=== PATIENT | female | born 1940 | race Caucasian/White ===

== ENCOUNTER 2016-12-07 09:05 | Emergency (ER) | payer MEDICARE, OTHER ==
[~2016-12-07] VITALS: Ht 154.9 cm; Wt 72.6 kg
[~2016-12-07 09:05] MED LIST: ACET325T9 PO; ALLO100T PO; ASPI-482 PO; ASPI325T11 PO; CARV6.252 PO; FERR325T58 PO; FLUT1DIS3 IH; FURO40TA4 PO; IPRA3AMP IH; LINA5TAB PO; LISI-334 PO; LISI10TA2 PO; LISI30TA4 PO; METF500T4 PO; OMEP20TA PO; PRAV10TA2 PO; PRED-220 PO; SUCR1TAB29 PO; advair; nebulizer
--- NOTE | 2016-12-07 09:30 | PHYS DOC ---
Past Medical History Past Medical History: CHF, COPD, High Cholesterol, Hypertension Past Surgical History: No Surgical History Alcohol Use: None Drug Use: None Adult General Chief Complaint Chief Complaint: SKIN PROBLEM HPI HPI Patient is a 76 year old female who presents emergency Department today for which she states is a yeast infection to her skin under her breast, abdominal folds in between her thighs. Patient states this is been ongoing and progressive over the past 2-1/2-3 weeks. She denies using any antifungal powder. She denies taking any antifungal's. She denies antibiotic use within the past 90 days. She denies any history of recurrent skin infections. She denies fevers, chills, myalgias or arthralgias. Patient has COPD and which she is oxygen dependent. She denies any shortness of breath, chest pain, exertional dyspnea, orthopnea or PND. Review of Systems Review of Systems Constitutional: Denies fever or chills [] Eyes: Denies change in visual acuity, redness, or eye pain [] HENT: Denies nasal congestion or sore throat [] Respiratory: Denies cough or shortness of breath [] Cardiovascular: No additional information not addressed in HPI [] GI: Denies abdominal pain, nausea, vomiting, bloody stools or diarrhea [] : Denies dysuria or hematuria [] Musculoskeletal: Denies back pain or joint pain [] Integument: Denies rash or skin lesions [] Neurologic: Denies headache, focal weakness or sensory changes [] Endocrine: Denies polyuria or polydipsia [] Current Medications Current Medications Current Medications Medications (Trade) Dose Ordered [facility] Start Time Stop Time Status Last Admin Dose Admin Fluconazole (Diflucan) 150 mg 1X ONCE 12/07/16 10:15 12/07/16 10:16 12/07/16 10:00 150 MG Allergies Allergies Allergies Coded Allergies Type Severity Reaction Last Updated Verified No Known Drug Allergies 05/06/15 No Physical Exam Physical Exam Constitutional: Well developed, well nourished, no acute distress, non-toxic appearance. Patient exhibits no evidence of respiratory distress or respiratory fatigue. Patient is afebrile and hemodynamically stable. HENT: Normocephalic, atraumatic, bilateral external ears normal, oropharynx moist, no oral exudates, nose normal. [] Eyes: PERRLA, EOMI, conjunctiva normal, no discharge. [] Neck: Normal range of motion, no tenderness, supple, no stridor. [] Cardiovascular:Heart rate regular rhythm, no murmur [] Lungs & Thorax: Bilateral breath sounds clear to auscultation [] Abdomen: Bowel sounds normal, soft, no tenderness, no masses, no pulsatile masses. [] Skin: Patient has quite a bit of skin breakdown that is erythematous and moist under both breast, abdominal pannus and bilateral thighs/groin. There are satellite lesions consistent with yeast dermatitis. Back: No tenderness, no CVA tenderness. [] Extremities: No tenderness, no cyanosis, no clubbing, ROM intact, no edema. [] Neurologic: Alert and oriented X 3, normal motor function, normal sensory function, no focal deficits noted. [] Psychologic: Affect normal, judgement normal, mood normal. [] Current Patient Data Vital Signs Vital Signs Date Time Temp Pulse Resp B/P Pulse Ox O2 Delivery O2 Flow Rate FiO2 12/07/16 10:06 88 20 96/47 96 Nasal Cannula 4 12/07/16 09:19 98.2 98.2 EKG EKG [] Radiology/Procedures Radiology/Procedures [] Course & Med Decision Making Course & Med Decision Making [id number]: Phone call was made to Dr. Gay's office to close the loop so the patient can be seen Monday for follow-up. It has been greater than 30 minutes since the phone call was made to Dr. Gay's office. Dragon Disclaimer Dragon Disclaimer This electronic medical record was generated, in whole or in part, using a voice recognition dictation system. Departure Departure Impression: Primary Impression: Yeast dermatitis Disposition: HOME, SELF-CARE Condition: STABLE Referrals: AMISHA GAY MD (PCP) Patient Instructions: Cellulitis, [id number], Yeast Infection of the Skin, [id number] Additional Instructions: 1. Take the medication as prescribed. 2. Review the discharge instructions provided for self-care and reasons to return to the emergency department. 3. Call Dr. Gay's office this afternoon to schedule follow-up appointment to be seen by Monday for recheck. Scripts Sulfamethoxazole/Trimethoprim (Bactrim Ds Tablet)1 Each Tablet1 Tab PO BID #20 TAB Prov:ZAIRA HOBBS 12/07/16 Nystatin 15 Gm [id number] Gm TP BID #60 Ref 2 Prov:ZAIRA HOBBS 12/07/16 ZIARA HOBBS Dec 07, 2016 09:30
[2016-12-07] MEDS ORDERED: SULF1TAB24 PO (10:14)
[2016-12-07] MEDS ORDERED: NYST30PO9 TP (10:14)
[2016-12-07] MEDS ORDERED: FLUCONAZOLE 100 MG TABLET. PO ONE (10:15)
[2016-12-07 10:16] VITALS: BP 97/52
== END 2016-12-07 10:30 | disposition home or self-care (01) ==
LOC: ER 09:05
DX: B37.2 Candidiasis of skin and nail (principal); L30.9 Dermatitis, unspecified; I11.0 Hypertensive heart disease with heart failure; I50.9 Heart failure, unspecified; E78.00 Pure hypercholesterolemia, unspecified; J44.9 Chronic obstructive pulmonary disease, unspecified; Z99.81 Dependence on supplemental oxygen
CPT/HCPCS: 99284

== ENCOUNTER 2016-12-08 19:33 | Inpatient (IN) | payer MEDICARE, OTHER ==
[~2016-12-08] VITALS: Ht 154.9 cm; Wt 75.4 kg
[~2016-12-08 19:33] MED LIST changes: +NYST30PO9 TP; +SULF1TAB24 PO
[2016-12-08] MEDS ORDERED: VANCOMYCIN PER PHARMACY MC PRN (19:45)
[2016-12-08] MEDS ORDERED: FENTANYL PF 100 MCG/2 ML VIAL. IV PRN ×2 (19:45→21:30)
[2016-12-08] MEDS ORDERED: ONDANSETRON PF 4 MG/2 ML VIAL. IV ONE (20:00)
[2016-12-08] MEDS ORDERED: IV NORMAL SALINE 1000ML BAG 1,000 ML IV SCH (20:00)
[2016-12-08 20:06] LABS: BASO # 0.1 x10^3/uL (0.0-0.2); BASO % 1 % (0-3); EOS % 1 % (0-3); HEMATOCRIT 25.5 % (36.0-47.0); HEMOGLOBIN 8.9 g/dL (12.0-15.5); LYMPH # 1.8 x10^3/uL (1.0-4.8); LYMPH % 11 % (24-48); MEAN CORPUSCULAR HEMOGLOBIN 32 pg (25-35); MEAN CORPUSCULAR HGB CONC 35 g/dL (31-37); MEAN CORPUSCULAR VOLUME 90 fL (79-100); MONO % 6 % (0-9); NEUT % 82 % (31-73); PLATELET COUNT 233 x10^3/uL (140-400); RED BLOOD COUNT 2.82 x10^6/uL (3.50-5.40); RED CELL DISTRIBUTION WIDTH 16.3 % (11.5-14.5); WHITE BLOOD COUNT 15.9 x10^3/uL (4.0-11.0)
[2016-12-08] MEDS ORDERED: CEFTRIAXONE 1GM IVPB FOR OMNI 50 ML IV ONE (20:15)
[2016-12-08] MEDS ORDERED: NYSTATIN TOPICAL POWDER 15GM BOTTLE. TP SCH (20:15)
[2016-12-08 20:22] LABS: PLT ESTIMATE ADEQUATE (ADEQUATE); POLYCHROMASIA SLIGHT; TOXIC GRANULATION SLIGHT
[2016-12-08] MEDS ORDERED: VANCOMYCIN 1.75 GM in IV NORMAL SALINE 500ML BAG 500 ML IV ONE (20:30)
--- NOTE | 2016-12-08 20:32 | PHYS DOC ---
Past Medical History Past Medical History: CHF, COPD, High Cholesterol, Hypertension Past Surgical History: No Surgical History Alcohol Use: None Drug Use: None Adult General Chief Complaint Chief Complaint: SKIN PROBLEM HPI HPI Patient is a 76 year old female who presents by EMS for fatigue and and diffuse painful skin rash. She states her rash has been present and worsening for greater than the past 2 weeks. She has constant pain to these areas. She was seen here yesterday and diagnosed with yeast infection with bacterial superinfection. She started bactrim and nystatin powder yesterday. She notes fatigue starting overnight and today. She denies fever or chills, nausea or vomiting (although she has an episode of emesis soon after arrival), chest pain , dyspnea, dysuria, diarrhea, headache, dizziness. Review of Systems Review of Systems Constitutional: Denies fever or chills [] Eyes: Denies change in visual acuity, redness, or eye pain [] HENT: Denies nasal congestion or sore throat [] Respiratory: Denies cough or shortness of breath [] Cardiovascular: No additional information not addressed in HPI [] GI: Denies abdominal pain, nausea, vomiting, bloody stools or diarrhea [] : Denies dysuria or hematuria [] Musculoskeletal: Denies back pain or joint pain [] Integument: Has rash [] Neurologic: Denies headache, focal weakness or sensory changes [] Endocrine: Denies polyuria or polydipsia [] Current Medications Current Medications Current Medications Medications (Trade) Dose Ordered Sig/Eva Start Time Stop Time Status Last Admin Dose Admin Acetaminophen (Tylenol) 650 mg PRN Q4HRS PRN 12/08/16 21:30 12/09/16 21:29 Ceftriaxone Sodium 1 gm/ Sodium Chloride 50 ml @ 100 mls/hr Q24H 12/09/16 20:00 Ceftriaxone Sodium 50 ml @ 100 mls/hr 1X ONCE 12/08/16 20:15 12/08/16 20:44 DC 12/08/16 20:23 100 MLS/HR Fentanyl Citrate (Fentanyl 2ml Vial) 25 mcg PRN Q15MIN PRN 12/08/16 19:45 12/09/16 19:44 12/08/16 20:37 25 MCG Fentanyl Citrate 50 mcg 50 mcg PRN Q2HR PRN 12/08/16 21:30 12/09/16 21:29 Fluconazole/ Sodium Chloride (Diflucan 200mg/ 100ml Premix) 100 ml @ 100 mls/hr Q24H 12/09/16 21:00 Fluconazole/ Sodium Chloride (Diflucan 400mg/ 200ml Premix) 200 ml @ 100 mls/hr Q24H 12/08/16 21:00 12/08/16 22:00 12/08/16 21:00 100 MLS/HR Nystatin 1 jaison 1 jaison BID 12/08/16 20:15 12/08/16 20:24 1 JAISON Ondansetron HCl (Zofran) 4 mg PRN Q8HRS PRN 12/08/16 21:30 12/09/16 21:29 Sodium Chloride (Iv Sodium Chloride 0.9% 1000ml Bag) 1,000 ml @ 125 mls/hr Q8H 12/08/16 21:30 12/09/16 21:29 Vancomycin HCl 1.75 gm/Sodium Chloride 500 ml @ 250 mls/hr 1X ONCE 12/08/16 20:30 12/08/16 22:29 12/08/16 20:19 250 MLS/HR Vancomycin HCl 1 each 1 each 1X ONCE 12/10/16 20:00 12/10/16 20:01 Allergies Allergies Allergies Coded Allergies Type Severity Reaction Last Updated Verified No Known Drug Allergies 05/06/15 No Physical Exam Physical Exam Constitutional: Well developed, well nourished, no acute distress. [] HENT: Normocephalic, atraumatic, bilateral external ears normal, oropharynx moist, nose normal. [] Eyes: PERRLA, EOMI. [] Neck: Normal range of motion, supple. [] Cardiovascular:Heart rate regular rhythm [] Lungs & Thorax: Bilateral breath sounds clear to auscultation [] Abdomen: Bowel sounds normal, soft, no tenderness. [] Skin: Warm, dry. Has diffuse macerated erythematous skin breakdown with plaques at edges along thorax folds of breasts and pannus and mons, appropriate tenderness, no fluctuance, no crepitance [] Back: No tenderness, no CVA tenderness. [] Extremities: No tenderness, ROM intact, no edema. [] Neurologic: Alert and oriented X 3, normal motor function, normal sensory function, no focal deficits noted. [] Psychologic: Affect normal, judgement normal, mood normal. [] Current Patient Data Vital Signs Vital Signs Date Time Temp Pulse Resp B/P Pulse Ox O2 Delivery O2 Flow Rate FiO2 12/08/16 21:08 66 18 87/43 95 12/08/16 20:12 Room Air 12/08/16 19:40 98.4 4 98.4 Lab Values Laboratory Tests Test 12/08/16 19:50 12/08/16 20:25 12/08/16 20:59 White Blood Count 15.9x10^3/uL (4.0-11.0) H Red Blood Count 2.82x10^6/uL (3.50-5.40) L Hemoglobin 8.9g/dL (12.0-15.5) L Hematocrit 25.5% (36.0-47.0) L Mean Corpuscular Volume 90fL (79-100) Mean Corpuscular Hemoglobin 32pg (25-35) Mean Corpuscular Hemoglobin Concent 35g/dL (31-37) Red Cell Distribution Width 16.3% (11.5-14.5) H Platelet Count 233x10^3/uL (140-400) Neutrophils (%) (Auto) 82% (31-73) H Lymphocytes (%) (Auto) 11% (24-48) L Monocytes (%) (Auto) 6% (0-9) Eosinophils (%) (Auto) 1% (0-3) Basophils (%) (Auto) 1% (0-3) Neutrophils # (Auto) 13.0x10^3uL (1.8-7.7) H Lymphocytes # (Auto) 1.8x10^3/uL (1.0-4.8) Monocytes # (Auto) 0.9x10^3/uL (0.0-1.1) Eosinophils # (Auto) 0.1x10^3/uL (0.0-0.7) Basophils # (Auto) 0.1x10^3/uL (0.0-0.2) Segmented Neutrophils % 60% (35-66) Band Neutrophils % 24% (0-9) H Lymphocytes % 12% (24-48) L Monocytes % 4% (0-10) Toxic Granulation Slight Platelet Estimate Adequate (ADEQUATE) Polychromasia Slight Sodium Level 135mmol/L (136-145) L Potassium Level 4.3mmol/L (3.5-5.1) Chloride Level 100mmol/L (98-107) Carbon Dioxide Level 17mmol/L (21-32) L Anion Gap 18 (6-14) H Blood Urea Nitrogen 69mg/dL (7-20) H Creatinine 4.4mg/dL (0.6-1.0) H Estimated GFR (Cockcroft-Gault) 9.7 Glucose Level 107mg/dL (70-99) H Lactic Acid Level 2.6mmol/L (0.4-2.0) H Calcium Level 7.9mg/dL (8.5-10.1) L Urine Collection Type U cath Urine Color Dk yellow Urine Clarity Cloudy Urine pH 5.0 Urine Specific [place] 1.025 Urine Protein Negativemg/dL (NEG-TRACE) Urine Glucose (UA) Negativemg/dL (NEG) Urine Ketones (Stick) Negativemg/dL (NEG) Urine Blood Negative (NEG) Urine Nitrite Negative (NEG) Urine Bilirubin Large (NEG) Urine Urobilinogen Dipstick 0.2mg/dL (0.2 mg/dL) Urine Leukocyte Esterase Moderate (NEG) Urine RBC 0/HPF (0-2) Urine WBC 20-40/HPF (0-4) Urine Squamous Epithelial Cells Few/LPF Urine Transitional Epithelial Cells Occ/LPF Urine Renal Epithelial Cells Occ/LPF Urine Bacteria Few/HPF (0-FEW) Urine Mucus Slight/LPF Laboratory Tests 12/08/16 19:50 Laboratory Tests 12/08/16 20:25 EKG EKG EKG as interpreted by me as normal sinus rhythm, rate 67, no ST-T changes, normal intervals, no ectopy Course & Med Decision Making Course & Med Decision Making Pertinent Labs and Imaging studies reviewed. (See chart for details) Has lactic acidosis, leukocytosis and acute renal failure consistent with severe sepsis. Appears fluid responsive at this time. Fluids started to equal 30cc/kg; she is approx 3/4 through fluids but still with hypotension, will start levophed. Given Rocephin, Vanc, and Fluconazole for suspected yeast infection with superimposed bacterial infection of skin. Will admit to ICU. Discussed case with Dr. Fitch, who will admit. Consult placed to ID and Nephrology. John Disclaimer Felishaon Disclaimer This electronic medical record was generated, in whole or in part, using a voice recognition dictation system. Departure Departure Impression: Primary Impression: Severe sepsis Additional Impressions: Yeast dermatitis Cellulitis Acute renal failure Disposition: ADMITTED INPATIENT Condition: CRITICAL Referrals: AMISHA HARDY MD (PCP) Problem Qualifiers Additional Impressions: Cellulitis Site of cellulitis: trunk Site of cellulitis of trunk: unspecified site Qualified Code: L03.319 - Cellulitis of trunk, unspecified Acute renal failure Acute renal failure type: unspecified Qualified Code: N17.9 - Acute kidney failure, unspecified Dedra FERNÁNDEZ MD Dec 08, 2016 20:32
[2016-12-08 20:45] LABS: CALCIUM 7.9 mg/dL (8.5-10.1); CREATININE 4.4 mg/dL (0.6-1.0); GFR 9.7; POTASSIUM 4.3 mmol/L (3.5-5.1)
[2016-12-08] MEDS ORDERED: IV NORMAL SALINE 1000ML BAG 1,000 ML IV ONE (21:00)
[2016-12-08] MEDS ORDERED: FLUCONAZOLE 400MG/200ML PREMIX 200 ML IV SCH (21:00)
[2016-12-08 21:07] LABS: BILIRUBIN,URINE LARGE (NEG); GLUCOSE,URINE NEGATIVE (NEG); NITRITE,URINE NEGATIVE (NEG); PROTEIN,URINE NEGATIVE (NEG-TRACE); UROBILINOGEN,URINE 0.2 mg/dL (0.2 mg/dL)
[2016-12-08 21:18] LABS: BACTERIA,URINE FEW /HPF (0-FEW); RBC,URINE 0 /HPF (0-2); SQUAMOUS EPITHELIAL CELL,UR FEW /LPF; WBC,URINE 20-40 /HPF (0-4)
[2016-12-08] MEDS ORDERED: ACETAMINOPHEN 325 MG TABLET. PO PRN (21:30)
[2016-12-08] MEDS ORDERED: ONDANSETRON PF 4 MG/2 ML VIAL. IV PRN (21:30)
[2016-12-08] MEDS ORDERED: NOREPINEPHRINE VIAL 8 MG in IV NORMAL SALINE 250ML 250 ML IV ONE (22:00)
[2016-12-08] MEDS: IV NORMAL SALINE 1000ML BAG 1,000 ML IV SCH (22:10)
--- NOTE | 2016-12-08 22:22 | ACF ---
Admission Forms Criteria SEVERE SEPSIS Clinical Indications for Admission to Inpatient Care (Place 'X' for any and all applicable criteria): Hospital admission is needed for appropriate care of the patient because of ANY ONE of the following: [X]I. Hemodynamic instability indicated by ANY ONE of the following(1)(2)(3)( 4)(5): []a. Vital sign abnormality not readily corrected by appropriate treatment within 12 to 24 hours indicated by ANY ONE of the following: []i) Tachycardia that persists despite appropriate treatment []ii) Hypotension that persists despite appropriate treatment []iii) Orthostatic vital sign changes that persist despite appropriate treatment [X]b. Vital sign abnormality that is severe indicated by ANY ONE of the following: [X]i. Inadequate perfusion indicated by ANY ONE of the following: [X]1) Lactic acidosis (greater than 2 mmol/L) []2) New abnormal capillary refill (greater than 3 seconds) []3) Reduced urine output []4) New altered mental status []5) Myocardial Ischemia []ii. Mean arterial pressure [A] less than 60 mm Hg []iii. Mean arterial pressure[A] less than 70 mm Hg after 30 minutes of appropriate treatment (eg, fluid resuscitation) []iv. Sustained heart rate greater than 120 beats per minute in adult []v. IV inotropic or vasopressor medication required to maintain adequate blood pressure or perfusion []II. Systemic or infectious condition causing severe symptoms or findings not responsive to emergency or observation care treatment (as appropriate) indicated by ANY ONE of the following: []a. Cardiac arrhythmias of immediate concern(1)(2)(3) []b. Severe endocrine disorder (eg, thyrotoxicosis, adrenal insufficiency)(4)(5) []c. Seizures (eg, new or recurrent)(6) []d. New-onset end organ failure or dysfunction as indicated by ANY ONE of the following: []i. Acute unexplained hypoxemia (eg, not from lung infection or chronic disease)(7)(8)(9) []ii. Acute renal failure as indicated by new onset of ANY ONE of the following(10)(11)(12)(13)(14): []1) 3-fold rise in serum creatinine from baseline []2) Serum creatinine greater than 4 mg/dL (354 micromoles/L) with acute rise greater than 0.5 mg/dL (44.2 micromoles/L) []3) Reduction of more than 75% in estimated glomerular filtration rate from baseline. []4) Estimated glomerular filtration rate less than 35 mL/min/1.73m2 ( 0.59 mL/sec/1.73m2) in child younger than 18 years. []5) Cessation of urine output indicated by ALL of the following: []A. Adequate volume status []B. Inadequate urine output as indicated by ANY ONE of the following: []a. Urine output less than 0.3 mL/kg/hr for 24 hours []b. Anuria (urine output less than 0.1 mL/kg/hr) for 12 hours []iii. Acute mental status changes(15) []iv. Acute hepatic failure (eg, plasma bilirubin greater than 4 mg/ dL (68 micromoles/L), new INR greater than 2.0)(16)(17) []e. Unmanageable nausea and vomiting(18) []f. New-onset or uncontrolled central diabetes insipidus(19)(20) []g. Clinically significant dehydration(18)(21) []h. Hypoglycemia(22) []i. Acidosis (pH less than 7.35) or alkalosis (pH greater than 7.45)( 22)(23) []j. Toxic drug level that indicates need for specific monitoring or treatment(24)(25) []k. Severe electrolyte abnormalities indicated by ALL of the following( 1)(2)(3): []i. Electrolytes and associated findings are not as expected for patient baseline or acceptable treatment effects. []ii. Severe abnormalities indicated by ANY ONE of the following: []1) Sodium less than 130 mEq/L (mmol/L) (new) []2) Sodium less than 135 mEq/L (mmol/L) with ANY ONE of the following: []A. Uncorrectable (to near normal or chronic baseline) after trial of outpatient and emergency treatment []B. Altered mental status []C. Seizures []D. Severe medical etiology requiring inpatient management (eg , heart failure, hypovolemia) []3) Sodium greater than 155 mEq/L (mmol/L) []4) Sodium greater than 150 mEq/L (mmol/L) with ANY ONE of the following: []A. Uncorrectable (to near normal or chronic baseline) with outpatient and emergency treatment []B. Altered mental status []C. Seizures []D. Severe medical etiology (eg, hypovolemia, diabetes insipidus) []5) Potassium less than 2.5 mEq/L (mmol/L) despite outpatient and emergency treatment []6) Potassium less than 3 mEq/L (mmol/L) with ANY ONE of the following : []A. Weakness []B. Cardiac abnormality (eg, arrhythmia, conduction disturbance ) []C. Cardiac ischemia []D. Ileus []E. Ongoing medical cause requiring inpatient management (eg, acute renal wasting or SIADH) []F. Other severe symptoms []7) Potassium greater than 6.5 mEq/L (mmol/L) []8) Potassium greater than 5 mEq/L (mmol/L) with ANY ONE of the following: []A. Uncorrectable (to near normal or chronic baseline) with outpatient and emergency treatment []B. Severe ECG findings[A] []C. Acute worsening of renal failure (creatinine greater than 2.5 mg/dL (221 micromoles/L) or significant elevation for age and size) []D. Severe weakness []E. Severe medical etiology (eg, hemolysis, infection, drug overdose) []9) Calcium less than 7 mg/dL (1.75 mmol/L) despite outpatient and emergency treatment(5) []10) Calcium less than 8 mg/dL (2 mmol/L) with significant symptoms or findings (eg, altered mental status, muscle spasms, seizures, breathing difficulty, cardiac abnormality (eg, arrhythmia or conduction disturbance))(5) []11) Calcium greater than 14 mg/dL (3.5 mmol/L)(5) []12) Calcium greater than 12 mg/dL (3 mmol/L) with ANY ONE of the following(5): []A. Uncorrectable (to near normal or chronic baseline) with outpatient and emergency treatment []B. Significant dehydration or hypovolemia as indicated by ALL of the following(3)(6)(7): []a. Not resolved with initial treatments []b. Clinically significant dehydration as indicated by ANY ONE of the following: [](1) Vomiting refractory to outpatient treatment (ie, precluding oral rehydration) [](2) Inability to drink [](3) Hypernatremia or other electrolyte abnormality unable to be corrected with outpatient and emergency treatment [](4) Failure to remain hydrated with outpatient therapy [](5) Reduced urine output [](6) Hypotension [](7) Serious cause for dehydration requiring acute hospitalization ( eg, bowel obstruction, increased intracranial pressure, infectious cause) [](8) Child with ANY ONE of the following(8): [](i) Severe abdominal tenderness [](ii) Adequate care not available at home [](iii) Severe dehydration (greater than 9% loss of body weight) []C. Significant symptoms or findings (eg, altered mental status , cardiac abnormality (eg, arrhythmia, conduction disturbance), malignant etiology requiring inpatient treatment) []13) Phosphorus less than 1 mg/dL (0.32 mmol/L) []14) Phosphorus less than 1.5 mg/dL (0.48 mmol/L) with ANY ONE of the following: []A. Patient unresponsive to outpatient and emergency treatment []B. Significant symptoms or findings (eg, weakness, altered mental status, breathing difficulty, seizures, rhabdomyolysis) []15) Phosphorus greater than 10 mg/dL (3.2 mmol/L) []16) Phosphorus greater than 4.5 mg/dL (1.45 mmol/L) (new) with ANY ONE of the following: []A. Severe medical etiology (eg, crush injury, acute renal failure) []B. Associated hypocalcemia with significant findings (eg, neurologic symptoms, altered mental status, muscle spasms, seizures, breathing difficulty, cardiac abnormality (eg, arrhythmia, conduction disturbance)) []16) Magnesium less than 1 mg/dL (0.41 mmol/L) []17) Magnesium less than 1.5 mg/dL (0.62 mmol/L) with ANY ONE of the following: []A. Patient unresponsive to outpatient and emergency treatment []B. Associated hypocalcemia with significant findings (eg, altered mental status, muscle spasms, seizures, breathing difficulty, cardiac abnormality (eg, arrhythmia, conduction disturbance)) []C. Associated hypokalemia (potassium less than 3 mEq/L (mmol/L )) with risk of arrhythmia []18) Magnesium greater than 4 mEq/L (2 mmol/L) []19) Magnesium greater than 2.5 mEq/L (1.25 mmol/L) with significant symptoms or findings (eg, weakness, altered mental status, cardiac abnormality (eg, arrhythmia, conduction disturbance), breathing difficulty, severe medical etiology (eg, renal failure, hypovolemia)) []20) Uric acid greater than 20 mg/dL (1190 micromoles/L)(9) []21) Uric acid greater than 8 mg/dL (476 micromoles/L) with significant symptoms or findings of tumor lysis syndrome (eg, creatinine greater than 1.5 times upper limit of normal, cardiac abnormality (eg , arrhythmia, conduction disturbance), seizure)(9) []III. High fever or other high-risk infection situation as indicated by ANY ONE of the following(26)(27)(28): []a. Outpatient and observation care antimicrobial treatment unavailable, not effective, or not appropriate []b. Documented bacteremia []c. Temperature greater than 104.9 degrees F (40.5 degrees C) (oral) []d. Temperature greater than 103.1 degrees F (39.5 degrees C) (oral) or less than 96.8 degrees F (36 degrees C) (rectal) that does not respond to emergency treatment and observation care []IV. High-risk febrile neutropenia[A] as indicated by ANY ONE of the following(29)(30)(31)(32): []a. Profound neutropenia[B] anticipated to extend for more than 7 days []b. Hemodynamic instability []c. Hypoxemia []d. Tachypnea []e. Altered mental status []f. New-onset abdominal pain []g. New-onset vomiting or diarrhea []h. Oral or gastrointestinal mucositis that interferes with swallowing or causes severe diarrhea []i. Focal infection (eg, cellulitis, pneumonia, central line or catheter infection, perirectal abscess) []j. Renal insufficiency (eg, GFR of less than 30 mL/min/1.73m2 (0.5 mL/sec /1.73m2)). []k. Severe liver dysfunction (transaminase levels greater than 5 times normal) []l. Platelet count less than 50,000/mm3 (50 x109/L)(33) []m. Leukemia or lymphoma induction therapy []n. Leukemia not in complete remission or with evidence of disease progression []o. Bone marrow transplant patient []p. Alemtuzumab being used for therapy []q. [employer] Association for Supportive Care in Cancer (MASCC) Risk Index score of less than 21[C](33)(35). []V. Isolation required (eg, tuberculosis that requires isolation, Ebola infection)[D](36)(37)(38)(39)(40) []. Gangrene that requires treatment beyond emergency or observation level care(41)(42) []VII. Antitoxin administration and ongoing observation required (eg, tetanus, botulism)(43)(44) []. Suspected infection with rapid progression or severe symptoms as indicated by ANY ONE of the following(45): []a. Streptococcal or staphylococcal toxic shock(46) []b. Diphtheria(47) []c. Hantavirus(48) []d. Severe acute respiratory syndrome(8)(49) []e. Anthrax(50) []f. Ebola[D](36)(37)(38) []g. Necrotizing soft tissue infection(41)(42) []h. Plague(50) []i. Other suspected infection that requires care beyond emergency or observation level care []VII. Severe adverse drug or systemic toxin reaction as indicated by ANY ONE of the following(24): []a. Serotonin syndrome(51)(52) []b. Neuroleptic malignant syndrome(51)(52) []c. Cholinergic syndrome with severe symptoms (eg, bronchorrhea, weakness , mental status changes, seizures)(53) []d. Anticholinergic syndrome []e. Sympathetic syndrome with severe symptoms (eg, seizures, mental status changes, cardiac dysrhythmias) []f. Other severe adverse drug or systemic toxin reaction that remains after emergency or observation level care (as appropriate) []VIII. Allergic reaction with severe symptoms (not responsive to emergency or observation care treatment as appropriate), including ANY ONE of the following(54): []a. Airway edema (pharyngeal, epiglottic, or laryngeal edema) []b. Stridor []c. Respiratory failure []d. Bronchospasm []e. Hypotension []IX. Environmental emergency (not responsive to emergency or observation care treatment as appropriate) as indicated by ANY ONE of the following(55)(56): []a. Hyperthermia []b. Heat stroke []c. Heat exhaustion []d. Hypothermia (temperature less than 95 degrees F (35 degrees C) rectal) (57) []e. Electrocution(58) []X. Complications of transplanted organ (ie, not covered elsewhere)[E] indicated by ANY ONE of the following(59): []a. Acute graft rejection (or graft vs. host disease)[F] requiring inpatient management (eg, intravenous immunosuppression)(60)(61)(62)( 63) []b. Acute failure of transplanted organ necessitating inpatient care (eg, cannot be managed in other setting) []c. Infection requiring inpatient management (eg, Hemodynamic instability, need for intravenous antimicrobial treatment)(64)(65) []d. Other complication of transplanted organ requiring inpatient management []XI. Systemic or Infectious Condition condition, symptom, or finding for which emergency and observation care have failed or are not considered appropriate. See General Criteria: Observation Care, General Admission Criteria or Pediatric General Admission Criteria guideline as appropriate. (Contents from SEVERE SEPSIS and SYSTEMIC OR INFECTIOUS CONDITION clinical indications for admission to inpatient care have been integrated in this form) The original [facility] content created by [facility] has been revised. The portions of the content which have been revised are identified through the use of italic text or in bold and [facility] has neither reviewed nor approved the modified material. All other unmodified content is copyright [facility]. Please see references footnoted in the original [facility] edition 2016 Admission Criteria Met?: Yes FRANKLIN TRAORE Dec 08, 2016 22:22
[2016-12-08 22:45] VITALS: BP 83/43
[2016-12-08 23:00] VITALS: BP 84/36
[2016-12-08 23:15] VITALS: BP 84/36
[2016-12-08 23:30] VITALS: BP 90/43
[2016-12-09] VITALS (27 sets, daily range): BP systolic 77–134; BP diastolic 39–58
[2016-12-09] MEDS: IV NORMAL SALINE 1000ML BAG 1,000 ML IV SCH (05:42)
--- NOTE | 2016-12-09 06:35 | EKG ---
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
--- NOTE | 2016-12-09 07:41 | RAD ---
Indication possible sepsis. A single view of the chest was obtained and is compared to an examination October 07, 2016. Again there are probable chronic background changes of emphysema or fibrosis. There has, however, relative to the previous exam, been an increase in the interstitial prominence. Findings are suggestive of superimposed congestive heart failure or an inflammatory process, interstitial pneumonitis. There is no consolidated pneumonia seen. Significant pleural fluid is not present and there is no pneumothorax. Degenerative changes about the shoulders are noted. Heart size is unchanged. Slightly tortuous thoracic aorta noted. IMPRESSION: Increase in interstitial prominence relative to the previous exam suggesting interstitial edema or interstitial pneumonitis
[2016-12-09] MEDS ORDERED: ONDANSETRON PF 4 MG/2 ML VIAL. IV PRN (07:52)
--- NOTE | 2016-12-09 07:58 | PDOC ---
Infectious Disease Note Vital Sign Vital Signs Vital Signs Date Time Temp Pulse Resp B/P Pulse Ox O2 Delivery O2 Flow Rate FiO2 12/09/16 06:00 70 33 101/52 96 Nasal Cannula 4.0 12/09/16 04:00 97.9 97.9 Labs Lab Laboratory Tests Test 12/08/16 19:50 12/08/16 20:25 12/08/16 20:59 12/09/16 00:20 White Blood Count 15.9x10^3/uL (4.0-11.0) Red Blood Count 2.82x10^6/uL (3.50-5.40) Hemoglobin 8.9g/dL (12.0-15.5) Hematocrit 25.5% (36.0-47.0) Mean Corpuscular Volume 90fL (79-100) Mean Corpuscular Hemoglobin 32pg (25-35) Mean Corpuscular Hemoglobin Concent 35g/dL (31-37) Red Cell Distribution Width 16.3% (11.5-14.5) Platelet Count 233x10^3/uL (140-400) Neutrophils (%) (Auto) 82% (31-73) Lymphocytes (%) (Auto) 11% (24-48) Monocytes (%) (Auto) 6% (0-9) Eosinophils (%) (Auto) 1% (0-3) Basophils (%) (Auto) 1% (0-3) Neutrophils # (Auto) 13.0x10^3uL (1.8-7.7) Lymphocytes # (Auto) 1.8x10^3/uL (1.0-4.8) Monocytes # (Auto) 0.9x10^3/uL (0.0-1.1) Eosinophils # (Auto) 0.1x10^3/uL (0.0-0.7) Basophils # (Auto) 0.1x10^3/uL (0.0-0.2) Segmented Neutrophils % 60% (35-66) Band Neutrophils % 24% (0-9) Lymphocytes % 12% (24-48) Monocytes % 4% (0-10) Toxic Granulation Slight Platelet Estimate Adequate (ADEQUATE) Polychromasia Slight Sodium Level 135mmol/L (136-145) Potassium Level 4.3mmol/L (3.5-5.1) Chloride Level 100mmol/L (98-107) Carbon Dioxide Level 17mmol/L (21-32) Anion Gap 18 (6-14) Blood Urea Nitrogen 69mg/dL (7-20) Creatinine 4.4mg/dL (0.6-1.0) Estimated GFR (Cockcroft-Gault) 9.7 Glucose Level 107mg/dL (70-99) Lactic Acid Level 2.6mmol/L (0.4-2.0) 1.6mmol/L (0.4-2.0) Calcium Level 7.9mg/dL (8.5-10.1) Urine Collection Type U cath Urine Color Dk yellow Urine Clarity Cloudy Urine pH 5.0 Urine Specific [place] 1.025 Urine Protein Negativemg/dL (NEG-TRACE) Urine Glucose (UA) Negativemg/dL (NEG) Urine Ketones (Stick) Negativemg/dL (NEG) Urine Blood Negative (NEG) Urine Nitrite Negative (NEG) Urine Bilirubin Large (NEG) Urine Urobilinogen Dipstick 0.2mg/dL (0.2 mg/dL) Urine Leukocyte Esterase Moderate (NEG) Urine RBC 0/HPF (0-2) Urine WBC 20-40/HPF (0-4) Urine Squamous Epithelial Cells Few/LPF Urine Transitional Epithelial Cells Occ/LPF Urine Renal Epithelial Cells Occ/LPF Urine Bacteria Few/HPF (0-FEW) Urine Mucus Slight/LPF Objective Assessment Hypotension likely sec to hypotension Extensive yeast infection in skin folds REY on CRI Debility Weakness CHF COPD UTI Plan Plan of Care fluids diflucan rocephine d/c vanc check cultures supportive care d/w daughter OPAL NORTON MD Dec 09, 2016 07:58
[2016-12-09] MEDS ORDERED: MORPHINE SULFATE 2 MG/ML DISP.SYRIN. IV PRN (08:00)
[2016-12-09] MEDS ORDERED: OXYCODONE/APAP 5/325 TABLET. PO PRN (08:00)
[2016-12-09] MEDS ORDERED: DEXTROSE 50% 25 GM / 50ML DISP.SYRIN. IV PRN ×2 (08:00→08:30)
[2016-12-09] MEDS ORDERED: ALBUTEROL SULFATE 2.5 MG/3 ML NEBU. INH PRN (08:00)
[2016-12-09] MEDS ORDERED: INSULIN ASPART 300 UNITS/3 ML INSULN.PEN SQ SCH (08:00)
--- NOTE | 2016-12-09 08:01 | PDOC1 ---
History and Physical Date of Admission Date of Admission DATE: 12/09/16 TIME: 08:00 Identification/Chief Complaint Chief Complaint rash, pain Source Source: Chart review, Patient History of Present Illness History of Present Illness Ms. Schwartz, is a 76 year old female admitted from ER for sepsis presented complaining of marked worse skin pain with new fatigue and and diffuse painful skin rash. PCP is Dr. Gay, and she was to be seen in their office today This rash has worsened past 2 weeks. Was pink, now is red and hot and weeping from under breasts and in groin She vomited X1 yesterday, poor PO intake pain 04/27 She started bactrim and nystatin powder yesterday. S Past Medical History Cardiovascular: CAD, CHF, HTN, Hyperlipidemia Pulmonary: COPD, Other CENTRAL NERVOUS SYSTEM: Periperal neuropathy GI: No pertinent hx Heme/Onc: Anemia NOS Hepatobiliary: No pertinent hx Psych: No pertinent hx Musculoskeletal: Osteoarthritis Rheumatologic: No pertinent hx Infectious disease: No pertinent hx Renal/: No pertinent hx Endocrine: Diabetes Past Surgical History Past Surgical History: Cholecystectomy, Other Family History Family History: Coronary Artery Disease Social History Smoke: Quit ALCOHOL: none Drugs: None Current Problem List Problem List Problems Medical Problems: (1) Acute renal failure Status: Acute (2) Cellulitis Status: Acute (3) Severe sepsis Status: Acute (4) Yeast dermatitis Status: Acute Problems: Current Medications Current Medications Current Medications Fentanyl Citrate 25 mcg 25 mcg PRN Q15MIN PRN IV PAIN GREATER THAN 3/10 Last administered on 12/08/16 20:37; Start 12/08/16 at 19:45; Stop 12/09/16 at 19:44 Sodium Chloride (Iv Sodium Chloride 0.9% 1000ml Bag) 1,000 ml @ 1,000 mls/hr Q1H IV Last administered on 12/08/16 20:20; Start 12/08/16 at 20:00; Stop at 20:59; Status DC Ondansetron HCl (Zofran) 4 mg 1X ONCE IV Last administered on 12/08/16 20:21 ; Start 12/08/16 at 20:00; Stop 12/08/16 at 20:01; Status DC Nystatin 1 jaison 1 jaison BID TP Last administered on 12/08/16 20:24; Start at 20:15 Ceftriaxone Sodium/Sodium Chloride (Rocephin/Iv Sodium Chloride 0.9% 50ml) 50 ml @ 100 mls/hr Q24H IV ; Start 12/09/16 at 20:00 Vancomycin HCl 1 each 1 each PRN DAILY PRN MC SEE COMMENTS Last administered on 12/08/16 20:57; Start 12/08/16 at 19:45; Stop 12/09/16 at 07:57; Status DC Ceftriaxone Sodium 50 ml @ 100 mls/hr 1X ONCE IV Last administered on 20:23; Start 12/08/16 at 20:15; Stop 12/08/16 at 20:44; Status DC Vancomycin HCl 1.75 gm/Sodium Chloride 500 ml @ 250 mls/hr 1X ONCE IV Last administered on 12/08/16 20:19; Start 12/08/16 at 20:30; Stop 12/08/16 at 22:29 ; Status DC Fluconazole/ Sodium Chloride (Diflucan 400mg/ 200ml Premix) 200 ml @ 100 mls/ hr Q24H IV Last administered on 12/08/16 21:00; Start 12/08/16 at 21:00; Stop 12/08/16 at 22:00; Status DC Vancomycin HCl 1 each 1 each 1X ONCE MC ; Start 12/10/16 at 20:00; Stop at 20:00; Status DC Sodium Chloride 1,000 ml @ 1,000 mls/hr 1X ONCE IV Last administered on 21:02; Start 12/08/16 at 21:00; Stop 12/08/16 at 21:59; Status DC Fluconazole/ Sodium Chloride (Diflucan 200mg/ 100ml Premix) 100 ml @ 100 mls/ hr Q24H IV ; Start 12/09/16 at 21:00 Ondansetron HCl (Zofran) 4 mg PRN Q8HRS PRN IV NAUSEA/VOMITING Last administered on 12/09/16 02:05; Start 12/08/16 at 21:30; Stop 12/09/16 at 07:55 ; Status DC Fentanyl Citrate 50 mcg 50 mcg PRN Q2HR PRN IV PAIN; Start 12/08/16 at 21:30; Stop 12/09/16 at 21:29 Sodium Chloride (Iv Sodium Chloride 0.9% 1000ml Bag) 1,000 ml @ 125 mls/hr Q8H IV Last administered on 12/09/16 05:42; Start 12/08/16 at 21:30; Stop at 21:29 Acetaminophen 650 mg 650 mg PRN Q4HRS PRN PO FEVER; Start 12/08/16 at 21:30; Stop 12/09/16 at 21:29 Norepinephrine Bitartrate/Sodium Chloride (Levophed Vial/ Iv Sodium Chloride 0.9 % 250ml) 258 ml @ 0 mls/hr 1X ONCE IV Last administered on 12/08/16 22:00; Start 12/08/16 at 22:00; Stop 12/08/16 at 22:01; Status DC Ondansetron HCl (Zofran) 4 mg PRN Q6HRS PRN IV NAUSEA/VOMITING 1ST CHOICE; Start 12/09/16 at 07:52 Insulin Aspart (Novolog) 0-9 UNITS TIDWMEALS SQ ; Start 12/09/16 at 08:00; Status UNV Dextrose 12.5 gm PRN Q15MIN PRN IV SEE COMMENTS; Start 12/09/16 at 08:00 Morphine Sulfate 2 mg PRN Q2HR PRN IV PAIN; Start 12/09/16 at 08:00; Status UNV Oxycodone/ Acetaminophen (Percocet 5/325) 1 tab PRN Q6HRS PRN PO PAIN; Start at 08:00; Status UNV Allopurinol (Zyloprim) 100 mg DAILY PO ; Start 12/09/16 at 09:00; Status UNV Aspirin (Ecotrin) 81 mg DAILY PO ; Start 12/09/16 at 09:00; Status UNV Carvedilol (Coreg) 6.25 mg BID PO ; Start 12/09/16 at 09:00; Status UNV Ferrous Sulfate (Feosol) 325 mg DAILY PO ; Start 12/09/16 at 09:00; Status UNV Furosemide (Lasix) 40 mg DAILY PO ; Start 12/09/16 at 09:00; Status UNV Albuterol/ Ipratropium (Duoneb) 3 ml Q4HRS PRN IH CONGESTION; Start 12/09/16 at 08:00; Status UNV Lisinopril (Prinivil) 30 mg DAILY PO ; Start 12/09/16 at 09:00; Status UNV Nystatin (Nystop) 15 jaison BID TP ; Start 12/09/16 at 09:00; Status UNV Non-Formulary Medication 1 puff BID IH ; Start 12/09/16 at 09:00; Status UNV Non-Formulary Medication 1 tab DAILY PO ; Start 12/09/16 at 09:00; Status UNV Active Scripts Active Bactrim Ds Tablet (Sulfamethoxazole/Trimethoprim) 1 Each Tablet 1 Tab PO BID Nystatin 15 Gm Powder 15 Gm TP BID Lisinopril 10 Mg Tablet 30 Mg PO DAILY Reported Tylenol (Acetaminophen) 325 Mg Tablet 650 Mg PO TID PRN PRN Metformin Hcl 500 Mg Tablet 1 Tab PO TID Aspir 81 (Aspirin) 81 Mg Tablet.dr 1 Tab PO DAILY Allopurinol 100 Mg Tablet 1 Tab PO DAILY Iron Supplement (Ferrous Sulfate) 325 Mg Tablet 1 Tab PO DAILY Advair 250-50 Diskus (Fluticasone/Salmeterol) 1 Each Disk.w.dev 1 Puff IH BID Duoneb 0.5-3(2.5) Mg/3 Ml (Albuterol/Ipratropium) 3 Ml Ampul.neb 3 Ml IH Q4HRS PRN Pravastatin Sodium 10 Mg Tablet 1 Tab PO DAILY Carvedilol 6.25 Mg Tablet 1 Tab PO BID Furosemide 40 Mg Tablet 1 Tab PO DAILY Allergies Allergies: Coded Allergies: No Known Drug Allergies (Unverified , 05/06/15) ROS General: YES: Appetite, Chills, Fatigue, Malaise, Night Sweats, No: Other PSYCHOLOGICAL ROS: No: Anxiety, Behavioral Disorder, Concentration difficultie , Decreased libido, Depression, Disorientation, Hallucinations, Hostility, Irritablity, Memory difficulties, Mood Swings, Obsessive thoughts, Other, Physical abuse, Sexual abuse, Sleep disturbances, Suicidal ideation Eyes: No Blurry vision, No Decreased vision, No Double vision, No Dry eyes, No Excessive tearing, No Eye Pain, No Itchy Eyes, No Loss of vision, No Other, No Photophobia, No Scotomata, No Uses contacts, No Uses glasses HEENT: No: Epistaxis, Heacaches, Hearing change, Nasal congestion, Nasal discharge, Oral lesions, Other, Sinus pain, Sneezing, Snoring, Sore Throat, Tinnitus, Vertigo, Visual Changes, Vocal changes Respiratory: No: Cough, Hemoptysis, Orthopnea, Other, Pleuritic Pain, SOB with excertion, Shortness of breath, Sputum Changes, Stridor, Tachypnea, Wheezing Cardiovascular: No Chest Pain, No Edema, No Lt Headedness, No Orthopnea, No Other, No Palpitations, No Paroxysmal Noc. Dyspnea Gastrointestinal: Yes Nausea, Yes Vomiting, No Abdominal Pain, No Constipation, No Diarrhea, No Hematochezia, No Melena, No Other Genitourinary: No , No , No , No , No , No , No , No Discharge, No Dysuria, No Flank Pain, No Frequency, No Hematuria, No Incontinence, No Other, No Pain, No Retention, No Urgency Musculoskeletal: No Gait Disturbance, No Joint Pain, No Joint Stiffness, No Joint Swelling, No Muscle Pain, No Muscular Weakness, No Other, No Pain In:, No Swelling In: Neurological: No Behavorial Changes, No Bowel/Bladder ControlChng, No Confusion , No Dizziness, No Gait Disturbance, No Headaches, No Impaired Coord/balance, No Memory Loss, No Numbness/Tingling, No Other, No Seizures, No Speech Problems , No Tremors, No Visual Changes, No Weakness Skin: Yes Dry Skin, Yes Other, Yes Pruritus, Yes Rash, Yes Skin Lesion Changes , No Acne, No Eczema, No Hair Changes, No Lumps, No Mole Changes, No Mottling, No Nail Changes Physical Exam General: Alert, Cooperative, mild distress HEENT: Atraumatic, EOMI, Mucous membr. moist/pink Lungs: Clear to auscultation, Normal air movement Heart: S1S2, RRR, no gallops, no murmurs Abdomen: Normal bowel sounds, Soft (NT, NABS) Rectal Exam: not examined Extremities: No clubbing, Normal pulses Skin: Other (extensive rash under breasts, and in umbliicus, and in groin, weeping, some crust) Neuro: Normal speech, Normal tone, Sensation intact Psych/Mental Status: Mental status NL, Mood NL Vitals Vitals Vital Signs Date Time Temp Pulse Resp B/P Pulse Ox O2 Delivery O2 Flow Rate FiO2 12/09/16 06:00 70 33 101/52 96 Nasal Cannula 4.0 12/09/16 04:00 97.9 97.9 Labs Labs Laboratory Tests Test 3/23/17 19:50 12/08/16 20:25 12/08/16 20:59 12/09/16 00:20 White Blood Count 15.9x10^3/uL (4.0-11.0) Red Blood Count 2.82x10^6/uL (3.50-5.40) Hemoglobin 8.9g/dL (12.0-15.5) Hematocrit 25.5% (36.0-47.0) Mean Corpuscular Volume 90fL (79-100) Mean Corpuscular Hemoglobin 32pg (25-35) Mean Corpuscular Hemoglobin Concent 35g/dL (31-37) Red Cell Distribution Width 16.3% (11.5-14.5) Platelet Count 233x10^3/uL (140-400) Neutrophils (%) (Auto) 82% (31-73) Lymphocytes (%) (Auto) 11% (24-48) Monocytes (%) (Auto) 6% (0-9) Eosinophils (%) (Auto) 1% (0-3) Basophils (%) (Auto) 1% (0-3) Neutrophils # (Auto) 13.0x10^3uL (1.8-7.7) Lymphocytes # (Auto) 1.8x10^3/uL (1.0-4.8) Monocytes # (Auto) 0.9x10^3/uL (0.0-1.1) Eosinophils # (Auto) 0.1x10^3/uL (0.0-0.7) Basophils # (Auto) 0.1x10^3/uL (0.0-0.2) Segmented Neutrophils % 60% (35-66) Band Neutrophils % 24% (0-9) Lymphocytes % 12% (24-48) Monocytes % 4% (0-10) Toxic Granulation Slight Platelet Estimate Adequate (ADEQUATE) Polychromasia Slight Sodium Level 135mmol/L (136-145) Potassium Level 4.3mmol/L (3.5-5.1) Chloride Level 100mmol/L (98-107) Carbon Dioxide Level 17mmol/L (21-32) Anion Gap 18 (6-14) Blood Urea Nitrogen 69mg/dL (7-20) Creatinine 4.4mg/dL (0.6-1.0) Estimated GFR (Cockcroft-Gault) 9.7 Glucose Level 107mg/dL (70-99) Lactic Acid Level 2.6mmol/L (0.4-2.0) 1.6mmol/L (0.4-2.0) Calcium Level 7.9mg/dL (8.5-10.1) Urine Collection Type U cath Urine Color Dk yellow Urine Clarity Cloudy Urine pH 5.0 Urine Specific Brandon 1.025 Urine Protein Negativemg/dL (NEG-TRACE) Urine Glucose (UA) Negativemg/dL (NEG) Urine Ketones (Stick) Negativemg/dL (NEG) Urine Blood Negative (NEG) Urine Nitrite Negative (NEG) Urine Bilirubin Large (NEG) Urine Urobilinogen Dipstick 0.2mg/dL (0.2 mg/dL) Urine Leukocyte Esterase Moderate (NEG) Urine RBC 0/HPF (0-2) Urine WBC 20-40/HPF (0-4) Urine Squamous Epithelial Cells Few/LPF Urine Transitional Epithelial Cells Occ/LPF Urine Renal Epithelial Cells Occ/LPF Urine Bacteria Few/HPF (0-FEW) Urine Mucus Slight/LPF Laboratory Tests Test 12/08/16 19:50 12/08/16 20:25 12/08/16 20:59 12/09/16 00:20 White Blood Count 15.9x10^3/uL (4.0-11.0) Red Blood Count 2.82x10^6/uL (3.50-5.40) Hemoglobin 8.9g/dL (12.0-15.5) Hematocrit 25.5% (36.0-47.0) Mean Corpuscular Volume 90fL (79-100) Mean Corpuscular Hemoglobin 32pg (25-35) Mean Corpuscular Hemoglobin Concent 35g/dL (31-37) Red Cell Distribution Width 16.3% (11.5-14.5) Platelet Count 233x10^3/uL (140-400) Neutrophils (%) (Auto) 82% (31-73) Lymphocytes (%) (Auto) 11% (24-48) Monocytes (%) (Auto) 6% (0-9) Eosinophils (%) (Auto) 1% (0-3) Basophils (%) (Auto) 1% (0-3) Neutrophils # (Auto) 13.0x10^3uL (1.8-7.7) Lymphocytes # (Auto) 1.8x10^3/uL (1.0-4.8) Monocytes # (Auto) 0.9x10^3/uL (0.0-1.1) Eosinophils # (Auto) 0.1x10^3/uL (0.0-0.7) Basophils # (Auto) 0.1x10^3/uL (0.0-0.2) Segmented Neutrophils % 60% (35-66) Band Neutrophils % 24% (0-9) Lymphocytes % 12% (24-48) Monocytes % 4% (0-10) Toxic Granulation Slight Platelet Estimate Adequate (ADEQUATE) Polychromasia Slight Sodium Level 135mmol/L (136-145) Potassium Level 4.3mmol/L (3.5-5.1) Chloride Level 100mmol/L (98-107) Carbon Dioxide Level 17mmol/L (21-32) Anion Gap 18 (6-14) Blood Urea Nitrogen 69mg/dL (7-20) Creatinine 4.4mg/dL (0.6-1.0) Estimated GFR (Cockcroft-Gault) 9.7 Glucose Level 107mg/dL (70-99) Lactic Acid Level 2.6mmol/L (0.4-2.0) 1.6mmol/L (0.4-2.0) Calcium Level 7.9mg/dL (8.5-10.1) Urine Collection Type U cath Urine Color Dk yellow Urine Clarity Cloudy Urine pH 5.0 Urine Specific Brandon 1.025 Urine Protein Negativemg/dL (NEG-TRACE) Urine Glucose (UA) Negativemg/dL (NEG) Urine Ketones (Stick) Negativemg/dL (NEG) Urine Blood Negative (NEG) Urine Nitrite Negative (NEG) Urine Bilirubin Large (NEG) Urine Urobilinogen Dipstick 0.2mg/dL (0.2 mg/dL) Urine Leukocyte Esterase Moderate (NEG) Urine RBC 0/HPF (0-2) Urine WBC 20-40/HPF (0-4) Urine Squamous Epithelial Cells Few/LPF Urine Transitional Epithelial Cells Occ/LPF Urine Renal Epithelial Cells Occ/LPF Urine Bacteria Few/HPF (0-FEW) Urine Mucus Slight/LPF VTE Prophylaxis Ordered VTE Prophylaxis Devices: Yes VTE Pharmacological Prophylaxi: Yes Assessment/Plan Assessment/Plan sepsis, fluid given cellulits UTI Vasomotor nephropathy, dehydration, acute renal failure, IV fliud Hypotension, strict I+O, CHF, chronic diastolic, HOLD lasix and lisinopril COPD, stable, cont 02, on home 02 w./ exertion, follows with Dr. Shipley DM2, diet and SSI obesity, BMI 32 admitted to ICU LUKAS DWYER MD Dec 09, 2016 08:01
[2016-12-09] MEDS ORDERED: BUDESONIDE 0.5 MG/2 ML NEBU. NEB SCH (08:30)
[2016-12-09] MEDS ORDERED: CARVEDILOL 6.25 MG TABLET PO SCH (08:30)
[2016-12-09] MEDS ORDERED: DIPHENHYDRAMINE/ZINC ACETATE 2%/0.1% TOPICAL CREAM 28GM TUBE. TP PRN (08:30)
[2016-12-09] MEDS ORDERED: MAGNESIUM SULFATE 2GM 50 ML IV PRN (08:45)
[2016-12-09] MEDS ORDERED: IV NORMAL SALINE 500ML BAG 500 ML IV PRN (08:45)
[2016-12-09] MEDS: FERROUS SULFATE 325 MG TABLET PO SCH (08:53)
[2016-12-09] MEDS: ASPIRIN ENTERIC COATED 81 MG TABLET.DR. PO SCH (08:53)
[2016-12-09] MEDS: ALLOPURINOL 100 MG TABLET. PO SCH (08:54)
[2016-12-09] MEDS: NYSTATIN TOPICAL POWDER 15GM BOTTLE. TP SCH ×4 (08:55→20:35)
[2016-12-09] MEDS ORDERED: LISINOPRIL 10 MG TABLET PO SCH (09:00)
[2016-12-09] MEDS ORDERED: FUROSEMIDE 40 MG TABLET PO SCH (09:00)
[2016-12-09] MEDS ORDERED: NYSTATIN TOPICAL POWDER 15GM BOTTLE. TP SCH (09:00)
--- NOTE | 2016-12-09 09:06 | PDOC2 ---
CONSULT Date of Consult Date of Consult DATE: 12/09/16 TIME: 08:47 Reason for Consult Reason for Consult: REY/ CKD III Referring Physician Referring Physician: Dr Fitch Identification/Chief Complaint Chief Complaint Not feeling well Problems: Source Source: Chart review, Patient History of Present Illness Reason for Visit: as dicated Past Medical History Cardiovascular: CAD, CHF, HTN, Hyperlipidemia Pulmonary: COPD, Other CENTRAL NERVOUS SYSTEM: Periperal neuropathy GI: No pertinent hx Heme/Onc: Anemia NOS Hepatobiliary: No pertinent hx Psych: No pertinent hx Musculoskeletal: Osteoarthritis Rheumatologic: No pertinent hx Infectious disease: No pertinent hx Renal/: No pertinent hx Endocrine: Diabetes Past Surgical History Past Surgical History: Cholecystectomy, Other Family History Family History: Coronary Artery Disease Social History Quit ALCOHOL: none Drugs: None Lives: Alone Domestic Violence: Neg Current Problem List Problem List Problems Medical Problems: (1) Acute renal failure Status: Acute (2) Cellulitis Status: Acute (3) Severe sepsis Status: Acute (4) Yeast dermatitis Status: Acute Current Medications Current Medications Current Medications Fentanyl Citrate 25 mcg 25 mcg PRN Q15MIN PRN IV PAIN GREATER THAN 3/10 Last administered on 12/08/16 20:37; Start 12/08/16 at 19:45; Stop 12/09/16 at 19:44 Sodium Chloride (Iv Sodium Chloride 0.9% 1000ml Bag) 1,000 ml @ 1,000 mls/hr Q1H IV Last administered on 12/08/16 20:20; Start 12/08/16 at 20:00; Stop at 20:59; Status DC Ondansetron HCl (Zofran) 4 mg 1X ONCE IV Last administered on 12/08/16 20:21 ; Start 12/08/16 at 20:00; Stop 12/08/16 at 20:01; Status DC Nystatin 1 jaison 1 jaison BID TP Last administered on 12/08/16 20:24; Start at 20:15; Stop 12/09/16 at 08:28; Status DC Ceftriaxone Sodium/Sodium Chloride (Rocephin/Iv Sodium Chloride 0.9% 50ml) 50 ml @ 100 mls/hr Q24H IV ; Start 12/09/16 at 20:00 Vancomycin HCl 1 each 1 each PRN DAILY PRN MC SEE COMMENTS Last administered on 12/08/16 20:57; Start 12/08/16 at 19:45; Stop 12/09/16 at 07:57; Status DC Ceftriaxone Sodium 50 ml @ 100 mls/hr 1X ONCE IV Last administered on 20:23; Start 12/08/16 at 20:15; Stop 12/08/16 at 20:44; Status DC Vancomycin HCl 1.75 gm/Sodium Chloride 500 ml @ 250 mls/hr 1X ONCE IV Last administered on 12/08/16 20:19; Start 12/08/16 at 20:30; Stop 12/08/16 at 22:29 ; Status DC Fluconazole/ Sodium Chloride (Diflucan 400mg/ 200ml Premix) 200 ml @ 100 mls/ hr Q24H IV Last administered on 12/08/16 21:00; Start 12/08/16 at 21:00; Stop 12/08/16 at 22:00; Status DC Vancomycin HCl 1 each 1 each 1X ONCE MC ; Start 12/10/16 at 20:00; Stop at 20:00; Status DC Sodium Chloride 1,000 ml @ 1,000 mls/hr 1X ONCE IV Last administered on 21:02; Start 12/08/16 at 21:00; Stop 12/08/16 at 21:59; Status DC Fluconazole/ Sodium Chloride (Diflucan 200mg/ 100ml Premix) 100 ml @ 100 mls/ hr Q24H IV ; Start 12/09/16 at 21:00 Ondansetron HCl (Zofran) 4 mg PRN Q8HRS PRN IV NAUSEA/VOMITING Last administered on 12/09/16 02:05; Start 12/08/16 at 21:30; Stop 12/09/16 at 07:55 ; Status DC Fentanyl Citrate 50 mcg 50 mcg PRN Q2HR PRN IV PAIN; Start 12/08/16 at 21:30; Stop 12/09/16 at 21:29 Sodium Chloride (Iv Sodium Chloride 0.9% 1000ml Bag) 1,000 ml @ 125 mls/hr Q8H IV Last administered on 12/09/16 05:42; Start 12/08/16 at 21:30; Stop at 21:29 Acetaminophen 650 mg 650 mg PRN Q4HRS PRN PO FEVER; Start 12/08/16 at 21:30; Stop 12/09/16 at 21:29 Norepinephrine Bitartrate/Sodium Chloride (Levophed Vial/ Iv Sodium Chloride 0.9 % 250ml) 258 ml @ 0 mls/hr 1X ONCE IV Last administered on 12/08/16t 22:00; Start 12/08/16 at 22:00; Stop 12/08/16 at 22:01; Status DC Ondansetron HCl (Zofran) 4 mg PRN Q6HRS PRN IV NAUSEA/VOMITING 1ST CHOICE; Start 12/09/16 at 07:52 Insulin Aspart (Novolog) 0-9 UNITS TIDWMEALS SQ ; Start 12/09/16 at 08:00; Stop 12/09/16 at 08:19; Status DC Dextrose 12.5 gm PRN Q15MIN PRN IV SEE COMMENTS; Start 12/09/16 at 08:00 Morphine Sulfate 2 mg PRN Q2HR PRN IV PAIN SEVERE; Start 12/09/16 at 08:00 Oxycodone/ Acetaminophen (Percocet 5/325) 1 tab PRN Q6HRS PRN PO PAIN MOD TO SEV; Start 12/09/16 at 08:00 Allopurinol (Zyloprim) 100 mg DAILY PO ; Start 12/09/16 at 09:00 Aspirin (Ecotrin) 81 mg DAILY08 PO ; Start 12/09/16 at 09:00 Carvedilol (Coreg) 6.25 mg BIDWMEALS PO ; Start 12/09/16 at 08:30 Ferrous Sulfate (Feosol) 325 mg DAILY08 PO ; Start 12/09/16 at 09:00 Furosemide (Lasix) 40 mg DAILY PO ; Start 12/09/16 at 09:00; Stop 12/09/16 at 09 :00; Status DC Albuterol Sulfate (Ventolin Neb Soln) 2.5 mg PRN Q4HRS PRN INH CONGESTION; Start 12/09/16 at 08:00 Lisinopril (Prinivil) 30 mg DAILY PO ; Start 12/09/16 at 09:00; Stop 12/09/16 at 09:00; Status DC Nystatin (Nystop) 1 jaison BID TP ; Start 12/09/16 at 09:00; Stop 12/09/16 at 09:00 ; Status DC Budesonide (Pulmicort) 0.5 mg RTBID NEB ; Start 12/09/16 at 08:30; Stop at 08:30; Status DC Atorvastatin Calcium (Lipitor) 5 mg QHS PO ; Start 12/09/16 at 21:00 Budesonide (Pulmicort) 0.5 mg RTBID NEB ; Start 12/09/16 at 08:30 Albuterol Sulfate (Ventolin Neb Soln) 2.5 mg RTQID NEB ; Start 12/09/16 at 12:00 ; Stop 12/09/16 at 12:00; Status DC Nystatin (Nystop) 1 jaison QID TP ; Start 12/09/16 at 09:00 Heparin Sodium (Porcine) 5,000 unit BID SQ ; Start 12/09/16 at 09:00 Insulin Aspart (Novolog) 0-7 UNITS TIDWMEALS SQ ; Start 12/09/16 at 12:00 Dextrose 12.5 gm PRN Q15MIN PRN IV SEE COMMENTS; Start 12/09/16 at 08:30; Status UNV Zinc Acetate/ Diphenhydramine (Benadryl Topical) 1 jaison PRN BID PRN TP pruritis ; Start 12/09/16 at 08:30 Albuterol/ Ipratropium (Duoneb) 3 ml RTQID NEB ; Start 12/09/16 at 12:00 Active Scripts Active Bactrim Ds Tablet (Sulfamethoxazole/Trimethoprim) 1 Each Tablet 1 Tab PO BID Nystatin 15 Gm Powder 15 Gm TP BID Lisinopril 10 Mg Tablet 30 Mg PO DAILY Reported Tylenol (Acetaminophen) 325 Mg Tablet 650 Mg PO TID PRN PRN Metformin Hcl 500 Mg Tablet 1 Tab PO TID Aspir 81 (Aspirin) 81 Mg Tablet.dr 1 Tab PO DAILY Allopurinol 100 Mg Tablet 1 Tab PO DAILY Iron Supplement (Ferrous Sulfate) 325 Mg Tablet 1 Tab PO DAILY Advair 250-50 Diskus (Fluticasone/Salmeterol) 1 Each Disk.w.dev 1 Puff IH BID Duoneb 0.5-3(2.5) Mg/3 Ml (Albuterol/Ipratropium) 3 Ml Ampul.neb 3 Ml IH Q4HRS PRN Pravastatin Sodium 10 Mg Tablet 1 Tab PO DAILY Carvedilol 6.25 Mg Tablet 1 Tab PO BID Furosemide 40 Mg Tablet 1 Tab PO DAILY Allergies Allergies: Coded Allergies: No Known Drug Allergies (Unverified , 05/06/15) ROS Review of System GEN: no Fevers no Chills EYES: no new Visual Complaints ENT: no EN Drainage no Hearing deficiets CVS: no Orthopnea no CP RESP: no SOB no MATOS GI: no Nausea + Vomiting : no Dysuria no Urgency HEME: no easy bruising no Palp Ly Nodes NEURO no Focal Weakness no Sz PSYCH: no Suicidal Ideation no Depression SKIN: + intertriginous Rashes ENDO: no Polyuria or Polydipsia no Hot/Cold Intolerance MU SK: occ Arthraigia min Myalgia Physical Exam Physical Exam General Appearance: Awake Alert Oriented x 3 In no Distress Eyes: VIsion Unchanged Conjunctiva Normal EN: No EN Drainage Mucous Memb. dry Neck: no JVD min JVP Supple no Thyromegaly CVS: S1 S2 ? soft Murmur No Gallop No Rub no Edema Resp: no Rales no Rhonchi no Acc. Muscle use GI: BAS +ve NO Bruit Non Tender Non Distended : no CVA tenderness; no Suprapubic Tenderness SKIN: Intertriginous Rashes (under breast and in groin) Breast Exam deferred Mu.Sk: Adequate ROM no Muscle Atrophy Heme: Unable to palpate Obvious LAD no palp Splenomegaly NEURO: Good Strength and Tone Cranial Nerves II - XII grossly intact Psych: not Depressed no Active hallucination Vital Signs Vital Signs Date Time Temp Pulse Resp B/P Pulse Ox O2 Delivery O2 Flow Rate FiO2 12/09/16 06:00 70 33 101/52 96 Nasal Cannula 4.0 12/09/16 04:00 97.9 97.9 Assessment & Plan ARF: suspect Hypovolemia and asso with Bactrim. ATN cannot be ruled out with Persistent Hypotension. Current FLuid and E-lyte status does not necessitate emergent need for Dialysis. Will re-evaluate for Dialysis in am, UA is benign. ? Oliguria - valencia will be placed for accurate monitoring. CKD III - follows with Dr Le, basline is ~ 1.3 WAGMA - IVF with Bicarb for now, No ABG avail; ^ed lactate has resolved ABN CXR - pt reports h/o of mild CHF and sees Dr bergman - will consult Cards and Pulm to help with Sorting this out. No Pulm Fibrosis mentioned on previous CTs. Previous EF was 60%. No reported SOB per se currenlty Anemia: check Iron, start Epogen Transfuse as needed. HypoTN: IVF for now, ? HypoVolemia vs Sepsis. Vol depletion - IVF for now, May need to D./c if resp status begins to worsen Discussed Plan of Care and prognosis etc. at length with family. Labs Labs Laboratory Tests Test 12/08/16 19:50 12/08/16 20:25 12/08/16 20:59 12/09/16 00:20 White Blood Count 15.9x10^3/uL (4.0-11.0) Red Blood Count 2.82x10^6/uL (3.50-5.40) Hemoglobin 8.9g/dL (12.0-15.5) Hematocrit 25.5% (36.0-47.0) Mean Corpuscular Volume 90fL (79-100) Mean Corpuscular Hemoglobin 32pg (25-35) Mean Corpuscular Hemoglobin Concent 35g/dL (31-37) Red Cell Distribution Width 16.3% (11.5-14.5) Platelet Count 233x10^3/uL (140-400) Neutrophils (%) (Auto) 82% (31-73) Lymphocytes (%) (Auto) 11% (24-48) Monocytes (%) (Auto) 6% (0-9) Eosinophils (%) (Auto) 1% (0-3) Basophils (%) (Auto) 1% (0-3) Neutrophils # (Auto) 13.0x10^3uL (1.8-7.7) Lymphocytes # (Auto) 1.8x10^3/uL (1.0-4.8) Monocytes # (Auto) 0.9x10^3/uL (0.0-1.1) Eosinophils # (Auto) 0.1x10^3/uL (0.0-0.7) Basophils # (Auto) 0.1x10^3/uL (0.0-0.2) Segmented Neutrophils % 60% (35-66) Band Neutrophils % 24% (0-9) Lymphocytes % 12% (24-48) Monocytes % 4% (0-10) Toxic Granulation Slight Platelet Estimate Adequate (ADEQUATE) Polychromasia Slight Sodium Level 135mmol/L (136-145) Potassium Level 4.3mmol/L (3.5-5.1) Chloride Level 100mmol/L (98-107) Carbon Dioxide Level 17mmol/L (21-32) Anion Gap 18 (6-14) Blood Urea Nitrogen 69mg/dL (7-20) Creatinine 4.4mg/dL (0.6-1.0) Estimated GFR (Cockcroft-Gault) 9.7 Glucose Level 107mg/dL (70-99) Lactic Acid Level 2.6mmol/L (0.4-2.0) 1.6mmol/L (0.4-2.0) Calcium Level 7.9mg/dL (8.5-10.1) Urine Collection Type U cath Urine Color Dk yellow Urine Clarity Cloudy Urine pH 5.0 Urine Specific [place] 1.025 Urine Protein Negativemg/dL (NEG-TRACE) Urine Glucose (UA) Negativemg/dL (NEG) Urine Ketones (Stick) Negativemg/dL (NEG) Urine Blood Negative (NEG) Urine Nitrite Negative (NEG) Urine Bilirubin Large (NEG) Urine Urobilinogen Dipstick 0.2mg/dL (0.2 mg/dL) Urine Leukocyte Esterase Moderate (NEG) Urine RBC 0/HPF (0-2) Urine WBC 20-40/HPF (0-4) Urine Squamous Epithelial Cells Few/LPF Urine Transitional Epithelial Cells Occ/LPF Urine Renal Epithelial Cells Occ/LPF Urine Bacteria Few/HPF (0-FEW) Urine Mucus Slight/LPF Laboratory Tests Test 12/08/16 19:50 12/08/16 20:25 12/08/16 20:59 12/09/16 00:20 White Blood Count 15.9x10^3/uL (4.0-11.0) Red Blood Count 2.82x10^6/uL (3.50-5.40) Hemoglobin 8.9g/dL (12.0-15.5) Hematocrit 25.5% (36.0-47.0) Mean Corpuscular Volume 90fL (79-100) Mean Corpuscular Hemoglobin 32pg (25-35) Mean Corpuscular Hemoglobin Concent 35g/dL (31-37) Red Cell Distribution Width 16.3% (11.5-14.5) Platelet Count 233x10^3/uL (140-400) Neutrophils (%) (Auto) 82% (31-73) Lymphocytes (%) (Auto) 11% (24-48) Monocytes (%) (Auto) 6% (0-9) Eosinophils (%) (Auto) 1% (0-3) Basophils (%) (Auto) 1% (0-3) Neutrophils # (Auto) 13.0x10^3uL (1.8-7.7) Lymphocytes # (Auto) 1.8x10^3/uL (1.0-4.8) Monocytes # (Auto) 0.9x10^3/uL (0.0-1.1) Eosinophils # (Auto) 0.1x10^3/uL (0.0-0.7) Basophils # (Auto) 0.1x10^3/uL (0.0-0.2) Segmented Neutrophils % 60% (35-66) Band Neutrophils % 24% (0-9) Lymphocytes % 12% (24-48) Monocytes % 4% (0-10) Toxic Granulation Slight Platelet Estimate Adequate (ADEQUATE) Polychromasia Slight Sodium Level 135mmol/L (136-145) Potassium Level 4.3mmol/L (3.5-5.1) Chloride Level 100mmol/L (98-107) Carbon Dioxide Level 17mmol/L (21-32) Anion Gap 18 (6-14) Blood Urea Nitrogen 69mg/dL (7-20) Creatinine 4.4mg/dL (0.6-1.0) Estimated GFR (Cockcroft-Gault) 9.7 Glucose Level 107mg/dL (70-99) Lactic Acid Level 2.6mmol/L (0.4-2.0) 1.6mmol/L (0.4-2.0) Calcium Level 7.9mg/dL (8.5-10.1) Urine Collection Type U cath Urine Color Dk yellow Urine Clarity Cloudy Urine pH 5.0 Urine Specific [place] 1.025 Urine Protein Negativemg/dL (NEG-TRACE) Urine Glucose (UA) Negativemg/dL (NEG) Urine Ketones (Stick) Negativemg/dL (NEG) Urine Blood Negative (NEG) Urine Nitrite Negative (NEG) Urine Bilirubin Large (NEG) Urine Urobilinogen Dipstick 0.2mg/dL (0.2 mg/dL) Urine Leukocyte Esterase Moderate (NEG) Urine RBC 0/HPF (0-2) Urine WBC 20-40/HPF (0-4) Urine Squamous Epithelial Cells Few/LPF Urine Transitional Epithelial Cells Occ/LPF Urine Renal Epithelial Cells Occ/LPF Urine Bacteria Few/HPF (0-FEW) Urine Mucus Slight/LPF Images Images Indication possible sepsis. A single view of the chest was obtained and is compared to an examination October 07, 2016. Again there are probable chronic background changes of emphysema or fibrosis. There has, however, relative to the previous exam, been an increase in the interstitial prominence. Findings are suggestive of superimposed congestive heart failure or an inflammatory process, interstitial pneumonitis. There is no consolidated pneumonia seen. Significant pleural fluid is not present and there is no pneumothorax. Degenerative changes about the shoulders are noted. Heart size is unchanged. Slightly tortuous thoracic aorta noted. IMPRESSION: Increase in interstitial prominence relative to the previous exam suggesting interstitial edema or interstitial pneumonitis HARLAN NORTON MD Dec 09, 2016 09:06
[2016-12-09] MEDS ORDERED: LIDOCAINE 1% / SOD BICARB 8.4% 20 ML VIAL. IJ ONE (09:15)
--- NOTE | 2016-12-09 09:17 | CONS ---
DATE OF CONSULTATION: 12/09/2016 REQUESTING PHYSICIAN: Dr. Bueno. REASON FOR CONSULTATION: Sepsis, yeast infection etc. HISTORY OF PRESENT ILLNESS: This is a 76-year-old female, who lives alone at home, who came in to the ER, first day she was put on Bactrim and discharged. The patient returned and the patient had painful rash under the breasts and in the groin to the point of the breast ____ under the skin and the surface ____. The patient was found to be hypotensive, acute renal failure, leukocytosis, weakness and this extensive yeast infection. The patient is admitted for further management. The patient also had lactic acidosis. The patient continued to take her medication including metformin. PAST MEDICAL HISTORY: Positive for congestive heart failure, COPD, renal insufficiency, hypertension, hyperlipidemia. SOCIAL HISTORY: Negative for smoking, alcohol or illicit drug use. ALLERGIES: No known drug allergies. CURRENT MEDICATIONS: Reviewed. The patient is put on Rocephin, Diflucan and vancomycin. REVIEW OF SYSTEMS: As per HPI, all other systems reviewed are negative. PHYSICAL EXAMINATION: GENERAL: Alert, oriented female, not in distress. VITAL SIGNS: Stable, afebrile. The patient did have the blood pressure as low as 77 systolic. HEENT: Both pupils are round and reacting. No conjunctival lesion, no lesion in the mouth. NECK: Supple, no JVP, no lymphadenopathy. LUNGS: Clear. HEART: S1, S2 regular. ABDOMEN: Benign. EXTREMITIES: No edema, cyanosis. SKIN: The patient does have extensive yeast infection under the breasts bilaterally as well as into the groin with excoriation and even skin breakdown. NEUROLOGIC: The patient is otherwise neurologically intact. LABORATORY DATA: White count is 15.9, hemoglobin 8.9, platelets are normal. BUN 69, creatinine 4.4. Lactic acid was 2.6. Urinalysis showed 20-40 wbc's, leukocyte esterase moderate, nitrite negative, cultures are pending. Chest x-ray personally reviewed. The patient has some chronic changes, no acute infiltrates seen. IMPRESSION: 1. Hypotension, most likely related to dehydration. 2. Extensive yeast infection under the breast and into the groin. 3. Acute kidney injury on CRI. 4. Debility. 5. Weakness. 6. Leukocytosis. 7. Congestive heart failure. 8. Chronic obstructive pulmonary disease. 9. Urinary tract infection. PLAN: Recommend fluids, Diflucan, Rocephin. Discontinue vancomycin. We will check cultures. Supportive care and discussion with the patient's daughter done at the bedside. Thank you very much, Dr. Fitch for giving me the opportunity to participate in this patient's care. Discussion with Dr. Fitch done. OPAL NORTON MD DR: FIOR/rito JOB#: [id number] / [id number]
--- NOTE | 2016-12-09 09:20 | PDOC1 ---
History and Physical Date of Admission Date of Admission DATE: 12/09/16 TIME: 09:09 Identification/Chief Complaint Chief Complaint rash severe in between folds History of Present Illness History of Present Illness Very pleasant 76 y/o female, known to me from past admits always for COPD exacerbation. She would be on high doses steroids and sent home on steroids , the last time I saw her she did gain significant weight and seemingly seems to have developed kelly facies and buffalo hump., Apparently she has been having the skin rash in between intertriginous folds, but "none this bad". RAsh inspected, tender to manipulation and touch, red rash underneath breasts, inbetween groin areas., Fulfilled severe sepsis criteria with tachycardia at er, hypotension, elevated lactate and now needing 18mcgs of levophed gtt., NOt confused, dtr at bedside,.Renal and iD on board, started on broad spectrum and anti fungal. Sees Dewayne Mckay as OP for CKD, CREatinine on arrival is 4, higher than her baseline Past Medical History Cardiovascular: CAD, CHF, HTN, Hyperlipidemia Pulmonary: COPD, Other CENTRAL NERVOUS SYSTEM: Periperal neuropathy GI: No pertinent hx Heme/Onc: Anemia NOS Hepatobiliary: No pertinent hx Psych: No pertinent hx Musculoskeletal: Osteoarthritis Rheumatologic: No pertinent hx Infectious disease: No pertinent hx Renal/: No pertinent hx Endocrine: Diabetes Past Surgical History Past Surgical History: Cholecystectomy, Other Family History Family History: Coronary Artery Disease Social History Smoke: Quit ALCOHOL: none Drugs: None Current Problem List Problem List Problems Medical Problems: (1) Acute renal failure Status: Acute (2) Cellulitis Status: Acute (3) Severe sepsis Status: Acute (4) Yeast dermatitis Status: Acute Problems: Current Medications Current Medications Current Medications Fentanyl Citrate 25 mcg 25 mcg PRN Q15MIN PRN IV PAIN GREATER THAN 3/10 Last administered on 12/08/16 20:37; Start 12/08/16 at 19:45; Stop 12/09/16 at 19:44 Sodium Chloride (Iv Sodium Chloride 0.9% 1000ml Bag) 1,000 ml @ 1,000 mls/hr Q1H IV Last administered on 12/08/16 20:20; Start 12/08/16 at 20:00; Stop at 20:59; Status DC Ondansetron HCl (Zofran) 4 mg 1X ONCE IV Last administered on 12/08/16 20:21 ; Start 12/08/16 at 20:00; Stop 12/08/16 at 20:01; Status DC Nystatin 1 jaison 1 jaison BID TP Last administered on 12/08/16 20:24; Start at 20:15; Stop 12/09/16 at 08:28; Status DC Ceftriaxone Sodium/Sodium Chloride (Rocephin/Iv Sodium Chloride 0.9% 50ml) 50 ml @ 100 mls/hr Q24H IV ; Start 12/09/16 at 20:00 Vancomycin HCl 1 each 1 each PRN DAILY PRN MC SEE COMMENTS Last administered on 12/08/16 20:57; Start 12/08/16 at 19:45; Stop 12/09/16 at 07:57; Status DC Ceftriaxone Sodium 50 ml @ 100 mls/hr 1X ONCE IV Last administered on 20:23; Start 12/08/16 at 20:15; Stop 12/08/16 at 20:44; Status DC Vancomycin HCl 1.75 gm/Sodium Chloride 500 ml @ 250 mls/hr 1X ONCE IV Last administered on 12/08/16 20:19; Start 12/08/16 at 20:30; Stop 12/08/16 at 22:29 ; Status DC Fluconazole/ Sodium Chloride (Diflucan 400mg/ 200ml Premix) 200 ml @ 100 mls/ hr Q24H IV Last administered on 12/08/16 21:00; Start 12/08/16 at 21:00; Stop 12/08/16 at 22:00; Status DC Vancomycin HCl 1 each 1 each 1X ONCE MC ; Start 12/10/16 at 20:00; Stop at 20:00; Status DC Sodium Chloride 1,000 ml @ 1,000 mls/hr 1X ONCE IV Last administered on 21:02; Start 12/08/16 at 21:00; Stop 12/08/16 at 21:59; Status DC Fluconazole/ Sodium Chloride (Diflucan 200mg/ 100ml Premix) 100 ml @ 100 mls/ hr Q24H IV ; Start 12/09/16 at 21:00 Ondansetron HCl (Zofran) 4 mg PRN Q8HRS PRN IV NAUSEA/VOMITING Last administered on 12/09/16 02:05; Start 12/08/16 at 21:30; Stop 12/09/16 at 07:55 ; Status DC Fentanyl Citrate 50 mcg 50 mcg PRN Q2HR PRN IV PAIN; Start 12/08/16 at 21:30; Stop 12/09/16 at 21:29 Sodium Chloride (Iv Sodium Chloride 0.9% 1000ml Bag) 1,000 ml @ 125 mls/hr Q8H IV Last administered on 12/09/16 05:42; Start 12/08/16 at 21:30; Stop at 08:48; Status DC Acetaminophen 650 mg 650 mg PRN Q4HRS PRN PO FEVER; Start 12/08/16 at 21:30; Stop 12/09/16 at 21:29 Norepinephrine Bitartrate/Sodium Chloride (Levophed Vial/ Iv Sodium Chloride 0.9 % 250ml) 258 ml @ 0 mls/hr 1X ONCE IV Last administered on 12/08/16 22:00; Start 12/08/16 at 22:00; Stop 12/08/16 at 22:01; Status DC Ondansetron HCl (Zofran) 4 mg PRN Q6HRS PRN IV NAUSEA/VOMITING 1ST CHOICE Last administered on 12/09/16 09:06; Start 12/09/16 at 07:52 Insulin Aspart (Novolog) 0-9 UNITS TIDWMEALS SQ ; Start 12/09/16 at 08:00; Stop 12/09/16 at 08:19; Status DC Dextrose 12.5 gm PRN Q15MIN PRN IV SEE COMMENTS; Start 12/09/16 at 08:00 Morphine Sulfate 2 mg PRN Q2HR PRN IV PAIN SEVERE; Start 12/09/16 at 08:00 Oxycodone/ Acetaminophen (Percocet 5/325) 1 tab PRN Q6HRS PRN PO PAIN MOD TO SEV; Start 12/09/16 at 08:00 Allopurinol (Zyloprim) 100 mg DAILY PO Last administered on 12/09/16 08:54; Start 12/09/16 at 09:00 Aspirin (Ecotrin) 81 mg DAILY08 PO Last administered on 12/09/16 08:53; Start 12/09/16 at 09:00 Carvedilol (Coreg) 6.25 mg BIDWMEALS PO ; Start 12/09/16 at 08:30 Ferrous Sulfate (Feosol) 325 mg DAILY08 PO Last administered on 12/09/16 08:53 ; Start 12/09/16 at 09:00 Furosemide (Lasix) 40 mg DAILY PO ; Start 12/09/16 at 09:00; Stop 12/09/16 at 09 :00; Status DC Albuterol Sulfate (Ventolin Neb Soln) 2.5 mg PRN Q4HRS PRN INH CONGESTION; Start 12/09/16 at 08:00 Lisinopril (Prinivil) 30 mg DAILY PO ; Start 12/09/16 at 09:00; Stop 12/09/16 at 09:00; Status DC Nystatin (Nystop) 1 jaison BID TP ; Start 12/09/16 at 09:00; Stop 12/09/16 at 09:00 ; Status DC Budesonide (Pulmicort) 0.5 mg RTBID NEB ; Start 12/09/16 at 08:30; Stop at 08:30; Status DC Atorvastatin Calcium (Lipitor) 5 mg QHS PO ; Start 12/09/16 at 21:00 Budesonide (Pulmicort) 0.5 mg RTBID NEB ; Start 12/09/16 at 08:30 Albuterol Sulfate (Ventolin Neb Soln) 2.5 mg RTQID NEB ; Start 12/09/16 at 12:00 ; Stop 12/09/16 at 12:00; Status DC Nystatin (Nystop) 1 jaison QID TP Last administered on 12/09/16 08:55; Start at 09:00 Heparin Sodium (Porcine) 5,000 unit BID SQ ; Start 12/09/16 at 09:00 Insulin Aspart (Novolog) 0-7 UNITS TIDWMEALS SQ ; Start 12/09/16 at 12:00 Dextrose 12.5 gm PRN Q15MIN PRN IV SEE COMMENTS; Start 12/09/16 at 08:30; Status UNV Zinc Acetate/ Diphenhydramine (Benadryl Topical) 1 jaison PRN BID PRN TP pruritis ; Start 12/09/16 at 08:30 Albuterol/ Ipratropium 3 ml 3 ml RTQID NEB ; Start 12/09/16 at 12:00 Magnesium Sulfate/ Dextrose 50 ml @ 25 mls/hr PRN DAILY PRN IV for Mag < 1.7 on am labs; Start 12/09/16 at 08:45 Sodium Chloride 500 ml @ 0 mls/hr QID PRN IV UO< 30cc/hr over previous 6hrs; Start 12/09/16 at 08:45 Sodium Bicarbonate/ Dextrose 1,150 ml @ 100 mls/hr [id number] IV ; Start 12/09/16 at 09:00 Lidocaine/Sodium Bicarbonate (Buffered Lidocaine 1%) 3 ml 1X ONCE IJ ; Start at 09:15; Stop 12/09/16 at 09:16; Status UNV Heparin Sodium/ Sodium Chloride 60 unit 1X ONCE IV ; Start 12/09/16 at 09:15; Stop 12/09/16 at 09:16; Status UNV Heparin Sodium (Porcine) 2,500 unit 1X ONCE INT CAT ; Start 12/09/16 at 09:15; Stop 12/09/16 at 09:16; Status UNV Darbepoetin Krzysztof (Aranesp) 60 mcg WEEKLYHS SQ ; Start 12/09/16 at 21:00; Status UNV Active Scripts Active Bactrim Ds Tablet (Sulfamethoxazole/Trimethoprim) 1 Each Tablet 1 Tab PO BID Nystatin 15 Gm Powder 15 Gm TP BID Lisinopril 10 Mg Tablet 30 Mg PO DAILY Reported Tylenol (Acetaminophen) 325 Mg Tablet 650 Mg PO TID PRN PRN Metformin Hcl 500 Mg Tablet 1 Tab PO TID Aspir 81 (Aspirin) 81 Mg Tablet. 1 Tab PO DAILY Allopurinol 100 Mg Tablet 1 Tab PO DAILY Iron Supplement (Ferrous Sulfate) 325 Mg Tablet 1 Tab PO DAILY Advair 250-50 Diskus (Fluticasone/Salmeterol) 1 Each Disk.w.dev 1 Puff IH BID Duoneb 0.5-3(2.5) Mg/3 Ml (Albuterol/Ipratropium) 3 Ml Ampul.neb 3 Ml IH Q4HRS PRN Pravastatin Sodium 10 Mg Tablet 1 Tab PO DAILY Carvedilol 6.25 Mg Tablet 1 Tab PO BID Furosemide 40 Mg Tablet 1 Tab PO DAILY Allergies Allergies: Coded Allergies: No Known Drug Allergies (Unverified , 05/06/15) ROS General: YES: Fatigue, Other (weak) PSYCHOLOGICAL ROS: No: Anxiety, Behavioral Disorder, Concentration difficultie , Decreased libido, Depression, Disorientation, Hallucinations, Hostility, Irritablity, Memory difficulties, Mood Swings, Obsessive thoughts, Other, Physical abuse, Sexual abuse, Sleep disturbances, Suicidal ideation Eyes: No Blurry vision, No Decreased vision, No Double vision, No Dry eyes, No Excessive tearing, No Eye Pain, No Itchy Eyes, No Loss of vision, No Other, No Photophobia, No Scotomata, No Uses contacts, No Uses glasses HEENT: No: Epistaxis, Heacaches, Hearing change, Nasal congestion, Nasal discharge, Oral lesions, Other, Sinus pain, Sneezing, Snoring, Sore Throat, Tinnitus, Vertigo, Visual Changes, Vocal changes ALLERGY AND IMMUNOLOGY: No: Hives, Insect Bite Sensitivity, Itchy/Watery Eyes, Nasal Congestion, Other, Post Nasal Drip, Seasonal Allergies Hematological and Lymphatic: No: Bleeding Problems, Blood Clots, Blood Transfusions, Brusing, Night Sweats, Other, Pallor, Swollen Lymph Nodes ENDOCRINE: No: Breast Changes, Galactorrhea, Hair Pattern Changes, Hot Flashes , Malaise/lethargy, Mood Swings, Other, Palpitations, Polydipsia/polyuria, Skin Changes, Temperature Intolerance, Unexpected Weight Changes Breast: Other (rash underneath breasts) Cardiovascular: No Chest Pain, No Edema, No Lt Headedness, No Orthopnea, No Other, No Palpitations, No Paroxysmal Noc. Dyspnea Gastrointestinal: No Abdominal Pain, No Constipation, No Diarrhea, No Hematochezia, No Melena, No Nausea, No Other, No Vomiting Genitourinary: YES Other (rash in between groin) Musculoskeletal: No Gait Disturbance, No Joint Pain, No Joint Stiffness, No Joint Swelling, No Muscle Pain, No Muscular Weakness, No Other, No Pain In:, No Swelling In: Neurological: No Behavorial Changes, No Bowel/Bladder ControlChng, No Confusion , No Dizziness, No Gait Disturbance, No Headaches, No Impaired Coord/balance, No Memory Loss, No Numbness/Tingling, No Other, No Seizures, No Speech Problems , No Tremors, No Visual Changes, No Weakness Skin: Yes Other (see above) Physical Exam General: Alert, Oriented X3, Cooperative, No acute distress HEENT: Atraumatic, PERRLA Lungs: Normal air movement Heart: S1S2, RRR, no thrills, no rubs, no gallops, no murmurs Cardiovascular: S1, S2 Abdomen: Normal bowel sounds, Soft, No tenderness, No hepatosplenomegaly, No masses Rectal Exam: not examined PELVIC: Nml ext genitalia Extremities: No clubbing, No cyanosis, No edema, Normal pulses, No tenderness/ swelling Skin: Other (erythematous rash underneath breasts, encompassing whole line of the underbreasts with extension to the breasts itself, similar rash on bilateral groins and inner thigh, no appreciable open lesions though or weeping) Neuro: Normal gait, Normal speech, Strength at 5/5 X4 ext, Normal tone, Sensation intact, Cranial nerves 3-12 NL, Reflexes 2+ Psych/Mental Status: Mental status NL, Mood NL Vitals Vitals Vital Signs Date Time Temp Pulse Resp B/P Pulse Ox O2 Delivery O2 Flow Rate FiO2 12/09/16 06:00 70 33 101/52 96 Nasal Cannula 4.0 12/09/16 04:00 97.9 97.9 Labs Labs Laboratory Tests Test 12/08/16 19:50 12/08/16 20:25 12/08/16 20:59 12/09/16 00:20 White Blood Count 15.9x10^3/uL (4.0-11.0) Red Blood Count 2.82x10^6/uL (3.50-5.40) Hemoglobin 8.9g/dL (12.0-15.5) Hematocrit 25.5% (36.0-47.0) Mean Corpuscular Volume 90fL (79-100) Mean Corpuscular Hemoglobin 32pg (25-35) Mean Corpuscular Hemoglobin Concent 35g/dL (31-37) Red Cell Distribution Width 16.3% (11.5-14.5) Platelet Count 233x10^3/uL (140-400) Neutrophils (%) (Auto) 82% (31-73) Lymphocytes (%) (Auto) 11% (24-48) Monocytes (%) (Auto) 6% (0-9) Eosinophils (%) (Auto) 1% (0-3) Basophils (%) (Auto) 1% (0-3) Neutrophils # (Auto) 13.0x10^3uL (1.8-7.7) Lymphocytes # (Auto) 1.8x10^3/uL (1.0-4.8) Monocytes # (Auto) 0.9x10^3/uL (0.0-1.1) Eosinophils # (Auto) 0.1x10^3/uL (0.0-0.7) Basophils # (Auto) 0.1x10^3/uL (0.0-0.2) Segmented Neutrophils % 60% (35-66) Band Neutrophils % 24% (0-9) Lymphocytes % 12% (24-48) Monocytes % 4% (0-10) Toxic Granulation Slight Platelet Estimate Adequate (ADEQUATE) Polychromasia Slight Sodium Level 135mmol/L (136-145) Potassium Level 4.3mmol/L (3.5-5.1) Chloride Level 100mmol/L (98-107) Carbon Dioxide Level 17mmol/L (21-32) Anion Gap 18 (6-14) Blood Urea Nitrogen 69mg/dL (7-20) Creatinine 4.4mg/dL (0.6-1.0) Estimated GFR (Cockcroft-Gault) 9.7 Glucose Level 107mg/dL (70-99) Lactic Acid Level 2.6mmol/L (0.4-2.0) 1.6mmol/L (0.4-2.0) Calcium Level 7.9mg/dL (8.5-10.1) Urine Collection Type U cath Urine Color Dk yellow Urine Clarity Cloudy Urine pH 5.0 Urine Specific [employer] 1.025 Urine Protein Negativemg/dL (NEG-TRACE) Urine Glucose (UA) Negativemg/dL (NEG) Urine Ketones (Stick) Negativemg/dL (NEG) Urine Blood Negative (NEG) Urine Nitrite Negative (NEG) Urine Bilirubin Large (NEG) Urine Urobilinogen Dipstick 0.2mg/dL (0.2 mg/dL) Urine Leukocyte Esterase Moderate (NEG) Urine RBC 0/HPF (0-2) Urine WBC 20-40/HPF (0-4) Urine Squamous Epithelial Cells Few/LPF Urine Transitional Epithelial Cells Occ/LPF Urine Renal Epithelial Cells Occ/LPF Urine Bacteria Few/HPF (0-FEW) Urine Mucus Slight/LPF Test 12/09/16 08:37 Glucose (Fingerstick) 123mg/dL (70-99) Laboratory Tests Test 12/08/16 19:50 12/08/16 20:25 12/08/16 20:59 12/09/16 00:20 White Blood Count 15.9x10^3/uL (4.0-11.0) Red Blood Count 2.82x10^6/uL (3.50-5.40) Hemoglobin 8.9g/dL (12.0-15.5) Hematocrit 25.5% (36.0-47.0) Mean Corpuscular Volume 90fL (79-100) Mean Corpuscular Hemoglobin 32pg (25-35) Mean Corpuscular Hemoglobin Concent 35g/dL (31-37) Red Cell Distribution Width 16.3% (11.5-14.5) Platelet Count 233x10^3/uL (140-400) Neutrophils (%) (Auto) 82% (31-73) Lymphocytes (%) (Auto) 11% (24-48) Monocytes (%) (Auto) 6% (0-9) Eosinophils (%) (Auto) 1% (0-3) Basophils (%) (Auto) 1% (0-3) Neutrophils # (Auto) 13.0x10^3uL (1.8-7.7) Lymphocytes # (Auto) 1.8x10^3/uL (1.0-4.8) Monocytes # (Auto) 0.9x10^3/uL (0.0-1.1) Eosinophils # (Auto) 0.1x10^3/uL (0.0-0.7) Basophils # (Auto) 0.1x10^3/uL (0.0-0.2) Segmented Neutrophils % 60% (35-66) Band Neutrophils % 24% (0-9) Lymphocytes % 12% (24-48) Monocytes % 4% (0-10) Toxic Granulation Slight Platelet Estimate Adequate (ADEQUATE) Polychromasia Slight Sodium Level 135mmol/L (136-145) Potassium Level 4.3mmol/L (3.5-5.1) Chloride Level 100mmol/L (98-107) Carbon Dioxide Level 17mmol/L (21-32) Anion Gap 18 (6-14) Blood Urea Nitrogen 69mg/dL (7-20) Creatinine 4.4mg/dL (0.6-1.0) Estimated GFR (Cockcroft-Gault) 9.7 Glucose Level 107mg/dL (70-99) Lactic Acid Level 2.6mmol/L (0.4-2.0) 1.6mmol/L (0.4-2.0) Calcium Level 7.9mg/dL (8.5-10.1) Urine Collection Type U cath Urine Color Dk yellow Urine Clarity Cloudy Urine pH 5.0 Urine Specific [employer] 1.025 Urine Protein Negativemg/dL (NEG-TRACE) Urine Glucose (UA) Negativemg/dL (NEG) Urine Ketones (Stick) Negativemg/dL (NEG) Urine Blood Negative (NEG) Urine Nitrite Negative (NEG) Urine Bilirubin Large (NEG) Urine Urobilinogen Dipstick 0.2mg/dL (0.2 mg/dL) Urine Leukocyte Esterase Moderate (NEG) Urine RBC 0/HPF (0-2) Urine WBC 20-40/HPF (0-4) Urine Squamous Epithelial Cells Few/LPF Urine Transitional Epithelial Cells Occ/LPF Urine Renal Epithelial Cells Occ/LPF Urine Bacteria Few/HPF (0-FEW) Urine Mucus Slight/LPF Test 12/09/16 08:37 Glucose (Fingerstick) 123mg/dL (70-99) VTE Prophylaxis Ordered VTE Prophylaxis Devices: Yes VTE Pharmacological Prophylaxi: Yes Assessment/Plan Assessment/Plan 1. Severe SEPSIS with HYPOTENSIOn on pressors sec to SEVERE CANDIDIASIS, intertriginous areas 2. CHronic STEROID use sec to AECOPD, past admits 3. REY on CKD - baseline? 4. Hx CHF? per documentation 5. 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 OLiguric renal failure 8. 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 HTN hx nOW HYPOTENSIVE 10. DYslipidemia PLAN INsert valencia cath for accurate I and O Cont levophed gtt ANti fungal and broad spectrum BMP daily CBC again lisa Follow BC Hold antihypertensives WOund care DVT prophy Renal diet MIght need pulmo involvement....dw renal, dtr, pt and [employer] CC 30 TESS LOZANO MD Dec 09, 2016 09:20
[2016-12-09 09:22] LABS: BASO # 0.1 x10^3/uL (0.0-0.2); BASO % 0 % (0-3); EOS % 0 % (0-3); HEMATOCRIT 31.7 % (36.0-47.0); HEMOGLOBIN 9.9 g/dL (12.0-15.5); LYMPH # 2.9 x10^3/uL (1.0-4.8); LYMPH % 11 % (24-48); MEAN CORPUSCULAR HEMOGLOBIN 29 pg (25-35); MEAN CORPUSCULAR HGB CONC 31 g/dL (31-37); MEAN CORPUSCULAR VOLUME 92 fL (79-100); MONO % 5 % (0-9); NEUT % 84 % (31-73); PLATELET COUNT 381 x10^3/uL (140-400); RED BLOOD COUNT 3.46 x10^6/uL (3.50-5.40); RED CELL DISTRIBUTION WIDTH 16.8 % (11.5-14.5); WHITE BLOOD COUNT 27.6 x10^3/uL (4.0-11.0)
[2016-12-09] MEDS ORDERED: HEPARIN for IV BOLUS 10,000 UNIT/10 ML VIAL. ONE (09:34)
[2016-12-09 09:54] LABS: CALCIUM 7.9 mg/dL (8.5-10.1); CREATININE 3.8 mg/dL (0.6-1.0); GFR 11.5; POTASSIUM 4.6 mmol/L (3.5-5.1)
[2016-12-09 10:01] LABS: ALBUMIN/GLOBULIN RATIO 0.5 (1.0-1.7); TOTAL BILIRUBIN 0.3 mg/dL (0.2-1.0)
--- NOTE | 2016-12-09 10:25 | PDOC ---
Provider Note Provider Note [id number] acute on chronic resp fail shock lor copd see orders. ALAN IYER MD Dec 09, 2016 10:25
[2016-12-09 10:38] LABS: PLT ESTIMATE ADEQUATE (ADEQUATE)
[2016-12-09] MEDS: SODIUM BICARBONATE VIAL 150 MEQ in IV DEXTROSE 5% 1,000 ML IV SCH ×2 (10:43→20:35)
[2016-12-09] MEDS: HEPARIN PF for SUB-Q USE 5,000 UNIT/0.5 ML VIAL. SQ SCH ×2 (10:44→20:32)
[2016-12-09] MEDS: HYDROCORTISONE SOD SUCC/PF 100 MG/2 ML VIAL. IV SCH ×3 (10:48→22:09)
[2016-12-09] MEDS: PANTOPRAZOLE 40 MG TABLET. PO SCH (10:48)
--- NOTE | 2016-12-09 11:01 | RAD ---
Renal ultrasound, 12/09/2016: History: Acute and chronic renal disease The right kidney measures 10.3 cm in length, while the left kidney measures 10.1 cm. There is no evidence of hydronephrosis or a renal mass. The renal parenchymal echogenicity is within normal limits. Limited views of the partially filled urinary bladder are unremarkable. IMPRESSION: No significant renal abnormality is detected.
[2016-12-09 11:05] LABS: URIC ACID 4.6 mg/dL (2.6-6.0)
--- NOTE | 2016-12-09 11:12 | PDOC ---
BRIEF OPERATIVE NOTE Pre-Op Diagnosis ARF Post-Op Diagnosis same Procedure Performed US trialysis catheter placement Surgeon Taran Anesthesia Type: Local Findings 20cm Trialysis with excellent manual flows Complications No immediate ETHAN LARSON MD Dec 09, 2016 11:12
[2016-12-09] MEDS: IPRATRPIUM/ALBUTEROL 0.5/2.5MG 3 ML NEBU. NEB SCH ×3 (11:39→19:55)
[2016-12-09] MEDS: INSULIN ASPART 300 UNITS/3 ML INSULN.PEN SQ SCH ×2 (12:00→18:12)
[2016-12-09] MEDS ORDERED: ALBUTEROL SULFATE 2.5 MG/3 ML NEBU. NEB SCH (12:00)
--- NOTE | 2016-12-09 12:02 | RAD ---
Indication catheter placement. Single view of the chest was obtained and is compared to a study one day earlier. There is now a right-sided dialysis catheter. No complication is seen and specifically no pneumothorax is seen. There has been no additional change in the appearance of the chest compared to the previous exam. IMPRESSION: Interval placement of right-sided dialysis catheter. No complication seen
--- NOTE | 2016-12-09 12:33 | PDOC2 ---
NEDRA WHITE COLLAR WORKER 12/09/16 1233: CARDIAC CONSULT DATE OF CONSULT Date of Consult DATE: 12/09/16 TIME: 12:29 REASON FOR CONSULT Reason for Consult: ? CHF REFERRING PHYSICIAN Referring Physician: Dr. Saab SOURCE Source: Chart review, Patient HISTORY OF PRESENT ILLNESS HISTORY OF PRESENT ILLNESS This is a 76 yo female who presented with complaints of fatigue and worsening, painful skin rash. Rash under bilateral breast, in abdominal folds and between thighs; presented for the last couple of weeks. Patient was seen in ED 12/07/16. Treated with Nystatin and Bactrium and told f/u with PCP today. Patient reports significant fatigue in the 24hr proceeding admission. Had difficulty ambulating and getting into bed. Rash also seem to worsen and became more painful so she came in for further evaluation. History of COPD with oxygen therapy and chronic SOA. Denies any chest pain, palpitations, dizziness, LE edema, or orthopnea. Very limited intake over the last couple of day. [place] nauseated with eating and drinking. Reports compliance with medications. PAST MEDICAL HISTORY Past Medical History Cardiovascular: CAD, CHF (diastolic), HTN, Hyperlipidemia Pulmonary: COPD (severe with emphysema), Other (chronic respiratory failure with home oxgen; right apical and LLL nodules) CENTRAL NERVOUS SYSTEM: Periperal neuropathy (associated with diabetes) GI: No pertinent hx Heme/Onc: Anemia NOS Hepatobiliary: No pertinent hx Psych: No pertinent hx Musculoskeletal: Osteoarthritis Rheumatologic: No pertinent hx Infectious disease: No pertinent hx ENT: No pertinent hx Renal/: No pertinent hx Endocrine: Diabetes (with neuropathy) Dermatology: No pertinent hx PAST SURGICAL HISTORY Past Surgical History Cholecystectomy, Other (oral surgery) FAMILY HISTORY Family History Coronary Artery Disease (10 brothers - all from CAD; one sister with CAD/CABG) SOCIAL HISTORY Social History Smoke: Quit (27 years ago) ALCOHOL: none Drugs: None CURRENT MEDICATIONS CURRENT MEDICATIONS Current Medications Medications (Trade) Dose Ordered Sig/Vea Route PRN Reason Start Time Stop Time Status Last Admin Dose Admin Fentanyl Citrate 25 mcg 25 mcg PRN Q15MIN PRN IV PAIN GREATER THAN 3/10 12/08/16 19:45 12/09/16 19:44 12/08/16 20:37 Sodium Chloride (Iv Sodium Chloride 0.9% 1000ml Bag) 1,000 ml @ 1,000 mls/hr Q1H IV 12/08/16 20:00 12/08/16 20:59 DC 12/08/16 20:20 Ondansetron HCl (Zofran) 4 mg 1X ONCE IV 12/08/16 20:00 12/08/16 20:01 DC 12/08/16 20:21 Nystatin (Nystop) 1 jaison BID TP 12/08/16 20:15 12/09/16 08:28 DC 12/08/16 20:24 Vancomycin HCl 1 each 1 each PRN DAILY PRN MC SEE COMMENTS 12/08/16 19:45 12/09/16 07:57 DC 12/08/16 20:57 Ceftriaxone Sodium 50 ml @ 100 mls/hr 1X ONCE IV 12/08/16 20:15 12/08/16 20:44 DC 12/08/16 20:23 Vancomycin HCl 1.75 gm/Sodium Chloride 500 ml @ 250 mls/hr 1X ONCE IV 12/08/16 20:30 12/08/16 22:29 DC 12/08/16 20:19 Fluconazole/ Sodium Chloride 200 ml @ 100 mls/hr Q24H IV 12/08/16 21:00 12/08/16 22:00 DC 12/08/16 21:00 Sodium Chloride (Iv Sodium Chloride 0.9% 1000ml Bag) 1,000 ml @ 1,000 mls/hr 1X ONCE IV 12/08/16 21:00 12/08/16 21:59 DC 12/08/16 21:02 Ondansetron HCl 4 mg 4 mg PRN Q8HRS PRN IV NAUSEA/VOMITING 12/08/16 21:30 12/09/16 07:55 DC 12/09/16 02:05 Sodium Chloride 1,000 ml @ 125 mls/hr Q8H IV 12/08/16 21:30 12/09/16 08:48 DC 12/09/16 05:42 Norepinephrine Bitartrate/Sodium Chloride (Levophed Vial/ Iv Sodium Chloride 0.9% 250ml) 258 ml @ 0 mls/hr 1X ONCE IV 12/08/16 22:00 12/08/16 22:01 DC 12/08/16 22:00 Ondansetron HCl (Zofran) 4 mg PRN Q6HRS PRN IV NAUSEA/VOMITING 1ST CHOICE 12/09/16 07:52 12/09/16 09:06 Allopurinol (Zyloprim) 100 mg DAILY PO 12/09/16 09:00 12/09/16 08:54 Aspirin (Ecotrin) 81 mg DAILY08 PO 12/09/16 09:00 12/09/16 08:53 Ferrous Sulfate (Feosol) 325 mg DAILY08 PO 12/09/16 09:00 12/09/16 08:53 Nystatin (Nystop) 1 jaison QID TP 12/09/16 09:00 12/09/16 08:55 Heparin Sodium (Porcine) 5,000 unit BID SQ 12/09/16 09:00 12/09/16 10:44 Albuterol/ Ipratropium 3 ml 3 ml RTQID NEB 12/09/16 12:00 12/09/16 11:39 Sodium Bicarbonate/ Dextrose 1,150 ml @ 100 mls/hr [id number] IV 12/09/16 09:00 12/09/16 10:43 Lidocaine/Sodium Bicarbonate (Buffered Lidocaine 1%) 3 ml 1X ONCE IJ 12/09/16 09:15 12/09/16 09:16 DC 12/09/16 11:08 Heparin Sodium/ Sodium Chloride 60 unit 1X ONCE IV 12/09/16 09:15 12/09/16 09:16 DC 12/09/16 11:07 Heparin Sodium (Porcine) 2,500 unit 1X ONCE INT CAT 12/09/16 09:15 12/09/16 09:16 DC 12/09/16 11:07 Hydrocortisone Sodium Succinate (Solu-Cortef) 100 mg Q8HRS IV 12/09/16 10:30 12/09/16 10:48 Pantoprazole Sodium (Protonix) 40 mg DAILYAC PO 12/09/16 11:00 12/09/16 10:48 ALLERGIES ALLERGIES: Coded Allergies: No Known Drug Allergies (Unverified , 05/06/15) ROS Review of System 14 point ROS conducted with pertinent positives noted above in HPI. PHYSICAL EXAM PHYSICAL EXAM General: Alert, Oriented X3, Cooperative, no acute distress HEENT: Atraumatic, PERRLA Lungs: CTA, diminished bases Heart: Regular rate, Normal S1, Normal S2, No murmurs, Other (tele: SR) Abdomen: Normal bowel sounds, Soft, No tenderness Extremities: No edema, Normal pulses Skin: extensive excoriation beneath bilateral breast and in abdominal folds and groin area- tenderness to touch Neuro: Normal speech Psych/Mental Status: Mental status NL, Mood NL MUSCULOSKELETAL: Osteoarthritic changes both hands VITALS VITALS Vital Signs Date Time Temp Pulse Resp B/P Pulse Ox O2 Delivery O2 Flow Rate FiO2 12/09/16 11:47 99 Nasal Cannula 4.0 12/09/16 11:00 78 26 102/47 12/09/16 08:00 97.9 97.9 LABS Lab: Laboratory Tests Test 12/08/16 19:50 12/08/16 20:25 12/08/16 20:59 12/09/16 00:20 White Blood Count 15.9x10^3/uL (4.0-11.0) Red Blood Count 2.82x10^6/uL (3.50-5.40) Hemoglobin 8.9g/dL (12.0-15.5) Hematocrit 25.5% (36.0-47.0) Mean Corpuscular Volume 90fL (79-100) Mean Corpuscular Hemoglobin 32pg (25-35) Mean Corpuscular Hemoglobin Concent 35g/dL (31-37) Red Cell Distribution Width 16.3% (11.5-14.5) Platelet Count 233x10^3/uL (140-400) Neutrophils (%) (Auto) 82% (31-73) Lymphocytes (%) (Auto) 11% (24-48) Monocytes (%) (Auto) 6% (0-9) Eosinophils (%) (Auto) 1% (0-3) Basophils (%) (Auto) 1% (0-3) Neutrophils # (Auto) 13.0x10^3uL (1.8-7.7) Lymphocytes # (Auto) 1.8x10^3/uL (1.0-4.8) Monocytes # (Auto) 0.9x10^3/uL (0.0-1.1) Eosinophils # (Auto) 0.1x10^3/uL (0.0-0.7) Basophils # (Auto) 0.1x10^3/uL (0.0-0.2) Segmented Neutrophils % 60% (35-66) Band Neutrophils % 24% (0-9) Lymphocytes % 12% (24-48) Monocytes % 4% (0-10) Toxic Granulation Slight Platelet Estimate Adequate (ADEQUATE) Polychromasia Slight Sodium Level 135mmol/L (136-145) Potassium Level 4.3mmol/L (3.5-5.1) Chloride Level 100mmol/L (98-107) Carbon Dioxide Level 17mmol/L (21-32) Anion Gap 18 (6-14) Blood Urea Nitrogen 69mg/dL (7-20) Creatinine 4.4mg/dL (0.6-1.0) Estimated GFR (Cockcroft-Gault) 9.7 Glucose Level 107mg/dL (70-99) Lactic Acid Level 2.6mmol/L (0.4-2.0) 1.6mmol/L (0.4-2.0) Calcium Level 7.9mg/dL (8.5-10.1) Urine Collection Type U cath Urine Color Dk yellow Urine Clarity Cloudy Urine pH 5.0 Urine Specific [place] 1.025 Urine Protein Negativemg/dL (NEG-TRACE) Urine Glucose (UA) Negativemg/dL (NEG) Urine Ketones (Stick) Negativemg/dL (NEG) Urine Blood Negative (NEG) Urine Nitrite Negative (NEG) Urine Bilirubin Large (NEG) Urine Urobilinogen Dipstick 0.2mg/dL (0.2 mg/dL) Urine Leukocyte Esterase Moderate (NEG) Urine RBC 0/HPF (0-2) Urine WBC 20-40/HPF (0-4) Urine Squamous Epithelial Cells Few/LPF Urine Transitional Epithelial Cells Occ/LPF Urine Renal Epithelial Cells Occ/LPF Urine Bacteria Few/HPF (0-FEW) Urine Mucus Slight/LPF Test 12/09/16 08:37 12/09/16 09:05 Glucose (Fingerstick) 123mg/dL (70-99) White Blood Count 27.6x10^3/uL (4.0-11.0) Red Blood Count 3.46x10^6/uL (3.50-5.40) Hemoglobin 9.9g/dL (12.0-15.5) Hematocrit 31.7% (36.0-47.0) Mean Corpuscular Volume 92fL (79-100) Mean Corpuscular Hemoglobin 29pg (25-35) Mean Corpuscular Hemoglobin Concent 31g/dL (31-37) Red Cell Distribution Width 16.8% (11.5-14.5) Platelet Count 381x10^3/uL (140-400) Neutrophils (%) (Auto) 84% (31-73) Lymphocytes (%) (Auto) 11% (24-48) Monocytes (%) (Auto) 5% (0-9) Eosinophils (%) (Auto) 0% (0-3) Basophils (%) (Auto) 0% (0-3) Neutrophils # (Auto) 23.0x10^3uL (1.8-7.7) Lymphocytes # (Auto) 2.9x10^3/uL (1.0-4.8) Monocytes # (Auto) 1.4x10^3/uL (0.0-1.1) Eosinophils # (Auto) 0.0x10^3/uL (0.0-0.7) Basophils # (Auto) 0.1x10^3/uL (0.0-0.2) Segmented Neutrophils % 67% (35-66) Band Neutrophils % 17% (0-9) Lymphocytes % 11% (24-48) Monocytes % 5% (0-10) Platelet Estimate Adequate (ADEQUATE) Reticulocyte Count (auto) 1.9% (0.5-2.5) Sodium Level 137mmol/L (136-145) Potassium Level 4.6mmol/L (3.5-5.1) Chloride Level 105mmol/L (98-107) Carbon Dioxide Level 15mmol/L (21-32) Anion Gap 17 (6-14) Blood Urea Nitrogen 68mg/dL (7-20) Creatinine 3.8mg/dL (0.6-1.0) Estimated GFR (Cockcroft-Gault) 11.5 BUN/Creatinine Ratio 18 (6-20) Glucose Level 125mg/dL (70-99) Lactic Acid Level 1.8mmol/L (0.4-2.0) Uric Acid 4.6mg/dL (2.6-6.0) Calcium Level 7.9mg/dL (8.5-10.1) Total Bilirubin 0.3mg/dL (0.2-1.0) Aspartate Amino Transf (AST/SGOT) 16U/L (15-37) Alanine Aminotransferase (ALT/SGPT) 8U/L (14-59) Alkaline Phosphatase 72U/L (46-116) Creatine Kinase 95U/L (26-192) Troponin I Quantitative < 0.017ng/mL (0.000-0.055) Total Protein 6.0g/dL (6.4-8.2) Albumin 2.0g/dL (3.4-5.0) Albumin/Globulin Ratio 0.5 (1.0-1.7) ECHOCARDIOGRAM ECHOCARDIOGRAM <Conclusion> Left ventricle systolic function is normal. The Ejection Fraction is estimated at 60%. There is normal LV segmental wall motion. Transmitral Doppler flow pattern is Grade I-abnormal relaxation pattern. Trace mitral regurgitation. Mild tricuspid regurgitation. The PA pressure was estimated at 41 mmHg. There is no evidence of significant pericardial effusion. DATE: 12/17/151710 ASSESSMENT/PLAN ASSESSMENT/PLAN 1. Chronic diastolic heart failure; LVEF 60% 2. Acute on chronic respiratory failure with COPD. ? viral pneumonitis 3. Leukocytosis with sepsis 4. Hypotension; on pressor support 5. Candidiasis 6. REY with CKD 7. Hyperlipidemia 8. DM, II with diabetic neuropathy 9. UTI Recommendations Echo pending clinical suspicion for overt HF low. hold diuretics; agree with gentle hydration hold antiHTN therapy; pressor support was warranted temporary dialysis catheter placed; HD to commence- per nephrology continue supportive care. Treatment of severe candidiasis per ID/PCP Problems: MAT RUEDA MD 12/09/161848: CARDIAC CONSULT ALLERGIES ALLERGIES: Coded Allergies: No Known Drug Allergies (Unverified , 05/06/15) ASSESSMENT/PLAN ASSESSMENT/PLAN Patient seen and examined. Agree with above nurse practitioner note. 76-year-old woman presenting with severe candidiasis and likely septic shock with acute kidney injury. Chest x-ray suggestive but not confirmatory of heart failure. From a cardiac vascular perspective she denies any chest pain or dyspnea at rest. On exam she has some mild rhonchi. No significant lower extremity edema. Labs and medications reviewed. Given her hypotension and sepsis she might develop some diastolic heart failure but would continue to hydrate as necessary given that she has normal LV function. Supportive care from a cardiac standpoint. Problems: NEDRA WHITE APRN Dec 09, 2016 12:33 MAT RUEDA MD Dec 09, 2016 18:49
--- NOTE | 2016-12-09 13:29 | RAD ---
Procedure: Temporary hemodialysis catheter placement under fluoroscopy Procedure: Temporary hemodialysis catheter placement at the bedside. Clinical Indication: 76-year-old with acute renal insufficiency requiring hemodialysis Sedation: Local anesthesia only Antibiotics: None Fluoro Time: Not applicable Contrast: None Sterility: All elements of maximal sterile barrier technique including the use of a cap, mask, sterile gown, sterile gloves, large sterile sheet, appropriate hand hygiene, and 2% chlorhexidine for cutaneous antisepsis (or acceptable alternative antiseptic per current guidelines) were followed for this procedure. Consent: The procedure was explained in its entirety to the patient or the patients designated new accounts representative by a member of the treatment team, including a discussion of the risks, benefits and commonly accepted alternatives to the procedure, as well as the expected consequences of no therapy whatsoever. Discussion of the risks included, but was not limited to, those that are most frequent and those that are rare but possibly severe or life-threatening, as well as the possibility of unforeseen complications. Technique and Findings: Following informed consent, the patient was prepped and draped in the usual sterile fashion. Ultrasound interrogation of the right neck revealed patency and compressibility of the right internal jugular vein. A 21-gauge micropuncture needle was used to gain access to this vein after 1% Lidocaine was used to achieve local anesthesia. A hardcopy ultrasound image was recorded. The needle was exchanged over a wire for serial dilators followed by a 20 cm Trialysis temporary hemodialysis catheter which was deployed in the expected location of the mid right atrium. The catheter flow rates were assessed manually and found to be excellent. The catheter was then flushed, packed with Heparin, capped, and sutured to the skin. Chest x-ray was then obtained to assess line position. Complications: No immediate Impression: 1. Ultrasound guided placement of a temporary hemodialysis catheter which exhibits excellent manual flow rates as described.
[2016-12-09] MEDS ORDERED: NOREPINEPHRINE 8 MG in IV NORMAL SALINE 250 ML IV PRN (13:30)
[2016-12-09 14:36] LABS: BILIRUBIN,URINE SMALL (NEG); GLUCOSE,URINE NEGATIVE (NEG); NITRITE,URINE NEGATIVE (NEG); PROTEIN,URINE NEGATIVE (NEG-TRACE); UROBILINOGEN,URINE 0.2 mg/dL (0.2 mg/dL)
[2016-12-09 15:00] LABS: BACTERIA,URINE 0 /HPF (0-FEW); RBC,URINE 0 /HPF (0-2); SQUAMOUS EPITHELIAL CELL,UR FEW /LPF; WBC,URINE 0 /HPF (0-4)
--- NOTE | 2016-12-09 16:56 | CARD ---
APPROVED REPORT EXAM: Two-dimensional and M-mode echocardiogram with Doppler and color Doppler. Other Information Quality : LimitedHR: 74bpm Rhythm : NSR INDICATION Congestive Heart Failure 2D DIMENSIONS RVDd2.3 (2.9-3.5cm)Left Atrium(2D)3.6 (1.6-4.0cm) Aortic Root(2D)2.9 (2.0-3.7cm)LVOT Diameter2.2 (1.8-2.4cm) LVDs3.8 (2.5-4.0cm) Tricuspid Valve TR P. [id number] Peak Gr.46mmHg LEFT VENTRICLE The left ventricle is normal size. The left ventricular systolic function is normal and the ejection fraction is within normal range. The Ejection Fraction is 60-65%. Wall motion not well visualized. Ap ical windows where not accessed at exam time, unable to assess for LV diastolic function. RIGHT VENTRICLE The right ventricle is normal size. There is normal right ventricular wall thickness. The right ventr icular systolic function is normal. ATRIA Limited visualization of the left atrium. No significant LA enlargement noted. The right atrium is no t well visualized. The atrial septum was not visualized. AORTIC VALVE The aortic valve is not well visualized but opens well. The aortic valve is mildly sclerotic. Doppler and Color Flow revealed no significant aortic regurgitation. There is no significant aortic valvular stenosis. MITRAL VALVE The mitral valve is not well visualized but opens well. TRICUSPID VALVE Not well visualized. PULMONIC VALVE The pulmonic valve is not visualized, unable to assess. GREAT VESSELS The aortic root is normal in size. The pulmonary is not visualized, unable to assess. PERICARDIAL EFFUSION There is no evidence of significant pericardial effusion. Critical Notification Critical Value: No <Conclusion> The left ventricular systolic function is normal and the ejection fraction is within normal range. Th e Ejection Fraction is 55%. Limited echo due to patient positioning.
[2016-12-09] MEDS: BUDESONIDE 0.5 MG/2 ML NEBU. NEB SCH (19:55)
--- NOTE | 2016-12-09 20:05 | CONS ---
DATE OF CONSULTATION: 12/09/2016 I was asked to see this 76-year-old lady for [id number]-[id number] respiratory failure, septic shock. HISTORY OF PRESENT ILLNESS: The patient has history of [id number] smoking, stopped smoking 20 years ago. She has chronic respiratory failure and COPD, is on oxygen 4 liters per minute via nasal cannula continuously. She has had weakness. She does have shortness of breath. She has a cough with sputum production. She has had rash in her skin area. She was found to be hypotensive in acute renal failure. She received 2 liters of IV fluid. She is currently on IV fluid and Levophed. She does have pain in her abdomen area, which the rashes in. PAST MEDICAL HISTORY: COPD, CHF, renal insufficiency, hypertension and hyperlipidemia. SOCIAL HISTORY: History of [id number] smoking, stopped smoking 20 years ago. ALLERGIES: No known drug allergies. MEDICATIONS: Currently she is on Lipitor, fluconazole, albuterol and Atrovent nebulizer, NovoLog, heparin 5000 units subcutaneous b.i.d., ferrous sulfate, aspirin, allopurinol, budesonide and Coreg. FAMILY HISTORY: There is no history of lung disease. REVIEW OF SYSTEMS: As mentioned as above, other systems otherwise negative. PHYSICAL EXAMINATION: GENERAL: A well-developed lady. VITAL SIGNS: Her O2 saturation on 4 liters of oxygen is 94%, respiratory rate 22, heart rate 75, blood pressure 126/56. temperature 97.9. HEENT: Normocephalic, atraumatic. Pupils equal, round, reactive to light. Throat is clear. Nose is clear. NECK: There is no JVD, lymphadenopathy or thyromegaly. CARDIOVASCULAR: Regular rate and rhythm. PMI is not displaced. CHEST: Inspection is normal. LUNGS: Diminished breath sounds. No wheezing. ABDOMEN: Soft. Bowel sounds are good. EXTREMITIES: There is no edema. LYMPHATICS: There is no lymphadenopathy. NEUROLOGIC: She is alert and oriented. SKIN: The patient has excessive yeast infection on the breasts bilaterally in groin area with the skin breakdown. LABORATORY DATA: I reviewed the following lab data. Chest x-ray shows increased interstitial marking. WBC 27.6, hemoglobin 9.9, platelets 381. Sodium 137, potassium 4.6, chloride 105, CO2 of 15, BUN 68, creatinine 3.8, on admission was 4.4. Troponin less than 0.01. Total bilirubin 0.3, AST 16, ALT 8, alkaline phosphatase 72. IMPRESSION: 1. Rwfsq-[id number] respiratory failure, multifactorial in etiology. 2. Abnormal chest x-ray. 3. Shock, septic versus hypovolemic. 4. Excessive yeast infection. 5. Acute kidney injury on chronic renal insufficiency. 6. Leukocytosis. 7. Anemia. 8. Congestive heart failure. 9. Chronic obstructive pulmonary disease. 10. Urinary tract infection. PLAN AND RECOMMENDATIONS: 1. Titrate FiO2 to keep O2 saturation 92%. 2. Bronchodilator. 3. Inhaled corticosteroid. 4. I will add Solu-Cortef. The patient has had on prednisone. On and off for a long time. 5. Continue Diflucan and Rocephin. 6. Follow up cultures. 7. Fluid resuscitation. 8. Nephrology and ID are consulted. 9. Heparin for deep venous thrombosis prophylaxis. 10. Start Prilosec for stress ulcer prophylaxis. 11. Monitor respiratory status very closely. 12. Continue pressors to keep mean arterial pressure 65. 13. The findings and recommendations were discussed with the patient, her daughter and RN. I have answered all of their questions. She understood and agreed to proceed with the plan. Thank you very much for allowing me to participate in care of this very nice lady. ALAN IYER M.D. MAKSIM Marrufo JOB#: [id number] / [id number] ZULMA
[2016-12-09] MEDS: ATORVASTATIN CALCIUM 10 MG TABLET. PO SCH (20:33)
[2016-12-09] MEDS: FLUCONAZOLE 200MG/100ML PREMIX 100 ML IV SCH (20:33)
[2016-12-09] MEDS: CEFTRIAXONE SODIUM 1 GM in IV NORMAL SALINE 50ML 50 ML IV SCH (20:34)
[2016-12-09] MEDS: DARBEPOETIN ALFA 60 MCG/0.3 ML DISP.SYRIN. SQ SCH (20:35)
[2016-12-09 21:09] LABS: UR PROTEIN RD 30.3 mg/dL (Not Estab.)
[2016-12-10] VITALS (24 sets, daily range): BP systolic 88–144; BP diastolic 42–67
--- NOTE | 2016-12-10 02:56 | CONS ---
DATE OF CONSULTATION: PRIMARY CARE PHYSICIAN: Dr. Fitch. REASON FOR CONSULTATION: Acute on chronic renal insufficiency. HISTORY OF PRESENT ILLNESS: The patient is a 76-year-old female who presented to the ER last night with complaints of skin rash and generalized fatigue. Her skin rash is in her intertriginous areas, mostly in her groin skin fold and underneath her breasts. She also has some in her umbilicus area and this has been going on for about 2 weeks. She was seen by Dr. Gay and was given nystatin and Bactrim; however, she felt increasingly fatigued and had decreased p.o. intake and presented to the ER for further evaluation. She denies diarrhea, nausea, vomiting. She denies shortness of breath, cough, phlegm, sputum production per se. Her blood pressure on arrival 187/43. She was noted to have bandemia and mildly elevated lactic acid and was diagnosed with sepsis, presumably from infection associated with her skin rash. Her baseline creatinine runs around 1.3. She was noted to have a creatinine of 4.4 yesterday. IV fluids were administered. She did have a wide anion gap metabolic acidosis. Her elevated lactic acid has resolved overnight. For rest of the details, please see electronic renal consult note. HARLAN NORTON MD DR: JACQUELIN/rito JOB#: [id number] / [id number]
[2016-12-10 06:02] LABS: ALBUMIN 1.8 g/dL (3.4-5.0); CALCIUM 7.9 mg/dL (8.5-10.1); GFR 15.1
[2016-12-10 06:21] LABS: % SAT IRON 19 % (15-34); IRON,SERUM 32 ug/dL (50-170)
--- NOTE | 2016-12-10 07:01 | PDOC ---
PULMONARY PROGRESS NOTES Subjective off levo this am, on 02, sob, better, has cough, no pain Vitals Vital Signs Date Time Temp Pulse Resp B/P Pulse Ox O2 Delivery O2 Flow Rate FiO2 12/10/16 05:00 98.0 86 19 111/56 95 Nasal Cannula 4.0 98.0 Comments ros as mentioned as above other sys otherwise neg ROS: No Nausea, No Chest Pain, No Abdominal Pain, No Increase Cough General: Alert, Oriented X4, No acute distress HEENT: Other (nc at perrl, throat nose clear) Lungs: Crackles Cardiovascular: S1, S2 Abdomen: Soft, Non-tender, Other (no mass) Neuro Exam: Alert, Oriented Extremities: No Edema, Other Skin: Warm, Rash Labs Laboratory Tests Test 12/08/16 19:50 12/08/16 20:25 12/08/16 20:59 12/08/16 22:30 White Blood Count 15.9x10^3/uL (4.0-11.0) Red Blood Count 2.82x10^6/uL (3.50-5.40) Hemoglobin 8.9g/dL (12.0-15.5) Hematocrit 25.5% (36.0-47.0) Mean Corpuscular Volume 90fL (79-100) Mean Corpuscular Hemoglobin 32pg (25-35) Mean Corpuscular Hemoglobin Concent 35g/dL (31-37) Red Cell Distribution Width 16.3% (11.5-14.5) Platelet Count 233x10^3/uL (140-400) Neutrophils (%) (Auto) 82% (31-73) Lymphocytes (%) (Auto) 11% (24-48) Monocytes (%) (Auto) 6% (0-9) Eosinophils (%) (Auto) 1% (0-3) Basophils (%) (Auto) 1% (0-3) Neutrophils # (Auto) 13.0x10^3uL (1.8-7.7) Lymphocytes # (Auto) 1.8x10^3/uL (1.0-4.8) Monocytes # (Auto) 0.9x10^3/uL (0.0-1.1) Eosinophils # (Auto) 0.1x10^3/uL (0.0-0.7) Basophils # (Auto) 0.1x10^3/uL (0.0-0.2) Segmented Neutrophils % 60% (35-66) Band Neutrophils % 24% (0-9) Lymphocytes % 12% (24-48) Monocytes % 4% (0-10) Toxic Granulation Slight Platelet Estimate Adequate (ADEQUATE) Polychromasia Slight Sodium Level 135mmol/L (136-145) Potassium Level 4.3mmol/L (3.5-5.1) Chloride Level 100mmol/L (98-107) Carbon Dioxide Level 17mmol/L (21-32) Anion Gap 18 (6-14) Blood Urea Nitrogen 69mg/dL (7-20) Creatinine 4.4mg/dL (0.6-1.0) Estimated GFR (Cockcroft-Gault) 9.7 Glucose Level 107mg/dL (70-99) Lactic Acid Level 2.6mmol/L (0.4-2.0) Calcium Level 7.9mg/dL (8.5-10.1) Urine Collection Type U cath Urine Color Dk yellow Urine Clarity Cloudy Urine pH 5.0 Urine Specific [place] 1.025 Urine Protein Negativemg/dL (NEG-TRACE) Urine Glucose (UA) Negativemg/dL (NEG) Urine Ketones (Stick) Negativemg/dL (NEG) Urine Blood Negative (NEG) Urine Nitrite Negative (NEG) Urine Bilirubin Large (NEG) Urine Urobilinogen Dipstick 0.2mg/dL (0.2 mg/dL) Urine Leukocyte Esterase Moderate (NEG) Urine RBC 0/HPF (0-2) Urine WBC 20-40/HPF (0-4) Urine Squamous Epithelial Cells Few/LPF Urine Transitional Epithelial Cells Occ/LPF Urine Renal Epithelial Cells Occ/LPF Urine Bacteria Few/HPF (0-FEW) Urine Mucus Slight/LPF Nasal Screen 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) Test 12/09/16 00:20 12/09/16 08:37 12/09/16 09:05 12/09/16 12:55 Lactic Acid Level 1.6mmol/L (0.4-2.0) 1.8mmol/L (0.4-2.0) Glucose (Fingerstick) 123mg/dL (70-99) 152mg/dL (70-99) White Blood Count 27.6x10^3/uL (4.0-11.0) Red Blood Count 3.46x10^6/uL (3.50-5.40) Hemoglobin 9.9g/dL (12.0-15.5) Hematocrit 31.7% (36.0-47.0) Mean Corpuscular Volume 92fL (79-100) Mean Corpuscular Hemoglobin 29pg (25-35) Mean Corpuscular Hemoglobin Concent 31g/dL (31-37) Red Cell Distribution Width 16.8% (11.5-14.5) Platelet Count 381x10^3/uL (140-400) Neutrophils (%) (Auto) 84% (31-73) Lymphocytes (%) (Auto) 11% (24-48) Monocytes (%) (Auto) 5% (0-9) Eosinophils (%) (Auto) 0% (0-3) Basophils (%) (Auto) 0% (0-3) Neutrophils # (Auto) 23.0x10^3uL (1.8-7.7) Lymphocytes # (Auto) 2.9x10^3/uL (1.0-4.8) Monocytes # (Auto) 1.4x10^3/uL (0.0-1.1) Eosinophils # (Auto) 0.0x10^3/uL (0.0-0.7) Basophils # (Auto) 0.1x10^3/uL (0.0-0.2) Segmented Neutrophils % 67% (35-66) Band Neutrophils % 17% (0-9) Lymphocytes % 11% (24-48) Monocytes % 5% (0-10) Platelet Estimate Adequate (ADEQUATE) Reticulocyte Count (auto) 1.9% (0.5-2.5) Sodium Level 137mmol/L (136-145) Potassium Level 4.6mmol/L (3.5-5.1) Chloride Level 105mmol/L (98-107) Carbon Dioxide Level 15mmol/L (21-32) Anion Gap 17 (6-14) Blood Urea Nitrogen 68mg/dL (7-20) Creatinine 3.8mg/dL (0.6-1.0) Estimated GFR (Cockcroft-Gault) 11.5 BUN/Creatinine Ratio 18 (6-20) Glucose Level 125mg/dL (70-99) Uric Acid 4.6mg/dL (2.6-6.0) Calcium Level 7.9mg/dL (8.5-10.1) Total Bilirubin 0.3mg/dL (0.2-1.0) Aspartate Amino Transf (AST/SGOT) 16U/L (15-37) Alanine Aminotransferase (ALT/SGPT) 8U/L (14-59) Alkaline Phosphatase 72U/L (46-116) Creatine Kinase 95U/L (26-192) Troponin I Quantitative < 0.017ng/mL (0.000-0.055) Total Protein 6.0g/dL (6.4-8.2) Albumin 2.0g/dL (3.4-5.0) Albumin/Globulin Ratio 0.5 (1.0-1.7) Test 12/09/16 13:55 12/09/16 18:09 12/10/16 05:00 Urine Collection Type Unknown Urine Color Yellow Urine Clarity Clear Urine pH 5.0 Urine Specific [place] 1.020 Urine Protein 30.3mg/dL (Not Estab.) Urine Glucose (UA) Negativemg/dL (NEG) Urine Ketones (Stick) Negativemg/dL (NEG) Urine Blood Negative (NEG) Urine Nitrite Negative (NEG) Urine Bilirubin Small (NEG) Urine Urobilinogen Dipstick 0.2mg/dL (0.2 mg/dL) Urine Leukocyte Esterase Negative (NEG) Urine RBC 0/HPF (0-2) Urine WBC 0/HPF (0-4) Urine Squamous Epithelial Cells Few/LPF Urine Bacteria 0/HPF (0-FEW) Urine Hyaline Casts Many/HPF Urine Mucus Slight/LPF Urine Random Creatinine 85.4mg/dL (Not Estab.) Urine Random Sodium 56mmol/L (Not Estab.) Urine Creatinine 85.4mg/dL (Not Estab.) Urine Protein/Creatinine Ratio 355mg/g creat (0-200) Glucose (Fingerstick) 217mg/dL (70-99) Hemoglobin 8.8g/dL (12.0-15.5) Sodium Level 138mmol/L (136-145) Potassium Level 4.0mmol/L (3.5-5.1) Chloride Level 103mmol/L (98-107) Carbon Dioxide Level 24mmol/L (21-32) Anion Gap 11 (6-14) Blood Urea Nitrogen 63mg/dL (7-20) Creatinine 3.0mg/dL (0.6-1.0) Estimated GFR (Cockcroft-Gault) 15.1 Glucose Level 232mg/dL (70-99) Calcium Level 7.9mg/dL (8.5-10.1) Phosphorus Level 4.0mg/dL (2.6-4.7) Magnesium Level 1.8mg/dL (1.8-2.4) Iron Level 32ug/dL (50-170) Total Iron Binding Capacity 171ug/dL (250-450) Iron Saturation 19% (15-34) Ferritin 175ng/mL (8-252) Albumin 1.8g/dL (3.4-5.0) Laboratory Tests Test 12/09/16 08:37 12/09/16 09:05 12/09/16 12:55 12/09/16 13:55 Glucose (Fingerstick) 123mg/dL (70-99) 152mg/dL (70-99) White Blood Count 27.6x10^3/uL (4.0-11.0) Red Blood Count 3.46x10^6/uL (3.50-5.40) Hemoglobin 9.9g/dL (12.0-15.5) Hematocrit 31.7% (36.0-47.0) Mean Corpuscular Volume 92fL (79-100) Mean Corpuscular Hemoglobin 29pg (25-35) Mean Corpuscular Hemoglobin Concent 31g/dL (31-37) Red Cell Distribution Width 16.8% (11.5-14.5) Platelet Count 381x10^3/uL (140-400) Neutrophils (%) (Auto) 84% (31-73) Lymphocytes (%) (Auto) 11% (24-48) Monocytes (%) (Auto) 5% (0-9) Eosinophils (%) (Auto) 0% (0-3) Basophils (%) (Auto) 0% (0-3) Neutrophils # (Auto) 23.0x10^3uL (1.8-7.7) Lymphocytes # (Auto) 2.9x10^3/uL (1.0-4.8) Monocytes # (Auto) 1.4x10^3/uL (0.0-1.1) Eosinophils # (Auto) 0.0x10^3/uL (0.0-0.7) Basophils # (Auto) 0.1x10^3/uL (0.0-0.2) Segmented Neutrophils % 67% (35-66) Band Neutrophils % 17% (0-9) Lymphocytes % 11% (24-48) Monocytes % 5% (0-10) Platelet Estimate Adequate (ADEQUATE) Reticulocyte Count (auto) 1.9% (0.5-2.5) Sodium Level 137mmol/L (136-145) Potassium Level 4.6mmol/L (3.5-5.1) Chloride Level 105mmol/L (98-107) Carbon Dioxide Level 15mmol/L (21-32) Anion Gap 17 (6-14) Blood Urea Nitrogen 68mg/dL (7-20) Creatinine 3.8mg/dL (0.6-1.0) Estimated GFR (Cockcroft-Gault) 11.5 BUN/Creatinine Ratio 18 (6-20) Glucose Level 125mg/dL (70-99) Lactic Acid Level 1.8mmol/L (0.4-2.0) Uric Acid 4.6mg/dL (2.6-6.0) Calcium Level 7.9mg/dL (8.5-10.1) Total Bilirubin 0.3mg/dL (0.2-1.0) Aspartate Amino Transf (AST/SGOT) 16U/L (15-37) Alanine Aminotransferase (ALT/SGPT) 8U/L (14-59) Alkaline Phosphatase 72U/L (46-116) Creatine Kinase 95U/L (26-192) Troponin I Quantitative < 0.017ng/mL (0.000-0.055) Total Protein 6.0g/dL (6.4-8.2) Albumin 2.0g/dL (3.4-5.0) Albumin/Globulin Ratio 0.5 (1.0-1.7) Urine Collection Type Unknown Urine Color Yellow Urine Clarity Clear Urine pH 5.0 Urine Specific [place] 1.020 Urine Protein 30.3mg/dL (Not Estab.) Urine Glucose (UA) Negativemg/dL (NEG) Urine Ketones (Stick) Negativemg/dL (NEG) Urine Blood Negative (NEG) Urine Nitrite Negative (NEG) Urine Bilirubin Small (NEG) Urine Urobilinogen Dipstick 0.2mg/dL (0.2 mg/dL) Urine Leukocyte Esterase Negative (NEG) Urine RBC 0/HPF (0-2) Urine WBC 0/HPF (0-4) Urine Squamous Epithelial Cells Few/LPF Urine Bacteria 0/HPF (0-FEW) Urine Hyaline Casts Many/HPF Urine Mucus Slight/LPF Urine Random Creatinine 85.4mg/dL (Not Estab.) Urine Random Sodium 56mmol/L (Not Estab.) Urine Creatinine 85.4mg/dL (Not Estab.) Urine Protein/Creatinine Ratio 355mg/g creat (0-200) Test 12/09/16 18:09 12/10/16 05:00 Glucose (Fingerstick) 217mg/dL (70-99) Hemoglobin 8.8g/dL (12.0-15.5) Sodium Level 138mmol/L (136-145) Potassium Level 4.0mmol/L (3.5-5.1) Chloride Level 103mmol/L (98-107) Carbon Dioxide Level 24mmol/L (21-32) Anion Gap 11 (6-14) Blood Urea Nitrogen 63mg/dL (7-20) Creatinine 3.0mg/dL (0.6-1.0) Estimated GFR (Cockcroft-Gault) 15.1 Glucose Level 232mg/dL (70-99) Calcium Level 7.9mg/dL (8.5-10.1) Phosphorus Level 4.0mg/dL (2.6-4.7) Magnesium Level 1.8mg/dL (1.8-2.4) Iron Level 32ug/dL (50-170) Total Iron Binding Capacity 171ug/dL (250-450) Iron Saturation 19% (15-34) Ferritin 175ng/mL (8-252) Albumin 1.8g/dL (3.4-5.0) Medications Active Scripts Medications Dose Route/Sig Days Date Category Bactrim Ds Tablet (Sulfamethoxazole/Trimethoprim) 1 Each Tablet 1 Tab PO BID 12/07/16 Rx Nystatin 15 Gm Powder 15 Gm TP BID 12/07/16 Rx Tylenol (Acetaminophen) 325 Mg Tablet 650 Mg PO TID PRN PRN 04/11/16 Reported Metformin Hcl 500 Mg Tablet 1 Tab PO TID 04/11/16 Reported Aspir 81 (Aspirin) 81 Mg Tablet.dr 1 Tab PO DAILY 04/11/16 Reported Lisinopril 10 Mg Tablet 30 Mg PO DAILY 12/11/15 Rx Allopurinol 100 Mg Tablet 1 Tab PO DAILY 11/16/15 Reported Iron Supplement (Ferrous Sulfate) 325 Mg Tablet 1 Tab PO DAILY 11/10/15 Reported Advair 250-50 Diskus (Fluticasone/Salmeterol) 1 Each Disk.w.dev 1 Puff IH BID 05/06/15 Reported Duoneb 0.5-3(2.5) Mg/3 Ml (Albuterol/Ipratropium) 3 Ml Ampul.neb 3 Ml IH Q4HRS PRN 05/06/15 Reported Pravastatin Sodium 10 Mg Tablet 1 Tab PO DAILY 09/16/14 Reported Carvedilol 6.25 Mg Tablet 1 Tab PO BID 09/16/14 Reported Furosemide 40 Mg Tablet 1 Tab PO DAILY 09/16/14 Reported Comments cxr reviewed, Increase in interstitial prominence relative to the previous exam suggesting interstitial edema or interstitial pneumonitis Impression . IMPRESSION: 1. [id number] respiratory failure, multifactorial in etiology. 2. Abnormal chest x-ray. 3. Shock, septic versus hypovolemic. 4. Excessive yeast infection. 5. Acute kidney injury on chronic renal insufficiency. 6. Leukocytosis. 7. Anemia. 8. Congestive heart failure. 9. Chronic obstructive pulmonary disease. 10. Urinary tract infection. Plan . PLAN AND RECOMMENDATIONS: 1. Titrate FiO2 to keep O2 saturation 92%. 2. Bronchodilator. 3. Inhaled corticosteroid. 4. taper Solu-Cortef. The patient has had on prednisone. On and off for a long time. 5. Continue Diflucan and Rocephin. 6. Follow up cultures. 7. Fluid resuscitation. 8. Nephrology and ID are consulted. 9. Heparin for deep venous thrombosis prophylaxis. 10. protonix for stress ulcer prophylaxis. 11. Monitor respiratory status very closely. 12. Continue pressors to keep mean arterial pressure 65. 13. The findings and recommendations were discussed with the patient, her daughter and RN. ALAN IYER MD Dec 10, 2016 07:01
[2016-12-10] MEDS: HYDROCORTISONE SOD SUCC/PF 100 MG/2 ML VIAL. IV SCH ×3 (07:13→22:00)
[2016-12-10] MEDS: BUDESONIDE 0.5 MG/2 ML NEBU. NEB SCH ×2 (07:36→20:18)
[2016-12-10] MEDS: IPRATRPIUM/ALBUTEROL 0.5/2.5MG 3 ML NEBU. NEB SCH ×4 (07:36→20:17)
[2016-12-10] MEDS: SODIUM BICARBONATE VIAL 150 MEQ in IV DEXTROSE 5% 1,000 ML IV SCH ×2 (08:00→20:35)
--- NOTE | 2016-12-10 08:44 | PDOC ---
Infectious Disease Note Subjective Subjective Feeling better + cough with phlegm production. Supplemental O2 4LNC BP stable. off Levophed ROS ROS GEN: Denies fevers, chills, sweats CV: Denies chest pain RESP: Denies shortness of air GI: Denies n/v/d Vital Sign Vital Signs Vital Signs Date Time Temp Pulse Resp B/P Pulse Ox O2 Delivery O2 Flow Rate FiO2 12/10/16 07:37 94 Nasal Cannula 4.0 12/10/16 06:00 81 17 126/63 12/10/16 05:00 98.0 98.0 Physical Exam PHYSICAL EXAM GENERAL: Propped up in bed, alert, NAD HEENT: PERRL, OC/OP clear. 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 Labs Lab Laboratory Tests Test 12/09/16 08:37 12/09/16 09:05 12/09/16 12:55 12/09/16 13:55 Glucose (Fingerstick) 123mg/dL (70-99) 152mg/dL (70-99) White Blood Count 27.6x10^3/uL (4.0-11.0) Red Blood Count 3.46x10^6/uL (3.50-5.40) Hemoglobin 9.9g/dL (12.0-15.5) Hematocrit 31.7% (36.0-47.0) Mean Corpuscular Volume 92fL (79-100) Mean Corpuscular Hemoglobin 29pg (25-35) Mean Corpuscular Hemoglobin Concent 31g/dL (31-37) Red Cell Distribution Width 16.8% (11.5-14.5) Platelet Count 381x10^3/uL (140-400) Neutrophils (%) (Auto) 84% (31-73) Lymphocytes (%) (Auto) 11% (24-48) Monocytes (%) (Auto) 5% (0-9) Eosinophils (%) (Auto) 0% (0-3) Basophils (%) (Auto) 0% (0-3) Neutrophils # (Auto) 23.0x10^3uL (1.8-7.7) Lymphocytes # (Auto) 2.9x10^3/uL (1.0-4.8) Monocytes # (Auto) 1.4x10^3/uL (0.0-1.1) Eosinophils # (Auto) 0.0x10^3/uL (0.0-0.7) Basophils # (Auto) 0.1x10^3/uL (0.0-0.2) Segmented Neutrophils % 67% (35-66) Band Neutrophils % 17% (0-9) Lymphocytes % 11% (24-48) Monocytes % 5% (0-10) Platelet Estimate Adequate (ADEQUATE) Reticulocyte Count (auto) 1.9% (0.5-2.5) Sodium Level 137mmol/L (136-145) Potassium Level 4.6mmol/L (3.5-5.1) Chloride Level 105mmol/L (98-107) Carbon Dioxide Level 15mmol/L (21-32) Anion Gap 17 (6-14) Blood Urea Nitrogen 68mg/dL (7-20) Creatinine 3.8mg/dL (0.6-1.0) Estimated GFR (Cockcroft-Gault) 11.5 BUN/Creatinine Ratio 18 (6-20) Glucose Level 125mg/dL (70-99) Lactic Acid Level 1.8mmol/L (0.4-2.0) Uric Acid 4.6mg/dL (2.6-6.0) Calcium Level 7.9mg/dL (8.5-10.1) Total Bilirubin 0.3mg/dL (0.2-1.0) Aspartate Amino Transf (AST/SGOT) 16U/L (15-37) Alanine Aminotransferase (ALT/SGPT) 8U/L (14-59) Alkaline Phosphatase 72U/L (46-116) Creatine Kinase 95U/L (26-192) Troponin I Quantitative < 0.017ng/mL (0.000-0.055) Total Protein 6.0g/dL (6.4-8.2) Albumin 2.0g/dL (3.4-5.0) Albumin/Globulin Ratio 0.5 (1.0-1.7) Urine Collection Type Unknown Urine Color Yellow Urine Clarity Clear Urine pH 5.0 Urine Specific [place] 1.020 Urine Protein 30.3mg/dL (Not Estab.) Urine Glucose (UA) Negativemg/dL (NEG) Urine Ketones (Stick) Negativemg/dL (NEG) Urine Blood Negative (NEG) Urine Nitrite Negative (NEG) Urine Bilirubin Small (NEG) Urine Urobilinogen Dipstick 0.2mg/dL (0.2 mg/dL) Urine Leukocyte Esterase Negative (NEG) Urine RBC 0/HPF (0-2) Urine WBC 0/HPF (0-4) Urine Squamous Epithelial Cells Few/LPF Urine Bacteria 0/HPF (0-FEW) Urine Hyaline Casts Many/HPF Urine Mucus Slight/LPF Urine Random Creatinine 85.4mg/dL (Not Estab.) Urine Random Sodium 56mmol/L (Not Estab.) Urine Creatinine 85.4mg/dL (Not Estab.) Urine Protein/Creatinine Ratio 355mg/g creat (0-200) Test 12/09/16 18:09 12/10/16 05:00 Glucose (Fingerstick) 217mg/dL (70-99) Hemoglobin 8.8g/dL (12.0-15.5) Sodium Level 138mmol/L (136-145) Potassium Level 4.0mmol/L (3.5-5.1) Chloride Level 103mmol/L (98-107) Carbon Dioxide Level 24mmol/L (21-32) Anion Gap 11 (6-14) Blood Urea Nitrogen 63mg/dL (7-20) Creatinine 3.0mg/dL (0.6-1.0) Estimated GFR (Cockcroft-Gault) 15.1 Glucose Level 232mg/dL (70-99) Calcium Level 7.9mg/dL (8.5-10.1) Phosphorus Level 4.0mg/dL (2.6-4.7) Magnesium Level 1.8mg/dL (1.8-2.4) Iron Level 32ug/dL (50-170) Total Iron Binding Capacity 171ug/dL (250-450) Iron Saturation 19% (15-34) Ferritin 175ng/mL (8-252) Albumin 1.8g/dL (3.4-5.0) Micro URINE CULTURE RES 1 Preliminary No growth after 18-24 hours. BLOOD CULTURE Preliminary NO GROWTH AFTER 1 DAY Objective Assessment Hypotension, most likely related to dehydration. Extensive yeast infection under the breast and into the groin. Acute kidney injury on CRI. - Not started on dialysis. s/p temp HDC cath. Debility. Leukocytosis, now on steroids Congestive heart failure. Chronic obstructive pulmonary disease. Urinary tract infection. UC no growth MRSA nares + Plan Plan of Care Rocephin and fluconazole cultures NGTD Supportive care D/w daughter Patient seen and examined. Chart reviewed in detail. 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
[2016-12-10] MEDS: PANTOPRAZOLE 40 MG TABLET. PO SCH (09:04)
[2016-12-10] MEDS: ASPIRIN ENTERIC COATED 81 MG TABLET.DR. PO SCH (09:04)
[2016-12-10] MEDS: FERROUS SULFATE 325 MG TABLET PO SCH (09:04)
[2016-12-10] MEDS: ALLOPURINOL 100 MG TABLET. PO SCH (09:04)
[2016-12-10] MEDS: HEPARIN PF for SUB-Q USE 5,000 UNIT/0.5 ML VIAL. SQ SCH ×2 (09:05→20:35)
[2016-12-10] MEDS: NYSTATIN TOPICAL POWDER 15GM BOTTLE. TP SCH ×4 (09:06→20:36)
[2016-12-10] MEDS: INSULIN ASPART 300 UNITS/3 ML INSULN.PEN SQ SCH ×3 (09:07→17:00)
--- NOTE | 2016-12-10 09:09 | PDOC ---
CARDIOLOGY PROGRESS NOTE SUBJECTIVE: No acute events overnight. Off Levophed Continues to struggle with cough, sputum production. ON abx. OBJECTIVE: Vital SIgns: Vital Signs Date Time Temp Pulse Resp B/P Pulse Ox O2 Delivery O2 Flow Rate FiO2 12/10/16 07:37 94 Nasal Cannula 4.0 12/10/16 06:00 81 17 126/63 12/10/16 05:00 98.0 98.0 I & O Intake and Output 12/10/16 07:00 Intake Total 2944 ml Output Total 1135 ml Balance 1809 ml Intake Oral 250 ml IV Total 2694 ml Output Urine Total 1135 ml Objective: PHYSICAL EXAM GENERAL: Propped up in bed, alert, NAD HEENT: PERRL, OC/OP clear. missing teeth NECK: Supple LUNGS: Mild congestion, nonlabored HEART: S1S2, regular ABD: Obese, soft, NT : Rossi EXT: No edema, no cyanosis BUSINESS ASSISTANT: Alert, oriented x 3, no focal neurologic deficit SKIN: Erythema and excoriations in groin skin folds CURRENT MEDICATIONS: asa, atorvastatin Coreg, lisinopril on hold DIAGNOSTIC TESTING: Cr 3.0 Improved from 4.4 ASSESSMENT: 1. REY and sepsis from severe candidiasis 2. No clear evidence of acute heart failure. Problems: PLAN: 1. restart home cv meds when BP stable and sepsis resolved. 2. Otherwise supportive care, patient with normal LV function. 3. Monitor I/O 's closely, if significantly positive, may need diuresis in future. Will follow peripherally. MAT RUEDA MD Dec 10, 2016 09:09
--- NOTE | 2016-12-10 10:42 | PDOC ---
PROGRESS NOTES Chief Complaint Chief Complaint 1. Severe SEPSIS with HYPOTENSIOn on pressors sec to SEVERE CANDIDIASIS, intertriginous areas 2. CHronic STEROID use sec to AECOPD, past admits 3. REY on CKD - baseline? 4. Hx CHF? per documentation 5. 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 OLiguric renal failure 8. 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 HTN hx nOW HYPOTENSIVE 10. DYslipidemia History of Present Illness History of Present Illness 100% better as per agency development manager at bedside RAsh inspected - skip tender, some skin maceration NO fevers ON antifungals IV and topical with ID managing HAs not ambulated yet out of bed Needed 5mcgs levophed alst night NOw on standby SBP 130s. PLAN: Keep in ICU for now IF no need for levophed tonight, may t/o ICU lisa AM CPM the rest ENcourage out of bed to chair at least Dw pt and family and RELAY ADJUSTER LAbs erin BMP lisa - crea higher than baseline Vitals Vitals Vital Signs Date Time Temp Pulse Resp B/P Pulse Ox O2 Delivery O2 Flow Rate FiO2 12/10/16 07:37 94 Nasal Cannula 4.0 12/10/16 06:00 81 17 126/63 12/10/16 05:00 98.0 98.0 Physical Exam General: Alert, Oriented X3, Cooperative, No acute distress Lungs: Crackles Abdomen: Normal bowel sounds, Soft, No tenderness, No hepatosplenomegaly, No masses Extremities: No clubbing, No cyanosis, No edema, Normal pulses, No tenderness/ swelling Skin: Other (erythematous rash underneath breasts, encompassing whole line of the underbreasts with extension to the breasts itself, similar rash on bilateral groins and inner thigh, no appreciable open lesions though or weeping) Labs LABS Laboratory Tests Test 12/09/16 12:55 12/09/16 13:55 12/09/16 18:09 12/10/16 05:00 Glucose (Fingerstick) 152mg/dL (70-99) 217mg/dL (70-99) Urine Collection Type Unknown Urine Color Yellow Urine Clarity Clear Urine pH 5.0 Urine Specific [place] 1.020 Urine Protein 30.3mg/dL (Not Estab.) Urine Glucose (UA) Negativemg/dL (NEG) Urine Ketones (Stick) Negativemg/dL (NEG) Urine Blood Negative (NEG) Urine Nitrite Negative (NEG) Urine Bilirubin Small (NEG) Urine Urobilinogen Dipstick 0.2mg/dL (0.2 mg/dL) Urine Leukocyte Esterase Negative (NEG) Urine RBC 0/HPF (0-2) Urine WBC 0/HPF (0-4) Urine Squamous Epithelial Cells Few/LPF Urine Bacteria 0/HPF (0-FEW) Urine Hyaline Casts Many/HPF Urine Mucus Slight/LPF Urine Random Creatinine 85.4mg/dL (Not Estab.) Urine Random Sodium 56mmol/L (Not Estab.) Urine Creatinine 85.4mg/dL (Not Estab.) Urine Protein/Creatinine Ratio 355mg/g creat (0-200) Hemoglobin 8.8g/dL (12.0-15.5) Sodium Level 138mmol/L (136-145) Potassium Level 4.0mmol/L (3.5-5.1) Chloride Level 103mmol/L (98-107) Carbon Dioxide Level 24mmol/L (21-32) Anion Gap 11 (6-14) Blood Urea Nitrogen 63mg/dL (7-20) Creatinine 3.0mg/dL (0.6-1.0) Estimated GFR (Cockcroft-Gault) 15.1 Glucose Level 232mg/dL (70-99) Calcium Level 7.9mg/dL (8.5-10.1) Phosphorus Level 4.0mg/dL (2.6-4.7) Magnesium Level 1.8mg/dL (1.8-2.4) Iron Level 32ug/dL (50-170) Total Iron Binding Capacity 171ug/dL (250-450) Iron Saturation 19% (15-34) Ferritin 175ng/mL (8-252) Albumin 1.8g/dL (3.4-5.0) Review of Systems Review of Systems pain skin folds, no inc in soa, cp, n/v/d Assessment and Plan Assessmemt and Plan Problems Medical Problems: (1) Acute renal failure Status: Acute (2) Cellulitis Status: Acute (3) Severe sepsis Status: Acute (4) Yeast dermatitis Status: Acute Problems: Comment Review of Relevant I have reviewed the following items [place] (where applicable) has been applied. Labs Laboratory Tests Test 12/08/16 19:50 12/08/16 20:25 12/08/16 20:59 12/08/16 22:30 White Blood Count 15.9x10^3/uL (4.0-11.0) Red Blood Count 2.82x10^6/uL (3.50-5.40) Hemoglobin 8.9g/dL (12.0-15.5) Hematocrit 25.5% (36.0-47.0) Mean Corpuscular Volume 90fL (79-100) Mean Corpuscular Hemoglobin 32pg (25-35) Mean Corpuscular Hemoglobin Concent 35g/dL (31-37) Red Cell Distribution Width 16.3% (11.5-14.5) Platelet Count 233x10^3/uL (140-400) Neutrophils (%) (Auto) 82% (31-73) Lymphocytes (%) (Auto) 11% (24-48) Monocytes (%) (Auto) 6% (0-9) Eosinophils (%) (Auto) 1% (0-3) Basophils (%) (Auto) 1% (0-3) Neutrophils # (Auto) 13.0x10^3uL (1.8-7.7) Lymphocytes # (Auto) 1.8x10^3/uL (1.0-4.8) Monocytes # (Auto) 0.9x10^3/uL (0.0-1.1) Eosinophils # (Auto) 0.1x10^3/uL (0.0-0.7) Basophils # (Auto) 0.1x10^3/uL (0.0-0.2) Segmented Neutrophils % 60% (35-66) Band Neutrophils % 24% (0-9) Lymphocytes % 12% (24-48) Monocytes % 4% (0-10) Toxic Granulation Slight Platelet Estimate Adequate (ADEQUATE) Polychromasia Slight Sodium Level 135mmol/L (136-145) Potassium Level 4.3mmol/L (3.5-5.1) Chloride Level 100mmol/L (98-107) Carbon Dioxide Level 17mmol/L (21-32) Anion Gap 18 (6-14) Blood Urea Nitrogen 69mg/dL (7-20) Creatinine 4.4mg/dL (0.6-1.0) Estimated GFR (Cockcroft-Gault) 9.7 Glucose Level 107mg/dL (70-99) Lactic Acid Level 2.6mmol/L (0.4-2.0) Calcium Level 7.9mg/dL (8.5-10.1) Urine Collection Type U cath Urine Color Dk yellow Urine Clarity Cloudy Urine pH 5.0 Urine Specific [place] 1.025 Urine Protein Negativemg/dL (NEG-TRACE) Urine Glucose (UA) Negativemg/dL (NEG) Urine Ketones (Stick) Negativemg/dL (NEG) Urine Blood Negative (NEG) Urine Nitrite Negative (NEG) Urine Bilirubin Large (NEG) Urine Urobilinogen Dipstick 0.2mg/dL (0.2 mg/dL) Urine Leukocyte Esterase Moderate (NEG) Urine RBC 0/HPF (0-2) Urine WBC 20-40/HPF (0-4) Urine Squamous Epithelial Cells Few/LPF Urine Transitional Epithelial Cells Occ/LPF Urine Renal Epithelial Cells Occ/LPF Urine Bacteria Few/HPF (0-FEW) Urine Mucus Slight/LPF Nasal Screen 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) Test 12/09/16 00:20 12/09/16 08:37 12/09/16 09:05 12/09/16 12:55 Lactic Acid Level 1.6mmol/L (0.4-2.0) 1.8mmol/L (0.4-2.0) Glucose (Fingerstick) 123mg/dL (70-99) 152mg/dL (70-99) White Blood Count 27.6x10^3/uL (4.0-11.0) Red Blood Count 3.46x10^6/uL (3.50-5.40) Hemoglobin 9.9g/dL (12.0-15.5) Hematocrit 31.7% (36.0-47.0) Mean Corpuscular Volume 92fL (79-100) Mean Corpuscular Hemoglobin 29pg (25-35) Mean Corpuscular Hemoglobin Concent 31g/dL (31-37) Red Cell Distribution Width 16.8% (11.5-14.5) Platelet Count 381x10^3/uL (140-400) Neutrophils (%) (Auto) 84% (31-73) Lymphocytes (%) (Auto) 11% (24-48) Monocytes (%) (Auto) 5% (0-9) Eosinophils (%) (Auto) 0% (0-3) Basophils (%) (Auto) 0% (0-3) Neutrophils # (Auto) 23.0x10^3uL (1.8-7.7) Lymphocytes # (Auto) 2.9x10^3/uL (1.0-4.8) Monocytes # (Auto) 1.4x10^3/uL (0.0-1.1) Eosinophils # (Auto) 0.0x10^3/uL (0.0-0.7) Basophils # (Auto) 0.1x10^3/uL (0.0-0.2) Segmented Neutrophils % 67% (35-66) Band Neutrophils % 17% (0-9) Lymphocytes % 11% (24-48) Monocytes % 5% (0-10) Platelet Estimate Adequate (ADEQUATE) Reticulocyte Count (auto) 1.9% (0.5-2.5) Sodium Level 137mmol/L (136-145) Potassium Level 4.6mmol/L (3.5-5.1) Chloride Level 105mmol/L (98-107) Carbon Dioxide Level 15mmol/L (21-32) Anion Gap 17 (6-14) Blood Urea Nitrogen 68mg/dL (7-20) Creatinine 3.8mg/dL (0.6-1.0) Estimated GFR (Cockcroft-Gault) 11.5 BUN/Creatinine Ratio 18 (6-20) Glucose Level 125mg/dL (70-99) Uric Acid 4.6mg/dL (2.6-6.0) Calcium Level 7.9mg/dL (8.5-10.1) Total Bilirubin 0.3mg/dL (0.2-1.0) Aspartate Amino Transf (AST/SGOT) 16U/L (15-37) Alanine Aminotransferase (ALT/SGPT) 8U/L (14-59) Alkaline Phosphatase 72U/L (46-116) Creatine Kinase 95U/L (26-192) Troponin I Quantitative < 0.017ng/mL (0.000-0.055) Total Protein 6.0g/dL (6.4-8.2) Albumin 2.0g/dL (3.4-5.0) Albumin/Globulin Ratio 0.5 (1.0-1.7) Test 12/09/16 13:55 12/09/16 18:09 12/10/16 05:00 Urine Collection Type Unknown Urine Color Yellow Urine Clarity Clear Urine pH 5.0 Urine Specific [place] 1.020 Urine Protein 30.3mg/dL (Not Estab.) Urine Glucose (UA) Negativemg/dL (NEG) Urine Ketones (Stick) Negativemg/dL (NEG) Urine Blood Negative (NEG) Urine Nitrite Negative (NEG) Urine Bilirubin Small (NEG) Urine Urobilinogen Dipstick 0.2mg/dL (0.2 mg/dL) Urine Leukocyte Esterase Negative (NEG) Urine RBC 0/HPF (0-2) Urine WBC 0/HPF (0-4) Urine Squamous Epithelial Cells Few/LPF Urine Bacteria 0/HPF (0-FEW) Urine Hyaline Casts Many/HPF Urine Mucus Slight/LPF Urine Random Creatinine 85.4mg/dL (Not Estab.) Urine Random Sodium 56mmol/L (Not Estab.) Urine Creatinine 85.4mg/dL (Not Estab.) Urine Protein/Creatinine Ratio 355mg/g creat (0-200) Glucose (Fingerstick) 217mg/dL (70-99) Hemoglobin 8.8g/dL (12.0-15.5) Sodium Level 138mmol/L (136-145) Potassium Level 4.0mmol/L (3.5-5.1) Chloride Level 103mmol/L (98-107) Carbon Dioxide Level 24mmol/L (21-32) Anion Gap 11 (6-14) Blood Urea Nitrogen 63mg/dL (7-20) Creatinine 3.0mg/dL (0.6-1.0) Estimated GFR (Cockcroft-Gault) 15.1 Glucose Level 232mg/dL (70-99) Calcium Level 7.9mg/dL (8.5-10.1) Phosphorus Level 4.0mg/dL (2.6-4.7) Magnesium Level 1.8mg/dL (1.8-2.4) Iron Level 32ug/dL (50-170) Total Iron Binding Capacity 171ug/dL (250-450) Iron Saturation 19% (15-34) Ferritin 175ng/mL (8-252) Albumin 1.8g/dL (3.4-5.0) Laboratory Tests Test 12/09/16 12:55 12/09/16 13:55 12/09/16 18:09 12/10/16 05:00 Glucose (Fingerstick) 152mg/dL (70-99) 217mg/dL (70-99) Urine Collection Type Unknown Urine Color Yellow Urine Clarity Clear Urine pH 5.0 Urine Specific [place] 1.020 Urine Protein 30.3mg/dL (Not Estab.) Urine Glucose (UA) Negativemg/dL (NEG) Urine Ketones (Stick) Negativemg/dL (NEG) Urine Blood Negative (NEG) Urine Nitrite Negative (NEG) Urine Bilirubin Small (NEG) Urine Urobilinogen Dipstick 0.2mg/dL (0.2 mg/dL) Urine Leukocyte Esterase Negative (NEG) Urine RBC 0/HPF (0-2) Urine WBC 0/HPF (0-4) Urine Squamous Epithelial Cells Few/LPF Urine Bacteria 0/HPF (0-FEW) Urine Hyaline Casts Many/HPF Urine Mucus Slight/LPF Urine Random Creatinine 85.4mg/dL (Not Estab.) Urine Random Sodium 56mmol/L (Not Estab.) Urine Creatinine 85.4mg/dL (Not Estab.) Urine Protein/Creatinine Ratio 355mg/g creat (0-200) Hemoglobin 8.8g/dL (12.0-15.5) Sodium Level 138mmol/L (136-145) Potassium Level 4.0mmol/L (3.5-5.1) Chloride Level 103mmol/L (98-107) Carbon Dioxide Level 24mmol/L (21-32) Anion Gap 11 (6-14) Blood Urea Nitrogen 63mg/dL (7-20) Creatinine 3.0mg/dL (0.6-1.0) Estimated GFR (Cockcroft-Gault) 15.1 Glucose Level 232mg/dL (70-99) Calcium Level 7.9mg/dL (8.5-10.1) Phosphorus Level 4.0mg/dL (2.6-4.7) Magnesium Level 1.8mg/dL (1.8-2.4) Iron Level 32ug/dL (50-170) Total Iron Binding Capacity 171ug/dL (250-450) Iron Saturation 19% (15-34) Ferritin 175ng/mL (8-252) Albumin 1.8g/dL (3.4-5.0) Microbiology 12/08/16 Blood Culture - Preliminary, Resulted NO GROWTH AFTER 1 DAY 12/08/16 Urine Culture - Preliminary, Resulted 12/08/16 Urine Culture Result 1 (VICENTE) - Preliminary, Resulted Medications Current Medications Fentanyl Citrate 25 mcg 25 mcg PRN Q15MIN PRN IV PAIN GREATER THAN 3/10 Last administered on 12/08/16 20:37; Start 12/08/16 at 19:45; Stop 12/09/16 at 19:44 ; Status DC Sodium Chloride (Iv Sodium Chloride 0.9% 1000ml Bag) 1,000 ml @ 1,000 mls/hr Q1H IV Last administered on 12/08/16 20:20; Start 12/08/16 at 20:00; Stop at 20:59; Status DC Ondansetron HCl (Zofran) 4 mg 1X ONCE IV Last administered on 12/08/16 20:21 ; Start 12/08/16 at 20:00; Stop 12/08/16 at 20:01; Status DC Nystatin 1 jaison 1 jaison BID TP Last administered on 12/08/16 20:24; Start at 20:15; Stop 12/09/16 at 08:28; Status DC Ceftriaxone Sodium/Sodium Chloride (Rocephin/Iv Sodium Chloride 0.9% 50ml) 50 ml @ 100 mls/hr Q24H IV Last administered on 12/09/16 20:34; Start 12/09/16 at 20:00 Vancomycin HCl 1 each 1 each PRN DAILY PRN MC SEE COMMENTS Last administered on 12/08/16 20:57; Start 12/08/16 at 19:45; Stop 12/09/16 at 07:57; Status DC Ceftriaxone Sodium 50 ml @ 100 mls/hr 1X ONCE IV Last administered on 20:23; Start 12/08/16 at 20:15; Stop 12/08/16 at 20:44; Status DC Vancomycin HCl 1.75 gm/Sodium Chloride 500 ml @ 250 mls/hr 1X ONCE IV Last administered on 12/08/16 20:19; Start 12/08/16 at 20:30; Stop 12/08/16 at 22:29 ; Status DC Fluconazole/ Sodium Chloride (Diflucan 400mg/ 200ml Premix) 200 ml @ 100 mls/ hr Q24H IV Last administered on 12/08/16 21:00; Start 12/08/16 at 21:00; Stop 12/08/16 at 22:00; Status DC Vancomycin HCl 1 each 1 each 1X ONCE MC ; Start 12/10/16 at 20:00; Stop at 20:00; Status DC Sodium Chloride 1,000 ml @ 1,000 mls/hr 1X ONCE IV Last administered on 21:02; Start 12/08/16 at 21:00; Stop 12/08/16 at 21:59; Status DC Fluconazole/ Sodium Chloride (Diflucan 200mg/ 100ml Premix) 100 ml @ 100 mls/ hr Q24H IV Last administered on 12/09/16 20:33; Start 12/09/16 at 21:00 Ondansetron HCl (Zofran) 4 mg PRN Q8HRS PRN IV NAUSEA/VOMITING Last administered on 12/09/16 02:05; Start 12/08/16 at 21:30; Stop 12/09/16 at 07:55 ; Status DC Fentanyl Citrate 50 mcg 50 mcg PRN Q2HR PRN IV PAIN; Start 12/08/16 at 21:30; Stop 12/09/16 at 21:29; Status DC Sodium Chloride (Iv Sodium Chloride 0.9% 1000ml Bag) 1,000 ml @ 125 mls/hr Q8H IV Last administered on 12/09/16 05:42; Start 12/08/16 at 21:30; Stop at 08:48; Status DC Acetaminophen 650 mg 650 mg PRN Q4HRS PRN PO FEVER; Start 12/08/16 at 21:30; Stop 12/09/16 at 21:29; Status DC Norepinephrine Bitartrate/Sodium Chloride (Levophed Vial/ Iv Sodium Chloride 0.9 % 250ml) 258 ml @ 0 mls/hr 1X ONCE IV Last administered on 12/08/16 22:00; Start 12/08/16 at 22:00; Stop 12/08/16 at 22:01; Status DC Ondansetron HCl (Zofran) 4 mg PRN Q6HRS PRN IV NAUSEA/VOMITING 1ST CHOICE Last administered on 12/09/16 09:06; Start 12/09/16 at 07:52 Insulin Aspart (Novolog) 0-9 UNITS TIDWMEALS SQ ; Start 12/09/16 at 08:00; Stop 12/09/16 at 08:19; Status DC Dextrose 12.5 gm PRN Q15MIN PRN IV SEE COMMENTS; Start 12/09/16 at 08:00 Morphine Sulfate 2 mg PRN Q2HR PRN IV PAIN SEVERE; Start 12/09/16 at 08:00 Oxycodone/ Acetaminophen (Percocet 5/325) 1 tab PRN Q6HRS PRN PO PAIN MOD TO SEV; Start 12/09/16 at 08:00 Allopurinol (Zyloprim) 100 mg DAILY PO Last administered on 12/10/16 09:04; Start 12/09/16 at 09:00 Aspirin (Ecotrin) 81 mg DAILY08 PO Last administered on 12/10/16 09:04; Start 12/09/16 at 09:00 Carvedilol (Coreg) 6.25 mg BIDWMEALS PO ; Start 12/09/16 at 08:30; Stop at 15:18; Status DC Ferrous Sulfate (Feosol) 325 mg DAILY08 PO Last administered on 12/10/16 09:04 ; Start 12/09/16 at 09:00 Furosemide (Lasix) 40 mg DAILY PO ; Start 12/09/16 at 09:00; Stop 12/09/16 at 09 :00; Status DC Albuterol Sulfate (Ventolin Neb Soln) 2.5 mg PRN Q4HRS PRN INH CONGESTION; Start 12/09/16 at 08:00 Lisinopril (Prinivil) 30 mg DAILY PO ; Start 12/09/16 at 09:00; Stop 12/09/16 at 09:00; Status DC Nystatin (Nystop) 1 jaison BID TP ; Start 12/09/16 at 09:00; Stop 12/09/16 at 09:00 ; Status DC Budesonide (Pulmicort) 0.5 mg RTBID NEB ; Start 12/09/16 at 08:30; Stop at 08:30; Status DC Atorvastatin Calcium (Lipitor) 5 mg QHS PO Last administered on 12/09/16 20:33 ; Start 12/09/16 at 21:00 Budesonide (Pulmicort) 0.5 mg RTBID NEB Last administered on 12/10/16 07:36; Start 12/09/16 at 08:30 Albuterol Sulfate (Ventolin Neb Soln) 2.5 mg RTQID NEB ; Start 12/09/16 at 12:00 ; Stop 12/09/16 at 12:00; Status DC Nystatin (Nystop) 1 jaison QID TP Last administered on 12/10/16 09:06; Start at 09:00 Heparin Sodium (Porcine) 5,000 unit BID SQ Last administered on 12/10/16 09:05 ; Start 12/09/16 at 09:00 Insulin Aspart (Novolog) 0-7 UNITS TIDWMEALS SQ Last administered on 12/10/16 09:07; Start 12/09/16 at 12:00 Dextrose 12.5 gm PRN Q15MIN PRN IV SEE COMMENTS; Start 12/09/16 at 08:30; Status UNV Zinc Acetate/ Diphenhydramine (Benadryl Topical) 1 jaison PRN BID PRN TP pruritis ; Start 12/09/16 at 08:30 Albuterol/ Ipratropium 3 ml 3 ml RTQID NEB Last administered on 12/10/16 07:36 ; Start 12/09/16 at 12:00 Magnesium Sulfate/ Dextrose 50 ml @ 25 mls/hr PRN DAILY PRN IV for Mag < 1.7 on am labs; Start 12/09/16 at 08:45 Sodium Chloride 500 ml @ 0 mls/hr QID PRN IV UO< 30cc/hr over previous 6hrs; Start 12/09/16 at 08:45 Sodium Bicarbonate/ Dextrose 1,150 ml @ 100 mls/hr [id number] IV Last administered on 12/10/16 08:00; Start 12/09/16 at 09:00 Lidocaine/Sodium Bicarbonate (Buffered Lidocaine 1%) 3 ml 1X ONCE IJ Last administered on 12/09/16 11:08; Start 12/09/16 at 09:15; Stop 12/09/16 at 09:16 ; Status DC Heparin Sodium/ Sodium Chloride 60 unit 1X ONCE IV Last administered on 11:07; Start 12/09/16 at 09:15; Stop 12/09/16 at 09:16; Status DC Heparin Sodium (Porcine) 2,500 unit 1X ONCE INT CAT Last administered on 11:07; Start 12/09/16 at 09:15; Stop 12/09/16 at 09:16; Status DC Darbepoetin Krzysztof (Aranesp) 60 mcg [id number] SQ Last administered on 12/09/16 20 :35; Start 12/09/16 at 21:00 Heparin Sodium (Porcine) 10,000 unit STK-MED ONCE .ROUTE ; Start 12/09/16 at 09: 34; Stop 12/09/16 at 09:35; Status DC Hydrocortisone Sodium Succinate (Solu-Cortef) 100 mg Q8HRS IV Last administered on 12/09/16 22:09; Start 12/09/16 at 10:30; Stop 12/10/16 at 07:03 ; Status DC Pantoprazole Sodium 40 mg 40 mg DAILYAC PO Last administered on 12/10/16 09:04 ; Start 12/09/16 at 11:00 Norepinephrine Bitartrate/Sodium Chloride (Levophed Vial/ Iv Sodium Chloride 0.9 % 250ml) 258 ml @ 0 mls/hr CONT PRN IV SEE I/O RECORD; Start 12/09/16 at 13:30 Hydrocortisone Sodium Succinate (Solu-Cortef) 50 mg Q8HRS IV Last administered on 12/10/16 07:13; Start 12/10/16 at 07:30 Active Scripts Active Bactrim Ds Tablet (Sulfamethoxazole/Trimethoprim) 1 Each Tablet 1 Tab PO BID Nystatin 15 Gm Powder 15 Gm TP BID Lisinopril 10 Mg Tablet 30 Mg PO DAILY Reported Tylenol (Acetaminophen) 325 Mg Tablet 650 Mg PO TID PRN PRN Metformin Hcl 500 Mg Tablet 1 Tab PO TID Aspir 81 (Aspirin) 81 Mg Tablet.dr 1 Tab PO DAILY Allopurinol 100 Mg Tablet 1 Tab PO DAILY Iron Supplement (Ferrous Sulfate) 325 Mg Tablet 1 Tab PO DAILY Advair 250-50 Diskus (Fluticasone/Salmeterol) 1 Each Disk.w.dev 1 Puff IH BID Duoneb 0.5-3(2.5) Mg/3 Ml (Albuterol/Ipratropium) 3 Ml Ampul.neb 3 Ml IH Q4HRS PRN Pravastatin Sodium 10 Mg Tablet 1 Tab PO DAILY Carvedilol 6.25 Mg Tablet 1 Tab PO BID Furosemide 40 Mg Tablet 1 Tab PO DAILY Vitals/I & O Vital Sign - Last 24 Hours 12/09/16 12/09/16 12/09/16 12/09/16 11:00 11:47 12:00 12:00 Temp 97.9 97.9 Pulse 78 74 Resp 26 B/P 102/47 109/50 Pulse Ox 100 99 97 O2 Delivery Nasal Cannula Nasal Cannula Nasal Cannula Nasal Cannula O2 Flow Rate 4.0 4.0 4.0 4.0 12/09/16 12/09/16 12/09/16 12/09/16 13:00 14:00 15:00 16:00 Pulse 76 72 76 78 Resp 20 19 20 B/P 102/48 105/48 91/44 96/54 Pulse Ox 93 97 96 97 O2 Delivery Nasal Cannula Nasal Cannula Nasal Cannula Nasal Cannula O2 Flow Rate 4.0 4.0 4.0 4.0 12/09/16 12/09/16 12/09/16 12/09/16 16:00 16:00 16:17 17:00 Pulse 78 77 Resp 20 B/P 96/54 104/46 Pulse Ox 96 95 98 O2 Delivery Nasal Cannula Nasal Cannula Nasal Cannula Nasal Cannula O2 Flow Rate 4.0 4.0 4.0 4.0 12/09/16 12/09/16 12/09/16 12/09/16 18:00 19:00 19:54 20:00 Temp 97.6 97.6 Pulse 80 80 76 Resp 22 B/P 125/55 112/53 97/47 Pulse Ox 97 97 93 95 O2 Delivery Nasal Cannula Nasal Cannula Nasal Cannula Nasal Cannula O2 Flow Rate 4.0 4.0 4.0 4.0 12/09/16 12/09/16 12/09/16 12/09/16 21:00 21:00 22:00 23:00 Pulse 79 81 70 Resp 17 B/P 94/43 91/45 77/44 Pulse Ox 96 95 95 O2 Delivery Nasal Cannula Nasal Cannula Nasal Cannula Nasal Cannula O2 Flow Rate 4.0 4.0 4.0 4.0 3/24/17 12/10/16 12/10/16 12/10/16 23:30 00:00 00:00 01:00 Temp 97.6 97.6 Pulse 70 71 69 Resp 18 B/P 103/45 106/51 88/44 Pulse Ox 95 93 96 O2 Delivery Nasal Cannula Nasal Cannula Nasal Cannula Nasal Cannula O2 Flow Rate 4.0 4.0 4.0 4.0 12/10/16 12/10/16 12/10/16 12/10/16 02:00 03:00 04:00 04:00 Pulse 80 75 78 Resp B/P 102/50 117/57 135/60 Pulse Ox 96 96 95 O2 Delivery Nasal Cannula Nasal Cannula Nasal Cannula Nasal Cannula O2 Flow Rate 4.0 4.0 4.0 4.0 12/10/16 12/10/16 12/10/16 05:00 06:00 07:37 Temp 98.0 98.0 Pulse 86 81 Resp B/P 111/56 126/63 Pulse Ox 95 93 94 O2 Delivery Nasal Cannula Nasal Cannula Nasal Cannula O2 Flow Rate 4.0 4.0 4.0 Intake and Output 12/09/16 12/09/16 12/10/16 15:00 23:00 07:00 Intake Total 1429 ml 1515 ml Output Total 130 ml 105 ml 900 ml Balance -130 ml 1324 ml 615 ml TESS LOZANO MD Dec 10, 2016 10:42
--- NOTE | 2016-12-10 11:00 | PDOC ---
PROGRESS NOTES Subjective Subjective SEEN IN FOLLOW UP OF ARF Objective Objective Vital Signs Date Time Temp Pulse Resp B/P Pulse Ox O2 Delivery O2 Flow Rate FiO2 12/10/16 07:37 94 Nasal Cannula 4.0 12/10/16 06:00 81 17 126/63 12/10/16 05:00 98.0 98.0 Intake and Output 12/10/16 07:00 Intake Total 2944 ml Output Total 1135 ml Balance 1809 ml Intake Oral 250 ml IV Total 2694 ml Output Urine Total 1135 ml Physical Exam Abdomen: Normal bowel sounds, Soft, No tenderness, No hepatosplenomegaly, No masses Heart: Regular rate, Normal S1, Normal S2, No murmurs, Gallops Extremities: No clubbing, No cyanosis, No edema, Normal pulses, No tenderness/ swelling Lungs: Normal air movement, Other (BILAT RHONCHI) Psych/Mental Status: Mental status NL, Mood NL Diagnosis RENAL FAILURE: Acute, Other (DEHYDRATION) Assessment Assessment Problems Medical Problems: (1) Acute renal failure Status: Acute (2) Cellulitis Status: Acute (3) Severe sepsis Status: Acute (4) Yeast dermatitis Status: Acute Plan Plan of Care CONT IVF. NO DIALYSIS AT THIS TIME NEEDED. Comment Review of Relevant I have reviewed the following items [place] (where applicable) has been applied. Labs Laboratory Tests Test 12/08/16 19:50 12/08/16 20:25 12/08/16 20:59 12/08/16 22:30 White Blood Count 15.9x10^3/uL (4.0-11.0) Red Blood Count 2.82x10^6/uL (3.50-5.40) Hemoglobin 8.9g/dL (12.0-15.5) Hematocrit 25.5% (36.0-47.0) Mean Corpuscular Volume 90fL (79-100) Mean Corpuscular Hemoglobin 32pg (25-35) Mean Corpuscular Hemoglobin Concent 35g/dL (31-37) Red Cell Distribution Width 16.3% (11.5-14.5) Platelet Count 233x10^3/uL (140-400) Neutrophils (%) (Auto) 82% (31-73) Lymphocytes (%) (Auto) 11% (24-48) Monocytes (%) (Auto) 6% (0-9) Eosinophils (%) (Auto) 1% (0-3) Basophils (%) (Auto) 1% (0-3) Neutrophils # (Auto) 13.0x10^3uL (1.8-7.7) Lymphocytes # (Auto) 1.8x10^3/uL (1.0-4.8) Monocytes # (Auto) 0.9x10^3/uL (0.0-1.1) Eosinophils # (Auto) 0.1x10^3/uL (0.0-0.7) Basophils # (Auto) 0.1x10^3/uL (0.0-0.2) Segmented Neutrophils % 60% (35-66) Band Neutrophils % 24% (0-9) Lymphocytes % 12% (24-48) Monocytes % 4% (0-10) Toxic Granulation Slight Platelet Estimate Adequate (ADEQUATE) Polychromasia Slight Sodium Level 135mmol/L (136-145) Potassium Level 4.3mmol/L (3.5-5.1) Chloride Level 100mmol/L (98-107) Carbon Dioxide Level 17mmol/L (21-32) Anion Gap 18 (6-14) Blood Urea Nitrogen 69mg/dL (7-20) Creatinine 4.4mg/dL (0.6-1.0) Estimated GFR (Cockcroft-Gault) 9.7 Glucose Level 107mg/dL (70-99) Lactic Acid Level 2.6mmol/L (0.4-2.0) Calcium Level 7.9mg/dL (8.5-10.1) Urine Collection Type U cath Urine Color Dk yellow Urine Clarity Cloudy Urine pH 5.0 Urine Specific [place] 1.025 Urine Protein Negativemg/dL (NEG-TRACE) Urine Glucose (UA) Negativemg/dL (NEG) Urine Ketones (Stick) Negativemg/dL (NEG) Urine Blood Negative (NEG) Urine Nitrite Negative (NEG) Urine Bilirubin Large (NEG) Urine Urobilinogen Dipstick 0.2mg/dL (0.2 mg/dL) Urine Leukocyte Esterase Moderate (NEG) Urine RBC 0/HPF (0-2) Urine WBC 20-40/HPF (0-4) Urine Squamous Epithelial Cells Few/LPF Urine Transitional Epithelial Cells Occ/LPF Urine Renal Epithelial Cells Occ/LPF Urine Bacteria Few/HPF (0-FEW) Urine Mucus Slight/LPF Nasal Screen 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) Test 12/09/16 00:20 12/09/16 08:37 12/09/16 09:05 12/09/16 12:55 Lactic Acid Level 1.6mmol/L (0.4-2.0) 1.8mmol/L (0.4-2.0) Glucose (Fingerstick) 123mg/dL (70-99) 152mg/dL (70-99) White Blood Count 27.6x10^3/uL (4.0-11.0) Red Blood Count 3.46x10^6/uL (3.50-5.40) Hemoglobin 9.9g/dL (12.0-15.5) Hematocrit 31.7% (36.0-47.0) Mean Corpuscular Volume 92fL (79-100) Mean Corpuscular Hemoglobin 29pg (25-35) Mean Corpuscular Hemoglobin Concent 31g/dL (31-37) Red Cell Distribution Width 16.8% (11.5-14.5) Platelet Count 381x10^3/uL (140-400) Neutrophils (%) (Auto) 84% (31-73) Lymphocytes (%) (Auto) 11% (24-48) Monocytes (%) (Auto) 5% (0-9) Eosinophils (%) (Auto) 0% (0-3) Basophils (%) (Auto) 0% (0-3) Neutrophils # (Auto) 23.0x10^3uL (1.8-7.7) Lymphocytes # (Auto) 2.9x10^3/uL (1.0-4.8) Monocytes # (Auto) 1.4x10^3/uL (0.0-1.1) Eosinophils # (Auto) 0.0x10^3/uL (0.0-0.7) Basophils # (Auto) 0.1x10^3/uL (0.0-0.2) Segmented Neutrophils % 67% (35-66) Band Neutrophils % 17% (0-9) Lymphocytes % 11% (24-48) Monocytes % 5% (0-10) Platelet Estimate Adequate (ADEQUATE) Reticulocyte Count (auto) 1.9% (0.5-2.5) Sodium Level 137mmol/L (136-145) Potassium Level 4.6mmol/L (3.5-5.1) Chloride Level 105mmol/L (98-107) Carbon Dioxide Level 15mmol/L (21-32) Anion Gap 17 (6-14) Blood Urea Nitrogen 68mg/dL (7-20) Creatinine 3.8mg/dL (0.6-1.0) Estimated GFR (Cockcroft-Gault) 11.5 BUN/Creatinine Ratio 18 (6-20) Glucose Level 125mg/dL (70-99) Uric Acid 4.6mg/dL (2.6-6.0) Calcium Level 7.9mg/dL (8.5-10.1) Total Bilirubin 0.3mg/dL (0.2-1.0) Aspartate Amino Transf (AST/SGOT) 16U/L (15-37) Alanine Aminotransferase (ALT/SGPT) 8U/L (14-59) Alkaline Phosphatase 72U/L (46-116) Creatine Kinase 95U/L (26-192) Troponin I Quantitative < 0.017ng/mL (0.000-0.055) Total Protein 6.0g/dL (6.4-8.2) Albumin 2.0g/dL (3.4-5.0) Albumin/Globulin Ratio 0.5 (1.0-1.7) Test 12/09/16 13:55 12/09/16 18:09 12/10/16 05:00 Urine Collection Type Unknown Urine Color Yellow Urine Clarity Clear Urine pH 5.0 Urine Specific [place] 1.020 Urine Protein 30.3mg/dL (Not Estab.) Urine Glucose (UA) Negativemg/dL (NEG) Urine Ketones (Stick) Negativemg/dL (NEG) Urine Blood Negative (NEG) Urine Nitrite Negative (NEG) Urine Bilirubin Small (NEG) Urine Urobilinogen Dipstick 0.2mg/dL (0.2 mg/dL) Urine Leukocyte Esterase Negative (NEG) Urine RBC 0/HPF (0-2) Urine WBC 0/HPF (0-4) Urine Squamous Epithelial Cells Few/LPF Urine Bacteria 0/HPF (0-FEW) Urine Hyaline Casts Many/HPF Urine Mucus Slight/LPF Urine Random Creatinine 85.4mg/dL (Not Estab.) Urine Random Sodium 56mmol/L (Not Estab.) Urine Creatinine 85.4mg/dL (Not Estab.) Urine Protein/Creatinine Ratio 355mg/g creat (0-200) Glucose (Fingerstick) 217mg/dL (70-99) Hemoglobin 8.8g/dL (12.0-15.5) Sodium Level 138mmol/L (136-145) Potassium Level 4.0mmol/L (3.5-5.1) Chloride Level 103mmol/L (98-107) Carbon Dioxide Level 24mmol/L (21-32) Anion Gap 11 (6-14) Blood Urea Nitrogen 63mg/dL (7-20) Creatinine 3.0mg/dL (0.6-1.0) Estimated GFR (Cockcroft-Gault) 15.1 Glucose Level 232mg/dL (70-99) Calcium Level 7.9mg/dL (8.5-10.1) Phosphorus Level 4.0mg/dL (2.6-4.7) Magnesium Level 1.8mg/dL (1.8-2.4) Iron Level 32ug/dL (50-170) Total Iron Binding Capacity 171ug/dL (250-450) Iron Saturation 19% (15-34) Ferritin 175ng/mL (8-252) Albumin 1.8g/dL (3.4-5.0) Laboratory Tests Test 12/09/16 12:55 12/09/16 13:55 12/09/16 18:09 12/10/16 05:00 Glucose (Fingerstick) 152mg/dL (70-99) 217mg/dL (70-99) Urine Collection Type Unknown Urine Color Yellow Urine Clarity Clear Urine pH 5.0 Urine Specific [place] 1.020 Urine Protein 30.3mg/dL (Not Estab.) Urine Glucose (UA) Negativemg/dL (NEG) Urine Ketones (Stick) Negativemg/dL (NEG) Urine Blood Negative (NEG) Urine Nitrite Negative (NEG) Urine Bilirubin Small (NEG) Urine Urobilinogen Dipstick 0.2mg/dL (0.2 mg/dL) Urine Leukocyte Esterase Negative (NEG) Urine RBC 0/HPF (0-2) Urine WBC 0/HPF (0-4) Urine Squamous Epithelial Cells Few/LPF Urine Bacteria 0/HPF (0-FEW) Urine Hyaline Casts Many/HPF Urine Mucus Slight/LPF Urine Random Creatinine 85.4mg/dL (Not Estab.) Urine Random Sodium 56mmol/L (Not Estab.) Urine Creatinine 85.4mg/dL (Not Estab.) Urine Protein/Creatinine Ratio 355mg/g creat (0-200) Hemoglobin 8.8g/dL (12.0-15.5) Sodium Level 138mmol/L (136-145) Potassium Level 4.0mmol/L (3.5-5.1) Chloride Level 103mmol/L (98-107) Carbon Dioxide Level 24mmol/L (21-32) Anion Gap 11 (6-14) Blood Urea Nitrogen 63mg/dL (7-20) Creatinine 3.0mg/dL (0.6-1.0) Estimated GFR (Cockcroft-Gault) 15.1 Glucose Level 232mg/dL (70-99) Calcium Level 7.9mg/dL (8.5-10.1) Phosphorus Level 4.0mg/dL (2.6-4.7) Magnesium Level 1.8mg/dL (1.8-2.4) Iron Level 32ug/dL (50-170) Total Iron Binding Capacity 171ug/dL (250-450) Iron Saturation 19% (15-34) Ferritin 175ng/mL (8-252) Albumin 1.8g/dL (3.4-5.0) Microbiology 12/08/16 Blood Culture - Preliminary, Resulted NO GROWTH AFTER 1 DAY 12/08/16 Urine Culture - Preliminary, Resulted 12/08/16 Urine Culture Result 1 (VICENTE) - Preliminary, Resulted Medications Current Medications Fentanyl Citrate 25 mcg 25 mcg PRN Q15MIN PRN IV PAIN GREATER THAN 3/10 Last administered on 12/08/16 20:37; Start 12/08/16 at 19:45; Stop 12/09/16 at 19:44 ; Status DC Sodium Chloride (Iv Sodium Chloride 0.9% 1000ml Bag) 1,000 ml @ 1,000 mls/hr Q1H IV Last administered on 12/08/16 20:20; Start 12/08/16 at 20:00; Stop at 20:59; Status DC Ondansetron HCl (Zofran) 4 mg 1X ONCE IV Last administered on 12/08/16 20:21 ; Start 12/08/16 at 20:00; Stop 12/08/16 at 20:01; Status DC Nystatin 1 jaison 1 jaison BID TP Last administered on 12/08/16 20:24; Start at 20:15; Stop 12/09/16 at 08:28; Status DC Ceftriaxone Sodium/Sodium Chloride (Rocephin/Iv Sodium Chloride 0.9% 50ml) 50 ml @ 100 mls/hr Q24H IV Last administered on 12/09/16 20:34; Start 12/09/16 at 20:00 Vancomycin HCl 1 each 1 each PRN DAILY PRN MC SEE COMMENTS Last administered on 12/08/16 20:57; Start 12/08/16 at 19:45; Stop 12/09/16 at 07:57; Status DC Ceftriaxone Sodium 50 ml @ 100 mls/hr 1X ONCE IV Last administered on 20:23; Start 12/08/16 at 20:15; Stop 12/08/16 at 20:44; Status DC Vancomycin HCl 1.75 gm/Sodium Chloride 500 ml @ 250 mls/hr 1X ONCE IV Last administered on 12/08/16 20:19; Start 12/08/16 at 20:30; Stop 12/08/16 at 22:29 ; Status DC Fluconazole/ Sodium Chloride (Diflucan 400mg/ 200ml Premix) 200 ml @ 100 mls/ hr Q24H IV Last administered on 12/08/16 21:00; Start 12/08/16 at 21:00; Stop 12/08/16 at 22:00; Status DC Vancomycin HCl 1 each 1 each 1X ONCE MC ; Start 12/10/16 at 20:00; Stop at 20:00; Status DC Sodium Chloride 1,000 ml @ 1,000 mls/hr 1X ONCE IV Last administered on 21:02; Start 12/08/16 at 21:00; Stop 12/08/16 at 21:59; Status DC Fluconazole/ Sodium Chloride (Diflucan 200mg/ 100ml Premix) 100 ml @ 100 mls/ hr Q24H IV Last administered on 12/09/16 20:33; Start 12/09/16 at 21:00 Ondansetron HCl (Zofran) 4 mg PRN Q8HRS PRN IV NAUSEA/VOMITING Last administered on 12/09/16 02:05; Start 12/08/16 at 21:30; Stop 12/09/16 at 07:55 ; Status DC Fentanyl Citrate 50 mcg 50 mcg PRN Q2HR PRN IV PAIN; Start 12/08/16 at 21:30; Stop 12/09/16 at 21:29; Status DC Sodium Chloride (Iv Sodium Chloride 0.9% 1000ml Bag) 1,000 ml @ 125 mls/hr Q8H IV Last administered on 12/09/16 05:42; Start 12/08/16 at 21:30; Stop at 08:48; Status DC Acetaminophen 650 mg 650 mg PRN Q4HRS PRN PO FEVER; Start 12/08/16 at 21:30; Stop 12/09/16 at 21:29; Status DC Norepinephrine Bitartrate/Sodium Chloride (Levophed Vial/ Iv Sodium Chloride 0.9 % 250ml) 258 ml @ 0 mls/hr 1X ONCE IV Last administered on 12/08/16 22:00; Start 12/08/16 at 22:00; Stop 12/08/16 at 22:01; Status DC Ondansetron HCl (Zofran) 4 mg PRN Q6HRS PRN IV NAUSEA/VOMITING 1ST CHOICE Last administered on 12/09/16 09:06; Start 12/09/16 at 07:52 Insulin Aspart (Novolog) 0-9 UNITS TIDWMEALS SQ ; Start 12/09/16 at 08:00; Stop 12/09/16 at 08:19; Status DC Dextrose 12.5 gm PRN Q15MIN PRN IV SEE COMMENTS; Start 12/09/16 at 08:00 Morphine Sulfate 2 mg PRN Q2HR PRN IV PAIN SEVERE; Start 12/09/16 at 08:00 Oxycodone/ Acetaminophen (Percocet 5/325) 1 tab PRN Q6HRS PRN PO PAIN MOD TO SEV; Start 12/09/16 at 08:00 Allopurinol (Zyloprim) 100 mg DAILY PO Last administered on 12/10/16 09:04; Start 12/09/16 at 09:00 Aspirin (Ecotrin) 81 mg DAILY08 PO Last administered on 12/10/16 09:04; Start 12/09/16 at 09:00 Carvedilol (Coreg) 6.25 mg BIDWMEALS PO ; Start 12/09/16 at 08:30; Stop at 15:18; Status DC Ferrous Sulfate (Feosol) 325 mg DAILY08 PO Last administered on 12/10/16 09:04 ; Start 12/09/16 at 09:00 Furosemide (Lasix) 40 mg DAILY PO ; Start 12/09/16 at 09:00; Stop 12/09/16 at 09 :00; Status DC Albuterol Sulfate (Ventolin Neb Soln) 2.5 mg PRN Q4HRS PRN INH CONGESTION; Start 12/09/16 at 08:00 Lisinopril (Prinivil) 30 mg DAILY PO ; Start 12/09/16 at 09:00; Stop 12/09/16 at 09:00; Status DC Nystatin (Nystop) 1 jaison BID TP ; Start 12/09/16 at 09:00; Stop 12/09/16 at 09:00 ; Status DC Budesonide (Pulmicort) 0.5 mg RTBID NEB ; Start 12/09/16 at 08:30; Stop at 08:30; Status DC Atorvastatin Calcium (Lipitor) 5 mg QHS PO Last administered on 12/09/16 20:33 ; Start 12/09/16 at 21:00 Budesonide (Pulmicort) 0.5 mg RTBID NEB Last administered on 12/10/16 07:36; Start 12/09/16 at 08:30 Albuterol Sulfate (Ventolin Neb Soln) 2.5 mg RTQID NEB ; Start 12/09/16 at 12:00 ; Stop 12/09/16 at 12:00; Status DC Nystatin (Nystop) 1 jaison QID TP Last administered on 12/10/16 09:06; Start at 09:00 Heparin Sodium (Porcine) 5,000 unit BID SQ Last administered on 12/10/16 09:05 ; Start 12/09/16 at 09:00 Insulin Aspart (Novolog) 0-7 UNITS TIDWMEALS SQ Last administered on 12/10/16 09:07; Start 12/09/16 at 12:00 Dextrose 12.5 gm PRN Q15MIN PRN IV SEE COMMENTS; Start 12/09/16 at 08:30; Status UNV Zinc Acetate/ Diphenhydramine (Benadryl Topical) 1 jaison PRN BID PRN TP pruritis ; Start 12/09/16 at 08:30 Albuterol/ Ipratropium 3 ml 3 ml RTQID NEB Last administered on 12/10/16 07:36 ; Start 12/09/16 at 12:00 Magnesium Sulfate/ Dextrose 50 ml @ 25 mls/hr PRN DAILY PRN IV for Mag < 1.7 on am labs; Start 12/09/16 at 08:45 Sodium Chloride 500 ml @ 0 mls/hr QID PRN IV UO< 30cc/hr over previous 6hrs; Start 12/09/16 at 08:45 Sodium Bicarbonate/ Dextrose 1,150 ml @ 100 mls/hr [id number] IV Last administered on 12/10/16 08:00; Start 12/09/16 at 09:00 Lidocaine/Sodium Bicarbonate (Buffered Lidocaine 1%) 3 ml 1X ONCE IJ Last administered on 12/09/16 11:08; Start 12/09/16 at 09:15; Stop 12/09/16 at 09:16 ; Status DC Heparin Sodium/ Sodium Chloride 60 unit 1X ONCE IV Last administered on 11:07; Start 12/09/16 at 09:15; Stop 12/09/16 at 09:16; Status DC Heparin Sodium (Porcine) 2,500 unit 1X ONCE INT CAT Last administered on 11:07; Start 12/09/16 at 09:15; Stop 12/09/16 at 09:16; Status DC Darbepoetin Krzysztof (Aranesp) 60 mcg WEEKLYHS SQ Last administered on 12/09/16 20 :35; Start 12/09/16 at 21:00 Heparin Sodium (Porcine) 10,000 unit STK-MED ONCE .ROUTE ; Start 12/09/16 at 09: 34; Stop 12/09/16 at 09:35; Status DC Hydrocortisone Sodium Succinate (Solu-Cortef) 100 mg Q8HRS IV Last administered on 12/09/16 22:09; Start 12/09/16 at 10:30; Stop 12/10/16 at 07:03 ; Status DC Pantoprazole Sodium 40 mg 40 mg DAILYAC PO Last administered on 12/10/16 09:04 ; Start 12/09/16 at 11:00 Norepinephrine Bitartrate/Sodium Chloride (Levophed Vial/ Iv Sodium Chloride 0.9 % 250ml) 258 ml @ 0 mls/hr CONT PRN IV SEE I/O RECORD; Start 12/09/16 at 13:30 Hydrocortisone Sodium Succinate (Solu-Cortef) 50 mg Q8HRS IV Last administered on 12/10/16 07:13; Start 12/10/16 at 07:30 Active Scripts Active Bactrim Ds Tablet (Sulfamethoxazole/Trimethoprim) 1 Each Tablet 1 Tab PO BID Nystatin 15 Gm Powder 15 Gm TP BID Lisinopril 10 Mg Tablet 30 Mg PO DAILY Reported Tylenol (Acetaminophen) 325 Mg Tablet 650 Mg PO TID PRN PRN Metformin Hcl 500 Mg Tablet 1 Tab PO TID Aspir 81 (Aspirin) 81 Mg Tablet.dr 1 Tab PO DAILY Allopurinol 100 Mg Tablet 1 Tab PO DAILY Iron Supplement (Ferrous Sulfate) 325 Mg Tablet 1 Tab PO DAILY Advair 250-50 Diskus (Fluticasone/Salmeterol) 1 Each Disk.w.dev 1 Puff IH BID Duoneb 0.5-3(2.5) Mg/3 Ml (Albuterol/Ipratropium) 3 Ml Ampul.neb 3 Ml IH Q4HRS PRN Pravastatin Sodium 10 Mg Tablet 1 Tab PO DAILY Carvedilol 6.25 Mg Tablet 1 Tab PO BID Furosemide 40 Mg Tablet 1 Tab PO DAILY Vitals/I & O Vital Sign - Last 24 Hours 12/09/16 12/09/16 12/09/16 12/09/16 11:00 11:47 12:00 12:00 Temp 97.9 97.9 Pulse 78 74 Resp 26 26 B/P 102/47 109/50 Pulse Ox 100 99 97 O2 Delivery Nasal Cannula Nasal Cannula Nasal Cannula Nasal Cannula O2 Flow Rate 4.0 4.0 4.0 4.0 12/09/16 12/09/16 12/09/16 12/09/16 13:00 14:00 15:00 16:00 Pulse 76 72 76 78 Resp 22 20 19 20 B/P 102/48 105/48 91/44 96/54 Pulse Ox 93 97 96 97 O2 Delivery Nasal Cannula Nasal Cannula Nasal Cannula Nasal Cannula O2 Flow Rate 4.0 4.0 4.0 4.0 12/09/16 12/09/16 12/09/16 12/09/16 16:00 16:00 16:17 17:00 Pulse 78 77 Resp 23 20 B/P 96/54 104/46 Pulse Ox 96 95 98 O2 Delivery Nasal Cannula Nasal Cannula Nasal Cannula Nasal Cannula O2 Flow Rate 4.0 4.0 4.0 4.0 12/09/16 12/09/16 12/09/16 12/09/16 18:00 19:00 19:54 20:00 Temp 97.6 97.6 Pulse 80 80 76 Resp 22 B/P 125/55 112/53 97/47 Pulse Ox 97 97 93 95 O2 Delivery Nasal Cannula Nasal Cannula Nasal Cannula Nasal Cannula O2 Flow Rate 4.0 4.0 4.0 4.0 12/09/16 12/09/16 12/09/16 12/09/16 21:00 21:00 22:00 23:00 Pulse 79 81 70 Resp 17 B/P 94/43 91/45 77/44 Pulse Ox 96 95 95 O2 Delivery Nasal Cannula Nasal Cannula Nasal Cannula Nasal Cannula O2 Flow Rate 4.0 4.0 4.0 4.0 12/09/16 12/10/16 12/10/16 12/10/16 23:30 00:00 00:00 01:00 Temp 97.6 97.6 Pulse 70 71 69 Resp 18 B/P 103/45 106/51 88/44 Pulse Ox 95 93 96 O2 Delivery Nasal Cannula Nasal Cannula Nasal Cannula Nasal Cannula O2 Flow Rate 4.0 4.0 4.0 4.0 12/10/16 12/10/16 12/10/16 12/10/16 02:00 03:00 04:00 04:00 Pulse 80 75 78 Resp 21 B/P 102/50 117/57 135/60 Pulse Ox 96 96 95 O2 Delivery Nasal Cannula Nasal Cannula Nasal Cannula Nasal Cannula O2 Flow Rate 4.0 4.0 4.0 4.0 12/10/16 12/10/16 12/10/16 05:00 06:00 07:37 Temp 98.0 98.0 Pulse 86 81 Resp 19 17 B/P 111/56 126/63 Pulse Ox 95 93 94 O2 Delivery Nasal Cannula Nasal Cannula Nasal Cannula O2 Flow Rate 4.0 4.0 4.0 Intake and Output 12/09/16 12/09/16 12/10/16 15:00 23:00 07:00 Intake Total 1429 ml 1515 ml Output Total 130 ml 105 ml 900 ml Balance -130 ml 1324 ml 615 ml HERNAN JOHNSON MD Dec 10, 2016 11:00
[2016-12-10] MEDS ORDERED: GUAIFENESIN ER 600 MG TABLET.ER PO ONE (14:30)
--- NOTE | 2016-12-10 16:39 | RAD ---
Indication shortness of air. Single view the chest was obtained and is compared to a study one day earlier. There has not been a significant change. The heart and pulmonary vessels are similar. There are likely small pleural effusions. Right-sided dialysis catheter is again noted. IMPRESSION: No significant change in the appearance of the chest compared to yesterday's exam
[2016-12-10] MEDS ORDERED: LORAZEPAM 2 MG/ML VIAL IV PRN (17:30)
[2016-12-10] MEDS ORDERED: ALPRAZOLAM 0.25 MG TABLET PO PRN (17:30)
[2016-12-10] MEDS: CEFTRIAXONE SODIUM 1 GM in IV NORMAL SALINE 50ML 50 ML IV SCH (19:45)
[2016-12-10] MEDS ORDERED: VANCOMYCIN RANDOM LEVEL. MC ONE (20:00)
[2016-12-10] MEDS: GUAIFENESIN ER 600 MG TABLET.ER PO SCH (20:34)
[2016-12-10] MEDS: FLUCONAZOLE 200MG/100ML PREMIX 100 ML IV SCH (20:34)
[2016-12-10] MEDS: ATORVASTATIN CALCIUM 10 MG TABLET. PO SCH (20:34)
[2016-12-11] VITALS (24 sets, daily range): BP systolic 101–145; BP diastolic 53–76
[2016-12-11 06:00] LABS: BASO # 0.1 x10^3/uL (0.0-0.2); BASO % 1 % (0-3); EOS % 0 % (0-3); HEMATOCRIT 24.8 % (36.0-47.0); HEMOGLOBIN 7.9 g/dL (12.0-15.5); LYMPH # 1.6 x10^3/uL (1.0-4.8); LYMPH % 13 % (24-48); MEAN CORPUSCULAR HEMOGLOBIN 29 pg (25-35); MEAN CORPUSCULAR HGB CONC 32 g/dL (31-37); MEAN CORPUSCULAR VOLUME 91 fL (79-100); MONO % 4 % (0-9); NEUT % 82 % (31-73); PLATELET COUNT 205 x10^3/uL (140-400); RED BLOOD COUNT 2.74 x10^6/uL (3.50-5.40); WHITE BLOOD COUNT 12.1 x10^3/uL (4.0-11.0)
[2016-12-11 06:14] LABS: ALBUMIN 1.9 g/dL (3.4-5.0); GFR 24.1; PHOSPHORUS 2.7 mg/dL (2.6-4.7); POTASSIUM 3.6 mmol/L (3.5-5.1)
[2016-12-11] MEDS: HYDROCORTISONE SOD SUCC/PF 100 MG/2 ML VIAL. IV SCH ×3 (06:15→20:53)
[2016-12-11] MEDS: SODIUM BICARBONATE VIAL 150 MEQ in IV DEXTROSE 5% 1,000 ML IV SCH (07:00)
[2016-12-11] MEDS: IPRATRPIUM/ALBUTEROL 0.5/2.5MG 3 ML NEBU. NEB SCH ×4 (07:29→19:59)
[2016-12-11] MEDS: BUDESONIDE 0.5 MG/2 ML NEBU. NEB SCH ×2 (07:29→19:59)
[2016-12-11 08:18] LABS: NUCLEATED RBC 1; PLT ESTIMATE ADEQUATE (ADEQUATE)
--- NOTE | 2016-12-11 09:09 | PDOC ---
CARDIOLOGY PROGRESS NOTE SUBJECTIVE: No acute events overnight. Continues to have cough, dyspnea. Stable. No significant change compared to yesterday. OBJECTIVE: Vital SIgns: Vital Signs Date Time Temp Pulse Resp B/P Pulse Ox O2 Delivery O2 Flow Rate FiO2 12/11/16 07:29 96 Nasal Cannula 7.0 12/11/16 06:00 85 16 123/60 12/11/16 04:00 98.0 98.0 I & O +6L since admission Objective: Gen: A/O x3 CVS: RRR, no m/r/g PULM: Bilateral rhonchi ABD: Soft, NT/ND +BS EXT: No edema. NEURO: No focal deficits. CURRENT MEDICATIONS: ASA Atorvastatin ASSESSMENT: 1. Sepsis, REY 2. HTN Problems: PLAN: 1. Will monitor for volume overload. 2. No diuresis unless significant edema on CXR. 3. Will hold off on restarting home CV meds. Will monitor closely. MAT RUEDA MD Dec 11, 2016 09:09
[2016-12-11] MEDS: FERROUS SULFATE 325 MG TABLET PO SCH (09:16)
[2016-12-11] MEDS: GUAIFENESIN ER 600 MG TABLET.ER PO SCH ×2 (09:16→20:53)
[2016-12-11] MEDS: ALLOPURINOL 100 MG TABLET. PO SCH (09:16)
[2016-12-11] MEDS: PANTOPRAZOLE 40 MG TABLET. PO SCH (09:16)
[2016-12-11] MEDS: ASPIRIN ENTERIC COATED 81 MG TABLET.DR. PO SCH (09:16)
[2016-12-11] MEDS: HEPARIN PF for SUB-Q USE 5,000 UNIT/0.5 ML VIAL. SQ SCH ×2 (09:18→20:55)
[2016-12-11] MEDS: INSULIN ASPART 300 UNITS/3 ML INSULN.PEN SQ SCH ×3 (09:18→17:00)
--- NOTE | 2016-12-11 09:18 | PDOC ---
Infectious Disease Note Subjective Subjective Comfortable Some increase SOA and O2 demand earlier ROS ROS GEN: Denies fevers, chills, sweats CV: Denies chest pain GI: Denies n/v/d NEURO: Denies confusion, dizziness Vital Sign Vital Signs Vital Signs Date Time Temp Pulse Resp B/P Pulse Ox O2 Delivery O2 Flow Rate FiO2 12/11/16 07:29 96 Nasal Cannula 7.0 12/11/16 06:00 85 16 123/60 12/11/16 04:00 98.0 98.0 Physical Exam PHYSICAL EXAM GENERAL: Sitting in the chair, eating breakfast, NAD LUNGS: Less congestion, diminished aeration, nonlabored HEART: S1S2 ABD: Obese, soft, NT : Rossi EXT: No edema, no cyanosis [employer]: Alert, oriented x 3, no focal neurologic deficit SKIN: Erythema and excoriations in groin skin folds Temp HDC/RIJ (12/09). Labs Lab Laboratory Tests Test 12/10/16 12:10 12/11/16 05:40 Glucose (Fingerstick) 175mg/dL (70-99) White Blood Count 12.1x10^3/uL (4.0-11.0) Red Blood Count 2.74x10^6/uL (3.50-5.40) Hemoglobin 7.9g/dL (12.0-15.5) Hematocrit 24.8% (36.0-47.0) Mean Corpuscular Volume 91fL (79-100) Mean Corpuscular Hemoglobin 29pg (25-35) Mean Corpuscular Hemoglobin Concent 32g/dL (31-37) Red Cell Distribution Width 16.0% (11.5-14.5) Platelet Count 205x10^3/uL (140-400) Neutrophils (%) (Auto) 82% (31-73) Lymphocytes (%) (Auto) 13% (24-48) Monocytes (%) (Auto) 4% (0-9) Eosinophils (%) (Auto) 0% (0-3) Basophils (%) (Auto) 1% (0-3) Neutrophils # (Auto) 9.9x10^3uL (1.8-7.7) Lymphocytes # (Auto) 1.6x10^3/uL (1.0-4.8) Monocytes # (Auto) 0.5x10^3/uL (0.0-1.1) Eosinophils # (Auto) 0.0x10^3/uL (0.0-0.7) Basophils # (Auto) 0.1x10^3/uL (0.0-0.2) Segmented Neutrophils % 84% (35-66) Lymphocytes % 11% (24-48) Monocytes % 3% (0-10) Metamyelocytes % 2% (0-0) Nucleated Red Blood Cells 1 Platelet Estimate Adequate (ADEQUATE) Sodium Level 140mmol/L (136-145) Potassium Level 3.6mmol/L (3.5-5.1) Chloride Level 101mmol/L (98-107) Carbon Dioxide Level 31mmol/L (21-32) Anion Gap 8 (6-14) Blood Urea Nitrogen 46mg/dL (7-20) Creatinine 2.0mg/dL (0.6-1.0) Estimated GFR (Cockcroft-Gault) 24.1 Glucose Level 185mg/dL (70-99) Calcium Level 8.0mg/dL (8.5-10.1) Phosphorus Level 2.7mg/dL (2.6-4.7) Magnesium Level 1.7mg/dL (1.8-2.4) Albumin 1.9g/dL (3.4-5.0) Micro URINE CULTURE RES 1 Preliminary No growth after 18-24 hours. BLOOD CULTURE Preliminary NO GROWTH AFTER 2 DAY Objective Assessment Hypotension, most likely related to dehydration. Off Levophed Extensive yeast infection under the breast and into the groin. Acute kidney injury on CRI. - Not started on dialysis. s/p temp HDC cath. Debility. Leukocytosis, now on steroids. improving Congestive heart failure. Chronic obstructive pulmonary disease. Urinary tract infection. UC no growth MRSA nares + Plan Plan of Care Rocephin and fluconazole cultures NGTD Supportive care Patient seen and examined. Chart reviewed. Case discussed with TRAIN SYSTEM OPERATOR. Agree with above plan. JULES MAGANA APRN Dec 11, 2016 09:18 ALISSON PASTOR MD Dec 11, 2016 16:50
[2016-12-11] MEDS: NYSTATIN TOPICAL POWDER 15GM BOTTLE. TP SCH ×4 (09:22→20:54)
--- NOTE | 2016-12-11 09:27 | RAD ---
Indication difficulty breathing. A single view of the chest was obtained and is compared to an examination one day earlier. Heart and pulmonary vessels are similar. Bilateral pleural effusions are similar. A significant change in the appearance of the chest is not seen. Right-sided dialysis catheter is noted. IMPRESSION: No significant change
--- NOTE | 2016-12-11 10:06 | PDOC ---
PULMONARY PROGRESS NOTES Subjective off levo this am, was on levo overnight, on 02, sob, better, has cough, not able to cough up sputum, has nasal congestion, no pain Vitals Vital Signs Date Time Temp Pulse Resp B/P Pulse Ox O2 Delivery O2 Flow Rate FiO2 12/11/16 07:29 96 Nasal Cannula 7.0 12/11/16 06:00 85 16 123/60 12/11/16 04:00 98.0 98.0 Comments ros as mentioned as above other sys otherwise neg ROS: No Nausea, No Chest Pain, No Abdominal Pain, No Increase Cough General: Alert, Oriented X4, No acute distress HEENT: Other (nc at perrl, throat nose clear) Lungs: Crackles Cardiovascular: S1, S2 Abdomen: Soft, Non-tender, Other (no mass) Neuro Exam: Alert, Oriented Extremities: No Edema, Other Skin: Warm, Rash Labs Laboratory Tests Test 12/09/16 12:55 12/09/16 13:55 12/09/16 18:09 12/10/16 05:00 Glucose (Fingerstick) 152mg/dL (70-99) 217mg/dL (70-99) Urine Collection Type Unknown Urine Color Yellow Urine Clarity Clear Urine pH 5.0 Urine Specific Bradley 1.020 Urine Protein 30.3mg/dL (Not Estab.) Urine Glucose (UA) Negativemg/dL (NEG) Urine Ketones (Stick) Negativemg/dL (NEG) Urine Blood Negative (NEG) Urine Nitrite Negative (NEG) Urine Bilirubin Small (NEG) Urine Urobilinogen Dipstick 0.2mg/dL (0.2 mg/dL) Urine Leukocyte Esterase Negative (NEG) Urine RBC 0/HPF (0-2) Urine WBC 0/HPF (0-4) Urine Squamous Epithelial Cells Few/LPF Urine Bacteria 0/HPF (0-FEW) Urine Hyaline Casts Many/HPF Urine Mucus Slight/LPF Urine Random Creatinine 85.4mg/dL (Not Estab.) Urine Random Sodium 56mmol/L (Not Estab.) Urine Creatinine 85.4mg/dL (Not Estab.) Urine Protein/Creatinine Ratio 355mg/g creat (0-200) Hemoglobin 8.8g/dL (12.0-15.5) Sodium Level 138mmol/L (136-145) Potassium Level 4.0mmol/L (3.5-5.1) Chloride Level 103mmol/L (98-107) Carbon Dioxide Level 24mmol/L (21-32) Anion Gap 11 (6-14) Blood Urea Nitrogen 63mg/dL (7-20) Creatinine 3.0mg/dL (0.6-1.0) Estimated GFR (Cockcroft-Gault) 15.1 Glucose Level 232mg/dL (70-99) Calcium Level 7.9mg/dL (8.5-10.1) Phosphorus Level 4.0mg/dL (2.6-4.7) Magnesium Level 1.8mg/dL (1.8-2.4) Iron Level 32ug/dL (50-170) Total Iron Binding Capacity 171ug/dL (250-450) Iron Saturation 19% (15-34) Ferritin 175ng/mL (8-252) Albumin 1.8g/dL (3.4-5.0) Test 12/10/16 08:41 12/10/16 12:10 12/11/16 05:40 12/11/16 08:25 Glucose (Fingerstick) 190mg/dL (70-99) 175mg/dL (70-99) 156mg/dL (70-99) White Blood Count 12.1x10^3/uL (4.0-11.0) Red Blood Count 2.74x10^6/uL (3.50-5.40) Hemoglobin 7.9g/dL (12.0-15.5) Hematocrit 24.8% (36.0-47.0) Mean Corpuscular Volume 91fL (79-100) Mean Corpuscular Hemoglobin 29pg (25-35) Mean Corpuscular Hemoglobin Concent 32g/dL (31-37) Red Cell Distribution Width 16.0% (11.5-14.5) Platelet Count 205x10^3/uL (140-400) Neutrophils (%) (Auto) 82% (31-73) Lymphocytes (%) (Auto) 13% (24-48) Monocytes (%) (Auto) 4% (0-9) Eosinophils (%) (Auto) 0% (0-3) Basophils (%) (Auto) 1% (0-3) Neutrophils # (Auto) 9.9x10^3uL (1.8-7.7) Lymphocytes # (Auto) 1.6x10^3/uL (1.0-4.8) Monocytes # (Auto) 0.5x10^3/uL (0.0-1.1) Eosinophils # (Auto) 0.0x10^3/uL (0.0-0.7) Basophils # (Auto) 0.1x10^3/uL (0.0-0.2) Segmented Neutrophils % 84% (35-66) Lymphocytes % 11% (24-48) Monocytes % 3% (0-10) Metamyelocytes % 2% (0-0) Nucleated Red Blood Cells 1 Platelet Estimate Adequate (ADEQUATE) Sodium Level 140mmol/L (136-145) Potassium Level 3.6mmol/L (3.5-5.1) Chloride Level 101mmol/L (98-107) Carbon Dioxide Level 31mmol/L (21-32) Anion Gap 8 (6-14) Blood Urea Nitrogen 46mg/dL (7-20) Creatinine 2.0mg/dL (0.6-1.0) Estimated GFR (Cockcroft-Gault) 24.1 Glucose Level 185mg/dL (70-99) Calcium Level 8.0mg/dL (8.5-10.1) Phosphorus Level 2.7mg/dL (2.6-4.7) Magnesium Level 1.7mg/dL (1.8-2.4) Albumin 1.9g/dL (3.4-5.0) Laboratory Tests Test 12/10/16 12:10 12/11/16 05:40 12/11/16 08:25 Glucose (Fingerstick) 175mg/dL (70-99) 156mg/dL (70-99) White Blood Count 12.1x10^3/uL (4.0-11.0) Red Blood Count 2.74x10^6/uL (3.50-5.40) Hemoglobin 7.9g/dL (12.0-15.5) Hematocrit 24.8% (36.0-47.0) Mean Corpuscular Volume 91fL (79-100) Mean Corpuscular Hemoglobin 29pg (25-35) Mean Corpuscular Hemoglobin Concent 32g/dL (31-37) Red Cell Distribution Width 16.0% (11.5-14.5) Platelet Count 205x10^3/uL (140-400) Neutrophils (%) (Auto) 82% (31-73) Lymphocytes (%) (Auto) 13% (24-48) Monocytes (%) (Auto) 4% (0-9) Eosinophils (%) (Auto) 0% (0-3) Basophils (%) (Auto) 1% (0-3) Neutrophils # (Auto) 9.9x10^3uL (1.8-7.7) Lymphocytes # (Auto) 1.6x10^3/uL (1.0-4.8) Monocytes # (Auto) 0.5x10^3/uL (0.0-1.1) Eosinophils # (Auto) 0.0x10^3/uL (0.0-0.7) Basophils # (Auto) 0.1x10^3/uL (0.0-0.2) Segmented Neutrophils % 84% (35-66) Lymphocytes % 11% (24-48) Monocytes % 3% (0-10) Metamyelocytes % 2% (0-0) Nucleated Red Blood Cells 1 Platelet Estimate Adequate (ADEQUATE) Sodium Level 140mmol/L (136-145) Potassium Level 3.6mmol/L (3.5-5.1) Chloride Level 101mmol/L (98-107) Carbon Dioxide Level 31mmol/L (21-32) Anion Gap 8 (6-14) Blood Urea Nitrogen 46mg/dL (7-20) Creatinine 2.0mg/dL (0.6-1.0) Estimated GFR (Cockcroft-Gault) 24.1 Glucose Level 185mg/dL (70-99) Calcium Level 8.0mg/dL (8.5-10.1) Phosphorus Level 2.7mg/dL (2.6-4.7) Magnesium Level 1.7mg/dL (1.8-2.4) Albumin 1.9g/dL (3.4-5.0) Medications Active Scripts Medications Dose Route/Sig Days Date Category Bactrim Ds Tablet (Sulfamethoxazole/Trimethoprim) 1 Each Tablet 1 Tab PO BID 12/07/16 Rx Nystatin 15 Gm Powder 15 Gm TP BID 12/07/16 Rx Tylenol (Acetaminophen) 325 Mg Tablet 650 Mg PO TID PRN PRN 04/11/16 Reported Metformin Hcl 500 Mg Tablet 1 Tab PO TID 04/11/16 Reported Aspir 81 (Aspirin) 81 Mg Tablet.dr 1 Tab PO DAILY 04/11/16 Reported Lisinopril 10 Mg Tablet 30 Mg PO DAILY 12/11/15 Rx Allopurinol 100 Mg Tablet 1 Tab PO DAILY 11/16/15 Reported Iron Supplement (Ferrous Sulfate) 325 Mg Tablet 1 Tab PO DAILY 11/10/15 Reported Advair 250-50 Diskus (Fluticasone/Salmeterol) 1 Each Disk.w.dev 1 Puff IH BID 05/06/15 Reported Duoneb 0.5-3(2.5) Mg/3 Ml (Albuterol/Ipratropium) 3 Ml Ampul.neb 3 Ml IH Q4HRS PRN 05/06/15 Reported Pravastatin Sodium 10 Mg Tablet 1 Tab PO DAILY 09/16/14 Reported Carvedilol 6.25 Mg Tablet 1 Tab PO BID 09/16/14 Reported Furosemide 40 Mg Tablet 1 Tab PO DAILY 09/16/14 Reported Comments cxr reviewed, Increase in interstitial prominence relative to the previous exam suggesting interstitial edema or interstitial pneumonitis Impression . IMPRESSION: 1. [id number] respiratory failure, multifactorial in etiology. 2. Abnormal chest x-ray. 3. Shock, septic versus hypovolemic. 4. Excessive yeast infection. 5. Acute kidney injury on chronic renal insufficiency. 6. Leukocytosis. 7. Anemia. 8. Congestive heart failure. 9. Chronic obstructive pulmonary disease. 10. Urinary tract infection. 11. allergic rhinitis Plan . PLAN AND RECOMMENDATIONS: 1. Titrate FiO2 to keep O2 saturation 92%. 2. Bronchodilator. 3. Inhaled corticosteroid. 4. taper Solu-Cortef. The patient has had on prednisone. On and off for a long time. 5. Continue Diflucan and Rocephin. 6. Follow up cultures. 7. Fluid resuscitation. 8. Nephrology and ID are consulted. 9. Heparin for deep venous thrombosis prophylaxis. 10. protonix for stress ulcer prophylaxis. 11. Monitor respiratory status very closely. 12. pressors to keep mean arterial pressure 65. 13. add singulair The findings and recommendations were discussed with the patient, her daughter and RN. ALAN IYER MD Dec 11, 2016 10:06
--- NOTE | 2016-12-11 10:11 | PDOC ---
PROGRESS NOTES Chief Complaint Chief Complaint 1. Severe SEPSIS with HYPOTENSIOn off pressors sec to SEVERE CANDIDIASIS, intertriginous areas 2. CHronic STEROID use sec to AECOPD, past admits 3. REY on CKD - baseline? 4. Hx CHF? per documentation 5. 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 OLiguric renal failure 8. 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 HTN hx nOW HYPOTENSIVE 10. DYslipidemia 11. HYPOTENSION at night needing low dose levophed History of Present Illness History of Present Illness off pressor during the daytime BUt needing low dose levophed (2-4 mcgs) at night Pt has had long time steroids for AECOPD in multiple admits here CReatinine better (2 from 4) Hgb 7.9 WBC 12 - better - (from 20s) - ID onboard PLAn: Check serum AM cortisol - re hypotension, hx of chronic steroid use NEed to keep in ICU bec of need for levophed qhs Antibiotics per ID Once not needing Levophed at night can transfer to [facility] Dw pt and family and RN Vitals Vitals Vital Signs Date Time Temp Pulse Resp B/P Pulse Ox O2 Delivery O2 Flow Rate FiO2 12/11/16 07:29 96 Nasal Cannula 7.0 12/11/16 06:00 85 16 123/60 12/11/16 04:00 98.0 98.0 Physical Exam General: Alert, Oriented X3, Cooperative, No acute distress Heart: Regular rate, Normal S1, Normal S2, No murmurs, Gallops Lungs: Crackles Abdomen: Normal bowel sounds, Soft, No tenderness, No hepatosplenomegaly, No masses Extremities: No clubbing, No cyanosis, No edema, Normal pulses, No tenderness/ swelling Skin: Other (erythematous rash underneath breasts, encompassing whole line of the underbreasts with extension to the breasts itself, similar rash on bilateral groins and inner thigh, no appreciable open lesions though or weeping) Labs LABS Laboratory Tests Test 12/10/16 12:10 12/11/16 05:40 12/11/16 08:25 Glucose (Fingerstick) 175mg/dL (70-99) 156mg/dL (70-99) White Blood Count 12.1x10^3/uL (4.0-11.0) Red Blood Count 2.74x10^6/uL (3.50-5.40) Hemoglobin 7.9g/dL (12.0-15.5) Hematocrit 24.8% (36.0-47.0) Mean Corpuscular Volume 91fL (79-100) Mean Corpuscular Hemoglobin 29pg (25-35) Mean Corpuscular Hemoglobin Concent 32g/dL (31-37) Red Cell Distribution Width 16.0% (11.5-14.5) Platelet Count 205x10^3/uL (140-400) Neutrophils (%) (Auto) 82% (31-73) Lymphocytes (%) (Auto) 13% (24-48) Monocytes (%) (Auto) 4% (0-9) Eosinophils (%) (Auto) 0% (0-3) Basophils (%) (Auto) 1% (0-3) Neutrophils # (Auto) 9.9x10^3uL (1.8-7.7) Lymphocytes # (Auto) 1.6x10^3/uL (1.0-4.8) Monocytes # (Auto) 0.5x10^3/uL (0.0-1.1) Eosinophils # (Auto) 0.0x10^3/uL (0.0-0.7) Basophils # (Auto) 0.1x10^3/uL (0.0-0.2) Segmented Neutrophils % 84% (35-66) Lymphocytes % 11% (24-48) Monocytes % 3% (0-10) Metamyelocytes % 2% (0-0) Nucleated Red Blood Cells 1 Platelet Estimate Adequate (ADEQUATE) Sodium Level 140mmol/L (136-145) Potassium Level 3.6mmol/L (3.5-5.1) Chloride Level 101mmol/L (98-107) Carbon Dioxide Level 31mmol/L (21-32) Anion Gap 8 (6-14) Blood Urea Nitrogen 46mg/dL (7-20) Creatinine 2.0mg/dL (0.6-1.0) Estimated GFR (Cockcroft-Gault) 24.1 Glucose Level 185mg/dL (70-99) Calcium Level 8.0mg/dL (8.5-10.1) Phosphorus Level 2.7mg/dL (2.6-4.7) Magnesium Level 1.7mg/dL (1.8-2.4) Albumin 1.9g/dL (3.4-5.0) Review of Systems Review of Systems SOA< sore on skin folds, no emesis/nausea, diarrhea Assessment and Plan Assessmemt and Plan Problems Medical Problems: (1) Acute renal failure Status: Acute (2) Cellulitis Status: Acute (3) Severe sepsis Status: Acute (4) Yeast dermatitis Status: Acute Problems: Comment Review of Relevant I have reviewed the following items [place] (where applicable) has been applied. Labs Laboratory Tests Test 12/09/16 12:55 12/09/16 13:55 12/09/16 18:09 12/10/16 05:00 Glucose (Fingerstick) 152mg/dL (70-99) 217mg/dL (70-99) Urine Collection Type Unknown Urine Color Yellow Urine Clarity Clear Urine pH 5.0 Urine Specific [place] 1.020 Urine Protein 30.3mg/dL (Not Estab.) Urine Glucose (UA) Negativemg/dL (NEG) Urine Ketones (Stick) Negativemg/dL (NEG) Urine Blood Negative (NEG) Urine Nitrite Negative (NEG) Urine Bilirubin Small (NEG) Urine Urobilinogen Dipstick 0.2mg/dL (0.2 mg/dL) Urine Leukocyte Esterase Negative (NEG) Urine RBC 0/HPF (0-2) Urine WBC 0/HPF (0-4) Urine Squamous Epithelial Cells Few/LPF Urine Bacteria 0/HPF (0-FEW) Urine Hyaline Casts Many/HPF Urine Mucus Slight/LPF Urine Random Creatinine 85.4mg/dL (Not Estab.) Urine Random Sodium 56mmol/L (Not Estab.) Urine Creatinine 85.4mg/dL (Not Estab.) Urine Protein/Creatinine Ratio 355mg/g creat (0-200) Hemoglobin 8.8g/dL (12.0-15.5) Sodium Level 138mmol/L (136-145) Potassium Level 4.0mmol/L (3.5-5.1) Chloride Level 103mmol/L (98-107) Carbon Dioxide Level 24mmol/L (21-32) Anion Gap 11 (6-14) Blood Urea Nitrogen 63mg/dL (7-20) Creatinine 3.0mg/dL (0.6-1.0) Estimated GFR (Cockcroft-Gault) 15.1 Glucose Level 232mg/dL (70-99) Calcium Level 7.9mg/dL (8.5-10.1) Phosphorus Level 4.0mg/dL (2.6-4.7) Magnesium Level 1.8mg/dL (1.8-2.4) Iron Level 32ug/dL (50-170) Total Iron Binding Capacity 171ug/dL (250-450) Iron Saturation 19% (15-34) Ferritin 175ng/mL (8-252) Albumin 1.8g/dL (3.4-5.0) Test 12/10/16 08:41 12/10/16 12:10 12/11/16 05:40 12/11/16 08:25 Glucose (Fingerstick) 190mg/dL (70-99) 175mg/dL (70-99) 156mg/dL (70-99) White Blood Count 12.1x10^3/uL (4.0-11.0) Red Blood Count 2.74x10^6/uL (3.50-5.40) Hemoglobin 7.9g/dL (12.0-15.5) Hematocrit 24.8% (36.0-47.0) Mean Corpuscular Volume 91fL (79-100) Mean Corpuscular Hemoglobin 29pg (25-35) Mean Corpuscular Hemoglobin Concent 32g/dL (31-37) Red Cell Distribution Width 16.0% (11.5-14.5) Platelet Count 205x10^3/uL (140-400) Neutrophils (%) (Auto) 82% (31-73) Lymphocytes (%) (Auto) 13% (24-48) Monocytes (%) (Auto) 4% (0-9) Eosinophils (%) (Auto) 0% (0-3) Basophils (%) (Auto) 1% (0-3) Neutrophils # (Auto) 9.9x10^3uL (1.8-7.7) Lymphocytes # (Auto) 1.6x10^3/uL (1.0-4.8) Monocytes # (Auto) 0.5x10^3/uL (0.0-1.1) Eosinophils # (Auto) 0.0x10^3/uL (0.0-0.7) Basophils # (Auto) 0.1x10^3/uL (0.0-0.2) Segmented Neutrophils % 84% (35-66) Lymphocytes % 11% (24-48) Monocytes % 3% (0-10) Metamyelocytes % 2% (0-0) Nucleated Red Blood Cells 1 Platelet Estimate Adequate (ADEQUATE) Sodium Level 140mmol/L (136-145) Potassium Level 3.6mmol/L (3.5-5.1) Chloride Level 101mmol/L (98-107) Carbon Dioxide Level 31mmol/L (21-32) Anion Gap 8 (6-14) Blood Urea Nitrogen 46mg/dL (7-20) Creatinine 2.0mg/dL (0.6-1.0) Estimated GFR (Cockcroft-Gault) 24.1 Glucose Level 185mg/dL (70-99) Calcium Level 8.0mg/dL (8.5-10.1) Phosphorus Level 2.7mg/dL (2.6-4.7) Magnesium Level 1.7mg/dL (1.8-2.4) Albumin 1.9g/dL (3.4-5.0) Laboratory Tests Test 12/10/16 12:10 12/11/16 05:40 12/11/16 08:25 Glucose (Fingerstick) 175mg/dL (70-99) 156mg/dL (70-99) White Blood Count 12.1x10^3/uL (4.0-11.0) Red Blood Count 2.74x10^6/uL (3.50-5.40) Hemoglobin 7.9g/dL (12.0-15.5) Hematocrit 24.8% (36.0-47.0) Mean Corpuscular Volume 91fL (79-100) Mean Corpuscular Hemoglobin 29pg (25-35) Mean Corpuscular Hemoglobin Concent 32g/dL (31-37) Red Cell Distribution Width 16.0% (11.5-14.5) Platelet Count 205x10^3/uL (140-400) Neutrophils (%) (Auto) 82% (31-73) Lymphocytes (%) (Auto) 13% (24-48) Monocytes (%) (Auto) 4% (0-9) Eosinophils (%) (Auto) 0% (0-3) Basophils (%) (Auto) 1% (0-3) Neutrophils # (Auto) 9.9x10^3uL (1.8-7.7) Lymphocytes # (Auto) 1.6x10^3/uL (1.0-4.8) Monocytes # (Auto) 0.5x10^3/uL (0.0-1.1) Eosinophils # (Auto) 0.0x10^3/uL (0.0-0.7) Basophils # (Auto) 0.1x10^3/uL (0.0-0.2) Segmented Neutrophils % 84% (35-66) Lymphocytes % 11% (24-48) Monocytes % 3% (0-10) Metamyelocytes % 2% (0-0) Nucleated Red Blood Cells 1 Platelet Estimate Adequate (ADEQUATE) Sodium Level 140mmol/L (136-145) Potassium Level 3.6mmol/L (3.5-5.1) Chloride Level 101mmol/L (98-107) Carbon Dioxide Level 31mmol/L (21-32) Anion Gap 8 (6-14) Blood Urea Nitrogen 46mg/dL (7-20) Creatinine 2.0mg/dL (0.6-1.0) Estimated GFR (Cockcroft-Gault) 24.1 Glucose Level 185mg/dL (70-99) Calcium Level 8.0mg/dL (8.5-10.1) Phosphorus Level 2.7mg/dL (2.6-4.7) Magnesium Level 1.7mg/dL (1.8-2.4) Albumin 1.9g/dL (3.4-5.0) Microbiology 12/08/16 Blood Culture - Preliminary, Resulted NO GROWTH AFTER 2 DAYS 12/08/16 Urine Culture - Final, Complete 12/08/16 Urine Culture Result 1 (VICENTE) - Final, Complete Medications Current Medications Fentanyl Citrate 25 mcg 25 mcg PRN Q15MIN PRN IV PAIN GREATER THAN 3/10 Last administered on 12/08/16 20:37; Start 12/08/16 at 19:45; Stop 12/09/16 at 19:44 ; Status DC Sodium Chloride (Iv Sodium Chloride 0.9% 1000ml Bag) 1,000 ml @ 1,000 mls/hr Q1H IV Last administered on 12/08/16 20:20; Start 12/08/16 at 20:00; Stop at 20:59; Status DC Ondansetron HCl (Zofran) 4 mg 1X ONCE IV Last administered on 12/08/16 20:21 ; Start 12/08/16 at 20:00; Stop 12/08/16 at 20:01; Status DC Nystatin 1 ajison 1 jaison BID TP Last administered on 12/08/16 20:24; Start at 20:15; Stop 12/09/16 at 08:28; Status DC Ceftriaxone Sodium/Sodium Chloride (Rocephin/Iv Sodium Chloride 0.9% 50ml) 50 ml @ 100 mls/hr Q24H IV Last administered on 12/10/16 19:45; Start 12/09/16 at 20:00 Vancomycin HCl 1 each 1 each PRN DAILY PRN MC SEE COMMENTS Last administered on 12/08/16 20:57; Start 12/08/16 at 19:45; Stop 12/09/16 at 07:57; Status DC Ceftriaxone Sodium 50 ml @ 100 mls/hr 1X ONCE IV Last administered on 20:23; Start 12/08/16 at 20:15; Stop 12/08/16 at 20:44; Status DC Vancomycin HCl 1.75 gm/Sodium Chloride 500 ml @ 250 mls/hr 1X ONCE IV Last administered on 12/08/16 20:19; Start 12/08/16 at 20:30; Stop 12/08/16 at 22:29 ; Status DC Fluconazole/ Sodium Chloride (Diflucan 400mg/ 200ml Premix) 200 ml @ 100 mls/ hr Q24H IV Last administered on 12/08/16 21:00; Start 12/08/16 at 21:00; Stop 12/08/16 at 22:00; Status DC Vancomycin HCl 1 each 1 each 1X ONCE MC ; Start 12/10/16 at 20:00; Stop at 20:00; Status DC Sodium Chloride 1,000 ml @ 1,000 mls/hr 1X ONCE IV Last administered on 21:02; Start 12/08/16 at 21:00; Stop 12/08/16 at 21:59; Status DC Fluconazole/ Sodium Chloride (Diflucan 200mg/ 100ml Premix) 100 ml @ 100 mls/ hr Q24H IV Last administered on 12/10/16 20:34; Start 12/09/16 at 21:00 Ondansetron HCl (Zofran) 4 mg PRN Q8HRS PRN IV NAUSEA/VOMITING Last administered on 12/09/16 02:05; Start 12/08/16 at 21:30; Stop 12/09/16 at 07:55 ; Status DC Fentanyl Citrate 50 mcg 50 mcg PRN Q2HR PRN IV PAIN; Start 12/08/16 at 21:30; Stop 12/09/16 at 21:29; Status DC Sodium Chloride (Iv Sodium Chloride 0.9% 1000ml Bag) 1,000 ml @ 125 mls/hr Q8H IV Last administered on 12/09/16 05:42; Start 12/08/16 at 21:30; Stop at 08:48; Status DC Acetaminophen 650 mg 650 mg PRN Q4HRS PRN PO FEVER; Start 12/08/16 at 21:30; Stop 12/09/16 at 21:29; Status DC Norepinephrine Bitartrate/Sodium Chloride (Levophed Vial/ Iv Sodium Chloride 0.9 % 250ml) 258 ml @ 0 mls/hr 1X ONCE IV Last administered on 12/08/16 22:00; Start 12/08/16 at 22:00; Stop 12/08/16 at 22:01; Status DC Ondansetron HCl (Zofran) 4 mg PRN Q6HRS PRN IV NAUSEA/VOMITING 1ST CHOICE Last administered on 12/09/16 09:06; Start 12/09/16 at 07:52 Insulin Aspart (Novolog) 0-9 UNITS TIDWMEALS SQ ; Start 12/09/16 at 08:00; Stop 12/09/16 at 08:19; Status DC Dextrose 12.5 gm PRN Q15MIN PRN IV SEE COMMENTS; Start 12/09/16 at 08:00 Morphine Sulfate 2 mg PRN Q2HR PRN IV PAIN SEVERE Last administered on 15:56; Start 12/09/16 at 08:00 Oxycodone/ Acetaminophen (Percocet 5/325) 1 tab PRN Q6HRS PRN PO PAIN MOD TO SEV; Start 12/09/16 at 08:00 Allopurinol (Zyloprim) 100 mg DAILY PO Last administered on 12/11/16 09:16; Start 12/09/16 at 09:00 Aspirin (Ecotrin) 81 mg DAILY08 PO Last administered on 12/11/16 09:16; Start 12/09/16 at 09:00 Carvedilol (Coreg) 6.25 mg BIDWMEALS PO ; Start 12/09/16 at 08:30; Stop at 15:18; Status DC Ferrous Sulfate (Feosol) 325 mg DAILY08 PO Last administered on 12/11/16 09:16 ; Start 12/09/16 at 09:00 Furosemide (Lasix) 40 mg DAILY PO ; Start 12/09/16 at 09:00; Stop 12/09/16 at 09 :00; Status DC Albuterol Sulfate (Ventolin Neb Soln) 2.5 mg PRN Q4HRS PRN INH CONGESTION; Start 12/09/16 at 08:00 Lisinopril (Prinivil) 30 mg DAILY PO ; Start 12/09/16 at 09:00; Stop 12/09/16 at 09:00; Status DC Nystatin (Nystop) 1 jaison BID TP ; Start 12/09/16 at 09:00; Stop 12/09/16 at 09:00 ; Status DC Budesonide (Pulmicort) 0.5 mg RTBID NEB ; Start 12/09/16 at 08:30; Stop at 08:30; Status DC Atorvastatin Calcium (Lipitor) 5 mg QHS PO Last administered on 12/10/16 20:34 ; Start 12/09/16 at 21:00 Budesonide (Pulmicort) 0.5 mg RTBID NEB Last administered on 12/11/16 07:29; Start 12/09/16 at 08:30 Albuterol Sulfate (Ventolin Neb Soln) 2.5 mg RTQID NEB ; Start 12/09/16 at 12:00 ; Stop 12/09/16 at 12:00; Status DC Nystatin (Nystop) 1 jaison QID TP Last administered on 12/11/16 09:22; Start at 09:00 Heparin Sodium (Porcine) 5,000 unit BID SQ Last administered on 12/11/16 09:18 ; Start 12/09/16 at 09:00 Insulin Aspart (Novolog) 0-7 UNITS TIDWMEALS SQ Last administered on 12/11/16 09:18; Start 12/09/16 at 12:00 Dextrose 12.5 gm PRN Q15MIN PRN IV SEE COMMENTS; Start 12/09/16 at 08:30; Status UNV Zinc Acetate/ Diphenhydramine (Benadryl Topical) 1 jaison PRN BID PRN TP pruritis ; Start 12/09/16 at 08:30 Albuterol/ Ipratropium 3 ml 3 ml RTQID NEB Last administered on 12/11/16 07:29 ; Start 12/09/16 at 12:00 Magnesium Sulfate/ Dextrose 50 ml @ 25 mls/hr PRN DAILY PRN IV for Mag < 1.7 on am labs; Start 12/09/16 at 08:45 Sodium Chloride 500 ml @ 0 mls/hr QID PRN IV UO< 30cc/hr over previous 6hrs; Start 12/09/16 at 08:45 Sodium Bicarbonate/ Dextrose 1,150 ml @ 100 mls/hr [id number] IV Last administered on 12/10/16 20:35; Start 12/09/16 at 09:00 Lidocaine/Sodium Bicarbonate (Buffered Lidocaine 1%) 3 ml 1X ONCE IJ Last administered on 12/09/16 11:08; Start 12/09/16 at 09:15; Stop 12/09/16 at 09:16 ; Status DC Heparin Sodium/ Sodium Chloride 60 unit 1X ONCE IV Last administered on 11:07; Start 12/09/16 at 09:15; Stop 12/09/16 at 09:16; Status DC Heparin Sodium (Porcine) 2,500 unit 1X ONCE INT CAT Last administered on 11:07; Start 12/09/16 at 09:15; Stop 12/09/16 at 09:16; Status DC Darbepoetin Krzysztof (Aranesp) 60 mcg WEEKLYHS SQ Last administered on 12/09/16 20 :35; Start 12/09/16 at 21:00 Heparin Sodium (Porcine) 10,000 unit STK-MED ONCE .ROUTE ; Start 12/09/16 at 09: 34; Stop 12/09/16 at 09:35; Status DC Hydrocortisone Sodium Succinate (Solu-Cortef) 100 mg Q8HRS IV Last administered on 12/09/16 22:09; Start 12/09/16 at 10:30; Stop 12/10/16 at 07:03 ; Status DC Pantoprazole Sodium 40 mg 40 mg DAILYAC PO Last administered on 12/11/16 09:16 ; Start 12/09/16 at 11:00 Norepinephrine Bitartrate/Sodium Chloride (Levophed Vial/ Iv Sodium Chloride 0.9 % 250ml) 258 ml @ 0 mls/hr CONT PRN IV SEE I/O RECORD; Start 12/09/16 at 13:30 Hydrocortisone Sodium Succinate (Solu-Cortef) 50 mg Q8HRS IV Last administered on 12/11/16 06:15; Start 12/10/16 at 07:30 Guaifenesin (Mucinex) 1,200 mg BID PO Last administered on 12/11/16 09:16; Start 12/10/16 at 21:00 Guaifenesin (Mucinex) 1,200 mg 1X ONCE PO Last administered on 12/10/16 15:17 ; Start 12/10/16 at 14:30; Stop 12/10/16 at 14:32; Status DC Alprazolam (Xanax) 0.25 mg PRN Q8HRS PRN PO ANXIETY / AGITATION; Start at 17:30 Lorazepam (Ativan) 0.5 mg PRN Q4HRS PRN IV ANXIETY / AGITATION Last administered on 12/10/16 17:36; Start 12/10/16 at 17:30 Active Scripts Active Bactrim Ds Tablet (Sulfamethoxazole/Trimethoprim) 1 Each Tablet 1 Tab PO BID Nystatin 15 Gm Powder 15 Gm TP BID Lisinopril 10 Mg Tablet 30 Mg PO DAILY Reported Tylenol (Acetaminophen) 325 Mg Tablet 650 Mg PO TID PRN PRN Metformin Hcl 500 Mg Tablet 1 Tab PO TID Aspir 81 (Aspirin) 81 Mg Tablet.dr 1 Tab PO DAILY Allopurinol 100 Mg Tablet 1 Tab PO DAILY Iron Supplement (Ferrous Sulfate) 325 Mg Tablet 1 Tab PO DAILY Advair 250-50 Diskus (Fluticasone/Salmeterol) 1 Each Disk.w.dev 1 Puff IH BID Duoneb 0.5-3(2.5) Mg/3 Ml (Albuterol/Ipratropium) 3 Ml Ampul.neb 3 Ml IH Q4HRS PRN Pravastatin Sodium 10 Mg Tablet 1 Tab PO DAILY Carvedilol 6.25 Mg Tablet 1 Tab PO BID Furosemide 40 Mg Tablet 1 Tab PO DAILY Vitals/I & O Vital Sign - Last 24 Hours 12/10/16 12/10/16 12/10/16 12/10/16 11:00 12:00 12:00 12:29 Temp 98.0 98.0 Pulse 88 86 Resp 21 19 B/P 102/54 115/53 Pulse Ox 93 95 O2 Delivery Nasal Cannula Nasal Cannula Nasal Cannula O2 Flow Rate 4.0 4.0 4.0 12/10/16 12/10/16 12/10/16 12/10/16 13:00 14:00 15:00 15:44 Temp 98.0 98.0 Pulse 84 92 90 Resp 30 23 B/P 126/67 111/52 105/50 Pulse Ox 97 93 96 96 O2 Delivery Nasal Cannula Nasal Cannula O2 Flow Rate 4.0 4.0 12/10/16 12/10/16 12/10/16 12/10/16 15:56 15:59 16:00 16:00 Pulse 98 Resp 23 32 B/P 132/56 Pulse Ox 98 97 97 O2 Delivery Nasal Cannula Nasal Cannula Nasal Cannula O2 Flow Rate 4.0 4.0 12/10/16 12/10/16 12/10/16 12/10/16 16:26 17:00 18:00 19:00 Temp 97.7 97.7 Pulse 90 88 80 Resp 16 26 17 15 B/P 104/42 94/47 125/57 Pulse Ox 97 93 95 97 O2 Delivery Nasal Cannula Nasal Cannula O2 Flow Rate 4.0 4.0 12/10/16 12/10/16 12/10/16 12/10/16 20:00 20:00 20:18 20:20 Pulse 79 Resp 17 B/P 119/55 Pulse Ox 97 97 97 O2 Delivery Nasal Cannula Nasal Cannula Nasal Cannula Nasal Cannula O2 Flow Rate 4.0 4.0 4.0 4.0 12/10/16 12/10/16 12/10/16 12/11/16 21:00 22:00 23:00 00:00 Pulse 83 82 81 82 Resp 20 B/P 144/66 137/62 133/58 124/59 Pulse Ox 97 99 97 97 O2 Delivery Nasal Cannula Nasal Cannula Nasal Cannula Nasal Cannula O2 Flow Rate 4.0 4.0 4.0 4.0 12/11/16 12/11/16 12/11/16 12/11/16 00:00 01:00 02:00 03:00 Pulse 86 86 82 Resp 20 20 B/P 124/65 123/60 110/53 Pulse Ox 97 97 97 O2 Delivery Nasal Cannula Nasal Cannula Nasal Cannula Nasal Cannula O2 Flow Rate 4.0 4.0 4.0 4.0 12/11/16 12/11/16 12/11/16 12/11/16 04:00 04:00 05:00 06:00 Temp 98.0 98.0 Pulse 79 76 85 Resp 16 B/P 134/66 134/69 123/60 Pulse Ox 97 97 97 O2 Delivery Nasal Cannula Nasal Cannula Nasal Cannula Nasal Cannula O2 Flow Rate 4.0 4.0 4.0 4.0 12/11/16 07:29 Pulse Ox 96 O2 Delivery Nasal Cannula O2 Flow Rate 7.0 Intake and Output 12/10/16 12/10/16 12/11/16 15:00 23:00 07:00 Intake Total 550 ml 1335 ml Output Total 750 ml 625 ml Balance -200 ml 710 ml TESS LOZANO MD Dec 11, 2016 10:11
--- NOTE | 2016-12-11 20:30 | PDOC ---
Provider Note Provider Note Provider Note RENAL F/U : DINESH S : Feels better. O : Doing better/stable. VSS Afebrile. Neck : Supple. Lungs : Non labored. CVS : RRR ABD : Benign. Ext : Trace edema. Labs, I/Os reviewed. A/P : ARF : ATN. Cr better. UOP slowly better. SEPSIS/ HYPOTENSION : better HTN w CKD. CKD III : Baseline Cr about 1.8 or so Supportive care. No new issues. DIANA MONTIEL MD Dec 11, 2016 20:30
[2016-12-11] MEDS: MONTELUKAST SODIUM 10 MG TABLET. PO SCH (20:52)
[2016-12-11] MEDS: CEFTRIAXONE SODIUM 1 GM in IV NORMAL SALINE 50ML 50 ML IV SCH (20:52)
[2016-12-11] MEDS: ATORVASTATIN CALCIUM 10 MG TABLET. PO SCH (20:52)
[2016-12-11] MEDS: FLUCONAZOLE 200MG/100ML PREMIX 100 ML IV SCH (20:59)
[2016-12-12] VITALS (13 sets, daily range): BP systolic 124–159; BP diastolic 49–81
[2016-12-12] MEDS: HYDROCORTISONE SOD SUCC/PF 100 MG/2 ML VIAL. IV SCH ×3 (05:57→22:29)
[2016-12-12 06:27] LABS: ALBUMIN 1.9 g/dL (3.4-5.0); CREATININE 1.7 mg/dL (0.6-1.0); GFR 29.1; PHOSPHORUS 2.9 mg/dL (2.6-4.7); POTASSIUM 3.6 mmol/L (3.5-5.1)
[2016-12-12] MEDS: IPRATRPIUM/ALBUTEROL 0.5/2.5MG 3 ML NEBU. NEB SCH ×4 (07:18→19:49)
[2016-12-12] MEDS: BUDESONIDE 0.5 MG/2 ML NEBU. NEB SCH ×2 (07:19→19:49)
[2016-12-12] MEDS: INSULIN ASPART 300 UNITS/3 ML INSULN.PEN SQ SCH ×3 (07:44→16:56)
[2016-12-12] MEDS: PANTOPRAZOLE 40 MG TABLET. PO SCH (08:14)
[2016-12-12] MEDS: GUAIFENESIN ER 600 MG TABLET.ER PO SCH ×2 (08:14→20:46)
[2016-12-12] MEDS: ASPIRIN ENTERIC COATED 81 MG TABLET.DR. PO SCH (08:14)
[2016-12-12] MEDS: NYSTATIN TOPICAL POWDER 15GM BOTTLE. TP SCH ×4 (08:14→20:46)
[2016-12-12] MEDS: FERROUS SULFATE 325 MG TABLET PO SCH (08:14)
[2016-12-12] MEDS: ALLOPURINOL 100 MG TABLET. PO SCH (08:14)
[2016-12-12] MEDS: HEPARIN PF for SUB-Q USE 5,000 UNIT/0.5 ML VIAL. SQ SCH ×2 (08:17→20:53)
--- NOTE | 2016-12-12 08:18 | PDOC ---
Infectious Disease Note Subjective Subjective Comfortable, up in chair ROS ROS GEN: Denies fevers, chills, sweats HEENT: Denies blurred vision, sore throat CV: Denies chest pain RESP: Denies shortness of air, cough GI: Denies n/v/d NEURO: Denies confusion, dizziness MSK: Denies weakness, joint pain/swelling Vital Sign Vital Signs Vital Signs Date Time Temp Pulse Resp B/P Pulse Ox O2 Delivery O2 Flow Rate FiO2 12/12/16 07:45 97.9 90 18 144/71 99 Nasal Cannula 6.0 97.9 Physical Exam PHYSICAL EXAM GENERAL: NAD, Alert HEENT: PERRL, OC/OP NECK: Supple, no JVD, no LN LUNGS: Clear HEART: S1S2, no gallop, no murmur ABD: Soft, NT, no organomegaly, no rebound EXT: No edema, no cyanosis WOOL SHEARER: Alert, oriented x 3, no focal neurologic deficit SKIN: No rash IV: ok Labs Lab Laboratory Tests Test 12/11/16 08:25 12/11/16 12:36 12/11/16 17:32 12/12/16 06:02 Glucose (Fingerstick) 156mg/dL (70-99) 149mg/dL (70-99) 138mg/dL (70-99) Sodium Level 140mmol/L (136-145) Potassium Level 3.6mmol/L (3.5-5.1) Chloride Level 102mmol/L (98-107) Carbon Dioxide Level 32mmol/L (21-32) Anion Gap 6 (6-14) Blood Urea Nitrogen 39mg/dL (7-20) Creatinine 1.7mg/dL (0.6-1.0) Estimated GFR (Cockcroft-Gault) 29.1 Glucose Level 140mg/dL (70-99) Calcium Level 8.0mg/dL (8.5-10.1) Phosphorus Level 2.9mg/dL (2.6-4.7) Magnesium Level 1.7mg/dL (1.8-2.4) Albumin 1.9g/dL (3.4-5.0) Test 12/12/16 07:44 Glucose (Fingerstick) 127mg/dL (70-99) Objective Assessment Hypotension likely sec to hypotension Extensive yeast infection in skin folds REY on CRI Debility Weakness CHF COPD UTI Plan Plan of Care Rocephin and fluconazole cultures NGTD Supportive care OPAL NORTON MD Dec 12, 2016 08:18
--- NOTE | 2016-12-12 10:04 | PDOC ---
PULMONARY PROGRESS NOTES Subjective off levo , no soa Vitals Vital Signs Date Time Temp Pulse Resp B/P Pulse Ox O2 Delivery O2 Flow Rate FiO2 12/12/16 07:45 97.9 90 18 144/71 99 Nasal Cannula 6.0 97.9 Comments ros as mentioned as above other sys otherwise neg ROS: No Nausea, No Chest Pain, No Abdominal Pain, No Increase Cough General: Alert, Oriented X4, No acute distress HEENT: Other (nc at perrl, throat nose clear) Lungs: Clear Cardiovascular: S1, S2 Abdomen: Soft, Non-tender, Other (no mass) Neuro Exam: Alert, Oriented Extremities: No Edema, Other Skin: Warm, Rash Labs Laboratory Tests Test 12/10/16 12:10 12/11/16 05:40 12/11/16 08:25 12/11/16 12:36 Glucose (Fingerstick) 175mg/dL (70-99) 156mg/dL (70-99) 149mg/dL (70-99) White Blood Count 12.1x10^3/uL (4.0-11.0) Red Blood Count 2.74x10^6/uL (3.50-5.40) Hemoglobin 7.9g/dL (12.0-15.5) Hematocrit 24.8% (36.0-47.0) Mean Corpuscular Volume 91fL (79-100) Mean Corpuscular Hemoglobin 29pg (25-35) Mean Corpuscular Hemoglobin Concent 32g/dL (31-37) Red Cell Distribution Width 16.0% (11.5-14.5) Platelet Count 205x10^3/uL (140-400) Neutrophils (%) (Auto) 82% (31-73) Lymphocytes (%) (Auto) 13% (24-48) Monocytes (%) (Auto) 4% (0-9) Eosinophils (%) (Auto) 0% (0-3) Basophils (%) (Auto) 1% (0-3) Neutrophils # (Auto) 9.9x10^3uL (1.8-7.7) Lymphocytes # (Auto) 1.6x10^3/uL (1.0-4.8) Monocytes # (Auto) 0.5x10^3/uL (0.0-1.1) Eosinophils # (Auto) 0.0x10^3/uL (0.0-0.7) Basophils # (Auto) 0.1x10^3/uL (0.0-0.2) Segmented Neutrophils % 84% (35-66) Lymphocytes % 11% (24-48) Monocytes % 3% (0-10) Metamyelocytes % 2% (0-0) Nucleated Red Blood Cells 1 Platelet Estimate Adequate (ADEQUATE) Sodium Level 140mmol/L (136-145) Potassium Level 3.6mmol/L (3.5-5.1) Chloride Level 101mmol/L (98-107) Carbon Dioxide Level 31mmol/L (21-32) Anion Gap 8 (6-14) Blood Urea Nitrogen 46mg/dL (7-20) Creatinine 2.0mg/dL (0.6-1.0) Estimated GFR (Cockcroft-Gault) 24.1 Glucose Level 185mg/dL (70-99) Calcium Level 8.0mg/dL (8.5-10.1) Phosphorus Level 2.7mg/dL (2.6-4.7) Magnesium Level 1.7mg/dL (1.8-2.4) Albumin 1.9g/dL (3.4-5.0) Thyroid Stimulating Hormone (TSH) 1.418uIU/mL (0.358-3.74) Test 12/11/16 17:32 12/12/16 06:02 12/12/16 07:44 Glucose (Fingerstick) 138mg/dL (70-99) 127mg/dL (70-99) Sodium Level 140mmol/L (136-145) Potassium Level 3.6mmol/L (3.5-5.1) Chloride Level 102mmol/L (98-107) Carbon Dioxide Level 32mmol/L (21-32) Anion Gap 6 (6-14) Blood Urea Nitrogen 39mg/dL (7-20) Creatinine 1.7mg/dL (0.6-1.0) Estimated GFR (Cockcroft-Gault) 29.1 Glucose Level 140mg/dL (70-99) Calcium Level 8.0mg/dL (8.5-10.1) Phosphorus Level 2.9mg/dL (2.6-4.7) Magnesium Level 1.7mg/dL (1.8-2.4) Albumin 1.9g/dL (3.4-5.0) Laboratory Tests Test 12/11/16 12:36 12/11/16 17:32 12/12/16 06:02 12/12/16 07:44 Glucose (Fingerstick) 149mg/dL (70-99) 138mg/dL (70-99) 127mg/dL (70-99) Sodium Level 140mmol/L (136-145) Potassium Level 3.6mmol/L (3.5-5.1) Chloride Level 102mmol/L (98-107) Carbon Dioxide Level 32mmol/L (21-32) Anion Gap 6 (6-14) Blood Urea Nitrogen 39mg/dL (7-20) Creatinine 1.7mg/dL (0.6-1.0) Estimated GFR (Cockcroft-Gault) 29.1 Glucose Level 140mg/dL (70-99) Calcium Level 8.0mg/dL (8.5-10.1) Phosphorus Level 2.9mg/dL (2.6-4.7) Magnesium Level 1.7mg/dL (1.8-2.4) Albumin 1.9g/dL (3.4-5.0) Medications Active Scripts Medications Dose Route/Sig Days Date Category Bactrim Ds Tablet (Sulfamethoxazole/Trimethoprim) 1 Each Tablet 1 Tab PO BID 12/07/16 Rx Nystatin 15 Gm Powder 15 Gm TP BID 12/07/16 Rx Tylenol (Acetaminophen) 325 Mg Tablet 650 Mg PO TID PRN PRN 04/11/16 Reported Metformin Hcl 500 Mg Tablet 1 Tab PO TID 04/11/16 Reported Aspir 81 (Aspirin) 81 Mg Tablet.dr 1 Tab PO DAILY 04/11/16 Reported Lisinopril 10 Mg Tablet 30 Mg PO DAILY 12/11/15 Rx Allopurinol 100 Mg Tablet 1 Tab PO DAILY 11/16/15 Reported Iron Supplement (Ferrous Sulfate) 325 Mg Tablet 1 Tab PO DAILY 11/10/15 Reported Advair 250-50 Diskus (Fluticasone/Salmeterol) 1 Each Disk.w.dev 1 Puff IH BID 05/06/15 Reported Duoneb 0.5-3(2.5) Mg/3 Ml (Albuterol/Ipratropium) 3 Ml Ampul.neb 3 Ml IH Q4HRS PRN 05/06/15 Reported Pravastatin Sodium 10 Mg Tablet 1 Tab PO DAILY 09/16/14 Reported Carvedilol 6.25 Mg Tablet 1 Tab PO BID 09/16/14 Reported Furosemide 40 Mg Tablet 1 Tab PO DAILY 09/16/14 Reported Comments cxr reviewed, Increase in interstitial prominence relative to the previous exam suggesting interstitial edema or interstitial pneumonitis Impression . 1. [id number] respiratory failure, multifactorial in etiology. 2. Abnormal chest x-ray. 3. Shock, septic versus hypovolemic. 4. Excessive yeast infection. 5. Acute kidney injury on chronic renal insufficiency. 6. Leukocytosis. 7. Anemia. 8. Congestive heart failure. 9. Chronic obstructive pulmonary disease. 10. Urinary tract infection. 11. allergic rhinitis Plan . 1. Titrate FiO2 to keep O2 saturation 92%. 2. Bronchodilator. 3. Inhaled corticosteroid. 4. taper Solu-Cortef. The patient has had on prednisone. On and off for a long time. 5. Continue antibiotics 6. Follow up cultures. 7. s/p Fluid resuscitation. 8. Nephrology and ID recommendations 9. Heparin for deep venous thrombosis prophylaxis. 10. protonix for stress ulcer prophylaxis. 11. off pressor 12. d/w RN, transfer to floor SHERON URENA MD Dec 12, 2016 10:04
--- NOTE | 2016-12-12 10:39 | PDOC ---
PROGRESS NOTES Chief Complaint Chief Complaint Assessment: 1. Severe SEPSIS with HYPOTENSIOn off pressors sec to SEVERE CANDIDIASIS, intertriginous areas 2. CHronic STEROID use sec to AECOPD, past admits 3. REY on CKD - baseline? 4. Hx CHF? per documentation 5. 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 OLiguric renal failure 8. 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 HTN hx nOW HYPOTENSIVE 10. DYslipidemia 11. HYPOTENSION at night needing low dose levophed History of Present Illness History of Present Illness Patient was sitting in the chair at the time of evaluation, she was in no acute distress, awake and alert, she stated she is feeling better. May get transfer to med floor today. Plan of care discussed with Dr. Shipley and RN. Vitals Vitals Vital Signs Date Time Temp Pulse Resp B/P Pulse Ox O2 Delivery O2 Flow Rate FiO2 12/12/16 07:45 97.9 90 18 144/71 99 Nasal Cannula 6.0 97.9 Physical Exam General: Alert, Oriented X3, Cooperative, No acute distress Heart: Regular rate, Gallops Lungs: Clear Abdomen: Normal bowel sounds, Soft, No tenderness, No hepatosplenomegaly, No masses Extremities: No clubbing, No cyanosis, No tenderness/swelling Skin: Other (erythematous rash underneath breasts, encompassing whole line of the underbreasts with extension to the breasts itself, similar rash on bilateral groins and inner thigh, no appreciable open lesions though or weeping) Labs LABS Laboratory Tests Test 12/11/16 12:36 12/11/16 17:32 12/12/16 06:02 12/12/16 07:44 Glucose (Fingerstick) 149mg/dL (70-99) 138mg/dL (70-99) 127mg/dL (70-99) Sodium Level 140mmol/L (136-145) Potassium Level 3.6mmol/L (3.5-5.1) Chloride Level 102mmol/L (98-107) Carbon Dioxide Level 32mmol/L (21-32) Anion Gap 6 (6-14) Blood Urea Nitrogen 39mg/dL (7-20) Creatinine 1.7mg/dL (0.6-1.0) Estimated GFR (Cockcroft-Gault) 29.1 Glucose Level 140mg/dL (70-99) Calcium Level 8.0mg/dL (8.5-10.1) Phosphorus Level 2.9mg/dL (2.6-4.7) Magnesium Level 1.7mg/dL (1.8-2.4) Albumin 1.9g/dL (3.4-5.0) Review of Systems Review of Systems Denies fever, chills Denies SOB, CP Skin rashes were present under breast and in groins Awake, alert off of levophed drip Assessment and Plan Assessmemt and Plan Assessment: 1. Severe SEPSIS with HYPOTENSIOn off pressors sec to SEVERE CANDIDIASIS, intertriginous areas 2. CHronic STEROID use sec to AECOPD, past admits 3. REY on CKD - baseline? 4. Hx CHF? per documentation 5. 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 OLiguric renal failure 8. 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 HTN hx nOW HYPOTENSIVE 10. DYslipidemia 11. HYPOTENSION at night needing low dose levophed PLAN: may get transfer to med/tele floor today Off of levophed Continue care per floor protocol Continue antibiotics per ID recommendations recheck labs in AM PT/OT D/w pulmo and RN Appreciate subspecialities inputs and recommendations Check serum AM cortisol - re hypotension, hx of chronic steroid use Problems Medical Problems: (1) Acute renal failure Status: Acute (2) Cellulitis Status: Acute (3) Severe sepsis Status: Acute (4) Yeast dermatitis Status: Acute Problems: Comment Review of Relevant I have reviewed the following items [place] (where applicable) has been applied. Labs Laboratory Tests Test 12/10/16 12:10 12/11/16 05:40 12/11/16 08:25 12/11/16 12:36 Glucose (Fingerstick) 175mg/dL (70-99) 156mg/dL (70-99) 149mg/dL (70-99) White Blood Count 12.1x10^3/uL (4.0-11.0) Red Blood Count 2.74x10^6/uL (3.50-5.40) Hemoglobin 7.9g/dL (12.0-15.5) Hematocrit 24.8% (36.0-47.0) Mean Corpuscular Volume 91fL (79-100) Mean Corpuscular Hemoglobin 29pg (25-35) Mean Corpuscular Hemoglobin Concent 32g/dL (31-37) Red Cell Distribution Width 16.0% (11.5-14.5) Platelet Count 205x10^3/uL (140-400) Neutrophils (%) (Auto) 82% (31-73) Lymphocytes (%) (Auto) 13% (24-48) Monocytes (%) (Auto) 4% (0-9) Eosinophils (%) (Auto) 0% (0-3) Basophils (%) (Auto) 1% (0-3) Neutrophils # (Auto) 9.9x10^3uL (1.8-7.7) Lymphocytes # (Auto) 1.6x10^3/uL (1.0-4.8) Monocytes # (Auto) 0.5x10^3/uL (0.0-1.1) Eosinophils # (Auto) 0.0x10^3/uL (0.0-0.7) Basophils # (Auto) 0.1x10^3/uL (0.0-0.2) Segmented Neutrophils % 84% (35-66) Lymphocytes % 11% (24-48) Monocytes % 3% (0-10) Metamyelocytes % 2% (0-0) Nucleated Red Blood Cells 1 Platelet Estimate Adequate (ADEQUATE) Sodium Level 140mmol/L (136-145) Potassium Level 3.6mmol/L (3.5-5.1) Chloride Level 101mmol/L (98-107) Carbon Dioxide Level 31mmol/L (21-32) Anion Gap 8 (6-14) Blood Urea Nitrogen 46mg/dL (7-20) Creatinine 2.0mg/dL (0.6-1.0) Estimated GFR (Cockcroft-Gault) 24.1 Glucose Level 185mg/dL (70-99) Calcium Level 8.0mg/dL (8.5-10.1) Phosphorus Level 2.7mg/dL (2.6-4.7) Magnesium Level 1.7mg/dL (1.8-2.4) Albumin 1.9g/dL (3.4-5.0) Thyroid Stimulating Hormone (TSH) 1.418uIU/mL (0.358-3.74) Test 12/11/16 17:32 12/12/16 06:02 12/12/16 07:44 Glucose (Fingerstick) 138mg/dL (70-99) 127mg/dL (70-99) Sodium Level 140mmol/L (136-145) Potassium Level 3.6mmol/L (3.5-5.1) Chloride Level 102mmol/L (98-107) Carbon Dioxide Level 32mmol/L (21-32) Anion Gap 6 (6-14) Blood Urea Nitrogen 39mg/dL (7-20) Creatinine 1.7mg/dL (0.6-1.0) Estimated GFR (Cockcroft-Gault) 29.1 Glucose Level 140mg/dL (70-99) Calcium Level 8.0mg/dL (8.5-10.1) Phosphorus Level 2.9mg/dL (2.6-4.7) Magnesium Level 1.7mg/dL (1.8-2.4) Albumin 1.9g/dL (3.4-5.0) Laboratory Tests Test 12/11/16 12:36 12/11/16 17:32 12/12/16 06:02 12/12/16 07:44 Glucose (Fingerstick) 149mg/dL (70-99) 138mg/dL (70-99) 127mg/dL (70-99) Sodium Level 140mmol/L (136-145) Potassium Level 3.6mmol/L (3.5-5.1) Chloride Level 102mmol/L (98-107) Carbon Dioxide Level 32mmol/L (21-32) Anion Gap 6 (6-14) Blood Urea Nitrogen 39mg/dL (7-20) Creatinine 1.7mg/dL (0.6-1.0) Estimated GFR (Cockcroft-Gault) 29.1 Glucose Level 140mg/dL (70-99) Calcium Level 8.0mg/dL (8.5-10.1) Phosphorus Level 2.9mg/dL (2.6-4.7) Magnesium Level 1.7mg/dL (1.8-2.4) Albumin 1.9g/dL (3.4-5.0) Microbiology 12/08/16 Blood Culture - Preliminary, Resulted NO GROWTH AFTER 3 DAYS 12/08/16 Urine Culture - Final, Complete 12/08/16 Urine Culture Result 1 (VICENTE) - Final, Complete Medications Current Medications Fentanyl Citrate 25 mcg 25 mcg PRN Q15MIN PRN IV PAIN GREATER THAN 3/10 Last administered on 12/08/16 20:37; Start 12/08/16 at 19:45; Stop 12/09/16 at 19:44 ; Status DC Sodium Chloride (Iv Sodium Chloride 0.9% 1000ml Bag) 1,000 ml @ 1,000 mls/hr Q1H IV Last administered on 12/08/16 20:20; Start 12/08/16 at 20:00; Stop at 20:59; Status DC Ondansetron HCl (Zofran) 4 mg 1X ONCE IV Last administered on 12/08/16 20:21 ; Start 12/08/16 at 20:00; Stop 12/08/16 at 20:01; Status DC Nystatin 1 jaison 1 jaison BID TP Last administered on 12/08/16 20:24; Start at 20:15; Stop 12/09/16 at 08:28; Status DC Ceftriaxone Sodium/Sodium Chloride (Rocephin/Iv Sodium Chloride 0.9% 50ml) 50 ml @ 100 mls/hr Q24H IV Last administered on 12/11/16 20:52; Start 12/09/16 at 20:00 Vancomycin HCl 1 each 1 each PRN DAILY PRN MC SEE COMMENTS Last administered on 12/08/16 20:57; Start 12/08/16 at 19:45; Stop 12/09/16 at 07:57; Status DC Ceftriaxone Sodium 50 ml @ 100 mls/hr 1X ONCE IV Last administered on 20:23; Start 12/08/16 at 20:15; Stop 12/08/16 at 20:44; Status DC Vancomycin HCl 1.75 gm/Sodium Chloride 500 ml @ 250 mls/hr 1X ONCE IV Last administered on 12/08/16 20:19; Start 12/08/16 at 20:30; Stop 12/08/16 at 22:29 ; Status DC Fluconazole/ Sodium Chloride (Diflucan 400mg/ 200ml Premix) 200 ml @ 100 mls/ hr Q24H IV Last administered on 12/08/16 21:00; Start 12/08/16 at 21:00; Stop 12/08/16 at 22:00; Status DC Vancomycin HCl 1 each 1 each 1X ONCE MC ; Start 12/10/16 at 20:00; Stop at 20:00; Status DC Sodium Chloride 1,000 ml @ 1,000 mls/hr 1X ONCE IV Last administered on 21:02; Start 12/08/16 at 21:00; Stop 12/08/16 at 21:59; Status DC Fluconazole/ Sodium Chloride (Diflucan 200mg/ 100ml Premix) 100 ml @ 100 mls/ hr Q24H IV Last administered on 12/11/16 20:59; Start 12/09/16 at 21:00 Ondansetron HCl (Zofran) 4 mg PRN Q8HRS PRN IV NAUSEA/VOMITING Last administered on 12/09/16 02:05; Start 12/08/16 at 21:30; Stop 12/09/16 at 07:55 ; Status DC Fentanyl Citrate 50 mcg 50 mcg PRN Q2HR PRN IV PAIN; Start 12/08/16 at 21:30; Stop 12/09/16 at 21:29; Status DC Sodium Chloride (Iv Sodium Chloride 0.9% 1000ml Bag) 1,000 ml @ 125 mls/hr Q8H IV Last administered on 12/09/16 05:42; Start 12/08/16 at 21:30; Stop at 08:48; Status DC Acetaminophen 650 mg 650 mg PRN Q4HRS PRN PO FEVER; Start 12/08/16 at 21:30; Stop 12/09/16 at 21:29; Status DC Norepinephrine Bitartrate/Sodium Chloride (Levophed Vial/ Iv Sodium Chloride 0.9 % 250ml) 258 ml @ 0 mls/hr 1X ONCE IV Last administered on 12/08/16 22:00; Start 12/08/16 at 22:00; Stop 12/08/16 at 22:01; Status DC Ondansetron HCl (Zofran) 4 mg PRN Q6HRS PRN IV NAUSEA/VOMITING 1ST CHOICE Last administered on 12/09/16 09:06; Start 12/09/16 at 07:52 Insulin Aspart (Novolog) 0-9 UNITS TIDWMEALS SQ ; Start 12/09/16 at 08:00; Stop 12/09/16 at 08:19; Status DC Dextrose 12.5 gm PRN Q15MIN PRN IV SEE COMMENTS; Start 12/09/16 at 08:00 Morphine Sulfate 2 mg PRN Q2HR PRN IV PAIN SEVERE Last administered on 15:56; Start 12/09/16 at 08:00 Oxycodone/ Acetaminophen (Percocet 5/325) 1 tab PRN Q6HRS PRN PO PAIN MOD TO SEV; Start 12/09/16 at 08:00 Allopurinol (Zyloprim) 100 mg DAILY PO Last administered on 12/12/16 08:14; Start 12/09/16 at 09:00 Aspirin (Ecotrin) 81 mg DAILY08 PO Last administered on 12/12/16 08:14; Start 12/09/16 at 09:00 Carvedilol (Coreg) 6.25 mg BIDWMEALS PO ; Start 12/09/16 at 08:30; Stop at 15:18; Status DC Ferrous Sulfate (Feosol) 325 mg DAILY08 PO Last administered on 12/12/16 08:14 ; Start 12/09/16 at 09:00 Furosemide (Lasix) 40 mg DAILY PO ; Start 12/09/16 at 09:00; Stop 12/09/16 at 09 :00; Status DC Albuterol Sulfate (Ventolin Neb Soln) 2.5 mg PRN Q4HRS PRN INH CONGESTION; Start 12/09/16 at 08:00 Lisinopril (Prinivil) 30 mg DAILY PO ; Start 12/09/16 at 09:00; Stop 12/09/16 at 09:00; Status DC Nystatin (Nystop) 1 jaison BID TP ; Start 12/09/16 at 09:00; Stop 12/09/16 at 09:00 ; Status DC Budesonide (Pulmicort) 0.5 mg RTBID NEB ; Start 12/09/16 at 08:30; Stop at 08:30; Status DC Atorvastatin Calcium (Lipitor) 5 mg QHS PO Last administered on 12/11/16 20:52 ; Start 12/09/16 at 21:00 Budesonide (Pulmicort) 0.5 mg RTBID NEB Last administered on 12/12/16 07:19; Start 12/09/16 at 08:30 Albuterol Sulfate (Ventolin Neb Soln) 2.5 mg RTQID NEB ; Start 12/09/16 at 12:00 ; Stop 12/09/16 at 12:00; Status DC Nystatin (Nystop) 1 jaison QID TP Last administered on 12/12/16 08:14; Start at 09:00 Heparin Sodium (Porcine) 5,000 unit BID SQ Last administered on 12/12/16 08:17 ; Start 12/09/16 at 09:00 Insulin Aspart (Novolog) 0-7 UNITS TIDWMEALS SQ Last administered on 12/11/16 09:18; Start 12/09/16 at 12:00 Dextrose 12.5 gm PRN Q15MIN PRN IV SEE COMMENTS; Start 12/09/16 at 08:30; Status UNV Zinc Acetate/ Diphenhydramine (Benadryl Topical) 1 jaison PRN BID PRN TP pruritis ; Start 12/09/16 at 08:30 Albuterol/ Ipratropium 3 ml 3 ml RTQID NEB Last administered on 12/12/16 07:18 ; Start 12/09/16 at 12:00 Magnesium Sulfate/ Dextrose 50 ml @ 25 mls/hr PRN DAILY PRN IV for Mag < 1.7 on am labs; Start 12/09/16 at 08:45 Sodium Chloride 500 ml @ 0 mls/hr QID PRN IV UO< 30cc/hr over previous 6hrs; Start 12/09/16 at 08:45 Sodium Bicarbonate/ Dextrose 1,150 ml @ 100 mls/hr [id number] IV Last administered on 12/10/16 20:35; Start 12/09/16 at 09:00; Stop 12/11/16 at 17:35 ; Status DC Lidocaine/Sodium Bicarbonate (Buffered Lidocaine 1%) 3 ml 1X ONCE IJ Last administered on 12/09/16 11:08; Start 12/09/16 at 09:15; Stop 12/09/16 at 09:16 ; Status DC Heparin Sodium/ Sodium Chloride 60 unit 1X ONCE IV Last administered on 11:07; Start 12/09/16 at 09:15; Stop 12/09/16 at 09:16; Status DC Heparin Sodium (Porcine) 2,500 unit 1X ONCE INT CAT Last administered on 11:07; Start 12/09/16 at 09:15; Stop 12/09/16 at 09:16; Status DC Darbepoetin Krzysztof (Aranesp) 60 mcg WEEKLYHS SQ Last administered on 12/09/16 20 :35; Start 12/09/16 at 21:00 Heparin Sodium (Porcine) 10,000 unit STK-MED ONCE .ROUTE ; Start 12/09/16 at 09: 34; Stop 12/09/16 at 09:35; Status DC Hydrocortisone Sodium Succinate (Solu-Cortef) 100 mg Q8HRS IV Last administered on 12/09/16 22:09; Start 12/09/16 at 10:30; Stop 12/10/16 at 07:03 ; Status DC Pantoprazole Sodium 40 mg 40 mg DAILYAC PO Last administered on 12/12/16 08:14 ; Start 12/09/16 at 11:00 Norepinephrine Bitartrate/Sodium Chloride (Levophed Vial/ Iv Sodium Chloride 0.9 % 250ml) 258 ml @ 0 mls/hr CONT PRN IV SEE I/O RECORD; Start 12/09/16 at 13:30 Hydrocortisone Sodium Succinate (Solu-Cortef) 50 mg Q8HRS IV Last administered on 12/12/16 05:57; Start 12/10/16 at 07:30; Stop 12/12/16 at 10:05; Status DC Guaifenesin (Mucinex) 1,200 mg BID PO Last administered on 12/12/16 08:14; Start 12/10/16 at 21:00 Guaifenesin (Mucinex) 1,200 mg 1X ONCE PO Last administered on 12/10/16 15:17 ; Start 12/10/16 at 14:30; Stop 12/10/16 at 14:32; Status DC Alprazolam (Xanax) 0.25 mg PRN Q8HRS PRN PO ANXIETY / AGITATION; Start at 17:30 Lorazepam (Ativan) 0.5 mg PRN Q4HRS PRN IV ANXIETY / AGITATION Last administered on 12/10/16 17:36; Start 12/10/16 at 17:30 Montelukast Sodium (Singulair) 10 mg QHS PO Last administered on 12/11/16t 20: 52; Start 12/11/16 at 21:00 Hydrocortisone Sodium Succinate (Solu-Cortef) 25 mg Q8HRS IV ; Start 12/12/16 at 14:00 Active Scripts Active Bactrim Ds Tablet (Sulfamethoxazole/Trimethoprim) 1 Each Tablet 1 Tab PO BID Nystatin 15 Gm Powder 15 Gm TP BID Lisinopril 10 Mg Tablet 30 Mg PO DAILY Reported Tylenol (Acetaminophen) 325 Mg Tablet 650 Mg PO TID PRN PRN Metformin Hcl 500 Mg Tablet 1 Tab PO TID Aspir 81 (Aspirin) 81 Mg Tablet.dr 1 Tab PO DAILY Allopurinol 100 Mg Tablet 1 Tab PO DAILY Iron Supplement (Ferrous Sulfate) 325 Mg Tablet 1 Tab PO DAILY Advair 250-50 Diskus (Fluticasone/Salmeterol) 1 Each Disk.w.dev 1 Puff IH BID Duoneb 0.5-3(2.5) Mg/3 Ml (Albuterol/Ipratropium) 3 Ml Ampul.neb 3 Ml IH Q4HRS PRN Pravastatin Sodium 10 Mg Tablet 1 Tab PO DAILY Carvedilol 6.25 Mg Tablet 1 Tab PO BID Furosemide 40 Mg Tablet 1 Tab PO DAILY Vitals/I & O Vital Sign - Last 24 Hours 12/11/16 12/11/16 12/11/16 12/11/16 11:00 11:56 12:00 12:00 Temp 98.6 98.6 Pulse 94 84 Resp 31 B/P 145/70 119/62 Pulse Ox 94 96 99 O2 Delivery Nasal Cannula Nasal Cannula Nasal Cannula Nasal Cannula O2 Flow Rate 6.0 7.0 6.0 4.0 12/11/16 12/11/16 12/11/16 12/11/16 13:00 14:00 15:00 16:00 Temp 98.5 98.5 Pulse 88 86 86 86 Resp 18 20 16 28 B/P 135/61 114/53 126/57 130/68 Pulse Ox 93 95 96 96 O2 Delivery Nasal Cannula Nasal Cannula Nasal Cannula Nasal Cannula O2 Flow Rate 6.0 6.0 6.0 6.0 12/11/16 12/11/16 12/11/16 12/11/16 16:00 16:41 17:00 18:00 Pulse 94 94 Resp 28 16 B/P 141/76 129/69 Pulse Ox 96 96 99 O2 Delivery Nasal Cannula Nasal Cannula Nasal Cannula Nasal Cannula O2 Flow Rate 6.0 6.0 6.0 6.0 12/11/16 12/11/16 12/11/16 12/11/16 19:00 19:58 20:00 20:00 Temp 97.4 97.4 Pulse 92 92 Resp 27 22 B/P 142/70 135/62 Pulse Ox 99 95 99 O2 Delivery Nasal Cannula Nasal Cannula Nasal Cannula Nasal Cannula O2 Flow Rate 6.0 6.0 6.0 6.0 12/11/16 12/11/16 12/11/16 12/11/16 21:00 22:00 23:00 23:59 Pulse 89 94 96 Resp 11 22 16 B/P 132/63 131/69 133/71 Pulse Ox 98 98 98 O2 Delivery Nasal Cannula Nasal Cannula Nasal Cannula Nasal Cannula O2 Flow Rate 6.0 6.0 6.0 6.0 12/12/16 12/12/16 12/12/16 12/12/16 00:00 01:00 02:00 03:00 Temp 97.8 97.8 Pulse 97 90 87 95 Resp 24 36 15 27 B/P 142/70 147/75 135/70 155/81 Pulse Ox 98 99 98 98 O2 Delivery Nasal Cannula Nasal Cannula Nasal Cannula Nasal Cannula O2 Flow Rate 6.0 6.0 6.0 6.0 12/12/16 12/12/16 12/12/16 12/12/16 04:00 04:00 05:00 06:00 Temp 98.2 98.2 Pulse 82 92 86 Resp 18 32 26 B/P 141/70 135/70 150/70 Pulse Ox 100 98 97 O2 Delivery Nasal Cannula Nasal Cannula Nasal Cannula Nasal Cannula O2 Flow Rate 6.0 6.0 6.0 6.0 12/12/16 12/12/16 07:20 07:45 Temp 97.9 97.9 Pulse 90 Resp 18 B/P 144/71 Pulse Ox 99 O2 Delivery Nasal Cannula Nasal Cannula O2 Flow Rate 6.0 6.0 Intake and Output 12/11/16 12/11/16 12/12/16 15:00 23:00 07:00 Intake Total 660 ml 556 ml Output Total 600 ml 635 ml Balance 60 ml -79 ml CASTLE,NIAL K III DO Dec 12, 2016 10:39
--- NOTE | 2016-12-12 11:43 | PDOC ---
Renal-Progress Notes Subjective Notes Notes SITTING UP History of Present Illness Hx of present illness BETTER Vitals Vitals Vital Signs Date Time Temp Pulse Resp B/P Pulse Ox O2 Delivery O2 Flow Rate FiO2 12/12/16 11:35 97 Nasal Cannula 3.0 12/12/16 11:35 83 28 159/81 12/12/16 07:45 97.9 97.9 Weight Weight [ ] I.O. Intake and Output Intake and Output 12/12/16 07:00 Intake Total 1216 ml Output Total 1235 ml Balance -19 ml Intake Oral 1010 ml Other 206 ml Output Urine Total 1235 ml Labs Labs Laboratory Tests Test 12/11/16 12:36 12/11/16 17:32 12/12/16 06:02 12/12/16 07:44 Glucose (Fingerstick) 149mg/dL (70-99) 138mg/dL (70-99) 127mg/dL (70-99) Sodium Level 140mmol/L (136-145) Potassium Level 3.6mmol/L (3.5-5.1) Chloride Level 102mmol/L (98-107) Carbon Dioxide Level 32mmol/L (21-32) Anion Gap 6 (6-14) Blood Urea Nitrogen 39mg/dL (7-20) Creatinine 1.7mg/dL (0.6-1.0) Estimated GFR (Cockcroft-Gault) 29.1 Glucose Level 140mg/dL (70-99) Calcium Level 8.0mg/dL (8.5-10.1) Phosphorus Level 2.9mg/dL (2.6-4.7) Magnesium Level 1.7mg/dL (1.8-2.4) Albumin 1.9g/dL (3.4-5.0) Micro Micro Microbiology 12/08/16 Blood Culture - Preliminary, Resulted NO GROWTH AFTER 3 DAYS 12/08/16 Urine Culture - Final, Complete 12/08/16 Urine Culture Result 1 (VICENTE) - Final, Complete Review of Systems Constitutional: yes: no symptom reported Physical Exam General Appearance: no apparent distress Skin: warm Respiratory: decreased breath sounds Heart: S1S2 Abdomen: soft, bowel sounds present Extremities: no edema Musculoskeletal: Osteoarthritis Assessment Assessment IMP REY BETTER WITH CR 4.4 TO 1.7 SHOCK COPD LEUCOCYTOSIS - BETTER PLAN OFF IVF'S WILL D/C TEMP HD CATHETER IN A DAY OR TWO WILL FOLLOW LISBET DAVIS MD Dec 12, 2016 11:43
[2016-12-12] MEDS ORDERED: FUROSEMIDE 40 MG/4 ML VIAL IVP ONE (12:45)
--- NOTE | 2016-12-12 13:10 | PDOC ---
[employer] 12/12/16 1310: CARDIO Progress Notes Date and Time Date of Service 12/12/16 Time of Evaluation 1300 Subjective Subjective: No Chest Pain, Other (mild SOA, breathing better overall) Vitals Vitals Vital Signs Date Time Temp Pulse Resp B/P Pulse Ox O2 Delivery O2 Flow Rate FiO2 12/12/16 11:35 97 Nasal Cannula 3.0 12/12/16 11:35 83 28 159/81 12/12/16 07:45 97.9 97.9 Weight Weight [ ] Input and Output Intake and Output Intake and Output 12/12/16 07:00 Intake Total 1216 ml Output Total 1235 ml Balance -19 ml Intake Oral 1010 ml Other 206 ml Output Urine Total 1235 ml Laboratory Labs Laboratory Tests Test 12/11/16 17:32 12/12/16 06:02 12/12/16 07:44 12/12/16 12:12 Glucose (Fingerstick) 138mg/dL (70-99) 127mg/dL (70-99) 121mg/dL (70-99) Sodium Level 140mmol/L (136-145) Potassium Level 3.6mmol/L (3.5-5.1) Chloride Level 102mmol/L (98-107) Carbon Dioxide Level 32mmol/L (21-32) Anion Gap 6 (6-14) Blood Urea Nitrogen 39mg/dL (7-20) Creatinine 1.7mg/dL (0.6-1.0) Estimated GFR (Cockcroft-Gault) 29.1 Glucose Level 140mg/dL (70-99) Calcium Level 8.0mg/dL (8.5-10.1) Phosphorus Level 2.9mg/dL (2.6-4.7) Magnesium Level 1.7mg/dL (1.8-2.4) Albumin 1.9g/dL (3.4-5.0) Microbiology Micro Microbiology 12/08/16 Blood Culture - Preliminary, Resulted NO GROWTH AFTER 3 DAYS 12/08/16 Urine Culture - Final, Complete 12/08/16 Urine Culture Result 1 (VICENTE) - Final, Complete Review of Systems Constitutional: yes: no symptom reported Physical Exam HEENT: Neck Supple W Full Motion Chest: Symmetric LUNGS: Other (bibasilar crackles ) Heart: S1S2, RRR, no thrills, no rubs, no gallops, no murmurs Abdomen: Soft N/T Extremities: No Calf Tenderness, Other (trace bilatral upper ext edema ) Neurology: alert, oriented, follow commands Assessment Assessment 1. Chronic diastolic heart failure; LVEF 60% 2. Acute on chronic respiratory failure with COPD. 3. Leukocytosis with sepsis 4. Hypotension; off pressor support 5. Candidiasis 6. REY with CKD 7. Hyperlipidemia 8. DM, II with diabetic neuropathy 9. UTI 10. Hypomagnesemia Recommendations BP consistently adequate- resume Coreg Hold TRACI with REY. Replace Mg, monitor lytes Monitor fluid status; Lasix as warranted Supportive care MAT RUEDA MD 12/12/16 1700: CARDIO Progress Notes Plan Plan Pt. seen and examined. AGree with above RETAIL DIRECTOR note. No acute events. HTN now Will start coreg. Supportive care. NEDRA WHITE APRN Dec 12, 2016 13:10 MAT RUEDA MD Dec 12, 2016 17:00
[2016-12-12] MEDS ORDERED: MAGNESIUM SULFATE 2GM 50 ML IV ONE (15:00)
[2016-12-12] MEDS: CARVEDILOL 6.25 MG TABLET PO SCH (17:18)
[2016-12-12] MEDS: CEFTRIAXONE SODIUM 1 GM in IV NORMAL SALINE 50ML 50 ML IV SCH (19:36)
[2016-12-12] MEDS: FLUCONAZOLE 200MG/100ML PREMIX 100 ML IV SCH (20:46)
[2016-12-12] MEDS: ATORVASTATIN CALCIUM 10 MG TABLET. PO SCH (20:46)
[2016-12-12] MEDS: MONTELUKAST SODIUM 10 MG TABLET. PO SCH (20:46)
[2016-12-12] MEDS ORDERED: ALPRAZOLAM 0.25 MG TABLET. ONE (21:41)
[2016-12-13] MEDS: HYDROCORTISONE SOD SUCC/PF 100 MG/2 ML VIAL. IV SCH ×3 (05:37→21:41)
[2016-12-13 06:44] LABS: BASO % 0 % (0-3); EOS % 0 % (0-3); HEMATOCRIT 24.6 % (36.0-47.0); HEMOGLOBIN 7.9 g/dL (12.0-15.5); LYMPH # 1.9 x10^3/uL (1.0-4.8); LYMPH % 18 % (24-48); MEAN CORPUSCULAR HEMOGLOBIN 29 pg (25-35); MEAN CORPUSCULAR HGB CONC 32 g/dL (31-37); MEAN CORPUSCULAR VOLUME 92 fL (79-100); MONO % 5 % (0-9); NEUT % 77 % (31-73); PLATELET COUNT 188 x10^3/uL (140-400); RED BLOOD COUNT 2.68 x10^6/uL (3.50-5.40); RED CELL DISTRIBUTION WIDTH 16.4 % (11.5-14.5); WHITE BLOOD COUNT 10.8 x10^3/uL (4.0-11.0)
[2016-12-13 07:00] VITALS: BP 142/72
[2016-12-13 07:09] LABS: CREATININE 1.6 mg/dL (0.6-1.0); GFR 31.2; MAGNESIUM 2.2 mg/dL (1.8-2.4); PHOSPHORUS 3.5 mg/dL (2.6-4.7)
[2016-12-13] MEDS: IPRATRPIUM/ALBUTEROL 0.5/2.5MG 3 ML NEBU. NEB SCH ×4 (07:12→19:32)
[2016-12-13] MEDS: BUDESONIDE 0.5 MG/2 ML NEBU. NEB SCH ×2 (07:12→19:32)
[2016-12-13] MEDS: INSULIN ASPART 300 UNITS/3 ML INSULN.PEN SQ SCH ×3 (08:00→17:00)
[2016-12-13] MEDS: ALLOPURINOL 100 MG TABLET. PO SCH (08:43)
[2016-12-13] MEDS: PANTOPRAZOLE 40 MG TABLET. PO SCH (08:43)
[2016-12-13] MEDS: GUAIFENESIN ER 600 MG TABLET.ER PO SCH ×2 (08:43→21:39)
[2016-12-13] MEDS: CARVEDILOL 6.25 MG TABLET PO SCH ×2 (08:44→17:28)
[2016-12-13] MEDS: FERROUS SULFATE 325 MG TABLET PO SCH (08:44)
[2016-12-13] MEDS: ASPIRIN ENTERIC COATED 81 MG TABLET.DR. PO SCH (08:44)
[2016-12-13] MEDS: NYSTATIN TOPICAL POWDER 15GM BOTTLE. TP SCH ×4 (08:53→21:42)
[2016-12-13] MEDS: HEPARIN PF for SUB-Q USE 5,000 UNIT/0.5 ML VIAL. SQ SCH ×2 (08:53→21:53)
--- NOTE | 2016-12-13 09:00 | PDOC ---
PULMONARY PROGRESS NOTES Subjective pt not more soa Vitals Vital Signs Date Time Temp Pulse Resp B/P Pulse Ox O2 Delivery O2 Flow Rate FiO2 12/13/16 08:44 74 142/72 12/13/16 07:20 94 Nasal Cannula 2.0 12/13/16 07:00 98.1 16 98.1 Comments ros as mentioned as above other sys otherwise neg ROS: No Nausea, No Chest Pain, No Abdominal Pain, No Increase Cough General: Alert, Oriented X4, No acute distress HEENT: Other (nc at perrl, throat nose clear) Lungs: Clear Cardiovascular: S1, S2 Abdomen: Soft, Non-tender, Other (no mass) Neuro Exam: Alert, Oriented Extremities: No Edema, Other Skin: Warm, Rash Labs Laboratory Tests Test 12/11/16 12:36 12/11/16 17:32 12/12/16 06:02 12/12/16 07:44 Glucose (Fingerstick) 149mg/dL (70-99) 138mg/dL (70-99) 127mg/dL (70-99) Sodium Level 140mmol/L (136-145) Potassium Level 3.6mmol/L (3.5-5.1) Chloride Level 102mmol/L (98-107) Carbon Dioxide Level 32mmol/L (21-32) Anion Gap 6 (6-14) Blood Urea Nitrogen 39mg/dL (7-20) Creatinine 1.7mg/dL (0.6-1.0) Estimated GFR (Cockcroft-Gault) 29.1 Glucose Level 140mg/dL (70-99) Calcium Level 8.0mg/dL (8.5-10.1) Phosphorus Level 2.9mg/dL (2.6-4.7) Magnesium Level 1.7mg/dL (1.8-2.4) Albumin 1.9g/dL (3.4-5.0) Test 12/12/16 12:12 12/12/16 15:48 12/12/16 20:52 12/13/16 06:10 Glucose (Fingerstick) 121mg/dL (70-99) 149mg/dL (70-99) 156mg/dL (70-99) White Blood Count 10.8x10^3/uL (4.0-11.0) Red Blood Count 2.68x10^6/uL (3.50-5.40) Hemoglobin 7.9g/dL (12.0-15.5) Hematocrit 24.6% (36.0-47.0) Mean Corpuscular Volume 92fL (79-100) Mean Corpuscular Hemoglobin 29pg (25-35) Mean Corpuscular Hemoglobin Concent 32g/dL (31-37) Red Cell Distribution Width 16.4% (11.5-14.5) Platelet Count 188x10^3/uL (140-400) Neutrophils (%) (Auto) 77% (31-73) Lymphocytes (%) (Auto) 18% (24-48) Monocytes (%) (Auto) 5% (0-9) Eosinophils (%) (Auto) 0% (0-3) Basophils (%) (Auto) 0% (0-3) Neutrophils # (Auto) 8.3x10^3uL (1.8-7.7) Lymphocytes # (Auto) 1.9x10^3/uL (1.0-4.8) Monocytes # (Auto) 0.5x10^3/uL (0.0-1.1) Eosinophils # (Auto) 0.0x10^3/uL (0.0-0.7) Basophils # (Auto) 0.0x10^3/uL (0.0-0.2) Sodium Level 141mmol/L (136-145) Potassium Level 4.0mmol/L (3.5-5.1) Chloride Level 104mmol/L (98-107) Carbon Dioxide Level 31mmol/L (21-32) Anion Gap 6 (6-14) Blood Urea Nitrogen 43mg/dL (7-20) Creatinine 1.6mg/dL (0.6-1.0) Estimated GFR (Cockcroft-Gault) 31.2 Glucose Level 122mg/dL (70-99) Calcium Level 8.0mg/dL (8.5-10.1) Phosphorus Level 3.5mg/dL (2.6-4.7) Magnesium Level 2.2mg/dL (1.8-2.4) Albumin 2.0g/dL (3.4-5.0) Test 12/13/16 07:33 Glucose (Fingerstick) 124mg/dL (70-99) Laboratory Tests Test 12/12/16 12:12 12/12/16 15:48 12/12/16 20:52 12/13/16 06:10 Glucose (Fingerstick) 121mg/dL (70-99) 149mg/dL (70-99) 156mg/dL (70-99) White Blood Count 10.8x10^3/uL (4.0-11.0) Red Blood Count 2.68x10^6/uL (3.50-5.40) Hemoglobin 7.9g/dL (12.0-15.5) Hematocrit 24.6% (36.0-47.0) Mean Corpuscular Volume 92fL (79-100) Mean Corpuscular Hemoglobin 29pg (25-35) Mean Corpuscular Hemoglobin Concent 32g/dL (31-37) Red Cell Distribution Width 16.4% (11.5-14.5) Platelet Count 188x10^3/uL (140-400) Neutrophils (%) (Auto) 77% (31-73) Lymphocytes (%) (Auto) 18% (24-48) Monocytes (%) (Auto) 5% (0-9) Eosinophils (%) (Auto) 0% (0-3) Basophils (%) (Auto) 0% (0-3) Neutrophils # (Auto) 8.3x10^3uL (1.8-7.7) Lymphocytes # (Auto) 1.9x10^3/uL (1.0-4.8) Monocytes # (Auto) 0.5x10^3/uL (0.0-1.1) Eosinophils # (Auto) 0.0x10^3/uL (0.0-0.7) Basophils # (Auto) 0.0x10^3/uL (0.0-0.2) Sodium Level 141mmol/L (136-145) Potassium Level 4.0mmol/L (3.5-5.1) Chloride Level 104mmol/L (98-107) Carbon Dioxide Level 31mmol/L (21-32) Anion Gap 6 (6-14) Blood Urea Nitrogen 43mg/dL (7-20) Creatinine 1.6mg/dL (0.6-1.0) Estimated GFR (Cockcroft-Gault) 31.2 Glucose Level 122mg/dL (70-99) Calcium Level 8.0mg/dL (8.5-10.1) Phosphorus Level 3.5mg/dL (2.6-4.7) Magnesium Level 2.2mg/dL (1.8-2.4) Albumin 2.0g/dL (3.4-5.0) Test 12/13/16 07:33 Glucose (Fingerstick) 124mg/dL (70-99) Medications Active Scripts Medications Dose Route/Sig Days Date Category Bactrim Ds Tablet (Sulfamethoxazole/Trimethoprim) 1 Each Tablet 1 Tab PO BID 12/07/16 Rx Nystatin 15 Gm Powder 15 Gm TP BID 12/07/16 Rx Tylenol (Acetaminophen) 325 Mg Tablet 650 Mg PO TID PRN PRN 04/11/16 Reported Metformin Hcl 500 Mg Tablet 1 Tab PO TID 04/11/16 Reported Aspir 81 (Aspirin) 81 Mg Tablet.dr 1 Tab PO DAILY 04/11/16 Reported Lisinopril 10 Mg Tablet 30 Mg PO DAILY 12/11/15 Rx Allopurinol 100 Mg Tablet 1 Tab PO DAILY 11/16/15 Reported Iron Supplement (Ferrous Sulfate) 325 Mg Tablet 1 Tab PO DAILY 11/10/15 Reported Advair 250-50 Diskus (Fluticasone/Salmeterol) 1 Each Disk.w.dev 1 Puff IH BID 05/06/15 Reported Duoneb 0.5-3(2.5) Mg/3 Ml (Albuterol/Ipratropium) 3 Ml Ampul.neb 3 Ml IH Q4HRS PRN 05/06/15 Reported Pravastatin Sodium 10 Mg Tablet 1 Tab PO DAILY 09/16/14 Reported Carvedilol 6.25 Mg Tablet 1 Tab PO BID 09/16/14 Reported Furosemide 40 Mg Tablet 1 Tab PO DAILY 09/16/14 Reported Comments cxr reviewed, Increase in interstitial prominence relative to the previous exam suggesting interstitial edema or interstitial pneumonitis Impression . 1. [id number] respiratory failure, multifactorial in etiology. 2. Abnormal chest x-ray. 3. Shock, septic versus hypovolemic. 4. Excessive yeast infection. 5. Acute kidney injury on chronic renal insufficiency. 6. Leukocytosis. 7. Anemia. 8. Congestive heart failure. 9. Chronic obstructive pulmonary disease. 10. Urinary tract infection. 11. allergic rhinitis Plan . resp status is compensated 1. Titrate FiO2 to keep O2 saturation 92%. 2. Bronchodilator. 3. Inhaled corticosteroid. 4. taper Solu-Cortef. The patient has had on prednisone 5. Continue antibiotics per ID 6. Follow up cultures. 7. s/p Fluid resuscitation. 8. Nephrology and ID recommendations 9. Heparin for deep venous thrombosis prophylaxis. 10. protonix for stress ulcer prophylaxis. JESSE STRANGE MD Dec 13, 2016 09:00
--- NOTE | 2016-12-13 09:58 | PDOC ---
Infectious Disease Note Subjective Subjective Comfortable, up in chair ROS ROS GEN: Denies fevers, chills, sweats HEENT: Denies blurred vision, sore throat CV: Denies chest pain RESP: Denies shortness of air, cough GI: Denies n/v/d NEURO: Denies confusion, dizziness MSK: Denies weakness, joint pain/swelling Vital Sign Vital Signs Vital Signs Date Time Temp Pulse Resp B/P Pulse Ox O2 Delivery O2 Flow Rate FiO2 12/13/16 08:45 Nasal Cannula 2.0 12/13/16 08:44 74 142/72 12/13/16 07:20 94 12/13/16 07:00 98.1 16 98.1 Physical Exam PHYSICAL EXAM GENERAL: NAD, Alert HEENT: PERRL, OC/OP NECK: Supple, no JVD, no LN LUNGS: Clear HEART: S1S2, no gallop, no murmur ABD: Soft, NT, no organomegaly, no rebound EXT: No edema, no cyanosis SOLUTION STRATEGIST: Alert, oriented x 3, no focal neurologic deficit SKIN: No rash IV: ok Labs Lab Laboratory Tests Test 12/12/16 12:12 12/12/16 15:48 12/12/16 20:52 12/13/16 06:10 Glucose (Fingerstick) 121mg/dL (70-99) 149mg/dL (70-99) 156mg/dL (70-99) White Blood Count 10.8x10^3/uL (4.0-11.0) Red Blood Count 2.68x10^6/uL (3.50-5.40) Hemoglobin 7.9g/dL (12.0-15.5) Hematocrit 24.6% (36.0-47.0) Mean Corpuscular Volume 92fL (79-100) Mean Corpuscular Hemoglobin 29pg (25-35) Mean Corpuscular Hemoglobin Concent 32g/dL (31-37) Red Cell Distribution Width 16.4% (11.5-14.5) Platelet Count 188x10^3/uL (140-400) Neutrophils (%) (Auto) 77% (31-73) Lymphocytes (%) (Auto) 18% (24-48) Monocytes (%) (Auto) 5% (0-9) Eosinophils (%) (Auto) 0% (0-3) Basophils (%) (Auto) 0% (0-3) Neutrophils # (Auto) 8.3x10^3uL (1.8-7.7) Lymphocytes # (Auto) 1.9x10^3/uL (1.0-4.8) Monocytes # (Auto) 0.5x10^3/uL (0.0-1.1) Eosinophils # (Auto) 0.0x10^3/uL (0.0-0.7) Basophils # (Auto) 0.0x10^3/uL (0.0-0.2) Sodium Level 141mmol/L (136-145) Potassium Level 4.0mmol/L (3.5-5.1) Chloride Level 104mmol/L (98-107) Carbon Dioxide Level 31mmol/L (21-32) Anion Gap 6 (6-14) Blood Urea Nitrogen 43mg/dL (7-20) Creatinine 1.6mg/dL (0.6-1.0) Estimated GFR (Cockcroft-Gault) 31.2 Glucose Level 122mg/dL (70-99) Calcium Level 8.0mg/dL (8.5-10.1) Phosphorus Level 3.5mg/dL (2.6-4.7) Magnesium Level 2.2mg/dL (1.8-2.4) Albumin 2.0g/dL (3.4-5.0) Test 12/13/16 07:33 Glucose (Fingerstick) 124mg/dL (70-99) Objective Assessment Hypotension likely sec to vol depletion Extensive yeast infection in skin folds REY on CRI Debility Weakness CHF COPD UTI Plan Plan of Care d/c rocephine cont diflucan cultures NGTD Supportive care OPAL NORTON MD Dec 13, 2016 09:58
--- NOTE | 2016-12-13 10:46 | PDOC ---
PROGRESS NOTES Chief Complaint Chief Complaint Sepsis ASSESSMENT AND PLAN: 1. Sepsis: resolved. blood cult neg 2. Candidiasis: in intertriginous areas, severe, prob worsened by frequent steroid use for COPD. on nystatin 3. COPD: no acute issues. nebs. suppl O2 4. REY on CKD (baseline creat ~ 1.5): 2/2 vasomotor etiology. recovered to about baseline. monitor 5. HTN: well controlled on home regimen 6. Gout: no acute issues. on allopurinol 7. Obesity with mild to mod PCM Vitals Vitals Vital Signs Date Time Temp Pulse Resp B/P Pulse Ox O2 Delivery O2 Flow Rate FiO2 12/13/16 08:45 Nasal Cannula 2.0 12/13/16 08:44 74 142/72 12/13/16 07:20 94 12/13/16 07:00 98.1 16 98.1 Physical Exam General: Alert, Oriented X3, Cooperative, No acute distress Heart: Regular rate, Gallops Lungs: Clear Abdomen: Normal bowel sounds, Soft, No tenderness Extremities: No clubbing, No cyanosis, No tenderness/swelling Skin: Other Labs LABS Laboratory Tests Test 12/12/16 12:12 12/12/16 15:48 12/12/16 20:52 12/13/16 06:10 Glucose (Fingerstick) 121mg/dL (70-99) 149mg/dL (70-99) 156mg/dL (70-99) White Blood Count 10.8x10^3/uL (4.0-11.0) Red Blood Count 2.68x10^6/uL (3.50-5.40) Hemoglobin 7.9g/dL (12.0-15.5) Hematocrit 24.6% (36.0-47.0) Mean Corpuscular Volume 92fL (79-100) Mean Corpuscular Hemoglobin 29pg (25-35) Mean Corpuscular Hemoglobin Concent 32g/dL (31-37) Red Cell Distribution Width 16.4% (11.5-14.5) Platelet Count 188x10^3/uL (140-400) Neutrophils (%) (Auto) 77% (31-73) Lymphocytes (%) (Auto) 18% (24-48) Monocytes (%) (Auto) 5% (0-9) Eosinophils (%) (Auto) 0% (0-3) Basophils (%) (Auto) 0% (0-3) Neutrophils # (Auto) 8.3x10^3uL (1.8-7.7) Lymphocytes # (Auto) 1.9x10^3/uL (1.0-4.8) Monocytes # (Auto) 0.5x10^3/uL (0.0-1.1) Eosinophils # (Auto) 0.0x10^3/uL (0.0-0.7) Basophils # (Auto) 0.0x10^3/uL (0.0-0.2) Sodium Level 141mmol/L (136-145) Potassium Level 4.0mmol/L (3.5-5.1) Chloride Level 104mmol/L (98-107) Carbon Dioxide Level 31mmol/L (21-32) Anion Gap 6 (6-14) Blood Urea Nitrogen 43mg/dL (7-20) Creatinine 1.6mg/dL (0.6-1.0) Estimated GFR (Cockcroft-Gault) 31.2 Glucose Level 122mg/dL (70-99) Calcium Level 8.0mg/dL (8.5-10.1) Phosphorus Level 3.5mg/dL (2.6-4.7) Magnesium Level 2.2mg/dL (1.8-2.4) Albumin 2.0g/dL (3.4-5.0) Test 12/13/16 07:33 Glucose (Fingerstick) 124mg/dL (70-99) Review of Systems Review of Systems feels better. almost ready to go home COLLETTE FALL MD Dec 13, 2016 10:46
[2016-12-13 10:59] VITALS: BP 146/71
--- NOTE | 2016-12-13 11:30 | PDOC ---
Renal-Progress Notes Subjective Notes Notes SOME SOB History of Present Illness Hx of present illness BETTER Vitals Vitals Vital Signs Date Time Temp Pulse Resp B/P Pulse Ox O2 Delivery O2 Flow Rate FiO2 12/13/16 10:59 97.9 69 16 146/71 91 Room Air 97.9 12/13/16 08:45 2.0 Weight Weight [ ] I.O. Intake and Output Intake and Output 12/13/16 07:00 Intake Total 620 ml Output Total 1950 ml Balance -1330 ml Intake Oral 620 ml Output Urine Total 1950 ml Labs Labs Laboratory Tests Test 12/12/16 12:12 12/12/16 15:48 12/12/16 20:52 12/13/16 06:10 Glucose (Fingerstick) 121mg/dL (70-99) 149mg/dL (70-99) 156mg/dL (70-99) White Blood Count 10.8x10^3/uL (4.0-11.0) Red Blood Count 2.68x10^6/uL (3.50-5.40) Hemoglobin 7.9g/dL (12.0-15.5) Hematocrit 24.6% (36.0-47.0) Mean Corpuscular Volume 92fL (79-100) Mean Corpuscular Hemoglobin 29pg (25-35) Mean Corpuscular Hemoglobin Concent 32g/dL (31-37) Red Cell Distribution Width 16.4% (11.5-14.5) Platelet Count 188x10^3/uL (140-400) Neutrophils (%) (Auto) 77% (31-73) Lymphocytes (%) (Auto) 18% (24-48) Monocytes (%) (Auto) 5% (0-9) Eosinophils (%) (Auto) 0% (0-3) Basophils (%) (Auto) 0% (0-3) Neutrophils # (Auto) 8.3x10^3uL (1.8-7.7) Lymphocytes # (Auto) 1.9x10^3/uL (1.0-4.8) Monocytes # (Auto) 0.5x10^3/uL (0.0-1.1) Eosinophils # (Auto) 0.0x10^3/uL (0.0-0.7) Basophils # (Auto) 0.0x10^3/uL (0.0-0.2) Sodium Level 141mmol/L (136-145) Potassium Level 4.0mmol/L (3.5-5.1) Chloride Level 104mmol/L (98-107) Carbon Dioxide Level 31mmol/L (21-32) Anion Gap 6 (6-14) Blood Urea Nitrogen 43mg/dL (7-20) Creatinine 1.6mg/dL (0.6-1.0) Estimated GFR (Cockcroft-Gault) 31.2 Glucose Level 122mg/dL (70-99) Calcium Level 8.0mg/dL (8.5-10.1) Phosphorus Level 3.5mg/dL (2.6-4.7) Magnesium Level 2.2mg/dL (1.8-2.4) Albumin 2.0g/dL (3.4-5.0) Test 12/13/16 07:33 12/13/16 11:23 Glucose (Fingerstick) 124mg/dL (70-99) 138mg/dL (70-99) Micro Micro Microbiology 12/08/16 Blood Culture - Preliminary, Resulted NO GROWTH AFTER 4 DAYS 12/08/16 Urine Culture - Final, Complete 12/08/16 Urine Culture Result 1 (VICENTE) - Final, Complete Review of Systems Constitutional: yes: no symptom reported Physical Exam General Appearance: no apparent distress Skin: warm Respiratory: decreased breath sounds Heart: S1S2 Abdomen: soft, bowel sounds present Extremities: no edema Neurology: alert, oriented, follow commands Musculoskeletal: Osteoarthritis Assessment Assessment IMP REY BETTER WITH CR 4.4 TO 1.7 SHOCK COPD LEUCOCYTOSIS - BETTER HYPERVOLEMIA PLAN OFF IVF'S START ORAL LASIX WILL D/C TEMP HD CATHETER WILL FOLLOW LISBET DAVIS MD Dec 13, 2016 11:30
[2016-12-13 12:00] VITALS: BP 145/73
[2016-12-13] MEDS ORDERED: FUROSEMIDE 40 MG TABLET PO SCH (12:00)
[2016-12-13] MEDS ORDERED: ALPRAZOLAM 0.25 MG TABLET. PO PRN (13:45)
[2016-12-13 16:00] VITALS: BP 138/70
[2016-12-13] MEDS: ATORVASTATIN CALCIUM 10 MG TABLET. PO SCH (21:38)
[2016-12-13] MEDS: MONTELUKAST SODIUM 10 MG TABLET. PO SCH (21:39)
[2016-12-13 22:42] VITALS: BP 137/55
[2016-12-14 04:48] LABS: BASO % 0 % (0-3); EOS % 0 % (0-3); HEMATOCRIT 24.5 % (36.0-47.0); HEMOGLOBIN 7.9 g/dL (12.0-15.5); LYMPH # 1.5 x10^3/uL (1.0-4.8); LYMPH % 16 % (24-48); MEAN CORPUSCULAR HEMOGLOBIN 30 pg (25-35); MEAN CORPUSCULAR HGB CONC 32 g/dL (31-37); MEAN CORPUSCULAR VOLUME 93 fL (79-100); MONO % 4 % (0-9); NEUT % 80 % (31-73); PLATELET COUNT 173 x10^3/uL (140-400); RED BLOOD COUNT 2.64 x10^6/uL (3.50-5.40); RED CELL DISTRIBUTION WIDTH 16.4 % (11.5-14.5); WHITE BLOOD COUNT 9.6 x10^3/uL (4.0-11.0)
[2016-12-14 04:58] LABS: ALBUMIN 1.9 g/dL (3.4-5.0); CALCIUM 7.9 mg/dL (8.5-10.1); CREATININE 1.6 mg/dL (0.6-1.0); GFR 31.2; PHOSPHORUS 3.6 mg/dL (2.6-4.7); POTASSIUM 4.2 mmol/L (3.5-5.1)
[2016-12-14] MEDS: HYDROCORTISONE SOD SUCC/PF 100 MG/2 ML VIAL. IV SCH ×3 (06:09→21:13)
[2016-12-14 07:00] VITALS: BP 160/74
[2016-12-14] MEDS: IPRATRPIUM/ALBUTEROL 0.5/2.5MG 3 ML NEBU. NEB SCH ×4 (07:57→20:12)
[2016-12-14] MEDS: BUDESONIDE 0.5 MG/2 ML NEBU. NEB SCH ×2 (07:58→20:12)
[2016-12-14] MEDS: INSULIN ASPART 300 UNITS/3 ML INSULN.PEN SQ SCH ×3 (08:00→17:00)
--- NOTE | 2016-12-14 08:21 | PDOC ---
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 Temp HDC no longer needed. Post-Procedure Diagnosis Post-Procedure Diagnosis Same Procedure Performed Procedure Performed Bedside removal rt IJ temp HDC Type of Anesthesia Type of Anesthesia None Estimated Blood Loss EBL: None Specimens Specimans 14F 20cm Schon temp HDC removed and discarded Condition of Patient Condition of Patient Stable. No apparent complication. SABAS SAENZ MD Dec 14, 2016 08:21
--- NOTE | 2016-12-14 08:48 | PDOC ---
PULMONARY PROGRESS NOTES Subjective PT WITH COUGH AND WHEEZE Vitals Vital Signs Date Time Temp Pulse Resp B/P Pulse Ox O2 Delivery O2 Flow Rate FiO2 12/14/16 08:05 98 Nasal Cannula 2.0 12/14/16 07:00 98.1 73 14 160/74 98.1 Comments ros as mentioned as above other sys otherwise neg ROS: No Nausea, No Chest Pain, No Abdominal Pain General: Alert, No acute distress HEENT: Other (nc at perrl, throat nose clear) Lungs: Clear, Wheezing Cardiovascular: S1, S2 Abdomen: Soft, Non-tender Neuro Exam: Alert, Oriented Extremities: No Edema, Other Skin: Warm, Rash Labs Laboratory Tests Test 12/12/16 12:12 12/12/16 15:48 12/12/16 20:52 12/13/16 06:10 Glucose (Fingerstick) 121mg/dL (70-99) 149mg/dL (70-99) 156mg/dL (70-99) White Blood Count 10.8x10^3/uL (4.0-11.0) Red Blood Count 2.68x10^6/uL (3.50-5.40) Hemoglobin 7.9g/dL (12.0-15.5) Hematocrit 24.6% (36.0-47.0) Mean Corpuscular Volume 92fL (79-100) Mean Corpuscular Hemoglobin 29pg (25-35) Mean Corpuscular Hemoglobin Concent 32g/dL (31-37) Red Cell Distribution Width 16.4% (11.5-14.5) Platelet Count 188x10^3/uL (140-400) Neutrophils (%) (Auto) 77% (31-73) Lymphocytes (%) (Auto) 18% (24-48) Monocytes (%) (Auto) 5% (0-9) Eosinophils (%) (Auto) 0% (0-3) Basophils (%) (Auto) 0% (0-3) Neutrophils # (Auto) 8.3x10^3uL (1.8-7.7) Lymphocytes # (Auto) 1.9x10^3/uL (1.0-4.8) Monocytes # (Auto) 0.5x10^3/uL (0.0-1.1) Eosinophils # (Auto) 0.0x10^3/uL (0.0-0.7) Basophils # (Auto) 0.0x10^3/uL (0.0-0.2) Sodium Level 141mmol/L (136-145) Potassium Level 4.0mmol/L (3.5-5.1) Chloride Level 104mmol/L (98-107) Carbon Dioxide Level 31mmol/L (21-32) Anion Gap 6 (6-14) Blood Urea Nitrogen 43mg/dL (7-20) Creatinine 1.6mg/dL (0.6-1.0) Estimated GFR (Cockcroft-Gault) 31.2 Glucose Level 122mg/dL (70-99) Calcium Level 8.0mg/dL (8.5-10.1) Phosphorus Level 3.5mg/dL (2.6-4.7) Magnesium Level 2.2mg/dL (1.8-2.4) Albumin 2.0g/dL (3.4-5.0) Test 12/13/16 07:33 12/13/16 11:23 12/13/16 16:37 12/14/16 04:12 Glucose (Fingerstick) 124mg/dL (70-99) 138mg/dL (70-99) 133mg/dL (70-99) White Blood Count 9.6x10^3/uL (4.0-11.0) Red Blood Count 2.64x10^6/uL (3.50-5.40) Hemoglobin 7.9g/dL (12.0-15.5) Hematocrit 24.5% (36.0-47.0) Mean Corpuscular Volume 93fL (79-100) Mean Corpuscular Hemoglobin 30pg (25-35) Mean Corpuscular Hemoglobin Concent 32g/dL (31-37) Red Cell Distribution Width 16.4% (11.5-14.5) Platelet Count 173x10^3/uL (140-400) Neutrophils (%) (Auto) 80% (31-73) Lymphocytes (%) (Auto) 16% (24-48) Monocytes (%) (Auto) 4% (0-9) Eosinophils (%) (Auto) 0% (0-3) Basophils (%) (Auto) 0% (0-3) Neutrophils # (Auto) 7.7x10^3uL (1.8-7.7) Lymphocytes # (Auto) 1.5x10^3/uL (1.0-4.8) Monocytes # (Auto) 0.4x10^3/uL (0.0-1.1) Eosinophils # (Auto) 0.0x10^3/uL (0.0-0.7) Basophils # (Auto) 0.0x10^3/uL (0.0-0.2) Sodium Level 144mmol/L (136-145) Potassium Level 4.2mmol/L (3.5-5.1) Chloride Level 106mmol/L (98-107) Carbon Dioxide Level 34mmol/L (21-32) Anion Gap 4 (6-14) Blood Urea Nitrogen 43mg/dL (7-20) Creatinine 1.6mg/dL (0.6-1.0) Estimated GFR (Cockcroft-Gault) 31.2 Glucose Level 132mg/dL (70-99) Calcium Level 7.9mg/dL (8.5-10.1) Phosphorus Level 3.6mg/dL (2.6-4.7) Magnesium Level 2.2mg/dL (1.8-2.4) Albumin 1.9g/dL (3.4-5.0) Test 12/14/16 07:16 Glucose (Fingerstick) 110mg/dL (70-99) Laboratory Tests Test 12/13/16 11:23 12/13/16 16:37 12/14/16 04:12 12/14/16 07:16 Glucose (Fingerstick) 138mg/dL (70-99) 133mg/dL (70-99) 110mg/dL (70-99) White Blood Count 9.6x10^3/uL (4.0-11.0) Red Blood Count 2.64x10^6/uL (3.50-5.40) Hemoglobin 7.9g/dL (12.0-15.5) Hematocrit 24.5% (36.0-47.0) Mean Corpuscular Volume 93fL (79-100) Mean Corpuscular Hemoglobin 30pg (25-35) Mean Corpuscular Hemoglobin Concent 32g/dL (31-37) Red Cell Distribution Width 16.4% (11.5-14.5) Platelet Count 173x10^3/uL (140-400) Neutrophils (%) (Auto) 80% (31-73) Lymphocytes (%) (Auto) 16% (24-48) Monocytes (%) (Auto) 4% (0-9) Eosinophils (%) (Auto) 0% (0-3) Basophils (%) (Auto) 0% (0-3) Neutrophils # (Auto) 7.7x10^3uL (1.8-7.7) Lymphocytes # (Auto) 1.5x10^3/uL (1.0-4.8) Monocytes # (Auto) 0.4x10^3/uL (0.0-1.1) Eosinophils # (Auto) 0.0x10^3/uL (0.0-0.7) Basophils # (Auto) 0.0x10^3/uL (0.0-0.2) Sodium Level 144mmol/L (136-145) Potassium Level 4.2mmol/L (3.5-5.1) Chloride Level 106mmol/L (98-107) Carbon Dioxide Level 34mmol/L (21-32) Anion Gap 4 (6-14) Blood Urea Nitrogen 43mg/dL (7-20) Creatinine 1.6mg/dL (0.6-1.0) Estimated GFR (Cockcroft-Gault) 31.2 Glucose Level 132mg/dL (70-99) Calcium Level 7.9mg/dL (8.5-10.1) Phosphorus Level 3.6mg/dL (2.6-4.7) Magnesium Level 2.2mg/dL (1.8-2.4) Albumin 1.9g/dL (3.4-5.0) Medications Active Scripts Medications Dose Route/Sig Days Date Category Bactrim Ds Tablet (Sulfamethoxazole/Trimethoprim) 1 Each Tablet 1 Tab PO BID 12/07/16 Rx Nystatin 15 Gm Powder 15 Gm TP BID 12/07/16 Rx Tylenol (Acetaminophen) 325 Mg Tablet 650 Mg PO TID PRN PRN 04/11/16 Reported Metformin Hcl 500 Mg Tablet 1 Tab PO TID 04/11/16 Reported Aspir 81 (Aspirin) 81 Mg Tablet.dr 1 Tab PO DAILY 04/11/16 Reported Lisinopril 10 Mg Tablet 30 Mg PO DAILY 12/11/15 Rx Allopurinol 100 Mg Tablet 1 Tab PO DAILY 11/16/15 Reported Iron Supplement (Ferrous Sulfate) 325 Mg Tablet 1 Tab PO DAILY 11/10/15 Reported Advair 250-50 Diskus (Fluticasone/Salmeterol) 1 Each Disk.w.dev 1 Puff IH BID 05/06/15 Reported Duoneb 0.5-3(2.5) Mg/3 Ml (Albuterol/Ipratropium) 3 Ml Ampul.neb 3 Ml IH Q4HRS PRN 05/06/15 Reported Pravastatin Sodium 10 Mg Tablet 1 Tab PO DAILY 09/16/14 Reported Carvedilol 6.25 Mg Tablet 1 Tab PO BID 09/16/14 Reported Furosemide 40 Mg Tablet 1 Tab PO DAILY 09/16/14 Reported Comments cxr reviewed, Increase in interstitial prominence relative to the previous exam suggesting interstitial edema or interstitial pneumonitis Impression . 1. [id number] respiratory failure, multifactorial in etiology. 2. Abnormal chest x-ray. 3. Shock, septic versus hypovolemic. 4. Excessive yeast infection. 5. Acute kidney injury on chronic renal insufficiency. 6. Leukocytosis. 7. Anemia. 8. Congestive heart failure. 9. Chronic obstructive pulmonary disease. 10. Urinary tract infection. 11. allergic rhinitis 12. Possible acute bronchitis Plan . d/w Wtih Dr Uriostegui, lasix will add short course of pred 1. Titrate FiO2 to keep O2 saturation 92%. 2. Bronchodilator. 3. Inhaled corticosteroid. 4. taper Solu-Cortef. The patient has had on prednisone 5. Continue antibiotics per ID 6. Follow up cultures. 7. s/p Fluid resuscitation. 8. Nephrology and ID recommendations 9. Heparin for deep venous thrombosis prophylaxis. 10. protonix for stress ulcer prophylaxis. JESSE STRANGE MD Dec 14, 2016 08:47
[2016-12-14] MEDS: GUAIFENESIN ER 600 MG TABLET.ER PO SCH ×2 (08:57→21:12)
[2016-12-14] MEDS: ASPIRIN ENTERIC COATED 81 MG TABLET.DR. PO SCH (08:57)
[2016-12-14] MEDS: PANTOPRAZOLE 40 MG TABLET. PO SCH (08:57)
[2016-12-14] MEDS: FLUCONAZOLE 100 MG TABLET. PO SCH (08:57)
[2016-12-14] MEDS: FERROUS SULFATE 325 MG TABLET PO SCH (08:57)
[2016-12-14] MEDS: ALLOPURINOL 100 MG TABLET. PO SCH (08:57)
[2016-12-14] MEDS: NYSTATIN TOPICAL POWDER 15GM BOTTLE. TP SCH ×4 (08:58→21:13)
[2016-12-14] MEDS: CARVEDILOL 6.25 MG TABLET PO SCH ×2 (08:58→18:41)
--- NOTE | 2016-12-14 09:58 | PDOC ---
Infectious Disease Note Subjective Subjective Comfortable, up in chair ROS ROS GEN: Denies fevers, chills, sweats HEENT: Denies blurred vision, sore throat CV: Denies chest pain RESP: Denies shortness of air, cough GI: Denies n/v/d NEURO: Denies confusion, dizziness MSK: Denies weakness, joint pain/swelling Vital Sign Vital Signs Vital Signs Date Time Temp Pulse Resp B/P Pulse Ox O2 Delivery O2 Flow Rate FiO2 12/14/16 08:58 73 160/74 12/14/16 08:05 98 Nasal Cannula 2.0 12/14/16 07:00 98.1 14 98.1 Physical Exam PHYSICAL EXAM GENERAL: NAD, Alert HEENT: PERRL, OC/OP NECK: Supple, no JVD, no LN LUNGS: Clear HEART: S1S2, no gallop, no murmur ABD: Soft, NT, no organomegaly, no rebound EXT: No edema, no cyanosis PLUMBERS AND TOP HELPERS: Alert, oriented x 3, no focal neurologic deficit SKIN: No rash IV: ok Labs Lab Laboratory Tests Test 12/13/16 11:23 12/13/16 16:37 12/14/16 04:12 12/14/16 07:16 Glucose (Fingerstick) 138mg/dL (70-99) 133mg/dL (70-99) 110mg/dL (70-99) White Blood Count 9.6x10^3/uL (4.0-11.0) Red Blood Count 2.64x10^6/uL (3.50-5.40) Hemoglobin 7.9g/dL (12.0-15.5) Hematocrit 24.5% (36.0-47.0) Mean Corpuscular Volume 93fL (79-100) Mean Corpuscular Hemoglobin 30pg (25-35) Mean Corpuscular Hemoglobin Concent 32g/dL (31-37) Red Cell Distribution Width 16.4% (11.5-14.5) Platelet Count 173x10^3/uL (140-400) Neutrophils (%) (Auto) 80% (31-73) Lymphocytes (%) (Auto) 16% (24-48) Monocytes (%) (Auto) 4% (0-9) Eosinophils (%) (Auto) 0% (0-3) Basophils (%) (Auto) 0% (0-3) Neutrophils # (Auto) 7.7x10^3uL (1.8-7.7) Lymphocytes # (Auto) 1.5x10^3/uL (1.0-4.8) Monocytes # (Auto) 0.4x10^3/uL (0.0-1.1) Eosinophils # (Auto) 0.0x10^3/uL (0.0-0.7) Basophils # (Auto) 0.0x10^3/uL (0.0-0.2) Sodium Level 144mmol/L (136-145) Potassium Level 4.2mmol/L (3.5-5.1) Chloride Level 106mmol/L (98-107) Carbon Dioxide Level 34mmol/L (21-32) Anion Gap 4 (6-14) Blood Urea Nitrogen 43mg/dL (7-20) Creatinine 1.6mg/dL (0.6-1.0) Estimated GFR (Cockcroft-Gault) 31.2 Glucose Level 132mg/dL (70-99) Calcium Level 7.9mg/dL (8.5-10.1) Phosphorus Level 3.6mg/dL (2.6-4.7) Magnesium Level 2.2mg/dL (1.8-2.4) Albumin 1.9g/dL (3.4-5.0) Objective Assessment Hypotension likely sec to vol depletion Extensive yeast infection in skin folds REY on CRI Debility Weakness CHF COPD UTI Plan Plan of Care cont diflucan cultures NGTD Supportive care d/c OPAL Mcneil MD Dec 14, 2016 09:58
[2016-12-14 11:00] VITALS: BP 158/70
--- NOTE | 2016-12-14 11:17 | PDOC ---
Renal-Progress Notes Subjective Notes Notes COUGHING AND SOME SOB TODAY, FEELS SWOLLEN History of Present Illness Hx of present illness BETTER OVERALL Vitals Vitals Vital Signs Date Time Temp Pulse Resp B/P Pulse Ox O2 Delivery O2 Flow Rate FiO2 12/14/16 08:58 73 160/74 12/14/16 08:05 98 Nasal Cannula 2.0 12/14/16 07:00 98.1 14 98.1 Weight Weight [ ] I.O. Intake and Output Intake and Output 12/14/16 07:00 Intake Total 1360 ml Output Total 500 ml Balance 860 ml Intake Oral 1360 ml Output Urine Total 500 ml # Voids 1 Labs Labs Laboratory Tests Test 12/13/16 11:23 12/13/16 16:37 12/14/16 04:12 12/14/16 07:16 Glucose (Fingerstick) 138mg/dL (70-99) 133mg/dL (70-99) 110mg/dL (70-99) White Blood Count 9.6x10^3/uL (4.0-11.0) Red Blood Count 2.64x10^6/uL (3.50-5.40) Hemoglobin 7.9g/dL (12.0-15.5) Hematocrit 24.5% (36.0-47.0) Mean Corpuscular Volume 93fL (79-100) Mean Corpuscular Hemoglobin 30pg (25-35) Mean Corpuscular Hemoglobin Concent 32g/dL (31-37) Red Cell Distribution Width 16.4% (11.5-14.5) Platelet Count 173x10^3/uL (140-400) Neutrophils (%) (Auto) 80% (31-73) Lymphocytes (%) (Auto) 16% (24-48) Monocytes (%) (Auto) 4% (0-9) Eosinophils (%) (Auto) 0% (0-3) Basophils (%) (Auto) 0% (0-3) Neutrophils # (Auto) 7.7x10^3uL (1.8-7.7) Lymphocytes # (Auto) 1.5x10^3/uL (1.0-4.8) Monocytes # (Auto) 0.4x10^3/uL (0.0-1.1) Eosinophils # (Auto) 0.0x10^3/uL (0.0-0.7) Basophils # (Auto) 0.0x10^3/uL (0.0-0.2) Sodium Level 144mmol/L (136-145) Potassium Level 4.2mmol/L (3.5-5.1) Chloride Level 106mmol/L (98-107) Carbon Dioxide Level 34mmol/L (21-32) Anion Gap 4 (6-14) Blood Urea Nitrogen 43mg/dL (7-20) Creatinine 1.6mg/dL (0.6-1.0) Estimated GFR (Cockcroft-Gault) 31.2 Glucose Level 132mg/dL (70-99) Calcium Level 7.9mg/dL (8.5-10.1) Phosphorus Level 3.6mg/dL (2.6-4.7) Magnesium Level 2.2mg/dL (1.8-2.4) Albumin 1.9g/dL (3.4-5.0) Micro Micro Microbiology 12/08/16 Blood Culture - Final, Complete NO GROWTH AFTER 5 DAYS 12/08/16 Urine Culture - Final, Complete 12/08/16 Urine Culture Result 1 (VICENTE) - Final, Complete Review of Systems Constitutional: yes: no symptom reported Physical Exam General Appearance: no apparent distress Skin: warm Respiratory: decreased breath sounds Heart: S1S2 Abdomen: soft, bowel sounds present Extremities: no edema Neurology: alert, oriented, follow commands Musculoskeletal: Osteoarthritis Assessment Assessment IMP REY BETTER WITH CR 4.4 TO 1.6 SHOCK COPD LEUCOCYTOSIS - BETTER HYPERVOLEMIA PLAN IV LASIX WILL FOLLOW LISBET DAVIS MD Dec 14, 2016 11:17
[2016-12-14] MEDS ORDERED: FUROSEMIDE 40 MG/4 ML VIAL IVP SCH (14:00)
[2016-12-14] MEDS: HEPARIN PF for SUB-Q USE 5,000 UNIT/0.5 ML VIAL. SQ SCH ×2 (14:05→21:21)
--- NOTE | 2016-12-14 14:53 | PDOC ---
PROGRESS NOTES Chief Complaint Chief Complaint Sepsis ASSESSMENT AND PLAN: 1. Sepsis: resolved. blood cult neg 2. Candidiasis: in intertriginous areas, severe, prob worsened by frequent steroid use for COPD. on nystatin 3. COPD: increased, non-prod cough, causing wosre SOB temporarily. obtain CXR. does have hx CHF 4. CHF: chronic diastolic. mild peripheral edema, increased SOB. LOS I&O about +7L, despite bid lasix IV. increase dose temporarily. 5. REY on CKD (baseline creat ~ 1.5): 2/2 vasomotor etiology. recovered to about baseline. monitor 6. HTN: well controlled on home regimen 7. Gout: no acute issues. on allopurinol 8. Obesity with mild to mod PC M 9. Dispo: if stabilizes, d/c in next couple of days Vitals Vitals Vital Signs Date Time Temp Pulse Resp B/P Pulse Ox O2 Delivery O2 Flow Rate FiO2 12/14/16 11:43 Nasal Cannula 2.0 12/14/16 11:00 97.2 75 16 158/70 95 97.2 Physical Exam General: Alert, Oriented X3, Cooperative, No acute distress Heart: Regular rate, Gallops Lungs: Clear Abdomen: Normal bowel sounds, Soft, No tenderness Extremities: No clubbing, No cyanosis, No tenderness/swelling Skin: Other Labs LABS Laboratory Tests Test 12/13/16 16:37 12/14/16 04:12 12/14/16 07:16 Glucose (Fingerstick) 133mg/dL (70-99) 110mg/dL (70-99) White Blood Count 9.6x10^3/uL (4.0-11.0) Red Blood Count 2.64x10^6/uL (3.50-5.40) Hemoglobin 7.9g/dL (12.0-15.5) Hematocrit 24.5% (36.0-47.0) Mean Corpuscular Volume 93fL (79-100) Mean Corpuscular Hemoglobin 30pg (25-35) Mean Corpuscular Hemoglobin Concent 32g/dL (31-37) Red Cell Distribution Width 16.4% (11.5-14.5) Platelet Count 173x10^3/uL (140-400) Neutrophils (%) (Auto) 80% (31-73) Lymphocytes (%) (Auto) 16% (24-48) Monocytes (%) (Auto) 4% (0-9) Eosinophils (%) (Auto) 0% (0-3) Basophils (%) (Auto) 0% (0-3) Neutrophils # (Auto) 7.7x10^3uL (1.8-7.7) Lymphocytes # (Auto) 1.5x10^3/uL (1.0-4.8) Monocytes # (Auto) 0.4x10^3/uL (0.0-1.1) Eosinophils # (Auto) 0.0x10^3/uL (0.0-0.7) Basophils # (Auto) 0.0x10^3/uL (0.0-0.2) Sodium Level 144mmol/L (136-145) Potassium Level 4.2mmol/L (3.5-5.1) Chloride Level 106mmol/L (98-107) Carbon Dioxide Level 34mmol/L (21-32) Anion Gap 4 (6-14) Blood Urea Nitrogen 43mg/dL (7-20) Creatinine 1.6mg/dL (0.6-1.0) Estimated GFR (Cockcroft-Gault) 31.2 Glucose Level 132mg/dL (70-99) Calcium Level 7.9mg/dL (8.5-10.1) Phosphorus Level 3.6mg/dL (2.6-4.7) Magnesium Level 2.2mg/dL (1.8-2.4) Albumin 1.9g/dL (3.4-5.0) Review of Systems Review of Systems more SOB, erin with (nonproductive) cough, sometimes in uncontrollable spells COLLETTE FALL MD Dec 14, 2016 14:53
--- NOTE | 2016-12-14 14:54 | PDOC ---
PROGRESS NOTES Chief Complaint Chief Complaint [error] COLLETTE FALL MD Dec 14, 2016 14:54
[2016-12-14 15:00] VITALS: BP 149/63
[2016-12-14] MEDS: PREDNISONE 10 MG TABLET PO SCH (18:40)
[2016-12-14 19:00] VITALS: BP 133/59
[2016-12-14] MEDS ORDERED: FUROSEMIDE 40 MG TABLET PO SCH (21:00)
[2016-12-14] MEDS: MONTELUKAST SODIUM 10 MG TABLET. PO SCH (21:12)
[2016-12-14] MEDS: ATORVASTATIN CALCIUM 10 MG TABLET. PO SCH (21:13)
[2016-12-14 22:34] VITALS: BP 141/73
[2016-12-15] MEDS ORDERED: ONDANSETRON PF 4 MG/2 ML VIAL. IV PRN (06:01)
[2016-12-15] MEDS: HYDROCORTISONE SOD SUCC/PF 100 MG/2 ML VIAL. IV SCH ×2 (06:19→14:00)
[2016-12-15 06:38] LABS: BASO % 0 % (0-3); EOS % 0 % (0-3); HEMATOCRIT 25.3 % (36.0-47.0); HEMOGLOBIN 8.3 g/dL (12.0-15.5); LYMPH # 1.1 x10^3/uL (1.0-4.8); LYMPH % 13 % (24-48); MEAN CORPUSCULAR HEMOGLOBIN 30 pg (25-35); MEAN CORPUSCULAR HGB CONC 33 g/dL (31-37); MEAN CORPUSCULAR VOLUME 91 fL (79-100); MONO % 2 % (0-9); NEUT % 85 % (31-73); PLATELET COUNT 179 x10^3/uL (140-400); RED BLOOD COUNT 2.79 x10^6/uL (3.50-5.40); RED CELL DISTRIBUTION WIDTH 16.5 % (11.5-14.5); WHITE BLOOD COUNT 8.9 x10^3/uL (4.0-11.0)
[2016-12-15 07:00] VITALS: BP 176/76
[2016-12-15 07:06] LABS: CREATININE 1.3 mg/dL (0.6-1.0); GFR 39.6; PHOSPHORUS 3.6 mg/dL (2.6-4.7); POTASSIUM 4.3 mmol/L (3.5-5.1)
[2016-12-15] MEDS: IPRATRPIUM/ALBUTEROL 0.5/2.5MG 3 ML NEBU. NEB SCH ×4 (07:36→18:21)
[2016-12-15] MEDS: BUDESONIDE 0.5 MG/2 ML NEBU. NEB SCH ×2 (07:36→18:21)
--- NOTE | 2016-12-15 07:37 | RAD ---
EXAM: Chest, single view. HISTORY: Shortness of air. COMPARISON: 12/11/2016. FINDINGS: A frontal view of the chest is obtained. There are stable small bilateral pleural effusions with basilar atelectasis. There is stable diffuse increased interstitial opacity. There is stable cardiomegaly. There are calcified granulomas. There are advanced degenerative changes involving both shoulders. IMPRESSION: 1. Stable small pleural effusions with basilar atelectasis. 2. Stable diffuse increased interstitial opacity suggesting trace congestion. 3. Stable cardiomegaly.
[2016-12-15] MEDS: INSULIN ASPART 300 UNITS/3 ML INSULN.PEN SQ SCH ×3 (08:00→17:00)
--- NOTE | 2016-12-15 09:11 | PDOC ---
Infectious Disease Note Subjective Subjective Comfortable, up in chair ROS ROS GEN: Denies fevers, chills, sweats HEENT: Denies blurred vision, sore throat CV: Denies chest pain RESP: Denies shortness of air, cough GI: Denies n/v/d NEURO: Denies confusion, dizziness MSK: Denies weakness, joint pain/swelling Vital Sign Vital Signs Vital Signs Date Time Temp Pulse Resp B/P Pulse Ox O2 Delivery O2 Flow Rate FiO2 12/15/16 07:43 98 Nasal Cannula 2.0 12/15/16 07:00 97.9 77 16 176/76 97.9 Physical Exam PHYSICAL EXAM GENERAL: NAD, Alert HEENT: PERRL, OC/OP NECK: Supple, no JVD, no LN LUNGS: Clear HEART: S1S2, no gallop, no murmur ABD: Soft, NT, no organomegaly, no rebound EXT: No edema, no cyanosis PRODUCTION SANITIZER: Alert, oriented x 3, no focal neurologic deficit SKIN: No rash IV: ok Labs Lab Laboratory Tests Test 12/14/16 11:41 12/15/16 05:55 Glucose (Fingerstick) 134mg/dL (70-99) White Blood Count 8.9x10^3/uL (4.0-11.0) Red Blood Count 2.79x10^6/uL (3.50-5.40) Hemoglobin 8.3g/dL (12.0-15.5) Hematocrit 25.3% (36.0-47.0) Mean Corpuscular Volume 91fL (79-100) Mean Corpuscular Hemoglobin 30pg (25-35) Mean Corpuscular Hemoglobin Concent 33g/dL (31-37) Red Cell Distribution Width 16.5% (11.5-14.5) Platelet Count 179x10^3/uL (140-400) Neutrophils (%) (Auto) 85% (31-73) Lymphocytes (%) (Auto) 13% (24-48) Monocytes (%) (Auto) 2% (0-9) Eosinophils (%) (Auto) 0% (0-3) Basophils (%) (Auto) 0% (0-3) Neutrophils # (Auto) 7.6x10^3uL (1.8-7.7) Lymphocytes # (Auto) 1.1x10^3/uL (1.0-4.8) Monocytes # (Auto) 0.2x10^3/uL (0.0-1.1) Eosinophils # (Auto) 0.0x10^3/uL (0.0-0.7) Basophils # (Auto) 0.0x10^3/uL (0.0-0.2) Sodium Level 144mmol/L (136-145) Potassium Level 4.3mmol/L (3.5-5.1) Chloride Level 105mmol/L (98-107) Carbon Dioxide Level 32mmol/L (21-32) Anion Gap 7 (6-14) Blood Urea Nitrogen 43mg/dL (7-20) Creatinine 1.3mg/dL (0.6-1.0) Estimated GFR (Cockcroft-Gault) 39.6 Glucose Level 159mg/dL (70-99) Calcium Level 8.0mg/dL (8.5-10.1) Phosphorus Level 3.6mg/dL (2.6-4.7) Magnesium Level 2.0mg/dL (1.8-2.4) Albumin 2.0g/dL (3.4-5.0) Objective Assessment Hypotension likely sec to vol depletion Extensive yeast infection in skin folds REY on CRI Debility Weakness CHF COPD UTI Plan Plan of Care cont diflucan for 7 days cultures NGTD Supportive care d/c OPAL Mcneil MD Dec 15, 2016 09:11
--- NOTE | 2016-12-15 09:12 | PDOC ---
PULMONARY PROGRESS NOTES Subjective PT WITH COUGH AND WHEEZE Vitals Vital Signs Date Time Temp Pulse Resp B/P Pulse Ox O2 Delivery O2 Flow Rate FiO2 12/15/16 07:43 98 Nasal Cannula 2.0 12/15/16 07:00 97.9 77 16 176/76 97.9 Comments ros as mentioned as above other sys otherwise neg ROS: No Nausea, No Chest Pain, No Abdominal Pain General: Alert, No acute distress HEENT: Other (nc at perrl, throat nose clear) Cardiovascular: S1, S2 Abdomen: Soft, Non-tender Neuro Exam: Alert, Oriented Extremities: No Edema, Other Skin: Warm, Rash Labs Laboratory Tests Test 12/13/16 11:23 12/13/16 16:37 12/14/16 04:12 12/14/16 07:16 Glucose (Fingerstick) 138mg/dL (70-99) 133mg/dL (70-99) 110mg/dL (70-99) White Blood Count 9.6x10^3/uL (4.0-11.0) Red Blood Count 2.64x10^6/uL (3.50-5.40) Hemoglobin 7.9g/dL (12.0-15.5) Hematocrit 24.5% (36.0-47.0) Mean Corpuscular Volume 93fL (79-100) Mean Corpuscular Hemoglobin 30pg (25-35) Mean Corpuscular Hemoglobin Concent 32g/dL (31-37) Red Cell Distribution Width 16.4% (11.5-14.5) Platelet Count 173x10^3/uL (140-400) Neutrophils (%) (Auto) 80% (31-73) Lymphocytes (%) (Auto) 16% (24-48) Monocytes (%) (Auto) 4% (0-9) Eosinophils (%) (Auto) 0% (0-3) Basophils (%) (Auto) 0% (0-3) Neutrophils # (Auto) 7.7x10^3uL (1.8-7.7) Lymphocytes # (Auto) 1.5x10^3/uL (1.0-4.8) Monocytes # (Auto) 0.4x10^3/uL (0.0-1.1) Eosinophils # (Auto) 0.0x10^3/uL (0.0-0.7) Basophils # (Auto) 0.0x10^3/uL (0.0-0.2) Sodium Level 144mmol/L (136-145) Potassium Level 4.2mmol/L (3.5-5.1) Chloride Level 106mmol/L (98-107) Carbon Dioxide Level 34mmol/L (21-32) Anion Gap 4 (6-14) Blood Urea Nitrogen 43mg/dL (7-20) Creatinine 1.6mg/dL (0.6-1.0) Estimated GFR (Cockcroft-Gault) 31.2 Glucose Level 132mg/dL (70-99) Calcium Level 7.9mg/dL (8.5-10.1) Phosphorus Level 3.6mg/dL (2.6-4.7) Magnesium Level 2.2mg/dL (1.8-2.4) Albumin 1.9g/dL (3.4-5.0) Test 12/14/16 11:41 12/15/16 05:55 Glucose (Fingerstick) 134mg/dL (70-99) White Blood Count 8.9x10^3/uL (4.0-11.0) Red Blood Count 2.79x10^6/uL (3.50-5.40) Hemoglobin 8.3g/dL (12.0-15.5) Hematocrit 25.3% (36.0-47.0) Mean Corpuscular Volume 91fL (79-100) Mean Corpuscular Hemoglobin 30pg (25-35) Mean Corpuscular Hemoglobin Concent 33g/dL (31-37) Red Cell Distribution Width 16.5% (11.5-14.5) Platelet Count 179x10^3/uL (140-400) Neutrophils (%) (Auto) 85% (31-73) Lymphocytes (%) (Auto) 13% (24-48) Monocytes (%) (Auto) 2% (0-9) Eosinophils (%) (Auto) 0% (0-3) Basophils (%) (Auto) 0% (0-3) Neutrophils # (Auto) 7.6x10^3uL (1.8-7.7) Lymphocytes # (Auto) 1.1x10^3/uL (1.0-4.8) Monocytes # (Auto) 0.2x10^3/uL (0.0-1.1) Eosinophils # (Auto) 0.0x10^3/uL (0.0-0.7) Basophils # (Auto) 0.0x10^3/uL (0.0-0.2) Sodium Level 144mmol/L (136-145) Potassium Level 4.3mmol/L (3.5-5.1) Chloride Level 105mmol/L (98-107) Carbon Dioxide Level 32mmol/L (21-32) Anion Gap 7 (6-14) Blood Urea Nitrogen 43mg/dL (7-20) Creatinine 1.3mg/dL (0.6-1.0) Estimated GFR (Cockcroft-Gault) 39.6 Glucose Level 159mg/dL (70-99) Calcium Level 8.0mg/dL (8.5-10.1) Phosphorus Level 3.6mg/dL (2.6-4.7) Magnesium Level 2.0mg/dL (1.8-2.4) Albumin 2.0g/dL (3.4-5.0) Laboratory Tests Test 12/14/16 11:41 12/15/16 05:55 Glucose (Fingerstick) 134mg/dL (70-99) White Blood Count 8.9x10^3/uL (4.0-11.0) Red Blood Count 2.79x10^6/uL (3.50-5.40) Hemoglobin 8.3g/dL (12.0-15.5) Hematocrit 25.3% (36.0-47.0) Mean Corpuscular Volume 91fL (79-100) Mean Corpuscular Hemoglobin 30pg (25-35) Mean Corpuscular Hemoglobin Concent 33g/dL (31-37) Red Cell Distribution Width 16.5% (11.5-14.5) Platelet Count 179x10^3/uL (140-400) Neutrophils (%) (Auto) 85% (31-73) Lymphocytes (%) (Auto) 13% (24-48) Monocytes (%) (Auto) 2% (0-9) Eosinophils (%) (Auto) 0% (0-3) Basophils (%) (Auto) 0% (0-3) Neutrophils # (Auto) 7.6x10^3uL (1.8-7.7) Lymphocytes # (Auto) 1.1x10^3/uL (1.0-4.8) Monocytes # (Auto) 0.2x10^3/uL (0.0-1.1) Eosinophils # (Auto) 0.0x10^3/uL (0.0-0.7) Basophils # (Auto) 0.0x10^3/uL (0.0-0.2) Sodium Level 144mmol/L (136-145) Potassium Level 4.3mmol/L (3.5-5.1) Chloride Level 105mmol/L (98-107) Carbon Dioxide Level 32mmol/L (21-32) Anion Gap 7 (6-14) Blood Urea Nitrogen 43mg/dL (7-20) Creatinine 1.3mg/dL (0.6-1.0) Estimated GFR (Cockcroft-Gault) 39.6 Glucose Level 159mg/dL (70-99) Calcium Level 8.0mg/dL (8.5-10.1) Phosphorus Level 3.6mg/dL (2.6-4.7) Magnesium Level 2.0mg/dL (1.8-2.4) Albumin 2.0g/dL (3.4-5.0) Medications Active Scripts Medications Dose Route/Sig Days Date Category Bactrim Ds Tablet (Sulfamethoxazole/Trimethoprim) 1 Each Tablet 1 Tab PO BID 12/07/16 Rx Nystatin 15 Gm Powder 15 Gm TP BID 12/07/16 Rx Tylenol (Acetaminophen) 325 Mg Tablet 650 Mg PO TID PRN PRN 04/11/16 Reported Metformin Hcl 500 Mg Tablet 1 Tab PO TID 04/11/16 Reported Aspir 81 (Aspirin) 81 Mg Tablet.dr 1 Tab PO DAILY 04/11/16 Reported Lisinopril 10 Mg Tablet 30 Mg PO DAILY 12/11/15 Rx Allopurinol 100 Mg Tablet 1 Tab PO DAILY 11/16/15 Reported Iron Supplement (Ferrous Sulfate) 325 Mg Tablet 1 Tab PO DAILY 11/10/15 Reported Advair 250-50 Diskus (Fluticasone/Salmeterol) 1 Each Disk.w.dev 1 Puff IH BID 8/19/15 Reported Duoneb 0.5-3(2.5) Mg/3 Ml (Albuterol/Ipratropium) 3 Ml Ampul.neb 3 Ml IH Q4HRS PRN 05/06/15 Reported Pravastatin Sodium 10 Mg Tablet 1 Tab PO DAILY 09/16/14 Reported Carvedilol 6.25 Mg Tablet 1 Tab PO BID 09/16/14 Reported Furosemide 40 Mg Tablet 1 Tab PO DAILY 09/16/14 Reported Comments cxr reviewed, Increase in interstitial prominence relative to the previous exam suggesting interstitial edema or interstitial pneumonitis Impression . 1. [id number] respiratory failure, multifactorial in etiology. 2. Abnormal chest x-ray. 3. Shock, septic versus hypovolemic. 4. Excessive yeast infection. 5. Acute kidney injury on chronic renal insufficiency. 6. Leukocytosis. 7. Anemia. 8. Congestive heart failure. 9. Chronic obstructive pulmonary disease. 10. Urinary tract infection. 11. allergic rhinitis 12. Possible acute bronchitis Plan . d/w Wtih Dr Uriostegui, lasix will add short course of pred 1. Titrate FiO2 to keep O2 saturation 92%. 2. Bronchodilator. 3. Inhaled corticosteroid. 4. taper Solu-Cortef. The patient has had on prednisone 5. Continue antibiotics per ID 6. Follow up cultures. 7. s/p Fluid resuscitation. 8. Nephrology and ID recommendations 9. Heparin for deep venous thrombosis prophylaxis. 10. protonix for stress ulcer prophylaxis. JESSE STRANGE MD Dec 15, 2016 09:12
[2016-12-15] MEDS: FLUCONAZOLE 100 MG TABLET. PO SCH (10:09)
[2016-12-15] MEDS: GUAIFENESIN ER 600 MG TABLET.ER PO SCH ×2 (10:10→20:35)
[2016-12-15] MEDS: FUROSEMIDE 40 MG/4 ML VIAL. IVP SCH ×2 (10:10→14:58)
[2016-12-15] MEDS: ASPIRIN ENTERIC COATED 81 MG TABLET.DR. PO SCH (10:11)
[2016-12-15] MEDS: ALLOPURINOL 100 MG TABLET. PO SCH (10:11)
[2016-12-15] MEDS: PANTOPRAZOLE 40 MG TABLET. PO SCH (10:11)
[2016-12-15] MEDS: PREDNISONE 10 MG TABLET PO SCH (10:11)
[2016-12-15] MEDS: CARVEDILOL 6.25 MG TABLET. PO SCH ×2 (10:11→17:06)
[2016-12-15] MEDS: FERROUS SULFATE 325 MG TABLET PO SCH (10:11)
[2016-12-15] MEDS: NYSTATIN TOPICAL POWDER 15GM BOTTLE. TP SCH ×4 (10:14→21:59)
[2016-12-15] MEDS: HEPARIN PF for SUB-Q USE 5,000 UNIT/0.5 ML VIAL. SQ SCH ×2 (10:25→20:46)
[2016-12-15 11:11] VITALS: BP 150/69
--- NOTE | 2016-12-15 11:37 | PDOC ---
Renal-Progress Notes Subjective Notes Notes STILL SOME COUGH History of Present Illness Hx of present illness NO CHANGE Vitals Vitals Vital Signs Date Time Temp Pulse Resp B/P Pulse Ox O2 Delivery O2 Flow Rate FiO2 12/15/16 11:33 Nasal Cannula 2.0 12/15/16 11:11 98.5 69 18 150/69 97 98.5 Weight Weight [ ] I.O. Intake and Output Intake and Output 12/15/16 07:00 Intake Total 1230 ml Output Total 500 ml Balance 730 ml Intake Oral 1230 ml Output Urine Total 500 ml # Voids 11 Labs Labs Laboratory Tests Test 12/14/16 11:41 12/15/16 05:55 12/15/16 11:06 Glucose (Fingerstick) 134mg/dL (70-99) 141mg/dL (70-99) White Blood Count 8.9x10^3/uL (4.0-11.0) Red Blood Count 2.79x10^6/uL (3.50-5.40) Hemoglobin 8.3g/dL (12.0-15.5) Hematocrit 25.3% (36.0-47.0) Mean Corpuscular Volume 91fL (79-100) Mean Corpuscular Hemoglobin 30pg (25-35) Mean Corpuscular Hemoglobin Concent 33g/dL (31-37) Red Cell Distribution Width 16.5% (11.5-14.5) Platelet Count 179x10^3/uL (140-400) Neutrophils (%) (Auto) 85% (31-73) Lymphocytes (%) (Auto) 13% (24-48) Monocytes (%) (Auto) 2% (0-9) Eosinophils (%) (Auto) 0% (0-3) Basophils (%) (Auto) 0% (0-3) Neutrophils # (Auto) 7.6x10^3uL (1.8-7.7) Lymphocytes # (Auto) 1.1x10^3/uL (1.0-4.8) Monocytes # (Auto) 0.2x10^3/uL (0.0-1.1) Eosinophils # (Auto) 0.0x10^3/uL (0.0-0.7) Basophils # (Auto) 0.0x10^3/uL (0.0-0.2) Sodium Level 144mmol/L (136-145) Potassium Level 4.3mmol/L (3.5-5.1) Chloride Level 105mmol/L (98-107) Carbon Dioxide Level 32mmol/L (21-32) Anion Gap 7 (6-14) Blood Urea Nitrogen 43mg/dL (7-20) Creatinine 1.3mg/dL (0.6-1.0) Estimated GFR (Cockcroft-Gault) 39.6 Glucose Level 159mg/dL (70-99) Calcium Level 8.0mg/dL (8.5-10.1) Phosphorus Level 3.6mg/dL (2.6-4.7) Magnesium Level 2.0mg/dL (1.8-2.4) Albumin 2.0g/dL (3.4-5.0) Micro Micro Microbiology 12/08/16 Blood Culture - Final, Complete NO GROWTH AFTER 5 DAYS 12/08/16 Urine Culture - Final, Complete 12/08/16 Urine Culture Result 1 (VICENTE) - Final, Complete Review of Systems Constitutional: yes: no symptom reported Physical Exam General Appearance: no apparent distress Skin: warm Respiratory: decreased breath sounds Heart: S1S2 Abdomen: soft, bowel sounds present Extremities: no edema Neurology: alert, oriented, follow commands Musculoskeletal: Osteoarthritis Assessment Assessment IMP REY BETTER WITH CR 4.4 TO 1.7 SHOCK COPD LEUCOCYTOSIS - BETTER HYPERVOLEMIA PLAN IV LASIX WILL FOLLOW LISBET DAVIS MD Dec 15, 2016 11:37
--- NOTE | 2016-12-15 12:39 | PDOC ---
PROGRESS NOTES Chief Complaint Chief Complaint Sepsis ASSESSMENT AND PLAN: 1. Sepsis: resolved. blood cult neg 2. Candidiasis: in intertriginous areas, severe, prob worsened by frequent steroid use for COPD. on nystatin 3. COPD: increased, non-prod cough, causing worse SOB temporarily. CXR with ' stable increased vascular congestion'. add.l IV lasix for now 4. CHF: chronic diastolic. mild peripheral edema, increased SOB. LOS I&O about +7L, despite bid lasix IV. increase dose temporarily 40->80 bid 5. REY on CKD (baseline creat ~ 1.5): 2/2 vasomotor etiology. recovered to about baseline. monitor 6. HTN: well controlled on home regimen 7. Gout: no acute issues. on allopurinol 8. Obesity with mild to mod PC M 9. Dispo: respir status remains tenuous. hold D/C. She is, finally, agreeable to rehab! Vitals Vitals Vital Signs Date Time Temp Pulse Resp B/P Pulse Ox O2 Delivery O2 Flow Rate FiO2 12/15/16 11:33 Nasal Cannula 2.0 12/15/16 11:11 98.5 69 18 150/69 97 98.5 Labs LABS Laboratory Tests Test 12/15/16 05:55 12/15/16 11:06 White Blood Count 8.9x10^3/uL (4.0-11.0) Red Blood Count 2.79x10^6/uL (3.50-5.40) Hemoglobin 8.3g/dL (12.0-15.5) Hematocrit 25.3% (36.0-47.0) Mean Corpuscular Volume 91fL (79-100) Mean Corpuscular Hemoglobin 30pg (25-35) Mean Corpuscular Hemoglobin Concent 33g/dL (31-37) Red Cell Distribution Width 16.5% (11.5-14.5) Platelet Count 179x10^3/uL (140-400) Neutrophils (%) (Auto) 85% (31-73) Lymphocytes (%) (Auto) 13% (24-48) Monocytes (%) (Auto) 2% (0-9) Eosinophils (%) (Auto) 0% (0-3) Basophils (%) (Auto) 0% (0-3) Neutrophils # (Auto) 7.6x10^3uL (1.8-7.7) Lymphocytes # (Auto) 1.1x10^3/uL (1.0-4.8) Monocytes # (Auto) 0.2x10^3/uL (0.0-1.1) Eosinophils # (Auto) 0.0x10^3/uL (0.0-0.7) Basophils # (Auto) 0.0x10^3/uL (0.0-0.2) Sodium Level 144mmol/L (136-145) Potassium Level 4.3mmol/L (3.5-5.1) Chloride Level 105mmol/L (98-107) Carbon Dioxide Level 32mmol/L (21-32) Anion Gap 7 (6-14) Blood Urea Nitrogen 43mg/dL (7-20) Creatinine 1.3mg/dL (0.6-1.0) Estimated GFR (Cockcroft-Gault) 39.6 Glucose Level 159mg/dL (70-99) Calcium Level 8.0mg/dL (8.5-10.1) Phosphorus Level 3.6mg/dL (2.6-4.7) Magnesium Level 2.0mg/dL (1.8-2.4) Albumin 2.0g/dL (3.4-5.0) Glucose (Fingerstick) 141mg/dL (70-99) Review of Systems Review of Systems very MATOS with walking 20 feet to bathroom. ok at rest. denies pain COLLETTE FALL MD Dec 15, 2016 12:39
[2016-12-15 14:45] VITALS: BP 146/66
[2016-12-15 14:59] VITALS: BP 153/69
[2016-12-15 19:00] VITALS: BP 146/60
[2016-12-15] MEDS: ATORVASTATIN CALCIUM 10 MG TABLET. PO SCH (20:35)
[2016-12-15] MEDS: MONTELUKAST SODIUM 10 MG TABLET. PO SCH (20:35)
[2016-12-15 23:00] VITALS: BP 134/72
[2016-12-16 05:31] LABS: BASO % 0 % (0-3); EOS % 0 % (0-3); HEMATOCRIT 25.9 % (36.0-47.0); HEMOGLOBIN 8.1 g/dL (12.0-15.5); LYMPH # 1.9 x10^3/uL (1.0-4.8); LYMPH % 17 % (24-48); MEAN CORPUSCULAR HEMOGLOBIN 29 pg (25-35); MEAN CORPUSCULAR HGB CONC 31 g/dL (31-37); MEAN CORPUSCULAR VOLUME 93 fL (79-100); MONO % 6 % (0-9); NEUT % 77 % (31-73); PLATELET COUNT 180 x10^3/uL (140-400); RED BLOOD COUNT 2.77 x10^6/uL (3.50-5.40); WHITE BLOOD COUNT 11.5 x10^3/uL (4.0-11.0)
[2016-12-16 05:50] LABS: ALBUMIN 2.2 g/dL (3.4-5.0); CALCIUM 8.1 mg/dL (8.5-10.1); CREATININE 1.4 mg/dL (0.6-1.0); GFR 36.4; PHOSPHORUS 3.5 mg/dL (2.6-4.7); POTASSIUM 3.9 mmol/L (3.5-5.1)
[2016-12-16 07:00] VITALS: BP 150/71
[2016-12-16] MEDS: BUDESONIDE 0.5 MG/2 ML NEBU. NEB SCH ×2 (07:22→20:03)
[2016-12-16] MEDS: IPRATRPIUM/ALBUTEROL 0.5/2.5MG 3 ML NEBU. NEB SCH ×4 (07:22→20:04)
[2016-12-16] MEDS ORDERED: FLUCONAZOLE 100 MG TABLET. ONE (07:49)
[2016-12-16] MEDS ORDERED: FERROUS SULFATE 325 MG TABLET. PO ONE (07:50)
[2016-12-16] MEDS: INSULIN ASPART 300 UNITS/3 ML INSULN.PEN SQ SCH ×3 (08:00→17:06)
[2016-12-16] MEDS: GUAIFENESIN ER 600 MG TABLET.ER PO SCH ×2 (08:41→20:39)
[2016-12-16] MEDS: CARVEDILOL 6.25 MG TABLET. PO SCH ×2 (08:42→17:15)
[2016-12-16] MEDS: PREDNISONE 20 MG TABLET PO SCH (08:42)
[2016-12-16] MEDS: ASPIRIN ENTERIC COATED 81 MG TABLET.DR. PO SCH (08:44)
[2016-12-16] MEDS: PANTOPRAZOLE 40 MG TABLET.DR. PO SCH (08:44)
[2016-12-16] MEDS: ALLOPURINOL 100 MG TABLET. PO SCH (08:44)
[2016-12-16] MEDS: FLUCONAZOLE 100 MG TABLET. PO SCH (08:44)
[2016-12-16] MEDS: FERROUS SULFATE 325 MG TABLET PO SCH (08:44)
[2016-12-16] MEDS: FUROSEMIDE 100 MG/10 ML VIAL. IVP SCH ×2 (08:45→15:25)
[2016-12-16] MEDS: NYSTATIN TOPICAL POWDER 15GM BOTTLE. TP SCH ×4 (08:49→20:34)
[2016-12-16] MEDS: HEPARIN PF for SUB-Q USE 5,000 UNIT/0.5 ML VIAL. SQ SCH ×2 (09:00→20:39)
--- NOTE | 2016-12-16 09:00 | PDOC ---
PULMONARY PROGRESS NOTES Subjective PT WITH COUGH AND WHEEZE Vitals Vital Signs Date Time Temp Pulse Resp B/P Pulse Ox O2 Delivery O2 Flow Rate FiO2 12/16/16 07:24 94 Nasal Cannula 2.0 12/16/16 07:00 97.9 68 18 150/71 97.9 Comments ros as mentioned as above other sys otherwise neg ROS: No Nausea, No Chest Pain, No Abdominal Pain General: Alert, No acute distress HEENT: Other (nc at perrl, throat nose clear) Cardiovascular: S1, S2 Abdomen: Soft, Non-tender Neuro Exam: Alert, Oriented Extremities: No Edema, Other Skin: Warm, Rash Labs Laboratory Tests Test 12/14/16 11:41 12/15/16 05:55 12/15/16 11:06 12/15/16 17:04 Glucose (Fingerstick) 134mg/dL (70-99) 141mg/dL (70-99) 150mg/dL (70-99) White Blood Count 8.9x10^3/uL (4.0-11.0) Red Blood Count 2.79x10^6/uL (3.50-5.40) Hemoglobin 8.3g/dL (12.0-15.5) Hematocrit 25.3% (36.0-47.0) Mean Corpuscular Volume 91fL (79-100) Mean Corpuscular Hemoglobin 30pg (25-35) Mean Corpuscular Hemoglobin Concent 33g/dL (31-37) Red Cell Distribution Width 16.5% (11.5-14.5) Platelet Count 179x10^3/uL (140-400) Neutrophils (%) (Auto) 85% (31-73) Lymphocytes (%) (Auto) 13% (24-48) Monocytes (%) (Auto) 2% (0-9) Eosinophils (%) (Auto) 0% (0-3) Basophils (%) (Auto) 0% (0-3) Neutrophils # (Auto) 7.6x10^3uL (1.8-7.7) Lymphocytes # (Auto) 1.1x10^3/uL (1.0-4.8) Monocytes # (Auto) 0.2x10^3/uL (0.0-1.1) Eosinophils # (Auto) 0.0x10^3/uL (0.0-0.7) Basophils # (Auto) 0.0x10^3/uL (0.0-0.2) Sodium Level 144mmol/L (136-145) Potassium Level 4.3mmol/L (3.5-5.1) Chloride Level 105mmol/L (98-107) Carbon Dioxide Level 32mmol/L (21-32) Anion Gap 7 (6-14) Blood Urea Nitrogen 43mg/dL (7-20) Creatinine 1.3mg/dL (0.6-1.0) Estimated GFR (Cockcroft-Gault) 39.6 Glucose Level 159mg/dL (70-99) Calcium Level 8.0mg/dL (8.5-10.1) Phosphorus Level 3.6mg/dL (2.6-4.7) Magnesium Level 2.0mg/dL (1.8-2.4) Albumin 2.0g/dL (3.4-5.0) Test 12/15/16 21:24 12/16/16 05:00 12/16/16 07:42 Glucose (Fingerstick) 150mg/dL (70-99) 97mg/dL (70-99) White Blood Count 11.5x10^3/uL (4.0-11.0) Red Blood Count 2.77x10^6/uL (3.50-5.40) Hemoglobin 8.1g/dL (12.0-15.5) Hematocrit 25.9% (36.0-47.0) Mean Corpuscular Volume 93fL (79-100) Mean Corpuscular Hemoglobin 29pg (25-35) Mean Corpuscular Hemoglobin Concent 31g/dL (31-37) Red Cell Distribution Width 17.0% (11.5-14.5) Platelet Count 180x10^3/uL (140-400) Neutrophils (%) (Auto) 77% (31-73) Lymphocytes (%) (Auto) 17% (24-48) Monocytes (%) (Auto) 6% (0-9) Eosinophils (%) (Auto) 0% (0-3) Basophils (%) (Auto) 0% (0-3) Neutrophils # (Auto) 8.9x10^3uL (1.8-7.7) Lymphocytes # (Auto) 1.9x10^3/uL (1.0-4.8) Monocytes # (Auto) 0.6x10^3/uL (0.0-1.1) Eosinophils # (Auto) 0.0x10^3/uL (0.0-0.7) Basophils # (Auto) 0.0x10^3/uL (0.0-0.2) Sodium Level 144mmol/L (136-145) Potassium Level 3.9mmol/L (3.5-5.1) Chloride Level 103mmol/L (98-107) Carbon Dioxide Level 34mmol/L (21-32) Anion Gap 7 (6-14) Blood Urea Nitrogen 42mg/dL (7-20) Creatinine 1.4mg/dL (0.6-1.0) Estimated GFR (Cockcroft-Gault) 36.4 Glucose Level 105mg/dL (70-99) Calcium Level 8.1mg/dL (8.5-10.1) Phosphorus Level 3.5mg/dL (2.6-4.7) Albumin 2.2g/dL (3.4-5.0) Laboratory Tests Test 12/15/16 11:06 12/15/16 17:04 12/15/16 21:24 12/16/16 05:00 Glucose (Fingerstick) 141mg/dL (70-99) 150mg/dL (70-99) 150mg/dL (70-99) White Blood Count 11.5x10^3/uL (4.0-11.0) Red Blood Count 2.77x10^6/uL (3.50-5.40) Hemoglobin 8.1g/dL (12.0-15.5) Hematocrit 25.9% (36.0-47.0) Mean Corpuscular Volume 93fL (79-100) Mean Corpuscular Hemoglobin 29pg (25-35) Mean Corpuscular Hemoglobin Concent 31g/dL (31-37) Red Cell Distribution Width 17.0% (11.5-14.5) Platelet Count 180x10^3/uL (140-400) Neutrophils (%) (Auto) 77% (31-73) Lymphocytes (%) (Auto) 17% (24-48) Monocytes (%) (Auto) 6% (0-9) Eosinophils (%) (Auto) 0% (0-3) Basophils (%) (Auto) 0% (0-3) Neutrophils # (Auto) 8.9x10^3uL (1.8-7.7) Lymphocytes # (Auto) 1.9x10^3/uL (1.0-4.8) Monocytes # (Auto) 0.6x10^3/uL (0.0-1.1) Eosinophils # (Auto) 0.0x10^3/uL (0.0-0.7) Basophils # (Auto) 0.0x10^3/uL (0.0-0.2) Sodium Level 144mmol/L (136-145) Potassium Level 3.9mmol/L (3.5-5.1) Chloride Level 103mmol/L (98-107) Carbon Dioxide Level 34mmol/L (21-32) Anion Gap 7 (6-14) Blood Urea Nitrogen 42mg/dL (7-20) Creatinine 1.4mg/dL (0.6-1.0) Estimated GFR (Cockcroft-Gault) 36.4 Glucose Level 105mg/dL (70-99) Calcium Level 8.1mg/dL (8.5-10.1) Phosphorus Level 3.5mg/dL (2.6-4.7) Albumin 2.2g/dL (3.4-5.0) Test 12/16/16 07:42 Glucose (Fingerstick) 97mg/dL (70-99) Medications Active Scripts Medications Dose Route/Sig Days Date Category Bactrim Ds Tablet (Sulfamethoxazole/Trimethoprim) 1 Each Tablet 1 Tab PO BID 12/07/16 Rx Nystatin 15 Gm Powder 15 Gm TP BID 12/07/16 Rx Tylenol (Acetaminophen) 325 Mg Tablet 650 Mg PO TID PRN PRN 04/11/16 Reported Metformin Hcl 500 Mg Tablet 1 Tab PO TID 04/11/16 Reported Aspir 81 (Aspirin) 81 Mg Tablet.dr 1 Tab PO DAILY 04/11/16 Reported Lisinopril 10 Mg Tablet 30 Mg PO DAILY 12/11/15 Rx Allopurinol 100 Mg Tablet 1 Tab PO DAILY 11/16/15 Reported Iron Supplement (Ferrous Sulfate) 325 Mg Tablet 1 Tab PO DAILY 11/10/15 Reported Advair 250-50 Diskus (Fluticasone/Salmeterol) 1 Each Disk.w.dev 1 Puff IH BID 05/06/15 Reported Duoneb 0.5-3(2.5) Mg/3 Ml (Albuterol/Ipratropium) 3 Ml Ampul.neb 3 Ml IH Q4HRS PRN 05/06/15 Reported Pravastatin Sodium 10 Mg Tablet 1 Tab PO DAILY 09/16/14 Reported Carvedilol 6.25 Mg Tablet 1 Tab PO BID 09/16/14 Reported Furosemide 40 Mg Tablet 1 Tab PO DAILY 09/16/14 Reported Comments cxr reviewed, Increase in interstitial prominence relative to the previous exam suggesting interstitial edema or interstitial pneumonitis Impression . 1. Ljyzh-yu-[id number] respiratory failure, multifactorial in etiology. 2. Abnormal chest x-ray. 3. Shock, septic versus hypovolemic. 4. Excessive yeast infection. 5. Acute kidney injury on chronic renal insufficiency. 6. Leukocytosis. 7. Anemia. 8. Congestive heart failure. 9. Chronic obstructive pulmonary disease. 10. Urinary tract infection. 11. allergic rhinitis 12. Possible acute bronchitis Plan . at time resp status is worse lasix will add short course of pred 1. Titrate FiO2 to keep O2 saturation 92%. 2. Bronchodilator. 3. Inhaled corticosteroid. 4. taper Solu-Cortef. The patient has had on prednisone 5. Continue antibiotics per ID 6. Follow up cultures. 7. s/p Fluid resuscitation. 8. Nephrology and ID recommendations 9. Heparin for deep venous thrombosis prophylaxis. 10. protonix for stress ulcer prophylaxis. JESSE STRANGE MD Dec 16, 2016 09:00
[2016-12-16 10:15] VITALS: BP 140/66
--- NOTE | 2016-12-16 11:55 | PDOC ---
Infectious Disease Note Subjective Subjective Comfortable, up in chair ROS ROS GEN: Denies fevers, chills, sweats HEENT: Denies blurred vision, sore throat CV: Denies chest pain RESP: Denies shortness of air, cough GI: Denies n/v/d NEURO: Denies confusion, dizziness MSK: Denies weakness, joint pain/swelling Vital Sign Vital Signs Vital Signs Date Time Temp Pulse Resp B/P Pulse Ox O2 Delivery O2 Flow Rate FiO2 12/16/16 11:16 Nasal Cannula 2.0 12/16/16 10:15 74 140/66 12/16/16 07:24 94 12/16/16 07:00 97.9 18 97.9 Physical Exam PHYSICAL EXAM GENERAL: NAD, Alert HEENT: PERRL, OC/OP NECK: Supple, no JVD, no LN LUNGS: Clear HEART: S1S2, no gallop, no murmur ABD: Soft, NT, no organomegaly, no rebound EXT: No edema, no cyanosis JACKSPOOLER: Alert, oriented x 3, no focal neurologic deficit SKIN: No rash IV: ok Labs Lab Laboratory Tests Test 12/15/16 17:04 12/15/16 21:24 12/16/16 05:00 12/16/16 07:42 Glucose (Fingerstick) 150mg/dL (70-99) 150mg/dL (70-99) 97mg/dL (70-99) White Blood Count 11.5x10^3/uL (4.0-11.0) Red Blood Count 2.77x10^6/uL (3.50-5.40) Hemoglobin 8.1g/dL (12.0-15.5) Hematocrit 25.9% (36.0-47.0) Mean Corpuscular Volume 93fL (79-100) Mean Corpuscular Hemoglobin 29pg (25-35) Mean Corpuscular Hemoglobin Concent 31g/dL (31-37) Red Cell Distribution Width 17.0% (11.5-14.5) Platelet Count 180x10^3/uL (140-400) Neutrophils (%) (Auto) 77% (31-73) Lymphocytes (%) (Auto) 17% (24-48) Monocytes (%) (Auto) 6% (0-9) Eosinophils (%) (Auto) 0% (0-3) Basophils (%) (Auto) 0% (0-3) Neutrophils # (Auto) 8.9x10^3uL (1.8-7.7) Lymphocytes # (Auto) 1.9x10^3/uL (1.0-4.8) Monocytes # (Auto) 0.6x10^3/uL (0.0-1.1) Eosinophils # (Auto) 0.0x10^3/uL (0.0-0.7) Basophils # (Auto) 0.0x10^3/uL (0.0-0.2) Sodium Level 144mmol/L (136-145) Potassium Level 3.9mmol/L (3.5-5.1) Chloride Level 103mmol/L (98-107) Carbon Dioxide Level 34mmol/L (21-32) Anion Gap 7 (6-14) Blood Urea Nitrogen 42mg/dL (7-20) Creatinine 1.4mg/dL (0.6-1.0) Estimated GFR (Cockcroft-Gault) 36.4 Glucose Level 105mg/dL (70-99) Calcium Level 8.1mg/dL (8.5-10.1) Phosphorus Level 3.5mg/dL (2.6-4.7) Albumin 2.2g/dL (3.4-5.0) Test 12/16/16 11:08 Glucose (Fingerstick) 99mg/dL (70-99) Objective Assessment Hypotension likely sec to vol depletion Extensive yeast infection in skin folds REY on CRI Debility Weakness CHF COPD UTI Plan Plan of Care cont diflucan for 7 days cultures NGTD Supportive care d/c OPAL Mcneil MD Dec 16, 2016 11:55
--- NOTE | 2016-12-16 12:10 | PDOC ---
Renal-Progress Notes Subjective Notes Notes FEELING BETTER BUT DOESN'T THINK SHE IS URINATING MUCH History of Present Illness Hx of present illness BETTER Vitals Vitals Vital Signs Date Time Temp Pulse Resp B/P Pulse Ox O2 Delivery O2 Flow Rate FiO2 12/16/16 11:16 Nasal Cannula 2.0 12/16/16 10:15 74 140/66 12/16/16 07:24 94 12/16/16 07:00 97.9 18 97.9 Weight Weight [ ] I.O. Intake and Output Intake and Output 12/16/16 07:00 Intake Total 300 ml Output Total 600 ml Balance -300 ml Intake Oral 300 ml Output Urine Total 600 ml # Voids 5 # Bowel Movements 2 Labs Labs Laboratory Tests Test 12/15/16 17:04 12/15/16 21:24 12/16/16 05:00 12/16/16 07:42 Glucose (Fingerstick) 150mg/dL (70-99) 150mg/dL (70-99) 97mg/dL (70-99) White Blood Count 11.5x10^3/uL (4.0-11.0) Red Blood Count 2.77x10^6/uL (3.50-5.40) Hemoglobin 8.1g/dL (12.0-15.5) Hematocrit 25.9% (36.0-47.0) Mean Corpuscular Volume 93fL (79-100) Mean Corpuscular Hemoglobin 29pg (25-35) Mean Corpuscular Hemoglobin Concent 31g/dL (31-37) Red Cell Distribution Width 17.0% (11.5-14.5) Platelet Count 180x10^3/uL (140-400) Neutrophils (%) (Auto) 77% (31-73) Lymphocytes (%) (Auto) 17% (24-48) Monocytes (%) (Auto) 6% (0-9) Eosinophils (%) (Auto) 0% (0-3) Basophils (%) (Auto) 0% (0-3) Neutrophils # (Auto) 8.9x10^3uL (1.8-7.7) Lymphocytes # (Auto) 1.9x10^3/uL (1.0-4.8) Monocytes # (Auto) 0.6x10^3/uL (0.0-1.1) Eosinophils # (Auto) 0.0x10^3/uL (0.0-0.7) Basophils # (Auto) 0.0x10^3/uL (0.0-0.2) Sodium Level 144mmol/L (136-145) Potassium Level 3.9mmol/L (3.5-5.1) Chloride Level 103mmol/L (98-107) Carbon Dioxide Level 34mmol/L (21-32) Anion Gap 7 (6-14) Blood Urea Nitrogen 42mg/dL (7-20) Creatinine 1.4mg/dL (0.6-1.0) Estimated GFR (Cockcroft-Gault) 36.4 Glucose Level 105mg/dL (70-99) Calcium Level 8.1mg/dL (8.5-10.1) Phosphorus Level 3.5mg/dL (2.6-4.7) Albumin 2.2g/dL (3.4-5.0) Test 12/16/16 11:08 Glucose (Fingerstick) 99mg/dL (70-99) Micro Micro Microbiology 12/08/16 Blood Culture - Final, Complete NO GROWTH AFTER 5 DAYS 12/08/16 Urine Culture - Final, Complete 12/08/16 Urine Culture Result 1 (VICENTE) - Final, Complete Review of Systems Constitutional: yes: no symptom reported Physical Exam General Appearance: no apparent distress Skin: warm Respiratory: decreased breath sounds Heart: S1S2 Abdomen: soft, bowel sounds present Extremities: no edema Neurology: alert, oriented, follow commands Musculoskeletal: Osteoarthritis Assessment Assessment IMP REY BETTER WITH CR 4.4 TO 1.6 PROB CKD STAGE 3 SHOCK COPD LEUCOCYTOSIS - BETTER HYPERVOLEMIA/EDEMA-BETTER PLAN IV LASIX BLADDER SCAN WILL FOLLOW LISBET DAVIS MD Dec 16, 2016 12:10
--- NOTE | 2016-12-16 13:08 | PDOC ---
PROGRESS NOTES Chief Complaint Chief Complaint Sepsis ASSESSMENT AND PLAN: 1. Sepsis: resolved. blood cult neg 2. Candidiasis: in intertriginous areas, severe, prob worsened by frequent steroid use for COPD. on nystatin 3. COPD: increased, non-prod cough, causing worse SOB temporarily. CXR with ' stable increased vascular congestion'. 4. CHF: chronic diastolic. mild peripheral edema, increased SOB. LOS I&O about +7L, despite bid lasix IV. increase dose temporarily 40->80 bid 5. REY on CKD (baseline creat ~ 1.5): 2/2 vasomotor etiology. recovered to about baseline. monitor 6. HTN: well controlled on home regimen 7. Gout: no acute issues. on allopurinol 8. Obesity with mild to mod PC M 9. Dispo: respir status remains tenuous. hold D/C to rehab Vitals Vitals Vital Signs Date Time Temp Pulse Resp B/P Pulse Ox O2 Delivery O2 Flow Rate FiO2 12/16/16 11:16 Nasal Cannula 2.0 12/16/16 10:15 74 140/66 12/16/16 07:24 94 12/16/16 07:00 97.9 18 97.9 Labs LABS Laboratory Tests Test 12/15/16 17:04 12/15/16 21:24 12/16/16 05:00 12/16/16 07:42 Glucose (Fingerstick) 150mg/dL (70-99) 150mg/dL (70-99) 97mg/dL (70-99) White Blood Count 11.5x10^3/uL (4.0-11.0) Red Blood Count 2.77x10^6/uL (3.50-5.40) Hemoglobin 8.1g/dL (12.0-15.5) Hematocrit 25.9% (36.0-47.0) Mean Corpuscular Volume 93fL (79-100) Mean Corpuscular Hemoglobin 29pg (25-35) Mean Corpuscular Hemoglobin Concent 31g/dL (31-37) Red Cell Distribution Width 17.0% (11.5-14.5) Platelet Count 180x10^3/uL (140-400) Neutrophils (%) (Auto) 77% (31-73) Lymphocytes (%) (Auto) 17% (24-48) Monocytes (%) (Auto) 6% (0-9) Eosinophils (%) (Auto) 0% (0-3) Basophils (%) (Auto) 0% (0-3) Neutrophils # (Auto) 8.9x10^3uL (1.8-7.7) Lymphocytes # (Auto) 1.9x10^3/uL (1.0-4.8) Monocytes # (Auto) 0.6x10^3/uL (0.0-1.1) Eosinophils # (Auto) 0.0x10^3/uL (0.0-0.7) Basophils # (Auto) 0.0x10^3/uL (0.0-0.2) Sodium Level 144mmol/L (136-145) Potassium Level 3.9mmol/L (3.5-5.1) Chloride Level 103mmol/L (98-107) Carbon Dioxide Level 34mmol/L (21-32) Anion Gap 7 (6-14) Blood Urea Nitrogen 42mg/dL (7-20) Creatinine 1.4mg/dL (0.6-1.0) Estimated GFR (Cockcroft-Gault) 36.4 Glucose Level 105mg/dL (70-99) Calcium Level 8.1mg/dL (8.5-10.1) Phosphorus Level 3.5mg/dL (2.6-4.7) Albumin 2.2g/dL (3.4-5.0) Test 12/16/16 11:08 Glucose (Fingerstick) 99mg/dL (70-99) Review of Systems Review of Systems breathing a little better today. cough not as violent. legs still swollen. no abd c/o COLLETTE FALL MD Dec 16, 2016 13:08
[2016-12-16 15:00] VITALS: BP 143/61
[2016-12-16 19:15] VITALS: BP 125/65
[2016-12-16] MEDS: DARBEPOETIN ALFA 60 MCG/0.3 ML DISP.SYRIN. SQ SCH (20:38)
[2016-12-16] MEDS: MONTELUKAST SODIUM 10 MG TABLET. PO SCH (20:39)
[2016-12-16] MEDS: ATORVASTATIN CALCIUM 10 MG TABLET. PO SCH (20:39)
[2016-12-16 23:08] VITALS: BP 122/62
[2016-12-17 05:15] LABS: BASO % 0 % (0-3); EOS % 1 % (0-3); HEMATOCRIT 27.4 % (36.0-47.0); HEMOGLOBIN 8.5 g/dL (12.0-15.5); LYMPH # 2.3 x10^3/uL (1.0-4.8); LYMPH % 23 % (24-48); MEAN CORPUSCULAR HEMOGLOBIN 29 pg (25-35); MEAN CORPUSCULAR HGB CONC 31 g/dL (31-37); MEAN CORPUSCULAR VOLUME 95 fL (79-100); MONO % 6 % (0-9); NEUT % 70 % (31-73); PLATELET COUNT 168 x10^3/uL (140-400); RED CELL DISTRIBUTION WIDTH 17.5 % (11.5-14.5); WHITE BLOOD COUNT 9.9 x10^3/uL (4.0-11.0)
[2016-12-17 05:43] LABS: CALCIUM 7.9 mg/dL (8.5-10.1); CREATININE 1.3 mg/dL (0.6-1.0); GFR 39.6; POTASSIUM 3.5 mmol/L (3.5-5.1)
[2016-12-17 07:00] VITALS: BP 125/66
[2016-12-17] MEDS: BUDESONIDE 0.5 MG/2 ML NEBU. NEB SCH ×2 (07:34→20:36)
[2016-12-17] MEDS: IPRATRPIUM/ALBUTEROL 0.5/2.5MG 3 ML NEBU. NEB SCH ×4 (07:34→20:36)
[2016-12-17] MEDS: INSULIN ASPART 300 UNITS/3 ML INSULN.PEN SQ SCH ×3 (08:00→16:48)
[2016-12-17] MEDS ORDERED: FLUCONAZOLE 100 MG TABLET. ONE (08:11)
[2016-12-17] MEDS ORDERED: FERROUS SULFATE 325 MG TABLET. PO ONE (08:12)
[2016-12-17] MEDS: FLUCONAZOLE 100 MG TABLET. PO SCH (08:58)
[2016-12-17] MEDS: ASPIRIN ENTERIC COATED 81 MG TABLET.DR. PO SCH (08:59)
[2016-12-17] MEDS: PANTOPRAZOLE 40 MG TABLET.DR. PO SCH (08:59)
[2016-12-17] MEDS: FERROUS SULFATE 325 MG TABLET PO SCH (08:59)
[2016-12-17] MEDS: PREDNISONE 20 MG TABLET PO SCH (09:00)
[2016-12-17] MEDS: CARVEDILOL 6.25 MG TABLET. PO SCH ×2 (09:00→16:49)
[2016-12-17] MEDS: GUAIFENESIN ER 600 MG TABLET.ER PO SCH ×2 (09:00→22:22)
[2016-12-17] MEDS: FUROSEMIDE 100 MG/10 ML VIAL. IVP SCH ×2 (09:01→15:56)
[2016-12-17] MEDS: NYSTATIN TOPICAL POWDER 15GM BOTTLE. TP SCH ×4 (09:03→22:22)
[2016-12-17] MEDS: ALLOPURINOL 100 MG TABLET. PO SCH (09:04)
[2016-12-17] MEDS: HEPARIN PF for SUB-Q USE 5,000 UNIT/0.5 ML VIAL. SQ SCH ×2 (09:16→22:28)
[2016-12-17 11:34] VITALS: BP 123/56
--- NOTE | 2016-12-17 11:42 | PDOC ---
PROGRESS NOTES Chief Complaint Chief Complaint Sepsis ASSESSMENT AND PLAN: 1. Sepsis: resolved. blood cult neg 2. Candidiasis: in intertriginous areas, severe, prob worsened by frequent steroid use for COPD. on nystatin 3. COPD: increased, non-prod cough, causing worse SOB temporarily. CXR with ' stable increased vascular congestion'. 4. CHF: chronic diastolic. mild peripheral edema, increased SOB. LOS I&O about +7L, despite bid lasix IV. increase dose temporarily 40->80 bid 5. REY on CKD (baseline creat ~ 1.5): 2/2 vasomotor etiology. recovered to about baseline. appreciate Dr Saab's input and help w/ management 6. HTN: well controlled on home regimen 7. Gout: no acute issues. on allopurinol 8. Obesity with mild to mod PC M 9. Dispo: respir status slowly improving. rehab early next week Vitals Vitals Vital Signs Date Time Temp Pulse Resp B/P Pulse Ox O2 Delivery O2 Flow Rate FiO2 12/17/16 11:34 97.9 75 20 123/56 97 Nasal Cannula 2.0 97.9 Labs LABS Laboratory Tests Test 12/16/16 17:04 12/16/16 20:53 12/17/16 04:25 12/17/16 07:11 Glucose (Fingerstick) 145mg/dL (70-99) 138mg/dL (70-99) 103mg/dL (70-99) White Blood Count 9.9x10^3/uL (4.0-11.0) Red Blood Count 2.90x10^6/uL (3.50-5.40) Hemoglobin 8.5g/dL (12.0-15.5) Hematocrit 27.4% (36.0-47.0) Mean Corpuscular Volume 95fL (79-100) Mean Corpuscular Hemoglobin 29pg (25-35) Mean Corpuscular Hemoglobin Concent 31g/dL (31-37) Red Cell Distribution Width 17.5% (11.5-14.5) Platelet Count 168x10^3/uL (140-400) Neutrophils (%) (Auto) 70% (31-73) Lymphocytes (%) (Auto) 23% (24-48) Monocytes (%) (Auto) 6% (0-9) Eosinophils (%) (Auto) 1% (0-3) Basophils (%) (Auto) 0% (0-3) Neutrophils # (Auto) 6.9x10^3uL (1.8-7.7) Lymphocytes # (Auto) 2.3x10^3/uL (1.0-4.8) Monocytes # (Auto) 0.6x10^3/uL (0.0-1.1) Eosinophils # (Auto) 0.1x10^3/uL (0.0-0.7) Basophils # (Auto) 0.0x10^3/uL (0.0-0.2) Sodium Level 144mmol/L (136-145) Potassium Level 3.5mmol/L (3.5-5.1) Chloride Level 103mmol/L (98-107) Carbon Dioxide Level 36mmol/L (21-32) Anion Gap 5 (6-14) Blood Urea Nitrogen 40mg/dL (7-20) Creatinine 1.3mg/dL (0.6-1.0) Estimated GFR (Cockcroft-Gault) 39.6 Glucose Level 97mg/dL (70-99) Calcium Level 7.9mg/dL (8.5-10.1) Review of Systems Review of Systems in good spirits, no c/o COLLETTE FALL MD Dec 17, 2016 11:42
--- NOTE | 2016-12-17 12:21 | PDOC ---
SUBJECTIVE ROS CKD III feeling OK x for min weak CVS: no Orthopnea, no CP RESP: min SOB, no MATOS GI: no Nausea, no Vomiting : no Dysuria, no Urgency OBJECTIVE Vital Signs Vital Signs Date Time Temp Pulse Resp B/P Pulse Ox O2 Delivery O2 Flow Rate FiO2 12/17/16 11:34 97.9 75 20 123/56 97 Nasal Cannula 2.0 97.9 I & 0 Intake and Output 12/17/16 07:00 Intake Total 1300 ml Output Total 2550 ml Balance -1250 ml Intake Oral 1300 ml Output Urine Total 2550 ml # Voids 2 PHYSICAL EXAM Physical Exam General Appearance: Awake Alert Oriented x 3 In no Distress Eyes: VIsion Unchanged Conjunctiva Normal EN: No EN Drainage Mucous Memb. dry Neck: no JVD min JVP Supple no Thyromegaly CVS: S1 S2 ? soft Murmur No Gallop No Rub +3 Edema Resp: few Rales no Rhonchi no Acc. Muscle use GI: BAS +ve NO Bruit Non Tender Non Distended : no CVA tenderness; no Suprapubic Tenderness Assessment & Plan ? subj Oliguria - UO is better after restarting IV Lasix CKD III - follows with Dr Le, basline is ~ 1.3. 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 need RHC too, Nuc Med scan then Kidney bx if needed COMMENT/RELEVANT DATA Meds Current Medications Medications (Trade) Dose Ordered Sig/Eva Start Time Stop Time Status Last Admin Dose Admin Acetaminophen (Tylenol) 650 mg PRN Q4HRS PRN 12/08/16 21:30 12/09/16 21:29 DC Albuterol Sulfate (Ventolin Neb Soln) 2.5 mg RTQID 12/09/16 12:00 12/09/16 12:00 DC Albuterol/ Ipratropium 3 ml 3 ml RTQID 12/09/16 12:00 12/17/16 07:34 3 ML Allopurinol (Zyloprim) 100 mg DAILY 12/09/16 09:00 12/17/16 09:04 100 MG Alprazolam (Xanax) 0.25 mg PRN Q8HRS PRN 12/13/16 13:45 Aspirin (Ecotrin) 81 mg DAILY08 12/15/16 06:01 12/17/16 08:59 81 MG Atorvastatin Calcium (Lipitor) 5 mg QHS 12/15/16 21:00 12/16/16 20:39 5 MG Budesonide (Pulmicort) 0.5 mg RTBID 12/09/16 08:30 12/17/16 07:34 0.5 MG Carvedilol (Coreg) 6.25 mg BIDWMEALS 12/15/16 08:00 12/17/16 09:00 6.25 MG Ceftriaxone Sodium 1 gm/ Sodium Chloride 50 ml @ 100 mls/hr Q24H 12/09/16 20:00 12/13/16 09:59 DC 12/12/16 19:36 100 MLS/HR Ceftriaxone Sodium 50 ml @ 100 mls/hr 1X ONCE 12/08/16 20:15 12/08/16 20:44 DC 12/08/16 20:23 100 MLS/HR Darbepoetin Krzysztof (Aranesp) 60 mcg WEEKLYHS 12/09/16 21:00 12/16/16 20:38 60 MCG Dextrose 12.5 gm PRN Q15MIN PRN 12/09/16 08:30 UNV Fentanyl Citrate (Fentanyl 2ml Vial) 25 mcg PRN Q15MIN PRN 12/08/16 19:45 12/09/16 19:44 DC 12/08/16 20:37 25 MCG Fentanyl Citrate 50 mcg 50 mcg PRN Q2HR PRN 12/08/16 21:30 12/09/16 21:29 DC Ferrous Sulfate (Feosol) 325 mg STK-MED ONCE 12/17/16 08:12 12/17/16 08:13 DC Fluconazole (Diflucan) 100 mg STK-MED ONCE 12/17/16 08:11 12/17/16 08:12 DC Fluconazole/ Sodium Chloride (Diflucan 200mg/ 100ml Premix) 100 ml @ 100 mls/hr Q24H 12/09/16 21:00 3/28/17 09:59 DC 12/12/16 20:46 100 MLS/HR Fluconazole/ Sodium Chloride (Diflucan 400mg/ 200ml Premix) 200 ml @ 100 mls/hr Q24H 12/08/16 21:00 12/08/16 22:00 DC 12/08/16 21:00 100 MLS/HR Furosemide (Lasix) 80 mg [id number] 12/16/16 09:00 12/17/16 09:01 80 MG Furosemide 40 mg 40 mg 1X ONCE 12/12/16 12:45 12/12/16 12:46 DC 12/12/16 12:32 40 MG Guaifenesin (Mucinex) 1,200 mg 1X ONCE 12/10/16 14:30 12/10/16 14:32 DC 12/10/16 15:17 1,200 MG Heparin Sodium (Porcine) 10,000 unit STK-MED ONCE 12/09/16 09:34 12/09/16 09:35 DC Heparin Sodium/ Sodium Chloride 60 unit 1X ONCE 12/09/16 09:15 12/09/16 09:16 DC 12/09/16 11:07 60 UNIT Hydrocortisone Sodium Succinate (Solu-Cortef) 25 mg Q8HRS 12/12/16 14:00 12/15/16 15:27 DC 12/15/16 06:19 25 MG Insulin Aspart (Novolog) 0-7 UNITS TIDWMEALS 12/09/16 12:00 12/11/16 09:18 3 UNITS Lidocaine/Sodium Bicarbonate (Buffered Lidocaine 1%) 3 ml 1X ONCE 12/09/16 09:15 12/09/16 09:16 DC 12/09/16 11:08 3 ML Lisinopril (Prinivil) 30 mg DAILY 12/09/16 09:00 12/09/16 09:00 DC Lorazepam (Ativan) 0.5 mg PRN Q4HRS PRN 12/10/16 17:30 12/10/16 17:36 0.5 MG Magnesium Sulfate/ Dextrose (Magnesium Sulfate PREMIX 2GM) 50 ml @ 25 mls/hr 1X ONCE 12/12/16 15:00 12/12/16 16:59 DC 12/12/16 16:55 25 MLS/HR Montelukast Sodium (Singulair) 10 mg QHS 12/11/16 21:00 12/16/16 20:39 10 MG Morphine Sulfate 2 mg PRN Q2HR PRN 12/09/16 08:00 12/10/16 15:56 2 MG Norepinephrine Bitartrate/Sodium Chloride (Levophed Vial/ Iv Sodium Chloride 0.9% 250ml) 258 ml @ 0 mls/hr CONT PRN 12/09/16 13:30 12/12/16 17:33 DC Nystatin (Nystop) 1 jaison QID 12/09/16 09:00 12/17/16 09:03 1 JAISON Nystatin 1 jaison 1 jaison BID 12/08/16 20:15 12/09/16 08:28 DC 12/08/16 20:24 1 JAISON Ondansetron HCl (Zofran) 4 mg PRN Q6HRS PRN 12/15/16 06:01 Oxycodone/ Acetaminophen (Percocet 5/325) 1 tab PRN Q6HRS PRN 12/09/16 08:00 Pantoprazole Sodium (Protonix) 40 mg DAILYAC 12/16/16 06:11 12/17/16 08:59 40 MG Pantoprazole Sodium 40 mg 40 mg DAILYAC 12/09/16 11:00 12/16/16 06:11 DC 12/15/16 10:11 40 MG Prednisone (Prednisone) 20 mg DAILY 12/16/16 09:00 12/17/16 09:00 20 MG Sodium Bicarbonate/ Dextrose 1,150 ml @ 100 mls/hr [id number] 12/09/16 09:00 12/11/16 17:35 DC 12/10/16 20:35 100 MLS/HR Sodium Chloride 500 ml @ 0 mls/hr QID PRN 12/09/16 08:45 Sodium Chloride (Iv Sodium Chloride 0.9% 1000ml Bag) 1,000 ml @ 125 mls/hr Q8H 12/08/16 21:30 12/09/16 08:48 DC 12/09/16 05:42 125 MLS/HR Vancomycin HCl 1.75 gm/Sodium Chloride 500 ml @ 250 mls/hr 1X ONCE 12/08/16 20:30 12/08/16 22:29 DC 12/08/16 20:19 250 MLS/HR Vancomycin HCl 1 each 1 each 1X ONCE 12/10/16 20:00 12/10/16 20:00 DC Zinc Acetate/ Diphenhydramine (Benadryl Topical) 1 jaison PRN BID PRN 12/09/16 08:30 Lab Laboratory Tests Test 12/16/16 17:04 12/16/16 20:53 12/17/16 04:25 12/17/16 07:11 Glucose (Fingerstick) 145mg/dL (70-99) 138mg/dL (70-99) 103mg/dL (70-99) White Blood Count 9.9x10^3/uL (4.0-11.0) Red Blood Count 2.90x10^6/uL (3.50-5.40) Hemoglobin 8.5g/dL (12.0-15.5) Hematocrit 27.4% (36.0-47.0) Mean Corpuscular Volume 95fL (79-100) Mean Corpuscular Hemoglobin 29pg (25-35) Mean Corpuscular Hemoglobin Concent 31g/dL (31-37) Red Cell Distribution Width 17.5% (11.5-14.5) Platelet Count 168x10^3/uL (140-400) Neutrophils (%) (Auto) 70% (31-73) Lymphocytes (%) (Auto) 23% (24-48) Monocytes (%) (Auto) 6% (0-9) Eosinophils (%) (Auto) 1% (0-3) Basophils (%) (Auto) 0% (0-3) Neutrophils # (Auto) 6.9x10^3uL (1.8-7.7) Lymphocytes # (Auto) 2.3x10^3/uL (1.0-4.8) Monocytes # (Auto) 0.6x10^3/uL (0.0-1.1) Eosinophils # (Auto) 0.1x10^3/uL (0.0-0.7) Basophils # (Auto) 0.0x10^3/uL (0.0-0.2) Sodium Level 144mmol/L (136-145) Potassium Level 3.5mmol/L (3.5-5.1) Chloride Level 103mmol/L (98-107) Carbon Dioxide Level 36mmol/L (21-32) Anion Gap 5 (6-14) Blood Urea Nitrogen 40mg/dL (7-20) Creatinine 1.3mg/dL (0.6-1.0) Estimated GFR (Cockcroft-Gault) 39.6 Glucose Level 97mg/dL (70-99) Calcium Level 7.9mg/dL (8.5-10.1) Test 12/17/16 11:47 Glucose (Fingerstick) 128mg/dL (70-99) HARLAN NORTON MD Dec 17, 2016 12:21
[2016-12-17] MEDS: ALBUMIN HUMAN 25% 100 ML IV SCH (14:42)
--- NOTE | 2016-12-17 14:55 | RAD ---
EXAM: Grayscale and color Doppler abdomen sonogram. HISTORY: Lower leg edema. Possible IVC thrombus. TECHNIQUE: Grayscale and color Doppler sonographic imaging of the abdomen with spectral waveform analysis was performed. COMPARISON: None. FINDINGS: There are patent hepatic and portal veins with normal directional flow. The splenic vein and inferior vena cava are patent. There is no evidence of abdominal ascites, a recanalized umbilical vein or varices. IMPRESSION: 1. Patent IVC. 2. Patent hepatic and portal veins with normal directional flow. 3. Patent splenic vein.
[2016-12-17] MEDS ORDERED: DEXTROSE 50% 25 GM / 50ML DISP.SYRIN. IV PRN (15:00)
[2016-12-17 15:37] VITALS: BP 129/58
[2016-12-17 19:00] VITALS: BP 131/59
[2016-12-17] MEDS: MONTELUKAST SODIUM 10 MG TABLET. PO SCH (22:23)
[2016-12-17] MEDS: ATORVASTATIN CALCIUM 10 MG TABLET. PO SCH (22:23)
[2016-12-17 23:00] VITALS: BP 136/51
[2016-12-18 03:00] VITALS: BP 126/53
[2016-12-18 05:53] LABS: BASO # 0.1 x10^3/uL (0.0-0.2); BASO % 1 % (0-3); EOS % 1 % (0-3); HEMATOCRIT 26.4 % (36.0-47.0); HEMOGLOBIN 8.3 g/dL (12.0-15.5); LYMPH # 2.1 x10^3/uL (1.0-4.8); LYMPH % 22 % (24-48); MEAN CORPUSCULAR HEMOGLOBIN 29 pg (25-35); MEAN CORPUSCULAR HGB CONC 31 g/dL (31-37); MEAN CORPUSCULAR VOLUME 94 fL (79-100); MONO % 7 % (0-9); NEUT % 69 % (31-73); PLATELET COUNT 156 x10^3/uL (140-400); RED BLOOD COUNT 2.83 x10^6/uL (3.50-5.40); RED CELL DISTRIBUTION WIDTH 17.7 % (11.5-14.5); WHITE BLOOD COUNT 9.4 x10^3/uL (4.0-11.0)
[2016-12-18 06:15] LABS: CALCIUM 8.2 mg/dL (8.5-10.1); CREATININE 1.1 mg/dL (0.6-1.0); POTASSIUM 3.8 mmol/L (3.5-5.1)
[2016-12-18 07:00] VITALS: BP 124/61
[2016-12-18] MEDS: INSULIN ASPART 300 UNITS/3 ML INSULN.PEN SQ SCH ×3 (07:39→16:39)
[2016-12-18] MEDS: BUDESONIDE 0.5 MG/2 ML NEBU. NEB SCH ×2 (08:00→19:45)
[2016-12-18] MEDS: IPRATRPIUM/ALBUTEROL 0.5/2.5MG 3 ML NEBU. NEB SCH ×4 (08:00→19:45)
[2016-12-18] MEDS: ALBUMIN HUMAN 25% 100 ML IV SCH ×2 (08:41→14:53)
[2016-12-18] MEDS: FLUCONAZOLE 100 MG TABLET. PO SCH (08:42)
[2016-12-18] MEDS: ALLOPURINOL 100 MG TABLET. PO SCH (08:43)
[2016-12-18] MEDS: CARVEDILOL 6.25 MG TABLET. PO SCH ×2 (08:43→16:39)
[2016-12-18] MEDS: ASPIRIN ENTERIC COATED 81 MG TABLET.DR. PO SCH (08:43)
[2016-12-18] MEDS: PREDNISONE 20 MG TABLET PO SCH (08:43)
[2016-12-18] MEDS: FERROUS SULFATE 325 MG TABLET. PO SCH (08:43)
[2016-12-18] MEDS: FUROSEMIDE 100 MG/10 ML VIAL. IVP SCH ×2 (08:43→14:53)
[2016-12-18] MEDS: GUAIFENESIN ER 600 MG TABLET.ER PO SCH ×2 (08:43→20:31)
[2016-12-18] MEDS: PANTOPRAZOLE 40 MG TABLET.DR. PO SCH (08:44)
[2016-12-18] MEDS: NYSTATIN TOPICAL POWDER 15GM BOTTLE. TP SCH ×4 (08:44→20:32)
[2016-12-18] MEDS: HEPARIN PF for SUB-Q USE 5,000 UNIT/0.5 ML VIAL. SQ SCH ×2 (08:49→20:40)
[2016-12-18 11:02] VITALS: BP 121/59
[2016-12-18 15:30] VITALS: BP 133/57
--- NOTE | 2016-12-18 18:10 | PDOC ---
PROGRESS NOTES Chief Complaint Chief Complaint Sepsis ASSESSMENT AND PLAN: 1. Sepsis: resolved. blood cult neg 2. Candidiasis: in intertriginous areas, severe, prob worsened by frequent steroid use for COPD. on nystatin, add diflucan 3. COPD: increased, non-prod cough, causing worse SOB temporarily. CXR with ' stable increased vascular congestion'. 4. CHF: chronic diastolic. mild-mod peripheral edema, increased SOB. increase dose temporarily 40->80 IV bid, with improvement. monitor I&O 5. REY on CKD (baseline creat ~ 1.5): 2/2 vasomotor etiology. recovered to about baseline. appreciate Dr Saab's input and help w/ management 6. HTN: well controlled on home regimen 7. Gout: no acute issues. on allopurinol 8. Obesity with mild to mod PC M 9. Dispo: respir status slowly improving. rehab early next week Vitals Vitals Vital Signs Date Time Temp Pulse Resp B/P Pulse Ox O2 Delivery O2 Flow Rate FiO2 12/18/16 16:39 73 121/59 12/18/16 15:48 96 Nasal Cannula 2.0 12/18/16 15:30 98.4 18 98.4 Physical Exam General: Alert, Oriented X3, Cooperative Heart: Regular rate Lungs: Clear Abdomen: Normal bowel sounds, Soft, No tenderness Extremities: Other (1-2+ LE edema) Skin: No significant lesion Labs LABS Laboratory Tests Test 12/17/16 20:36 12/18/16 05:35 12/18/16 07:16 12/18/16 16:38 Glucose (Fingerstick) 127mg/dL (70-99) 101mg/dL (70-99) 132mg/dL (70-99) White Blood Count 9.4x10^3/uL (4.0-11.0) Red Blood Count 2.83x10^6/uL (3.50-5.40) Hemoglobin 8.3g/dL (12.0-15.5) Hematocrit 26.4% (36.0-47.0) Mean Corpuscular Volume 94fL (79-100) Mean Corpuscular Hemoglobin 29pg (25-35) Mean Corpuscular Hemoglobin Concent 31g/dL (31-37) Red Cell Distribution Width 17.7% (11.5-14.5) Platelet Count 156x10^3/uL (140-400) Neutrophils (%) (Auto) 69% (31-73) Lymphocytes (%) (Auto) 22% (24-48) Monocytes (%) (Auto) 7% (0-9) Eosinophils (%) (Auto) 1% (0-3) Basophils (%) (Auto) 1% (0-3) Neutrophils # (Auto) 6.5x10^3uL (1.8-7.7) Lymphocytes # (Auto) 2.1x10^3/uL (1.0-4.8) Monocytes # (Auto) 0.7x10^3/uL (0.0-1.1) Eosinophils # (Auto) 0.1x10^3/uL (0.0-0.7) Basophils # (Auto) 0.1x10^3/uL (0.0-0.2) Sodium Level 143mmol/L (136-145) Potassium Level 3.8mmol/L (3.5-5.1) Chloride Level 104mmol/L (98-107) Carbon Dioxide Level 37mmol/L (21-32) Anion Gap 2 (6-14) Blood Urea Nitrogen 35mg/dL (7-20) Creatinine 1.1mg/dL (0.6-1.0) Estimated GFR (Cockcroft-Gault) 48.0 Glucose Level 98mg/dL (70-99) Calcium Level 8.2mg/dL (8.5-10.1) Review of Systems Review of Systems breathing ok, legs still heavy. cough dry Assessment and Plan Assessmemt and Plan Problems Medical Problems: (1) Acute renal failure Status: Acute (2) Cellulitis Status: Acute (3) Severe sepsis Status: Acute (4) Yeast dermatitis Status: Acute Problems: COLLETTE FALL MD Dec 18, 2016 18:10
[2016-12-18 19:00] VITALS: BP 125/50
--- NOTE | 2016-12-18 19:05 | PDOC ---
SUBJECTIVE ROS CKD III/ Edema Feeling fine x for edema CVS: no Orthopnea, no CP RESP: no SOB, no MATOS GI: no Nausea, no Vomiting : no Dysuria, no Urgency OBJECTIVE Vital Signs Vital Signs Date Time Temp Pulse Resp B/P Pulse Ox O2 Delivery O2 Flow Rate FiO2 12/18/16 16:39 73 121/59 12/18/16 15:48 96 Nasal Cannula 2.0 12/18/16 15:30 98.4 18 98.4 I & 0 Intake and Output 12/18/16 07:00 Intake Total 1110 ml Output Total 3000 ml Balance -1890 ml Intake Oral 1110 ml Output Urine Total 3000 ml # Voids 2 # Bowel Movements 1 PHYSICAL EXAM Physical Exam General Appearance: Awake Alert Oriented x 3 In no Distress Eyes: VIsion Unchanged Conjunctiva Normal EN: No EN Drainage Mucous Memb. dry Neck: no JVD min JVP Supple no Thyromegaly CVS: S1 S2 ? soft Murmur No Gallop No Rub +3 Edema Resp: few Rales no Rhonchi no Acc. Muscle use GI: BAS +ve NO Bruit Non Tender Non Distended : no CVA tenderness; no Suprapubic Tenderness Assessment & Plan CKD III - follows with Dr Le, basline is ~ 1.3. I suspect her Renal functio nis worse unless edema can be attributed to RHF, Pulm HTN (from ? Pulm fibrobsis) vs liver dz. Creat today is 1.1 which is much better then previous ( ? True) Anemia: IV Iron, start Epogen Transfuse as needed. 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) vs liver dz; -ve Duplex of portal system and IVC for Thrombosis etc. - may need RHC too, - ct -ve fluid balance with diuresis as ordered. CHF by Hx - no systolic Dysfunction noted on ECHO Previous CT Chest : 1. Stable nodular subpleural parenchymal opacity in the right apex with an additional 9.6 mm nodule in the lateral left lower lobe appears stable since 2012. 2. 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 3. Emphysematous changes. COMMENT/RELEVANT DATA Meds Current Medications Medications (Trade) Dose Ordered Sig/Eva Start Time Stop Time Status Last Admin Dose Admin Acetaminophen (Tylenol) 650 mg PRN Q4HRS PRN 12/08/16 21:30 12/09/16 21:29 DC Albumin Human 100 ml @ 100 mls/hr BID@0830,1330 12/17/16 13:30 12/20/16 09:29 12/18/16 14:53 100 MLS/HR Albuterol Sulfate (Ventolin Neb Soln) 2.5 mg RTQID 12/09/16 12:00 12/09/16 12:00 DC Albuterol/ Ipratropium 3 ml 3 ml RTQID 12/09/16 12:00 12/18/16 15:46 3 ML Allopurinol (Zyloprim) 100 mg DAILY 12/09/16 09:00 12/18/16 08:43 100 MG Alprazolam (Xanax) 0.25 mg PRN Q8HRS PRN 12/13/16 13:45 Aspirin (Ecotrin) 81 mg DAILY08 12/15/16 06:01 12/18/16 08:43 81 MG Atorvastatin Calcium (Lipitor) 5 mg QHS 12/15/16 21:00 12/17/16 22:23 5 MG Budesonide (Pulmicort) 0.5 mg RTBID 12/09/16 08:30 12/18/16 08:00 0.5 MG Carvedilol (Coreg) 6.25 mg BIDWMEALS 12/15/16 08:00 12/18/16 16:39 6.25 MG Ceftriaxone Sodium 1 gm/ Sodium Chloride 50 ml @ 100 mls/hr Q24H 12/09/16 20:00 12/13/16 09:59 DC 12/12/16 19:36 100 MLS/HR Ceftriaxone Sodium 50 ml @ 100 mls/hr 1X ONCE 12/08/16 20:15 12/08/16 20:44 DC 12/08/16 20:23 100 MLS/HR Darbepoetin Krzysztof (Aranesp) 60 mcg WEEKLYHS 12/09/16 21:00 12/16/16 20:38 60 MCG Dextrose (Dextrose 50%-Water Syringe) 12.5 gm PRN Q15MIN PRN 12/17/16 15:00 Fentanyl Citrate (Fentanyl 2ml Vial) 25 mcg PRN Q15MIN PRN 12/08/16 19:45 12/09/16 19:44 DC 12/08/16 20:37 25 MCG Fentanyl Citrate 50 mcg 50 mcg PRN Q2HR PRN 12/08/16 21:30 12/09/16 21:29 DC Ferrous Sulfate (Feosol) 325 mg DAILY08 12/18/16 08:00 12/18/16 08:43 325 MG Ferrous Sulfate 325 mg 325 mg STK-MED ONCE 12/17/16 08:12 12/17/16 08:13 DC Fluconazole (Diflucan) 200 mg DAILY 12/18/16 09:00 12/18/16 08:42 200 MG Fluconazole/ Sodium Chloride (Diflucan 200mg/ 100ml Premix) 100 ml @ 100 mls/hr Q24H 12/09/16 21:00 12/13/16 09:59 DC 12/12/16 20:46 100 MLS/HR Fluconazole/ Sodium Chloride (Diflucan 400mg/ 200ml Premix) 200 ml @ 100 mls/hr Q24H 12/08/16 21:00 12/08/16 22:00 DC 12/08/16 21:00 100 MLS/HR Furosemide (Lasix) 80 mg [id number] 12/16/16 09:00 12/18/16 14:53 80 MG Furosemide 40 mg 40 mg 1X ONCE 12/12/16 12:45 12/12/16 12:46 DC 12/12/16 12:32 40 MG Guaifenesin (Mucinex) 1,200 mg 1X ONCE 12/10/16 14:30 12/10/16 14:32 DC 12/10/16 15:17 1,200 MG Heparin Sodium (Porcine) 10,000 unit STK-MED ONCE 12/09/16 09:34 12/09/16 09:35 DC Heparin Sodium/ Sodium Chloride 60 unit 1X ONCE 12/09/16 09:15 12/09/16 09:16 DC 12/09/16 11:07 60 UNIT Hydrocortisone Sodium Succinate (Solu-Cortef) 25 mg Q8HRS 12/12/16 14:00 12/15/16 15:27 DC 12/15/16 06:19 25 MG Insulin Aspart (Novolog) 0-7 UNITS TIDWMEALS 12/09/16 12:00 12/11/16 09:18 3 UNITS Iron Sucrose/ Sodium Chloride (Venofer/Iv Sodium Chloride 0.9% 100ml) 110 ml @ 55 mls/hr 3X/WEEK 12/19/16 09:00 12/28/16 10:59 Lidocaine/Sodium Bicarbonate (Buffered Lidocaine 1%) 3 ml 1X ONCE 12/09/16 09:15 12/09/16 09:16 DC 12/09/16 11:08 3 ML Lisinopril (Prinivil) 30 mg DAILY 12/09/16 09:00 12/09/16 09:00 DC Lorazepam (Ativan) 0.5 mg PRN Q4HRS PRN 12/10/16 17:30 12/10/16 17:36 0.5 MG Magnesium Sulfate/ Dextrose (Magnesium Sulfate PREMIX 2GM) 50 ml @ 25 mls/hr 1X ONCE 12/12/16 15:00 12/12/16 16:59 DC 12/12/16 16:55 25 MLS/HR Montelukast Sodium (Singulair) 10 mg QHS 12/11/16 21:00 12/17/16 22:23 10 MG Morphine Sulfate 2 mg PRN Q2HR PRN 12/09/16 08:00 12/10/16 15:56 2 MG Norepinephrine Bitartrate/Sodium Chloride (Levophed Vial/ Iv Sodium Chloride 0.9% 250ml) 258 ml @ 0 mls/hr CONT PRN 12/09/16 13:30 12/12/16 17:33 DC Nystatin (Nystop) 1 jaison QID 12/09/16 09:00 12/18/16 16:40 1 JAISON Nystatin 1 jaison 1 jaison BID 12/08/16 20:15 12/09/16 08:28 DC 12/08/16 20:24 1 JAISON Ondansetron HCl (Zofran) 4 mg PRN Q6HRS PRN 12/15/16 06:01 Oxycodone/ Acetaminophen (Percocet 5/325) 1 tab PRN Q6HRS PRN 12/09/16 08:00 Pantoprazole Sodium (Protonix) 40 mg DAILYAC 12/16/16 06:11 12/18/16 08:44 40 MG Pantoprazole Sodium 40 mg 40 mg DAILYAC 12/09/16 11:00 12/16/16 06:11 DC 12/15/16 10:11 40 MG Prednisone (Prednisone) 20 mg DAILY 12/16/16 09:00 12/18/16 08:43 20 MG Sodium Bicarbonate/ Dextrose 1,150 ml @ 100 mls/hr [id number] 12/09/16 09:00 12/11/16 17:35 DC 12/10/16 20:35 100 MLS/HR Sodium Chloride 500 ml @ 0 mls/hr QID PRN 12/09/16 08:45 12/17/16 12:22 DC Sodium Chloride (Iv Sodium Chloride 0.9% 1000ml Bag) 1,000 ml @ 125 mls/hr Q8H 12/08/16 21:30 12/09/16 08:48 DC 12/09/16 05:42 125 MLS/HR Vancomycin HCl 1.75 gm/Sodium Chloride 500 ml @ 250 mls/hr 1X ONCE 12/08/16 20:30 12/08/16 22:29 DC 12/08/16 20:19 250 MLS/HR Vancomycin HCl 1 each 1 each 1X ONCE 12/10/16 20:00 12/10/16 20:00 DC Zinc Acetate/ Diphenhydramine (Benadryl Topical) 1 jaison PRN BID PRN 12/09/16 08:30 Lab Laboratory Tests Test 12/17/16 20:36 12/18/16 05:35 12/18/16 07:16 12/18/16 16:38 Glucose (Fingerstick) 127mg/dL (70-99) 101mg/dL (70-99) 132mg/dL (70-99) White Blood Count 9.4x10^3/uL (4.0-11.0) Red Blood Count 2.83x10^6/uL (3.50-5.40) Hemoglobin 8.3g/dL (12.0-15.5) Hematocrit 26.4% (36.0-47.0) Mean Corpuscular Volume 94fL (79-100) Mean Corpuscular Hemoglobin 29pg (25-35) Mean Corpuscular Hemoglobin Concent 31g/dL (31-37) Red Cell Distribution Width 17.7% (11.5-14.5) Platelet Count 156x10^3/uL (140-400) Neutrophils (%) (Auto) 69% (31-73) Lymphocytes (%) (Auto) 22% (24-48) Monocytes (%) (Auto) 7% (0-9) Eosinophils (%) (Auto) 1% (0-3) Basophils (%) (Auto) 1% (0-3) Neutrophils # (Auto) 6.5x10^3uL (1.8-7.7) Lymphocytes # (Auto) 2.1x10^3/uL (1.0-4.8) Monocytes # (Auto) 0.7x10^3/uL (0.0-1.1) Eosinophils # (Auto) 0.1x10^3/uL (0.0-0.7) Basophils # (Auto) 0.1x10^3/uL (0.0-0.2) Sodium Level 143mmol/L (136-145) Potassium Level 3.8mmol/L (3.5-5.1) Chloride Level 104mmol/L (98-107) Carbon Dioxide Level 37mmol/L (21-32) Anion Gap 2 (6-14) Blood Urea Nitrogen 35mg/dL (7-20) Creatinine 1.1mg/dL (0.6-1.0) Estimated GFR (Cockcroft-Gault) 48.0 Glucose Level 98mg/dL (70-99) Calcium Level 8.2mg/dL (8.5-10.1) HARLAN NORTON MD Dec 18, 2016 19:05
[2016-12-18] MEDS: MONTELUKAST SODIUM 10 MG TABLET. PO SCH (20:31)
[2016-12-18] MEDS: ATORVASTATIN CALCIUM 10 MG TABLET. PO SCH (20:31)
[2016-12-18] MEDS ORDERED: LORAZEPAM 2 MG/ML VIAL. IV PRN (22:28)
[2016-12-18 23:00] VITALS: BP 124/56
[2016-12-19 03:00] VITALS: BP 129/51
[2016-12-19 06:02] LABS: BASO # 0.1 x10^3/uL (0.0-0.2); BASO % 1 % (0-3); EOS % 1 % (0-3); HEMATOCRIT 25.8 % (36.0-47.0); HEMOGLOBIN 8.1 g/dL (12.0-15.5); LYMPH # 2.1 x10^3/uL (1.0-4.8); LYMPH % 19 % (24-48); MEAN CORPUSCULAR HEMOGLOBIN 29 pg (25-35); MEAN CORPUSCULAR HGB CONC 31 g/dL (31-37); MEAN CORPUSCULAR VOLUME 94 fL (79-100); MONO % 7 % (0-9); NEUT % 72 % (31-73); PLATELET COUNT 144 x10^3/uL (140-400); RED BLOOD COUNT 2.75 x10^6/uL (3.50-5.40); RED CELL DISTRIBUTION WIDTH 17.1 % (11.5-14.5); WHITE BLOOD COUNT 10.7 x10^3/uL (4.0-11.0)
[2016-12-19 06:16] LABS: CALCIUM 8.3 mg/dL (8.5-10.1); CREATININE 1.2 mg/dL (0.6-1.0); GFR 43.4; POTASSIUM 3.8 mmol/L (3.5-5.1)
[2016-12-19] MEDS: IPRATRPIUM/ALBUTEROL 0.5/2.5MG 3 ML NEBU. NEB SCH ×2 (07:28→11:35)
[2016-12-19] MEDS: BUDESONIDE 0.5 MG/2 ML NEBU. NEB SCH (07:28)
[2016-12-19 07:29] VITALS: BP 132/68
[2016-12-19] MEDS: INSULIN ASPART 300 UNITS/3 ML INSULN.PEN SQ SCH ×2 (08:00→11:46)
[2016-12-19] MEDS: PREDNISONE 20 MG TABLET PO SCH (08:40)
[2016-12-19] MEDS: FERROUS SULFATE 325 MG TABLET. PO SCH (08:40)
[2016-12-19] MEDS: FLUCONAZOLE 100 MG TABLET. PO SCH (08:40)
[2016-12-19] MEDS: CARVEDILOL 6.25 MG TABLET. PO SCH (08:40)
[2016-12-19] MEDS: ALBUMIN HUMAN 25% 100 ML IV SCH ×2 (08:40→11:46)
[2016-12-19] MEDS: PANTOPRAZOLE 40 MG TABLET.DR. PO SCH (08:40)
[2016-12-19] MEDS: ALLOPURINOL 100 MG TABLET. PO SCH (08:41)
[2016-12-19] MEDS: ASPIRIN ENTERIC COATED 81 MG TABLET.DR. PO SCH (08:41)
[2016-12-19] MEDS: GUAIFENESIN ER 600 MG TABLET.ER PO SCH (08:41)
[2016-12-19] MEDS: FUROSEMIDE 100 MG/10 ML VIAL. IVP SCH ×2 (08:41→11:47)
[2016-12-19] MEDS: NYSTATIN TOPICAL POWDER 15GM BOTTLE. TP SCH ×2 (08:42→11:46)
[2016-12-19] MEDS: HEPARIN PF for SUB-Q USE 5,000 UNIT/0.5 ML VIAL. SQ SCH (08:54)
[2016-12-19] MEDS ORDERED: IRON SUCROSE COMPLEX 200 MG in IV NORMAL SALINE 100ML 100 ML IV SCH (09:00)
--- NOTE | 2016-12-19 09:41 | PDOC ---
PULMONARY PROGRESS NOTES Subjective PT WITH COUGH AND WHEEZE Vitals Vital Signs Date Time Temp Pulse Resp B/P Pulse Ox O2 Delivery O2 Flow Rate FiO2 12/19/16 08:40 79 132/68 12/19/16 08:00 Nasal Cannula 2.0 12/19/16 07:29 97.7 20 96 97.7 Comments ros as mentioned as above other sys otherwise neg ROS: No Nausea, No Chest Pain, No Abdominal Pain General: Alert, No acute distress HEENT: Other (nc at perrl, throat nose clear) Lungs: Clear Cardiovascular: S1, S2 Abdomen: Soft, Non-tender Neuro Exam: Alert, Oriented Extremities: No Edema, Other Skin: Warm, Rash Labs Laboratory Tests Test 12/17/16 11:47 12/17/16 16:36 12/17/16 20:36 12/18/16 05:35 Glucose (Fingerstick) 128mg/dL (70-99) 140mg/dL (70-99) 127mg/dL (70-99) White Blood Count 9.4x10^3/uL (4.0-11.0) Red Blood Count 2.83x10^6/uL (3.50-5.40) Hemoglobin 8.3g/dL (12.0-15.5) Hematocrit 26.4% (36.0-47.0) Mean Corpuscular Volume 94fL (79-100) Mean Corpuscular Hemoglobin 29pg (25-35) Mean Corpuscular Hemoglobin Concent 31g/dL (31-37) Red Cell Distribution Width 17.7% (11.5-14.5) Platelet Count 156x10^3/uL (140-400) Neutrophils (%) (Auto) 69% (31-73) Lymphocytes (%) (Auto) 22% (24-48) Monocytes (%) (Auto) 7% (0-9) Eosinophils (%) (Auto) 1% (0-3) Basophils (%) (Auto) 1% (0-3) Neutrophils # (Auto) 6.5x10^3uL (1.8-7.7) Lymphocytes # (Auto) 2.1x10^3/uL (1.0-4.8) Monocytes # (Auto) 0.7x10^3/uL (0.0-1.1) Eosinophils # (Auto) 0.1x10^3/uL (0.0-0.7) Basophils # (Auto) 0.1x10^3/uL (0.0-0.2) Sodium Level 143mmol/L (136-145) Potassium Level 3.8mmol/L (3.5-5.1) Chloride Level 104mmol/L (98-107) Carbon Dioxide Level 37mmol/L (21-32) Anion Gap 2 (6-14) Blood Urea Nitrogen 35mg/dL (7-20) Creatinine 1.1mg/dL (0.6-1.0) Estimated GFR (Cockcroft-Gault) 48.0 Glucose Level 98mg/dL (70-99) Calcium Level 8.2mg/dL (8.5-10.1) Test 12/18/16 07:16 12/18/16 16:38 12/18/16 21:30 12/19/16 05:25 Glucose (Fingerstick) 101mg/dL (70-99) 132mg/dL (70-99) 124mg/dL (70-99) Sodium Level 144mmol/L (136-145) Potassium Level 3.8mmol/L (3.5-5.1) Chloride Level 103mmol/L (98-107) Carbon Dioxide Level 37mmol/L (21-32) Anion Gap 4 (6-14) Blood Urea Nitrogen 37mg/dL (7-20) Creatinine 1.2mg/dL (0.6-1.0) Estimated GFR (Cockcroft-Gault) 43.4 Glucose Level 103mg/dL (70-99) Calcium Level 8.3mg/dL (8.5-10.1) Test 12/19/16 05:45 12/19/16 08:04 White Blood Count 10.7x10^3/uL (4.0-11.0) Red Blood Count 2.75x10^6/uL (3.50-5.40) Hemoglobin 8.1g/dL (12.0-15.5) Hematocrit 25.8% (36.0-47.0) Mean Corpuscular Volume 94fL (79-100) Mean Corpuscular Hemoglobin 29pg (25-35) Mean Corpuscular Hemoglobin Concent 31g/dL (31-37) Red Cell Distribution Width 17.1% (11.5-14.5) Platelet Count 144x10^3/uL (140-400) Neutrophils (%) (Auto) 72% (31-73) Lymphocytes (%) (Auto) 19% (24-48) Monocytes (%) (Auto) 7% (0-9) Eosinophils (%) (Auto) 1% (0-3) Basophils (%) (Auto) 1% (0-3) Neutrophils # (Auto) 7.7x10^3uL (1.8-7.7) Lymphocytes # (Auto) 2.1x10^3/uL (1.0-4.8) Monocytes # (Auto) 0.7x10^3/uL (0.0-1.1) Eosinophils # (Auto) 0.1x10^3/uL (0.0-0.7) Basophils # (Auto) 0.1x10^3/uL (0.0-0.2) Glucose (Fingerstick) 110mg/dL (70-99) Laboratory Tests Test 12/18/16 16:38 12/18/16 21:30 12/19/16 05:25 12/19/16 05:45 Glucose (Fingerstick) 132mg/dL (70-99) 124mg/dL (70-99) Sodium Level 144mmol/L (136-145) Potassium Level 3.8mmol/L (3.5-5.1) Chloride Level 103mmol/L (98-107) Carbon Dioxide Level 37mmol/L (21-32) Anion Gap 4 (6-14) Blood Urea Nitrogen 37mg/dL (7-20) Creatinine 1.2mg/dL (0.6-1.0) Estimated GFR (Cockcroft-Gault) 43.4 Glucose Level 103mg/dL (70-99) Calcium Level 8.3mg/dL (8.5-10.1) White Blood Count 10.7x10^3/uL (4.0-11.0) Red Blood Count 2.75x10^6/uL (3.50-5.40) Hemoglobin 8.1g/dL (12.0-15.5) Hematocrit 25.8% (36.0-47.0) Mean Corpuscular Volume 94fL (79-100) Mean Corpuscular Hemoglobin 29pg (25-35) Mean Corpuscular Hemoglobin Concent 31g/dL (31-37) Red Cell Distribution Width 17.1% (11.5-14.5) Platelet Count 144x10^3/uL (140-400) Neutrophils (%) (Auto) 72% (31-73) Lymphocytes (%) (Auto) 19% (24-48) Monocytes (%) (Auto) 7% (0-9) Eosinophils (%) (Auto) 1% (0-3) Basophils (%) (Auto) 1% (0-3) Neutrophils # (Auto) 7.7x10^3uL (1.8-7.7) Lymphocytes # (Auto) 2.1x10^3/uL (1.0-4.8) Monocytes # (Auto) 0.7x10^3/uL (0.0-1.1) Eosinophils # (Auto) 0.1x10^3/uL (0.0-0.7) Basophils # (Auto) 0.1x10^3/uL (0.0-0.2) Test 12/19/16 08:04 Glucose (Fingerstick) 110mg/dL (70-99) Medications Active Scripts Medications Dose Route/Sig Days Date Category Bactrim Ds Tablet (Sulfamethoxazole/Trimethoprim) 1 Each Tablet 1 Tab PO BID 12/07/16 Rx Nystatin 15 Gm Powder 15 Gm TP BID 12/07/16 Rx Tylenol (Acetaminophen) 325 Mg Tablet 650 Mg PO TID PRN PRN 04/11/16 Reported Metformin Hcl 500 Mg Tablet 1 Tab PO TID 04/11/16 Reported Aspir 81 (Aspirin) 81 Mg Tablet.dr 1 Tab PO DAILY 04/11/16 Reported Lisinopril 10 Mg Tablet 30 Mg PO DAILY 12/11/15 Rx Allopurinol 100 Mg Tablet 1 Tab PO DAILY 11/16/15 Reported Iron Supplement (Ferrous Sulfate) 325 Mg Tablet 1 Tab PO DAILY 11/10/15 Reported Advair 250-50 Diskus (Fluticasone/Salmeterol) 1 Each Disk.w.dev 1 Puff IH BID 05/06/15 Reported Duoneb 0.5-3(2.5) Mg/3 Ml (Albuterol/Ipratropium) 3 Ml Ampul.neb 3 Ml IH Q4HRS PRN 05/06/15 Reported Pravastatin Sodium 10 Mg Tablet 1 Tab PO DAILY 09/16/14 Reported Carvedilol 6.25 Mg Tablet 1 Tab PO BID 09/16/14 Reported Furosemide 40 Mg Tablet 1 Tab PO DAILY 09/16/14 Reported Comments cxr reviewed, Increase in interstitial prominence relative to the previous exam suggesting interstitial edema or interstitial pneumonitis Impression . 1. [id number] respiratory failure, multifactorial in etiology. 2. Abnormal chest x-ray. 3. Shock, septic versus hypovolemic. 4. Excessive yeast infection. 5. Acute kidney injury on chronic renal insufficiency. 6. Leukocytosis. 7. Anemia. 8. Congestive heart failure. 9. Chronic obstructive pulmonary disease. 10. Urinary tract infection. 11. allergic rhinitis 12. Possible acute bronchitis Plan . at time resp status is worse lasix will add short course of pred 1. Titrate FiO2 to keep O2 saturation 92%. 2. Bronchodilator. 3. Inhaled corticosteroid. 4. taper Solu-Cortef. The patient has had on prednisone 5. Continue antibiotics per ID 6. Follow up cultures. 7. s/p Fluid resuscitation. 8. Nephrology and ID recommendations 9. Heparin for deep venous thrombosis prophylaxis. 10. protonix for stress ulcer prophylaxis. JESSE STRANGE MD Dec 19, 2016 09:41
[2016-12-19 10:17] VITALS: BP 127/61
--- NOTE | 2016-12-19 12:09 | PDOC ---
SUBJECTIVE ROS REY/ CKD III Doing OK overall; feels readyt ot ogo home ; swelling is much better overall CVS: no Orthopnea, no CP RESP: no SOB, no MATOS GI: no Nausea, no Vomiting : no Dysuria, no Urgency OBJECTIVE Vital Signs Vital Signs Date Time Temp Pulse Resp B/P Pulse Ox O2 Delivery O2 Flow Rate FiO2 12/19/16 11:35 93 Nasal Cannula 2.0 12/19/16 10:17 97.8 74 18 127/61 97.8 I & 0 Intake and Output 12/19/16 07:00 Intake Total 840 ml Output Total 2370 ml Balance -1530 ml Intake Oral 840 ml Output Urine Total 2370 ml # Bowel Movements 1 PHYSICAL EXAM Physical Exam General Appearance: Awake Alert Oriented x 3 In no Distress Eyes: VIsion Unchanged Conjunctiva Normal EN: No EN Drainage Mucous Memb. dry Neck: no JVD min JVP Supple no Thyromegaly CVS: S1 S2 ? soft Murmur No Gallop No Rub +2 Edema Resp: few Rales no Rhonchi no Acc. Muscle use GI: BS +ve NO Bruit Non Tender Non Distended : no CVA tenderness; no Suprapubic Tenderness Assessment & Plan CKD III - follows with Dr Le, basline is ~ 1.3. I suspect her Renal function is worse unless edema can be attributed to RHF, Pulm HTN (from ? Pulm fibrobsis) vs liver dz. Anemia: IV Iron, started Epogen Transfuse as needed. 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) vs liver dz; may need RHC as OP, - ct -ve fluid balance with diuresis as ordered, change IV to PO CHF by Hx - no systolic Dysfunction noted on ECHO OK to D/c From Renal standpoint and f/up with Dr le as OP COMMENT/RELEVANT DATA Meds Current Medications Medications (Trade) Dose Ordered Sig/Eva Start Time Stop Time Status Last Admin Dose Admin Acetaminophen (Tylenol) 650 mg PRN Q4HRS PRN 12/08/16 21:30 12/09/16 21:29 DC Albumin Human 100 ml @ 100 mls/hr BID@0830,1330 12/17/16 13:30 12/20/16 09:29 12/19/16 11:46 100 MLS/HR Albuterol Sulfate (Ventolin Neb Soln) 2.5 mg RTQID 12/09/16 12:00 12/09/16 12:00 DC Albuterol/ Ipratropium 3 ml 3 ml RTQID 12/09/16 12:00 12/19/16 11:35 3 ML Allopurinol (Zyloprim) 100 mg DAILY 12/09/16 09:00 12/19/16 08:41 100 MG Alprazolam (Xanax) 0.25 mg PRN Q8HRS PRN 12/13/16 13:45 Aspirin (Ecotrin) 81 mg DAILY08 12/15/16 06:01 12/19/16 08:41 81 MG Atorvastatin Calcium (Lipitor) 5 mg QHS 12/15/16 21:00 12/18/16 20:31 5 MG Budesonide (Pulmicort) 0.5 mg RTBID 12/09/16 08:30 12/19/16 07:28 0.5 MG Carvedilol (Coreg) 6.25 mg BIDWMEALS 12/15/16 08:00 12/19/16 08:40 6.25 MG Ceftriaxone Sodium 1 gm/ Sodium Chloride 50 ml @ 100 mls/hr Q24H 12/09/16 20:00 12/13/16 09:59 DC 12/12/16 19:36 100 MLS/HR Ceftriaxone Sodium 50 ml @ 100 mls/hr 1X ONCE 12/08/16 20:15 12/08/16 20:44 DC 12/08/16 20:23 100 MLS/HR Darbepoetin Krzysztof (Aranesp) 60 mcg WEEKLYHS 12/09/16 21:00 12/16/16 20:38 60 MCG Dextrose (Dextrose 50%-Water Syringe) 12.5 gm PRN Q15MIN PRN 12/17/16 15:00 Fentanyl Citrate (Fentanyl 2ml Vial) 25 mcg PRN Q15MIN PRN 12/08/16 19:45 12/09/16 19:44 DC 12/08/16 20:37 25 MCG Fentanyl Citrate 50 mcg 50 mcg PRN Q2HR PRN 12/08/16 21:30 12/09/16 21:29 DC Ferrous Sulfate (Feosol) 325 mg DAILY08 12/18/16 08:00 12/19/16 08:40 325 MG Ferrous Sulfate 325 mg 325 mg STK-MED ONCE 12/17/16 08:12 12/17/16 08:13 DC Fluconazole (Diflucan) 200 mg DAILY 12/18/16 09:00 12/19/16 08:40 200 MG Fluconazole/ Sodium Chloride (Diflucan 200mg/ 100ml Premix) 100 ml @ 100 mls/hr Q24H 12/09/16 21:00 12/13/16 09:59 DC 12/12/16 20:46 100 MLS/HR Fluconazole/ Sodium Chloride (Diflucan 400mg/ 200ml Premix) 200 ml @ 100 mls/hr Q24H 12/08/16 21:00 12/08/16 22:00 DC 12/08/16 21:00 100 MLS/HR Furosemide (Lasix) 80 mg [id number] 12/16/16 09:00 12/19/16 11:47 80 MG Furosemide 40 mg 40 mg 1X ONCE 12/12/16 12:45 12/12/16 12:46 DC 12/12/16 12:32 40 MG Guaifenesin (Mucinex) 1,200 mg 1X ONCE 12/10/16 14:30 12/10/16 14:32 DC 12/10/16 15:17 1,200 MG Heparin Sodium (Porcine) 10,000 unit STK-MED ONCE 12/09/16 09:34 12/09/16 09:35 DC Heparin Sodium/ Sodium Chloride 60 unit 1X ONCE 12/09/16 09:15 12/09/16 09:16 DC 12/09/16 11:07 60 UNIT Hydrocortisone Sodium Succinate (Solu-Cortef) 25 mg Q8HRS 12/12/16 14:00 12/15/16 15:27 DC 12/15/16 06:19 25 MG Insulin Aspart (Novolog) 0-7 UNITS TIDWMEALS 12/09/16 12:00 12/11/16 09:18 3 UNITS Iron Sucrose/ Sodium Chloride (Venofer/Iv Sodium Chloride 0.9% 100ml) 110 ml @ 55 mls/hr 3X/WEEK 12/19/16 09:00 12/28/16 10:59 12/19/16 08:42 55 MLS/HR Lidocaine/Sodium Bicarbonate (Buffered Lidocaine 1%) 3 ml 1X ONCE 12/09/16 09:15 12/09/16 09:16 DC 12/09/16 11:08 3 ML Lisinopril (Prinivil) 30 mg DAILY 12/09/16 09:00 12/09/16 09:00 DC Lorazepam (Ativan) 0.5 mg PRN Q4HRS PRN 12/18/16 22:28 Magnesium Sulfate/ Dextrose (Magnesium Sulfate PREMIX 2GM) 50 ml @ 25 mls/hr 1X ONCE 12/12/16 15:00 12/12/16 16:59 DC 12/12/16 16:55 25 MLS/HR Montelukast Sodium (Singulair) 10 mg QHS 12/11/16 21:00 12/18/16 20:31 10 MG Morphine Sulfate 2 mg PRN Q2HR PRN 12/09/16 08:00 12/10/16 15:56 2 MG Norepinephrine Bitartrate/Sodium Chloride (Levophed Vial/ Iv Sodium Chloride 0.9% 250ml) 258 ml @ 0 mls/hr CONT PRN 12/09/16 13:30 12/12/16 17:33 DC Nystatin (Nystop) 1 jaison QID 12/09/16 09:00 12/19/16 11:46 1 JAISON Nystatin 1 jaison 1 jaison BID 12/08/16 20:15 12/09/16 08:28 DC 12/08/16 20:24 1 JAISON Ondansetron HCl (Zofran) 4 mg PRN Q6HRS PRN 12/15/16 06:01 Oxycodone/ Acetaminophen (Percocet 5/325) 1 tab PRN Q6HRS PRN 12/09/16 08:00 Pantoprazole Sodium (Protonix) 40 mg DAILYAC 12/16/16 06:11 12/19/16 08:40 40 MG Pantoprazole Sodium 40 mg 40 mg DAILYAC 12/09/16 11:00 12/16/16 06:11 DC 12/15/16 10:11 40 MG Prednisone (Prednisone) 20 mg DAILY 12/16/16 09:00 12/19/16 08:40 20 MG Sodium Bicarbonate/ Dextrose 1,150 ml @ 100 mls/hr [id number] 12/09/16 09:00 12/11/16 17:35 DC 12/10/16 20:35 100 MLS/HR Sodium Chloride 500 ml @ 0 mls/hr QID PRN 12/09/16 08:45 12/17/16 12:22 DC Sodium Chloride (Iv Sodium Chloride 0.9% 1000ml Bag) 1,000 ml @ 125 mls/hr Q8H 12/08/16 21:30 12/09/16 08:48 DC 12/09/16 05:42 125 MLS/HR Vancomycin HCl 1.75 gm/Sodium Chloride 500 ml @ 250 mls/hr 1X ONCE 12/08/16 20:30 12/08/16 22:29 DC 12/08/16 20:19 250 MLS/HR Vancomycin HCl 1 each 1 each 1X ONCE 12/10/16 20:00 12/10/16 20:00 DC Zinc Acetate/ Diphenhydramine (Benadryl Topical) 1 jaison PRN BID PRN 12/09/16 08:30 Lab Laboratory Tests Test 12/18/16 16:38 12/18/16 21:30 12/19/16 05:25 12/19/16 05:45 Glucose (Fingerstick) 132mg/dL (70-99) 124mg/dL (70-99) Sodium Level 144mmol/L (136-145) Potassium Level 3.8mmol/L (3.5-5.1) Chloride Level 103mmol/L (98-107) Carbon Dioxide Level 37mmol/L (21-32) Anion Gap 4 (6-14) Blood Urea Nitrogen 37mg/dL (7-20) Creatinine 1.2mg/dL (0.6-1.0) Estimated GFR (Cockcroft-Gault) 43.4 Glucose Level 103mg/dL (70-99) Calcium Level 8.3mg/dL (8.5-10.1) White Blood Count 10.7x10^3/uL (4.0-11.0) Red Blood Count 2.75x10^6/uL (3.50-5.40) Hemoglobin 8.1g/dL (12.0-15.5) Hematocrit 25.8% (36.0-47.0) Mean Corpuscular Volume 94fL (79-100) Mean Corpuscular Hemoglobin 29pg (25-35) Mean Corpuscular Hemoglobin Concent 31g/dL (31-37) Red Cell Distribution Width 17.1% (11.5-14.5) Platelet Count 144x10^3/uL (140-400) Neutrophils (%) (Auto) 72% (31-73) Lymphocytes (%) (Auto) 19% (24-48) Monocytes (%) (Auto) 7% (0-9) Eosinophils (%) (Auto) 1% (0-3) Basophils (%) (Auto) 1% (0-3) Neutrophils # (Auto) 7.7x10^3uL (1.8-7.7) Lymphocytes # (Auto) 2.1x10^3/uL (1.0-4.8) Monocytes # (Auto) 0.7x10^3/uL (0.0-1.1) Eosinophils # (Auto) 0.1x10^3/uL (0.0-0.7) Basophils # (Auto) 0.1x10^3/uL (0.0-0.2) Test 12/19/16 08:04 Glucose (Fingerstick) 110mg/dL (70-99) HARLAN NORTON MD Dec 19, 2016 12:09
[2016-12-19] MEDS ORDERED: FLUC100T4 PO (12:13)
[2016-12-19] MEDS ORDERED: MONT10TA9 PO (12:15)
--- NOTE | 2016-12-19 12:17 | PDOC3 ---
Discharge Summary [facility] Date of Admission: Dec 08, 2016 Discharge Date: Dec 19, 2016 Admitting Diagnosis 1. Sepsis: resolved. blood cult neg 2. Candidiasis: in intertriginous areas, severe, prob worsened by frequent steroid use for COPD. on nystatin, add diflucan 3. COPD: increased, non-prod cough, causing worse SOB temporarily. CXR with ' stable increased vascular congestion'. 4. CHF: chronic diastolic. mild-mod peripheral edema, increased SOB. increase dose temporarily 40->80 IV bid, with improvement. monitor I&O 5. REY on CKD (baseline creat ~ 1.5): 2/2 vasomotor etiology. recovered to about baseline. appreciate Dr Saab's input and help w/ management 6. HTN: well controlled on home regimen 7. Gout: no acute issues. on allopurinol 8. Obesity with mild to mod PC M Problems: Final Diagnosis CONSULTS renal pulm Brief Hospital Course Ms. Schwartz is a 76 old F, comes from SNF for diffuse skin rash 2/2 candidiasis , required admitting in ICU with pressors, also has COPD, home o2 2.5l CHROnically. pt feels better with diflucan po and nystatin topical. bl lower ext edema also better with lasix iv. dc to snf, cont home dose lasix 40mg daily, cont diflucan for another 1 week and cont topical anti fungus treatment. dc time 40min. General: Alert, Oriented X3, Cooperative Heart: Regular rate Lungs: Clear Abdomen: Normal bowel sounds, Soft, No tenderness Extremities: Other (1-2+ LE edema) Skin: BL CHEST skin and back skin has deffuse mild erythema, severe bl intrigual rash under breasts Patient History: Family history: Hypertension (situation) Problems: Disposition SNF CONDITION AT DISCHARGE: Improved, Stable Diet regular Scheduled Allopurinol (Allopurinol) 1 TAB PO DAILY (Reported) Aspirin (Aspir 81) 1 TAB PO DAILY (Reported) Carvedilol (Carvedilol) 1 TAB PO BID (Reported) Ferrous Sulfate (Iron Supplement) 1 TAB PO DAILY (Reported) Fluconazole (Fluconazole) 200 MG PO DAILY Fluticasone/Salmeterol (Advair 250-50 Diskus) 1 PUFF IH BID (Reported) Furosemide (Furosemide) 1 TAB PO DAILY (Reported) Lisinopril (Lisinopril) 30 MG PO DAILY Metformin Hcl (Metformin Hcl) 1 TAB PO TID (Reported) Montelukast Sodium (Montelukast Sodium Tablet) 10 MG PO QHS Nystatin (Nystatin) 15 GM TP BID Pravastatin Sodium (Pravastatin Sodium) 1 TAB PO DAILY (Reported) Scheduled PRN Acetaminophen (Tylenol) 650 MG PO TID PRN PRN PRN PAIN (Reported) Ipratropium/Albuterol Sulfate (Duoneb 0.5-3(2.5) Mg/3 Ml) 3 ML IH Q4HRS PRN PRN CONGESTION (Reported) Discontinued Medications Sulfamethoxazole/Trimethoprim (Bactrim Ds Tablet) 1 TAB PO BID Follow Up pcp in 2 weeks MILAN LUNA MD Dec 19, 2016 12:17
[2016-12-19 14:50] VITALS: BP 150/66
== END 2016-12-19 15:00 | disposition home or self-care (01) | DRG 871 ==
LOC: ER 19:33 → 1 WEST ICU 20:25 → 5 SOUTH 12-12 14:12
PROVIDERS: ADMIT Internal Medicine; ATTEND Internal Medicine
PROC: 05HM33Z Insertion of Infusion Device into Right Internal Jugular Vein, Percutaneous Approach (ICD-10-PCS; principal; 2016-12-09)
PROC: B543ZZA Ultrasonography of Right Jugular Veins, Guidance (ICD-10-PCS; 2016-12-09)
DX: A41.9 Sepsis, unspecified organism (principal); N17.0 Acute kidney failure with tubular necrosis; J96.20 Acute and chronic respiratory failure, unspecified whether with hypoxia or hypercapnia; E44.0 Moderate protein-calorie malnutrition; E87.2 Acidosis; I50.32 Chronic diastolic (congestive) heart failure; I13.0 Hypertensive heart and chronic kidney disease with heart failure and stage 1 through stage 4 chronic kidney disease, or unspecified chronic kidney disease; J44.1 Chronic obstructive pulmonary disease with (acute) exacerbation; N39.0 Urinary tract infection, site not specified; L03.319 Cellulitis of trunk, unspecified; B37.2 Candidiasis of skin and nail; D64.9 Anemia, unspecified; E11.22 Type 2 diabetes mellitus with diabetic chronic kidney disease; E11.40 Type 2 diabetes mellitus with diabetic neuropathy, unspecified; E66.9 Obesity, unspecified; E78.00 Pure hypercholesterolemia, unspecified; E78.5 Hyperlipidemia, unspecified; E86.0 Dehydration; E83.42 Hypomagnesemia; M19.90 Unspecified osteoarthritis, unspecified site; R26.2 Difficulty in walking, not elsewhere classified; N18.3 Chronic kidney disease, stage 3 (moderate); I25.10 Atherosclerotic heart disease of native coronary artery without angina pectoris; J30.9 Allergic rhinitis, unspecified; M10.9 Gout, unspecified; Z68.32 Body mass index [BMI] 32.0-32.9, adult; Z79.52 Long term (current) use of systemic steroids; Z82.49 Family history of ischemic heart disease and other diseases of the circulatory system; Z87.891 Personal history of nicotine dependence; Z88.8 Allergy status to other drugs, medicaments and biological substances; Z79.899 Other long term (current) drug therapy
CPT/HCPCS: 36415; 36556; 71010; 76770; 76937; 80048; 80053; 80069; 81001; 82533; 82550; 82570; 82728; 82947; 83540; 83550; 83605; 83735; 84156; 84300; 84443; 84484; 84550; 85007; 85018; 85027; 85045; 87040; 87086; 87641; 93005; 93308; 93975; 94250; 94640; 94760; 96365; 96366; 96367; 96375; C1769; C1892; J0690; J0696; J0881; J1450; J1720; J1756; J1815; J1940; J2060; J2270; J2405; J3010; J3370; J7030; J7040; J7050; J7060; J7512; J7620; P9046; 97110; 97116; 97530; 97535

== ENCOUNTER 2017-01-11 17:20 | Inpatient (IN) | payer MEDICARE, OTHER ==
[~2017-01-11] VITALS: Ht 154.9 cm; Wt 72.4 kg
[~2017-01-11 17:20] MED LIST changes: +FLUC100T4 PO; -LINA5TAB PO; +LINA5TAB4 PO; +MONT10TA9 PO; +NYST15PO9 TP; -NYST30PO9 TP
[2017-01-11 18:15] VITALS: BP 108/44
[2017-01-11 19:00] VITALS: BP 103/44
[2017-01-11] MEDS ORDERED: ACETAMINOPHEN 325 MG TABLET. PO PRN (19:30)
[2017-01-11] MEDS ORDERED: hydrALAZINE 20 MG/ML VIAL. IVP PRN (19:30)
[2017-01-11] MEDS ORDERED: HYDROcodone/APAP 5/325MG 1 TAB TABLET PO PRN (19:30)
[2017-01-11] MEDS ORDERED: diphenhydrAMINE 50 MG/ML VIAL IVP PRN (19:45)
--- NOTE | 2017-01-11 19:56 | PDOC1 ---
History and Physical Past Medical History Cardiovascular: CAD, CHF, HTN, Hyperlipidemia Pulmonary: COPD, Other CENTRAL NERVOUS SYSTEM: Periperal neuropathy GI: No pertinent hx Heme/Onc: Anemia NOS Hepatobiliary: No pertinent hx Psych: No pertinent hx Rheumatologic: No pertinent hx Infectious disease: No pertinent hx Renal/: No pertinent hx Endocrine: Diabetes Past Surgical History Past Surgical History: Cholecystectomy, Other Family History Family History: Coronary Artery Disease Social History ALCOHOL: none Drugs: None Current Medications Current Medications Current Medications Medications (Trade) Dose Ordered Sig/Eva Start Time Stop Time Status Last Admin Dose Admin Acetaminophen (Tylenol) 325 mg PRN Q6HRS PRN 01/11/17 19:30 Acetaminophen/ Hydrocodone Bitart (Lortab 5/325) 1 tab PRN Q6HRS PRN 01/11/17 19:30 Albuterol Sulfate 2.5 mg 2.5 mg PRN Q4HRS PRN 01/11/17 19:30 Hydralazine HCl (Apresoline) 10 mg PRN Q4HRS PRN 01/11/17 19:30 Sodium Chloride (Iv Sodium Chloride 0.9% 1000ml Bag) 1,000 ml @ 75 mls/hr [id number] 01/11/17 19:30 Allergies Allergies Allergies Coded Allergies Type Severity Reaction Last Updated Verified I S O L A T I O N *CONTACT* Allergy Unknown 12/12/16 Yes No Known Medication Allergies Allergy Unknown 12/12/16 Yes ROS Review of System CONSTITUTIONAL: No fever or chills EYES: No recent changes SKIN: worsening rash and itching CARDIOVASCULAR: No chest pain, syncope, palpitations, or edema RESPIRATORY: No SOB or cough GASTROINTESTINAL: No nausea, vomiting or abdominal pain NEUROLOGICAL: No headaches or weakness ENDOCRINE: No cold or heat intolerance GENITOURINARY: No urgency or frequency of urination MUSCULOSKELETAL: No back pain or joint pain LYMPHATICS: No enlarged lymph nodes PSYCHIATRIC: No anxiety or depression Physical Exam Physical Exam GEN.: No apparent distress. Alert and oriented times 3 HEENT: Head is normocephalic, atraumatic NECK: Supple. no JVD LUNGS: Clear to auscultation. decreased Bilateral BS HEART: RRR, S1, S2 present. Peripheral pulses intact ABDOMEN: Soft, nontender. Positive bowel sounds. EXTREMITIES: Without any cyanosis. NEUROLOGIC: Normal speech, normal tone PSYCHIATRIC: Normal affect, normal mood. SKIN: Extensive erythema with scaling on anterior and posterior side, mostly located to places where she is touch with other objects, face is sparce, palms an soles spared. Vitals Vitals Vital Signs Date Time Temp Pulse Resp B/P Pulse Ox O2 Delivery O2 Flow Rate FiO2 01/11/17 18:41 Nasal Cannula 3.0 01/11/17 18:15 96.2 80 18 108/44 92 96.2 VTE Prophylaxis Ordered VTE Prophylaxis Devices: Yes VTE Pharmacological Prophylaxi: Yes DOLORES KRUEGER MD Jan 11, 2017 19:55
[2017-01-11] MEDS: ALBUTEROL SULFATE 2.5 MG/3 ML NEBU. NEB PRN (20:13)
[2017-01-11 20:53] LABS: BASO # 0.2 x10^3/uL (0.0-0.2); BASO % 2 % (0-3); EOS % 4 % (0-3); HEMATOCRIT 29.4 % (36.0-47.0); HEMOGLOBIN 9.2 g/dL (12.0-15.5); LYMPH # 2.4 x10^3/uL (1.0-4.8); LYMPH % 22 % (24-48); MEAN CORPUSCULAR HEMOGLOBIN 29 pg (25-35); MEAN CORPUSCULAR HGB CONC 32 g/dL (31-37); MEAN CORPUSCULAR VOLUME 92 fL (79-100); MONO % 9 % (0-9); NEUT % 64 % (31-73); PLATELET COUNT 241 x10^3/uL (140-400); RED BLOOD COUNT 3.18 x10^6/uL (3.50-5.40); RED CELL DISTRIBUTION WIDTH 17.5 % (11.5-14.5); WHITE BLOOD COUNT 11.1 x10^3/uL (4.0-11.0)
[2017-01-11 20:57] LABS: CALCIUM 8.1 mg/dL (8.5-10.1); CREATININE 1.8 mg/dL (0.6-1.0); GFR 27.2; POTASSIUM 4.6 mmol/L (3.5-5.1)
[2017-01-11] MEDS ORDERED: NYSTATIN TOPICAL POWDER 15GM BOTTLE. TP SCH (21:00)
[2017-01-11 21:03] LABS: ALBUMIN 2.2 g/dL (3.4-5.0); ALBUMIN/GLOBULIN RATIO 0.6 (1.0-1.7); TOTAL BILIRUBIN 0.4 mg/dL (0.2-1.0); TOTAL PROTEIN 5.9 g/dL (6.4-8.2)
[2017-01-11] MEDS: IV NORMAL SALINE 1000ML BAG 1,000 ML IV SCH (22:54)
[2017-01-11] MEDS: NYSTATIN TOPICAL POWDER 15GM BOTTLE. TP SCH (22:55)
[2017-01-11] MEDS: MONTELUKAST SODIUM 10 MG TABLET. PO SCH (22:55)
[2017-01-11] MEDS: ATORVASTATIN CALCIUM 10 MG TABLET. PO SCH (22:55)
[2017-01-11] MEDS: FAMOTIDINE 20 MG TABLET. PO SCH (22:55)
[2017-01-11 23:00] VITALS: BP 113/45
[2017-01-12 03:00] VITALS: BP 96/39
--- NOTE | 2017-01-12 03:20 | HP ---
ADMIT DATE: 01/11/2017 CHIEF COMPLAINT: Worsening rash with itching. HISTORY OF PRESENT ILLNESS: A 76-year-old female patient with COPD, chronic respiratory failure, hypertension, congestive heart failure diastolic and coronary artery disease, [facility]. I received a call from Dr. Kashmir Saab to admit the patient for worsening erythematous rash. Reportedly, the patient was admitted to the hospital here at [facility] last month for questionable sepsis. At that time, she was treated with IV antibiotics and she was evaluated by Infectious Disease and Nephrology and other subspecialties. The patient was sent to fdc with antifungal medications; however, as per the family, daughter and the patient, symptoms are getting slowly worse and she has never been rash free. Her symptoms are worsening mostly with erythema and rash is located mostly in the anterior aspect of the body sparing the face and palms and soles and denies any fever, chills, nausea, vomiting. PAST MEDICAL HISTORY: Please see my electronic H and P. REVIEW OF SYSTEMS: Please see my electronic H and P. PHYSICAL EXAMINATION: Please see my electronic H and P. LABORATORY FINDINGS: CBC: WBC is 11.1, hemoglobin is 9.2, hematocrit is 29.4, platelets 241, eosinophils 4%. Chemistry: Sodium 139, potassium is 4.6, chloride 105, carbon dioxide 27, BUN is 35, creatinine is 1.8. AST of 14, ALT is 12. GFR is 27.2. ASSESSMENT: 1. Diffuse erythematous worsening rash with itching, unclear etiology. 2. Chronic kidney disease. 3. REY with chronic kidney disease, suspect vasomotor nephropathy. 4. Chronic obstructive pulmonary disease. 5. Chronic diastolic heart failure. 6. Hypertension. 7. Gout. PLAN: 1. The patient has been admitted to the hospital for Infectious Disease consultation and Dermatology consultation. She has been placed on IV Benadryl to control itching and I appreciate Dermatology recommendations. 2. She has mild edema in the lower extremities; however, due to diffuse erythematous rash, she was started on IV fluids 40 mL per hour to prevent dehydration 3. Home medications need to be reviewed with family and we will resume her home medications. 4. Pepcid p.r.n. 5. I will hold off steroids until the patient is seen by Dermatology. 6. P.r.n. nebulizations and breathing treatments for COPD. 7. Monitor electrolytes. 8. Prognosis is guarded. Plan explained to the patient's daughter at bedside. DOLORES KRUEGER MD DR: CATRACHO/rito JOB#: [id number] / [id number] ZULMA
[2017-01-12 04:28] LABS: BASO # 0.1 x10^3/uL (0.0-0.2); BASO % 1 % (0-3); EOS % 4 % (0-3); HEMATOCRIT 28.1 % (36.0-47.0); LYMPH # 1.8 x10^3/uL (1.0-4.8); LYMPH % 20 % (24-48); MEAN CORPUSCULAR HEMOGLOBIN 30 pg (25-35); MEAN CORPUSCULAR HGB CONC 32 g/dL (31-37); MEAN CORPUSCULAR VOLUME 92 fL (79-100); MONO % 9 % (0-9); NEUT % 66 % (31-73); PLATELET COUNT 212 x10^3/uL (140-400); RED BLOOD COUNT 3.04 x10^6/uL (3.50-5.40); RED CELL DISTRIBUTION WIDTH 17.8 % (11.5-14.5); WHITE BLOOD COUNT 9.2 x10^3/uL (4.0-11.0)
[2017-01-12 04:39] LABS: CALCIUM 7.9 mg/dL (8.5-10.1); CREATININE 1.6 mg/dL (0.6-1.0); GFR 31.2; POTASSIUM 4.4 mmol/L (3.5-5.1)
[2017-01-12 07:00] VITALS: BP 85/43
[2017-01-12] MEDS: IPRATRPIUM/ALBUTEROL 0.5/2.5MG 3 ML NEBU. NEB SCH ×4 (07:40→20:30)
[2017-01-12] MEDS: CARVEDILOL 6.25 MG TABLET. PO SCH ×2 (08:00→17:12)
[2017-01-12] MEDS ORDERED: metFORMIN 500 MG TABLET PO SCH (08:00)
[2017-01-12] MEDS ORDERED: FLUCONAZOLE 100 MG TABLET. PO SCH (09:00)
[2017-01-12] MEDS: LISINOPRIL 20 MG TABLET PO SCH (09:00)
[2017-01-12] MEDS: FERROUS SULFATE 325 MG TABLET. PO SCH (09:06)
[2017-01-12] MEDS: ASPIRIN CHEWABLE 81 MG TABLET. PO SCH (09:06)
[2017-01-12] MEDS: FAMOTIDINE 20 MG TABLET. PO SCH ×2 (09:06→21:24)
[2017-01-12] MEDS: NYSTATIN TOPICAL POWDER 15GM BOTTLE. TP SCH ×2 (09:07→21:26)
--- NOTE | 2017-01-12 10:03 | PDOC ---
Infectious Disease Note Subjective Subjective Known to service please see Consult 12/09. F/u in ID office 01/11 and was found to have extensive Exfoliative dermatitis not involving the mucus membranes Sent to [facility] for admission and evaluation Some weakness but feels better ROS ROS GEN: Denies fevers, chills, sweats HEENT: Denies blurred vision, sore throat CV: Denies chest pain RESP: Shortness of air at baseline GI: Denies n/v/d NEURO: Denies confusion, dizziness MSK: Denies joint pain/swelling Vital Sign Vital Signs Vital Signs Date Time Temp Pulse Resp B/P Pulse Ox O2 Delivery O2 Flow Rate FiO2 01/12/17 07:42 98 Nasal Cannula 3.0 01/12/17 07:00 98.1 85 16 85/43 98.1 Physical Exam PHYSICAL EXAM GENERAL: NAD, Alert HEENT: PERRL, OC/OP - clear small ulcer on hard palate NECK: Supple, no JVD, no LN LUNGS: Clear on 02 - 3 Liters HEART: S1S2, no gallop, no murmur ABD: Soft, NT, no organomegaly, no rebound EXT: No edema, no cyanosis [employer]: Alert, oriented x 3, no focal neurologic deficit SKIN: Generalized erythematous rash with component of exfoliation IV: ok Labs Lab Laboratory Tests Test 01/11/17 20:30 01/11/17 20:39 01/12/17 04:10 01/12/17 08:16 White Blood Count 11.1x10^3/uL (4.0-11.0) 9.2x10^3/uL (4.0-11.0) Red Blood Count 3.18x10^6/uL (3.50-5.40) 3.04x10^6/uL (3.50-5.40) Hemoglobin 9.2g/dL (12.0-15.5) 9.0g/dL (12.0-15.5) Hematocrit 29.4% (36.0-47.0) 28.1% (36.0-47.0) Mean Corpuscular Volume 92fL (79-100) 92fL (79-100) Mean Corpuscular Hemoglobin 29pg (25-35) 30pg (25-35) Mean Corpuscular Hemoglobin Concent 32g/dL (31-37) 32g/dL (31-37) Red Cell Distribution Width 17.5% (11.5-14.5) 17.8% (11.5-14.5) Platelet Count 241x10^3/uL (140-400) 212x10^3/uL (140-400) Neutrophils (%) (Auto) 64% (31-73) 66% (31-73) Lymphocytes (%) (Auto) 22% (24-48) 20% (24-48) Monocytes (%) (Auto) 9% (0-9) 9% (0-9) Eosinophils (%) (Auto) 4% (0-3) 4% (0-3) Basophils (%) (Auto) 2% (0-3) 1% (0-3) Neutrophils # (Auto) 7.2x10^3uL (1.8-7.7) 6.1x10^3uL (1.8-7.7) Lymphocytes # (Auto) 2.4x10^3/uL (1.0-4.8) 1.8x10^3/uL (1.0-4.8) Monocytes # (Auto) 1.0x10^3/uL (0.0-1.1) 0.8x10^3/uL (0.0-1.1) Eosinophils # (Auto) 0.4x10^3/uL (0.0-0.7) 0.4x10^3/uL (0.0-0.7) Basophils # (Auto) 0.2x10^3/uL (0.0-0.2) 0.1x10^3/uL (0.0-0.2) Sodium Level 139mmol/L (136-145) 139mmol/L (136-145) Potassium Level 4.6mmol/L (3.5-5.1) 4.4mmol/L (3.5-5.1) Chloride Level 105mmol/L (98-107) 107mmol/L (98-107) Carbon Dioxide Level 27mmol/L (21-32) 25mmol/L (21-32) Anion Gap 7 (6-14) 7 (6-14) Blood Urea Nitrogen 35mg/dL (7-20) 33mg/dL (7-20) Creatinine 1.8mg/dL (0.6-1.0) 1.6mg/dL (0.6-1.0) Estimated GFR (Cockcroft-Gault) 27.2 31.2 BUN/Creatinine Ratio 19 (6-20) Glucose Level 87mg/dL (70-99) 92mg/dL (70-99) Calcium Level 8.1mg/dL (8.5-10.1) 7.9mg/dL (8.5-10.1) Total Bilirubin 0.4mg/dL (0.2-1.0) Aspartate Amino Transf (AST/SGOT) 14U/L (15-37) Alanine Aminotransferase (ALT/SGPT) 12U/L (14-59) Alkaline Phosphatase 68U/L (46-116) Total Protein 5.9g/dL (6.4-8.2) Albumin 2.2g/dL (3.4-5.0) Albumin/Globulin Ratio 0.6 (1.0-1.7) Glucose (Fingerstick) 75mg/dL (70-99) 86mg/dL (70-99) Objective Assessment 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 Mucus membranes not involved. Eosinophilia REY on CKD h/o Bactrim use 12/07 Debility Weakness CHF COPD on 02 at baseline 3 lites H/o Ecoli UTI 04/11/16 H/o MRSA + Plan Plan of Care Rash appears to have started last admit. was on Bactrim 12/07 and went to facility off Bactrim but has continued on Fluconazole and also Metformin. Selson blue body washes with showering started 01/03 Will d/c Fluconazole as she has been on this and her symptoms have worsened Would hold Metformin for now although has been on it since at least March 2016 add Zytrec and avoid Benadryl if possible secondary to its sedative effects on elderyl Dr. Saab recommended institution of antihistamines including Pepcid and starting of steroids on admit. Steroids on hold for Derm consult per primary. D/w family D/w KEVIN Orellana MD Jan 12, 2017 10:03
--- NOTE | 2017-01-12 10:22 | PDOC ---
PROGRESS NOTES Chief Complaint Chief Complaint 1. Diffuse exfoliating erythematous rash with itching 2. Chronic kidney disease 3 3. vasomotor nephropathy. 4. Chronic obstructive pulmonary disease. stable 5. Chronic diastolic heart failure. 6. Hypertension. 7. severe malnutrition, POA History of Present Illness History of Present Illness ID following pepcid, not benadryl cont antifungals symptom control Derm consult Vitals Vitals Vital Signs Date Time Temp Pulse Resp B/P Pulse Ox O2 Delivery O2 Flow Rate FiO2 01/12/17 07:42 98 Nasal Cannula 3.0 01/12/17 07:00 98.1 85 16 85/43 98.1 Physical Exam General: Alert, Oriented X3, Cooperative, No acute distress Heart: Regular rate, No murmurs Lungs: Clear Abdomen: Normal bowel sounds, Soft Extremities: No clubbing, No cyanosis Skin: Other (diffuse erythema, truck to back, worst in "wet areas" folds under breasts and in groin, under small pannus) Labs LABS Laboratory Tests Test 01/11/17 20:30 01/11/17 20:39 01/12/17 04:10 01/12/17 08:16 White Blood Count 11.1x10^3/uL (4.0-11.0) 9.2x10^3/uL (4.0-11.0) Red Blood Count 3.18x10^6/uL (3.50-5.40) 3.04x10^6/uL (3.50-5.40) Hemoglobin 9.2g/dL (12.0-15.5) 9.0g/dL (12.0-15.5) Hematocrit 29.4% (36.0-47.0) 28.1% (36.0-47.0) Mean Corpuscular Volume 92fL (79-100) 92fL (79-100) Mean Corpuscular Hemoglobin 29pg (25-35) 30pg (25-35) Mean Corpuscular Hemoglobin Concent 32g/dL (31-37) 32g/dL (31-37) Red Cell Distribution Width 17.5% (11.5-14.5) 17.8% (11.5-14.5) Platelet Count 241x10^3/uL (140-400) 212x10^3/uL (140-400) Neutrophils (%) (Auto) 64% (31-73) 66% (31-73) Lymphocytes (%) (Auto) 22% (24-48) 20% (24-48) Monocytes (%) (Auto) 9% (0-9) 9% (0-9) Eosinophils (%) (Auto) 4% (0-3) 4% (0-3) Basophils (%) (Auto) 2% (0-3) 1% (0-3) Neutrophils # (Auto) 7.2x10^3uL (1.8-7.7) 6.1x10^3uL (1.8-7.7) Lymphocytes # (Auto) 2.4x10^3/uL (1.0-4.8) 1.8x10^3/uL (1.0-4.8) Monocytes # (Auto) 1.0x10^3/uL (0.0-1.1) 0.8x10^3/uL (0.0-1.1) Eosinophils # (Auto) 0.4x10^3/uL (0.0-0.7) 0.4x10^3/uL (0.0-0.7) Basophils # (Auto) 0.2x10^3/uL (0.0-0.2) 0.1x10^3/uL (0.0-0.2) Sodium Level 139mmol/L (136-145) 139mmol/L (136-145) Potassium Level 4.6mmol/L (3.5-5.1) 4.4mmol/L (3.5-5.1) Chloride Level 105mmol/L (98-107) 107mmol/L (98-107) Carbon Dioxide Level 27mmol/L (21-32) 25mmol/L (21-32) Anion Gap 7 (6-14) 7 (6-14) Blood Urea Nitrogen 35mg/dL (7-20) 33mg/dL (7-20) Creatinine 1.8mg/dL (0.6-1.0) 1.6mg/dL (0.6-1.0) Estimated GFR (Cockcroft-Gault) 27.2 31.2 BUN/Creatinine Ratio 19 (6-20) Glucose Level 87mg/dL (70-99) 92mg/dL (70-99) Calcium Level 8.1mg/dL (8.5-10.1) 7.9mg/dL (8.5-10.1) Total Bilirubin 0.4mg/dL (0.2-1.0) Aspartate Amino Transf (AST/SGOT) 14U/L (15-37) Alanine Aminotransferase (ALT/SGPT) 12U/L (14-59) Alkaline Phosphatase 68U/L (46-116) Total Protein 5.9g/dL (6.4-8.2) Albumin 2.2g/dL (3.4-5.0) Albumin/Globulin Ratio 0.6 (1.0-1.7) Glucose (Fingerstick) 75mg/dL (70-99) 86mg/dL (70-99) Review of Systems Review of Systems puritis, poor appetite no n/v d Comment Review of Relevant I have reviewed the following items jamaica (where applicable) has been applied. Labs Laboratory Tests Test 01/11/17 20:30 01/11/17 20:39 01/12/17 04:10 01/12/17 08:16 White Blood Count 11.1x10^3/uL (4.0-11.0) 9.2x10^3/uL (4.0-11.0) Red Blood Count 3.18x10^6/uL (3.50-5.40) 3.04x10^6/uL (3.50-5.40) Hemoglobin 9.2g/dL (12.0-15.5) 9.0g/dL (12.0-15.5) Hematocrit 29.4% (36.0-47.0) 28.1% (36.0-47.0) Mean Corpuscular Volume 92fL (79-100) 92fL (79-100) Mean Corpuscular Hemoglobin 29pg (25-35) 30pg (25-35) Mean Corpuscular Hemoglobin Concent 32g/dL (31-37) 32g/dL (31-37) Red Cell Distribution Width 17.5% (11.5-14.5) 17.8% (11.5-14.5) Platelet Count 241x10^3/uL (140-400) 212x10^3/uL (140-400) Neutrophils (%) (Auto) 64% (31-73) 66% (31-73) Lymphocytes (%) (Auto) 22% (24-48) 20% (24-48) Monocytes (%) (Auto) 9% (0-9) 9% (0-9) Eosinophils (%) (Auto) 4% (0-3) 4% (0-3) Basophils (%) (Auto) 2% (0-3) 1% (0-3) Neutrophils # (Auto) 7.2x10^3uL (1.8-7.7) 6.1x10^3uL (1.8-7.7) Lymphocytes # (Auto) 2.4x10^3/uL (1.0-4.8) 1.8x10^3/uL (1.0-4.8) Monocytes # (Auto) 1.0x10^3/uL (0.0-1.1) 0.8x10^3/uL (0.0-1.1) Eosinophils # (Auto) 0.4x10^3/uL (0.0-0.7) 0.4x10^3/uL (0.0-0.7) Basophils # (Auto) 0.2x10^3/uL (0.0-0.2) 0.1x10^3/uL (0.0-0.2) Sodium Level 139mmol/L (136-145) 139mmol/L (136-145) Potassium Level 4.6mmol/L (3.5-5.1) 4.4mmol/L (3.5-5.1) Chloride Level 105mmol/L (98-107) 107mmol/L (98-107) Carbon Dioxide Level 27mmol/L (21-32) 25mmol/L (21-32) Anion Gap 7 (6-14) 7 (6-14) Blood Urea Nitrogen 35mg/dL (7-20) 33mg/dL (7-20) Creatinine 1.8mg/dL (0.6-1.0) 1.6mg/dL (0.6-1.0) Estimated GFR (Cockcroft-Gault) 27.2 31.2 BUN/Creatinine Ratio 19 (6-20) Glucose Level 87mg/dL (70-99) 92mg/dL (70-99) Calcium Level 8.1mg/dL (8.5-10.1) 7.9mg/dL (8.5-10.1) Total Bilirubin 0.4mg/dL (0.2-1.0) Aspartate Amino Transf (AST/SGOT) 14U/L (15-37) Alanine Aminotransferase (ALT/SGPT) 12U/L (14-59) Alkaline Phosphatase 68U/L (46-116) Total Protein 5.9g/dL (6.4-8.2) Albumin 2.2g/dL (3.4-5.0) Albumin/Globulin Ratio 0.6 (1.0-1.7) Glucose (Fingerstick) 75mg/dL (70-99) 86mg/dL (70-99) Laboratory Tests Test 01/11/17 20:30 01/11/17 20:39 01/12/17 04:10 01/12/17 08:16 White Blood Count 11.1x10^3/uL (4.0-11.0) 9.2x10^3/uL (4.0-11.0) Red Blood Count 3.18x10^6/uL (3.50-5.40) 3.04x10^6/uL (3.50-5.40) Hemoglobin 9.2g/dL (12.0-15.5) 9.0g/dL (12.0-15.5) Hematocrit 29.4% (36.0-47.0) 28.1% (36.0-47.0) Mean Corpuscular Volume 92fL (79-100) 92fL (79-100) Mean Corpuscular Hemoglobin 29pg (25-35) 30pg (25-35) Mean Corpuscular Hemoglobin Concent 32g/dL (31-37) 32g/dL (31-37) Red Cell Distribution Width 17.5% (11.5-14.5) 17.8% (11.5-14.5) Platelet Count 241x10^3/uL (140-400) 212x10^3/uL (140-400) Neutrophils (%) (Auto) 64% (31-73) 66% (31-73) Lymphocytes (%) (Auto) 22% (24-48) 20% (24-48) Monocytes (%) (Auto) 9% (0-9) 9% (0-9) Eosinophils (%) (Auto) 4% (0-3) 4% (0-3) Basophils (%) (Auto) 2% (0-3) 1% (0-3) Neutrophils # (Auto) 7.2x10^3uL (1.8-7.7) 6.1x10^3uL (1.8-7.7) Lymphocytes # (Auto) 2.4x10^3/uL (1.0-4.8) 1.8x10^3/uL (1.0-4.8) Monocytes # (Auto) 1.0x10^3/uL (0.0-1.1) 0.8x10^3/uL (0.0-1.1) Eosinophils # (Auto) 0.4x10^3/uL (0.0-0.7) 0.4x10^3/uL (0.0-0.7) Basophils # (Auto) 0.2x10^3/uL (0.0-0.2) 0.1x10^3/uL (0.0-0.2) Sodium Level 139mmol/L (136-145) 139mmol/L (136-145) Potassium Level 4.6mmol/L (3.5-5.1) 4.4mmol/L (3.5-5.1) Chloride Level 105mmol/L (98-107) 107mmol/L (98-107) Carbon Dioxide Level 27mmol/L (21-32) 25mmol/L (21-32) Anion Gap 7 (6-14) 7 (6-14) Blood Urea Nitrogen 35mg/dL (7-20) 33mg/dL (7-20) Creatinine 1.8mg/dL (0.6-1.0) 1.6mg/dL (0.6-1.0) Estimated GFR (Cockcroft-Gault) 27.2 31.2 BUN/Creatinine Ratio 19 (6-20) Glucose Level 87mg/dL (70-99) 92mg/dL (70-99) Calcium Level 8.1mg/dL (8.5-10.1) 7.9mg/dL (8.5-10.1) Total Bilirubin 0.4mg/dL (0.2-1.0) Aspartate Amino Transf (AST/SGOT) 14U/L (15-37) Alanine Aminotransferase (ALT/SGPT) 12U/L (14-59) Alkaline Phosphatase 68U/L (46-116) Total Protein 5.9g/dL (6.4-8.2) Albumin 2.2g/dL (3.4-5.0) Albumin/Globulin Ratio 0.6 (1.0-1.7) Glucose (Fingerstick) 75mg/dL (70-99) 86mg/dL (70-99) Medications Current Medications Acetaminophen (Tylenol) 325 mg PRN Q6HRS PRN PO MILD PAIN / TEMP; Start at 19:30 Acetaminophen/ Hydrocodone Bitart (Lortab 5/325) 1 tab PRN Q6HRS PRN PO MODERATE TO SEVERE PAIN; Start 01/11/17 at 19:30 Hydralazine HCl (Apresoline) 10 mg PRN Q4HRS PRN IVP ELEVATED BP, SEE COMMENTS ; Start 01/11/17 at 19:30 Albuterol Sulfate 2.5 mg 2.5 mg PRN Q4HRS PRN NEB SHORTNESS OF BREATH Last administered on 01/11/17 20:13; Start 01/11/17 at 19:30 Sodium Chloride (Iv Sodium Chloride 0.9% 1000ml Bag) 1,000 ml @ 40 mls/hr Q24H IV Last administered on 01/11/17 22:54; Start 01/11/17 at 19:30 Diphenhydramine HCl (Benadryl) 25 mg PRN Q6HRS PRN IVP ITCHING; Start 01/11/17 at 19:45; Stop 01/12/17 at 09:57; Status DC Famotidine (Pepcid) 20 mg BID PO Last administered on 01/12/17 09:06; Start at 21:00 Albuterol/ Ipratropium (Duoneb) 3 ml RTQID NEB Last administered on 01/12/17 07:40; Start 01/12/17 at 08:00 Darbepoetin Krzysztof (Aranesp) 60 mcg WEEKLYHS SQ ; Start 01/12/17 at 21:00 Aspirin (Children'S Aspirin) 81 mg DAILYWBKFT PO Last administered on 09:06; Start 01/12/17 at 08:00 Carvedilol (Coreg) 6.25 mg BIDWMEALS PO ; Start 01/12/17 at 08:00 Ferrous Sulfate (Feosol) 325 mg DAILY08 PO Last administered on 01/12/17 09:06 ; Start 01/12/17 at 08:00 Fluconazole (Diflucan) 200 mg DAILY PO ; Start 01/12/17 at 09:00; Stop 01/12/17 at 09:34; Status DC Furosemide (Lasix) 20 mg DAILY PO ; Start 01/12/17 at 09:00 Lisinopril (Prinivil) 20 mg DAILY PO ; Start 01/12/17 at 09:00 Metformin HCl (Glucophage) 500 mg TIDWMEALS PO Last administered on 01/12/17 09:06; Start 01/12/17 at 08:00; Stop 01/12/17 at 09:57; Status DC Montelukast Sodium (Singulair) 10 mg QHS PO Last administered on 01/11/17 22: 55; Start 01/11/17 at 21:00 Nystatin (Nystop) 15 jaison BID TP ; Start 01/11/17 at 21:00; Stop 01/11/17 at 21: 00; Status DC Atorvastatin Calcium (Lipitor) 5 mg QHS PO Last administered on 01/11/17 22:55 ; Start 01/11/17 at 21:00 Nystatin (Nystop) 1 jaison BID TP Last administered on 01/12/17 09:07; Start at 21:00 Cetirizine HCl (Zyrtec) 10 mg DAILY PO ; Start 01/12/17 at 11:00 Active Scripts Active Montelukast Sodium Tablet (Montelukast Sodium) 10 Mg Tablet 10 Mg PO QHS Fluconazole 100 Mg Tablet 200 Mg PO DAILY Nystatin 15 Gm Powder 15 Gm TP BID Lisinopril 10 Mg Tablet 30 Mg PO DAILY Reported Tylenol (Acetaminophen) 325 Mg Tablet 650 Mg PO TID PRN PRN Metformin Hcl 500 Mg Tablet 1 Tab PO TID Aspir 81 (Aspirin) 81 Mg Tablet.dr 1 Tab PO DAILY Allopurinol 100 Mg Tablet 1 Tab PO DAILY Iron Supplement (Ferrous Sulfate) 325 Mg Tablet 1 Tab PO DAILY Advair 250-50 Diskus (Fluticasone/Salmeterol) 1 Each Disk.w.dev 1 Puff IH BID Duoneb 0.5-3(2.5) Mg/3 Ml (Albuterol/Ipratropium) 3 Ml Ampul.neb 3 Ml IH Q4HRS PRN Pravastatin Sodium 10 Mg Tablet 1 Tab PO DAILY Carvedilol 6.25 Mg Tablet 1 Tab PO BID Furosemide 40 Mg Tablet 1 Tab PO DAILY Vitals/I & O Vital Sign - Last 24 Hours 01/11/17 01/11/17 01/11/17 01/11/17 18:15 18:41 19:00 20:00 Temp 96.2 98.1 96.2 98.1 Pulse 80 70 Resp B/P 108/44 103/44 Pulse Ox 92 92 O2 Delivery Nasal Cannula Nasal Cannula Nasal Cannula O2 Flow Rate 3.0 3.0 3.0 3.0 01/11/17 01/11/17 01/12/17 01/12/17 20:07 23:00 01:54 03:00 Temp 97.7 97.9 97.7 97.9 Pulse 84 81 Resp 22 B/P 113/45 96/39 Pulse Ox 96 97 97 O2 Delivery Nasal Cannula Nasal Cannula Nasal Cannula Nasal Cannula O2 Flow Rate 3.0 3.0 3.0 3.0 01/12/17 01/12/17 07:00 07:42 Temp 98.1 98.1 Pulse 85 Resp 16 B/P 85/43 Pulse Ox 99 98 O2 Delivery Nasal Cannula Nasal Cannula O2 Flow Rate 3.0 3.0 Intake and Output 01/11/17 01/11/17 01/12/17 15:00 23:00 07:00 Output Total 100 ml Balance -100 ml LUKAS DWYER MD Jan 12, 2017 10:22
[2017-01-12 11:25] VITALS: BP 102/45
[2017-01-12] MEDS: CETIRIZINE HCL 10 MG TABLET. PO SCH (11:40)
[2017-01-12] MEDS: FUROSEMIDE 20 MG TABLET PO SCH (11:40)
[2017-01-12] MEDS ORDERED: IPRATRPIUM/ALBUTEROL 0.5/2.5MG 3 ML NEBU. NEB SCH (12:00)
[2017-01-12 15:28] VITALS: BP 115/41
[2017-01-12 19:00] VITALS: BP 106/34
[2017-01-12] MEDS ORDERED: DARBEPOETIN ALFA 60 MCG/0.3 ML DISP.SYRIN. SQ SCH (21:00)
[2017-01-12] MEDS: MONTELUKAST SODIUM 10 MG TABLET. PO SCH (21:24)
[2017-01-12] MEDS: ATORVASTATIN CALCIUM 10 MG TABLET. PO SCH (21:25)
[2017-01-12] MEDS: IV NORMAL SALINE 1000ML BAG 1,000 ML IV SCH (21:26)
[2017-01-12] MEDS: VITS A & D/LANOLIN TOPICAL OINTMENT 56GM TUBE. TP SCH (22:03)
[2017-01-12 23:00] VITALS: BP 98/42
[2017-01-13 03:00] VITALS: BP 87/31
[2017-01-13 06:17] LABS: BASO # 0.1 x10^3/uL (0.0-0.2); BASO % 1 % (0-3); EOS % 5 % (0-3); HEMATOCRIT 29.9 % (36.0-47.0); HEMOGLOBIN 9.4 g/dL (12.0-15.5); LYMPH # 1.9 x10^3/uL (1.0-4.8); LYMPH % 25 % (24-48); MEAN CORPUSCULAR HEMOGLOBIN 29 pg (25-35); MEAN CORPUSCULAR HGB CONC 32 g/dL (31-37); MEAN CORPUSCULAR VOLUME 93 fL (79-100); MONO % 11 % (0-9); NEUT % 59 % (31-73); PLATELET COUNT 207 x10^3/uL (140-400); RED BLOOD COUNT 3.21 x10^6/uL (3.50-5.40); RED CELL DISTRIBUTION WIDTH 17.6 % (11.5-14.5); WHITE BLOOD COUNT 7.8 x10^3/uL (4.0-11.0)
[2017-01-13 06:48] LABS: ALBUMIN 1.8 g/dL (3.4-5.0); ALBUMIN/GLOBULIN RATIO 0.6 (1.0-1.7); CALCIUM 7.6 mg/dL (8.5-10.1); CREATININE 1.3 mg/dL (0.6-1.0); GFR 39.6; POTASSIUM 4.5 mmol/L (3.5-5.1); TOTAL BILIRUBIN 0.4 mg/dL (0.2-1.0); TOTAL PROTEIN 4.8 g/dL (6.4-8.2)
[2017-01-13 07:25] VITALS: BP 100/41
[2017-01-13] MEDS: IPRATRPIUM/ALBUTEROL 0.5/2.5MG 3 ML NEBU. NEB SCH ×4 (08:03→20:01)
[2017-01-13] MEDS: LISINOPRIL 20 MG TABLET PO SCH (09:26)
[2017-01-13] MEDS: ASPIRIN CHEWABLE 81 MG TABLET. PO SCH (09:27)
[2017-01-13] MEDS: FUROSEMIDE 20 MG TABLET PO SCH (09:28)
[2017-01-13] MEDS: CARVEDILOL 6.25 MG TABLET. PO SCH ×2 (09:28→17:53)
[2017-01-13] MEDS: FERROUS SULFATE 325 MG TABLET. PO SCH (09:28)
[2017-01-13] MEDS: CETIRIZINE HCL 10 MG TABLET. PO SCH (09:29)
[2017-01-13] MEDS: FAMOTIDINE 20 MG TABLET. PO SCH ×2 (09:29→22:15)
[2017-01-13] MEDS: VITS A & D/LANOLIN TOPICAL OINTMENT 56GM TUBE. TP SCH ×3 (09:30→22:15)
[2017-01-13] MEDS: NYSTATIN TOPICAL POWDER 15GM BOTTLE. TP SCH ×2 (09:30→22:15)
[2017-01-13 10:30] VITALS: BP 112/52
--- NOTE | 2017-01-13 11:01 | PDOC ---
SUBJECTIVE Subjective Patient notes having longstanding rashes on her buttocks, groins and inframammary areas (she was hospitalized here last month and is known to wound care staff). These rashes have persisted. She was admitted with spread erythema and exfoliation, especially arms and legs (not total body). She denies significant itch, chllls or malaise (although she is fatigued) OBJECTIVE Objective Intertrigo inframammary, groins, buttocks with ulcerations buttock (left). (I didn't look at feet). Erythema with desqumation (mostly dry, some moist) on arms legs and portions of torso (certainly not total body exfoliative erythroderma) Vital Signs Vital Signs Date Time Temp Pulse Resp B/P Pulse Ox O2 Delivery O2 Flow Rate FiO2 01/13/17 09:28 81 100/41 01/13/17 09:26 81 100/41 01/13/17 08:03 99 Nasal Cannula 3.0 01/13/17 07:25 96.5 81 20 100/41 98 Nasal Cannula 3.0 96.5 01/13/17 03:00 99.3 74 20 87/31 97 Nasal Cannula 2.0 99.3 01/12/17 23:00 99.3 89 20 98/42 92 Nasal Cannula 2.0 99.3 01/12/17 20:29 95 Nasal Cannula 3.0 01/12/17 20:00 Nasal Cannula 3.0 01/12/17 19:00 98.8 62 20 106/34 97 Nasal Cannula 2.0 98.8 01/12/17 17:12 99 127/77 01/12/17 15:28 97.0 92 20 115/41 97 Nasal Cannula 2.0 97.0 01/12/17 15:18 99 Nasal Cannula 3.0 01/12/17 11:39 98 Nasal Cannula 3.0 01/12/17 11:25 96.8 87 16 102/45 99 Nasal Cannula 3.0 96.8 I & O Intake and Output 01/13/17 07:00 Intake Total 480 ml Output Total 1000 ml Balance -520 ml Intake Oral 480 ml Output Urine Total 1000 ml # Bowel Movements 1 PHYSICAL EXAM Physical Exam as above ASSESSMENT/PLAN Assessment/Plan Intertrigo (being managed by wound care). Apparently improving but still red, moist and ulcerations buttocks. Partial exfoliative erythroderma. The consulting physician's thought that this may be drug related is a good one (although itch usually figures in more significantly). My thought is that this represents an autoeczematization or id reaction. That is that the adjacent skin to senior living severe rash becomes inflamed. Treatment consists of treating the underlying problem (in her case, intertrigo) Suggest - treat the intertrigo with a "mix" of Nystatin Cream, 1% hydrocortisone and Zinc Oxide Paste (nursing can mix and is cheaper than compounding) Treat the erythroderma with aggressive applications of emollients (like Eucerin cream or equivalent).This can be applied q shift. Use of Triamcinolone .025 cream or ointment on the erythrodermic areas daily may be helpful.. I don't think compresses are necessary as patient is not that itchy (and compresses can cause chilling and makes bedclothes damp). Ask wound care service if hydrocolloid dressings to buttock ulcers is a good idea. Again stopping of all nonessential meds is a great idea. I will look for some literature on id reactions. Problems: COMMENT Lab Laboratory Tests Test 01/12/17 11:51 01/12/17 16:50 01/13/17 05:40 01/13/17 07:26 Glucose (Fingerstick) 76mg/dL (70-99) 75mg/dL (70-99) 83mg/dL (70-99) White Blood Count 7.8x10^3/uL (4.0-11.0) Red Blood Count 3.21x10^6/uL (3.50-5.40) Hemoglobin 9.4g/dL (12.0-15.5) Hematocrit 29.9% (36.0-47.0) Mean Corpuscular Volume 93fL (79-100) Mean Corpuscular Hemoglobin 29pg (25-35) Mean Corpuscular Hemoglobin Concent 32g/dL (31-37) Red Cell Distribution Width 17.6% (11.5-14.5) Platelet Count 207x10^3/uL (140-400) Neutrophils (%) (Auto) 59% (31-73) Lymphocytes (%) (Auto) 25% (24-48) Monocytes (%) (Auto) 11% (0-9) Eosinophils (%) (Auto) 5% (0-3) Basophils (%) (Auto) 1% (0-3) Neutrophils # (Auto) 4.6x10^3uL (1.8-7.7) Lymphocytes # (Auto) 1.9x10^3/uL (1.0-4.8) Monocytes # (Auto) 0.8x10^3/uL (0.0-1.1) Eosinophils # (Auto) 0.4x10^3/uL (0.0-0.7) Basophils # (Auto) 0.1x10^3/uL (0.0-0.2) Sodium Level 142mmol/L (136-145) Potassium Level 4.5mmol/L (3.5-5.1) Chloride Level 108mmol/L (98-107) Carbon Dioxide Level 24mmol/L (21-32) Anion Gap 10 (6-14) Blood Urea Nitrogen 25mg/dL (7-20) Creatinine 1.3mg/dL (0.6-1.0) Estimated GFR (Cockcroft-Gault) 39.6 BUN/Creatinine Ratio 19 (6-20) Glucose Level 89mg/dL (70-99) Calcium Level 7.6mg/dL (8.5-10.1) Total Bilirubin 0.4mg/dL (0.2-1.0) Aspartate Amino Transf (AST/SGOT) 16U/L (15-37) Alanine Aminotransferase (ALT/SGPT) 8U/L (14-59) Alkaline Phosphatase 58U/L (46-116) Total Protein 4.8g/dL (6.4-8.2) Albumin 1.8g/dL (3.4-5.0) Albumin/Globulin Ratio 0.6 (1.0-1.7) LISA HOPE MD Jan 13, 2017 11:01
[2017-01-13] MEDS: ALBUTEROL SULFATE 2.5 MG/3 ML NEBU. NEB PRN (11:47)
--- NOTE | 2017-01-13 13:06 | PDOC ---
Infectious Disease Note Subjective Subjective Known to service please see Consult 12/09. F/u in ID office 01/11 and was found to have extensive Exfoliative dermatitis not involving the mucus membranes Sent to [facility] for admission and evaluation Today feeling alright though the room is cold. Diminished appetite Mild pruritus. Denies pain Feels rash is no worse ROS ROS GEN: Denies fevers, chills, sweats HEENT: Denies sore throat CV: Denies chest pain RESP: Denies shortness of air, cough GI: Denies n/v/d Vital Sign Vital Signs Vital Signs Date Time Temp Pulse Resp B/P Pulse Ox O2 Delivery O2 Flow Rate FiO2 01/13/17 11:56 99 Nasal Cannula 3.0 01/13/17 10:30 99.0 80 20 112/52 99.0 Physical Exam PHYSICAL EXAM GENERAL: Alert, sitting in the chair, NAD HEENT: PERRL, OC/OP clear NECK: Supple LUNGS: Clear HEART: S1S2 ABD: Soft, NT EXT: No edema, no cyanosis CEMENTER OIL WELL: Alert, oriented x 3, no focal neurologic deficit SKIN: Erythematous rash with component of exfoliation, arms, legs torso IV: ok Labs Lab Laboratory Tests Test 01/12/17 16:50 01/12/17 21:16 01/13/17 05:40 01/13/17 07:26 Glucose (Fingerstick) 75mg/dL (70-99) 77mg/dL (70-99) 83mg/dL (70-99) White Blood Count 7.8x10^3/uL (4.0-11.0) Red Blood Count 3.21x10^6/uL (3.50-5.40) Hemoglobin 9.4g/dL (12.0-15.5) Hematocrit 29.9% (36.0-47.0) Mean Corpuscular Volume 93fL (79-100) Mean Corpuscular Hemoglobin 29pg (25-35) Mean Corpuscular Hemoglobin Concent 32g/dL (31-37) Red Cell Distribution Width 17.6% (11.5-14.5) Platelet Count 207x10^3/uL (140-400) Neutrophils (%) (Auto) 59% (31-73) Lymphocytes (%) (Auto) 25% (24-48) Monocytes (%) (Auto) 11% (0-9) Eosinophils (%) (Auto) 5% (0-3) Basophils (%) (Auto) 1% (0-3) Neutrophils # (Auto) 4.6x10^3uL (1.8-7.7) Lymphocytes # (Auto) 1.9x10^3/uL (1.0-4.8) Monocytes # (Auto) 0.8x10^3/uL (0.0-1.1) Eosinophils # (Auto) 0.4x10^3/uL (0.0-0.7) Basophils # (Auto) 0.1x10^3/uL (0.0-0.2) Sodium Level 142mmol/L (136-145) Potassium Level 4.5mmol/L (3.5-5.1) Chloride Level 108mmol/L (98-107) Carbon Dioxide Level 24mmol/L (21-32) Anion Gap 10 (6-14) Blood Urea Nitrogen 25mg/dL (7-20) Creatinine 1.3mg/dL (0.6-1.0) Estimated GFR (Cockcroft-Gault) 39.6 BUN/Creatinine Ratio 19 (6-20) Glucose Level 89mg/dL (70-99) Calcium Level 7.6mg/dL (8.5-10.1) Total Bilirubin 0.4mg/dL (0.2-1.0) Aspartate Amino Transf (AST/SGOT) 16U/L (15-37) Alanine Aminotransferase (ALT/SGPT) 8U/L (14-59) Alkaline Phosphatase 58U/L (46-116) Total Protein 4.8g/dL (6.4-8.2) Albumin 1.8g/dL (3.4-5.0) Albumin/Globulin Ratio 0.6 (1.0-1.7) Test 01/13/17 11:48 Glucose (Fingerstick) 75mg/dL (70-99) Objective Assessment 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 Mucus membranes not involved. Eosinophilia REY on CKD h/o Bactrim use 12/07 Debility Weakness CHF COPD on 02 at baseline 3 lites H/o E coli UTI 04/11/16 H/o MRSA + Plan Plan of Care Appreciated derm input Continue Zyrtec and Pepcid Would hold Metformin for now although has been on it since at least March 2016 Avoid Benadryl if possible secondary to its sedative effects on elderyl Attending Co-Sign The patient was seen and interviewed as well as examined at the bedside. The chart was reviewed. The case was discussed. Agree with the plan of care. JULES MAGANA APRN Jan 13, 2017 13:06 OPAL NORTON MD Jan 13, 2017 16:18
--- NOTE | 2017-01-13 13:06 | PDOC ---
PROGRESS NOTES Chief Complaint Chief Complaint Rash ASSESSMENT AND PLAN: 1. Diffuse exfoliating erythematous rash: greatly appreciate Dr Gardiner's input: - intertrigo (treat with "mix" of Nystatin Cream, 1% hydrocortisone and Zinc Oxide Paste (nursing can mix and is cheaper than compounding)) and - adjacent partial exfoliative erythroderma (treat with aggressive applications of emollients (like Eucerin cream or equivalent) q shift. Use of Triamcinolone .025 cream or ointment 2. REY on CKD3: vasomotor nephropathy, resolved, back to baseline 3. CHF: chronic diastolic 4. COPD. stable 5. HTN: well controlled on home regimen 6. Gout: no acute issues. on allopurinol 7. Obesity with mild to mod PCM 8. Dispo: home with daughter, services in AM History of Present Illness History of Present Illness not too itchy. feels too weak to go home by herself. Araceli (SW) s/poke w/ daughter: pt may have to move in with her for the time being. ran out of SNF days. Vitals Vitals Vital Signs Date Time Temp Pulse Resp B/P Pulse Ox O2 Delivery O2 Flow Rate FiO2 01/13/17 11:56 99 Nasal Cannula 3.0 01/13/17 10:30 99.0 80 20 112/52 99.0 Physical Exam General: Alert, Oriented X3, Cooperative, No acute distress Heart: Regular rate, No murmurs Lungs: Clear Abdomen: Normal bowel sounds, Soft Extremities: No clubbing, No cyanosis Skin: Other (diffuse erythema, trunk to back, worst in "wet areas" folds under breasts and in groin, under small pannus) Labs LABS Laboratory Tests Test 01/12/17 16:50 01/12/17 21:16 01/13/17 05:40 01/13/17 07:26 Glucose (Fingerstick) 75mg/dL (70-99) 77mg/dL (70-99) 83mg/dL (70-99) White Blood Count 7.8x10^3/uL (4.0-11.0) Red Blood Count 3.21x10^6/uL (3.50-5.40) Hemoglobin 9.4g/dL (12.0-15.5) Hematocrit 29.9% (36.0-47.0) Mean Corpuscular Volume 93fL (79-100) Mean Corpuscular Hemoglobin 29pg (25-35) Mean Corpuscular Hemoglobin Concent 32g/dL (31-37) Red Cell Distribution Width 17.6% (11.5-14.5) Platelet Count 207x10^3/uL (140-400) Neutrophils (%) (Auto) 59% (31-73) Lymphocytes (%) (Auto) 25% (24-48) Monocytes (%) (Auto) 11% (0-9) Eosinophils (%) (Auto) 5% (0-3) Basophils (%) (Auto) 1% (0-3) Neutrophils # (Auto) 4.6x10^3uL (1.8-7.7) Lymphocytes # (Auto) 1.9x10^3/uL (1.0-4.8) Monocytes # (Auto) 0.8x10^3/uL (0.0-1.1) Eosinophils # (Auto) 0.4x10^3/uL (0.0-0.7) Basophils # (Auto) 0.1x10^3/uL (0.0-0.2) Sodium Level 142mmol/L (136-145) Potassium Level 4.5mmol/L (3.5-5.1) Chloride Level 108mmol/L (98-107) Carbon Dioxide Level 24mmol/L (21-32) Anion Gap 10 (6-14) Blood Urea Nitrogen 25mg/dL (7-20) Creatinine 1.3mg/dL (0.6-1.0) Estimated GFR (Cockcroft-Gault) 39.6 BUN/Creatinine Ratio 19 (6-20) Glucose Level 89mg/dL (70-99) Calcium Level 7.6mg/dL (8.5-10.1) Total Bilirubin 0.4mg/dL (0.2-1.0) Aspartate Amino Transf (AST/SGOT) 16U/L (15-37) Alanine Aminotransferase (ALT/SGPT) 8U/L (14-59) Alkaline Phosphatase 58U/L (46-116) Total Protein 4.8g/dL (6.4-8.2) Albumin 1.8g/dL (3.4-5.0) Albumin/Globulin Ratio 0.6 (1.0-1.7) Test 01/13/17 11:48 Glucose (Fingerstick) 75mg/dL (70-99) Nutrition Consultation Dietary Evaluation: Comments: Pt refuses all supplements - encouraged adequate intake at meals Changed diet order to include ground meats per pt request Expected Outcomes/Goals: to meet >75% est nutr needs Malnutrition Findings: Body Fat Depletion (Non Severe: Mild Depletion Weight Status: Overweight COLLETTE FALL MD Jan 13, 2017 13:05
[2017-01-13 14:43] VITALS: BP 104/57
[2017-01-13] MEDS ORDERED: ZINC56.7 TP (15:05)
[2017-01-13] MEDS ORDERED: LISI-334 PO (15:05)
[2017-01-13] MEDS ORDERED: MINE454C6 TP (15:05)
[2017-01-13] MEDS ORDERED: CETI10TA16 PO (15:05)
[2017-01-13] MEDS ORDERED: Nystatin TP (15:05)
[2017-01-13] MEDS ORDERED: HYDR28OI6 TP (15:05)
[2017-01-13] MEDS: HYDROCORTISONE 1% TOPICAL OINTMENT 30GM TUBE. TP SCH ×2 (15:30→22:15)
[2017-01-13] MEDS: MINERAL OIL/PETROLATUM TOPICAL CREAM 113GM JAR. TP SCH ×2 (15:30→22:15)
[2017-01-13] MEDS: NYSTATIN 100,000 UNIT/GM TOPICAL CREAM 15GM TUBE. TP SCH ×2 (15:30→22:16)
[2017-01-13] MEDS: ZINC OXIDE 20% TOPICAL OINTMENT 28GM TUBE. TP SCH ×2 (15:30→22:15)
[2017-01-13 19:00] VITALS: BP 107/45
[2017-01-13] MEDS: MONTELUKAST SODIUM 10 MG TABLET. PO SCH (22:15)
[2017-01-13] MEDS: ATORVASTATIN CALCIUM 10 MG TABLET. PO SCH (22:15)
[2017-01-13] MEDS: IV NORMAL SALINE 1000ML BAG 1,000 ML IV SCH (22:15)
[2017-01-13 23:00] VITALS: BP 111/38
[2017-01-14] VITALS (7 sets, daily range): BP systolic 92–116; BP diastolic 36–86
[2017-01-14 04:56] LABS: WHITE BLOOD COUNT 8.7 x10^3/uL (4.0-11.0)
[2017-01-14 04:57] LABS: BASO # 0.1 x10^3/uL (0.0-0.2); BASO % 1 % (0-3); EOS % 4 % (0-3); HEMOGLOBIN 9.5 g/dL (12.0-15.5); LYMPH # 1.8 x10^3/uL (1.0-4.8); LYMPH % 20 % (24-48); MEAN CORPUSCULAR HEMOGLOBIN 29 pg (25-35); MEAN CORPUSCULAR HGB CONC 32 g/dL (31-37); MEAN CORPUSCULAR VOLUME 93 fL (79-100); MONO % 10 % (0-9); NEUT % 65 % (31-73); PLATELET COUNT 196 x10^3/uL (140-400); RED BLOOD COUNT 3.23 x10^6/uL (3.50-5.40); RED CELL DISTRIBUTION WIDTH 17.7 % (11.5-14.5)
[2017-01-14 06:41] LABS: CALCIUM 7.4 mg/dL (8.5-10.1); CREATININE 1.3 mg/dL (0.6-1.0); GFR 39.6; POTASSIUM 4.3 mmol/L (3.5-5.1)
[2017-01-14] MEDS: CETIRIZINE HCL 10 MG TABLET. PO SCH (08:18)
[2017-01-14] MEDS: FUROSEMIDE 20 MG TABLET PO SCH (08:19)
[2017-01-14] MEDS: FERROUS SULFATE 325 MG TABLET. PO SCH (08:19)
[2017-01-14] MEDS: FAMOTIDINE 20 MG TABLET. PO SCH ×2 (08:19→22:28)
[2017-01-14] MEDS: ASPIRIN CHEWABLE 81 MG TABLET. PO SCH (08:19)
[2017-01-14] MEDS: CARVEDILOL 6.25 MG TABLET. PO SCH ×2 (08:21→17:18)
[2017-01-14] MEDS: ZINC OXIDE 20% TOPICAL OINTMENT 28GM TUBE. TP SCH ×2 (08:21→22:43)
[2017-01-14] MEDS: MINERAL OIL/PETROLATUM TOPICAL CREAM 113GM JAR. TP SCH ×3 (08:21→22:43)
[2017-01-14] MEDS: NYSTATIN 100,000 UNIT/GM TOPICAL CREAM 15GM TUBE. TP SCH ×2 (08:21→22:43)
[2017-01-14] MEDS: HYDROCORTISONE 1% TOPICAL OINTMENT 30GM TUBE. TP SCH ×2 (08:22→22:43)
[2017-01-14] MEDS: LISINOPRIL 20 MG TABLET PO SCH (08:28)
[2017-01-14] MEDS: VITS A & D/LANOLIN TOPICAL OINTMENT 56GM TUBE. TP SCH ×3 (08:28→22:43)
[2017-01-14] MEDS: NYSTATIN TOPICAL POWDER 15GM BOTTLE. TP SCH ×2 (08:28→22:43)
[2017-01-14] MEDS: IPRATRPIUM/ALBUTEROL 0.5/2.5MG 3 ML NEBU. NEB SCH ×4 (08:46→19:27)
--- NOTE | 2017-01-14 11:55 | PDOC ---
Infectious Disease Note Subjective Subjective Known to service please see Consult 12/09. 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 no wheezing HEART: S1S2 ABD: Soft, NT, BS present EXT: No edema, no cyanosis FORESTRY FIRE AID: Alert, oriented x 3, no focal neurologic deficit SKIN: Erythematous rash with component of exfoliation, arms, legs torso IV: ok Labs Lab Laboratory Tests Test 01/13/17 16:34 01/13/17 21:03 01/14/17 04:05 01/14/17 07:57 Glucose (Fingerstick) 92mg/dL (70-99) 90mg/dL (70-99) 70mg/dL (70-99) White Blood Count 8.7x10^3/uL (4.0-11.0) Red Blood Count 3.23x10^6/uL (3.50-5.40) Hemoglobin 9.5g/dL (12.0-15.5) Hematocrit 30.0% (36.0-47.0) Mean Corpuscular Volume 93fL (79-100) Mean Corpuscular Hemoglobin 29pg (25-35) Mean Corpuscular Hemoglobin Concent 32g/dL (31-37) Red Cell Distribution Width 17.7% (11.5-14.5) Platelet Count 196x10^3/uL (140-400) Neutrophils (%) (Auto) 65% (31-73) Lymphocytes (%) (Auto) 20% (24-48) Monocytes (%) (Auto) 10% (0-9) Eosinophils (%) (Auto) 4% (0-3) Basophils (%) (Auto) 1% (0-3) Neutrophils # (Auto) 5.7x10^3uL (1.8-7.7) Lymphocytes # (Auto) 1.8x10^3/uL (1.0-4.8) Monocytes # (Auto) 0.8x10^3/uL (0.0-1.1) Eosinophils # (Auto) 0.4x10^3/uL (0.0-0.7) Basophils # (Auto) 0.1x10^3/uL (0.0-0.2) Sodium Level 142mmol/L (136-145) Potassium Level 4.3mmol/L (3.5-5.1) Chloride Level 107mmol/L (98-107) Carbon Dioxide Level 24mmol/L (21-32) Anion Gap 11 (6-14) Blood Urea Nitrogen 25mg/dL (7-20) Creatinine 1.3mg/dL (0.6-1.0) Estimated GFR (Cockcroft-Gault) 39.6 Glucose Level 86mg/dL (70-99) Calcium Level 7.4mg/dL (8.5-10.1) Test 01/14/17 10:19 Glucose (Fingerstick) 91mg/dL (70-99) Objective Assessment 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 Mucus membranes not involved. stable Eosinophilia REY on CKD h/o Bactrim use 12/07 Debility Weakness CHF COPD on 02 at baseline 3 lites H/o E coli UTI 04/11/16 H/o MRSA + Plan Plan of Care Appreciated derm input Continue Zyrtec and Pepcid Avoid Benadryl if possible secondary to its sedative effects on elderyl Attending Co-Sign The patient was seen and interviewed as well as examined at the bedside. The chart was reviewed. The case was discussed. Agree with the plan of care. JULES MAGANA APRN Jan 14, 2017 11:55 OPAL NORTON MD Jan 14, 2017 15:16
--- NOTE | 2017-01-14 15:27 | PDOC ---
PROGRESS NOTES Chief Complaint Chief Complaint Rash ASSESSMENT AND PLAN: 1. Diffuse exfoliating erythematous rash: greatly appreciate Dr Gardiner's input: - intertrigo (treat with "mix" of Nystatin Cream, 1% hydrocortisone and Zinc Oxide Paste (nursing can mix and is cheaper than compounding)) and - adjacent partial exfoliative erythroderma (treat with aggressive applications of emollients (like Eucerin cream or equivalent) q shift. Use of Triamcinolone 2. REY on CKD3: vasomotor nephropathy, resolved, back to baseline 3. CHF: chronic diastolic 4. COPD. stable 5. HTN: well controlled on home regimen 6. Gout: no acute issues. on allopurinol 7. Obesity with mild to mod PCM History of Present Illness History of Present Illness scaling of skin redness better no fever Vitals Vitals Vital Signs Date Time Temp Pulse Resp B/P Pulse Ox O2 Delivery O2 Flow Rate FiO2 01/14/17 12:00 Nasal Cannula 2.0 01/14/17 10:34 110/50 01/14/17 10:33 98.8 79 21 92 98.8 Physical Exam General: Alert, Oriented X3, Cooperative, No acute distress Heart: Regular rate, No murmurs Lungs: Clear Abdomen: Normal bowel sounds, Soft Extremities: No clubbing, No cyanosis Skin: Other (diffuse erythema, trunk to back, worst in "wet areas" folds under breasts and in groin, under small pannus) Labs LABS Laboratory Tests Test 01/13/17 16:34 01/13/17 21:03 01/14/17 04:05 01/14/17 07:57 Glucose (Fingerstick) 92mg/dL (70-99) 90mg/dL (70-99) 70mg/dL (70-99) White Blood Count 8.7x10^3/uL (4.0-11.0) Red Blood Count 3.23x10^6/uL (3.50-5.40) Hemoglobin 9.5g/dL (12.0-15.5) Hematocrit 30.0% (36.0-47.0) Mean Corpuscular Volume 93fL (79-100) Mean Corpuscular Hemoglobin 29pg (25-35) Mean Corpuscular Hemoglobin Concent 32g/dL (31-37) Red Cell Distribution Width 17.7% (11.5-14.5) Platelet Count 196x10^3/uL (140-400) Neutrophils (%) (Auto) 65% (31-73) Lymphocytes (%) (Auto) 20% (24-48) Monocytes (%) (Auto) 10% (0-9) Eosinophils (%) (Auto) 4% (0-3) Basophils (%) (Auto) 1% (0-3) Neutrophils # (Auto) 5.7x10^3uL (1.8-7.7) Lymphocytes # (Auto) 1.8x10^3/uL (1.0-4.8) Monocytes # (Auto) 0.8x10^3/uL (0.0-1.1) Eosinophils # (Auto) 0.4x10^3/uL (0.0-0.7) Basophils # (Auto) 0.1x10^3/uL (0.0-0.2) Sodium Level 142mmol/L (136-145) Potassium Level 4.3mmol/L (3.5-5.1) Chloride Level 107mmol/L (98-107) Carbon Dioxide Level 24mmol/L (21-32) Anion Gap 11 (6-14) Blood Urea Nitrogen 25mg/dL (7-20) Creatinine 1.3mg/dL (0.6-1.0) Estimated GFR (Cockcroft-Gault) 39.6 Glucose Level 86mg/dL (70-99) Calcium Level 7.4mg/dL (8.5-10.1) Test 01/14/17 10:19 Glucose (Fingerstick) 91mg/dL (70-99) Assessment and Plan Assessmemt and Plan Problems Medical Problems: (1) CHF (congestive heart failure) Status: Acute Problems: Comment Review of Relevant I have reviewed the following items [place] (where applicable) has been applied. Labs Laboratory Tests Test 01/12/17 16:50 01/12/17 21:16 01/13/17 05:40 01/13/17 07:26 Glucose (Fingerstick) 75mg/dL (70-99) 77mg/dL (70-99) 83mg/dL (70-99) White Blood Count 7.8x10^3/uL (4.0-11.0) Red Blood Count 3.21x10^6/uL (3.50-5.40) Hemoglobin 9.4g/dL (12.0-15.5) Hematocrit 29.9% (36.0-47.0) Mean Corpuscular Volume 93fL (79-100) Mean Corpuscular Hemoglobin 29pg (25-35) Mean Corpuscular Hemoglobin Concent 32g/dL (31-37) Red Cell Distribution Width 17.6% (11.5-14.5) Platelet Count 207x10^3/uL (140-400) Neutrophils (%) (Auto) 59% (31-73) Lymphocytes (%) (Auto) 25% (24-48) Monocytes (%) (Auto) 11% (0-9) Eosinophils (%) (Auto) 5% (0-3) Basophils (%) (Auto) 1% (0-3) Neutrophils # (Auto) 4.6x10^3uL (1.8-7.7) Lymphocytes # (Auto) 1.9x10^3/uL (1.0-4.8) Monocytes # (Auto) 0.8x10^3/uL (0.0-1.1) Eosinophils # (Auto) 0.4x10^3/uL (0.0-0.7) Basophils # (Auto) 0.1x10^3/uL (0.0-0.2) Sodium Level 142mmol/L (136-145) Potassium Level 4.5mmol/L (3.5-5.1) Chloride Level 108mmol/L (98-107) Carbon Dioxide Level 24mmol/L (21-32) Anion Gap 10 (6-14) Blood Urea Nitrogen 25mg/dL (7-20) Creatinine 1.3mg/dL (0.6-1.0) Estimated GFR (Cockcroft-Gault) 39.6 BUN/Creatinine Ratio 19 (6-20) Glucose Level 89mg/dL (70-99) Calcium Level 7.6mg/dL (8.5-10.1) Total Bilirubin 0.4mg/dL (0.2-1.0) Aspartate Amino Transf (AST/SGOT) 16U/L (15-37) Alanine Aminotransferase (ALT/SGPT) 8U/L (14-59) Alkaline Phosphatase 58U/L (46-116) Total Protein 4.8g/dL (6.4-8.2) Albumin 1.8g/dL (3.4-5.0) Albumin/Globulin Ratio 0.6 (1.0-1.7) Test 01/13/17 11:48 01/13/17 16:34 01/13/17 21:03 01/14/17 04:05 Glucose (Fingerstick) 75mg/dL (70-99) 92mg/dL (70-99) 90mg/dL (70-99) White Blood Count 8.7x10^3/uL (4.0-11.0) Red Blood Count 3.23x10^6/uL (3.50-5.40) Hemoglobin 9.5g/dL (12.0-15.5) Hematocrit 30.0% (36.0-47.0) Mean Corpuscular Volume 93fL (79-100) Mean Corpuscular Hemoglobin 29pg (25-35) Mean Corpuscular Hemoglobin Concent 32g/dL (31-37) Red Cell Distribution Width 17.7% (11.5-14.5) Platelet Count 196x10^3/uL (140-400) Neutrophils (%) (Auto) 65% (31-73) Lymphocytes (%) (Auto) 20% (24-48) Monocytes (%) (Auto) 10% (0-9) Eosinophils (%) (Auto) 4% (0-3) Basophils (%) (Auto) 1% (0-3) Neutrophils # (Auto) 5.7x10^3uL (1.8-7.7) Lymphocytes # (Auto) 1.8x10^3/uL (1.0-4.8) Monocytes # (Auto) 0.8x10^3/uL (0.0-1.1) Eosinophils # (Auto) 0.4x10^3/uL (0.0-0.7) Basophils # (Auto) 0.1x10^3/uL (0.0-0.2) Sodium Level 142mmol/L (136-145) Potassium Level 4.3mmol/L (3.5-5.1) Chloride Level 107mmol/L (98-107) Carbon Dioxide Level 24mmol/L (21-32) Anion Gap 11 (6-14) Blood Urea Nitrogen 25mg/dL (7-20) Creatinine 1.3mg/dL (0.6-1.0) Estimated GFR (Cockcroft-Gault) 39.6 Glucose Level 86mg/dL (70-99) Calcium Level 7.4mg/dL (8.5-10.1) Test 01/14/17 07:57 01/14/17 10:19 Glucose (Fingerstick) 70mg/dL (70-99) 91mg/dL (70-99) Laboratory Tests Test 01/13/17 16:34 01/13/17 21:03 01/14/17 04:05 01/14/17 07:57 Glucose (Fingerstick) 92mg/dL (70-99) 90mg/dL (70-99) 70mg/dL (70-99) White Blood Count 8.7x10^3/uL (4.0-11.0) Red Blood Count 3.23x10^6/uL (3.50-5.40) Hemoglobin 9.5g/dL (12.0-15.5) Hematocrit 30.0% (36.0-47.0) Mean Corpuscular Volume 93fL (79-100) Mean Corpuscular Hemoglobin 29pg (25-35) Mean Corpuscular Hemoglobin Concent 32g/dL (31-37) Red Cell Distribution Width 17.7% (11.5-14.5) Platelet Count 196x10^3/uL (140-400) Neutrophils (%) (Auto) 65% (31-73) Lymphocytes (%) (Auto) 20% (24-48) Monocytes (%) (Auto) 10% (0-9) Eosinophils (%) (Auto) 4% (0-3) Basophils (%) (Auto) 1% (0-3) Neutrophils # (Auto) 5.7x10^3uL (1.8-7.7) Lymphocytes # (Auto) 1.8x10^3/uL (1.0-4.8) Monocytes # (Auto) 0.8x10^3/uL (0.0-1.1) Eosinophils # (Auto) 0.4x10^3/uL (0.0-0.7) Basophils # (Auto) 0.1x10^3/uL (0.0-0.2) Sodium Level 142mmol/L (136-145) Potassium Level 4.3mmol/L (3.5-5.1) Chloride Level 107mmol/L (98-107) Carbon Dioxide Level 24mmol/L (21-32) Anion Gap 11 (6-14) Blood Urea Nitrogen 25mg/dL (7-20) Creatinine 1.3mg/dL (0.6-1.0) Estimated GFR (Cockcroft-Gault) 39.6 Glucose Level 86mg/dL (70-99) Calcium Level 7.4mg/dL (8.5-10.1) Test 01/14/17 10:19 Glucose (Fingerstick) 91mg/dL (70-99) Medications Current Medications Acetaminophen (Tylenol) 325 mg PRN Q6HRS PRN PO MILD PAIN / TEMP; Start at 19:30 Acetaminophen/ Hydrocodone Bitart (Lortab 5/325) 1 tab PRN Q6HRS PRN PO MODERATE TO SEVERE PAIN; Start 01/11/17 at 19:30 Hydralazine HCl (Apresoline) 10 mg PRN Q4HRS PRN IVP ELEVATED BP, SEE COMMENTS ; Start 01/11/17 at 19:30 Albuterol Sulfate 2.5 mg 2.5 mg PRN Q4HRS PRN NEB SHORTNESS OF BREATH Last administered on 01/11/17 20:13; Start 01/11/17 at 19:30 Sodium Chloride (Iv Sodium Chloride 0.9% 1000ml Bag) 1,000 ml @ 40 mls/hr Q24H IV Last administered on 01/13/17 22:15; Start 01/11/17 at 19:30 Diphenhydramine HCl (Benadryl) 25 mg PRN Q6HRS PRN IVP ITCHING; Start 01/11/17 at 19:45; Stop 01/12/17 at 09:57; Status DC Famotidine (Pepcid) 20 mg BID PO Last administered on 01/14/17 08:19; Start at 21:00 Albuterol/ Ipratropium (Duoneb) 3 ml RTQID NEB Last administered on 01/14/17 12:00; Start 01/12/17 at 08:00 Darbepoetin Krzysztof (Aranesp) 60 mcg WEEKLYHS SQ Last administered on 01/12/17 21 :25; Start 01/12/17 at 21:00 Aspirin (Children'S Aspirin) 81 mg DAILYWBKFT PO Last administered on 08:19; Start 01/12/17 at 08:00 Carvedilol (Coreg) 6.25 mg BIDWMEALS PO Last administered on 01/14/17 08:21; Start 01/12/17 at 08:00 Ferrous Sulfate (Feosol) 325 mg DAILY08 PO Last administered on 01/14/17 08:19 ; Start 01/12/17 at 08:00 Fluconazole (Diflucan) 200 mg DAILY PO ; Start 01/12/17 at 09:00; Stop 01/12/17 at 09:34; Status DC Furosemide (Lasix) 20 mg DAILY PO Last administered on 01/14/17 08:19; Start 01/12/17 at 09:00 Lisinopril (Prinivil) 20 mg DAILY PO Last administered on 01/14/17 08:28; Start 01/12/17 at 09:00 Metformin HCl (Glucophage) 500 mg TIDWMEALS PO Last administered on 01/12/17 09:06; Start 01/12/17 at 08:00; Stop 01/12/17 at 09:57; Status DC Montelukast Sodium (Singulair) 10 mg QHS PO Last administered on 01/13/17 22: 15; Start 01/11/17 at 21:00 Nystatin (Nystop) 15 rea BID TP ; Start 01/11/17 at 21:00; Stop 01/11/17 at 21: 00; Status DC Atorvastatin Calcium (Lipitor) 5 mg QHS PO Last administered on 01/13/17 22:15 ; Start 01/11/17 at 21:00 Nystatin (Nystop) 1 rea BID TP Last administered on 01/14/17 08:28; Start at 21:00 Cetirizine HCl (Zyrtec) 10 mg DAILY PO Last administered on 01/14/17 08:18; Start 01/12/17 at 11:00 Albuterol/ Ipratropium (Duoneb) 3 ml RTQID NEB ; Start 01/12/17 at 12:00; Stop 01/12/17 at 12:00; Status DC Vitamin A/Vitamin D (Vitamin A & D Ointment) 1 rea TID TP Last administered on 01/14/17 14:00; Start 01/12/17 at 21:00 Nystatin (Mycostatin) 1 rea BID TP Last administered on 01/14/17 08:21; Start 01/13/17 at 15:30 Hydrocortisone (Cortaid) 1 rea BID TP Last administered on 01/14/17 08:22; Start 01/13/17 at 15:30 Zinc Oxide 1 rea BID TP Last administered on 01/14/17 08:21; Start 01/13/17 at 15:30 Multi-Ingred Cream/Lotion/Oil/ Oint (Hydrocerin) 1 rea TID TP Last administered on 01/14/17 14:00; Start 01/13/17 at 15:30 Active Scripts Active Zinc Oxide 56.7 Gm Oint...g. 1 Rea TP BID [Nystatin] 1 REA Rea 1 Rea TP BID Lisinopril 20 Mg Tablet 20 Mg PO DAILY Hydrocerin Cream (Mineral Oil/Petrolatum,White) 454 Gm Cream..g. 1 Rea TP TID Anti-Itch (Hydrocortisone Acetate) 28 Gm Oint...g. 1 Rea TP BID Cetirizine Hcl 10 Mg Tablet 10 Mg PO DAILY Montelukast Sodium Tablet (Montelukast Sodium) 10 Mg Tablet 10 Mg PO QHS Fluconazole 100 Mg Tablet 200 Mg PO DAILY Nystatin 15 Gm Powder 15 Gm TP BID Lisinopril 10 Mg Tablet 30 Mg PO DAILY Reported Tylenol (Acetaminophen) 325 Mg Tablet 650 Mg PO TID PRN PRN Metformin Hcl 500 Mg Tablet 1 Tab PO TID Aspir 81 (Aspirin) 81 Mg Tablet.dr 1 Tab PO DAILY Allopurinol 100 Mg Tablet 1 Tab PO DAILY Iron Supplement (Ferrous Sulfate) 325 Mg Tablet 1 Tab PO DAILY Advair 250-50 Diskus (Fluticasone/Salmeterol) 1 Each Disk.w.dev 1 Puff IH BID Duoneb 0.5-3(2.5) Mg/3 Ml (Albuterol/Ipratropium) 3 Ml Ampul.neb 3 Ml IH Q4HRS PRN Pravastatin Sodium 10 Mg Tablet 1 Tab PO DAILY Carvedilol 6.25 Mg Tablet 1 Tab PO BID Furosemide 40 Mg Tablet 1 Tab PO DAILY Vitals/I & O Vital Sign - Last 24 Hours 01/13/17 01/13/17 01/13/17 01/13/17 16:18 17:53 19:00 20:02 Temp 99.3 99.3 Pulse 81 79 Resp 20 B/P 104/57 107/45 Pulse Ox 97 96 O2 Delivery Nasal Cannula Nasal Cannula Nasal Cannula O2 Flow Rate 3.0 3.0 3.0 01/13/17 01/13/17 01/14/17 01/14/17 22:15 23:00 03:00 07:00 Temp 99.1 98.4 97.9 99.1 98.4 97.9 Pulse 84 69 86 Resp 18 18 20 B/P 111/38 92/43 116/56 Pulse Ox 93 92 93 O2 Delivery Nasal Cannula Nasal Cannula Nasal Cannula Nasal Cannula O2 Flow Rate 3.0 3.0 3.0 3.0 01/14/17 01/14/17 01/14/17 01/14/17 08:00 08:21 08:28 08:47 Pulse 86 86 B/P 116/56 116/56 Pulse Ox 97 O2 Delivery Nasal Cannula Nasal Cannula O2 Flow Rate 3.0 2.0 01/14/17 01/14/17 01/14/17 10:33 10:34 12:00 Temp 98.8 98.8 Pulse 79 Resp 21 B/P 106/51 110/50 Pulse Ox 92 O2 Delivery Nasal Cannula Nasal Cannula O2 Flow Rate 3.0 2.0 Intake and Output 01/13/17 01/13/17 01/14/17 15:00 23:00 07:00 Intake Total 480 ml 180 ml 660 ml Output Total 300 ml 100 ml Balance 180 ml 180 ml 560 ml Nutrition Consultation Dietary Evaluation: Comments: Pt refuses all supplements - encouraged adequate intake at meals Changed diet order to include ground meats per pt request Expected Outcomes/Goals: to meet >75% est nutr needs Malnutrition Findings: Body Fat Depletion (Non Severe: Mild Depletion Weight Status: Overweight DOLORES KRUEGER MD Jan 14, 2017 15:27
[2017-01-14] MEDS: ATORVASTATIN CALCIUM 10 MG TABLET. PO SCH (22:28)
[2017-01-14] MEDS: MONTELUKAST SODIUM 10 MG TABLET. PO SCH (22:28)
[2017-01-15 03:00] VITALS: BP 138/45
[2017-01-15 05:22] LABS: BASO # 0.1 x10^3/uL (0.0-0.2); BASO % 1 % (0-3); EOS % 6 % (0-3); HEMATOCRIT 26.9 % (36.0-47.0); HEMOGLOBIN 8.7 g/dL (12.0-15.5); LYMPH % 21 % (24-48); MEAN CORPUSCULAR HEMOGLOBIN 30 pg (25-35); MEAN CORPUSCULAR HGB CONC 32 g/dL (31-37); MEAN CORPUSCULAR VOLUME 92 fL (79-100); MONO % 9 % (0-9); NEUT % 63 % (31-73); PLATELET COUNT 191 x10^3/uL (140-400); RED BLOOD COUNT 2.93 x10^6/uL (3.50-5.40); RED CELL DISTRIBUTION WIDTH 17.4 % (11.5-14.5); WHITE BLOOD COUNT 9.2 x10^3/uL (4.0-11.0)
[2017-01-15 05:38] LABS: CALCIUM 7.3 mg/dL (8.5-10.1); CREATININE 1.5 mg/dL (0.6-1.0); GFR 33.6; POTASSIUM 4.2 mmol/L (3.5-5.1)
[2017-01-15 07:00] VITALS: BP 101/51
[2017-01-15] MEDS: IPRATRPIUM/ALBUTEROL 0.5/2.5MG 3 ML NEBU. NEB SCH ×4 (07:39→19:59)
[2017-01-15] MEDS: FERROUS SULFATE 325 MG TABLET. PO SCH (08:21)
[2017-01-15] MEDS: FAMOTIDINE 20 MG TABLET. PO SCH ×2 (08:21→20:20)
[2017-01-15] MEDS: CARVEDILOL 6.25 MG TABLET. PO SCH ×2 (08:21→17:00)
[2017-01-15] MEDS: CETIRIZINE HCL 10 MG TABLET. PO SCH (08:21)
[2017-01-15] MEDS: ASPIRIN CHEWABLE 81 MG TABLET. PO SCH (08:22)
[2017-01-15] MEDS: FUROSEMIDE 20 MG TABLET PO SCH (08:22)
[2017-01-15] MEDS: LISINOPRIL 20 MG TABLET PO SCH (08:22)
[2017-01-15] MEDS: VITS A & D/LANOLIN TOPICAL OINTMENT 56GM TUBE. TP SCH ×3 (09:00→20:22)
[2017-01-15] MEDS: NYSTATIN TOPICAL POWDER 15GM BOTTLE. TP SCH ×2 (09:00→20:22)
[2017-01-15] MEDS: NYSTATIN 100,000 UNIT/GM TOPICAL CREAM 15GM TUBE. TP SCH ×2 (09:00→20:22)
[2017-01-15] MEDS: MINERAL OIL/PETROLATUM TOPICAL CREAM 113GM JAR. TP SCH ×3 (09:00→20:23)
[2017-01-15] MEDS: ZINC OXIDE 20% TOPICAL OINTMENT 28GM TUBE. TP SCH ×2 (09:00→20:22)
[2017-01-15] MEDS: HYDROCORTISONE 1% TOPICAL OINTMENT 30GM TUBE. TP SCH ×2 (09:00→20:22)
[2017-01-15 11:00] VITALS: BP 118/49
--- NOTE | 2017-01-15 14:51 | PDOC ---
PROGRESS NOTES Chief Complaint Chief Complaint Rash ASSESSMENT AND PLAN: 1. Diffuse exfoliating erythematous rash: greatly appreciate Dr Gardiner's input: - intertrigo (treat with "mix" of Nystatin Cream, 1% hydrocortisone and Zinc Oxide Paste (nursing can mix and is cheaper than compounding)) and - adjacent partial exfoliative erythroderma (treat with aggressive applications of emollients (like Eucerin cream or equivalent) q shift. Use of Triamcinolone 2. REY on CKD3: vasomotor nephropathy, resolved, back to baseline 3. CHF: chronic diastolic 4. COPD. stable 5. HTN: well controlled on home regimen 6. Gout: no acute issues. on allopurinol 7. Obesity with mild to mod PCM 8. Physical debility: encourage to work with PT/OT, placement based on PT assessment, medically stable, History of Present Illness History of Present Illness scaling of skin redness better no fever Vitals Vitals Vital Signs Date Time Temp Pulse Resp B/P Pulse Ox O2 Delivery O2 Flow Rate FiO2 01/15/17 13:36 Nasal Cannula 3.5 01/15/17 11:00 98.1 77 20 118/49 97 98.1 Physical Exam General: Alert, Oriented X3, Cooperative, No acute distress Heart: Regular rate, No murmurs Lungs: Clear Abdomen: Normal bowel sounds, Soft Extremities: No clubbing, No cyanosis Skin: Other (diffuse erythema, trunk to back, worst in "wet areas" folds under breasts and in groin, under small pannus) Labs LABS Laboratory Tests Test 01/14/17 15:51 01/14/17 21:01 01/15/17 04:00 01/15/17 07:20 Glucose (Fingerstick) 105mg/dL (70-99) 117mg/dL (70-99) 89mg/dL (70-99) White Blood Count 9.2x10^3/uL (4.0-11.0) Red Blood Count 2.93x10^6/uL (3.50-5.40) Hemoglobin 8.7g/dL (12.0-15.5) Hematocrit 26.9% (36.0-47.0) Mean Corpuscular Volume 92fL (79-100) Mean Corpuscular Hemoglobin 30pg (25-35) Mean Corpuscular Hemoglobin Concent 32g/dL (31-37) Red Cell Distribution Width 17.4% (11.5-14.5) Platelet Count 191x10^3/uL (140-400) Neutrophils (%) (Auto) 63% (31-73) Lymphocytes (%) (Auto) 21% (24-48) Monocytes (%) (Auto) 9% (0-9) Eosinophils (%) (Auto) 6% (0-3) Basophils (%) (Auto) 1% (0-3) Neutrophils # (Auto) 5.8x10^3uL (1.8-7.7) Lymphocytes # (Auto) 2.0x10^3/uL (1.0-4.8) Monocytes # (Auto) 0.8x10^3/uL (0.0-1.1) Eosinophils # (Auto) 0.6x10^3/uL (0.0-0.7) Basophils # (Auto) 0.1x10^3/uL (0.0-0.2) Sodium Level 140mmol/L (136-145) Potassium Level 4.2mmol/L (3.5-5.1) Chloride Level 107mmol/L (98-107) Carbon Dioxide Level 25mmol/L (21-32) Anion Gap 8 (6-14) Blood Urea Nitrogen 29mg/dL (7-20) Creatinine 1.5mg/dL (0.6-1.0) Estimated GFR (Cockcroft-Gault) 33.6 Glucose Level 93mg/dL (70-99) Calcium Level 7.3mg/dL (8.5-10.1) Test 01/15/17 10:54 Glucose (Fingerstick) 106mg/dL (70-99) Assessment and Plan Assessmemt and Plan Problems Medical Problems: (1) CHF (congestive heart failure) Status: Acute Problems: Comment Review of Relevant I have reviewed the following items [place] (where applicable) has been applied. Labs Laboratory Tests Test 01/13/17 16:34 01/13/17 21:03 01/14/17 04:05 01/14/17 07:57 Glucose (Fingerstick) 92mg/dL (70-99) 90mg/dL (70-99) 70mg/dL (70-99) White Blood Count 8.7x10^3/uL (4.0-11.0) Red Blood Count 3.23x10^6/uL (3.50-5.40) Hemoglobin 9.5g/dL (12.0-15.5) Hematocrit 30.0% (36.0-47.0) Mean Corpuscular Volume 93fL (79-100) Mean Corpuscular Hemoglobin 29pg (25-35) Mean Corpuscular Hemoglobin Concent 32g/dL (31-37) Red Cell Distribution Width 17.7% (11.5-14.5) Platelet Count 196x10^3/uL (140-400) Neutrophils (%) (Auto) 65% (31-73) Lymphocytes (%) (Auto) 20% (24-48) Monocytes (%) (Auto) 10% (0-9) Eosinophils (%) (Auto) 4% (0-3) Basophils (%) (Auto) 1% (0-3) Neutrophils # (Auto) 5.7x10^3uL (1.8-7.7) Lymphocytes # (Auto) 1.8x10^3/uL (1.0-4.8) Monocytes # (Auto) 0.8x10^3/uL (0.0-1.1) Eosinophils # (Auto) 0.4x10^3/uL (0.0-0.7) Basophils # (Auto) 0.1x10^3/uL (0.0-0.2) Sodium Level 142mmol/L (136-145) Potassium Level 4.3mmol/L (3.5-5.1) Chloride Level 107mmol/L (98-107) Carbon Dioxide Level 24mmol/L (21-32) Anion Gap 11 (6-14) Blood Urea Nitrogen 25mg/dL (7-20) Creatinine 1.3mg/dL (0.6-1.0) Estimated GFR (Cockcroft-Gault) 39.6 Glucose Level 86mg/dL (70-99) Calcium Level 7.4mg/dL (8.5-10.1) Test 01/14/17 10:19 01/14/17 15:51 01/14/17 21:01 01/15/17 04:00 Glucose (Fingerstick) 91mg/dL (70-99) 105mg/dL (70-99) 117mg/dL (70-99) White Blood Count 9.2x10^3/uL (4.0-11.0) Red Blood Count 2.93x10^6/uL (3.50-5.40) Hemoglobin 8.7g/dL (12.0-15.5) Hematocrit 26.9% (36.0-47.0) Mean Corpuscular Volume 92fL (79-100) Mean Corpuscular Hemoglobin 30pg (25-35) Mean Corpuscular Hemoglobin Concent 32g/dL (31-37) Red Cell Distribution Width 17.4% (11.5-14.5) Platelet Count 191x10^3/uL (140-400) Neutrophils (%) (Auto) 63% (31-73) Lymphocytes (%) (Auto) 21% (24-48) Monocytes (%) (Auto) 9% (0-9) Eosinophils (%) (Auto) 6% (0-3) Basophils (%) (Auto) 1% (0-3) Neutrophils # (Auto) 5.8x10^3uL (1.8-7.7) Lymphocytes # (Auto) 2.0x10^3/uL (1.0-4.8) Monocytes # (Auto) 0.8x10^3/uL (0.0-1.1) Eosinophils # (Auto) 0.6x10^3/uL (0.0-0.7) Basophils # (Auto) 0.1x10^3/uL (0.0-0.2) Sodium Level 140mmol/L (136-145) Potassium Level 4.2mmol/L (3.5-5.1) Chloride Level 107mmol/L (98-107) Carbon Dioxide Level 25mmol/L (21-32) Anion Gap 8 (6-14) Blood Urea Nitrogen 29mg/dL (7-20) Creatinine 1.5mg/dL (0.6-1.0) Estimated GFR (Cockcroft-Gault) 33.6 Glucose Level 93mg/dL (70-99) Calcium Level 7.3mg/dL (8.5-10.1) Test 01/15/17 07:20 01/15/17 10:54 Glucose (Fingerstick) 89mg/dL (70-99) 106mg/dL (70-99) Laboratory Tests Test 01/14/17 15:51 01/14/17 21:01 01/15/17 04:00 01/15/17 07:20 Glucose (Fingerstick) 105mg/dL (70-99) 117mg/dL (70-99) 89mg/dL (70-99) White Blood Count 9.2x10^3/uL (4.0-11.0) Red Blood Count 2.93x10^6/uL (3.50-5.40) Hemoglobin 8.7g/dL (12.0-15.5) Hematocrit 26.9% (36.0-47.0) Mean Corpuscular Volume 92fL (79-100) Mean Corpuscular Hemoglobin 30pg (25-35) Mean Corpuscular Hemoglobin Concent 32g/dL (31-37) Red Cell Distribution Width 17.4% (11.5-14.5) Platelet Count 191x10^3/uL (140-400) Neutrophils (%) (Auto) 63% (31-73) Lymphocytes (%) (Auto) 21% (24-48) Monocytes (%) (Auto) 9% (0-9) Eosinophils (%) (Auto) 6% (0-3) Basophils (%) (Auto) 1% (0-3) Neutrophils # (Auto) 5.8x10^3uL (1.8-7.7) Lymphocytes # (Auto) 2.0x10^3/uL (1.0-4.8) Monocytes # (Auto) 0.8x10^3/uL (0.0-1.1) Eosinophils # (Auto) 0.6x10^3/uL (0.0-0.7) Basophils # (Auto) 0.1x10^3/uL (0.0-0.2) Sodium Level 140mmol/L (136-145) Potassium Level 4.2mmol/L (3.5-5.1) Chloride Level 107mmol/L (98-107) Carbon Dioxide Level 25mmol/L (21-32) Anion Gap 8 (6-14) Blood Urea Nitrogen 29mg/dL (7-20) Creatinine 1.5mg/dL (0.6-1.0) Estimated GFR (Cockcroft-Gault) 33.6 Glucose Level 93mg/dL (70-99) Calcium Level 7.3mg/dL (8.5-10.1) Test 01/15/17 10:54 Glucose (Fingerstick) 106mg/dL (70-99) Medications Current Medications Acetaminophen (Tylenol) 325 mg PRN Q6HRS PRN PO MILD PAIN / TEMP; Start at 19:30 Acetaminophen/ Hydrocodone Bitart (Lortab 5/325) 1 tab PRN Q6HRS PRN PO MODERATE TO SEVERE PAIN; Start 01/11/17 at 19:30 Hydralazine HCl (Apresoline) 10 mg PRN Q4HRS PRN IVP ELEVATED BP, SEE COMMENTS ; Start 01/11/17 at 19:30 Albuterol Sulfate 2.5 mg 2.5 mg PRN Q4HRS PRN NEB SHORTNESS OF BREATH Last administered on 01/11/17 20:13; Start 01/11/17 at 19:30 Sodium Chloride (Iv Sodium Chloride 0.9% 1000ml Bag) 1,000 ml @ 40 mls/hr Q24H IV Last administered on 01/13/17 22:15; Start 01/11/17 at 19:30; Stop at 13:39; Status DC Diphenhydramine HCl (Benadryl) 25 mg PRN Q6HRS PRN IVP ITCHING; Start 01/11/17 at 19:45; Stop 01/12/17 at 09:57; Status DC Famotidine (Pepcid) 20 mg BID PO Last administered on 01/15/17 08:21; Start at 21:00 Albuterol/ Ipratropium (Duoneb) 3 ml RTQID NEB Last administered on 01/15/17 07:39; Start 01/12/17 at 08:00 Darbepoetin Krzysztof (Aranesp) 60 mcg WEEKLYHS SQ Last administered on 01/12/17 21 :25; Start 01/12/17 at 21:00 Aspirin (Children'S Aspirin) 81 mg DAILYWBKFT PO Last administered on 08:22; Start 01/12/17 at 08:00 Carvedilol (Coreg) 6.25 mg BIDWMEALS PO Last administered on 01/15/17 08:21; Start 01/12/17 at 08:00 Ferrous Sulfate (Feosol) 325 mg DAILY08 PO Last administered on 01/15/17 08:21 ; Start 01/12/17 at 08:00 Fluconazole (Diflucan) 200 mg DAILY PO ; Start 01/12/17 at 09:00; Stop 01/12/17 at 09:34; Status DC Furosemide (Lasix) 20 mg DAILY PO Last administered on 01/15/17 08:22; Start 01/12/17 at 09:00 Lisinopril (Prinivil) 20 mg DAILY PO Last administered on 01/15/17 08:22; Start 01/12/17 at 09:00 Metformin HCl (Glucophage) 500 mg TIDWMEALS PO Last administered on 01/12/17 09:06; Start 01/12/17 at 08:00; Stop 01/12/17 at 09:57; Status DC Montelukast Sodium (Singulair) 10 mg QHS PO Last administered on 01/14/17 22: 28; Start 01/11/17 at 21:00 Nystatin (Nystop) 15 rea BID TP ; Start 01/11/17 at 21:00; Stop 01/11/17 at 21: 00; Status DC Atorvastatin Calcium (Lipitor) 5 mg QHS PO Last administered on 01/14/17 22:28 ; Start 01/11/17 at 21:00 Nystatin (Nystop) 1 rea BID TP Last administered on 01/15/17 09:00; Start at 21:00 Cetirizine HCl (Zyrtec) 10 mg DAILY PO Last administered on 01/15/17 08:21; Start 01/12/17 at 11:00 Albuterol/ Ipratropium (Duoneb) 3 ml RTQID NEB ; Start 01/12/17 at 12:00; Stop 01/12/17 at 12:00; Status DC Vitamin A/Vitamin D (Vitamin A & D Ointment) 1 rea TID TP Last administered on 01/15/17 13:46; Start 01/12/17 at 21:00 Nystatin (Mycostatin) 1 rea BID TP Last administered on 01/15/17 09:00; Start 01/13/17 at 15:30 Hydrocortisone (Cortaid) 1 rea BID TP Last administered on 01/15/17 09:00; Start 01/13/17 at 15:30 Zinc Oxide 1 rea BID TP Last administered on 01/15/17 09:00; Start 01/13/17 at 15:30 Multi-Ingred Cream/Lotion/Oil/ Oint (Hydrocerin) 1 rea TID TP Last administered on 01/15/17 13:46; Start 01/13/17 at 15:30 Active Scripts Active Zinc Oxide 56.7 Gm Oint...g. 1 Rea TP BID [Nystatin] 1 REA Rea 1 Rea TP BID Lisinopril 20 Mg Tablet 20 Mg PO DAILY Hydrocerin Cream (Mineral Oil/Petrolatum,White) 454 Gm Cream..g. 1 Rea TP TID Anti-Itch (Hydrocortisone Acetate) 28 Gm Oint...g. 1 Rea TP BID Cetirizine Hcl 10 Mg Tablet 10 Mg PO DAILY Montelukast Sodium Tablet (Montelukast Sodium) 10 Mg Tablet 10 Mg PO QHS Fluconazole 100 Mg Tablet 200 Mg PO DAILY Nystatin 15 Gm Powder 15 Gm TP BID Lisinopril 10 Mg Tablet 30 Mg PO DAILY Reported Tylenol (Acetaminophen) 325 Mg Tablet 650 Mg PO TID PRN PRN Metformin Hcl 500 Mg Tablet 1 Tab PO TID Aspir 81 (Aspirin) 81 Mg Tablet.dr 1 Tab PO DAILY Allopurinol 100 Mg Tablet 1 Tab PO DAILY Iron Supplement (Ferrous Sulfate) 325 Mg Tablet 1 Tab PO DAILY Advair 250-50 Diskus (Fluticasone/Salmeterol) 1 Each Disk.w.dev 1 Puff IH BID Duoneb 0.5-3(2.5) Mg/3 Ml (Albuterol/Ipratropium) 3 Ml Ampul.neb 3 Ml IH Q4HRS PRN Pravastatin Sodium 10 Mg Tablet 1 Tab PO DAILY Carvedilol 6.25 Mg Tablet 1 Tab PO BID Furosemide 40 Mg Tablet 1 Tab PO DAILY Vitals/I & O Vital Sign - Last 24 Hours 01/14/17 01/14/17 01/14/17 01/14/17 15:00 15:34 17:18 19:00 Temp 98.9 97.7 98.9 97.7 Pulse 78 78 77 Resp 20 20 B/P 110/48 110/48 92/38 Pulse Ox 97 95 O2 Delivery Nasal Cannula Nasal Cannula Nasal Cannula O2 Flow Rate 3.0 2.0 3.0 01/14/17 01/14/17 01/14/17 01/15/17 19:28 20:00 23:00 03:00 Temp 97.7 97.5 97.7 97.5 Pulse 76 79 Resp 20 20 B/P 98/86 138/45 Pulse Ox 96 95 100 O2 Delivery Nasal Cannula Nasal Cannula Nasal Cannula Nasal Cannula O2 Flow Rate 3.0 3.0 3.0 3.0 01/15/17 01/15/17 01/15/17 01/15/17 07:00 07:40 08:00 08:21 Temp 98.1 98.1 Pulse 78 78 Resp 20 B/P 101/51 101/51 Pulse Ox 96 97 O2 Delivery Nasal Cannula Nasal Cannula Nasal Cannula O2 Flow Rate 3.0 2.5 3.0 01/15/17 01/15/17 01/15/17 08:22 11:00 13:36 Temp 98.1 98.1 Pulse 78 77 Resp 20 B/P 101/51 118/49 Pulse Ox 97 O2 Delivery Nasal Cannula Nasal Cannula O2 Flow Rate 3.0 3.5 Intake and Output 01/14/17 01/14/17 01/15/17 15:00 23:00 07:00 Intake Total 500 ml 900 ml 680 ml Output Total 450 ml 200 ml Balance 500 ml 450 ml 480 ml Nutrition Consultation Dietary Evaluation: Comments: Pt refuses all supplements - encouraged adequate intake at meals Changed diet order to include ground meats per pt request Expected Outcomes/Goals: to meet >75% est nutr needs Malnutrition Findings: Body Fat Depletion (Non Severe: Mild Depletion Weight Status: Overweight DOLORES KRUEGER MD Jan 15, 2017 14:51
[2017-01-15 15:00] VITALS: BP_SYST 92; BP_SYST 96; BP_DIAS 36; BP_DIAS 39
[2017-01-15 19:00] VITALS: BP 97/37
[2017-01-15] MEDS: ATORVASTATIN CALCIUM 10 MG TABLET. PO SCH (20:20)
[2017-01-15] MEDS: MONTELUKAST SODIUM 10 MG TABLET. PO SCH (20:20)
[2017-01-15 23:00] VITALS: BP 106/48
[2017-01-16 03:00] VITALS: BP 95/41
[2017-01-16 04:06] LABS: CALCIUM 7.4 mg/dL (8.5-10.1); CREATININE 1.6 mg/dL (0.6-1.0); GFR 31.2; POTASSIUM 4.1 mmol/L (3.5-5.1)
[2017-01-16 04:18] LABS: BASO # 0.1 x10^3/uL (0.0-0.2); BASO % 1 % (0-3); EOS % 7 % (0-3); HEMOGLOBIN 8.5 g/dL (12.0-15.5); LYMPH # 2.1 x10^3/uL (1.0-4.8); LYMPH % 24 % (24-48); MEAN CORPUSCULAR HEMOGLOBIN 29 pg (25-35); MEAN CORPUSCULAR HGB CONC 31 g/dL (31-37); MEAN CORPUSCULAR VOLUME 93 fL (79-100); MONO % 8 % (0-9); NEUT % 61 % (31-73); PLATELET COUNT 192 x10^3/uL (140-400); RED BLOOD COUNT 2.91 x10^6/uL (3.50-5.40); RED CELL DISTRIBUTION WIDTH 17.4 % (11.5-14.5); WHITE BLOOD COUNT 8.9 x10^3/uL (4.0-11.0)
[2017-01-16 07:00] VITALS: BP 114/53
[2017-01-16] MEDS: IPRATRPIUM/ALBUTEROL 0.5/2.5MG 3 ML NEBU. NEB SCH ×4 (07:55→19:36)
[2017-01-16] MEDS: CARVEDILOL 6.25 MG TABLET. PO SCH ×2 (08:00→16:46)
[2017-01-16] MEDS: FUROSEMIDE 20 MG TABLET PO SCH (08:07)
[2017-01-16] MEDS: FERROUS SULFATE 325 MG TABLET. PO SCH (08:08)
[2017-01-16] MEDS: ASPIRIN CHEWABLE 81 MG TABLET. PO SCH (08:08)
[2017-01-16] MEDS: CETIRIZINE HCL 10 MG TABLET. PO SCH (08:08)
[2017-01-16] MEDS: FAMOTIDINE 20 MG TABLET. PO SCH (08:08)
[2017-01-16] MEDS: LISINOPRIL 20 MG TABLET PO SCH (08:10)
[2017-01-16] MEDS: NYSTATIN 100,000 UNIT/GM TOPICAL CREAM 15GM TUBE. TP SCH ×2 (09:00→19:44)
[2017-01-16] MEDS: ZINC OXIDE 20% TOPICAL OINTMENT 28GM TUBE. TP SCH ×2 (09:00→19:44)
[2017-01-16] MEDS: HYDROCORTISONE 1% TOPICAL OINTMENT 30GM TUBE. TP SCH ×2 (09:00→19:44)
[2017-01-16] MEDS: MINERAL OIL/PETROLATUM TOPICAL CREAM 113GM JAR. TP SCH ×3 (09:00→19:44)
[2017-01-16] MEDS: VITS A & D/LANOLIN TOPICAL OINTMENT 56GM TUBE. TP SCH ×3 (09:00→19:44)
[2017-01-16] MEDS: NYSTATIN TOPICAL POWDER 15GM BOTTLE. TP SCH ×2 (09:00→19:44)
--- NOTE | 2017-01-16 10:47 | PDOC ---
Infectious Disease Note Subjective Subjective feeling good says, still exfoliating skin ROS ROS GEN: Denies fevers, chills, sweats HEENT: Denies blurred vision, sore throat CV: Denies chest pain RESP: Denies shortness of air, cough GI: Denies n/v/d NEURO: Denies confusion, dizziness MSK: Denies weakness, joint pain/swelling Vital Sign Vital Signs Vital Signs Date Time Temp Pulse Resp B/P Pulse Ox O2 Delivery O2 Flow Rate FiO2 01/16/17 08:10 77 114/53 01/16/17 07:57 97 Nasal Cannula 3.0 01/16/17 07:00 97.9 20 97.9 Physical Exam PHYSICAL EXAM GENERAL: NAD, Alert HEENT: PERRL, OC/OP NECK: Supple, no JVD, no LN LUNGS: Clear HEART: S1S2, no gallop, no murmur ABD: Soft, NT, no organomegaly, no rebound EXT: No edema, no cyanosis KAIAWHINA: Alert, oriented x 3, no focal neurologic deficit SKIN: rash and exfoliation ++ IV: ok Labs Lab Laboratory Tests Test 01/15/17 10:54 01/15/17 16:30 01/15/17 21:22 01/16/17 03:10 Glucose (Fingerstick) 106mg/dL (70-99) 104mg/dL (70-99) 110mg/dL (70-99) White Blood Count 8.9x10^3/uL (4.0-11.0) Red Blood Count 2.91x10^6/uL (3.50-5.40) Hemoglobin 8.5g/dL (12.0-15.5) Hematocrit 27.0% (36.0-47.0) Mean Corpuscular Volume 93fL (79-100) Mean Corpuscular Hemoglobin 29pg (25-35) Mean Corpuscular Hemoglobin Concent 31g/dL (31-37) Red Cell Distribution Width 17.4% (11.5-14.5) Platelet Count 192x10^3/uL (140-400) Neutrophils (%) (Auto) 61% (31-73) Lymphocytes (%) (Auto) 24% (24-48) Monocytes (%) (Auto) 8% (0-9) Eosinophils (%) (Auto) 7% (0-3) Basophils (%) (Auto) 1% (0-3) Neutrophils # (Auto) 5.4x10^3uL (1.8-7.7) Lymphocytes # (Auto) 2.1x10^3/uL (1.0-4.8) Monocytes # (Auto) 0.7x10^3/uL (0.0-1.1) Eosinophils # (Auto) 0.6x10^3/uL (0.0-0.7) Basophils # (Auto) 0.1x10^3/uL (0.0-0.2) Sodium Level 140mmol/L (136-145) Potassium Level 4.1mmol/L (3.5-5.1) Chloride Level 108mmol/L (98-107) Carbon Dioxide Level 26mmol/L (21-32) Anion Gap 6 (6-14) Blood Urea Nitrogen 31mg/dL (7-20) Creatinine 1.6mg/dL (0.6-1.0) Estimated GFR (Cockcroft-Gault) 31.2 Glucose Level 93mg/dL (70-99) Calcium Level 7.4mg/dL (8.5-10.1) Test 01/16/17 07:20 Glucose (Fingerstick) 84mg/dL (70-99) Objective Assessment 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 Mucus membranes not involved. stable Eosinophilia REY on CKD h/o Bactrim use 12/07 Debility Weakness CHF COPD on 02 at baseline 3 lites H/o E coli UTI 04/11/16 H/o MRSA + Plan Plan of Care may consider steroids d/c home soon OPAL NORTON MD January 16, 2017 10:47
[2017-01-16 11:00] VITALS: BP 131/59
[2017-01-16] MEDS: predniSONE 20 MG TABLET PO SCH (12:31)
--- NOTE | 2017-01-16 13:57 | PDOC ---
PROGRESS NOTES Chief Complaint Chief Complaint Rash ASSESSMENT AND PLAN: 1. Diffuse exfoliating erythematous rash: likely 2/[address] Gardiner's input: - intertrigo (treat with "mix" of Nystatin Cream, 1% hydrocortisone and Zinc Oxide Paste (nursing can mix and is cheaper than compounding)) and - adjacent partial exfoliative erythroderma (treat with aggressive applications of emollients (like Eucerin cream or equivalent) q shift. Use of Triamcinolone 2. REY on CKD3 3. CHF: chronic diastolic 4. COPD. 5. HTN: 6. Gout: 7. Obesity with mild to mod PCM 8. Physical debility: encourage to work with PT/OT, placement based on PT assessment, medically stable, plan": as per nurse, pt's rash gets worse after using the multiple cream from derm. Pt is on steroid cream, likely not potent enough. ID would perfer no cream for today add po prednison for now dc home tmr with HH, need to fu with derm , likely need a stronger steroid cream wound care consult History of Present Illness History of Present Illness scaling of skin redness better no fever Vitals Vitals Vital Signs Date Time Temp Pulse Resp B/P Pulse Ox O2 Delivery O2 Flow Rate FiO2 01/16/17 12:12 95 Nasal Cannula 3.0 01/16/17 11:00 97.9 79 22 131/59 97.9 Physical Exam General: Alert, Oriented X3, Cooperative, No acute distress Heart: Regular rate, No murmurs Lungs: Clear Abdomen: Normal bowel sounds, Soft Extremities: No clubbing, No cyanosis Skin: Other (diffuse erythema, trunk to back, worst in "wet areas" folds under breasts and in groin, under small pannus) Labs LABS Laboratory Tests Test 01/15/17 16:30 01/15/17 21:22 01/16/17 03:10 01/16/17 07:20 Glucose (Fingerstick) 104mg/dL (70-99) 110mg/dL (70-99) 84mg/dL (70-99) White Blood Count 8.9x10^3/uL (4.0-11.0) Red Blood Count 2.91x10^6/uL (3.50-5.40) Hemoglobin 8.5g/dL (12.0-15.5) Hematocrit 27.0% (36.0-47.0) Mean Corpuscular Volume 93fL (79-100) Mean Corpuscular Hemoglobin 29pg (25-35) Mean Corpuscular Hemoglobin Concent 31g/dL (31-37) Red Cell Distribution Width 17.4% (11.5-14.5) Platelet Count 192x10^3/uL (140-400) Neutrophils (%) (Auto) 61% (31-73) Lymphocytes (%) (Auto) 24% (24-48) Monocytes (%) (Auto) 8% (0-9) Eosinophils (%) (Auto) 7% (0-3) Basophils (%) (Auto) 1% (0-3) Neutrophils # (Auto) 5.4x10^3uL (1.8-7.7) Lymphocytes # (Auto) 2.1x10^3/uL (1.0-4.8) Monocytes # (Auto) 0.7x10^3/uL (0.0-1.1) Eosinophils # (Auto) 0.6x10^3/uL (0.0-0.7) Basophils # (Auto) 0.1x10^3/uL (0.0-0.2) Sodium Level 140mmol/L (136-145) Potassium Level 4.1mmol/L (3.5-5.1) Chloride Level 108mmol/L (98-107) Carbon Dioxide Level 26mmol/L (21-32) Anion Gap 6 (6-14) Blood Urea Nitrogen 31mg/dL (7-20) Creatinine 1.6mg/dL (0.6-1.0) Estimated GFR (Cockcroft-Gault) 31.2 Glucose Level 93mg/dL (70-99) Calcium Level 7.4mg/dL (8.5-10.1) Test 01/16/17 11:41 Glucose (Fingerstick) 88mg/dL (70-99) Review of Systems Review of Systems no fever, chills, sob or chest pain Assessment and Plan Assessmemt and Plan Problems Medical Problems: (1) CHF (congestive heart failure) Status: Acute Problems: Comment Review of Relevant I have reviewed the following items [place] (where applicable) has been applied. Labs Laboratory Tests Test 01/14/17 15:51 01/14/17 21:01 01/15/17 04:00 01/15/17 07:20 Glucose (Fingerstick) 105mg/dL (70-99) 117mg/dL (70-99) 89mg/dL (70-99) White Blood Count 9.2x10^3/uL (4.0-11.0) Red Blood Count 2.93x10^6/uL (3.50-5.40) Hemoglobin 8.7g/dL (12.0-15.5) Hematocrit 26.9% (36.0-47.0) Mean Corpuscular Volume 92fL (79-100) Mean Corpuscular Hemoglobin 30pg (25-35) Mean Corpuscular Hemoglobin Concent 32g/dL (31-37) Red Cell Distribution Width 17.4% (11.5-14.5) Platelet Count 191x10^3/uL (140-400) Neutrophils (%) (Auto) 63% (31-73) Lymphocytes (%) (Auto) 21% (24-48) Monocytes (%) (Auto) 9% (0-9) Eosinophils (%) (Auto) 6% (0-3) Basophils (%) (Auto) 1% (0-3) Neutrophils # (Auto) 5.8x10^3uL (1.8-7.7) Lymphocytes # (Auto) 2.0x10^3/uL (1.0-4.8) Monocytes # (Auto) 0.8x10^3/uL (0.0-1.1) Eosinophils # (Auto) 0.6x10^3/uL (0.0-0.7) Basophils # (Auto) 0.1x10^3/uL (0.0-0.2) Sodium Level 140mmol/L (136-145) Potassium Level 4.2mmol/L (3.5-5.1) Chloride Level 107mmol/L (98-107) Carbon Dioxide Level 25mmol/L (21-32) Anion Gap 8 (6-14) Blood Urea Nitrogen 29mg/dL (7-20) Creatinine 1.5mg/dL (0.6-1.0) Estimated GFR (Cockcroft-Gault) 33.6 Glucose Level 93mg/dL (70-99) Calcium Level 7.3mg/dL (8.5-10.1) Test 01/15/17 10:54 01/15/17 16:30 01/15/17 21:22 01/16/17 03:10 Glucose (Fingerstick) 106mg/dL (70-99) 104mg/dL (70-99) 110mg/dL (70-99) White Blood Count 8.9x10^3/uL (4.0-11.0) Red Blood Count 2.91x10^6/uL (3.50-5.40) Hemoglobin 8.5g/dL (12.0-15.5) Hematocrit 27.0% (36.0-47.0) Mean Corpuscular Volume 93fL (79-100) Mean Corpuscular Hemoglobin 29pg (25-35) Mean Corpuscular Hemoglobin Concent 31g/dL (31-37) Red Cell Distribution Width 17.4% (11.5-14.5) Platelet Count 192x10^3/uL (140-400) Neutrophils (%) (Auto) 61% (31-73) Lymphocytes (%) (Auto) 24% (24-48) Monocytes (%) (Auto) 8% (0-9) Eosinophils (%) (Auto) 7% (0-3) Basophils (%) (Auto) 1% (0-3) Neutrophils # (Auto) 5.4x10^3uL (1.8-7.7) Lymphocytes # (Auto) 2.1x10^3/uL (1.0-4.8) Monocytes # (Auto) 0.7x10^3/uL (0.0-1.1) Eosinophils # (Auto) 0.6x10^3/uL (0.0-0.7) Basophils # (Auto) 0.1x10^3/uL (0.0-0.2) Sodium Level 140mmol/L (136-145) Potassium Level 4.1mmol/L (3.5-5.1) Chloride Level 108mmol/L (98-107) Carbon Dioxide Level 26mmol/L (21-32) Anion Gap 6 (6-14) Blood Urea Nitrogen 31mg/dL (7-20) Creatinine 1.6mg/dL (0.6-1.0) Estimated GFR (Cockcroft-Gault) 31.2 Glucose Level 93mg/dL (70-99) Calcium Level 7.4mg/dL (8.5-10.1) Test 01/16/17 07:20 01/16/17 11:41 Glucose (Fingerstick) 84mg/dL (70-99) 88mg/dL (70-99) Laboratory Tests Test 01/15/17 16:30 01/15/17 21:22 01/16/17 03:10 01/16/17 07:20 Glucose (Fingerstick) 104mg/dL (70-99) 110mg/dL (70-99) 84mg/dL (70-99) White Blood Count 8.9x10^3/uL (4.0-11.0) Red Blood Count 2.91x10^6/uL (3.50-5.40) Hemoglobin 8.5g/dL (12.0-15.5) Hematocrit 27.0% (36.0-47.0) Mean Corpuscular Volume 93fL (79-100) Mean Corpuscular Hemoglobin 29pg (25-35) Mean Corpuscular Hemoglobin Concent 31g/dL (31-37) Red Cell Distribution Width 17.4% (11.5-14.5) Platelet Count 192x10^3/uL (140-400) Neutrophils (%) (Auto) 61% (31-73) Lymphocytes (%) (Auto) 24% (24-48) Monocytes (%) (Auto) 8% (0-9) Eosinophils (%) (Auto) 7% (0-3) Basophils (%) (Auto) 1% (0-3) Neutrophils # (Auto) 5.4x10^3uL (1.8-7.7) Lymphocytes # (Auto) 2.1x10^3/uL (1.0-4.8) Monocytes # (Auto) 0.7x10^3/uL (0.0-1.1) Eosinophils # (Auto) 0.6x10^3/uL (0.0-0.7) Basophils # (Auto) 0.1x10^3/uL (0.0-0.2) Sodium Level 140mmol/L (136-145) Potassium Level 4.1mmol/L (3.5-5.1) Chloride Level 108mmol/L (98-107) Carbon Dioxide Level 26mmol/L (21-32) Anion Gap 6 (6-14) Blood Urea Nitrogen 31mg/dL (7-20) Creatinine 1.6mg/dL (0.6-1.0) Estimated GFR (Cockcroft-Gault) 31.2 Glucose Level 93mg/dL (70-99) Calcium Level 7.4mg/dL (8.5-10.1) Test 01/16/17 11:41 Glucose (Fingerstick) 88mg/dL (70-99) Medications Current Medications Acetaminophen (Tylenol) 325 mg PRN Q6HRS PRN PO MILD PAIN / TEMP; Start at 19:30 Acetaminophen/ Hydrocodone Bitart (Lortab 5/325) 1 tab PRN Q6HRS PRN PO MODERATE TO SEVERE PAIN; Start 01/11/17 at 19:30 Hydralazine HCl (Apresoline) 10 mg PRN Q4HRS PRN IVP ELEVATED BP, SEE COMMENTS ; Start 01/11/17 at 19:30 Albuterol Sulfate 2.5 mg 2.5 mg PRN Q4HRS PRN NEB SHORTNESS OF BREATH Last administered on 01/11/17 20:13; Start 01/11/17 at 19:30 Sodium Chloride (Iv Sodium Chloride 0.9% 1000ml Bag) 1,000 ml @ 40 mls/hr Q24H IV Last administered on 01/13/17 22:15; Start 01/11/17 at 19:30; Stop at 13:39; Status DC Diphenhydramine HCl (Benadryl) 25 mg PRN Q6HRS PRN IVP ITCHING; Start 01/11/17 at 19:45; Stop 01/12/17 at 09:57; Status DC Famotidine (Pepcid) 20 mg BID PO Last administered on 01/16/17 08:08; Start at 21:00; Stop 01/16/17 at 12:46; Status DC Albuterol/ Ipratropium (Duoneb) 3 ml RTQID NEB Last administered on 01/16/17 12 :11; Start 01/12/17 at 08:00 Darbepoetin Krzysztof (Aranesp) 60 mcg WEEKLYHS SQ Last administered on 01/12/17 21 :25; Start 01/12/17 at 21:00 Aspirin (Children'S Aspirin) 81 mg DAILYWBKFT PO Last administered on 01/16/17 08:08; Start 01/12/17 at 08:00 Carvedilol (Coreg) 6.25 mg BIDWMEALS PO Last administered on 01/15/17 08:21; Start 01/12/17 at 08:00 Ferrous Sulfate (Feosol) 325 mg DAILY08 PO Last administered on 01/16/17 08:08 ; Start 01/12/17 at 08:00 Fluconazole (Diflucan) 200 mg DAILY PO ; Start 01/12/17 at 09:00; Stop 01/12/17 at 09:34; Status DC Furosemide (Lasix) 20 mg DAILY PO Last administered on 01/16/17 08:07; Start at 09:00 Lisinopril (Prinivil) 20 mg DAILY PO Last administered on 01/15/17 08:22; Start 01/12/17 at 09:00 Metformin HCl (Glucophage) 500 mg TIDWMEALS PO Last administered on 01/12/17 09:06; Start 01/12/17 at 08:00; Stop 01/12/17 at 09:57; Status DC Montelukast Sodium (Singulair) 10 mg QHS PO Last administered on 01/15/17 20: 20; Start 01/11/17 at 21:00 Nystatin (Nystop) 15 rea BID TP ; Start 01/11/17 at 21:00; Stop 01/11/17 at 21: 00; Status DC Atorvastatin Calcium (Lipitor) 5 mg QHS PO Last administered on 01/15/17 20:20 ; Start 01/11/17 at 21:00 Nystatin (Nystop) 1 rea BID TP Last administered on 01/15/17 20:22; Start at 21:00 Cetirizine HCl (Zyrtec) 10 mg DAILY PO Last administered on 01/16/17 08:08; Start 01/12/17 at 11:00 Albuterol/ Ipratropium (Duoneb) 3 ml RTQID NEB ; Start 01/12/17 at 12:00; Stop 01/12/17 at 12:00; Status DC Vitamin A/Vitamin D (Vitamin A & D Ointment) 1 rea TID TP Last administered on 01/15/17 20:22; Start 01/12/17 at 21:00 Nystatin (Mycostatin) 1 rea BID TP Last administered on 01/15/17 20:22; Start 01/13/17 at 15:30 Hydrocortisone (Cortaid) 1 rea BID TP Last administered on 01/15/17 20:22; Start 01/13/17 at 15:30 Zinc Oxide 1 rea BID TP Last administered on 01/15/17 20:22; Start 01/13/17 at 15:30 Multi-Ingred Cream/Lotion/Oil/ Oint (Hydrocerin) 1 rea TID TP Last administered on 01/15/17 20:23; Start 01/13/17 at 15:30 Prednisone (Prednisone) 40 mg DAILY PO Last administered on 01/16/17 12:31; Start 01/16/17 at 12:00 Famotidine (Pepcid) 20 mg DAILY PO ; Start 01/17/17 at 09:00 Active Scripts Active Zinc Oxide 56.7 Gm Oint...g. 1 Rea TP BID [Nystatin] 1 REA Rea 1 Rea TP BID Lisinopril 20 Mg Tablet 20 Mg PO DAILY Hydrocerin Cream (Mineral Oil/Petrolatum,White) 454 Gm Cream..g. 1 Rea TP TID Anti-Itch (Hydrocortisone Acetate) 28 Gm Oint...g. 1 Rea TP BID Cetirizine Hcl 10 Mg Tablet 10 Mg PO DAILY Montelukast Sodium Tablet (Montelukast Sodium) 10 Mg Tablet 10 Mg PO QHS Fluconazole 100 Mg Tablet 200 Mg PO DAILY Nystatin 15 Gm Powder 15 Gm TP BID Lisinopril 10 Mg Tablet 30 Mg PO DAILY Reported Tylenol (Acetaminophen) 325 Mg Tablet 650 Mg PO TID PRN PRN Metformin Hcl 500 Mg Tablet 1 Tab PO TID Aspir 81 (Aspirin) 81 Mg Tablet.dr 1 Tab PO DAILY Allopurinol 100 Mg Tablet 1 Tab PO DAILY Iron Supplement (Ferrous Sulfate) 325 Mg Tablet 1 Tab PO DAILY Advair 250-50 Diskus (Fluticasone/Salmeterol) 1 Each Disk.w.dev 1 Puff IH BID Duoneb 0.5-3(2.5) Mg/3 Ml (Albuterol/Ipratropium) 3 Ml Ampul.neb 3 Ml IH Q4HRS PRN Pravastatin Sodium 10 Mg Tablet 1 Tab PO DAILY Carvedilol 6.25 Mg Tablet 1 Tab PO BID Furosemide 40 Mg Tablet 1 Tab PO DAILY Vitals/I & O Vital Sign - Last 24 Hours 01/15/17 01/15/17 01/15/17 01/15/17 15:00 15:00 16:18 17:00 Temp 98.6 98.6 Pulse 76 76 Resp 20 B/P 96/36 92/39 96/36 Pulse Ox 97 98 O2 Delivery Nasal Cannula Nasal Cannula O2 Flow Rate 3.0 3.5 01/15/17 01/15/17 01/15/17 01/15/17 19:00 19:59 20:00 23:00 Temp 99.0 98.0 99.0 98.0 Pulse 76 69 Resp 20 20 B/P 97/37 106/48 Pulse Ox 98 100 95 O2 Delivery Nasal Cannula Nasal Cannula Nasal Cannula O2 Flow Rate 3.0 3.0 3.0 3.0 01/16/17 01/16/17 01/16/17 01/16/17 03:00 07:00 07:45 07:57 Temp 97.5 97.9 97.5 97.9 Pulse 59 77 Resp 18 20 B/P 95/41 114/53 Pulse Ox 97 97 97 O2 Delivery Nasal Cannula Nasal Cannula Nasal Cannula Nasal Cannula O2 Flow Rate 3.0 3.0 3.0 3.0 01/16/17 01/16/17 01/16/17 01/16/17 08:00 08:10 11:00 12:12 Temp 97.9 97.9 Pulse 77 77 79 Resp 22 B/P 114/53 114/53 131/59 Pulse Ox 94 95 O2 Delivery Nasal Cannula Nasal Cannula O2 Flow Rate 3.0 3.0 Intake and Output 01/15/17 01/15/17 01/16/17 14:59 22:59 06:59 Intake Total 500 ml 550 ml 200 ml Balance 500 ml 550 ml 200 ml Nutrition Consultation Dietary Evaluation: Comments: Pt refuses all supplements - encouraged adequate intake at meals Changed diet order to include ground meats per pt request Expected Outcomes/Goals: to meet >75% est nutr needs Malnutrition Findings: Body Fat Depletion (Non Severe: Mild Depletion Weight Status: Overweight MILAN LUNA MD January 16, 2017 13:57
[2017-01-16 15:00] VITALS: BP 120/59
[2017-01-16 19:00] VITALS: BP 123/78
[2017-01-16] MEDS: MONTELUKAST SODIUM 10 MG TABLET. PO SCH (19:49)
[2017-01-16] MEDS: ATORVASTATIN CALCIUM 10 MG TABLET. PO SCH (19:49)
[2017-01-16] MEDS ORDERED: FAMOTIDINE 20 MG TABLET. PO SCH (21:00)
[2017-01-16 23:00] VITALS: BP 107/47
[2017-01-17 03:04] VITALS: BP 122/60
[2017-01-17 05:06] LABS: BASO % 0 % (0-3); EOS % 0 % (0-3); HEMOGLOBIN 8.7 g/dL (12.0-15.5); LYMPH # 1.2 x10^3/uL (1.0-4.8); LYMPH % 17 % (24-48); MEAN CORPUSCULAR HEMOGLOBIN 29 pg (25-35); MEAN CORPUSCULAR HGB CONC 32 g/dL (31-37); MEAN CORPUSCULAR VOLUME 91 fL (79-100); MONO % 4 % (0-9); NEUT % 79 % (31-73); PLATELET COUNT 184 x10^3/uL (140-400); RED BLOOD COUNT 2.96 x10^6/uL (3.50-5.40); RED CELL DISTRIBUTION WIDTH 17.6 % (11.5-14.5)
[2017-01-17 05:23] LABS: CALCIUM 7.7 mg/dL (8.5-10.1); CREATININE 1.2 mg/dL (0.6-1.0); GFR 43.4
[2017-01-17] MEDS: IPRATRPIUM/ALBUTEROL 0.5/2.5MG 3 ML NEBU. NEB SCH ×2 (07:11→11:08)
[2017-01-17 07:20] VITALS: BP 118/58
[2017-01-17] MEDS: CARVEDILOL 6.25 MG TABLET. PO SCH (08:00)
[2017-01-17] MEDS: FERROUS SULFATE 325 MG TABLET. PO SCH (08:23)
[2017-01-17] MEDS: ASPIRIN CHEWABLE 81 MG TABLET. PO SCH (08:23)
[2017-01-17] MEDS: NYSTATIN TOPICAL POWDER 15GM BOTTLE. TP SCH (09:00)
[2017-01-17] MEDS: NYSTATIN 100,000 UNIT/GM TOPICAL CREAM 15GM TUBE. TP SCH (09:00)
[2017-01-17] MEDS: ZINC OXIDE 20% TOPICAL OINTMENT 28GM TUBE. TP SCH (09:00)
[2017-01-17] MEDS: HYDROCORTISONE 1% TOPICAL OINTMENT 30GM TUBE. TP SCH (09:00)
[2017-01-17] MEDS: VITS A & D/LANOLIN TOPICAL OINTMENT 56GM TUBE. TP SCH (09:00)
[2017-01-17] MEDS: MINERAL OIL/PETROLATUM TOPICAL CREAM 113GM JAR. TP SCH (09:00)
[2017-01-17] MEDS ORDERED: FAMOTIDINE 20 MG TABLET. PO SCH (09:00)
[2017-01-17] MEDS: FUROSEMIDE 20 MG TABLET PO SCH (09:15)
[2017-01-17] MEDS: LISINOPRIL 20 MG TABLET PO SCH (09:16)
[2017-01-17] MEDS: predniSONE 20 MG TABLET PO SCH (09:16)
[2017-01-17] MEDS: CETIRIZINE HCL 10 MG TABLET. PO SCH (09:16)
--- NOTE | 2017-01-17 10:12 | PDOC ---
Infectious Disease Note Subjective Subjective feeling good says, skin better ROS ROS GEN: Denies fevers, chills, sweats HEENT: Denies blurred vision, sore throat CV: Denies chest pain RESP: Denies shortness of air, cough GI: Denies n/v/d NEURO: Denies confusion, dizziness MSK: Denies weakness, joint pain/swelling Vital Sign Vital Signs Vital Signs Date Time Temp Pulse Resp B/P Pulse Ox O2 Delivery O2 Flow Rate FiO2 01/17/17 09:16 88 118/58 01/17/17 07:30 Nasal Cannula 3.0 01/17/17 07:20 96.6 18 99 96.6 Physical Exam PHYSICAL EXAM GENERAL: NAD, Alert HEENT: PERRL, OC/OP NECK: Supple, no JVD, no LN LUNGS: Clear HEART: S1S2, no gallop, no murmur ABD: Soft, NT, no organomegaly, no rebound EXT: No edema, no cyanosis LIQUEFIED PETROLE[employer] GASFITTER: Alert, oriented x 3, no focal neurologic deficit SKIN: rash improving IV: ok Labs Lab Laboratory Tests Test 01/16/17 11:41 01/16/17 14:46 01/16/17 20:19 01/17/17 03:15 Glucose (Fingerstick) 88mg/dL (70-99) 166mg/dL (70-99) 260mg/dL (70-99) White Blood Count 7.0x10^3/uL (4.0-11.0) Red Blood Count 2.96x10^6/uL (3.50-5.40) Hemoglobin 8.7g/dL (12.0-15.5) Hematocrit 27.0% (36.0-47.0) Mean Corpuscular Volume 91fL (79-100) Mean Corpuscular Hemoglobin 29pg (25-35) Mean Corpuscular Hemoglobin Concent 32g/dL (31-37) Red Cell Distribution Width 17.6% (11.5-14.5) Platelet Count 184x10^3/uL (140-400) Neutrophils (%) (Auto) 79% (31-73) Lymphocytes (%) (Auto) 17% (24-48) Monocytes (%) (Auto) 4% (0-9) Eosinophils (%) (Auto) 0% (0-3) Basophils (%) (Auto) 0% (0-3) Neutrophils # (Auto) 5.5x10^3uL (1.8-7.7) Lymphocytes # (Auto) 1.2x10^3/uL (1.0-4.8) Monocytes # (Auto) 0.3x10^3/uL (0.0-1.1) Eosinophils # (Auto) 0.0x10^3/uL (0.0-0.7) Basophils # (Auto) 0.0x10^3/uL (0.0-0.2) Sodium Level 141mmol/L (136-145) Potassium Level 4.0mmol/L (3.5-5.1) Chloride Level 108mmol/L (98-107) Carbon Dioxide Level 26mmol/L (21-32) Anion Gap 7 (6-14) Blood Urea Nitrogen 31mg/dL (7-20) Creatinine 1.2mg/dL (0.6-1.0) Estimated GFR (Cockcroft-Gault) 43.4 Glucose Level 152mg/dL (70-99) Calcium Level 7.7mg/dL (8.5-10.1) Test 01/17/17 07:31 Glucose (Fingerstick) 166mg/dL (70-99) Objective Assessment 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 Mucus membranes not involved. stable Eosinophilia REY on CKD h/o Bactrim use 12/07 Debility Weakness CHF COPD on 02 at baseline 3 lites H/o E coli UTI 04/11/16 H/o MRSA + Plan Plan of Care steroids d/c home soon OPAL NORTON MD January 17, 2017 10:12
[2017-01-17] MEDS ORDERED: PRED20TA PO (10:24)
[2017-01-17 10:47] VITALS: BP 123/56
--- NOTE | 2017-01-17 13:48 | PDOC3 ---
Discharge Summary [facility] Date of Admission: Jan 11, 2017 Discharge Date: January 17, 2017 Admitting Diagnosis 1. Diffuse exfoliating erythematous rash: likely 2/2 severe ezema dermatitis appreciate Dr Gardiner's input: - intertrigo (treat with "mix" of Nystatin Cream, 1% hydrocortisone and Zinc Oxide Paste (nursing can mix and is cheaper than compounding)) and - adjacent partial exfoliative erythroderma (treat with aggressive applications of emollients (like Eucerin cream or equivalent) q shift. Use of Triamcinolone 2. REY on CKD3 3. CHF: chronic diastolic 4. COPD. 5. HTN: 6. Gout: 7. Obesity with mild to mod PCM 8. Physical debility: encourage to work with PT/OT, placement based on PT assessment, medically stable, Problems: Final Diagnosis CONSULTS derm id Brief Hospital Course Ms. Schwartz is a 76 old F, who was here recently for hypotension, fungus infection , dced to home recently from SNF, CAME for severe body rash, most at back with peeling, erythema. Dr. Gardiner recommend multiple cream for pt, which unfortunately made rash worse and we dced them rash is better with prednisone 40mg daily for only one time. pt needs to fu with derm, likely need a stronger steroid cream. dc with steroid tapering only for now. dc time 35min. General: Alert, Oriented X3, Cooperative, No acute distress Heart: Regular rate, No murmurs Lungs: Clear Abdomen: Normal bowel sounds, Soft Extremities: No clubbing, No cyanosis Skin: Other (diffuse erythema, trunk to back, worst in "wet areas" folds under breasts and in groin, under small pannus) Patient History: Family history: Hypertension (situation) Problems: Disposition HH CONDITION AT DISCHARGE: Improved, Stable Diet REgular Scheduled Aspirin (Aspir 81) 1 TAB PO DAILY (Reported) Carvedilol (Carvedilol) 1 TAB PO BID (Reported) Cetirizine Hcl (Cetirizine Hcl) 10 MG PO DAILY Ferrous Sulfate (Iron Supplement) 1 TAB PO DAILY (Reported) Fluticasone/Salmeterol (Advair 250-50 Diskus) 1 PUFF IH BID (Reported) Furosemide (Furosemide) 1 TAB PO DAILY (Reported) Lisinopril (Lisinopril) 20 MG PO DAILY Montelukast Sodium (Montelukast Sodium Tablet) 10 MG PO QHS Pravastatin Sodium (Pravastatin Sodium) 1 TAB PO DAILY (Reported) Prednisone (Prednisone) 40 MG PO DAILY Scheduled PRN Acetaminophen (Tylenol) 650 MG PO TID PRN PRN PRN PAIN (Reported) Ipratropium/Albuterol Sulfate (Duoneb 0.5-3(2.5) Mg/3 Ml) 3 ML IH Q4HRS PRN PRN CONGESTION (Reported) Discontinued Medications Allopurinol (Allopurinol) 1 TAB PO DAILY (Reported) Fluconazole (Fluconazole) 200 MG PO DAILY Lisinopril (Lisinopril) 30 MG PO DAILY Metformin Hcl (Metformin Hcl) 1 TAB PO TID (Reported) Nystatin (Nystatin) 15 GM TP BID Follow Up DERM MILAN Jean-Baptiste MD January 17, 2017 13:48
== END 2017-01-17 12:49 | DRG 606 ==
LOC: 5 NORTH 17:37
PROVIDERS: ADMIT Internal Medicine; ATTEND Internal Medicine
DX: L26 Exfoliative dermatitis (principal); N17.0 Acute kidney failure with tubular necrosis; E13.10 Other specified diabetes mellitus with ketoacidosis without coma; I50.32 Chronic diastolic (congestive) heart failure; E44.0 Moderate protein-calorie malnutrition; I13.0 Hypertensive heart and chronic kidney disease with heart failure and stage 1 through stage 4 chronic kidney disease, or unspecified chronic kidney disease; J96.10 Chronic respiratory failure, unspecified whether with hypoxia or hypercapnia; L30.4 Erythema intertrigo; J44.9 Chronic obstructive pulmonary disease, unspecified; D72.1 Eosinophilia; E66.9 Obesity, unspecified; Z68.30 Body mass index [BMI] 30.0-30.9, adult; E78.5 Hyperlipidemia, unspecified; I25.10 Atherosclerotic heart disease of native coronary artery without angina pectoris; L53.9 Erythematous condition, unspecified; M10.9 Gout, unspecified; N18.3 Chronic kidney disease, stage 3 (moderate); Z82.49 Family history of ischemic heart disease and other diseases of the circulatory system; Z86.14 Personal history of Methicillin resistant Staphylococcus aureus infection; E11.42 Type 2 diabetes mellitus with diabetic polyneuropathy
CPT/HCPCS: 36415; 80048; 80053; 82947; 85027; 87641; 94250; 94640; 94760; J0881; J7030; J7512; J7620; 97110; 97116; 97535

== ENCOUNTER 2018-01-23 11:58 | Inpatient (IN) | payer MEDICARE, OTHER ==
[2018-01-23] MEDS: IPRATRPIUM/ALBUTEROL 0.5/2.5MG 3 ML NEBU. NEB ×4 (12:48→19:35)
[2018-01-23 13:10] LABS: ADD MAN DIFF? NO
[2018-01-23] MEDS: methylPREDNISolone SOD SUCC PF 125 MG/2 ML VIAL. IV (13:11)
[2018-01-23 13:12] LABS: BASO % 1 % (0-3); EOS # 0.1 x10^3/uL (0.0-0.7); EOS % 1 % (0-3); HEMATOCRIT 30.5 % (36.0-47.0); HEMOGLOBIN 10.1 g/dL (12.0-15.5); LYMPH # 1.1 x10^3/uL (1.0-4.8); LYMPH % 14 % (24-48); MEAN CORPUSCULAR HEMOGLOBIN 31 pg (25-35); MEAN CORPUSCULAR HGB CONC 33 g/dL (31-37); MEAN CORPUSCULAR VOLUME 94 fL (79-100); MONO # 0.3 x10^3/uL (0.0-1.1); MONO % 3 % (0-9); NEUT # 6.8 x10^3uL (1.8-7.7); NEUT % 81 % (31-73); PLATELET COUNT 229 x10^3/uL (140-400); RED BLOOD COUNT 3.24 x10^6/uL (3.50-5.40); RED CELL DISTRIBUTION WIDTH 15.7 % (11.5-14.5); WHITE BLOOD COUNT 8.4 x10^3/uL (4.0-11.0)
[2018-01-23 13:23] LABS: ANION GAP 7 (6-14); BLOOD UREA NITROGEN 33 mg/dL (7-20); BUN/CREATININE RATIO 28 (6-20); CALCIUM 7.8 mg/dL (8.5-10.1); CARBON DIOXIDE 31 mmol/L (21-32); CHLORIDE 106 mmol/L (98-107); CREATININE 1.2 mg/dL (0.6-1.0); GFR 43.3; GLUCOSE 147 mg/dL (70-99); POTASSIUM 4.4 mmol/L (3.5-5.1); SODIUM 144 mmol/L (136-145)
[2018-01-23 13:30] LABS: ALBUMIN 2.5 g/dL (3.4-5.0); ALBUMIN/GLOBULIN RATIO 0.6 (1.0-1.7); ALK PHOS 91 U/L (46-116); ALT (SGPT) 16 U/L (14-59); AST (SGOT) 13 U/L (15-37); TOTAL BILIRUBIN 0.3 mg/dL (0.2-1.0); TOTAL PROTEIN 6.6 g/dL (6.4-8.2)
[2018-01-23 13:37] LABS: NT-PRO BNP 1207 pg/mL (0-449)
[2018-01-23] MEDS ORDERED: ONDANSETRON PF 4 MG/2 ML VIAL. IV ×2 (14:00→16:00)
[2018-01-23] MEDS ORDERED: MORPHINE SULFATE 4 MG/ML DISP.SYRIN. IV ×2 (14:00→16:00)
[2018-01-23] MEDS ORDERED: ACETAMINOPHEN 325 MG TABLET. PO ×3 (14:00→16:00)
[2018-01-23] MEDS: FUROSEMIDE 40 MG TABLET. PO ×2 (14:30→17:10)
[2018-01-23] MEDS: IV NORMAL SALINE 1000ML BAG 1,000 ML IV (14:38)
[2018-01-23] MEDS ORDERED: traMADol 50 MG TABLET PO (16:00)
[2018-01-23] MEDS ORDERED: DOCUSATE SODIUM 100 MG CAPSULE. PO (16:00)
[2018-01-23] MEDS ORDERED: IPRATRPIUM/ALBUTEROL 0.5/2.5MG 3 ML NEBU. IH (16:00)
[2018-01-23] MEDS ORDERED: hydrALAZINE 20 MG/ML VIAL. IVP (16:00)
[2018-01-23] MEDS ORDERED: PNEUMOCOCCAL VAX SCREEN BY RX. MC (16:45)
[2018-01-23] MEDS: NYSTATIN TOPICAL POWDER 15GM BOTTLE. TP ×2 (17:07→20:36)
[2018-01-23] MEDS: ENOXAPARIN 30 MG/0.3 ML SYRINGE. SQ (17:08)
[2018-01-23] MEDS: CARVEDILOL 6.25 MG TABLET. PO (17:08)
[2018-01-23] MEDS: BUDESONIDE 0.5 MG/2 ML NEBU. NEB (19:35)
[2018-01-23] MEDS: FAMOTIDINE 20 MG TABLET. PO (20:36)
[2018-01-23] MEDS: ATORVASTATIN CALCIUM 10 MG TABLET. PO (20:36)
[2018-01-23] MEDS: MONTELUKAST SODIUM 10 MG TABLET. PO (20:36)
[2018-01-24] MEDS: ALBUTEROL SULFATE 2.5 MG/3 ML NEBU. NEB (03:43)
[2018-01-24 03:56] LABS: BASO % 0 % (0-3); EOS % 0 % (0-3); HEMATOCRIT 27.9 % (36.0-47.0); HEMOGLOBIN 9.3 g/dL (12.0-15.5); LYMPH # 0.8 x10^3/uL (1.0-4.8); LYMPH % 13 % (24-48); MEAN CORPUSCULAR HEMOGLOBIN 31 pg (25-35); MEAN CORPUSCULAR HGB CONC 33 g/dL (31-37); MEAN CORPUSCULAR VOLUME 94 fL (79-100); MONO # 0.1 x10^3/uL (0.0-1.1); MONO % 2 % (0-9); NEUT # 5.6 x10^3uL (1.8-7.7); NEUT % 86 % (31-73); PLATELET COUNT 206 x10^3/uL (140-400); RED BLOOD COUNT 2.97 x10^6/uL (3.50-5.40); RED CELL DISTRIBUTION WIDTH 15.5 % (11.5-14.5); WHITE BLOOD COUNT 6.6 x10^3/uL (4.0-11.0)
[2018-01-24 03:57] LABS: ADD MAN DIFF? YES
[2018-01-24 05:19] LABS: ANION GAP 9 (6-14); BLOOD UREA NITROGEN 43 mg/dL (7-20); CALCIUM 8.1 mg/dL (8.5-10.1); CARBON DIOXIDE 29 mmol/L (21-32); CHLORIDE 105 mmol/L (98-107); CREATININE 1.6 mg/dL (0.6-1.0); GFR 31.1; GLUCOSE 160 mg/dL (70-99); POTASSIUM 4.4 mmol/L (3.5-5.1); SODIUM 143 mmol/L (136-145)
[2018-01-24] MEDS: BUDESONIDE 0.5 MG/2 ML NEBU. NEB ×2 (07:25→19:48)
[2018-01-24] MEDS: IPRATRPIUM/ALBUTEROL 0.5/2.5MG 3 ML NEBU. NEB ×4 (07:25→19:48)
[2018-01-24 08:26] LABS: % LYMPHS 8 % (24-48); % MONOS 3 % (0-10); % SEGS 89 % (35-66)
[2018-01-24 08:27] LABS: ANISOCYTOSIS SLIGHT; PLT ESTIMATE ADEQUATE (ADEQUATE)
[2018-01-24] MEDS ORDERED: FUROSEMIDE 40 MG TABLET. PO (09:00)
[2018-01-24] MEDS: ASPIRIN ENTERIC COATED 81 MG TABLET.DR. PO (10:05)
[2018-01-24] MEDS: FERROUS SULFATE 325 MG TABLET. PO (10:05)
[2018-01-24] MEDS: predniSONE 20 MG TABLET PO (10:06)
[2018-01-24] MEDS: CARVEDILOL 6.25 MG TABLET. PO ×2 (10:07→18:02)
[2018-01-24] MEDS: NYSTATIN TOPICAL POWDER 15GM BOTTLE. TP ×4 (10:07→21:04)
[2018-01-24] MEDS: CETIRIZINE HCL 10 MG TABLET. PO (10:07)
[2018-01-24] MEDS: ENOXAPARIN 30 MG/0.3 ML SYRINGE. SQ (18:03)
[2018-01-24] MEDS: MONTELUKAST SODIUM 10 MG TABLET. PO (21:04)
[2018-01-24] MEDS: FAMOTIDINE 20 MG TABLET. PO (21:04)
[2018-01-24] MEDS: ATORVASTATIN CALCIUM 10 MG TABLET. PO (21:04)
[2018-01-25 04:29] LABS: HEMATOCRIT 26.9 % (36.0-47.0); HEMOGLOBIN 8.9 g/dL (12.0-15.5); MEAN CORPUSCULAR HEMOGLOBIN 31 pg (25-35); MEAN CORPUSCULAR HGB CONC 33 g/dL (31-37); MEAN CORPUSCULAR VOLUME 94 fL (79-100); PLATELET COUNT 187 x10^3/uL (140-400); RED BLOOD COUNT 2.85 x10^6/uL (3.50-5.40); RED CELL DISTRIBUTION WIDTH 15.4 % (11.5-14.5); WHITE BLOOD COUNT 8.6 x10^3/uL (4.0-11.0)
[2018-01-25 04:51] LABS: ALBUMIN 2.2 g/dL (3.4-5.0); ALBUMIN/GLOBULIN RATIO 0.6 (1.0-1.7); ALK PHOS 73 U/L (46-116); ALT (SGPT) 21 U/L (14-59); ANION GAP 7 (6-14); AST (SGOT) 25 U/L (15-37); BLOOD UREA NITROGEN 46 mg/dL (7-20); BUN/CREATININE RATIO 38 (6-20); CALCIUM 8.1 mg/dL (8.5-10.1); CARBON DIOXIDE 29 mmol/L (21-32); CHLORIDE 105 mmol/L (98-107); CREATININE 1.2 mg/dL (0.6-1.0); GFR 43.3; GLUCOSE 97 mg/dL (70-99); POTASSIUM 4.5 mmol/L (3.5-5.1); SODIUM 141 mmol/L (136-145); TOTAL BILIRUBIN 0.4 mg/dL (0.2-1.0); TOTAL PROTEIN 5.8 g/dL (6.4-8.2)
[2018-01-25] MEDS: BUDESONIDE 0.5 MG/2 ML NEBU. NEB ×2 (08:00→19:33)
[2018-01-25] MEDS: IPRATRPIUM/ALBUTEROL 0.5/2.5MG 3 ML NEBU. NEB ×4 (08:00→19:33)
[2018-01-25] MEDS ORDERED: LISINOPRIL 20 MG TABLET PO (09:00)
[2018-01-25] MEDS: ASPIRIN ENTERIC COATED 81 MG TABLET.DR. PO (09:52)
[2018-01-25] MEDS: CETIRIZINE HCL 10 MG TABLET. PO (09:53)
[2018-01-25] MEDS: predniSONE 20 MG TABLET PO (09:53)
[2018-01-25] MEDS: FERROUS SULFATE 325 MG TABLET. PO (09:53)
[2018-01-25] MEDS: LISINOPRIL 20 MG TABLET PO (09:53)
[2018-01-25] MEDS: CARVEDILOL 6.25 MG TABLET. PO ×2 (09:54→17:20)
[2018-01-25] MEDS: FUROSEMIDE 40 MG TABLET. PO (09:54)
[2018-01-25] MEDS: NYSTATIN TOPICAL POWDER 15GM BOTTLE. TP ×4 (09:55→20:48)
[2018-01-25 09:59] LABS: SEDIMENTATION RATE 25 (0-25)
[2018-01-25] MEDS: SPIRONOLACTONE 25 MG TABLET PO (17:20)
[2018-01-25] MEDS: ENOXAPARIN 30 MG/0.3 ML SYRINGE. SQ (17:21)
[2018-01-25] MEDS: FAMOTIDINE 20 MG TABLET. PO (20:46)
[2018-01-25] MEDS: ATORVASTATIN CALCIUM 10 MG TABLET. PO (20:46)
[2018-01-25] MEDS: MONTELUKAST SODIUM 10 MG TABLET. PO (20:46)
[2018-01-26 05:25] LABS: C DIFF BY PCR Negative (Negative)
[2018-01-26 06:13] LABS: HEMATOCRIT 29.8 % (36.0-47.0); HEMOGLOBIN 9.9 g/dL (12.0-15.5); MEAN CORPUSCULAR HEMOGLOBIN 31 pg (25-35); MEAN CORPUSCULAR HGB CONC 33 g/dL (31-37); MEAN CORPUSCULAR VOLUME 95 fL (79-100); PLATELET COUNT 202 x10^3/uL (140-400); RED BLOOD COUNT 3.15 x10^6/uL (3.50-5.40); RED CELL DISTRIBUTION WIDTH 15.8 % (11.5-14.5); WHITE BLOOD COUNT 7.7 x10^3/uL (4.0-11.0)
[2018-01-26 06:20] LABS: ANION GAP 6 (6-14); BLOOD UREA NITROGEN 49 mg/dL (7-20); CALCIUM 8.2 mg/dL (8.5-10.1); CARBON DIOXIDE 30 mmol/L (21-32); CHLORIDE 105 mmol/L (98-107); CREATININE 1.6 mg/dL (0.6-1.0); GFR 31.1; GLUCOSE 101 mg/dL (70-99); POTASSIUM 4.3 mmol/L (3.5-5.1); SODIUM 141 mmol/L (136-145)
[2018-01-26] MEDS: BUDESONIDE 0.5 MG/2 ML NEBU. NEB (07:08)
[2018-01-26] MEDS: IPRATRPIUM/ALBUTEROL 0.5/2.5MG 3 ML NEBU. NEB ×2 (07:08→12:31)
[2018-01-26 08:23] LABS: SEDIMENTATION RATE 32 (0-25)
[2018-01-26] MEDS: CETIRIZINE HCL 10 MG TABLET. PO (09:00)
[2018-01-26] MEDS: NYSTATIN TOPICAL POWDER 15GM BOTTLE. TP ×2 (09:14→13:00)
[2018-01-26] MEDS: ASPIRIN ENTERIC COATED 81 MG TABLET.DR. PO (09:14)
[2018-01-26] MEDS: SPIRONOLACTONE 25 MG TABLET PO (09:14)
[2018-01-26] MEDS: FERROUS SULFATE 325 MG TABLET. PO (09:14)
[2018-01-26] MEDS: CARVEDILOL 6.25 MG TABLET. PO (09:15)
[2018-01-26] MEDS: predniSONE 20 MG TABLET PO (09:15)
[2018-01-26] MEDS: LISINOPRIL 20 MG TABLET PO (09:15)
[2018-01-26] MEDS: FUROSEMIDE 40 MG TABLET. PO (09:15)
== END 2018-01-26 15:10 | disposition home or self-care (01) | DRG 682 ==
LOC: ER 11:58 → ED HOLD 13:41 → 5 SOUTH 15:43
DX: N17.9 Acute kidney failure, unspecified (principal); J96.21 Acute and chronic respiratory failure with hypoxia; E44.0 Moderate protein-calorie malnutrition; J44.1 Chronic obstructive pulmonary disease with (acute) exacerbation; I50.32 Chronic diastolic (congestive) heart failure; I13.0 Hypertensive heart and chronic kidney disease with heart failure and stage 1 through stage 4 chronic kidney disease, or unspecified chronic kidney disease; N18.3 Chronic kidney disease, stage 3 (moderate); I25.10 Atherosclerotic heart disease of native coronary artery without angina pectoris; E78.5 Hyperlipidemia, unspecified; E78.00 Pure hypercholesterolemia, unspecified; D64.9 Anemia, unspecified; G62.9 Polyneuropathy, unspecified; I27.20 Pulmonary hypertension, unspecified; Z82.49 Family history of ischemic heart disease and other diseases of the circulatory system; Z99.81 Dependence on supplemental oxygen; Z68.30 Body mass index [BMI] 30.0-30.9, adult
CPT/HCPCS: 36415; 71045; 80048; 80053; 83880; 85007; 85025; 85027; 85651; 87324; 93005; 93970; 94618; 94640; 94760; 96361; 96374; 97110-GO; 97110-GP; 97116-GP; 97162-GP; 97166-GO; 97530-GP; 97535-GO; 99285; 99285-25; J1650; J2930; J7030; J7512; J7613; J7620; J7626

== ENCOUNTER 2018-06-02 15:30 | Inpatient (IN) | payer MEDICARE, OTHER ==
[~2018-06-02] VITALS: Ht 154.9 cm; Wt 71.2 kg
[~2018-06-02 15:30] MED LIST changes: +CETI10TA16 PO; +FURO20TA3 PO; +GUAI600T47 PO; +HYDR28OI6 TP; -IPRA3AMP IH; +IPRA3AMP29 IH; +LEVO250T25 PO; +METF500T16 PO; -METF500T4 PO; +MINE454C6 TP; +NYST60PO TP; +Nystatin TP; -OMEP20TA PO; +OMEP20TA8 PO; +PRED20TA PO; +SPIR25TA PO; -SUCR1TAB29 PO; +SUCR1TAB35 PO; +ZINC56.7 TP
[2018-06-02] MEDS ORDERED: methylPREDNISolone SOD SUCC PF 125 MG/2 ML VIAL. IV ONE (15:45)
--- NOTE | 2018-06-02 16:08 | PHYS DOC ---
Past Medical History Past Medical History: CHF, COPD, Diabetes-Type II, High Cholesterol, Hypertension, MRSA Past Surgical History: Cholecystectomy Alcohol Use: None Drug Use: None Adult General Chief Complaint Chief Complaint: shortness of breath HPI HPI Patient is a 78 year old female who brought in by EMS because of shortness of breath. Patient has history of COPD on 4 L of home oxygen complaining of chronic shortness of breath that getting worse today. Patient denies fever and chills, chest pain, nasal congestion, cough and sputum, generalized weakness. Patient states she usually calls 911. The first day she gets shortness of breath because she lives by herself. Review of Systems Review of Systems Constitutional: Denies fever or chills [] Eyes: Denies change in visual acuity, redness, or eye pain [] HENT: Denies nasal congestion or sore throat [] Respiratory: Reports shortness of breath [] Cardiovascular: No additional information not addressed in HPI [] GI: Denies abdominal pain, nausea, vomiting, bloody stools or diarrhea [] : Denies dysuria or hematuria [] Musculoskeletal: Denies back pain or joint pain [] Integument: Denies rash or skin lesions [] Neurologic: Denies headache, focal weakness or sensory changes [] Endocrine: Denies polyuria or polydipsia [] All other systems were reviewed and found to be within normal limits, except as documented in this note. Current Medications Current Medications Current Medications Medications (Trade) Dose Ordered Sig/Eva Start Time Stop Time Status Last Admin Dose Admin Ceftriaxone Sodium 1 gm/ Dextrose 50 ml @ 100 mls/hr Q24H 06/02/18 16:45 UNV Ceftriaxone Sodium 50 ml @ 100 mls/hr 1X ONCE 06/02/18 17:00 06/02/18 17:29 Methylprednisolone Sodium Succinate (SOLU-Medrol 125MG VIAL) 125 mg 1X ONCE 06/02/18 15:45 06/02/18 15:46 DC Allergies Allergies Allergies Coded Allergies Type Severity Reaction Last Updated Verified doxycycline Allergy Intermediate Rash 02/16/18 Yes I S O L A T I O N *CONTACT* Allergy Unknown 12/12/16 Yes Physical Exam Physical Exam Constitutional: Well developed, well nourished, moderate distress, non-toxic appearance. [] HENT: Normocephalic, atraumatic, oropharynx moist, no oral exudates, nose normal. [] Eyes: PERRLA, EOMI, conjunctiva normal, no discharge. [] Neck: Normal range of motion, no tenderness, supple, no stridor. [] Cardiovascular:Heart rate regular rhythm, no murmur [] Lungs & Thorax: Mild respiratory distress, intercostal retraction, decrease of air movement and bibasilar rhonchi and wheezing Abdomen: Bowel sounds normal, soft, no tenderness, no masses, no pulsatile masses. [] Skin: Warm, dry, no erythema, no rash. [] Back: No tenderness, no CVA tenderness. [] Extremities: No tenderness, no cyanosis, no clubbing, ROM intact, no edema. [] Neurologic: Alert and oriented X 3, normal motor function, normal sensory function, no focal deficits noted. [] Psychologic: Affect normal, judgement normal, mood normal. [] Current Patient Data Lab Values Laboratory Tests Test 06/02/18 15:38 06/02/18 16:05 O2 Saturation 80 % (92-99) L Arterial Blood pH 7.48 (7.35-7.45) H Arterial Blood pH (Temp corrected) 7.48 Arterial Blood pCO2 at Patient Temp 40 mmHg (35-46) Arterial Blood pCO2 (Temp correct) 40 mmHg Arterial Blood pO2 at Patient Temp 44 mmHg (65-108) *L Arterial Blood pO2 (Temp corrected) 44 mmHg Arterial Blood HCO3 29 mmol/L (21-28) H Arterial Blood Base Excess 5 mmol/L (-3-3) H FiO2 21.0 White Blood Count 14.2 x10^3/uL (4.0-11.0) H Red Blood Count 4.01 x10^6/uL (3.50-5.40) Hemoglobin 10.9 g/dL (12.0-15.5) L Hematocrit 33.5 % (36.0-47.0) L Mean Corpuscular Volume 84 fL (79-100) Mean Corpuscular Hemoglobin 27 pg (25-35) Mean Corpuscular Hemoglobin Concent 33 g/dL (31-37) Red Cell Distribution Width 16.6 % (11.5-14.5) H Platelet Count 226 x10^3/uL (140-400) Neutrophils (%) (Auto) 75 % (31-73) H Lymphocytes (%) (Auto) 15 % (24-48) L Monocytes (%) (Auto) 7 % (0-9) Eosinophils (%) (Auto) 3 % (0-3) Basophils (%) (Auto) 1 % (0-3) Neutrophils # (Auto) 10.6 x10^3uL (1.8-7.7) H Lymphocytes # (Auto) 2.1 x10^3/uL (1.0-4.8) Monocytes # (Auto) 1.0 x10^3/uL (0.0-1.1) Eosinophils # (Auto) 0.4 x10^3/uL (0.0-0.7) Basophils # (Auto) 0.1 x10^3/uL (0.0-0.2) Prothrombin Time 13.5 SEC (11.7-14.0) Prothrombin Time INR 1.1 (0.8-1.1) D-Dimer (Sangeetha) 1.67 ug/mlFEU (0.00-0.50) H Sodium Level 140 mmol/L (136-145) Potassium Level 4.2 mmol/L (3.5-5.1) Chloride Level 100 mmol/L (98-107) Carbon Dioxide Level 35 mmol/L (21-32) H Anion Gap 5 (6-14) L Blood Urea Nitrogen 19 mg/dL (7-20) Creatinine 1.1 mg/dL (0.6-1.0) H Estimated GFR (Cockcroft-Gault) 47.8 BUN/Creatinine Ratio 17 (6-20) Glucose Level 122 mg/dL (70-99) H Lactic Acid Level 1.0 mmol/L (0.4-2.0) Calcium Level 8.5 mg/dL (8.5-10.1) Magnesium Level 1.8 mg/dL (1.8-2.4) Total Bilirubin 0.7 mg/dL (0.2-1.0) Aspartate Amino Transferase (AST) 14 U/L (15-37) L Alanine Aminotransferase (ALT) 17 U/L (14-59) Alkaline Phosphatase 84 U/L (46-116) Creatine Kinase 12 U/L (26-192) L Troponin I Quantitative < 0.017 ng/mL (0.000-0.055) MT-Gck-C-Type Natriuretic Peptide 980 pg/mL (0-449) H Total Protein 6.7 g/dL (6.4-8.2) Albumin 2.4 g/dL (3.4-5.0) L Albumin/Globulin Ratio 0.6 (1.0-1.7) L Laboratory Tests 06/02/18 16:05 Laboratory Tests 06/02/18 16:05 EKG EKG EKG interpreted by me. EKG at 1044 showed sinus rhythm with frequent PVCs, abnormal T waves in lateral leads, no acute ST and T-wave abnormalities. Radiology/Procedures Radiology/Procedures [facility] [address] [place] [address] IMAGING REPORT Signed PATIENT: ALKA CASTILLO ACCOUNT: [id number] : 1940 LOCATION: ER AGE: 78 SEX: F EXAM STATUS: PRE ER ORD. PHYSICIAN: AMRIT ANNE MD REASON: shortness of breath PROCEDURE: PORTABLE CHEST 1V Portable chest, 06/02/2018: HISTORY: Shortness of breath, COPD Comparison is made to a study from 05/19/2018. The heart appears to be within normal limits in size for the AP technique. There is calcific plaquing and tortuosity of the thoracic aorta. There are scattered parenchymal scars in the lungs. Calcific pleural plaquing is present in the lower chest. Right-sided pleural fluid has diminished since 05/19/2018. There are unchanged streaky left basilar opacities compatible with atelectasis and/or scarring. There is more dense ongoing infiltrate in the right base. IMPRESSION: 1. Chronic parenchymal scarring and calcific pleural plaquing. 2. Ongoing right basilar infiltrate with decreasing right pleural effusion. 3. No new abnormality is detected. Electronically signed by: Navarro Liu MD (06/02/2018 4:31 PM) [facility] DICTATED and SIGNED BY: NAVARRO LIU MD DATE: 06/02/18 5236 Course & Med Decision Making Course & Med Decision Making Pertinent Labs and Imaging studies reviewed. (See chart for details) Evaluation of patient in ER showed 78-year-old male patient with history of COPD on 4 L of home oxygen brought in by EMS because of shortness of breath that started today. Patient had mild respiratory distress. Patient had O2 sat of 89% at room air with Po2 of 44% ABG and was started on 4 L of oxygen and plan to repeat ABG after 60 minutes. Chest x-ray showed no pneumonia without acute changes. Patient had a white count of 14,000 and treated with antibiotic and Solu-Medrol and DuoNeb. IV fluid was not given because of history of CHF and elevation of BNP and lack of lactic acidemia. Dr. Lei accepted admission at 1630. Dragon Disclaimer Dragon Disclaimer This electronic medical record was generated, in whole or in part, using a voice recognition dictation system. Departure Departure Impression: Primary Impression: COPD exacerbation Additional Impressions: Pneumonia Anemia Hypoxia Disposition: 09 ADMITTED INPATIENT (at 1631) Admitting Physician: Jigar Lei (Accepted admission at 1630) Condition: GUARDED Referrals: AMISHA HARDY MD (PCP) Problem Qualifiers AMRIT ANNE MD Jun 02, 2018 16:08
--- NOTE | 2018-06-02 16:16 | EKG ---
[facility] [address] [place] [address] Test Date: 2018-06-02 Test Time: 15:44:35 Pat Name: ALKA CASTILLO Department: Room: Gender: F [employer]: : 1940 Requested By: AMRIT ANNE Order Number: [id number] Reading MD: Todd Hammond Measurements Intervals [place] Rate: 79 P: 9 AK: 136 QRS: 31 QRSD: 76 T: 59 QT: 384 QTc: 441 Interpretive Statements SINUS RHYTHM VENTRICULAR PREMATURE COMPLEX(ES), BIGEMINY T ABNORMALITY IN HIGH LATERAL LEADS ABNORMAL ECG Electronically Signed On 06-04-2018 11:16:55 CDT by Todd Hammond
[2018-06-02 16:26] LABS: BASO # 0.1 x10^3/uL (0.0-0.2); BASO % 1 % (0-3); EOS # 0.4 x10^3/uL (0.0-0.7); EOS % 3 % (0-3); HEMATOCRIT 33.5 % (36.0-47.0); HEMOGLOBIN 10.9 g/dL (12.0-15.5); LYMPH # 2.1 x10^3/uL (1.0-4.8); LYMPH % 15 % (24-48); MEAN CORPUSCULAR HEMOGLOBIN 27 pg (25-35); MEAN CORPUSCULAR HGB CONC 33 g/dL (31-37); MEAN CORPUSCULAR VOLUME 84 fL (79-100); MONO % 7 % (0-9); NEUT # 10.6 x10^3uL (1.8-7.7); NEUT % 75 % (31-73); PLATELET COUNT 226 x10^3/uL (140-400); RED BLOOD COUNT 4.01 x10^6/uL (3.50-5.40); RED CELL DISTRIBUTION WIDTH 16.6 % (11.5-14.5); WHITE BLOOD COUNT 14.2 x10^3/uL (4.0-11.0)
[2018-06-02 16:29] LABS: BASE EXCESS ABG 5 mmol/L (-3-3); CORRECTED PCO2 ABG 40 mmHg; CORRECTED PH ABG 7.48; CORRECTED PO2 ABG 44 mmHg; HCO3 ABG 29 mmol/L (21-28); PCO2 ABG 40 mmHg (35-46); SAT O2 ABG 80 % (92-99)
[2018-06-02 16:30] LABS: PO2 ABG 44 mmHg (65-108)
[2018-06-02 16:30] LABS: CALCIUM 8.5 mg/dL (8.5-10.1); CREATININE 1.1 mg/dL (0.6-1.0); GFR 47.8; POTASSIUM 4.2 mmol/L (3.5-5.1)
--- NOTE | 2018-06-02 16:34 | RAD ---
Portable chest, 06/02/2018: HISTORY: Shortness of breath, COPD Comparison is made to a study from 05/19/2018. The heart appears to be within normal limits in size for the AP technique. There is calcific plaquing and tortuosity of the thoracic aorta. There are scattered parenchymal scars in the lungs. Calcific pleural plaquing is present in the lower chest. Right-sided pleural fluid has diminished since 05/19/2018. There are unchanged streaky left basilar opacities compatible with atelectasis and/or scarring. There is more dense ongoing infiltrate in the right base. IMPRESSION: 1. Chronic parenchymal scarring and calcific pleural plaquing. 2. Ongoing right basilar infiltrate with decreasing right pleural effusion. 3. No new abnormality is detected. Electronically signed by: Navarro Liu MD (06/02/2018 4:31 PM) [facility]
[2018-06-02 16:35] LABS: PROTHROMBIN TIME PATIENT 13.5 SEC (11.7-14.0)
[2018-06-02 16:36] LABS: ALBUMIN 2.4 g/dL (3.4-5.0); ALBUMIN/GLOBULIN RATIO 0.6 (1.0-1.7); MAGNESIUM 1.8 mg/dL (1.8-2.4); TOTAL BILIRUBIN 0.7 mg/dL (0.2-1.0); TOTAL PROTEIN 6.7 g/dL (6.4-8.2)
[2018-06-02 16:39] LABS: D-DIMER 1.67 ug/mlFEU (0.00-0.50)
[2018-06-02 18:08] LABS: BASE EXCESS ABG 6 mmol/L (-3-3); CORRECTED PCO2 ABG 44 mmHg; CORRECTED PH ABG 7.46; CORRECTED PO2 ABG 83 mmHg; HCO3 ABG 31 mmol/L (21-28); PCO2 ABG 44 mmHg (35-46); PO2 ABG 83 mmHg (65-108); SAT O2 ABG 96 % (92-99)
--- NOTE | 2018-06-02 19:24 | HP ---
ADMIT DATE: 06/02/2018 CHIEF COMPLAINT: Shortness of breath. HISTORY OF PRESENT ILLNESS: The patient is a pleasant 78-year-old female, well known to our service. She has multiple comorbidities including COPD and CHF. She presents with shortness of breath, states it got worse over the past day, rated at 7/10. She normally is on 4 liters of oxygen at home. I discussed the case with ER physician. We suspect she has a COPD exacerbation and/or acute on chronic systolic and diastolic heart failure, but we are also going to rule out PE. We are going to admit the patient and consult Pulmonary. PAST MEDICAL HISTORY: CHF, COPD, diabetes, hypertension, hyperlipidemia, MRSA, cholecystectomy. ALLERGIES: DOXYCYCLINE. FAMILY HISTORY: Diabetes. SOCIAL HISTORY: She used to smoke, she quit. No drinking or drugs. She lives alone. MEDICATIONS: Reviewed, please refer to the MRAD. REVIEW OF SYSTEMS: GENERAL: No history of weight change, weakness or fevers. SKIN: No bruising, hair changes or rashes. EYES: No blurred, double or loss of vision. NOSE AND THROAT: No history of nosebleeds, hoarseness or sore throat. HEART: No history of palpitations, chest pain or shortness of breath on exertion. LUNGS: She complains of shortness of breath. GASTROINTESTINAL: Denies changes in appetite, nausea, vomiting, diarrhea or constipation. GENITOURINARY: No history of frequency, urgency, hesitancy or nocturia. NEUROLOGIC: Denies history of numbness, tingling, tremor or weakness. PSYCHIATRIC: No history of panic, anxiety or depression. ENDOCRINE: No history of heat or cold intolerance, polyuria or polydipsia. EXTREMITIES: Denies muscle weakness, joint pain, pain on walking or stiffness. PHYSICAL EXAMINATION: VITAL SIGNS: Stable. GENERAL: She is alert, cooperative. HEART: Normal S1, S2. LUNGS: Coarse. ABDOMEN: Soft. EXTREMITIES: No edema. SKIN: No rashes. ENDOCRINE: No thyromegaly. LYMPHATICS: No cervical nodes. HEMATOPOIETIC: No bruising. LABORATORY DATA: White count is 14, hemoglobin 11. Electrolytes are normal other than an anion gap of 5, creatinine of 1.1, and carbon dioxide of 35. Her glucose is 122. BNP 980. Chest x-ray shows some vascular congestion and a right basilar infiltrate and some scarring. ASSESSMENT AND PLAN: Respiratory failure, probably multifactorial including chronic obstructive pulmonary disease, pneumonia and/or heart failure and possibly a pulmonary embolism, although this is low on our differential. We are going to check a V/Q scan to be safe. IV antibiotics, DuoNebs, steroids, breathing treatments, consult Pulmonary. Continue home medicines. PT, OT, frequent labs. ANN MARIE TREVINO DO DR: SOMMER/rito JOB#: [id number] / [id number]
--- NOTE | 2018-06-02 19:33 | RAD ---
Indication: Dyspnea. Elevated d-dimer. TECHNIQUE: VQ scan with 12.0 mCi of xenon-133 for ventilation scan and 5.50 mCi of technetium 99m MAA for perfusion scan COMPARISON: Chest x-ray from the same day FINDINGS: The ventilation scan demonstrates homogeneous distribution of xenon-133 with appropriate washout in and delayed washout suggesting COPD changes. Ventilation/perfusion mismatch seen in multiple segments with patchy areas of photopenia. Impression: High probability VQ scan. Further evaluation with CT angiogram chest or DVT studies may be of additional benefit. Electronically signed by: Chandler Murdock DO (06/02/2018 7:29 PM) [facility]
[2018-06-02] MEDS: IPRATRPIUM/ALBUTEROL 0.5/2.5MG 3 ML NEBU. NEB SCH (20:23)
[2018-06-02 21:50] VITALS: BP 160/75
[2018-06-02 23:00] VITALS: BP 115/52
[2018-06-03 02:45] VITALS: BP 119/59
[2018-06-03 07:00] VITALS: BP 118/44
--- NOTE | 2018-06-03 07:52 | PDOC ---
Provider Note Provider Note [id number] acute chronic resp fail ae of copd acute bronchitis high prob v/q le venous doppler bmp if cr ok cta of chest see orders ALAN IYER MD Jun 03, 2018 07:52
--- NOTE | 2018-06-03 08:18 | CONS ---
DATE OF CONSULTATION: 06/03/2018 I was asked to see this 78-year-old lady for [id number] respiratory failure. HISTORY OF PRESENT ILLNESS: The patient has history of [id number] smoking, quit smoking 20 years ago. She has chronic respiratory failure and is on oxygen 4 liters per minute via nasal cannula. She was discharged from hospital on 05/21/2018, she was admitted for acute CHF, acute exacerbation of COPD. She has not been active. She has had increased shortness of breath for the past 2 days. She has had wheezing. She does have cough, not much sputum production. She denies chest pain. PAST MEDICAL HISTORY: Chronic respiratory failure, COPD, CHF, diabetes mellitus and hypertension. ALLERGIES: DOXYCYCLINE. MEDICATIONS: Currently she is on Rocephin, Solu-Medrol 30 mg daily, DuoNeb. SOCIAL HISTORY: History of [id number] smoking, stopped smoking 20 years ago. FAMILY HISTORY: Hypertension. REVIEW OF SYSTEMS: As mentioned as above, other systems otherwise negative. PHYSICAL EXAMINATION: GENERAL: This is a well-developed lady. VITAL SIGNS: Her O2 saturation is 96%, respiratory rate 18, heart rate 79, blood pressure 119/59, temperature 99.3. HEENT: Normocephalic, atraumatic. Pupils equal, round, reactive to light. Throat is clear. Nose is clear. NECK: There is no JVD, lymphadenopathy or thyromegaly. CARDIOVASCULAR: Regular rate and rhythm. PMI is nondisplaced. CHEST: Inspection is normal. LUNGS: There are a few bibasilar crackles, a few end-expiratory wheezing, dullness at the right base. ABDOMEN: Soft and obese. Bowel sounds are good. There is no mass. EXTREMITIES: There is no edema. NEUROLOGIC: Alert and oriented. SKIN: Chronic changes. LYMPHATICS: There is no lymphadenopathy. LABORATORY DATA: I reviewed the following lab data: Chest x-ray shows increased interstitial marking, right effusion which is improved from previous chest x-ray, may be there is some right basilar infiltrate. V/Q scan is high probability. Sodium 140, potassium 4.2, chloride 100, CO2 35, BUN 19, creatinine 1.1, glucose 122. BNP 980. Troponin less than 0.01. WBC 14.2, hemoglobin 10.9, platelet 226. ABG on admission, pH 7.48, pCO2 40, pO2 44. Repeat ABG on 40% of FIO2, pH 7.46, pCO2 of 44, pO2 83. IMPRESSION: 1. Kugpx-tu-lrmdekf respiratory failure secondary to acute exacerbation of chronic obstructive pulmonary disease, acute bronchitis versus others. 2. Abnormal chest x-ray. 3. Acute exacerbation of chronic obstructive pulmonary disease. 4. Acute bronchitis. 5. High probability V/Q scan. Need to rule out pulmonary embolism. 6. Ex-smoker. 7. Hypertension. 8. Diabetes mellitus. PLAN AND RECOMMENDATIONS: 1. Titrate FiO2 to keep O2 saturation 92%. 2. I will do a lower extremity venous Doppler. 3. I will check her BMP stat. If her BUN and creatinine is normal, I will do a CT angiogram of the chest. 4. Start Lovenox for DVT prophylaxis. 5. Start Protonix for stress ulcer prophylaxis. 6. Change Solu-Medrol to 40 mg daily. 7. I agree with Rocephin. 8. The findings and recommendations were discussed with the patient. She understood and agreed to proceed with the plan. I have answered all of her questions. Thank you very much for allowing me to participate in care of this very nice lady. ALAN IYER M.D. : MARGAUX/rito JOB#: [id number] / [id number]
[2018-06-03] MEDS: IPRATRPIUM/ALBUTEROL 0.5/2.5MG 3 ML NEBU. NEB SCH ×4 (08:32→19:53)
[2018-06-03] MEDS: BUDESONIDE 0.5 MG/2 ML NEBU. NEB SCH ×2 (08:32→19:53)
--- NOTE | 2018-06-03 08:41 | RAD ---
EXAM: Bilateral lower extremity venous Doppler sonogram. HISTORY: Shortness of breath. Edema. TECHNIQUE: Grimes scale and color Doppler sonographic evaluation of the bilateral lower extremity veins with spectral waveform analysis was performed. FINDINGS: There is normal color flow, normal compressibility and there are normal spectral waveforms in the common femoral, superficial femoral, popliteal, posterior tibial and greater saphenous veins. IMPRESSION: No Doppler evidence of lower extremity deep venous thrombosis. Electronically signed by: Maribel Lora MD (06/03/2018 8:37 AM) [id number]
[2018-06-03] MEDS ORDERED: cefTRIAXone IV Push 1 GM VIAL. IVP SCH ×2 (09:00→17:00)
[2018-06-03] MEDS ORDERED: methylPREDNISolone SOD SUCC PF 40 MG/ML VIAL. IV SCH (09:00)
[2018-06-03] MEDS ORDERED: ALBUTEROL SULFATE 2.5 MG/3 ML NEBU. NEB PRN (09:15)
[2018-06-03] MEDS ORDERED: guaiFENesin DM 200MG/20MG 10 ML SYRUP PO PRN (09:15)
[2018-06-03] MEDS ORDERED: IPRATRPIUM/ALBUTEROL 0.5/2.5MG 3 ML NEBU. IH PRN (09:15)
[2018-06-03] MEDS ORDERED: ACETAMINOPHEN 325 MG TABLET. PO PRN (09:15)
[2018-06-03 10:25] LABS: CALCIUM 8.4 mg/dL (8.5-10.1); CREATININE 1.1 mg/dL (0.6-1.0); GFR 47.8
[2018-06-03] MEDS: methylPREDNISolone SOD SUCC PF 40 MG/ML VIAL. IV SCH (10:39)
[2018-06-03] MEDS: PANTOPRAZOLE 40 MG TABLET.DR. PO SCH (10:40)
[2018-06-03] MEDS: ENOXAPARIN 40 MG/0.4 ML SYRINGE. SQ SCH (10:40)
[2018-06-03] MEDS: BENZONATATE 100 MG CAPSULE. PO SCH ×3 (10:40→20:56)
[2018-06-03] MEDS: CARVEDILOL 6.25 MG TABLET. PO SCH ×2 (10:40→17:39)
[2018-06-03] MEDS: LACTOBACILLUS RHAMNOSUS GG 1 CAPSULE. PO SCH ×2 (10:40→20:57)
[2018-06-03] MEDS: CETIRIZINE HCL 10 MG TABLET. PO SCH (10:41)
[2018-06-03] MEDS: FUROSEMIDE 20 MG TABLET PO SCH (10:41)
[2018-06-03] MEDS: FERROUS SULFATE 325 MG TABLET. PO SCH (10:41)
[2018-06-03] MEDS: ASPIRIN ENTERIC COATED 81 MG TABLET.DR. PO SCH (10:41)
[2018-06-03 11:00] VITALS: BP 156/75
[2018-06-03] MEDS ORDERED: IOHEXOL 300 MG/ML 100ML VIAL. IV ONE (11:00)
[2018-06-03] MEDS ORDERED: CONTRAST GIVEN. MC PRN (11:00)
--- NOTE | 2018-06-03 12:15 | PDOC ---
PROGRESS NOTES Chief Complaint Chief Complaint COPD exacerbation CHF mild to moderate exacerbation-possibly acute on chronic combined No pneumonia Feels to thrive in an elderly Generalized weakness Cachexia with severe PCM - alb 1.8 NEver smoker Acute on chronic hypoxic respiratory failure-home O2 dependent FUll Code History of Present Illness History of Present Illness She is back again Last admitted here 05/21/18 which was only 13 days ago Adamantly refuses SNU again, has been to [facility] and does not want to go back there VQ scan is high prob VQ hence pulmo now has ordered CTA. Venous Dopplers are negative. She came in with low sats. Her white count is 14,000, hemoglobin 10, creatinine 1.1 Plan: Follow-up CTA DVT prophylaxis PT OT, refuses SNU, I do believe she actually refused home health too Full code, she is not ready to be in hospice Supportive care Overall prognosis poor, frequency of admissions Vitals Vitals Vital Signs Date Time Temp Pulse Resp B/P (MAP) Pulse Ox O2 Delivery O2 Flow Rate FiO2 06/03/18 10:40 75 118/44 06/03/18 08:35 94 Nasal Cannula 4.0 06/03/18 07:00 98.8 18 98.8 Physical Exam General: Alert, No acute distress Heart: Regular rate, Normal S1, Normal S2 Lungs: Crackles, Other (no increase in SOA, symmetric chest expansion, normal air entry) Abdomen: Normal bowel sounds, Soft, No tenderness, No hepatosplenomegaly Extremities: No clubbing, No cyanosis, No edema, Normal pulses Skin: No rashes, No breakdown, No significant lesion, Other (senile skin turgor , minimal subcutaneous tissues tissue) Labs LABS Laboratory Tests Test 06/02/18 15:38 06/02/18 16:05 06/02/18 18:00 06/03/18 10:07 O2 Saturation 80 % (92-99) 96 % (92-99) Arterial Blood pH 7.48 (7.35-7.45) 7.46 (7.35-7.45) Arterial Blood pH (Temp corrected) 7.48 7.46 Arterial Blood pCO2 at Patient Temp 40 mmHg (35-46) 44 mmHg (35-46) Arterial Blood pCO2 (Temp correct) 40 mmHg 44 mmHg Arterial Blood pO2 at Patient Temp 44 mmHg (65-108) 83 mmHg (65-108) Arterial Blood pO2 (Temp corrected) 44 mmHg 83 mmHg Arterial Blood HCO3 29 mmol/L (21-28) 31 mmol/L (21-28) Arterial Blood Base Excess 5 mmol/L (-3-3) 6 mmol/L (-3-3) FiO2 21.0 40.0 White Blood Count 14.2 x10^3/uL (4.0-11.0) Red Blood Count 4.01 x10^6/uL (3.50-5.40) Hemoglobin 10.9 g/dL (12.0-15.5) Hematocrit 33.5 % (36.0-47.0) Mean Corpuscular Volume 84 fL (79-100) Mean Corpuscular Hemoglobin 27 pg (25-35) Mean Corpuscular Hemoglobin Concent 33 g/dL (31-37) Red Cell Distribution Width 16.6 % (11.5-14.5) Platelet Count 226 x10^3/uL (140-400) Neutrophils (%) (Auto) 75 % (31-73) Lymphocytes (%) (Auto) 15 % (24-48) Monocytes (%) (Auto) 7 % (0-9) Eosinophils (%) (Auto) 3 % (0-3) Basophils (%) (Auto) 1 % (0-3) Neutrophils # (Auto) 10.6 x10^3uL (1.8-7.7) Lymphocytes # (Auto) 2.1 x10^3/uL (1.0-4.8) Monocytes # (Auto) 1.0 x10^3/uL (0.0-1.1) Eosinophils # (Auto) 0.4 x10^3/uL (0.0-0.7) Basophils # (Auto) 0.1 x10^3/uL (0.0-0.2) Prothrombin Time 13.5 SEC (11.7-14.0) Prothromb Time International Ratio 1.1 (0.8-1.1) D-Dimer (Sangeetha) 1.67 ug/mlFEU (0.00-0.50) Sodium Level 140 mmol/L (136-145) 137 mmol/L (136-145) Potassium Level 4.2 mmol/L (3.5-5.1) 4.0 mmol/L (3.5-5.1) Chloride Level 100 mmol/L (98-107) 98 mmol/L (98-107) Carbon Dioxide Level 35 mmol/L (21-32) 35 mmol/L (21-32) Anion Gap 5 (6-14) 4 (6-14) Blood Urea Nitrogen 19 mg/dL (7-20) 18 mg/dL (7-20) Creatinine 1.1 mg/dL (0.6-1.0) 1.1 mg/dL (0.6-1.0) Estimated GFR (Cockcroft-Gault) 47.8 47.8 BUN/Creatinine Ratio 17 (6-20) Glucose Level 122 mg/dL (70-99) 118 mg/dL (70-99) Lactic Acid Level 1.0 mmol/L (0.4-2.0) Calcium Level 8.5 mg/dL (8.5-10.1) 8.4 mg/dL (8.5-10.1) Magnesium Level 1.8 mg/dL (1.8-2.4) Total Bilirubin 0.7 mg/dL (0.2-1.0) Aspartate Amino Transf (AST/SGOT) 14 U/L (15-37) Alanine Aminotransferase (ALT/SGPT) 17 U/L (14-59) Alkaline Phosphatase 84 U/L (46-116) Creatine Kinase 12 U/L (26-192) Troponin I Quantitative < 0.017 ng/mL (0.000-0.055) YY-Ssh-T-Type Natriuretic Peptide 980 pg/mL (0-449) Total Protein 6.7 g/dL (6.4-8.2) Albumin 2.4 g/dL (3.4-5.0) Albumin/Globulin Ratio 0.6 (1.0-1.7) Review of Systems Review of Systems SOB, weak, the rest of ROS 14 point negative Assessment and Plan Assessmemt and Plan Problems Medical Problems: (1) Anemia Status: Acute (2) COPD exacerbation Status: Acute (3) Hypoxia Status: Acute (4) Pneumonia Status: Acute Comment Review of Relevant I have reviewed the following items j[place] (where applicable) has been applied. Labs Laboratory Tests Test 06/02/18 15:38 06/02/18 16:05 06/02/18 18:00 9/16/18 10:07 O2 Saturation 80 % (92-99) 96 % (92-99) Arterial Blood pH 7.48 (7.35-7.45) 7.46 (7.35-7.45) Arterial Blood pH (Temp corrected) 7.48 7.46 Arterial Blood pCO2 at Patient Temp 40 mmHg (35-46) 44 mmHg (35-46) Arterial Blood pCO2 (Temp correct) 40 mmHg 44 mmHg Arterial Blood pO2 at Patient Temp 44 mmHg (65-108) 83 mmHg (65-108) Arterial Blood pO2 (Temp corrected) 44 mmHg 83 mmHg Arterial Blood HCO3 29 mmol/L (21-28) 31 mmol/L (21-28) Arterial Blood Base Excess 5 mmol/L (-3-3) 6 mmol/L (-3-3) FiO2 21.0 40.0 White Blood Count 14.2 x10^3/uL (4.0-11.0) Red Blood Count 4.01 x10^6/uL (3.50-5.40) Hemoglobin 10.9 g/dL (12.0-15.5) Hematocrit 33.5 % (36.0-47.0) Mean Corpuscular Volume 84 fL (79-100) Mean Corpuscular Hemoglobin 27 pg (25-35) Mean Corpuscular Hemoglobin Concent 33 g/dL (31-37) Red Cell Distribution Width 16.6 % (11.5-14.5) Platelet Count 226 x10^3/uL (140-400) Neutrophils (%) (Auto) 75 % (31-73) Lymphocytes (%) (Auto) 15 % (24-48) Monocytes (%) (Auto) 7 % (0-9) Eosinophils (%) (Auto) 3 % (0-3) Basophils (%) (Auto) 1 % (0-3) Neutrophils # (Auto) 10.6 x10^3uL (1.8-7.7) Lymphocytes # (Auto) 2.1 x10^3/uL (1.0-4.8) Monocytes # (Auto) 1.0 x10^3/uL (0.0-1.1) Eosinophils # (Auto) 0.4 x10^3/uL (0.0-0.7) Basophils # (Auto) 0.1 x10^3/uL (0.0-0.2) Prothrombin Time 13.5 SEC (11.7-14.0) Prothromb Time International Ratio 1.1 (0.8-1.1) D-Dimer (Sangeetha) 1.67 ug/mlFEU (0.00-0.50) Sodium Level 140 mmol/L (136-145) 137 mmol/L (136-145) Potassium Level 4.2 mmol/L (3.5-5.1) 4.0 mmol/L (3.5-5.1) Chloride Level 100 mmol/L (98-107) 98 mmol/L (98-107) Carbon Dioxide Level 35 mmol/L (21-32) 35 mmol/L (21-32) Anion Gap 5 (6-14) 4 (6-14) Blood Urea Nitrogen 19 mg/dL (7-20) 18 mg/dL (7-20) Creatinine 1.1 mg/dL (0.6-1.0) 1.1 mg/dL (0.6-1.0) Estimated GFR (Cockcroft-Gault) 47.8 47.8 BUN/Creatinine Ratio 17 (6-20) Glucose Level 122 mg/dL (70-99) 118 mg/dL (70-99) Lactic Acid Level 1.0 mmol/L (0.4-2.0) Calcium Level 8.5 mg/dL (8.5-10.1) 8.4 mg/dL (8.5-10.1) Magnesium Level 1.8 mg/dL (1.8-2.4) Total Bilirubin 0.7 mg/dL (0.2-1.0) Aspartate Amino Transf (AST/SGOT) 14 U/L (15-37) Alanine Aminotransferase (ALT/SGPT) 17 U/L (14-59) Alkaline Phosphatase 84 U/L (46-116) Creatine Kinase 12 U/L (26-192) Troponin I Quantitative < 0.017 ng/mL (0.000-0.055) QN-Qox-I-Type Natriuretic Peptide 980 pg/mL (0-449) Total Protein 6.7 g/dL (6.4-8.2) Albumin 2.4 g/dL (3.4-5.0) Albumin/Globulin Ratio 0.6 (1.0-1.7) Laboratory Tests Test 06/02/18 15:38 06/02/18 16:05 06/02/18 18:00 06/03/18 10:07 O2 Saturation 80 % (92-99) 96 % (92-99) Arterial Blood pH 7.48 (7.35-7.45) 7.46 (7.35-7.45) Arterial Blood pH (Temp corrected) 7.48 7.46 Arterial Blood pCO2 at Patient Temp 40 mmHg (35-46) 44 mmHg (35-46) Arterial Blood pCO2 (Temp correct) 40 mmHg 44 mmHg Arterial Blood pO2 at Patient Temp 44 mmHg (65-108) 83 mmHg (65-108) Arterial Blood pO2 (Temp corrected) 44 mmHg 83 mmHg Arterial Blood HCO3 29 mmol/L (21-28) 31 mmol/L (21-28) Arterial Blood Base Excess 5 mmol/L (-3-3) 6 mmol/L (-3-3) FiO2 21.0 40.0 White Blood Count 14.2 x10^3/uL (4.0-11.0) Red Blood Count 4.01 x10^6/uL (3.50-5.40) Hemoglobin 10.9 g/dL (12.0-15.5) Hematocrit 33.5 % (36.0-47.0) Mean Corpuscular Volume 84 fL (79-100) Mean Corpuscular Hemoglobin 27 pg (25-35) Mean Corpuscular Hemoglobin Concent 33 g/dL (31-37) Red Cell Distribution Width 16.6 % (11.5-14.5) Platelet Count 226 x10^3/uL (140-400) Neutrophils (%) (Auto) 75 % (31-73) Lymphocytes (%) (Auto) 15 % (24-48) Monocytes (%) (Auto) 7 % (0-9) Eosinophils (%) (Auto) 3 % (0-3) Basophils (%) (Auto) 1 % (0-3) Neutrophils # (Auto) 10.6 x10^3uL (1.8-7.7) Lymphocytes # (Auto) 2.1 x10^3/uL (1.0-4.8) Monocytes # (Auto) 1.0 x10^3/uL (0.0-1.1) Eosinophils # (Auto) 0.4 x10^3/uL (0.0-0.7) Basophils # (Auto) 0.1 x10^3/uL (0.0-0.2) Prothrombin Time 13.5 SEC (11.7-14.0) Prothromb Time International Ratio 1.1 (0.8-1.1) D-Dimer (Sangeetha) 1.67 ug/mlFEU (0.00-0.50) Sodium Level 140 mmol/L (136-145) 137 mmol/L (136-145) Potassium Level 4.2 mmol/L (3.5-5.1) 4.0 mmol/L (3.5-5.1) Chloride Level 100 mmol/L (98-107) 98 mmol/L (98-107) Carbon Dioxide Level 35 mmol/L (21-32) 35 mmol/L (21-32) Anion Gap 5 (6-14) 4 (6-14) Blood Urea Nitrogen 19 mg/dL (7-20) 18 mg/dL (7-20) Creatinine 1.1 mg/dL (0.6-1.0) 1.1 mg/dL (0.6-1.0) Estimated GFR (Cockcroft-Gault) 47.8 47.8 BUN/Creatinine Ratio 17 (6-20) Glucose Level 122 mg/dL (70-99) 118 mg/dL (70-99) Lactic Acid Level 1.0 mmol/L (0.4-2.0) Calcium Level 8.5 mg/dL (8.5-10.1) 8.4 mg/dL (8.5-10.1) Magnesium Level 1.8 mg/dL (1.8-2.4) Total Bilirubin 0.7 mg/dL (0.2-1.0) Aspartate Amino Transf (AST/SGOT) 14 U/L (15-37) Alanine Aminotransferase (ALT/SGPT) 17 U/L (14-59) Alkaline Phosphatase 84 U/L (46-116) Creatine Kinase 12 U/L (26-192) Troponin I Quantitative < 0.017 ng/mL (0.000-0.055) AM-Omw-H-Type Natriuretic Peptide 980 pg/mL (0-449) Total Protein 6.7 g/dL (6.4-8.2) Albumin 2.4 g/dL (3.4-5.0) Albumin/Globulin Ratio 0.6 (1.0-1.7) Medications Current Medications Methylprednisolone Sodium Succinate (SOLU-Medrol 125MG VIAL) 125 mg 1X ONCE IV Last administered on 06/02/18at 18:20; Start 06/02/18 at 15:45; Stop 06/02/18 at 15:46; Status DC Ceftriaxone Sodium 1 gm/ Dextrose 50 ml @ 100 mls/hr Q24H IV ; Start 06/02/18 at 16:45; Status UNV Ceftriaxone Sodium 50 ml @ 100 mls/hr 1X ONCE IV Last administered on at 18:21; Start 06/02/18 at 17:00; Stop 06/02/18 at 17:29; Status DC Ceftriaxone Sodium (Rocephin) 1 gm Q24H IVP ; Start 06/03/18 at 17:00; Stop at 17:00; Status DC Albuterol/ Ipratropium (Duoneb) 3 ml RTQID NEB Last administered on 06/03/18at 08:32; Start 06/02/18 at 20:00 Methylprednisolone Sodium Succinate (SOLU-Medrol 40MG VIAL) 30 mg DAILY IV ; Start 06/03/18 at 09:00; Stop 06/03/18 at 09:00; Status DC Info (Do NOT chart on this placeholder) 0.5 each 1X ONCE MC ; Start 06/03/18 at 21:00; Stop 06/03/18 at 21:01; Status UNV Influenza Virus Vaccine (Afluria Trivalent [id number] Syringe) 0.5 ml ONCE ONCE VAX IM ; Start 06/03/18 at 09:00; Stop 06/03/18 at 09:01; Status DC Lactobacillus Rhamnosus (Culturelle) 1 cap BID PO Last administered on at 10:40; Start 06/03/18 at 09:00 Methylprednisolone Sodium Succinate (SOLU-Medrol 40MG VIAL) 40 mg DAILY IV Last administered on 06/03/18at 10:39; Start 06/03/18 at 09:00 Enoxaparin Sodium (Lovenox 40mg Syringe) 40 mg Q24H SQ Last administered on at 10:40; Start 06/03/18 at 08:00 Pantoprazole Sodium (Protonix) 40 mg DAILYAC PO Last administered on 06/03/18at 10:40; Start 06/03/18 at 08:00 Budesonide (Pulmicort) 0.5 mg RTBID NEB Last administered on 06/03/18at 08:32; Start 06/03/18 at 08:00 Ceftriaxone Sodium (Rocephin) 1 gm Q24H IVP ; Start 06/03/18 at 09:00 Guaifenesin (Robitussin Dm) 10 ml PRN Q6HRS PRN PO COUGH Last administered on at 10:39; Start 06/03/18 at 09:15 Benzonatate (Tessalon Perle) 100 mg [id number] PO Last administered on 06/03/18 10 :40; Start 06/03/18 at 09:30 Acetaminophen (Tylenol) 650 mg TID PRN PRN PO PAIN Last administered on at 10:41; Start 06/03/18 at 09:15 Aspirin (Ecotrin) 81 mg DAILY PO Last administered on 06/03/18at 10:41; Start at 10:00 Carvedilol (Coreg) 6.25 mg BIDWMEALS PO Last administered on 06/03/18 10:40; Start 06/03/18 at 09:30 Cetirizine HCl (ZyrTEC) 10 mg DAILY PO Last administered on 06/03/18at 10:41; Start 06/03/18 at 10:00 Ferrous Sulfate (Feosol) 325 mg DAILY PO Last administered on 06/03/18at 10:41; Start 06/03/18 at 10:00 Furosemide (Lasix) 20 mg DAILY PO Last administered on 06/03/18at 10:41; Start 06/03/18 at 10:00 Guaifenesin (Mucinex) 600 mg BID PO ; Start 06/03/18 at 21:00 Albuterol/ Ipratropium (Duoneb) 3 ml Q4HRS PRN IH CONGESTION; Start 06/03/18 at 09:15; Stop 06/03/18 at 09:15; Status DC Nystatin (Nystop) 1 rea QID TP ; Start 06/03/18 at 13:00 Montelukast Sodium (Singulair) 10 mg QHS PO ; Start 06/03/18 at 21:00 Atorvastatin Calcium (Lipitor) 5 mg QHS PO ; Start 06/03/18 at 21:00 Albuterol Sulfate (Ventolin Neb Soln) 2.5 mg PRN Q4HRS PRN NEB SHORTNESS OF BREATH; Start 06/03/18 at 09:15 Iohexol (Omnipaque 300 Mg/ml) 60 ml 1X ONCE IV Last administered on 06/03/18at 11:27; Start 06/03/18 at 11:00; Stop 06/03/18 at 11:01; Status DC Info (CONTRAST GIVEN -- Rx MONITORING) 1 each PRN DAILY PRN MC SEE COMMENTS; Start 06/03/18 at 11:00; Stop 06/05/18 at 10:59 Active Scripts Active Prednisone 20 Mg Tablet 40 Mg PO DAILY Levaquin (Levofloxacin) 250 Mg Tablet 250 Mg PO DAILY06 2 Days Furosemide 20 Mg Tablet 20 Mg PO DAILY Mucinex (Guaifenesin) 600 Mg Tablet.er 600 Mg PO BID 14 Days Nystop (Nystatin) 60 Gm Powder 1 Rea TP QID 30 Days Cetirizine Hcl 10 Mg Tablet 10 Mg PO DAILY Montelukast Sodium Tablet (Montelukast Sodium) 10 Mg Tablet 10 Mg PO QHS Reported Tylenol (Acetaminophen) 325 Mg Tablet 650 Mg PO TID PRN PRN Aspir 81 (Aspirin) 81 Mg Tablet.dr 1 Tab PO DAILY Iron Supplement (Ferrous Sulfate) 325 Mg Tablet 1 Tab PO DAILY Advair 250-50 Diskus (Fluticasone/Salmeterol) 1 Each Disk.w.dev 1 Puff IH BID Duoneb 0.5-3(2.5) Mg/3 Ml (Albuterol/Ipratropium) 3 Ml Ampul.neb 3 Ml IH Q4HRS PRN Pravastatin Sodium 10 Mg Tablet 1 Tab PO DAILY Carvedilol 6.25 Mg Tablet 1 Tab PO BID Vitals/I & O Vital Sign - Last 24 Hours 06/02/18 06/02/18 06/02/18 06/02/18 15:30 15:45 16:00 16:30 Temp 98.1 98.1 Pulse 80 78 78 Resp 21 24 25 B/P (MAP) 155/86 (109) 155/86 (109) 161/73 (102) Pulse Ox 96 93 4 4 O2 Delivery Aerosol Mask Nasal Cannula Nasal Cannula Nasal Cannula O2 Flow Rate 4.0 06/02/18 06/02/18 06/02/18 06/02/18 17:00 17:30 18:00 20:30 Pulse 78 82 80 Resp 21 22 21 B/P (MAP) 142/63 (89) 140/68 (92) 156/82 (106) Pulse Ox 4 4 4 O2 Delivery Nasal Cannula Nasal Cannula Nasal Cannula Nasal Cannula O2 Flow Rate 4.0 06/02/18 06/02/18 06/02/18 06/03/18 20:34 21:50 23:00 02:45 Temp 98.7 98.9 99.3 98.7 98.9 99.3 Pulse 86 78 79 Resp 18 18 18 B/P (MAP) 160/75 (103) 115/52 (73) 119/59 (79) Pulse Ox 94 91 96 97 O2 Delivery Nasal Cannula Nasal Cannula Nasal Cannula Room Air O2 Flow Rate 4.0 06/03/18 06/03/18 06/03/18 07:00 08:35 10:40 Temp 98.8 98.8 Pulse 75 75 Resp 18 B/P (MAP) 118/44 (68) 118/44 Pulse Ox 95 94 O2 Delivery Room Air Nasal Cannula O2 Flow Rate 4.0 Intake and Output 06/02/18 06/02/18 06/03/18 15:00 23:00 07:00 Output Total 0 ml Balance 0 ml TESS LOZANO MD Jun 03, 2018 12:15
--- NOTE | 2018-06-03 12:20 | RAD ---
CTA of the chest with contrast, 06/03/2018: HISTORY: Shortness of breath, abnormal VQ scan Multidetector CT imaging was performed following an IV bolus injection of iodinated contrast material. Multiplanar reconstructions were produced including coronal MIP images. Comparison is made to a study from 11/11/2015. The central pulmonary arteries are well opacified. No filling defect is seen in the central pulmonary arteries to suggest pulmonary emboli. There is moderate calcific plaquing of the thoracic aorta and its branches without evidence of aneurysm or dissection. Several coronary artery calcifications are noted. There are prominent calcified mediastinal lymph nodes due to old granulomatous disease. There are several noncalcified mediastinal lymph nodes of borderline size. There are emphysematous changes in the lungs. Calcific pleural plaques are present. There are scattered pleural-parenchymal scars. A small spiculated density in the posterior aspect of the right upper lobe appears unchanged. A small nodule in the lateral aspect of the left lung base is also unchanged. Bronchiectasis is present in both lung bases, worse in the right lower lobe. There is moderate associated patchy pulmonary infiltrate in the right lower lobe suggesting pneumonia. There is a lesser degree of atelectasis/infiltrate posteriorly in the left lung base. There is minimal bronchiectasis in the right middle lobe. No significant pleural fluid is evident. The visualized portion of the liver demonstrates irregular margins with relative prominence of the left lobe suggesting cirrhosis. There are serpiginous structures in the left upper quadrant raising the possibility of enlarged venous collaterals or varices. IMPRESSION: 1. No CT evidence of central pulmonary emboli. 2. Emphysema with pleural-parenchymal scarring 3. 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 4. Bibasilar bronchiectasis, worse on the right, with moderate associated right lower lobe infiltrate suggesting pneumonia. 5. 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 PQRS Compliance Statement: One or more of the following individualized dose reduction techniques were utilized for this examination: 1. Automated exposure control 2. Adjustment of the mA and/or kV according to patient size 3. Use of iterative reconstruction technique Electronically signed by: Navarro Liu MD (06/03/2018 12:17 PM) [facility]
[2018-06-03] MEDS: NYSTATIN TOPICAL POWDER 15GM BOTTLE. TP SCH ×3 (12:39→21:01)
[2018-06-03 15:40] VITALS: BP 122/64
[2018-06-03 19:00] VITALS: BP 137/73
[2018-06-03] MEDS: MONTELUKAST SODIUM 10 MG TABLET. PO SCH (20:57)
[2018-06-03] MEDS: ATORVASTATIN CALCIUM 10 MG TABLET. PO SCH (20:57)
[2018-06-03] MEDS ORDERED: INFLUENZA VAX SCREEN BY RX. MC ONE (21:00)
[2018-06-03 23:00] VITALS: BP 130/58
[2018-06-04 03:00] VITALS: BP 132/66
[2018-06-04 07:00] VITALS: BP 152/83
[2018-06-04] MEDS: BUDESONIDE 0.5 MG/2 ML NEBU. NEB SCH ×2 (07:53→20:28)
[2018-06-04] MEDS: IPRATRPIUM/ALBUTEROL 0.5/2.5MG 3 ML NEBU. NEB SCH ×4 (07:53→20:28)
[2018-06-04] MEDS: NYSTATIN TOPICAL POWDER 15GM BOTTLE. TP SCH ×4 (09:00→20:26)
[2018-06-04 09:19] LABS: BASO % 0 % (0-3); EOS # 0.1 x10^3/uL (0.0-0.7); EOS % 0 % (0-3); HEMATOCRIT 30.6 % (36.0-47.0); HEMOGLOBIN 9.9 g/dL (12.0-15.5); LYMPH # 1.5 x10^3/uL (1.0-4.8); LYMPH % 11 % (24-48); MEAN CORPUSCULAR HEMOGLOBIN 27 pg (25-35); MEAN CORPUSCULAR HGB CONC 32 g/dL (31-37); MEAN CORPUSCULAR VOLUME 83 fL (79-100); MONO # 0.8 x10^3/uL (0.0-1.1); MONO % 6 % (0-9); NEUT # 11.5 x10^3uL (1.8-7.7); NEUT % 83 % (31-73); PLATELET COUNT 226 x10^3/uL (140-400); RED BLOOD COUNT 3.68 x10^6/uL (3.50-5.40); RED CELL DISTRIBUTION WIDTH 16.1 % (11.5-14.5); WHITE BLOOD COUNT 13.9 x10^3/uL (4.0-11.0)
[2018-06-04 09:41] LABS: CALCIUM 8.2 mg/dL (8.5-10.1); GFR 53.3; POTASSIUM 4.3 mmol/L (3.5-5.1)
--- NOTE | 2018-06-04 09:41 | PDOC ---
PROGRESS NOTES Chief Complaint Chief Complaint COPD exacerbation GPC bacteremia 06/04 CHF mild to moderate exacerbation-possibly acute on chronic combined No pneumonia Feels to thrive in an elderly Generalized weakness Cachexia with severe PCM - alb 1.8 NEver smoker Acute on chronic hypoxic respiratory failure-home O2 dependent FUll Code History of Present Illness History of Present Illness no increase in SOA But RN calls me for GPC bacteremia 1 out of 2 bottles today No fever, nontoxic-appearing She usually does not want to go home too soon She adamantly refuses SNU, has [facility] [employer] [facility] and she will NOT go back there Not willing to try other facilities But then she tells me she wants to be discharged possibly Monday because she has an event on Plan: DC Rocephin, upgrade to vancomycin Consult ID Follow cultures Daily PT OT fall risk Vitals Vitals Vital Signs Date Time Temp Pulse Resp B/P (MAP) Pulse Ox O2 Delivery O2 Flow Rate FiO2 06/04/18 07:58 99 Nasal Cannula 4.0 06/04/18 07:00 98.7 69 20 152/83 (106) 98.7 Physical Exam General: Alert, No acute distress Heart: Regular rate, Normal S1, Normal S2 Lungs: Crackles, Other (no increase in SOA, symmetric chest expansion, normal air entry) Abdomen: Normal bowel sounds, Soft, No tenderness, No hepatosplenomegaly Extremities: No clubbing, No cyanosis, No edema, Normal pulses Skin: No rashes, No breakdown, No significant lesion, Other (senile skin turgor , minimal subcutaneous tissues tissue) Labs LABS Laboratory Tests Test 06/03/18 10:07 06/04/18 08:30 Sodium Level 137 mmol/L (136-145) Potassium Level 4.0 mmol/L (3.5-5.1) Chloride Level 98 mmol/L (98-107) Carbon Dioxide Level 35 mmol/L (21-32) Anion Gap 4 (6-14) Blood Urea Nitrogen 18 mg/dL (7-20) Creatinine 1.1 mg/dL (0.6-1.0) Estimated GFR (Cockcroft-Gault) 47.8 Glucose Level 118 mg/dL (70-99) Calcium Level 8.4 mg/dL (8.5-10.1) White Blood Count 13.9 x10^3/uL (4.0-11.0) Red Blood Count 3.68 x10^6/uL (3.50-5.40) Hemoglobin 9.9 g/dL (12.0-15.5) Hematocrit 30.6 % (36.0-47.0) Mean Corpuscular Volume 83 fL (79-100) Mean Corpuscular Hemoglobin 27 pg (25-35) Mean Corpuscular Hemoglobin Concent 32 g/dL (31-37) Red Cell Distribution Width 16.1 % (11.5-14.5) Platelet Count 226 x10^3/uL (140-400) Neutrophils (%) (Auto) 83 % (31-73) Lymphocytes (%) (Auto) 11 % (24-48) Monocytes (%) (Auto) 6 % (0-9) Eosinophils (%) (Auto) 0 % (0-3) Basophils (%) (Auto) 0 % (0-3) Neutrophils # (Auto) 11.5 x10^3uL (1.8-7.7) Lymphocytes # (Auto) 1.5 x10^3/uL (1.0-4.8) Monocytes # (Auto) 0.8 x10^3/uL (0.0-1.1) Eosinophils # (Auto) 0.1 x10^3/uL (0.0-0.7) Basophils # (Auto) 0.0 x10^3/uL (0.0-0.2) Review of Systems Review of Systems A 14 point ROS was completed with the following noted as positive: Other systems reviewed and negative. \CONSTITUTIONAL: No fever or chills EYES: No recent changes SKIN: No rash or itching CARDIOVASCULAR: No chest pain, syncope, palpitations, or edema RESPIRATORY: No SOB or cough GASTROINTESTINAL: No nausea, vomiting or abdominal pain NEUROLOGICAL: No headaches or weakness ENDOCRINE: No cold or heat intolerance GENITOURINARY: No urgency or frequency of urination MUSCULOSKELETAL: No back pain or joint pain LYMPHATICS: No enlarged lymph nodes PSYCHIATRIC: No anxiety or depression Assessment and Plan Assessmemt and Plan Problems Medical Problems: (1) Anemia Status: Acute (2) COPD exacerbation Status: Acute (3) Hypoxia Status: Acute (4) Pneumonia Status: Acute Comment Review of Relevant I have reviewed the following items [place] (where applicable) has been applied. Labs Laboratory Tests Test 06/02/18 15:38 06/02/18 16:05 06/02/18 18:00 06/03/18 01:30 O2 Saturation 80 % (92-99) 96 % (92-99) Arterial Blood pH 7.48 (7.35-7.45) 7.46 (7.35-7.45) Arterial Blood pH (Temp corrected) 7.48 7.46 Arterial Blood pCO2 at Patient Temp 40 mmHg (35-46) 44 mmHg (35-46) Arterial Blood pCO2 (Temp correct) 40 mmHg 44 mmHg Arterial Blood pO2 at Patient Temp 44 mmHg (65-108) 83 mmHg (65-108) Arterial Blood pO2 (Temp corrected) 44 mmHg 83 mmHg Arterial Blood HCO3 29 mmol/L (21-28) 31 mmol/L (21-28) Arterial Blood Base Excess 5 mmol/L (-3-3) 6 mmol/L (-3-3) FiO2 21.0 40.0 White Blood Count 14.2 x10^3/uL (4.0-11.0) Red Blood Count 4.01 x10^6/uL (3.50-5.40) Hemoglobin 10.9 g/dL (12.0-15.5) Hematocrit 33.5 % (36.0-47.0) Mean Corpuscular Volume 84 fL (79-100) Mean Corpuscular Hemoglobin 27 pg (25-35) Mean Corpuscular Hemoglobin Concent 33 g/dL (31-37) Red Cell Distribution Width 16.6 % (11.5-14.5) Platelet Count 226 x10^3/uL (140-400) Neutrophils (%) (Auto) 75 % (31-73) Lymphocytes (%) (Auto) 15 % (24-48) Monocytes (%) (Auto) 7 % (0-9) Eosinophils (%) (Auto) 3 % (0-3) Basophils (%) (Auto) 1 % (0-3) Neutrophils # (Auto) 10.6 x10^3uL (1.8-7.7) Lymphocytes # (Auto) 2.1 x10^3/uL (1.0-4.8) Monocytes # (Auto) 1.0 x10^3/uL (0.0-1.1) Eosinophils # (Auto) 0.4 x10^3/uL (0.0-0.7) Basophils # (Auto) 0.1 x10^3/uL (0.0-0.2) Prothrombin Time 13.5 SEC (11.7-14.0) Prothromb Time International Ratio 1.1 (0.8-1.1) D-Dimer (Sangeetha) 1.67 ug/mlFEU (0.00-0.50) Sodium Level 140 mmol/L (136-145) Potassium Level 4.2 mmol/L (3.5-5.1) Chloride Level 100 mmol/L (98-107) Carbon Dioxide Level 35 mmol/L (21-32) Anion Gap 5 (6-14) Blood Urea Nitrogen 19 mg/dL (7-20) Creatinine 1.1 mg/dL (0.6-1.0) Estimated GFR (Cockcroft-Gault) 47.8 BUN/Creatinine Ratio 17 (6-20) Glucose Level 122 mg/dL (70-99) Lactic Acid Level 1.0 mmol/L (0.4-2.0) Calcium Level 8.5 mg/dL (8.5-10.1) Magnesium Level 1.8 mg/dL (1.8-2.4) Total Bilirubin 0.7 mg/dL (0.2-1.0) Aspartate Amino Transf (AST/SGOT) 14 U/L (15-37) Alanine Aminotransferase (ALT/SGPT) 17 U/L (14-59) Alkaline Phosphatase 84 U/L (46-116) Creatine Kinase 12 U/L (26-192) Troponin I Quantitative < 0.017 ng/mL (0.000-0.055) XG-Ghq-Y-Type Natriuretic Peptide 980 pg/mL (0-449) Total Protein 6.7 g/dL (6.4-8.2) Albumin 2.4 g/dL (3.4-5.0) Albumin/Globulin Ratio 0.6 (1.0-1.7) Nasal Screen 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) Test 06/03/18 10:07 06/04/18 08:30 Sodium Level 137 mmol/L (136-145) Potassium Level 4.0 mmol/L (3.5-5.1) Chloride Level 98 mmol/L (98-107) Carbon Dioxide Level 35 mmol/L (21-32) Anion Gap 4 (6-14) Blood Urea Nitrogen 18 mg/dL (7-20) Creatinine 1.1 mg/dL (0.6-1.0) Estimated GFR (Cockcroft-Gault) 47.8 Glucose Level 118 mg/dL (70-99) Calcium Level 8.4 mg/dL (8.5-10.1) White Blood Count 13.9 x10^3/uL (4.0-11.0) Red Blood Count 3.68 x10^6/uL (3.50-5.40) Hemoglobin 9.9 g/dL (12.0-15.5) Hematocrit 30.6 % (36.0-47.0) Mean Corpuscular Volume 83 fL (79-100) Mean Corpuscular Hemoglobin 27 pg (25-35) Mean Corpuscular Hemoglobin Concent 32 g/dL (31-37) Red Cell Distribution Width 16.1 % (11.5-14.5) Platelet Count 226 x10^3/uL (140-400) Neutrophils (%) (Auto) 83 % (31-73) Lymphocytes (%) (Auto) 11 % (24-48) Monocytes (%) (Auto) 6 % (0-9) Eosinophils (%) (Auto) 0 % (0-3) Basophils (%) (Auto) 0 % (0-3) Neutrophils # (Auto) 11.5 x10^3uL (1.8-7.7) Lymphocytes # (Auto) 1.5 x10^3/uL (1.0-4.8) Monocytes # (Auto) 0.8 x10^3/uL (0.0-1.1) Eosinophils # (Auto) 0.1 x10^3/uL (0.0-0.7) Basophils # (Auto) 0.0 x10^3/uL (0.0-0.2) Laboratory Tests Test 06/03/18 10:07 06/04/18 08:30 Sodium Level 137 mmol/L (136-145) Potassium Level 4.0 mmol/L (3.5-5.1) Chloride Level 98 mmol/L (98-107) Carbon Dioxide Level 35 mmol/L (21-32) Anion Gap 4 (6-14) Blood Urea Nitrogen 18 mg/dL (7-20) Creatinine 1.1 mg/dL (0.6-1.0) Estimated GFR (Cockcroft-Gault) 47.8 Glucose Level 118 mg/dL (70-99) Calcium Level 8.4 mg/dL (8.5-10.1) White Blood Count 13.9 x10^3/uL (4.0-11.0) Red Blood Count 3.68 x10^6/uL (3.50-5.40) Hemoglobin 9.9 g/dL (12.0-15.5) Hematocrit 30.6 % (36.0-47.0) Mean Corpuscular Volume 83 fL (79-100) Mean Corpuscular Hemoglobin 27 pg (25-35) Mean Corpuscular Hemoglobin Concent 32 g/dL (31-37) Red Cell Distribution Width 16.1 % (11.5-14.5) Platelet Count 226 x10^3/uL (140-400) Neutrophils (%) (Auto) 83 % (31-73) Lymphocytes (%) (Auto) 11 % (24-48) Monocytes (%) (Auto) 6 % (0-9) Eosinophils (%) (Auto) 0 % (0-3) Basophils (%) (Auto) 0 % (0-3) Neutrophils # (Auto) 11.5 x10^3uL (1.8-7.7) Lymphocytes # (Auto) 1.5 x10^3/uL (1.0-4.8) Monocytes # (Auto) 0.8 x10^3/uL (0.0-1.1) Eosinophils # (Auto) 0.1 x10^3/uL (0.0-0.7) Basophils # (Auto) 0.0 x10^3/uL (0.0-0.2) Microbiology 06/02/18 Blood Culture - Final, Complete Medications Current Medications Methylprednisolone Sodium Succinate (SOLU-Medrol 125MG VIAL) 125 mg 1X ONCE IV Last administered on 06/02/18at 18:20; Start 06/02/18 at 15:45; Stop 06/02/18 at 15:46; Status DC Ceftriaxone Sodium 1 gm/ Dextrose 50 ml @ 100 mls/hr Q24H IV ; Start 06/02/18 at 16:45; Status UNV Ceftriaxone Sodium 50 ml @ 100 mls/hr 1X ONCE IV Last administered on at 18:21; Start 06/02/18 at 17:00; Stop 06/02/18 at 17:29; Status DC Ceftriaxone Sodium (Rocephin) 1 gm Q24H IVP ; Start 06/03/18 at 17:00; Stop at 17:00; Status DC Albuterol/ Ipratropium (Duoneb) 3 ml RTQID NEB Last administered on 06/04/18at 07:53; Start 06/02/18 at 20:00 Methylprednisolone Sodium Succinate (SOLU-Medrol 40MG VIAL) 30 mg DAILY IV ; Start 06/03/18 at 09:00; Stop 06/03/18 at 09:00; Status DC Info (Do NOT chart on this placeholder) 0.5 each 1X ONCE MC ; Start 06/03/18 at 21:00; Stop 06/03/18 at 21:01; Status UNV Influenza Virus Vaccine (Afluria Trivalent [id number] Syringe) 0.5 ml ONCE ONCE VAX IM ; Start 06/03/18 at 09:00; Stop 06/03/18 at 09:01; Status DC Lactobacillus Rhamnosus (Culturelle) 1 cap BID PO Last administered on at 20:57; Start 06/03/18 at 09:00 Methylprednisolone Sodium Succinate (SOLU-Medrol 40MG VIAL) 40 mg DAILY IV Last administered on 06/03/18at 10:39; Start 06/03/18 at 09:00 Enoxaparin Sodium (Lovenox 40mg Syringe) 40 mg Q24H SQ Last administered on at 10:40; Start 06/03/18 at 08:00 Pantoprazole Sodium (Protonix) 40 mg DAILYAC PO Last administered on 06/03/18at 10:40; Start 06/03/18 at 08:00 Budesonide (Pulmicort) 0.5 mg RTBID NEB Last administered on 06/04/18at 07:53; Start 06/03/18 at 08:00 Ceftriaxone Sodium (Rocephin) 1 gm Q24H IVP Last administered on 06/03/18at 12: 30; Start 06/03/18 at 09:00 Guaifenesin (Robitussin Dm) 10 ml PRN Q6HRS PRN PO COUGH Last administered on 10:39; Start 06/03/18 at 09:15 Benzonatate (Tessalon Perle) 100 mg [id number] PO Last administered on 06/03/18 20 :56; Start 06/03/18 at 09:30 Acetaminophen (Tylenol) 650 mg TID PRN PRN PO PAIN Last administered on 10:41; Start 06/03/18 at 09:15 Aspirin (Ecotrin) 81 mg DAILY PO Last administered on 06/03/18 10:41; Start at 10:00 Carvedilol (Coreg) 6.25 mg BIDWMEALS PO Last administered on 06/03/18 17:39; Start 06/03/18 at 09:30 Cetirizine HCl (ZyrTEC) 10 mg DAILY PO Last administered on 06/03/18 10:41; Start 06/03/18 at 10:00 Ferrous Sulfate (Feosol) 325 mg DAILY PO Last administered on 06/03/18 10:41; Start 06/03/18 at 10:00 Furosemide (Lasix) 20 mg DAILY PO Last administered on 06/03/18 10:41; Start 06/03/18 at 10:00 Guaifenesin (Mucinex) 600 mg BID PO Last administered on 06/03/18 20:57; Start 06/03/18 at 21:00 Albuterol/ Ipratropium (Duoneb) 3 ml Q4HRS PRN IH CONGESTION; Start 06/03/18 at 09:15; Stop 06/03/18 at 09:15; Status DC Nystatin (Nystop) 1 rea QID TP Last administered on 06/03/18 21:01; Start at 13:00 Montelukast Sodium (Singulair) 10 mg QHS PO Last administered on 06/03/18 20: 57; Start 06/03/18 at 21:00 Atorvastatin Calcium (Lipitor) 5 mg QHS PO Last administered on 06/03/18at 20:57 ; Start 06/03/18 at 21:00 Albuterol Sulfate (Ventolin Neb Soln) 2.5 mg PRN Q4HRS PRN NEB SHORTNESS OF BREATH; Start 06/03/18 at 09:15 Iohexol (Omnipaque 300 Mg/ml) 60 ml 1X ONCE IV Last administered on 06/03/18at 11:27; Start 06/03/18 at 11:00; Stop 06/03/18 at 11:01; Status DC Info (CONTRAST GIVEN -- Rx MONITORING) 1 each PRN DAILY PRN MC SEE COMMENTS; Start 06/03/18 at 11:00; Stop 06/05/18 at 10:59 Active Scripts Active Prednisone 20 Mg Tablet 40 Mg PO DAILY Levaquin (Levofloxacin) 250 Mg Tablet 250 Mg PO DAILY06 2 Days Furosemide 20 Mg Tablet 20 Mg PO DAILY Mucinex (Guaifenesin) 600 Mg Tablet.er 600 Mg PO BID 14 Days Nystop (Nystatin) 60 Gm Powder 1 Rea TP QID 30 Days Cetirizine Hcl 10 Mg Tablet 10 Mg PO DAILY Montelukast Sodium Tablet (Montelukast Sodium) 10 Mg Tablet 10 Mg PO QHS Reported Tylenol (Acetaminophen) 325 Mg Tablet 650 Mg PO TID PRN PRN Aspir 81 (Aspirin) 81 Mg Tablet.dr 1 Tab PO DAILY Iron Supplement (Ferrous Sulfate) 325 Mg Tablet 1 Tab PO DAILY Advair 250-50 Diskus (Fluticasone/Salmeterol) 1 Each Disk.w.dev 1 Puff IH BID Duoneb 0.5-3(2.5) Mg/3 Ml (Albuterol/Ipratropium) 3 Ml Ampul.neb 3 Ml IH Q4HRS PRN Pravastatin Sodium 10 Mg Tablet 1 Tab PO DAILY Carvedilol 6.25 Mg Tablet 1 Tab PO BID Vitals/I & O Vital Sign - Last 24 Hours 06/03/18 06/03/18 06/03/18 06/03/18 10:40 11:00 12:41 15:36 Temp 98.1 98.1 Pulse 75 73 Resp 18 B/P (MAP) 118/44 156/75 (102) Pulse Ox 96 95 94 O2 Delivery Room Air Nasal Cannula Nasal Cannula O2 Flow Rate 4.0 4.0 06/03/18 06/03/18 06/03/18 06/03/18 15:40 17:39 19:00 19:55 Temp 97.6 97.8 97.6 97.8 Pulse 69 69 68 Resp 18 18 B/P (MAP) 122/64 (83) 122/64 137/73 (94) Pulse Ox 97 99 96 O2 Delivery Room Air Room Air Nasal Cannula O2 Flow Rate 4.0 06/03/18 06/03/18 06/03/18 06/04/18 19:57 20:00 23:00 03:00 Temp 97.7 98.8 97.7 98.8 Pulse 70 71 Resp 18 16 B/P (MAP) 130/58 (82) 132/66 (88) Pulse Ox 96 97 98 O2 Delivery Nasal Cannula Nasal Cannula Nasal Cannula Nasal Cannula O2 Flow Rate 4.0 4.0 06/04/18 06/04/18 06/04/18 07:00 07:55 07:58 Temp 98.7 98.7 Pulse 69 Resp 20 B/P (MAP) 152/83 (106) Pulse Ox 96 99 99 O2 Delivery Room Air Nasal Cannula Nasal Cannula O2 Flow Rate 4.0 4.0 Intake and Output 06/03/18 06/03/18 06/04/18 15:00 23:00 07:00 Intake Total 200 ml Output Total 201 ml Balance -1 ml TESS LOZANO MD Jun 04, 2018 09:41
[2018-06-04] MEDS: methylPREDNISolone SOD SUCC PF 40 MG/ML VIAL. IV SCH (09:59)
[2018-06-04] MEDS: PANTOPRAZOLE 40 MG TABLET.DR. PO SCH (10:00)
[2018-06-04] MEDS ORDERED: VANCOMYCIN 1.75 GM in IV NORMAL SALINE 500ML BAG 500 ML IV ONE (10:00)
[2018-06-04] MEDS: BENZONATATE 100 MG CAPSULE. PO SCH ×3 (10:00→20:25)
[2018-06-04] MEDS: ASPIRIN ENTERIC COATED 81 MG TABLET.DR. PO SCH (10:00)
[2018-06-04] MEDS: CETIRIZINE HCL 10 MG TABLET. PO SCH (10:00)
[2018-06-04] MEDS: FERROUS SULFATE 325 MG TABLET. PO SCH (10:01)
[2018-06-04] MEDS: LACTOBACILLUS RHAMNOSUS GG 1 CAPSULE. PO SCH ×2 (10:01→20:25)
[2018-06-04] MEDS: CARVEDILOL 6.25 MG TABLET. PO SCH ×2 (10:01→17:06)
[2018-06-04] MEDS: ENOXAPARIN 40 MG/0.4 ML SYRINGE. SQ SCH (10:03)
[2018-06-04] MEDS: FUROSEMIDE 20 MG TABLET PO SCH (10:08)
[2018-06-04 11:00] VITALS: BP 138/70
--- NOTE | 2018-06-04 11:45 | PDOC ---
PULMONARY PROGRESS NOTES Subjective mild cough , no soa Vitals Vital Signs Date Time Temp Pulse Resp B/P (MAP) Pulse Ox O2 Delivery O2 Flow Rate FiO2 06/04/18 11:37 99 Nasal Cannula 4.0 06/04/18 10:01 69 152/83 06/04/18 07:00 98.7 20 98.7 General: Alert, No acute distress Lungs: Other (decrease bases) Cardiovascular: S1, S2 Abdomen: Soft, Non-tender Neuro Exam: Alert Extremities: No Edema Skin: Warm Labs Laboratory Tests Test 06/02/18 15:38 06/02/18 16:05 06/02/18 18:00 06/03/18 01:30 O2 Saturation 80 % (92-99) 96 % (92-99) Arterial Blood pH 7.48 (7.35-7.45) 7.46 (7.35-7.45) Arterial Blood pH (Temp corrected) 7.48 7.46 Arterial Blood pCO2 at Patient Temp 40 mmHg (35-46) 44 mmHg (35-46) Arterial Blood pCO2 (Temp correct) 40 mmHg 44 mmHg Arterial Blood pO2 at Patient Temp 44 mmHg (65-108) 83 mmHg (65-108) Arterial Blood pO2 (Temp corrected) 44 mmHg 83 mmHg Arterial Blood HCO3 29 mmol/L (21-28) 31 mmol/L (21-28) Arterial Blood Base Excess 5 mmol/L (-3-3) 6 mmol/L (-3-3) FiO2 21.0 40.0 White Blood Count 14.2 x10^3/uL (4.0-11.0) Red Blood Count 4.01 x10^6/uL (3.50-5.40) Hemoglobin 10.9 g/dL (12.0-15.5) Hematocrit 33.5 % (36.0-47.0) Mean Corpuscular Volume 84 fL (79-100) Mean Corpuscular Hemoglobin 27 pg (25-35) Mean Corpuscular Hemoglobin Concent 33 g/dL (31-37) Red Cell Distribution Width 16.6 % (11.5-14.5) Platelet Count 226 x10^3/uL (140-400) Neutrophils (%) (Auto) 75 % (31-73) Lymphocytes (%) (Auto) 15 % (24-48) Monocytes (%) (Auto) 7 % (0-9) Eosinophils (%) (Auto) 3 % (0-3) Basophils (%) (Auto) 1 % (0-3) Neutrophils # (Auto) 10.6 x10^3uL (1.8-7.7) Lymphocytes # (Auto) 2.1 x10^3/uL (1.0-4.8) Monocytes # (Auto) 1.0 x10^3/uL (0.0-1.1) Eosinophils # (Auto) 0.4 x10^3/uL (0.0-0.7) Basophils # (Auto) 0.1 x10^3/uL (0.0-0.2) Prothrombin Time 13.5 SEC (11.7-14.0) Prothromb Time International Ratio 1.1 (0.8-1.1) D-Dimer (Sangeetha) 1.67 ug/mlFEU (0.00-0.50) Sodium Level 140 mmol/L (136-145) Potassium Level 4.2 mmol/L (3.5-5.1) Chloride Level 100 mmol/L (98-107) Carbon Dioxide Level 35 mmol/L (21-32) Anion Gap 5 (6-14) Blood Urea Nitrogen 19 mg/dL (7-20) Creatinine 1.1 mg/dL (0.6-1.0) Estimated GFR (Cockcroft-Gault) 47.8 BUN/Creatinine Ratio 17 (6-20) Glucose Level 122 mg/dL (70-99) Lactic Acid Level 1.0 mmol/L (0.4-2.0) Calcium Level 8.5 mg/dL (8.5-10.1) Magnesium Level 1.8 mg/dL (1.8-2.4) Total Bilirubin 0.7 mg/dL (0.2-1.0) Aspartate Amino Transf (AST/SGOT) 14 U/L (15-37) Alanine Aminotransferase (ALT/SGPT) 17 U/L (14-59) Alkaline Phosphatase 84 U/L (46-116) Creatine Kinase 12 U/L (26-192) Troponin I Quantitative < 0.017 ng/mL (0.000-0.055) VG-Hym-B-Type Natriuretic Peptide 980 pg/mL (0-449) Total Protein 6.7 g/dL (6.4-8.2) Albumin 2.4 g/dL (3.4-5.0) Albumin/Globulin Ratio 0.6 (1.0-1.7) Nasal Screen 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) Test 06/03/18 10:07 06/04/18 08:30 Sodium Level 137 mmol/L (136-145) 137 mmol/L (136-145) Potassium Level 4.0 mmol/L (3.5-5.1) 4.3 mmol/L (3.5-5.1) Chloride Level 98 mmol/L (98-107) 100 mmol/L (98-107) Carbon Dioxide Level 35 mmol/L (21-32) 31 mmol/L (21-32) Anion Gap 4 (6-14) 6 (6-14) Blood Urea Nitrogen 18 mg/dL (7-20) 25 mg/dL (7-20) Creatinine 1.1 mg/dL (0.6-1.0) 1.0 mg/dL (0.6-1.0) Estimated GFR (Cockcroft-Gault) 47.8 53.3 Glucose Level 118 mg/dL (70-99) 118 mg/dL (70-99) Calcium Level 8.4 mg/dL (8.5-10.1) 8.2 mg/dL (8.5-10.1) White Blood Count 13.9 x10^3/uL (4.0-11.0) Red Blood Count 3.68 x10^6/uL (3.50-5.40) Hemoglobin 9.9 g/dL (12.0-15.5) Hematocrit 30.6 % (36.0-47.0) Mean Corpuscular Volume 83 fL (79-100) Mean Corpuscular Hemoglobin 27 pg (25-35) Mean Corpuscular Hemoglobin Concent 32 g/dL (31-37) Red Cell Distribution Width 16.1 % (11.5-14.5) Platelet Count 226 x10^3/uL (140-400) Neutrophils (%) (Auto) 83 % (31-73) Lymphocytes (%) (Auto) 11 % (24-48) Monocytes (%) (Auto) 6 % (0-9) Eosinophils (%) (Auto) 0 % (0-3) Basophils (%) (Auto) 0 % (0-3) Neutrophils # (Auto) 11.5 x10^3uL (1.8-7.7) Lymphocytes # (Auto) 1.5 x10^3/uL (1.0-4.8) Monocytes # (Auto) 0.8 x10^3/uL (0.0-1.1) Eosinophils # (Auto) 0.1 x10^3/uL (0.0-0.7) Basophils # (Auto) 0.0 x10^3/uL (0.0-0.2) Laboratory Tests Test 06/04/18 08:30 White Blood Count 13.9 x10^3/uL (4.0-11.0) Red Blood Count 3.68 x10^6/uL (3.50-5.40) Hemoglobin 9.9 g/dL (12.0-15.5) Hematocrit 30.6 % (36.0-47.0) Mean Corpuscular Volume 83 fL (79-100) Mean Corpuscular Hemoglobin 27 pg (25-35) Mean Corpuscular Hemoglobin Concent 32 g/dL (31-37) Red Cell Distribution Width 16.1 % (11.5-14.5) Platelet Count 226 x10^3/uL (140-400) Neutrophils (%) (Auto) 83 % (31-73) Lymphocytes (%) (Auto) 11 % (24-48) Monocytes (%) (Auto) 6 % (0-9) Eosinophils (%) (Auto) 0 % (0-3) Basophils (%) (Auto) 0 % (0-3) Neutrophils # (Auto) 11.5 x10^3uL (1.8-7.7) Lymphocytes # (Auto) 1.5 x10^3/uL (1.0-4.8) Monocytes # (Auto) 0.8 x10^3/uL (0.0-1.1) Eosinophils # (Auto) 0.1 x10^3/uL (0.0-0.7) Basophils # (Auto) 0.0 x10^3/uL (0.0-0.2) Sodium Level 137 mmol/L (136-145) Potassium Level 4.3 mmol/L (3.5-5.1) Chloride Level 100 mmol/L (98-107) Carbon Dioxide Level 31 mmol/L (21-32) Anion Gap 6 (6-14) Blood Urea Nitrogen 25 mg/dL (7-20) Creatinine 1.0 mg/dL (0.6-1.0) Estimated GFR (Cockcroft-Gault) 53.3 Glucose Level 118 mg/dL (70-99) Calcium Level 8.2 mg/dL (8.5-10.1) Medications Active Scripts Medications Dose Route/Sig Max Daily Dose Days Date Category Prednisone 20 Mg Tablet 40 Mg PO DAILY 05/21/18 Rx Levaquin (Levofloxacin) 250 Mg Tablet 250 Mg PO DAILY06 2 05/21/18 Rx Furosemide 20 Mg Tablet 20 Mg PO DAILY 02/21/18 Rx Mucinex (Guaifenesin) 600 Mg Tablet.er 600 Mg PO BID 14 01/26/18 Rx Nystop (Nystatin) 60 Gm Powder 1 Rea TP QID 30 01/02/18 Rx Cetirizine Hcl 10 Mg Tablet 10 Mg PO DAILY 01/13/17 Rx Montelukast Sodium Tablet (Montelukast Sodium) 10 Mg Tablet 10 Mg PO QHS 12/19/16 Rx Tylenol (Acetaminophen) 325 Mg Tablet 650 Mg PO TID PRN PRN 04/11/16 Reported Aspir 81 (Aspirin) 81 Mg Tablet.dr 1 Tab PO DAILY 04/11/16 Reported Iron Supplement (Ferrous Sulfate) 325 Mg Tablet 1 Tab PO DAILY 11/10/15 Reported Advair 250-50 Diskus (Fluticasone/Salmeterol) 1 Each Disk.w.dev 1 Puff IH BID 05/06/15 Reported Duoneb 0.5-3(2.5) Mg/3 Ml (Albuterol/Ipratropium) 3 Ml Ampul.neb 3 Ml IH Q4HRS PRN 05/06/15 Reported Pravastatin Sodium 10 Mg Tablet 1 Tab PO DAILY 09/16/14 Reported Carvedilol 6.25 Mg Tablet 1 Tab PO BID 09/16/[address] CHEST 1. No CT evidence of central pulmonary emboli. 2. Emphysema with pleural-parenchymal scarring 3. 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 4. Bibasilar bronchiectasis, worse on the right, with moderate associated right lower lobe infiltrate suggesting pneumonia. 5. 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 Impression . 1. [id number] respiratory failure secondary to acute exacerbation of chronic obstructive pulmonary disease, pneumonia/ Basal bronchiectasis 2. Abnormal ct chest with RLL pneumonia/ underlying bronchiectasis 3. Acute exacerbation of chronic obstructive pulmonary disease. 4. Acute bronchitis. 5. High probability V/Q scan by report. apppears to be matched defects. NO pulmonary embolism by CTA 6. Ex-smoker. 7. Hypertension. 8. Diabetes mellitus. Plan . 1. Titrate FiO2 to keep O2 saturation 92%. 2. Neg lower extremity venous Doppler. 3. broaden Abx, change Rocephin to Zosyn 4. Lovenox for DVT prophylaxis. 5. Protonix for stress ulcer prophylaxis. 6. Solu-Medrol 7. Oxygen at baseline 4 litres SHERON URENA MD Jun 04, 2018 11:45
[2018-06-04] MEDS ORDERED: cefTRIAXone IV Push 1 GM VIAL. IVP SCH (12:00)
[2018-06-04] MEDS ORDERED: PIP/TAZO PER PHARMACY MC PRN (12:00)
--- NOTE | 2018-06-04 12:24 | PDOC ---
Provider Note Provider Note pt seen dictated [id number] SUNG NORTON MD Jun 04, 2018 12:24
[2018-06-04] MEDS: PIPERACILLIN/TAZOBACTAM 3.375 GM in IV NORMAL SALINE 50ML 50 ML IV SCH ×2 (12:30→20:25)
--- NOTE | 2018-06-04 13:33 | CONS ---
DATE OF CONSULTATION: 06/04/2018 REFERRING PHYSICIAN: Dr. Bueno. REASON FOR CONSULTATION: Gram-positive bacteremia. HISTORY OF PRESENT ILLNESS: This is an 78-year-old female with history of COPD on O2 dependence, history of CHF, presented to the ER on 06/02/2018 with worsening shortness of breath, which started a couple of days prior to admission. She was admitted to the medical floor with a working diagnosis of COPD exacerbation and acute on chronic systolic and diastolic heart failure. She was started on empiric ceftriaxone. Blood cultures were done, which have been reported 1 out of 2 positive for gram-positive cocci, ID and VICENTE is pending at this time. She had chest x-ray done, which showed chronic parenchymal scarring and calcific pleural plaquing, ongoing right basilar infiltrate with decreased right pleural effusion. No new abnormality seen. She underwent VQ scan, which showed high probability VQ scan, so underwent Doppler of the right lower extremity, which showed negative for DVT. She underwent CTA yesterday, which showed no evidence of central pulmonary emboli, emphysema with pleural/parenchymal scarring, calcific pleural plaquing suggesting previous asbestos exposure. Bibasilar bronchiectasis, worse on the right with moderate associated right lower lobe infiltrate suggesting pneumonia, probable hepatic cirrhosis. Today, the patient says she denies any fevers, chills, still has a cough. No worsening shortness of breath that is improving. She denies any nausea, vomiting, diarrhea, abdominal pain, symptoms. She does have pain from DJD, but no new pain, all chronic. She denies any history of hardware placement. PAST MEDICAL HISTORY: COPD, O2 dependent; CHF; diabetes; hypertension; hyperlipidemia. PAST SURGICAL HISTORY: Cholecystectomy. ALLERGIES: DOXYCYCLINE. FAMILY HISTORY: Diabetes. SOCIAL HISTORY: Lives alone. Used to smoke, quit smoking. No ETOH. CURRENT MEDICATIONS: Reviewed. Please refer to MRAD. REVIEW OF SYSTEMS: Negative except for above in HPI. PHYSICAL EXAMINATION: VITAL SIGNS: Temperature 98.6, pulse 70, respiratory rate 18, blood pressure 138/70, oxygen saturation 99% on 4 liters. GENERAL: Alert, oriented, sitting in chair, in no acute distress, cooperative. HEENT: Normocephalic, atraumatic, anicteric. No thrush. Oral mucosa moist. No exudate. NECK: Supple. No JVD. LUNGS: Decreased breath sounds at the bases. No wheezing. HEART: S1, S2. ABDOMEN: Soft, nontender. No rebound. EXTREMITIES: No edema, no cyanosis. MUSCULOSKELETAL: changes s/o DJD. No joint swelling. No replacement noted. NEUROLOGIC: Alert, oriented times 3. SKIN: Warm, dry, no generalized rash. PSYCHIATRIC: Cooperative, appropriate mood and affect. LABORATORY DATA: WBC 13.9, was 14.0; hemoglobin 9.9, was 10.9; hematocrit 30.6; platelets 226. Sodium 137, potassium 4.3, chloride 100, bicarbonate 31, BUN 25, creatinine 1.0, glucose 118, calcium 8.2. Lactate 1.0. BNP 980. Nasal screen MRSA PCR positive. CTA, impression: No CT evidence of central pulmonary emboli, emphysema with pleural/parenchymal scarring, calcific pleural plaquing suggesting previous asbestos exposure. Bibasilar bronchiectasis, worse on the right with moderate associated right lobe infiltrate suggesting pneumonia, probable hepatic cirrhosis. Micro 06/02/2018 blood culture 1 out of 2 positive for GPC, ID and VICENTE pending at this time. IMPRESSION: 1. GPC bacteremia 1/2 bottles, could be contaminant. ID and VICENTE pending at this time. 2. Acute on chronic respiratory failure from acute exacerbation of chronic obstructive pulmonary disease ,chronic bronchitis 3. Right lower lobe pneumonia with underlying bronchiectasis. 4. High probability VQ scan with no evidence of PE on CTA. 5. Ex-smoker. 6. Diabetes. 7. Hypertension. 8. Anemia. RECOMMENDATIONS: 1. Continue empiric IV vancomycin. Monitor renal functions closely. 2. Rocephin has been broadened to Zosyn today. 3. Continue supportive care. 4. Follow up labs in a.m. 5. Follow up ID and VICENTE of blood culture results. 6. Continue supportive care. Thank you for consulting Infectious Disease to participate in this patient's care. If you have any questions, do not hesitate to contact me. SUNG NORTON MD DR: TRACI/rito JOB#: [id number] / [id number] ZULMA
[2018-06-04] MEDS: VANCOMYCIN PER PHARMACY MC PRN ×2 (13:35→18:55)
[2018-06-04 15:00] VITALS: BP 145/73
[2018-06-04 19:00] VITALS: BP 133/76
[2018-06-04] MEDS: ATORVASTATIN CALCIUM 10 MG TABLET. PO SCH (20:25)
[2018-06-04] MEDS: MONTELUKAST SODIUM 10 MG TABLET. PO SCH (20:25)
[2018-06-04 22:48] VITALS: BP 141/61
[2018-06-05] MEDS: PIPERACILLIN/TAZOBACTAM 3.375 GM in IV NORMAL SALINE 50ML 50 ML IV SCH ×5 (00:21→23:57)
[2018-06-05 02:54] VITALS: BP 119/54
[2018-06-05 06:49] VITALS: BP 136/80
[2018-06-05] MEDS: IPRATRPIUM/ALBUTEROL 0.5/2.5MG 3 ML NEBU. NEB SCH ×4 (07:42→20:08)
[2018-06-05] MEDS: BUDESONIDE 0.5 MG/2 ML NEBU. NEB SCH ×2 (07:43→20:08)
[2018-06-05 07:49] LABS: CREATININE 1.2 mg/dL (0.6-1.0); GFR 43.2
--- NOTE | 2018-06-05 09:06 | PDOC ---
Infectious Disease Note ROS: ROS Negative except for above. Vital Signs: Vital Signs Vital Signs Date Time Temp Pulse Resp B/P (MAP) Pulse Ox O2 Delivery O2 Flow Rate FiO2 06/05/18 07:43 99 Nasal Cannula 4.0 06/05/18 06:49 97.7 70 18 136/80 (98) 97.7 Physical Exam: PHYSICAL EXAM GENERAL: Alert, oriented, sitting in chair, in no acute distress, cooperative. HEENT: Normocephalic, atraumatic, anicteric. No thrush. Oral mucosa moist. No exudate. NECK: Supple. No JVD. LUNGS: Decreased breath sounds at the bases. No wheezing. HEART: S1, S2. ABDOMEN: Soft, nontender. No rebound. EXTREMITIES: No edema, no cyanosis. MUSCULOSKELETAL: changes of DJD. No joint swelling. No replacement noted. NEUROLOGIC: Alert, oriented times 3. SKIN: Warm, dry, no generalized rash. PSYCHIATRIC: Cooperative, appropriate mood and affect. Medications: Inpatient Meds: Current Medications Medications (Trade) Dose Ordered Sig/Eva Start Time Stop Time Status Last Admin Dose Admin Acetaminophen (Tylenol) 650 mg TID PRN PRN 06/03/18 09:15 06/03/18 10:41 Albuterol Sulfate (Ventolin Neb Soln) 2.5 mg PRN Q4HRS PRN 06/03/18 09:15 Albuterol/ Ipratropium (Duoneb) 3 ml Q4HRS PRN 06/03/18 09:15 06/03/18 09:15 DC Aspirin (Ecotrin) 81 mg DAILY 06/03/18 10:00 06/04/18 10:00 Atorvastatin Calcium (Lipitor) 5 mg QHS 06/03/18 21:00 06/04/18 20:25 Benzonatate (Tessalon Perle) 100 mg [id number] 06/03/18 09:30 06/04/18 20:25 Budesonide (Pulmicort) 0.5 mg RTBID 06/03/18 08:00 06/05/18 07:43 Carvedilol (Coreg) 6.25 mg BIDWMEALS 06/03/18 09:30 06/04/18 17:06 Ceftriaxone Sodium 1 gm/ Dextrose 50 ml @ 100 mls/hr Q24H 06/04/18 10:45 UNV Ceftriaxone Sodium (Rocephin) 1 gm Q24H 06/04/18 12:00 06/04/18 12:00 DC Cetirizine HCl (ZyrTEC) 10 mg DAILY 06/03/18 10:00 06/04/18 10:00 Enoxaparin Sodium (Lovenox 40mg Syringe) 40 mg Q24H 06/03/18 08:00 06/04/18 10:03 Ferrous Sulfate (Feosol) 325 mg DAILY 06/03/18 10:00 06/04/18 10:01 Furosemide (Lasix) 20 mg DAILY 06/03/18 10:00 06/04/18 10:08 Guaifenesin (Mucinex) 600 mg BID 06/03/18 21:00 06/04/18 20:25 Guaifenesin (Robitussin Dm) 10 ml PRN Q6HRS PRN 06/03/18 09:15 06/03/18 10:39 Influenza Virus Vaccine (Afluria Trivalent [id number] Syringe) 0.5 ml ONCE ONCE 06/03/18 09:00 06/03/18 09:01 DC Info (CONTRAST GIVEN -- Rx MONITORING) 1 each PRN DAILY PRN 06/03/18 11:00 06/05/18 10:59 Info (Do NOT chart on this placeholder) 0.5 each 1X ONCE 06/03/18 21:00 06/03/18 21:01 UNV Iohexol (Omnipaque 300 Mg/ml) 60 ml 1X ONCE 06/03/18 11:00 06/03/18 11:01 DC 06/03/18 11:27 Lactobacillus Rhamnosus (Culturelle) 1 cap BID 06/03/18 09:00 06/04/18 20:25 Methylprednisolone Sodium Succinate (SOLU-Medrol 40MG VIAL) 40 mg DAILY 06/03/18 09:00 06/04/18 09:59 Methylprednisolone Sodium Succinate (SOLU-Medrol 125MG VIAL) 125 mg 1X ONCE 06/02/18 15:45 06/02/18 15:46 DC 06/02/18 18:20 Montelukast Sodium (Singulair) 10 mg QHS 06/03/18 21:00 06/04/18 20:25 Nystatin (Nystop) 1 jaison QID 06/03/18 13:00 06/04/18 20:26 Pantoprazole Sodium (Protonix) 40 mg DAILYAC 06/03/18 08:00 06/04/18 10:00 Piperacillin Sod/ Tazobactam Sod (Zosyn Per Pharmacy) 1 each PRN DAILY PRN 06/04/18 12:00 Piperacillin Sod/ Tazobactam Sod 3.375 gm/Sodium Chloride 50 ml @ 100 mls/hr Q6HRS 06/04/18 12:30 06/05/18 06:31 Vancomycin HCl (Vanco Per Pharmacy) 1 each PRN DAILY PRN 06/04/18 09:45 06/04/18 18:55 Vancomycin HCl (Vancomycin Trough Level) 1 each 1X ONCE 06/06/18 17:00 06/06/18 17:01 Vancomycin HCl 1.75 gm/Sodium Chloride 500 ml @ 250 mls/hr 1X ONCE 06/04/18 10:00 06/04/18 11:59 DC 06/04/18 11:34 Vancomycin HCl 1 gm/Sodium Chloride 250 ml @ 250 mls/hr Q24H 06/05/18 11:30 Labs: Lab Laboratory Tests Test 06/05/18 06:50 Creatinine 1.2 mg/dL (0.6-1.0) Estimated GFR (Cockcroft-Gault) 43.2 Micro BC GPC,GPR Objective: Assessment: 1. GPC and GPR bacteremia,likely contaminant. ID and VICENTE pending at this time. 2. Acute on chronic respiratory failure secondary to acute exacerbation of chronic obstructive pulmonary disease, pneumonia, bronchiectasis on CTA. 3. Right lower lobe pneumonia with underlying bronchiectasis. 4. High probability VQ scan with no evidence of PE, on CTA. 5. Ex-smoker. 6. Diabetes. 7. Hypertension. 8. Anemia. Plan: Plan of Care RECOMMENDATIONS: 1. Continue empiric IV vancomycin and Zosyn 2. FU final ID of GPC in BC 3. Continue supportive care. 4. Follow up labs in SUNG Motley MD Jun 05, 2018 09:06
[2018-06-05] MEDS: methylPREDNISolone SOD SUCC PF 40 MG/ML VIAL. IV SCH (09:50)
[2018-06-05] MEDS: PANTOPRAZOLE 40 MG TABLET.DR. PO SCH (09:50)
[2018-06-05] MEDS: FERROUS SULFATE 325 MG TABLET. PO SCH (09:50)
[2018-06-05] MEDS: ENOXAPARIN 40 MG/0.4 ML SYRINGE. SQ SCH (09:50)
[2018-06-05] MEDS: CETIRIZINE HCL 10 MG TABLET. PO SCH (09:51)
[2018-06-05] MEDS: BENZONATATE 100 MG CAPSULE. PO SCH ×3 (09:51→20:06)
[2018-06-05] MEDS: FUROSEMIDE 20 MG TABLET PO SCH (09:51)
[2018-06-05] MEDS: LACTOBACILLUS RHAMNOSUS GG 1 CAPSULE. PO SCH ×2 (09:51→20:06)
[2018-06-05] MEDS: ASPIRIN ENTERIC COATED 81 MG TABLET.DR. PO SCH (09:51)
[2018-06-05] MEDS: CARVEDILOL 6.25 MG TABLET. PO SCH ×2 (09:52→17:14)
[2018-06-05] MEDS: NYSTATIN TOPICAL POWDER 15GM BOTTLE. TP SCH ×4 (09:52→20:06)
--- NOTE | 2018-06-05 10:53 | PDOC ---
PROGRESS NOTES Chief Complaint Chief Complaint COPD exacerbation GPC bacteremia 06/04 - diphtheriods CHF mild to moderate exacerbation-possibly acute on chronic combined No pneumonia Feels to thrive in an elderly Generalized weakness Cachexia with severe PCM - alb 1.8 NEver smoker Acute on chronic hypoxic respiratory failure-home O2 dependent FUll Code History of Present Illness History of Present Illness no increase in SOA but coughing chunky sounding cough Diphtheroids on BC No fever, nontoxic-appearing Wants to go home tmr, has an event on to go to Plan: follow ID recs Daily PT OT fall risk HOme once shifted to PO abx Cough med more Vitals Vitals Vital Signs Date Time Temp Pulse Resp B/P (MAP) Pulse Ox O2 Delivery O2 Flow Rate FiO2 06/05/18 09:52 70 136/80 06/05/18 07:43 99 Nasal Cannula 4.0 06/05/18 06:49 97.7 18 97.7 Physical Exam Physical Exam GENERAL: Alert, oriented, sitting in chair, in no acute distress, cooperative. HEENT: Normocephalic, atraumatic, anicteric. No thrush. Oral mucosa moist. No exudate. NECK: Supple. No JVD. LUNGS: Decreased breath sounds at the bases. No wheezing. HEART: S1, S2. ABDOMEN: Soft, nontender. No rebound. EXTREMITIES: No edema, no cyanosis. MUSCULOSKELETAL: changes of DJD. No joint swelling. No replacement noted. NEUROLOGIC: Alert, oriented times 3. SKIN: Warm, dry, no generalized rash. PSYCHIATRIC: Cooperative, appropriate mood and affect. General: Alert, No acute distress Heart: Regular rate, Normal S1, Normal S2 Lungs: Other (decrease bases) Abdomen: Normal bowel sounds, Soft, No tenderness, No hepatosplenomegaly Extremities: No clubbing, No cyanosis, No edema, Normal pulses Skin: No rashes, No breakdown, No significant lesion, Other (senile skin turgor , minimal subcutaneous tissues tissue) Labs LABS Laboratory Tests Test 06/05/18 06:50 Creatinine 1.2 mg/dL (0.6-1.0) Estimated GFR (Cockcroft-Gault) 43.2 Review of Systems Review of Systems Coughing, no increase in SOA, no fever, no abdominal symptoms, no chest pain, the rest of ROS 14 point negative Assessment and Plan Assessmemt and Plan Problems Medical Problems: (1) Anemia Status: Acute (2) COPD exacerbation Status: Acute (3) Hypoxia Status: Acute (4) Pneumonia Status: Acute Comment Review of Relevant I have reviewed the following items [place] (where applicable) has been applied. Labs Laboratory Tests Test 06/04/18 08:30 06/05/18 06:50 White Blood Count 13.9 x10^3/uL (4.0-11.0) Red Blood Count 3.68 x10^6/uL (3.50-5.40) Hemoglobin 9.9 g/dL (12.0-15.5) Hematocrit 30.6 % (36.0-47.0) Mean Corpuscular Volume 83 fL (79-100) Mean Corpuscular Hemoglobin 27 pg (25-35) Mean Corpuscular Hemoglobin Concent 32 g/dL (31-37) Red Cell Distribution Width 16.1 % (11.5-14.5) Platelet Count 226 x10^3/uL (140-400) Neutrophils (%) (Auto) 83 % (31-73) Lymphocytes (%) (Auto) 11 % (24-48) Monocytes (%) (Auto) 6 % (0-9) Eosinophils (%) (Auto) 0 % (0-3) Basophils (%) (Auto) 0 % (0-3) Neutrophils # (Auto) 11.5 x10^3uL (1.8-7.7) Lymphocytes # (Auto) 1.5 x10^3/uL (1.0-4.8) Monocytes # (Auto) 0.8 x10^3/uL (0.0-1.1) Eosinophils # (Auto) 0.1 x10^3/uL (0.0-0.7) Basophils # (Auto) 0.0 x10^3/uL (0.0-0.2) Sodium Level 137 mmol/L (136-145) Potassium Level 4.3 mmol/L (3.5-5.1) Chloride Level 100 mmol/L (98-107) Carbon Dioxide Level 31 mmol/L (21-32) Anion Gap 6 (6-14) Blood Urea Nitrogen 25 mg/dL (7-20) Creatinine 1.0 mg/dL (0.6-1.0) 1.2 mg/dL (0.6-1.0) Estimated GFR (Cockcroft-Gault) 53.3 43.2 Glucose Level 118 mg/dL (70-99) Calcium Level 8.2 mg/dL (8.5-10.1) Laboratory Tests Test 06/05/18 06:50 Creatinine 1.2 mg/dL (0.6-1.0) Estimated GFR (Cockcroft-Gault) 43.2 Microbiology 06/02/18 Blood Culture - Final, Complete Medications Current Medications Methylprednisolone Sodium Succinate (SOLU-Medrol 125MG VIAL) 125 mg 1X ONCE IV Last administered on 06/02/18at 18:20; Start 06/02/18 at 15:45; Stop 06/02/18 at 15:46; Status DC Ceftriaxone Sodium 1 gm/ Dextrose 50 ml @ 100 mls/hr Q24H IV ; Start 06/02/18 at 16:45; Status UNV Ceftriaxone Sodium 50 ml @ 100 mls/hr 1X ONCE IV Last administered on at 18:21; Start 06/02/18 at 17:00; Stop 06/02/18 at 17:29; Status DC Ceftriaxone Sodium (Rocephin) 1 gm Q24H IVP ; Start 06/03/18 at 17:00; Stop at 17:00; Status DC Albuterol/ Ipratropium (Duoneb) 3 ml RTQID NEB Last administered on 06/05/18at 07:42; Start 06/02/18 at 20:00 Methylprednisolone Sodium Succinate (SOLU-Medrol 40MG VIAL) 30 mg DAILY IV ; Start 06/03/18 at 09:00; Stop 06/03/18 at 09:00; Status DC Info (Do NOT chart on this placeholder) 0.5 each 1X ONCE MC ; Start 06/03/18 at 21:00; Stop 06/03/18 at 21:01; Status UNV Influenza Virus Vaccine (Afluria Trivalent [id number] Syringe) 0.5 ml ONCE ONCE VAX IM ; Start 06/03/18 at 09:00; Stop 06/03/18 at 09:01; Status DC Lactobacillus Rhamnosus (Culturelle) 1 cap BID PO Last administered on at 09:51; Start 06/03/18 at 09:00 Methylprednisolone Sodium Succinate (SOLU-Medrol 40MG VIAL) 40 mg DAILY IV Last administered on 06/05/18 09:50; Start 06/03/18 at 09:00 Enoxaparin Sodium (Lovenox 40mg Syringe) 40 mg Q24H SQ Last administered on 09:50; Start 06/03/18 at 08:00 Pantoprazole Sodium (Protonix) 40 mg DAILYAC PO Last administered on 06/05/18 09:50; Start 06/03/18 at 08:00 Budesonide (Pulmicort) 0.5 mg RTBID NEB Last administered on 06/05/18 07:43; Start 06/03/18 at 08:00 Ceftriaxone Sodium (Rocephin) 1 gm Q24H IVP Last administered on 06/03/18 12: 30; Start 06/03/18 at 09:00; Stop 06/04/18 at 09:37; Status DC Guaifenesin (Robitussin Dm) 10 ml PRN Q6HRS PRN PO COUGH Last administered on at 10:39; Start 06/03/18 at 09:15 Benzonatate (Tessalon Perle) 100 mg [id number] PO Last administered on 06/05/18 09 :51; Start 06/03/18 at 09:30 Acetaminophen (Tylenol) 650 mg TID PRN PRN PO PAIN Last administered on 10:41; Start 06/03/18 at 09:15 Aspirin (Ecotrin) 81 mg DAILY PO Last administered on 06/05/18 09:51; Start at 10:00 Carvedilol (Coreg) 6.25 mg BIDWMEALS PO Last administered on 06/05/18 09:52; Start 06/03/18 at 09:30 Cetirizine HCl (ZyrTEC) 10 mg DAILY PO Last administered on 06/05/18 09:51; Start 06/03/18 at 10:00 Ferrous Sulfate (Feosol) 325 mg DAILY PO Last administered on 06/05/18 09:50; Start 06/03/18 at 10:00 Furosemide (Lasix) 20 mg DAILY PO Last administered on 06/05/18 09:51; Start 06/03/18 at 10:00 Guaifenesin (Mucinex) 600 mg BID PO Last administered on 06/05/18at 09:51; Start 06/03/18 at 21:00 Albuterol/ Ipratropium (Duoneb) 3 ml Q4HRS PRN IH CONGESTION; Start 06/03/18 at 09:15; Stop 06/03/18 at 09:15; Status DC Nystatin (Nystop) 1 rea QID TP Last administered on 06/05/18at 09:52; Start at 13:00 Montelukast Sodium (Singulair) 10 mg QHS PO Last administered on 06/04/18at 20: 25; Start 06/03/18 at 21:00 Atorvastatin Calcium (Lipitor) 5 mg QHS PO Last administered on 06/04/18at 20:25 ; Start 06/03/18 at 21:00 Albuterol Sulfate (Ventolin Neb Soln) 2.5 mg PRN Q4HRS PRN NEB SHORTNESS OF BREATH; Start 06/03/18 at 09:15 Iohexol (Omnipaque 300 Mg/ml) 60 ml 1X ONCE IV Last administered on 06/03/18at 11:27; Start 06/03/18 at 11:00; Stop 06/03/18 at 11:01; Status DC Info (CONTRAST GIVEN -- Rx MONITORING) 1 each PRN DAILY PRN MC SEE COMMENTS; Start 06/03/18 at 11:00; Stop 06/05/18 at 10:59 Vancomycin HCl (Vanco Per Pharmacy) 1 each PRN DAILY PRN MC SEE COMMENTS Last administered on 06/04/18at 18:55; Start 06/04/18 at 09:45 Vancomycin HCl 1.75 gm/Sodium Chloride 500 ml @ 250 mls/hr 1X ONCE IV Last administered on 06/04/18at 11:34; Start 06/04/18 at 10:00; Stop 06/04/18 at 11:59 ; Status DC Ceftriaxone Sodium 1 gm/ Dextrose 50 ml @ 100 mls/hr Q24H IV ; Start 06/04/18 at 10:45; Status UNV Ceftriaxone Sodium (Rocephin) 1 gm Q24H IVP ; Start 06/04/18 at 12:00; Stop at 12:00; Status DC Piperacillin Sod/ Tazobactam Sod (Zosyn Per Pharmacy) 1 each PRN DAILY PRN MC SEE COMMENTS; Start 06/04/18 at 12:00 Piperacillin Sod/ Tazobactam Sod 3.375 gm/Sodium Chloride 50 ml @ 100 mls/hr Q6HRS IV Last administered on 06/05/18at 06:31; Start 06/04/18 at 12:30 Vancomycin HCl 1 gm/Sodium Chloride 250 ml @ 250 mls/hr Q24H IV ; Start at 11:30 Vancomycin HCl (Vancomycin Trough Level) 1 each 1X ONCE MC ; Start 06/06/18 at 17:00; Stop 06/06/18 at 17:01 Active Scripts Active Prednisone 20 Mg Tablet 40 Mg PO DAILY Levaquin (Levofloxacin) 250 Mg Tablet 250 Mg PO DAILY06 2 Days Furosemide 20 Mg Tablet 20 Mg PO DAILY Mucinex (Guaifenesin) 600 Mg Tablet.er 600 Mg PO BID 14 Days Nystop (Nystatin) 60 Gm Powder 1 Rea TP QID 30 Days Cetirizine Hcl 10 Mg Tablet 10 Mg PO DAILY Montelukast Sodium Tablet (Montelukast Sodium) 10 Mg Tablet 10 Mg PO QHS Reported Tylenol (Acetaminophen) 325 Mg Tablet 650 Mg PO TID PRN PRN Aspir 81 (Aspirin) 81 Mg Tablet.dr 1 Tab PO DAILY Iron Supplement (Ferrous Sulfate) 325 Mg Tablet 1 Tab PO DAILY Advair 250-50 Diskus (Fluticasone/Salmeterol) 1 Each Disk.w.dev 1 Puff IH BID Duoneb 0.5-3(2.5) Mg/3 Ml (Albuterol/Ipratropium) 3 Ml Ampul.neb 3 Ml IH Q4HRS PRN Pravastatin Sodium 10 Mg Tablet 1 Tab PO DAILY Carvedilol 6.25 Mg Tablet 1 Tab PO BID Vitals/I & O Vital Sign - Last 24 Hours 06/04/18 06/04/18 06/04/18 06/04/18 11:00 11:37 15:00 16:09 Temp 98.6 97.8 98.6 97.8 Pulse 70 76 Resp 18 18 B/P (MAP) 138/70 (92) 145/73 (97) Pulse Ox 99 99 99 O2 Delivery Room Air Nasal Cannula 2L Nasal Cannula O2 Flow Rate 4.0 4.0 06/04/18 06/04/18 06/04/18 06/04/18 17:06 19:00 20:00 20:35 Temp 97.6 97.6 Pulse 76 74 Resp 19 B/P (MAP) 145/73 133/76 (95) Pulse Ox 98 O2 Delivery Nasal Cannula Nasal Cannula Nasal Cannula O2 Flow Rate 2.0 4.0 4.0 06/04/18 06/04/18 06/05/18 06/05/18 20:35 22:48 02:54 06:49 Temp 97.5 97.6 97.7 97.5 97.6 97.7 Pulse 76 72 70 Resp 16 15 18 B/P (MAP) 141/61 (87) 119/54 (75) 136/80 (98) Pulse Ox 97 95 96 O2 Delivery Nasal Cannula Nasal Cannula Nasal Cannula Nasal Cannula O2 Flow Rate 4.0 2.0 2.0 2.0 06/05/18 06/05/18 07:43 09:52 Pulse 70 B/P (MAP) 136/80 Pulse Ox 99 O2 Delivery Nasal Cannula O2 Flow Rate 4.0 Intake and Output 06/04/18 06/04/18 06/05/18 15:00 23:00 07:00 Intake Total 600 ml 1850 ml 550 ml Output Total 400 ml Balance 600 ml 1850 ml 150 ml TESS LOZANO MD Jun 05, 2018 10:53
[2018-06-05 11:00] VITALS: BP 106/52
[2018-06-05] MEDS ORDERED: VANCOMYCIN 1 GM in IV NORMAL SALINE 250ML 250 ML IV SCH (11:30)
--- NOTE | 2018-06-05 14:03 | PDOC ---
PULMONARY PROGRESS NOTES Subjective mild cough , no soa Vitals Vital Signs Date Time Temp Pulse Resp B/P (MAP) Pulse Ox O2 Delivery O2 Flow Rate FiO2 06/05/18 11:35 Nasal Cannula 4.0 06/05/18 11:00 97.7 70 12 106/52 (70) 98 97.7 General: Alert, No acute distress Lungs: Other (decrease bases) Cardiovascular: S1, S2 Abdomen: Soft, Non-tender Neuro Exam: Alert Extremities: No Edema Skin: Warm Labs Laboratory Tests Test 06/04/18 08:30 06/05/18 06:50 White Blood Count 13.9 x10^3/uL (4.0-11.0) Red Blood Count 3.68 x10^6/uL (3.50-5.40) Hemoglobin 9.9 g/dL (12.0-15.5) Hematocrit 30.6 % (36.0-47.0) Mean Corpuscular Volume 83 fL (79-100) Mean Corpuscular Hemoglobin 27 pg (25-35) Mean Corpuscular Hemoglobin Concent 32 g/dL (31-37) Red Cell Distribution Width 16.1 % (11.5-14.5) Platelet Count 226 x10^3/uL (140-400) Neutrophils (%) (Auto) 83 % (31-73) Lymphocytes (%) (Auto) 11 % (24-48) Monocytes (%) (Auto) 6 % (0-9) Eosinophils (%) (Auto) 0 % (0-3) Basophils (%) (Auto) 0 % (0-3) Neutrophils # (Auto) 11.5 x10^3uL (1.8-7.7) Lymphocytes # (Auto) 1.5 x10^3/uL (1.0-4.8) Monocytes # (Auto) 0.8 x10^3/uL (0.0-1.1) Eosinophils # (Auto) 0.1 x10^3/uL (0.0-0.7) Basophils # (Auto) 0.0 x10^3/uL (0.0-0.2) Sodium Level 137 mmol/L (136-145) Potassium Level 4.3 mmol/L (3.5-5.1) Chloride Level 100 mmol/L (98-107) Carbon Dioxide Level 31 mmol/L (21-32) Anion Gap 6 (6-14) Blood Urea Nitrogen 25 mg/dL (7-20) Creatinine 1.0 mg/dL (0.6-1.0) 1.2 mg/dL (0.6-1.0) Estimated GFR (Cockcroft-Gault) 53.3 43.2 Glucose Level 118 mg/dL (70-99) Calcium Level 8.2 mg/dL (8.5-10.1) Laboratory Tests Test 06/05/18 06:50 Creatinine 1.2 mg/dL (0.6-1.0) Estimated GFR (Cockcroft-Gault) 43.2 Medications Active Scripts Medications Dose Route/Sig Max Daily Dose Days Date Category Prednisone 20 Mg Tablet 40 Mg PO DAILY 05/21/18 Rx Levaquin (Levofloxacin) 250 Mg Tablet 250 Mg PO DAILY06 2 05/21/18 Rx Furosemide 20 Mg Tablet 20 Mg PO DAILY 02/21/18 Rx Mucinex (Guaifenesin) 600 Mg Tablet.er 600 Mg PO BID 14 01/26/18 Rx Nystop (Nystatin) 60 Gm Powder 1 Rea TP QID 30 01/02/18 Rx Cetirizine Hcl 10 Mg Tablet 10 Mg PO DAILY 01/13/17 Rx Montelukast Sodium Tablet (Montelukast Sodium) 10 Mg Tablet 10 Mg PO QHS 12/19/16 Rx Tylenol (Acetaminophen) 325 Mg Tablet 650 Mg PO TID PRN PRN 04/11/16 Reported Aspir 81 (Aspirin) 81 Mg Tablet.dr 1 Tab PO DAILY 04/11/16 Reported Iron Supplement (Ferrous Sulfate) 325 Mg Tablet 1 Tab PO DAILY 11/10/15 Reported Advair 250-50 Diskus (Fluticasone/Salmeterol) 1 Each Disk.w.dev 1 Puff IH BID 05/06/15 Reported Duoneb 0.5-3(2.5) Mg/3 Ml (Albuterol/Ipratropium) 3 Ml Ampul.neb 3 Ml IH Q4HRS PRN 05/06/15 Reported Pravastatin Sodium 10 Mg Tablet 1 Tab PO DAILY 09/16/14 Reported Carvedilol 6.25 Mg Tablet 1 Tab PO BID 09/16/[address] CHEST 1. No CT evidence of central pulmonary emboli. 2. Emphysema with pleural-parenchymal scarring 3. 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 4. Bibasilar bronchiectasis, worse on the right, with moderate associated right lower lobe infiltrate suggesting pneumonia. 5. 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 Impression . 1. Reieq-it-dbrtcuh respiratory failure secondary to acute exacerbation of chronic obstructive pulmonary disease, pneumonia/ Basal bronchiectasis 2. Abnormal ct chest with RLL pneumonia/ underlying bronchiectasis 3. Acute exacerbation of chronic obstructive pulmonary disease. 4. Acute bronchitis. 5. High probability V/Q scan by report. appears to be matched defects. NO pulmonary embolism by CTA 6. Ex-smoker. 7. Hypertension. 8. Diabetes mellitus. Plan . 1. Titrate FiO2 to keep O2 saturation 92%. 2. Neg lower extremity venous Doppler. 3. broaden Abx, Zosyn added 06/04 4. Lovenox for DVT prophylaxis. 5. Protonix for stress ulcer prophylaxis. 6. Solu-Medrol taper 7. Oxygen at baseline 4 litres SHERON URENA MD Jun 05, 2018 14:03
[2018-06-05] MEDS: VANCOMYCIN PER PHARMACY MC PRN ×2 (14:33→14:36)
[2018-06-05 15:39] VITALS: BP 156/98
[2018-06-05 19:00] VITALS: BP 121/64
[2018-06-05] MEDS: MONTELUKAST SODIUM 10 MG TABLET. PO SCH (20:06)
[2018-06-05] MEDS: ATORVASTATIN CALCIUM 10 MG TABLET. PO SCH (20:06)
[2018-06-05 23:00] VITALS: BP 122/54
[2018-06-06 03:00] VITALS: BP 122/53
[2018-06-06] MEDS: PIPERACILLIN/TAZOBACTAM 3.375 GM in IV NORMAL SALINE 50ML 50 ML IV SCH (05:26)
[2018-06-06 05:35] LABS: CREATININE 1.3 mg/dL (0.6-1.0); GFR 39.4
[2018-06-06 07:00] VITALS: BP 144/70
[2018-06-06] MEDS: BUDESONIDE 0.5 MG/2 ML NEBU. NEB SCH (07:20)
[2018-06-06] MEDS: IPRATRPIUM/ALBUTEROL 0.5/2.5MG 3 ML NEBU. NEB SCH ×2 (07:20→12:01)
[2018-06-06] MEDS: ENOXAPARIN 40 MG/0.4 ML SYRINGE. SQ SCH (08:03)
[2018-06-06] MEDS: methylPREDNISolone SOD SUCC PF 40 MG/ML VIAL. IV SCH (08:03)
[2018-06-06] MEDS: ASPIRIN ENTERIC COATED 81 MG TABLET.DR. PO SCH (08:06)
[2018-06-06] MEDS: PANTOPRAZOLE 40 MG TABLET.DR. PO SCH (08:06)
[2018-06-06] MEDS: BENZONATATE 100 MG CAPSULE. PO SCH (08:06)
[2018-06-06] MEDS: LACTOBACILLUS RHAMNOSUS GG 1 CAPSULE. PO SCH (08:07)
[2018-06-06] MEDS: FUROSEMIDE 20 MG TABLET PO SCH (08:07)
[2018-06-06] MEDS: FERROUS SULFATE 325 MG TABLET. PO SCH (08:07)
[2018-06-06] MEDS: CETIRIZINE HCL 10 MG TABLET. PO SCH (08:07)
[2018-06-06] MEDS: CARVEDILOL 6.25 MG TABLET. PO SCH (08:07)
[2018-06-06] MEDS: NYSTATIN TOPICAL POWDER 15GM BOTTLE. TP SCH (08:08)
--- NOTE | 2018-06-06 09:37 | PDOC ---
Infectious Disease Note Subjective: Subjective Pt says feels the same back to baseline on o2 at 4l /nc cont to have cough but not worse eager to go home as she has an event to attend ROS: ROS Negative except for above. Vital Signs: Vital Signs Vital Signs Date Time Temp Pulse Resp B/P (MAP) Pulse Ox O2 Delivery O2 Flow Rate FiO2 06/06/18 08:07 77 122/53 06/06/18 07:20 98 Nasal Cannula 4.0 06/06/18 07:00 97.9 18 97.9 Physical Exam: PHYSICAL EXAM GENERAL: Alert, oriented, sitting in chair, in no acute distress, cooperative. HEENT: Normocephalic, atraumatic, anicteric. No thrush. Oral mucosa moist. No exudate. NECK: Supple. No JVD. LUNGS: Decreased breath sounds at the bases. No wheezing. HEART: S1, S2. ABDOMEN: Soft, nontender. No rebound. EXTREMITIES: No edema, no cyanosis. MUSCULOSKELETAL: changes of DJD. No joint swelling. No replacement noted. NEUROLOGIC: Alert, oriented times 3. SKIN: Warm, dry, no generalized rash. PSYCHIATRIC: Cooperative, appropriate mood and affect. Medications: Inpatient Meds: Current Medications Medications (Trade) Dose Ordered Sig/Eva Start Time Stop Time Status Last Admin Dose Admin Acetaminophen (Tylenol) 650 mg TID PRN PRN 06/03/18 09:15 06/03/18 10:41 650 MG Albuterol Sulfate (Ventolin Neb Soln) 2.5 mg PRN Q4HRS PRN 06/03/18 09:15 Albuterol/ Ipratropium (Duoneb) 3 ml Q4HRS PRN 06/03/18 09:15 06/03/18 09:15 DC Aspirin (Ecotrin) 81 mg DAILY 06/03/18 10:00 06/06/18 08:06 81 MG Atorvastatin Calcium (Lipitor) 5 mg QHS 06/03/18 21:00 06/05/18 20:06 5 MG Benzonatate (Tessalon Perle) 100 mg [id number] 06/03/18 09:30 06/06/18 08:06 100 MG Budesonide (Pulmicort) 0.5 mg RTBID 06/03/18 08:00 06/06/18 07:20 0.5 MG Carvedilol (Coreg) 6.25 mg BIDWMEALS 06/03/18 09:30 06/06/18 08:07 6.25 MG Ceftriaxone Sodium 1 gm/ Dextrose 50 ml @ 100 mls/hr Q24H 06/04/18 10:45 UNV Ceftriaxone Sodium (Rocephin) 1 gm Q24H 06/04/18 12:00 06/04/18 12:00 DC Cetirizine HCl (ZyrTEC) 10 mg DAILY 06/03/18 10:00 06/06/18 08:07 10 MG Enoxaparin Sodium (Lovenox 40mg Syringe) 40 mg Q24H 06/03/18 08:00 06/06/18 08:03 40 MG Ferrous Sulfate (Feosol) 325 mg DAILY 06/03/18 10:00 06/06/18 08:07 325 MG Furosemide (Lasix) 20 mg DAILY 06/03/18 10:00 06/06/18 08:07 20 MG Guaifenesin (Mucinex) 600 mg BID 06/03/18 21:00 06/06/18 08:07 600 MG Guaifenesin (Robitussin Dm) 10 ml PRN Q6HRS PRN 06/03/18 09:15 06/03/18 10:39 10 ML Influenza Virus Vaccine (Afluria Trivalent 0601-3142 Syringe) 0.5 ml ONCE ONCE 06/03/18 09:00 06/03/18 09:01 DC 06/06/18 08:06 0.5 ML Info (CONTRAST GIVEN -- Rx MONITORING) 1 each PRN DAILY PRN 06/03/18 11:00 06/05/18 10:59 DC Info (Do NOT chart on this placeholder) 0.5 each 1X ONCE 06/03/18 21:00 06/03/18 21:01 UNV Iohexol (Omnipaque 300 Mg/ml) 60 ml 1X ONCE 06/03/18 11:00 06/03/18 11:01 DC 06/03/18 11:27 60 ML Lactobacillus Rhamnosus (Culturelle) 1 cap BID 06/03/18 09:00 06/06/18 08:07 1 CAP Methylprednisolone Sodium Succinate (SOLU-Medrol 40MG VIAL) 40 mg DAILY 06/03/18 09:00 06/06/18 08:03 40 MG Methylprednisolone Sodium Succinate (SOLU-Medrol 125MG VIAL) 125 mg 1X ONCE 06/02/18 15:45 06/02/18 15:46 DC 06/02/18 18:20 125 MG Montelukast Sodium (Singulair) 10 mg QHS 06/03/18 21:00 06/05/18 20:06 10 MG Nystatin (Nystop) 1 jaison QID 06/03/18 13:00 06/06/18 08:08 1 JAISON Pantoprazole Sodium (Protonix) 40 mg DAILYAC 06/03/18 08:00 06/06/18 08:06 40 MG Piperacillin Sod/ Tazobactam Sod (Zosyn Per Pharmacy) 1 each PRN DAILY PRN 06/04/18 12:00 Piperacillin Sod/ Tazobactam Sod 3.375 gm/Sodium Chloride 50 ml @ 100 mls/hr Q6HRS 06/04/18 12:30 06/06/18 05:26 100 MLS/HR Vancomycin HCl (Vanco Per Pharmacy) 1 each PRN DAILY PRN 06/04/18 09:45 06/05/18 14:36 1 EACH Vancomycin HCl (Vancomycin Trough Level) 1 each 1X ONCE 06/06/18 17:00 06/06/18 17:01 Vancomycin HCl 1.75 gm/Sodium Chloride 500 ml @ 250 mls/hr 1X ONCE 06/04/18 10:00 06/04/18 11:59 DC 06/04/18 11:34 250 MLS/HR Vancomycin HCl 1 gm/Sodium Chloride 250 ml @ 250 mls/hr Q24H 06/05/18 11:30 06/05/18 17:15 250 MLS/HR Labs: Lab Laboratory Tests Test 06/06/18 04:05 Creatinine 1.3 mg/dL (0.6-1.0) Estimated GFR (Cockcroft-Gault) 39.4 Micro BC GPC,GPR Objective: Assessment: 1. GPC and GPR bacteremia,likely contaminant. ID and VICENTE still pending at this time. 2. Acute on chronic respiratory failure secondary to acute exacerbation of chronic obstructive pulmonary disease, pneumonia, bronchiectasis on CTA. improving 3. Right lower lobe pneumonia with underlying bronchiectasis. 4. High probability VQ scan with no evidence of PE, on CTA. 5. Ex-smoker. 6. Diabetes. 7. Hypertension. 8. Anemia. 9.allergy to doxycycline Plan: Plan of Care DC IV vancomycin and IV Zosyn transition to po Augmentin when ready for dc home for 10 days USNG NORTON MD Jun 06, 2018 09:37
--- NOTE | 2018-06-06 09:53 | PDOC ---
PULMONARY PROGRESS NOTES Subjective mild cough , no soa Vitals Vital Signs Date Time Temp Pulse Resp B/P (MAP) Pulse Ox O2 Delivery O2 Flow Rate FiO2 06/06/18 08:07 77 122/53 06/06/18 07:20 98 Nasal Cannula 4.0 06/06/18 07:00 97.9 18 97.9 General: Alert, No acute distress Lungs: Other (decrease bases) Cardiovascular: S1, S2 Abdomen: Soft, Non-tender Neuro Exam: Alert Extremities: No Edema Skin: Warm Labs Laboratory Tests Test 06/05/18 06:50 06/06/18 04:05 Creatinine 1.2 mg/dL (0.6-1.0) 1.3 mg/dL (0.6-1.0) Estimated GFR (Cockcroft-Gault) 43.2 39.4 Laboratory Tests Test 06/06/18 04:05 Creatinine 1.3 mg/dL (0.6-1.0) Estimated GFR (Cockcroft-Gault) 39.4 Medications Active Scripts Medications Dose Route/Sig Max Daily Dose Days Date Category Prednisone 20 Mg Tablet 40 Mg PO DAILY 05/21/18 Rx Levaquin (Levofloxacin) 250 Mg Tablet 250 Mg PO DAILY06 2 05/21/18 Rx Furosemide 20 Mg Tablet 20 Mg PO DAILY 02/21/18 Rx Mucinex (Guaifenesin) 600 Mg Tablet.er 600 Mg PO BID 14 01/26/18 Rx Nystop (Nystatin) 60 Gm Powder 1 Rea TP QID 30 01/02/18 Rx Cetirizine Hcl 10 Mg Tablet 10 Mg PO DAILY 01/13/17 Rx Montelukast Sodium Tablet (Montelukast Sodium) 10 Mg Tablet 10 Mg PO QHS 12/19/16 Rx Tylenol (Acetaminophen) 325 Mg Tablet 650 Mg PO TID PRN PRN 04/11/16 Reported Aspir 81 (Aspirin) 81 Mg Tablet.dr 1 Tab PO DAILY 04/11/16 Reported Iron Supplement (Ferrous Sulfate) 325 Mg Tablet 1 Tab PO DAILY 11/10/15 Reported Advair 250-50 Diskus (Fluticasone/Salmeterol) 1 Each Disk.w.dev 1 Puff IH BID 05/06/15 Reported Duoneb 0.5-3(2.5) Mg/3 Ml (Albuterol/Ipratropium) 3 Ml Ampul.neb 3 Ml IH Q4HRS PRN 05/06/15 Reported Pravastatin Sodium 10 Mg Tablet 1 Tab PO DAILY 09/16/14 Reported Carvedilol 6.25 Mg Tablet 1 Tab PO BID 09/16/[address] CHEST 1. No CT evidence of central pulmonary emboli. 2. Emphysema with pleural-parenchymal scarring 3. 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 4. Bibasilar bronchiectasis, worse on the right, with moderate associated right lower lobe infiltrate suggesting pneumonia. 5. 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 Impression . 1. [id number]-[id number] respiratory failure secondary to acute exacerbation of chronic obstructive pulmonary disease, pneumonia/ Basal bronchiectasis 2. Abnormal ct chest with RLL pneumonia/ underlying bronchiectasis 3. Acute exacerbation of chronic obstructive pulmonary disease. 4. Acute bronchitis. 5. High probability V/Q scan by report. appears to be matched defects. NO pulmonary embolism by CTA 6. Ex-smoker. 7. Hypertension. 8. Diabetes mellitus. 9. BC diptheroids Plan . 1. Titrate FiO2 to keep O2 saturation 92%. 2. Neg lower extremity venous Doppler. 3. Abx,per ID 4. Lovenox for DVT prophylaxis. 5. Protonix for stress ulcer prophylaxis. 6. Solu-Medrol taper. can change to Po 7. Oxygen at baseline 4 litres 8. BC likely contamination dc plans per ID SHERON URENA MD Jun 06, 2018 09:53
--- NOTE | 2018-06-06 10:39 | DISCH ---
DISCHARGE WITH HOME HEALTH DISCHARGE INFORMATION: Discharge Date: Jun 06, 2018 Final Diagnosis: Problems Medical Problems: (1) Anemia Status: Acute (2) COPD exacerbation Status: Acute (3) Hypoxia Status: Acute (4) Pneumonia Status: Acute Condition on Discharge: Stable CODE STATUS: Code Status: Full HOME HEALTH: Face to Face: I certify this patient is under my care and that I, or a nurse practitioner or physician's outreach assistant working with me, had a face to face encounter that meets the physician face to face encounter requirements with this patient on []. Physical Therapy For: Evalulation/Treatment Occupational Therapy For: Evaluation/Treatment Home Health Aide For: Self-care POST DISCHARGE ORDERS: Activity Instructions for Disc: Activity as tolerated Weight Bearing Status after Di: As tolerated DIET AFTER DISCHARGE: Cardiac CHECKS AFTER DISCHARGE: Checks after discharge: Check blood press - daily, Weigh Yourself Daily FOLLOW-UP: Follow up with: Dr. Shipley TREATMENT/EQUIPMENT ORDERS: Adaptive Equipment Issued: Walker Discharge Respiratory Equipmen: Oxygen CERTIFICATION STATEMENT: Certification Statement: Certification Statement: Based on the above finding, I certify that this patient is confined to the home and needs intermittent mcc care, physical therapy and/or speech therapy, or continues to need occupational therapy.~ This patient is under my care, and I have initiated the establishment of the plan of care.~ This patient will be followed by myself or a community physician who will periodically review the plan of care. Home Meds Active Scripts Amoxicillin/Potassium Clav (AUGMENTIN 875-125 TABLET) 1 Each Tablet, 1 TAB PO BID, #12 TAB Prov:LUKAS DWYER MD 06/06/18 Prednisone (PREDNISONE ) 10 Mg Tablet, 10 MG PO UD, #28 TAB 0 Refills Take 4 tablets by mouth daily for 4 days, then take 3 tablets by mouth daily for 2 days, then take 2 tablets by mouth daily for 2 days, then take 1 tablets by mouth daily for 2 days, then stop. Prov:LUKAS DWYER MD 06/06/18 Prednisone (PREDNISONE) 20 Mg Tablet, 40 MG PO DAILY, #15 TAB Prov:MILAN LUNA MD 05/21/18 Levofloxacin (LEVAQUIN) 250 Mg Tablet, 250 MG PO DAILY06 for 2 Days, #2 TAB Prov:MILAN LUNA MD 05/21/18 Furosemide (FUROSEMIDE) 20 Mg Tablet, 20 MG PO DAILY, #30 TAB Prov:LUKAS DWYER MD 02/21/18 Guaifenesin (MUCINEX) 600 Mg Tablet.er, 600 MG PO BID for 14 Days, #28 TAB.SR Prov:BRIAN GIPSON MD 01/26/18 Nystatin (NYSTOP) 60 Gm Powder, 1 LETICIA TP QID for 30 Days, MISC Prov:TESS LOZANO MD 01/02/18 Cetirizine Hcl (CETIRIZINE HCL) 10 Mg Tablet, 10 MG PO DAILY, #30 TAB Prov:COLLETTE FALL MD 01/13/17 Montelukast Sodium (MONTELUKAST SODIUM TABLET) 10 Mg Tablet, 10 MG PO QHS, #30 TAB-CAP Prov:MILAN LUNA MD 12/19/16 Reported Medications Acetaminophen (TYLENOL) 325 Mg Tablet, 650 MG PO TID PRN PRN for PAIN 04/11/16 Aspirin (ASPIR 81) 81 Mg Tablet.dr, 1 TAB PO DAILY, #30 TAB 5 Refills 04/11/16 Ferrous Sulfate (IRON SUPPLEMENT) 325 Mg Tablet, 1 TAB PO DAILY, #30 TAB 10 Refills 11/10/15 Fluticasone/Salmeterol (ADVAIR 250-50 DISKUS) 1 Each Disk.w.dev, 1 PUFF IH BID, #3 INHALER 3 Refills 05/06/15 Ipratropium/Albuterol Sulfate (DUONEB 0.5-3(2.5) MG/3 ML) 3 Ml Ampul.neb, 3 ML IH Q4HRS PRN for CONGESTION 05/06/15 Pravastatin Sodium (PRAVASTATIN SODIUM) 10 Mg Tablet, 1 TAB PO DAILY, #30 TAB 5 Refills 09/16/14 Carvedilol (CARVEDILOL) 6.25 Mg Tablet, 1 TAB PO BID, #180 TAB 1 Refill 09/16/14 LUKAS DWYER MD Jun 06, 2018 10:39
[2018-06-06] MEDS ORDERED: AMOX1TAB61 PO (10:41)
[2018-06-06] MEDS ORDERED: PRED-220 PO (10:41)
[2018-06-06 11:00] VITALS: BP 156/76
== END 2018-06-06 13:00 | disposition home health service (06) | DRG 177 ==
LOC: ER 15:30 → 5 SOUTH 16:34
PROVIDERS: ADMIT Internal Medicine; ATTEND Internal Medicine
DX: J15.6 Pneumonia due to other Gram-negative bacteria (principal); I50.43 Acute on chronic combined systolic (congestive) and diastolic (congestive) heart failure; E43 Unspecified severe protein-calorie malnutrition; J96.21 Acute and chronic respiratory failure with hypoxia; J44.1 Chronic obstructive pulmonary disease with (acute) exacerbation; J44.0 Chronic obstructive pulmonary disease with (acute) lower respiratory infection; R64 Cachexia; R78.81 Bacteremia; J18.9 Pneumonia, unspecified organism; I11.0 Hypertensive heart disease with heart failure; E78.5 Hyperlipidemia, unspecified; E11.9 Type 2 diabetes mellitus without complications; Z60.2 Problems related to living alone; J20.9 Acute bronchitis, unspecified; D64.9 Anemia, unspecified; E78.00 Pure hypercholesterolemia, unspecified; M19.90 Unspecified osteoarthritis, unspecified site; Z77.090 Contact with and (suspected) exposure to asbestos; Z99.81 Dependence on supplemental oxygen; Z83.3 Family history of diabetes mellitus; Z87.891 Personal history of nicotine dependence; Z88.1 Allergy status to other antibiotic agents; Z82.49 Family history of ischemic heart disease and other diseases of the circulatory system; Z68.29 Body mass index [BMI] 29.0-29.9, adult
CPT/HCPCS: 36415; 71045; 71275; 78582; 80048; 80053; 82550; 82565; 82805; 83605; 83735; 83880; 84484; 85025; 85379; 85610; 87040; 87205; 87641; 90471; 90756; 93005; 93970; 94640; 94760; 96365; 96374; 96375; A9540; A9558; J0690; J0696; J1650; J2543; J2920; J2930; J3370; J7040; J7050; J7620; J7626; Q9967; 97116; 97530; 97535; 99285-25; J7030; Q2035

== ENCOUNTER 2018-06-18 12:40 | Inpatient (IN) | payer MEDICARE, OTHER ==
[~2018-06-18] VITALS: Ht 154.9 cm; Wt 75.4 kg
[~2018-06-18 12:40] MED LIST changes: +ACET-704 PO; +AMOX1TAB61 PO; +ATOR10TA PO; +LEVO500T59 PO
--- NOTE | 2018-06-18 13:13 | PHYS DOC ---
Past Medical History Past Medical History: COPD Past Surgical History: Cholecystectomy Alcohol Use: None Drug Use: None Adult General Chief Complaint Chief Complaint: SHORTNESS OF BREATH HPI HPI Patient is a 78 year old female with history of COPD who presents today complaining of shortness of breath that began today. Patient denies any fever. She states she has a cough that is chronic. Denies any chest pain. She states she is not a smoker any more. Review of Systems Review of Systems Constitutional: Denies fever or chills [] Eyes: Denies change in visual acuity, redness, or eye pain [] HENT: Denies nasal congestion or sore throat [] Respiratory: Reports cough and shortness of breath [] Cardiovascular: No additional information not addressed in HPI [] GI: Denies abdominal pain, nausea, vomiting, bloody stools or diarrhea [] : Denies dysuria or hematuria [] Musculoskeletal: Denies back pain or joint pain [] Integument: Denies rash or skin lesions [] Neurologic: Denies headache, focal weakness or sensory changes [] All other systems were reviewed and found to be within normal limits, except as documented in this note. Current Medications Current Medications Current Medications Medications (Trade) Dose Ordered Sig/Eva Start Time Stop Time Status Last Admin Dose Admin Albuterol/ Ipratropium (Duoneb) 3 ml 1X ONCE 06/18/18 13:15 06/18/18 13:16 DC 06/18/18 13:32 3 ML Methylprednisolone Sodium Succinate (SOLU-Medrol 125MG VIAL) 125 mg 1X ONCE 06/18/18 13:15 06/18/18 13:16 DC 06/18/18 13:26 125 MG Allergies Allergies Allergies Coded Allergies Type Severity Reaction Last Updated Verified doxycycline Allergy Intermediate Rash 02/16/18 Yes I S O L A T I O N *CONTACT* Allergy Unknown 12/12/16 Yes Physical Exam Physical Exam Constitutional: Well developed, well nourished, no acute distress, non-toxic appearance. [] HENT: Normocephalic, atraumatic, bilateral external ears normal, oropharynx moist, no oral exudates, nose normal. [] Eyes: PERRLA, EOMI, conjunctiva normal, no discharge. [] Neck: Normal range of motion, no tenderness, supple, no stridor. [] Cardiovascular:Heart rate regular rhythm, no murmur [] Lungs & Thorax: Tight chest, barely moving air. On oxygen 4 liters -chronic Abdomen: Bowel sounds normal, soft, no tenderness, no masses, no pulsatile masses. [] Skin: Warm, dry, no erythema, no rash. [] Back: No tenderness, no CVA tenderness. [] Extremities: No tenderness, no cyanosis, no clubbing, ROM intact, no edema. [] Neurologic: Alert and oriented X 3, normal motor function, normal sensory function, no focal deficits noted. [] Psychologic: Affect normal, judgement normal, mood normal. [] Current Patient Data Vital Signs Vital Signs Date Time Temp Pulse Resp B/P (MAP) Pulse Ox O2 Delivery O2 Flow Rate FiO2 06/18/18 14:50 72 21 124/60 (81) 97 Nasal Cannula 4.0 06/18/18 12:55 97.9 97.9 Lab Values Laboratory Tests Test 06/18/18 13:15 06/18/18 14:02 White Blood Count 9.1 x10^3/uL (4.0-11.0) Red Blood Count 3.52 x10^6/uL (3.50-5.40) Hemoglobin 9.7 g/dL (12.0-15.5) L Hematocrit 29.1 % (36.0-47.0) L Mean Corpuscular Volume 83 fL (79-100) Mean Corpuscular Hemoglobin 28 pg (25-35) Mean Corpuscular Hemoglobin Concent 33 g/dL (31-37) Red Cell Distribution Width 16.9 % (11.5-14.5) H Platelet Count 185 x10^3/uL (140-400) Neutrophils (%) (Auto) 67 % (31-73) Lymphocytes (%) (Auto) 21 % (24-48) L Monocytes (%) (Auto) 8 % (0-9) Eosinophils (%) (Auto) 3 % (0-3) Basophils (%) (Auto) 1 % (0-3) Neutrophils # (Auto) 6.1 x10^3uL (1.8-7.7) Lymphocytes # (Auto) 1.9 x10^3/uL (1.0-4.8) Monocytes # (Auto) 0.7 x10^3/uL (0.0-1.1) Eosinophils # (Auto) 0.3 x10^3/uL (0.0-0.7) Basophils # (Auto) 0.1 x10^3/uL (0.0-0.2) Segmented Neutrophils % 69 % (35-66) H Band Neutrophils % 3 % (0-9) Lymphocytes % 21 % (24-48) L Monocytes % 2 % (0-10) Eosinophils % 4 % (0-5) Myelocytes % 1 % (0-0) H Platelet Estimate Adequate (ADEQUATE) Sodium Level 144 mmol/L (136-145) Potassium Level 3.8 mmol/L (3.5-5.1) Chloride Level 105 mmol/L (98-107) Carbon Dioxide Level 29 mmol/L (21-32) Anion Gap 10 (6-14) Blood Urea Nitrogen 32 mg/dL (7-20) H Creatinine 1.0 mg/dL (0.6-1.0) Estimated GFR (Cockcroft-Gault) 53.3 BUN/Creatinine Ratio 32 (6-20) H Glucose Level 130 mg/dL (70-99) H Calcium Level 8.3 mg/dL (8.5-10.1) L Magnesium Level 2.0 mg/dL (1.8-2.4) Total Bilirubin 0.3 mg/dL (0.2-1.0) Aspartate Amino Transferase (AST) 15 U/L (15-37) Alanine Aminotransferase (ALT) 23 U/L (14-59) Alkaline Phosphatase 71 U/L (46-116) Troponin I Quantitative < 0.017 ng/mL (0.000-0.055) JV-Ssa-Q-Type Natriuretic Peptide 704 pg/mL (0-449) H Total Protein 6.0 g/dL (6.4-8.2) L Albumin 2.5 g/dL (3.4-5.0) L Albumin/Globulin Ratio 0.7 (1.0-1.7) L Thyroid Stimulating Hormone (TSH) 6.948 uIU/mL (0.358-3.74) H Urine Collection Type Unknown Urine Color Yellow Urine Clarity Clear Urine pH 5.5 Urine Specific [place] 1.015 Urine Protein Negative mg/dL (NEG-TRACE) Urine Glucose (UA) Negative mg/dL (NEG) Urine Ketones (Stick) Negative mg/dL (NEG) Urine Blood Negative (NEG) Urine Nitrite Negative (NEG) Urine Bilirubin Negative (NEG) Urine Urobilinogen Dipstick 0.2 mg/dL (0.2 mg/dL) Urine Leukocyte Esterase Trace (NEG) Urine RBC Occ /HPF (0-2) Urine WBC 1-4 /HPF (0-4) Urine Squamous Epithelial Cells Mod /LPF Urine Bacteria 0 /HPF (0-FEW) Laboratory Tests 06/18/18 13:15 Laboratory Tests 06/18/18 13:15 Microbiology 06/18/18 Urine Culture - Final, Complete 06/18/18 Urine Culture Result 1 (VICENTE) - Final, Complete EKG EKG 13:[address] Silvestre sinus rhythm HR 79 no STEMI[] Radiology/Procedures Radiology/Procedures []PROCEDURE: PORTABLE CHEST 1V EXAM: Chest, single view. HISTORY: Shortness of air. COMPARISON: CT dated 06/03/2018. FINDINGS: A frontal view of the chest is obtained. There is mild pulmonary congestion superimposed on chronic interstitial changes. There is bilateral basilar atelectasis. There is calcified bilateral pleural plaque. There is mild cardiomegaly and right hilar enlargement. There is mild emphysema. There is chronic deformity of the right shoulder. IMPRESSION: 1. Mild pulmonary congestion superimposed on chronic interstitial lung disease and lower lobe atelectasis. 2. Mild cardiomegaly and stable right hilar enlargement. Electronically signed by: Maribel Roque MD (06/18/2018 1:32 PM) [facility] DICTATED and SIGNED BY: MARIBEL ROQUE MD DATE: 06/18/18 3699 Course & Med Decision Making Course & Med Decision Making Pertinent Labs and Imaging studies reviewed. (See chart for details) This is a 78-year-old female patient with history of COPD presenting today with shortness of breath times one day. Patient's labs are negative for any acute findings, EKG and chest x-ray negative for any acute findings. Patient was given a DuoNeb treatment. Also given Solu-Medrol. Upon reexamination, patient states she feels better but not comfortable to go home by herself. Spoke with Dr. Dwyer who accepted patient for admission. Dragon Disclaimer Dragon Disclaimer This electronic medical record was generated, in whole or in part, using a voice recognition dictation system. Departure Departure Impression: Primary Impression: COPD exacerbation Disposition: ADMITTED INPATIENT Condition: STABLE Referrals: AMISHA HARDY MD (PCP) Scripts Prednisone (PREDNISONE ) 10 Mg Tablet 10 MG PO UD, #30 TAB 0 Refills Take 5 tablets by mouth daily for 2 days, then take 4 tablets by mouth daily for 2 days, then take 3 tablets by mouth daily for 2 days, then take 2 tablets by mouth daily for 2 days, then take 1 tablets by mouth daily for 2 days, then stop. Prov: LUKAS DWYER MD 06/21/18 Attending Signature Attending Signature I have reviewed the PA/BABY DOCTOR's note and plan of care. I was available for consultation as needed during the patient's visit in the emergency department. I agree with the clinical impression, plan, and disposition. FREDERIC TINOCO APRN Jun 18, 2018 13:13 HERNAN SILVESTRE DO Jun 24, 2018 16:36
[2018-06-18] MEDS ORDERED: methylPREDNISolone SOD SUCC PF 125 MG/2 ML VIAL. IV ONE (13:15)
[2018-06-18] MEDS ORDERED: IPRATRPIUM/ALBUTEROL 0.5/2.5MG 3 ML NEBU. NEB ONE (13:15)
[2018-06-18 13:23] LABS: BASO # 0.1 x10^3/uL (0.0-0.2); BASO % 1 % (0-3); EOS # 0.3 x10^3/uL (0.0-0.7); EOS % 3 % (0-3); HEMATOCRIT 29.1 % (36.0-47.0); HEMOGLOBIN 9.7 g/dL (12.0-15.5); LYMPH # 1.9 x10^3/uL (1.0-4.8); LYMPH % 21 % (24-48); MEAN CORPUSCULAR HEMOGLOBIN 28 pg (25-35); MEAN CORPUSCULAR HGB CONC 33 g/dL (31-37); MEAN CORPUSCULAR VOLUME 83 fL (79-100); MONO # 0.7 x10^3/uL (0.0-1.1); MONO % 8 % (0-9); NEUT # 6.1 x10^3uL (1.8-7.7); NEUT % 67 % (31-73); PLATELET COUNT 185 x10^3/uL (140-400); RED BLOOD COUNT 3.52 x10^6/uL (3.50-5.40); RED CELL DISTRIBUTION WIDTH 16.9 % (11.5-14.5); WHITE BLOOD COUNT 9.1 x10^3/uL (4.0-11.0)
[2018-06-18 13:33] LABS: CALCIUM 8.3 mg/dL (8.5-10.1); GFR 53.3; POTASSIUM 3.8 mmol/L (3.5-5.1)
--- NOTE | 2018-06-18 13:35 | RAD ---
EXAM: Chest, single view. HISTORY: Shortness of air. COMPARISON: CT dated 06/03/2018. FINDINGS: A frontal view of the chest is obtained. There is mild pulmonary congestion superimposed on chronic interstitial changes. There is bilateral basilar atelectasis. There is calcified bilateral pleural plaque. There is mild cardiomegaly and right hilar enlargement. There is mild emphysema. There is chronic deformity of the right shoulder. IMPRESSION: 1. Mild pulmonary congestion superimposed on chronic interstitial lung disease and lower lobe atelectasis. 2. Mild cardiomegaly and stable right hilar enlargement. Electronically signed by: Maribel Lora MD (06/18/2018 1:32 PM) [place] [id number]
[2018-06-18 13:39] LABS: ALBUMIN 2.5 g/dL (3.4-5.0); ALBUMIN/GLOBULIN RATIO 0.7 (1.0-1.7); TOTAL BILIRUBIN 0.3 mg/dL (0.2-1.0)
--- NOTE | 2018-06-18 14:06 | EKG ---
[facility] [address] [place] [address] Test Date: 2018-06-18 Test Time: 13:19:45 Pat Name: ALKA CASTILLO Department: Room: Gender: F Inspector Wreath: : 1940 Requested By: FREDERIC TINOCO Order Number: [id number] Reading MD: Demian Luong MD Measurements Intervals [place] Rate: 79 P: ID: QRS: 10 QRSD: 76 T: 22 QT: 368 QTc: 423 Interpretive Statements SR Electronically Signed On 06-18-2018 14:10:38 CDT by Demian Luong MD
[2018-06-18 14:30] LABS: BILIRUBIN,URINE NEGATIVE (NEG); CLARITY,URINE CLEAR; COLOR,URINE YELLOW; NITRITE,URINE NEGATIVE (NEG); PH,URINE 5.5; PROTEIN,URINE NEGATIVE (NEG-TRACE); UROBILINOGEN,URINE 0.2 mg/dL (0.2 mg/dL)
[2018-06-18 14:48] LABS: BACTERIA,URINE 0 /HPF (0-FEW); RBC,URINE OCC /HPF (0-2); SQUAMOUS EPITHELIAL CELL,UR MOD /LPF
[2018-06-18 15:49] LABS: % BANDS 3 % (0-9); % EOS 4 % (0-5); % LYMPHS 21 % (24-48); % MONOS 2 % (0-10); % MYELOS 1 % (0-0); % SEGS 69 % (35-66); PLT ESTIMATE ADEQUATE (ADEQUATE)
[2018-06-18] MEDS ORDERED: fentaNYL PF VIAL 100 MCG/2 ML VIAL IV PRN (16:00)
[2018-06-18] MEDS ORDERED: ACETAMINOPHEN 325 MG TABLET. PO PRN (16:00)
[2018-06-18] MEDS ORDERED: ONDANSETRON PF 4 MG/2 ML VIAL. IV PRN (16:00)
--- NOTE | 2018-06-18 16:46 | PDOC1 ---
History and Physical Date of Admission Date of Admission DATE: 06/18/18 TIME: 16:42 History of Present Illness History of Present Illness Ms. Schwartz is a 78 year old female with history of COPD who presents today complaining of shortness of breath, maybe worsened by her anxiety. She gets scared at home alone when she gets a little more short of breath and "doesn't want to wait until it is too late" She has had 2 prior admits in the past 2 weeks for the same. Patient denies any fever, pos cough that is chronic has quit smoking lives alone, has refused SNU recently Past Medical History Pulmonary: COPD CENTRAL NERVOUS SYSTEM: Periperal neuropathy GI: No pertinent hx Heme/Onc: Anemia NOS Hepatobiliary: No pertinent hx Psych: No pertinent hx Musculoskeletal: Osteoarthritis Rheumatologic: No pertinent hx Infectious disease: No pertinent hx Renal/: No pertinent hx Past Surgical History Past Surgical History: Cholecystectomy Family History Family History: Coronary Artery Disease Family History: Parent Social History Smoke: Quit ALCOHOL: none Drugs: None Current Problem List Problem List Problems Medical Problems: (1) COPD exacerbation Status: Acute Current Medications Current Medications Current Medications Albuterol/ Ipratropium (Duoneb) 3 ml 1X ONCE NEB Last administered on at 13:32; Start 06/18/18 at 13:15; Stop 06/18/18 at 13:16; Status DC Methylprednisolone Sodium Succinate (SOLU-Medrol 125MG VIAL) 125 mg 1X ONCE IV Last administered on 06/18/18at 13:26; Start 06/18/18 at 13:15; Stop 06/18/18 at 13:16; Status DC Ondansetron HCl (Zofran) 4 mg PRN Q8HRS PRN IV NAUSEA/VOMITING; Start 06/18/18 at 16:00; Stop 06/19/18 at 15:59 Fentanyl Citrate (Fentanyl 2ml Vial) 50 mcg PRN Q2HR PRN IV PAIN; Start at 16:00; Stop 06/19/18 at 15:59 Acetaminophen (Tylenol) 650 mg PRN Q4HRS PRN PO FEVER; Start 06/18/18 at 16:00 ; Stop 06/19/18 at 15:59 Albuterol/ Ipratropium (Duoneb) 3 ml RTQID NEB ; Start 06/18/18 at 16:00; Stop 06/19/18 at 15:59 Methylprednisolone Sodium Succinate (SOLU-Medrol 125MG VIAL) 60 mg DAILY IV ; Start 06/19/18 at 09:00 Active Scripts Active Levaquin (Levofloxacin) 500 Mg Tablet 1 Tab PO DAILY 7 Days Prednisone (Prednisone) 10 Mg Tablet 10 Mg PO UD Take 4 tablets by mouth daily for 4 days, then take 3 tablets by mouth daily for 2 days, then take 2 tablets by mouth daily for 2 days, then take 1 tablets by mouth daily for 2 days, then stop. Furosemide 20 Mg Tablet 20 Mg PO DAILY Mucinex (Guaifenesin) 600 Mg Tablet.er 600 Mg PO BID 14 Days Nystop (Nystatin) 60 Gm Powder 1 Rea TP QID 30 Days Cetirizine Hcl 10 Mg Tablet 10 Mg PO DAILY Montelukast Sodium Tablet (Montelukast Sodium) 10 Mg Tablet 10 Mg PO QHS Reported Tylenol (Acetaminophen) 325 Mg Tablet 650 Mg PO TID PRN PRN Aspir 81 (Aspirin) 81 Mg Tablet.dr 1 Tab PO DAILY Iron Supplement (Ferrous Sulfate) 325 Mg Tablet 1 Tab PO DAILY Advair 250-50 Diskus (Fluticasone/Salmeterol) 1 Each Disk.w.dev 1 Puff IH BID Duoneb 0.5-3(2.5) Mg/3 Ml (Albuterol/Ipratropium) 3 Ml Ampul.neb 3 Ml IH Q4HRS PRN Pravastatin Sodium 10 Mg Tablet 1 Tab PO DAILY Carvedilol 6.25 Mg Tablet 1 Tab PO BID Allergies Allergies: Coded Allergies: doxycycline (Verified Allergy, Intermediate, Rash, 02/16/18) rash this admit suspected from doxycycline I S O L A T I O N *CONTACT* (Verified Allergy, Unknown, 12/12/16) +MRSA nasal screen 12/09/16 ROS General: YES: Chills, Fatigue, Malaise PSYCHOLOGICAL ROS: YES: Sleep disturbances Eyes: Yes Uses glasses HEENT: No: Heacaches, Visual Changes, Hearing change, Nasal congestion, Nasal discharge, Oral lesions, Sinus pain, Sore Throat, Epistaxis, Sneezing, Snoring, Tinnitus, Vertigo, Vocal changes, Other Respiratory: YES: Cough, Shortness of breath, SOB with excertion, Tachypnea, Wheezing; No: Hemoptysis, Orthopnea, Pleuritic Pain, Sputum Changes, Stridor, Other Cardiovascular: No Chest Pain, No Palpitations, No Orthopnea, No Paroxysmal Noc. Dyspnea, No Edema, No Lt Headedness, No Other Gastrointestinal: Yes Nausea; No Vomiting, No Abdominal Pain, No Diarrhea, No Constipation, No Melena, No Hematochezia, No Other Genitourinary: No Dysuria, No Frequency, No Incontinence, No Hematuria, No Retention, No Discharge, No Urgency, No Pain, No Flank Pain, No Other, No , No , No , No , No , No , No Musculoskeletal: Yes Joint Stiffness; No Gait Disturbance, No Joint Pain, No Joint Swelling, No Muscle Pain, No Muscular Weakness, No Pain In:, No Swelling In:, No Other Neurological: No Behavorial Changes, No Bowel/Bladder ControlChng, No Confusion , No Dizziness, No Gait Disturbance, No Headaches, No Impaired Coord/balance, No Memory Loss, No Numbness/Tingling, No Seizures, No Speech Problems, No Tremors, No Visual Changes, No Weakness, No Other Skin: Yes Dry Skin; No Eczema, No Hair Changes, No Lumps, No Mole Changes, No Mottling, No Nail Changes, No Pruritus, No Rash, No Skin Lesion Changes, No Other, No Acne Physical Exam General: Alert, Oriented X3, Cooperative, mild distress HEENT: Atraumatic, PERRLA, EOMI Lungs: Clear to auscultation, Normal air movement Heart: S1S2, RRR Abdomen: Normal bowel sounds, Soft Extremities: No clubbing, No edema, Normal pulses Skin: No rashes, No significant lesion Neuro: Normal speech, Sensation intact, Cranial nerves 3-12 NL Psych/Mental Status: Mental status NL Vitals Vitals Vital Signs Date Time Temp Pulse Resp B/P (MAP) Pulse Ox O2 Delivery O2 Flow Rate FiO2 06/18/18 13:32 95 Nasal Cannula 4.0 06/18/18 12:55 97.9 71 18 135/63 (87) 97.9 Labs Labs Laboratory Tests Test 06/18/18 13:15 06/18/18 14:02 White Blood Count 9.1 x10^3/uL (4.0-11.0) Red Blood Count 3.52 x10^6/uL (3.50-5.40) Hemoglobin 9.7 g/dL (12.0-15.5) Hematocrit 29.1 % (36.0-47.0) Mean Corpuscular Volume 83 fL (79-100) Mean Corpuscular Hemoglobin 28 pg (25-35) Mean Corpuscular Hemoglobin Concent 33 g/dL (31-37) Red Cell Distribution Width 16.9 % (11.5-14.5) Platelet Count 185 x10^3/uL (140-400) Neutrophils (%) (Auto) 67 % (31-73) Lymphocytes (%) (Auto) 21 % (24-48) Monocytes (%) (Auto) 8 % (0-9) Eosinophils (%) (Auto) 3 % (0-3) Basophils (%) (Auto) 1 % (0-3) Neutrophils # (Auto) 6.1 x10^3uL (1.8-7.7) Lymphocytes # (Auto) 1.9 x10^3/uL (1.0-4.8) Monocytes # (Auto) 0.7 x10^3/uL (0.0-1.1) Eosinophils # (Auto) 0.3 x10^3/uL (0.0-0.7) Basophils # (Auto) 0.1 x10^3/uL (0.0-0.2) Segmented Neutrophils % 69 % (35-66) Band Neutrophils % 3 % (0-9) Lymphocytes % 21 % (24-48) Monocytes % 2 % (0-10) Eosinophils % 4 % (0-5) Myelocytes % 1 % (0-0) Platelet Estimate Adequate (ADEQUATE) Sodium Level 144 mmol/L (136-145) Potassium Level 3.8 mmol/L (3.5-5.1) Chloride Level 105 mmol/L (98-107) Carbon Dioxide Level 29 mmol/L (21-32) Anion Gap 10 (6-14) Blood Urea Nitrogen 32 mg/dL (7-20) Creatinine 1.0 mg/dL (0.6-1.0) Estimated GFR (Cockcroft-Gault) 53.3 BUN/Creatinine Ratio 32 (6-20) Glucose Level 130 mg/dL (70-99) Calcium Level 8.3 mg/dL (8.5-10.1) Magnesium Level 2.0 mg/dL (1.8-2.4) Total Bilirubin 0.3 mg/dL (0.2-1.0) Aspartate Amino Transf (AST/SGOT) 15 U/L (15-37) Alanine Aminotransferase (ALT/SGPT) 23 U/L (14-59) Alkaline Phosphatase 71 U/L (46-116) Troponin I Quantitative < 0.017 ng/mL (0.000-0.055) RJ-Wgc-[id number]-Type Natriuretic Peptide 704 pg/mL (0-449) Total Protein 6.0 g/dL (6.4-8.2) Albumin 2.5 g/dL (3.4-5.0) Albumin/Globulin Ratio 0.7 (1.0-1.7) Thyroid Stimulating Hormone (TSH) 6.948 uIU/mL (0.358-3.74) Urine Collection Type Unknown Urine Color Yellow Urine Clarity Clear Urine pH 5.5 Urine Specific [place] 1.015 Urine Protein Negative mg/dL (NEG-TRACE) Urine Glucose (UA) Negative mg/dL (NEG) Urine Ketones (Stick) Negative mg/dL (NEG) Urine Blood Negative (NEG) Urine Nitrite Negative (NEG) Urine Bilirubin Negative (NEG) Urine Urobilinogen Dipstick 0.2 mg/dL (0.2 mg/dL) Urine Leukocyte Esterase Trace (NEG) Urine RBC Occ /HPF (0-2) Urine WBC 1-4 /HPF (0-4) Urine Squamous Epithelial Cells Mod /LPF Urine Bacteria 0 /HPF (0-FEW) Laboratory Tests Test 06/18/18 13:15 06/18/18 14:02 White Blood Count 9.1 x10^3/uL (4.0-11.0) Red Blood Count 3.52 x10^6/uL (3.50-5.40) Hemoglobin 9.7 g/dL (12.0-15.5) Hematocrit 29.1 % (36.0-47.0) Mean Corpuscular Volume 83 fL (79-100) Mean Corpuscular Hemoglobin 28 pg (25-35) Mean Corpuscular Hemoglobin Concent 33 g/dL (31-37) Red Cell Distribution Width 16.9 % (11.5-14.5) Platelet Count 185 x10^3/uL (140-400) Neutrophils (%) (Auto) 67 % (31-73) Lymphocytes (%) (Auto) 21 % (24-48) Monocytes (%) (Auto) 8 % (0-9) Eosinophils (%) (Auto) 3 % (0-3) Basophils (%) (Auto) 1 % (0-3) Neutrophils # (Auto) 6.1 x10^3uL (1.8-7.7) Lymphocytes # (Auto) 1.9 x10^3/uL (1.0-4.8) Monocytes # (Auto) 0.7 x10^3/uL (0.0-1.1) Eosinophils # (Auto) 0.3 x10^3/uL (0.0-0.7) Basophils # (Auto) 0.1 x10^3/uL (0.0-0.2) Segmented Neutrophils % 69 % (35-66) Band Neutrophils % 3 % (0-9) Lymphocytes % 21 % (24-48) Monocytes % 2 % (0-10) Eosinophils % 4 % (0-5) Myelocytes % 1 % (0-0) Platelet Estimate Adequate (ADEQUATE) Sodium Level 144 mmol/L (136-145) Potassium Level 3.8 mmol/L (3.5-5.1) Chloride Level 105 mmol/L (98-107) Carbon Dioxide Level 29 mmol/L (21-32) Anion Gap 10 (6-14) Blood Urea Nitrogen 32 mg/dL (7-20) Creatinine 1.0 mg/dL (0.6-1.0) Estimated GFR (Cockcroft-Gault) 53.3 BUN/Creatinine Ratio 32 (6-20) Glucose Level 130 mg/dL (70-99) Calcium Level 8.3 mg/dL (8.5-10.1) Magnesium Level 2.0 mg/dL (1.8-2.4) Total Bilirubin 0.3 mg/dL (0.2-1.0) Aspartate Amino Transf (AST/SGOT) 15 U/L (15-37) Alanine Aminotransferase (ALT/SGPT) 23 U/L (14-59) Alkaline Phosphatase 71 U/L (46-116) Troponin I Quantitative < 0.017 ng/mL (0.000-0.055) JG-Kxs-Y-Type Natriuretic Peptide 704 pg/mL (0-449) Total Protein 6.0 g/dL (6.4-8.2) Albumin 2.5 g/dL (3.4-5.0) Albumin/Globulin Ratio 0.7 (1.0-1.7) Thyroid Stimulating Hormone (TSH) 6.948 uIU/mL (0.358-3.74) Urine Collection Type Unknown Urine Color Yellow Urine Clarity Clear Urine pH 5.5 Urine Specific [place] 1.015 Urine Protein Negative mg/dL (NEG-TRACE) Urine Glucose (UA) Negative mg/dL (NEG) Urine Ketones (Stick) Negative mg/dL (NEG) Urine Blood Negative (NEG) Urine Nitrite Negative (NEG) Urine Bilirubin Negative (NEG) Urine Urobilinogen Dipstick 0.2 mg/dL (0.2 mg/dL) Urine Leukocyte Esterase Trace (NEG) Urine RBC Occ /HPF (0-2) Urine WBC 1-4 /HPF (0-4) Urine Squamous Epithelial Cells Mod /LPF Urine Bacteria 0 /HPF (0-FEW) VTE Prophylaxis Ordered VTE Prophylaxis Devices: Yes VTE Pharmacological Prophylaxi: Yes Assessment/Plan Assessment/Plan COPD acute bronchitis chronic hypercarbic and hypoxic respiratory failure weakness and debility Anxiety moderate malnutrition LUKAS DWYER MD Jun 18, 2018 16:46
[2018-06-18 16:50] VITALS: BP 109/67
[2018-06-18] MEDS: IPRATRPIUM/ALBUTEROL 0.5/2.5MG 3 ML NEBU. NEB SCH ×2 (17:26→19:53)
[2018-06-18 19:00] VITALS: BP 133/61
[2018-06-18] MEDS ORDERED: C.DIFF MED SCREEN BY RX. MC ONE (19:45)
--- NOTE | 2018-06-18 22:47 | CONS ---
DATE OF CONSULTATION: ATTENDING PHYSICIAN: Dr. Fitch. REASON FOR CONSULTATION: Dyspnea. HISTORY OF PRESENT ILLNESS: The patient is an 78-year-old female with history of chronic hypoxic respiratory failure secondary to severe COPD. She is hospitalized almost every other week. She has refused on multiple occasions to go to rehab place. She was brought into the hospital with increased shortness of breath. She denies any cough, denies any fever, denies any chills. No chest pains, no headaches. No nausea, vomiting or diarrhea. She does have ankle edema. The patient's chest x-ray was reviewed by me. There was a chronic appearing left lower lobe scarring. There were slightly prominent interstitial markings. Overall, chest x-ray finding does not appear to be any different than her previous admission. The patient was started on IV Solu-Medrol and DuoNeb, and I have been asked to see her for further evaluation. PAST MEDICAL HISTORY: History of COPD, history of chronic hypoxic respiratory failure on home oxygen 4 liters, history of peripheral neuropathy, osteoarthritis. PAST SURGICAL HISTORY: Cholecystectomy and coronary artery disease. ALLERGIES: DOXYCYCLINE. MEDICATIONS: Reviewed as listed in the MRAD. REVIEW OF SYSTEMS: Twelve-point system obtained. Pertinent positives discussed in my history of present illness, otherwise noncontributory. All systems that were negative were reviewed as well. SOCIAL HISTORY: Has long history of tobacco use, but no longer smokes cigarettes. PHYSICAL EXAMINATION: GENERAL: She is in no obvious respiratory distress. VITAL SIGNS: Pulse ox 94% on 4 liters, blood pressure is stable, afebrile. HEENT: Sclerae nonicteric. NECK: Supple. LUNGS: Diminished breath sounds. CARDIOVASCULAR: Regular rate and rhythm. ABDOMEN: Soft, nontender. EXTREMITIES: With ankle edema bilaterally. LABORATORY DATA: Reviewed. White cell count is 9.1, hemoglobin 9.7, platelets are 185. BUN 32, creatinine 1.0. Albumin is 2.5. IMPRESSION: 1. Kkjhw-ks-cqzdrla respiratory failure related to acute exacerbation of chronic obstructive pulmonary disease and probably [id number] cor pulmonale. She does have increasing ankle edema. 2. Abnormal chest x-ray, but appears to be unchanged from previous films. She has parenchymal scarring bilaterally along with left lower lobe atelectasis. Clinically, less likely pneumonia. 3. Mild azotemia. 4. Geqebjqe-vr-jznrwu protein-calorie malnutrition. 5. Hypothyroidism with mildly increased TSH level. RECOMMENDATIONS: 1. Discussed with the patient the importance of rehabilitation therapy as she is hospitalized every other week. 2. We will need to consult Palliative Care to discuss the goals of care again. 3. Continue present bronchodilators. 4. Continue present oxygen. 5. IV steroids with gradual taper. 6. Lasix p.r.n. 7. Discussed with RN. SHERON URENA MD DR: WINNIE/nts JOB#: [id number] / [id number]
[2018-06-18 23:00] VITALS: BP 123/63
[2018-06-19 03:00] VITALS: BP 146/76
[2018-06-19 05:36] LABS: BASO % 0 % (0-3); EOS % 0 % (0-3); HEMATOCRIT 27.5 % (36.0-47.0); LYMPH # 0.8 x10^3/uL (1.0-4.8); LYMPH % 12 % (24-48); MEAN CORPUSCULAR HEMOGLOBIN 27 pg (25-35); MEAN CORPUSCULAR HGB CONC 33 g/dL (31-37); MEAN CORPUSCULAR VOLUME 83 fL (79-100); MONO # 0.3 x10^3/uL (0.0-1.1); MONO % 5 % (0-9); NEUT # 5.7 x10^3uL (1.8-7.7); NEUT % 83 % (31-73); PLATELET COUNT 170 x10^3/uL (140-400); RED BLOOD COUNT 3.31 x10^6/uL (3.50-5.40); RED CELL DISTRIBUTION WIDTH 16.8 % (11.5-14.5); WHITE BLOOD COUNT 6.8 x10^3/uL (4.0-11.0)
[2018-06-19 05:54] LABS: CALCIUM 8.3 mg/dL (8.5-10.1); GFR 53.3; POTASSIUM 4.1 mmol/L (3.5-5.1)
[2018-06-19 07:58] VITALS: BP 134/69
[2018-06-19] MEDS ORDERED: FUROSEMIDE 40 MG/4 ML VIAL. IVP ONE ×2 (08:00→13:45)
--- NOTE | 2018-06-19 08:31 | PDOC ---
PROGRESS NOTES Chief Complaint Chief Complaint Shortness of breath, cough History of Present Illness History of Present Illness Very pleasant 78yo CF with PMHx of ILD/COPD with multiple admissions to the hospital for the same, the most recent 2 weeks ago who returns with worsening shortness of breath at home with cough. She lives alone, but does have family in town, has been recommend to go to SNF in the past. A: Hccen-bb-whnbzgp respiratory failure related to acute exacerbation of chronic obstructive pulmonary disease and probably flonv-tc-hhsjbqd cor pulmonale. She does have increasing ankle edema. Abnormal chest x-ray, but appears to be unchanged from previous films. She has parenchymal scarring bilaterally along with left lower lobe atelectasis - Clinically, less likely pneumonia per pulm Mild azotemia, BUN 32. Reclllib-wc-znsbyw protein-calorie malnutrition - has been eating every meal since admission after steroid administration Hypothyroidism with mildly increased TSH level > 6 P: Consider pulm rehab and Palliative Care to discuss the goals of care again. Continue present bronchodilators Continue present oxygen. IV steroids with gradual taper, likely to oral tomorrow morning. Leonel odonnell Discussed with RN, reviewed labs. Vitals Vitals Vital Signs Date Time Temp Pulse Resp B/P (MAP) Pulse Ox O2 Delivery O2 Flow Rate FiO2 06/19/18 07:58 97.7 76 24 134/69 (90) 96 Nasal Cannula 4.0 97.7 Physical Exam General: Alert, Oriented X3, Cooperative, mild distress Lungs: Wheezing Abdomen: Normal bowel sounds, Soft Extremities: No clubbing, No edema, Normal pulses Skin: No rashes, No significant lesion Labs LABS Laboratory Tests Test 06/18/18 13:15 06/18/18 14:02 06/19/18 05:00 White Blood Count 9.1 x10^3/uL (4.0-11.0) 6.8 x10^3/uL (4.0-11.0) Red Blood Count 3.52 x10^6/uL (3.50-5.40) 3.31 x10^6/uL (3.50-5.40) Hemoglobin 9.7 g/dL (12.0-15.5) 9.0 g/dL (12.0-15.5) Hematocrit 29.1 % (36.0-47.0) 27.5 % (36.0-47.0) Mean Corpuscular Volume 83 fL (79-100) 83 fL (79-100) Mean Corpuscular Hemoglobin 28 pg (25-35) 27 pg (25-35) Mean Corpuscular Hemoglobin Concent 33 g/dL (31-37) 33 g/dL (31-37) Red Cell Distribution Width 16.9 % (11.5-14.5) 16.8 % (11.5-14.5) Platelet Count 185 x10^3/uL (140-400) 170 x10^3/uL (140-400) Neutrophils (%) (Auto) 67 % (31-73) 83 % (31-73) Lymphocytes (%) (Auto) 21 % (24-48) 12 % (24-48) Monocytes (%) (Auto) 8 % (0-9) 5 % (0-9) Eosinophils (%) (Auto) 3 % (0-3) 0 % (0-3) Basophils (%) (Auto) 1 % (0-3) 0 % (0-3) Neutrophils # (Auto) 6.1 x10^3uL (1.8-7.7) 5.7 x10^3uL (1.8-7.7) Lymphocytes # (Auto) 1.9 x10^3/uL (1.0-4.8) 0.8 x10^3/uL (1.0-4.8) Monocytes # (Auto) 0.7 x10^3/uL (0.0-1.1) 0.3 x10^3/uL (0.0-1.1) Eosinophils # (Auto) 0.3 x10^3/uL (0.0-0.7) 0.0 x10^3/uL (0.0-0.7) Basophils # (Auto) 0.1 x10^3/uL (0.0-0.2) 0.0 x10^3/uL (0.0-0.2) Segmented Neutrophils % 69 % (35-66) Band Neutrophils % 3 % (0-9) Lymphocytes % 21 % (24-48) Monocytes % 2 % (0-10) Eosinophils % 4 % (0-5) Myelocytes % 1 % (0-0) Platelet Estimate Adequate (ADEQUATE) Sodium Level 144 mmol/L (136-145) 143 mmol/L (136-145) Potassium Level 3.8 mmol/L (3.5-5.1) 4.1 mmol/L (3.5-5.1) Chloride Level 105 mmol/L (98-107) 105 mmol/L (98-107) Carbon Dioxide Level 29 mmol/L (21-32) 29 mmol/L (21-32) Anion Gap 10 (6-14) 9 (6-14) Blood Urea Nitrogen 32 mg/dL (7-20) 32 mg/dL (7-20) Creatinine 1.0 mg/dL (0.6-1.0) 1.0 mg/dL (0.6-1.0) Estimated GFR (Cockcroft-Gault) 53.3 53.3 BUN/Creatinine Ratio 32 (6-20) Glucose Level 130 mg/dL (70-99) 148 mg/dL (70-99) Calcium Level 8.3 mg/dL (8.5-10.1) 8.3 mg/dL (8.5-10.1) Magnesium Level 2.0 mg/dL (1.8-2.4) Total Bilirubin 0.3 mg/dL (0.2-1.0) Aspartate Amino Transf (AST/SGOT) 15 U/L (15-37) Alanine Aminotransferase (ALT/SGPT) 23 U/L (14-59) Alkaline Phosphatase 71 U/L (46-116) Troponin I Quantitative < 0.017 ng/mL (0.000-0.055) XI-Ynl-W-Type Natriuretic Peptide 704 pg/mL (0-449) Total Protein 6.0 g/dL (6.4-8.2) Albumin 2.5 g/dL (3.4-5.0) Albumin/Globulin Ratio 0.7 (1.0-1.7) Thyroid Stimulating Hormone (TSH) 6.948 uIU/mL (0.358-3.74) Urine Collection Type Unknown Urine Color Yellow Urine Clarity Clear Urine pH 5.5 Urine Specific [place] 1.015 Urine Protein Negative mg/dL (NEG-TRACE) Urine Glucose (UA) Negative mg/dL (NEG) Urine Ketones (Stick) Negative mg/dL (NEG) Urine Blood Negative (NEG) Urine Nitrite Negative (NEG) Urine Bilirubin Negative (NEG) Urine Urobilinogen Dipstick 0.2 mg/dL (0.2 mg/dL) Urine Leukocyte Esterase Trace (NEG) Urine RBC Occ /HPF (0-2) Urine WBC 1-4 /HPF (0-4) Urine Squamous Epithelial Cells Mod /LPF Urine Bacteria 0 /HPF (0-FEW) Assessment and Plan Assessmemt and Plan Problems Medical Problems: (1) Anemia Status: Acute (2) COPD exacerbation Status: Acute (3) Hypoxia Status: Acute (4) Pneumonia Status: Acute (5) Transient respiratory distress with sepsis Status: Acute Comment Review of Relevant I have reviewed the following items [place] (where applicable) has been applied. Labs Laboratory Tests Test 06/18/18 13:15 06/18/18 14:02 06/19/18 05:00 White Blood Count 9.1 x10^3/uL (4.0-11.0) 6.8 x10^3/uL (4.0-11.0) Red Blood Count 3.52 x10^6/uL (3.50-5.40) 3.31 x10^6/uL (3.50-5.40) Hemoglobin 9.7 g/dL (12.0-15.5) 9.0 g/dL (12.0-15.5) Hematocrit 29.1 % (36.0-47.0) 27.5 % (36.0-47.0) Mean Corpuscular Volume 83 fL (79-100) 83 fL (79-100) Mean Corpuscular Hemoglobin 28 pg (25-35) 27 pg (25-35) Mean Corpuscular Hemoglobin Concent 33 g/dL (31-37) 33 g/dL (31-37) Red Cell Distribution Width 16.9 % (11.5-14.5) 16.8 % (11.5-14.5) Platelet Count 185 x10^3/uL (140-400) 170 x10^3/uL (140-400) Neutrophils (%) (Auto) 67 % (31-73) 83 % (31-73) Lymphocytes (%) (Auto) 21 % (24-48) 12 % (24-48) Monocytes (%) (Auto) 8 % (0-9) 5 % (0-9) Eosinophils (%) (Auto) 3 % (0-3) 0 % (0-3) Basophils (%) (Auto) 1 % (0-3) 0 % (0-3) Neutrophils # (Auto) 6.1 x10^3uL (1.8-7.7) 5.7 x10^3uL (1.8-7.7) Lymphocytes # (Auto) 1.9 x10^3/uL (1.0-4.8) 0.8 x10^3/uL (1.0-4.8) Monocytes # (Auto) 0.7 x10^3/uL (0.0-1.1) 0.3 x10^3/uL (0.0-1.1) Eosinophils # (Auto) 0.3 x10^3/uL (0.0-0.7) 0.0 x10^3/uL (0.0-0.7) Basophils # (Auto) 0.1 x10^3/uL (0.0-0.2) 0.0 x10^3/uL (0.0-0.2) Segmented Neutrophils % 69 % (35-66) Band Neutrophils % 3 % (0-9) Lymphocytes % 21 % (24-48) Monocytes % 2 % (0-10) Eosinophils % 4 % (0-5) Myelocytes % 1 % (0-0) Platelet Estimate Adequate (ADEQUATE) Sodium Level 144 mmol/L (136-145) 143 mmol/L (136-145) Potassium Level 3.8 mmol/L (3.5-5.1) 4.1 mmol/L (3.5-5.1) Chloride Level 105 mmol/L (98-107) 105 mmol/L (98-107) Carbon Dioxide Level 29 mmol/L (21-32) 29 mmol/L (21-32) Anion Gap 10 (6-14) 9 (6-14) Blood Urea Nitrogen 32 mg/dL (7-20) 32 mg/dL (7-20) Creatinine 1.0 mg/dL (0.6-1.0) 1.0 mg/dL (0.6-1.0) Estimated GFR (Cockcroft-Gault) 53.3 53.3 BUN/Creatinine Ratio 32 (6-20) Glucose Level 130 mg/dL (70-99) 148 mg/dL (70-99) Calcium Level 8.3 mg/dL (8.5-10.1) 8.3 mg/dL (8.5-10.1) Magnesium Level 2.0 mg/dL (1.8-2.4) Total Bilirubin 0.3 mg/dL (0.2-1.0) Aspartate Amino Transf (AST/SGOT) 15 U/L (15-37) Alanine Aminotransferase (ALT/SGPT) 23 U/L (14-59) Alkaline Phosphatase 71 U/L (46-116) Troponin I Quantitative < 0.017 ng/mL (0.000-0.055) LE-Omh-K-Type Natriuretic Peptide 704 pg/mL (0-449) Total Protein 6.0 g/dL (6.4-8.2) Albumin 2.5 g/dL (3.4-5.0) Albumin/Globulin Ratio 0.7 (1.0-1.7) Thyroid Stimulating Hormone (TSH) 6.948 uIU/mL (0.358-3.74) Urine Collection Type Unknown Urine Color Yellow Urine Clarity Clear Urine pH 5.5 Urine Specific [place] 1.015 Urine Protein Negative mg/dL (NEG-TRACE) Urine Glucose (UA) Negative mg/dL (NEG) Urine Ketones (Stick) Negative mg/dL (NEG) Urine Blood Negative (NEG) Urine Nitrite Negative (NEG) Urine Bilirubin Negative (NEG) Urine Urobilinogen Dipstick 0.2 mg/dL (0.2 mg/dL) Urine Leukocyte Esterase Trace (NEG) Urine RBC Occ /HPF (0-2) Urine WBC 1-4 /HPF (0-4) Urine Squamous Epithelial Cells Mod /LPF Urine Bacteria 0 /HPF (0-FEW) Laboratory Tests Test 06/18/18 13:15 06/18/18 14:02 06/19/18 05:00 White Blood Count 9.1 x10^3/uL (4.0-11.0) 6.8 x10^3/uL (4.0-11.0) Red Blood Count 3.52 x10^6/uL (3.50-5.40) 3.31 x10^6/uL (3.50-5.40) Hemoglobin 9.7 g/dL (12.0-15.5) 9.0 g/dL (12.0-15.5) Hematocrit 29.1 % (36.0-47.0) 27.5 % (36.0-47.0) Mean Corpuscular Volume 83 fL (79-100) 83 fL (79-100) Mean Corpuscular Hemoglobin 28 pg (25-35) 27 pg (25-35) Mean Corpuscular Hemoglobin Concent 33 g/dL (31-37) 33 g/dL (31-37) Red Cell Distribution Width 16.9 % (11.5-14.5) 16.8 % (11.5-14.5) Platelet Count 185 x10^3/uL (140-400) 170 x10^3/uL (140-400) Neutrophils (%) (Auto) 67 % (31-73) 83 % (31-73) Lymphocytes (%) (Auto) 21 % (24-48) 12 % (24-48) Monocytes (%) (Auto) 8 % (0-9) 5 % (0-9) Eosinophils (%) (Auto) 3 % (0-3) 0 % (0-3) Basophils (%) (Auto) 1 % (0-3) 0 % (0-3) Neutrophils # (Auto) 6.1 x10^3uL (1.8-7.7) 5.7 x10^3uL (1.8-7.7) Lymphocytes # (Auto) 1.9 x10^3/uL (1.0-4.8) 0.8 x10^3/uL (1.0-4.8) Monocytes # (Auto) 0.7 x10^3/uL (0.0-1.1) 0.3 x10^3/uL (0.0-1.1) Eosinophils # (Auto) 0.3 x10^3/uL (0.0-0.7) 0.0 x10^3/uL (0.0-0.7) Basophils # (Auto) 0.1 x10^3/uL (0.0-0.2) 0.0 x10^3/uL (0.0-0.2) Segmented Neutrophils % 69 % (35-66) Band Neutrophils % 3 % (0-9) Lymphocytes % 21 % (24-48) Monocytes % 2 % (0-10) Eosinophils % 4 % (0-5) Myelocytes % 1 % (0-0) Platelet Estimate Adequate (ADEQUATE) Sodium Level 144 mmol/L (136-145) 143 mmol/L (136-145) Potassium Level 3.8 mmol/L (3.5-5.1) 4.1 mmol/L (3.5-5.1) Chloride Level 105 mmol/L (98-107) 105 mmol/L (98-107) Carbon Dioxide Level 29 mmol/L (21-32) 29 mmol/L (21-32) Anion Gap 10 (6-14) 9 (6-14) Blood Urea Nitrogen 32 mg/dL (7-20) 32 mg/dL (7-20) Creatinine 1.0 mg/dL (0.6-1.0) 1.0 mg/dL (0.6-1.0) Estimated GFR (Cockcroft-Gault) 53.3 53.3 BUN/Creatinine Ratio 32 (6-20) Glucose Level 130 mg/dL (70-99) 148 mg/dL (70-99) Calcium Level 8.3 mg/dL (8.5-10.1) 8.3 mg/dL (8.5-10.1) Magnesium Level 2.0 mg/dL (1.8-2.4) Total Bilirubin 0.3 mg/dL (0.2-1.0) Aspartate Amino Transf (AST/SGOT) 15 U/L (15-37) Alanine Aminotransferase (ALT/SGPT) 23 U/L (14-59) Alkaline Phosphatase 71 U/L (46-116) Troponin I Quantitative < 0.017 ng/mL (0.000-0.055) JL-Zyy-D-Type Natriuretic Peptide 704 pg/mL (0-449) Total Protein 6.0 g/dL (6.4-8.2) Albumin 2.5 g/dL (3.4-5.0) Albumin/Globulin Ratio 0.7 (1.0-1.7) Thyroid Stimulating Hormone (TSH) 6.948 uIU/mL (0.358-3.74) Urine Collection Type Unknown Urine Color Yellow Urine Clarity Clear Urine pH 5.5 Urine Specific [place] 1.015 Urine Protein Negative mg/dL (NEG-TRACE) Urine Glucose (UA) Negative mg/dL (NEG) Urine Ketones (Stick) Negative mg/dL (NEG) Urine Blood Negative (NEG) Urine Nitrite Negative (NEG) Urine Bilirubin Negative (NEG) Urine Urobilinogen Dipstick 0.2 mg/dL (0.2 mg/dL) Urine Leukocyte Esterase Trace (NEG) Urine RBC Occ /HPF (0-2) Urine WBC 1-4 /HPF (0-4) Urine Squamous Epithelial Cells Mod /LPF Urine Bacteria 0 /HPF (0-FEW) Medications Current Medications Albuterol/ Ipratropium (Duoneb) 3 ml 1X ONCE NEB Last administered on at 13:32; Start 06/18/18 at 13:15; Stop 06/18/18 at 13:16; Status DC Methylprednisolone Sodium Succinate (SOLU-Medrol 125MG VIAL) 125 mg 1X ONCE IV Last administered on 06/18/18at 13:26; Start 06/18/18 at 13:15; Stop 06/18/18 at 13:16; Status DC Ondansetron HCl (Zofran) 4 mg PRN Q8HRS PRN IV NAUSEA/VOMITING; Start 06/18/18 at 16:00; Stop 06/19/18 at 15:59 Fentanyl Citrate (Fentanyl 2ml Vial) 50 mcg PRN Q2HR PRN IV PAIN; Start at 16:00; Stop 06/19/18 at 15:59 Acetaminophen (Tylenol) 650 mg PRN Q4HRS PRN PO FEVER; Start 06/18/18 at 16:00 ; Stop 06/19/18 at 15:59 Albuterol/ Ipratropium (Duoneb) 3 ml RTQID NEB Last administered on 06/18/18at 19:53; Start 06/18/18 at 16:00; Stop 06/19/18 at 15:59 Methylprednisolone Sodium Succinate (SOLU-Medrol 125MG VIAL) 60 mg DAILY IV ; Start 06/19/18 at 09:00 Pharmacy Consult (C.diff Med Screen By Rx) 1 each 1X ONCE [facility] ; Start 06/18/18 at 19:45; Stop 06/18/18 at 19:46; Status UNV Furosemide (Lasix) 40 mg 1X ONCE IVP ; Start 06/19/18 at 08:00; Stop 06/19/18 at 08:01; Status DC Active Scripts Active Furosemide 20 Mg Tablet 20 Mg PO DAILY Nystop (Nystatin) 60 Gm Powder 1 Rea TP QID 30 Days Reported Tylenol (Acetaminophen) 325 Mg Tablet 650 Mg PO TID PRN PRN Aspir 81 (Aspirin) 81 Mg Tablet. 1 Tab PO DAILY Iron Supplement (Ferrous Sulfate) 325 Mg Tablet 1 Tab PO DAILY Advair 250-50 Diskus (Fluticasone/Salmeterol) 1 Each Disk.w.dev 1 Puff IH BID Duoneb 0.5-3(2.5) Mg/3 Ml (Albuterol/Ipratropium) 3 Ml Ampul.neb 3 Ml IH Q4HRS PRN Pravastatin Sodium 10 Mg Tablet 1 Tab PO QHS Carvedilol 6.25 Mg Tablet 1 Tab PO BID Vitals/I & O Vital Sign - Last 24 Hours 06/18/18 06/18/18 06/18/18 06/18/18 12:55 13:32 13:55 14:50 Temp 97.9 97.9 Pulse 71 70 72 Resp 18 20 21 B/P (MAP) 135/63 (87) 140/64 (89) 124/60 (81) Pulse Ox 95 95 97 97 O2 Delivery Nasal Cannula Nasal Cannula Nasal Cannula Nasal Cannula O2 Flow Rate 4.0 4.0 4.0 4.0 06/18/18 06/18/18 06/18/18 06/18/18 15:49 16:19 16:50 17:27 Temp 97.9 97.9 Pulse 74 74 76 Resp 21 18 20 B/P (MAP) 140/63 (88) 141/63 (89) 109/67 (81) Pulse Ox 98 97 96 96 O2 Delivery Nasal Cannula Nasal Cannula Nasal Cannula Nasal Cannula O2 Flow Rate 4.0 4.0 4.0 4.0 06/18/18 06/18/18 06/18/18 06/18/18 18:14 19:00 19:55 20:00 Temp 97.5 97.5 Pulse 81 Resp 18 B/P (MAP) 133/61 (85) Pulse Ox 92 94 O2 Delivery Nasal Cannula Nasal Cannula Nasal Cannula Nasal Cannula O2 Flow Rate 4.0 4.0 4.0 4.0 06/18/18 06/19/18 06/19/18 23:00 03:00 07:58 Temp 97.9 97.7 97.7 97.9 97.7 97.7 Pulse 80 85 76 Resp 18 18 24 B/P (MAP) 123/63 (83) 146/76 (99) 134/69 (90) Pulse Ox 96 97 96 O2 Delivery Nasal Cannula Nasal Cannula Nasal Cannula O2 Flow Rate 4.0 4.0 4.0 Intake and Output 06/18/18 06/18/18 06/19/18 15:00 23:00 07:00 Intake Total 180 ml 350 ml Balance 180 ml 350 ml KAYE LANDA MD Jun 19, 2018 08:31
[2018-06-19] MEDS: IPRATRPIUM/ALBUTEROL 0.5/2.5MG 3 ML NEBU. NEB SCH ×3 (08:43→19:34)
[2018-06-19] MEDS ORDERED: methylPREDNISolone SOD SUCC PF 125 MG/2 ML VIAL. IV SCH (09:00)
[2018-06-19 11:00] VITALS: BP 125/59
--- NOTE | 2018-06-19 13:36 | PDOC ---
PULMONARY PROGRESS NOTES Subjective feels better Vitals Vital Signs Date Time Temp Pulse Resp B/P (MAP) Pulse Ox O2 Delivery O2 Flow Rate FiO2 06/19/18 12:49 97 Nasal Cannula 4.0 06/19/18 11:00 97.8 73 20 125/59 (81) 97.8 General: Alert, No acute distress Lungs: Other (decrease bs) Cardiovascular: S1, S2 Abdomen: Soft, Non-tender Neuro Exam: Alert Extremities: Other (2+edema) Skin: Warm Labs Laboratory Tests Test 06/18/18 13:15 06/18/18 14:02 06/19/18 05:00 White Blood Count 9.1 x10^3/uL (4.0-11.0) 6.8 x10^3/uL (4.0-11.0) Red Blood Count 3.52 x10^6/uL (3.50-5.40) 3.31 x10^6/uL (3.50-5.40) Hemoglobin 9.7 g/dL (12.0-15.5) 9.0 g/dL (12.0-15.5) Hematocrit 29.1 % (36.0-47.0) 27.5 % (36.0-47.0) Mean Corpuscular Volume 83 fL (79-100) 83 fL (79-100) Mean Corpuscular Hemoglobin 28 pg (25-35) 27 pg (25-35) Mean Corpuscular Hemoglobin Concent 33 g/dL (31-37) 33 g/dL (31-37) Red Cell Distribution Width 16.9 % (11.5-14.5) 16.8 % (11.5-14.5) Platelet Count 185 x10^3/uL (140-400) 170 x10^3/uL (140-400) Neutrophils (%) (Auto) 67 % (31-73) 83 % (31-73) Lymphocytes (%) (Auto) 21 % (24-48) 12 % (24-48) Monocytes (%) (Auto) 8 % (0-9) 5 % (0-9) Eosinophils (%) (Auto) 3 % (0-3) 0 % (0-3) Basophils (%) (Auto) 1 % (0-3) 0 % (0-3) Neutrophils # (Auto) 6.1 x10^3uL (1.8-7.7) 5.7 x10^3uL (1.8-7.7) Lymphocytes # (Auto) 1.9 x10^3/uL (1.0-4.8) 0.8 x10^3/uL (1.0-4.8) Monocytes # (Auto) 0.7 x10^3/uL (0.0-1.1) 0.3 x10^3/uL (0.0-1.1) Eosinophils # (Auto) 0.3 x10^3/uL (0.0-0.7) 0.0 x10^3/uL (0.0-0.7) Basophils # (Auto) 0.1 x10^3/uL (0.0-0.2) 0.0 x10^3/uL (0.0-0.2) Segmented Neutrophils % 69 % (35-66) Band Neutrophils % 3 % (0-9) Lymphocytes % 21 % (24-48) Monocytes % 2 % (0-10) Eosinophils % 4 % (0-5) Myelocytes % 1 % (0-0) Platelet Estimate Adequate (ADEQUATE) Sodium Level 144 mmol/L (136-145) 143 mmol/L (136-145) Potassium Level 3.8 mmol/L (3.5-5.1) 4.1 mmol/L (3.5-5.1) Chloride Level 105 mmol/L (98-107) 105 mmol/L (98-107) Carbon Dioxide Level 29 mmol/L (21-32) 29 mmol/L (21-32) Anion Gap 10 (6-14) 9 (6-14) Blood Urea Nitrogen 32 mg/dL (7-20) 32 mg/dL (7-20) Creatinine 1.0 mg/dL (0.6-1.0) 1.0 mg/dL (0.6-1.0) Estimated GFR (Cockcroft-Gault) 53.3 53.3 BUN/Creatinine Ratio 32 (6-20) Glucose Level 130 mg/dL (70-99) 148 mg/dL (70-99) Calcium Level 8.3 mg/dL (8.5-10.1) 8.3 mg/dL (8.5-10.1) Magnesium Level 2.0 mg/dL (1.8-2.4) Total Bilirubin 0.3 mg/dL (0.2-1.0) Aspartate Amino Transf (AST/SGOT) 15 U/L (15-37) Alanine Aminotransferase (ALT/SGPT) 23 U/L (14-59) Alkaline Phosphatase 71 U/L (46-116) Troponin I Quantitative < 0.017 ng/mL (0.000-0.055) FG-Bql-N-Type Natriuretic Peptide 704 pg/mL (0-449) Total Protein 6.0 g/dL (6.4-8.2) Albumin 2.5 g/dL (3.4-5.0) Albumin/Globulin Ratio 0.7 (1.0-1.7) Thyroid Stimulating Hormone (TSH) 6.948 uIU/mL (0.358-3.74) Urine Collection Type Unknown Urine Color Yellow Urine Clarity Clear Urine pH 5.5 Urine Specific [place] 1.015 Urine Protein Negative mg/dL (NEG-TRACE) Urine Glucose (UA) Negative mg/dL (NEG) Urine Ketones (Stick) Negative mg/dL (NEG) Urine Blood Negative (NEG) Urine Nitrite Negative (NEG) Urine Bilirubin Negative (NEG) Urine Urobilinogen Dipstick 0.2 mg/dL (0.2 mg/dL) Urine Leukocyte Esterase Trace (NEG) Urine RBC Occ /HPF (0-2) Urine WBC 1-4 /HPF (0-4) Urine Squamous Epithelial Cells Mod /LPF Urine Bacteria 0 /HPF (0-FEW) Laboratory Tests Test 06/18/18 14:02 06/19/18 05:00 Urine Collection Type Unknown Urine Color Yellow Urine Clarity Clear Urine pH 5.5 Urine Specific [place] 1.015 Urine Protein Negative mg/dL (NEG-TRACE) Urine Glucose (UA) Negative mg/dL (NEG) Urine Ketones (Stick) Negative mg/dL (NEG) Urine Blood Negative (NEG) Urine Nitrite Negative (NEG) Urine Bilirubin Negative (NEG) Urine Urobilinogen Dipstick 0.2 mg/dL (0.2 mg/dL) Urine Leukocyte Esterase Trace (NEG) Urine RBC Occ /HPF (0-2) Urine WBC 1-4 /HPF (0-4) Urine Squamous Epithelial Cells Mod /LPF Urine Bacteria 0 /HPF (0-FEW) White Blood Count 6.8 x10^3/uL (4.0-11.0) Red Blood Count 3.31 x10^6/uL (3.50-5.40) Hemoglobin 9.0 g/dL (12.0-15.5) Hematocrit 27.5 % (36.0-47.0) Mean Corpuscular Volume 83 fL (79-100) Mean Corpuscular Hemoglobin 27 pg (25-35) Mean Corpuscular Hemoglobin Concent 33 g/dL (31-37) Red Cell Distribution Width 16.8 % (11.5-14.5) Platelet Count 170 x10^3/uL (140-400) Neutrophils (%) (Auto) 83 % (31-73) Lymphocytes (%) (Auto) 12 % (24-48) Monocytes (%) (Auto) 5 % (0-9) Eosinophils (%) (Auto) 0 % (0-3) Basophils (%) (Auto) 0 % (0-3) Neutrophils # (Auto) 5.7 x10^3uL (1.8-7.7) Lymphocytes # (Auto) 0.8 x10^3/uL (1.0-4.8) Monocytes # (Auto) 0.3 x10^3/uL (0.0-1.1) Eosinophils # (Auto) 0.0 x10^3/uL (0.0-0.7) Basophils # (Auto) 0.0 x10^3/uL (0.0-0.2) Sodium Level 143 mmol/L (136-145) Potassium Level 4.1 mmol/L (3.5-5.1) Chloride Level 105 mmol/L (98-107) Carbon Dioxide Level 29 mmol/L (21-32) Anion Gap 9 (6-14) Blood Urea Nitrogen 32 mg/dL (7-20) Creatinine 1.0 mg/dL (0.6-1.0) Estimated GFR (Cockcroft-Gault) 53.3 Glucose Level 148 mg/dL (70-99) Calcium Level 8.3 mg/dL (8.5-10.1) Medications Active Scripts Medications Dose Route/Sig Max Daily Dose Days Date Category Furosemide 20 Mg Tablet 20 Mg PO DAILY 02/21/18 Rx Nystop (Nystatin) 60 Gm Powder 1 Rea TP QID 30 01/02/18 Rx Tylenol (Acetaminophen) 325 Mg Tablet 650 Mg PO TID PRN PRN 04/11/16 Reported Aspir 81 (Aspirin) 81 Mg Tablet.dr 1 Tab PO DAILY 04/11/16 Reported Iron Supplement (Ferrous Sulfate) 325 Mg Tablet 1 Tab PO DAILY 11/10/15 Reported Advair 250-50 Diskus (Fluticasone/Salmeterol) 1 Each Disk.w.dev 1 Puff IH BID 05/06/15 Reported Duoneb 0.5-3(2.5) Mg/3 Ml (Albuterol/Ipratropium) 3 Ml Ampul.neb 3 Ml IH Q4HRS PRN 05/06/15 Reported Pravastatin Sodium 10 Mg Tablet 1 Tab PO QHS 09/16/14 Reported Carvedilol 6.25 Mg Tablet 1 Tab PO BID 09/16/14 Reported Impression . 1. Oyoyu-gx-hydirks respiratory failure related to acute exacerbation of chronic obstructive pulmonary disease and probably behaf-ge-wckpmjr cor pulmonale. She does have increasing ankle edema. 2. Abnormal chest x-ray, but appears to be unchanged from previous films. She has parenchymal scarring bilaterally along with left lower lobe atelectasis. Clinically, less likely pneumonia. 3. Mild azotemia. 4. Scqvkhyh-yh-qotcik protein-calorie malnutrition. 5. Hypothyroidism with mildly increased TSH level. Plan . 1. Discussed with the patient the importance of rehabilitation therapy as she is hospitalized every other week. 2. We will need to consult Palliative Care to discuss the goals of care again. 3. Continue present bronchodilators. 4. Continue present oxygen. 5. steroids with gradual taper. 6. Lasix p.r.n. 7. Discussed with RN. SHERON URENA MD Jun 19, 2018 13:36
[2018-06-19 15:00] VITALS: BP 136/61
[2018-06-19 19:00] VITALS: BP 126/54
[2018-06-19 22:59] VITALS: BP 129/55
[2018-06-20 02:55] VITALS: BP 123/65
[2018-06-20 07:00] VITALS: BP 144/76
[2018-06-20] MEDS: IPRATRPIUM/ALBUTEROL 0.5/2.5MG 3 ML NEBU. NEB SCH ×4 (07:59→20:16)
[2018-06-20] MEDS ORDERED: predniSONE 20 MG TABLET PO ONE (08:00)
[2018-06-20] MEDS ORDERED: ACETAMINOPHEN 325 MG TABLET. PO PRN (09:15)
--- NOTE | 2018-06-20 09:18 | PDOC ---
PULMONARY PROGRESS NOTES Subjective feels better Vitals Vital Signs Date Time Temp Pulse Resp B/P (MAP) Pulse Ox O2 Delivery O2 Flow Rate FiO2 06/20/18 07:59 99 Nasal Cannula 4.0 06/20/18 07:00 97.9 67 18 144/76 (98) 97.9 General: Alert, No acute distress Lungs: Other (decrease bs) Cardiovascular: S1, S2 Abdomen: Soft, Non-tender Neuro Exam: Alert Extremities: Other (2+edema) Skin: Warm Labs Laboratory Tests Test 06/18/18 13:15 06/18/18 14:02 06/19/18 04:30 06/19/18 05:00 White Blood Count 9.1 x10^3/uL (4.0-11.0) 6.8 x10^3/uL (4.0-11.0) Red Blood Count 3.52 x10^6/uL (3.50-5.40) 3.31 x10^6/uL (3.50-5.40) Hemoglobin 9.7 g/dL (12.0-15.5) 9.0 g/dL (12.0-15.5) Hematocrit 29.1 % (36.0-47.0) 27.5 % (36.0-47.0) Mean Corpuscular Volume 83 fL (79-100) 83 fL (79-100) Mean Corpuscular Hemoglobin 28 pg (25-35) 27 pg (25-35) Mean Corpuscular Hemoglobin Concent 33 g/dL (31-37) 33 g/dL (31-37) Red Cell Distribution Width 16.9 % (11.5-14.5) 16.8 % (11.5-14.5) Platelet Count 185 x10^3/uL (140-400) 170 x10^3/uL (140-400) Neutrophils (%) (Auto) 67 % (31-73) 83 % (31-73) Lymphocytes (%) (Auto) 21 % (24-48) 12 % (24-48) Monocytes (%) (Auto) 8 % (0-9) 5 % (0-9) Eosinophils (%) (Auto) 3 % (0-3) 0 % (0-3) Basophils (%) (Auto) 1 % (0-3) 0 % (0-3) Neutrophils # (Auto) 6.1 x10^3uL (1.8-7.7) 5.7 x10^3uL (1.8-7.7) Lymphocytes # (Auto) 1.9 x10^3/uL (1.0-4.8) 0.8 x10^3/uL (1.0-4.8) Monocytes # (Auto) 0.7 x10^3/uL (0.0-1.1) 0.3 x10^3/uL (0.0-1.1) Eosinophils # (Auto) 0.3 x10^3/uL (0.0-0.7) 0.0 x10^3/uL (0.0-0.7) Basophils # (Auto) 0.1 x10^3/uL (0.0-0.2) 0.0 x10^3/uL (0.0-0.2) Segmented Neutrophils % 69 % (35-66) Band Neutrophils % 3 % (0-9) Lymphocytes % 21 % (24-48) Monocytes % 2 % (0-10) Eosinophils % 4 % (0-5) Myelocytes % 1 % (0-0) Platelet Estimate Adequate (ADEQUATE) Sodium Level 144 mmol/L (136-145) 143 mmol/L (136-145) Potassium Level 3.8 mmol/L (3.5-5.1) 4.1 mmol/L (3.5-5.1) Chloride Level 105 mmol/L (98-107) 105 mmol/L (98-107) Carbon Dioxide Level 29 mmol/L (21-32) 29 mmol/L (21-32) Anion Gap 10 (6-14) 9 (6-14) Blood Urea Nitrogen 32 mg/dL (7-20) 32 mg/dL (7-20) Creatinine 1.0 mg/dL (0.6-1.0) 1.0 mg/dL (0.6-1.0) Estimated GFR (Cockcroft-Gault) 53.3 53.3 BUN/Creatinine Ratio 32 (6-20) Glucose Level 130 mg/dL (70-99) 148 mg/dL (70-99) Calcium Level 8.3 mg/dL (8.5-10.1) 8.3 mg/dL (8.5-10.1) Magnesium Level 2.0 mg/dL (1.8-2.4) Total Bilirubin 0.3 mg/dL (0.2-1.0) Aspartate Amino Transf (AST/SGOT) 15 U/L (15-37) Alanine Aminotransferase (ALT/SGPT) 23 U/L (14-59) Alkaline Phosphatase 71 U/L (46-116) Troponin I Quantitative < 0.017 ng/mL (0.000-0.055) PR-Irf-K-Type Natriuretic Peptide 704 pg/mL (0-449) Total Protein 6.0 g/dL (6.4-8.2) Albumin 2.5 g/dL (3.4-5.0) Albumin/Globulin Ratio 0.7 (1.0-1.7) Thyroid Stimulating Hormone (TSH) 6.948 uIU/mL (0.358-3.74) Urine Collection Type Unknown Urine Color Yellow Urine Clarity Clear Urine pH 5.5 Urine Specific [place] 1.015 Urine Protein Negative mg/dL (NEG-TRACE) Urine Glucose (UA) Negative mg/dL (NEG) Urine Ketones (Stick) Negative mg/dL (NEG) Urine Blood Negative (NEG) Urine Nitrite Negative (NEG) Urine Bilirubin Negative (NEG) Urine Urobilinogen Dipstick 0.2 mg/dL (0.2 mg/dL) Urine Leukocyte Esterase Trace (NEG) Urine RBC Occ /HPF (0-2) Urine WBC 1-4 /HPF (0-4) Urine Squamous Epithelial Cells Mod /LPF Urine Bacteria 0 /HPF (0-FEW) Nasal Screen 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) Medications Active Scripts Medications Dose Route/Sig Max Daily Dose Days Date Category Furosemide 20 Mg Tablet 20 Mg PO DAILY 02/21/18 Rx Nystop (Nystatin) 60 Gm Powder 1 Rea TP QID 30 01/02/18 Rx Tylenol (Acetaminophen) 325 Mg Tablet 650 Mg PO TID PRN PRN 04/11/16 Reported Aspir 81 (Aspirin) 81 Mg Tablet.dr 1 Tab PO DAILY 04/11/16 Reported Iron Supplement (Ferrous Sulfate) 325 Mg Tablet 1 Tab PO DAILY 11/10/15 Reported Advair 250-50 Diskus (Fluticasone/Salmeterol) 1 Each Disk.w.dev 1 Puff IH BID 05/06/15 Reported Duoneb 0.5-3(2.5) Mg/3 Ml (Albuterol/Ipratropium) 3 Ml Ampul.neb 3 Ml IH Q4HRS PRN 05/06/15 Reported Pravastatin Sodium 10 Mg Tablet 1 Tab PO QHS 09/16/14 Reported Carvedilol 6.25 Mg Tablet 1 Tab PO BID 09/16/14 Reported Impression . 1. Bhfjd-gx-uaotcqa respiratory failure related to acute exacerbation of chronic obstructive pulmonary disease and probably tttjn-kf-lhojbto cor pulmonale. She does have increasing ankle edema. 2. Abnormal chest x-ray, but appears to be unchanged from previous films. She has parenchymal scarring bilaterally along with left lower lobe atelectasis. Clinically, less likely pneumonia. 3. Mild azotemia. 4. Pbavhamg-oz-waozme protein-calorie malnutrition. 5. Hypothyroidism with mildly increased TSH level. Plan . 1. Discussed with the patient the importance of rehabilitation therapy as she is hospitalized every other week. she is finally agreeable 2. will need 6 min walk on 4 litres 3. Continue present bronchodilators. 4. Continue present oxygen. 5. steroids with gradual taper. 6. Lasix p.r.n. 7. Discussed with RN./ mya for skill SHERON URENA MD Jun 20, 2018 09:18
--- NOTE | 2018-06-20 09:31 | PDOC2 ---
PALLIATIVE CARE Palliative Care Note Palliative Care Consult requested by Dr. Fitch to address goals of care Medical Assessment per medical record Assessment COPD acute bronchitis chronic hypercarbic and hypoxic respiratory failure weakness and debility Anxiety moderate malnutrition Patient known to palliative care from previous admissions. Will arrange family meeting. Patient has agreed to go to SNU per notes. MARY ANN WOODS Jun 20, 2018 09:31
--- NOTE | 2018-06-20 09:35 | PDOC ---
PROGRESS NOTES Chief Complaint Chief Complaint COPD acute bronchitis chronic hypercarbic and hypoxic respiratory failure weakness and debility Anxiety moderate malnutrition probably eibca-lp-weiszaa cor pulmonale. She does have increasing ankle edema. Mild azotemia, BUN 32. History of Present Illness History of Present Illness Very pleasant 78yo CF with PMHx of ILD/COPD with multiple admissions to the hospital for the same, the most recent 2 weeks ago who returns with worsening shortness of breath at home with cough. She lives alone, but does have family in town, has been recommend to go to SNF in the past. Consider pulm rehab and Palliative Care plan SNU Continue present bronchodilators Continue present oxygen. 6 min walk IV steroids with gradual taper, likely to oral tomorrow morning. Leonel odonnell Discussed with ASHOK, will need SNU Vitals Vitals Vital Signs Date Time Temp Pulse Resp B/P (MAP) Pulse Ox O2 Delivery O2 Flow Rate FiO2 06/20/18 07:59 99 Nasal Cannula 4.0 06/20/18 07:00 97.9 67 18 144/76 (98) 97.9 Physical Exam General: Alert, Oriented X3, Cooperative, mild distress Lungs: Other (decrease bs) Abdomen: Normal bowel sounds, Soft Extremities: No clubbing, No edema, Normal pulses Skin: No rashes, No significant lesion Assessment and Plan Assessmemt and Plan Problems Medical Problems: (1) Anemia Status: Acute (2) COPD exacerbation Status: Acute (3) Hypoxia Status: Acute (4) Pneumonia Status: Acute (5) Transient respiratory distress with sepsis Status: Acute Comment Review of Relevant I have reviewed the following items [place] (where applicable) has been applied. Labs Laboratory Tests Test 06/18/18 13:15 06/18/18 14:02 06/19/18 04:30 06/19/18 05:00 White Blood Count 9.1 x10^3/uL (4.0-11.0) 6.8 x10^3/uL (4.0-11.0) Red Blood Count 3.52 x10^6/uL (3.50-5.40) 3.31 x10^6/uL (3.50-5.40) Hemoglobin 9.7 g/dL (12.0-15.5) 9.0 g/dL (12.0-15.5) Hematocrit 29.1 % (36.0-47.0) 27.5 % (36.0-47.0) Mean Corpuscular Volume 83 fL (79-100) 83 fL (79-100) Mean Corpuscular Hemoglobin 28 pg (25-35) 27 pg (25-35) Mean Corpuscular Hemoglobin Concent 33 g/dL (31-37) 33 g/dL (31-37) Red Cell Distribution Width 16.9 % (11.5-14.5) 16.8 % (11.5-14.5) Platelet Count 185 x10^3/uL (140-400) 170 x10^3/uL (140-400) Neutrophils (%) (Auto) 67 % (31-73) 83 % (31-73) Lymphocytes (%) (Auto) 21 % (24-48) 12 % (24-48) Monocytes (%) (Auto) 8 % (0-9) 5 % (0-9) Eosinophils (%) (Auto) 3 % (0-3) 0 % (0-3) Basophils (%) (Auto) 1 % (0-3) 0 % (0-3) Neutrophils # (Auto) 6.1 x10^3uL (1.8-7.7) 5.7 x10^3uL (1.8-7.7) Lymphocytes # (Auto) 1.9 x10^3/uL (1.0-4.8) 0.8 x10^3/uL (1.0-4.8) Monocytes # (Auto) 0.7 x10^3/uL (0.0-1.1) 0.3 x10^3/uL (0.0-1.1) Eosinophils # (Auto) 0.3 x10^3/uL (0.0-0.7) 0.0 x10^3/uL (0.0-0.7) Basophils # (Auto) 0.1 x10^3/uL (0.0-0.2) 0.0 x10^3/uL (0.0-0.2) Segmented Neutrophils % 69 % (35-66) Band Neutrophils % 3 % (0-9) Lymphocytes % 21 % (24-48) Monocytes % 2 % (0-10) Eosinophils % 4 % (0-5) Myelocytes % 1 % (0-0) Platelet Estimate Adequate (ADEQUATE) Sodium Level 144 mmol/L (136-145) 143 mmol/L (136-145) Potassium Level 3.8 mmol/L (3.5-5.1) 4.1 mmol/L (3.5-5.1) Chloride Level 105 mmol/L (98-107) 105 mmol/L (98-107) Carbon Dioxide Level 29 mmol/L (21-32) 29 mmol/L (21-32) Anion Gap 10 (6-14) 9 (6-14) Blood Urea Nitrogen 32 mg/dL (7-20) 32 mg/dL (7-20) Creatinine 1.0 mg/dL (0.6-1.0) 1.0 mg/dL (0.6-1.0) Estimated GFR (Cockcroft-Gault) 53.3 53.3 BUN/Creatinine Ratio 32 (6-20) Glucose Level 130 mg/dL (70-99) 148 mg/dL (70-99) Calcium Level 8.3 mg/dL (8.5-10.1) 8.3 mg/dL (8.5-10.1) Magnesium Level 2.0 mg/dL (1.8-2.4) Total Bilirubin 0.3 mg/dL (0.2-1.0) Aspartate Amino Transf (AST/SGOT) 15 U/L (15-37) Alanine Aminotransferase (ALT/SGPT) 23 U/L (14-59) Alkaline Phosphatase 71 U/L (46-116) Troponin I Quantitative < 0.017 ng/mL (0.000-0.055) LH-Hsd-R-Type Natriuretic Peptide 704 pg/mL (0-449) Total Protein 6.0 g/dL (6.4-8.2) Albumin 2.5 g/dL (3.4-5.0) Albumin/Globulin Ratio 0.7 (1.0-1.7) Thyroid Stimulating Hormone (TSH) 6.948 uIU/mL (0.358-3.74) Urine Collection Type Unknown Urine Color Yellow Urine Clarity Clear Urine pH 5.5 Urine Specific [place] 1.015 Urine Protein Negative mg/dL (NEG-TRACE) Urine Glucose (UA) Negative mg/dL (NEG) Urine Ketones (Stick) Negative mg/dL (NEG) Urine Blood Negative (NEG) Urine Nitrite Negative (NEG) Urine Bilirubin Negative (NEG) Urine Urobilinogen Dipstick 0.2 mg/dL (0.2 mg/dL) Urine Leukocyte Esterase Trace (NEG) Urine RBC Occ /HPF (0-2) Urine WBC 1-4 /HPF (0-4) Urine Squamous Epithelial Cells Mod /LPF Urine Bacteria 0 /HPF (0-FEW) Nasal Screen 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) Microbiology 06/18/18 Urine Culture - Final, Complete 06/18/18 Urine Culture Result 1 (VICENTE) - Final, Complete Medications Current Medications Albuterol/ Ipratropium (Duoneb) 3 ml 1X ONCE NEB Last administered on at 13:32; Start 06/18/18 at 13:15; Stop 06/18/18 at 13:16; Status DC Methylprednisolone Sodium Succinate (SOLU-Medrol 125MG VIAL) 125 mg 1X ONCE IV Last administered on 06/18/18at 13:26; Start 06/18/18 at 13:15; Stop 06/18/18 at 13:16; Status DC Ondansetron HCl (Zofran) 4 mg PRN Q8HRS PRN IV NAUSEA/VOMITING; Start 06/18/18 at 16:00; Stop 06/19/18 at 15:59; Status DC Fentanyl Citrate (Fentanyl 2ml Vial) 50 mcg PRN Q2HR PRN IV PAIN; Start at 16:00; Stop 06/19/18 at 15:59; Status DC Acetaminophen (Tylenol) 650 mg PRN Q4HRS PRN PO FEVER; Start 06/18/18 at 16:00 ; Stop 06/19/18 at 15:59; Status DC Albuterol/ Ipratropium (Duoneb) 3 ml RTQID NEB Last administered on 06/19/18at 12:49; Start 06/18/18 at 16:00; Stop 06/19/18 at 15:59; Status DC Methylprednisolone Sodium Succinate (SOLU-Medrol 125MG VIAL) 60 mg DAILY IV Last administered on 06/19/18at 09:10; Start 06/19/18 at 09:00; Stop 06/20/18 at 09:01; Status DC Pharmacy Consult (C.diff Med Screen By Rx) 1 each 1X ONCE MC ; Start 06/18/18 at 19:45; Stop 06/18/18 at 19:46; Status UNV Furosemide (Lasix) 40 mg 1X ONCE IVP Last administered on 06/19/18at 09:10; Start 06/19/18 at 08:00; Stop 06/19/18 at 08:01; Status DC Prednisone (Prednisone) 20 mg 1X ONCE PO Last administered on 06/20/18at 08:37 ; Start 06/20/18 at 08:00; Stop 06/20/18 at 08:01; Status DC Furosemide (Lasix) 40 mg 1X ONCE IVP Last administered on 06/19/18at 16:29; Start 06/19/18 at 13:45; Stop 06/19/18 at 13:46; Status DC Albuterol/ Ipratropium (Duoneb) 3 ml RTQID NEB Last administered on 06/20/18at 07:59; Start 06/19/18 at 20:00 Acetaminophen (Tylenol) 650 mg TID PRN PRN PO PAIN; Start 06/20/18 at 09:15 Aspirin (Ecotrin) 81 mg DAILY PO ; Start 06/20/18 at 10:00 Carvedilol (Coreg) 6.25 mg BIDWMEALS PO ; Start 06/20/18 at 10:00 Ferrous Sulfate (Feosol) 325 mg DAILY PO ; Start 06/20/18 at 10:00 Furosemide (Lasix) 20 mg DAILY PO ; Start 06/20/18 at 10:00 Nystatin (Nystop) 1 rea QID TP ; Start 06/20/18 at 13:00 Non-Formulary Medication (Fluticasone/ Salmeterol (Advair 250-50 Diskus)) 1 puff BID IH ; Start 06/20/18 at 21:00; Stop 06/20/18 at 21:00; Status DC Atorvastatin Calcium (Lipitor) 5 mg QHS PO ; Start 06/20/18 at 21:00 Albuterol Sulfate (Ventolin Neb Soln) 2.5 mg Q6HRS NEB ; Start 06/20/18 at 12:00 ; Stop 06/20/18 at 12:00; Status DC Budesonide (Pulmicort) 0.5 mg RTBID NEB ; Start 06/20/18 at 12:00 Active Scripts Active Furosemide 20 Mg Tablet 20 Mg PO DAILY Nystop (Nystatin) 60 Gm Powder 1 Rea TP QID 30 Days Reported Tylenol (Acetaminophen) 325 Mg Tablet 650 Mg PO TID PRN PRN Aspir 81 (Aspirin) 81 Mg Tablet. 1 Tab PO DAILY Iron Supplement (Ferrous Sulfate) 325 Mg Tablet 1 Tab PO DAILY Advair 250-50 Diskus (Fluticasone/Salmeterol) 1 Each Disk.w.dev 1 Puff IH BID Duoneb 0.5-3(2.5) Mg/3 Ml (Albuterol/Ipratropium) 3 Ml Ampul.neb 3 Ml IH Q4HRS PRN Pravastatin Sodium 10 Mg Tablet 1 Tab PO QHS Carvedilol 6.25 Mg Tablet 1 Tab PO BID Vitals/I & O Vital Sign - Last 24 Hours 06/19/18 06/19/18 06/19/18 06/19/18 11:00 12:49 15:00 16:06 Temp 97.8 97.4 97.8 97.4 Pulse 73 73 Resp 20 20 B/P (MAP) 125/59 (81) 136/61 (86) Pulse Ox 95 97 98 O2 Delivery Nasal Cannula Nasal Cannula Nasal Cannula Nasal Cannula O2 Flow Rate 4.0 4.0 4.0 4.0 06/19/18 06/19/18 06/19/18 06/19/18 19:00 19:36 20:08 22:59 Temp 97.7 97.7 97.7 97.7 Pulse 75 83 Resp 18 18 B/P (MAP) 126/54 (78) 129/55 (79) Pulse Ox 92 95 93 O2 Delivery Nasal Cannula Nasal Cannula Nasal Cannula Nasal Cannula O2 Flow Rate 4.0 4.0 4.0 4.0 06/20/18 06/20/18 06/20/18 02:55 07:00 07:59 Temp 97.9 97.9 97.9 97.9 Pulse 81 67 Resp 18 18 B/P (MAP) 123/65 (84) 144/76 (98) Pulse Ox 97 98 99 O2 Delivery Nasal Cannula Nasal Cannula Nasal Cannula O2 Flow Rate 4.0 4.0 4.0 Intake and Output 06/19/18 06/19/18 06/20/18 15:00 23:00 07:00 Intake Total 840 ml 720 ml Balance 840 ml 720 ml LUKAS DWYER MD Jun 20, 2018 09:35
--- NOTE | 2018-06-20 10:50 | PDOC2 ---
PALLIATIVE CARE Palliative Care Note Palliative Care Consult requested by Dr. Fitch to address goals of care. Patient alert and oriented. John Paul pain or SOB. Medical assessment per medical record; End Stage COPD. Frequent admissions. Patient states she becomes SOB and anxious. On oxygen 4 L at home.. Lives by herself . Refuses to go to her daughters home- --same as conversation on previous admission. Patient has agreed to go to SNU--prefers PP. Declines family meeting. "I just don't like to talk about dying" "I just want to live to enjoy my grandchildren." Discussed Code Status: Requests Full Code. Understands risk of possibly not getting Vent --needing tracheostomy and living in a facility on a machine the rest of her life. Risk of fractured ribs with CPR. She is willing to accept that risk for now Plan: Full code PP skilled per patient wishes. MARY ANN WOODS Jun 20, 2018 10:50
[2018-06-20 11:00] VITALS: BP 142/65
[2018-06-20] MEDS: BUDESONIDE 0.5 MG/2 ML NEBU. NEB SCH ×2 (11:34→20:16)
[2018-06-20] MEDS ORDERED: ALBUTEROL SULFATE 2.5 MG/3 ML NEBU. NEB SCH (12:00)
[2018-06-20 12:05] LABS: CALCIUM 8.6 mg/dL (8.5-10.1); GFR 53.3
[2018-06-20] MEDS: ASPIRIN ENTERIC COATED 81 MG TABLET.DR. PO SCH (12:22)
[2018-06-20] MEDS: CARVEDILOL 6.25 MG TABLET. PO SCH ×2 (12:22→16:54)
[2018-06-20] MEDS: FERROUS SULFATE 325 MG TABLET. PO SCH (12:22)
[2018-06-20] MEDS: FUROSEMIDE 20 MG TABLET PO SCH (12:22)
[2018-06-20] MEDS: NYSTATIN TOPICAL POWDER 15GM BOTTLE. TP SCH ×3 (12:23→20:35)
[2018-06-20 15:00] VITALS: BP 138/69
[2018-06-20 19:00] VITALS: BP 145/62
[2018-06-20] MEDS ORDERED: NON FORMULARY ITEM (Fluticasone/Salmeterol (Advair 250-50 Diskus) 1 PUFF) IH SCH (21:00)
[2018-06-20] MEDS ORDERED: ATORVASTATIN CALCIUM 10 MG TABLET. PO SCH (21:00)
[2018-06-20 23:00] VITALS: BP 125/47
[2018-06-21 03:00] VITALS: BP 151/71
[2018-06-21 07:00] VITALS: BP 140/62
[2018-06-21] MEDS: IPRATRPIUM/ALBUTEROL 0.5/2.5MG 3 ML NEBU. NEB SCH ×3 (07:40→15:23)
[2018-06-21] MEDS: BUDESONIDE 0.5 MG/2 ML NEBU. NEB SCH (07:40)
[2018-06-21] MEDS: FERROUS SULFATE 325 MG TABLET. PO SCH (08:20)
[2018-06-21] MEDS: ASPIRIN ENTERIC COATED 81 MG TABLET.DR. PO SCH (08:21)
[2018-06-21] MEDS: FUROSEMIDE 20 MG TABLET PO SCH (08:21)
[2018-06-21] MEDS: CARVEDILOL 6.25 MG TABLET. PO SCH (08:21)
[2018-06-21] MEDS: NYSTATIN TOPICAL POWDER 15GM BOTTLE. TP SCH ×2 (08:23→13:00)
--- NOTE | 2018-06-21 09:34 | PDOC ---
PROGRESS NOTES Chief Complaint Chief Complaint COPD acute bronchitis chronic hypercarbic and hypoxic respiratory failure weakness and debility Anxiety moderate malnutrition probably tqjuu-nd-cquwjxm cor pulmonale. She does have increasing ankle edema. Mild azotemia, BUN 32. History of Present Illness History of Present Illness multiple admissions to the hospital for the same, Palliative care meeting did not give any changes to plan, still full code with end stage COPD plan SNU Continue present bronchodilators Continue present oxygen. 6 min walk IV steroids with gradual taper, likely to oral tomorrow morning. Leonel p.rDewaynen. Discussed with SW, will need SNU Vitals Vitals Vital Signs Date Time Temp Pulse Resp B/P (MAP) Pulse Ox O2 Delivery O2 Flow Rate FiO2 06/21/18 08:21 64 140/64 06/21/18 07:42 Nasal Cannula 4.0 06/21/18 03:00 96.6 95 96.6 06/20/18 23:00 18 Physical Exam General: Alert, Oriented X3, Cooperative, mild distress Lungs: Other (decrease bs) Abdomen: Normal bowel sounds, Soft Extremities: No clubbing, No edema, Normal pulses Skin: No rashes, No significant lesion Labs LABS Laboratory Tests Test 06/20/18 11:15 Sodium Level 141 mmol/L (136-145) Potassium Level 4.0 mmol/L (3.5-5.1) Chloride Level 102 mmol/L (98-107) Carbon Dioxide Level 32 mmol/L (21-32) Anion Gap 7 (6-14) Blood Urea Nitrogen 35 mg/dL (7-20) Creatinine 1.0 mg/dL (0.6-1.0) Estimated GFR (Cockcroft-Gault) 53.3 Glucose Level 152 mg/dL (70-99) Calcium Level 8.6 mg/dL (8.5-10.1) Assessment and Plan Assessmemt and Plan Problems Medical Problems: (1) Anemia Status: Acute (2) COPD exacerbation Status: Acute (3) Hypoxia Status: Acute (4) Pneumonia Status: Acute (5) Transient respiratory distress with sepsis Status: Acute Comment Review of Relevant I have reviewed the following items [place] (where applicable) has been applied. Labs Laboratory Tests Test 06/20/18 11:15 Sodium Level 141 mmol/L (136-145) Potassium Level 4.0 mmol/L (3.5-5.1) Chloride Level 102 mmol/L (98-107) Carbon Dioxide Level 32 mmol/L (21-32) Anion Gap 7 (6-14) Blood Urea Nitrogen 35 mg/dL (7-20) Creatinine 1.0 mg/dL (0.6-1.0) Estimated GFR (Cockcroft-Gault) 53.3 Glucose Level 152 mg/dL (70-99) Calcium Level 8.6 mg/dL (8.5-10.1) Laboratory Tests Test 06/20/18 11:15 Sodium Level 141 mmol/L (136-145) Potassium Level 4.0 mmol/L (3.5-5.1) Chloride Level 102 mmol/L (98-107) Carbon Dioxide Level 32 mmol/L (21-32) Anion Gap 7 (6-14) Blood Urea Nitrogen 35 mg/dL (7-20) Creatinine 1.0 mg/dL (0.6-1.0) Estimated GFR (Cockcroft-Gault) 53.3 Glucose Level 152 mg/dL (70-99) Calcium Level 8.6 mg/dL (8.5-10.1) Microbiology 06/18/18 Urine Culture - Final, Complete 06/18/18 Urine Culture Result 1 (VICENTE) - Final, Complete Medications Current Medications Albuterol/ Ipratropium (Duoneb) 3 ml 1X ONCE NEB Last administered on at 13:32; Start 06/18/18 at 13:15; Stop 06/18/18 at 13:16; Status DC Methylprednisolone Sodium Succinate (SOLU-Medrol 125MG VIAL) 125 mg 1X ONCE IV Last administered on 06/18/18at 13:26; Start 06/18/18 at 13:15; Stop 06/18/18 at 13:16; Status DC Ondansetron HCl (Zofran) 4 mg PRN Q8HRS PRN IV NAUSEA/VOMITING; Start 06/18/18 at 16:00; Stop 06/19/18 at 15:59; Status DC Fentanyl Citrate (Fentanyl 2ml Vial) 50 mcg PRN Q2HR PRN IV PAIN; Start at 16:00; Stop 06/19/18 at 15:59; Status DC Acetaminophen (Tylenol) 650 mg PRN Q4HRS PRN PO FEVER; Start 06/18/18 at 16:00 ; Stop 06/19/18 at 15:59; Status DC Albuterol/ Ipratropium (Duoneb) 3 ml RTQID NEB Last administered on 06/19/18at 12:49; Start 06/18/18 at 16:00; Stop 06/19/18 at 15:59; Status DC Methylprednisolone Sodium Succinate (SOLU-Medrol 125MG VIAL) 60 mg DAILY IV Last administered on 06/19/18at 09:10; Start 06/19/18 at 09:00; Stop 06/20/18 at 09:01; Status DC Pharmacy Consult (C.diff Med Screen By Rx) 1 each 1X ONCE [facility] ; Start 06/18/18 at 19:45; Stop 06/18/18 at 19:46; Status UNV Furosemide (Lasix) 40 mg 1X ONCE IVP Last administered on 06/19/18at 09:10; Start 06/19/18 at 08:00; Stop 06/19/18 at 08:01; Status DC Prednisone (Prednisone) 20 mg 1X ONCE PO Last administered on 06/20/18at 08:37 ; Start 06/20/18 at 08:00; Stop 06/20/18 at 08:01; Status DC Furosemide (Lasix) 40 mg 1X ONCE IVP Last administered on 06/19/18at 16:29; Start 06/19/18 at 13:45; Stop 06/19/18 at 13:46; Status DC Albuterol/ Ipratropium (Duoneb) 3 ml RTQID NEB Last administered on 06/21/18at 07:40; Start 06/19/18 at 20:00 Acetaminophen (Tylenol) 650 mg TID PRN PRN PO PAIN; Start 06/20/18 at 09:15 Aspirin (Ecotrin) 81 mg DAILY PO Last administered on 06/21/18 08:21; Start 06/20/18 at 10:00 Carvedilol (Coreg) 6.25 mg BIDWMEALS PO Last administered on 06/21/18 08:21; Start 06/20/18 at 10:00 Ferrous Sulfate (Feosol) 325 mg DAILY PO Last administered on 06/21/18at 08:20; Start 06/20/18 at 10:00 Furosemide (Lasix) 20 mg DAILY PO Last administered on 10/4/18at 08:21; Start 06/20/18 at 10:00 Nystatin (Nystop) 1 rea QID TP Last administered on 06/21/18at 08:23; Start 06/20/18 at 13:00 Non-Formulary Medication (Fluticasone/ Salmeterol (Advair 250-50 Diskus)) 1 puff BID IH ; Start 06/20/18 at 21:00; Stop 06/20/18 at 21:00; Status DC Atorvastatin Calcium (Lipitor) 5 mg QHS PO Last administered on 06/20/18at 20:35 ; Start 06/20/18 at 21:00 Albuterol Sulfate (Ventolin Neb Soln) 2.5 mg Q6HRS NEB ; Start 06/20/18 at 12:00 ; Stop 06/20/18 at 12:00; Status DC Budesonide (Pulmicort) 0.5 mg RTBID NEB Last administered on 06/21/18at 07:40; Start 06/20/18 at 12:00 Active Scripts Active Furosemide 20 Mg Tablet 20 Mg PO DAILY Nystop (Nystatin) 60 Gm Powder 1 Rea TP QID 30 Days Reported Tylenol (Acetaminophen) 325 Mg Tablet 650 Mg PO TID PRN PRN Aspir 81 (Aspirin) 81 Mg Tablet. 1 Tab PO DAILY Iron Supplement (Ferrous Sulfate) 325 Mg Tablet 1 Tab PO DAILY Advair 250-50 Diskus (Fluticasone/Salmeterol) 1 Each Disk.w.dev 1 Puff IH BID Duoneb 0.5-3(2.5) Mg/3 Ml (Albuterol/Ipratropium) 3 Ml Ampul.neb 3 Ml IH Q4HRS PRN Pravastatin Sodium 10 Mg Tablet 1 Tab PO QHS Carvedilol 6.25 Mg Tablet 1 Tab PO BID Vitals/I & O Vital Sign - Last 24 Hours 06/20/18 06/20/18 06/20/18 06/20/18 11:00 11:35 12:22 15:00 Temp 98.1 97.9 98.1 97.9 Pulse 71 71 79 Resp 18 18 B/P (MAP) 142/65 (90) 142/65 138/69 (92) Pulse Ox 96 99 93 O2 Delivery Nasal Cannula Nasal Cannula Nasal Cannula O2 Flow Rate 4.0 4.0 4.0 06/20/18 06/20/18 06/20/18 06/20/18 15:38 16:54 19:00 19:31 Temp 97.5 97.5 Pulse 84 72 Resp 18 B/P (MAP) 124/60 145/62 (89) Pulse Ox 93 O2 Delivery Nasal Cannula Nasal Cannula Nasal Cannula O2 Flow Rate 4.0 4.0 4.0 06/20/18 06/20/18 06/21/18 06/21/18 20:17 23:00 03:00 07:42 Temp 97.9 96.6 97.9 96.6 Pulse 74 71 Resp 18 B/P (MAP) 125/47 (73) 151/71 (97) Pulse Ox 98 96 95 O2 Delivery Nasal Cannula Nasal Cannula Nasal Cannula Nasal Cannula O2 Flow Rate 4.0 4.0 4.0 4.0 06/21/18 08:21 Pulse 64 B/P (MAP) 140/64 Intake and Output 06/20/18 06/20/18 06/21/18 15:00 23:00 07:00 Intake Total 300 ml 640 ml Balance 300 ml 640 ml LUKAS DWYER MD Jun 21, 2018 09:34
[2018-06-21] MEDS ORDERED: PRED-220 PO (10:17)
--- NOTE | 2018-06-21 10:18 | DISCH ---
DISCHARGE DISCHARGE INFORMATION: DISCHARGE DATE: Jun 21, 2018 FINAL DIAGNOSIS Problems Medical Problems: (1) Anemia Status: Acute (2) COPD exacerbation Status: Acute (3) Hypoxia Status: Acute (4) Pneumonia Status: Acute (5) Transient respiratory distress with sepsis Status: Acute CONDITION ON DISCHARGE: Stable CODE STATUS: Code Status: Full MCFP: SNF STAY <30 DAYS: Yes POST DISCHARGE ORDERS: ACTIVITY ORDERS: Activity as tolerated WEIGHT BEARING STATUS: As tolerated DIET AFTER DISCHARGE: Cardiac CHECKS AFTER DISCHARGE: CHECKS AFTER DISCHARGE: Check blood press - daily, Weigh Yourself Daily FOLLOW-UP: PHYSICIAN FOLLOW-UP: Dr. Shipley, < 2 weeks ADDITIONAL FOLLOW-UP: resp therapy TREATMENT/EQUIPMENT ORDERS: ADAPTIVE EQUIPMENT NEEDED: None, Front wheeled walker RESPIRATORY EQUIPMENT NEEDED: Oxygen Physical Therapy For: Evalulation/Treatment Occupational Therapy For: Evaluation/Treatment Speech Language Pathology For: Evaluation/Treatment DISCHARGE MEDICATIONS: Home Meds Active Scripts Prednisone (PREDNISONE ) 10 Mg Tablet, 10 MG PO UD, #30 TAB 0 Refills Take 5 tablets by mouth daily for 2 days, then take 4 tablets by mouth daily for 2 days, then take 3 tablets by mouth daily for 2 days, then take 2 tablets by mouth daily for 2 days, then take 1 tablets by mouth daily for 2 days, then stop. Prov:LUKAS DWYER MD 06/21/18 Furosemide (FUROSEMIDE) 20 Mg Tablet, 20 MG PO DAILY, #30 TAB Prov:LUKAS DWYER MD 02/21/18 Nystatin (NYSTOP) 60 Gm Powder, 1 [place] TP QID for 30 Days, [facility] [facility] [place]TESS LOZANO MD 01/02/18 Reported Medications Acetaminophen (TYLENOL) 325 Mg Tablet, 650 MG PO TID PRN PRN for PAIN 04/11/16 Aspirin (ASPIR 81) 81 Mg Tablet., 1 TAB PO DAILY, #30 TAB 5 Refills 04/11/16 Ferrous Sulfate (IRON SUPPLEMENT) 325 Mg Tablet, 1 TAB PO DAILY, #30 TAB 10 Refills 11/10/15 Fluticasone/Salmeterol (ADVAIR 250-50 DISKUS) 1 Each Disk.w.dev, 1 PUFF IH BID, #3 INHALER 3 Refills 05/06/15 Ipratropium/Albuterol Sulfate (DUONEB 0.5-3(2.5) MG/3 ML) 3 Ml Ampul.neb, 3 ML IH Q4HRS PRN for CONGESTION 05/06/15 Pravastatin Sodium (PRAVASTATIN SODIUM) 10 Mg Tablet, 1 TAB PO QHS, #30 TAB 5 Refills 09/16/14 Carvedilol (CARVEDILOL) 6.25 Mg Tablet, 1 TAB PO BID, #180 TAB 1 Refill 09/16/14 LUKAS DWYER MD Jun 21, 2018 10:18
--- NOTE | 2018-06-21 10:23 | PDOC3 ---
Discharge Summary Visit Information Date of Admission: Jun 18, 2018 Date of Discharge: Jun 21, 2018 Admitting Diagnosis: COPD AE Final Diagnosis COPD acute bronchitis chronic hypercarbic and hypoxic respiratory failure weakness and debility Anxiety moderate malnutrition probably bgvjz-jb-xrcwoks cor pulmonale. She does have increasing ankle edema. Mild azotemia, BUN 32. Problems Medical Problems: (1) Anemia Status: Acute (2) COPD exacerbation Status: Acute (3) Hypoxia Status: Acute (4) Pneumonia Status: Acute (5) Transient respiratory distress with sepsis Status: Acute Brief Hospital Course Allergies Allergies Coded Allergies Type Severity Reaction Last Updated Verified doxycycline Allergy Intermediate Rash 02/16/18 Yes I S O L A T I O N *CONTACT* Allergy Unknown 12/12/16 Yes Vital Signs Vital Signs Date Time Temp Pulse Resp B/P (MAP) Pulse Ox O2 Delivery O2 Flow Rate FiO2 06/21/18 08:21 64 140/64 06/21/18 08:00 Nasal Cannula 4.0 06/21/18 07:00 97.4 22 99 97.4 Lab Results Laboratory Tests Test 06/20/18 11:15 Sodium Level 141 mmol/L (136-145) Potassium Level 4.0 mmol/L (3.5-5.1) Chloride Level 102 mmol/L (98-107) Carbon Dioxide Level 32 mmol/L (21-32) Anion Gap 7 (6-14) Blood Urea Nitrogen 35 mg/dL (7-20) Creatinine 1.0 mg/dL (0.6-1.0) Estimated GFR (Cockcroft-Gault) 53.3 Glucose Level 152 mg/dL (70-99) Calcium Level 8.6 mg/dL (8.5-10.1) Laboratory Tests Test 06/20/18 11:15 Sodium Level 141 mmol/L (136-145) Potassium Level 4.0 mmol/L (3.5-5.1) Chloride Level 102 mmol/L (98-107) Carbon Dioxide Level 32 mmol/L (21-32) Anion Gap 7 (6-14) Blood Urea Nitrogen 35 mg/dL (7-20) Creatinine 1.0 mg/dL (0.6-1.0) Estimated GFR (Cockcroft-Gault) 53.3 Glucose Level 152 mg/dL (70-99) Calcium Level 8.6 mg/dL (8.5-10.1) Brief Hospital Course Ms. Efren is a 78 old admit COPD AE, anxiety provokes, dyspnea with right heart failure, acute, better wtih IV lasix difficulty pulm balance, no code and palliative suggested, she declined both , will try SNU Continue present bronchodilators Continue present oxygen. steroids with taper, Lasix p.r.n. D Discharge Information Condition at Discharge: Improved Follow Up: Weeks Disposition/Orders: D/C to Another Facility (SNU) Scheduled Aspirin (Aspir 81) 81 Mg Tablet.dr, 1 TAB PO DAILY, #30 Ref 5 (Reported) Entered as Reported by: MERCEDES CARDONA on 04/11/169 Last Action: Continued on 06/20/18901 by LUKAS DWYER Carvedilol (Carvedilol) 6.25 Mg Tablet, 1 TAB PO BID, #180 Ref 1 (Reported) Entered as Reported by: MARTIN MORALES on 09/16/142013 Last Action: Continued on 06/20/18901 by LUKAS DWYER Ferrous Sulfate (Iron Supplement) 325 Mg Tablet, 1 TAB PO DAILY, #30 Ref 10 ( Reported) Entered as Reported by: Shweta Luevano on 11/10/15 2316 Last Action: Continued on 06/20/18901 by LUKAS DWYER Fluticasone/Salmeterol (Advair 250-50 Diskus) 1 Each Disk.w.dev, 1 PUFF IH BID, #3 Ref 3 (Reported) Entered as Reported by: DE ALEJANDRO on 05/06/15 0636 Last Action: Converted on 06/20/18901 by LUKAS DWYER Furosemide (Furosemide) 20 Mg Tablet, 20 MG PO DAILY, #30 Prescribed by: LUKAS DWYER on 02/21/18 0856 Last Action: Continued on 06/20/18901 by LUKAS DWYER Nystatin (Nystop) 60 Gm Powder, 1 LETICIA TP QID for 30 Days Prescribed by: TESS LOZANO on 01/02/18 1106 Last Action: Continued on 06/20/18901 by LUKAS DWYER Pravastatin Sodium (Pravastatin Sodium) 10 Mg Tablet, 1 TAB PO QHS, #30 Ref 5 ( Reported) Entered as Reported by: MARTIN MORALES on 09/16/142013 Last Action: Converted on 06/20/18901 by LUKAS DWYER Prednisone (Prednisone ) 10 Mg Tablet, 10 MG PO UD, #30 Ref 0 Take 5 tablets by mouth daily for 2 days, then take 4 tablets by mouth daily for 2 days, then take 3 tablets by mouth daily for 2 days, then take 2 tablets by mouth daily for 2 days, then take 1 tablets by mouth daily for 2 days, then stop. Prescribed by: LUKAS DWYER on 06/21/18 1017 Scheduled PRN Acetaminophen (Tylenol) 325 Mg Tablet, 650 MG PO TID PRN PRN for PAIN, (Reported ) Entered as Reported by: MERCEDES CARDONA on 04/11/16 2240 Last Action: Continued on 06/20/18901 by LUKAS DWYER Ipratropium/Albuterol Sulfate (Duoneb 0.5-3(2.5) Mg/3 Ml) 3 Ml Ampul.neb, 3 ML IH Q4HRS PRN for CONGESTION, (Reported) Entered as Reported by: DE ALEJANDRO on 05/06/15 0635 Last Action: HELD on 06/20/18901 by LUKAS DWYER Patient Instructions Patient Instructions > 30 min face to face LUKAS DWYER MD Jun 21, 2018 10:23
[2018-06-21 11:00] VITALS: BP 124/58
--- NOTE | 2018-06-21 11:28 | PDOC ---
PULMONARY PROGRESS NOTES Subjective feels better Vitals Vital Signs Date Time Temp Pulse Resp B/P (MAP) Pulse Ox O2 Delivery O2 Flow Rate FiO2 06/21/18 08:21 64 140/64 06/21/18 08:00 Nasal Cannula 4.0 06/21/18 07:00 97.4 22 99 97.4 General: Alert, No acute distress Lungs: Other (decrease bs) Cardiovascular: S1, S2 Abdomen: Soft, Non-tender Neuro Exam: Alert Extremities: Other (2+edema) Skin: Warm Labs Laboratory Tests Test 06/20/18 11:15 Sodium Level 141 mmol/L (136-145) Potassium Level 4.0 mmol/L (3.5-5.1) Chloride Level 102 mmol/L (98-107) Carbon Dioxide Level 32 mmol/L (21-32) Anion Gap 7 (6-14) Blood Urea Nitrogen 35 mg/dL (7-20) Creatinine 1.0 mg/dL (0.6-1.0) Estimated GFR (Cockcroft-Gault) 53.3 Glucose Level 152 mg/dL (70-99) Calcium Level 8.6 mg/dL (8.5-10.1) Medications Active Scripts Medications Dose Route/Sig Max Daily Dose Days Date Category Furosemide 20 Mg Tablet 20 Mg PO DAILY 02/21/18 Rx Nystop (Nystatin) 60 Gm Powder 1 Rea TP QID 30 01/02/18 Rx Tylenol (Acetaminophen) 325 Mg Tablet 650 Mg PO TID PRN PRN 04/11/16 Reported Aspir 81 (Aspirin) 81 Mg Tablet.dr 1 Tab PO DAILY 04/11/16 Reported Iron Supplement (Ferrous Sulfate) 325 Mg Tablet 1 Tab PO DAILY 11/10/15 Reported Advair 250-50 Diskus (Fluticasone/Salmeterol) 1 Each Disk.w.dev 1 Puff IH BID 05/06/15 Reported Duoneb 0.5-3(2.5) Mg/3 Ml (Albuterol/Ipratropium) 3 Ml Ampul.neb 3 Ml IH Q4HRS PRN 05/06/15 Reported Pravastatin Sodium 10 Mg Tablet 1 Tab PO QHS 09/16/14 Reported Carvedilol 6.25 Mg Tablet 1 Tab PO BID 09/16/14 Reported Impression . 1. Uhqjb-jm-ijzjyil respiratory failure related to acute exacerbation of chronic obstructive pulmonary disease and probably voeqa-zh-oeegsqo cor pulmonale. She does have increasing ankle edema. 2. Abnormal chest x-ray, but appears to be unchanged from previous films. She has parenchymal scarring bilaterally along with left lower lobe atelectasis. Clinically, less likely pneumonia. 3. Mild azotemia. 4. Hhgnewmb-fi-qqzhhp protein-calorie malnutrition. 5. Hypothyroidism with mildly increased TSH level. Plan . 1. Discussed with the patient the importance of rehabilitation therapy as she is hospitalized every other week. she is finally agreeable 2. will need 6 min walk on 4 litres 3. Continue present bronchodilators. 4. Continue present oxygen. 5. steroids with gradual taper. 6. Lasix p.r.n. 7. Discussed with RN./ ok with dc to [facility] Goldman MD Jun 21, 2018 11:28
== END 2018-06-21 15:50 | DRG 871 ==
LOC: ER 12:40 → 5 NORTH 15:30
PROVIDERS: ADMIT Internal Medicine; ATTEND Internal Medicine
DX: A41.9 Sepsis, unspecified organism (principal); J96.21 Acute and chronic respiratory failure with hypoxia; E43 Unspecified severe protein-calorie malnutrition; J18.9 Pneumonia, unspecified organism; I26.09 Other pulmonary embolism with acute cor pulmonale; J96.22 Acute and chronic respiratory failure with hypercapnia; I50.33 Acute on chronic diastolic (congestive) heart failure; J44.0 Chronic obstructive pulmonary disease with (acute) lower respiratory infection; J44.1 Chronic obstructive pulmonary disease with (acute) exacerbation; J98.11 Atelectasis; G62.9 Polyneuropathy, unspecified; M19.90 Unspecified osteoarthritis, unspecified site; D64.9 Anemia, unspecified; Z51.5 Encounter for palliative care; E03.9 Hypothyroidism, unspecified; F41.9 Anxiety disorder, unspecified; I25.10 Atherosclerotic heart disease of native coronary artery without angina pectoris; I50.810 Right heart failure, unspecified; J20.9 Acute bronchitis, unspecified; Z82.49 Family history of ischemic heart disease and other diseases of the circulatory system; Z68.31 Body mass index [BMI] 31.0-31.9, adult; Z87.891 Personal history of nicotine dependence; Z99.81 Dependence on supplemental oxygen; Z90.49 Acquired absence of other specified parts of digestive tract; Z88.1 Allergy status to other antibiotic agents
CPT/HCPCS: 36415; 71045; 80048; 80053; 81001; 83735; 83880; 84443; 84484; 85007; 85025; 87086; 87641; 93005; 94618; 94640; 94760; 96374; J1940; J2930; J7512; J7620; J7626; 97110; 97116; 97530; 97535; 99285-25

== ENCOUNTER 2018-07-07 19:52 | Inpatient (IN) | payer MEDICARE, OTHER ==
[~2018-07-07] VITALS: Ht 154.9 cm; Wt 79.4 kg
[2018-07-07] MEDS ORDERED: NYSTATIN TOPICAL POWDER 15GM BOTTLE. TP STA (20:06)
--- NOTE | 2018-07-07 20:07 | PHYS DOC ---
Past Medical History Past Medical History: COPD Past Surgical History: Cholecystectomy Alcohol Use: None Drug Use: None Adult General HPI HPI Patient is a 78 year old female brought in by embolus with shortness of breath she has a history of frequent admissions for end-stage COPD on her last admission she refused a DNR. She is presenting with progresses or shortness of breath for the last couple of days. She has been coughing more no fever that she knows of overall history is somewhat limited by the patient's moderate tachypnea. She said she had some chest pain earlier today but she does not remember when and she is unable to quantify it in any specific way. Review of Systems Review of Systems History is limited by the patient's respiratory distress Current Medications Current Medications Current Medications Medications (Trade) Dose Ordered Sig/Eva Start Time Stop Time Status Last Admin Dose Admin Albuterol Sulfate (Ventolin Neb Soln) 10 mg 1X ONCE 07/07/18 20:30 07/07/18 20:31 DC 07/07/18 21:26 10 MG Albuterol/ Ipratropium (Duoneb) 3 ml RTQID 07/08/18 08:00 07/09/18 07:59 Furosemide (Lasix) 40 mg 1X ONCE 07/07/18 22:15 07/07/18 22:16 DC 07/07/18 22:15 40 MG Methylprednisolone Sodium Succinate (SOLU-Medrol 125MG VIAL) 125 mg 1X ONCE 07/07/18 20:30 07/07/18 20:31 DC 07/07/18 20:39 125 MG Nystatin (Nystop) 1 jaison 1X STAT 07/07/18 20:06 07/07/18 20:15 DC 07/07/18 20:40 1 JAISON Piperacillin Sod/ Tazobactam Sod (Zosyn Per Pharmacy) 1 each PRN DAILY PRN 07/07/18 22:00 UNV Piperacillin Sod/ Tazobactam Sod 2.25 gm/Sodium Chloride 50 ml @ 100 mls/hr ONCE ONCE 07/07/18 22:00 07/07/18 22:29 07/07/18 22:12 100 MLS/HR Vancomycin HCl (Vanco Per Pharmacy) 1 each PRN DAILY PRN 07/07/18 22:00 UNV Vancomycin HCl 2 gm/Sodium Chloride 500 ml @ 250 mls/hr 1X ONCE 07/07/18 22:00 07/07/18 23:59 07/07/18 22:15 250 MLS/HR Allergies Allergies Allergies Coded Allergies Type Severity Reaction Last Updated Verified doxycycline Allergy Intermediate Rash 02/16/18 Yes I S O L A T I O N *CONTACT* Allergy Unknown 12/12/16 Yes Physical Exam Physical Exam Constitutional: Well developed, moderately ill-appearing tachypnea. HENT: Normocephalic, atraumatic, bilateral external ears normal, oropharynx dry , no oral exudates, nose normal. [] Eyes: PERRLA, EOMI, conjunctiva normal, no discharge. [] Neck: Normal range of motion, no tenderness, supple, no stridor. [] Cardiovascular:Heart rate regular rhythm, difficult murmur exam due to respiratory Lungs & Thorax: Diffuse wheezing with prolonged expiratory phase bilaterally patient has tachypnea speaking very short sentences reactive cough noted Abdomen: Bowel sounds normal, soft, no tenderness, no masses, no pulsatile masses. [] Skin: Warm, dry, no erythema, significant erythematous malodorous rash to groin looks like yeast Back: No tenderness, no CVA tenderness. [] Extremities: No tenderness, no cyanosis, no clubbing, ROM intact, 1 to 2 edema noted b/l Neurologic: Alert and oriented X 3, normal motor function, normal sensory function, no focal deficits noted. [] Psychologic: Affect normal, judgement normal, mood normal. [] Current Patient Data Vital Signs Vital Signs Date Time Temp Pulse Resp B/P (MAP) Pulse Ox O2 Delivery O2 Flow Rate FiO2 07/07/18 21:38 93 Nasal Cannula 2.0 07/07/18 21:33 80 133/60 (84) 07/07/18 19:52 98.4 32 98.4 Lab Values Laboratory Tests Test 07/07/18 20:30 07/07/18 20:41 07/07/18 21:00 White Blood Count 7.7 x10^3/uL (4.0-11.0) Red Blood Count 3.38 x10^6/uL (3.50-5.40) L Hemoglobin 9.4 g/dL (12.0-15.5) L Hematocrit 28.5 % (36.0-47.0) L Mean Corpuscular Volume 84 fL (79-100) Mean Corpuscular Hemoglobin 28 pg (25-35) Mean Corpuscular Hemoglobin Concent 33 g/dL (31-37) Red Cell Distribution Width 17.4 % (11.5-14.5) H Platelet Count 151 x10^3/uL (140-400) Neutrophils (%) (Auto) 67 % (31-73) Lymphocytes (%) (Auto) 18 % (24-48) L Monocytes (%) (Auto) 11 % (0-9) H Eosinophils (%) (Auto) 3 % (0-3) Basophils (%) (Auto) 1 % (0-3) Neutrophils # (Auto) 5.1 x10^3uL (1.8-7.7) Lymphocytes # (Auto) 1.4 x10^3/uL (1.0-4.8) Monocytes # (Auto) 0.8 x10^3/uL (0.0-1.1) Eosinophils # (Auto) 0.2 x10^3/uL (0.0-0.7) Basophils # (Auto) 0.1 x10^3/uL (0.0-0.2) Prothrombin Time 14.0 SEC (11.7-14.0) Prothrombin Time INR 1.1 (0.8-1.1) Sodium Level 143 mmol/L (136-145) Potassium Level 4.3 mmol/L (3.5-5.1) Chloride Level 104 mmol/L (98-107) Carbon Dioxide Level 31 mmol/L (21-32) Anion Gap 8 (6-14) Blood Urea Nitrogen 25 mg/dL (7-20) H Creatinine 1.2 mg/dL (0.6-1.0) H Estimated GFR (Cockcroft-Gault) 43.2 BUN/Creatinine Ratio 21 (6-20) H Glucose Level 115 mg/dL (70-99) H Calcium Level 8.1 mg/dL (8.5-10.1) L Total Bilirubin 0.5 mg/dL (0.2-1.0) Aspartate Amino Transferase (AST) 14 U/L (15-37) L Alanine Aminotransferase (ALT) 14 U/L (14-59) Alkaline Phosphatase 69 U/L (46-116) Troponin I Quantitative < 0.017 ng/mL (0.000-0.055) OB-Gwt-Y-Type Natriuretic Peptide 1141 pg/mL (0-449) H Total Protein 6.3 g/dL (6.4-8.2) L Albumin 2.3 g/dL (3.4-5.0) L Albumin/Globulin Ratio 0.6 (1.0-1.7) L Procalcitonin < 0.10 ng/mL (0.00-0.10) Influenza Type A Antigen Negative (NEGATIVE) Influenza Type B Antigen Negative (NEGATIVE) Urine Collection Type Unknown Urine Color Yellow Urine Clarity Clear Urine pH 5.5 Urine Specific [place] 1.015 Urine Protein Negative mg/dL (NEG-TRACE) Urine Glucose (UA) Negative mg/dL (NEG) Urine Ketones (Stick) Negative mg/dL (NEG) Urine Blood Negative (NEG) Urine Nitrite Negative (NEG) Urine Bilirubin Negative (NEG) Urine Urobilinogen Dipstick 2.0 mg/dL (0.2 mg/dL) Urine Leukocyte Esterase Negative (NEG) Urine RBC Occ /HPF (0-2) Urine WBC Rare /HPF (0-4) Urine Squamous Epithelial Cells Few /LPF Urine Bacteria 0 /HPF (0-FEW) Urine Hyaline Casts Few /HPF Urine Mucus Mod /LPF Laboratory Tests 07/07/18 20:30 Laboratory Tests 07/07/18 20:30 EKG EKG [] Interpretation Time: eks nsr rate 73 no ischemia no stemi Radiology/Procedures Radiology/Procedures [] Impressions: cxr possible effusion or consolidation right base positioning poor quality but consider worsening then previous Course & Med Decision Making Course & Med Decision Making Pertinent Labs and Imaging studies reviewed. (See chart for details) []78 yo f with endstage copd, on home oxygen, frequent admission, p/w biba with sob and found to have mild to moderate tachypnea with wheezing, suspect recurrent copd. pt treated in er. will admit for observation and further treatent. considered chf less likely, trop for acs, probably not pe given lung sounds and long recurrent history. called and left msg for daughter given most recent palliative note will make fullcode for now noted cxr, possible persistent pleural effusion/consolidation so will give abx as well noted bnp add dose of furosemide. d/w riffel for admit for the above. Dragon Disclaimer Dragon Disclaimer This electronic medical record was generated, in whole or in part, using a voice recognition dictation system. Departure Departure Impression: Primary Impression: COPD exacerbation Disposition: ADMITTED INPATIENT Admitting Physician: Other Condition: STABLE Referrals: AMISHA HADRY MD (PCP) MOO GALAN MD Jul 07, 2018 20:07
[2018-07-07] MEDS ORDERED: methylPREDNISolone SOD SUCC PF 125 MG/2 ML VIAL. IV ONE (20:30)
[2018-07-07] MEDS ORDERED: ALBUTEROL SULFATE 2.5 MG/3 ML NEBU. CONT NEB ONE (20:30)
[2018-07-07 20:43] LABS: BASO # 0.1 x10^3/uL (0.0-0.2); BASO % 1 % (0-3); EOS # 0.2 x10^3/uL (0.0-0.7); EOS % 3 % (0-3); HEMATOCRIT 28.5 % (36.0-47.0); HEMOGLOBIN 9.4 g/dL (12.0-15.5); LYMPH # 1.4 x10^3/uL (1.0-4.8); LYMPH % 18 % (24-48); MEAN CORPUSCULAR HEMOGLOBIN 28 pg (25-35); MEAN CORPUSCULAR HGB CONC 33 g/dL (31-37); MEAN CORPUSCULAR VOLUME 84 fL (79-100); MONO # 0.8 x10^3/uL (0.0-1.1); MONO % 11 % (0-9); NEUT # 5.1 x10^3uL (1.8-7.7); NEUT % 67 % (31-73); PLATELET COUNT 151 x10^3/uL (140-400); RED BLOOD COUNT 3.38 x10^6/uL (3.50-5.40); RED CELL DISTRIBUTION WIDTH 17.4 % (11.5-14.5); WHITE BLOOD COUNT 7.7 x10^3/uL (4.0-11.0)
[2018-07-07 20:59] LABS: CALCIUM 8.1 mg/dL (8.5-10.1); CREATININE 1.2 mg/dL (0.6-1.0); GFR 43.2; POTASSIUM 4.3 mmol/L (3.5-5.1)
[2018-07-07 21:05] LABS: ALBUMIN 2.3 g/dL (3.4-5.0); ALBUMIN/GLOBULIN RATIO 0.6 (1.0-1.7); TOTAL BILIRUBIN 0.5 mg/dL (0.2-1.0); TOTAL PROTEIN 6.3 g/dL (6.4-8.2)
[2018-07-07 21:07] LABS: BILIRUBIN,URINE NEGATIVE (NEG); CLARITY,URINE CLEAR; COLOR,URINE YELLOW; NITRITE,URINE NEGATIVE (NEG); PH,URINE 5.5; PROTEIN,URINE NEGATIVE (NEG-TRACE)
[2018-07-07 21:10] LABS: INFLUENZA A PATIENT NEGATIVE (NEGATIVE); INFLUENZA B PATIENT NEGATIVE (NEGATIVE)
[2018-07-07 21:15] LABS: BACTERIA,URINE 0 /HPF (0-FEW); RBC,URINE OCC /HPF (0-2); SQUAMOUS EPITHELIAL CELL,UR FEW /LPF; WBC,URINE RARE /HPF (0-4)
[2018-07-07 21:16] LABS: HYALINE CASTS, URINE FEW /HPF
[2018-07-07] MEDS ORDERED: PIP/TAZO PER PHARMACY MC PRN ×2 (22:00→22:45)
[2018-07-07] MEDS ORDERED: VANCOMYCIN PER PHARMACY MC PRN (22:00)
[2018-07-07] MEDS ORDERED: VANCOMYCIN 2 GM in IV NORMAL SALINE 500ML BAG 500 ML IV ONE (22:00)
[2018-07-07] MEDS ORDERED: PIPERACILLIN/TAZOBACTAM 2.25 GM in IV NORMAL SALINE 50ML 50 ML IV ONE (22:00)
[2018-07-07] MEDS ORDERED: FUROSEMIDE 40 MG/4 ML VIAL. IVP ONE (22:15)
[2018-07-08 03:00] VITALS: BP 143/49
[2018-07-08] MEDS ORDERED: PIPERACILLIN/TAZOBACTAM 2.25 GM in IV NORMAL SALINE 50ML 50 ML IV SCH (06:00)
[2018-07-08 07:00] VITALS: BP 124/59
[2018-07-08 07:51] LABS: CREATININE 1.2 mg/dL (0.6-1.0); GFR 43.2
--- NOTE | 2018-07-08 07:55 | RAD ---
PORTABLE CHEST 1V INDICATION: Short of breath, hx of COPD COMPARISON: Chest radiograph dated 06/18/2018 FINDINGS: Patient is rotated to the right. Low right lung volume. Unchanged right greater than left basilar predominant chronic interstitial opacities. Allowing for patient rotation, no new consolidation. Unchanged pulmonary vasculature. No new pleural effusion or pneumothorax. Allowing for rotation, the cardiomediastinal silhouette and great vessels are unchanged. Remote granulomatous disease. Advanced right shoulder arthrosis. No acute osseous abnormality. IMPRESSION: Allowing for patient rotation, no new consolidation. Electronically signed by: Dalton Thompson MD (07/08/2018 7:52 AM) [facility]
[2018-07-08] MEDS ORDERED: IPRATRPIUM/ALBUTEROL 0.5/2.5MG 3 ML NEBU. NEB SCH (08:00)
--- NOTE | 2018-07-08 08:09 | EKG ---
[facility] [address] [place] [address] Test Date: 2018-07-07 Test Time: 20:16:47 Pat Name: ALKA CASTILLO Department: Room: 538 1 Gender: F [employer]: : 1940 Requested By: MOO GALAN Order Number: [id number] Reading MD: Demian Luong MD Measurements Intervals [place] Rate: 73 P: -6 CO: 126 QRS: 12 QRSD: 78 T: 54 QT: 378 QTc: 420 Interpretive Statements SINUS RHYTHM Electronically Signed On 07-08-2018 9:50:49 CDT by Demian Luong MD
[2018-07-08] MEDS ORDERED: ACETAMINOPHEN 325 MG TABLET. PO PRN (10:00)
[2018-07-08] MEDS ORDERED: MORPHINE SULFATE 2 MG/ML VIAL. IV PRN (10:00)
[2018-07-08] MEDS ORDERED: ONDANSETRON PF 4 MG/2 ML VIAL. IV PRN (10:00)
[2018-07-08] MEDS ORDERED: traMADol 50 MG TABLET PO PRN (10:00)
[2018-07-08] MEDS ORDERED: DOCUSATE SODIUM 100 MG CAPSULE. PO PRN (10:00)
[2018-07-08] MEDS: predniSONE 20 MG TABLET PO SCH (10:43)
[2018-07-08] MEDS: FERROUS SULFATE 325 MG TABLET. PO SCH (10:43)
[2018-07-08] MEDS: CARVEDILOL 6.25 MG TABLET. PO SCH ×2 (10:43→17:43)
[2018-07-08] MEDS: FUROSEMIDE 20 MG TABLET PO SCH (10:43)
[2018-07-08] MEDS: ASPIRIN ENTERIC COATED 81 MG TABLET.DR. PO SCH (10:44)
[2018-07-08 11:00] VITALS: BP 116/53
[2018-07-08] MEDS: BUDESONIDE 0.5 MG/2 ML NEBU. NEB SCH ×2 (11:45→20:26)
[2018-07-08] MEDS ORDERED: ALBUTEROL SULFATE 2.5 MG/3 ML NEBU. NEB SCH (12:00)
--- NOTE | 2018-07-08 12:29 | PDOC1 ---
History and Physical Date of Admission Date of Admission 07/07/18 Identification/Chief Complaint Chief Complaint sob Source Source: Chart review, Patient History of Present Illness History of Present Illness Patient is a 78 year old female brought in by EMS with shortness of breath for 1 d. pt was dced 2 weeks ago for same reason. SHe lives alone, independent, no smoking, home o2 3- 4L. pt feels ok till yesterday, with sob when walking, mild cough, no sputum, no fever, chills, chest pain. seems refused DNR in May. Denies N/V, diarrhea. Past Medical History Pulmonary: COPD CENTRAL NERVOUS SYSTEM: Periperal neuropathy GI: No pertinent hx Heme/Onc: Anemia NOS Hepatobiliary: No pertinent hx Psych: No pertinent hx Rheumatologic: No pertinent hx Infectious disease: No pertinent hx Renal/: No pertinent hx Past Surgical History Past Surgical History: Cholecystectomy Family History Family History: Coronary Artery Disease Family History: Parent Social History Smoke: No ALCOHOL: none Drugs: None Current Problem List Problem List Problems Medical Problems: (1) COPD exacerbation Status: Acute Current Medications Current Medications Current Medications Medications (Trade) Dose Ordered Sig/Eva Start Time Stop Time Status Last Admin Dose Admin Acetaminophen (Tylenol) 650 mg PRN Q6HRS PRN 07/08/18 10:00 Albuterol Sulfate (Ventolin Neb Soln) 2.5 mg RTQID 07/08/18 12:00 07/08/18 12:12 DC 07/08/18 11:45 2.5 MG Albuterol/ Ipratropium (Duoneb) 3 ml RTQID 07/08/18 16:00 Aspirin (Ecotrin) 81 mg DAILY 07/08/18 10:30 07/08/18 10:44 81 MG Atorvastatin Calcium (Lipitor) 5 mg QHS 07/08/18 21:00 Budesonide (Pulmicort) 0.5 mg RTBID 07/08/18 10:30 07/08/18 11:45 0.5 MG Carvedilol (Coreg) 6.25 mg BIDWMEALS 07/08/18 10:30 07/08/18 10:43 6.25 MG Docusate Sodium (Colace) 100 mg PRN DAILY PRN 07/08/18 10:00 Famotidine (Pepcid) 20 mg QHS 07/08/18 21:00 Ferrous Sulfate (Feosol) 325 mg DAILY 07/08/18 10:30 07/08/18 10:43 325 MG Furosemide (Lasix) 20 mg DAILY 07/08/18 10:30 07/08/18 10:43 20 MG Heparin Sodium (Porcine) (Heparin Sodium) 5,000 unit Q8HRS 07/08/18 14:00 Methylprednisolone Sodium Succinate (SOLU-Medrol 125MG VIAL) 125 mg 1X ONCE 07/07/18 20:30 07/07/18 20:31 DC 07/07/18 20:39 125 MG Morphine Sulfate (Morphine Sulfate) 2 mg PRN Q2HR PRN 07/08/18 10:00 Nystatin (Nystop) 1 jaison QID 07/08/18 13:00 Ondansetron HCl (Zofran) 4 mg PRN Q6HRS PRN 07/08/18 10:00 Piperacillin Sod/ Tazobactam Sod (Zosyn Per Pharmacy) 1 each PRN DAILY PRN 07/07/18 22:45 07/08/18 09:58 DC Piperacillin Sod/ Tazobactam Sod 2.25 gm/Sodium Chloride 50 ml @ 100 mls/hr Q6HRS 07/08/18 06:00 07/08/18 09:58 DC 07/08/18 05:55 100 MLS/HR Prednisone (Prednisone) 40 mg DAILY 07/08/18 10:30 07/08/18 10:43 40 MG Tramadol HCl (Ultram) 50 mg PRN Q6HRS PRN 07/08/18 10:00 Vancomycin HCl (Vanco Per Pharmacy) 1 each PRN DAILY PRN 07/07/18 22:00 07/08/18 09:58 DC 07/07/18 22:46 1 EACH Vancomycin HCl (Vancomycin Trough Level) 1 each 1X ONCE 07/09/18 21:30 07/09/18 21:31 Cancel Vancomycin HCl 2 gm/Sodium Chloride 500 ml @ 250 mls/hr 1X ONCE 07/07/18 22:00 07/07/18 23:59 DC 07/07/18 22:15 250 MLS/HR Allergies Allergies Allergies Coded Allergies Type Severity Reaction Last Updated Verified doxycycline Allergy Intermediate Rash 02/16/18 Yes I S O L A T I O N *CONTACT* Allergy Unknown 12/12/16 Yes ROS Review of System CONSTITUTIONAL: No fever or chills EYES: No recent changes SKIN: No rash or itching CARDIOVASCULAR: No chest pain, syncope, palpitations, or edema RESPIRATORY: No SOB or cough GASTROINTESTINAL: No nausea, vomiting or abdominal pain NEUROLOGICAL: No headaches or weakness ENDOCRINE: No cold or heat intolerance GENITOURINARY: No urgency or frequency of urination MUSCULOSKELETAL: No back pain or joint pain LYMPHATICS: No enlarged lymph nodes PSYCHIATRIC: No anxiety or depression Physical Exam Physical Exam GEN.: No apparent distress. Alert and oriented. HEENT: Head is normocephalic, atraumatic NECK: Supple. LUNGS: bl mild decreased bs, no wheezing. HEART: RRR, S1, S2 present. Peripheral pulses intact ABDOMEN: Soft, nontender. Positive bowel sounds. EXTREMITIES: Without any cyanosis. NEUROLOGIC: Normal speech, normal tone PSYCHIATRIC: Normal affect, normal mood. SKIN: No ulcerations Vitals Vitals Vital Signs Date Time Temp Pulse Resp B/P (MAP) Pulse Ox O2 Delivery O2 Flow Rate FiO2 07/08/18 11:44 Nasal Cannula 3.0 07/08/18 11:00 97.7 77 18 116/53 (74) 95 97.7 Labs Labs Laboratory Tests Test 07/07/18 20:25 07/07/18 20:30 07/07/18 20:41 07/07/18 21:00 Lactic Acid Level 0.8 mmol/L (0.4-2.0) White Blood Count 7.7 x10^3/uL (4.0-11.0) Red Blood Count 3.38 x10^6/uL (3.50-5.40) Hemoglobin 9.4 g/dL (12.0-15.5) Hematocrit 28.5 % (36.0-47.0) Mean Corpuscular Volume 84 fL (79-100) Mean Corpuscular Hemoglobin 28 pg (25-35) Mean Corpuscular Hemoglobin Concent 33 g/dL (31-37) Red Cell Distribution Width 17.4 % (11.5-14.5) Platelet Count 151 x10^3/uL (140-400) Neutrophils (%) (Auto) 67 % (31-73) Lymphocytes (%) (Auto) 18 % (24-48) Monocytes (%) (Auto) 11 % (0-9) Eosinophils (%) (Auto) 3 % (0-3) Basophils (%) (Auto) 1 % (0-3) Neutrophils # (Auto) 5.1 x10^3uL (1.8-7.7) Lymphocytes # (Auto) 1.4 x10^3/uL (1.0-4.8) Monocytes # (Auto) 0.8 x10^3/uL (0.0-1.1) Eosinophils # (Auto) 0.2 x10^3/uL (0.0-0.7) Basophils # (Auto) 0.1 x10^3/uL (0.0-0.2) Prothrombin Time 14.0 SEC (11.7-14.0) Prothromb Time International Ratio 1.1 (0.8-1.1) Sodium Level 143 mmol/L (136-145) Potassium Level 4.3 mmol/L (3.5-5.1) Chloride Level 104 mmol/L (98-107) Carbon Dioxide Level 31 mmol/L (21-32) Anion Gap 8 (6-14) Blood Urea Nitrogen 25 mg/dL (7-20) Creatinine 1.2 mg/dL (0.6-1.0) Estimated GFR (Cockcroft-Gault) 43.2 BUN/Creatinine Ratio 21 (6-20) Glucose Level 115 mg/dL (70-99) Calcium Level 8.1 mg/dL (8.5-10.1) Total Bilirubin 0.5 mg/dL (0.2-1.0) Aspartate Amino Transf (AST/SGOT) 14 U/L (15-37) Alanine Aminotransferase (ALT/SGPT) 14 U/L (14-59) Alkaline Phosphatase 69 U/L (46-116) Troponin I Quantitative < 0.017 ng/mL (0.000-0.055) YW-Ovv-F-Type Natriuretic Peptide 1141 pg/mL (0-449) Total Protein 6.3 g/dL (6.4-8.2) Albumin 2.3 g/dL (3.4-5.0) Albumin/Globulin Ratio 0.6 (1.0-1.7) Procalcitonin < 0.10 ng/mL (0.00-0.10) Influenza Type A Antigen Negative (NEGATIVE) Influenza Type B Antigen Negative (NEGATIVE) Urine Collection Type Unknown Urine Color Yellow Urine Clarity Clear Urine pH 5.5 Urine Specific [place] 1.015 Urine Protein Negative mg/dL (NEG-TRACE) Urine Glucose (UA) Negative mg/dL (NEG) Urine Ketones (Stick) Negative mg/dL (NEG) Urine Blood Negative (NEG) Urine Nitrite Negative (NEG) Urine Bilirubin Negative (NEG) Urine Urobilinogen Dipstick 2.0 mg/dL (0.2 mg/dL) Urine Leukocyte Esterase Negative (NEG) Urine RBC Occ /HPF (0-2) Urine WBC Rare /HPF (0-4) Urine Squamous Epithelial Cells Few /LPF Urine Bacteria 0 /HPF (0-FEW) Urine Hyaline Casts Few /HPF Urine Mucus Mod /LPF Test 07/08/18 06:55 Blood Urea Nitrogen 27 mg/dL (7-20) Creatinine 1.2 mg/dL (0.6-1.0) Estimated GFR (Cockcroft-Gault) 43.2 Laboratory Tests Test 07/07/18 20:25 07/07/18 20:30 07/07/18 20:41 07/07/18 21:00 Lactic Acid Level 0.8 mmol/L (0.4-2.0) White Blood Count 7.7 x10^3/uL (4.0-11.0) Red Blood Count 3.38 x10^6/uL (3.50-5.40) Hemoglobin 9.4 g/dL (12.0-15.5) Hematocrit 28.5 % (36.0-47.0) Mean Corpuscular Volume 84 fL (79-100) Mean Corpuscular Hemoglobin 28 pg (25-35) Mean Corpuscular Hemoglobin Concent 33 g/dL (31-37) Red Cell Distribution Width 17.4 % (11.5-14.5) Platelet Count 151 x10^3/uL (140-400) Neutrophils (%) (Auto) 67 % (31-73) Lymphocytes (%) (Auto) 18 % (24-48) Monocytes (%) (Auto) 11 % (0-9) Eosinophils (%) (Auto) 3 % (0-3) Basophils (%) (Auto) 1 % (0-3) Neutrophils # (Auto) 5.1 x10^3uL (1.8-7.7) Lymphocytes # (Auto) 1.4 x10^3/uL (1.0-4.8) Monocytes # (Auto) 0.8 x10^3/uL (0.0-1.1) Eosinophils # (Auto) 0.2 x10^3/uL (0.0-0.7) Basophils # (Auto) 0.1 x10^3/uL (0.0-0.2) Prothrombin Time 14.0 SEC (11.7-14.0) Prothromb Time International Ratio 1.1 (0.8-1.1) Sodium Level 143 mmol/L (136-145) Potassium Level 4.3 mmol/L (3.5-5.1) Chloride Level 104 mmol/L (98-107) Carbon Dioxide Level 31 mmol/L (21-32) Anion Gap 8 (6-14) Blood Urea Nitrogen 25 mg/dL (7-20) Creatinine 1.2 mg/dL (0.6-1.0) Estimated GFR (Cockcroft-Gault) 43.2 BUN/Creatinine Ratio 21 (6-20) Glucose Level 115 mg/dL (70-99) Calcium Level 8.1 mg/dL (8.5-10.1) Total Bilirubin 0.5 mg/dL (0.2-1.0) Aspartate Amino Transf (AST/SGOT) 14 U/L (15-37) Alanine Aminotransferase (ALT/SGPT) 14 U/L (14-59) Alkaline Phosphatase 69 U/L (46-116) Troponin I Quantitative < 0.017 ng/mL (0.000-0.055) MD-Ayq-I-Type Natriuretic Peptide 1141 pg/mL (0-449) Total Protein 6.3 g/dL (6.4-8.2) Albumin 2.3 g/dL (3.4-5.0) Albumin/Globulin Ratio 0.6 (1.0-1.7) Procalcitonin < 0.10 ng/mL (0.00-0.10) Influenza Type A Antigen Negative (NEGATIVE) Influenza Type B Antigen Negative (NEGATIVE) Urine Collection Type Unknown Urine Color Yellow Urine Clarity Clear Urine pH 5.5 Urine Specific [place] 1.015 Urine Protein Negative mg/dL (NEG-TRACE) Urine Glucose (UA) Negative mg/dL (NEG) Urine Ketones (Stick) Negative mg/dL (NEG) Urine Blood Negative (NEG) Urine Nitrite Negative (NEG) Urine Bilirubin Negative (NEG) Urine Urobilinogen Dipstick 2.0 mg/dL (0.2 mg/dL) Urine Leukocyte Esterase Negative (NEG) Urine RBC Occ /HPF (0-2) Urine WBC Rare /HPF (0-4) Urine Squamous Epithelial Cells Few /LPF Urine Bacteria 0 /HPF (0-FEW) Urine Hyaline Casts Few /HPF Urine Mucus Mod /LPF Test 07/08/18 06:55 Blood Urea Nitrogen 27 mg/dL (7-20) Creatinine 1.2 mg/dL (0.6-1.0) Estimated GFR (Cockcroft-Gault) 43.2 VTE Prophylaxis Ordered VTE Prophylaxis Devices: Yes VTE Pharmacological Prophylaxi: Yes Assessment/Plan Assessment/Plan acute on chronic hypoxic resp failure COPD exacerbation weakness and debility moderate malnutrition probably [id number] cor pulmonale. ckd3 morbid obesity moderate PHTN recent echo EF 50% plan: pulm consult duoneb, albuterol prn levaquin prednisone 40mg daily dvt, gi ppx cont home meds PTOT NC as needed. flu neg. MILAN LUNA MD Jul 08, 2018 12:29
--- NOTE | 2018-07-08 12:38 | CONS ---
DATE OF CONSULTATION: ATTENDING PHYSICIAN: Dr. Munguia. REASON FOR CONSULTATION: Dyspnea, COPD exacerbation. HISTORY OF PRESENT ILLNESS: The patient is very well known to us. She has history of chronic hypoxic respiratory failure and has required multiple hospitalizations for COPD exacerbations. She was last discharged to rehab place and then was home for over a week. She said she came into the hospital because of increased shortness of breath. She has some wheezing. No significant cough with productive sputum. No fever, no chills, no chest pains. She does have some lower extremity edema. The patient has no nausea, no vomiting, no focal weakness. No skin rash. Chest x-ray was reviewed and it shows some basal atelectasis with chronic basal scarring. No new findings were seen. Influenza screen was negative. BUN and creatinine was 27 and 1.2. White cell count was normal at 7.7. PAST MEDICAL HISTORY: History of end-stage COPD with chronic hypoxic respiratory failure, history of frequent hospitalizations, history of diastolic heart failure, history of cor pulmonale. PAST SURGICAL HISTORY: No recent surgery. ALLERGIES: DOXYCYCLINE. MEDICATIONS: That were given in the ER were reviewed and current medications were reviewed as well. SOCIAL HISTORY: Has a long history of tobacco use before quitting. REVIEW OF SYSTEMS: Twelve-point system obtained. Pertinent positives discussed in my history of present illness, otherwise noncontributory. All systems that were negative were reviewed as well. FAMILY HISTORY: Noncontributory to lungs. PHYSICAL EXAMINATION: GENERAL: She is awake, following commands. Pulse ox 98% on 4 liters, afebrile. VITAL SIGNS: Blood pressure is stable. HEENT: Sclerae nonicteric. NECK: Supple. LUNGS: With few rhonchi, no wheezing. CARDIOVASCULAR: Regular rate. ABDOMEN: Soft, obese. EXTREMITIES: With bilateral pitting edema. LABORATORY DATA: Reviewed. White cell count 7.7, hemoglobin 9.4, platelets of 151. BUN and creatinine 25 and 1.7. IMPRESSION: Dyspnea secondary to acute exacerbation of chronic obstructive pulmonary disease in a patient who has chronic hypoxic respiratory failure secondary to severe chronic obstructive pulmonary disease and has frequent hospitalizations on a regular basis secondary to exacerbation. She has been ruled out for pulmonary embolism in the past multiple times. She may have a component of cor pulmonale as she does have lower extremity edema. Clinically, less likely any new infection. RECOMMENDATION: 1. Continue with present bronchodilators along with DuoNebs and Pulmicort. 2. Continue with oral diuresis. 3. I do not see a need for antibiotics at present. 4. IV steroids with gradual taper. 5. Continue present oxygen at 4 liters. 6. We will do a 6-minute walk test before discharge to assess the need for increased oxygen with ambulation. SHERON URENA MD DR: WINNIE/rito JOB#: [id number] / [id number]
[2018-07-08] MEDS: NYSTATIN TOPICAL POWDER 15GM BOTTLE. TP SCH ×3 (13:00→21:18)
[2018-07-08] MEDS: HEPARIN for SUB-Q USE 5,000 UNIT/ML VIAL. SQ SCH ×2 (13:20→21:27)
[2018-07-08 15:00] VITALS: BP 125/50
[2018-07-08] MEDS: IPRATRPIUM/ALBUTEROL 0.5/2.5MG 3 ML NEBU. NEB SCH ×2 (15:53→20:26)
[2018-07-08 19:00] VITALS: BP 111/46
[2018-07-08] MEDS: ATORVASTATIN CALCIUM 10 MG TABLET. PO SCH (21:18)
[2018-07-08] MEDS: LACTOBACILLUS RHAMNOSUS GG 1 CAPSULE. PO SCH (21:18)
[2018-07-08] MEDS: FAMOTIDINE 20 MG TABLET. PO SCH (21:18)
[2018-07-08 23:00] VITALS: BP 150/71
[2018-07-09 03:00] VITALS: BP 128/84
[2018-07-09 05:52] LABS: BASO % 0 % (0-3); EOS % 0 % (0-3); HEMATOCRIT 25.5 % (36.0-47.0); HEMOGLOBIN 8.3 g/dL (12.0-15.5); LYMPH # 1.2 x10^3/uL (1.0-4.8); LYMPH % 14 % (24-48); MEAN CORPUSCULAR HEMOGLOBIN 27 pg (25-35); MEAN CORPUSCULAR HGB CONC 33 g/dL (31-37); MEAN CORPUSCULAR VOLUME 84 fL (79-100); MONO # 0.7 x10^3/uL (0.0-1.1); MONO % 9 % (0-9); NEUT # 6.4 x10^3uL (1.8-7.7); NEUT % 77 % (31-73); PLATELET COUNT 166 x10^3/uL (140-400); RED BLOOD COUNT 3.04 x10^6/uL (3.50-5.40); RED CELL DISTRIBUTION WIDTH 16.9 % (11.5-14.5); WHITE BLOOD COUNT 8.4 x10^3/uL (4.0-11.0)
[2018-07-09 05:55] LABS: CALCIUM 7.7 mg/dL (8.5-10.1); CREATININE 1.2 mg/dL (0.6-1.0); GFR 43.2; POTASSIUM 3.7 mmol/L (3.5-5.1)
[2018-07-09] MEDS: HEPARIN for SUB-Q USE 5,000 UNIT/ML VIAL. SQ SCH ×3 (05:59→20:25)
[2018-07-09 07:00] VITALS: BP 149/68
[2018-07-09] MEDS: IPRATRPIUM/ALBUTEROL 0.5/2.5MG 3 ML NEBU. NEB SCH ×4 (07:49→19:59)
[2018-07-09] MEDS: BUDESONIDE 0.5 MG/2 ML NEBU. NEB SCH ×2 (07:49→19:59)
[2018-07-09] MEDS ORDERED: ALBUTEROL SULFATE 2.5 MG/3 ML NEBU. NEB PRN (08:00)
[2018-07-09] MEDS ORDERED: guaiFENesin DM 200MG/20MG 10 ML SYRUP PO PRN (08:00)
[2018-07-09] MEDS: predniSONE 20 MG TABLET PO SCH (08:42)
[2018-07-09] MEDS: NYSTATIN TOPICAL POWDER 15GM BOTTLE. TP SCH ×4 (08:42→20:25)
[2018-07-09] MEDS: FERROUS SULFATE 325 MG TABLET. PO SCH (08:42)
[2018-07-09] MEDS: FUROSEMIDE 20 MG TABLET PO SCH (08:42)
[2018-07-09] MEDS: LACTOBACILLUS RHAMNOSUS GG 1 CAPSULE. PO SCH ×2 (08:42→20:24)
[2018-07-09] MEDS: ASPIRIN ENTERIC COATED 81 MG TABLET.DR. PO SCH (08:42)
[2018-07-09] MEDS: CARVEDILOL 6.25 MG TABLET. PO SCH ×2 (08:42→17:08)
--- NOTE | 2018-07-09 08:46 | PDOC ---
PROGRESS NOTES Chief Complaint Chief Complaint staph bacteremia 2 out of 4 bottles 07/09/18 acute on chronic hypoxic resp failure COPD exacerbation weakness and debility moderate malnutrition probably [id number] cor pulmonale. ckd3 morbid obesity moderate PHTN recent echo EF 50% History of Present Illness History of Present Illness called by RN because of positive blood culture 2 out of 4 bottles staph - likely aureus Patient has no complaints No increase in SOA Lives at home with home health Frequent flyer, does not want hospice, does not want AL or SNU Plan: Vancomycin per pharmacy Consult ID CBC ESR tmr Vitals Vitals Vital Signs Date Time Temp Pulse Resp B/P (MAP) Pulse Ox O2 Delivery O2 Flow Rate FiO2 07/09/18 07:49 99 Nasal Cannula 3.0 07/09/18 07:00 97.9 68 18 149/68 (95) 97.9 Physical Exam General: Alert, Oriented X3, Cooperative, No acute distress Heart: Regular rate, No murmurs Lungs: Wheezing, Other Abdomen: Normal bowel sounds, Soft, No tenderness Extremities: No clubbing, No cyanosis, No edema, No tenderness/swelling Skin: No rashes, No breakdown, No significant lesion Labs LABS Laboratory Tests Test 07/09/18 05:20 White Blood Count 8.4 x10^3/uL (4.0-11.0) Red Blood Count 3.04 x10^6/uL (3.50-5.40) Hemoglobin 8.3 g/dL (12.0-15.5) Hematocrit 25.5 % (36.0-47.0) Mean Corpuscular Volume 84 fL (79-100) Mean Corpuscular Hemoglobin 27 pg (25-35) Mean Corpuscular Hemoglobin Concent 33 g/dL (31-37) Red Cell Distribution Width 16.9 % (11.5-14.5) Platelet Count 166 x10^3/uL (140-400) Neutrophils (%) (Auto) 77 % (31-73) Lymphocytes (%) (Auto) 14 % (24-48) Monocytes (%) (Auto) 9 % (0-9) Eosinophils (%) (Auto) 0 % (0-3) Basophils (%) (Auto) 0 % (0-3) Neutrophils # (Auto) 6.4 x10^3uL (1.8-7.7) Lymphocytes # (Auto) 1.2 x10^3/uL (1.0-4.8) Monocytes # (Auto) 0.7 x10^3/uL (0.0-1.1) Eosinophils # (Auto) 0.0 x10^3/uL (0.0-0.7) Basophils # (Auto) 0.0 x10^3/uL (0.0-0.2) Sodium Level 144 mmol/L (136-145) Potassium Level 3.7 mmol/L (3.5-5.1) Chloride Level 107 mmol/L (98-107) Carbon Dioxide Level 31 mmol/L (21-32) Anion Gap 6 (6-14) Blood Urea Nitrogen 36 mg/dL (7-20) Creatinine 1.2 mg/dL (0.6-1.0) Estimated GFR (Cockcroft-Gault) 43.2 Glucose Level 150 mg/dL (70-99) Calcium Level 7.7 mg/dL (8.5-10.1) Review of Systems Review of Systems No increased S OA, fever, no chest pain, no abdominal issues Assessment and Plan Assessmemt and Plan Problems Medical Problems: (1) COPD exacerbation Status: Acute Comment Review of Relevant I have reviewed the following items [place] (where applicable) has been applied. Labs Laboratory Tests Test 07/07/18 20:25 07/07/18 20:30 07/07/18 20:41 07/07/18 21:00 Lactic Acid Level 0.8 mmol/L (0.4-2.0) White Blood Count 7.7 x10^3/uL (4.0-11.0) Red Blood Count 3.38 x10^6/uL (3.50-5.40) Hemoglobin 9.4 g/dL (12.0-15.5) Hematocrit 28.5 % (36.0-47.0) Mean Corpuscular Volume 84 fL (79-100) Mean Corpuscular Hemoglobin 28 pg (25-35) Mean Corpuscular Hemoglobin Concent 33 g/dL (31-37) Red Cell Distribution Width 17.4 % (11.5-14.5) Platelet Count 151 x10^3/uL (140-400) Neutrophils (%) (Auto) 67 % (31-73) Lymphocytes (%) (Auto) 18 % (24-48) Monocytes (%) (Auto) 11 % (0-9) Eosinophils (%) (Auto) 3 % (0-3) Basophils (%) (Auto) 1 % (0-3) Neutrophils # (Auto) 5.1 x10^3uL (1.8-7.7) Lymphocytes # (Auto) 1.4 x10^3/uL (1.0-4.8) Monocytes # (Auto) 0.8 x10^3/uL (0.0-1.1) Eosinophils # (Auto) 0.2 x10^3/uL (0.0-0.7) Basophils # (Auto) 0.1 x10^3/uL (0.0-0.2) Prothrombin Time 14.0 SEC (11.7-14.0) Prothromb Time International Ratio 1.1 (0.8-1.1) Sodium Level 143 mmol/L (136-145) Potassium Level 4.3 mmol/L (3.5-5.1) Chloride Level 104 mmol/L (98-107) Carbon Dioxide Level 31 mmol/L (21-32) Anion Gap 8 (6-14) Blood Urea Nitrogen 25 mg/dL (7-20) Creatinine 1.2 mg/dL (0.6-1.0) Estimated GFR (Cockcroft-Gault) 43.2 BUN/Creatinine Ratio 21 (6-20) Glucose Level 115 mg/dL (70-99) Calcium Level 8.1 mg/dL (8.5-10.1) Total Bilirubin 0.5 mg/dL (0.2-1.0) Aspartate Amino Transf (AST/SGOT) 14 U/L (15-37) Alanine Aminotransferase (ALT/SGPT) 14 U/L (14-59) Alkaline Phosphatase 69 U/L (46-116) Troponin I Quantitative < 0.017 ng/mL (0.000-0.055) LT-Plz-U-Type Natriuretic Peptide 1141 pg/mL (0-449) Total Protein 6.3 g/dL (6.4-8.2) Albumin 2.3 g/dL (3.4-5.0) Albumin/Globulin Ratio 0.6 (1.0-1.7) Procalcitonin < 0.10 ng/mL (0.00-0.10) Influenza Type A Antigen Negative (NEGATIVE) Influenza Type B Antigen Negative (NEGATIVE) Urine Collection Type Unknown Urine Color Yellow Urine Clarity Clear Urine pH 5.5 Urine Specific [place] 1.015 Urine Protein Negative mg/dL (NEG-TRACE) Urine Glucose (UA) Negative mg/dL (NEG) Urine Ketones (Stick) Negative mg/dL (NEG) Urine Blood Negative (NEG) Urine Nitrite Negative (NEG) Urine Bilirubin Negative (NEG) Urine Urobilinogen Dipstick 2.0 mg/dL (0.2 mg/dL) Urine Leukocyte Esterase Negative (NEG) Urine RBC Occ /HPF (0-2) Urine WBC Rare /HPF (0-4) Urine Squamous Epithelial Cells Few /LPF Urine Bacteria 0 /HPF (0-FEW) Urine Hyaline Casts Few /HPF Urine Mucus Mod /LPF Test 07/08/18 00:32 07/08/18 06:55 07/09/18 05:20 Nasal Screen 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) Blood Urea Nitrogen 27 mg/dL (7-20) 36 mg/dL (7-20) Creatinine 1.2 mg/dL (0.6-1.0) 1.2 mg/dL (0.6-1.0) Estimated GFR (Cockcroft-Gault) 43.2 43.2 White Blood Count 8.4 x10^3/uL (4.0-11.0) Red Blood Count 3.04 x10^6/uL (3.50-5.40) Hemoglobin 8.3 g/dL (12.0-15.5) Hematocrit 25.5 % (36.0-47.0) Mean Corpuscular Volume 84 fL (79-100) Mean Corpuscular Hemoglobin 27 pg (25-35) Mean Corpuscular Hemoglobin Concent 33 g/dL (31-37) Red Cell Distribution Width 16.9 % (11.5-14.5) Platelet Count 166 x10^3/uL (140-400) Neutrophils (%) (Auto) 77 % (31-73) Lymphocytes (%) (Auto) 14 % (24-48) Monocytes (%) (Auto) 9 % (0-9) Eosinophils (%) (Auto) 0 % (0-3) Basophils (%) (Auto) 0 % (0-3) Neutrophils # (Auto) 6.4 x10^3uL (1.8-7.7) Lymphocytes # (Auto) 1.2 x10^3/uL (1.0-4.8) Monocytes # (Auto) 0.7 x10^3/uL (0.0-1.1) Eosinophils # (Auto) 0.0 x10^3/uL (0.0-0.7) Basophils # (Auto) 0.0 x10^3/uL (0.0-0.2) Sodium Level 144 mmol/L (136-145) Potassium Level 3.7 mmol/L (3.5-5.1) Chloride Level 107 mmol/L (98-107) Carbon Dioxide Level 31 mmol/L (21-32) Anion Gap 6 (6-14) Glucose Level 150 mg/dL (70-99) Calcium Level 7.7 mg/dL (8.5-10.1) Laboratory Tests Test 07/09/18 05:20 White Blood Count 8.4 x10^3/uL (4.0-11.0) Red Blood Count 3.04 x10^6/uL (3.50-5.40) Hemoglobin 8.3 g/dL (12.0-15.5) Hematocrit 25.5 % (36.0-47.0) Mean Corpuscular Volume 84 fL (79-100) Mean Corpuscular Hemoglobin 27 pg (25-35) Mean Corpuscular Hemoglobin Concent 33 g/dL (31-37) Red Cell Distribution Width 16.9 % (11.5-14.5) Platelet Count 166 x10^3/uL (140-400) Neutrophils (%) (Auto) 77 % (31-73) Lymphocytes (%) (Auto) 14 % (24-48) Monocytes (%) (Auto) 9 % (0-9) Eosinophils (%) (Auto) 0 % (0-3) Basophils (%) (Auto) 0 % (0-3) Neutrophils # (Auto) 6.4 x10^3uL (1.8-7.7) Lymphocytes # (Auto) 1.2 x10^3/uL (1.0-4.8) Monocytes # (Auto) 0.7 x10^3/uL (0.0-1.1) Eosinophils # (Auto) 0.0 x10^3/uL (0.0-0.7) Basophils # (Auto) 0.0 x10^3/uL (0.0-0.2) Sodium Level 144 mmol/L (136-145) Potassium Level 3.7 mmol/L (3.5-5.1) Chloride Level 107 mmol/L (98-107) Carbon Dioxide Level 31 mmol/L (21-32) Anion Gap 6 (6-14) Blood Urea Nitrogen 36 mg/dL (7-20) Creatinine 1.2 mg/dL (0.6-1.0) Estimated GFR (Cockcroft-Gault) 43.2 Glucose Level 150 mg/dL (70-99) Calcium Level 7.7 mg/dL (8.5-10.1) Microbiology 07/07/18 Blood Culture - Final, Complete Medications Current Medications Albuterol Sulfate (Ventolin Neb Soln) 10 mg 1X ONCE CONT NEB Last administered on 07/07/18at 21:26; Start 07/07/18 at 20:30; Stop 07/07/18 at 20 :31; Status DC Methylprednisolone Sodium Succinate (SOLU-Medrol 125MG VIAL) 125 mg 1X ONCE IV Last administered on 07/07/18at 20:39; Start 07/07/18 at 20:30; Stop at 20:31; Status DC Nystatin (Nystop) 1 rea 1X STAT TP Last administered on 07/07/18at 20:40; Start 07/07/18 at 20:06; Stop 07/07/18 at 20:15; Status DC Vancomycin HCl (Vanco Per Pharmacy) 1 each PRN DAILY PRN MC SEE COMMENTS Last administered on 07/07/18at 22:46; Start 07/07/18 at 22:00; Stop 07/08/18 at 09 :58; Status DC Piperacillin Sod/ Tazobactam Sod (Zosyn Per Pharmacy) 1 each PRN DAILY PRN MC SEE COMMENTS; Start 07/07/18 at 22:00; Stop 07/07/18 at 22:43; Status DC Vancomycin HCl 2 gm/Sodium Chloride 500 ml @ 250 mls/hr 1X ONCE IV Last administered on 07/07/18at 22:15; Start 07/07/18 at 22:00; Stop 07/07/18 at 23 :59; Status DC Piperacillin Sod/ Tazobactam Sod 2.25 gm/Sodium Chloride 50 ml @ 100 mls/hr ONCE ONCE IV Last administered on 07/07/18at 22:12; Start 07/07/18 at 22:00; Stop 07/07/18 at 22:29; Status DC Albuterol/ Ipratropium (Duoneb) 3 ml RTQID NEB Last administered on 07/08/18at 07:58; Start 07/08/18 at 08:00; Stop 07/08/18 at 10:09; Status DC Furosemide (Lasix) 40 mg 1X ONCE IVP Last administered on 07/07/18at 22:15; Start 07/07/18 at 22:15; Stop 07/07/18 at 22:16; Status DC Vancomycin HCl (Vancomycin Trough Level) 1 each 1X ONCE MC ; Start 07/09/18 at 21:30; Stop 07/09/18 at 21:31; Status Cancel Piperacillin Sod/ Tazobactam Sod (Zosyn Per Pharmacy) 1 each PRN DAILY PRN MC SEE COMMENTS; Start 07/07/18 at 22:45; Stop 07/08/18 at 09:58; Status DC Piperacillin Sod/ Tazobactam Sod 2.25 gm/Sodium Chloride 50 ml @ 100 mls/hr Q6HRS IV Last administered on 07/08/18at 05:55; Start 07/08/18 at 06:00; Stop 07/08/18 at 09:58; Status DC Aspirin (Ecotrin) 81 mg DAILY PO Last administered on 07/08/18at 10:44; Start 07/08/18 at 10:30 Carvedilol (Coreg) 6.25 mg BIDWMEALS PO Last administered on 07/08/18at 17:43; Start 07/08/18 at 10:30 Ferrous Sulfate (Feosol) 325 mg DAILY PO Last administered on 07/08/18at 10:43 ; Start 07/08/18 at 10:30 Furosemide (Lasix) 20 mg DAILY PO Last administered on 07/08/18at 10:43; Start 07/08/18 at 10:30 Nystatin (Nystop) 1 rea QID TP Last administered on 07/08/18at 21:18; Start at 13:00 Budesonide (Pulmicort) 0.5 mg RTBID NEB Last administered on 07/09/18at 07:49; Start 07/08/18 at 10:30 Atorvastatin Calcium (Lipitor) 5 mg QHS PO Last administered on 07/08/18at 21: 18; Start 07/08/18 at 21:00 Acetaminophen (Tylenol) 650 mg PRN Q6HRS PRN PO FEVER; Start 07/08/18 at 10:00 Ondansetron HCl (Zofran) 4 mg PRN Q6HRS PRN IV NAUSEA/VOMITING; Start at 10:00 Morphine Sulfate (Morphine Sulfate) 2 mg PRN Q2HR PRN IV MODERATE TO SEVERE PAIN; Start 07/08/18 at 10:00 Tramadol HCl (Ultram) 50 mg PRN Q6HRS PRN PO MILD TO MODERATE PAIN; Start at 10:00 Docusate Sodium (Colace) 100 mg PRN DAILY PRN PO CONSTIPATION; Start 07/08/18 at 10:00 Prednisone (Prednisone) 40 mg DAILY PO Last administered on 07/08/18at 10:43; Start 07/08/18 at 10:30 Famotidine (Pepcid) 20 mg QHS PO Last administered on 07/08/18at 21:18; Start 07/08/18 at 21:00 Heparin Sodium (Porcine) (Heparin Sodium) 5,000 unit Q8HRS SQ Last administered on 07/09/18at 05:59; Start 07/08/18 at 14:00 Albuterol Sulfate (Ventolin Neb Soln) 2.5 mg RTQID NEB Last administered on at 11:45; Start 07/08/18 at 12:00; Stop 07/08/18 at 12:12; Status DC Albuterol/ Ipratropium (Duoneb) 3 ml RTQID NEB Last administered on 07/09/18at 07:49; Start 07/08/18 at 16:00 Levofloxacin/ Dextrose 100 ml @ 100 mls/hr 1X ONCE IV Last administered on at 13:17; Start 07/08/18 at 13:00; Stop 07/08/18 at 13:59; Status DC Levofloxacin/ Dextrose 50 ml @ 50 mls/hr DAILY IV ; Start 07/09/18 at 09:00 Lactobacillus Rhamnosus (Culturelle) 1 cap BID PO Last administered on at 21:18; Start 07/08/18 at 21:00 Albuterol Sulfate (Ventolin Neb Soln) 2.5 mg PRN Q4HRS PRN NEB SHORTNESS OF BREATH; Start 07/09/18 at 08:00 Guaifenesin (Robitussin Dm) 10 ml PRN Q6HRS PRN PO COUGH; Start 07/09/18 at 08 :00 Active Scripts Active Furosemide 20 Mg Tablet 20 Mg PO DAILY Nystop (Nystatin) 60 Gm Powder 1 Rea TP QID 30 Days Reported Tylenol (Acetaminophen) 325 Mg Tablet 650 Mg PO TID PRN PRN Aspir 81 (Aspirin) 81 Mg Tablet.dr 1 Tab PO DAILY Iron Supplement (Ferrous Sulfate) 325 Mg Tablet 1 Tab PO DAILY Advair 250-50 Diskus (Fluticasone/Salmeterol) 1 Each Disk.w.dev 1 Puff IH BID Duoneb 0.5-3(2.5) Mg/3 Ml (Albuterol/Ipratropium) 3 Ml Ampul.neb 3 Ml IH Q4HRS PRN Pravastatin Sodium 10 Mg Tablet 1 Tab PO QHS Carvedilol 6.25 Mg Tablet 1 Tab PO BID Vitals/I & O Vital Sign - Last 24 Hours 07/08/18 07/08/18 07/08/18 07/08/18 10:43 11:00 11:44 15:00 Temp 97.7 97.9 97.7 97.9 Pulse 72 77 75 Resp 18 18 B/P (MAP) 124/59 116/53 (74) 125/50 (75) Pulse Ox 95 96 O2 Delivery Nasal Cannula Nasal Cannula Nasal Cannula O2 Flow Rate 3.0 07/08/18 07/08/18 07/08/18 07/08/18 15:53 17:43 19:00 20:00 Temp 97.9 97.9 Pulse 75 87 Resp 18 B/P (MAP) 125/50 111/46 (67) Pulse Ox 94 O2 Delivery Nasal Cannula Nasal Cannula Nasal Cannula O2 Flow Rate 3.0 3.0 07/08/18 07/08/18 07/08/18 07/09/18 20:28 20:28 23:00 03:00 Temp 97.9 97.9 97.9 97.9 Pulse 85 80 Resp 18 18 B/P (MAP) 150/71 (97) 128/84 (99) Pulse Ox 91 94 O2 Delivery Nasal Cannula Nasal Cannula Nasal Cannula Nasal Cannula O2 Flow Rate 3.0 3.0 07/09/18 07/09/18 07:00 07:49 Temp 97.9 97.9 Pulse 68 Resp 18 B/P (MAP) 149/68 (95) Pulse Ox 98 99 O2 Delivery Nasal Cannula Nasal Cannula O2 Flow Rate 3.0 Intake and Output 07/08/18 07/08/18 07/09/18 15:00 23:00 07:00 Intake Total 580 ml 400 ml 550 ml Balance 580 ml 400 ml 550 ml TESS LOZANO MD Jul 09, 2018 08:46
[2018-07-09] MEDS: VANCOMYCIN PER PHARMACY MC PRN ×2 (09:08→09:12)
[2018-07-09] MEDS: VANCOMYCIN 1.25 GM in IV NORMAL SALINE 250ML 250 ML IV SCH (10:22)
[2018-07-09 11:00] VITALS: BP 109/51
--- NOTE | 2018-07-09 12:06 | PDOC ---
Infectious Disease Note Vital Sign Vital Signs Vital Signs Date Time Temp Pulse Resp B/P (MAP) Pulse Ox O2 Delivery O2 Flow Rate FiO2 07/09/18 08:42 68 149/68 07/09/18 08:00 Nasal Cannula 3.0 07/09/18 07:49 99 07/09/18 07:00 97.9 18 97.9 Labs Lab Laboratory Tests Test 07/09/18 05:20 White Blood Count 8.4 x10^3/uL (4.0-11.0) Red Blood Count 3.04 x10^6/uL (3.50-5.40) Hemoglobin 8.3 g/dL (12.0-15.5) Hematocrit 25.5 % (36.0-47.0) Mean Corpuscular Volume 84 fL (79-100) Mean Corpuscular Hemoglobin 27 pg (25-35) Mean Corpuscular Hemoglobin Concent 33 g/dL (31-37) Red Cell Distribution Width 16.9 % (11.5-14.5) Platelet Count 166 x10^3/uL (140-400) Neutrophils (%) (Auto) 77 % (31-73) Lymphocytes (%) (Auto) 14 % (24-48) Monocytes (%) (Auto) 9 % (0-9) Eosinophils (%) (Auto) 0 % (0-3) Basophils (%) (Auto) 0 % (0-3) Neutrophils # (Auto) 6.4 x10^3uL (1.8-7.7) Lymphocytes # (Auto) 1.2 x10^3/uL (1.0-4.8) Monocytes # (Auto) 0.7 x10^3/uL (0.0-1.1) Eosinophils # (Auto) 0.0 x10^3/uL (0.0-0.7) Basophils # (Auto) 0.0 x10^3/uL (0.0-0.2) Sodium Level 144 mmol/L (136-145) Potassium Level 3.7 mmol/L (3.5-5.1) Chloride Level 107 mmol/L (98-107) Carbon Dioxide Level 31 mmol/L (21-32) Anion Gap 6 (6-14) Blood Urea Nitrogen 36 mg/dL (7-20) Creatinine 1.2 mg/dL (0.6-1.0) Estimated GFR (Cockcroft-Gault) 43.2 Glucose Level 150 mg/dL (70-99) Calcium Level 7.7 mg/dL (8.5-10.1) Micro Microbiology 07/07/18 Blood Culture - Final, Complete Objective Assessment BC + 2/4 with G + cocci , id pending COPD exacerbation CHF Multiple admissions Plan Plan of Care d/c levaquin iv vanc check culture and adjust OPAL NORTON MD Jul 09, 2018 12:06
--- NOTE | 2018-07-09 12:11 | PDOC ---
PULMONARY PROGRESS NOTES Subjective less soa Vitals Vital Signs Date Time Temp Pulse Resp B/P (MAP) Pulse Ox O2 Delivery O2 Flow Rate FiO2 07/09/18 11:00 97.7 76 18 109/51 (70) 97 Nasal Cannula 97.7 07/09/18 08:00 3.0 General: Alert, No acute distress Lungs: Other (decrease bs) Cardiovascular: S1, S2 Abdomen: Soft, Non-tender Extremities: Other Skin: Warm Labs Laboratory Tests Test 07/07/18 20:25 07/07/18 20:30 07/07/18 20:41 07/07/18 21:00 Lactic Acid Level 0.8 mmol/L (0.4-2.0) White Blood Count 7.7 x10^3/uL (4.0-11.0) Red Blood Count 3.38 x10^6/uL (3.50-5.40) Hemoglobin 9.4 g/dL (12.0-15.5) Hematocrit 28.5 % (36.0-47.0) Mean Corpuscular Volume 84 fL (79-100) Mean Corpuscular Hemoglobin 28 pg (25-35) Mean Corpuscular Hemoglobin Concent 33 g/dL (31-37) Red Cell Distribution Width 17.4 % (11.5-14.5) Platelet Count 151 x10^3/uL (140-400) Neutrophils (%) (Auto) 67 % (31-73) Lymphocytes (%) (Auto) 18 % (24-48) Monocytes (%) (Auto) 11 % (0-9) Eosinophils (%) (Auto) 3 % (0-3) Basophils (%) (Auto) 1 % (0-3) Neutrophils # (Auto) 5.1 x10^3uL (1.8-7.7) Lymphocytes # (Auto) 1.4 x10^3/uL (1.0-4.8) Monocytes # (Auto) 0.8 x10^3/uL (0.0-1.1) Eosinophils # (Auto) 0.2 x10^3/uL (0.0-0.7) Basophils # (Auto) 0.1 x10^3/uL (0.0-0.2) Prothrombin Time 14.0 SEC (11.7-14.0) Prothromb Time International Ratio 1.1 (0.8-1.1) Sodium Level 143 mmol/L (136-145) Potassium Level 4.3 mmol/L (3.5-5.1) Chloride Level 104 mmol/L (98-107) Carbon Dioxide Level 31 mmol/L (21-32) Anion Gap 8 (6-14) Blood Urea Nitrogen 25 mg/dL (7-20) Creatinine 1.2 mg/dL (0.6-1.0) Estimated GFR (Cockcroft-Gault) 43.2 BUN/Creatinine Ratio 21 (6-20) Glucose Level 115 mg/dL (70-99) Calcium Level 8.1 mg/dL (8.5-10.1) Total Bilirubin 0.5 mg/dL (0.2-1.0) Aspartate Amino Transf (AST/SGOT) 14 U/L (15-37) Alanine Aminotransferase (ALT/SGPT) 14 U/L (14-59) Alkaline Phosphatase 69 U/L (46-116) Troponin I Quantitative < 0.017 ng/mL (0.000-0.055) SA-Hde-G-Type Natriuretic Peptide 1141 pg/mL (0-449) Total Protein 6.3 g/dL (6.4-8.2) Albumin 2.3 g/dL (3.4-5.0) Albumin/Globulin Ratio 0.6 (1.0-1.7) Procalcitonin < 0.10 ng/mL (0.00-0.10) Influenza Type A Antigen Negative (NEGATIVE) Influenza Type B Antigen Negative (NEGATIVE) Urine Collection Type Unknown Urine Color Yellow Urine Clarity Clear Urine pH 5.5 Urine Specific [place] 1.015 Urine Protein Negative mg/dL (NEG-TRACE) Urine Glucose (UA) Negative mg/dL (NEG) Urine Ketones (Stick) Negative mg/dL (NEG) Urine Blood Negative (NEG) Urine Nitrite Negative (NEG) Urine Bilirubin Negative (NEG) Urine Urobilinogen Dipstick 2.0 mg/dL (0.2 mg/dL) Urine Leukocyte Esterase Negative (NEG) Urine RBC Occ /HPF (0-2) Urine WBC Rare /HPF (0-4) Urine Squamous Epithelial Cells Few /LPF Urine Bacteria 0 /HPF (0-FEW) Urine Hyaline Casts Few /HPF Urine Mucus Mod /LPF Test 07/08/18 00:32 07/08/18 06:55 07/09/18 05:20 Nasal Screen 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) Blood Urea Nitrogen 27 mg/dL (7-20) 36 mg/dL (7-20) Creatinine 1.2 mg/dL (0.6-1.0) 1.2 mg/dL (0.6-1.0) Estimated GFR (Cockcroft-Gault) 43.2 43.2 White Blood Count 8.4 x10^3/uL (4.0-11.0) Red Blood Count 3.04 x10^6/uL (3.50-5.40) Hemoglobin 8.3 g/dL (12.0-15.5) Hematocrit 25.5 % (36.0-47.0) Mean Corpuscular Volume 84 fL (79-100) Mean Corpuscular Hemoglobin 27 pg (25-35) Mean Corpuscular Hemoglobin Concent 33 g/dL (31-37) Red Cell Distribution Width 16.9 % (11.5-14.5) Platelet Count 166 x10^3/uL (140-400) Neutrophils (%) (Auto) 77 % (31-73) Lymphocytes (%) (Auto) 14 % (24-48) Monocytes (%) (Auto) 9 % (0-9) Eosinophils (%) (Auto) 0 % (0-3) Basophils (%) (Auto) 0 % (0-3) Neutrophils # (Auto) 6.4 x10^3uL (1.8-7.7) Lymphocytes # (Auto) 1.2 x10^3/uL (1.0-4.8) Monocytes # (Auto) 0.7 x10^3/uL (0.0-1.1) Eosinophils # (Auto) 0.0 x10^3/uL (0.0-0.7) Basophils # (Auto) 0.0 x10^3/uL (0.0-0.2) Sodium Level 144 mmol/L (136-145) Potassium Level 3.7 mmol/L (3.5-5.1) Chloride Level 107 mmol/L (98-107) Carbon Dioxide Level 31 mmol/L (21-32) Anion Gap 6 (6-14) Glucose Level 150 mg/dL (70-99) Calcium Level 7.7 mg/dL (8.5-10.1) Laboratory Tests Test 07/09/18 05:20 White Blood Count 8.4 x10^3/uL (4.0-11.0) Red Blood Count 3.04 x10^6/uL (3.50-5.40) Hemoglobin 8.3 g/dL (12.0-15.5) Hematocrit 25.5 % (36.0-47.0) Mean Corpuscular Volume 84 fL (79-100) Mean Corpuscular Hemoglobin 27 pg (25-35) Mean Corpuscular Hemoglobin Concent 33 g/dL (31-37) Red Cell Distribution Width 16.9 % (11.5-14.5) Platelet Count 166 x10^3/uL (140-400) Neutrophils (%) (Auto) 77 % (31-73) Lymphocytes (%) (Auto) 14 % (24-48) Monocytes (%) (Auto) 9 % (0-9) Eosinophils (%) (Auto) 0 % (0-3) Basophils (%) (Auto) 0 % (0-3) Neutrophils # (Auto) 6.4 x10^3uL (1.8-7.7) Lymphocytes # (Auto) 1.2 x10^3/uL (1.0-4.8) Monocytes # (Auto) 0.7 x10^3/uL (0.0-1.1) Eosinophils # (Auto) 0.0 x10^3/uL (0.0-0.7) Basophils # (Auto) 0.0 x10^3/uL (0.0-0.2) Sodium Level 144 mmol/L (136-145) Potassium Level 3.7 mmol/L (3.5-5.1) Chloride Level 107 mmol/L (98-107) Carbon Dioxide Level 31 mmol/L (21-32) Anion Gap 6 (6-14) Blood Urea Nitrogen 36 mg/dL (7-20) Creatinine 1.2 mg/dL (0.6-1.0) Estimated GFR (Cockcroft-Gault) 43.2 Glucose Level 150 mg/dL (70-99) Calcium Level 7.7 mg/dL (8.5-10.1) Medications Active Scripts Medications Dose Route/Sig Max Daily Dose Days Date Category Furosemide 20 Mg Tablet 20 Mg PO DAILY 02/21/18 Rx Nystop (Nystatin) 60 Gm Powder 1 Rea TP QID 30 01/02/18 Rx Tylenol (Acetaminophen) 325 Mg Tablet 650 Mg PO TID PRN PRN 04/11/16 Reported Aspir 81 (Aspirin) 81 Mg Tablet.dr 1 Tab PO DAILY 04/11/16 Reported Iron Supplement (Ferrous Sulfate) 325 Mg Tablet 1 Tab PO DAILY 11/10/15 Reported Advair 250-50 Diskus (Fluticasone/Salmeterol) 1 Each Disk.w.dev 1 Puff IH BID 05/06/15 Reported Duoneb 0.5-3(2.5) Mg/3 Ml (Albuterol/Ipratropium) 3 Ml Ampul.neb 3 Ml IH Q4HRS PRN 05/06/15 Reported Pravastatin Sodium 10 Mg Tablet 1 Tab PO QHS 09/16/14 Reported Carvedilol 6.25 Mg Tablet 1 Tab PO BID 09/16/14 Reported Impression . IMPRESSION: Dyspnea secondary to acute exacerbation of chronic obstructive pulmonary disease in a patient who has chronic hypoxic respiratory failure secondary to severe chronic obstructive pulmonary disease and has frequent hospitalizations on a regular basis secondary to exacerbation. She has been ruled out for pulmonary embolism in the past multiple times. She may have a component of cor pulmonale as she does have lower extremity edema. 2. Gram positive bacteremia/ ID following Plan . 1. Continue with present bronchodilators/ DuoNebs and Pulmicort. 2. Continue with oral diuresis. 3. antibiotics per ID 4. IV steroids with gradual taper. 5. Continue present oxygen at 4 liters. 6. We will do a 6-minute walk test before discharge to assess the need for increased oxygen with ambulation. SHERON URENA MD Jul 09, 2018 12:11
[2018-07-09 15:00] VITALS: BP 162/64
[2018-07-09 19:00] VITALS: BP 124/60
[2018-07-09] MEDS: FAMOTIDINE 20 MG TABLET. PO SCH (20:24)
[2018-07-09] MEDS: ATORVASTATIN CALCIUM 10 MG TABLET. PO SCH (20:24)
--- NOTE | 2018-07-09 22:36 | CONS ---
DATE OF CONSULTATION: 07/09/2018 REQUESTING PHYSICIAN: Dr. Figueroa. REASON FOR CONSULTATION: Blood culture positive. HISTORY OF PRESENT ILLNESS: This is an 78-year-old female with history of COPD with multiple admissions, who comes in with shortness of breath. The patient was brought in by ambulance for unable to breathe. The patient did not have any fever, did not have any nausea, vomiting, diarrhea, chest pain, abdominal pain, headache or visual symptoms. The patient has been admitted, started on Levaquin and then blood culture for some reason was done, which is now positive 2/4 with gram-positive cocci. The patient is alert, awake. The patient is back to her baseline. The patient says she is ready to go "home." PAST MEDICAL HISTORY: Positive for COPD with multiple exacerbations and multiple hospital admissions. She also has congestive heart failure with cor pulmonale. SOCIAL HISTORY: Negative for smoking, alcohol, illicit drug use. ALLERGIES: SHE IS LISTED ALLERGIC TO DOXYCYCLINE, but she denies that she is allergic to anything. CURRENT MEDICATIONS: Reviewed. The patient is on Levaquin and vancomycin. REVIEW OF SYSTEMS: As per HPI. All other systems reviewed are negative. PHYSICAL EXAMINATION: GENERAL: Alert and oriented female, not in any distress. VITAL SIGNS: Stable, afebrile. HEENT: NAD. NECK: Supple, no JVP, no lymphadenopathy. LUNGS: Clear. HEART: S1, S2 regular. ABDOMEN: Benign. EXTREMITIES: No edema, cyanosis. SKIN: Unremarkable. NEUROLOGIC: The patient is neurologically intact. LABORATORY DATA: White count is normal. BUN and creatinine is normal. Urinalysis unremarkable. MRSA screen is positive. Influenza screen is negative. Blood culture 2/4 is positive with gram-positive cocci in clusters. IMPRESSION: 1. Blood culture positive 2/4 with gram-positive cocci in clusters, can be a contaminant, can be real especially with history of methicillin resistant Staphylococcus aureus, although the patient did not have any fever. 2. Chronic obstructive pulmonary disease exacerbation. 3. Hypoxic respiratory failure. 4. Congestive heart failure. RECOMMENDATIONS: Would discontinue Levaquin. Continue vancomycin until the identification of the organism is known and then we will have further plan. Supportive care and we will continue to follow this. Thank you very much, Dr. Bueno for giving me the opportunity to participate in this patient's care. OPAL NORTON MD DR: FIOR/rito JOB#: [id number] / [id number]
[2018-07-09 23:00] VITALS: BP 187/43
[2018-07-10 03:14] VITALS: BP 123/68
[2018-07-10] MEDS: HEPARIN for SUB-Q USE 5,000 UNIT/ML VIAL. SQ SCH ×3 (03:30→21:33)
[2018-07-10 04:43] LABS: BASO % 0 % (0-3); EOS % 1 % (0-3); HEMATOCRIT 26.9 % (36.0-47.0); HEMOGLOBIN 8.8 g/dL (12.0-15.5); LYMPH # 1.7 x10^3/uL (1.0-4.8); LYMPH % 25 % (24-48); MEAN CORPUSCULAR HEMOGLOBIN 28 pg (25-35); MEAN CORPUSCULAR HGB CONC 33 g/dL (31-37); MEAN CORPUSCULAR VOLUME 85 fL (79-100); MONO # 0.5 x10^3/uL (0.0-1.1); MONO % 8 % (0-9); NEUT # 4.6 x10^3uL (1.8-7.7); NEUT % 67 % (31-73); PLATELET COUNT 192 x10^3/uL (140-400); RED BLOOD COUNT 3.18 x10^6/uL (3.50-5.40); RED CELL DISTRIBUTION WIDTH 16.5 % (11.5-14.5)
[2018-07-10 05:07] LABS: CALCIUM 8.2 mg/dL (8.5-10.1); CREATININE 1.2 mg/dL (0.6-1.0); GFR 43.2; POTASSIUM 3.6 mmol/L (3.5-5.1)
[2018-07-10 07:00] VITALS: BP 129/63
[2018-07-10] MEDS: BUDESONIDE 0.5 MG/2 ML NEBU. NEB SCH ×2 (07:54→20:44)
[2018-07-10] MEDS: IPRATRPIUM/ALBUTEROL 0.5/2.5MG 3 ML NEBU. NEB SCH ×4 (07:54→20:44)
[2018-07-10] MEDS: LACTOBACILLUS RHAMNOSUS GG 1 CAPSULE. PO SCH ×2 (08:37→21:33)
[2018-07-10] MEDS: predniSONE 20 MG TABLET PO SCH (08:37)
[2018-07-10] MEDS: CARVEDILOL 6.25 MG TABLET. PO SCH ×2 (08:38→17:39)
[2018-07-10] MEDS: ASPIRIN ENTERIC COATED 81 MG TABLET.DR. PO SCH (08:38)
[2018-07-10] MEDS: FERROUS SULFATE 325 MG TABLET. PO SCH (08:38)
[2018-07-10] MEDS: FUROSEMIDE 20 MG TABLET PO SCH (08:39)
[2018-07-10] MEDS: NYSTATIN TOPICAL POWDER 15GM BOTTLE. TP SCH ×4 (08:40→21:33)
[2018-07-10] MEDS: VANCOMYCIN 1.25 GM in IV NORMAL SALINE 250ML 250 ML IV SCH (08:40)
--- NOTE | 2018-07-10 09:21 | PDOC ---
PULMONARY PROGRESS NOTES Subjective NOT MORE SOA Vitals Vital Signs Date Time Temp Pulse Resp B/P (MAP) Pulse Ox O2 Delivery O2 Flow Rate FiO2 07/10/18 08:38 76 123/68 07/10/18 07:55 100 Nasal Cannula 3.0 07/10/18 07:00 97.7 20 97.7 General: Alert, No acute distress Lungs: Other (decrease bs) Cardiovascular: S1, S2 Abdomen: Soft, Non-tender Extremities: Other Skin: Warm Labs Laboratory Tests Test 07/09/18 05:20 07/10/18 03:55 White Blood Count 8.4 x10^3/uL (4.0-11.0) 7.0 x10^3/uL (4.0-11.0) Red Blood Count 3.04 x10^6/uL (3.50-5.40) 3.18 x10^6/uL (3.50-5.40) Hemoglobin 8.3 g/dL (12.0-15.5) 8.8 g/dL (12.0-15.5) Hematocrit 25.5 % (36.0-47.0) 26.9 % (36.0-47.0) Mean Corpuscular Volume 84 fL (79-100) 85 fL (79-100) Mean Corpuscular Hemoglobin 27 pg (25-35) 28 pg (25-35) Mean Corpuscular Hemoglobin Concent 33 g/dL (31-37) 33 g/dL (31-37) Red Cell Distribution Width 16.9 % (11.5-14.5) 16.5 % (11.5-14.5) Platelet Count 166 x10^3/uL (140-400) 192 x10^3/uL (140-400) Neutrophils (%) (Auto) 77 % (31-73) 67 % (31-73) Lymphocytes (%) (Auto) 14 % (24-48) 25 % (24-48) Monocytes (%) (Auto) 9 % (0-9) 8 % (0-9) Eosinophils (%) (Auto) 0 % (0-3) 1 % (0-3) Basophils (%) (Auto) 0 % (0-3) 0 % (0-3) Neutrophils # (Auto) 6.4 x10^3uL (1.8-7.7) 4.6 x10^3uL (1.8-7.7) Lymphocytes # (Auto) 1.2 x10^3/uL (1.0-4.8) 1.7 x10^3/uL (1.0-4.8) Monocytes # (Auto) 0.7 x10^3/uL (0.0-1.1) 0.5 x10^3/uL (0.0-1.1) Eosinophils # (Auto) 0.0 x10^3/uL (0.0-0.7) 0.0 x10^3/uL (0.0-0.7) Basophils # (Auto) 0.0 x10^3/uL (0.0-0.2) 0.0 x10^3/uL (0.0-0.2) Sodium Level 144 mmol/L (136-145) 145 mmol/L (136-145) Potassium Level 3.7 mmol/L (3.5-5.1) 3.6 mmol/L (3.5-5.1) Chloride Level 107 mmol/L (98-107) 108 mmol/L (98-107) Carbon Dioxide Level 31 mmol/L (21-32) 31 mmol/L (21-32) Anion Gap 6 (6-14) 6 (6-14) Blood Urea Nitrogen 36 mg/dL (7-20) 38 mg/dL (7-20) Creatinine 1.2 mg/dL (0.6-1.0) 1.2 mg/dL (0.6-1.0) Estimated GFR (Cockcroft-Gault) 43.2 43.2 Glucose Level 150 mg/dL (70-99) 126 mg/dL (70-99) Calcium Level 7.7 mg/dL (8.5-10.1) 8.2 mg/dL (8.5-10.1) Erythrocyte Sedimentation Rate 51 (0-25) Laboratory Tests Test 07/10/18 03:55 White Blood Count 7.0 x10^3/uL (4.0-11.0) Red Blood Count 3.18 x10^6/uL (3.50-5.40) Hemoglobin 8.8 g/dL (12.0-15.5) Hematocrit 26.9 % (36.0-47.0) Mean Corpuscular Volume 85 fL (79-100) Mean Corpuscular Hemoglobin 28 pg (25-35) Mean Corpuscular Hemoglobin Concent 33 g/dL (31-37) Red Cell Distribution Width 16.5 % (11.5-14.5) Platelet Count 192 x10^3/uL (140-400) Neutrophils (%) (Auto) 67 % (31-73) Lymphocytes (%) (Auto) 25 % (24-48) Monocytes (%) (Auto) 8 % (0-9) Eosinophils (%) (Auto) 1 % (0-3) Basophils (%) (Auto) 0 % (0-3) Neutrophils # (Auto) 4.6 x10^3uL (1.8-7.7) Lymphocytes # (Auto) 1.7 x10^3/uL (1.0-4.8) Monocytes # (Auto) 0.5 x10^3/uL (0.0-1.1) Eosinophils # (Auto) 0.0 x10^3/uL (0.0-0.7) Basophils # (Auto) 0.0 x10^3/uL (0.0-0.2) Erythrocyte Sedimentation Rate 51 (0-25) Sodium Level 145 mmol/L (136-145) Potassium Level 3.6 mmol/L (3.5-5.1) Chloride Level 108 mmol/L (98-107) Carbon Dioxide Level 31 mmol/L (21-32) Anion Gap 6 (6-14) Blood Urea Nitrogen 38 mg/dL (7-20) Creatinine 1.2 mg/dL (0.6-1.0) Estimated GFR (Cockcroft-Gault) 43.2 Glucose Level 126 mg/dL (70-99) Calcium Level 8.2 mg/dL (8.5-10.1) Medications Active Scripts Medications Dose Route/Sig Max Daily Dose Days Date Category Furosemide 20 Mg Tablet 20 Mg PO DAILY 02/21/18 Rx Nystop (Nystatin) 60 Gm Powder 1 Rea TP QID 30 01/02/18 Rx Tylenol (Acetaminophen) 325 Mg Tablet 650 Mg PO TID PRN PRN 04/11/16 Reported Aspir 81 (Aspirin) 81 Mg Tablet.dr 1 Tab PO DAILY 04/11/16 Reported Iron Supplement (Ferrous Sulfate) 325 Mg Tablet 1 Tab PO DAILY 11/10/15 Reported Advair 250-50 Diskus (Fluticasone/Salmeterol) 1 Each Disk.w.dev 1 Puff IH BID 05/06/15 Reported Duoneb 0.5-3(2.5) Mg/3 Ml (Albuterol/Ipratropium) 3 Ml Ampul.neb 3 Ml IH Q4HRS PRN 05/06/15 Reported Pravastatin Sodium 10 Mg Tablet 1 Tab PO QHS 09/16/14 Reported Carvedilol 6.25 Mg Tablet 1 Tab PO BID 09/16/14 Reported Impression . IMPRESSION: Dyspnea secondary to acute exacerbation of chronic obstructive pulmonary disease in a patient who has chronic hypoxic respiratory failure secondary to severe chronic obstructive pulmonary disease and has frequent hospitalizations on a regular basis secondary to exacerbation. She has been ruled out for pulmonary embolism in the past multiple times. She may have a component of cor pulmonale as she does have lower extremity edema. 2. Gram positive bacteremia/ ID following Plan . CONTINUE THE SAME HOME WHEN OK WITH ID 1. Continue with present bronchodilators/ DuoNebs and Pulmicort. 2. Continue with oral diuresis. 3. antibiotics per ID 4. IV steroids with gradual taper. 5. Continue present oxygen at 4 liters. 6. We will do a 6-minute walk test before discharge to assess the need for increased oxygen with ambulation. JESSE STRANGE MD Jul 10, 2018 09:21
--- NOTE | 2018-07-10 09:42 | PDOC ---
PROGRESS NOTES Chief Complaint Chief Complaint staph bacteremia 2 out of 4 bottles 07/09/18 acute on chronic hypoxic resp failure COPD exacerbation on O2 Epistaxis weakness and debility moderate malnutrition probably [id number] cor pulmonale. [id number] morbid obesity moderate PHTN recent echo EF 50% History of Present Illness History of Present Illness Levaquin discontinued Vancomycin per pharmacy-started 07/09/18 because of staph bacteremia 2/4 - ID now on board ESR mildly elevated 51 No fevers, no white count Patient complains of epistaxis mild/2 days On nasal cannula Social work note reviewed, some noncompliance from home health-I did ask the patient about this-she claims she was not participate with physical therapy as much as they wanted to Plan: Continue vancomycin Follow identification/cultures PT OT Trial of Salinase Vitals Vitals Vital Signs Date Time Temp Pulse Resp B/P (MAP) Pulse Ox O2 Delivery O2 Flow Rate FiO2 07/10/18 08:38 76 123/68 07/10/18 07:55 100 Nasal Cannula 3.0 07/10/18 07:00 97.7 20 97.7 Physical Exam General: Alert, Oriented X3, Cooperative, No acute distress Heart: Regular rate, No murmurs Lungs: Other (decrease bs) Abdomen: Normal bowel sounds, Soft, No tenderness Extremities: No clubbing, No cyanosis, No edema, No tenderness/swelling Skin: No rashes, No breakdown, No significant lesion Labs LABS Laboratory Tests Test 07/10/18 03:55 White Blood Count 7.0 x10^3/uL (4.0-11.0) Red Blood Count 3.18 x10^6/uL (3.50-5.40) Hemoglobin 8.8 g/dL (12.0-15.5) Hematocrit 26.9 % (36.0-47.0) Mean Corpuscular Volume 85 fL (79-100) Mean Corpuscular Hemoglobin 28 pg (25-35) Mean Corpuscular Hemoglobin Concent 33 g/dL (31-37) Red Cell Distribution Width 16.5 % (11.5-14.5) Platelet Count 192 x10^3/uL (140-400) Neutrophils (%) (Auto) 67 % (31-73) Lymphocytes (%) (Auto) 25 % (24-48) Monocytes (%) (Auto) 8 % (0-9) Eosinophils (%) (Auto) 1 % (0-3) Basophils (%) (Auto) 0 % (0-3) Neutrophils # (Auto) 4.6 x10^3uL (1.8-7.7) Lymphocytes # (Auto) 1.7 x10^3/uL (1.0-4.8) Monocytes # (Auto) 0.5 x10^3/uL (0.0-1.1) Eosinophils # (Auto) 0.0 x10^3/uL (0.0-0.7) Basophils # (Auto) 0.0 x10^3/uL (0.0-0.2) Erythrocyte Sedimentation Rate 51 (0-25) Sodium Level 145 mmol/L (136-145) Potassium Level 3.6 mmol/L (3.5-5.1) Chloride Level 108 mmol/L (98-107) Carbon Dioxide Level 31 mmol/L (21-32) Anion Gap 6 (6-14) Blood Urea Nitrogen 38 mg/dL (7-20) Creatinine 1.2 mg/dL (0.6-1.0) Estimated GFR (Cockcroft-Gault) 43.2 Glucose Level 126 mg/dL (70-99) Calcium Level 8.2 mg/dL (8.5-10.1) Review of Systems Review of Systems A 14 point ROS was completed with the following noted as positive: Other systems reviewed and negative. \CONSTITUTIONAL: No fever or chills EYES: No recent changes SKIN: No rash or itching CARDIOVASCULAR: No chest pain, syncope, palpitations, or edema RESPIRATORY: No SOB or cough GASTROINTESTINAL: No nausea, vomiting or abdominal pain NEUROLOGICAL: No headaches or weakness ENDOCRINE: No cold or heat intolerance GENITOURINARY: No urgency or frequency of urination MUSCULOSKELETAL: No back pain or joint pain LYMPHATICS: No enlarged lymph nodes PSYCHIATRIC: No anxiety or depression Assessment and Plan Assessmemt and Plan Problems Medical Problems: (1) COPD exacerbation Status: Acute Comment Review of Relevant I have reviewed the following items [place] (where applicable) has been applied. Labs Laboratory Tests Test 07/09/18 05:20 07/10/18 03:55 White Blood Count 8.4 x10^3/uL (4.0-11.0) 7.0 x10^3/uL (4.0-11.0) Red Blood Count 3.04 x10^6/uL (3.50-5.40) 3.18 x10^6/uL (3.50-5.40) Hemoglobin 8.3 g/dL (12.0-15.5) 8.8 g/dL (12.0-15.5) Hematocrit 25.5 % (36.0-47.0) 26.9 % (36.0-47.0) Mean Corpuscular Volume 84 fL (79-100) 85 fL (79-100) Mean Corpuscular Hemoglobin 27 pg (25-35) 28 pg (25-35) Mean Corpuscular Hemoglobin Concent 33 g/dL (31-37) 33 g/dL (31-37) Red Cell Distribution Width 16.9 % (11.5-14.5) 16.5 % (11.5-14.5) Platelet Count 166 x10^3/uL (140-400) 192 x10^3/uL (140-400) Neutrophils (%) (Auto) 77 % (31-73) 67 % (31-73) Lymphocytes (%) (Auto) 14 % (24-48) 25 % (24-48) Monocytes (%) (Auto) 9 % (0-9) 8 % (0-9) Eosinophils (%) (Auto) 0 % (0-3) 1 % (0-3) Basophils (%) (Auto) 0 % (0-3) 0 % (0-3) Neutrophils # (Auto) 6.4 x10^3uL (1.8-7.7) 4.6 x10^3uL (1.8-7.7) Lymphocytes # (Auto) 1.2 x10^3/uL (1.0-4.8) 1.7 x10^3/uL (1.0-4.8) Monocytes # (Auto) 0.7 x10^3/uL (0.0-1.1) 0.5 x10^3/uL (0.0-1.1) Eosinophils # (Auto) 0.0 x10^3/uL (0.0-0.7) 0.0 x10^3/uL (0.0-0.7) Basophils # (Auto) 0.0 x10^3/uL (0.0-0.2) 0.0 x10^3/uL (0.0-0.2) Sodium Level 144 mmol/L (136-145) 145 mmol/L (136-145) Potassium Level 3.7 mmol/L (3.5-5.1) 3.6 mmol/L (3.5-5.1) Chloride Level 107 mmol/L (98-107) 108 mmol/L (98-107) Carbon Dioxide Level 31 mmol/L (21-32) 31 mmol/L (21-32) Anion Gap 6 (6-14) 6 (6-14) Blood Urea Nitrogen 36 mg/dL (7-20) 38 mg/dL (7-20) Creatinine 1.2 mg/dL (0.6-1.0) 1.2 mg/dL (0.6-1.0) Estimated GFR (Cockcroft-Gault) 43.2 43.2 Glucose Level 150 mg/dL (70-99) 126 mg/dL (70-99) Calcium Level 7.7 mg/dL (8.5-10.1) 8.2 mg/dL (8.5-10.1) Erythrocyte Sedimentation Rate 51 (0-25) Laboratory Tests Test 07/10/18 03:55 White Blood Count 7.0 x10^3/uL (4.0-11.0) Red Blood Count 3.18 x10^6/uL (3.50-5.40) Hemoglobin 8.8 g/dL (12.0-15.5) Hematocrit 26.9 % (36.0-47.0) Mean Corpuscular Volume 85 fL (79-100) Mean Corpuscular Hemoglobin 28 pg (25-35) Mean Corpuscular Hemoglobin Concent 33 g/dL (31-37) Red Cell Distribution Width 16.5 % (11.5-14.5) Platelet Count 192 x10^3/uL (140-400) Neutrophils (%) (Auto) 67 % (31-73) Lymphocytes (%) (Auto) 25 % (24-48) Monocytes (%) (Auto) 8 % (0-9) Eosinophils (%) (Auto) 1 % (0-3) Basophils (%) (Auto) 0 % (0-3) Neutrophils # (Auto) 4.6 x10^3uL (1.8-7.7) Lymphocytes # (Auto) 1.7 x10^3/uL (1.0-4.8) Monocytes # (Auto) 0.5 x10^3/uL (0.0-1.1) Eosinophils # (Auto) 0.0 x10^3/uL (0.0-0.7) Basophils # (Auto) 0.0 x10^3/uL (0.0-0.2) Erythrocyte Sedimentation Rate 51 (0-25) Sodium Level 145 mmol/L (136-145) Potassium Level 3.6 mmol/L (3.5-5.1) Chloride Level 108 mmol/L (98-107) Carbon Dioxide Level 31 mmol/L (21-32) Anion Gap 6 (6-14) Blood Urea Nitrogen 38 mg/dL (7-20) Creatinine 1.2 mg/dL (0.6-1.0) Estimated GFR (Cockcroft-Gault) 43.2 Glucose Level 126 mg/dL (70-99) Calcium Level 8.2 mg/dL (8.5-10.1) Microbiology 07/07/18 Blood Culture - Final, Complete Medications Current Medications Albuterol Sulfate (Ventolin Neb Soln) 10 mg 1X ONCE CONT NEB Last administered on 07/07/18at 21:26; Start 07/07/18 at 20:30; Stop 07/07/18 at 20 :31; Status DC Methylprednisolone Sodium Succinate (SOLU-Medrol 125MG VIAL) 125 mg 1X ONCE IV Last administered on 07/07/18at 20:39; Start 07/07/18 at 20:30; Stop at 20:31; Status DC Nystatin (Nystop) 1 rea 1X STAT TP Last administered on 07/07/18at 20:40; Start 07/07/18 at 20:06; Stop 07/07/18 at 20:15; Status DC Vancomycin HCl (Vanco Per Pharmacy) 1 each PRN DAILY PRN MC SEE COMMENTS Last administered on 07/07/18at 22:46; Start 07/07/18 at 22:00; Stop 07/08/18 at 09 :58; Status DC Piperacillin Sod/ Tazobactam Sod (Zosyn Per Pharmacy) 1 each PRN DAILY PRN MC SEE COMMENTS; Start 07/07/18 at 22:00; Stop 07/07/18 at 22:43; Status DC Vancomycin HCl 2 gm/Sodium Chloride 500 ml @ 250 mls/hr 1X ONCE IV Last administered on 07/07/18at 22:15; Start 07/07/18 at 22:00; Stop 07/07/18 at 23 :59; Status DC Piperacillin Sod/ Tazobactam Sod 2.25 gm/Sodium Chloride 50 ml @ 100 mls/hr ONCE ONCE IV Last administered on 07/07/18at 22:12; Start 07/07/18 at 22:00; Stop 07/07/18 at 22:29; Status DC Albuterol/ Ipratropium (Duoneb) 3 ml RTQID NEB Last administered on 07/08/18at 07:58; Start 07/08/18 at 08:00; Stop 07/08/18 at 10:09; Status DC Furosemide (Lasix) 40 mg 1X ONCE IVP Last administered on 07/07/18at 22:15; Start 07/07/18 at 22:15; Stop 07/07/18 at 22:16; Status DC Vancomycin HCl (Vancomycin Trough Level) 1 each 1X ONCE MC ; Start 07/09/18 at 21:30; Stop 07/09/18 at 21:31; Status Cancel Piperacillin Sod/ Tazobactam Sod (Zosyn Per Pharmacy) 1 each PRN DAILY PRN MC SEE COMMENTS; Start 07/07/18 at 22:45; Stop 07/08/18 at 09:58; Status DC Piperacillin Sod/ Tazobactam Sod 2.25 gm/Sodium Chloride 50 ml @ 100 mls/hr Q6HRS IV Last administered on 07/08/18at 05:55; Start 07/08/18 at 06:00; Stop 07/08/18 at 09:58; Status DC Aspirin (Ecotrin) 81 mg DAILY PO Last administered on 07/10/18at 08:38; Start 07/08/18 at 10:30 Carvedilol (Coreg) 6.25 mg BIDWMEALS PO Last administered on 07/10/18at 08:38; Start 07/08/18 at 10:30 Ferrous Sulfate (Feosol) 325 mg DAILY PO Last administered on 07/10/18at 08:38 ; Start 07/08/18 at 10:30 Furosemide (Lasix) 20 mg DAILY PO Last administered on 07/10/18at 08:39; Start 07/08/18 at 10:30 Nystatin (Nystop) 1 rea QID TP Last administered on 07/10/18at 08:40; Start at 13:00 Budesonide (Pulmicort) 0.5 mg RTBID NEB Last administered on 07/10/18at 07:54; Start 07/08/18 at 10:30 Atorvastatin Calcium (Lipitor) 5 mg QHS PO Last administered on 07/09/18at 20: 24; Start 07/08/18 at 21:00 Acetaminophen (Tylenol) 650 mg PRN Q6HRS PRN PO FEVER; Start 07/08/18 at 10:00 Ondansetron HCl (Zofran) 4 mg PRN Q6HRS PRN IV NAUSEA/VOMITING; Start at 10:00 Morphine Sulfate (Morphine Sulfate) 2 mg PRN Q2HR PRN IV MODERATE TO SEVERE PAIN; Start 07/08/18 at 10:00 Tramadol HCl (Ultram) 50 mg PRN Q6HRS PRN PO MILD TO MODERATE PAIN; Start at 10:00 Docusate Sodium (Colace) 100 mg PRN DAILY PRN PO CONSTIPATION; Start 07/08/18 at 10:00 Prednisone (Prednisone) 40 mg DAILY PO Last administered on 07/10/18at 08:37; Start 07/08/18 at 10:30 Famotidine (Pepcid) 20 mg QHS PO Last administered on 07/09/18at 20:24; Start 07/08/18 at 21:00 Heparin Sodium (Porcine) (Heparin Sodium) 5,000 unit Q8HRS SQ Last administered on 07/09/18at 14:01; Start 07/08/18 at 14:00 Albuterol Sulfate (Ventolin Neb Soln) 2.5 mg RTQID NEB Last administered on at 11:45; Start 07/08/18 at 12:00; Stop 07/08/18 at 12:12; Status DC Albuterol/ Ipratropium (Duoneb) 3 ml RTQID NEB Last administered on 07/10/18at 07:54; Start 07/08/18 at 16:00 Levofloxacin/ Dextrose 100 ml @ 100 mls/hr 1X ONCE IV Last administered on at 13:17; Start 07/08/18 at 13:00; Stop 07/08/18 at 13:59; Status DC Levofloxacin/ Dextrose 50 ml @ 50 mls/hr DAILY IV Last administered on at 08:41; Start 07/09/18 at 09:00; Stop 07/09/18 at 12:03; Status DC Lactobacillus Rhamnosus (Culturelle) 1 cap BID PO Last administered on at 08:37; Start 07/08/18 at 21:00 Albuterol Sulfate (Ventolin Neb Soln) 2.5 mg PRN Q4HRS PRN NEB SHORTNESS OF BREATH; Start 07/09/18 at 08:00 Guaifenesin (Robitussin Dm) 10 ml PRN Q6HRS PRN PO COUGH; Start 07/09/18 at 08 :00 Vancomycin HCl (Vanco Per Pharmacy) 1 each PRN DAILY PRN MC SEE COMMENTS Last administered on 07/09/18at 09:12; Start 07/09/18 at 08:45 Vancomycin HCl 1.25 gm/Sodium Chloride 250 ml @ 167 mls/hr Q24H IV Last administered on 07/10/18at 08:40; Start 07/09/18 at 09:30 Vancomycin HCl (Vancomycin Trough Level) 1 each 1X ONCE MC ; Start 07/11/18 at 09:00; Stop 07/11/18 at 09:01 Active Scripts Active Furosemide 20 Mg Tablet 20 Mg PO DAILY Nystop (Nystatin) 60 Gm Powder 1 Rea TP QID 30 Days Reported Tylenol (Acetaminophen) 325 Mg Tablet 650 Mg PO TID PRN PRN Aspir 81 (Aspirin) 81 Mg Tablet.dr 1 Tab PO DAILY Iron Supplement (Ferrous Sulfate) 325 Mg Tablet 1 Tab PO DAILY Advair 250-50 Diskus (Fluticasone/Salmeterol) 1 Each Disk.w.dev 1 Puff IH BID Duoneb 0.5-3(2.5) Mg/3 Ml (Albuterol/Ipratropium) 3 Ml Ampul.neb 3 Ml IH Q4HRS PRN Pravastatin Sodium 10 Mg Tablet 1 Tab PO QHS Carvedilol 6.25 Mg Tablet 1 Tab PO BID Vitals/I & O Vital Sign - Last 24 Hours 07/09/18 07/09/18 07/09/18 07/09/18 11:00 12:43 15:00 15:30 Temp 97.7 98.0 97.7 98.0 Pulse 76 80 Resp 18 22 B/P (MAP) 109/51 (70) 162/64 (96) Pulse Ox 97 97 98 98 O2 Delivery Nasal Cannula Nasal Cannula Nasal Cannula Nasal Cannula O2 Flow Rate 3.0 3.0 07/09/18 07/09/18 07/09/18 07/09/18 17:08 19:00 20:00 20:01 Temp 97.5 97.5 Pulse 80 74 Resp 20 B/P (MAP) 162/64 124/60 (81) Pulse Ox 92 97 O2 Delivery Nasal Cannula Nasal Cannula Nasal Cannula O2 Flow Rate 3.0 3.0 07/09/18 07/10/18 07/10/18 07/10/18 23:00 03:14 07:00 07:55 Temp 97.7 97.5 97.7 97.7 97.5 97.7 Pulse 80 76 74 Resp 20 20 20 B/P (MAP) 187/43 (91) 123/68 (86) 129/63 (85) Pulse Ox 97 95 98 100 O2 Delivery Nasal Cannula Nasal Cannula Nasal Cannula Nasal Cannula O2 Flow Rate 3.0 07/10/18 08:38 Pulse 76 B/P (MAP) 123/68 Intake and Output 07/09/18 07/09/18 07/10/18 15:00 23:00 07:00 Intake Total 450 ml 780 ml Output Total 100 ml Balance 450 ml 780 ml -100 ml TESS LOZANO MD Jul 10, 2018 09:42
[2018-07-10] MEDS ORDERED: SODIUM CHLORIDE 0.65% NASAL SPRAY 45ML BOTTLE. NS PRN (09:45)
[2018-07-10 11:00] VITALS: BP 131/59
--- NOTE | 2018-07-10 11:56 | PDOC ---
Infectious Disease Note Subjective Subjective pt is feeling good, up in chair ROS ROS no n/v/d/sob/fever Vital Sign Vital Signs Vital Signs Date Time Temp Pulse Resp B/P (MAP) Pulse Ox O2 Delivery O2 Flow Rate FiO2 07/10/18 11:37 98 Nasal Cannula 3.0 07/10/18 08:38 76 123/68 07/10/18 07:00 97.7 20 97.7 Physical Exam PHYSICAL EXAM GENERAL: Alert and oriented female, not in any distress. VITAL SIGNS: Stable, afebrile. HEENT: NAD. NECK: Supple, no JVP, no lymphadenopathy. LUNGS: Clear. HEART: S1, S2 regular. ABDOMEN: Benign. EXTREMITIES: No edema, cyanosis. SKIN: Unremarkable. NEUROLOGIC: The patient is neurologically intact. Labs Lab Laboratory Tests Test 07/10/18 03:55 White Blood Count 7.0 x10^3/uL (4.0-11.0) Red Blood Count 3.18 x10^6/uL (3.50-5.40) Hemoglobin 8.8 g/dL (12.0-15.5) Hematocrit 26.9 % (36.0-47.0) Mean Corpuscular Volume 85 fL (79-100) Mean Corpuscular Hemoglobin 28 pg (25-35) Mean Corpuscular Hemoglobin Concent 33 g/dL (31-37) Red Cell Distribution Width 16.5 % (11.5-14.5) Platelet Count 192 x10^3/uL (140-400) Neutrophils (%) (Auto) 67 % (31-73) Lymphocytes (%) (Auto) 25 % (24-48) Monocytes (%) (Auto) 8 % (0-9) Eosinophils (%) (Auto) 1 % (0-3) Basophils (%) (Auto) 0 % (0-3) Neutrophils # (Auto) 4.6 x10^3uL (1.8-7.7) Lymphocytes # (Auto) 1.7 x10^3/uL (1.0-4.8) Monocytes # (Auto) 0.5 x10^3/uL (0.0-1.1) Eosinophils # (Auto) 0.0 x10^3/uL (0.0-0.7) Basophils # (Auto) 0.0 x10^3/uL (0.0-0.2) Erythrocyte Sedimentation Rate 51 (0-25) Sodium Level 145 mmol/L (136-145) Potassium Level 3.6 mmol/L (3.5-5.1) Chloride Level 108 mmol/L (98-107) Carbon Dioxide Level 31 mmol/L (21-32) Anion Gap 6 (6-14) Blood Urea Nitrogen 38 mg/dL (7-20) Creatinine 1.2 mg/dL (0.6-1.0) Estimated GFR (Cockcroft-Gault) 43.2 Glucose Level 126 mg/dL (70-99) Calcium Level 8.2 mg/dL (8.5-10.1) Micro BLOOD CULTURE Final GRAM POSITIVE COCCI IN CLUSTERS, SUGGESTIVE OF STAPH, IN 2 OF 4 BOTTLES, TWO SETS DRAWN. ONE SET IS POSITIVE. CALLED TO ALBERTA TALBOT RN ON 5N AT 8:05 ON 07/09/18 DW MT SENT TO [facility] FOR FURTHER WORKUUP Objective Assessment 1. Blood culture positive 2/4 with gram-positive cocci in clusters, can be a contaminant, can be real especially with history of methicillin resistant Staphylococcus aureus, although the patient did not have any fever. 2. Chronic obstructive pulmonary disease exacerbation. 3. Hypoxic respiratory failure. 4. Congestive heart failure. Plan Plan of Care iv vanc check culture and adjust OPAL NORTON MD Jul 10, 2018 11:56
[2018-07-10] MEDS: VANCOMYCIN PER PHARMACY MC PRN (13:26)
[2018-07-10 15:00] VITALS: BP 122/53
[2018-07-10 19:00] VITALS: BP 115/50
[2018-07-10] MEDS: ATORVASTATIN CALCIUM 10 MG TABLET. PO SCH (21:33)
[2018-07-10] MEDS: FAMOTIDINE 20 MG TABLET. PO SCH (21:33)
[2018-07-10 23:00] VITALS: BP 145/59
[2018-07-11 03:00] VITALS: BP 140/60
[2018-07-11] MEDS: HEPARIN for SUB-Q USE 5,000 UNIT/ML VIAL. SQ SCH ×3 (05:25→21:13)
[2018-07-11 07:00] VITALS: BP 140/60
[2018-07-11] MEDS: BUDESONIDE 0.5 MG/2 ML NEBU. NEB SCH ×2 (08:03→19:28)
[2018-07-11] MEDS: IPRATRPIUM/ALBUTEROL 0.5/2.5MG 3 ML NEBU. NEB SCH ×4 (08:03→19:28)
[2018-07-11] MEDS: NYSTATIN TOPICAL POWDER 15GM BOTTLE. TP SCH ×4 (09:00→21:13)
[2018-07-11 09:19] LABS: BASO # 0.1 x10^3/uL (0.0-0.2); BASO % 1 % (0-3); EOS # 0.1 x10^3/uL (0.0-0.7); EOS % 1 % (0-3); HEMOGLOBIN 9.3 g/dL (12.0-15.5); LYMPH # 2.3 x10^3/uL (1.0-4.8); LYMPH % 34 % (24-48); MEAN CORPUSCULAR HEMOGLOBIN 28 pg (25-35); MEAN CORPUSCULAR HGB CONC 33 g/dL (31-37); MEAN CORPUSCULAR VOLUME 84 fL (79-100); MONO # 0.4 x10^3/uL (0.0-1.1); MONO % 6 % (0-9); NEUT # 4.1 x10^3uL (1.8-7.7); NEUT % 59 % (31-73); PLATELET COUNT 218 x10^3/uL (140-400); RED BLOOD COUNT 3.33 x10^6/uL (3.50-5.40); RED CELL DISTRIBUTION WIDTH 16.6 % (11.5-14.5)
[2018-07-11] MEDS: CARVEDILOL 6.25 MG TABLET. PO SCH ×2 (09:23→17:04)
[2018-07-11] MEDS: predniSONE 20 MG TABLET PO SCH (09:23)
[2018-07-11] MEDS: ASPIRIN ENTERIC COATED 81 MG TABLET.DR. PO SCH (09:24)
[2018-07-11] MEDS: FUROSEMIDE 20 MG TABLET PO SCH (09:24)
[2018-07-11] MEDS: LACTOBACILLUS RHAMNOSUS GG 1 CAPSULE. PO SCH ×2 (09:24→21:12)
[2018-07-11] MEDS: FERROUS SULFATE 325 MG TABLET. PO SCH (09:26)
[2018-07-11] MEDS: VANCOMYCIN 1.25 GM in IV NORMAL SALINE 250ML 250 ML IV SCH (09:30)
[2018-07-11 09:45] LABS: CALCIUM 8.3 mg/dL (8.5-10.1); CREATININE 1.2 mg/dL (0.6-1.0); GFR 43.2; POTASSIUM 3.5 mmol/L (3.5-5.1)
[2018-07-11 09:50] LABS: VANC TR 15.4 mcg/mL (10.0-20.0)
--- NOTE | 2018-07-11 09:56 | PDOC ---
Infectious Disease Note Subjective Subjective pt is feeling good, up in chair ROS ROS no n/v/d/sob Vital Sign Vital Signs Vital Signs Date Time Temp Pulse Resp B/P (MAP) Pulse Ox O2 Delivery O2 Flow Rate FiO2 07/11/18 09:23 66 140/60 07/11/18 08:04 97 Nasal Cannula 3.0 07/11/18 07:00 97.6 18 97.6 Physical Exam PHYSICAL EXAM GENERAL: Alert and oriented female, not in any distress. VITAL SIGNS: Stable, afebrile. HEENT: NAD. NECK: Supple, no JVP, no lymphadenopathy. LUNGS: Clear. HEART: S1, S2 regular. ABDOMEN: Benign. EXTREMITIES: No edema, cyanosis. SKIN: Unremarkable. NEUROLOGIC: The patient is neurologically intact. Labs Lab Laboratory Tests Test 07/11/18 09:10 White Blood Count 7.0 x10^3/uL (4.0-11.0) Red Blood Count 3.33 x10^6/uL (3.50-5.40) Hemoglobin 9.3 g/dL (12.0-15.5) Hematocrit 28.0 % (36.0-47.0) Mean Corpuscular Volume 84 fL (79-100) Mean Corpuscular Hemoglobin 28 pg (25-35) Mean Corpuscular Hemoglobin Concent 33 g/dL (31-37) Red Cell Distribution Width 16.6 % (11.5-14.5) Platelet Count 218 x10^3/uL (140-400) Neutrophils (%) (Auto) 59 % (31-73) Lymphocytes (%) (Auto) 34 % (24-48) Monocytes (%) (Auto) 6 % (0-9) Eosinophils (%) (Auto) 1 % (0-3) Basophils (%) (Auto) 1 % (0-3) Neutrophils # (Auto) 4.1 x10^3uL (1.8-7.7) Lymphocytes # (Auto) 2.3 x10^3/uL (1.0-4.8) Monocytes # (Auto) 0.4 x10^3/uL (0.0-1.1) Eosinophils # (Auto) 0.1 x10^3/uL (0.0-0.7) Basophils # (Auto) 0.1 x10^3/uL (0.0-0.2) Sodium Level 146 mmol/L (136-145) Potassium Level 3.5 mmol/L (3.5-5.1) Chloride Level 107 mmol/L (98-107) Carbon Dioxide Level 32 mmol/L (21-32) Anion Gap 7 (6-14) Blood Urea Nitrogen 35 mg/dL (7-20) Creatinine 1.2 mg/dL (0.6-1.0) Estimated GFR (Cockcroft-Gault) 43.2 Glucose Level 162 mg/dL (70-99) Calcium Level 8.3 mg/dL (8.5-10.1) Micro BLOOD CULTURE Final GRAM POSITIVE COCCI IN CLUSTERS, SUGGESTIVE OF STAPH, IN 2 OF 4 BOTTLES, TWO SETS DRAWN. ONE SET IS POSITIVE. CALLED TO ALBERTA TALBOT RN ON 5N AT 8:05 ON 07/09/18 DW MT SENT TO LAB [facility] FOR FURTHER WORKUUP Objective Assessment 1. Blood culture positive 2/4 with gram-positive cocci in clusters, can be a contaminant, can be real especially with history of methicillin resistant Staphylococcus aureus, although the patient did not have any fever. 2. Chronic obstructive pulmonary disease exacerbation. 3. Hypoxic respiratory failure. 4. Congestive heart failure. Plan Plan of Care iv vanc check culture and adjust final ID still pending OPAL NORTON MD Jul 11, 2018 09:56
--- NOTE | 2018-07-11 10:21 | PDOC ---
PULMONARY PROGRESS NOTES Subjective NOT MORE SOA Vitals Vital Signs Date Time Temp Pulse Resp B/P (MAP) Pulse Ox O2 Delivery O2 Flow Rate FiO2 07/11/18 09:23 66 140/60 07/11/18 08:04 97 Nasal Cannula 3.0 07/11/18 07:00 97.6 18 97.6 General: Alert, No acute distress Lungs: Other (decrease bs) Cardiovascular: S1, S2 Abdomen: Soft, Non-tender Extremities: Other Skin: Warm Labs Laboratory Tests Test 07/10/18 03:55 07/11/18 09:10 White Blood Count 7.0 x10^3/uL (4.0-11.0) 7.0 x10^3/uL (4.0-11.0) Red Blood Count 3.18 x10^6/uL (3.50-5.40) 3.33 x10^6/uL (3.50-5.40) Hemoglobin 8.8 g/dL (12.0-15.5) 9.3 g/dL (12.0-15.5) Hematocrit 26.9 % (36.0-47.0) 28.0 % (36.0-47.0) Mean Corpuscular Volume 85 fL (79-100) 84 fL (79-100) Mean Corpuscular Hemoglobin 28 pg (25-35) 28 pg (25-35) Mean Corpuscular Hemoglobin Concent 33 g/dL (31-37) 33 g/dL (31-37) Red Cell Distribution Width 16.5 % (11.5-14.5) 16.6 % (11.5-14.5) Platelet Count 192 x10^3/uL (140-400) 218 x10^3/uL (140-400) Neutrophils (%) (Auto) 67 % (31-73) 59 % (31-73) Lymphocytes (%) (Auto) 25 % (24-48) 34 % (24-48) Monocytes (%) (Auto) 8 % (0-9) 6 % (0-9) Eosinophils (%) (Auto) 1 % (0-3) 1 % (0-3) Basophils (%) (Auto) 0 % (0-3) 1 % (0-3) Neutrophils # (Auto) 4.6 x10^3uL (1.8-7.7) 4.1 x10^3uL (1.8-7.7) Lymphocytes # (Auto) 1.7 x10^3/uL (1.0-4.8) 2.3 x10^3/uL (1.0-4.8) Monocytes # (Auto) 0.5 x10^3/uL (0.0-1.1) 0.4 x10^3/uL (0.0-1.1) Eosinophils # (Auto) 0.0 x10^3/uL (0.0-0.7) 0.1 x10^3/uL (0.0-0.7) Basophils # (Auto) 0.0 x10^3/uL (0.0-0.2) 0.1 x10^3/uL (0.0-0.2) Erythrocyte Sedimentation Rate 51 (0-25) Sodium Level 145 mmol/L (136-145) 146 mmol/L (136-145) Potassium Level 3.6 mmol/L (3.5-5.1) 3.5 mmol/L (3.5-5.1) Chloride Level 108 mmol/L (98-107) 107 mmol/L (98-107) Carbon Dioxide Level 31 mmol/L (21-32) 32 mmol/L (21-32) Anion Gap 6 (6-14) 7 (6-14) Blood Urea Nitrogen 38 mg/dL (7-20) 35 mg/dL (7-20) Creatinine 1.2 mg/dL (0.6-1.0) 1.2 mg/dL (0.6-1.0) Estimated GFR (Cockcroft-Gault) 43.2 43.2 Glucose Level 126 mg/dL (70-99) 162 mg/dL (70-99) Calcium Level 8.2 mg/dL (8.5-10.1) 8.3 mg/dL (8.5-10.1) Vancomycin Level Trough 15.4 mcg/mL (10.0-20.0) Vancomycin Last Dose Date 07/10/18 Vancomycin Last Dose Time 0900 Laboratory Tests Test 07/11/18 09:10 White Blood Count 7.0 x10^3/uL (4.0-11.0) Red Blood Count 3.33 x10^6/uL (3.50-5.40) Hemoglobin 9.3 g/dL (12.0-15.5) Hematocrit 28.0 % (36.0-47.0) Mean Corpuscular Volume 84 fL (79-100) Mean Corpuscular Hemoglobin 28 pg (25-35) Mean Corpuscular Hemoglobin Concent 33 g/dL (31-37) Red Cell Distribution Width 16.6 % (11.5-14.5) Platelet Count 218 x10^3/uL (140-400) Neutrophils (%) (Auto) 59 % (31-73) Lymphocytes (%) (Auto) 34 % (24-48) Monocytes (%) (Auto) 6 % (0-9) Eosinophils (%) (Auto) 1 % (0-3) Basophils (%) (Auto) 1 % (0-3) Neutrophils # (Auto) 4.1 x10^3uL (1.8-7.7) Lymphocytes # (Auto) 2.3 x10^3/uL (1.0-4.8) Monocytes # (Auto) 0.4 x10^3/uL (0.0-1.1) Eosinophils # (Auto) 0.1 x10^3/uL (0.0-0.7) Basophils # (Auto) 0.1 x10^3/uL (0.0-0.2) Sodium Level 146 mmol/L (136-145) Potassium Level 3.5 mmol/L (3.5-5.1) Chloride Level 107 mmol/L (98-107) Carbon Dioxide Level 32 mmol/L (21-32) Anion Gap 7 (6-14) Blood Urea Nitrogen 35 mg/dL (7-20) Creatinine 1.2 mg/dL (0.6-1.0) Estimated GFR (Cockcroft-Gault) 43.2 Glucose Level 162 mg/dL (70-99) Calcium Level 8.3 mg/dL (8.5-10.1) Vancomycin Level Trough 15.4 mcg/mL (10.0-20.0) Vancomycin Last Dose Date 07/10/18 Vancomycin Last Dose Time 0900 Medications Active Scripts Medications Dose Route/Sig Max Daily Dose Days Date Category Furosemide 20 Mg Tablet 20 Mg PO DAILY 02/21/18 Rx Nystop (Nystatin) 60 Gm Powder 1 Rea TP QID 30 01/02/18 Rx Tylenol (Acetaminophen) 325 Mg Tablet 650 Mg PO TID PRN PRN 04/11/16 Reported Aspir 81 (Aspirin) 81 Mg Tablet.dr 1 Tab PO DAILY 04/11/16 Reported Iron Supplement (Ferrous Sulfate) 325 Mg Tablet 1 Tab PO DAILY 11/10/15 Reported Advair 250-50 Diskus (Fluticasone/Salmeterol) 1 Each Disk.w.dev 1 Puff IH BID 05/06/15 Reported Duoneb 0.5-3(2.5) Mg/3 Ml (Albuterol/Ipratropium) 3 Ml Ampul.neb 3 Ml IH Q4HRS PRN 05/06/15 Reported Pravastatin Sodium 10 Mg Tablet 1 Tab PO QHS 09/16/14 Reported Carvedilol 6.25 Mg Tablet 1 Tab PO BID 09/16/14 Reported Impression . IMPRESSION: Dyspnea secondary to acute exacerbation of chronic obstructive pulmonary disease in a patient who has chronic hypoxic respiratory failure secondary to severe chronic obstructive pulmonary disease and has frequent hospitalizations on a regular basis secondary to exacerbation. She has been ruled out for pulmonary embolism in the past multiple times. She may have a component of cor pulmonale as she does have lower extremity edema. 2. Gram positive bacteremia/ ID following Plan . HOME WHEN ID ON BC AVAILABLE ORAL MED FOLLOW UP IN OFFICE JESSE STRANGE MD Jul 11, 2018 10:21
--- NOTE | 2018-07-11 10:24 | PDOC ---
PROGRESS NOTES Chief Complaint Chief Complaint staph bacteremia 2 out of 4 bottles 07/09/18 acute on chronic hypoxic resp failure COPD exacerbation on O2 Epistaxis weakness and debility moderate malnutrition probably [id number]-poigapn cor pulmonale. ckd3 morbid obesity moderate PHTN recent echo EF 50% History of Present Illness History of Present Illness Levaquin discontinued Vancomycin per pharmacy-started 07/09/18 because of staph bacteremia 2/4 - ID now on board ESR mildly elevated 51 No fevers, no white count Patient complains of epistaxis mild/2 days - seems to have resolved On nasal cannula Social work note reviewed, some noncompliance from home health-I did ask the patient about this-she claims she was not participate with physical therapy as much as they wanted to Plan: Continue vancomycin Follow identification/cultures PT OT cont Salinase - seems to be working Vitals Vitals Vital Signs Date Time Temp Pulse Resp B/P (MAP) Pulse Ox O2 Delivery O2 Flow Rate FiO2 07/11/18 09:23 66 140/60 07/11/18 08:04 97 Nasal Cannula 3.0 07/11/18 07:00 97.6 18 97.6 Physical Exam Physical Exam GENERAL: Alert and oriented female, not in any distress. VITAL SIGNS: Stable, afebrile. HEENT: NAD. NECK: Supple, no JVP, no lymphadenopathy. LUNGS: Clear. HEART: S1, S2 regular. ABDOMEN: Benign. EXTREMITIES: No edema, cyanosis. SKIN: Unremarkable. NEUROLOGIC: The patient is neurologically intact. General: Alert, Oriented X3, Cooperative, No acute distress Heart: Regular rate, No murmurs Lungs: Other (decrease bs) Abdomen: Normal bowel sounds, Soft, No tenderness Extremities: No clubbing, No cyanosis, No edema, No tenderness/swelling Skin: No rashes, No breakdown, No significant lesion Labs LABS Laboratory Tests Test 07/11/18 09:10 White Blood Count 7.0 x10^3/uL (4.0-11.0) Red Blood Count 3.33 x10^6/uL (3.50-5.40) Hemoglobin 9.3 g/dL (12.0-15.5) Hematocrit 28.0 % (36.0-47.0) Mean Corpuscular Volume 84 fL (79-100) Mean Corpuscular Hemoglobin 28 pg (25-35) Mean Corpuscular Hemoglobin Concent 33 g/dL (31-37) Red Cell Distribution Width 16.6 % (11.5-14.5) Platelet Count 218 x10^3/uL (140-400) Neutrophils (%) (Auto) 59 % (31-73) Lymphocytes (%) (Auto) 34 % (24-48) Monocytes (%) (Auto) 6 % (0-9) Eosinophils (%) (Auto) 1 % (0-3) Basophils (%) (Auto) 1 % (0-3) Neutrophils # (Auto) 4.1 x10^3uL (1.8-7.7) Lymphocytes # (Auto) 2.3 x10^3/uL (1.0-4.8) Monocytes # (Auto) 0.4 x10^3/uL (0.0-1.1) Eosinophils # (Auto) 0.1 x10^3/uL (0.0-0.7) Basophils # (Auto) 0.1 x10^3/uL (0.0-0.2) Sodium Level 146 mmol/L (136-145) Potassium Level 3.5 mmol/L (3.5-5.1) Chloride Level 107 mmol/L (98-107) Carbon Dioxide Level 32 mmol/L (21-32) Anion Gap 7 (6-14) Blood Urea Nitrogen 35 mg/dL (7-20) Creatinine 1.2 mg/dL (0.6-1.0) Estimated GFR (Cockcroft-Gault) 43.2 Glucose Level 162 mg/dL (70-99) Calcium Level 8.3 mg/dL (8.5-10.1) Vancomycin Level Trough 15.4 mcg/mL (10.0-20.0) Vancomycin Last Dose Date 07/10/18 Vancomycin Last Dose Time 0900 Review of Systems Review of Systems A 14 point ROS was completed with the following noted as positive: Other systems reviewed and negative. \CONSTITUTIONAL: No fever or chills EYES: No recent changes SKIN: No rash or itching CARDIOVASCULAR: No chest pain, syncope, palpitations, or edema RESPIRATORY: No SOB or cough GASTROINTESTINAL: No nausea, vomiting or abdominal pain NEUROLOGICAL: No headaches or weakness ENDOCRINE: No cold or heat intolerance GENITOURINARY: No urgency or frequency of urination MUSCULOSKELETAL: No back pain or joint pain LYMPHATICS: No enlarged lymph nodes PSYCHIATRIC: No anxiety or depression Assessment and Plan Assessmemt and Plan Problems Medical Problems: (1) COPD exacerbation Status: Acute Comment Review of Relevant I have reviewed the following items [place] (where applicable) has been applied. Labs Laboratory Tests Test 07/10/18 03:55 07/11/18 09:10 White Blood Count 7.0 x10^3/uL (4.0-11.0) 7.0 x10^3/uL (4.0-11.0) Red Blood Count 3.18 x10^6/uL (3.50-5.40) 3.33 x10^6/uL (3.50-5.40) Hemoglobin 8.8 g/dL (12.0-15.5) 9.3 g/dL (12.0-15.5) Hematocrit 26.9 % (36.0-47.0) 28.0 % (36.0-47.0) Mean Corpuscular Volume 85 fL (79-100) 84 fL (79-100) Mean Corpuscular Hemoglobin 28 pg (25-35) 28 pg (25-35) Mean Corpuscular Hemoglobin Concent 33 g/dL (31-37) 33 g/dL (31-37) Red Cell Distribution Width 16.5 % (11.5-14.5) 16.6 % (11.5-14.5) Platelet Count 192 x10^3/uL (140-400) 218 x10^3/uL (140-400) Neutrophils (%) (Auto) 67 % (31-73) 59 % (31-73) Lymphocytes (%) (Auto) 25 % (24-48) 34 % (24-48) Monocytes (%) (Auto) 8 % (0-9) 6 % (0-9) Eosinophils (%) (Auto) 1 % (0-3) 1 % (0-3) Basophils (%) (Auto) 0 % (0-3) 1 % (0-3) Neutrophils # (Auto) 4.6 x10^3uL (1.8-7.7) 4.1 x10^3uL (1.8-7.7) Lymphocytes # (Auto) 1.7 x10^3/uL (1.0-4.8) 2.3 x10^3/uL (1.0-4.8) Monocytes # (Auto) 0.5 x10^3/uL (0.0-1.1) 0.4 x10^3/uL (0.0-1.1) Eosinophils # (Auto) 0.0 x10^3/uL (0.0-0.7) 0.1 x10^3/uL (0.0-0.7) Basophils # (Auto) 0.0 x10^3/uL (0.0-0.2) 0.1 x10^3/uL (0.0-0.2) Erythrocyte Sedimentation Rate 51 (0-25) Sodium Level 145 mmol/L (136-145) 146 mmol/L (136-145) Potassium Level 3.6 mmol/L (3.5-5.1) 3.5 mmol/L (3.5-5.1) Chloride Level 108 mmol/L (98-107) 107 mmol/L (98-107) Carbon Dioxide Level 31 mmol/L (21-32) 32 mmol/L (21-32) Anion Gap 6 (6-14) 7 (6-14) Blood Urea Nitrogen 38 mg/dL (7-20) 35 mg/dL (7-20) Creatinine 1.2 mg/dL (0.6-1.0) 1.2 mg/dL (0.6-1.0) Estimated GFR (Cockcroft-Gault) 43.2 43.2 Glucose Level 126 mg/dL (70-99) 162 mg/dL (70-99) Calcium Level 8.2 mg/dL (8.5-10.1) 8.3 mg/dL (8.5-10.1) Vancomycin Level Trough 15.4 mcg/mL (10.0-20.0) Vancomycin Last Dose Date 07/10/18 Vancomycin Last Dose Time 0900 Laboratory Tests Test 07/11/18 09:10 White Blood Count 7.0 x10^3/uL (4.0-11.0) Red Blood Count 3.33 x10^6/uL (3.50-5.40) Hemoglobin 9.3 g/dL (12.0-15.5) Hematocrit 28.0 % (36.0-47.0) Mean Corpuscular Volume 84 fL (79-100) Mean Corpuscular Hemoglobin 28 pg (25-35) Mean Corpuscular Hemoglobin Concent 33 g/dL (31-37) Red Cell Distribution Width 16.6 % (11.5-14.5) Platelet Count 218 x10^3/uL (140-400) Neutrophils (%) (Auto) 59 % (31-73) Lymphocytes (%) (Auto) 34 % (24-48) Monocytes (%) (Auto) 6 % (0-9) Eosinophils (%) (Auto) 1 % (0-3) Basophils (%) (Auto) 1 % (0-3) Neutrophils # (Auto) 4.1 x10^3uL (1.8-7.7) Lymphocytes # (Auto) 2.3 x10^3/uL (1.0-4.8) Monocytes # (Auto) 0.4 x10^3/uL (0.0-1.1) Eosinophils # (Auto) 0.1 x10^3/uL (0.0-0.7) Basophils # (Auto) 0.1 x10^3/uL (0.0-0.2) Sodium Level 146 mmol/L (136-145) Potassium Level 3.5 mmol/L (3.5-5.1) Chloride Level 107 mmol/L (98-107) Carbon Dioxide Level 32 mmol/L (21-32) Anion Gap 7 (6-14) Blood Urea Nitrogen 35 mg/dL (7-20) Creatinine 1.2 mg/dL (0.6-1.0) Estimated GFR (Cockcroft-Gault) 43.2 Glucose Level 162 mg/dL (70-99) Calcium Level 8.3 mg/dL (8.5-10.1) Vancomycin Level Trough 15.4 mcg/mL (10.0-20.0) Vancomycin Last Dose Date 07/10/18 Vancomycin Last Dose Time 0900 Microbiology 07/07/18 Blood Culture - Final, Complete Medications Current Medications Albuterol Sulfate (Ventolin Neb Soln) 10 mg 1X ONCE CONT NEB Last administered on 07/07/18at 21:26; Start 07/07/18 at 20:30; Stop 07/07/18 at 20 :31; Status DC Methylprednisolone Sodium Succinate (SOLU-Medrol 125MG VIAL) 125 mg 1X ONCE IV Last administered on 07/07/18at 20:39; Start 07/07/18 at 20:30; Stop at 20:31; Status DC Nystatin (Nystop) 1 rea 1X STAT TP Last administered on 07/07/18at 20:40; Start 07/07/18 at 20:06; Stop 07/07/18 at 20:15; Status DC Vancomycin HCl (Vanco Per Pharmacy) 1 each PRN DAILY PRN MC SEE COMMENTS Last administered on 07/07/18at 22:46; Start 07/07/18 at 22:00; Stop 07/08/18 at 09 :58; Status DC Piperacillin Sod/ Tazobactam Sod (Zosyn Per Pharmacy) 1 each PRN DAILY PRN MC SEE COMMENTS; Start 07/07/18 at 22:00; Stop 07/07/18 at 22:43; Status DC Vancomycin HCl 2 gm/Sodium Chloride 500 ml @ 250 mls/hr 1X ONCE IV Last administered on 07/07/18at 22:15; Start 07/07/18 at 22:00; Stop 07/07/18 at 23 :59; Status DC Piperacillin Sod/ Tazobactam Sod 2.25 gm/Sodium Chloride 50 ml @ 100 mls/hr ONCE ONCE IV Last administered on 07/07/18at 22:12; Start 07/07/18 at 22:00; Stop 07/07/18 at 22:29; Status DC Albuterol/ Ipratropium (Duoneb) 3 ml RTQID NEB Last administered on 07/08/18at 07:58; Start 07/08/18 at 08:00; Stop 07/08/18 at 10:09; Status DC Furosemide (Lasix) 40 mg 1X ONCE IVP Last administered on 07/07/18at 22:15; Start 07/07/18 at 22:15; Stop 07/07/18 at 22:16; Status DC Vancomycin HCl (Vancomycin Trough Level) 1 each 1X ONCE MC ; Start 07/09/18 at 21:30; Stop 07/09/18 at 21:31; Status Cancel Piperacillin Sod/ Tazobactam Sod (Zosyn Per Pharmacy) 1 each PRN DAILY PRN MC SEE COMMENTS; Start 07/07/18 at 22:45; Stop 07/08/18 at 09:58; Status DC Piperacillin Sod/ Tazobactam Sod 2.25 gm/Sodium Chloride 50 ml @ 100 mls/hr Q6HRS IV Last administered on 07/08/18at 05:55; Start 07/08/18 at 06:00; Stop 07/08/18 at 09:58; Status DC Aspirin (Ecotrin) 81 mg DAILY PO Last administered on 07/11/18 09:24; Start 07/08/18 at 10:30 Carvedilol (Coreg) 6.25 mg BIDWMEALS PO Last administered on 07/11/18 09:23; Start 07/08/18 at 10:30 Ferrous Sulfate (Feosol) 325 mg DAILY PO Last administered on 07/11/18 09:26 ; Start 07/08/18 at 10:30 Furosemide (Lasix) 20 mg DAILY PO Last administered on 07/11/18 09:24; Start 07/08/18 at 10:30 Nystatin (Nystop) 1 rea QID TP Last administered on 07/11/18at 09:00; Start at 13:00 Budesonide (Pulmicort) 0.5 mg RTBID NEB Last administered on 07/11/18 08:03; Start 07/08/18 at 10:30 Atorvastatin Calcium (Lipitor) 5 mg QHS PO Last administered on 07/10/18at 21: 33; Start 07/08/18 at 21:00 Acetaminophen (Tylenol) 650 mg PRN Q6HRS PRN PO FEVER; Start 07/08/18 at 10:00 Ondansetron HCl (Zofran) 4 mg PRN Q6HRS PRN IV NAUSEA/VOMITING; Start at 10:00 Morphine Sulfate (Morphine Sulfate) 2 mg PRN Q2HR PRN IV MODERATE TO SEVERE PAIN; Start 07/08/18 at 10:00 Tramadol HCl (Ultram) 50 mg PRN Q6HRS PRN PO MILD TO MODERATE PAIN; Start at 10:00 Docusate Sodium (Colace) 100 mg PRN DAILY PRN PO CONSTIPATION; Start 07/08/18 at 10:00 Prednisone (Prednisone) 40 mg DAILY PO Last administered on 07/11/18at 09:23; Start 07/08/18 at 10:30 Famotidine (Pepcid) 20 mg QHS PO Last administered on 07/10/18at 21:33; Start 07/08/18 at 21:00 Heparin Sodium (Porcine) (Heparin Sodium) 5,000 unit Q8HRS SQ Last administered on 07/10/18at 14:50; Start 07/08/18 at 14:00 Albuterol Sulfate (Ventolin Neb Soln) 2.5 mg RTQID NEB Last administered on at 11:45; Start 07/08/18 at 12:00; Stop 07/08/18 at 12:12; Status DC Albuterol/ Ipratropium (Duoneb) 3 ml RTQID NEB Last administered on 07/11/18at 08:03; Start 07/08/18 at 16:00 Levofloxacin/ Dextrose 100 ml @ 100 mls/hr 1X ONCE IV Last administered on at 13:17; Start 07/08/18 at 13:00; Stop 07/08/18 at 13:59; Status DC Levofloxacin/ Dextrose 50 ml @ 50 mls/hr DAILY IV Last administered on at 08:41; Start 07/09/18 at 09:00; Stop 07/09/18 at 12:03; Status DC Lactobacillus Rhamnosus (Culturelle) 1 cap BID PO Last administered on at 09:24; Start 07/08/18 at 21:00 Albuterol Sulfate (Ventolin Neb Soln) 2.5 mg PRN Q4HRS PRN NEB SHORTNESS OF BREATH; Start 07/09/18 at 08:00 Guaifenesin (Robitussin Dm) 10 ml PRN Q6HRS PRN PO COUGH; Start 07/09/18 at 08 :00 Vancomycin HCl (Vanco Per Pharmacy) 1 each PRN DAILY PRN MC SEE COMMENTS Last administered on 07/10/18at 13:26; Start 07/09/18 at 08:45 Vancomycin HCl 1.25 gm/Sodium Chloride 250 ml @ 167 mls/hr Q24H IV Last administered on 07/10/18at 08:40; Start 07/09/18 at 09:30 Vancomycin HCl (Vancomycin Trough Level) 1 each 1X ONCE MC ; Start 07/11/18 at 09:00; Stop 07/11/18 at 09:01; Status DC Sodium Chloride (Saline Mist Nasal) 1 rea PRN Q1HR PRN NS NASAL CONGESTION; Start 07/10/18 at 09:45 Active Scripts Active Furosemide 20 Mg Tablet 20 Mg PO DAILY Nystop (Nystatin) 60 Gm Powder 1 Rea TP QID 30 Days Reported Tylenol (Acetaminophen) 325 Mg Tablet 650 Mg PO TID PRN PRN Aspir 81 (Aspirin) 81 Mg Tablet. 1 Tab PO DAILY Iron Supplement (Ferrous Sulfate) 325 Mg Tablet 1 Tab PO DAILY Advair 250-50 Diskus (Fluticasone/Salmeterol) 1 Each Disk.w.dev 1 Puff IH BID Duoneb 0.5-3(2.5) Mg/3 Ml (Albuterol/Ipratropium) 3 Ml Ampul.neb 3 Ml IH Q4HRS PRN Pravastatin Sodium 10 Mg Tablet 1 Tab PO QHS Carvedilol 6.25 Mg Tablet 1 Tab PO BID Vitals/I & O Vital Sign - Last 24 Hours 07/10/18 07/10/18 07/10/18 07/10/18 11:00 11:37 15:00 15:39 Temp 97.5 98.5 97.5 98.5 Pulse 83 67 Resp 18 B/P (MAP) 131/59 (83) 122/53 (76) Pulse Ox 100 98 98 99 O2 Delivery Nasal Cannula Nasal Cannula Nasal Cannula Nasal Cannula O2 Flow Rate 3.0 3.0 07/10/18 07/10/18 07/10/18 07/10/18 17:39 19:00 20:00 20:46 Temp 97.7 97.7 Pulse 67 72 Resp 18 B/P (MAP) 122/53 115/50 (71) Pulse Ox 98 O2 Delivery Nasal Cannula Nasal Cannula Nasal Cannula O2 Flow Rate 3.0 3.0 07/10/18 07/10/18 07/11/18 07/11/18 20:47 23:00 03:00 07:00 Temp 97.7 97.5 97.6 97.7 97.5 97.6 Pulse 78 77 66 Resp 18 B/P (MAP) 145/59 (87) 140/60 (86) 140/60 (86) Pulse Ox 99 97 97 O2 Delivery Nasal Cannula Nasal Cannula Nasal Cannula Nasal Cannula O2 Flow Rate 3.0 3.0 07/11/18 07/11/18 08:04 09:23 Pulse 66 B/P (MAP) 140/60 Pulse Ox 97 O2 Delivery Nasal Cannula O2 Flow Rate 3.0 Intake and Output 07/10/18 07/10/18 07/11/18 15:00 23:00 07:00 Intake Total 800 ml 600 ml Balance 800 ml 600 ml TESS LOZANO MD Jul 11, 2018 10:24
[2018-07-11 11:00] VITALS: BP 165/70
[2018-07-11] MEDS: VANCOMYCIN PER PHARMACY MC PRN (11:14)
[2018-07-11 15:00] VITALS: BP 132/57
[2018-07-11 19:00] VITALS: BP 125/63
[2018-07-11] MEDS: FAMOTIDINE 20 MG TABLET. PO SCH (21:13)
[2018-07-11] MEDS: ATORVASTATIN CALCIUM 10 MG TABLET. PO SCH (21:13)
[2018-07-11 23:00] VITALS: BP_SYST 11; BP_SYST 111; BP_DIAS 58
[2018-07-12 03:00] VITALS: BP 130/70
[2018-07-12] MEDS: HEPARIN for SUB-Q USE 5,000 UNIT/ML VIAL. SQ SCH (03:38)
[2018-07-12 07:00] VITALS: BP 128/83
[2018-07-12] MEDS: IPRATRPIUM/ALBUTEROL 0.5/2.5MG 3 ML NEBU. NEB SCH ×2 (07:11→10:58)
[2018-07-12] MEDS: BUDESONIDE 0.5 MG/2 ML NEBU. NEB SCH (07:11)
[2018-07-12] MEDS: predniSONE 20 MG TABLET PO SCH (08:52)
[2018-07-12 08:53] VITALS: BP 128/83
[2018-07-12] MEDS: FERROUS SULFATE 325 MG TABLET. PO SCH (08:53)
[2018-07-12] MEDS: FUROSEMIDE 20 MG TABLET PO SCH (08:53)
[2018-07-12] MEDS: ASPIRIN ENTERIC COATED 81 MG TABLET.DR. PO SCH (08:53)
[2018-07-12] MEDS: LACTOBACILLUS RHAMNOSUS GG 1 CAPSULE. PO SCH (08:53)
[2018-07-12] MEDS: CARVEDILOL 6.25 MG TABLET. PO SCH (08:53)
[2018-07-12] MEDS: NYSTATIN TOPICAL POWDER 15GM BOTTLE. TP SCH (08:54)
[2018-07-12] MEDS: VANCOMYCIN 1.25 GM in IV NORMAL SALINE 250ML 250 ML IV SCH (08:54)
--- NOTE | 2018-07-12 09:29 | PDOC ---
PROGRESS NOTES Chief Complaint Chief Complaint staph epidermidis bacteremia 2 out of 4 bottles 07/09/18 acute on chronic hypoxic resp failure- resolved COPD exacerbation on O2 - stable Epistaxis, resolved weakness and debility - HH moderate malnutrition probably [id number] cor pulmonale. ckd3 morbid obesity moderate PHTN recent echo EF 50% History of Present Illness History of Present Illness no More epistaxis I did call lab [facility] - staph epidermidis and sensitivity should be out in an hour Plan: Should be able to do with non-MRSA antibiotic coverage Await sensitivities Possibly home today once sensitivities out Home with home health on discharge Vitals Vitals Vital Signs Date Time Temp Pulse Resp B/P (MAP) Pulse Ox O2 Delivery O2 Flow Rate FiO2 07/12/18 08:53 68 128/83 07/12/18 08:00 Nasal Cannula 3.0 07/12/18 07:11 99 07/12/18 07:00 97.5 16 97.5 Physical Exam Physical Exam GENERAL: Alert and oriented female, not in any distress. VITAL SIGNS: Stable, afebrile. HEENT: NAD. NECK: Supple, no JVP, no lymphadenopathy. LUNGS: Clear. HEART: S1, S2 regular. ABDOMEN: Benign. EXTREMITIES: No edema, cyanosis. SKIN: Unremarkable. NEUROLOGIC: The patient is neurologically intact. General: Alert, Oriented X3, Cooperative, No acute distress Heart: Regular rate, No murmurs Lungs: Other (decrease bs) Abdomen: Normal bowel sounds, Soft, No tenderness Extremities: No clubbing, No cyanosis, No edema, No tenderness/swelling Skin: No rashes, No breakdown, No significant lesion Review of Systems Review of Systems A 14 point ROS was completed with the following noted as positive: Other systems reviewed and negative. \CONSTITUTIONAL: No fever or chills EYES: No recent changes SKIN: No rash or itching CARDIOVASCULAR: No chest pain, syncope, palpitations, or edema RESPIRATORY: No SOB or cough GASTROINTESTINAL: No nausea, vomiting or abdominal pain NEUROLOGICAL: No headaches or weakness ENDOCRINE: No cold or heat intolerance GENITOURINARY: No urgency or frequency of urination MUSCULOSKELETAL: No back pain or joint pain LYMPHATICS: No enlarged lymph nodes PSYCHIATRIC: No anxiety or depression Assessment and Plan Assessmemt and Plan Problems Medical Problems: (1) COPD exacerbation Status: Acute Comment Review of Relevant I have reviewed the following items [place] (where applicable) has been applied. Labs Laboratory Tests Test 07/11/18 09:10 White Blood Count 7.0 x10^3/uL (4.0-11.0) Red Blood Count 3.33 x10^6/uL (3.50-5.40) Hemoglobin 9.3 g/dL (12.0-15.5) Hematocrit 28.0 % (36.0-47.0) Mean Corpuscular Volume 84 fL (79-100) Mean Corpuscular Hemoglobin 28 pg (25-35) Mean Corpuscular Hemoglobin Concent 33 g/dL (31-37) Red Cell Distribution Width 16.6 % (11.5-14.5) Platelet Count 218 x10^3/uL (140-400) Neutrophils (%) (Auto) 59 % (31-73) Lymphocytes (%) (Auto) 34 % (24-48) Monocytes (%) (Auto) 6 % (0-9) Eosinophils (%) (Auto) 1 % (0-3) Basophils (%) (Auto) 1 % (0-3) Neutrophils # (Auto) 4.1 x10^3uL (1.8-7.7) Lymphocytes # (Auto) 2.3 x10^3/uL (1.0-4.8) Monocytes # (Auto) 0.4 x10^3/uL (0.0-1.1) Eosinophils # (Auto) 0.1 x10^3/uL (0.0-0.7) Basophils # (Auto) 0.1 x10^3/uL (0.0-0.2) Sodium Level 146 mmol/L (136-145) Potassium Level 3.5 mmol/L (3.5-5.1) Chloride Level 107 mmol/L (98-107) Carbon Dioxide Level 32 mmol/L (21-32) Anion Gap 7 (6-14) Blood Urea Nitrogen 35 mg/dL (7-20) Creatinine 1.2 mg/dL (0.6-1.0) Estimated GFR (Cockcroft-Gault) 43.2 Glucose Level 162 mg/dL (70-99) Calcium Level 8.3 mg/dL (8.5-10.1) Vancomycin Level Trough 15.4 mcg/mL (10.0-20.0) Vancomycin Last Dose Date 07/10/18 Vancomycin Last Dose Time 0900 Microbiology 07/07/18 Blood Culture - Final, Complete Medications Current Medications Albuterol Sulfate (Ventolin Neb Soln) 10 mg 1X ONCE CONT NEB Last administered on 07/07/18at 21:26; Start 07/07/18 at 20:30; Stop 07/07/18 at 20 :31; Status DC Methylprednisolone Sodium Succinate (SOLU-Medrol 125MG VIAL) 125 mg 1X ONCE IV Last administered on 07/07/18at 20:39; Start 07/07/18 at 20:30; Stop at 20:31; Status DC Nystatin (Nystop) 1 rea 1X STAT TP Last administered on 07/07/18at 20:40; Start 07/07/18 at 20:06; Stop 07/07/18 at 20:15; Status DC Vancomycin HCl (Vanco Per Pharmacy) 1 each PRN DAILY PRN MC SEE COMMENTS Last administered on 07/07/18at 22:46; Start 07/07/18 at 22:00; Stop 07/08/18 at 09 :58; Status DC Piperacillin Sod/ Tazobactam Sod (Zosyn Per Pharmacy) 1 each PRN DAILY PRN MC SEE COMMENTS; Start 07/07/18 at 22:00; Stop 07/07/18 at 22:43; Status DC Vancomycin HCl 2 gm/Sodium Chloride 500 ml @ 250 mls/hr 1X ONCE IV Last administered on 07/07/18at 22:15; Start 07/07/18 at 22:00; Stop 07/07/18 at 23 :59; Status DC Piperacillin Sod/ Tazobactam Sod 2.25 gm/Sodium Chloride 50 ml @ 100 mls/hr ONCE ONCE IV Last administered on 07/07/18at 22:12; Start 07/07/18 at 22:00; Stop 07/07/18 at 22:29; Status DC Albuterol/ Ipratropium (Duoneb) 3 ml RTQID NEB Last administered on 07/08/18at 07:58; Start 07/08/18 at 08:00; Stop 07/08/18 at 10:09; Status DC Furosemide (Lasix) 40 mg 1X ONCE IVP Last administered on 07/07/18at 22:15; Start 07/07/18 at 22:15; Stop 07/07/18 at 22:16; Status DC Vancomycin HCl (Vancomycin Trough Level) 1 each 1X ONCE MC ; Start 07/09/18 at 21:30; Stop 07/09/18 at 21:31; Status Cancel Piperacillin Sod/ Tazobactam Sod (Zosyn Per Pharmacy) 1 each PRN DAILY PRN MC SEE COMMENTS; Start 07/07/18 at 22:45; Stop 07/08/18 at 09:58; Status DC Piperacillin Sod/ Tazobactam Sod 2.25 gm/Sodium Chloride 50 ml @ 100 mls/hr Q6HRS IV Last administered on 07/08/18at 05:55; Start 07/08/18 at 06:00; Stop 07/08/18 at 09:58; Status DC Aspirin (Ecotrin) 81 mg DAILY PO Last administered on 07/12/18at 08:53; Start 07/08/18 at 10:30 Carvedilol (Coreg) 6.25 mg BIDWMEALS PO Last administered on 07/12/18at 08:53; Start 07/08/18 at 10:30 Ferrous Sulfate (Feosol) 325 mg DAILY PO Last administered on 07/12/18at 08:53 ; Start 07/08/18 at 10:30 Furosemide (Lasix) 20 mg DAILY PO Last administered on 07/12/18at 08:53; Start 07/08/18 at 10:30 Nystatin (Nystop) 1 rea QID TP Last administered on 07/12/18at 08:54; Start at 13:00 Budesonide (Pulmicort) 0.5 mg RTBID NEB Last administered on 07/12/18at 07:11; Start 07/08/18 at 10:30 Atorvastatin Calcium (Lipitor) 5 mg QHS PO Last administered on 07/11/18at 21: 13; Start 07/08/18 at 21:00 Acetaminophen (Tylenol) 650 mg PRN Q6HRS PRN PO FEVER; Start 07/08/18 at 10:00 Ondansetron HCl (Zofran) 4 mg PRN Q6HRS PRN IV NAUSEA/VOMITING; Start at 10:00 Morphine Sulfate (Morphine Sulfate) 2 mg PRN Q2HR PRN IV MODERATE TO SEVERE PAIN; Start 07/08/18 at 10:00 Tramadol HCl (Ultram) 50 mg PRN Q6HRS PRN PO MILD TO MODERATE PAIN; Start at 10:00 Docusate Sodium (Colace) 100 mg PRN DAILY PRN PO CONSTIPATION; Start 07/08/18 at 10:00 Prednisone (Prednisone) 40 mg DAILY PO Last administered on 07/12/18at 08:52; Start 07/08/18 at 10:30 Famotidine (Pepcid) 20 mg QHS PO Last administered on 07/10/18at 21:33; Start 07/08/18 at 21:00 Heparin Sodium (Porcine) (Heparin Sodium) 5,000 unit Q8HRS SQ Last administered on 07/10/18at 14:50; Start 07/08/18 at 14:00 Albuterol Sulfate (Ventolin Neb Soln) 2.5 mg RTQID NEB Last administered on at 11:45; Start 07/08/18 at 12:00; Stop 07/08/18 at 12:12; Status DC Albuterol/ Ipratropium (Duoneb) 3 ml RTQID NEB Last administered on 07/12/18at 07:11; Start 07/08/18 at 16:00 Levofloxacin/ Dextrose 100 ml @ 100 mls/hr 1X ONCE IV Last administered on at 13:17; Start 07/08/18 at 13:00; Stop 07/08/18 at 13:59; Status DC Levofloxacin/ Dextrose 50 ml @ 50 mls/hr DAILY IV Last administered on at 08:41; Start 07/09/18 at 09:00; Stop 07/09/18 at 12:03; Status DC Lactobacillus Rhamnosus (Culturelle) 1 cap BID PO Last administered on at 08:53; Start 07/08/18 at 21:00 Albuterol Sulfate (Ventolin Neb Soln) 2.5 mg PRN Q4HRS PRN NEB SHORTNESS OF BREATH; Start 07/09/18 at 08:00 Guaifenesin (Robitussin Dm) 10 ml PRN Q6HRS PRN PO COUGH; Start 07/09/18 at 08 :00 Vancomycin HCl (Vanco Per Pharmacy) 1 each PRN DAILY PRN MC SEE COMMENTS Last administered on 07/11/18at 11:14; Start 07/09/18 at 08:45 Vancomycin HCl 1.25 gm/Sodium Chloride 250 ml @ 167 mls/hr Q24H IV Last administered on 07/12/18at 08:54; Start 07/09/18 at 09:30 Vancomycin HCl (Vancomycin Trough Level) 1 each 1X ONCE MC Last administered on 07/11/18at 09:00; Start 07/11/18 at 09:00; Stop 07/11/18 at 09:01; Status DC Sodium Chloride (Saline Mist Nasal) 1 rea PRN Q1HR PRN NS NASAL CONGESTION; Start 07/10/18 at 09:45 Active Scripts Active Furosemide 20 Mg Tablet 20 Mg PO DAILY Nystop (Nystatin) 60 Gm Powder 1 Rea TP QID 30 Days Reported Tylenol (Acetaminophen) 325 Mg Tablet 650 Mg PO TID PRN PRN Aspir 81 (Aspirin) 81 Mg Tablet.dr 1 Tab PO DAILY Iron Supplement (Ferrous Sulfate) 325 Mg Tablet 1 Tab PO DAILY Advair 250-50 Diskus (Fluticasone/Salmeterol) 1 Each Disk.w.dev 1 Puff IH BID Duoneb 0.5-3(2.5) Mg/3 Ml (Albuterol/Ipratropium) 3 Ml Ampul.neb 3 Ml IH Q4HRS PRN Pravastatin Sodium 10 Mg Tablet 1 Tab PO QHS Carvedilol 6.25 Mg Tablet 1 Tab PO BID Vitals/I & O Vital Sign - Last 24 Hours 07/11/18 07/11/18 07/11/18 07/11/18 11:00 11:39 15:00 16:00 Temp 97.7 97.7 97.7 97.7 Pulse 69 68 Resp 20 20 B/P (MAP) 165/70 (101) 132/57 (82) Pulse Ox 100 100 98 O2 Delivery Nasal Cannula Nasal Cannula Nasal Cannula Nasal Cannula O2 Flow Rate 3.0 3.0 3.0 3.0 07/11/18 07/11/18 07/11/18 07/11/18 17:04 19:00 19:30 20:00 Temp 97.6 97.6 Pulse 68 69 Resp 24 B/P (MAP) 132/57 125/63 (83) Pulse Ox 97 98 O2 Delivery Nasal Cannula Nasal Cannula Nasal Cannula O2 Flow Rate 3.0 3.0 3.0 07/11/18 07/12/18 07/12/18 07/12/18 23:00 03:00 07:00 07:11 Temp 97.1 97.0 97.5 97.1 97.0 97.5 Pulse 70 68 68 Resp 22 20 16 B/P (MAP) 111/58 (75) 130/70 (90) 128/83 (98) Pulse Ox 96 94 98 99 O2 Delivery Nasal Cannula Nasal Cannula Nasal Cannula Nasal Cannula O2 Flow Rate 3.0 3.0 3.0 07/12/18 07/12/18 08:00 08:53 Pulse 68 B/P (MAP) 128/83 O2 Delivery Nasal Cannula O2 Flow Rate 3.0 Intake and Output 07/11/18 07/11/18 07/12/18 15:00 23:00 07:00 Intake Total 360 ml 180 ml 580 ml Balance 360 ml 180 ml 580 ml TESS LOZANO MD Jul 12, 2018 09:29
--- NOTE | 2018-07-12 09:55 | PDOC ---
PULMONARY PROGRESS NOTES Subjective NOT MORE SOA Vitals Vital Signs Date Time Temp Pulse Resp B/P (MAP) Pulse Ox O2 Delivery O2 Flow Rate FiO2 07/12/18 08:53 68 128/83 07/12/18 08:00 Nasal Cannula 3.0 07/12/18 07:11 99 07/12/18 07:00 97.5 16 97.5 General: Alert, No acute distress Lungs: Other (decrease bs) Cardiovascular: S1, S2 Abdomen: Soft, Non-tender Extremities: Other Skin: Warm Labs Laboratory Tests Test 07/11/18 09:10 White Blood Count 7.0 x10^3/uL (4.0-11.0) Red Blood Count 3.33 x10^6/uL (3.50-5.40) Hemoglobin 9.3 g/dL (12.0-15.5) Hematocrit 28.0 % (36.0-47.0) Mean Corpuscular Volume 84 fL (79-100) Mean Corpuscular Hemoglobin 28 pg (25-35) Mean Corpuscular Hemoglobin Concent 33 g/dL (31-37) Red Cell Distribution Width 16.6 % (11.5-14.5) Platelet Count 218 x10^3/uL (140-400) Neutrophils (%) (Auto) 59 % (31-73) Lymphocytes (%) (Auto) 34 % (24-48) Monocytes (%) (Auto) 6 % (0-9) Eosinophils (%) (Auto) 1 % (0-3) Basophils (%) (Auto) 1 % (0-3) Neutrophils # (Auto) 4.1 x10^3uL (1.8-7.7) Lymphocytes # (Auto) 2.3 x10^3/uL (1.0-4.8) Monocytes # (Auto) 0.4 x10^3/uL (0.0-1.1) Eosinophils # (Auto) 0.1 x10^3/uL (0.0-0.7) Basophils # (Auto) 0.1 x10^3/uL (0.0-0.2) Sodium Level 146 mmol/L (136-145) Potassium Level 3.5 mmol/L (3.5-5.1) Chloride Level 107 mmol/L (98-107) Carbon Dioxide Level 32 mmol/L (21-32) Anion Gap 7 (6-14) Blood Urea Nitrogen 35 mg/dL (7-20) Creatinine 1.2 mg/dL (0.6-1.0) Estimated GFR (Cockcroft-Gault) 43.2 Glucose Level 162 mg/dL (70-99) Calcium Level 8.3 mg/dL (8.5-10.1) Vancomycin Level Trough 15.4 mcg/mL (10.0-20.0) Vancomycin Last Dose Date 07/10/18 Vancomycin Last Dose Time 0900 Medications Active Scripts Medications Dose Route/Sig Max Daily Dose Days Date Category Furosemide 20 Mg Tablet 20 Mg PO DAILY 02/21/18 Rx Nystop (Nystatin) 60 Gm Powder 1 Rea TP QID 30 01/02/18 Rx Tylenol (Acetaminophen) 325 Mg Tablet 650 Mg PO TID PRN PRN 04/11/16 Reported Aspir 81 (Aspirin) 81 Mg Tablet.dr 1 Tab PO DAILY 04/11/16 Reported Iron Supplement (Ferrous Sulfate) 325 Mg Tablet 1 Tab PO DAILY 11/10/15 Reported Advair 250-50 Diskus (Fluticasone/Salmeterol) 1 Each Disk.w.dev 1 Puff IH BID 05/06/15 Reported Duoneb 0.5-3(2.5) Mg/3 Ml (Albuterol/Ipratropium) 3 Ml Ampul.neb 3 Ml IH Q4HRS PRN 05/06/15 Reported Pravastatin Sodium 10 Mg Tablet 1 Tab PO QHS 09/16/14 Reported Carvedilol 6.25 Mg Tablet 1 Tab PO BID 09/16/14 Reported Impression . IMPRESSION: AECOPD ACUTE COR PULMONALE WEAKNESS Plan . D/C HOME TODAY FOLLOW UP OFFICE JUL 31 D/W JESSE ENGLISH MD Jul 12, 2018 09:54
[2018-07-12] MEDS ORDERED: AMOX1TAB58 PO (10:05)
--- NOTE | 2018-07-12 10:06 | DISCH ---
DISCHARGE WITH HOME HEALTH DISCHARGE INFORMATION: Discharge Date: Jul 12, 2018 Final Diagnosis: Problems Medical Problems: (1) COPD exacerbation Status: Acute Condition on Discharge: Stable CODE STATUS: Code Status: Full HOME HEALTH: Face to Face: I certify this patient is under my care and that I, or a nurse practitioner or physician's language assistant working with me, had a face to face encounter that meets the physician face to face encounter requirements with this patient on []. Medical Complications: COPD, HTN Physical Therapy For: Evalulation/Treatment Occupational Therapy For: Evaluation/Treatment Speech Language Pathology For: Evaluation/Treatment Home Health Aide For: Self-care Pt Meets Homebound Status: Fatigue w/ amb. POST DISCHARGE ORDERS: Activity Instructions for Disc: Activity as tolerated Weight Bearing Status after Di: As tolerated DIET AFTER DISCHARGE: Cardiac CHECKS AFTER DISCHARGE: Checks after discharge: Check blood press - daily, Weigh Yourself Daily TREATMENT/EQUIPMENT ORDERS: Adaptive Equipment Issued: None, Front wheeled walker Discharge Respiratory Equipmen: Oxygen CERTIFICATION STATEMENT: Certification Statement: Certification Statement: Based on the above finding, I certify that this patient is confined to the home and needs intermittent fpc care, physical therapy and/or speech therapy, or continues to need occupational therapy.~ This patient is under my care, and I have initiated the establishment of the plan of care.~ This patient will be followed by myself or a community physician who will periodically review the plan of care. Home Meds Active Scripts Amoxicillin/Potassium Clav (AUGMENTIN 500-125 TABLET) 1 Each Tablet, 1 TAB PO BID, #20 TAB Prov:TESS LOZANO MD 07/12/18 Furosemide (FUROSEMIDE) 20 Mg Tablet, 20 MG PO DAILY, #30 TAB Prov:LUKAS DWYER MD 02/21/18 Nystatin (NYSTOP) 60 Gm Powder, 1 LETICIA TP QID for 30 Days, MISC Prov:TESS LOZANO MD 01/02/18 Reported Medications Acetaminophen (TYLENOL) 325 Mg Tablet, 650 MG PO TID PRN PRN for PAIN 04/11/16 Aspirin (ASPIR 81) 81 Mg Tablet.dr, 1 TAB PO DAILY, #30 TAB 5 Refills 04/11/16 Ferrous Sulfate (IRON SUPPLEMENT) 325 Mg Tablet, 1 TAB PO DAILY, #30 TAB 10 Refills 11/10/15 Fluticasone/Salmeterol (ADVAIR 250-50 DISKUS) 1 Each Disk.w.dev, 1 PUFF IH BID, #3 INHALER 3 Refills 05/06/15 Ipratropium/Albuterol Sulfate (DUONEB 0.5-3(2.5) MG/3 ML) 3 Ml Ampul.neb, 3 ML IH Q4HRS PRN for CONGESTION 05/06/15 Pravastatin Sodium (PRAVASTATIN SODIUM) 10 Mg Tablet, 1 TAB PO QHS, #30 TAB 5 Refills 09/16/14 Carvedilol (CARVEDILOL) 6.25 Mg Tablet, 1 TAB PO BID, #180 TAB 1 Refill 09/16/14 TESS LOZANO MD Jul 12, 2018 10:06
--- NOTE | 2018-07-12 10:11 | PDOC3 ---
Discharge Summary Visit Information Date of Admission: Jul 08, 2018 Date of Discharge: Jul 12, 2018 Admitting Diagnosis Comment: staph epidermidis bacteremia 2 out of 4 bottles 07/09/18 acute on chronic hypoxic resp failure- resolved COPD exacerbation on O2 - stable Epistaxis, resolved weakness and debility - HH moderate malnutrition probably palqu-bo-[id number] cor pulmonale. ckd3 morbid obesity moderate PHTN recent echo EF 50% Final Diagnosis Problems Medical Problems: (1) COPD exacerbation Status: Acute Brief Hospital Course Allergies Allergies Coded Allergies Type Severity Reaction Last Updated Verified doxycycline Allergy Intermediate Rash 02/16/18 Yes I S O L A T I O N *CONTACT* Allergy Unknown 12/12/16 Yes Vital Signs Vital Signs Date Time Temp Pulse Resp B/P (MAP) Pulse Ox O2 Delivery O2 Flow Rate FiO2 07/12/18 08:53 68 128/83 07/12/18 08:00 Nasal Cannula 3.0 07/12/18 07:11 99 07/12/18 07:00 97.5 16 97.5 Lab Results Laboratory Tests Test 07/11/18 09:10 White Blood Count 7.0 x10^3/uL (4.0-11.0) Red Blood Count 3.33 x10^6/uL (3.50-5.40) Hemoglobin 9.3 g/dL (12.0-15.5) Hematocrit 28.0 % (36.0-47.0) Mean Corpuscular Volume 84 fL (79-100) Mean Corpuscular Hemoglobin 28 pg (25-35) Mean Corpuscular Hemoglobin Concent 33 g/dL (31-37) Red Cell Distribution Width 16.6 % (11.5-14.5) Platelet Count 218 x10^3/uL (140-400) Neutrophils (%) (Auto) 59 % (31-73) Lymphocytes (%) (Auto) 34 % (24-48) Monocytes (%) (Auto) 6 % (0-9) Eosinophils (%) (Auto) 1 % (0-3) Basophils (%) (Auto) 1 % (0-3) Neutrophils # (Auto) 4.1 x10^3uL (1.8-7.7) Lymphocytes # (Auto) 2.3 x10^3/uL (1.0-4.8) Monocytes # (Auto) 0.4 x10^3/uL (0.0-1.1) Eosinophils # (Auto) 0.1 x10^3/uL (0.0-0.7) Basophils # (Auto) 0.1 x10^3/uL (0.0-0.2) Sodium Level 146 mmol/L (136-145) Potassium Level 3.5 mmol/L (3.5-5.1) Chloride Level 107 mmol/L (98-107) Carbon Dioxide Level 32 mmol/L (21-32) Anion Gap 7 (6-14) Blood Urea Nitrogen 35 mg/dL (7-20) Creatinine 1.2 mg/dL (0.6-1.0) Estimated GFR (Cockcroft-Gault) 43.2 Glucose Level 162 mg/dL (70-99) Calcium Level 8.3 mg/dL (8.5-10.1) Vancomycin Level Trough 15.4 mcg/mL (10.0-20.0) Vancomycin Last Dose Date 07/10/18 Vancomycin Last Dose Time 0900 Brief Hospital Course Ms. Schwartz is a 78 old female with COPD, home O2 dependent admitted as of another COPD flare. Her course for treatment of her COPD is no different from her past multiple frequent admits. She has current home health and there is some mention of noncompliance with physical therapy-I do believe this is because more for SOA than anything else. She has been refusing SNU in the many past admits I have known her. Course remarkable for staph epidermidis bacteremia 2 out of 4 bottles but no fevers, nontoxic appearing, with normal white count. Took many days for the culture sensitivity sensitivities to come out. Cleared by the ID. I'm sending home with home health on Augmentin x 10 days 2 notes today Dispo: HH Consults: ID, pulmo Proc none Discharge Information Condition at Discharge: Improved, Stable Disposition/Orders: D/C to Home w/ HH Scheduled Amoxicillin/Potassium Clav (Augmentin 500-125 Tablet) 1 Each Tablet, 1 TAB PO BID, #20 Prescribed by: TESS LOZANO on 07/12/18 1005 Aspirin (Aspir 81) 81 Mg Tablet., 1 TAB PO DAILY, #30 Ref 5 (Reported) Entered as Reported by: MERCEDES CARDONA on 04/11/162238 Last Action: Continued on 07/08/18957 by MILAN LUNA MD Carvedilol (Carvedilol) 6.25 Mg Tablet, 1 TAB PO BID, #180 Ref 1 (Reported) Entered as Reported by: MARTIN MORALES on 09/16/142013 Last Action: Continued on 07/08/18957 by MILAN LUNA MD Ferrous Sulfate (Iron Supplement) 325 Mg Tablet, 1 TAB PO DAILY, #30 Ref 10 ( Reported) Entered as Reported by: Shweta Luevano on 11/10/15 2316 Last Action: Continued on 07/08/18957 by MILAN LUNA MD Fluticasone/Salmeterol (Advair 250-50 Diskus) 1 Each Disk.w.dev, 1 PUFF IH BID, #3 Ref 3 (Reported) Entered as Reported by: DE ALEJANDRO on 05/06/15 0636 Last Action: Converted on 07/08/18957 by MILAN LUNA MD Furosemide (Furosemide) 20 Mg Tablet, 20 MG PO DAILY, #30 Prescribed by: LUKAS DWYER on 02/21/18 0856 Last Action: Continued on 07/08/18957 by MILAN LUNA MD Nystatin (Nystop) 60 Gm Powder, 1 LETICIA TP QID for 30 Days Prescribed by: TESS LOZANO on 01/02/18 1106 Last Action: Continued on 07/08/18957 by MILAN LUNA MD Pravastatin Sodium (Pravastatin Sodium) 10 Mg Tablet, 1 TAB PO QHS, #30 Ref 5 ( Reported) Entered as Reported by: MARTIN MORALES on 09/16/142013 Last Action: Converted on 07/08/18957 by MILAN LUNA MD Scheduled PRN Acetaminophen (Tylenol) 325 Mg Tablet, 650 MG PO TID PRN PRN for PAIN, (Reported ) Entered as Reported by: MERCEDES CARDONA on 04/11/16 2240 Last Action: HELD on 07/08/18957 by MILAN LUNA MD Ipratropium/Albuterol Sulfate (Duoneb 0.5-3(2.5) Mg/3 Ml) 3 Ml Ampul.neb, 3 ML IH Q4HRS PRN for CONGESTION, (Reported) Entered as Reported by: DE ALEJANDRO on 05/06/15 0635 Last Action: HELD on 07/08/18 0958 by MD MARTA VELÁZQUEZ CHERRIE Y MD Jul 12, 2018 10:11
--- NOTE | 2018-07-12 10:27 | PDOC ---
Infectious Disease Note Subjective Subjective pt is feeling good, up in chair ROS ROS no n/v/d/sob Vital Sign Vital Signs Vital Signs Date Time Temp Pulse Resp B/P (MAP) Pulse Ox O2 Delivery O2 Flow Rate FiO2 07/12/18 08:53 68 128/83 07/12/18 08:00 Nasal Cannula 3.0 07/12/18 07:11 99 07/12/18 07:00 97.5 16 97.5 Physical Exam PHYSICAL EXAM GENERAL: Alert and oriented female, not in any distress. VITAL SIGNS: Stable, afebrile. HEENT: NAD. NECK: Supple, no JVP, no lymphadenopathy. LUNGS: Clear. HEART: S1, S2 regular. ABDOMEN: Benign. EXTREMITIES: No edema, cyanosis. SKIN: Unremarkable. NEUROLOGIC: The patient is neurologically intact. Labs Micro BLOOD CULTURE Final GRAM POSITIVE COCCI IN CLUSTERS, SUGGESTIVE OF STAPH, IN 2 OF 4 BOTTLES, TWO SETS DRAWN. ONE SET IS POSITIVE. CALLED TO ALBERTA TALBOT RN ON 5N AT 8:05 ON 07/09/18 DW MT SENT TO [facility] FOR FURTHER WORKUUP coag neg staph Objective Assessment 1. Blood culture positive 2/ with gram-positive cocci in clusters, can be a contaminant, can be real especially with history of methicillin resistant Staphylococcus aureus, although the patient did not have any fever. 2. Chronic obstructive pulmonary disease exacerbation. 3. Hypoxic respiratory failure. 4. Congestive heart failure. Plan Plan of Care d/c vanc check culture and adjust d/c OPAL Whatley MD Jul 12, 2018 10:27
== END 2018-07-12 12:23 | disposition home health service (06) | DRG 871 ==
LOC: ER 19:52 → 5 NORTH 22:06 → ER 22:38
PROVIDERS: ADMIT Internal Medicine; ATTEND Internal Medicine
DX: A41.9 Sepsis, unspecified organism (principal); J96.21 Acute and chronic respiratory failure with hypoxia; E44.0 Moderate protein-calorie malnutrition; I50.32 Chronic diastolic (congestive) heart failure; J44.1 Chronic obstructive pulmonary disease with (acute) exacerbation; J98.11 Atelectasis; B95.7 Other staphylococcus as the cause of diseases classified elsewhere; B96.89 Other specified bacterial agents as the cause of diseases classified elsewhere; E66.01 Morbid (severe) obesity due to excess calories; I27.81 Cor pulmonale (chronic); N18.3 Chronic kidney disease, stage 3 (moderate); R04.0 Epistaxis; Z82.49 Family history of ischemic heart disease and other diseases of the circulatory system; Z86.14 Personal history of Methicillin resistant Staphylococcus aureus infection; Z91.19 Patient's noncompliance with other medical treatment and regimen; Z99.81 Dependence on supplemental oxygen; Z87.891 Personal history of nicotine dependence; Z68.33 Body mass index [BMI] 33.0-33.9, adult; Z90.49 Acquired absence of other specified parts of digestive tract; Z88.8 Allergy status to other drugs, medicaments and biological substances; Z79.899 Other long term (current) drug therapy
CPT/HCPCS: 36415; 71045; 80048; 80053; 80202; 81001; 82565; 83605; 83880; 84145; 84484; 84520; 85025; 85610; 85651; 87040; 87186; 87205; 87641; 87804; 93005; 94640; 94760; 96365; 96368; 96375; J1644; J1940; J1956; J2543; J2930; J3370; J7040; J7050; J7512; J7613; J7620; J7626; P9612; 97530; 97535; 99285-25; J7030

== ENCOUNTER 2018-08-17 08:09 | Inpatient (IN) | payer MEDICARE, OTHER ==
[~2018-08-17] VITALS: Ht 154.9 cm; Wt 75.1 kg
[~2018-08-17 08:09] MED LIST changes: +AMOX1TAB58 PO; +CARV6.2511 PO; -CARV6.252 PO
[2018-08-17] MEDS ORDERED: IPRATRPIUM/ALBUTEROL 0.5/2.5MG 3 ML NEBU. NEB ONE (08:30)
[2018-08-17 08:52] LABS: BASO # 0.1 x10^3/uL (0.0-0.2); BASO % 1 % (0-3); EOS # 0.2 x10^3/uL (0.0-0.7); EOS % 3 % (0-3); HEMATOCRIT 31.2 % (36.0-47.0); HEMOGLOBIN 10.3 g/dL (12.0-15.5); LYMPH # 1.5 x10^3/uL (1.0-4.8); LYMPH % 21 % (24-48); MEAN CORPUSCULAR HEMOGLOBIN 27 pg (25-35); MEAN CORPUSCULAR HGB CONC 33 g/dL (31-37); MEAN CORPUSCULAR VOLUME 83 fL (79-100); MONO # 0.7 x10^3/uL (0.0-1.1); MONO % 9 % (0-9); NEUT # 4.6 x10^3uL (1.8-7.7); NEUT % 66 % (31-73); PLATELET COUNT 242 x10^3/uL (140-400); RED BLOOD COUNT 3.78 x10^6/uL (3.50-5.40); RED CELL DISTRIBUTION WIDTH 15.7 % (11.5-14.5); WHITE BLOOD COUNT 7.1 x10^3/uL (4.0-11.0)
--- NOTE | 2018-08-17 08:54 | RAD ---
CHEST AP ONLY Clinical Indication: SHORT OF AIR Comparison: AP chest July 07, 2018. Findings: Atherosclerotic and tortuous thoracic aorta. Calcified AP window lymph node. Cardiac size stable. Small right pleural effusion. Question trace left pleural effusion. Increased interstitial markings are probably chronic. Mild bibasilar airspace disease. No pneumothorax. Advanced degenerative arthropathy of the shoulders. IMPRESSION: 1. Small bilateral pleural effusions, larger on the right. 2. Mild bibasilar airspace disease. 3. Increased interstitial markings may be chronic. Cannot exclude a component of acute interstitial edema. Electronically signed by: Charles Estrada MD (08/17/2018 8:50 AM) [id number]
--- NOTE | 2018-08-17 08:59 | PHYS DOC ---
Past Medical History Past Medical History: Anxiety, Bronchitis, CHF, COPD, MRSA, Other Additional Past Medical Histor: RESP FAILURE,OA Past Surgical History: Cholecystectomy Alcohol Use: None Drug Use: None Adult General Chief Complaint Chief Complaint: SHORTNESS OF BREATH HPI HPI 78-year-old female presenting to the emergency department today with shortness of breath and cough that began yesterday. She denies any pain. She has history of COPD and CHF. She wears 2 L of oxygen at all times. EMS gave the patient a nebulizer which mildly improved her symptoms. She denies any leg swelling over the past few days or gaining weight. Review of systems is negative for headache fevers chills chest pain abdominal pain nausea vomiting or diaphoresis. All other review of systems is negative unless otherwise noted in history of present illness. ED course: 78-year-old female with history of CHF and COPD presenting the emergency department today with worsening shortness of breath. On arrival she is afebrile with a normal heart rate. Respiratory rate mildly increased on 4 L by nasal cannula. On examination she has mild wheezing more on the left than the right. Mild crackles at the bases. 1+ edema in the legs. Otherwise abdomen is soft and nontender. EKG obtained and reviewed by myself shows a regular rhythm with probable p waves before every qrs likely sinus though variable baseline present with a regular rate. ST segments are congruent. Not suggestive of ACS. Chest x-ray and blood work obtained. bilateral pleural effusions present reviewed in real time by myself. Blood work obtained which shows mild anemia. ProBNP is mildly elevated. Troponin negative. We'll give the patient IV corticosteroids and admitted the patient for a COPD exacerbation. Given the pleural effusions there is likely a component of CHF. We will give a small dose of Lasix. The patient was admitted to Dr. Watson for further treatment and care. Review of Systems Review of Systems SEE ABOVE. Current Medications Current Medications Current Medications Medications (Trade) Dose Ordered Sig/Eva Start Time Stop Time Status Last Admin Dose Admin Albuterol/ Ipratropium (Duoneb) 3 ml 1X ONCE 08/17/18 08:30 08/17/18 08:31 DC 08/17/18 08:37 3 ML Methylprednisolone Sodium Succinate (SOLU-Medrol 125MG VIAL) 125 mg 1X ONCE 08/17/18 09:30 08/17/18 09:31 DC 08/17/18 09:37 125 MG Allergies Allergies Allergies Coded Allergies Type Severity Reaction Last Updated Verified doxycycline Allergy Intermediate Rash 02/16/18 Yes I S O L A T I O N *CONTACT* Allergy Unknown 12/12/16 Yes Physical Exam Physical Exam Constitutional: Well developed, well nourished, no acute distress, non-toxic appearance. [] HENT: Normocephalic, atraumatic, bilateral external ears normal, oropharynx moist, no oral exudates, nose normal. [] Eyes: PERRLA, EOMI, conjunctiva normal, no discharge. [] Neck: Normal range of motion, no tenderness, supple, no stridor. [] Cardiovascular:Heart rate regular rhythm, no murmur [] Lungs & Thorax: as above Abdomen: Bowel sounds normal, soft, no tenderness, no masses, no pulsatile masses. [] Skin: Warm, dry, no erythema, no rash. [] Back: No tenderness, no CVA tenderness. [] Extremities: No tenderness, no cyanosis, no clubbing, ROM intact Neurologic: Alert and oriented X 3, normal motor function, normal sensory function, no focal deficits noted. [] Psychologic: Affect normal, judgement normal, mood normal. [] Current Patient Data Vital Signs Vital Signs Date Time Temp Pulse Resp B/P (MAP) Pulse Ox O2 Delivery O2 Flow Rate FiO2 08/17/18 09:00 72 22 145/62 (89) 96 Nasal Cannula 4.0 08/17/18 08:10 97.9 97.9 Lab Values Laboratory Tests Test 08/17/18 08:40 White Blood Count 7.1 x10^3/uL (4.0-11.0) Red Blood Count 3.78 x10^6/uL (3.50-5.40) Hemoglobin 10.3 g/dL (12.0-15.5) L Hematocrit 31.2 % (36.0-47.0) L Mean Corpuscular Volume 83 fL (79-100) Mean Corpuscular Hemoglobin 27 pg (25-35) Mean Corpuscular Hemoglobin Concent 33 g/dL (31-37) Red Cell Distribution Width 15.7 % (11.5-14.5) H Platelet Count 242 x10^3/uL (140-400) Neutrophils (%) (Auto) 66 % (31-73) Lymphocytes (%) (Auto) 21 % (24-48) L Monocytes (%) (Auto) 9 % (0-9) Eosinophils (%) (Auto) 3 % (0-3) Basophils (%) (Auto) 1 % (0-3) Neutrophils # (Auto) 4.6 x10^3uL (1.8-7.7) Lymphocytes # (Auto) 1.5 x10^3/uL (1.0-4.8) Monocytes # (Auto) 0.7 x10^3/uL (0.0-1.1) Eosinophils # (Auto) 0.2 x10^3/uL (0.0-0.7) Basophils # (Auto) 0.1 x10^3/uL (0.0-0.2) Sodium Level 142 mmol/L (136-145) Potassium Level 4.4 mmol/L (3.5-5.1) Chloride Level 104 mmol/L (98-107) Carbon Dioxide Level 30 mmol/L (21-32) Anion Gap 8 (6-14) Blood Urea Nitrogen 8 mg/dL (7-20) Creatinine 0.8 mg/dL (0.6-1.0) Estimated GFR (Cockcroft-Gault) 69.0 Glucose Level 89 mg/dL (70-99) Calcium Level 8.6 mg/dL (8.5-10.1) Total Bilirubin 0.5 mg/dL (0.2-1.0) Direct Bilirubin 0.2 mg/dL (0.0-0.2) Aspartate Amino Transferase (AST) 19 U/L (15-37) Alanine Aminotransferase (ALT) 12 U/L (14-59) L Alkaline Phosphatase 72 U/L (46-116) Troponin I Quantitative < 0.017 ng/mL (0.000-0.055) FR-Zxe-L-Type Natriuretic Peptide 624 pg/mL (0-449) H Total Protein 6.0 g/dL (6.4-8.2) L Albumin 2.3 g/dL (3.4-5.0) L Lipase 83 U/L (73-393) Laboratory Tests 08/17/18 08:40 Laboratory Tests 08/17/18 08:40 EKG EKG [] Radiology/Procedures Radiology/Procedures [] Course & Med Decision Making Course & Med Decision Making Pertinent Labs and Imaging studies reviewed. (See chart for details) [] Dragon Disclaimer Dragon Disclaimer This electronic medical record was generated, in whole or in part, using a voice recognition dictation system. Departure Departure Impression: Primary Impression: COPD exacerbation Additional Impression: Dyspnea Disposition: 09 ADMITTED INPATIENT Admitting Physician: Other (kaitlyn) Condition: STABLE Referrals: AMISHA HARDY MD (PCP) Problem Qualifiers KODY SEWELL MD Aug 17, 2018 08:59
[2018-08-17 09:07] LABS: CALCIUM 8.6 mg/dL (8.5-10.1); CREATININE 0.8 mg/dL (0.6-1.0); POTASSIUM 4.4 mmol/L (3.5-5.1)
[2018-08-17 09:12] LABS: ALBUMIN 2.3 g/dL (3.4-5.0); DIRECT BILIRUBIN 0.2 mg/dL (0.0-0.2); TOTAL BILIRUBIN 0.5 mg/dL (0.2-1.0)
[2018-08-17] MEDS ORDERED: methylPREDNISolone SOD SUCC PF 125 MG/2 ML VIAL. IV ONE (09:30)
[2018-08-17] MEDS ORDERED: FUROSEMIDE 20 MG/2 ML VIAL. IVP ONE (10:00)
[2018-08-17 11:00] VITALS: BP 148/69
--- NOTE | 2018-08-17 11:26 | PDOC1 ---
History and Physical Date of Admission Date of Admission DATE: 08/17/18 TIME: 11:10 Identification/Chief Complaint Chief Complaint Shortness of Breath Source Source: Patient History of Present Illness History of Present Illness 78-year-old female w/PMHx CHF and ILD/COPD with multiple admissions to the hospital for the same, the most recent 2 weeks ago who returns with worsening shortness of breath at home with cough. She lives alone, but does have family in town, has been recommend to go to SNF in the past. At home normally on 2L of NCO2, but has changed to 4L since a recent hospital stay. She was feeling weak when she called EMS and actually had to be carried by firefighters. RR mildly increased on 4 L by nasal cannula, no leukocytosis, HR normal, afebrile. EKG obtained in ED shows a regular rhythm with probable p waves before every qrs likely sinus though variable baseline present with a regular rate. ST segments are congruent. Chest x-ray - bilateral pleural effusions. Blood work obtained which shows mild anemia. ProBNP is mildly elevated. Troponin negative. Given IV corticosteroids in ED and lasix. Past Medical History Pulmonary: COPD CENTRAL NERVOUS SYSTEM: Periperal neuropathy GI: No pertinent hx Heme/Onc: Anemia NOS Hepatobiliary: No pertinent hx Psych: No pertinent hx Musculoskeletal: Osteoarthritis Rheumatologic: No pertinent hx Infectious disease: No pertinent hx Renal/: No pertinent hx Past Surgical History Past Surgical History: Cholecystectomy Family History Family History: Coronary Artery Disease Family History: Parent Social History ALCOHOL: none Drugs: None Current Problem List Problem List Problems Medical Problems: (1) COPD exacerbation Status: Acute (2) Dyspnea Status: Acute Current Medications Current Medications Current Medications Albuterol/ Ipratropium (Duoneb) 3 ml 1X ONCE NEB Last administered on at 08:37; Start 08/17/18 at 08:30; Stop 08/17/18 at 08:31; Status DC Methylprednisolone Sodium Succinate (SOLU-Medrol 125MG VIAL) 125 mg 1X ONCE IV Last administered on 08/17/18at 09:37; Start 08/17/18 at 09:30; Stop at 09:31; Status DC Furosemide (Lasix) 20 mg 1X ONCE IVP Last administered on 08/17/18at 10:08; Start 08/17/18 at 10:00; Stop 08/17/18 at 10:01; Status DC Active Scripts Active Augmentin 500-125 Tablet (Amoxicillin/Potassium Clav) 1 Each Tablet 1 Tab PO BID Furosemide 20 Mg Tablet 20 Mg PO DAILY Nystop (Nystatin) 60 Gm Powder 1 Rea TP QID 30 Days Reported Tylenol (Acetaminophen) 325 Mg Tablet 650 Mg PO TID PRN PRN Aspir 81 (Aspirin) 81 Mg Tablet.dr 1 Tab PO DAILY Iron Supplement (Ferrous Sulfate) 325 Mg Tablet 1 Tab PO DAILY Advair 250-50 Diskus (Fluticasone/Salmeterol) 1 Each Disk.w.dev 1 Puff IH BID Duoneb 0.5-3(2.5) Mg/3 Ml (Albuterol/Ipratropium) 3 Ml Ampul.neb 3 Ml IH Q4HRS PRN Pravastatin Sodium 10 Mg Tablet 1 Tab PO QHS Carvedilol 6.25 Mg Tablet 1 Tab PO BID Allergies Allergies: Coded Allergies: doxycycline (Verified Allergy, Intermediate, Rash, 02/16/18) rash this admit suspected from doxycycline I S O L A T I O N *CONTACT* (Verified Allergy, Unknown, 12/12/16) +MRSA nasal screen 12/09/16 ROS General: YES: Fatigue, Malaise; No: Chills, Night Sweats, Appetite, Other PSYCHOLOGICAL ROS: No: Anxiety, Behavioral Disorder, Concentration difficultie , Decreased libido, Depression, Disorientation, Hallucinations, Hostility, Irritablity, Memory difficulties, Mood Swings, Obsessive thoughts, Physical abuse, Sexual abuse, Sleep disturbances, Suicidal ideation, Other Eyes: No Blurry vision, No Decreased vision, No Double vision, No Dry eyes, No Excessive tearing, No Eye Pain, No Itchy Eyes, No Loss of vision, No Photophobia , No Scotomata, No Uses contacts, No Uses glasses, No Other HEENT: YES: Nasal congestion; No: Heacaches, Visual Changes, Hearing change, Nasal discharge, Oral lesions , Sinus pain, Sore Throat, Epistaxis, Sneezing, Snoring, Tinnitus, Vertigo, Vocal changes, Other ALLERGY AND IMMUNOLOGY: No: Hives, Insect Bite Sensitivity, Itchy/Watery Eyes, Nasal Congestion, Post Nasal Drip, Seasonal Allergies, Other Hematological and Lymphatic: No: Bleeding Problems, Blood Clots, Blood Transfusions, Brusing, Night Sweats, Pallor, Swollen Lymph Nodes, Other ENDOCRINE: No: Breast Changes, Galactorrhea, Hair Pattern Changes, Hot Flashes , Malaise/lethargy, Mood Swings, Palpitations, Polydipsia/polyuria, Skin Changes , Temperature Intolerance, Unexpected Weight Changes, Other Breast: No New/Changing Breast Lumps, No Nipple changes, No Nipple discharge, No Other Respiratory: YES: Cough, Shortness of breath, Tachypnea, Wheezing; No: Hemoptysis, Orthopnea, Pleuritic Pain, SOB with excertion, Sputum Changes , Stridor, Other Cardiovascular: yes Paroxysmal Noc. Dyspnea, yes Edema; No Chest Pain, No Palpitations, No Orthopnea, No Lt Headedness, No Other Gastrointestinal: No Nausea, No Vomiting, No Abdominal Pain, No Diarrhea, No Constipation, No Melena, No Hematochezia, No Other Genitourinary: No Dysuria, No Frequency, No Incontinence, No Hematuria, No Retention, No Discharge, No Urgency, No Pain, No Flank Pain, No Other, No , No , No , No , No , No , No Musculoskeletal: Yes Gait Disturbance, Yes Muscular Weakness; No Joint Pain, No Joint Stiffness, No Joint Swelling, No Muscle Pain, No Pain In:, No Swelling In:, No Other Neurological: No Behavorial Changes, No Bowel/Bladder ControlChng, No Confusion , No Dizziness, No Gait Disturbance, No Headaches, No Impaired Coord/balance, No Memory Loss, No Numbness/Tingling, No Seizures, No Speech Problems, No Tremors, No Visual Changes, No Weakness, No Other Skin: No Dry Skin, No Eczema, No Hair Changes, No Lumps, No Mole Changes, No Mottling, No Nail Changes, No Pruritus, No Rash, No Skin Lesion Changes, No Other, No Acne Physical Exam General: Alert, Oriented X3, Cooperative, No acute distress HEENT: Atraumatic, PERRLA, EOMI, Mucous membr. moist/pink Lungs: Other (Wheezing, bibasilar crackles) Heart: S1S2, RRR, no gallops, no murmurs Abdomen: Normal bowel sounds, Soft, No tenderness, No hepatosplenomegaly, No masses Rectal Exam: not examined PELVIC: Examination not indicated Extremities: No clubbing, No cyanosis, Normal pulses, No tenderness/swelling, Other (Scant LE edema 1+) Skin: No rashes, No breakdown, No significant lesion Neuro: Normal speech, Strength at 5/5 X4 ext, Normal tone, Sensation intact, Cranial nerves 3-12 NL, Reflexes 2+, Other (Unsteady gait) Psych/Mental Status: Mental status NL, Mood NL Vitals Vitals Vital Signs Date Time Temp Pulse Resp B/P (MAP) Pulse Ox O2 Delivery O2 Flow Rate FiO2 08/17/18 09:00 72 22 145/62 (89) 96 Nasal Cannula 4.0 08/17/18 08:10 97.9 97.9 Labs Labs Laboratory Tests Test 08/17/18 08:40 White Blood Count 7.1 x10^3/uL (4.0-11.0) Red Blood Count 3.78 x10^6/uL (3.50-5.40) Hemoglobin 10.3 g/dL (12.0-15.5) Hematocrit 31.2 % (36.0-47.0) Mean Corpuscular Volume 83 fL (79-100) Mean Corpuscular Hemoglobin 27 pg (25-35) Mean Corpuscular Hemoglobin Concent 33 g/dL (31-37) Red Cell Distribution Width 15.7 % (11.5-14.5) Platelet Count 242 x10^3/uL (140-400) Neutrophils (%) (Auto) 66 % (31-73) Lymphocytes (%) (Auto) 21 % (24-48) Monocytes (%) (Auto) 9 % (0-9) Eosinophils (%) (Auto) 3 % (0-3) Basophils (%) (Auto) 1 % (0-3) Neutrophils # (Auto) 4.6 x10^3uL (1.8-7.7) Lymphocytes # (Auto) 1.5 x10^3/uL (1.0-4.8) Monocytes # (Auto) 0.7 x10^3/uL (0.0-1.1) Eosinophils # (Auto) 0.2 x10^3/uL (0.0-0.7) Basophils # (Auto) 0.1 x10^3/uL (0.0-0.2) Sodium Level 142 mmol/L (136-145) Potassium Level 4.4 mmol/L (3.5-5.1) Chloride Level 104 mmol/L (98-107) Carbon Dioxide Level 30 mmol/L (21-32) Anion Gap 8 (6-14) Blood Urea Nitrogen 8 mg/dL (7-20) Creatinine 0.8 mg/dL (0.6-1.0) Estimated GFR (Cockcroft-Gault) 69.0 Glucose Level 89 mg/dL (70-99) Calcium Level 8.6 mg/dL (8.5-10.1) Total Bilirubin 0.5 mg/dL (0.2-1.0) Direct Bilirubin 0.2 mg/dL (0.0-0.2) Aspartate Amino Transf (AST/SGOT) 19 U/L (15-37) Alanine Aminotransferase (ALT/SGPT) 12 U/L (14-59) Alkaline Phosphatase 72 U/L (46-116) Troponin I Quantitative < 0.017 ng/mL (0.000-0.055) SJ-Crt-X-Type Natriuretic Peptide 624 pg/mL (0-449) Total Protein 6.0 g/dL (6.4-8.2) Albumin 2.3 g/dL (3.4-5.0) Lipase 83 U/L (73-393) Laboratory Tests Test 08/17/18 08:40 White Blood Count 7.1 x10^3/uL (4.0-11.0) Red Blood Count 3.78 x10^6/uL (3.50-5.40) Hemoglobin 10.3 g/dL (12.0-15.5) Hematocrit 31.2 % (36.0-47.0) Mean Corpuscular Volume 83 fL (79-100) Mean Corpuscular Hemoglobin 27 pg (25-35) Mean Corpuscular Hemoglobin Concent 33 g/dL (31-37) Red Cell Distribution Width 15.7 % (11.5-14.5) Platelet Count 242 x10^3/uL (140-400) Neutrophils (%) (Auto) 66 % (31-73) Lymphocytes (%) (Auto) 21 % (24-48) Monocytes (%) (Auto) 9 % (0-9) Eosinophils (%) (Auto) 3 % (0-3) Basophils (%) (Auto) 1 % (0-3) Neutrophils # (Auto) 4.6 x10^3uL (1.8-7.7) Lymphocytes # (Auto) 1.5 x10^3/uL (1.0-4.8) Monocytes # (Auto) 0.7 x10^3/uL (0.0-1.1) Eosinophils # (Auto) 0.2 x10^3/uL (0.0-0.7) Basophils # (Auto) 0.1 x10^3/uL (0.0-0.2) Sodium Level 142 mmol/L (136-145) Potassium Level 4.4 mmol/L (3.5-5.1) Chloride Level 104 mmol/L (98-107) Carbon Dioxide Level 30 mmol/L (21-32) Anion Gap 8 (6-14) Blood Urea Nitrogen 8 mg/dL (7-20) Creatinine 0.8 mg/dL (0.6-1.0) Estimated GFR (Cockcroft-Gault) 69.0 Glucose Level 89 mg/dL (70-99) Calcium Level 8.6 mg/dL (8.5-10.1) Total Bilirubin 0.5 mg/dL (0.2-1.0) Direct Bilirubin 0.2 mg/dL (0.0-0.2) Aspartate Amino Transf (AST/SGOT) 19 U/L (15-37) Alanine Aminotransferase (ALT/SGPT) 12 U/L (14-59) Alkaline Phosphatase 72 U/L (46-116) Troponin I Quantitative < 0.017 ng/mL (0.000-0.055) EX-Xnb-T-Type Natriuretic Peptide 624 pg/mL (0-449) Total Protein 6.0 g/dL (6.4-8.2) Albumin 2.3 g/dL (3.4-5.0) Lipase 83 U/L (73-393) Images Images CXR - 1. Small bilateral pleural effusions, larger on the right. 2. Mild bibasilar airspace disease. 3. Increased interstitial markings may be chronic. Cannot exclude a component of acute interstitial edema. VTE Prophylaxis Ordered VTE Prophylaxis Devices: No VTE Pharmacological Prophylaxi: Yes Assessment/Plan Assessment/Plan A/P: Clvtk-ov-ipcgcdi respiratory failure related to acute exacerbation of chronic obstructive pulmonary disease and probably kxcrw-fo-vsqbmxy cor pulmonale. She does have increasing ankle edema. Abnormal chest x-ray, but appears to be unchanged from previous films. She has parenchymal scarring bilaterally along with left lower lobe atelectasis - Clinically, less likely pneumonia, CHF with COPD is likely Rcveabnx-up-iepqqx protein-calorie malnutrition - has been eating every meal since admission after steroid administration Hypothyroidism with mildly increased TSH level > 6 previously, will monitor ?Diastolic CHF - improved with some gentle diuresis, will cont this Plan: Continue present bronchodilators Continue present oxygen. IV steroids with gradual taper, likely to oral over the weekend Leonel odonnell Discussed with RN, reviewed labs. KAYE LANDA MD Aug 17, 2018 11:26
[2018-08-17] MEDS ORDERED: ONDANSETRON PF 4 MG/2 ML VIAL. IV PRN (11:30)
[2018-08-17] MEDS ORDERED: MAGNESIUM HYDROXIDE 2,400 MG/30 ML ORAL.SUSP. PO PRN (11:30)
[2018-08-17] MEDS ORDERED: ACETAMINOPHEN 325 MG TABLET. PO PRN ×2 (11:30)
[2018-08-17] MEDS ORDERED: DEXTROSE 50% 25 GM / 50ML DISP.SYRIN. IV PRN (11:45)
[2018-08-17] MEDS: INSULIN LISPRO 300 UNITS/3 ML INSULN.PEN. SQ SCH ×2 (12:00→17:00)
[2018-08-17] MEDS: BUDESONIDE 0.5 MG/2 ML NEBU. NEB SCH ×2 (12:41→19:44)
[2018-08-17] MEDS: IPRATRPIUM/ALBUTEROL 0.5/2.5MG 3 ML NEBU. NEB SCH ×3 (12:42→19:44)
[2018-08-17] MEDS ORDERED: NYSTATIN TOPICAL POWDER 15GM BOTTLE. TP PRN (13:00)
--- NOTE | 2018-08-17 13:17 | EKG ---
[facility] [address] [place] [address] Test Date: 2018-08-17 Test Time: 08:31:44 Pat Name: ALKA CASTILLO Department: Room: [facility] Gender: F Fire Watcher: : 1940 Requested By: KODY SEWELL Order Number: [id number] Reading MD: Todd Hammond Measurements Intervals [place] Rate: 74 P: [place]: QRS: 7 QRSD: 76 T: 31 QT: 396 QTc: 445 Interpretive Statements SINUS RHYTHM Electronically Signed On 08-20-2018 8:45:37 TRIM DIE MAKER by Todd Hammond
--- NOTE | 2018-08-17 13:32 | CONS ---
DATE OF CONSULTATION: PULMONARY CONSULTATION ATTENDING PHYSICIAN: Sher Munguia M.D. REASON FOR CONSULTATION: Dyspnea. HISTORY OF PRESENT ILLNESS: The patient is an 78-year-old female who has past medical history of severe oxygen-dependent COPD with chronic hypoxic respiratory failure. She is on home oxygen at 4 liters. She has a history of diastolic CHF. She has required frequent hospitalizations. She was brought into the hospital with increased shortness of breath. She said she has no cough. No chest pain. No headaches. No nausea or vomiting. No diarrhea. No fever or chills. She said she has some edema of her hand, which is improving. Her chest x-ray was reviewed. It shows small bilateral pleural effusions, which is a new finding and vascular markings, slightly prominent, suggesting maybe mild heart failure. I have been asked to see her for further evaluation. PAST MEDICAL HISTORY: History of COPD, history of chronic respiratory failure, history of diastolic dysfunction and history of peripheral neuropathy. PAST SURGICAL HISTORY: Cholecystectomy. FAMILY HISTORY: Coronary artery disease. SOCIAL HISTORY: She has a long history of tobacco use, but no longer smokes cigarettes. ALLERGIES: DOXYCYCLINE. MEDICATIONS: Reviewed as listed in the MRAD, including antibiotic, steroids and diuresis. REVIEW OF SYSTEMS: Twelve-point system obtained. Pertinent positives discussed in my history of present illness, otherwise noncontributory. All systems that were negative were reviewed as well. PHYSICAL EXAMINATION: GENERAL: On examination, she is awake, in no obvious respiratory distress. VITAL SIGNS: She is on 5 liters of oxygen via nasal cannula with saturation 95%, afebrile. HEENT: Sclerae nonicteric. NECK: Supple. LUNGS: With diminished breath sounds posteriorly. CARDIOVASCULAR EXAMINATION: Regular rate and rhythm. ABDOMEN: Soft. EXTREMITIES: With trace ankle edema. LABORATORY DATA: Labs are reviewed. White cell count 7.1, hemoglobin 10.3 and platelets 242,000. BUN and creatinine 8 and 0.8. IMPRESSION: 1. Gnxmq-of-vaoeomd hypoxic respiratory failure, likely secondary to mild right heart failure/xaghn-sh-ujtcmtn diastolic heart failure. 2. Clinically, no signs to suspect pneumonia. 3. The patient has underlying severe chronic obstructive pulmonary disease with chronic hypoxic respiratory failure and is on oxygen at 4 liters. 4. Abnormal chest x-ray with bilateral effusions and prominent vascular markings, suggesting mild congestive heart failure. RECOMMENDATIONS: 1. Continue with present oxygen, with gradual wean to baseline of 4 liters. 2. IV diuresis. 3. Taper off steroids. 4. Antibiotics can be discontinued in the next 24 hours. 5. Continue bronchodilators. 6. Heparin for DVT prophylaxis. 7. Discussed with Dr. Munguia. SHERON URENA MD DR: WINNIE/rito JOB#: [id number] / [id number]
[2018-08-17] MEDS: ASPIRIN ENTERIC COATED 81 MG TABLET.DR. PO SCH (13:53)
[2018-08-17] MEDS: CARVEDILOL 6.25 MG TABLET. PO SCH ×2 (13:53→17:00)
[2018-08-17] MEDS: FERROUS SULFATE 325 MG TABLET. PO SCH (13:53)
[2018-08-17] MEDS: AZITHROMYCIN 500 MG in IV NORMAL SALINE 250ML 250 ML IV SCH (13:55)
[2018-08-17] MEDS: HEPARIN for SUB-Q USE 5,000 UNIT/ML VIAL. SQ SCH ×2 (14:15→20:44)
[2018-08-17 15:00] VITALS: BP 150/66
[2018-08-17 19:00] VITALS: BP 126/58
[2018-08-17] MEDS: ATORVASTATIN CALCIUM 10 MG TABLET. PO SCH (20:36)
[2018-08-17] MEDS: SENNOSIDES/DOCUSATE 8.6/50MG TABLET. PO SCH (20:36)
[2018-08-17] MEDS ORDERED: methylPREDNISolone SOD SUCC PF 40 MG/ML VIAL. IV SCH (21:00)
[2018-08-17] MEDS ORDERED: DOXYCYCLINE HYCLATE 100 MG TABLET PO SCH (21:00)
[2018-08-17 22:58] VITALS: BP 140/64
[2018-08-18 03:00] VITALS: BP 135/57
[2018-08-18 05:04] LABS: BASO % 0 % (0-3); EOS % 0 % (0-3); HEMATOCRIT 28.7 % (36.0-47.0); HEMOGLOBIN 9.4 g/dL (12.0-15.5); LYMPH # 0.7 x10^3/uL (1.0-4.8); LYMPH % 13 % (24-48); MEAN CORPUSCULAR HEMOGLOBIN 27 pg (25-35); MEAN CORPUSCULAR HGB CONC 33 g/dL (31-37); MEAN CORPUSCULAR VOLUME 82 fL (79-100); MONO # 0.1 x10^3/uL (0.0-1.1); MONO % 3 % (0-9); NEUT # 4.8 x10^3uL (1.8-7.7); NEUT % 84 % (31-73); PLATELET COUNT 232 x10^3/uL (140-400); RED BLOOD COUNT 3.48 x10^6/uL (3.50-5.40); RED CELL DISTRIBUTION WIDTH 15.1 % (11.5-14.5); WHITE BLOOD COUNT 5.7 x10^3/uL (4.0-11.0)
[2018-08-18 07:00] VITALS: BP 146/71
[2018-08-18] MEDS: BUDESONIDE 0.5 MG/2 ML NEBU. NEB SCH ×2 (07:17→19:25)
[2018-08-18] MEDS: IPRATRPIUM/ALBUTEROL 0.5/2.5MG 3 ML NEBU. NEB SCH ×4 (07:17→19:25)
[2018-08-18] MEDS: INSULIN LISPRO 300 UNITS/3 ML INSULN.PEN. SQ SCH ×3 (08:00→16:54)
--- NOTE | 2018-08-18 09:03 | PDOC ---
PULMONARY PROGRESS NOTES Subjective no soa Vitals Vital Signs Date Time Temp Pulse Resp B/P (MAP) Pulse Ox O2 Delivery O2 Flow Rate FiO2 08/18/18 07:19 91 Nasal Cannula 4.0 08/18/18 07:00 97.6 85 18 146/71 (96) 97.6 General: Alert, No acute distress Lungs: Other (decrease bs) Cardiovascular: S1, S2 Abdomen: Soft, Non-tender Neuro Exam: Alert Extremities: Other (trace edema) Labs Laboratory Tests Test 08/17/18 08:40 08/17/18 11:52 08/17/18 12:23 08/17/18 16:18 White Blood Count 7.1 x10^3/uL (4.0-11.0) Red Blood Count 3.78 x10^6/uL (3.50-5.40) Hemoglobin 10.3 g/dL (12.0-15.5) Hematocrit 31.2 % (36.0-47.0) Mean Corpuscular Volume 83 fL (79-100) Mean Corpuscular Hemoglobin 27 pg (25-35) Mean Corpuscular Hemoglobin Concent 33 g/dL (31-37) Red Cell Distribution Width 15.7 % (11.5-14.5) Platelet Count 242 x10^3/uL (140-400) Neutrophils (%) (Auto) 66 % (31-73) Lymphocytes (%) (Auto) 21 % (24-48) Monocytes (%) (Auto) 9 % (0-9) Eosinophils (%) (Auto) 3 % (0-3) Basophils (%) (Auto) 1 % (0-3) Neutrophils # (Auto) 4.6 x10^3uL (1.8-7.7) Lymphocytes # (Auto) 1.5 x10^3/uL (1.0-4.8) Monocytes # (Auto) 0.7 x10^3/uL (0.0-1.1) Eosinophils # (Auto) 0.2 x10^3/uL (0.0-0.7) Basophils # (Auto) 0.1 x10^3/uL (0.0-0.2) Sodium Level 142 mmol/L (136-145) Potassium Level 4.4 mmol/L (3.5-5.1) Chloride Level 104 mmol/L (98-107) Carbon Dioxide Level 30 mmol/L (21-32) Anion Gap 8 (6-14) Blood Urea Nitrogen 8 mg/dL (7-20) Creatinine 0.8 mg/dL (0.6-1.0) Estimated GFR (Cockcroft-Gault) 69.0 Glucose Level 89 mg/dL (70-99) Calcium Level 8.6 mg/dL (8.5-10.1) Total Bilirubin 0.5 mg/dL (0.2-1.0) Direct Bilirubin 0.2 mg/dL (0.0-0.2) Aspartate Amino Transf (AST/SGOT) 19 U/L (15-37) Alanine Aminotransferase (ALT/SGPT) 12 U/L (14-59) Alkaline Phosphatase 72 U/L (46-116) Troponin I Quantitative < 0.017 ng/mL (0.000-0.055) YV-Yed-A-Type Natriuretic Peptide 624 pg/mL (0-449) Total Protein 6.0 g/dL (6.4-8.2) Albumin 2.3 g/dL (3.4-5.0) Lipase 83 U/L (73-393) Thyroid Stimulating Hormone (TSH) 3.705 uIU/mL (0.358-3.74) Glucose (Fingerstick) 92 mg/dL (70-99) 211 mg/dL (70-99) Nasal Screen 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) Test 08/17/18 20:37 08/18/18 03:55 08/18/18 08:13 Glucose (Fingerstick) 191 mg/dL (70-99) 150 mg/dL (70-99) White Blood Count 5.7 x10^3/uL (4.0-11.0) Red Blood Count 3.48 x10^6/uL (3.50-5.40) Hemoglobin 9.4 g/dL (12.0-15.5) Hematocrit 28.7 % (36.0-47.0) Mean Corpuscular Volume 82 fL (79-100) Mean Corpuscular Hemoglobin 27 pg (25-35) Mean Corpuscular Hemoglobin Concent 33 g/dL (31-37) Red Cell Distribution Width 15.1 % (11.5-14.5) Platelet Count 232 x10^3/uL (140-400) Neutrophils (%) (Auto) 84 % (31-73) Lymphocytes (%) (Auto) 13 % (24-48) Monocytes (%) (Auto) 3 % (0-9) Eosinophils (%) (Auto) 0 % (0-3) Basophils (%) (Auto) 0 % (0-3) Neutrophils # (Auto) 4.8 x10^3uL (1.8-7.7) Lymphocytes # (Auto) 0.7 x10^3/uL (1.0-4.8) Monocytes # (Auto) 0.1 x10^3/uL (0.0-1.1) Eosinophils # (Auto) 0.0 x10^3/uL (0.0-0.7) Basophils # (Auto) 0.0 x10^3/uL (0.0-0.2) Laboratory Tests Test 08/17/18 11:52 08/17/18 12:23 08/17/18 16:18 08/17/18 20:37 Glucose (Fingerstick) 92 mg/dL (70-99) 211 mg/dL (70-99) 191 mg/dL (70-99) Nasal Screen 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) Test 08/18/18 03:55 08/18/18 08:13 White Blood Count 5.7 x10^3/uL (4.0-11.0) Red Blood Count 3.48 x10^6/uL (3.50-5.40) Hemoglobin 9.4 g/dL (12.0-15.5) Hematocrit 28.7 % (36.0-47.0) Mean Corpuscular Volume 82 fL (79-100) Mean Corpuscular Hemoglobin 27 pg (25-35) Mean Corpuscular Hemoglobin Concent 33 g/dL (31-37) Red Cell Distribution Width 15.1 % (11.5-14.5) Platelet Count 232 x10^3/uL (140-400) Neutrophils (%) (Auto) 84 % (31-73) Lymphocytes (%) (Auto) 13 % (24-48) Monocytes (%) (Auto) 3 % (0-9) Eosinophils (%) (Auto) 0 % (0-3) Basophils (%) (Auto) 0 % (0-3) Neutrophils # (Auto) 4.8 x10^3uL (1.8-7.7) Lymphocytes # (Auto) 0.7 x10^3/uL (1.0-4.8) Monocytes # (Auto) 0.1 x10^3/uL (0.0-1.1) Eosinophils # (Auto) 0.0 x10^3/uL (0.0-0.7) Basophils # (Auto) 0.0 x10^3/uL (0.0-0.2) Glucose (Fingerstick) 150 mg/dL (70-99) Medications Active Scripts Medications Dose Route/Sig Max Daily Dose Days Date Category Augmentin 500-125 Tablet (Amoxicillin/Potassium Clav) 1 Each Tablet 1 Tab PO BID 07/12/18 Rx Furosemide 20 Mg Tablet 20 Mg PO DAILY 02/21/18 Rx Nystop (Nystatin) 60 Gm Powder 1 Rea TP QID 30 01/02/18 Rx Tylenol (Acetaminophen) 325 Mg Tablet 650 Mg PO TID PRN PRN 04/11/16 Reported Aspir 81 (Aspirin) 81 Mg Tablet.dr 1 Tab PO DAILY 04/11/16 Reported Iron Supplement (Ferrous Sulfate) 325 Mg Tablet 1 Tab PO DAILY 11/10/15 Reported Advair 250-50 Diskus (Fluticasone/Salmeterol) 1 Each Disk.w.dev 1 Puff IH BID 05/06/15 Reported Duoneb 0.5-3(2.5) Mg/3 Ml (Albuterol/Ipratropium) 3 Ml Ampul.neb 3 Ml IH Q4HRS PRN 05/06/15 Reported Pravastatin Sodium 10 Mg Tablet 1 Tab PO QHS 09/16/14 Reported Carvedilol (Carvedilol) 6.25 Mg Tablet 1 Tab PO BID 09/16/14 Reported Impression . 1. Coymr-tu-ntkstvj hypoxic respiratory failure, likely secondary to mild right heart failure/duwvn-fv-mxpspua diastolic heart failure. 2. Clinically, no signs to suspect pneumonia. 3. The patient has underlying severe chronic obstructive pulmonary disease with chronic hypoxic respiratory failure and is on oxygen at 4 liters. 4. Abnormal chest x-ray with bilateral effusions and prominent vascular markings, suggesting mild congestive heart failure. Plan . 1. Continue with present oxygen, baseline of 4 liters. 2. IV diuresis. 3. Taper off steroids. 4. Antibiotics can be discontinued 5. Continue bronchodilators. 6. Heparin for DVT prophylaxis. 7. Discussed with Dr. Munguia.08/17 SHERON URENA MD Aug 18, 2018 09:03
[2018-08-18] MEDS: LACTOBACILLUS RHAMNOSUS GG 1 CAPSULE. PO SCH ×2 (09:05→21:50)
[2018-08-18] MEDS: FERROUS SULFATE 325 MG TABLET. PO SCH (09:05)
[2018-08-18] MEDS: FUROSEMIDE 20 MG/2 ML VIAL. IVP SCH (09:06)
[2018-08-18] MEDS: ASPIRIN ENTERIC COATED 81 MG TABLET.DR. PO SCH (09:06)
[2018-08-18] MEDS: SENNOSIDES/DOCUSATE 8.6/50MG TABLET. PO SCH ×2 (09:06→21:50)
[2018-08-18] MEDS: CARVEDILOL 6.25 MG TABLET. PO SCH ×2 (09:06→17:02)
[2018-08-18] MEDS: HEPARIN for SUB-Q USE 5,000 UNIT/ML VIAL. SQ SCH ×2 (09:15→21:57)
--- NOTE | 2018-08-18 10:16 | PDOC ---
PROGRESS NOTES History of Present Illness History of Present Illness Assessment/Plan Assessment/Plan A/P: Abexg-ox-yeonxku respiratory failure related to acute exacerbation of chronic obstructive pulmonary disease and probably rkmny-hw-prmkvhn cor pulmonale. She does have increasing ankle edema. Abnormal chest x-ray, but appears to be unchanged from previous films. left lower lobe atelectasis - CHF with COPD is likely Ttzhzari-pg-hjihwz protein-calorie malnutrition - Hypothyroidism with mildly increased TSH Diastolic CHF NORMOCYTIC ANEMIA - Plan: Continue present bronchodilators Continue present oxygen. IV steroids with gradual taper, likely to oral over the weekend Lasix p.r.n. ECHO Cardiology consult reviewed all labs. fe panel Vitals Vitals Vital Signs Date Time Temp Pulse Resp B/P (MAP) Pulse Ox O2 Delivery O2 Flow Rate FiO2 08/18/18 09:06 85 146/71 08/18/18 07:19 91 Nasal Cannula 4.0 08/18/18 07:00 97.6 18 97.6 Physical Exam General: Alert, Oriented X3, Cooperative, No acute distress Heart: Regular rate Lungs: Other (decrease bs) Abdomen: Normal bowel sounds, Soft, No tenderness, No hepatosplenomegaly, No masses Extremities: No clubbing, No cyanosis, Normal pulses, No tenderness/swelling, Other (Scant LE edema 1+) Skin: No rashes, No breakdown, No significant lesion Labs LABS CHEST AP ONLY Clinical Indication: SHORT OF AIR Comparison: AP chest July 07, 2018. Findings: Atherosclerotic and tortuous thoracic aorta. Calcified AP window lymph node. Cardiac size stable. Small right pleural effusion. Question trace left pleural effusion. Increased interstitial markings are probably chronic. Mild bibasilar airspace disease. No pneumothorax. Advanced degenerative arthropathy of the shoulders. IMPRESSION: 1. Small bilateral pleural effusions, larger on the right. 2. Mild bibasilar airspace disease. 3. Increased interstitial markings may be chronic. Cannot exclude a component of acute interstitial edema. Electronically signed by: Charles Estrada MD (08/17/2018 8:50 AM) [id number] Laboratory Tests Test 08/17/18 11:52 08/17/18 12:23 08/17/18 16:18 08/17/18 20:37 Glucose (Fingerstick) 92 mg/dL (70-99) 211 mg/dL (70-99) 191 mg/dL (70-99) Nasal Screen 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) Test 08/18/18 03:55 08/18/18 08:13 White Blood Count 5.7 x10^3/uL (4.0-11.0) Red Blood Count 3.48 x10^6/uL (3.50-5.40) Hemoglobin 9.4 g/dL (12.0-15.5) Hematocrit 28.7 % (36.0-47.0) Mean Corpuscular Volume 82 fL (79-100) Mean Corpuscular Hemoglobin 27 pg (25-35) Mean Corpuscular Hemoglobin Concent 33 g/dL (31-37) Red Cell Distribution Width 15.1 % (11.5-14.5) Platelet Count 232 x10^3/uL (140-400) Neutrophils (%) (Auto) 84 % (31-73) Lymphocytes (%) (Auto) 13 % (24-48) Monocytes (%) (Auto) 3 % (0-9) Eosinophils (%) (Auto) 0 % (0-3) Basophils (%) (Auto) 0 % (0-3) Neutrophils # (Auto) 4.8 x10^3uL (1.8-7.7) Lymphocytes # (Auto) 0.7 x10^3/uL (1.0-4.8) Monocytes # (Auto) 0.1 x10^3/uL (0.0-1.1) Eosinophils # (Auto) 0.0 x10^3/uL (0.0-0.7) Basophils # (Auto) 0.0 x10^3/uL (0.0-0.2) Glucose (Fingerstick) 150 mg/dL (70-99) Assessment and Plan Assessmemt and Plan Problems Medical Problems: (1) COPD exacerbation Status: Acute (2) Dyspnea Status: Acute Comment Review of Relevant I have reviewed the following items [place] (where applicable) has been applied. Labs Laboratory Tests Test 08/17/18 08:40 08/17/18 11:52 08/17/18 12:23 08/17/18 16:18 White Blood Count 7.1 x10^3/uL (4.0-11.0) Red Blood Count 3.78 x10^6/uL (3.50-5.40) Hemoglobin 10.3 g/dL (12.0-15.5) Hematocrit 31.2 % (36.0-47.0) Mean Corpuscular Volume 83 fL (79-100) Mean Corpuscular Hemoglobin 27 pg (25-35) Mean Corpuscular Hemoglobin Concent 33 g/dL (31-37) Red Cell Distribution Width 15.7 % (11.5-14.5) Platelet Count 242 x10^3/uL (140-400) Neutrophils (%) (Auto) 66 % (31-73) Lymphocytes (%) (Auto) 21 % (24-48) Monocytes (%) (Auto) 9 % (0-9) Eosinophils (%) (Auto) 3 % (0-3) Basophils (%) (Auto) 1 % (0-3) Neutrophils # (Auto) 4.6 x10^3uL (1.8-7.7) Lymphocytes # (Auto) 1.5 x10^3/uL (1.0-4.8) Monocytes # (Auto) 0.7 x10^3/uL (0.0-1.1) Eosinophils # (Auto) 0.2 x10^3/uL (0.0-0.7) Basophils # (Auto) 0.1 x10^3/uL (0.0-0.2) Sodium Level 142 mmol/L (136-145) Potassium Level 4.4 mmol/L (3.5-5.1) Chloride Level 104 mmol/L (98-107) Carbon Dioxide Level 30 mmol/L (21-32) Anion Gap 8 (6-14) Blood Urea Nitrogen 8 mg/dL (7-20) Creatinine 0.8 mg/dL (0.6-1.0) Estimated GFR (Cockcroft-Gault) 69.0 Glucose Level 89 mg/dL (70-99) Calcium Level 8.6 mg/dL (8.5-10.1) Total Bilirubin 0.5 mg/dL (0.2-1.0) Direct Bilirubin 0.2 mg/dL (0.0-0.2) Aspartate Amino Transf (AST/SGOT) 19 U/L (15-37) Alanine Aminotransferase (ALT/SGPT) 12 U/L (14-59) Alkaline Phosphatase 72 U/L (46-116) Troponin I Quantitative < 0.017 ng/mL (0.000-0.055) ZQ-Ref-K-Type Natriuretic Peptide 624 pg/mL (0-449) Total Protein 6.0 g/dL (6.4-8.2) Albumin 2.3 g/dL (3.4-5.0) Lipase 83 U/L (73-393) Thyroid Stimulating Hormone (TSH) 3.705 uIU/mL (0.358-3.74) Glucose (Fingerstick) 92 mg/dL (70-99) 211 mg/dL (70-99) Nasal Screen 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) Test 08/17/18 20:37 08/18/18 03:55 08/18/18 08:13 Glucose (Fingerstick) 191 mg/dL (70-99) 150 mg/dL (70-99) White Blood Count 5.7 x10^3/uL (4.0-11.0) Red Blood Count 3.48 x10^6/uL (3.50-5.40) Hemoglobin 9.4 g/dL (12.0-15.5) Hematocrit 28.7 % (36.0-47.0) Mean Corpuscular Volume 82 fL (79-100) Mean Corpuscular Hemoglobin 27 pg (25-35) Mean Corpuscular Hemoglobin Concent 33 g/dL (31-37) Red Cell Distribution Width 15.1 % (11.5-14.5) Platelet Count 232 x10^3/uL (140-400) Neutrophils (%) (Auto) 84 % (31-73) Lymphocytes (%) (Auto) 13 % (24-48) Monocytes (%) (Auto) 3 % (0-9) Eosinophils (%) (Auto) 0 % (0-3) Basophils (%) (Auto) 0 % (0-3) Neutrophils # (Auto) 4.8 x10^3uL (1.8-7.7) Lymphocytes # (Auto) 0.7 x10^3/uL (1.0-4.8) Monocytes # (Auto) 0.1 x10^3/uL (0.0-1.1) Eosinophils # (Auto) 0.0 x10^3/uL (0.0-0.7) Basophils # (Auto) 0.0 x10^3/uL (0.0-0.2) Laboratory Tests Test 08/17/18 11:52 08/17/18 12:23 08/17/18 16:18 08/17/18 20:37 Glucose (Fingerstick) 92 mg/dL (70-99) 211 mg/dL (70-99) 191 mg/dL (70-99) Nasal Screen 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) Test 08/18/18 03:55 08/18/18 08:13 White Blood Count 5.7 x10^3/uL (4.0-11.0) Red Blood Count 3.48 x10^6/uL (3.50-5.40) Hemoglobin 9.4 g/dL (12.0-15.5) Hematocrit 28.7 % (36.0-47.0) Mean Corpuscular Volume 82 fL (79-100) Mean Corpuscular Hemoglobin 27 pg (25-35) Mean Corpuscular Hemoglobin Concent 33 g/dL (31-37) Red Cell Distribution Width 15.1 % (11.5-14.5) Platelet Count 232 x10^3/uL (140-400) Neutrophils (%) (Auto) 84 % (31-73) Lymphocytes (%) (Auto) 13 % (24-48) Monocytes (%) (Auto) 3 % (0-9) Eosinophils (%) (Auto) 0 % (0-3) Basophils (%) (Auto) 0 % (0-3) Neutrophils # (Auto) 4.8 x10^3uL (1.8-7.7) Lymphocytes # (Auto) 0.7 x10^3/uL (1.0-4.8) Monocytes # (Auto) 0.1 x10^3/uL (0.0-1.1) Eosinophils # (Auto) 0.0 x10^3/uL (0.0-0.7) Basophils # (Auto) 0.0 x10^3/uL (0.0-0.2) Glucose (Fingerstick) 150 mg/dL (70-99) Medications Current Medications Albuterol/ Ipratropium (Duoneb) 3 ml 1X ONCE NEB Last administered on at 08:37; Start 08/17/18 at 08:30; Stop 08/17/18 at 08:31; Status DC Methylprednisolone Sodium Succinate (SOLU-Medrol 125MG VIAL) 125 mg 1X ONCE IV Last administered on 08/17/18at 09:37; Start 08/17/18 at 09:30; Stop at 09:31; Status DC Furosemide (Lasix) 20 mg 1X ONCE IVP Last administered on 08/17/18at 10:08; Start 08/17/18 at 10:00; Stop 08/17/18 at 10:01; Status DC Ondansetron HCl (Zofran) 4 mg PRN Q6HRS PRN IV NAUSEA/VOMITING; Start at 11:30 Acetaminophen (Tylenol) 650 mg PRN Q6HRS PRN PO mild pain, Temp > 101.5F; Start 08/17/18 at 11:30 Senna/Docusate Sodium (Senna Plus) 1 tab BID PO Last administered on 08/18/18at 09:06; Start 08/17/18 at 21:00 Magnesium Hydroxide (Milk Of Magnesia) 2,400 mg PRN Q12HR PRN PO CONSTIPATION; Start 08/17/18 at 11:30 Heparin Sodium (Porcine) (Heparin Sodium) 5,000 unit Q12HR SQ Last administered on 08/18/18at 09:15; Start 08/17/18 at 12:00 Albuterol/ Ipratropium (Duoneb) 3 ml RTQID NEB Last administered on 08/18/18at 07:17; Start 08/17/18 at 12:00 Doxycycline Hyclate (Vibra-Tab) 100 mg BID PO ; Start 08/17/18 at 21:00; Status UNV Methylprednisolone Sodium Succinate (SOLU-Medrol 40MG VIAL) 40 mg Q12HR IV Last administered on 08/17/18at 20:36; Start 08/17/18 at 21:00; Stop 08/18/18 at 09:04; Status DC Budesonide (Pulmicort) 0.5 mg RTBID NEB Last administered on 08/18/18at 07:17; Start 08/17/18 at 12:00 Furosemide (Lasix) 20 mg DAILY IVP Last administered on 08/18/18at 09:06; Start 08/18/18 at 09:00 Acetaminophen (Tylenol) 650 mg TID PRN PRN PO PAIN; Start 08/17/18 at 11:30; Status UNV Aspirin (Ecotrin) 81 mg DAILY PO Last administered on 08/18/18at 09:06; Start 08/17/18 at 12:00 Carvedilol (Coreg) 6.25 mg BIDWMEALS PO Last administered on 08/18/18at 09:06; Start 08/17/18 at 12:00 Ferrous Sulfate (Feosol) 325 mg DAILY PO Last administered on 08/18/18at 09:05; Start 08/17/18 at 12:00 Nystatin (Nystop) 1 rea PRN QID PRN TP RASH; Start 08/17/18 at 13:00 Atorvastatin Calcium (Lipitor) 5 mg QHS PO Last administered on 08/17/18at 20: 36; Start 08/17/18 at 21:00 Insulin Human Lispro (HumaLOG) 0-7 UNITS TIDWMEALS SQ ; Start 08/17/18 at 12:00 Dextrose (Dextrose 50%-Water Syringe) 12.5 gm PRN Q15MIN PRN IV SEE COMMENTS; Start 08/17/18 at 11:45 Azithromycin 500 mg/Sodium Chloride 250 ml @ 250 mls/hr Q24H IV Last administered on 08/17/18at 13:55; Start 08/17/18 at 12:00 Lactobacillus Rhamnosus (Culturelle) 1 cap BID PO Last administered on at 09:05; Start 08/18/18 at 09:30 Methylprednisolone Sodium Succinate (SOLU-Medrol 40MG VIAL) 40 mg QD IV ; Start 08/19/18 at 09:00 Active Scripts Active Augmentin 500-125 Tablet (Amoxicillin/Potassium Clav) 1 Each Tablet 1 Tab PO BID Furosemide 20 Mg Tablet 20 Mg PO DAILY Nystop (Nystatin) 60 Gm Powder 1 Rea TP QID 30 Days Reported Tylenol (Acetaminophen) 325 Mg Tablet 650 Mg PO TID PRN PRN Aspir 81 (Aspirin) 81 Mg Tablet.dr 1 Tab PO DAILY Iron Supplement (Ferrous Sulfate) 325 Mg Tablet 1 Tab PO DAILY Advair 250-50 Diskus (Fluticasone/Salmeterol) 1 Each Disk.w.dev 1 Puff IH BID Duoneb 0.5-3(2.5) Mg/3 Ml (Albuterol/Ipratropium) 3 Ml Ampul.neb 3 Ml IH Q4HRS PRN Pravastatin Sodium 10 Mg Tablet 1 Tab PO QHS Carvedilol (Carvedilol) 6.25 Mg Tablet 1 Tab PO BID Vitals/I & O Vital Sign - Last 24 Hours 08/17/18 08/17/18 08/17/18 08/17/18 11:00 12:00 12:42 12:46 Temp 97.9 97.9 Pulse 82 Resp 18 B/P (MAP) 148/69 (95) Pulse Ox 97 95 95 O2 Delivery 4 Liters Nasal Cannula Nasal Cannula Nasal Cannula O2 Flow Rate 4.0 5.0 5.0 08/17/18 08/17/18 08/17/18 08/17/18 13:53 15:00 16:12 19:00 Temp 98.1 98.7 98.1 98.7 Pulse 82 81 83 Resp 18 18 B/P (MAP) 148/69 150/66 (94) 126/58 (80) Pulse Ox 93 93 O2 Delivery 4 Liters Nasal Cannula Nasal Cannula O2 Flow Rate 5.0 4.0 08/17/18 08/17/18 08/17/18 08/18/18 19:45 20:40 22:58 03:00 Temp 97.6 98.5 97.6 98.5 Pulse 83 99 Resp 22 20 B/P (MAP) 140/64 (89) 135/57 (83) Pulse Ox 94 90 O2 Delivery Nasal Cannula Nasal Cannula Nasal Cannula Nasal Cannula O2 Flow Rate 5.0 4.0 4.0 4.0 08/18/18 08/18/18 08/18/18 07:00 07:19 09:06 Temp 97.6 97.6 Pulse 85 85 Resp 18 B/P (MAP) 146/71 (96) 146/71 Pulse Ox 96 91 O2 Delivery Nasal Cannula Nasal Cannula O2 Flow Rate 4.0 Intake and Output 08/17/18 08/17/18 08/18/18 15:01 23:01 07:01 Intake Total 250 ml 600 ml Output Total 300 ml 1200 ml Balance -50 ml -600 ml FAITH BEAN MD Aug 18, 2018 10:16
[2018-08-18 11:00] VITALS: BP 136/62
[2018-08-18] MEDS: AZITHROMYCIN 500 MG in IV NORMAL SALINE 250ML 250 ML IV SCH (12:22)
--- NOTE | 2018-08-18 14:51 | PDOC ---
Provider Note Provider Note CARDIOLOGY CONSULTATION: CC: SOA HPI 78 y.o F well known to our service presenting with recurrent dyspnea. No chest pain. No new med changes. States that steroids helped her since admission. No other acute cardiac issues. She has been admitted now up to more than a 6 times this year with COPD/SOA issues. Pmhx: 1. End stage COPD 2. Chronic diastolic HF 3. HTN Sochx: Recently discharged from nursing facility ALL: doxy Current CV meds: Lasix 20mg IVP ASA Atorvastatin Coreg ROS: Negative for 07/01 systems as noted above. Physical Exam; VSS Decreased bilateral breath sounds Normal heart tones. 1+ pitting edema bilaterally. Neck veins flat. Labs reviewed; BNP mildly elevated. Lower compared to previous admissions. Cr stable. Hgb/plts stable. EKG reviewed. CXR: mild bilateral effusions. Impression: 1. Chronic resp failure - multifactorial - mostly due to COPD exacerbation with mild chronic diastolic heart failure with cor pulmonale RECS 1. Continue diuresis with lasix. 2. Supportive care. No further CV testing needed. 3. patient not ready for hospice care at this time. Pls call with questions. MAT RUEDA MD Aug 18, 2018 14:51
[2018-08-18 15:00] VITALS: BP 120/72
[2018-08-18 19:00] VITALS: BP 115/55
[2018-08-18] MEDS ORDERED: diphenhydrAMINE HCL 25 MG CAPSULE PO ONE (19:15)
[2018-08-18] MEDS ORDERED: diphenhydrAMINE ORAL ELIXIR 12.5 MG/5 ML ML PO ONE (21:45)
[2018-08-18] MEDS: ATORVASTATIN CALCIUM 10 MG TABLET. PO SCH (21:50)
[2018-08-18 23:00] VITALS: BP 120/49
[2018-08-19 03:00] VITALS: BP 110/57
[2018-08-19 04:55] LABS: BASO # 0.1 x10^3/uL (0.0-0.2); BASO % 1 % (0-3); EOS # 0.1 x10^3/uL (0.0-0.7); EOS % 1 % (0-3); HEMATOCRIT 26.6 % (36.0-47.0); HEMOGLOBIN 8.6 g/dL (12.0-15.5); LYMPH # 2.2 x10^3/uL (1.0-4.8); LYMPH % 26 % (24-48); MEAN CORPUSCULAR HEMOGLOBIN 27 pg (25-35); MEAN CORPUSCULAR HGB CONC 32 g/dL (31-37); MEAN CORPUSCULAR VOLUME 82 fL (79-100); MONO # 0.7 x10^3/uL (0.0-1.1); MONO % 8 % (0-9); NEUT # 5.4 x10^3uL (1.8-7.7); NEUT % 64 % (31-73); PLATELET COUNT 230 x10^3/uL (140-400); RED BLOOD COUNT 3.23 x10^6/uL (3.50-5.40); RED CELL DISTRIBUTION WIDTH 15.3 % (11.5-14.5); WHITE BLOOD COUNT 8.4 x10^3/uL (4.0-11.0)
[2018-08-19 06:40] LABS: CALCIUM 7.9 mg/dL (8.5-10.1); GFR 53.3; POTASSIUM 3.7 mmol/L (3.5-5.1)
[2018-08-19 07:00] VITALS: BP 127/52
[2018-08-19] MEDS: BUDESONIDE 0.5 MG/2 ML NEBU. NEB SCH ×2 (07:33→19:23)
[2018-08-19] MEDS: IPRATRPIUM/ALBUTEROL 0.5/2.5MG 3 ML NEBU. NEB SCH ×4 (07:33→19:22)
[2018-08-19] MEDS: INSULIN LISPRO 300 UNITS/3 ML INSULN.PEN. SQ SCH ×3 (08:00→17:00)
[2018-08-19] MEDS: LACTOBACILLUS RHAMNOSUS GG 1 CAPSULE. PO SCH ×2 (08:41→20:52)
[2018-08-19] MEDS: FUROSEMIDE 20 MG/2 ML VIAL. IVP SCH (08:41)
[2018-08-19] MEDS: FERROUS SULFATE 325 MG TABLET. PO SCH (08:41)
[2018-08-19] MEDS: ASPIRIN ENTERIC COATED 81 MG TABLET.DR. PO SCH (08:42)
[2018-08-19] MEDS: CARVEDILOL 6.25 MG TABLET. PO SCH ×2 (08:42→18:24)
[2018-08-19] MEDS: SENNOSIDES/DOCUSATE 8.6/50MG TABLET. PO SCH ×2 (08:42→20:52)
[2018-08-19] MEDS: methylPREDNISolone SOD SUCC PF 40 MG/ML VIAL. IV SCH (08:42)
[2018-08-19] MEDS: HEPARIN for SUB-Q USE 5,000 UNIT/ML VIAL. SQ SCH ×2 (08:50→21:00)
[2018-08-19 11:00] VITALS: BP 105/48
--- NOTE | 2018-08-19 11:10 | PDOC ---
PULMONARY PROGRESS NOTES Subjective no soa Vitals Vital Signs Date Time Temp Pulse Resp B/P (MAP) Pulse Ox O2 Delivery O2 Flow Rate FiO2 08/19/18 08:42 80 110/57 08/19/18 08:00 Nasal Cannula 4.0 08/19/18 07:35 95 08/19/18 07:00 97.8 18 97.8 General: Alert, No acute distress Lungs: Other (decrease bs) Cardiovascular: S1, S2 Abdomen: Soft, Non-tender Neuro Exam: Alert Extremities: Other (trace edema) Labs Laboratory Tests Test 08/17/18 11:52 08/17/18 12:23 08/17/18 16:18 08/17/18 20:37 Glucose (Fingerstick) 92 mg/dL (70-99) 211 mg/dL (70-99) 191 mg/dL (70-99) Nasal Screen 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) Test 08/18/18 03:55 08/18/18 08:13 08/18/18 11:31 08/18/18 16:49 White Blood Count 5.7 x10^3/uL (4.0-11.0) Red Blood Count 3.48 x10^6/uL (3.50-5.40) Hemoglobin 9.4 g/dL (12.0-15.5) Hematocrit 28.7 % (36.0-47.0) Mean Corpuscular Volume 82 fL (79-100) Mean Corpuscular Hemoglobin 27 pg (25-35) Mean Corpuscular Hemoglobin Concent 33 g/dL (31-37) Red Cell Distribution Width 15.1 % (11.5-14.5) Platelet Count 232 x10^3/uL (140-400) Neutrophils (%) (Auto) 84 % (31-73) Lymphocytes (%) (Auto) 13 % (24-48) Monocytes (%) (Auto) 3 % (0-9) Eosinophils (%) (Auto) 0 % (0-3) Basophils (%) (Auto) 0 % (0-3) Neutrophils # (Auto) 4.8 x10^3uL (1.8-7.7) Lymphocytes # (Auto) 0.7 x10^3/uL (1.0-4.8) Monocytes # (Auto) 0.1 x10^3/uL (0.0-1.1) Eosinophils # (Auto) 0.0 x10^3/uL (0.0-0.7) Basophils # (Auto) 0.0 x10^3/uL (0.0-0.2) Iron Level 22 ug/dL (50-170) Total Iron Binding Capacity 241 ug/dL (250-450) Iron Saturation 9 % (15-34) Glucose (Fingerstick) 150 mg/dL (70-99) 138 mg/dL (70-99) 121 mg/dL (70-99) Test 08/18/18 20:43 08/19/18 04:30 08/19/18 07:18 Glucose (Fingerstick) 130 mg/dL (70-99) 80 mg/dL (70-99) White Blood Count 8.4 x10^3/uL (4.0-11.0) Red Blood Count 3.23 x10^6/uL (3.50-5.40) Hemoglobin 8.6 g/dL (12.0-15.5) Hematocrit 26.6 % (36.0-47.0) Mean Corpuscular Volume 82 fL (79-100) Mean Corpuscular Hemoglobin 27 pg (25-35) Mean Corpuscular Hemoglobin Concent 32 g/dL (31-37) Red Cell Distribution Width 15.3 % (11.5-14.5) Platelet Count 230 x10^3/uL (140-400) Neutrophils (%) (Auto) 64 % (31-73) Lymphocytes (%) (Auto) 26 % (24-48) Monocytes (%) (Auto) 8 % (0-9) Eosinophils (%) (Auto) 1 % (0-3) Basophils (%) (Auto) 1 % (0-3) Neutrophils # (Auto) 5.4 x10^3uL (1.8-7.7) Lymphocytes # (Auto) 2.2 x10^3/uL (1.0-4.8) Monocytes # (Auto) 0.7 x10^3/uL (0.0-1.1) Eosinophils # (Auto) 0.1 x10^3/uL (0.0-0.7) Basophils # (Auto) 0.1 x10^3/uL (0.0-0.2) Sodium Level 142 mmol/L (136-145) Potassium Level 3.7 mmol/L (3.5-5.1) Chloride Level 106 mmol/L (98-107) Carbon Dioxide Level 30 mmol/L (21-32) Anion Gap 6 (6-14) Blood Urea Nitrogen 30 mg/dL (7-20) Creatinine 1.0 mg/dL (0.6-1.0) Estimated GFR (Cockcroft-Gault) 53.3 Glucose Level 91 mg/dL (70-99) Calcium Level 7.9 mg/dL (8.5-10.1) Laboratory Tests Test 08/18/18 11:31 08/18/18 16:49 08/18/18 20:43 08/19/18 04:30 Glucose (Fingerstick) 138 mg/dL (70-99) 121 mg/dL (70-99) 130 mg/dL (70-99) White Blood Count 8.4 x10^3/uL (4.0-11.0) Red Blood Count 3.23 x10^6/uL (3.50-5.40) Hemoglobin 8.6 g/dL (12.0-15.5) Hematocrit 26.6 % (36.0-47.0) Mean Corpuscular Volume 82 fL (79-100) Mean Corpuscular Hemoglobin 27 pg (25-35) Mean Corpuscular Hemoglobin Concent 32 g/dL (31-37) Red Cell Distribution Width 15.3 % (11.5-14.5) Platelet Count 230 x10^3/uL (140-400) Neutrophils (%) (Auto) 64 % (31-73) Lymphocytes (%) (Auto) 26 % (24-48) Monocytes (%) (Auto) 8 % (0-9) Eosinophils (%) (Auto) 1 % (0-3) Basophils (%) (Auto) 1 % (0-3) Neutrophils # (Auto) 5.4 x10^3uL (1.8-7.7) Lymphocytes # (Auto) 2.2 x10^3/uL (1.0-4.8) Monocytes # (Auto) 0.7 x10^3/uL (0.0-1.1) Eosinophils # (Auto) 0.1 x10^3/uL (0.0-0.7) Basophils # (Auto) 0.1 x10^3/uL (0.0-0.2) Sodium Level 142 mmol/L (136-145) Potassium Level 3.7 mmol/L (3.5-5.1) Chloride Level 106 mmol/L (98-107) Carbon Dioxide Level 30 mmol/L (21-32) Anion Gap 6 (6-14) Blood Urea Nitrogen 30 mg/dL (7-20) Creatinine 1.0 mg/dL (0.6-1.0) Estimated GFR (Cockcroft-Gault) 53.3 Glucose Level 91 mg/dL (70-99) Calcium Level 7.9 mg/dL (8.5-10.1) Test 08/19/18 07:18 Glucose (Fingerstick) 80 mg/dL (70-99) Medications Active Scripts Medications Dose Route/Sig Max Daily Dose Days Date Category Augmentin 500-125 Tablet (Amoxicillin/Potassium Clav) 1 Each Tablet 1 Tab PO BID 07/12/18 Rx Furosemide 20 Mg Tablet 20 Mg PO DAILY 02/21/18 Rx Nystop (Nystatin) 60 Gm Powder 1 Rea TP QID 30 01/02/18 Rx Tylenol (Acetaminophen) 325 Mg Tablet 650 Mg PO TID PRN PRN 04/11/16 Reported Aspir 81 (Aspirin) 81 Mg Tablet.dr 1 Tab PO DAILY 04/11/16 Reported Iron Supplement (Ferrous Sulfate) 325 Mg Tablet 1 Tab PO DAILY 11/10/15 Reported Advair 250-50 Diskus (Fluticasone/Salmeterol) 1 Each Disk.w.dev 1 Puff IH BID 05/06/15 Reported Duoneb 0.5-3(2.5) Mg/3 Ml (Albuterol/Ipratropium) 3 Ml Ampul.neb 3 Ml IH Q4HRS PRN 05/06/15 Reported Pravastatin Sodium 10 Mg Tablet 1 Tab PO QHS 09/16/14 Reported Carvedilol (Carvedilol) 6.25 Mg Tablet 1 Tab PO BID 09/16/14 Reported Impression . 1. Nibqs-pb-[id number] hypoxic respiratory failure, likely secondary to mild right heart failure/taech-mf-welymwy diastolic heart failure. 2. Clinically, no signs to suspect pneumonia. 3. The patient has underlying severe chronic obstructive pulmonary disease with chronic hypoxic respiratory failure and is on oxygen at 4 liters. 4. Abnormal chest x-ray with bilateral effusions and prominent vascular markings, suggesting mild congestive heart failure. Plan . 1. Continue with present oxygen, baseline of 4 liters. 2. diuresis. 3. Taper off steroids. 4. Antibiotics can be discontinued 5. Continue bronchodilators. 6. Heparin for DVT prophylaxis. 7. DC HOME SOON SHERON URENA MD Aug 19, 2018 11:10
--- NOTE | 2018-08-19 11:18 | PDOC ---
PROGRESS NOTES History of Present Illness History of Present Illness Assessment/Plan Assessment/Plan A/P: Qkesz-qv-jjttkss respiratory failure related to acute exacerbation of chronic obstructive pulmonary disease and probably iulli-pi-yejqzin cor pulmonale. She does have increasing ankle edema. Abnormal chest x-ray, but appears to be unchanged from previous films. left lower lobe atelectasis - CHF with COPD is likely Vdyydzti-bd-whtatc protein-calorie malnutrition - Hypothyroidism with mildly increased TSH Diastolic CHF NORMOCYTIC ANEMIA - Plan: Continue present bronchodilators Continue present oxygen. IV steroids with gradual taper, likely to oral Lasix p.r.n. ECHO Cardiology consult reviewed all labs. fe panel pt does want hospice at this time Vitals Vitals Vital Signs Date Time Temp Pulse Resp B/P (MAP) Pulse Ox O2 Delivery O2 Flow Rate FiO2 08/19/18 08:42 80 110/57 08/19/18 08:00 Nasal Cannula 4.0 08/19/18 07:35 95 08/19/18 07:00 97.8 18 97.8 Physical Exam General: Alert, Oriented X3, Cooperative, No acute distress, mild distress Heart: Regular rate, Normal S1 Lungs: Other (decrease bs) Abdomen: Normal bowel sounds, Soft, No tenderness, No hepatosplenomegaly, No masses Extremities: No clubbing, No cyanosis, Normal pulses, No tenderness/swelling, Other (Scant LE edema 1+) Skin: No rashes, No breakdown, No significant lesion Labs LABS CHEST AP ONLY Clinical Indication: SHORT OF AIR Comparison: AP chest July 07, 2018. Findings: Atherosclerotic and tortuous thoracic aorta. Calcified AP window lymph node. Cardiac size stable. Small right pleural effusion. Question trace left pleural effusion. Increased interstitial markings are probably chronic. Mild bibasilar airspace disease. No pneumothorax. Advanced degenerative arthropathy of the shoulders. IMPRESSION: 1. Small bilateral pleural effusions, larger on the right. 2. Mild bibasilar airspace disease. 3. Increased interstitial markings may be chronic. Cannot exclude a component of acute interstitial edema. Electronically signed by: Charles Estrada MD (08/17/2018 8:50 AM) [id number] Laboratory Tests Test 08/18/18 11:31 08/18/18 16:49 08/18/18 20:43 08/19/18 04:30 Glucose (Fingerstick) 138 mg/dL (70-99) 121 mg/dL (70-99) 130 mg/dL (70-99) White Blood Count 8.4 x10^3/uL (4.0-11.0) Red Blood Count 3.23 x10^6/uL (3.50-5.40) Hemoglobin 8.6 g/dL (12.0-15.5) Hematocrit 26.6 % (36.0-47.0) Mean Corpuscular Volume 82 fL (79-100) Mean Corpuscular Hemoglobin 27 pg (25-35) Mean Corpuscular Hemoglobin Concent 32 g/dL (31-37) Red Cell Distribution Width 15.3 % (11.5-14.5) Platelet Count 230 x10^3/uL (140-400) Neutrophils (%) (Auto) 64 % (31-73) Lymphocytes (%) (Auto) 26 % (24-48) Monocytes (%) (Auto) 8 % (0-9) Eosinophils (%) (Auto) 1 % (0-3) Basophils (%) (Auto) 1 % (0-3) Neutrophils # (Auto) 5.4 x10^3uL (1.8-7.7) Lymphocytes # (Auto) 2.2 x10^3/uL (1.0-4.8) Monocytes # (Auto) 0.7 x10^3/uL (0.0-1.1) Eosinophils # (Auto) 0.1 x10^3/uL (0.0-0.7) Basophils # (Auto) 0.1 x10^3/uL (0.0-0.2) Sodium Level 142 mmol/L (136-145) Potassium Level 3.7 mmol/L (3.5-5.1) Chloride Level 106 mmol/L (98-107) Carbon Dioxide Level 30 mmol/L (21-32) Anion Gap 6 (6-14) Blood Urea Nitrogen 30 mg/dL (7-20) Creatinine 1.0 mg/dL (0.6-1.0) Estimated GFR (Cockcroft-Gault) 53.3 Glucose Level 91 mg/dL (70-99) Calcium Level 7.9 mg/dL (8.5-10.1) Test 08/19/18 07:18 Glucose (Fingerstick) 80 mg/dL (70-99) Assessment and Plan Assessmemt and Plan Problems Medical Problems: (1) COPD exacerbation Status: Acute (2) Dyspnea Status: Acute Comment Review of Relevant I have reviewed the following items [place] (where applicable) has been applied. Labs Laboratory Tests Test 08/17/18 11:52 08/17/18 12:23 08/17/18 16:18 08/17/18 20:37 Glucose (Fingerstick) 92 mg/dL (70-99) 211 mg/dL (70-99) 191 mg/dL (70-99) Nasal Screen 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) Test 08/18/18 03:55 08/18/18 08:13 08/18/18 11:31 08/18/18 16:49 White Blood Count 5.7 x10^3/uL (4.0-11.0) Red Blood Count 3.48 x10^6/uL (3.50-5.40) Hemoglobin 9.4 g/dL (12.0-15.5) Hematocrit 28.7 % (36.0-47.0) Mean Corpuscular Volume 82 fL (79-100) Mean Corpuscular Hemoglobin 27 pg (25-35) Mean Corpuscular Hemoglobin Concent 33 g/dL (31-37) Red Cell Distribution Width 15.1 % (11.5-14.5) Platelet Count 232 x10^3/uL (140-400) Neutrophils (%) (Auto) 84 % (31-73) Lymphocytes (%) (Auto) 13 % (24-48) Monocytes (%) (Auto) 3 % (0-9) Eosinophils (%) (Auto) 0 % (0-3) Basophils (%) (Auto) 0 % (0-3) Neutrophils # (Auto) 4.8 x10^3uL (1.8-7.7) Lymphocytes # (Auto) 0.7 x10^3/uL (1.0-4.8) Monocytes # (Auto) 0.1 x10^3/uL (0.0-1.1) Eosinophils # (Auto) 0.0 x10^3/uL (0.0-0.7) Basophils # (Auto) 0.0 x10^3/uL (0.0-0.2) Iron Level 22 ug/dL (50-170) Total Iron Binding Capacity 241 ug/dL (250-450) Iron Saturation 9 % (15-34) Glucose (Fingerstick) 150 mg/dL (70-99) 138 mg/dL (70-99) 121 mg/dL (70-99) Test 08/18/18 20:43 08/19/18 04:30 08/19/18 07:18 Glucose (Fingerstick) 130 mg/dL (70-99) 80 mg/dL (70-99) White Blood Count 8.4 x10^3/uL (4.0-11.0) Red Blood Count 3.23 x10^6/uL (3.50-5.40) Hemoglobin 8.6 g/dL (12.0-15.5) Hematocrit 26.6 % (36.0-47.0) Mean Corpuscular Volume 82 fL (79-100) Mean Corpuscular Hemoglobin 27 pg (25-35) Mean Corpuscular Hemoglobin Concent 32 g/dL (31-37) Red Cell Distribution Width 15.3 % (11.5-14.5) Platelet Count 230 x10^3/uL (140-400) Neutrophils (%) (Auto) 64 % (31-73) Lymphocytes (%) (Auto) 26 % (24-48) Monocytes (%) (Auto) 8 % (0-9) Eosinophils (%) (Auto) 1 % (0-3) Basophils (%) (Auto) 1 % (0-3) Neutrophils # (Auto) 5.4 x10^3uL (1.8-7.7) Lymphocytes # (Auto) 2.2 x10^3/uL (1.0-4.8) Monocytes # (Auto) 0.7 x10^3/uL (0.0-1.1) Eosinophils # (Auto) 0.1 x10^3/uL (0.0-0.7) Basophils # (Auto) 0.1 x10^3/uL (0.0-0.2) Sodium Level 142 mmol/L (136-145) Potassium Level 3.7 mmol/L (3.5-5.1) Chloride Level 106 mmol/L (98-107) Carbon Dioxide Level 30 mmol/L (21-32) Anion Gap 6 (6-14) Blood Urea Nitrogen 30 mg/dL (7-20) Creatinine 1.0 mg/dL (0.6-1.0) Estimated GFR (Cockcroft-Gault) 53.3 Glucose Level 91 mg/dL (70-99) Calcium Level 7.9 mg/dL (8.5-10.1) Laboratory Tests Test 08/18/18 11:31 08/18/18 16:49 08/18/18 20:43 08/19/18 04:30 Glucose (Fingerstick) 138 mg/dL (70-99) 121 mg/dL (70-99) 130 mg/dL (70-99) White Blood Count 8.4 x10^3/uL (4.0-11.0) Red Blood Count 3.23 x10^6/uL (3.50-5.40) Hemoglobin 8.6 g/dL (12.0-15.5) Hematocrit 26.6 % (36.0-47.0) Mean Corpuscular Volume 82 fL (79-100) Mean Corpuscular Hemoglobin 27 pg (25-35) Mean Corpuscular Hemoglobin Concent 32 g/dL (31-37) Red Cell Distribution Width 15.3 % (11.5-14.5) Platelet Count 230 x10^3/uL (140-400) Neutrophils (%) (Auto) 64 % (31-73) Lymphocytes (%) (Auto) 26 % (24-48) Monocytes (%) (Auto) 8 % (0-9) Eosinophils (%) (Auto) 1 % (0-3) Basophils (%) (Auto) 1 % (0-3) Neutrophils # (Auto) 5.4 x10^3uL (1.8-7.7) Lymphocytes # (Auto) 2.2 x10^3/uL (1.0-4.8) Monocytes # (Auto) 0.7 x10^3/uL (0.0-1.1) Eosinophils # (Auto) 0.1 x10^3/uL (0.0-0.7) Basophils # (Auto) 0.1 x10^3/uL (0.0-0.2) Sodium Level 142 mmol/L (136-145) Potassium Level 3.7 mmol/L (3.5-5.1) Chloride Level 106 mmol/L (98-107) Carbon Dioxide Level 30 mmol/L (21-32) Anion Gap 6 (6-14) Blood Urea Nitrogen 30 mg/dL (7-20) Creatinine 1.0 mg/dL (0.6-1.0) Estimated GFR (Cockcroft-Gault) 53.3 Glucose Level 91 mg/dL (70-99) Calcium Level 7.9 mg/dL (8.5-10.1) Test 08/19/18 07:18 Glucose (Fingerstick) 80 mg/dL (70-99) Medications Current Medications Albuterol/ Ipratropium (Duoneb) 3 ml 1X ONCE NEB Last administered on at 08:37; Start 08/17/18 at 08:30; Stop 08/17/18 at 08:31; Status DC Methylprednisolone Sodium Succinate (SOLU-Medrol 125MG VIAL) 125 mg 1X ONCE IV Last administered on 08/17/18at 09:37; Start 08/17/18 at 09:30; Stop at 09:31; Status DC Furosemide (Lasix) 20 mg 1X ONCE IVP Last administered on 08/17/18at 10:08; Start 08/17/18 at 10:00; Stop 08/17/18 at 10:01; Status DC Ondansetron HCl (Zofran) 4 mg PRN Q6HRS PRN IV NAUSEA/VOMITING; Start at 11:30 Acetaminophen (Tylenol) 650 mg PRN Q6HRS PRN PO mild pain, Temp > 101.5F; Start 08/17/18 at 11:30 Senna/Docusate Sodium (Senna Plus) 1 tab BID PO Last administered on 08/19/18at 08:42; Start 08/17/18 at 21:00 Magnesium Hydroxide (Milk Of Magnesia) 2,400 mg PRN Q12HR PRN PO CONSTIPATION; Start 08/17/18 at 11:30 Heparin Sodium (Porcine) (Heparin Sodium) 5,000 unit Q12HR SQ Last administered on 08/19/18at 08:50; Start 08/17/18 at 12:00 Albuterol/ Ipratropium (Duoneb) 3 ml RTQID NEB Last administered on 08/19/18at 07:33; Start 08/17/18 at 12:00 Doxycycline Hyclate (Vibra-Tab) 100 mg BID PO ; Start 08/17/18 at 21:00; Status UNV Methylprednisolone Sodium Succinate (SOLU-Medrol 40MG VIAL) 40 mg Q12HR IV Last administered on 08/17/18at 20:36; Start 08/17/18 at 21:00; Stop 08/18/18 at 09:04; Status DC Budesonide (Pulmicort) 0.5 mg RTBID NEB Last administered on 08/19/18 07:33; Start 08/17/18 at 12:00 Furosemide (Lasix) 20 mg DAILY IVP Last administered on 08/19/18 08:41; Start 08/18/18 at 09:00 Acetaminophen (Tylenol) 650 mg TID PRN PRN PO PAIN; Start 08/17/18 at 11:30; Status UNV Aspirin (Ecotrin) 81 mg DAILY PO Last administered on 08/19/18at 08:42; Start 08/17/18 at 12:00 Carvedilol (Coreg) 6.25 mg BIDWMEALS PO Last administered on 08/19/18at 08:42; Start 08/17/18 at 12:00 Ferrous Sulfate (Feosol) 325 mg DAILY PO Last administered on 08/19/18 08:41; Start 08/17/18 at 12:00 Nystatin (Nystop) 1 rea PRN QID PRN TP RASH; Start 08/17/18 at 13:00 Atorvastatin Calcium (Lipitor) 5 mg QHS PO Last administered on 08/18/18at 21:50 ; Start 08/17/18 at 21:00 Insulin Human Lispro (HumaLOG) 0-7 UNITS TIDWMEALS SQ ; Start 08/17/18 at 12:00 Dextrose (Dextrose 50%-Water Syringe) 12.5 gm PRN Q15MIN PRN IV SEE COMMENTS; Start 08/17/18 at 11:45 Azithromycin 500 mg/Sodium Chloride 250 ml @ 250 mls/hr Q24H IV Last administered on 08/18/18at 12:22; Start 08/17/18 at 12:00 Lactobacillus Rhamnosus (Culturelle) 1 cap BID PO Last administered on at 08:41; Start 08/18/18 at 09:30 Methylprednisolone Sodium Succinate (SOLU-Medrol 40MG VIAL) 40 mg QD IV Last administered on 08/19/18at 08:42; Start 08/19/18 at 09:00 Diphenhydramine HCl (Benadryl) 12.5 mg 1X ONCE PO Last administered on at 19:15; Start 08/18/18 at 19:15; Stop 08/18/18 at 19:16; Status DC Diphenhydramine HCl (Benadryl Oral Elixir) 12.5 mg 1X ONCE PO Last administered on 08/18/18at 21:50; Start 08/18/18 at 21:45; Stop 08/18/18 at 21:46 ; Status DC Active Scripts Active Augmentin 500-125 Tablet (Amoxicillin/Potassium Clav) 1 Each Tablet 1 Tab PO BID Furosemide 20 Mg Tablet 20 Mg PO DAILY Nystop (Nystatin) 60 Gm Powder 1 Rea TP QID 30 Days Reported Tylenol (Acetaminophen) 325 Mg Tablet 650 Mg PO TID PRN PRN Aspir 81 (Aspirin) 81 Mg Tablet.dr 1 Tab PO DAILY Iron Supplement (Ferrous Sulfate) 325 Mg Tablet 1 Tab PO DAILY Advair 250-50 Diskus (Fluticasone/Salmeterol) 1 Each Disk.w.dev 1 Puff IH BID Duoneb 0.5-3(2.5) Mg/3 Ml (Albuterol/Ipratropium) 3 Ml Ampul.neb 3 Ml IH Q4HRS PRN Pravastatin Sodium 10 Mg Tablet 1 Tab PO QHS Carvedilol (Carvedilol) 6.25 Mg Tablet 1 Tab PO BID Vitals/I & O Vital Sign - Last 24 Hours 08/18/18 08/18/18 08/18/18 08/18/18 12:10 15:00 15:35 17:02 Temp 98.3 98.3 Pulse 84 84 Resp 18 B/P (MAP) 120/72 (88) 120/72 Pulse Ox 96 94 O2 Delivery Nasal Cannula Nasal Cannula Nasal Cannula O2 Flow Rate 5.0 5.0 08/18/18 08/18/18 08/18/18 08/18/18 19:00 19:27 20:00 23:00 Temp 98.3 98.3 98.3 98.3 Pulse 79 86 Resp 18 18 B/P (MAP) 115/55 (75) 120/49 (72) Pulse Ox 95 93 98 O2 Delivery Nasal Cannula Nasal Cannula Nasal Cannula Nasal Cannula O2 Flow Rate 5.0 4.0 08/19/18 08/19/18 08/19/18 08/19/18 03:00 07:00 07:35 08:00 Temp 98.3 97.8 98.3 97.8 Pulse 80 82 Resp 18 18 B/P (MAP) 110/57 (74) 127/52 (77) Pulse Ox 97 93 95 O2 Delivery Nasal Cannula Nasal Cannula Nasal Cannula Nasal Cannula O2 Flow Rate 4.0 4.0 08/19/18 08:42 Pulse 80 B/P (MAP) 110/57 Intake and Output 08/18/18 08/18/18 08/19/18 15:00 23:00 07:00 Intake Total 660 ml 320 ml 350 ml Balance 660 ml 320 ml 350 ml FAITH BEAN MD Aug 19, 2018 11:18
[2018-08-19] MEDS: AZITHROMYCIN 500 MG in IV NORMAL SALINE 250ML 250 ML IV SCH (11:40)
[2018-08-19 15:00] VITALS: BP 117/45
[2018-08-19 19:00] VITALS: BP 142/63
[2018-08-19] MEDS: ATORVASTATIN CALCIUM 10 MG TABLET. PO SCH (20:52)
[2018-08-19 23:00] VITALS: BP 140/64
[2018-08-20 03:00] VITALS: BP 112/44
[2018-08-20 07:00] VITALS: BP 139/57
[2018-08-20] MEDS: BUDESONIDE 0.5 MG/2 ML NEBU. NEB SCH (07:00)
[2018-08-20] MEDS: IPRATRPIUM/ALBUTEROL 0.5/2.5MG 3 ML NEBU. NEB SCH ×2 (07:00→11:38)
[2018-08-20] MEDS: INSULIN LISPRO 300 UNITS/3 ML INSULN.PEN. SQ SCH ×2 (08:00→12:14)
[2018-08-20] MEDS: SENNOSIDES/DOCUSATE 8.6/50MG TABLET. PO SCH (08:30)
[2018-08-20] MEDS: ASPIRIN ENTERIC COATED 81 MG TABLET.DR. PO SCH (08:30)
[2018-08-20] MEDS: LACTOBACILLUS RHAMNOSUS GG 1 CAPSULE. PO SCH (08:31)
[2018-08-20] MEDS: CARVEDILOL 6.25 MG TABLET. PO SCH (08:31)
[2018-08-20] MEDS: FERROUS SULFATE 325 MG TABLET. PO SCH (08:31)
[2018-08-20] MEDS: methylPREDNISolone SOD SUCC PF 40 MG/ML VIAL. IV SCH (08:32)
[2018-08-20] MEDS: FUROSEMIDE 20 MG/2 ML VIAL. IVP SCH (08:33)
[2018-08-20] MEDS: HEPARIN for SUB-Q USE 5,000 UNIT/ML VIAL. SQ SCH (08:42)
--- NOTE | 2018-08-20 09:12 | PDOC ---
PULMONARY PROGRESS NOTES Subjective no soa Vitals Vital Signs Date Time Temp Pulse Resp B/P (MAP) Pulse Ox O2 Delivery O2 Flow Rate FiO2 08/20/18 08:31 72 139/57 08/20/18 07:00 95 Nasal Cannula 4.0 08/20/18 03:00 98.4 17 98.4 General: Alert, No acute distress Lungs: Other (decrease bs) Cardiovascular: S1, S2 Abdomen: Soft, Non-tender Neuro Exam: Alert Extremities: Other (trace edema) Labs Laboratory Tests Test 08/18/18 11:31 08/18/18 16:49 08/18/18 20:43 08/19/18 04:30 Glucose (Fingerstick) 138 mg/dL (70-99) 121 mg/dL (70-99) 130 mg/dL (70-99) White Blood Count 8.4 x10^3/uL (4.0-11.0) Red Blood Count 3.23 x10^6/uL (3.50-5.40) Hemoglobin 8.6 g/dL (12.0-15.5) Hematocrit 26.6 % (36.0-47.0) Mean Corpuscular Volume 82 fL (79-100) Mean Corpuscular Hemoglobin 27 pg (25-35) Mean Corpuscular Hemoglobin Concent 32 g/dL (31-37) Red Cell Distribution Width 15.3 % (11.5-14.5) Platelet Count 230 x10^3/uL (140-400) Neutrophils (%) (Auto) 64 % (31-73) Lymphocytes (%) (Auto) 26 % (24-48) Monocytes (%) (Auto) 8 % (0-9) Eosinophils (%) (Auto) 1 % (0-3) Basophils (%) (Auto) 1 % (0-3) Neutrophils # (Auto) 5.4 x10^3uL (1.8-7.7) Lymphocytes # (Auto) 2.2 x10^3/uL (1.0-4.8) Monocytes # (Auto) 0.7 x10^3/uL (0.0-1.1) Eosinophils # (Auto) 0.1 x10^3/uL (0.0-0.7) Basophils # (Auto) 0.1 x10^3/uL (0.0-0.2) Sodium Level 142 mmol/L (136-145) Potassium Level 3.7 mmol/L (3.5-5.1) Chloride Level 106 mmol/L (98-107) Carbon Dioxide Level 30 mmol/L (21-32) Anion Gap 6 (6-14) Blood Urea Nitrogen 30 mg/dL (7-20) Creatinine 1.0 mg/dL (0.6-1.0) Estimated GFR (Cockcroft-Gault) 53.3 Glucose Level 91 mg/dL (70-99) Calcium Level 7.9 mg/dL (8.5-10.1) Test 08/19/18 07:18 08/19/18 11:18 08/19/18 16:57 08/20/18 08:01 Glucose (Fingerstick) 80 mg/dL (70-99) 111 mg/dL (70-99) 193 mg/dL (70-99) 111 mg/dL (70-99) Laboratory Tests Test 08/19/18 11:18 08/19/18 16:57 08/20/18 08:01 Glucose (Fingerstick) 111 mg/dL (70-99) 193 mg/dL (70-99) 111 mg/dL (70-99) Medications Active Scripts Medications Dose Route/Sig Max Daily Dose Days Date Category Augmentin 500-125 Tablet (Amoxicillin/Potassium Clav) 1 Each Tablet 1 Tab PO BID 07/12/18 Rx Furosemide 20 Mg Tablet 20 Mg PO DAILY 02/21/18 Rx Nystop (Nystatin) 60 Gm Powder 1 Rea TP QID 30 01/02/18 Rx Tylenol (Acetaminophen) 325 Mg Tablet 650 Mg PO TID PRN PRN 04/11/16 Reported Aspir 81 (Aspirin) 81 Mg Tablet.dr 1 Tab PO DAILY 04/11/16 Reported Iron Supplement (Ferrous Sulfate) 325 Mg Tablet 1 Tab PO DAILY 11/10/15 Reported Advair 250-50 Diskus (Fluticasone/Salmeterol) 1 Each Disk.w.dev 1 Puff IH BID 05/06/15 Reported Duoneb 0.5-3(2.5) Mg/3 Ml (Albuterol/Ipratropium) 3 Ml Ampul.neb 3 Ml IH Q4HRS PRN 05/06/15 Reported Pravastatin Sodium 10 Mg Tablet 1 Tab PO QHS 09/16/14 Reported Carvedilol (Carvedilol) 6.25 Mg Tablet 1 Tab PO BID 09/16/14 Reported Impression . 1. Kbqwk-cw-ovradke hypoxic respiratory failure, likely secondary to mild right heart failure/tgzgg-wk-stgjnqa diastolic heart failure. 2. Clinically, no signs to suspect pneumonia. 3. The patient has underlying severe chronic obstructive pulmonary disease with chronic hypoxic respiratory failure and is on oxygen at 4 liters. 4. Abnormal chest x-ray with bilateral effusions and prominent vascular markings, suggesting mild congestive heart failure. Plan . OK TO D/C FOLLOW UP NEEDED JESSE STRANGE MD Aug 20, 2018 09:12
[2018-08-20 09:30] LABS: BASO % 0 % (0-3); EOS # 0.1 x10^3/uL (0.0-0.7); EOS % 1 % (0-3); HEMATOCRIT 29.7 % (36.0-47.0); LYMPH # 2.5 x10^3/uL (1.0-4.8); LYMPH % 26 % (24-48); MEAN CORPUSCULAR HEMOGLOBIN 28 pg (25-35); MEAN CORPUSCULAR HGB CONC 34 g/dL (31-37); MEAN CORPUSCULAR VOLUME 82 fL (79-100); MONO # 0.9 x10^3/uL (0.0-1.1); MONO % 10 % (0-9); NEUT % 63 % (31-73); PLATELET COUNT 260 x10^3/uL (140-400); RED BLOOD COUNT 3.61 x10^6/uL (3.50-5.40); RED CELL DISTRIBUTION WIDTH 15.2 % (11.5-14.5); WHITE BLOOD COUNT 9.4 x10^3/uL (4.0-11.0)
[2018-08-20 09:51] LABS: GFR 53.3; POTASSIUM 3.8 mmol/L (3.5-5.1)
--- NOTE | 2018-08-20 10:32 | PDOC ---
PROGRESS NOTES History of Present Illness History of Present Illness Assessment/Plan Assessment/Plan A/P: Dybsn-cw-qqkaxju respiratory failure related to acute exacerbation of chronic obstructive pulmonary disease and probably diezx-rc-kxpwczh cor pulmonale. She does have less ankle edema. Abnormal chest x-ray, but appears to be unchanged from previous films. left lower lobe atelectasis - CHF with COPD is likely Eshrbefg-ok-dgjbvu protein-calorie malnutrition - Hypothyroidism with mildly increased TSH Diastolic CHF NORMOCYTIC ANEMIA - eating lunch today in no distress Plan: Continue present bronchodilators Continue present oxygen. steroids oral Lasix p.r.n. ECHO Cardiology consult reviewed all labs. fe panel pt does want hospice at this time home today ok with pulm see pcp soon Vitals Vitals Vital Signs Date Time Temp Pulse Resp B/P (MAP) Pulse Ox O2 Delivery O2 Flow Rate FiO2 08/20/18 08:31 72 139/57 08/20/18 08:00 Nasal Cannula 4.0 08/20/18 07:00 98.1 18 98 98.1 Physical Exam General: Alert, Oriented X3, Cooperative, No acute distress, mild distress Heart: Regular rate, Normal S1, Normal S2 Lungs: Clear, Other (decrease bs) Abdomen: Normal bowel sounds, Soft, No tenderness, No hepatosplenomegaly, No masses Extremities: No clubbing, No cyanosis, Normal pulses, No tenderness/swelling, Other (Scant LE edema 1+) Skin: No rashes, No breakdown, No significant lesion Labs LABS Laboratory Tests Test 08/19/18 11:18 08/19/18 16:57 08/20/18 08:01 08/20/18 09:15 Glucose (Fingerstick) 111 mg/dL (70-99) 193 mg/dL (70-99) 111 mg/dL (70-99) White Blood Count 9.4 x10^3/uL (4.0-11.0) Red Blood Count 3.61 x10^6/uL (3.50-5.40) Hemoglobin 10.0 g/dL (12.0-15.5) Hematocrit 29.7 % (36.0-47.0) Mean Corpuscular Volume 82 fL (79-100) Mean Corpuscular Hemoglobin 28 pg (25-35) Mean Corpuscular Hemoglobin Concent 34 g/dL (31-37) Red Cell Distribution Width 15.2 % (11.5-14.5) Platelet Count 260 x10^3/uL (140-400) Neutrophils (%) (Auto) 63 % (31-73) Lymphocytes (%) (Auto) 26 % (24-48) Monocytes (%) (Auto) 10 % (0-9) Eosinophils (%) (Auto) 1 % (0-3) Basophils (%) (Auto) 0 % (0-3) Neutrophils # (Auto) 6.0 x10^3uL (1.8-7.7) Lymphocytes # (Auto) 2.5 x10^3/uL (1.0-4.8) Monocytes # (Auto) 0.9 x10^3/uL (0.0-1.1) Eosinophils # (Auto) 0.1 x10^3/uL (0.0-0.7) Basophils # (Auto) 0.0 x10^3/uL (0.0-0.2) Test 08/20/18 09:18 Sodium Level 142 mmol/L (136-145) Potassium Level 3.8 mmol/L (3.5-5.1) Chloride Level 105 mmol/L (98-107) Carbon Dioxide Level 31 mmol/L (21-32) Anion Gap 6 (6-14) Blood Urea Nitrogen 28 mg/dL (7-20) Creatinine 1.0 mg/dL (0.6-1.0) Estimated GFR (Cockcroft-Gault) 53.3 Glucose Level 152 mg/dL (70-99) Calcium Level 8.0 mg/dL (8.5-10.1) Assessment and Plan Assessmemt and Plan Problems Medical Problems: (1) COPD exacerbation Status: Acute (2) Dyspnea Status: Acute Comment Review of Relevant I have reviewed the following items [place] (where applicable) has been applied. Labs Laboratory Tests Test 08/18/18 11:31 08/18/18 16:49 08/18/18 20:43 08/19/18 04:30 Glucose (Fingerstick) 138 mg/dL (70-99) 121 mg/dL (70-99) 130 mg/dL (70-99) White Blood Count 8.4 x10^3/uL (4.0-11.0) Red Blood Count 3.23 x10^6/uL (3.50-5.40) Hemoglobin 8.6 g/dL (12.0-15.5) Hematocrit 26.6 % (36.0-47.0) Mean Corpuscular Volume 82 fL (79-100) Mean Corpuscular Hemoglobin 27 pg (25-35) Mean Corpuscular Hemoglobin Concent 32 g/dL (31-37) Red Cell Distribution Width 15.3 % (11.5-14.5) Platelet Count 230 x10^3/uL (140-400) Neutrophils (%) (Auto) 64 % (31-73) Lymphocytes (%) (Auto) 26 % (24-48) Monocytes (%) (Auto) 8 % (0-9) Eosinophils (%) (Auto) 1 % (0-3) Basophils (%) (Auto) 1 % (0-3) Neutrophils # (Auto) 5.4 x10^3uL (1.8-7.7) Lymphocytes # (Auto) 2.2 x10^3/uL (1.0-4.8) Monocytes # (Auto) 0.7 x10^3/uL (0.0-1.1) Eosinophils # (Auto) 0.1 x10^3/uL (0.0-0.7) Basophils # (Auto) 0.1 x10^3/uL (0.0-0.2) Sodium Level 142 mmol/L (136-145) Potassium Level 3.7 mmol/L (3.5-5.1) Chloride Level 106 mmol/L (98-107) Carbon Dioxide Level 30 mmol/L (21-32) Anion Gap 6 (6-14) Blood Urea Nitrogen 30 mg/dL (7-20) Creatinine 1.0 mg/dL (0.6-1.0) Estimated GFR (Cockcroft-Gault) 53.3 Glucose Level 91 mg/dL (70-99) Calcium Level 7.9 mg/dL (8.5-10.1) Test 08/19/18 07:18 08/19/18 11:18 08/19/18 16:57 08/20/18 08:01 Glucose (Fingerstick) 80 mg/dL (70-99) 111 mg/dL (70-99) 193 mg/dL (70-99) 111 mg/dL (70-99) Test 08/20/18 09:15 08/20/18 09:18 White Blood Count 9.4 x10^3/uL (4.0-11.0) Red Blood Count 3.61 x10^6/uL (3.50-5.40) Hemoglobin 10.0 g/dL (12.0-15.5) Hematocrit 29.7 % (36.0-47.0) Mean Corpuscular Volume 82 fL (79-100) Mean Corpuscular Hemoglobin 28 pg (25-35) Mean Corpuscular Hemoglobin Concent 34 g/dL (31-37) Red Cell Distribution Width 15.2 % (11.5-14.5) Platelet Count 260 x10^3/uL (140-400) Neutrophils (%) (Auto) 63 % (31-73) Lymphocytes (%) (Auto) 26 % (24-48) Monocytes (%) (Auto) 10 % (0-9) Eosinophils (%) (Auto) 1 % (0-3) Basophils (%) (Auto) 0 % (0-3) Neutrophils # (Auto) 6.0 x10^3uL (1.8-7.7) Lymphocytes # (Auto) 2.5 x10^3/uL (1.0-4.8) Monocytes # (Auto) 0.9 x10^3/uL (0.0-1.1) Eosinophils # (Auto) 0.1 x10^3/uL (0.0-0.7) Basophils # (Auto) 0.0 x10^3/uL (0.0-0.2) Sodium Level 142 mmol/L (136-145) Potassium Level 3.8 mmol/L (3.5-5.1) Chloride Level 105 mmol/L (98-107) Carbon Dioxide Level 31 mmol/L (21-32) Anion Gap 6 (6-14) Blood Urea Nitrogen 28 mg/dL (7-20) Creatinine 1.0 mg/dL (0.6-1.0) Estimated GFR (Cockcroft-Gault) 53.3 Glucose Level 152 mg/dL (70-99) Calcium Level 8.0 mg/dL (8.5-10.1) Laboratory Tests Test 08/19/18 11:18 08/19/18 16:57 08/20/18 08:01 08/20/18 09:15 Glucose (Fingerstick) 111 mg/dL (70-99) 193 mg/dL (70-99) 111 mg/dL (70-99) White Blood Count 9.4 x10^3/uL (4.0-11.0) Red Blood Count 3.61 x10^6/uL (3.50-5.40) Hemoglobin 10.0 g/dL (12.0-15.5) Hematocrit 29.7 % (36.0-47.0) Mean Corpuscular Volume 82 fL (79-100) Mean Corpuscular Hemoglobin 28 pg (25-35) Mean Corpuscular Hemoglobin Concent 34 g/dL (31-37) Red Cell Distribution Width 15.2 % (11.5-14.5) Platelet Count 260 x10^3/uL (140-400) Neutrophils (%) (Auto) 63 % (31-73) Lymphocytes (%) (Auto) 26 % (24-48) Monocytes (%) (Auto) 10 % (0-9) Eosinophils (%) (Auto) 1 % (0-3) Basophils (%) (Auto) 0 % (0-3) Neutrophils # (Auto) 6.0 x10^3uL (1.8-7.7) Lymphocytes # (Auto) 2.5 x10^3/uL (1.0-4.8) Monocytes # (Auto) 0.9 x10^3/uL (0.0-1.1) Eosinophils # (Auto) 0.1 x10^3/uL (0.0-0.7) Basophils # (Auto) 0.0 x10^3/uL (0.0-0.2) Test 08/20/18 09:18 Sodium Level 142 mmol/L (136-145) Potassium Level 3.8 mmol/L (3.5-5.1) Chloride Level 105 mmol/L (98-107) Carbon Dioxide Level 31 mmol/L (21-32) Anion Gap 6 (6-14) Blood Urea Nitrogen 28 mg/dL (7-20) Creatinine 1.0 mg/dL (0.6-1.0) Estimated GFR (Cockcroft-Gault) 53.3 Glucose Level 152 mg/dL (70-99) Calcium Level 8.0 mg/dL (8.5-10.1) Medications Current Medications Albuterol/ Ipratropium (Duoneb) 3 ml 1X ONCE NEB Last administered on at 08:37; Start 08/17/18 at 08:30; Stop 08/17/18 at 08:31; Status DC Methylprednisolone Sodium Succinate (SOLU-Medrol 125MG VIAL) 125 mg 1X ONCE IV Last administered on 08/17/18at 09:37; Start 08/17/18 at 09:30; Stop at 09:31; Status DC Furosemide (Lasix) 20 mg 1X ONCE IVP Last administered on 08/17/18at 10:08; Start 08/17/18 at 10:00; Stop 08/17/18 at 10:01; Status DC Ondansetron HCl (Zofran) 4 mg PRN Q6HRS PRN IV NAUSEA/VOMITING; Start at 11:30 Acetaminophen (Tylenol) 650 mg PRN Q6HRS PRN PO mild pain, Temp > 101.5F; Start 08/17/18 at 11:30 Senna/Docusate Sodium (Senna Plus) 1 tab BID PO Last administered on 08/20/18at 08:30; Start 08/17/18 at 21:00 Magnesium Hydroxide (Milk Of Magnesia) 2,400 mg PRN Q12HR PRN PO CONSTIPATION; Start 08/17/18 at 11:30 Heparin Sodium (Porcine) (Heparin Sodium) 5,000 unit Q12HR SQ Last administered on 08/20/18at 08:42; Start 08/17/18 at 12:00 Albuterol/ Ipratropium (Duoneb) 3 ml RTQID NEB Last administered on 08/20/18at 07:00; Start 08/17/18 at 12:00 Doxycycline Hyclate (Vibra-Tab) 100 mg BID PO ; Start 08/17/18 at 21:00; Status UNV Methylprednisolone Sodium Succinate (SOLU-Medrol 40MG VIAL) 40 mg Q12HR IV Last administered on 08/17/18at 20:36; Start 08/17/18 at 21:00; Stop 08/18/18 at 09:04; Status DC Budesonide (Pulmicort) 0.5 mg RTBID NEB Last administered on 08/20/18 07:00; Start 08/17/18 at 12:00 Furosemide (Lasix) 20 mg DAILY IVP Last administered on 08/20/18 08:33; Start 08/18/18 at 09:00 Acetaminophen (Tylenol) 650 mg TID PRN PRN PO PAIN; Start 08/17/18 at 11:30; Status UNV Aspirin (Ecotrin) 81 mg DAILY PO Last administered on 08/20/18 08:30; Start 08/17/18 at 12:00 Carvedilol (Coreg) 6.25 mg BIDWMEALS PO Last administered on 08/20/18 08:31; Start 08/17/18 at 12:00 Ferrous Sulfate (Feosol) 325 mg DAILY PO Last administered on 08/20/18 08:31; Start 08/17/18 at 12:00 Nystatin (Nystop) 1 rea PRN QID PRN TP RASH; Start 08/17/18 at 13:00 Atorvastatin Calcium (Lipitor) 5 mg QHS PO Last administered on 08/19/18at 20:52 ; Start 08/17/18 at 21:00 Insulin Human Lispro (HumaLOG) 0-7 UNITS TIDWMEALS SQ ; Start 08/17/18 at 12:00 Dextrose (Dextrose 50%-Water Syringe) 12.5 gm PRN Q15MIN PRN IV SEE COMMENTS; Start 08/17/18 at 11:45 Azithromycin 500 mg/Sodium Chloride 250 ml @ 250 mls/hr Q24H IV Last administered on 08/18/18 12:22; Start 08/17/18 at 12:00; Stop 08/19/18 at 11: 48; Status DC Lactobacillus Rhamnosus (Culturelle) 1 cap BID PO Last administered on 08:31; Start 08/18/18 at 09:30 Methylprednisolone Sodium Succinate (SOLU-Medrol 40MG VIAL) 40 mg QD IV Last administered on 08/20/18 08:32; Start 08/19/18 at 09:00 Diphenhydramine HCl (Benadryl) 12.5 mg 1X ONCE PO Last administered on at 19:15; Start 08/18/18 at 19:15; Stop 08/18/18 at 19:16; Status DC Diphenhydramine HCl (Benadryl Oral Elixir) 12.5 mg 1X ONCE PO Last administered on 08/18/18at 21:50; Start 08/18/18 at 21:45; Stop 08/18/18 at 21:46 ; Status DC Active Scripts Active Augmentin 500-125 Tablet (Amoxicillin/Potassium Clav) 1 Each Tablet 1 Tab PO BID Furosemide 20 Mg Tablet 20 Mg PO DAILY Nystop (Nystatin) 60 Gm Powder 1 Rea TP QID 30 Days Reported Tylenol (Acetaminophen) 325 Mg Tablet 650 Mg PO TID PRN PRN Aspir 81 (Aspirin) 81 Mg Tablet. 1 Tab PO DAILY Iron Supplement (Ferrous Sulfate) 325 Mg Tablet 1 Tab PO DAILY Advair 250-50 Diskus (Fluticasone/Salmeterol) 1 Each Disk.w.dev 1 Puff IH BID Duoneb 0.5-3(2.5) Mg/3 Ml (Albuterol/Ipratropium) 3 Ml Ampul.neb 3 Ml IH Q4HRS PRN Pravastatin Sodium 10 Mg Tablet 1 Tab PO QHS Carvedilol (Carvedilol) 6.25 Mg Tablet 1 Tab PO BID Vitals/I & O Vital Sign - Last 24 Hours 08/19/18 08/19/18 08/19/18 08/19/18 11:00 11:43 15:00 15:39 Temp 97.7 98.3 97.7 98.3 Pulse 69 73 Resp 18 18 B/P (MAP) 105/48 (67) 117/45 (69) Pulse Ox 100 99 95 99 O2 Delivery Nasal Cannula Nasal Cannula Nasal Cannula Nasal Cannula O2 Flow Rate 4.0 4.0 08/19/18 08/19/18 08/19/18 08/19/18 18:24 19:00 19:23 20:00 Temp 98.5 98.5 Pulse 73 74 Resp 18 B/P (MAP) 117/45 142/63 (89) Pulse Ox 94 99 O2 Delivery Nasal Cannula Nasal Cannula Nasal Cannula O2 Flow Rate 4.0 4.0 08/19/18 08/20/18 08/20/18 08/20/18 23:00 03:00 07:00 07:00 Temp 98.5 98.4 98.1 98.5 98.4 98.1 Pulse 72 87 72 Resp 18 17 18 B/P (MAP) 140/64 (89) 112/44 (66) 139/57 (84) Pulse Ox 96 95 95 98 O2 Delivery Nasal Cannula Nasal Cannula Nasal Cannula Nasal Cannula O2 Flow Rate 4.0 08/20/18 08/20/18 08:00 08:31 Pulse 72 B/P (MAP) 139/57 O2 Delivery Nasal Cannula O2 Flow Rate 4.0 Intake and Output 08/19/18 08/19/18 08/20/18 15:00 23:00 07:00 Intake Total 580 ml 220 ml 350 ml Balance 580 ml 220 ml 350 ml FAITH BEAN MD Aug 20, 2018 10:32
[2018-08-20 11:00] VITALS: BP 144/70
--- NOTE | 2018-08-20 12:21 | CARD ---
MR#: [id number] Date of Study: 08/20/2018 Ordering Physician: FAITH BEAN, Referring Physician: KAYE LANDA, Tech: Alice Bennett LUDMILA APPROVED REPORT EXAM: Two-dimensional and M-mode echocardiogram with Doppler and color Doppler. Other Information Quality : Good INDICATION Congestive Heart Failure 2D DIMENSIONS RVDd3.1 (2.9-3.5cm)Left Atrium(2D)4.1 (1.6-4.0cm) IVSd0.9 (0.7-1.1cm)Aortic Root(2D)2.6 (2.0-3.7cm) LVDd4.9 (3.9-5.9cm)LVOT Diameter2.2 (1.8-2.4cm) PWd1.0 (0.7-1.1cm)LVDs3.1 (2.5-4.0cm) FS (%) 30.0 %SV75.1 ml LVEF(%)60.0 (>50%) Aortic Valve AoV Peak Nikhil.123.9cm/sAoV VTI26.4cm AO Peak GR.6.1mmHgLVOT Peak Nikhil.123.4cm/s LVOT VTI 25.25cmAO Mean GR.3mmHg JAY (VMAX)3.07oe1MFD (VTI)3.47cm2 Mitral Valve MV E Dcamrhpt569.1cm/sMV DECEL [id number] MV A Ilejkoab102.3cm/sMV YSB60pr E/A Ratio0.9MVA (PHT)4.16cm2 TDI E/Lateral E'12.1E/Medial E'25.2 Tricuspid Valve TR P. Rftuqhsl114md/sRAP [id number] TR Peak Gr.[id number] Pulmonary Vein S1 Fkoijhmh95.1cm/sD2 Keoipmtk18.4cm/s LEFT VENTRICLE The left ventricle is normal size. There is normal left ventricular wall thickness. The left ventricu lar systolic function is normal and the ejection fraction is within normal range. The Ejection Fracti on is 55-60%. There is normal LV segmental wall motion. Transmitral Doppler flow pattern is Grade I-a bnormal relaxation pattern. RIGHT VENTRICLE The right ventricle is normal size. The right ventricular systolic function is normal. ATRIA The left atrium is mildly dilated. The right atrium size is normal. The interatrial septum is intact with no evidence for an atrial septal defect or patent foramen ovale as noted on 2-D or Doppler imagi ng. AORTIC VALVE The aortic valve is calcified but opens well. Doppler and Color Flow revealed no significant aortic r egurgitation. There is no significant aortic valvular stenosis. MITRAL VALVE The mitral valve is calcified but opens well. There is no evidence of mitral valve prolapse. There is no mitral valve stenosis. Doppler and Color-flow revealed trace to mild mitral regurgitation. TRICUSPID VALVE The tricuspid valve is normal in structure and function. Doppler and Color Flow revealed mild tricusp id regurgitation.There is moderate pulmonary hypertension.The PA pressure was estimated at 49 mmHg. T here is no tricuspid valve stenosis. PULMONIC VALVE The pulmonic valve is not well visualized. Doppler and Color Flow revealed no pulmonic valvular regur gitation. There is no pulmonic valvular stenosis. GREAT VESSELS The aortic root is normal in size. The ascending aorta is not well seen. The IVC is normal in size an d collapses >50% with inspiration. PERICARDIAL EFFUSION There is no evidence of significant pericardial effusion. Critical Notification Critical Value: No <Conclusion> The left ventricular systolic function is normal and the ejection fraction is within normal range. Th e Ejection Fraction is 55-60%. There is normal LV segmental wall motion. Doppler and Color Flow revealed mild tricuspid regurgitation.There is moderate pulmonary hypertension .The PA pressure was estimated at 49 mmHg. Signed by : Demian Luong, Electronically Approved : 08/20/2018 12:19:45
--- NOTE | 2018-08-20 14:07 | PDOC3 ---
Discharge Summary Date of Admission: Aug 17, 2018 Date of Discharge: Aug 20, 2018 Follow-Up: 3-5 days Admitting Diagnosis comment: Assessment/Plan Assessment/Plan A/P: Ptryd-sy-rpahxoo respiratory failure related to acute exacerbation of chronic obstructive pulmonary disease and probably pqvgg-it-wnlumpb cor pulmonale. She does have less ankle edema. Abnormal chest x-ray, but appears to be unchanged from previous films. left lower lobe atelectasis - CHF with COPD is likely [id number] protein-calorie malnutrition - Hypothyroidism with mildly increased TSH Diastolic CHF NORMOCYTIC ANEMIA - eating lunch today in no distress Plan: Continue present bronchodilators Continue present oxygen. steroids oral Lasix p.r.n. ECHO Cardiology consult reviewed all labs. fe panel pt does want hospice at this time home today ok with pulm see pcp soon Vitals Vitals Vital Signs Date Time Temp Pulse Resp B/P (MAP) Pulse Ox O2 Delivery O2 Flow Rate FiO2 08/20/18 08:31 72 139/57 08/20/18 08:00 Nasal Cannula 4.0 08/20/18 07:00 98.1 18 98 98.1 Physical Exam General: Alert, Oriented X3, Cooperative, No acute distress, Heart: Regular rate, Normal S1, Normal S2 Lungs: Clear, Other (decrease bs) Abdomen: Normal bowel sounds, Soft, No tenderness, No hepatosplenomegaly, No masses Extremities: No clubbing, No cyanosis, Normal pulses, No tenderness/swelling, Other (Scant LE edema 1+) Skin: No rashes, No breakdown, No significant lesion Labs FINAL DIAGNOSIS Problems Medical Problems: (1) COPD exacerbation Status: Acute (2) Dyspnea Status: Acute Brief Hospital Course Ms. Schwartz is a 78 old [sex] who presented with [ copd exac] CONDITION AT DISCHARGE: Improved Discharge Medications Current Medications Albuterol/ Ipratropium (Duoneb) 3 ml 1X ONCE NEB Last administered on at 08:37; Start 08/17/18 at 08:30; Stop 08/17/18 at 08:31; Status DC Methylprednisolone Sodium Succinate (SOLU-Medrol 125MG VIAL) 125 mg 1X ONCE IV Last administered on 08/17/18at 09:37; Start 08/17/18 at 09:30; Stop at 09:31; Status DC Furosemide (Lasix) 20 mg 1X ONCE IVP Last administered on 08/17/18at 10:08; Start 08/17/18 at 10:00; Stop 08/17/18 at 10:01; Status DC Ondansetron HCl (Zofran) 4 mg PRN Q6HRS PRN IV NAUSEA/VOMITING; Start at 11:30 Acetaminophen (Tylenol) 650 mg PRN Q6HRS PRN PO mild pain, Temp > 101.5F; Start 08/17/18 at 11:30 Senna/Docusate Sodium (Senna Plus) 1 tab BID PO Last administered on 08/20/18 08:30; Start 08/17/18 at 21:00 Magnesium Hydroxide (Milk Of Magnesia) 2,400 mg PRN Q12HR PRN PO CONSTIPATION; Start 08/17/18 at 11:30 Heparin Sodium (Porcine) (Heparin Sodium) 5,000 unit Q12HR SQ Last administered on 08/20/18at 08:42; Start 08/17/18 at 12:00 Albuterol/ Ipratropium (Duoneb) 3 ml RTQID NEB Last administered on 08/20/18at 11:38; Start 08/17/18 at 12:00 Doxycycline Hyclate (Vibra-Tab) 100 mg BID PO ; Start 08/17/18 at 21:00; Status UNV Methylprednisolone Sodium Succinate (SOLU-Medrol 40MG VIAL) 40 mg Q12HR IV Last administered on 08/17/18at 20:36; Start 08/17/18 at 21:00; Stop 08/18/18 at 09:04; Status DC Budesonide (Pulmicort) 0.5 mg RTBID NEB Last administered on 08/20/18at 07:00; Start 08/17/18 at 12:00 Furosemide (Lasix) 20 mg DAILY IVP Last administered on 08/20/18at 08:33; Start 08/18/18 at 09:00 Acetaminophen (Tylenol) 650 mg TID PRN PRN PO PAIN; Start 08/17/18 at 11:30; Status UNV Aspirin (Ecotrin) 81 mg DAILY PO Last administered on 08/20/18at 08:30; Start 08/17/18 at 12:00 Carvedilol (Coreg) 6.25 mg BIDWMEALS PO Last administered on 08/20/18 08:31; Start 08/17/18 at 12:00 Ferrous Sulfate (Feosol) 325 mg DAILY PO Last administered on 08/20/18at 08:31; Start 08/17/18 at 12:00 Nystatin (Nystop) 1 rea PRN QID PRN TP RASH; Start 08/17/18 at 13:00 Atorvastatin Calcium (Lipitor) 5 mg QHS PO Last administered on 08/19/18at 20:52 ; Start 08/17/18 at 21:00 Insulin Human Lispro (HumaLOG) 0-7 UNITS TIDWMEALS SQ Last administered on 08/20at 12:14; Start 08/17/18 at 12:00 Dextrose (Dextrose 50%-Water Syringe) 12.5 gm PRN Q15MIN PRN IV SEE COMMENTS; Start 08/17/18 at 11:45 Azithromycin 500 mg/Sodium Chloride 250 ml @ 250 mls/hr Q24H IV Last administered on 08/18/18at 12:22; Start 08/17/18 at 12:00; Stop 08/19/18 at 11: 48; Status DC Lactobacillus Rhamnosus (Culturelle) 1 cap BID PO Last administered on at 08:31; Start 08/18/18 at 09:30 Methylprednisolone Sodium Succinate (SOLU-Medrol 40MG VIAL) 40 mg QD IV Last administered on 08/20/18at 08:32; Start 08/19/18 at 09:00; Stop 08/20/18 at 12:40 ; Status DC Diphenhydramine HCl (Benadryl) 12.5 mg 1X ONCE PO Last administered on at 19:15; Start 08/18/18 at 19:15; Stop 08/18/18 at 19:16; Status DC Diphenhydramine HCl (Benadryl Oral Elixir) 12.5 mg 1X ONCE PO Last administered on 08/18/18at 21:50; Start 08/18/18 at 21:45; Stop 08/18/18 at 21:46 ; Status DC Prednisone (Prednisone) 30 mg DAILY08 PO ; Start 08/21/18 at 08:00 Active Scripts Active Augmentin 500-125 Tablet (Amoxicillin/Potassium Clav) 1 Each Tablet 1 Tab PO BID Furosemide 20 Mg Tablet 20 Mg PO DAILY Nystop (Nystatin) 60 Gm Powder 1 Rea TP QID 30 Days Reported Tylenol (Acetaminophen) 325 Mg Tablet 650 Mg PO TID PRN PRN Aspir 81 (Aspirin) 81 Mg Tablet. 1 Tab PO DAILY Iron Supplement (Ferrous Sulfate) 325 Mg Tablet 1 Tab PO DAILY Advair 250-50 Diskus (Fluticasone/Salmeterol) 1 Each Disk.w.dev 1 Puff IH BID Duoneb 0.5-3(2.5) Mg/3 Ml (Albuterol/Ipratropium) 3 Ml Ampul.neb 3 Ml IH Q4HRS PRN Pravastatin Sodium 10 Mg Tablet 1 Tab PO QHS Carvedilol (Carvedilol) 6.25 Mg Tablet 1 Tab PO BID Vital Signs Vital Signs Date Time Temp Pulse Resp B/P (MAP) Pulse Ox O2 Delivery O2 Flow Rate FiO2 08/20/18 11:39 Nasal Cannula 4.0 08/20/18 11:00 97.6 71 18 144/70 (94) 97 97.6 Labs Laboratory Tests Test 08/18/18 16:49 08/18/18 20:43 08/19/18 04:30 08/19/18 07:18 Glucose (Fingerstick) 121 mg/dL (70-99) 130 mg/dL (70-99) 80 mg/dL (70-99) White Blood Count 8.4 x10^3/uL (4.0-11.0) Red Blood Count 3.23 x10^6/uL (3.50-5.40) Hemoglobin 8.6 g/dL (12.0-15.5) Hematocrit 26.6 % (36.0-47.0) Mean Corpuscular Volume 82 fL (79-100) Mean Corpuscular Hemoglobin 27 pg (25-35) Mean Corpuscular Hemoglobin Concent 32 g/dL (31-37) Red Cell Distribution Width 15.3 % (11.5-14.5) Platelet Count 230 x10^3/uL (140-400) Neutrophils (%) (Auto) 64 % (31-73) Lymphocytes (%) (Auto) 26 % (24-48) Monocytes (%) (Auto) 8 % (0-9) Eosinophils (%) (Auto) 1 % (0-3) Basophils (%) (Auto) 1 % (0-3) Neutrophils # (Auto) 5.4 x10^3uL (1.8-7.7) Lymphocytes # (Auto) 2.2 x10^3/uL (1.0-4.8) Monocytes # (Auto) 0.7 x10^3/uL (0.0-1.1) Eosinophils # (Auto) 0.1 x10^3/uL (0.0-0.7) Basophils # (Auto) 0.1 x10^3/uL (0.0-0.2) Sodium Level 142 mmol/L (136-145) Potassium Level 3.7 mmol/L (3.5-5.1) Chloride Level 106 mmol/L (98-107) Carbon Dioxide Level 30 mmol/L (21-32) Anion Gap 6 (6-14) Blood Urea Nitrogen 30 mg/dL (7-20) Creatinine 1.0 mg/dL (0.6-1.0) Estimated GFR (Cockcroft-Gault) 53.3 Glucose Level 91 mg/dL (70-99) Calcium Level 7.9 mg/dL (8.5-10.1) Test 08/19/18 11:18 08/19/18 16:57 08/20/18 08:01 08/20/18 09:15 Glucose (Fingerstick) 111 mg/dL (70-99) 193 mg/dL (70-99) 111 mg/dL (70-99) White Blood Count 9.4 x10^3/uL (4.0-11.0) Red Blood Count 3.61 x10^6/uL (3.50-5.40) Hemoglobin 10.0 g/dL (12.0-15.5) Hematocrit 29.7 % (36.0-47.0) Mean Corpuscular Volume 82 fL (79-100) Mean Corpuscular Hemoglobin 28 pg (25-35) Mean Corpuscular Hemoglobin Concent 34 g/dL (31-37) Red Cell Distribution Width 15.2 % (11.5-14.5) Platelet Count 260 x10^3/uL (140-400) Neutrophils (%) (Auto) 63 % (31-73) Lymphocytes (%) (Auto) 26 % (24-48) Monocytes (%) (Auto) 10 % (0-9) Eosinophils (%) (Auto) 1 % (0-3) Basophils (%) (Auto) 0 % (0-3) Neutrophils # (Auto) 6.0 x10^3uL (1.8-7.7) Lymphocytes # (Auto) 2.5 x10^3/uL (1.0-4.8) Monocytes # (Auto) 0.9 x10^3/uL (0.0-1.1) Eosinophils # (Auto) 0.1 x10^3/uL (0.0-0.7) Basophils # (Auto) 0.0 x10^3/uL (0.0-0.2) Test 08/20/18 09:18 08/20/18 11:45 Sodium Level 142 mmol/L (136-145) Potassium Level 3.8 mmol/L (3.5-5.1) Chloride Level 105 mmol/L (98-107) Carbon Dioxide Level 31 mmol/L (21-32) Anion Gap 6 (6-14) Blood Urea Nitrogen 28 mg/dL (7-20) Creatinine 1.0 mg/dL (0.6-1.0) Estimated GFR (Cockcroft-Gault) 53.3 Glucose Level 152 mg/dL (70-99) Calcium Level 8.0 mg/dL (8.5-10.1) Glucose (Fingerstick) 165 mg/dL (70-99) Laboratory Tests Test 08/19/18 16:57 08/20/18 08:01 08/20/18 09:15 08/20/18 09:18 Glucose (Fingerstick) 193 mg/dL (70-99) 111 mg/dL (70-99) White Blood Count 9.4 x10^3/uL (4.0-11.0) Red Blood Count 3.61 x10^6/uL (3.50-5.40) Hemoglobin 10.0 g/dL (12.0-15.5) Hematocrit 29.7 % (36.0-47.0) Mean Corpuscular Volume 82 fL (79-100) Mean Corpuscular Hemoglobin 28 pg (25-35) Mean Corpuscular Hemoglobin Concent 34 g/dL (31-37) Red Cell Distribution Width 15.2 % (11.5-14.5) Platelet Count 260 x10^3/uL (140-400) Neutrophils (%) (Auto) 63 % (31-73) Lymphocytes (%) (Auto) 26 % (24-48) Monocytes (%) (Auto) 10 % (0-9) Eosinophils (%) (Auto) 1 % (0-3) Basophils (%) (Auto) 0 % (0-3) Neutrophils # (Auto) 6.0 x10^3uL (1.8-7.7) Lymphocytes # (Auto) 2.5 x10^3/uL (1.0-4.8) Monocytes # (Auto) 0.9 x10^3/uL (0.0-1.1) Eosinophils # (Auto) 0.1 x10^3/uL (0.0-0.7) Basophils # (Auto) 0.0 x10^3/uL (0.0-0.2) Sodium Level 142 mmol/L (136-145) Potassium Level 3.8 mmol/L (3.5-5.1) Chloride Level 105 mmol/L (98-107) Carbon Dioxide Level 31 mmol/L (21-32) Anion Gap 6 (6-14) Blood Urea Nitrogen 28 mg/dL (7-20) Creatinine 1.0 mg/dL (0.6-1.0) Estimated GFR (Cockcroft-Gault) 53.3 Glucose Level 152 mg/dL (70-99) Calcium Level 8.0 mg/dL (8.5-10.1) Test 08/20/18 11:45 Glucose (Fingerstick) 165 mg/dL (70-99) Allergies Allergies Coded Allergies Type Severity Reaction Last Updated Verified doxycycline Allergy Intermediate Rash 02/16/18 Yes I S O L A T I O N *CONTACT* Allergy Unknown 12/12/16 Yes Disposition/Orders: D/C to Home w/ HH Patient Instructions d/c planning 34 min FAITH BEAN MD Aug 20, 2018 14:07
--- NOTE | 2018-08-20 14:08 | DISCH ---
DISCHARGE WITH HOME HEALTH DISCHARGE INFORMATION: Final Diagnosis: Problems Medical Problems: (1) COPD exacerbation Status: Acute (2) Dyspnea Status: Acute Condition on Discharge: Stable CODE STATUS: Code Status: Full HOME HEALTH: Face to Face: I certify this patient is under my care and that I, or a nurse practitioner or physician's legislative assistant working with me, had a face to face encounter that meets the physician face to face encounter requirements with this patient on []. Medical Complications: COPD Physical Therapy For: Evalulation/Treatment Occupational Therapy For: Evaluation/Treatment Speech Language Pathology For: Evaluation/Treatment Home Health Aide For: Self-care FINISHED GOODS STOCK CLERK For: Community Resources Pt Meets Homebound Status: Unsteady balance w/ amb, POST DISCHARGE ORDERS: Activity Instructions for Disc: Activity as tolerated Weight Bearing Status after Di: As tolerated DIET AFTER DISCHARGE: Cardiac CHECKS AFTER DISCHARGE: Checks after discharge: Check blood press - daily, Check blood sugar, ac/hs FOLLOW-UP: Follow Up With: PCP in 1-2 weeks TREATMENT/EQUIPMENT ORDERS: Adaptive Equipment Issued: None, Front wheeled walker Discharge Respiratory Equipmen: Oxygen CERTIFICATION STATEMENT: Certification Statement: Certification Statement: Based on the above finding, I certify that this patient is confined to the home and needs intermittent correction care, physical therapy and/or speech therapy, or continues to need occupational therapy.~ This patient is under my care, and I have initiated the establishment of the plan of care.~ This patient will be followed by myself or a community physician who will periodically review the plan of care. Home Meds Active Scripts Amoxicillin/Potassium Clav (AUGMENTIN 500-125 TABLET) 1 Each Tablet, 1 TAB PO BID, #20 TAB Prov:TESS LOZANO MD 07/12/18 Furosemide (FUROSEMIDE) 20 Mg Tablet, 20 MG PO DAILY, #30 TAB Prov:LUKAS DWYER MD 02/21/18 Nystatin (NYSTOP) 60 Gm Powder, 1 LETICIA TP QID for 30 Days, MISC Prov:TESS LOZANO MD 01/02/18 Reported Medications Acetaminophen (TYLENOL) 325 Mg Tablet, 650 MG PO TID PRN PRN for PAIN 04/11/16 Aspirin (ASPIR 81) 81 Mg Tablet.dr, 1 TAB PO DAILY, #30 TAB 5 Refills 04/11/16 Ferrous Sulfate (IRON SUPPLEMENT) 325 Mg Tablet, 1 TAB PO DAILY, #30 TAB 10 Refills 2/23/16 Fluticasone/Salmeterol (ADVAIR 250-50 DISKUS) 1 Each Disk.w.dev, 1 PUFF IH BID, #3 INHALER 3 Refills 05/06/15 Ipratropium/Albuterol Sulfate (DUONEB 0.5-3(2.5) MG/3 ML) 3 Ml Ampul.neb, 3 ML IH Q4HRS PRN for CONGESTION 05/06/15 Pravastatin Sodium (PRAVASTATIN SODIUM) 10 Mg Tablet, 1 TAB PO QHS, #30 TAB 5 Refills 09/16/14 Carvedilol (CARVEDILOL ) 6.25 Mg Tablet, 1 TAB PO BID, #180 TAB 1 Refill 09/16/14 FAITH BEAN MD Aug 20, 2018 14:08
[2018-08-20] MEDS ORDERED: PRED-220 PO (14:11)
[2018-08-20] MEDS ORDERED: MAGN400O7 PO (14:11)
[2018-08-21] MEDS ORDERED: predniSONE 10 MG TABLET PO SCH (08:00)
== END 2018-08-20 14:43 | disposition home health service (06) | DRG 291 ==
LOC: ER 08:09 → 5 NORTH 09:23 → ER 10:15
PROVIDERS: ADMIT Internal Medicine; ATTEND Internal Medicine
DX: I11.0 Hypertensive heart disease with heart failure (principal); J96.21 Acute and chronic respiratory failure with hypoxia; E43 Unspecified severe protein-calorie malnutrition; J44.1 Chronic obstructive pulmonary disease with (acute) exacerbation; J98.11 Atelectasis; I27.81 Cor pulmonale (chronic); I50.33 Acute on chronic diastolic (congestive) heart failure; D64.9 Anemia, unspecified; E03.9 Hypothyroidism, unspecified; F41.9 Anxiety disorder, unspecified; M19.90 Unspecified osteoarthritis, unspecified site; I50.82 Biventricular heart failure; Z82.49 Family history of ischemic heart disease and other diseases of the circulatory system; Z99.81 Dependence on supplemental oxygen; Z87.891 Personal history of nicotine dependence; Z86.14 Personal history of Methicillin resistant Staphylococcus aureus infection; Z88.8 Allergy status to other drugs, medicaments and biological substances; Z79.899 Other long term (current) drug therapy; Z68.31 Body mass index [BMI] 31.0-31.9, adult
CPT/HCPCS: 36415; 71045; 80048; 80076; 82962; 83540; 83550; 83690; 83880; 84443; 84484; 85025; 87641; 93005; 93306; 94640; 94760; 96374; 96375; J0456; J1644; J1815; J1940; J2920; J2930; J7050; J7620; J7626; Q0163; 97530; 99285-25; J7030

== ENCOUNTER → 2018-10-29 | Outpatient (CLI) | payer MEDICARE, OTHER ==
[2018-08-30 11:00] VITALS: BP 123/51
[~2018-10-29] MED LIST changes: +ALPR0.25 PO; +AMOX1TAB10 PO; +FURO-68 PO; +IPRA3AMP29 NEB; +LACT1CAP19 PO; +LACT1CAP6 PO; +LINA5TAB PO; -LINA5TAB4 PO; +MAGN400O7 PO; +MONT10TA49 PO; -MONT10TA9 PO; +NYST100054 PO; +OXYM30SP NS; +POTA20TA82 PO; +PRED1TAB3 PO; +TORS20TA2 PO
[2018-10-29 06:23] LABS: CALCIUM 8.5 mg/dL (8.5-10.1); CREATININE 1.2 mg/dL (0.6-1.0); GFR 43.2; POTASSIUM 3.6 mmol/L (3.5-5.1)
== END | disposition home or self-care (01) ==
LOC: SPEC 00:11
PROVIDERS: ATTEND Internal Medicine
DX: I11.0 Hypertensive heart disease with heart failure (principal); I50.33 Acute on chronic diastolic (congestive) heart failure
CPT/HCPCS: 36415; 80048

== ENCOUNTER 2018-11-03 10:47 | Emergency (ER) | payer MEDICARE, OTHER ==
[~2018-11-03] VITALS: Ht 154.9 cm; Wt 80.7 kg
[~2018-11-03 10:47] MED LIST changes: -ALPR0.25 PO; -AMOX1TAB10 PO; -IPRA3AMP29 NEB; -LACT1CAP19 PO; -LACT1CAP6 PO; -MONT10TA49 PO; +MONT10TA9 PO; -NYST100054 PO; -OXYM30SP NS; -POTA20TA82 PO; -PRED1TAB3 PO; -TORS20TA2 PO
--- NOTE | 2018-11-03 11:29 | PHYS DOC ---
Past Medical History Past Medical History: Anxiety, Bronchitis, CHF, COPD, MRSA, Other Additional Past Medical Histor: RESP FAILURE,OA Past Surgical History: Cholecystectomy Alcohol Use: None Drug Use: None Adult General Chief Complaint Chief Complaint: COUGH HPI HPI Patient is an 78 year old female with a PMH of CHF and COPD who presents with lower leg swelling and 7lb weight gain in 24 hours that was concerning to the [facility] staff. Ms. Schwartz is on continuous oxygen and is short of breath at baseline at rest and with exertion. She denies any acute worsening in her dyspnea or cough. Patient has been adherent with her medications. She denies fevers, chills, chest pain, abdominal pain, leg/calf pain. Review of Systems Review of Systems Constitutional: Denies fever or chills Eyes: Denies change in visual acuity, redness, or eye pain HENT: Denies nasal congestion or sore throat Respiratory: Reports cough and shortness of breath GI: Denies abdominal pain, nausea, vomiting, diarrhea : Denies dysuria or hematuria Integument: Denies rash or skin lesions Neurologic: Denies headache, focal weakness or sensory changes Complete systems were reviewed and found to be within normal limits, except as documented in this note. Allergies Allergies Allergies Coded Allergies Type Severity Reaction Last Updated Verified doxycycline Allergy Intermediate Rash 02/16/18 Yes I S O L A T I O N *CONTACT* Allergy Unknown 12/12/16 Yes Physical Exam Physical Exam Constitutional: Well developed, well nourished, no acute distress HENT: Normocephalic, atraumatic, bilateral external ears normal, oropharynx moist Eyes: PERRL, EOMI, conjunctiva normal, no discharge. Neck: no tenderness, supple, no JVD Cardiovascular:Heart rate regular rhythm, no murmur Lungs & Thorax: expiratory wheezes bilaterally, coarse breath sounds, nasal canula in place Abdomen: no tenderness, no distention, no guarding Skin: Warm, dry, no erythema, no rash. Back: No tenderness, no CVA tenderness. Extremities: No tenderness, 3+ pitting edema of lower extremities bilaterally Neurologic: Alert and oriented X 3, normal motor function, normal sensory function, no focal deficits noted. Psychologic: Affect normal, judgement normal, mood normal. Current Patient Data Vital Signs Vital Signs Date Time Temp Pulse Resp B/P (MAP) Pulse Ox O2 Delivery O2 Flow Rate FiO2 2/16/19 10:50 97.8 73 24 145/81 (102) 99 Nasal Cannula 97.8 Lab Values Laboratory Tests Test 11/03/18 12:10 11/03/18 12:50 White Blood Count 7.0 x10^3/uL (4.0-11.0) Red Blood Count 4.40 x10^6/uL (3.50-5.40) Hemoglobin 11.6 g/dL (12.0-15.5) L Hematocrit 37.0 % (36.0-47.0) Mean Corpuscular Volume 84 fL (79-100) Mean Corpuscular Hemoglobin 26 pg (25-35) Mean Corpuscular Hemoglobin Concent 31 g/dL (31-37) Red Cell Distribution Width 16.2 % (11.5-14.5) H Platelet Count 209 x10^3/uL (140-400) Neutrophils (%) (Auto) 83 % (31-73) H Lymphocytes (%) (Auto) 14 % (24-48) L Monocytes (%) (Auto) 3 % (0-9) Eosinophils (%) (Auto) 0 % (0-3) Basophils (%) (Auto) 1 % (0-3) Neutrophils # (Auto) 5.8 x10^3uL (1.8-7.7) Lymphocytes # (Auto) 1.0 x10^3/uL (1.0-4.8) Monocytes # (Auto) 0.2 x10^3/uL (0.0-1.1) Eosinophils # (Auto) 0.0 x10^3/uL (0.0-0.7) Basophils # (Auto) 0.0 x10^3/uL (0.0-0.2) Sodium Level 141 mmol/L (136-145) Potassium Level 4.4 mmol/L (3.5-5.1) Chloride Level 102 mmol/L (98-107) Carbon Dioxide Level 32 mmol/L (21-32) Anion Gap 7 (6-14) Blood Urea Nitrogen 66 mg/dL (7-20) H Creatinine 1.5 mg/dL (0.6-1.0) H Estimated GFR (Cockcroft-Gault) 33.4 BUN/Creatinine Ratio 44 (6-20) H Glucose Level 173 mg/dL (70-99) H Calcium Level 8.7 mg/dL (8.5-10.1) Total Bilirubin 0.4 mg/dL (0.2-1.0) Aspartate Amino Transferase (AST) 17 U/L (15-37) Alanine Aminotransferase (ALT) 18 U/L (14-59) Alkaline Phosphatase 86 U/L (46-116) Creatine Kinase 28 U/L (26-192) Creatine Kinase MB (Mass) < 0.5 ng/mL (0.0-3.6) Creatine Kinase MB Relative Index % (0-4) Troponin I Quantitative < 0.017 ng/mL (0.000-0.055) ON-Jzu-D-Type Natriuretic Peptide 295 pg/mL (0-449) Total Protein 7.4 g/dL (6.4-8.2) Albumin 2.7 g/dL (3.4-5.0) L Albumin/Globulin Ratio 0.6 (1.0-1.7) L Urine Collection Type Unknown Urine Color Yellow Urine Clarity Cloudy Urine pH 7.0 Urine Specific [place] 1.010 Urine Protein Negative mg/dL (NEG-TRACE) Urine Glucose (UA) Negative mg/dL (NEG) Urine Ketones (Stick) Negative mg/dL (NEG) Urine Blood Negative (NEG) Urine Nitrite Negative (NEG) Urine Bilirubin Negative (NEG) Urine Urobilinogen Dipstick 0.2 mg/dL (0.2 mg/dL) Urine Leukocyte Esterase Trace (NEG) Urine RBC 1-2 /HPF (0-2) Urine WBC 0 /HPF (0-4) Urine Squamous Epithelial Cells Few /LPF Urine Bacteria 0 /HPF (0-FEW) Laboratory Tests 11/03/18 12:10 Laboratory Tests 11/03/18 12:10 EKG EKG @12:17 Sinus rhythm with baseline artifact HR of 72 bpm QRS: 78 ms Qt/QTc: 386/[address] elevation Radiology/Procedures Radiology/Procedures PROCEDURE: CHEST PA & LATERAL Chest, PA and Lateral: Technique: PA and lateral views of the chest were obtained. History: Cough, shortness of breath, fluid retention. Comparison: 10/29/2018. Findings: Low lung volumes accentuates heart size and pulmonary vascularity. Mild prominent bilateral interstitial lung markings. Mild prominent interstitial lung markings and prominent appearing pleural thickening in the right lung base similar to prior exam. IMPRESSION: Unchanged exam Electronically signed by: Leno Amaro MD (11/03/2018 11:35 AM) [facility] DICTATED and SIGNED BY: LENO AMARO MD DATE: 11/03/18 1133 PROCEDURE: VENOUS LOWER EXT BILATERAL Examination: Bilateral Lower Extremity Venous Doppler Ultrasound History: Bilateral lower extremity edema Comparison: None Procedure: Grimes scale, color flow 2D and spectal waveform analysis images are obtained with and without compression in the area of the common femoral vein, superficial femoral vein - femoral vein junction, main femoral vein (superficial femoral vein) and popliteal vein. Veins of the proximal calf are also imaged. Findings: There is normal duplex flow, color flow and compressibility of all visualized vein segments. No evidence of deep venous thrombus is present. The left peroneal veins could not be identified. Impression: No evidence of DVT in the visualized bilateral lower extremity venous system. Electronically signed by: Leno Amaro MD (11/03/2018 11:56 AM) [facility] DICTATED and SIGNED BY: LENO AMARO MD DATE: 11/03/18 1154 Course & Med Decision Making Course & Med Decision Making Pertinent Labs and Imaging studies reviewed. (See chart for details) [] Dragon Disclaimer Dragon Disclaimer This electronic medical record was generated, in whole or in part, using a voice recognition dictation system. Departure Departure Impression: Primary Impression: Peripheral edema Disposition: 01 HOME, SELF-CARE (back to ECF) Condition: STABLE Referrals: AMISHA HARDY MD (PCP) Patient Instructions: Peripheral Edema HERNAN SILVESTRE DO Nov 03, 2018 11:29
--- NOTE | 2018-11-03 11:38 | RAD ---
Chest, PA and Lateral: Technique: PA and lateral views of the chest were obtained. History: Cough, shortness of breath, fluid retention. Comparison: 10/29/2018. Findings: Low lung volumes accentuates heart size and pulmonary vascularity. Mild prominent bilateral interstitial lung markings. Mild prominent interstitial lung markings and prominent appearing pleural thickening in the right lung base similar to prior exam. IMPRESSION: Unchanged exam Electronically signed by: Leno Amaro MD (11/03/2018 11:35 AM) [facility]
--- NOTE | 2018-11-03 11:59 | RAD ---
Examination: Bilateral Lower Extremity Venous Doppler Ultrasound History: Bilateral lower extremity edema Comparison: None Procedure: Grimes scale, color flow 2D and spectal waveform analysis images are obtained with and without compression in the area of the common femoral vein, superficial femoral vein - femoral vein junction, main femoral vein (superficial femoral vein) and popliteal vein. Veins of the proximal calf are also imaged. Findings: There is normal duplex flow, color flow and compressibility of all visualized vein segments. No evidence of deep venous thrombus is present. The left peroneal veins could not be identified. Impression: No evidence of DVT in the visualized bilateral lower extremity venous system. Electronically signed by: Leno Amaro MD (11/03/2018 11:56 AM) [facility]
[2018-11-03 12:29] LABS: BASO % 1 % (0-3); EOS % 0 % (0-3); HEMOGLOBIN 11.6 g/dL (12.0-15.5); LYMPH % 14 % (24-48); MEAN CORPUSCULAR HEMOGLOBIN 26 pg (25-35); MEAN CORPUSCULAR HGB CONC 31 g/dL (31-37); MEAN CORPUSCULAR VOLUME 84 fL (79-100); MONO # 0.2 x10^3/uL (0.0-1.1); MONO % 3 % (0-9); NEUT # 5.8 x10^3uL (1.8-7.7); NEUT % 83 % (31-73); PLATELET COUNT 209 x10^3/uL (140-400); RED CELL DISTRIBUTION WIDTH 16.2 % (11.5-14.5)
[2018-11-03 12:31] LABS: CALCIUM 8.7 mg/dL (8.5-10.1); CREATININE 1.5 mg/dL (0.6-1.0); GFR 33.4; POTASSIUM 4.4 mmol/L (3.5-5.1)
[2018-11-03 12:37] LABS: ALBUMIN 2.7 g/dL (3.4-5.0); ALBUMIN/GLOBULIN RATIO 0.6 (1.0-1.7); TOTAL BILIRUBIN 0.4 mg/dL (0.2-1.0); TOTAL PROTEIN 7.4 g/dL (6.4-8.2)
[2018-11-03 12:58] LABS: CREATINE KINASE 28 U/L (26-192)
[2018-11-03 12:58] LABS: BILIRUBIN,URINE NEGATIVE (NEG); CLARITY,URINE CLOUDY; COLOR,URINE YELLOW; NITRITE,URINE NEGATIVE (NEG); PROTEIN,URINE NEGATIVE (NEG-TRACE); UROBILINOGEN,URINE 0.2 mg/dL (0.2 mg/dL)
[2018-11-03 13:11] LABS: BACTERIA,URINE 0 /HPF (0-FEW); SQUAMOUS EPITHELIAL CELL,UR FEW /LPF; WBC,URINE 0 /HPF (0-4)
[2018-11-03 14:50] VITALS: BP 167/83
--- NOTE | 2018-11-03 17:55 | EKG ---
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
== END 2018-11-03 16:10 | disposition home or self-care (01) ==
LOC: ER 12:08
DX: R60.0 Localized edema (principal); J44.9 Chronic obstructive pulmonary disease, unspecified; Z88.1 Allergy status to other antibiotic agents; Z91.041 Radiographic dye allergy status
CPT/HCPCS: 36415; 71046; 80053; 81001; 82553; 83880; 84484; 85025; 87086; 93005; 93970; 99284-25

== ENCOUNTER 2018-11-21 17:56 | Inpatient (IN) | payer MEDICARE, OTHER ==
[~2018-11-21] VITALS: Ht 154.9 cm; Wt 86.2 kg
[2018-11-21] MEDS ORDERED: IPRATRPIUM/ALBUTEROL 0.5/2.5MG 3 ML NEBU. ONE (18:13)
--- NOTE | 2018-11-21 18:28 | PHYS DOC ---
Past Medical History Past Medical History: Anxiety, Bronchitis, CHF, COPD, MRSA, Other Additional Past Medical Histor: RESP FAILURE,OA Past Surgical History: Cholecystectomy Alcohol Use: None Drug Use: None Adult General Chief Complaint Chief Complaint: DYSPNEA/RESPIRATOY DISTRESS HPI HPI Patient is a 78 year old female who presents to the ED via EMS with chest pain and shortness of breath. 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 She lives in a senior care and is on 2 L of oxygen at baseline. The chest pain is located retrosternally and described as a pressure-like 6/10 pain which does not radiate. Nothing seems to make her symptoms better or worse. She received 2 breathing treatments BUSINESS EDUCATION PROFESSOR which did not help. O2 sat 85 on arrival. Patient had a baby aspirin given this morning with her meds. She did not receive aspirin en route. Review of Systems Review of Systems Constitutional: Denies fever or chills [] Eyes: Denies change in visual acuity, redness, or eye pain [] HENT: Denies nasal congestion or sore throat [] Respiratory: Admits cough and shortness of breath. Cardiovascular: Admits chest pain. Denies palpitations. GI: Denies abdominal pain or diarrhea [] : Denies dysuria or hematuria [] Musculoskeletal: Denies back pain or joint pain [] Integument: Denies rash or skin lesions [] Neurologic: Denies headache, focal weakness or sensory changes [] Complete systems were reviewed and found to be within normal limits, except as documented in this note. Current Medications Current Medications Current Medications Medications (Trade) Dose Ordered Sig/Eva Start Time Stop Time Status Last Admin Dose Admin Albuterol/ Ipratropium (Duoneb) 3 ml STK-MED ONCE 11/21/18 18:13 11/21/18 18:14 DC Aspirin (Wayne Aspirin) 325 mg 1X ONCE 11/21/18 20:00 11/21/18 20:01 DC 11/21/18 19:55 325 MG Allergies Allergies Allergies Coded Allergies Type Severity Reaction Last Updated Verified doxycycline Allergy Intermediate Rash 02/16/18 Yes I S O L A T I O N *CONTACT* Allergy Unknown 12/12/16 Yes Physical Exam Physical Exam Constitutional: Well developed, well nourished, no acute distress, non-toxic appearance. [] HENT: Normocephalic, atraumatic, nose normal. [] Eyes: EOMI, conjunctiva normal, no discharge. [] Neck: Normal range of motion, no tenderness, supple, no stridor. [] Cardiovascular: Heart rate regular rhythm, no murmur [] Lungs & Thorax: Bilateral rhonchi upper lobes. No wheezes. Abdomen: Soft, no tenderness Skin: Warm, dry, no erythema, no rash. [] Back: No tenderness, no CVA tenderness. [] Extremities: No tenderness, ROM intact, no edema. [] Neurologic: Alert and oriented, normal motor function, normal sensory function, no focal deficits noted. [] Psychologic: Affect normal, judgement normal, mood normal. [] Current Patient Data Vital Signs Vital Signs Date Time Temp Pulse Resp B/P (MAP) Pulse Ox O2 Delivery O2 Flow Rate FiO2 11/21/18 21:00 86 129/56 (80) 93 Nasal Cannula 3.0 11/21/18 18:16 98.3 40 98.3 Lab Values Laboratory Tests Test 11/21/18 18:15 11/21/18 19:40 White Blood Count 9.4 x10^3/uL (4.0-11.0) Red Blood Count 4.76 x10^6/uL (3.50-5.40) Hemoglobin 13.0 g/dL (12.0-15.5) Hematocrit 40.8 % (36.0-47.0) Mean Corpuscular Volume 86 fL (79-100) Mean Corpuscular Hemoglobin 27 pg (25-35) Mean Corpuscular Hemoglobin Concent 32 g/dL (31-37) Red Cell Distribution Width 15.8 % (11.5-14.5) H Platelet Count 218 x10^3/uL (140-400) Neutrophils (%) (Auto) 84 % (31-73) H Lymphocytes (%) (Auto) 8 % (24-48) L Monocytes (%) (Auto) 5 % (0-9) Eosinophils (%) (Auto) 2 % (0-3) Basophils (%) (Auto) 1 % (0-3) Neutrophils # (Auto) 7.9 x10^3uL (1.8-7.7) H Lymphocytes # (Auto) 0.8 x10^3/uL (1.0-4.8) L Monocytes # (Auto) 0.4 x10^3/uL (0.0-1.1) Eosinophils # (Auto) 0.2 x10^3/uL (0.0-0.7) Basophils # (Auto) 0.1 x10^3/uL (0.0-0.2) Sodium Level 142 mmol/L (136-145) Potassium Level 4.5 mmol/L (3.5-5.1) Chloride Level 101 mmol/L (98-107) Carbon Dioxide Level 35 mmol/L (21-32) H Anion Gap 6 (6-14) Blood Urea Nitrogen 40 mg/dL (7-20) H Creatinine 1.3 mg/dL (0.6-1.0) H Estimated GFR (Cockcroft-Gault) 39.4 BUN/Creatinine Ratio 31 (6-20) H Glucose Level 213 mg/dL (70-99) H Calcium Level 8.4 mg/dL (8.5-10.1) L Magnesium Level 2.0 mg/dL (1.8-2.4) Total Bilirubin 0.6 mg/dL (0.2-1.0) Aspartate Amino Transferase (AST) 26 U/L (15-37) Alanine Aminotransferase (ALT) 19 U/L (14-59) Alkaline Phosphatase 89 U/L (46-116) Creatine Kinase 47 U/L (26-192) Creatine Kinase MB (Mass) < 0.5 ng/mL (0.0-3.6) Creatine Kinase MB Relative Index % (0-4) Troponin I Quantitative < 0.017 ng/mL (0.000-0.055) PC-Vma-T-Type Natriuretic Peptide 220 pg/mL (0-449) Total Protein 7.0 g/dL (6.4-8.2) Albumin 2.5 g/dL (3.4-5.0) L Albumin/Globulin Ratio 0.6 (1.0-1.7) L Lipase 163 U/L (73-393) Prothrombin Time 13.6 SEC (11.7-14.0) Prothrombin Time INR 1.1 (0.8-1.1) D-Dimer (Sangeetha) 5.95 ug/mlFEU (0.00-0.50) H Laboratory Tests 11/21/18 18:15 Laboratory Tests 11/21/18 18:15 EKG EKG Taken at 1808 on 11/21/2018. Sinus rhythm at 88 bpm. Occasional PVCs. No signs of ST elevation, baseline artifact Radiology/Procedures Radiology/Procedures PROCEDURE: CHEST AP ONLY CHEST AP ONLY History: Short of breath, COPD Comparison: 11/03/2018 Findings: Single view of the chest is submitted. There is questionable slightly linear appearing opacity left lung base. There is again right base opacity and blunting of the right costophrenic sulcus. There is suspected emphysema. Heart size is enlarged, unchanged. There is tortuous thoracic aorta. Impression: 1. There is possible somewhat increased left base atelectasis, otherwise radiographic findings similar. There is emphysema. There is chronic blunting of the right costophrenic sulcus. Electronically signed by: Lars Jin MD (11/21/2018 11:07 PM) [facility] Course & Med Decision Making Course & Med Decision Making Pertinent Labs and Imaging studies reviewed. (See chart for details) Elderly patient with pmh of COPD presents with report of chest pain. Found to be hypoxic on baseline supplemental O2. Duonebs provided by EMS with interval improvement. EKG stable. Labs obtained and posted to chart. Troponin WNL. D- dimer elevated. BUN/Creat also elevated at baseline. Unable to obtain CTA chest. VQ pending. Empiric Lovenox therefore initiated. Patient requiring admission for further evaluation and treatment. Discussed case with Dr. Munguia (hospitalist) who is in agreement with admit. Discussed findings and plan with patient, who acknowledges understanding and agreement. Dragon Disclaimer Dragon Disclaimer This electronic medical record was generated, in whole or in part, using a voice recognition dictation system. Departure Departure Impression: Primary Impression: Dyspnea Additional Impressions: Hypoxia Chest pain Elevated d-dimer Disposition: ADMITTED INPATIENT Admitting Physician: Other (Riffel) Condition: GUARDED Referrals: AMISHA HARDY MD (PCP) Scripts Lactobacillus Rhamnosus Gg (CULTURELLE) 1 Each Cap.sprink 1 CAP PO BID for supplement for 30 Days, #60 CAP Prov: FAITH BEAN MD 11/29/18 Critical Care Time Critical care time was 30 minutes which includes time at bedside, spent in discussion of patient's care with specialists and/or family members, with interpretation of laboratory and/or radiological studies and is exclusive of procedures. Problem Qualifiers Primary Impression: Dyspnea Dyspnea type: unspecified Qualified Codes: R06.00 - Dyspnea, unspecified Additional Impressions: Chest pain Chest pain type: unspecified Qualified Codes: R07.9 - Chest pain, unspecified HERNAN SILVESTRE DO Nov 21, 2018 18:28
[2018-11-21 18:42] LABS: BASO # 0.1 x10^3/uL (0.0-0.2); BASO % 1 % (0-3); EOS # 0.2 x10^3/uL (0.0-0.7); EOS % 2 % (0-3); HEMATOCRIT 40.8 % (36.0-47.0); LYMPH # 0.8 x10^3/uL (1.0-4.8); LYMPH % 8 % (24-48); MEAN CORPUSCULAR HEMOGLOBIN 27 pg (25-35); MEAN CORPUSCULAR HGB CONC 32 g/dL (31-37); MEAN CORPUSCULAR VOLUME 86 fL (79-100); MONO # 0.4 x10^3/uL (0.0-1.1); MONO % 5 % (0-9); NEUT # 7.9 x10^3uL (1.8-7.7); NEUT % 84 % (31-73); PLATELET COUNT 218 x10^3/uL (140-400); RED BLOOD COUNT 4.76 x10^6/uL (3.50-5.40); RED CELL DISTRIBUTION WIDTH 15.8 % (11.5-14.5); WHITE BLOOD COUNT 9.4 x10^3/uL (4.0-11.0)
[2018-11-21 18:59] LABS: CALCIUM 8.4 mg/dL (8.5-10.1); CREATININE 1.3 mg/dL (0.6-1.0); GFR 39.4; POTASSIUM 4.5 mmol/L (3.5-5.1)
[2018-11-21 19:10] LABS: ALBUMIN 2.5 g/dL (3.4-5.0); ALBUMIN/GLOBULIN RATIO 0.6 (1.0-1.7); TOTAL BILIRUBIN 0.6 mg/dL (0.2-1.0)
[2018-11-21 19:21] LABS: CREATINE KINASE 47 U/L (26-192)
[2018-11-21 19:54] LABS: PROTHROMBIN TIME PATIENT 13.6 SEC (11.7-14.0)
[2018-11-21] MEDS ORDERED: ASPIRIN 325 MG TABLET PO ONE (20:00)
--- NOTE | 2018-11-21 21:10 | PDOC1 ---
History and Physical Date of Admission Date of Admission DATE: 11/21/18 TIME: 21:09 Identification/Chief Complaint Chief Complaint Shortness of breath Source Source: Chart review, Patient History of Present Illness History of Present Illness 78-year-old female w/PMHx CHF and ILD/COPD with multiple admissions to the hospital for the same, the most recent 2 months ago who returns from SNF with worsening shortness of breath with cough. 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 The chest pain is located retrosternally and described as a pressure-like 6/10 pain which does not radiate. Nothing seems to make her symptoms better or worse. She received 2 breathing treatments AIR EXPORT LOGISTICS MANAGER which did not help. O2 sat 85 on arrival even on her 2L. Patient had a baby aspirin given this morning with her meds. At SNF normally on 2L of NCO2, but has been up to 4L on a prior hospital stay. RR mildly increased on 4 L by nasal cannula, no leukocytosis, HR normal, afebrile. EKG obtained in ED shows a regular rhythm with probable p waves before every qrs likely sinus though variable baseline present with a regular rate. ST segments are congruent. Chest x-ray - bilateral pleural effusions are apparent to me. She is very rotated on image making this a difficult read for me.. Blood work obtained which shows mild anemia. ProBNP is not elevated. Troponin negative. D Dimer highly elevated. Given IV corticosteroids in ED and lasix. D/w ED physician to anticoagulate while awaiting CTPA/VQ scan. Past Medical History Cardiovascular: HTN Pulmonary: COPD CENTRAL NERVOUS SYSTEM: Periperal neuropathy GI: No pertinent hx Heme/Onc: Anemia NOS Hepatobiliary: No pertinent hx Psych: No pertinent hx Musculoskeletal: Osteoarthritis Rheumatologic: No pertinent hx Infectious disease: No pertinent hx Renal/: No pertinent hx Past Surgical History Past Surgical History: Cholecystectomy Family History Family History: Coronary Artery Disease Family History: Parent Social History Smoke: Quit ALCOHOL: none Drugs: None Current Medications Current Medications Current Medications Albuterol/ Ipratropium (Duoneb) 3 ml STK-MED ONCE .ROUTE ; Start 11/21/18 at 18: 13; Stop 11/21/18 at 18:14; Status DC Aspirin (Wayne Aspirin) 325 mg 1X ONCE PO Last administered on 11/21/18at 19:55 ; Start 11/21/18 at 20:00; Stop 11/21/18 at 20:01; Status DC Ondansetron HCl (Zofran) 4 mg PRN Q8HRS PRN IV NAUSEA/VOMITING; Start 11/21/18 at 21:15; Stop 11/22/18 at 21:14 Albuterol/ Ipratropium (Duoneb) 3 ml RTQID NEB ; Start 11/22/18 at 08:00; Stop at 07:59 Insulin Human Lispro (HumaLOG) 0-5 UNITS TIDWMEALS SQ ; Start 11/22/18 at 08:00; Status UNV Dextrose (Dextrose 50%-Water Syringe) 12.5 gm PRN Q15MIN PRN IV SEE COMMENTS; Start 11/21/18 at 21:15 Active Scripts Active Lasix (Furosemide) 40 Mg Tablet 1 Tab PO DAILY Prednisone (Prednisone) 10 Mg Tablet 10 Mg PO UD Take 5 tablets by mouth daily for 2 days, then take 4 tablets by mouth daily for 2 days, then take 3 tablets by mouth daily for 2 days, then take 2 tablets by mouth daily for 2 days, then take 1 tablets by mouth daily for 2 days, then stop. Milk Of Magnesia (Magnesium Hydroxide) 400 Mg/5 Ml Oral.susp 2,400 Mg PO PRN Q12HR PRN 10 Days Reported Tylenol (Acetaminophen) 325 Mg Tablet 650 Mg PO TID PRN PRN Aspir 81 (Aspirin) 81 Mg Tablet.dr 1 Tab PO DAILY Iron Supplement (Ferrous Sulfate) 325 Mg Tablet 1 Tab PO DAILY Advair 250-50 Diskus (Fluticasone/Salmeterol) 1 Each Disk.w.dev 1 Puff IH BID Duoneb 0.5-3(2.5) Mg/3 Ml (Albuterol/Ipratropium) 3 Ml Ampul.neb 3 Ml IH Q4HRS PRN Pravastatin Sodium 10 Mg Tablet 1 Tab PO QHS Carvedilol (Carvedilol) 6.25 Mg Tablet 1 Tab PO BID Allergies Allergies: Coded Allergies: doxycycline (Verified Allergy, Intermediate, Rash, 02/16/18) rash this admit suspected from doxycycline I S O L A T I O N *CONTACT* (Verified Allergy, Unknown, 12/12/16) +MRSA nasal screen 12/09/16 ROS General: YES: Fatigue, Malaise; No: Chills, Night Sweats, Appetite, Other PSYCHOLOGICAL ROS: No: Anxiety, Behavioral Disorder, Concentration difficultie , Decreased libido, Depression, Disorientation, Hallucinations, Hostility, Irritablity, Memory difficulties, Mood Swings, Obsessive thoughts, Physical abuse, Sexual abuse, Sleep disturbances, Suicidal ideation, Other Eyes: No Blurry vision, No Decreased vision, No Double vision, No Dry eyes, No Excessive tearing, No Eye Pain, No Itchy Eyes, No Loss of vision, No Photophobia , No Scotomata, No Uses contacts, No Uses glasses, No Other HEENT: No: Heacaches, Visual Changes, Hearing change, Nasal congestion, Nasal discharge, Oral lesions, Sinus pain, Sore Throat, Epistaxis, Sneezing, Snoring, Tinnitus, Vertigo, Vocal changes, Other ALLERGY AND IMMUNOLOGY: No: Hives, Insect Bite Sensitivity, Itchy/Watery Eyes, Nasal Congestion, Post Nasal Drip, Seasonal Allergies, Other Hematological and Lymphatic: No: Bleeding Problems, Blood Clots, Blood Transfusions, Brusing, Night Sweats, Pallor, Swollen Lymph Nodes, Other ENDOCRINE: No: Breast Changes, Galactorrhea, Hair Pattern Changes, Hot Flashes , Malaise/lethargy, Mood Swings, Palpitations, Polydipsia/polyuria, Skin Changes , Temperature Intolerance, Unexpected Weight Changes, Other Breast: No New/Changing Breast Lumps, No Nipple changes, No Nipple discharge, No Other Respiratory: YES: Cough, Pleuritic Pain, Shortness of breath, SOB with excertion, Tachypnea, Wheezing; No: Hemoptysis, Orthopnea, Sputum Changes, Stridor, Other Cardiovascular: yes Chest Pain; No Palpitations, No Orthopnea, No Paroxysmal Noc. Dyspnea, No Edema, No Lt Headedness, No Other Gastrointestinal: No Nausea, No Vomiting, No Abdominal Pain, No Diarrhea, No Constipation, No Melena, No Hematochezia, No Other Genitourinary: No Dysuria, No Frequency, No Incontinence, No Hematuria, No Retention, No Discharge, No Urgency, No Pain, No Flank Pain, No Other, No , No , No , No , No , No , No Musculoskeletal: No Gait Disturbance, No Joint Pain, No Joint Stiffness, No Joint Swelling, No Muscle Pain, No Muscular Weakness, No Pain In:, No Swelling In:, No Other Neurological: No Behavorial Changes, No Bowel/Bladder ControlChng, No Confusion , No Dizziness, No Gait Disturbance, No Headaches, No Impaired Coord/balance, No Memory Loss, No Numbness/Tingling, No Seizures, No Speech Problems, No Tremors, No Visual Changes, No Weakness, No Other Skin: No Dry Skin, No Eczema, No Hair Changes, No Lumps, No Mole Changes, No Mottling, No Nail Changes, No Pruritus, No Rash, No Skin Lesion Changes, No Other, No Acne Physical Exam General: Alert, Cooperative, No acute distress HEENT: Atraumatic, PERRLA, EOMI, Mucous membr. moist/pink Lungs: Other (Diffuse wheezes and rales bilaterally) Heart: S1S2, RRR, no gallops, no murmurs Abdomen: Normal bowel sounds, Soft, No tenderness, No hepatosplenomegaly, No masses Rectal Exam: not examined Extremities: No clubbing, No cyanosis, No edema, Normal pulses, No tenderness/ swelling Skin: No rashes, No breakdown, No significant lesion Neuro: Normal gait, Normal speech, Strength at 5/5 X4 ext, Normal tone, Sensation intact, Cranial nerves 3-12 NL, Reflexes 2+ Psych/Mental Status: Mental status NL, Mood NL Vitals Vitals Vital Signs Date Time Temp Pulse Resp B/P (MAP) Pulse Ox O2 Delivery O2 Flow Rate FiO2 11/21/18 18:21 Nasal Cannula 3.0 11/21/18 18:16 98.3 86 40 145/65 (91) 84 98.3 Labs Labs Laboratory Tests Test 11/21/18 18:15 11/21/18 19:40 White Blood Count 9.4 x10^3/uL (4.0-11.0) Red Blood Count 4.76 x10^6/uL (3.50-5.40) Hemoglobin 13.0 g/dL (12.0-15.5) Hematocrit 40.8 % (36.0-47.0) Mean Corpuscular Volume 86 fL (79-100) Mean Corpuscular Hemoglobin 27 pg (25-35) Mean Corpuscular Hemoglobin Concent 32 g/dL (31-37) Red Cell Distribution Width 15.8 % (11.5-14.5) Platelet Count 218 x10^3/uL (140-400) Neutrophils (%) (Auto) 84 % (31-73) Lymphocytes (%) (Auto) 8 % (24-48) Monocytes (%) (Auto) 5 % (0-9) Eosinophils (%) (Auto) 2 % (0-3) Basophils (%) (Auto) 1 % (0-3) Neutrophils # (Auto) 7.9 x10^3uL (1.8-7.7) Lymphocytes # (Auto) 0.8 x10^3/uL (1.0-4.8) Monocytes # (Auto) 0.4 x10^3/uL (0.0-1.1) Eosinophils # (Auto) 0.2 x10^3/uL (0.0-0.7) Basophils # (Auto) 0.1 x10^3/uL (0.0-0.2) Sodium Level 142 mmol/L (136-145) Potassium Level 4.5 mmol/L (3.5-5.1) Chloride Level 101 mmol/L (98-107) Carbon Dioxide Level 35 mmol/L (21-32) Anion Gap 6 (6-14) Blood Urea Nitrogen 40 mg/dL (7-20) Creatinine 1.3 mg/dL (0.6-1.0) Estimated GFR (Cockcroft-Gault) 39.4 BUN/Creatinine Ratio 31 (6-20) Glucose Level 213 mg/dL (70-99) Calcium Level 8.4 mg/dL (8.5-10.1) Magnesium Level 2.0 mg/dL (1.8-2.4) Total Bilirubin 0.6 mg/dL (0.2-1.0) Aspartate Amino Transf (AST/SGOT) 26 U/L (15-37) Alanine Aminotransferase (ALT/SGPT) 19 U/L (14-59) Alkaline Phosphatase 89 U/L (46-116) Creatine Kinase 47 U/L (26-192) Creatine Kinase MB (Mass) < 0.5 ng/mL (0.0-3.6) Creatine Kinase MB Relative Index % (0-4) Troponin I Quantitative < 0.017 ng/mL (0.000-0.055) VM-Cre-O-Type Natriuretic Peptide 220 pg/mL (0-449) Total Protein 7.0 g/dL (6.4-8.2) Albumin 2.5 g/dL (3.4-5.0) Albumin/Globulin Ratio 0.6 (1.0-1.7) Lipase 163 U/L (73-393) Prothrombin Time 13.6 SEC (11.7-14.0) Prothromb Time International Ratio 1.1 (0.8-1.1) D-Dimer (Sangeetha) ug/mlFEU (0.00-0.50) Laboratory Tests Test 11/21/18 18:15 11/21/18 19:40 White Blood Count 9.4 x10^3/uL (4.0-11.0) Red Blood Count 4.76 x10^6/uL (3.50-5.40) Hemoglobin 13.0 g/dL (12.0-15.5) Hematocrit 40.8 % (36.0-47.0) Mean Corpuscular Volume 86 fL (79-100) Mean Corpuscular Hemoglobin 27 pg (25-35) Mean Corpuscular Hemoglobin Concent 32 g/dL (31-37) Red Cell Distribution Width 15.8 % (11.5-14.5) Platelet Count 218 x10^3/uL (140-400) Neutrophils (%) (Auto) 84 % (31-73) Lymphocytes (%) (Auto) 8 % (24-48) Monocytes (%) (Auto) 5 % (0-9) Eosinophils (%) (Auto) 2 % (0-3) Basophils (%) (Auto) 1 % (0-3) Neutrophils # (Auto) 7.9 x10^3uL (1.8-7.7) Lymphocytes # (Auto) 0.8 x10^3/uL (1.0-4.8) Monocytes # (Auto) 0.4 x10^3/uL (0.0-1.1) Eosinophils # (Auto) 0.2 x10^3/uL (0.0-0.7) Basophils # (Auto) 0.1 x10^3/uL (0.0-0.2) Sodium Level 142 mmol/L (136-145) Potassium Level 4.5 mmol/L (3.5-5.1) Chloride Level 101 mmol/L (98-107) Carbon Dioxide Level 35 mmol/L (21-32) Anion Gap 6 (6-14) Blood Urea Nitrogen 40 mg/dL (7-20) Creatinine 1.3 mg/dL (0.6-1.0) Estimated GFR (Cockcroft-Gault) 39.4 BUN/Creatinine Ratio 31 (6-20) Glucose Level 213 mg/dL (70-99) Calcium Level 8.4 mg/dL (8.5-10.1) Magnesium Level 2.0 mg/dL (1.8-2.4) Total Bilirubin 0.6 mg/dL (0.2-1.0) Aspartate Amino Transf (AST/SGOT) 26 U/L (15-37) Alanine Aminotransferase (ALT/SGPT) 19 U/L (14-59) Alkaline Phosphatase 89 U/L (46-116) Creatine Kinase 47 U/L (26-192) Creatine Kinase MB (Mass) < 0.5 ng/mL (0.0-3.6) Creatine Kinase MB Relative Index % (0-4) Troponin I Quantitative < 0.017 ng/mL (0.000-0.055) PU-Xgy-U-Type Natriuretic Peptide 220 pg/mL (0-449) Total Protein 7.0 g/dL (6.4-8.2) Albumin 2.5 g/dL (3.4-5.0) Albumin/Globulin Ratio 0.6 (1.0-1.7) Lipase 163 U/L (73-393) Prothrombin Time 13.6 SEC (11.7-14.0) Prothromb Time International Ratio 1.1 (0.8-1.1) D-Dimer (Sangeetha) ug/mlFEU (0.00-0.50) Images Images CXR - no formal read - bilateral pleural effusions, R>L. Very rotated VTE Prophylaxis Ordered VTE Prophylaxis Devices: Yes VTE Pharmacological Prophylaxi: Yes Assessment/Plan Assessment/Plan A/P: Sykrc-li-zahbexi respiratory failure related to acute exacerbation of chronic obstructive pulmonary disease and probably qriyt-mo-midryps cor pulmonale. She does have increasing ankle edema and shortness of breath. Nebs, pulmicort. consult pulm Elevated D dimer - will get CTPA, start lovenox likely Abnormal chest x-ray, but appears to be unchanged from previous films. She has parenchymal scarring bilaterally along with left lower lobe atelectasis - Clinically, less likely pneumonia, CHF with COPD is likely [id number]-[id number]-[id number] protein-calorie malnutrition - has been eating every meal at SNF Hypothyroidism with mildly increased TSH level > 6 previously, will monitor ?Diastolic CHF - improved previously with some gentle diuresis, will cont this though her BNP leads me to believe if she is having CHF it is mild or non- existent at this time. FEN - Cardiac diet PPX - lovenox FULL CODE Inpatient for hypoxic respiratory failure likely multifactorial, will need at least 2 midnights in house KAYE LANDA MD Nov 21, 2018 21:10
[2018-11-21] MEDS ORDERED: ONDANSETRON PF 4 MG/2 ML VIAL. IV PRN (21:15)
[2018-11-21] MEDS ORDERED: DEXTROSE 50% 25 GM / 50ML DISP.SYRIN. IV PRN (21:15)
[2018-11-21 21:48] LABS: D-DIMER 5.95 ug/mlFEU (0.00-0.50)
[2018-11-21] MEDS ORDERED: IPRATRPIUM/ALBUTEROL 0.5/2.5MG 3 ML NEBU. NEB ONE (22:00)
--- NOTE | 2018-11-21 23:10 | RAD ---
CHEST AP ONLY History: Short of breath, COPD Comparison: 11/03/2018 Findings: Single view of the chest is submitted. There is questionable slightly linear appearing opacity left lung base. There is again right base opacity and blunting of the right costophrenic sulcus. There is suspected emphysema. Heart size is enlarged, unchanged. There is tortuous thoracic aorta. Impression: 1. There is possible somewhat increased left base atelectasis, otherwise radiographic findings similar. There is emphysema. There is chronic blunting of the right costophrenic sulcus. Electronically signed by: Lars Jin MD (11/21/2018 11:07 PM) [facility]
[2018-11-21] MEDS: BUDESONIDE 0.5 MG/2 ML NEBU. NEB SCH (23:45)
[2018-11-22] VITALS (7 sets, daily range): BP systolic 76–176; BP diastolic 47–88
[2018-11-22] MEDS ORDERED: LABETALOL 20 MG/4 ML DISP.SYRIN. IVP PRN ×2
--- NOTE | 2018-11-22 | NUR ---
Pt was admitted to the unit from ER with c/o chest pain and hypoxia. Upon arrival, RT initiated a Bipap r/t respiratory distress the pt developed in ER prior to transfer to the floor. Initial settings 16/6, rate 16, FiO2 40%, pt was restless and agitated about bipap, Dr. Munguia was paged and ativan 0.5 IV prn q 6hrs was ordered and administered. Pt feel asleep but respirations maintained in the 40's despite being asleep. ABG was ordered per RT request and pts CO2 was 72.1. Bipap settings changed to 20/8, rate of 20, FiO2 45%, morphine 2mg IV prn q 4hrs ordered and administered for air hunger and respiratory rate control. Pts HR sustaining in 120-130 (ST), bed alarm activated and H/P, med rec completed from [facility] records. Meds restarted per Dr. Munguia, will continue to monitor pt for status changes, bed in low/locked position, call light within reach.
[2018-11-22] MEDS ORDERED: MAGNESIUM HYDROXIDE 2,400 MG/30 ML ORAL.SUSP. PO PRN (01:45)
[2018-11-22] MEDS ORDERED: ALBUTEROL SULFATE 2.5 MG/3 ML NEBU. NEB PRN (01:45)
[2018-11-22] MEDS ORDERED: OXYMETAZOLINE 0.05% NASAL SPRAY 30ML BOTTLE. NS PRN (01:45)
[2018-11-22] MEDS ORDERED: OXYM30SP NS (01:48)
[2018-11-22] MEDS ORDERED: TORS20TA2 PO (01:48)
[2018-11-22] MEDS ORDERED: POTA20TA82 PO (01:48)
[2018-11-22] MEDS ORDERED: ALPR0.25 PO (01:48)
[2018-11-22] MEDS ORDERED: GUAI600T47 PO (01:48)
[2018-11-22 02:52] LABS: BASE EXCESS ABG 5 mmol/L (-3-3); HCO3 ABG 34 mmol/L (21-28); PO2 ABG 78 mmHg (65-108); SAT O2 ABG 93 % (92-99)
[2018-11-22 03:16] LABS: FIO2 ABG 45; PCO2 ABG 72 mmHg (35-46)
[2018-11-22] MEDS: MORPHINE SULFATE 4 MG/ML VIAL. IV PRN (03:24)
[2018-11-22 04:36] LABS: CHOLESTEROL/HDL RATIO 2.6
--- NOTE | 2018-11-22 06:46 | EKG ---
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
[2018-11-22] MEDS: IPRATRPIUM/ALBUTEROL 0.5/2.5MG 3 ML NEBU. NEB SCH ×4 (07:29→19:32)
[2018-11-22] MEDS: BUDESONIDE 0.5 MG/2 ML NEBU. NEB SCH ×2 (07:29→19:32)
[2018-11-22] MEDS: INSULIN LISPRO 300 UNITS/3 ML INSULN.PEN. SQ SCH ×3 (08:00→17:00)
[2018-11-22 08:26] LABS: BASE EXCESS ABG 1 mmol/L (-3-3); HCO3 ABG 28 mmol/L (21-28); PCO2 ABG 56 mmHg (35-46); PO2 ABG 78 mmHg (65-108); SAT O2 ABG 94 % (92-99)
[2018-11-22 08:32] LABS: FIO2 ABG 45
[2018-11-22] MEDS ORDERED: PIP/TAZO PER PHARMACY MC PRN ×2 (09:00→12:15)
--- NOTE | 2018-11-22 09:24 | NUR ---
IP: Pt has a hx of + mrsa screens since 2017 with most recent on 08/17/18. Pt to be in contact precautions until there are 2 negative screens 7 days apart.
--- NOTE | 2018-11-22 09:45 | NUR ---
Assumed care of patient this AM. Patient was on BIPAP at time of report. RT recheck ABG's at bedside and it showed some improvement of CO2 and HCO3. Settings were adjusted to change rate from 20 to 24. Patient is tolerating bipap well. Assessed patients skin and found pannus and bilat groin area significantly reddened and under breast. There is an open area under her left breast that has a scant amount of oozing. Pictured the open area under left breast and applied foam dressing. Used Calazime cream at pannus, groin area and under right breast. Consult to wound care ordered.
[2018-11-22] MEDS: predniSONE 10 MG TABLET PO SCH (09:49)
[2018-11-22] MEDS: ASPIRIN ENTERIC COATED 81 MG TABLET.DR. PO SCH (09:49)
[2018-11-22] MEDS: ACETAMINOPHEN 325 MG TABLET. PO PRN (09:49)
[2018-11-22] MEDS: CARVEDILOL 6.25 MG TABLET. PO SCH ×2 (09:52→18:47)
[2018-11-22] MEDS: TORSEMIDE 20 MG TABLET. PO SCH ×2 (09:53→16:11)
[2018-11-22] MEDS: PIPERACILLIN/TAZOBACTAM 3.375 GM in IV NORMAL SALINE 50ML 50 ML IV SCH ×3 (09:56→23:36)
[2018-11-22] MEDS: FERROUS SULFATE 325 MG TABLET. PO SCH (09:56)
--- NOTE | 2018-11-22 09:57 | PDOC ---
PROGRESS NOTES Chief Complaint Chief Complaint Ktxwa-hs-adswrud respiratory failure Meets SIRS criteria, possible sepsis (CXR showed L base atelectasis, emphysema and chronic blunting of R costophrenic sulcus) History of COPD Elevated D dimer Zpzsaibo-ov-zlaaap protein-calorie malnutrition Hypothyroidism (TSH > 6) ?Diastolic CHF (BNP 220) History of Present Illness History of Present Illness Ms. Schwartz is a 78 yo female with multiple hospitalizations, history of COPD, presenting with worsening shortness of breath, found to have elevated D-Dimer. Patient seen and examined on BiPAP (IPAP 22, EPAP 8, RR 24, FiO2 of 45%). Patient remains short of breath in acute distress. Discussed with nurse. Patient is febrile - Tmax of 101.4. ID and Pulmonology consulted. Vitals Vitals Vital Signs Date Time Temp Pulse Resp B/P (MAP) Pulse Ox O2 Delivery O2 Flow Rate FiO2 11/22/18 08:15 93 BiPAP/CPAP 11/22/18 07:00 100.1 96 40 134/74 (94) 100.1 11/22/18 00:06 15.0 Physical Exam General: Alert, Cooperative, moderate distress (patient short of breath, on BiPAP) Heart: Regular rate, No murmurs Lungs: Wheezing, Other (rales and rhonchi all lung lynn) Abdomen: Normal bowel sounds, Soft, No tenderness Extremities: No clubbing, No cyanosis Skin: No rashes, No significant lesion Labs LABS Laboratory Tests Test 11/21/18 18:15 11/21/18 19:40 11/22/18 00:10 11/22/18 02:30 White Blood Count 9.4 x10^3/uL (4.0-11.0) Red Blood Count 4.76 x10^6/uL (3.50-5.40) Hemoglobin 13.0 g/dL (12.0-15.5) Hematocrit 40.8 % (36.0-47.0) Mean Corpuscular Volume 86 fL (79-100) Mean Corpuscular Hemoglobin 27 pg (25-35) Mean Corpuscular Hemoglobin Concent 32 g/dL (31-37) Red Cell Distribution Width 15.8 % (11.5-14.5) Platelet Count 218 x10^3/uL (140-400) Neutrophils (%) (Auto) 84 % (31-73) Lymphocytes (%) (Auto) 8 % (24-48) Monocytes (%) (Auto) 5 % (0-9) Eosinophils (%) (Auto) 2 % (0-3) Basophils (%) (Auto) 1 % (0-3) Neutrophils # (Auto) 7.9 x10^3uL (1.8-7.7) Lymphocytes # (Auto) 0.8 x10^3/uL (1.0-4.8) Monocytes # (Auto) 0.4 x10^3/uL (0.0-1.1) Eosinophils # (Auto) 0.2 x10^3/uL (0.0-0.7) Basophils # (Auto) 0.1 x10^3/uL (0.0-0.2) Sodium Level 142 mmol/L (136-145) Potassium Level 4.5 mmol/L (3.5-5.1) Chloride Level 101 mmol/L (98-107) Carbon Dioxide Level 35 mmol/L (21-32) Anion Gap 6 (6-14) Blood Urea Nitrogen 40 mg/dL (7-20) Creatinine 1.3 mg/dL (0.6-1.0) Estimated GFR (Cockcroft-Gault) 39.4 BUN/Creatinine Ratio 31 (6-20) Glucose Level 213 mg/dL (70-99) Calcium Level 8.4 mg/dL (8.5-10.1) Magnesium Level 2.0 mg/dL (1.8-2.4) Total Bilirubin 0.6 mg/dL (0.2-1.0) Aspartate Amino Transf (AST/SGOT) 26 U/L (15-37) Alanine Aminotransferase (ALT/SGPT) 19 U/L (14-59) Alkaline Phosphatase 89 U/L (46-116) Creatine Kinase 47 U/L (26-192) Creatine Kinase MB (Mass) < 0.5 ng/mL (0.0-3.6) Creatine Kinase MB Relative Index % (0-4) Troponin I Quantitative < 0.017 ng/mL (0.000-0.055) < 0.017 ng/mL (0.000-0.055) EV-Nju-A-Type Natriuretic Peptide 220 pg/mL (0-449) Total Protein 7.0 g/dL (6.4-8.2) Albumin 2.5 g/dL (3.4-5.0) Albumin/Globulin Ratio 0.6 (1.0-1.7) Lipase 163 U/L (73-393) Prothrombin Time 13.6 SEC (11.7-14.0) Prothromb Time International Ratio 1.1 (0.8-1.1) D-Dimer (Sangeetha) 5.95 ug/mlFEU (0.00-0.50) O2 Saturation 93 % (92-99) Arterial Blood pH 7.29 (7.35-7.45) Arterial Blood pCO2 at Patient Temp 72 mmHg (35-46) Arterial Blood pO2 at Patient Temp 78 mmHg (65-108) Arterial Blood HCO3 34 mmol/L (21-28) Arterial Blood Base Excess 5 mmol/L (-3-3) FiO2 45 Test 11/22/18 03:05 11/22/18 04:50 11/22/18 05:52 11/22/18 07:52 Troponin I Quantitative 0.077 ng/mL (0.000-0.055) Triglycerides Level 48 mg/dL (0-150) Cholesterol Level 132 mg/dL (0-200) LDL Cholesterol, Calculated 72 mg/dL (0-100) VLDL Cholesterol, Calculated 10 mg/dL (0-40) Non-HDL Cholesterol Calculated 82 mg/dL (0-129) HDL Cholesterol 50 mg/dL (40-60) Cholesterol/HDL Ratio 2.6 Lactic Acid Level 2.4 mmol/L (0.4-2.0) Glucose (Fingerstick) 109 mg/dL (70-99) 115 mg/dL (70-99) Test 11/22/18 08:15 O2 Saturation 94 % (92-99) Arterial Blood pH 7.32 (7.35-7.45) Arterial Blood pCO2 at Patient Temp 56 mmHg (35-46) Arterial Blood pO2 at Patient Temp 78 mmHg (65-108) Arterial Blood HCO3 28 mmol/L (21-28) Arterial Blood Base Excess 1 mmol/L (-3-3) FiO2 45 Review of Systems Review of Systems Unable to obtain, patient on biPAP in moderate distress Assessment and Plan Assessmemt and Plan Problems Medical Problems: (1) Elevated d-dimer Status: Acute Assessment: Irrpx-ap-oakrypj respiratory failure Meets SIRS criteria, possible sepsis (CXR showed L base atelectasis, emphysema and chronic blunting of R costophrenic sulcus) History of COPD Elevated D dimer Jgfsxdqk-gi-jblded protein-calorie malnutrition Hypothyroidism (TSH > 6) ?Diastolic CHF (BNP 220) Plan: Start on IV Zosyn Continue biPAP settings at FiO2 of 45% Monitor respiratory status, consider transfer to ICU if condition worsens Monitor vitals Appreciate subspecialty input Continue to follow labs Comment Review of Relevant I have reviewed the following items jamaica (where applicable) has been applied. Labs Laboratory Tests Test 11/21/18 18:15 11/21/18 19:40 11/22/18 00:10 11/22/18 02:30 White Blood Count 9.4 x10^3/uL (4.0-11.0) Red Blood Count 4.76 x10^6/uL (3.50-5.40) Hemoglobin 13.0 g/dL (12.0-15.5) Hematocrit 40.8 % (36.0-47.0) Mean Corpuscular Volume 86 fL (79-100) Mean Corpuscular Hemoglobin 27 pg (25-35) Mean Corpuscular Hemoglobin Concent 32 g/dL (31-37) Red Cell Distribution Width 15.8 % (11.5-14.5) Platelet Count 218 x10^3/uL (140-400) Neutrophils (%) (Auto) 84 % (31-73) Lymphocytes (%) (Auto) 8 % (24-48) Monocytes (%) (Auto) 5 % (0-9) Eosinophils (%) (Auto) 2 % (0-3) Basophils (%) (Auto) 1 % (0-3) Neutrophils # (Auto) 7.9 x10^3uL (1.8-7.7) Lymphocytes # (Auto) 0.8 x10^3/uL (1.0-4.8) Monocytes # (Auto) 0.4 x10^3/uL (0.0-1.1) Eosinophils # (Auto) 0.2 x10^3/uL (0.0-0.7) Basophils # (Auto) 0.1 x10^3/uL (0.0-0.2) Sodium Level 142 mmol/L (136-145) Potassium Level 4.5 mmol/L (3.5-5.1) Chloride Level 101 mmol/L (98-107) Carbon Dioxide Level 35 mmol/L (21-32) Anion Gap 6 (6-14) Blood Urea Nitrogen 40 mg/dL (7-20) Creatinine 1.3 mg/dL (0.6-1.0) Estimated GFR (Cockcroft-Gault) 39.4 BUN/Creatinine Ratio 31 (6-20) Glucose Level 213 mg/dL (70-99) Calcium Level 8.4 mg/dL (8.5-10.1) Magnesium Level 2.0 mg/dL (1.8-2.4) Total Bilirubin 0.6 mg/dL (0.2-1.0) Aspartate Amino Transf (AST/SGOT) 26 U/L (15-37) Alanine Aminotransferase (ALT/SGPT) 19 U/L (14-59) Alkaline Phosphatase 89 U/L (46-116) Creatine Kinase 47 U/L (26-192) Creatine Kinase MB (Mass) < 0.5 ng/mL (0.0-3.6) Creatine Kinase MB Relative Index % (0-4) Troponin I Quantitative < 0.017 ng/mL (0.000-0.055) < 0.017 ng/mL (0.000-0.055) EN-Qcz-S-Type Natriuretic Peptide 220 pg/mL (0-449) Total Protein 7.0 g/dL (6.4-8.2) Albumin 2.5 g/dL (3.4-5.0) Albumin/Globulin Ratio 0.6 (1.0-1.7) Lipase 163 U/L (73-393) Prothrombin Time 13.6 SEC (11.7-14.0) Prothromb Time International Ratio 1.1 (0.8-1.1) D-Dimer (Sangeetha) 5.95 ug/mlFEU (0.00-0.50) O2 Saturation 93 % (92-99) Arterial Blood pH 7.29 (7.35-7.45) Arterial Blood pCO2 at Patient Temp 72 mmHg (35-46) Arterial Blood pO2 at Patient Temp 78 mmHg (65-108) Arterial Blood HCO3 34 mmol/L (21-28) Arterial Blood Base Excess 5 mmol/L (-3-3) FiO2 45 Test 11/22/18 03:05 11/22/18 04:50 11/22/18 05:52 11/22/18 07:52 Troponin I Quantitative 0.077 ng/mL (0.000-0.055) Triglycerides Level 48 mg/dL (0-150) Cholesterol Level 132 mg/dL (0-200) LDL Cholesterol, Calculated 72 mg/dL (0-100) VLDL Cholesterol, Calculated 10 mg/dL (0-40) Non-HDL Cholesterol Calculated 82 mg/dL (0-129) HDL Cholesterol 50 mg/dL (40-60) Cholesterol/HDL Ratio 2.6 Lactic Acid Level 2.4 mmol/L (0.4-2.0) Glucose (Fingerstick) 109 mg/dL (70-99) 115 mg/dL (70-99) Test 11/22/18 08:15 O2 Saturation 94 % (92-99) Arterial Blood pH 7.32 (7.35-7.45) Arterial Blood pCO2 at Patient Temp 56 mmHg (35-46) Arterial Blood pO2 at Patient Temp 78 mmHg (65-108) Arterial Blood HCO3 28 mmol/L (21-28) Arterial Blood Base Excess 1 mmol/L (-3-3) FiO2 45 Laboratory Tests Test 11/21/18 18:15 11/21/18 19:40 11/22/18 00:10 11/22/18 02:30 White Blood Count 9.4 x10^3/uL (4.0-11.0) Red Blood Count 4.76 x10^6/uL (3.50-5.40) Hemoglobin 13.0 g/dL (12.0-15.5) Hematocrit 40.8 % (36.0-47.0) Mean Corpuscular Volume 86 fL (79-100) Mean Corpuscular Hemoglobin 27 pg (25-35) Mean Corpuscular Hemoglobin Concent 32 g/dL (31-37) Red Cell Distribution Width 15.8 % (11.5-14.5) Platelet Count 218 x10^3/uL (140-400) Neutrophils (%) (Auto) 84 % (31-73) Lymphocytes (%) (Auto) 8 % (24-48) Monocytes (%) (Auto) 5 % (0-9) Eosinophils (%) (Auto) 2 % (0-3) Basophils (%) (Auto) 1 % (0-3) Neutrophils # (Auto) 7.9 x10^3uL (1.8-7.7) Lymphocytes # (Auto) 0.8 x10^3/uL (1.0-4.8) Monocytes # (Auto) 0.4 x10^3/uL (0.0-1.1) Eosinophils # (Auto) 0.2 x10^3/uL (0.0-0.7) Basophils # (Auto) 0.1 x10^3/uL (0.0-0.2) Sodium Level 142 mmol/L (136-145) Potassium Level 4.5 mmol/L (3.5-5.1) Chloride Level 101 mmol/L (98-107) Carbon Dioxide Level 35 mmol/L (21-32) Anion Gap 6 (6-14) Blood Urea Nitrogen 40 mg/dL (7-20) Creatinine 1.3 mg/dL (0.6-1.0) Estimated GFR (Cockcroft-Gault) 39.4 BUN/Creatinine Ratio 31 (6-20) Glucose Level 213 mg/dL (70-99) Calcium Level 8.4 mg/dL (8.5-10.1) Magnesium Level 2.0 mg/dL (1.8-2.4) Total Bilirubin 0.6 mg/dL (0.2-1.0) Aspartate Amino Transf (AST/SGOT) 26 U/L (15-37) Alanine Aminotransferase (ALT/SGPT) 19 U/L (14-59) Alkaline Phosphatase 89 U/L (46-116) Creatine Kinase 47 U/L (26-192) Creatine Kinase MB (Mass) < 0.5 ng/mL (0.0-3.6) Creatine Kinase MB Relative Index % (0-4) Troponin I Quantitative < 0.017 ng/mL (0.000-0.055) < 0.017 ng/mL (0.000-0.055) VN-Wut-K-Type Natriuretic Peptide 220 pg/mL (0-449) Total Protein 7.0 g/dL (6.4-8.2) Albumin 2.5 g/dL (3.4-5.0) Albumin/Globulin Ratio 0.6 (1.0-1.7) Lipase 163 U/L (73-393) Prothrombin Time 13.6 SEC (11.7-14.0) Prothromb Time International Ratio 1.1 (0.8-1.1) D-Dimer (Sangeetha) 5.95 ug/mlFEU (0.00-0.50) O2 Saturation 93 % (92-99) Arterial Blood pH 7.29 (7.35-7.45) Arterial Blood pCO2 at Patient Temp 72 mmHg (35-46) Arterial Blood pO2 at Patient Temp 78 mmHg (65-108) Arterial Blood HCO3 34 mmol/L (21-28) Arterial Blood Base Excess 5 mmol/L (-3-3) FiO2 45 Test 11/22/18 03:05 11/22/18 04:50 11/22/18 05:52 11/22/18 07:52 Troponin I Quantitative 0.077 ng/mL (0.000-0.055) Triglycerides Level 48 mg/dL (0-150) Cholesterol Level 132 mg/dL (0-200) LDL Cholesterol, Calculated 72 mg/dL (0-100) VLDL Cholesterol, Calculated 10 mg/dL (0-40) Non-HDL Cholesterol Calculated 82 mg/dL (0-129) HDL Cholesterol 50 mg/dL (40-60) Cholesterol/HDL Ratio 2.6 Lactic Acid Level 2.4 mmol/L (0.4-2.0) Glucose (Fingerstick) 109 mg/dL (70-99) 115 mg/dL (70-99) Test 11/22/18 08:15 O2 Saturation 94 % (92-99) Arterial Blood pH 7.32 (7.35-7.45) Arterial Blood pCO2 at Patient Temp 56 mmHg (35-46) Arterial Blood pO2 at Patient Temp 78 mmHg (65-108) Arterial Blood HCO3 28 mmol/L (21-28) Arterial Blood Base Excess 1 mmol/L (-3-3) FiO2 45 Medications Current Medications Albuterol/ Ipratropium (Duoneb) 3 ml StampedK-MED ONCE .ROUTE ; Start 11/21/18 at 18: 13; Stop 11/21/18 at 18:14; Status DC Aspirin ([place] Aspirin) 325 mg 1X ONCE PO Last administered on 11/21/18at 19:55 ; Start 11/21/18 at 20:00; Stop 11/21/18 at 20:01; Status DC Ondansetron HCl (Zofran) 4 mg PRN Q8HRS PRN IV NAUSEA/VOMITING; Start 11/21/18 at 21:15; Stop 11/22/18 at 21:14 Albuterol/ Ipratropium (Duoneb) 3 ml RTQID NEB Last administered on 11/22/18at 07 :29; Start 11/22/18 at 08:00; Stop 11/23/18 at 07:59 Insulin Human Lispro (HumaLOG) 0-5 UNITS TIDWMEALS SQ ; Start 11/22/18 at 08:00 Dextrose (Dextrose 50%-Water Syringe) 12.5 gm PRN Q15MIN PRN IV SEE COMMENTS; Start 11/21/18 at 21:15 Enoxaparin Sodium (Lovenox 100mg Syringe) 90 mg 1X ONCE SQ Last administered on 11/21/18at 22:50; Start 11/21/18 at 22:00; Stop 11/21/18 at 22:01; Status DC Albuterol/ Ipratropium (Duoneb) 3 ml 1X ONCE NEB Last administered on at 22:14; Start 11/21/18 at 22:00; Stop 11/21/18 at 22:01; Status DC Budesonide (Pulmicort) 0.5 mg RTBID NEB Last administered on 11/22/18at 07:29; Start 11/21/18 at 23:45 Labetalol HCl (Normodyne Iv Push) 10 mg PRN Q4HRS PRN IVP HYPERTENSION, SEE COMMENTS; Start 11/22/18 at 00:00 Lorazepam (Ativan) 0.5 mg PRN Q6HRS PRN IV ANXIETY / AGITATION Last administered on 11/22/18at 00:00; Start 11/22/18 at 00:00 Labetalol HCl (Normodyne Iv Push) 20 mg PRN Q6HRS PRN IVP HYPERTENSION, SEE COMMENTS; Start 11/22/18 at 00:00 Lorazepam (Ativan) 0.5 mg PRN Q6HRS PRN IV ANXIETY / AGITATION; Start 11/22/18 at 00:00 Acetaminophen (Tylenol) 650 mg PRN TID PRN PO PAIN; Start 11/22/18 at 01:45 Alprazolam (Xanax) 0.25 mg PRN Q6HRS PRN PO ANXIETY / AGITATION; Start 11/22/18 at 01:45 Aspirin (Ecotrin) 81 mg DAILYWBKFT PO ; Start 11/22/18 at 08:00 Carvedilol (Coreg) 6.25 mg BIDWMEALS PO ; Start 11/22/18 at 08:00 Ferrous Sulfate (Feosol) 325 mg DAILY PO ; Start 11/22/18 at 09:00 Guaifenesin (Mucinex) 600 mg BID PO ; Start 11/22/18 at 09:00 Albuterol Sulfate (Ventolin Neb Soln) 2.5 mg PRN Q4HRS PRN NEB CONGESTION; Start 11/22/18 at 01:45 Magnesium Hydroxide (Milk Of Magnesia) 2,400 mg PRN Q12HR PRN PO CONSTIPATION; Start 11/22/18 at 01:45 Prednisone (Prednisone) 10 mg DAILY PO ; Start 11/22/18 at 09:00 Oxymetazoline HCl (Afrin) 1 spray PRN Q2HR PRN NS nose bleeds; Start 11/22/18 at 01:45 Potassium Chloride (Klor-Con) 40 meq DAILY08 PO ; Start 11/22/18 at 08:00 Atorvastatin Calcium (Lipitor) 5 mg QHS PO ; Start 11/22/18 at 21:00 Torsemide (Demadex) 40 mg BID92 PO ; Start 11/22/18 at 09:00 Morphine Sulfate (Morphine Sulfate) 2 mg PRN Q4HRS PRN IV PAIN Last administered on 11/22/18at 03:24; Start 11/22/18 at 03:15 Piperacillin Sod/ Tazobactam Sod (Zosyn Per Pharmacy) 1 each PRN DAILY PRN MC SEE COMMENTS; Start 11/22/18 at 09:00 Piperacillin Sod/ Tazobactam Sod 3.375 gm/Sodium Chloride 50 ml @ 100 mls/hr Q6HRS IV ; Start 11/22/18 at 10:00 Active Scripts Active Prednisone (Prednisone) 10 Mg Tablet 10 Mg PO UD Take 5 tablets by mouth daily for 2 days, then take 4 tablets by mouth daily for 2 days, then take 3 tablets by mouth daily for 2 days, then take 2 tablets by mouth daily for 2 days, then take 1 tablets by mouth daily for 2 days, then stop. Milk Of Magnesia (Magnesium Hydroxide) 400 Mg/5 Ml Oral.susp 2,400 Mg PO PRN Q12HR PRN 10 Days Reported Potassium Chloride 20 Meq Tablet.er 40 Meq PO DAILY Mucinex (Guaifenesin) 600 Mg Tablet.er 1 Tab PO BID Xanax (Alprazolam) 0.25 Mg Tablet 0.25 Mg PO PRN Q6HRS PRN Afrin (Oxymetazoline Hcl) 30 Ml [place] 30 Ml NS PRN Q2HR PRN Tylenol (Acetaminophen) 325 Mg Tablet 650 Mg PO TID PRN PRN Aspir 81 (Aspirin) 81 Mg Tablet. 1 Tab PO DAILY Iron Supplement (Ferrous Sulfate) 325 Mg Tablet 1 Tab PO DAILY Advair 250-50 Diskus (Fluticasone/Salmeterol) 1 Each Disk.w.dev 1 Puff IH BID Duoneb 0.5-3(2.5) Mg/3 Ml (Albuterol/Ipratropium) 3 Ml Ampul.neb 3 Ml IH Q4HRS PRN Pravastatin Sodium 10 Mg Tablet 1 Tab PO QHS Carvedilol (Carvedilol) 6.25 Mg Tablet 1 Tab PO BID Torsemide 20 Mg Tablet 40 Mg PO BID Vitals/I & O Vital Sign - Last 24 Hours 11/21/18 11/21/18 11/21/18 11/21/18 18:16 18:21 18:30 19:00 Temp 98.3 98.3 Pulse 86 82 78 Resp 40 B/P (MAP) 145/65 (91) 139/56 (83) 160/74 (102) Pulse Ox 84 92 91 O2 Delivery Nasal Cannula Nasal Cannula Nasal Cannula O2 Flow Rate 2.0 3.0 3.0 3.0 11/21/18 11/21/18 11/21/18 11/21/18 19:30 20:00 20:30 21:00 Pulse 86 88 88 86 B/P (MAP) 169/69 (102) 143/72 (95) 120/60 (80) 129/56 (80) Pulse Ox 92 93 92 93 O2 Delivery Nasal Cannula Nasal Cannula Nasal Cannula Nasal Cannula O2 Flow Rate 3.0 3.0 3.0 3.0 11/21/18 11/21/18 11/21/18 11/21/18 21:30 22:00 22:15 22:30 Pulse 92 92 98 B/P (MAP) 147/69 (95) 165/74 (104) 182/85 (117) Pulse Ox 90 92 94 88 O2 Delivery Nasal Cannula Nasal Cannula Nasal Cannula Nasal Cannula O2 Flow Rate 3.0 3.0 3.0 3.0 11/21/18 11/21/18 11/22/18 11/22/18 23:35 23:45 00:06 03:06 Temp 99.8 99.8 Pulse 125 Resp 40 B/P (MAP) 176/88 (117) Pulse Ox 94 94 93 O2 Delivery BiPAP/CPAP Bi-pap Venturi Mask BiPAP/CPAP O2 Flow Rate 15.0 11/22/18 11/22/18 11/22/18 11/22/18 03:24 03:54 03:57 04:26 Temp 101.4 101.4 Pulse 106 Resp 43 B/P (MAP) 76/47 (57) Pulse Ox 93 93 93 93 O2 Delivery BiPAP/CPAP BiPAP/CPAP BiPAP/CPAP BiPAP/CPAP 11/22/18 11/22/18 11/22/18 11/22/18 05:54 07:00 07:29 08:15 Temp 100.1 100.1 Pulse 96 Resp 40 B/P (MAP) 134/74 (94) Pulse Ox 93 93 94 93 O2 Delivery BiPAP/CPAP BiPAP/CPAP BiPAP/CPAP BiPAP/CPAP Intake and Output 11/21/18 11/21/18 11/22/18 15:00 23:00 07:00 Intake Total 0 ml Balance 0 ml ANN MARIE TREVINO III DO Nov 22, 2018 09:57
[2018-11-22] MEDS: POTASSIUM CHLORIDE 20 MEQ TABLET.ER. PO SCH (10:01)
[2018-11-22] MEDS: NYSTATIN TOPICAL POWDER 15GM BOTTLE. TP SCH ×2 (11:00→23:37)
[2018-11-22] MEDS ORDERED: IV NORMAL SALINE 1000ML BAG 1,000 ML IV ONE (11:00)
[2018-11-22 11:13] LABS: INFLUENZA A PATIENT POSITIVE (NEGATIVE); INFLUENZA B PATIENT NEGATIVE (NEGATIVE)
--- NOTE | 2018-11-22 12:13 | PDOC ---
Infectious Disease Note Vital Signs: Vital Signs Vital Signs Date Time Temp Pulse Resp B/P (MAP) Pulse Ox O2 Delivery O2 Flow Rate FiO2 11/22/18 11:23 96 BiPAP/CPAP 11/22/18 11:00 99.1 76 45 110/53 (72) 99.1 11/22/18 08:00 15.0 Medications: Inpatient Meds: Current Medications Medications (Trade) Dose Ordered Sig/Eva Start Time Stop Time Status Last Admin Dose Admin Acetaminophen (Tylenol) 650 mg PRN TID PRN 11/22/18 01:45 11/22/18 09:49 650 MG Albuterol Sulfate (Ventolin Neb Soln) 2.5 mg PRN Q4HRS PRN 11/22/18 01:45 Albuterol/ Ipratropium (Duoneb) 3 ml 1X ONCE 11/21/18 22:00 11/21/18 22:01 DC 11/21/18 22:14 3 ML Alprazolam (Xanax) 0.25 mg PRN Q6HRS PRN 11/22/18 01:45 Aspirin (Way[place] Aspirin) 325 mg 1X ONCE 11/21/18 20:00 11/21/18 20:01 DC 11/21/18 19:55 325 MG Aspirin (Ecotrin) 81 mg DAILYWBKFT 11/22/18 08:00 11/22/18 09:49 81 MG Atorvastatin Calcium (Lipitor) 5 mg QHS 11/22/18 21:00 Budesonide (Pulmicort) 0.5 mg RTBID 11/21/18 23:45 11/22/18 07:29 0.5 MG Carvedilol (Coreg) 6.25 mg BIDWMEALS 11/22/18 08:00 11/22/18 09:52 6.25 MG Dextrose (Dextrose 50%-Water Syringe) 12.5 gm PRN Q15MIN PRN 11/21/18 21:15 Enoxaparin Sodium (Lovenox 100mg Syringe) 90 mg 1X ONCE 11/21/18 22:00 11/21/18 22:01 DC 11/21/18 22:50 90 MG Ferrous Sulfate (Feosol) 325 mg DAILY 11/22/18 09:00 11/22/18 09:56 325 MG Guaifenesin (Mucinex) 600 mg BID 11/22/18 09:00 11/22/18 09:55 600 MG Insulin Human Lispro (HumaLOG) 0-5 UNITS TIDWMEALS 11/22/18 08:00 Labetalol HCl (Normodyne Iv Push) 20 mg PRN Q6HRS PRN 11/22/18 00:00 Lorazepam (Ativan) 0.5 mg PRN Q6HRS PRN 11/22/18 00:00 Magnesium Hydroxide (Milk Of Magnesia) 2,400 mg PRN Q12HR PRN 11/22/18 01:45 Morphine Sulfate (Morphine Sulfate) 2 mg PRN Q4HRS PRN 11/22/18 03:15 11/22/18 03:24 2 MG Nystatin (Nystop) 1 jaison BID 11/22/18 11:00 Ondansetron HCl (Zofran) 4 mg PRN Q8HRS PRN 11/21/18 21:15 11/22/18 21:14 Oseltamivir Phosphate (Tamiflu) 30 mg BID 11/22/18 12:00 11/27/18 11:59 Oxymetazoline HCl (Afrin) 1 spray PRN Q2HR PRN 11/22/18 01:45 Piperacillin Sod/ Tazobactam Sod (Zosyn Per Pharmacy) 1 each PRN DAILY PRN 11/22/18 09:00 Piperacillin Sod/ Tazobactam Sod 3.375 gm/Sodium Chloride 50 ml @ 100 mls/hr Q6HRS 11/22/18 10:00 11/22/18 09:56 100 MLS/HR Potassium Chloride (Klor-Con) 40 meq DAILY08 11/22/18 08:00 11/22/18 10:01 40 MEQ Prednisone (Prednisone) 10 mg DAILY 11/22/18 09:00 11/22/18 09:49 10 MG Sodium Chloride 1,000 ml @ 250 mls/hr 1X ONCE 11/22/18 11:00 11/22/18 14:59 11/22/18 11:37 250 MLS/HR Torsemide (Demadex) 40 mg BID92 11/22/18 09:00 11/22/18 09:53 40 MG Labs: Lab Laboratory Tests Test 11/21/18 18:15 11/21/18 19:40 11/22/18 00:10 11/22/18 02:30 White Blood Count 9.4 x10^3/uL (4.0-11.0) Red Blood Count 4.76 x10^6/uL (3.50-5.40) Hemoglobin 13.0 g/dL (12.0-15.5) Hematocrit 40.8 % (36.0-47.0) Mean Corpuscular Volume 86 fL (79-100) Mean Corpuscular Hemoglobin 27 pg (25-35) Mean Corpuscular Hemoglobin Concent 32 g/dL (31-37) Red Cell Distribution Width 15.8 % (11.5-14.5) Platelet Count 218 x10^3/uL (140-400) Neutrophils (%) (Auto) 84 % (31-73) Lymphocytes (%) (Auto) 8 % (24-48) Monocytes (%) (Auto) 5 % (0-9) Eosinophils (%) (Auto) 2 % (0-3) Basophils (%) (Auto) 1 % (0-3) Neutrophils # (Auto) 7.9 x10^3uL (1.8-7.7) Lymphocytes # (Auto) 0.8 x10^3/uL (1.0-4.8) Monocytes # (Auto) 0.4 x10^3/uL (0.0-1.1) Eosinophils # (Auto) 0.2 x10^3/uL (0.0-0.7) Basophils # (Auto) 0.1 x10^3/uL (0.0-0.2) Sodium Level 142 mmol/L (136-145) Potassium Level 4.5 mmol/L (3.5-5.1) Chloride Level 101 mmol/L (98-107) Carbon Dioxide Level 35 mmol/L (21-32) Anion Gap 6 (6-14) Blood Urea Nitrogen 40 mg/dL (7-20) Creatinine 1.3 mg/dL (0.6-1.0) Estimated GFR (Cockcroft-Gault) 39.4 BUN/Creatinine Ratio 31 (6-20) Glucose Level 213 mg/dL (70-99) Calcium Level 8.4 mg/dL (8.5-10.1) Magnesium Level 2.0 mg/dL (1.8-2.4) Total Bilirubin 0.6 mg/dL (0.2-1.0) Aspartate Amino Transf (AST/SGOT) 26 U/L (15-37) Alanine Aminotransferase (ALT/SGPT) 19 U/L (14-59) Alkaline Phosphatase 89 U/L (46-116) Creatine Kinase 47 U/L (26-192) Creatine Kinase MB (Mass) < 0.5 ng/mL (0.0-3.6) Creatine Kinase MB Relative Index % (0-4) Troponin I Quantitative < 0.017 ng/mL (0.000-0.055) < 0.017 ng/mL (0.000-0.055) LS-Rza-L-Type Natriuretic Peptide 220 pg/mL (0-449) Total Protein 7.0 g/dL (6.4-8.2) Albumin 2.5 g/dL (3.4-5.0) Albumin/Globulin Ratio 0.6 (1.0-1.7) Lipase 163 U/L (73-393) Prothrombin Time 13.6 SEC (11.7-14.0) Prothromb Time International Ratio 1.1 (0.8-1.1) D-Dimer (Sangeetha) 5.95 ug/mlFEU (0.00-0.50) O2 Saturation 93 % (92-99) Arterial Blood pH 7.29 (7.35-7.45) Arterial Blood pCO2 at Patient Temp 72 mmHg (35-46) Arterial Blood pO2 at Patient Temp 78 mmHg (65-108) Arterial Blood HCO3 34 mmol/L (21-28) Arterial Blood Base Excess 5 mmol/L (-3-3) FiO2 45 Test 11/22/18 03:05 11/22/18 04:50 11/22/18 05:52 11/22/18 07:52 Troponin I Quantitative 0.077 ng/mL (0.000-0.055) Triglycerides Level 48 mg/dL (0-150) Cholesterol Level 132 mg/dL (0-200) LDL Cholesterol, Calculated 72 mg/dL (0-100) VLDL Cholesterol, Calculated 10 mg/dL (0-40) Non-HDL Cholesterol Calculated 82 mg/dL (0-129) HDL Cholesterol 50 mg/dL (40-60) Cholesterol/HDL Ratio 2.6 Lactic Acid Level 2.4 mmol/L (0.4-2.0) Glucose (Fingerstick) 109 mg/dL (70-99) 115 mg/dL (70-99) Test 11/22/18 08:15 11/22/18 08:55 11/22/18 10:00 O2 Saturation 94 % (92-99) Arterial Blood pH 7.32 (7.35-7.45) Arterial Blood pCO2 at Patient Temp 56 mmHg (35-46) Arterial Blood pO2 at Patient Temp 78 mmHg (65-108) Arterial Blood HCO3 28 mmol/L (21-28) Arterial Blood Base Excess 1 mmol/L (-3-3) FiO2 45 Lactic Acid Level 2.2 mmol/L (0.4-2.0) Influenza Type A Antigen Positive (NEGATIVE) Influenza Type B Antigen Negative (NEGATIVE) Objective: Assessment: PT SEEN AND EXAMINED ID CONSULT DICTATED [id number] IMP Febrile illness Influenza A positive lactic acidosis acute on chronic hypoxic resp failure elevated d dimer COPD on home O2 NH resident DM h/o CHF Anemia Plan: Plan of Care tamiflu zosyn bc f/u cults and labs in am cont supportive care SUNG NORTON MD Nov 22, 2018 12:13
--- NOTE | 2018-11-22 12:59 | NUR ---
SS following up with discharge planning. SS received notification that pt was from [facility]. SS contacted [facility] to verify pt's previous placement. [facility] confirmed that pt is a LTC resident from there facility and could return when ready for discharge. Pt's RN notified.
[2018-11-22] MEDS: OSELTAMIVIR 30 MG CAPSULE PO SCH ×2 (13:17→20:28)
--- NOTE | 2018-11-22 13:23 | NUR ---
NON administered 1200 humalog dose due to patient refusing to eat and blood glucose being 163
--- NOTE | 2018-11-22 13:58 | PDOC ---
PULMONARY PROGRESS NOTES Vitals Vital Signs Date Time Temp Pulse Resp B/P (MAP) Pulse Ox O2 Delivery O2 Flow Rate FiO2 11/22/18 11:23 96 BiPAP/CPAP 11/22/18 11:00 99.1 76 45 110/53 (72) 99.1 11/22/18 08:00 15.0 General: Alert, No acute distress Lungs: Wheezing, Other (rales and rhonchi all lung lynn) Cardiovascular: S1, S2 Abdomen: Soft, Non-tender Extremities: Other Labs Laboratory Tests Test 11/21/18 18:15 11/21/18 19:40 11/22/18 00:10 11/22/18 02:30 White Blood Count 9.4 x10^3/uL (4.0-11.0) Red Blood Count 4.76 x10^6/uL (3.50-5.40) Hemoglobin 13.0 g/dL (12.0-15.5) Hematocrit 40.8 % (36.0-47.0) Mean Corpuscular Volume 86 fL (79-100) Mean Corpuscular Hemoglobin 27 pg (25-35) Mean Corpuscular Hemoglobin Concent 32 g/dL (31-37) Red Cell Distribution Width 15.8 % (11.5-14.5) Platelet Count 218 x10^3/uL (140-400) Neutrophils (%) (Auto) 84 % (31-73) Lymphocytes (%) (Auto) 8 % (24-48) Monocytes (%) (Auto) 5 % (0-9) Eosinophils (%) (Auto) 2 % (0-3) Basophils (%) (Auto) 1 % (0-3) Neutrophils # (Auto) 7.9 x10^3uL (1.8-7.7) Lymphocytes # (Auto) 0.8 x10^3/uL (1.0-4.8) Monocytes # (Auto) 0.4 x10^3/uL (0.0-1.1) Eosinophils # (Auto) 0.2 x10^3/uL (0.0-0.7) Basophils # (Auto) 0.1 x10^3/uL (0.0-0.2) Sodium Level 142 mmol/L (136-145) Potassium Level 4.5 mmol/L (3.5-5.1) Chloride Level 101 mmol/L (98-107) Carbon Dioxide Level 35 mmol/L (21-32) Anion Gap 6 (6-14) Blood Urea Nitrogen 40 mg/dL (7-20) Creatinine 1.3 mg/dL (0.6-1.0) Estimated GFR (Cockcroft-Gault) 39.4 BUN/Creatinine Ratio 31 (6-20) Glucose Level 213 mg/dL (70-99) Calcium Level 8.4 mg/dL (8.5-10.1) Magnesium Level 2.0 mg/dL (1.8-2.4) Total Bilirubin 0.6 mg/dL (0.2-1.0) Aspartate Amino Transf (AST/SGOT) 26 U/L (15-37) Alanine Aminotransferase (ALT/SGPT) 19 U/L (14-59) Alkaline Phosphatase 89 U/L (46-116) Creatine Kinase 47 U/L (26-192) Creatine Kinase MB (Mass) < 0.5 ng/mL (0.0-3.6) Creatine Kinase MB Relative Index % (0-4) Troponin I Quantitative < 0.017 ng/mL (0.000-0.055) < 0.017 ng/mL (0.000-0.055) BX-Czl-B-Type Natriuretic Peptide 220 pg/mL (0-449) Total Protein 7.0 g/dL (6.4-8.2) Albumin 2.5 g/dL (3.4-5.0) Albumin/Globulin Ratio 0.6 (1.0-1.7) Lipase 163 U/L (73-393) Prothrombin Time 13.6 SEC (11.7-14.0) Prothromb Time International Ratio 1.1 (0.8-1.1) D-Dimer (Sangeetha) 5.95 ug/mlFEU (0.00-0.50) O2 Saturation 93 % (92-99) Arterial Blood pH 7.29 (7.35-7.45) Arterial Blood pCO2 at Patient Temp 72 mmHg (35-46) Arterial Blood pO2 at Patient Temp 78 mmHg (65-108) Arterial Blood HCO3 34 mmol/L (21-28) Arterial Blood Base Excess 5 mmol/L (-3-3) FiO2 45 Test 11/22/18 03:05 11/22/18 04:50 11/22/18 05:52 11/22/18 07:52 Troponin I Quantitative 0.077 ng/mL (0.000-0.055) Triglycerides Level 48 mg/dL (0-150) Cholesterol Level 132 mg/dL (0-200) LDL Cholesterol, Calculated 72 mg/dL (0-100) VLDL Cholesterol, Calculated 10 mg/dL (0-40) Non-HDL Cholesterol Calculated 82 mg/dL (0-129) HDL Cholesterol 50 mg/dL (40-60) Cholesterol/HDL Ratio 2.6 Lactic Acid Level 2.4 mmol/L (0.4-2.0) Glucose (Fingerstick) 109 mg/dL (70-99) 115 mg/dL (70-99) Test 11/22/18 08:15 11/22/18 08:55 11/22/18 10:00 11/22/18 11:59 O2 Saturation 94 % (92-99) Arterial Blood pH 7.32 (7.35-7.45) Arterial Blood pCO2 at Patient Temp 56 mmHg (35-46) Arterial Blood pO2 at Patient Temp 78 mmHg (65-108) Arterial Blood HCO3 28 mmol/L (21-28) Arterial Blood Base Excess 1 mmol/L (-3-3) FiO2 45 Lactic Acid Level 2.2 mmol/L (0.4-2.0) Influenza Type A Antigen Positive (NEGATIVE) Influenza Type B Antigen Negative (NEGATIVE) Glucose (Fingerstick) 163 mg/dL (70-99) Laboratory Tests Test 11/21/18 18:15 11/21/18 19:40 11/22/18 00:10 11/22/18 02:30 White Blood Count 9.4 x10^3/uL (4.0-11.0) Red Blood Count 4.76 x10^6/uL (3.50-5.40) Hemoglobin 13.0 g/dL (12.0-15.5) Hematocrit 40.8 % (36.0-47.0) Mean Corpuscular Volume 86 fL (79-100) Mean Corpuscular Hemoglobin 27 pg (25-35) Mean Corpuscular Hemoglobin Concent 32 g/dL (31-37) Red Cell Distribution Width 15.8 % (11.5-14.5) Platelet Count 218 x10^3/uL (140-400) Neutrophils (%) (Auto) 84 % (31-73) Lymphocytes (%) (Auto) 8 % (24-48) Monocytes (%) (Auto) 5 % (0-9) Eosinophils (%) (Auto) 2 % (0-3) Basophils (%) (Auto) 1 % (0-3) Neutrophils # (Auto) 7.9 x10^3uL (1.8-7.7) Lymphocytes # (Auto) 0.8 x10^3/uL (1.0-4.8) Monocytes # (Auto) 0.4 x10^3/uL (0.0-1.1) Eosinophils # (Auto) 0.2 x10^3/uL (0.0-0.7) Basophils # (Auto) 0.1 x10^3/uL (0.0-0.2) Sodium Level 142 mmol/L (136-145) Potassium Level 4.5 mmol/L (3.5-5.1) Chloride Level 101 mmol/L (98-107) Carbon Dioxide Level 35 mmol/L (21-32) Anion Gap 6 (6-14) Blood Urea Nitrogen 40 mg/dL (7-20) Creatinine 1.3 mg/dL (0.6-1.0) Estimated GFR (Cockcroft-Gault) 39.4 BUN/Creatinine Ratio 31 (6-20) Glucose Level 213 mg/dL (70-99) Calcium Level 8.4 mg/dL (8.5-10.1) Magnesium Level 2.0 mg/dL (1.8-2.4) Total Bilirubin 0.6 mg/dL (0.2-1.0) Aspartate Amino Transf (AST/SGOT) 26 U/L (15-37) Alanine Aminotransferase (ALT/SGPT) 19 U/L (14-59) Alkaline Phosphatase 89 U/L (46-116) Creatine Kinase 47 U/L (26-192) Creatine Kinase MB (Mass) < 0.5 ng/mL (0.0-3.6) Creatine Kinase MB Relative Index % (0-4) Troponin I Quantitative < 0.017 ng/mL (0.000-0.055) < 0.017 ng/mL (0.000-0.055) JK-Dfr-B-Type Natriuretic Peptide 220 pg/mL (0-449) Total Protein 7.0 g/dL (6.4-8.2) Albumin 2.5 g/dL (3.4-5.0) Albumin/Globulin Ratio 0.6 (1.0-1.7) Lipase 163 U/L (73-393) Prothrombin Time 13.6 SEC (11.7-14.0) Prothromb Time International Ratio 1.1 (0.8-1.1) D-Dimer (Sangeetha) 5.95 ug/mlFEU (0.00-0.50) O2 Saturation 93 % (92-99) Arterial Blood pH 7.29 (7.35-7.45) Arterial Blood pCO2 at Patient Temp 72 mmHg (35-46) Arterial Blood pO2 at Patient Temp 78 mmHg (65-108) Arterial Blood HCO3 34 mmol/L (21-28) Arterial Blood Base Excess 5 mmol/L (-3-3) FiO2 45 Test 11/22/18 03:05 11/22/18 04:50 11/22/18 05:52 11/22/18 07:52 Troponin I Quantitative 0.077 ng/mL (0.000-0.055) Triglycerides Level 48 mg/dL (0-150) Cholesterol Level 132 mg/dL (0-200) LDL Cholesterol, Calculated 72 mg/dL (0-100) VLDL Cholesterol, Calculated 10 mg/dL (0-40) Non-HDL Cholesterol Calculated 82 mg/dL (0-129) HDL Cholesterol 50 mg/dL (40-60) Cholesterol/HDL Ratio 2.6 Lactic Acid Level 2.4 mmol/L (0.4-2.0) Glucose (Fingerstick) 109 mg/dL (70-99) 115 mg/dL (70-99) Test 11/22/18 08:15 11/22/18 08:55 11/22/18 10:00 11/22/18 11:59 O2 Saturation 94 % (92-99) Arterial Blood pH 7.32 (7.35-7.45) Arterial Blood pCO2 at Patient Temp 56 mmHg (35-46) Arterial Blood pO2 at Patient Temp 78 mmHg (65-108) Arterial Blood HCO3 28 mmol/L (21-28) Arterial Blood Base Excess 1 mmol/L (-3-3) FiO2 45 Lactic Acid Level 2.2 mmol/L (0.4-2.0) Influenza Type A Antigen Positive (NEGATIVE) Influenza Type B Antigen Negative (NEGATIVE) Glucose (Fingerstick) 163 mg/dL (70-99) Medications Active Scripts Medications Dose Route/Sig Max Daily Dose Days Date Category Dose Instructions Potassium Chloride 20 Meq Tablet.er 40 Meq PO DAILY 11/22/18 Reported Mucinex (Guaifenesin) 600 Mg Tablet.er 1 Tab PO BID 11/22/18 Reported Xanax (Alprazolam) 0.25 Mg Tablet 0.25 Mg PO PRN Q6HRS PRN 11/22/18 Reported Afrin (Oxymetazoline Hcl) 30 Ml [place] 30 Ml NS PRN Q2HR PRN 11/22/18 Reported Prednisone (Prednisone) 10 Mg Tablet 10 Mg PO UD 08/29/18 Rx Take 5 tablets by mouth daily for 2 days, then take 4 tablets by mouth daily for 2 days, then take 3 tablets by mouth daily for 2 days, then take 2 tablets by mouth daily for 2 days, then take 1 tablets by mouth daily for 2 days, then stop. Milk Of Magnesia (Magnesium Hydroxide) 400 Mg/5 Ml Oral.susp 2,400 Mg PO PRN Q12HR PRN 10 08/20/18 Rx Tylenol (Acetaminophen) 325 Mg Tablet 650 Mg PO TID PRN PRN 04/11/16 Reported Aspir 81 (Aspirin) 81 Mg Tablet.dr 1 Tab PO DAILY 04/11/16 Reported Iron Supplement (Ferrous Sulfate) 325 Mg Tablet 1 Tab PO DAILY 11/10/15 Reported Advair 250-50 Diskus (Fluticasone/Salmeterol) 1 Each Disk.w.dev 1 Puff IH BID 05/06/15 Reported Duoneb 0.5-3(2.5) Mg/3 Ml (Albuterol/Ipratropium) 3 Ml Ampul.neb 3 Ml IH Q4HRS PRN 05/06/15 Reported Pravastatin Sodium 10 Mg Tablet 1 Tab PO QHS 09/16/14 Reported Carvedilol (Carvedilol) 6.25 Mg Tablet 1 Tab PO BID 09/16/14 Reported Torsemide 20 Mg Tablet 40 Mg PO BID 11/22/18 Reported Impression . DICTATED AGREE WITH CURRENT RX THANKS JESSE STRANGE MD Nov 22, 2018 13:58
--- NOTE | 2018-11-22 15:07 | RAD ---
Ventilation/perfusion lung scan, 11/22/2018: HISTORY: Dyspnea, hypoxia, elevated d-dimer The ventilation study was performed utilizing 16 mCi of xenon-133. Activity in the lungs is heterogeneous with decreased activity in the right lower chest. There is mild retention of activity in both lung bases on the washout phase. The perfusion imaging was performed utilizing 5.5 mCi of technetium 99m MAA. There is decreased activity in the right lower chest, similar to that seen on the ventilation study. A similar appearance was present on the previous VQ study of 06/02/2018. The CTA exam performed at that time demonstrated emphysema, basilar bronchiectasis, chronic appearing infiltrate and volume loss in the right lower chest with mild shift of the heart to the right. Today's study demonstrates no new perfusion abnormality. IMPRESSION: 1. Abnormal ventilation compatible with emphysema. 2. Abnormal ventilation and perfusion in the right lower chest, similar to that seen on 06/02/2018, probably due to chronic lung disease. 3. No new perfusion abnormality is detected. Electronically signed by: Navarro Liu MD (11/22/2018 3:04 PM) [facility]
--- NOTE | 2018-11-22 15:43 | NUR ---
Wound Care Wound care consult for wound under left breast. Pt has intertrigo with yeasty rash to bilat breasts and pannus. Recommend to use nystatin powder BID and strips of absorbant pads to keep area dry. No other wounds noted on full skin inspection. WC will follow up for possible changes. Pt left on right side with heels floated.
[2018-11-22] MEDS: LACTOBACILLUS RHAMNOSUS GG 1 CAPSULE. PO SCH (20:27)
[2018-11-22] MEDS: ATORVASTATIN CALCIUM 10 MG TABLET. PO SCH (20:28)
--- NOTE | 2018-11-22 23:35 | CONS ---
DATE OF CONSULTATION: 11/22/2018 ATTENDING PHYSICIAN: Sher Munguia M.D. REASON FOR CONSULTATION: The patient seen in Pulmonary consultation at the request of Dr. Munguia for acute on chronic hypercapnic hypoxemic respiratory failure. Initial pH 7.29, PaCO2 of 72 and PaO2 of 78. HISTORY OF PRESENT ILLNESS: The patient is an 78-year-old female well known to me with severe COPD, chronic respiratory failure, previously abnormal CT of the chest. She presented with increasing shortness of breath. She has been at the nursing home facility since September. She was evaluated and found to have influenza A positive serology. Her white count was normal. Arterial blood gas as indicated above. The patient was placed on BiPAP. I was asked to see her in consultation. Chest x-ray revealed some chronic changes and atelectasis in the bases. The patient is currently off of BiPAP. She is awake, alert, following commands but is severely fatigued. PAST MEDICAL HISTORY: Chronic respiratory failure, COPD and previous MRSA bronchitis. She has had a previous CT chest, which was abnormal. She had a mass-like density in the right apex. She had a PET scan, which was negative. PAST SURGICAL HISTORY: No recent major surgeries. REVIEW OF SYSTEMS: As indicated above, otherwise, a 10-point system was reviewed and negative. CONSTITUTIONAL: No fever or chills. EYES: No change in visual acuity. HEENT: No nasal congestion or sore throat. PULMONARY: As indicated above. CARDIOVASCULAR: No chest pain. No pressure. GASTROINTESTINAL: No nausea, vomiting or diarrhea. GENITOURINARY: No dysuria or frequency. MUSCULOSKELETAL: Some generalized weakness, otherwise no localized muscle aches or joint pain. SKIN: No new skin rashes. NEUROLOGICAL: No headaches, diplopia or blurred vision. CURRENT MEDICATIONS: List was reviewed. She is receiving Tamiflu. PHYSICAL EXAMINATION: VITAL SIGNS: Stable. O2 saturation greater than 92%. HEENT: Eyes, the sclerae were nonicteric. NECK: Jugular venous distention was not elevated. No lymphadenopathy. CHEST: Full expansion. LUNGS: Poor airway flow with expiratory wheeze, prolonged expiratory phase. CARDIOVASCULAR: Regular rate and rhythm with S1 and S2. No S3. ABDOMEN: Soft, nontender and nondistended. EXTREMITIES: No clubbing, cyanosis or edema. NEUROLOGICAL: The patient was awake, alert and following commands. A detailed neuro exam was not performed. ASSESSMENT: 1. Lhcns-ob-sylsohp respiratory failure. 2. Positive influenza A. 3. Acute exacerbation of chronic obstructive pulmonary disease. 4. Abnormal x-ray compatible with some atelectasis. 5. History of methicillin-susceptible Staphylococcus aureus bronchitis. 6. Abnormal D-dimer, nonspecific. 7. History of congestive heart failure. PLAN: 1. Recommend continue support with BiPAP p.r.n. 2. The patient seen in consultation by Infectious Disease Service. We will continue Zosyn. 3. Tamiflu. 4. Nebulized treatments. 5. We will make further adjustments depending on the patient's clinical response. 6. IV antibiotics per ID. I do appreciate the privilege in sharing the patient's care. Total cumulative critical care time of 40 minutes. We will continue support and make further recommendation depending on the patient's clinical response. JESSE STRANGE MD DR: ELMA/rito JOB#: [id number] / [id number]
--- NOTE | 2018-11-23 01:27 | CONS ---
DATE OF CONSULTATION: 11/22/2018 REFERRING PHYSICIAN: Dr. Munguia. REASON FOR CONSULTATION: Influenza. HISTORY OF PRESENT ILLNESS: An 78-year-old female presented to the ER from skilled nursing with complaints of worsening shortness of breath and chest pain. This started 45 minutes prior to her admission. She has chronic respiratory failure and is on O2 2 liters at baseline. White count was normal. Creatinine was elevated borderline at 1.3. CK was within normal limits. D-dimer was elevated at 5.95. The patient was febrile earlier this morning at 101.4 with blood pressure dropping at 76/47. Flu screen was done, which returned positive for influenza A. The patient is started on Tamiflu and is on Zosyn. Chest x-ray showed possible somewhat increased left basilar atelectasis, otherwise similar radiographic findings compared to previous one. There is emphysema. There is chronic, blunting of the right costophrenic sulcus. Lactate has been ordered. Blood cultures are done, which are pending at this time. The patient remains on prednisone. Repeat lactate is pending at this time. The patient continues to have shortness of breath, fever earlier as above. Denies any headache, nausea, vomiting, diarrhea, abdominal pain, or symptoms. PAST MEDICAL AND SURGICAL HISTORY: COPD, O2-dependent; skilled nursing resident; CHF; diabetes; hypertension; hyperlipidemia; status post cholecystectomy. ALLERGIES: DOXYCYCLINE. FAMILY HISTORY: Diabetes. SOCIAL HISTORY: Lives at a skilled nursing. Used to smoke, quit smoking. No ETOH. MEDICATIONS: Tamiflu 30 mg b.i.d. one dose of Zosyn. Please refer MRAD. REVIEW OF SYSTEMS: Negative except for above in HPI. PHYSICAL EXAMINATION: VITAL SIGNS: Temperature 99.1, pulse 76, respiratory rate 45, blood pressure 110/53. The patient is on BiPAP, currently satting at 95%, T-max 101. GENERAL: Alert, awake female in moderate respiratory distress, on BiPAP. HEENT: Normocephalic, atraumatic. Anicteric. Oral mucosa moist. No oropharyngeal exudate. NECK: Supple. LUNGS: Decreased breath sounds at the bases, some expiratory wheezing. HEART: S1, S2. ABDOMEN: Soft, bowel sounds present, nontender, nondistended. No rebound, no guarding. EXTREMITIES: No edema, no cyanosis. Musculoskeletal changes suggestive of DJD. NEUROLOGIC: Alert, awake, moves all four extremities. DERMATOLOGIC: Warm, dry, no generalized rash. PSYCHIATRIC: Cooperative. LABORATORY DATA: WBC 9.4, hemoglobin 13.0, hematocrit 40.8, platelets 218, neutrophil 84. Sodium 142, potassium 4.5, chloride 101, bicarbonate 35, BUN 40, creatinine 1.3, glucose 213. Lactate was 2.4, repeat is 2.2. Troponin 0.077. BNP 220, lipase 163. IMAGING: Chest x-ray as above. MICRO: None. IMPRESSION: 1. Sepsis from pulmonary infection 2. Influenza A positive. 3. Lactic acidosis. 4. Eiggz-sb-abiopyf respiratory failure. 5. Left basal atelectasis. 6. History of chronic obstructive pulmonary disease, on O2 at skilled nursing. 7. Elevated D-dimer. 8. History of congestive heart failure. 9. Ex-Smoker. 10. Diabetes. . 11. Anemia. 12. Severe protein-calorie malnutrition. RECOMMENDATIONS: 1. Continue Tamiflu., renal dosing. 2. We will restart the Zosyn., renal dosing. 3. Obtain sputum culture and Gram stain. 4. Obtain blood culture. 5. Follow up labs in a.m. and cultures. 6. Continue supportive care. Discussed with RN. Thank you for consulting Infectious Disease to participate in this patient's care. If you have any questions, do not hesitate to contact me. SUNG NORTON MD DR: TRACI/rito JOB#: [id number] / [id number] ZULMA
[2018-11-23] MEDS: ALPRAZolam 0.25 MG TABLET PO PRN (02:42)
[2018-11-23 04:28] VITALS: BP 107/51
[2018-11-23] MEDS: PIPERACILLIN/TAZOBACTAM 3.375 GM in IV NORMAL SALINE 50ML 50 ML IV SCH ×3 (05:27→17:30)
[2018-11-23 05:39] LABS: HEMATOCRIT 36.5 % (36.0-47.0); HEMOGLOBIN 11.4 g/dL (12.0-15.5); RED BLOOD COUNT 4.26 x10^6/uL (3.50-5.40)
[2018-11-23 06:18] LABS: ALBUMIN/GLOBULIN RATIO 0.5 (1.0-1.7); CREATININE 2.9 mg/dL (0.6-1.0); GFR 15.6; POTASSIUM 4.8 mmol/L (3.5-5.1); TOTAL BILIRUBIN 0.5 mg/dL (0.2-1.0); TOTAL PROTEIN 6.3 g/dL (6.4-8.2)
[2018-11-23 07:30] VITALS: BP 119/58
--- NOTE | 2018-11-23 07:31 | PDOC ---
Infectious Disease Note Subjective: Subjective Pt remains on bipap low grade temp arousable but goes back to sleep D/W RN No n/v/d/abdo pain ROS: ROS Negative except for above. Vital Signs: Vital Signs Vital Signs Date Time Temp Pulse Resp B/P (MAP) Pulse Ox O2 Delivery O2 Flow Rate FiO2 11/23/18 04:28 97.7 79 30 107/51 (69) 97 BiPAP/CPAP 97.7 11/22/18 19:57 3.0 Physical Exam: PHYSICAL EXAM GENERAL: sleepy female arousable on BiPAP. HEENT: Normocephalic, atraumatic. Anicteric. Oral mucosa moist. No oropharyngeal exudate. NECK: Supple. LUNGS: coarse bs, some expiratory wheezing. HEART: S1, S2. irregular ABDOMEN: Soft, bowel sounds present, nontender, nondistended. No rebound, no guarding. EXTREMITIES: No edema, no cyanosis. Musculoskeletal changes suggestive of DJD. NEUROLOGIC: on bipap DERMATOLOGIC: Warm, dry, no generalized rash. Medications: Inpatient Meds: Current Medications Medications (Trade) Dose Ordered Sig/Eva Start Time Stop Time Status Last Admin Dose Admin Acetaminophen (Tylenol) 650 mg PRN TID PRN 11/22/18 01:45 11/22/18 09:49 650 MG Albuterol Sulfate (Ventolin Neb Soln) 2.5 mg PRN Q4HRS PRN 11/22/18 01:45 11/23/18 03:43 2.5 MG Albuterol/ Ipratropium (Duoneb) 3 ml 1X ONCE 11/21/18 22:00 11/21/18 22:01 DC 11/21/18 22:14 3 ML Alprazolam (Xanax) 0.25 mg PRN Q6HRS PRN 11/22/18 01:45 11/23/18 02:42 0.25 MG Aspirin (Wayne Aspirin) 325 mg 1X ONCE 11/21/18 20:00 11/21/18 20:01 DC 11/21/18 19:55 325 MG Aspirin (Ecotrin) 81 mg [id number] 11/22/18 08:00 11/22/18 09:49 81 MG Atorvastatin Calcium (Lipitor) 5 mg QHS 11/22/18 21:00 11/22/18 20:28 5 MG Budesonide (Pulmicort) 0.5 mg RTBID 11/21/18 23:45 11/22/18 19:32 0.5 MG Carvedilol (Coreg) 6.25 mg BIDWMEALS 11/22/18 08:00 11/22/18 18:47 6.25 MG Dextrose (Dextrose 50%-Water Syringe) 12.5 gm PRN Q15MIN PRN 11/21/18 21:15 Enoxaparin Sodium (Lovenox 100mg Syringe) 90 mg 1X ONCE 11/21/18 22:00 11/21/18 22:01 DC 11/21/18 22:50 90 MG Ferrous Sulfate (Feosol) 325 mg DAILY 11/22/18 09:00 11/22/18 09:56 325 MG Guaifenesin (Mucinex) 600 mg BID 11/22/18 09:00 11/22/18 20:27 600 MG Insulin Human Lispro (HumaLOG) 0-5 UNITS TIDWMEALS 11/22/18 08:00 Labetalol HCl (Normodyne Iv Push) 20 mg PRN Q6HRS PRN 11/22/18 00:00 Lactobacillus Rhamnosus (Culturelle) 1 cap BID 11/22/18 21:00 11/22/18 20:27 1 CAP Lorazepam (Ativan) 0.5 mg PRN Q6HRS PRN 11/22/18 00:00 11/22/18 14:42 DC Magnesium Hydroxide (Milk Of Magnesia) 2,400 mg PRN Q12HR PRN 11/22/18 01:45 Morphine Sulfate (Morphine Sulfate) 2 mg PRN Q4HRS PRN 11/22/18 03:15 11/22/18 03:24 2 MG Nystatin (Nystop) 1 jaison BID 11/22/18 11:00 11/22/18 23:37 1 JAISON Ondansetron HCl (Zofran) 4 mg PRN Q8HRS PRN 11/21/18 21:15 11/22/18 21:14 DC Oseltamivir Phosphate (Tamiflu) 30 mg BID 11/22/18 12:00 11/27/18 11:59 11/22/18 20:28 30 MG Oxymetazoline HCl (Afrin) 1 spray PRN Q2HR PRN 11/22/18 01:45 Piperacillin Sod/ Tazobactam Sod (Zosyn Per Pharmacy) 1 each PRN DAILY PRN 11/22/18 12:15 11/22/18 12:24 DC Piperacillin Sod/ Tazobactam Sod 3.375 gm/Sodium Chloride 50 ml @ 100 mls/hr Q6HRS 11/22/18 10:00 11/23/18 05:27 100 MLS/HR Potassium Chloride (Klor-Con) 40 meq DAILY08 11/22/18 08:00 11/22/18 10:01 40 MEQ Prednisone (Prednisone) 10 mg DAILY 11/22/18 09:00 11/22/18 09:49 10 MG Sodium Chloride 1,000 ml @ 250 mls/hr 1X ONCE 11/22/18 11:00 11/22/18 14:59 DC 11/22/18 11:37 250 MLS/HR Torsemide (Demadex) 40 mg [id number] 11/22/18 09:00 11/22/18 16:11 40 MG Labs: Lab Laboratory Tests Test 11/22/18 07:52 11/22/18 08:15 11/22/18 08:55 11/22/18 10:00 Glucose (Fingerstick) 115 mg/dL (70-99) O2 Saturation 94 % (92-99) Arterial Blood pH 7.32 (7.35-7.45) Arterial Blood pCO2 at Patient Temp 56 mmHg (35-46) Arterial Blood pO2 at Patient Temp 78 mmHg (65-108) Arterial Blood HCO3 28 mmol/L (21-28) Arterial Blood Base Excess 1 mmol/L (-3-3) FiO2 45 Lactic Acid Level 2.2 mmol/L (0.4-2.0) Influenza Type A Antigen Positive (NEGATIVE) Influenza Type B Antigen Negative (NEGATIVE) Test 11/22/18 11:59 11/22/18 13:45 11/22/18 16:34 11/22/18 19:00 Glucose (Fingerstick) 163 mg/dL (70-99) 158 mg/dL (70-99) Lactic Acid Level 4.1 mmol/L (0.4-2.0) 2.2 mmol/L (0.4-2.0) Test 11/22/18 21:06 11/23/18 04:46 Glucose (Fingerstick) 153 mg/dL (70-99) White Blood Count 7.0 x10^3/uL (4.0-11.0) Red Blood Count 4.26 x10^6/uL (3.50-5.40) Hemoglobin 11.4 g/dL (12.0-15.5) Hematocrit 36.5 % (36.0-47.0) Mean Corpuscular Volume 86 fL (79-100) Mean Corpuscular Hemoglobin 27 pg (25-35) Mean Corpuscular Hemoglobin Concent 31 g/dL (31-37) Red Cell Distribution Width 16.0 % (11.5-14.5) Platelet Count 158 x10^3/uL (140-400) Sodium Level 142 mmol/L (136-145) Potassium Level 4.8 mmol/L (3.5-5.1) Chloride Level 103 mmol/L (98-107) Carbon Dioxide Level 23 mmol/L (21-32) Anion Gap 16 (6-14) Blood Urea Nitrogen 66 mg/dL (7-20) Creatinine 2.9 mg/dL (0.6-1.0) Estimated GFR (Cockcroft-Gault) 15.6 BUN/Creatinine Ratio 23 (6-20) Glucose Level 135 mg/dL (70-99) Lactic Acid Level 1.8 mmol/L (0.4-2.0) Calcium Level 8.0 mg/dL (8.5-10.1) Total Bilirubin 0.5 mg/dL (0.2-1.0) Aspartate Amino Transf (AST/SGOT) 126 U/L (15-37) Alanine Aminotransferase (ALT/SGPT) 48 U/L (14-59) Alkaline Phosphatase 68 U/L (46-116) Total Protein 6.3 g/dL (6.4-8.2) Albumin 2.0 g/dL (3.4-5.0) Albumin/Globulin Ratio 0.5 (1.0-1.7) Objective: Assessment: Sepsis pulm source Febrile illness,pattern improving Influenza A positive lactic acidosis acute on chronic hypoxic resp failure elevated d dimer,Vq scan neg for PE COPD on home O2 NH resident DM h/o CHF Anemia Plan: Plan of Care tamiflu zosyn f/u cults and labs in am cont supportive care SUNG NORTON MD Nov 23, 2018 07:31
--- NOTE | 2018-11-23 07:36 | PDOC ---
PROGRESS NOTES Chief Complaint Chief Complaint Ypten-oh-vxadrvy respiratory failure Sepsis secondary to influenza A, pneumonia Influenza A Pneumonia, HCAP History of COPD Elevated D dimer [id number] protein-calorie malnutrition Hypothyroidism (TSH > 6) ?Diastolic CHF (BNP 220) History of Present Illness History of Present Illness Ms. Schwartz is a 78 yo female with multiple hospitalizations, history of COPD, presenting with worsening shortness of breath, found to have elevated D-Dimer, pneumonia and influenza A positive from her SN[facility]. Patient remains short of breath in acute distress. Discussed with nurse. Patient is febrile - Tmax of 101.4. ID and Pulmonology, ID consulted. Patient seen and examined on BiPAP (IPAP 22, EPAP 8, RR 24, FiO2 of 45%). Lactate peaked at 4, back down to 1.8 today. Cr. up to 2.9. Plan: 500cc bolus. Avoid nephrotoxic meds Increase nebs Cont flu and pneumonia treatment Try to wean BIPAP as tolerated Vitals Vitals Vital Signs Date Time Temp Pulse Resp B/P (MAP) Pulse Ox O2 Delivery O2 Flow Rate FiO2 11/23/18 04:28 97.7 79 30 107/51 (69) 97 BiPAP/CPAP 97.7 11/22/18 19:57 3.0 Physical Exam General: Alert, Cooperative, moderate distress (patient short of breath, on BiPAP) Heart: Regular rate, No murmurs Lungs: Wheezing, Other (rales and rhonchi all lung lynn) Abdomen: Normal bowel sounds, Soft, No tenderness Extremities: No clubbing, No cyanosis Skin: No rashes, No significant lesion Labs LABS Laboratory Tests Test 11/22/18 07:52 11/22/18 08:15 11/22/18 08:55 11/22/18 10:00 Glucose (Fingerstick) 115 mg/dL (70-99) O2 Saturation 94 % (92-99) Arterial Blood pH 7.32 (7.35-7.45) Arterial Blood pCO2 at Patient Temp 56 mmHg (35-46) Arterial Blood pO2 at Patient Temp 78 mmHg (65-108) Arterial Blood HCO3 28 mmol/L (21-28) Arterial Blood Base Excess 1 mmol/L (-3-3) FiO2 45 Lactic Acid Level 2.2 mmol/L (0.4-2.0) Influenza Type A Antigen Positive (NEGATIVE) Influenza Type B Antigen Negative (NEGATIVE) Test 11/22/18 11:59 11/22/18 13:45 11/22/18 16:34 11/22/18 19:00 Glucose (Fingerstick) 163 mg/dL (70-99) 158 mg/dL (70-99) Lactic Acid Level 4.1 mmol/L (0.4-2.0) 2.2 mmol/L (0.4-2.0) Test 11/22/18 21:06 11/23/18 04:46 Glucose (Fingerstick) 153 mg/dL (70-99) White Blood Count 7.0 x10^3/uL (4.0-11.0) Red Blood Count 4.26 x10^6/uL (3.50-5.40) Hemoglobin 11.4 g/dL (12.0-15.5) Hematocrit 36.5 % (36.0-47.0) Mean Corpuscular Volume 86 fL (79-100) Mean Corpuscular Hemoglobin 27 pg (25-35) Mean Corpuscular Hemoglobin Concent 31 g/dL (31-37) Red Cell Distribution Width 16.0 % (11.5-14.5) Platelet Count 158 x10^3/uL (140-400) Sodium Level 142 mmol/L (136-145) Potassium Level 4.8 mmol/L (3.5-5.1) Chloride Level 103 mmol/L (98-107) Carbon Dioxide Level 23 mmol/L (21-32) Anion Gap 16 (6-14) Blood Urea Nitrogen 66 mg/dL (7-20) Creatinine 2.9 mg/dL (0.6-1.0) Estimated GFR (Cockcroft-Gault) 15.6 BUN/Creatinine Ratio 23 (6-20) Glucose Level 135 mg/dL (70-99) Lactic Acid Level 1.8 mmol/L (0.4-2.0) Calcium Level 8.0 mg/dL (8.5-10.1) Total Bilirubin 0.5 mg/dL (0.2-1.0) Aspartate Amino Transf (AST/SGOT) 126 U/L (15-37) Alanine Aminotransferase (ALT/SGPT) 48 U/L (14-59) Alkaline Phosphatase 68 U/L (46-116) Total Protein 6.3 g/dL (6.4-8.2) Albumin 2.0 g/dL (3.4-5.0) Albumin/Globulin Ratio 0.5 (1.0-1.7) Assessment and Plan Assessmemt and Plan Problems Medical Problems: (1) Elevated d-dimer Status: Acute Comment Review of Relevant I have reviewed the following items j[place] (where applicable) has been applied. Labs Laboratory Tests Test 11/21/18 18:15 11/21/18 19:40 11/22/18 00:10 11/22/18 02:30 White Blood Count 9.4 x10^3/uL (4.0-11.0) Red Blood Count 4.76 x10^6/uL (3.50-5.40) Hemoglobin 13.0 g/dL (12.0-15.5) Hematocrit 40.8 % (36.0-47.0) Mean Corpuscular Volume 86 fL (79-100) Mean Corpuscular Hemoglobin 27 pg (25-35) Mean Corpuscular Hemoglobin Concent 32 g/dL (31-37) Red Cell Distribution Width 15.8 % (11.5-14.5) Platelet Count 218 x10^3/uL (140-400) Neutrophils (%) (Auto) 84 % (31-73) Lymphocytes (%) (Auto) 8 % (24-48) Monocytes (%) (Auto) 5 % (0-9) Eosinophils (%) (Auto) 2 % (0-3) Basophils (%) (Auto) 1 % (0-3) Neutrophils # (Auto) 7.9 x10^3uL (1.8-7.7) Lymphocytes # (Auto) 0.8 x10^3/uL (1.0-4.8) Monocytes # (Auto) 0.4 x10^3/uL (0.0-1.1) Eosinophils # (Auto) 0.2 x10^3/uL (0.0-0.7) Basophils # (Auto) 0.1 x10^3/uL (0.0-0.2) Sodium Level 142 mmol/L (136-145) Potassium Level 4.5 mmol/L (3.5-5.1) Chloride Level 101 mmol/L (98-107) Carbon Dioxide Level 35 mmol/L (21-32) Anion Gap 6 (6-14) Blood Urea Nitrogen 40 mg/dL (7-20) Creatinine 1.3 mg/dL (0.6-1.0) Estimated GFR (Cockcroft-Gault) 39.4 BUN/Creatinine Ratio 31 (6-20) Glucose Level 213 mg/dL (70-99) Calcium Level 8.4 mg/dL (8.5-10.1) Magnesium Level 2.0 mg/dL (1.8-2.4) Total Bilirubin 0.6 mg/dL (0.2-1.0) Aspartate Amino Transf (AST/SGOT) 26 U/L (15-37) Alanine Aminotransferase (ALT/SGPT) 19 U/L (14-59) Alkaline Phosphatase 89 U/L (46-116) Creatine Kinase 47 U/L (26-192) Creatine Kinase MB (Mass) < 0.5 ng/mL (0.0-3.6) Creatine Kinase MB Relative Index % (0-4) Troponin I Quantitative < 0.017 ng/mL (0.000-0.055) < 0.017 ng/mL (0.000-0.055) YY-Mww-B-Type Natriuretic Peptide 220 pg/mL (0-449) Total Protein 7.0 g/dL (6.4-8.2) Albumin 2.5 g/dL (3.4-5.0) Albumin/Globulin Ratio 0.6 (1.0-1.7) Lipase 163 U/L (73-393) Prothrombin Time 13.6 SEC (11.7-14.0) Prothromb Time International Ratio 1.1 (0.8-1.1) D-Dimer (Sangeetha) 5.95 ug/mlFEU (0.00-0.50) O2 Saturation 93 % (92-99) Arterial Blood pH 7.29 (7.35-7.45) Arterial Blood pCO2 at Patient Temp 72 mmHg (35-46) Arterial Blood pO2 at Patient Temp 78 mmHg (65-108) Arterial Blood HCO3 34 mmol/L (21-28) Arterial Blood Base Excess 5 mmol/L (-3-3) FiO2 45 Test 11/22/18 03:05 11/22/18 04:50 11/22/18 05:52 11/22/18 07:52 Troponin I Quantitative 0.077 ng/mL (0.000-0.055) Triglycerides Level 48 mg/dL (0-150) Cholesterol Level 132 mg/dL (0-200) LDL Cholesterol, Calculated 72 mg/dL (0-100) VLDL Cholesterol, Calculated 10 mg/dL (0-40) Non-HDL Cholesterol Calculated 82 mg/dL (0-129) HDL Cholesterol 50 mg/dL (40-60) Cholesterol/HDL Ratio 2.6 Lactic Acid Level 2.4 mmol/L (0.4-2.0) Glucose (Fingerstick) 109 mg/dL (70-99) 115 mg/dL (70-99) Test 11/22/18 08:15 11/22/18 08:55 11/22/18 10:00 11/22/18 11:59 O2 Saturation 94 % (92-99) Arterial Blood pH 7.32 (7.35-7.45) Arterial Blood pCO2 at Patient Temp 56 mmHg (35-46) Arterial Blood pO2 at Patient Temp 78 mmHg (65-108) Arterial Blood HCO3 28 mmol/L (21-28) Arterial Blood Base Excess 1 mmol/L (-3-3) FiO2 45 Lactic Acid Level 2.2 mmol/L (0.4-2.0) Influenza Type A Antigen Positive (NEGATIVE) Influenza Type B Antigen Negative (NEGATIVE) Glucose (Fingerstick) 163 mg/dL (70-99) Test 11/22/18 13:45 11/22/18 16:34 11/22/18 19:00 11/22/18 21:06 Lactic Acid Level 4.1 mmol/L (0.4-2.0) 2.2 mmol/L (0.4-2.0) Glucose (Fingerstick) 158 mg/dL (70-99) 153 mg/dL (70-99) Test 11/23/18 04:46 White Blood Count 7.0 x10^3/uL (4.0-11.0) Red Blood Count 4.26 x10^6/uL (3.50-5.40) Hemoglobin 11.4 g/dL (12.0-15.5) Hematocrit 36.5 % (36.0-47.0) Mean Corpuscular Volume 86 fL (79-100) Mean Corpuscular Hemoglobin 27 pg (25-35) Mean Corpuscular Hemoglobin Concent 31 g/dL (31-37) Red Cell Distribution Width 16.0 % (11.5-14.5) Platelet Count 158 x10^3/uL (140-400) Sodium Level 142 mmol/L (136-145) Potassium Level 4.8 mmol/L (3.5-5.1) Chloride Level 103 mmol/L (98-107) Carbon Dioxide Level 23 mmol/L (21-32) Anion Gap 16 (6-14) Blood Urea Nitrogen 66 mg/dL (7-20) Creatinine 2.9 mg/dL (0.6-1.0) Estimated GFR (Cockcroft-Gault) 15.6 BUN/Creatinine Ratio 23 (6-20) Glucose Level 135 mg/dL (70-99) Lactic Acid Level 1.8 mmol/L (0.4-2.0) Calcium Level 8.0 mg/dL (8.5-10.1) Total Bilirubin 0.5 mg/dL (0.2-1.0) Aspartate Amino Transf (AST/SGOT) 126 U/L (15-37) Alanine Aminotransferase (ALT/SGPT) 48 U/L (14-59) Alkaline Phosphatase 68 U/L (46-116) Total Protein 6.3 g/dL (6.4-8.2) Albumin 2.0 g/dL (3.4-5.0) Albumin/Globulin Ratio 0.5 (1.0-1.7) Laboratory Tests Test 11/22/18 07:52 11/22/18 08:15 11/22/18 08:55 11/22/18 10:00 Glucose (Fingerstick) 115 mg/dL (70-99) O2 Saturation 94 % (92-99) Arterial Blood pH 7.32 (7.35-7.45) Arterial Blood pCO2 at Patient Temp 56 mmHg (35-46) Arterial Blood pO2 at Patient Temp 78 mmHg (65-108) Arterial Blood HCO3 28 mmol/L (21-28) Arterial Blood Base Excess 1 mmol/L (-3-3) FiO2 45 Lactic Acid Level 2.2 mmol/L (0.4-2.0) Influenza Type A Antigen Positive (NEGATIVE) Influenza Type B Antigen Negative (NEGATIVE) Test 11/22/18 11:59 11/22/18 13:45 11/22/18 16:34 11/22/18 19:00 Glucose (Fingerstick) 163 mg/dL (70-99) 158 mg/dL (70-99) Lactic Acid Level 4.1 mmol/L (0.4-2.0) 2.2 mmol/L (0.4-2.0) Test 11/22/18 21:06 11/23/18 04:46 Glucose (Fingerstick) 153 mg/dL (70-99) White Blood Count 7.0 x10^3/uL (4.0-11.0) Red Blood Count 4.26 x10^6/uL (3.50-5.40) Hemoglobin 11.4 g/dL (12.0-15.5) Hematocrit 36.5 % (36.0-47.0) Mean Corpuscular Volume 86 fL (79-100) Mean Corpuscular Hemoglobin 27 pg (25-35) Mean Corpuscular Hemoglobin Concent 31 g/dL (31-37) Red Cell Distribution Width 16.0 % (11.5-14.5) Platelet Count 158 x10^3/uL (140-400) Sodium Level 142 mmol/L (136-145) Potassium Level 4.8 mmol/L (3.5-5.1) Chloride Level 103 mmol/L (98-107) Carbon Dioxide Level 23 mmol/L (21-32) Anion Gap 16 (6-14) Blood Urea Nitrogen 66 mg/dL (7-20) Creatinine 2.9 mg/dL (0.6-1.0) Estimated GFR (Cockcroft-Gault) 15.6 BUN/Creatinine Ratio 23 (6-20) Glucose Level 135 mg/dL (70-99) Lactic Acid Level 1.8 mmol/L (0.4-2.0) Calcium Level 8.0 mg/dL (8.5-10.1) Total Bilirubin 0.5 mg/dL (0.2-1.0) Aspartate Amino Transf (AST/SGOT) 126 U/L (15-37) Alanine Aminotransferase (ALT/SGPT) 48 U/L (14-59) Alkaline Phosphatase 68 U/L (46-116) Total Protein 6.3 g/dL (6.4-8.2) Albumin 2.0 g/dL (3.4-5.0) Albumin/Globulin Ratio 0.5 (1.0-1.7) Medications Current Medications Albuterol/ Ipratropium (Duoneb) 3 ml STK-MED ONCE .ROUTE ; Start 11/21/18 at 18: 13; Stop 11/21/18 at 18:14; Status DC Aspirin ([place] Aspirin) 325 mg 1X ONCE PO Last administered on 11/21/18at 19:55 ; Start 11/21/18 at 20:00; Stop 11/21/18 at 20:01; Status DC Ondansetron HCl (Zofran) 4 mg PRN Q8HRS PRN IV NAUSEA/VOMITING; Start 11/21/18 at 21:15; Stop 11/22/18 at 21:14; Status DC Albuterol/ Ipratropium (Duoneb) 3 ml RTQID NEB Last administered on 11/22/18at 19 :32; Start 11/22/18 at 08:00; Stop 11/23/18 at 07:59 Insulin Human Lispro (HumaLOG) 0-5 UNITS TIDWMEALS SQ ; Start 11/22/18 at 08:00 Dextrose (Dextrose 50%-Water Syringe) 12.5 gm PRN Q15MIN PRN IV SEE COMMENTS; Start 11/21/18 at 21:15 Enoxaparin Sodium (Lovenox 100mg Syringe) 90 mg 1X ONCE SQ Last administered on 11/21/18at 22:50; Start 11/21/18 at 22:00; Stop 11/21/18 at 22:01; Status DC Albuterol/ Ipratropium (Duoneb) 3 ml 1X ONCE NEB Last administered on at 22:14; Start 11/21/18 at 22:00; Stop 11/21/18 at 22:01; Status DC Budesonide (Pulmicort) 0.5 mg RTBID NEB Last administered on 11/22/18at 19:32; Start 11/21/18 at 23:45 Labetalol HCl (Normodyne Iv Push) 10 mg PRN Q4HRS PRN IVP HYPERTENSION, SEE COMMENTS; Start 11/22/18 at 00:00 Lorazepam (Ativan) 0.5 mg PRN Q6HRS PRN IV ANXIETY / AGITATION Last administered on 11/22/18at 23:37; Start 11/22/18 at 00:00 Labetalol HCl (Normodyne Iv Push) 20 mg PRN Q6HRS PRN IVP HYPERTENSION, SEE COMMENTS; Start 11/22/18 at 00:00 Lorazepam (Ativan) 0.5 mg PRN Q6HRS PRN IV ANXIETY / AGITATION; Start 11/22/18 at 00:00; Stop 11/22/18 at 14:42; Status DC Acetaminophen (Tylenol) 650 mg PRN TID PRN PO PAIN Last administered on 09:49; Start 11/22/18 at 01:45 Alprazolam (Xanax) 0.25 mg PRN Q6HRS PRN PO ANXIETY / AGITATION Last administered on 11/23/18 02:42; Start 11/22/18 at 01:45 Aspirin (Ecotrin) 81 mg DAILYWBKFT PO Last administered on 11/22/18 09:49; Start 11/22/18 at 08:00 Carvedilol (Coreg) 6.25 mg BIDWMEALS PO Last administered on 11/22/18 18:47; Start 11/22/18 at 08:00 Ferrous Sulfate (Feosol) 325 mg DAILY PO Last administered on 11/22/18 09:56; Start 11/22/18 at 09:00 Guaifenesin (Mucinex) 600 mg BID PO Last administered on 11/22/18 20:27; Start 11/22/18 at 09:00 Albuterol Sulfate (Ventolin Neb Soln) 2.5 mg PRN Q4HRS PRN NEB CONGESTION Last administered on 11/23/18 03:43; Start 11/22/18 at 01:45 Magnesium Hydroxide (Milk Of Magnesia) 2,400 mg PRN Q12HR PRN PO CONSTIPATION; Start 11/22/18 at 01:45 Prednisone (Prednisone) 10 mg DAILY PO Last administered on 11/22/18 09:49; Start 11/22/18 at 09:00 Oxymetazoline HCl (Afrin) 1 spray PRN Q2HR PRN NS nose bleeds; Start 11/22/18 at 01:45 Potassium Chloride (Klor-Con) 40 meq DAILY08 PO Last administered on 11/22/18at 10:01; Start 11/22/18 at 08:00 Atorvastatin Calcium (Lipitor) 5 mg QHS PO Last administered on 11/22/18 20:28 ; Start 11/22/18 at 21:00 Torsemide (Demadex) 40 mg BID92 PO Last administered on 11/22/18 16:11; Start 11/22/18 at 09:00 Morphine Sulfate (Morphine Sulfate) 2 mg PRN Q4HRS PRN IV PAIN Last administered on 11/22/18 03:24; Start 11/22/18 at 03:15 Piperacillin Sod/ Tazobactam Sod (Zosyn Per Pharmacy) 1 each PRN DAILY PRN MC SEE COMMENTS; Start 11/22/18 at 09:00 Piperacillin Sod/ Tazobactam Sod 3.375 gm/Sodium Chloride 50 ml @ 100 mls/hr Q6HRS IV Last administered on 11/23/18 05:27; Start 11/22/18 at 10:00 Nystatin (Nystop) 1 jaison BID TP Last administered on 11/22/18at 23:37; Start at 11:00 Sodium Chloride 1,000 ml @ 250 mls/hr 1X ONCE IV Last administered on 11:37; Start 11/22/18 at 11:00; Stop 11/22/18 at 14:59; Status DC Oseltamivir Phosphate (Tamiflu) 30 mg BID PO Last administered on 11/22/18 20: 28; Start 11/22/18 at 12:00; Stop 11/27/18 at 11:59 Piperacillin Sod/ Tazobactam Sod (Zosyn Per Pharmacy) 1 each PRN DAILY PRN MC SEE COMMENTS; Start 11/22/18 at 12:15; Stop 11/22/18 at 12:24; Status DC Lactobacillus Rhamnosus (Culturelle) 1 cap BID PO Last administered on at 20:27; Start 11/22/18 at 21:00 Active Scripts Active Prednisone (Prednisone) 10 Mg Tablet 10 Mg PO UD Take 5 tablets by mouth daily for 2 days, then take 4 tablets by mouth daily for 2 days, then take 3 tablets by mouth daily for 2 days, then take 2 tablets by mouth daily for 2 days, then take 1 tablets by mouth daily for 2 days, then stop. Milk Of Magnesia (Magnesium Hydroxide) 400 Mg/5 Ml Oral.susp 2,400 Mg PO PRN Q12HR PRN 10 Days Reported Potassium Chloride 20 Meq Tablet.er 40 Meq PO DAILY Mucinex (Guaifenesin) 600 Mg Tablet.er 1 Tab PO BID Xanax (Alprazolam) 0.25 Mg Tablet 0.25 Mg PO PRN Q6HRS PRN Afrin (Oxymetazoline Hcl) 30 Ml [place] 30 Ml NS PRN Q2HR PRN Tylenol (Acetaminophen) 325 Mg Tablet 650 Mg PO TID PRN PRN Aspir 81 (Aspirin) 81 Mg Tablet. 1 Tab PO DAILY Iron Supplement (Ferrous Sulfate) 325 Mg Tablet 1 Tab PO DAILY Advair 250-50 Diskus (Fluticasone/Salmeterol) 1 Each Disk.w.dev 1 Puff IH BID Duoneb 0.5-3(2.5) Mg/3 Ml (Albuterol/Ipratropium) 3 Ml Ampul.neb 3 Ml IH Q4HRS PRN Pravastatin Sodium 10 Mg Tablet 1 Tab PO QHS Carvedilol (Carvedilol) 6.25 Mg Tablet 1 Tab PO BID Torsemide 20 Mg Tablet 40 Mg PO BID Vitals/I & O Vital Sign - Last 24 Hours 11/22/18 11/22/18 11/22/18 11/22/18 08:00 08:15 09:52 11:00 Temp 99.1 99.1 Pulse 98 76 Resp 45 B/P (MAP) 110/53 (72) Pulse Ox 93 95 O2 Delivery Bi-pap BiPAP/CPAP BiPAP/CPAP O2 Flow Rate 15.0 11/22/18 11/22/18 11/22/18 11/22/18 11:23 15:00 15:28 18:47 Temp 97.8 97.8 Pulse 78 78 B/P (MAP) 117/54 (75) Pulse Ox 96 99 97 O2 Delivery BiPAP/CPAP BiPAP/CPAP 11/22/18 11/22/18 11/22/18 11/22/18 19:33 19:47 19:57 20:00 Temp 97.9 97.9 Pulse 77 Resp 20 B/P (MAP) 110/55 (73) Pulse Ox 95 97 O2 Delivery Nasal Cannula Bi-pap Nasal Cannula BiPAP/CPAP O2 Flow Rate 3.0 3.0 3.0 11/22/18 11/22/18 11/23/18 11/23/18 22:33 23:17 02:00 03:43 Temp 97.8 97.8 Pulse 78 Resp 24 B/P (MAP) 103/51 (68) Pulse Ox 98 97 97 97 O2 Delivery BiPAP/CPAP BiPAP/CPAP BiPAP/CPAP BiPAP/CPAP 11/23/18 11/23/18 03:59 04:28 Temp 97.7 97.7 Pulse 79 Resp 30 B/P (MAP) 107/51 (69) Pulse Ox 97 O2 Delivery BiPAP/CPAP BiPAP/CPAP Intake and Output 11/22/18 11/22/18 11/23/18 14:59 22:59 06:59 Intake Total 1170 ml 400 ml Output Total 300 ml Balance 870 ml 400 ml KAYE LANDA MD Nov 23, 2018 07:36
[2018-11-23] MEDS: BUDESONIDE 0.5 MG/2 ML NEBU. NEB SCH ×2 (07:44→20:45)
[2018-11-23] MEDS: IPRATRPIUM/ALBUTEROL 0.5/2.5MG 3 ML NEBU. NEB SCH ×4 (07:44→20:45)
[2018-11-23] MEDS: INSULIN LISPRO 300 UNITS/3 ML INSULN.PEN. SQ SCH ×3 (08:00→17:00)
[2018-11-23] MEDS: OSELTAMIVIR 30 MG CAPSULE PO SCH ×2 (08:39→21:24)
[2018-11-23] MEDS: CARVEDILOL 6.25 MG TABLET. PO SCH ×2 (08:40→17:30)
[2018-11-23] MEDS: ASPIRIN ENTERIC COATED 81 MG TABLET.DR. PO SCH (08:41)
[2018-11-23] MEDS: predniSONE 10 MG TABLET PO SCH (08:41)
[2018-11-23] MEDS: POTASSIUM CHLORIDE 20 MEQ TABLET.ER. PO SCH (08:42)
[2018-11-23] MEDS: LACTOBACILLUS RHAMNOSUS GG 1 CAPSULE. PO SCH ×2 (08:42→21:24)
[2018-11-23] MEDS: FERROUS SULFATE 325 MG TABLET. PO SCH (08:42)
[2018-11-23] MEDS: NYSTATIN TOPICAL POWDER 15GM BOTTLE. TP SCH ×2 (08:50→21:00)
--- NOTE | 2018-11-23 09:46 | NUR ---
IP: In addition to contact precautions, pt needs droplet precautions for 5 days and 24 hours without a fever, whichever is longest due to influenza.
--- NOTE | 2018-11-23 10:05 | PDOC ---
PULMONARY PROGRESS NOTES Subjective PT WEAKER TODAY NOT MORE SOA Vitals Vital Signs Date Time Temp Pulse Resp B/P (MAP) Pulse Ox O2 Delivery O2 Flow Rate FiO2 11/23/18 09:25 95 BiPAP/CPAP 11/23/18 08:40 77 119/58 11/23/18 07:30 99.4 99.4 11/23/18 04:28 30 11/22/18 19:57 3.0 ROS: No Nausea, No Chest Pain, No Abdominal Pain, No Increase Cough General: Alert, No acute distress Lungs: Wheezing Cardiovascular: S1, S2 Abdomen: Soft, Non-tender Neuro Exam: Alert Extremities: No Edema, Other Skin: Warm Labs Laboratory Tests Test 11/21/18 18:15 11/21/18 19:40 11/22/18 00:10 11/22/18 02:30 White Blood Count 9.4 x10^3/uL (4.0-11.0) Red Blood Count 4.76 x10^6/uL (3.50-5.40) Hemoglobin 13.0 g/dL (12.0-15.5) Hematocrit 40.8 % (36.0-47.0) Mean Corpuscular Volume 86 fL (79-100) Mean Corpuscular Hemoglobin 27 pg (25-35) Mean Corpuscular Hemoglobin Concent 32 g/dL (31-37) Red Cell Distribution Width 15.8 % (11.5-14.5) Platelet Count 218 x10^3/uL (140-400) Neutrophils (%) (Auto) 84 % (31-73) Lymphocytes (%) (Auto) 8 % (24-48) Monocytes (%) (Auto) 5 % (0-9) Eosinophils (%) (Auto) 2 % (0-3) Basophils (%) (Auto) 1 % (0-3) Neutrophils # (Auto) 7.9 x10^3uL (1.8-7.7) Lymphocytes # (Auto) 0.8 x10^3/uL (1.0-4.8) Monocytes # (Auto) 0.4 x10^3/uL (0.0-1.1) Eosinophils # (Auto) 0.2 x10^3/uL (0.0-0.7) Basophils # (Auto) 0.1 x10^3/uL (0.0-0.2) Sodium Level 142 mmol/L (136-145) Potassium Level 4.5 mmol/L (3.5-5.1) Chloride Level 101 mmol/L (98-107) Carbon Dioxide Level 35 mmol/L (21-32) Anion Gap 6 (6-14) Blood Urea Nitrogen 40 mg/dL (7-20) Creatinine 1.3 mg/dL (0.6-1.0) Estimated GFR (Cockcroft-Gault) 39.4 BUN/Creatinine Ratio 31 (6-20) Glucose Level 213 mg/dL (70-99) Calcium Level 8.4 mg/dL (8.5-10.1) Magnesium Level 2.0 mg/dL (1.8-2.4) Total Bilirubin 0.6 mg/dL (0.2-1.0) Aspartate Amino Transf (AST/SGOT) 26 U/L (15-37) Alanine Aminotransferase (ALT/SGPT) 19 U/L (14-59) Alkaline Phosphatase 89 U/L (46-116) Creatine Kinase 47 U/L (26-192) Creatine Kinase MB (Mass) < 0.5 ng/mL (0.0-3.6) Creatine Kinase MB Relative Index % (0-4) Troponin I Quantitative < 0.017 ng/mL (0.000-0.055) < 0.017 ng/mL (0.000-0.055) WG-Zdg-V-Type Natriuretic Peptide 220 pg/mL (0-449) Total Protein 7.0 g/dL (6.4-8.2) Albumin 2.5 g/dL (3.4-5.0) Albumin/Globulin Ratio 0.6 (1.0-1.7) Lipase 163 U/L (73-393) Prothrombin Time 13.6 SEC (11.7-14.0) Prothromb Time International Ratio 1.1 (0.8-1.1) D-Dimer (Sangeetha) 5.95 ug/mlFEU (0.00-0.50) O2 Saturation 93 % (92-99) Arterial Blood pH 7.29 (7.35-7.45) Arterial Blood pCO2 at Patient Temp 72 mmHg (35-46) Arterial Blood pO2 at Patient Temp 78 mmHg (65-108) Arterial Blood HCO3 34 mmol/L (21-28) Arterial Blood Base Excess 5 mmol/L (-3-3) FiO2 45 Test 11/22/18 03:05 11/22/18 04:50 11/22/18 05:52 11/22/18 07:52 Troponin I Quantitative 0.077 ng/mL (0.000-0.055) Triglycerides Level 48 mg/dL (0-150) Cholesterol Level 132 mg/dL (0-200) LDL Cholesterol, Calculated 72 mg/dL (0-100) VLDL Cholesterol, Calculated 10 mg/dL (0-40) Non-HDL Cholesterol Calculated 82 mg/dL (0-129) HDL Cholesterol 50 mg/dL (40-60) Cholesterol/HDL Ratio 2.6 Lactic Acid Level 2.4 mmol/L (0.4-2.0) Glucose (Fingerstick) 109 mg/dL (70-99) 115 mg/dL (70-99) Test 11/22/18 08:15 11/22/18 08:55 11/22/18 10:00 11/22/18 11:59 O2 Saturation 94 % (92-99) Arterial Blood pH 7.32 (7.35-7.45) Arterial Blood pCO2 at Patient Temp 56 mmHg (35-46) Arterial Blood pO2 at Patient Temp 78 mmHg (65-108) Arterial Blood HCO3 28 mmol/L (21-28) Arterial Blood Base Excess 1 mmol/L (-3-3) FiO2 45 Lactic Acid Level 2.2 mmol/L (0.4-2.0) Influenza Type A Antigen Positive (NEGATIVE) Influenza Type B Antigen Negative (NEGATIVE) Glucose (Fingerstick) 163 mg/dL (70-99) Test 11/22/18 13:45 11/22/18 16:34 11/22/18 19:00 11/22/18 21:06 Lactic Acid Level 4.1 mmol/L (0.4-2.0) 2.2 mmol/L (0.4-2.0) Glucose (Fingerstick) 158 mg/dL (70-99) 153 mg/dL (70-99) Test 11/23/18 04:46 11/23/18 07:35 White Blood Count 7.0 x10^3/uL (4.0-11.0) Red Blood Count 4.26 x10^6/uL (3.50-5.40) Hemoglobin 11.4 g/dL (12.0-15.5) Hematocrit 36.5 % (36.0-47.0) Mean Corpuscular Volume 86 fL (79-100) Mean Corpuscular Hemoglobin 27 pg (25-35) Mean Corpuscular Hemoglobin Concent 31 g/dL (31-37) Red Cell Distribution Width 16.0 % (11.5-14.5) Platelet Count 158 x10^3/uL (140-400) Sodium Level 142 mmol/L (136-145) Potassium Level 4.8 mmol/L (3.5-5.1) Chloride Level 103 mmol/L (98-107) Carbon Dioxide Level 23 mmol/L (21-32) Anion Gap 16 (6-14) Blood Urea Nitrogen 66 mg/dL (7-20) Creatinine 2.9 mg/dL (0.6-1.0) Estimated GFR (Cockcroft-Gault) 15.6 BUN/Creatinine Ratio 23 (6-20) Glucose Level 135 mg/dL (70-99) Lactic Acid Level 1.8 mmol/L (0.4-2.0) Calcium Level 8.0 mg/dL (8.5-10.1) Total Bilirubin 0.5 mg/dL (0.2-1.0) Aspartate Amino Transf (AST/SGOT) 126 U/L (15-37) Alanine Aminotransferase (ALT/SGPT) 48 U/L (14-59) Alkaline Phosphatase 68 U/L (46-116) Total Protein 6.3 g/dL (6.4-8.2) Albumin 2.0 g/dL (3.4-5.0) Albumin/Globulin Ratio 0.5 (1.0-1.7) Glucose (Fingerstick) 135 mg/dL (70-99) Laboratory Tests Test 11/22/18 11:59 11/22/18 13:45 11/22/18 16:34 11/22/18 19:00 Glucose (Fingerstick) 163 mg/dL (70-99) 158 mg/dL (70-99) Lactic Acid Level 4.1 mmol/L (0.4-2.0) 2.2 mmol/L (0.4-2.0) Test 11/22/18 21:06 11/23/18 04:46 11/23/18 07:35 Glucose (Fingerstick) 153 mg/dL (70-99) 135 mg/dL (70-99) White Blood Count 7.0 x10^3/uL (4.0-11.0) Red Blood Count 4.26 x10^6/uL (3.50-5.40) Hemoglobin 11.4 g/dL (12.0-15.5) Hematocrit 36.5 % (36.0-47.0) Mean Corpuscular Volume 86 fL (79-100) Mean Corpuscular Hemoglobin 27 pg (25-35) Mean Corpuscular Hemoglobin Concent 31 g/dL (31-37) Red Cell Distribution Width 16.0 % (11.5-14.5) Platelet Count 158 x10^3/uL (140-400) Sodium Level 142 mmol/L (136-145) Potassium Level 4.8 mmol/L (3.5-5.1) Chloride Level 103 mmol/L (98-107) Carbon Dioxide Level 23 mmol/L (21-32) Anion Gap 16 (6-14) Blood Urea Nitrogen 66 mg/dL (7-20) Creatinine 2.9 mg/dL (0.6-1.0) Estimated GFR (Cockcroft-Gault) 15.6 BUN/Creatinine Ratio 23 (6-20) Glucose Level 135 mg/dL (70-99) Lactic Acid Level 1.8 mmol/L (0.4-2.0) Calcium Level 8.0 mg/dL (8.5-10.1) Total Bilirubin 0.5 mg/dL (0.2-1.0) Aspartate Amino Transf (AST/SGOT) 126 U/L (15-37) Alanine Aminotransferase (ALT/SGPT) 48 U/L (14-59) Alkaline Phosphatase 68 U/L (46-116) Total Protein 6.3 g/dL (6.4-8.2) Albumin 2.0 g/dL (3.4-5.0) Albumin/Globulin Ratio 0.5 (1.0-1.7) Medications Active Scripts Medications Dose Route/Sig Max Daily Dose Days Date Category Dose Instructions Potassium Chloride 20 Meq Tablet.er 40 Meq PO DAILY 11/22/18 Reported Mucinex (Guaifenesin) 600 Mg Tablet.er 1 Tab PO BID 11/22/18 Reported Xanax (Alprazolam) 0.25 Mg Tablet 0.25 Mg PO PRN Q6HRS PRN 11/22/18 Reported Afrin (Oxymetazoline Hcl) 30 Ml [place] 30 Ml NS PRN Q2HR PRN 11/22/18 Reported Prednisone (Prednisone) 10 Mg Tablet 10 Mg PO UD 08/29/18 Rx Take 5 tablets by mouth daily for 2 days, then take 4 tablets by mouth daily for 2 days, then take 3 tablets by mouth daily for 2 days, then take 2 tablets by mouth daily for 2 days, then take 1 tablets by mouth daily for 2 days, then stop. Milk Of Magnesia (Magnesium Hydroxide) 400 Mg/5 Ml Oral.susp 2,400 Mg PO PRN Q12HR PRN 10 08/20/18 Rx Tylenol (Acetaminophen) 325 Mg Tablet 650 Mg PO TID PRN PRN 04/11/16 Reported Aspir 81 (Aspirin) 81 Mg Tablet.dr 1 Tab PO DAILY 04/11/16 Reported Iron Supplement (Ferrous Sulfate) 325 Mg Tablet 1 Tab PO DAILY 11/10/15 Reported Advair 250-50 Diskus (Fluticasone/Salmeterol) 1 Each Disk.w.dev 1 Puff IH BID 05/06/15 Reported Duoneb 0.5-3(2.5) Mg/3 Ml (Albuterol/Ipratropium) 3 Ml Ampul.neb 3 Ml IH Q4HRS PRN 05/06/15 Reported Pravastatin Sodium 10 Mg Tablet 1 Tab PO QHS 09/16/14 Reported Carvedilol (Carvedilol) 6.25 Mg Tablet 1 Tab PO BID 09/16/14 Reported Torsemide 20 Mg Tablet 40 Mg PO BID 11/22/18 Reported Impression . ASSESSMENT: 1. [id number] respiratory failure. 2. Positive influenza A. 3. Acute exacerbation of chronic obstructive pulmonary disease. 4. Abnormal x-ray compatible with some atelectasis. 5. History of methicillin-susceptible Staphylococcus aureus bronchitis. 6. Abnormal D-dimer, nonspecific. 7. History of congestive heart failure. Plan . CONTINUE SUPPORT WILL NEED SNU UPON D/C 1. Recommend continue support with BiPAP p.r.n. 2. The patient seen in consultation by Infectious Disease Service. We will continue Zosyn. 3. Tamiflu. 4. Nebulized treatments. 5. We will make further adjustments depending on the patient's clinical response. 6. IV antibiotics per ID. JESSE STRANGE MD Nov 23, 2018 10:05
[2018-11-23 11:18] VITALS: BP 97/55
[2018-11-23] MEDS ORDERED: IV NORMAL SALINE 500ML BAG 500 ML IV ONE (12:00)
[2018-11-23 15:37] VITALS: BP 132/50
[2018-11-23 19:00] VITALS: BP 122/57
[2018-11-23] MEDS: ATORVASTATIN CALCIUM 10 MG TABLET. PO SCH (21:24)
[2018-11-23 23:00] VITALS: BP 148/80
[2018-11-24 03:00] VITALS: BP 115/55
[2018-11-24] MEDS: PIPERACILLIN/TAZOBACTAM 3.375 GM in IV NORMAL SALINE 50ML 50 ML IV SCH ×3 (06:00)
[2018-11-24 07:17] VITALS: BP 126/70
[2018-11-24] MEDS: BUDESONIDE 0.5 MG/2 ML NEBU. NEB SCH ×2 (07:42→19:44)
[2018-11-24] MEDS: IPRATRPIUM/ALBUTEROL 0.5/2.5MG 3 ML NEBU. NEB SCH ×5 (07:42→23:39)
[2018-11-24] MEDS: INSULIN LISPRO 300 UNITS/3 ML INSULN.PEN. SQ SCH ×3 (08:00→17:47)
--- NOTE | 2018-11-24 08:25 | PDOC ---
PULMONARY PROGRESS NOTES Subjective has sob, cough, wheezing, didnt use bipap Vitals Vital Signs Date Time Temp Pulse Resp B/P (MAP) Pulse Ox O2 Delivery O2 Flow Rate FiO2 11/24/18 07:43 93 Nasal Cannula 3.0 11/24/18 07:17 98.2 75 126/70 (88) 98.2 11/24/18 03:00 20 ROS: No Nausea, No Chest Pain, No Abdominal Pain, No Increase Cough General: Alert HEENT: Other (nc at perrl nose throat clear) Lungs: Wheezing Cardiovascular: S1, S2 Abdomen: Soft, Non-tender Neuro Exam: Alert Extremities: No Edema, Other Skin: Warm Labs Laboratory Tests Test 11/22/18 08:55 11/22/18 10:00 11/22/18 11:59 11/22/18 13:45 Lactic Acid Level 2.2 mmol/L (0.4-2.0) 4.1 mmol/L (0.4-2.0) Influenza Type A Antigen Positive (NEGATIVE) Influenza Type B Antigen Negative (NEGATIVE) Glucose (Fingerstick) 163 mg/dL (70-99) Test 11/22/18 16:34 11/22/18 19:00 11/22/18 21:06 11/23/18 04:46 Glucose (Fingerstick) 158 mg/dL (70-99) 153 mg/dL (70-99) Lactic Acid Level 2.2 mmol/L (0.4-2.0) 1.8 mmol/L (0.4-2.0) White Blood Count 7.0 x10^3/uL (4.0-11.0) Red Blood Count 4.26 x10^6/uL (3.50-5.40) Hemoglobin 11.4 g/dL (12.0-15.5) Hematocrit 36.5 % (36.0-47.0) Mean Corpuscular Volume 86 fL (79-100) Mean Corpuscular Hemoglobin 27 pg (25-35) Mean Corpuscular Hemoglobin Concent 31 g/dL (31-37) Red Cell Distribution Width 16.0 % (11.5-14.5) Platelet Count 158 x10^3/uL (140-400) Sodium Level 142 mmol/L (136-145) Potassium Level 4.8 mmol/L (3.5-5.1) Chloride Level 103 mmol/L (98-107) Carbon Dioxide Level 23 mmol/L (21-32) Anion Gap 16 (6-14) Blood Urea Nitrogen 66 mg/dL (7-20) Creatinine 2.9 mg/dL (0.6-1.0) Estimated GFR (Cockcroft-Gault) 15.6 BUN/Creatinine Ratio 23 (6-20) Glucose Level 135 mg/dL (70-99) Calcium Level 8.0 mg/dL (8.5-10.1) Total Bilirubin 0.5 mg/dL (0.2-1.0) Aspartate Amino Transf (AST/SGOT) 126 U/L (15-37) Alanine Aminotransferase (ALT/SGPT) 48 U/L (14-59) Alkaline Phosphatase 68 U/L (46-116) Total Protein 6.3 g/dL (6.4-8.2) Albumin 2.0 g/dL (3.4-5.0) Albumin/Globulin Ratio 0.5 (1.0-1.7) Test 11/23/18 07:35 11/23/18 11:13 11/23/18 17:10 11/23/18 19:28 Glucose (Fingerstick) 135 mg/dL (70-99) 143 mg/dL (70-99) 160 mg/dL (70-99) 145 mg/dL (70-99) Test 11/24/18 07:47 Glucose (Fingerstick) 105 mg/dL (70-99) Laboratory Tests Test 11/23/18 11:13 11/23/18 17:10 11/23/18 19:28 11/24/18 07:47 Glucose (Fingerstick) 143 mg/dL (70-99) 160 mg/dL (70-99) 145 mg/dL (70-99) 105 mg/dL (70-99) Medications Active Scripts Medications Dose Route/Sig Max Daily Dose Days Date Category Dose Instructions Potassium Chloride 20 Meq Tablet.er 40 Meq PO DAILY 11/22/18 Reported Mucinex (Guaifenesin) 600 Mg Tablet.er 1 Tab PO BID 11/22/18 Reported Xanax (Alprazolam) 0.25 Mg Tablet 0.25 Mg PO PRN Q6HRS PRN 11/22/18 Reported Afrin (Oxymetazoline Hcl) 30 Ml [place] 30 Ml NS PRN Q2HR PRN 11/22/18 Reported Prednisone (Prednisone) 10 Mg Tablet 10 Mg PO UD 08/29/18 Rx Take 5 tablets by mouth daily for 2 days, then take 4 tablets by mouth daily for 2 days, then take 3 tablets by mouth daily for 2 days, then take 2 tablets by mouth daily for 2 days, then take 1 tablets by mouth daily for 2 days, then stop. Milk Of Magnesia (Magnesium Hydroxide) 400 Mg/5 Ml Oral.susp 2,400 Mg PO PRN Q12HR PRN 10 08/20/18 Rx Tylenol (Acetaminophen) 325 Mg Tablet 650 Mg PO TID PRN PRN 04/11/16 Reported Aspir 81 (Aspirin) 81 Mg Tablet.dr 1 Tab PO DAILY 04/11/16 Reported Iron Supplement (Ferrous Sulfate) 325 Mg Tablet 1 Tab PO DAILY 11/10/15 Reported Advair 250-50 Diskus (Fluticasone/Salmeterol) 1 Each Disk.w.dev 1 Puff IH BID 05/06/15 Reported Duoneb 0.5-3(2.5) Mg/3 Ml (Albuterol/Ipratropium) 3 Ml Ampul.neb 3 Ml IH Q4HRS PRN 05/06/15 Reported Pravastatin Sodium 10 Mg Tablet 1 Tab PO QHS 09/16/14 Reported Carvedilol (Carvedilol) 6.25 Mg Tablet 1 Tab PO BID 09/16/14 Reported Torsemide 20 Mg Tablet 40 Mg PO BID 11/22/18 Reported Impression . ASSESSMENT: 1. [id number] respiratory failure. 2. Positive influenza A. 3. Acute exacerbation of chronic obstructive pulmonary disease. 4. Abnormal x-ray compatible with some atelectasis. 5. History of methicillin-susceptible Staphylococcus aureus bronchitis. 6. Abnormal D-dimer, nonspecific. 7. History of congestive heart failure. Plan . 1. BiPAP p.r.n. during day cont at night 2. cont abx per id 3. Tamiflu. 4. increase BD to q 4hrs, 5. has wheezing, cont ICS, will add solumedrol 6. elevate hob 7. cxr, will review discussed w pt and ALAN Boykin MD Nov 24, 2018 08:25
[2018-11-24] MEDS: LACTOBACILLUS RHAMNOSUS GG 1 CAPSULE. PO SCH ×2 (08:49→21:24)
[2018-11-24] MEDS: ASPIRIN ENTERIC COATED 81 MG TABLET.DR. PO SCH (08:49)
[2018-11-24] MEDS: POTASSIUM CHLORIDE 20 MEQ TABLET.ER. PO SCH (08:49)
[2018-11-24] MEDS: OSELTAMIVIR 30 MG CAPSULE PO SCH (08:49)
[2018-11-24] MEDS: FERROUS SULFATE 325 MG TABLET. PO SCH (08:49)
[2018-11-24] MEDS: methylPREDNISolone SOD SUCC PF 40 MG/ML VIAL. IV SCH ×3 (08:50→21:24)
[2018-11-24] MEDS: NYSTATIN TOPICAL POWDER 15GM BOTTLE. TP SCH ×2 (08:50→21:25)
[2018-11-24] MEDS: CARVEDILOL 6.25 MG TABLET. PO SCH ×2 (08:50→17:43)
--- NOTE | 2018-11-24 09:02 | RAD ---
CHEST AP ONLY History: SOA. Comparison with November 21. Heart size is stable. Mild increase in right lung base infiltrate or atelectasis since prior study. Probable small right pleural effusion as well. Milder left lung base atelectasis appears similar. No pneumothorax. Severe degenerative changes at the right shoulder. IMPRESSION: Mild worsening of right lung base infiltrate/atelectasis and small effusion. Left lung atelectasis at the bases similar. Electronically signed by: Finesse Garcia MD (11/24/2018 8:59 AM) [facility]
--- NOTE | 2018-11-24 10:50 | PDOC ---
PROGRESS NOTES Chief Complaint Chief Complaint Edwui-gj-aqznzyd respiratory failure Sepsis secondary to influenza A, pneumonia Influenza A Pneumonia, HCAP History of COPD Elevated D dimer Fxhejjqz-ss-hpqdap protein-calorie malnutrition Hypothyroidism (TSH > 6) ?Diastolic CHF (BNP 220) History of Present Illness History of Present Illness Ms. Schwartz is a 78 yo female with multiple hospitalizations, history of COPD, presenting with worsening shortness of breath, found to have elevated D-Dimer, pneumonia and influenza A positive from her SNF. Pt was seen and examined this morning She was resting in bed with BiPap- IPAP 16, EPAP 6, FiO2 35% She continued to have some mild respiratory distress, appeared to be sleeping prior to examination Discussed with RN ID and Pulmonology consulted. Vitals Vitals Vital Signs Date Time Temp Pulse Resp B/P (MAP) Pulse Ox O2 Delivery O2 Flow Rate FiO2 11/24/18 08:50 75 126/70 11/24/18 07:43 93 Nasal Cannula 3.0 11/24/18 07:17 98.2 98.2 11/24/18 03:00 20 Physical Exam General: Cooperative, mild distress, Other (sleepy) Heart: Regular rate, No murmurs Lungs: Wheezing, Other (course BS throughout) Abdomen: Normal bowel sounds, Soft, No tenderness Extremities: No clubbing, No cyanosis Skin: No rashes, No significant lesion Labs LABS Laboratory Tests Test 11/23/18 11:13 11/23/18 17:10 11/23/18 19:28 11/24/18 07:47 Glucose (Fingerstick) 143 mg/dL (70-99) 160 mg/dL (70-99) 145 mg/dL (70-99) 105 mg/dL (70-99) Review of Systems Review of Systems Pt reports SOB, weakness Pt denies CO, n/v Assessment and Plan Assessmemt and Plan Problems Medical Problems: (1) Elevated d-dimer Status: Acute Assessment Tchch-np-fomexhj respiratory failure Sepsis secondary to influenza A, pneumonia Influenza A Pneumonia, HCAP History of COPD Elevated D dimer Ohugkwik-ir-zijnzl protein-calorie malnutrition Hypothyroidism (TSH > 6) ?Diastolic CHF (BNP 220) Plan Continue BiPAP prn during the day, on at night- hope to wean off IV ABx- Zosyn nebulizer treatments tamiflu heart monitoring home meds PT/OT Appreciate subspecialty recs- ID, Pulm Comment Review of Relevant I have reviewed the following items [place] (where applicable) has been applied. Labs Laboratory Tests Test 11/22/18 11:59 11/22/18 13:45 11/22/18 16:34 11/22/18 19:00 Glucose (Fingerstick) 163 mg/dL (70-99) 158 mg/dL (70-99) Lactic Acid Level 4.1 mmol/L (0.4-2.0) 2.2 mmol/L (0.4-2.0) Test 11/22/18 21:06 11/23/18 04:46 11/23/18 07:35 11/23/18 11:13 Glucose (Fingerstick) 153 mg/dL (70-99) 135 mg/dL (70-99) 143 mg/dL (70-99) White Blood Count 7.0 x10^3/uL (4.0-11.0) Red Blood Count 4.26 x10^6/uL (3.50-5.40) Hemoglobin 11.4 g/dL (12.0-15.5) Hematocrit 36.5 % (36.0-47.0) Mean Corpuscular Volume 86 fL (79-100) Mean Corpuscular Hemoglobin 27 pg (25-35) Mean Corpuscular Hemoglobin Concent 31 g/dL (31-37) Red Cell Distribution Width 16.0 % (11.5-14.5) Platelet Count 158 x10^3/uL (140-400) Sodium Level 142 mmol/L (136-145) Potassium Level 4.8 mmol/L (3.5-5.1) Chloride Level 103 mmol/L (98-107) Carbon Dioxide Level 23 mmol/L (21-32) Anion Gap 16 (6-14) Blood Urea Nitrogen 66 mg/dL (7-20) Creatinine 2.9 mg/dL (0.6-1.0) Estimated GFR (Cockcroft-Gault) 15.6 BUN/Creatinine Ratio 23 (6-20) Glucose Level 135 mg/dL (70-99) Lactic Acid Level 1.8 mmol/L (0.4-2.0) Calcium Level 8.0 mg/dL (8.5-10.1) Total Bilirubin 0.5 mg/dL (0.2-1.0) Aspartate Amino Transf (AST/SGOT) 126 U/L (15-37) Alanine Aminotransferase (ALT/SGPT) 48 U/L (14-59) Alkaline Phosphatase 68 U/L (46-116) Total Protein 6.3 g/dL (6.4-8.2) Albumin 2.0 g/dL (3.4-5.0) Albumin/Globulin Ratio 0.5 (1.0-1.7) Test 11/23/18 17:10 11/23/18 19:28 11/24/18 07:47 Glucose (Fingerstick) 160 mg/dL (70-99) 145 mg/dL (70-99) 105 mg/dL (70-99) Laboratory Tests Test 11/23/18 11:13 11/23/18 17:10 11/23/18 19:28 11/24/18 07:47 Glucose (Fingerstick) 143 mg/dL (70-99) 160 mg/dL (70-99) 145 mg/dL (70-99) 105 mg/dL (70-99) Microbiology 11/22/18 Blood Culture - Preliminary, Resulted NO GROWTH AFTER 1 DAY Medications Current Medications Albuterol/ Ipratropium (Duoneb) 3 ml STK-MED ONCE .ROUTE ; Start 11/21/18 at 18: 13; Stop 11/21/18 at 18:14; Status DC Aspirin ([place] Aspirin) 325 mg 1X ONCE PO Last administered on 11/21/18at 19:55 ; Start 11/21/18 at 20:00; Stop 11/21/18 at 20:01; Status DC Ondansetron HCl (Zofran) 4 mg PRN Q8HRS PRN IV NAUSEA/VOMITING; Start 11/21/18 at 21:15; Stop 11/22/18 at 21:14; Status DC Albuterol/ Ipratropium (Duoneb) 3 ml RTQID NEB Last administered on 11/23/18at 07 :44; Start 11/22/18 at 08:00; Stop 11/23/18 at 07:59; Status DC Insulin Human Lispro (HumaLOG) 0-5 UNITS TIDWMEALS SQ ; Start 11/22/18 at 08:00 Dextrose (Dextrose 50%-Water Syringe) 12.5 gm PRN Q15MIN PRN IV SEE COMMENTS; Start 11/21/18 at 21:15 Enoxaparin Sodium (Lovenox 100mg Syringe) 90 mg 1X ONCE SQ Last administered on 11/21/18at 22:50; Start 11/21/18 at 22:00; Stop 11/21/18 at 22:01; Status DC Albuterol/ Ipratropium (Duoneb) 3 ml 1X ONCE NEB Last administered on at 22:14; Start 11/21/18 at 22:00; Stop 11/21/18 at 22:01; Status DC Budesonide (Pulmicort) 0.5 mg RTBID NEB Last administered on 11/24/18at 07:42; Start 11/21/18 at 23:45 Labetalol HCl (Normodyne Iv Push) 10 mg PRN Q4HRS PRN IVP HYPERTENSION, SEE COMMENTS; Start 11/22/18 at 00:00; Stop 11/23/18 at 07:42; Status DC Lorazepam (Ativan) 0.5 mg PRN Q6HRS PRN IV ANXIETY / AGITATION Last administered on 11/22/18at 23:37; Start 11/22/18 at 00:00 Labetalol HCl (Normodyne Iv Push) 20 mg PRN Q6HRS PRN IVP HYPERTENSION, SEE COMMENTS; Start 11/22/18 at 00:00 Lorazepam (Ativan) 0.5 mg PRN Q6HRS PRN IV ANXIETY / AGITATION; Start 11/22/18 at 00:00; Stop 11/22/18 at 14:42; Status DC Acetaminophen (Tylenol) 650 mg PRN TID PRN PO PAIN Last administered on at 09:49; Start 11/22/18 at 01:45 Alprazolam (Xanax) 0.25 mg PRN Q6HRS PRN PO ANXIETY / AGITATION Last administered on 11/23/18at 02:42; Start 11/22/18 at 01:45 Aspirin (Ecotrin) 81 mg DAILYWBKFT PO Last administered on 11/24/18 08:49; Start 11/22/18 at 08:00 Carvedilol (Coreg) 6.25 mg BIDWMEALS PO Last administered on 11/24/18at 08:50; Start 11/22/18 at 08:00 Ferrous Sulfate (Feosol) 325 mg DAILY PO Last administered on 11/24/18 08:49; Start 11/22/18 at 09:00 Guaifenesin (Mucinex) 600 mg BID PO Last administered on 11/24/18 08:49; Start 11/22/18 at 09:00 Albuterol Sulfate (Ventolin Neb Soln) 2.5 mg PRN Q4HRS PRN NEB CONGESTION Last administered on 11/23/18 03:43; Start 11/22/18 at 01:45 Magnesium Hydroxide (Milk Of Magnesia) 2,400 mg PRN Q12HR PRN PO CONSTIPATION; Start 11/22/18 at 01:45 Prednisone (Prednisone) 10 mg DAILY PO Last administered on 11/23/18 08:41; Start 11/22/18 at 09:00; Stop 11/24/18 at 08:29; Status DC Oxymetazoline HCl (Afrin) 1 spray PRN Q2HR PRN NS nose bleeds; Start 11/22/18 at 01:45 Potassium Chloride (Klor-Con) 40 meq DAILY08 PO Last administered on 11/24/18 08:49; Start 11/22/18 at 08:00 Atorvastatin Calcium (Lipitor) 5 mg QHS PO Last administered on 11/23/18 21:24 ; Start 11/22/18 at 21:00 Torsemide (Demadex) 40 mg BID92 PO Last administered on 11/22/18 16:11; Start 11/22/18 at 09:00; Stop 11/23/18 at 07:37; Status DC Morphine Sulfate (Morphine Sulfate) 2 mg PRN Q4HRS PRN IV PAIN Last administered on 11/22/18 03:24; Start 11/22/18 at 03:15 Piperacillin Sod/ Tazobactam Sod (Zosyn Per Pharmacy) 1 each PRN DAILY PRN MC SEE COMMENTS; Start 11/22/18 at 09:00 Piperacillin Sod/ Tazobactam Sod 3.375 gm/Sodium Chloride 50 ml @ 100 mls/hr Q6HRS IV Last administered on 11/24/18 06:00; Start 11/22/18 at 10:00 Nystatin (Nystop) 1 jaison BID TP Last administered on 3/9/19at 08:50; Start at 11:00 Sodium Chloride 1,000 ml @ 250 mls/hr 1X ONCE IV Last administered on at 11:37; Start 11/22/18 at 11:00; Stop 11/22/18 at 14:59; Status DC Oseltamivir Phosphate (Tamiflu) 30 mg BID PO Last administered on 11/24/18 08: 49; Start 11/22/18 at 12:00; Stop 11/27/18 at 11:59 Piperacillin Sod/ Tazobactam Sod (Zosyn Per Pharmacy) 1 each PRN DAILY PRN MC SEE COMMENTS; Start 11/22/18 at 12:15; Stop 11/22/18 at 12:24; Status DC Lactobacillus Rhamnosus (Culturelle) 1 cap BID PO Last administered on at 08:49; Start 11/22/18 at 21:00 Albuterol/ Ipratropium (Duoneb) 3 ml RTQID NEB Last administered on 11/24/18at 07 :42; Start 11/23/18 at 12:00; Stop 11/24/18 at 08:29; Status DC Sodium Chloride 500 ml @ 500 mls/hr 1X ONCE IV Last administered on 11/23/18at 12:00; Start 11/23/18 at 12:00; Stop 11/23/18 at 12:59; Status DC Albuterol/ Ipratropium (Duoneb) 3 ml Q4HRS NEB ; Start 11/24/18 at 12:00 Methylprednisolone Sodium Succinate (SOLU-Medrol 40MG VIAL) 40 mg Q8HRS IV Last administered on 11/24/18at 08:50; Start 11/24/18 at 08:30 Active Scripts Active Prednisone (Prednisone) 10 Mg Tablet 10 Mg PO UD Take 5 tablets by mouth daily for 2 days, then take 4 tablets by mouth daily for 2 days, then take 3 tablets by mouth daily for 2 days, then take 2 tablets by mouth daily for 2 days, then take 1 tablets by mouth daily for 2 days, then stop. Milk Of Magnesia (Magnesium Hydroxide) 400 Mg/5 Ml Oral.susp 2,400 Mg PO PRN Q12HR PRN 10 Days Reported Potassium Chloride 20 Meq Tablet.er 40 Meq PO DAILY Mucinex (Guaifenesin) 600 Mg Tablet.er 1 Tab PO BID Xanax (Alprazolam) 0.25 Mg Tablet 0.25 Mg PO PRN Q6HRS PRN Afrin (Oxymetazoline Hcl) 30 Ml [place] 30 Ml NS PRN Q2HR PRN Tylenol (Acetaminophen) 325 Mg Tablet 650 Mg PO TID PRN PRN Aspir 81 (Aspirin) 81 Mg Tablet. 1 Tab PO DAILY Iron Supplement (Ferrous Sulfate) 325 Mg Tablet 1 Tab PO DAILY Advair 250-50 Diskus (Fluticasone/Salmeterol) 1 Each Disk.w.dev 1 Puff IH BID Duoneb 0.5-3(2.5) Mg/3 Ml (Albuterol/Ipratropium) 3 Ml Ampul.neb 3 Ml IH Q4HRS PRN Pravastatin Sodium 10 Mg Tablet 1 Tab PO QHS Carvedilol (Carvedilol) 6.25 Mg Tablet 1 Tab PO BID Torsemide 20 Mg Tablet 40 Mg PO BID Vitals/I & O Vital Sign - Last 24 Hours 11/23/18 11/23/18 11/23/18 11/23/18 11:18 15:33 15:37 17:30 Temp 97.9 97.7 97.9 97.7 Pulse 79 77 77 Resp 20 20 B/P (MAP) 97/55 (69) 132/50 (77) 132/50 Pulse Ox 96 95 95 O2 Delivery BiPAP/CPAP Nasal Cannula Nasal Cannula O2 Flow Rate 3.0 3.0 11/23/18 11/23/18 11/23/18 11/24/18 19:00 19:48 23:00 03:00 Temp 98.9 98.0 98.7 98.9 98.0 98.7 Pulse 76 80 76 Resp 22 22 20 B/P (MAP) 122/57 (78) 148/80 (102) 115/55 (75) Pulse Ox 96 95 96 O2 Delivery Nasal Cannula Nasal Cannula Nasal Cannula Nasal Cannula O2 Flow Rate 3.0 3.0 3.0 3.0 11/24/18 11/24/18 11/24/18 11/24/18 07:17 07:23 07:43 08:50 Temp 98.2 98.2 Pulse 75 75 B/P (MAP) 126/70 (88) 126/70 Pulse Ox 93 93 O2 Delivery Nasal Cannula Nasal Cannula Nasal Cannula O2 Flow Rate 3.0 3.0 3.0 Intake and Output 11/23/18 11/23/18 11/24/18 15:00 23:00 07:00 Intake Total 237 ml 237 ml Balance 237 ml 237 ml Nutrition Consultation Dietary Evaluation: Recommendations by RD: Protein supplementation Comments: REC continue cardiac/ADA diet, add ground meats to aid with chewing while pt doesn't have her dentures REC Ensure TID, will monitor blood sugar Expected Outcomes/Goals: PO intake to meet >75% est needs Malnutrition Findings: Food and Nutrition Intake (Sev: <50% est energy req 5days Weight Status: Obese ANN MARIE TREVINO III DO Nov 24, 2018 10:50
[2018-11-24 10:55] VITALS: BP 132/63
--- NOTE | 2018-11-24 11:11 | NUR ---
Upn entering room BiPAP off pt. and stated "and it's not going back on".
--- NOTE | 2018-11-24 11:27 | PDOC ---
Infectious Disease Note Subjective Subjective Not feeling good Took BiPAP off No fevers Vital Sign Vital Signs Vital Signs Date Time Temp Pulse Resp B/P (MAP) Pulse Ox O2 Delivery O2 Flow Rate FiO2 11/24/18 11:10 97 Nasal Cannula 3.0 11/24/18 10:55 97.5 72 30 132/63 (86) 97.5 Physical Exam PHYSICAL EXAM GENERAL: Propped up in bed, weak appearing HEENT: Oral mucosa dry NECK: Supple. LUNGS: Coarse, nonlabored HEART: S1, S2. irregular ABDOMEN: Soft, bowel sounds present, nontender, nondistended. No rebound, no guarding. EXTREMITIES: No edema, no cyanosis. Musculoskeletal changes suggestive of DJD. NEUROLOGIC: Arouses to name, not very conversant SKIN: Warm, dry, no generalized rash. Labs Lab Laboratory Tests Test 11/23/18 11:13 11/23/18 17:10 11/23/18 19:28 11/24/18 07:47 Glucose (Fingerstick) 143 mg/dL (70-99) 160 mg/dL (70-99) 145 mg/dL (70-99) 105 mg/dL (70-99) IMPRESSION: Mild worsening of right lung base infiltrate/atelectasis and small effusion. Left lung atelectasis at the bases similar. Micro Microbiology 11/22/18 Blood Culture - Preliminary, Resulted NO GROWTH AFTER 1 DAY Objective Assessment Sepsis pulm source Febrile illness, pattern improving Influenza A positive REY Lactic acidosis - better Acute on chronic hypoxic resp failure Elevated D dimer,VQ scan neg for PE COPD on home O2 NH resident DM h/o CHF Anemia Doxycycline allergy h/o MRSA nares Plan Plan of Care Tamiflu and Zosyn - dose adjusted for REY, D/w pharmacy Repeat BMP now Steroids f/u cults Maintain aspiration precautions Supportive care D/w MELISSA FISHER APRN Nov 24, 2018 11:27
[2018-11-24 13:27] LABS: CALCIUM 8.2 mg/dL (8.5-10.1); CREATININE 1.8 mg/dL (0.6-1.0); GFR 27.1; POTASSIUM 4.6 mmol/L (3.5-5.1)
[2018-11-24] MEDS ORDERED: PIPERACILLIN/TAZOBACTAM 2.25 GM in IV NORMAL SALINE 50ML 50 ML IV SCH (14:00)
[2018-11-24 15:00] VITALS: BP 143/65
[2018-11-24 18:45] VITALS: BP 136/61
[2018-11-24] MEDS: PIPERACILLIN/TAZOBACTAM 2.25 GM in IV NORMAL SALINE 50ML 50 ML IV SCH (20:00)
[2018-11-24] MEDS: ATORVASTATIN CALCIUM 10 MG TABLET. PO SCH (21:24)
[2018-11-24 23:00] VITALS: BP 135/61
[2018-11-25 03:00] VITALS: BP 122/60
[2018-11-25] MEDS: IPRATRPIUM/ALBUTEROL 0.5/2.5MG 3 ML NEBU. NEB SCH ×6 (04:16→23:27)
[2018-11-25 05:29] LABS: BASO % 0 % (0-3); EOS % 0 % (0-3); HEMATOCRIT 32.3 % (36.0-47.0); HEMOGLOBIN 10.3 g/dL (12.0-15.5); LYMPH # 0.6 x10^3/uL (1.0-4.8); LYMPH % 10 % (24-48); MEAN CORPUSCULAR HEMOGLOBIN 27 pg (25-35); MEAN CORPUSCULAR HGB CONC 32 g/dL (31-37); MEAN CORPUSCULAR VOLUME 85 fL (79-100); MONO # 0.2 x10^3/uL (0.0-1.1); MONO % 3 % (0-9); NEUT % 87 % (31-73); PLATELET COUNT 135 x10^3/uL (140-400); RED BLOOD COUNT 3.82 x10^6/uL (3.50-5.40); RED CELL DISTRIBUTION WIDTH 15.9 % (11.5-14.5); WHITE BLOOD COUNT 5.7 x10^3/uL (4.0-11.0)
[2018-11-25 05:57] LABS: ALBUMIN 1.8 g/dL (3.4-5.0); ALBUMIN/GLOBULIN RATIO 0.4 (1.0-1.7); CALCIUM 8.2 mg/dL (8.5-10.1); CREATININE 1.4 mg/dL (0.6-1.0); GFR 36.2; POTASSIUM 4.7 mmol/L (3.5-5.1); TOTAL BILIRUBIN 0.3 mg/dL (0.2-1.0); TOTAL PROTEIN 6.1 g/dL (6.4-8.2)
[2018-11-25] MEDS: methylPREDNISolone SOD SUCC PF 40 MG/ML VIAL. IV SCH ×3 (06:26→20:58)
[2018-11-25] MEDS: PIPERACILLIN/TAZOBACTAM 2.25 GM in IV NORMAL SALINE 50ML 50 ML IV SCH ×5 (06:26→18:04)
[2018-11-25 07:50] VITALS: BP 142/67
[2018-11-25] MEDS: BUDESONIDE 0.5 MG/2 ML NEBU. NEB SCH ×2 (07:58→20:21)
--- NOTE | 2018-11-25 08:51 | PDOC ---
PULMONARY PROGRESS NOTES Subjective sob, cough better, no pain, didnt use bipap Vitals Vital Signs Date Time Temp Pulse Resp B/P (MAP) Pulse Ox O2 Delivery O2 Flow Rate FiO2 11/25/18 08:01 95 Nasal Cannula 3.0 11/25/18 07:50 97.6 69 22 142/67 (92) 97.6 ROS: No Nausea, No Chest Pain, No Abdominal Pain, No Increase Cough General: Alert HEENT: Other (nc at perrl nose throat clear) Lungs: Other (a few end exp wheeaing, dull at bases) Cardiovascular: S1, S2 Abdomen: Soft, Non-tender Neuro Exam: Alert Extremities: No Edema, Other Skin: Warm Labs Laboratory Tests Test 11/23/18 11:13 11/23/18 17:10 11/23/18 19:28 11/24/18 04:35 Glucose (Fingerstick) 143 mg/dL (70-99) 160 mg/dL (70-99) 145 mg/dL (70-99) Clostridium difficile Toxin B Gene Negative (Negative) Test 11/24/18 07:47 11/24/18 11:15 11/24/18 12:28 11/24/18 17:04 Glucose (Fingerstick) 105 mg/dL (70-99) 169 mg/dL (70-99) 219 mg/dL (70-99) Sodium Level 144 mmol/L (136-145) Potassium Level 4.6 mmol/L (3.5-5.1) Chloride Level 108 mmol/L (98-107) Carbon Dioxide Level 28 mmol/L (21-32) Anion Gap 8 (6-14) Blood Urea Nitrogen 51 mg/dL (7-20) Creatinine 1.8 mg/dL (0.6-1.0) Estimated GFR (Cockcroft-Gault) 27.1 Glucose Level 169 mg/dL (70-99) Calcium Level 8.2 mg/dL (8.5-10.1) Test 11/24/18 21:30 11/25/18 04:30 11/25/18 08:15 Glucose (Fingerstick) 240 mg/dL (70-99) 157 mg/dL (70-99) White Blood Count 5.7 x10^3/uL (4.0-11.0) Red Blood Count 3.82 x10^6/uL (3.50-5.40) Hemoglobin 10.3 g/dL (12.0-15.5) Hematocrit 32.3 % (36.0-47.0) Mean Corpuscular Volume 85 fL (79-100) Mean Corpuscular Hemoglobin 27 pg (25-35) Mean Corpuscular Hemoglobin Concent 32 g/dL (31-37) Red Cell Distribution Width 15.9 % (11.5-14.5) Platelet Count 135 x10^3/uL (140-400) Neutrophils (%) (Auto) 87 % (31-73) Lymphocytes (%) (Auto) 10 % (24-48) Monocytes (%) (Auto) 3 % (0-9) Eosinophils (%) (Auto) 0 % (0-3) Basophils (%) (Auto) 0 % (0-3) Neutrophils # (Auto) 5.0 x10^3uL (1.8-7.7) Lymphocytes # (Auto) 0.6 x10^3/uL (1.0-4.8) Monocytes # (Auto) 0.2 x10^3/uL (0.0-1.1) Eosinophils # (Auto) 0.0 x10^3/uL (0.0-0.7) Basophils # (Auto) 0.0 x10^3/uL (0.0-0.2) Sodium Level 145 mmol/L (136-145) Potassium Level 4.7 mmol/L (3.5-5.1) Chloride Level 108 mmol/L (98-107) Carbon Dioxide Level 29 mmol/L (21-32) Anion Gap 8 (6-14) Blood Urea Nitrogen 45 mg/dL (7-20) Creatinine 1.4 mg/dL (0.6-1.0) Estimated GFR (Cockcroft-Gault) 36.2 BUN/Creatinine Ratio 32 (6-20) Glucose Level 179 mg/dL (70-99) Calcium Level 8.2 mg/dL (8.5-10.1) Total Bilirubin 0.3 mg/dL (0.2-1.0) Aspartate Amino Transf (AST/SGOT) 64 U/L (15-37) Alanine Aminotransferase (ALT/SGPT) 47 U/L (14-59) Alkaline Phosphatase 63 U/L (46-116) Total Protein 6.1 g/dL (6.4-8.2) Albumin 1.8 g/dL (3.4-5.0) Albumin/Globulin Ratio 0.4 (1.0-1.7) Laboratory Tests Test 11/24/18 11:15 11/24/18 12:28 11/24/18 17:04 11/24/18 21:30 Glucose (Fingerstick) 169 mg/dL (70-99) 219 mg/dL (70-99) 240 mg/dL (70-99) Sodium Level 144 mmol/L (136-145) Potassium Level 4.6 mmol/L (3.5-5.1) Chloride Level 108 mmol/L (98-107) Carbon Dioxide Level 28 mmol/L (21-32) Anion Gap 8 (6-14) Blood Urea Nitrogen 51 mg/dL (7-20) Creatinine 1.8 mg/dL (0.6-1.0) Estimated GFR (Cockcroft-Gault) 27.1 Glucose Level 169 mg/dL (70-99) Calcium Level 8.2 mg/dL (8.5-10.1) Test 11/25/18 04:30 11/25/18 08:15 White Blood Count 5.7 x10^3/uL (4.0-11.0) Red Blood Count 3.82 x10^6/uL (3.50-5.40) Hemoglobin 10.3 g/dL (12.0-15.5) Hematocrit 32.3 % (36.0-47.0) Mean Corpuscular Volume 85 fL (79-100) Mean Corpuscular Hemoglobin 27 pg (25-35) Mean Corpuscular Hemoglobin Concent 32 g/dL (31-37) Red Cell Distribution Width 15.9 % (11.5-14.5) Platelet Count 135 x10^3/uL (140-400) Neutrophils (%) (Auto) 87 % (31-73) Lymphocytes (%) (Auto) 10 % (24-48) Monocytes (%) (Auto) 3 % (0-9) Eosinophils (%) (Auto) 0 % (0-3) Basophils (%) (Auto) 0 % (0-3) Neutrophils # (Auto) 5.0 x10^3uL (1.8-7.7) Lymphocytes # (Auto) 0.6 x10^3/uL (1.0-4.8) Monocytes # (Auto) 0.2 x10^3/uL (0.0-1.1) Eosinophils # (Auto) 0.0 x10^3/uL (0.0-0.7) Basophils # (Auto) 0.0 x10^3/uL (0.0-0.2) Sodium Level 145 mmol/L (136-145) Potassium Level 4.7 mmol/L (3.5-5.1) Chloride Level 108 mmol/L (98-107) Carbon Dioxide Level 29 mmol/L (21-32) Anion Gap 8 (6-14) Blood Urea Nitrogen 45 mg/dL (7-20) Creatinine 1.4 mg/dL (0.6-1.0) Estimated GFR (Cockcroft-Gault) 36.2 BUN/Creatinine Ratio 32 (6-20) Glucose Level 179 mg/dL (70-99) Calcium Level 8.2 mg/dL (8.5-10.1) Total Bilirubin 0.3 mg/dL (0.2-1.0) Aspartate Amino Transf (AST/SGOT) 64 U/L (15-37) Alanine Aminotransferase (ALT/SGPT) 47 U/L (14-59) Alkaline Phosphatase 63 U/L (46-116) Total Protein 6.1 g/dL (6.4-8.2) Albumin 1.8 g/dL (3.4-5.0) Albumin/Globulin Ratio 0.4 (1.0-1.7) Glucose (Fingerstick) 157 mg/dL (70-99) Medications Active Scripts Medications Dose Route/Sig Max Daily Dose Days Date Category Dose Instructions Potassium Chloride 20 Meq Tablet.er 40 Meq PO DAILY 11/22/18 Reported Mucinex (Guaifenesin) 600 Mg Tablet.er 1 Tab PO BID 11/22/18 Reported Xanax (Alprazolam) 0.25 Mg Tablet 0.25 Mg PO PRN Q6HRS PRN 11/22/18 Reported Afrin (Oxymetazoline Hcl) 30 Ml [place] 30 Ml NS PRN Q2HR PRN 11/22/18 Reported Prednisone (Prednisone) 10 Mg Tablet 10 Mg PO UD 08/29/18 Rx Take 5 tablets by mouth daily for 2 days, then take 4 tablets by mouth daily for 2 days, then take 3 tablets by mouth daily for 2 days, then take 2 tablets by mouth daily for 2 days, then take 1 tablets by mouth daily for 2 days, then stop. Milk Of Magnesia (Magnesium Hydroxide) 400 Mg/5 Ml Oral.susp 2,400 Mg PO PRN Q12HR PRN 10 08/20/18 Rx Tylenol (Acetaminophen) 325 Mg Tablet 650 Mg PO TID PRN PRN 04/11/16 Reported Aspir 81 (Aspirin) 81 Mg Tablet.dr 1 Tab PO DAILY 04/11/16 Reported Iron Supplement (Ferrous Sulfate) 325 Mg Tablet 1 Tab PO DAILY 11/10/15 Reported Advair 250-50 Diskus (Fluticasone/Salmeterol) 1 Each Disk.w.dev 1 Puff IH BID 05/06/15 Reported Duoneb 0.5-3(2.5) Mg/3 Ml (Albuterol/Ipratropium) 3 Ml Ampul.neb 3 Ml IH Q4HRS PRN 05/06/15 Reported Pravastatin Sodium 10 Mg Tablet 1 Tab PO QHS 09/16/14 Reported Carvedilol (Carvedilol) 6.25 Mg Tablet 1 Tab PO BID 09/16/14 Reported Torsemide 20 Mg Tablet 40 Mg PO BID 11/22/18 Reported Comments cxr reviewed Mild worsening of right lung base infiltrate/atelectasis and small effusion. Left lung atelectasis at the bases similar. Impression . ASSESSMENT: 1. Yrbdf-yn-hozqful respiratory failure. 2. Positive influenza A. 3. Acute exacerbation of chronic obstructive pulmonary disease. 4. Abnormal x-ray compatible with some atelectasis. 5. History of methicillin-susceptible Staphylococcus aureus bronchitis. 6. Abnormal D-dimer, nonspecific. 7. History of congestive heart failure. 8. sepsis Plan . 1. BiPAP p.r.n. during day cont at night 2. cont abx per id 3. Tamiflu. 4. change BD to qid 5. cont ICS, change solumedrol to q 12 6. elevate hob 7. cxr, reviewed discussed w pt and rn ALAN IYER MD Nov 25, 2018 08:51
[2018-11-25] MEDS: OSELTAMIVIR 30 MG CAPSULE PO SCH (09:00)
[2018-11-25] MEDS: FERROUS SULFATE 325 MG TABLET. PO SCH (09:15)
[2018-11-25] MEDS: LACTOBACILLUS RHAMNOSUS GG 1 CAPSULE. PO SCH ×2 (09:16→20:57)
[2018-11-25] MEDS: ASPIRIN ENTERIC COATED 81 MG TABLET.DR. PO SCH (09:16)
[2018-11-25] MEDS: POTASSIUM CHLORIDE 20 MEQ TABLET.ER. PO SCH (09:16)
--- NOTE | 2018-11-25 09:16 | PDOC ---
Infectious Disease Note Subjective Subjective Says leaning towards [facility], doesn't believe can care for self at home Breathing alright Denies cough, SOA, CP, N/V, F/C/aches ROS ROS per HPI Vital Sign Vital Signs Vital Signs Date Time Temp Pulse Resp B/P (MAP) Pulse Ox O2 Delivery O2 Flow Rate FiO2 11/25/18 08:01 95 Nasal Cannula 3.0 11/25/18 07:50 97.6 69 22 142/67 (92) 97.6 Physical Exam PHYSICAL EXAM GENERAL: Propped up in bed, alert, smiling and eating HEENT: Oral mucosa moist, no thrush NECK: Supple. LUNGS: Improved aeration, nonlabored HEART: S1, S2. ABDOMEN: Soft, bowel sounds present, nontender, nondistended. No rebound, no guarding. EXTREMITIES: No edema, no cyanosis. NEUROLOGIC: ALert, responds appropriately, more conversant this morning SKIN: Warm, dry, no generalized rash. PIV Labs Lab Laboratory Tests Test 11/24/18 11:15 11/24/18 12:28 11/24/18 17:04 11/24/18 21:30 Glucose (Fingerstick) 169 mg/dL (70-99) 219 mg/dL (70-99) 240 mg/dL (70-99) Sodium Level 144 mmol/L (136-145) Potassium Level 4.6 mmol/L (3.5-5.1) Chloride Level 108 mmol/L (98-107) Carbon Dioxide Level 28 mmol/L (21-32) Anion Gap 8 (6-14) Blood Urea Nitrogen 51 mg/dL (7-20) Creatinine 1.8 mg/dL (0.6-1.0) Estimated GFR (Cockcroft-Gault) 27.1 Glucose Level 169 mg/dL (70-99) Calcium Level 8.2 mg/dL (8.5-10.1) Test 11/25/18 04:30 11/25/18 08:15 White Blood Count 5.7 x10^3/uL (4.0-11.0) Red Blood Count 3.82 x10^6/uL (3.50-5.40) Hemoglobin 10.3 g/dL (12.0-15.5) Hematocrit 32.3 % (36.0-47.0) Mean Corpuscular Volume 85 fL (79-100) Mean Corpuscular Hemoglobin 27 pg (25-35) Mean Corpuscular Hemoglobin Concent 32 g/dL (31-37) Red Cell Distribution Width 15.9 % (11.5-14.5) Platelet Count 135 x10^3/uL (140-400) Neutrophils (%) (Auto) 87 % (31-73) Lymphocytes (%) (Auto) 10 % (24-48) Monocytes (%) (Auto) 3 % (0-9) Eosinophils (%) (Auto) 0 % (0-3) Basophils (%) (Auto) 0 % (0-3) Neutrophils # (Auto) 5.0 x10^3uL (1.8-7.7) Lymphocytes # (Auto) 0.6 x10^3/uL (1.0-4.8) Monocytes # (Auto) 0.2 x10^3/uL (0.0-1.1) Eosinophils # (Auto) 0.0 x10^3/uL (0.0-0.7) Basophils # (Auto) 0.0 x10^3/uL (0.0-0.2) Sodium Level 145 mmol/L (136-145) Potassium Level 4.7 mmol/L (3.5-5.1) Chloride Level 108 mmol/L (98-107) Carbon Dioxide Level 29 mmol/L (21-32) Anion Gap 8 (6-14) Blood Urea Nitrogen 45 mg/dL (7-20) Creatinine 1.4 mg/dL (0.6-1.0) Estimated GFR (Cockcroft-Gault) 36.2 BUN/Creatinine Ratio 32 (6-20) Glucose Level 179 mg/dL (70-99) Calcium Level 8.2 mg/dL (8.5-10.1) Total Bilirubin 0.3 mg/dL (0.2-1.0) Aspartate Amino Transf (AST/SGOT) 64 U/L (15-37) Alanine Aminotransferase (ALT/SGPT) 47 U/L (14-59) Alkaline Phosphatase 63 U/L (46-116) Total Protein 6.1 g/dL (6.4-8.2) Albumin 1.8 g/dL (3.4-5.0) Albumin/Globulin Ratio 0.4 (1.0-1.7) Glucose (Fingerstick) 157 mg/dL (70-99) Micro 11/22/18 Blood Culture - Preliminary, Resulted NO GROWTH AFTER 2 DAY Objective Assessment Sepsis pulm source Febrile illness, pattern improving Influenza A positive REY - improved Lactic acidosis - better Acute on chronic hypoxic resp failure, improving Elevated D dimer,VQ scan neg for PE COPD on home O2 [facility] resident DM h/o CHF Anemia Doxycycline allergy h/o MRSA nares Plan Plan of Care Tamiflu and Zosyn - dose adjusted for REY Steroids f/u cults Maintain aspiration precautions Supportive care D/w pulmonary Patient seen, examined, I agree with above. Assessment and plan was formulated with [employer]. MELISSA MAGANA APRN Nov 25, 2018 09:16 SUNG NORTON MD Nov 25, 2018 14:33
[2018-11-25] MEDS: CARVEDILOL 6.25 MG TABLET. PO SCH ×2 (09:17→17:27)
[2018-11-25] MEDS: NYSTATIN TOPICAL POWDER 15GM BOTTLE. TP SCH ×2 (09:23→20:58)
[2018-11-25] MEDS: INSULIN LISPRO 300 UNITS/3 ML INSULN.PEN. SQ SCH ×3 (09:24→17:32)
[2018-11-25 09:44] LABS: % BANDS 12 % (0-9); % BASOS 1 % (0-3); % LYMPHS 11 % (24-48); % MONOS 1 % (0-10); % SEGS 75 % (35-66); PLT ESTIMATE ADEQUATE (ADEQUATE)
--- NOTE | 2018-11-25 10:40 | PDOC ---
PROGRESS NOTES Chief Complaint Chief Complaint Ldfyu-ad-lzfospn respiratory failure Sepsis secondary to influenza A, pneumonia Influenza A Pneumonia, HCAP History of COPD Elevated D dimer Lnssxxze-rb-lvdqiv protein-calorie malnutrition Hypothyroidism (TSH > 6) ?Diastolic CHF (BNP 220) History of Present Illness History of Present Illness Ms. Schwartz is a 78 yo female with multiple hospitalizations, history of COPD, presenting with worsening shortness of breath, found to have elevated D-Dimer, pneumonia and influenza A positive from her SNF. Pt was seen and examined this morning She was resting in bed without BiPAP this morning, still requiring oxygen therapy via NC She still has some residual mild respiratory distress Discussed with RN ID and Pulmonology consulted. Vitals Vitals Vital Signs Date Time Temp Pulse Resp B/P (MAP) Pulse Ox O2 Delivery O2 Flow Rate FiO2 11/25/18 09:17 69 142/67 11/25/18 08:01 95 Nasal Cannula 3.0 11/25/18 07:50 97.6 22 97.6 Physical Exam Physical Exam GENERAL: Propped up in bed, alert, smiling and eating HEENT: Oral mucosa moist, no thrush NECK: Supple. LUNGS: Improved aeration, nonlabored HEART: S1, S2. ABDOMEN: Soft, bowel sounds present, nontender, nondistended. No rebound, no guarding. EXTREMITIES: No edema, no cyanosis. NEUROLOGIC: ALert, responds appropriately, more conversant this morning SKIN: Warm, dry, no generalized rash. PIV General: Cooperative, mild distress, Other (sleepy) Heart: Regular rate, No murmurs Lungs: Clear, Other (improving from yesterday) Abdomen: Normal bowel sounds, Soft, No tenderness Extremities: No clubbing, No cyanosis Skin: No rashes, No significant lesion Labs LABS Laboratory Tests Test 11/24/18 11:15 11/24/18 12:28 11/24/18 17:04 11/24/18 21:30 Glucose (Fingerstick) 169 mg/dL (70-99) 219 mg/dL (70-99) 240 mg/dL (70-99) Sodium Level 144 mmol/L (136-145) Potassium Level 4.6 mmol/L (3.5-5.1) Chloride Level 108 mmol/L (98-107) Carbon Dioxide Level 28 mmol/L (21-32) Anion Gap 8 (6-14) Blood Urea Nitrogen 51 mg/dL (7-20) Creatinine 1.8 mg/dL (0.6-1.0) Estimated GFR (Cockcroft-Gault) 27.1 Glucose Level 169 mg/dL (70-99) Calcium Level 8.2 mg/dL (8.5-10.1) Test 11/25/18 04:30 11/25/18 08:15 White Blood Count 5.7 x10^3/uL (4.0-11.0) Red Blood Count 3.82 x10^6/uL (3.50-5.40) Hemoglobin 10.3 g/dL (12.0-15.5) Hematocrit 32.3 % (36.0-47.0) Mean Corpuscular Volume 85 fL (79-100) Mean Corpuscular Hemoglobin 27 pg (25-35) Mean Corpuscular Hemoglobin Concent 32 g/dL (31-37) Red Cell Distribution Width 15.9 % (11.5-14.5) Platelet Count 135 x10^3/uL (140-400) Neutrophils (%) (Auto) 87 % (31-73) Lymphocytes (%) (Auto) 10 % (24-48) Monocytes (%) (Auto) 3 % (0-9) Eosinophils (%) (Auto) 0 % (0-3) Basophils (%) (Auto) 0 % (0-3) Neutrophils # (Auto) 5.0 x10^3uL (1.8-7.7) Lymphocytes # (Auto) 0.6 x10^3/uL (1.0-4.8) Monocytes # (Auto) 0.2 x10^3/uL (0.0-1.1) Eosinophils # (Auto) 0.0 x10^3/uL (0.0-0.7) Basophils # (Auto) 0.0 x10^3/uL (0.0-0.2) Segmented Neutrophils % 75 % (35-66) Band Neutrophils % 12 % (0-9) Lymphocytes % 11 % (24-48) Monocytes % 1 % (0-10) Basophils % 1 % (0-3) Platelet Estimate Adequate (ADEQUATE) Sodium Level 145 mmol/L (136-145) Potassium Level 4.7 mmol/L (3.5-5.1) Chloride Level 108 mmol/L (98-107) Carbon Dioxide Level 29 mmol/L (21-32) Anion Gap 8 (6-14) Blood Urea Nitrogen 45 mg/dL (7-20) Creatinine 1.4 mg/dL (0.6-1.0) Estimated GFR (Cockcroft-Gault) 36.2 BUN/Creatinine Ratio 32 (6-20) Glucose Level 179 mg/dL (70-99) Calcium Level 8.2 mg/dL (8.5-10.1) Total Bilirubin 0.3 mg/dL (0.2-1.0) Aspartate Amino Transf (AST/SGOT) 64 U/L (15-37) Alanine Aminotransferase (ALT/SGPT) 47 U/L (14-59) Alkaline Phosphatase 63 U/L (46-116) Total Protein 6.1 g/dL (6.4-8.2) Albumin 1.8 g/dL (3.4-5.0) Albumin/Globulin Ratio 0.4 (1.0-1.7) Glucose (Fingerstick) 157 mg/dL (70-99) Review of Systems Review of Systems Pt reports some SOB Pt denies CP, n/v, SHER Assessment and Plan Assessmemt and Plan Problems Medical Problems: (1) Elevated d-dimer Status: Acute Assessment Zeonn-du-kposiei respiratory failure Sepsis secondary to influenza A, pneumonia Influenza A Pneumonia, HCAP History of COPD Elevated D dimer Vqygtpxn-uu-sqcqys protein-calorie malnutrition Hypothyroidism (TSH > 6) ?Diastolic CHF (BNP 220) Plan Tamiflu Zosyn steroids continue nebs as needed continue to titrate O2 therapy (sats >92%) cardiac monitoring frequent labs PT/OT appreciate subspecialty recs Comment Review of Relevant I have reviewed the following items [place] (where applicable) has been applied. Labs Laboratory Tests Test 11/23/18 11:13 11/23/18 17:10 11/23/18 19:28 11/24/18 04:35 Glucose (Fingerstick) 143 mg/dL (70-99) 160 mg/dL (70-99) 145 mg/dL (70-99) Clostridium difficile Toxin B Gene Negative (Negative) Test 11/24/18 07:47 11/24/18 11:15 11/24/18 12:28 11/24/18 17:04 Glucose (Fingerstick) 105 mg/dL (70-99) 169 mg/dL (70-99) 219 mg/dL (70-99) Sodium Level 144 mmol/L (136-145) Potassium Level 4.6 mmol/L (3.5-5.1) Chloride Level 108 mmol/L (98-107) Carbon Dioxide Level 28 mmol/L (21-32) Anion Gap 8 (6-14) Blood Urea Nitrogen 51 mg/dL (7-20) Creatinine 1.8 mg/dL (0.6-1.0) Estimated GFR (Cockcroft-Gault) 27.1 Glucose Level 169 mg/dL (70-99) Calcium Level 8.2 mg/dL (8.5-10.1) Test 11/24/18 21:30 11/25/18 04:30 11/25/18 08:15 Glucose (Fingerstick) 240 mg/dL (70-99) 157 mg/dL (70-99) White Blood Count 5.7 x10^3/uL (4.0-11.0) Red Blood Count 3.82 x10^6/uL (3.50-5.40) Hemoglobin 10.3 g/dL (12.0-15.5) Hematocrit 32.3 % (36.0-47.0) Mean Corpuscular Volume 85 fL (79-100) Mean Corpuscular Hemoglobin 27 pg (25-35) Mean Corpuscular Hemoglobin Concent 32 g/dL (31-37) Red Cell Distribution Width 15.9 % (11.5-14.5) Platelet Count 135 x10^3/uL (140-400) Neutrophils (%) (Auto) 87 % (31-73) Lymphocytes (%) (Auto) 10 % (24-48) Monocytes (%) (Auto) 3 % (0-9) Eosinophils (%) (Auto) 0 % (0-3) Basophils (%) (Auto) 0 % (0-3) Neutrophils # (Auto) 5.0 x10^3uL (1.8-7.7) Lymphocytes # (Auto) 0.6 x10^3/uL (1.0-4.8) Monocytes # (Auto) 0.2 x10^3/uL (0.0-1.1) Eosinophils # (Auto) 0.0 x10^3/uL (0.0-0.7) Basophils # (Auto) 0.0 x10^3/uL (0.0-0.2) Segmented Neutrophils % 75 % (35-66) Band Neutrophils % 12 % (0-9) Lymphocytes % 11 % (24-48) Monocytes % 1 % (0-10) Basophils % 1 % (0-3) Platelet Estimate Adequate (ADEQUATE) Sodium Level 145 mmol/L (136-145) Potassium Level 4.7 mmol/L (3.5-5.1) Chloride Level 108 mmol/L (98-107) Carbon Dioxide Level 29 mmol/L (21-32) Anion Gap 8 (6-14) Blood Urea Nitrogen 45 mg/dL (7-20) Creatinine 1.4 mg/dL (0.6-1.0) Estimated GFR (Cockcroft-Gault) 36.2 BUN/Creatinine Ratio 32 (6-20) Glucose Level 179 mg/dL (70-99) Calcium Level 8.2 mg/dL (8.5-10.1) Total Bilirubin 0.3 mg/dL (0.2-1.0) Aspartate Amino Transf (AST/SGOT) 64 U/L (15-37) Alanine Aminotransferase (ALT/SGPT) 47 U/L (14-59) Alkaline Phosphatase 63 U/L (46-116) Total Protein 6.1 g/dL (6.4-8.2) Albumin 1.8 g/dL (3.4-5.0) Albumin/Globulin Ratio 0.4 (1.0-1.7) Laboratory Tests Test 11/24/18 11:15 11/24/18 12:28 11/24/18 17:04 11/24/18 21:30 Glucose (Fingerstick) 169 mg/dL (70-99) 219 mg/dL (70-99) 240 mg/dL (70-99) Sodium Level 144 mmol/L (136-145) Potassium Level 4.6 mmol/L (3.5-5.1) Chloride Level 108 mmol/L (98-107) Carbon Dioxide Level 28 mmol/L (21-32) Anion Gap 8 (6-14) Blood Urea Nitrogen 51 mg/dL (7-20) Creatinine 1.8 mg/dL (0.6-1.0) Estimated GFR (Cockcroft-Gault) 27.1 Glucose Level 169 mg/dL (70-99) Calcium Level 8.2 mg/dL (8.5-10.1) Test 11/25/18 04:30 11/25/18 08:15 White Blood Count 5.7 x10^3/uL (4.0-11.0) Red Blood Count 3.82 x10^6/uL (3.50-5.40) Hemoglobin 10.3 g/dL (12.0-15.5) Hematocrit 32.3 % (36.0-47.0) Mean Corpuscular Volume 85 fL (79-100) Mean Corpuscular Hemoglobin 27 pg (25-35) Mean Corpuscular Hemoglobin Concent 32 g/dL (31-37) Red Cell Distribution Width 15.9 % (11.5-14.5) Platelet Count 135 x10^3/uL (140-400) Neutrophils (%) (Auto) 87 % (31-73) Lymphocytes (%) (Auto) 10 % (24-48) Monocytes (%) (Auto) 3 % (0-9) Eosinophils (%) (Auto) 0 % (0-3) Basophils (%) (Auto) 0 % (0-3) Neutrophils # (Auto) 5.0 x10^3uL (1.8-7.7) Lymphocytes # (Auto) 0.6 x10^3/uL (1.0-4.8) Monocytes # (Auto) 0.2 x10^3/uL (0.0-1.1) Eosinophils # (Auto) 0.0 x10^3/uL (0.0-0.7) Basophils # (Auto) 0.0 x10^3/uL (0.0-0.2) Segmented Neutrophils % 75 % (35-66) Band Neutrophils % 12 % (0-9) Lymphocytes % 11 % (24-48) Monocytes % 1 % (0-10) Basophils % 1 % (0-3) Platelet Estimate Adequate (ADEQUATE) Sodium Level 145 mmol/L (136-145) Potassium Level 4.7 mmol/L (3.5-5.1) Chloride Level 108 mmol/L (98-107) Carbon Dioxide Level 29 mmol/L (21-32) Anion Gap 8 (6-14) Blood Urea Nitrogen 45 mg/dL (7-20) Creatinine 1.4 mg/dL (0.6-1.0) Estimated GFR (Cockcroft-Gault) 36.2 BUN/Creatinine Ratio 32 (6-20) Glucose Level 179 mg/dL (70-99) Calcium Level 8.2 mg/dL (8.5-10.1) Total Bilirubin 0.3 mg/dL (0.2-1.0) Aspartate Amino Transf (AST/SGOT) 64 U/L (15-37) Alanine Aminotransferase (ALT/SGPT) 47 U/L (14-59) Alkaline Phosphatase 63 U/L (46-116) Total Protein 6.1 g/dL (6.4-8.2) Albumin 1.8 g/dL (3.4-5.0) Albumin/Globulin Ratio 0.4 (1.0-1.7) Glucose (Fingerstick) 157 mg/dL (70-99) Microbiology 11/22/18 Blood Culture - Preliminary, Resulted NO GROWTH AFTER 2 DAYS Medications Current Medications Albuterol/ Ipratropium (Duoneb) 3 ml STK-MED ONCE .ROUTE ; Start 11/21/18 at 18: 13; Stop 11/21/18 at 18:14; Status DC Aspirin ([employer] Aspirin) 325 mg 1X ONCE PO Last administered on 11/21/18at 19:55 ; Start 11/21/18 at 20:00; Stop 11/21/18 at 20:01; Status DC Ondansetron HCl (Zofran) 4 mg PRN Q8HRS PRN IV NAUSEA/VOMITING; Start 11/21/18 at 21:15; Stop 11/22/18 at 21:14; Status DC Albuterol/ Ipratropium (Duoneb) 3 ml RTQID NEB Last administered on 11/23/18at 07 :44; Start 11/22/18 at 08:00; Stop 11/23/18 at 07:59; Status DC Insulin Human Lispro (HumaLOG) 0-5 UNITS TIDWMEALS SQ Last administered on 11/25at 09:24; Start 11/22/18 at 08:00 Dextrose (Dextrose 50%-Water Syringe) 12.5 gm PRN Q15MIN PRN IV SEE COMMENTS; Start 11/21/18 at 21:15 Enoxaparin Sodium (Lovenox 100mg Syringe) 90 mg 1X ONCE SQ Last administered on 11/21/18at 22:50; Start 11/21/18 at 22:00; Stop 11/21/18 at 22:01; Status DC Albuterol/ Ipratropium (Duoneb) 3 ml 1X ONCE NEB Last administered on at 22:14; Start 11/21/18 at 22:00; Stop 11/21/18 at 22:01; Status DC Budesonide (Pulmicort) 0.5 mg RTBID NEB Last administered on 11/25/18at 07:58; Start 11/21/18 at 23:45 Labetalol HCl (Normodyne Iv Push) 10 mg PRN Q4HRS PRN IVP HYPERTENSION, SEE COMMENTS; Start 11/22/18 at 00:00; Stop 11/23/18 at 07:42; Status DC Lorazepam (Ativan) 0.5 mg PRN Q6HRS PRN IV ANXIETY / AGITATION Last administered on 11/22/18at 23:37; Start 11/22/18 at 00:00 Labetalol HCl (Normodyne Iv Push) 20 mg PRN Q6HRS PRN IVP HYPERTENSION, SEE COMMENTS; Start 11/22/18 at 00:00 Lorazepam (Ativan) 0.5 mg PRN Q6HRS PRN IV ANXIETY / AGITATION; Start 11/22/18 at 00:00; Stop 11/22/18 at 14:42; Status DC Acetaminophen (Tylenol) 650 mg PRN TID PRN PO PAIN Last administered on at 09:49; Start 11/22/18 at 01:45 Alprazolam (Xanax) 0.25 mg PRN Q6HRS PRN PO ANXIETY / AGITATION Last administered on 11/23/18at 02:42; Start 11/22/18 at 01:45 Aspirin (Ecotrin) 81 mg DAILYWBKFT PO Last administered on 11/25/18at 09:16; Start 11/22/18 at 08:00 Carvedilol (Coreg) 6.25 mg BIDWMEALS PO Last administered on 11/25/18 09:17; Start 11/22/18 at 08:00 Ferrous Sulfate (Feosol) 325 mg DAILY PO Last administered on 11/25/18 09:15; Start 11/22/18 at 09:00 Guaifenesin (Mucinex) 600 mg BID PO Last administered on 11/25/18 09:15; Start 11/22/18 at 09:00 Albuterol Sulfate (Ventolin Neb Soln) 2.5 mg PRN Q4HRS PRN NEB CONGESTION Last administered on 11/23/18 03:43; Start 11/22/18 at 01:45 Magnesium Hydroxide (Milk Of Magnesia) 2,400 mg PRN Q12HR PRN PO CONSTIPATION; Start 11/22/18 at 01:45 Prednisone (Prednisone) 10 mg DAILY PO Last administered on 11/23/18 08:41; Start 11/22/18 at 09:00; Stop 11/24/18 at 08:29; Status DC Oxymetazoline HCl (Afrin) 1 spray PRN Q2HR PRN NS nose bleeds; Start 11/22/18 at 01:45 Potassium Chloride (Klor-Con) 40 meq DAILY08 PO Last administered on 11/25/18 09:16; Start 11/22/18 at 08:00 Atorvastatin Calcium (Lipitor) 5 mg QHS PO Last administered on 11/24/18 21:24 ; Start 11/22/18 at 21:00 Torsemide (Demadex) 40 mg BID92 PO Last administered on 11/22/18 16:11; Start 11/22/18 at 09:00; Stop 11/23/18 at 07:37; Status DC Morphine Sulfate (Morphine Sulfate) 2 mg PRN Q4HRS PRN IV PAIN Last administered on 11/22/18at 03:24; Start 11/22/18 at 03:15 Piperacillin Sod/ Tazobactam Sod (Zosyn Per Pharmacy) 1 each PRN DAILY PRN MC SEE COMMENTS; Start 11/22/18 at 09:00; Stop 11/24/18 at 11:24; Status DC Piperacillin Sod/ Tazobactam Sod 3.375 gm/Sodium Chloride 50 ml @ 100 mls/hr Q6HRS IV Last administered on 11/24/18at 06:00; Start 11/22/18 at 10:00; Stop 11/24 at 11:24; Status DC Nystatin (Nystop) 1 jaison BID TP Last administered on 11/25/18at 09:23; Start 11/22 at 11:00 Sodium Chloride 1,000 ml @ 250 mls/hr 1X ONCE IV Last administered on at 11:37; Start 11/22/18 at 11:00; Stop 11/22/18 at 14:59; Status DC Oseltamivir Phosphate (Tamiflu) 30 mg BID PO Last administered on 11/24/18at 08: 49; Start 11/22/18 at 12:00; Stop 11/24/18 at 11:22; Status DC Piperacillin Sod/ Tazobactam Sod (Zosyn Per Pharmacy) 1 each PRN DAILY PRN MC SEE COMMENTS; Start 11/22/18 at 12:15; Stop 11/22/18 at 12:24; Status DC Lactobacillus Rhamnosus (Culturelle) 1 cap BID PO Last administered on at 09:16; Start 11/22/18 at 21:00 Albuterol/ Ipratropium (Duoneb) 3 ml RTQID NEB Last administered on 11/24/18at 07 :42; Start 11/23/18 at 12:00; Stop 11/24/18 at 08:29; Status DC Sodium Chloride 500 ml @ 500 mls/hr 1X ONCE IV Last administered on 11/23/18at 12:00; Start 11/23/18 at 12:00; Stop 11/23/18 at 12:59; Status DC Albuterol/ Ipratropium (Duoneb) 3 ml Q4HRS NEB Last administered on 11/25/18at 07:58; Start 11/24/18 at 12:00 Methylprednisolone Sodium Succinate (SOLU-Medrol 40MG VIAL) 40 mg Q8HRS IV Last administered on 11/25/18at 06:26; Start 11/24/18 at 08:30; Stop 11/25/18 at 08:52; Status DC Oseltamivir Phosphate (Tamiflu) 30 mg DAILY PO ; Start 11/25/18 at 09:00; Stop 11/27/18 at 09:01 Piperacillin Sod/ Tazobactam Sod 2.25 gm/Sodium Chloride 50 ml @ 100 mls/hr Q8HRS IV Last administered on 11/24/18at 14:51; Start 11/24/18 at 14:00; Stop 11/24 at 14:54; Status DC Piperacillin Sod/ Tazobactam Sod 2.25 gm/Sodium Chloride 50 ml @ 100 mls/hr Q6HRS IV Last administered on 11/25/18at 06:26; Start 11/24/18 at 20:00 Methylprednisolone Sodium Succinate (SOLU-Medrol 40MG VIAL) 40 mg Q12HR IV Last administered on 11/25/18at 09:15; Start 11/25/18 at 09:00 Active Scripts Active Prednisone (Prednisone) 10 Mg Tablet 10 Mg PO UD Take 5 tablets by mouth daily for 2 days, then take 4 tablets by mouth daily for 2 days, then take 3 tablets by mouth daily for 2 days, then take 2 tablets by mouth daily for 2 days, then take 1 tablets by mouth daily for 2 days, then stop. Milk Of Magnesia (Magnesium Hydroxide) 400 Mg/5 Ml Oral.susp 2,400 Mg PO PRN Q12HR PRN 10 Days Reported Potassium Chloride 20 Meq Tablet.er 40 Meq PO DAILY Mucinex (Guaifenesin) 600 Mg Tablet.er 1 Tab PO BID Xanax (Alprazolam) 0.25 Mg Tablet 0.25 Mg PO PRN Q6HRS PRN Afrin (Oxymetazoline Hcl) 30 Ml [place] 30 Ml NS PRN Q2HR PRN Tylenol (Acetaminophen) 325 Mg Tablet 650 Mg PO TID PRN PRN Aspir 81 (Aspirin) 81 Mg Tablet. 1 Tab PO DAILY Iron Supplement (Ferrous Sulfate) 325 Mg Tablet 1 Tab PO DAILY Advair 250-50 Diskus (Fluticasone/Salmeterol) 1 Each Disk.w.dev 1 Puff IH BID Duoneb 0.5-3(2.5) Mg/3 Ml (Albuterol/Ipratropium) 3 Ml Ampul.neb 3 Ml IH Q4HRS PRN Pravastatin Sodium 10 Mg Tablet 1 Tab PO QHS Carvedilol (Carvedilol) 6.25 Mg Tablet 1 Tab PO BID Torsemide 20 Mg Tablet 40 Mg PO BID Vitals/I & O Vital Sign - Last 24 Hours 11/24/18 11/24/18 11/24/18 11/24/18 10:55 11:10 15:00 15:12 Temp 97.5 98.8 97.5 98.8 Pulse 72 87 Resp 30 24 B/P (MAP) 132/63 (86) 143/65 (91) Pulse Ox 96 97 93 96 O2 Delivery Nasal Cannula Nasal Cannula Nasal Cannula Nasal Cannula O2 Flow Rate 3.0 3.0 3.0 3.0 11/24/18 11/24/18 11/24/18 11/24/18 17:43 18:45 19:35 19:45 Temp 97.9 97.9 Pulse 87 70 Resp 20 B/P (MAP) 143/65 136/61 (86) Pulse Ox 96 95 O2 Delivery Nasal Cannula Nasal Cannula Nasal Cannula O2 Flow Rate 3.0 3.0 3.0 11/24/18 11/24/18 11/25/18 11/25/18 23:00 23:40 03:00 04:17 Temp 97.6 97.5 97.6 97.5 Pulse 68 71 Resp 22 22 B/P (MAP) 135/61 (85) 122/60 (80) Pulse Ox 96 94 95 95 O2 Delivery Nasal Cannula Nasal Cannula Nasal Cannula Nasal Cannula O2 Flow Rate 3.0 3.0 3.0 3.0 11/25/18 11/25/18 11/25/18 11/25/18 07:09 07:50 08:01 09:17 Temp 97.6 97.6 Pulse 69 69 Resp 22 B/P (MAP) 142/67 (92) 142/67 Pulse Ox 96 95 O2 Delivery Nasal Cannula Nasal Cannula Nasal Cannula O2 Flow Rate 3.0 3.0 3.0 Intake and Output 11/24/18 11/24/18 11/25/18 14:59 22:59 06:59 Intake Total 800 ml Output Total 300 ml 200 ml Balance -300 ml 600 ml Nutrition Consultation Dietary Evaluation: Recommendations by RD: Protein supplementation Comments: REC continue cardiac/ADA diet, add ground meats to aid with chewing while pt doesn't have her dentures REC Ensure TID, will monitor blood sugar Expected Outcomes/Goals: PO intake to meet >75% est needs Malnutrition Findings: Food and Nutrition Intake (Sev: <50% est energy req 5days Weight Status: Obese ANN MARIE TREVINO III DO Nov 25, 2018 10:40
[2018-11-25 11:04] VITALS: BP 141/65
[2018-11-25 14:06] VITALS: BP 138/65
[2018-11-25 19:23] VITALS: BP 166/82
[2018-11-25] MEDS: ATORVASTATIN CALCIUM 10 MG TABLET. PO SCH (20:57)
[2018-11-25] MEDS: ALPRAZolam 0.25 MG TABLET PO PRN (20:57)
[2018-11-25 22:40] VITALS: BP 148/70
[2018-11-26] MEDS: PIPERACILLIN/TAZOBACTAM 2.25 GM in IV NORMAL SALINE 50ML 50 ML IV SCH ×2 (00:18→05:33)
[2018-11-26 02:45] VITALS: BP 144/65
[2018-11-26] MEDS: IPRATRPIUM/ALBUTEROL 0.5/2.5MG 3 ML NEBU. NEB SCH ×6 (03:40→23:43)
[2018-11-26] MEDS: MORPHINE SULFATE 4 MG/ML VIAL. IV PRN (04:06)
[2018-11-26 04:59] LABS: BASO % 0 % (0-3); EOS % 0 % (0-3); HEMATOCRIT 30.7 % (36.0-47.0); HEMOGLOBIN 9.7 g/dL (12.0-15.5); LYMPH # 0.8 x10^3/uL (1.0-4.8); LYMPH % 9 % (24-48); MEAN CORPUSCULAR HEMOGLOBIN 27 pg (25-35); MEAN CORPUSCULAR HGB CONC 32 g/dL (31-37); MEAN CORPUSCULAR VOLUME 84 fL (79-100); MONO # 0.4 x10^3/uL (0.0-1.1); MONO % 5 % (0-9); NEUT # 7.7 x10^3uL (1.8-7.7); NEUT % 86 % (31-73); PLATELET COUNT 126 x10^3/uL (140-400); RED BLOOD COUNT 3.65 x10^6/uL (3.50-5.40); RED CELL DISTRIBUTION WIDTH 15.8 % (11.5-14.5); WHITE BLOOD COUNT 8.9 x10^3/uL (4.0-11.0)
[2018-11-26 05:31] LABS: ALBUMIN 1.8 g/dL (3.4-5.0); ALBUMIN/GLOBULIN RATIO 0.5 (1.0-1.7); CALCIUM 8.1 mg/dL (8.5-10.1); CREATININE 1.3 mg/dL (0.6-1.0); GFR 39.4; TOTAL BILIRUBIN 0.3 mg/dL (0.2-1.0); TOTAL PROTEIN 5.7 g/dL (6.4-8.2)
[2018-11-26 05:43] LABS: POTASSIUM 5.4 mmol/L (3.5-5.1)
[2018-11-26] MEDS: BUDESONIDE 0.5 MG/2 ML NEBU. NEB SCH ×2 (07:32→20:25)
[2018-11-26 07:36] VITALS: BP 123/85
[2018-11-26] MEDS: POTASSIUM CHLORIDE 20 MEQ TABLET.ER. PO SCH (08:00)
--- NOTE | 2018-11-26 08:43 | PDOC ---
Infectious Disease Note Subjective Subjective Says leaning towards [facility], doesn't believe can care for self at home Breathing alright -feels at baseline Denies cough, SOA, CP, N/V, F/C/aches/Rash ROS ROS o/w neg Vital Sign Vital Signs Vital Signs Date Time Temp Pulse Resp B/P (MAP) Pulse Ox O2 Delivery O2 Flow Rate FiO2 11/26/18 07:36 97.5 63 20 123/85 (98) 92 Nasal Cannula 2.0 97.5 Physical Exam PHYSICAL EXAM GENERAL: Propped up in bed, alert, smiling and sitting on side of bed. On phone initially HEENT: Oral mucosa moist, no thrush NECK: Supple. LUNGS: Improved aeration, nonlabored HEART: S1, S2. ABDOMEN: Soft, bowel sounds present, nontender, nondistended. No rebound, no guarding. EXTREMITIES: No edema, no cyanosis. NEUROLOGIC: ALert, responds appropriately, conversant this morning SKIN: Warm, dry, no generalized rash. PIV Labs Lab Laboratory Tests Test 11/25/18 11:50 11/25/18 16:58 11/25/18 20:41 11/26/18 03:35 Glucose (Fingerstick) 255 mg/dL (70-99) 255 mg/dL (70-99) 193 mg/dL (70-99) White Blood Count 8.9 x10^3/uL (4.0-11.0) Red Blood Count 3.65 x10^6/uL (3.50-5.40) Hemoglobin 9.7 g/dL (12.0-15.5) Hematocrit 30.7 % (36.0-47.0) Mean Corpuscular Volume 84 fL (79-100) Mean Corpuscular Hemoglobin 27 pg (25-35) Mean Corpuscular Hemoglobin Concent 32 g/dL (31-37) Red Cell Distribution Width 15.8 % (11.5-14.5) Platelet Count 126 x10^3/uL (140-400) Neutrophils (%) (Auto) 86 % (31-73) Lymphocytes (%) (Auto) 9 % (24-48) Monocytes (%) (Auto) 5 % (0-9) Eosinophils (%) (Auto) 0 % (0-3) Basophils (%) (Auto) 0 % (0-3) Neutrophils # (Auto) 7.7 x10^3uL (1.8-7.7) Lymphocytes # (Auto) 0.8 x10^3/uL (1.0-4.8) Monocytes # (Auto) 0.4 x10^3/uL (0.0-1.1) Eosinophils # (Auto) 0.0 x10^3/uL (0.0-0.7) Basophils # (Auto) 0.0 x10^3/uL (0.0-0.2) Sodium Level 142 mmol/L (136-145) Potassium Level 5.4 mmol/L (3.5-5.1) Chloride Level 106 mmol/L (98-107) Carbon Dioxide Level 30 mmol/L (21-32) Anion Gap 6 (6-14) Blood Urea Nitrogen 50 mg/dL (7-20) Creatinine 1.3 mg/dL (0.6-1.0) Estimated GFR (Cockcroft-Gault) 39.4 BUN/Creatinine Ratio 38 (6-20) Glucose Level 182 mg/dL (70-99) Calcium Level 8.1 mg/dL (8.5-10.1) Total Bilirubin 0.3 mg/dL (0.2-1.0) Aspartate Amino Transf (AST/SGOT) 36 U/L (15-37) Alanine Aminotransferase (ALT/SGPT) 35 U/L (14-59) Alkaline Phosphatase 56 U/L (46-116) Total Protein 5.7 g/dL (6.4-8.2) Albumin 1.8 g/dL (3.4-5.0) Albumin/Globulin Ratio 0.5 (1.0-1.7) Test 11/26/18 07:00 Glucose (Fingerstick) 176 mg/dL (70-99) Micro Microbiology 11/22/18 Blood Culture - Preliminary, Resulted NO GROWTH AFTER 3 DAYS Objective Assessment Sepsis pulm source Febrile illness, pattern improving Influenza A positive 11/22 REY - improved Lactic acidosis - better Acute on chronic hypoxic resp failure, improving Elevated D dimer,VQ scan neg for PE COPD on home O2 NH resident DM h/o CHF Anemia Doxycycline allergy h/o MRSA nares Plan Plan of Care Cont Tamiflu and d/c Zosyn (11/22) - begin Augmentin for 6 days Steroids per Pulm f/u cults Maintain aspiration precautions Supportive care KEVIN JIN MD Nov 26, 2018 08:43
[2018-11-26] MEDS: NYSTATIN TOPICAL POWDER 15GM BOTTLE. TP SCH ×2 (09:00→22:25)
[2018-11-26] MEDS: OSELTAMIVIR 30 MG CAPSULE PO SCH (09:00)
[2018-11-26] MEDS: methylPREDNISolone SOD SUCC PF 40 MG/ML VIAL. IV SCH ×2 (09:39→22:23)
[2018-11-26] MEDS: LACTOBACILLUS RHAMNOSUS GG 1 CAPSULE. PO SCH ×2 (09:40→22:23)
[2018-11-26] MEDS: FERROUS SULFATE 325 MG TABLET. PO SCH (09:41)
[2018-11-26] MEDS: CARVEDILOL 6.25 MG TABLET. PO SCH ×2 (09:41→17:30)
[2018-11-26] MEDS: INSULIN LISPRO 300 UNITS/3 ML INSULN.PEN. SQ SCH ×3 (09:48→17:32)
[2018-11-26] MEDS: ASPIRIN ENTERIC COATED 81 MG TABLET.DR. PO SCH (09:48)
[2018-11-26] MEDS: AMOXICILLIN/K CLAV 500/125MG TABLET. PO SCH ×2 (09:48→22:23)
[2018-11-26 10:40] VITALS: BP 161/82
--- NOTE | 2018-11-26 11:04 | PDOC ---
PROGRESS NOTES Chief Complaint Chief Complaint [id number] respiratory failure Sepsis secondary to influenza A, pneumonia Influenza A Pneumonia, HCAP History of COPD Elevated D dimer [id number] protein-calorie malnutrition Hypothyroidism (TSH > 6) ?Diastolic CHF (BNP 220) History of Present Illness History of Present Illness Ms. Schwartz is a 78 yo female with multiple hospitalizations, history of COPD, presenting with worsening shortness of breath, found to have elevated D-Dimer, pneumonia and influenza A positive from her SNF. Pt was seen and examined this morning She was resting in bed without BiPAP this morning, still requiring oxygen therapy via NC She still has some residual mild respiratory distress Discussed with RN ID and Pulmonology consulted. Vitals Vitals Vital Signs Date Time Temp Pulse Resp B/P (MAP) Pulse Ox O2 Delivery O2 Flow Rate FiO2 11/26/18 10:40 97.6 71 20 161/82 (108) 97 Nasal Cannula 2.0 97.6 Physical Exam Physical Exam GENERAL: Propped up in bed, alert, HEENT: Oral mucosa moist, no thrush NECK: Supple. LUNGS: Improved aeration, nonlabored HEART: S1, S2. ABDOMEN: Soft, bowel sounds present, nontender, nondistended. No rebound, no guarding. EXTREMITIES: No edema, no cyanosis. NEUROLOGIC: , conversant SKIN: Warm, dry, no generalized rash. PIV General: Oriented X3, Cooperative, mild distress, Other (sleepy) Heart: Regular rate, Normal S1, No murmurs Lungs: Other (a few end exp wheeaing, dull at bases) Abdomen: Normal bowel sounds, Soft, No tenderness Extremities: No clubbing, No cyanosis Skin: No rashes, No significant lesion Labs LABS CHEST AP ONLY History: SOA. Comparison with November 21. Heart size is stable. Mild increase in right lung base infiltrate or atelectasis since prior study. Probable small right pleural effusion as well. Milder left lung base atelectasis appears similar. No pneumothorax. Severe degenerative changes at the right shoulder. IMPRESSION: Mild worsening of right lung base infiltrate/atelectasis and small effusion. Left lung atelectasis at the bases similar. Electronically signed by: Finesse Garcia MD (11/24/2018 8:59 AM) [facility] DICTATED and SIGNED BY: FINESSE GARCIA MD DATE: 11/24/18 0859 Laboratory Tests Test 11/25/18 11:50 11/25/18 16:58 11/25/18 20:41 11/26/18 03:35 Glucose (Fingerstick) 255 mg/dL (70-99) 255 mg/dL (70-99) 193 mg/dL (70-99) White Blood Count 8.9 x10^3/uL (4.0-11.0) Red Blood Count 3.65 x10^6/uL (3.50-5.40) Hemoglobin 9.7 g/dL (12.0-15.5) Hematocrit 30.7 % (36.0-47.0) Mean Corpuscular Volume 84 fL (79-100) Mean Corpuscular Hemoglobin 27 pg (25-35) Mean Corpuscular Hemoglobin Concent 32 g/dL (31-37) Red Cell Distribution Width 15.8 % (11.5-14.5) Platelet Count 126 x10^3/uL (140-400) Neutrophils (%) (Auto) 86 % (31-73) Lymphocytes (%) (Auto) 9 % (24-48) Monocytes (%) (Auto) 5 % (0-9) Eosinophils (%) (Auto) 0 % (0-3) Basophils (%) (Auto) 0 % (0-3) Neutrophils # (Auto) 7.7 x10^3uL (1.8-7.7) Lymphocytes # (Auto) 0.8 x10^3/uL (1.0-4.8) Monocytes # (Auto) 0.4 x10^3/uL (0.0-1.1) Eosinophils # (Auto) 0.0 x10^3/uL (0.0-0.7) Basophils # (Auto) 0.0 x10^3/uL (0.0-0.2) Sodium Level 142 mmol/L (136-145) Potassium Level 5.4 mmol/L (3.5-5.1) Chloride Level 106 mmol/L (98-107) Carbon Dioxide Level 30 mmol/L (21-32) Anion Gap 6 (6-14) Blood Urea Nitrogen 50 mg/dL (7-20) Creatinine 1.3 mg/dL (0.6-1.0) Estimated GFR (Cockcroft-Gault) 39.4 BUN/Creatinine Ratio 38 (6-20) Glucose Level 182 mg/dL (70-99) Calcium Level 8.1 mg/dL (8.5-10.1) Total Bilirubin 0.3 mg/dL (0.2-1.0) Aspartate Amino Transf (AST/SGOT) 36 U/L (15-37) Alanine Aminotransferase (ALT/SGPT) 35 U/L (14-59) Alkaline Phosphatase 56 U/L (46-116) Total Protein 5.7 g/dL (6.4-8.2) Albumin 1.8 g/dL (3.4-5.0) Albumin/Globulin Ratio 0.5 (1.0-1.7) Test 11/26/18 07:00 Glucose (Fingerstick) 176 mg/dL (70-99) Assessment and Plan Assessmemt and Plan Problems Medical Problems: (1) Elevated d-dimer Status: Acute Comment Review of Relevant I have reviewed the following items [place] (where applicable) has been applied. Labs Laboratory Tests Test 11/24/18 11:15 11/24/18 12:28 11/24/18 17:04 11/24/18 21:30 Glucose (Fingerstick) 169 mg/dL (70-99) 219 mg/dL (70-99) 240 mg/dL (70-99) Sodium Level 144 mmol/L (136-145) Potassium Level 4.6 mmol/L (3.5-5.1) Chloride Level 108 mmol/L (98-107) Carbon Dioxide Level 28 mmol/L (21-32) Anion Gap 8 (6-14) Blood Urea Nitrogen 51 mg/dL (7-20) Creatinine 1.8 mg/dL (0.6-1.0) Estimated GFR (Cockcroft-Gault) 27.1 Glucose Level 169 mg/dL (70-99) Calcium Level 8.2 mg/dL (8.5-10.1) Test 11/25/18 04:30 11/25/18 08:15 11/25/18 11:50 11/25/18 16:58 White Blood Count 5.7 x10^3/uL (4.0-11.0) Red Blood Count 3.82 x10^6/uL (3.50-5.40) Hemoglobin 10.3 g/dL (12.0-15.5) Hematocrit 32.3 % (36.0-47.0) Mean Corpuscular Volume 85 fL (79-100) Mean Corpuscular Hemoglobin 27 pg (25-35) Mean Corpuscular Hemoglobin Concent 32 g/dL (31-37) Red Cell Distribution Width 15.9 % (11.5-14.5) Platelet Count 135 x10^3/uL (140-400) Neutrophils (%) (Auto) 87 % (31-73) Lymphocytes (%) (Auto) 10 % (24-48) Monocytes (%) (Auto) 3 % (0-9) Eosinophils (%) (Auto) 0 % (0-3) Basophils (%) (Auto) 0 % (0-3) Neutrophils # (Auto) 5.0 x10^3uL (1.8-7.7) Lymphocytes # (Auto) 0.6 x10^3/uL (1.0-4.8) Monocytes # (Auto) 0.2 x10^3/uL (0.0-1.1) Eosinophils # (Auto) 0.0 x10^3/uL (0.0-0.7) Basophils # (Auto) 0.0 x10^3/uL (0.0-0.2) Segmented Neutrophils % 75 % (35-66) Band Neutrophils % 12 % (0-9) Lymphocytes % 11 % (24-48) Monocytes % 1 % (0-10) Basophils % 1 % (0-3) Platelet Estimate Adequate (ADEQUATE) Sodium Level 145 mmol/L (136-145) Potassium Level 4.7 mmol/L (3.5-5.1) Chloride Level 108 mmol/L (98-107) Carbon Dioxide Level 29 mmol/L (21-32) Anion Gap 8 (6-14) Blood Urea Nitrogen 45 mg/dL (7-20) Creatinine 1.4 mg/dL (0.6-1.0) Estimated GFR (Cockcroft-Gault) 36.2 BUN/Creatinine Ratio 32 (6-20) Glucose Level 179 mg/dL (70-99) Calcium Level 8.2 mg/dL (8.5-10.1) Total Bilirubin 0.3 mg/dL (0.2-1.0) Aspartate Amino Transf (AST/SGOT) 64 U/L (15-37) Alanine Aminotransferase (ALT/SGPT) 47 U/L (14-59) Alkaline Phosphatase 63 U/L (46-116) Total Protein 6.1 g/dL (6.4-8.2) Albumin 1.8 g/dL (3.4-5.0) Albumin/Globulin Ratio 0.4 (1.0-1.7) Glucose (Fingerstick) 157 mg/dL (70-99) 255 mg/dL (70-99) 255 mg/dL (70-99) Test 11/25/18 20:41 11/26/18 03:35 11/26/18 07:00 Glucose (Fingerstick) 193 mg/dL (70-99) 176 mg/dL (70-99) White Blood Count 8.9 x10^3/uL (4.0-11.0) Red Blood Count 3.65 x10^6/uL (3.50-5.40) Hemoglobin 9.7 g/dL (12.0-15.5) Hematocrit 30.7 % (36.0-47.0) Mean Corpuscular Volume 84 fL (79-100) Mean Corpuscular Hemoglobin 27 pg (25-35) Mean Corpuscular Hemoglobin Concent 32 g/dL (31-37) Red Cell Distribution Width 15.8 % (11.5-14.5) Platelet Count 126 x10^3/uL (140-400) Neutrophils (%) (Auto) 86 % (31-73) Lymphocytes (%) (Auto) 9 % (24-48) Monocytes (%) (Auto) 5 % (0-9) Eosinophils (%) (Auto) 0 % (0-3) Basophils (%) (Auto) 0 % (0-3) Neutrophils # (Auto) 7.7 x10^3uL (1.8-7.7) Lymphocytes # (Auto) 0.8 x10^3/uL (1.0-4.8) Monocytes # (Auto) 0.4 x10^3/uL (0.0-1.1) Eosinophils # (Auto) 0.0 x10^3/uL (0.0-0.7) Basophils # (Auto) 0.0 x10^3/uL (0.0-0.2) Sodium Level 142 mmol/L (136-145) Potassium Level 5.4 mmol/L (3.5-5.1) Chloride Level 106 mmol/L (98-107) Carbon Dioxide Level 30 mmol/L (21-32) Anion Gap 6 (6-14) Blood Urea Nitrogen 50 mg/dL (7-20) Creatinine 1.3 mg/dL (0.6-1.0) Estimated GFR (Cockcroft-Gault) 39.4 BUN/Creatinine Ratio 38 (6-20) Glucose Level 182 mg/dL (70-99) Calcium Level 8.1 mg/dL (8.5-10.1) Total Bilirubin 0.3 mg/dL (0.2-1.0) Aspartate Amino Transf (AST/SGOT) 36 U/L (15-37) Alanine Aminotransferase (ALT/SGPT) 35 U/L (14-59) Alkaline Phosphatase 56 U/L (46-116) Total Protein 5.7 g/dL (6.4-8.2) Albumin 1.8 g/dL (3.4-5.0) Albumin/Globulin Ratio 0.5 (1.0-1.7) Laboratory Tests Test 11/25/18 11:50 11/25/18 16:58 11/25/18 20:41 11/26/18 03:35 Glucose (Fingerstick) 255 mg/dL (70-99) 255 mg/dL (70-99) 193 mg/dL (70-99) White Blood Count 8.9 x10^3/uL (4.0-11.0) Red Blood Count 3.65 x10^6/uL (3.50-5.40) Hemoglobin 9.7 g/dL (12.0-15.5) Hematocrit 30.7 % (36.0-47.0) Mean Corpuscular Volume 84 fL (79-100) Mean Corpuscular Hemoglobin 27 pg (25-35) Mean Corpuscular Hemoglobin Concent 32 g/dL (31-37) Red Cell Distribution Width 15.8 % (11.5-14.5) Platelet Count 126 x10^3/uL (140-400) Neutrophils (%) (Auto) 86 % (31-73) Lymphocytes (%) (Auto) 9 % (24-48) Monocytes (%) (Auto) 5 % (0-9) Eosinophils (%) (Auto) 0 % (0-3) Basophils (%) (Auto) 0 % (0-3) Neutrophils # (Auto) 7.7 x10^3uL (1.8-7.7) Lymphocytes # (Auto) 0.8 x10^3/uL (1.0-4.8) Monocytes # (Auto) 0.4 x10^3/uL (0.0-1.1) Eosinophils # (Auto) 0.0 x10^3/uL (0.0-0.7) Basophils # (Auto) 0.0 x10^3/uL (0.0-0.2) Sodium Level 142 mmol/L (136-145) Potassium Level 5.4 mmol/L (3.5-5.1) Chloride Level 106 mmol/L (98-107) Carbon Dioxide Level 30 mmol/L (21-32) Anion Gap 6 (6-14) Blood Urea Nitrogen 50 mg/dL (7-20) Creatinine 1.3 mg/dL (0.6-1.0) Estimated GFR (Cockcroft-Gault) 39.4 BUN/Creatinine Ratio 38 (6-20) Glucose Level 182 mg/dL (70-99) Calcium Level 8.1 mg/dL (8.5-10.1) Total Bilirubin 0.3 mg/dL (0.2-1.0) Aspartate Amino Transf (AST/SGOT) 36 U/L (15-37) Alanine Aminotransferase (ALT/SGPT) 35 U/L (14-59) Alkaline Phosphatase 56 U/L (46-116) Total Protein 5.7 g/dL (6.4-8.2) Albumin 1.8 g/dL (3.4-5.0) Albumin/Globulin Ratio 0.5 (1.0-1.7) Test 11/26/18 07:00 Glucose (Fingerstick) 176 mg/dL (70-99) Microbiology 11/22/18 Blood Culture - Preliminary, Resulted NO GROWTH AFTER 3 DAYS Medications Current Medications Albuterol/ Ipratropium (Duoneb) 3 ml STK-MED ONCE .ROUTE ; Start 11/21/18 at 18: 13; Stop 11/21/18 at 18:14; Status DC Aspirin ([place] Aspirin) 325 mg 1X ONCE PO Last administered on 11/21/18at 19:55 ; Start 11/21/18 at 20:00; Stop 11/21/18 at 20:01; Status DC Ondansetron HCl (Zofran) 4 mg PRN Q8HRS PRN IV NAUSEA/VOMITING; Start 11/21/18 at 21:15; Stop 11/22/18 at 21:14; Status DC Albuterol/ Ipratropium (Duoneb) 3 ml RTQID NEB Last administered on 11/23/18at 07 :44; Start 11/22/18 at 08:00; Stop 11/23/18 at 07:59; Status DC Insulin Human Lispro (HumaLOG) 0-5 UNITS TIDWMEALS SQ Last administered on 11/26at 09:48; Start 11/22/18 at 08:00 Dextrose (Dextrose 50%-Water Syringe) 12.5 gm PRN Q15MIN PRN IV SEE COMMENTS; Start 11/21/18 at 21:15 Enoxaparin Sodium (Lovenox 100mg Syringe) 90 mg 1X ONCE SQ Last administered on 11/21/18at 22:50; Start 11/21/18 at 22:00; Stop 11/21/18 at 22:01; Status DC Albuterol/ Ipratropium (Duoneb) 3 ml 1X ONCE NEB Last administered on at 22:14; Start 11/21/18 at 22:00; Stop 11/21/18 at 22:01; Status DC Budesonide (Pulmicort) 0.5 mg RTBID NEB Last administered on 11/26/18at 07:32; Start 11/21/18 at 23:45 Labetalol HCl (Normodyne Iv Push) 10 mg PRN Q4HRS PRN IVP HYPERTENSION, SEE COMMENTS; Start 11/22/18 at 00:00; Stop 11/23/18 at 07:42; Status DC Lorazepam (Ativan) 0.5 mg PRN Q6HRS PRN IV ANXIETY / AGITATION Last administered on 11/22/18at 23:37; Start 11/22/18 at 00:00 Labetalol HCl (Normodyne Iv Push) 20 mg PRN Q6HRS PRN IVP HYPERTENSION, SEE COMMENTS; Start 11/22/18 at 00:00 Lorazepam (Ativan) 0.5 mg PRN Q6HRS PRN IV ANXIETY / AGITATION; Start 11/22/18 at 00:00; Stop 11/22/18 at 14:42; Status DC Acetaminophen (Tylenol) 650 mg PRN TID PRN PO PAIN Last administered on 09:49; Start 11/22/18 at 01:45 Alprazolam (Xanax) 0.25 mg PRN Q6HRS PRN PO ANXIETY / AGITATION Last administered on 11/25/18 20:57; Start 11/22/18 at 01:45 Aspirin (Ecotrin) 81 mg DAILYWBKFT PO Last administered on 11/26/18 09:48; Start 11/22/18 at 08:00 Carvedilol (Coreg) 6.25 mg BIDWMEALS PO Last administered on 11/26/18 09:41; Start 11/22/18 at 08:00 Ferrous Sulfate (Feosol) 325 mg DAILY PO Last administered on 11/26/18 09:41; Start 11/22/18 at 09:00 Guaifenesin (Mucinex) 600 mg BID PO Last administered on 11/26/18 09:48; Start 11/22/18 at 09:00 Albuterol Sulfate (Ventolin Neb Soln) 2.5 mg PRN Q4HRS PRN NEB CONGESTION Last administered on 11/23/18 03:43; Start 11/22/18 at 01:45 Magnesium Hydroxide (Milk Of Magnesia) 2,400 mg PRN Q12HR PRN PO CONSTIPATION; Start 11/22/18 at 01:45 Prednisone (Prednisone) 10 mg DAILY PO Last administered on 11/23/18 08:41; Start 11/22/18 at 09:00; Stop 11/24/18 at 08:29; Status DC Oxymetazoline HCl (Afrin) 1 spray PRN Q2HR PRN NS nose bleeds; Start 11/22/18 at 01:45 Potassium Chloride (Klor-Con) 40 meq DAILY08 PO Last administered on 11/25/18 09:16; Start 11/22/18 at 08:00 Atorvastatin Calcium (Lipitor) 5 mg QHS PO Last administered on 11/25/18 20:57 ; Start 11/22/18 at 21:00 Torsemide (Demadex) 40 mg BID92 PO Last administered on 11/22/18at 16:11; Start 11/22/18 at 09:00; Stop 11/23/18 at 07:37; Status DC Morphine Sulfate (Morphine Sulfate) 2 mg PRN Q4HRS PRN IV PAIN Last administered on 11/26/18at 04:06; Start 11/22/18 at 03:15 Piperacillin Sod/ Tazobactam Sod (Zosyn Per Pharmacy) 1 each PRN DAILY PRN MC SEE COMMENTS; Start 11/22/18 at 09:00; Stop 11/24/18 at 11:24; Status DC Piperacillin Sod/ Tazobactam Sod 3.375 gm/Sodium Chloride 50 ml @ 100 mls/hr Q6HRS IV Last administered on 11/24/18at 06:00; Start 11/22/18 at 10:00; Stop 11/24 at 11:24; Status DC Nystatin (Nystop) 1 jaison BID TP Last administered on 11/26/18at 09:00; Start 11/22 at 11:00 Sodium Chloride 1,000 ml @ 250 mls/hr 1X ONCE IV Last administered on at 11:37; Start 11/22/18 at 11:00; Stop 11/22/18 at 14:59; Status DC Oseltamivir Phosphate (Tamiflu) 30 mg BID PO Last administered on 11/24/18at 08: 49; Start 11/22/18 at 12:00; Stop 11/24/18 at 11:22; Status DC Piperacillin Sod/ Tazobactam Sod (Zosyn Per Pharmacy) 1 each PRN DAILY PRN MC SEE COMMENTS; Start 11/22/18 at 12:15; Stop 11/22/18 at 12:24; Status DC Lactobacillus Rhamnosus (Culturelle) 1 cap BID PO Last administered on at 09:40; Start 11/22/18 at 21:00 Albuterol/ Ipratropium (Duoneb) 3 ml RTQID NEB Last administered on 11/24/18at 07 :42; Start 11/23/18 at 12:00; Stop 11/24/18 at 08:29; Status DC Sodium Chloride 500 ml @ 500 mls/hr 1X ONCE IV Last administered on 11/23/18at 12:00; Start 11/23/18 at 12:00; Stop 11/23/18 at 12:59; Status DC Albuterol/ Ipratropium (Duoneb) 3 ml Q4HRS NEB Last administered on 11/26/18at 07:32; Start 11/24/18 at 12:00 Methylprednisolone Sodium Succinate (SOLU-Medrol 40MG VIAL) 40 mg Q8HRS IV Last administered on 11/25/18at 06:26; Start 11/24/18 at 08:30; Stop 11/25/18 at 08:52; Status DC Oseltamivir Phosphate (Tamiflu) 30 mg DAILY PO Last administered on 11/26/18at 09:00; Start 11/25/18 at 09:00; Stop 11/27/18 at 09:01 Piperacillin Sod/ Tazobactam Sod 2.25 gm/Sodium Chloride 50 ml @ 100 mls/hr Q8HRS IV Last administered on 11/24/18at 14:51; Start 11/24/18 at 14:00; Stop 11/24 at 14:54; Status DC Piperacillin Sod/ Tazobactam Sod 2.25 gm/Sodium Chloride 50 ml @ 100 mls/hr Q6HRS IV Last administered on 11/26/18at 05:33; Start 11/24/18 at 20:00; Stop 08/06 at 08:59; Status DC Methylprednisolone Sodium Succinate (SOLU-Medrol 40MG VIAL) 40 mg Q12HR IV Last administered on 11/26/18at 09:39; Start 11/25/18 at 09:00 Amoxicillin/ Clavulanate Potassium (Augmentin 500/ 125mg) 1 tab BID PO Last administered on 11/26/18at 09:48; Start 11/26/18 at 09:00 Active Scripts Active Prednisone (Prednisone) 10 Mg Tablet 10 Mg PO UD Take 5 tablets by mouth daily for 2 days, then take 4 tablets by mouth daily for 2 days, then take 3 tablets by mouth daily for 2 days, then take 2 tablets by mouth daily for 2 days, then take 1 tablets by mouth daily for 2 days, then stop. Milk Of Magnesia (Magnesium Hydroxide) 400 Mg/5 Ml Oral.susp 2,400 Mg PO PRN Q12HR PRN 10 Days Reported Potassium Chloride 20 Meq Tablet.er 40 Meq PO DAILY Mucinex (Guaifenesin) 600 Mg Tablet.er 1 Tab PO BID Xanax (Alprazolam) 0.25 Mg Tablet 0.25 Mg PO PRN Q6HRS PRN Afrin (Oxymetazoline Hcl) 30 Ml [place] 30 Ml NS PRN Q2HR PRN Tylenol (Acetaminophen) 325 Mg Tablet 650 Mg PO TID PRN PRN Aspir 81 (Aspirin) 81 Mg Tablet.dr 1 Tab PO DAILY Iron Supplement (Ferrous Sulfate) 325 Mg Tablet 1 Tab PO DAILY Advair 250-50 Diskus (Fluticasone/Salmeterol) 1 Each Disk.w.dev 1 Puff IH BID Duoneb 0.5-3(2.5) Mg/3 Ml (Albuterol/Ipratropium) 3 Ml Ampul.neb 3 Ml IH Q4HRS PRN Pravastatin Sodium 10 Mg Tablet 1 Tab PO QHS Carvedilol (Carvedilol) 6.25 Mg Tablet 1 Tab PO BID Torsemide 20 Mg Tablet 40 Mg PO BID Vitals/I & O Vital Sign - Last 24 Hours 11/25/18 11/25/18 11/25/18 11/25/18 11:59 14:06 16:37 17:27 Temp 98.0 98.0 Pulse 77 77 Resp 20 B/P (MAP) 138/65 (89) 138/65 Pulse Ox 97 96 94 O2 Delivery Nasal Cannula Nasal Cannula Nasal Cannula O2 Flow Rate 3.0 3.0 3.0 11/25/18 11/25/18 11/25/18 11/25/18 19:15 19:23 20:21 22:40 Temp 97.7 98.0 97.7 98.0 Pulse 73 66 Resp 20 20 B/P (MAP) 166/82 (110) 148/70 (96) Pulse Ox 94 95 96 O2 Delivery Nasal Cannula Nasal Cannula Nasal Cannula Nasal Cannula O2 Flow Rate 3.0 2.0 3.0 2.0 11/25/18 11/25/18 11/25/18 11/26/18 23:27 23:45 23:47 02:45 Temp 97.8 97.8 Pulse 66 Resp 20 B/P (MAP) 144/65 (91) Pulse Ox 96 92 96 96 O2 Delivery Nasal Cannula Nasal Cannula BiPAP/CPAP Nasal Cannula O2 Flow Rate 3.0 2.0 2.0 11/26/18 11/26/18 11/26/18 11/26/18 03:41 04:06 07:30 07:36 Temp 97.5 97.5 Pulse 63 Resp 20 20 B/P (MAP) 123/85 (98) Pulse Ox 93 97 93 92 O2 Delivery Nasal Cannula BiPAP/CPAP Nasal Cannula Nasal Cannula O2 Flow Rate 3.0 3.0 2.0 11/26/18 11/26/18 09:41 10:40 Temp 97.6 97.6 Pulse 63 71 Resp 20 B/P (MAP) 123/85 161/82 (108) Pulse Ox 97 O2 Delivery Nasal Cannula O2 Flow Rate 2.0 Intake and Output 11/25/18 11/25/18 11/26/18 14:59 22:59 06:59 Intake Total 540 ml 800 ml 500 ml Output Total 200 ml Balance 540 ml 600 ml 500 ml Nutrition Consultation Dietary Evaluation: Recommendations by RD: Protein supplementation Comments: REC continue cardiac/ADA diet, add ground meats to aid with chewing while pt doesn't have her dentures REC Ensure TID, will monitor blood sugar Expected Outcomes/Goals: PO intake to meet >75% est needs Malnutrition Findings: Food and Nutrition Intake (Sev: <50% est energy req 5days Weight Status: Obese FAITH BEAN MD Nov 26, 2018 11:04
--- NOTE | 2018-11-26 12:05 | PDOC ---
PULMONARY PROGRESS NOTES Subjective sob, cough better, no pain, didnt use bipap Vitals Vital Signs Date Time Temp Pulse Resp B/P (MAP) Pulse Ox O2 Delivery O2 Flow Rate FiO2 11/26/18 11:54 96 Nasal Cannula 3.0 11/26/18 10:40 97.6 71 20 161/82 (108) 97.6 ROS: No Nausea, No Chest Pain, No Abdominal Pain, No Increase Cough General: Alert HEENT: Other (nc at perrl nose throat clear) Lungs: Other (a few end exp wheeaing, dull at bases) Cardiovascular: S1, S2 Abdomen: Soft, Non-tender Neuro Exam: Alert Extremities: No Edema, Other Skin: Warm Labs Laboratory Tests Test 11/24/18 12:28 11/24/18 17:04 11/24/18 21:30 11/25/18 04:30 Sodium Level 144 mmol/L (136-145) 145 mmol/L (136-145) Potassium Level 4.6 mmol/L (3.5-5.1) 4.7 mmol/L (3.5-5.1) Chloride Level 108 mmol/L (98-107) 108 mmol/L (98-107) Carbon Dioxide Level 28 mmol/L (21-32) 29 mmol/L (21-32) Anion Gap 8 (6-14) 8 (6-14) Blood Urea Nitrogen 51 mg/dL (7-20) 45 mg/dL (7-20) Creatinine 1.8 mg/dL (0.6-1.0) 1.4 mg/dL (0.6-1.0) Estimated GFR (Cockcroft-Gault) 27.1 36.2 Glucose Level 169 mg/dL (70-99) 179 mg/dL (70-99) Calcium Level 8.2 mg/dL (8.5-10.1) 8.2 mg/dL (8.5-10.1) Glucose (Fingerstick) 219 mg/dL (70-99) 240 mg/dL (70-99) White Blood Count 5.7 x10^3/uL (4.0-11.0) Red Blood Count 3.82 x10^6/uL (3.50-5.40) Hemoglobin 10.3 g/dL (12.0-15.5) Hematocrit 32.3 % (36.0-47.0) Mean Corpuscular Volume 85 fL (79-100) Mean Corpuscular Hemoglobin 27 pg (25-35) Mean Corpuscular Hemoglobin Concent 32 g/dL (31-37) Red Cell Distribution Width 15.9 % (11.5-14.5) Platelet Count 135 x10^3/uL (140-400) Neutrophils (%) (Auto) 87 % (31-73) Lymphocytes (%) (Auto) 10 % (24-48) Monocytes (%) (Auto) 3 % (0-9) Eosinophils (%) (Auto) 0 % (0-3) Basophils (%) (Auto) 0 % (0-3) Neutrophils # (Auto) 5.0 x10^3uL (1.8-7.7) Lymphocytes # (Auto) 0.6 x10^3/uL (1.0-4.8) Monocytes # (Auto) 0.2 x10^3/uL (0.0-1.1) Eosinophils # (Auto) 0.0 x10^3/uL (0.0-0.7) Basophils # (Auto) 0.0 x10^3/uL (0.0-0.2) Segmented Neutrophils % 75 % (35-66) Band Neutrophils % 12 % (0-9) Lymphocytes % 11 % (24-48) Monocytes % 1 % (0-10) Basophils % 1 % (0-3) Platelet Estimate Adequate (ADEQUATE) BUN/Creatinine Ratio 32 (6-20) Total Bilirubin 0.3 mg/dL (0.2-1.0) Aspartate Amino Transf (AST/SGOT) 64 U/L (15-37) Alanine Aminotransferase (ALT/SGPT) 47 U/L (14-59) Alkaline Phosphatase 63 U/L (46-116) Total Protein 6.1 g/dL (6.4-8.2) Albumin 1.8 g/dL (3.4-5.0) Albumin/Globulin Ratio 0.4 (1.0-1.7) Test 11/25/18 08:15 11/25/18 11:50 11/25/18 16:58 11/25/18 20:41 Glucose (Fingerstick) 157 mg/dL (70-99) 255 mg/dL (70-99) 255 mg/dL (70-99) 193 mg/dL (70-99) Test 11/26/18 03:35 11/26/18 07:00 11/26/18 11:20 White Blood Count 8.9 x10^3/uL (4.0-11.0) Red Blood Count 3.65 x10^6/uL (3.50-5.40) Hemoglobin 9.7 g/dL (12.0-15.5) Hematocrit 30.7 % (36.0-47.0) Mean Corpuscular Volume 84 fL (79-100) Mean Corpuscular Hemoglobin 27 pg (25-35) Mean Corpuscular Hemoglobin Concent 32 g/dL (31-37) Red Cell Distribution Width 15.8 % (11.5-14.5) Platelet Count 126 x10^3/uL (140-400) Neutrophils (%) (Auto) 86 % (31-73) Lymphocytes (%) (Auto) 9 % (24-48) Monocytes (%) (Auto) 5 % (0-9) Eosinophils (%) (Auto) 0 % (0-3) Basophils (%) (Auto) 0 % (0-3) Neutrophils # (Auto) 7.7 x10^3uL (1.8-7.7) Lymphocytes # (Auto) 0.8 x10^3/uL (1.0-4.8) Monocytes # (Auto) 0.4 x10^3/uL (0.0-1.1) Eosinophils # (Auto) 0.0 x10^3/uL (0.0-0.7) Basophils # (Auto) 0.0 x10^3/uL (0.0-0.2) Sodium Level 142 mmol/L (136-145) Potassium Level 5.4 mmol/L (3.5-5.1) Chloride Level 106 mmol/L (98-107) Carbon Dioxide Level 30 mmol/L (21-32) Anion Gap 6 (6-14) Blood Urea Nitrogen 50 mg/dL (7-20) Creatinine 1.3 mg/dL (0.6-1.0) Estimated GFR (Cockcroft-Gault) 39.4 BUN/Creatinine Ratio 38 (6-20) Glucose Level 182 mg/dL (70-99) Calcium Level 8.1 mg/dL (8.5-10.1) Total Bilirubin 0.3 mg/dL (0.2-1.0) Aspartate Amino Transf (AST/SGOT) 36 U/L (15-37) Alanine Aminotransferase (ALT/SGPT) 35 U/L (14-59) Alkaline Phosphatase 56 U/L (46-116) Total Protein 5.7 g/dL (6.4-8.2) Albumin 1.8 g/dL (3.4-5.0) Albumin/Globulin Ratio 0.5 (1.0-1.7) Glucose (Fingerstick) 176 mg/dL (70-99) 230 mg/dL (70-99) Laboratory Tests Test 11/25/18 16:58 11/25/18 20:41 11/26/18 03:35 11/26/18 07:00 Glucose (Fingerstick) 255 mg/dL (70-99) 193 mg/dL (70-99) 176 mg/dL (70-99) White Blood Count 8.9 x10^3/uL (4.0-11.0) Red Blood Count 3.65 x10^6/uL (3.50-5.40) Hemoglobin 9.7 g/dL (12.0-15.5) Hematocrit 30.7 % (36.0-47.0) Mean Corpuscular Volume 84 fL (79-100) Mean Corpuscular Hemoglobin 27 pg (25-35) Mean Corpuscular Hemoglobin Concent 32 g/dL (31-37) Red Cell Distribution Width 15.8 % (11.5-14.5) Platelet Count 126 x10^3/uL (140-400) Neutrophils (%) (Auto) 86 % (31-73) Lymphocytes (%) (Auto) 9 % (24-48) Monocytes (%) (Auto) 5 % (0-9) Eosinophils (%) (Auto) 0 % (0-3) Basophils (%) (Auto) 0 % (0-3) Neutrophils # (Auto) 7.7 x10^3uL (1.8-7.7) Lymphocytes # (Auto) 0.8 x10^3/uL (1.0-4.8) Monocytes # (Auto) 0.4 x10^3/uL (0.0-1.1) Eosinophils # (Auto) 0.0 x10^3/uL (0.0-0.7) Basophils # (Auto) 0.0 x10^3/uL (0.0-0.2) Sodium Level 142 mmol/L (136-145) Potassium Level 5.4 mmol/L (3.5-5.1) Chloride Level 106 mmol/L (98-107) Carbon Dioxide Level 30 mmol/L (21-32) Anion Gap 6 (6-14) Blood Urea Nitrogen 50 mg/dL (7-20) Creatinine 1.3 mg/dL (0.6-1.0) Estimated GFR (Cockcroft-Gault) 39.4 BUN/Creatinine Ratio 38 (6-20) Glucose Level 182 mg/dL (70-99) Calcium Level 8.1 mg/dL (8.5-10.1) Total Bilirubin 0.3 mg/dL (0.2-1.0) Aspartate Amino Transf (AST/SGOT) 36 U/L (15-37) Alanine Aminotransferase (ALT/SGPT) 35 U/L (14-59) Alkaline Phosphatase 56 U/L (46-116) Total Protein 5.7 g/dL (6.4-8.2) Albumin 1.8 g/dL (3.4-5.0) Albumin/Globulin Ratio 0.5 (1.0-1.7) Test 11/26/18 11:20 Glucose (Fingerstick) 230 mg/dL (70-99) Medications Active Scripts Medications Dose Route/Sig Max Daily Dose Days Date Category Dose Instructions Potassium Chloride 20 Meq Tablet.er 40 Meq PO DAILY 11/22/18 Reported Mucinex (Guaifenesin) 600 Mg Tablet.er 1 Tab PO BID 11/22/18 Reported Xanax (Alprazolam) 0.25 Mg Tablet 0.25 Mg PO PRN Q6HRS PRN 11/22/18 Reported Afrin (Oxymetazoline Hcl) 30 Ml [place] 30 Ml NS PRN Q2HR PRN 11/22/18 Reported Prednisone (Prednisone) 10 Mg Tablet 10 Mg PO UD 08/29/18 Rx Take 5 tablets by mouth daily for 2 days, then take 4 tablets by mouth daily for 2 days, then take 3 tablets by mouth daily for 2 days, then take 2 tablets by mouth daily for 2 days, then take 1 tablets by mouth daily for 2 days, then stop. Milk Of Magnesia (Magnesium Hydroxide) 400 Mg/5 Ml Oral.susp 2,400 Mg PO PRN Q12HR PRN 10 08/20/18 Rx Tylenol (Acetaminophen) 325 Mg Tablet 650 Mg PO TID PRN PRN 04/11/16 Reported Aspir 81 (Aspirin) 81 Mg Tablet.dr 1 Tab PO DAILY 04/11/16 Reported Iron Supplement (Ferrous Sulfate) 325 Mg Tablet 1 Tab PO DAILY 11/10/15 Reported Advair 250-50 Diskus (Fluticasone/Salmeterol) 1 Each Disk.w.dev 1 Puff IH BID 05/06/15 Reported Duoneb 0.5-3(2.5) Mg/3 Ml (Albuterol/Ipratropium) 3 Ml Ampul.neb 3 Ml IH Q4HRS PRN 05/06/15 Reported Pravastatin Sodium 10 Mg Tablet 1 Tab PO QHS 09/16/14 Reported Carvedilol (Carvedilol) 6.25 Mg Tablet 1 Tab PO BID 09/16/14 Reported Torsemide 20 Mg Tablet 40 Mg PO BID 11/22/18 Reported Comments cxr reviewed Mild worsening of right lung base infiltrate/atelectasis and small effusion. Left lung atelectasis at the bases similar. Impression . ASSESSMENT: 1. Rdisl-qy-kllptec hypercapnic respiratory failure. 2. Positive influenza A. 3. Acute exacerbation of chronic obstructive pulmonary disease. 4. Abnormal x-ray compatible with some atelectasis. 5. History of methicillin-susceptible Staphylococcus aureus bronchitis. 6. Abnormal D-dimer, nonspecific. 7. History of congestive heart failure. 8. sepsis Plan . 1. BiPAP p.r.n. during day cont at night 2. cont abx per id 3. Tamiflu. 4. BD 5. solumedrol to q 12 6. elevate hob 7. cxr, reviewed 8. repeat ABG today discussed w pt and rn SHERON URENA MD Nov 26, 2018 12:05
[2018-11-26 14:45] VITALS: BP 146/85
[2018-11-26 15:43] LABS: BASE EXCESS ABG 4 mmol/L (-3-3); HCO3 ABG 30 mmol/L (21-28); PCO2 ABG 54 mmHg (35-46); PO2 ABG 88 mmHg (65-108); SAT O2 ABG 96 % (92-99)
[2018-11-26 15:44] LABS: FIO2 ABG 32
[2018-11-26 19:10] VITALS: BP 162/70
[2018-11-26] MEDS: ATORVASTATIN CALCIUM 10 MG TABLET. PO SCH (21:00)
[2018-11-26] MEDS: ALPRAZolam 0.25 MG TABLET PO PRN (22:23)
[2018-11-26 23:18] VITALS: BP 137/63
[2018-11-27 02:53] VITALS: BP 161/67
[2018-11-27] MEDS: IPRATRPIUM/ALBUTEROL 0.5/2.5MG 3 ML NEBU. NEB SCH ×6 (02:53→23:47)
--- NOTE | 2018-11-27 03:55 | RAD ---
CHEST AP ONLY CLINICAL INDICATION: HYPOXIA COMPARISON: 11/24/2018 FINDINGS: Patient is rotated to the left side. Heart is mildly enlarged in size. Lungs are hyperinflated with diffuse interstitial opacities. Bibasilar patchy opacity. No pneumothorax. Blunting of the right costophrenic angle. Visualized bony thorax within normal limits. IMPRESSION: 1. Findings COPD with superimposed interstitial pulmonary edema or atypical/viral infection. 2. Bibasilar patchy opacities may be secondary to subsegmental atelectasis, aspiration or pneumonia. 3. Trace right pleural effusion. Electronically signed by: Chandler Murdock DO (11/27/2018 3:52 AM) [facility]
[2018-11-27 04:15] LABS: BASO % 0 % (0-3); EOS % 0 % (0-3); HEMATOCRIT 32.1 % (36.0-47.0); LYMPH # 0.8 x10^3/uL (1.0-4.8); LYMPH % 9 % (24-48); MEAN CORPUSCULAR HEMOGLOBIN 26 pg (25-35); MEAN CORPUSCULAR HGB CONC 31 g/dL (31-37); MEAN CORPUSCULAR VOLUME 84 fL (79-100); MONO # 0.5 x10^3/uL (0.0-1.1); MONO % 5 % (0-9); NEUT # 7.7 x10^3uL (1.8-7.7); NEUT % 86 % (31-73); PLATELET COUNT 124 x10^3/uL (140-400); RED BLOOD COUNT 3.82 x10^6/uL (3.50-5.40); RED CELL DISTRIBUTION WIDTH 15.7 % (11.5-14.5); WHITE BLOOD COUNT 8.9 x10^3/uL (4.0-11.0)
[2018-11-27 04:53] LABS: ALBUMIN 1.9 g/dL (3.4-5.0); ALBUMIN/GLOBULIN RATIO 0.5 (1.0-1.7); CALCIUM 8.3 mg/dL (8.5-10.1); CREATININE 1.2 mg/dL (0.6-1.0); GFR 43.2; POTASSIUM 5.5 mmol/L (3.5-5.1); TOTAL BILIRUBIN 0.3 mg/dL (0.2-1.0); TOTAL PROTEIN 6.1 g/dL (6.4-8.2)
--- NOTE | 2018-11-27 06:50 | PDOC ---
Infectious Disease Note Subjective Subjective Says leaning towards [facility], doesn't believe can care for self at home Breathing alright - but still SOA with min activity Denies cough, SOA, CP, N/V, F/C/aches/Rash ROS ROS o/w neg Vital Sign Vital Signs Vital Signs Date Time Temp Pulse Resp B/P (MAP) Pulse Ox O2 Delivery O2 Flow Rate FiO2 11/27/18 02:53 97.7 63 22 161/67 (98) 96 Nasal Cannula 3.0 97.7 Physical Exam PHYSICAL EXAM GENERAL: Sitting on side of bed after using bedside commode HEENT: Oral mucosa moist, no thrush NECK: Supple. LUNGS: Improved aeration, mild labored HEART: S1, S2. ABDOMEN: Soft, bowel sounds present, nontender, nondistended. No rebound, no guarding. EXTREMITIES: No edema, no cyanosis. NEUROLOGIC: , conversant SKIN: Warm, dry, no generalized rash. PIV Labs Lab Laboratory Tests Test 11/26/18 07:00 11/26/18 11:20 11/26/18 15:30 11/26/18 16:39 Glucose (Fingerstick) 176 mg/dL (70-99) 230 mg/dL (70-99) 274 mg/dL (70-99) O2 Saturation 96 % (92-99) Arterial Blood pH 7.37 (7.35-7.45) Arterial Blood pCO2 at Patient Temp 54 mmHg (35-46) Arterial Blood pO2 at Patient Temp 88 mmHg (65-108) Arterial Blood HCO3 30 mmol/L (21-28) Arterial Blood Base Excess 4 mmol/L (-3-3) FiO2 32 Test 11/26/18 20:47 11/27/18 03:30 Glucose (Fingerstick) 233 mg/dL (70-99) White Blood Count 8.9 x10^3/uL (4.0-11.0) Red Blood Count 3.82 x10^6/uL (3.50-5.40) Hemoglobin 10.0 g/dL (12.0-15.5) Hematocrit 32.1 % (36.0-47.0) Mean Corpuscular Volume 84 fL (79-100) Mean Corpuscular Hemoglobin 26 pg (25-35) Mean Corpuscular Hemoglobin Concent 31 g/dL (31-37) Red Cell Distribution Width 15.7 % (11.5-14.5) Platelet Count 124 x10^3/uL (140-400) Neutrophils (%) (Auto) 86 % (31-73) Lymphocytes (%) (Auto) 9 % (24-48) Monocytes (%) (Auto) 5 % (0-9) Eosinophils (%) (Auto) 0 % (0-3) Basophils (%) (Auto) 0 % (0-3) Neutrophils # (Auto) 7.7 x10^3uL (1.8-7.7) Lymphocytes # (Auto) 0.8 x10^3/uL (1.0-4.8) Monocytes # (Auto) 0.5 x10^3/uL (0.0-1.1) Eosinophils # (Auto) 0.0 x10^3/uL (0.0-0.7) Basophils # (Auto) 0.0 x10^3/uL (0.0-0.2) Sodium Level 141 mmol/L (136-145) Potassium Level 5.5 mmol/L (3.5-5.1) Chloride Level 104 mmol/L (98-107) Carbon Dioxide Level 33 mmol/L (21-32) Anion Gap 4 (6-14) Blood Urea Nitrogen 49 mg/dL (7-20) Creatinine 1.2 mg/dL (0.6-1.0) Estimated GFR (Cockcroft-Gault) 43.2 BUN/Creatinine Ratio 41 (6-20) Glucose Level 200 mg/dL (70-99) Calcium Level 8.3 mg/dL (8.5-10.1) Total Bilirubin 0.3 mg/dL (0.2-1.0) Aspartate Amino Transf (AST/SGOT) 41 U/L (15-37) Alanine Aminotransferase (ALT/SGPT) 45 U/L (14-59) Alkaline Phosphatase 65 U/L (46-116) Total Protein 6.1 g/dL (6.4-8.2) Albumin 1.9 g/dL (3.4-5.0) Albumin/Globulin Ratio 0.5 (1.0-1.7) Micro Microbiology 11/22/18 Blood Culture - Preliminary, Resulted NO GROWTH AFTER 3 DAYS Objective Assessment Sepsis pulm source Febrile improved Influenza A positive 11/22 - tamiflu completed REY - improved Lactic acidosis - better Acute on chronic hypoxic resp failure, improving Elevated D dimer,VQ scan neg for PE COPD on home O2 [facility] resident DM h/o CHF Anemia Doxycycline allergy h/o MRSA nares Plan Plan of Care Cont Augmentin for 5 more days Steroids per Pulm f/u cults Maintain aspiration precautions Supportive care KEVIN JIN MD Nov 27, 2018 06:50
[2018-11-27 07:00] VITALS: BP 173/83
[2018-11-27] MEDS: BUDESONIDE 0.5 MG/2 ML NEBU. NEB SCH ×2 (07:20→18:34)
[2018-11-27] MEDS: POTASSIUM CHLORIDE 20 MEQ TABLET.ER. PO SCH (08:00)
[2018-11-27] MEDS: INSULIN LISPRO 300 UNITS/3 ML INSULN.PEN. SQ SCH ×3 (08:16→17:42)
[2018-11-27] MEDS: LACTOBACILLUS RHAMNOSUS GG 1 CAPSULE. PO SCH ×2 (08:17→21:51)
[2018-11-27] MEDS: FERROUS SULFATE 325 MG TABLET. PO SCH (08:17)
[2018-11-27] MEDS: methylPREDNISolone SOD SUCC PF 40 MG/ML VIAL. IV SCH ×2 (08:17→17:41)
[2018-11-27] MEDS: ASPIRIN ENTERIC COATED 81 MG TABLET.DR. PO SCH (08:17)
[2018-11-27] MEDS: AMOXICILLIN/K CLAV 500/125MG TABLET. PO SCH ×2 (08:17→21:51)
[2018-11-27] MEDS: OSELTAMIVIR 30 MG CAPSULE PO SCH (08:18)
[2018-11-27] MEDS: CARVEDILOL 6.25 MG TABLET. PO SCH ×2 (08:19→17:41)
[2018-11-27] MEDS: NYSTATIN TOPICAL POWDER 15GM BOTTLE. TP SCH ×2 (08:28→21:51)
--- NOTE | 2018-11-27 10:40 | PDOC ---
PULMONARY PROGRESS NOTES Subjective sob, cough better, no pain, didnt use bipap Vitals Vital Signs Date Time Temp Pulse Resp B/P (MAP) Pulse Ox O2 Delivery O2 Flow Rate FiO2 11/27/18 08:19 63 173/83 11/27/18 07:20 96 Nasal Cannula 3.0 11/27/18 07:00 97.7 24 97.7 ROS: No Nausea, No Chest Pain, No Abdominal Pain, No Increase Cough General: Alert, No acute distress HEENT: Other (nc at perrl nose throat clear) Lungs: Other (a few end exp wheeaing, dull at bases) Cardiovascular: S1, S2 Abdomen: Soft, Non-tender Neuro Exam: Alert Extremities: Other (trace edema) Skin: Warm Labs Laboratory Tests Test 11/25/18 11:50 11/25/18 16:58 11/25/18 20:41 11/26/18 03:35 Glucose (Fingerstick) 255 mg/dL (70-99) 255 mg/dL (70-99) 193 mg/dL (70-99) White Blood Count 8.9 x10^3/uL (4.0-11.0) Red Blood Count 3.65 x10^6/uL (3.50-5.40) Hemoglobin 9.7 g/dL (12.0-15.5) Hematocrit 30.7 % (36.0-47.0) Mean Corpuscular Volume 84 fL (79-100) Mean Corpuscular Hemoglobin 27 pg (25-35) Mean Corpuscular Hemoglobin Concent 32 g/dL (31-37) Red Cell Distribution Width 15.8 % (11.5-14.5) Platelet Count 126 x10^3/uL (140-400) Neutrophils (%) (Auto) 86 % (31-73) Lymphocytes (%) (Auto) 9 % (24-48) Monocytes (%) (Auto) 5 % (0-9) Eosinophils (%) (Auto) 0 % (0-3) Basophils (%) (Auto) 0 % (0-3) Neutrophils # (Auto) 7.7 x10^3uL (1.8-7.7) Lymphocytes # (Auto) 0.8 x10^3/uL (1.0-4.8) Monocytes # (Auto) 0.4 x10^3/uL (0.0-1.1) Eosinophils # (Auto) 0.0 x10^3/uL (0.0-0.7) Basophils # (Auto) 0.0 x10^3/uL (0.0-0.2) Sodium Level 142 mmol/L (136-145) Potassium Level 5.4 mmol/L (3.5-5.1) Chloride Level 106 mmol/L (98-107) Carbon Dioxide Level 30 mmol/L (21-32) Anion Gap 6 (6-14) Blood Urea Nitrogen 50 mg/dL (7-20) Creatinine 1.3 mg/dL (0.6-1.0) Estimated GFR (Cockcroft-Gault) 39.4 BUN/Creatinine Ratio 38 (6-20) Glucose Level 182 mg/dL (70-99) Calcium Level 8.1 mg/dL (8.5-10.1) Total Bilirubin 0.3 mg/dL (0.2-1.0) Aspartate Amino Transf (AST/SGOT) 36 U/L (15-37) Alanine Aminotransferase (ALT/SGPT) 35 U/L (14-59) Alkaline Phosphatase 56 U/L (46-116) Total Protein 5.7 g/dL (6.4-8.2) Albumin 1.8 g/dL (3.4-5.0) Albumin/Globulin Ratio 0.5 (1.0-1.7) Test 11/26/18 07:00 11/26/18 11:20 11/26/18 15:30 11/26/18 16:39 Glucose (Fingerstick) 176 mg/dL (70-99) 230 mg/dL (70-99) 274 mg/dL (70-99) O2 Saturation 96 % (92-99) Arterial Blood pH 7.37 (7.35-7.45) Arterial Blood pCO2 at Patient Temp 54 mmHg (35-46) Arterial Blood pO2 at Patient Temp 88 mmHg (65-108) Arterial Blood HCO3 30 mmol/L (21-28) Arterial Blood Base Excess 4 mmol/L (-3-3) FiO2 32 Test 11/26/18 20:47 11/27/18 03:30 11/27/18 07:11 Glucose (Fingerstick) 233 mg/dL (70-99) 168 mg/dL (70-99) White Blood Count 8.9 x10^3/uL (4.0-11.0) Red Blood Count 3.82 x10^6/uL (3.50-5.40) Hemoglobin 10.0 g/dL (12.0-15.5) Hematocrit 32.1 % (36.0-47.0) Mean Corpuscular Volume 84 fL (79-100) Mean Corpuscular Hemoglobin 26 pg (25-35) Mean Corpuscular Hemoglobin Concent 31 g/dL (31-37) Red Cell Distribution Width 15.7 % (11.5-14.5) Platelet Count 124 x10^3/uL (140-400) Neutrophils (%) (Auto) 86 % (31-73) Lymphocytes (%) (Auto) 9 % (24-48) Monocytes (%) (Auto) 5 % (0-9) Eosinophils (%) (Auto) 0 % (0-3) Basophils (%) (Auto) 0 % (0-3) Neutrophils # (Auto) 7.7 x10^3uL (1.8-7.7) Lymphocytes # (Auto) 0.8 x10^3/uL (1.0-4.8) Monocytes # (Auto) 0.5 x10^3/uL (0.0-1.1) Eosinophils # (Auto) 0.0 x10^3/uL (0.0-0.7) Basophils # (Auto) 0.0 x10^3/uL (0.0-0.2) Sodium Level 141 mmol/L (136-145) Potassium Level 5.5 mmol/L (3.5-5.1) Chloride Level 104 mmol/L (98-107) Carbon Dioxide Level 33 mmol/L (21-32) Anion Gap 4 (6-14) Blood Urea Nitrogen 49 mg/dL (7-20) Creatinine 1.2 mg/dL (0.6-1.0) Estimated GFR (Cockcroft-Gault) 43.2 BUN/Creatinine Ratio 41 (6-20) Glucose Level 200 mg/dL (70-99) Calcium Level 8.3 mg/dL (8.5-10.1) Total Bilirubin 0.3 mg/dL (0.2-1.0) Aspartate Amino Transf (AST/SGOT) 41 U/L (15-37) Alanine Aminotransferase (ALT/SGPT) 45 U/L (14-59) Alkaline Phosphatase 65 U/L (46-116) Total Protein 6.1 g/dL (6.4-8.2) Albumin 1.9 g/dL (3.4-5.0) Albumin/Globulin Ratio 0.5 (1.0-1.7) Laboratory Tests Test 11/26/18 11:20 11/26/18 15:30 11/26/18 16:39 11/26/18 20:47 Glucose (Fingerstick) 230 mg/dL (70-99) 274 mg/dL (70-99) 233 mg/dL (70-99) O2 Saturation 96 % (92-99) Arterial Blood pH 7.37 (7.35-7.45) Arterial Blood pCO2 at Patient Temp 54 mmHg (35-46) Arterial Blood pO2 at Patient Temp 88 mmHg (65-108) Arterial Blood HCO3 30 mmol/L (21-28) Arterial Blood Base Excess 4 mmol/L (-3-3) FiO2 32 Test 11/27/18 03:30 11/27/18 07:11 White Blood Count 8.9 x10^3/uL (4.0-11.0) Red Blood Count 3.82 x10^6/uL (3.50-5.40) Hemoglobin 10.0 g/dL (12.0-15.5) Hematocrit 32.1 % (36.0-47.0) Mean Corpuscular Volume 84 fL (79-100) Mean Corpuscular Hemoglobin 26 pg (25-35) Mean Corpuscular Hemoglobin Concent 31 g/dL (31-37) Red Cell Distribution Width 15.7 % (11.5-14.5) Platelet Count 124 x10^3/uL (140-400) Neutrophils (%) (Auto) 86 % (31-73) Lymphocytes (%) (Auto) 9 % (24-48) Monocytes (%) (Auto) 5 % (0-9) Eosinophils (%) (Auto) 0 % (0-3) Basophils (%) (Auto) 0 % (0-3) Neutrophils # (Auto) 7.7 x10^3uL (1.8-7.7) Lymphocytes # (Auto) 0.8 x10^3/uL (1.0-4.8) Monocytes # (Auto) 0.5 x10^3/uL (0.0-1.1) Eosinophils # (Auto) 0.0 x10^3/uL (0.0-0.7) Basophils # (Auto) 0.0 x10^3/uL (0.0-0.2) Sodium Level 141 mmol/L (136-145) Potassium Level 5.5 mmol/L (3.5-5.1) Chloride Level 104 mmol/L (98-107) Carbon Dioxide Level 33 mmol/L (21-32) Anion Gap 4 (6-14) Blood Urea Nitrogen 49 mg/dL (7-20) Creatinine 1.2 mg/dL (0.6-1.0) Estimated GFR (Cockcroft-Gault) 43.2 BUN/Creatinine Ratio 41 (6-20) Glucose Level 200 mg/dL (70-99) Calcium Level 8.3 mg/dL (8.5-10.1) Total Bilirubin 0.3 mg/dL (0.2-1.0) Aspartate Amino Transf (AST/SGOT) 41 U/L (15-37) Alanine Aminotransferase (ALT/SGPT) 45 U/L (14-59) Alkaline Phosphatase 65 U/L (46-116) Total Protein 6.1 g/dL (6.4-8.2) Albumin 1.9 g/dL (3.4-5.0) Albumin/Globulin Ratio 0.5 (1.0-1.7) Glucose (Fingerstick) 168 mg/dL (70-99) Medications Active Scripts Medications Dose Route/Sig Max Daily Dose Days Date Category Dose Instructions Potassium Chloride 20 Meq Tablet.er 40 Meq PO DAILY 11/22/18 Reported Mucinex (Guaifenesin) 600 Mg Tablet.er 1 Tab PO BID 11/22/18 Reported Xanax (Alprazolam) 0.25 Mg Tablet 0.25 Mg PO PRN Q6HRS PRN 11/22/18 Reported Afrin (Oxymetazoline Hcl) 30 Ml [place] 30 Ml NS PRN Q2HR PRN 11/22/18 Reported Prednisone (Prednisone) 10 Mg Tablet 10 Mg PO UD 08/29/18 Rx Take 5 tablets by mouth daily for 2 days, then take 4 tablets by mouth daily for 2 days, then take 3 tablets by mouth daily for 2 days, then take 2 tablets by mouth daily for 2 days, then take 1 tablets by mouth daily for 2 days, then stop. Milk Of Magnesia (Magnesium Hydroxide) 400 Mg/5 Ml Oral.susp 2,400 Mg PO PRN Q12HR PRN 10 08/20/18 Rx Tylenol (Acetaminophen) 325 Mg Tablet 650 Mg PO TID PRN PRN 04/11/16 Reported Aspir 81 (Aspirin) 81 Mg Tablet.dr 1 Tab PO DAILY 04/11/16 Reported Iron Supplement (Ferrous Sulfate) 325 Mg Tablet 1 Tab PO DAILY 11/10/15 Reported Advair 250-50 Diskus (Fluticasone/Salmeterol) 1 Each Disk.w.dev 1 Puff IH BID 05/06/15 Reported Duoneb 0.5-3(2.5) Mg/3 Ml (Albuterol/Ipratropium) 3 Ml Ampul.neb 3 Ml IH Q4HRS PRN 05/06/15 Reported Pravastatin Sodium 10 Mg Tablet 1 Tab PO QHS 09/16/14 Reported Carvedilol (Carvedilol) 6.25 Mg Tablet 1 Tab PO BID 09/16/14 Reported Torsemide 20 Mg Tablet 40 Mg PO BID 11/22/18 Reported Comments cxr reviewed Mild worsening of right lung base infiltrate/atelectasis and small effusion. Left lung atelectasis at the bases similar. Impression . ASSESSMENT: 1. [id number]-syvahyq hypercapnic respiratory failure. 2. Positive influenza A. 3. Acute exacerbation of chronic obstructive pulmonary disease. 4. Abnormal x-ray compatible with some atelectasis. 5. History of methicillin-susceptible Staphylococcus aureus bronchitis. 6. Abnormal D-dimer, nonspecific.no PE 7. History of congestive heart failure. 8. sepsis Plan . 1. BiPAP p.r.n. during day cont at night 2. cont abx per id 3. Tamiflu. 4. BD 5. solumedrol taper 6. elevate hob 7. cxr, reviewed 8. repeat ABG compensated rehab discussed w pt and rn SHERON URENA MD Nov 27, 2018 10:40
[2018-11-27 11:14] VITALS: BP 154/74
--- NOTE | 2018-11-27 11:34 | PDOC ---
PROGRESS NOTES Chief Complaint Chief Complaint Rcxbq-[id number]-[id number] respiratory failure Sepsis secondary to influenza A, pneumonia 3 Mild worsening of right lung base infiltrate/atelectasis and small effusion. Left lung atelectasis at the bases similar. Influenza A Pneumonia, HCAP History of COPD Elevated D dimer Mtunuyyu-ia-beazvl protein-calorie malnutrition Hypothyroidism (TSH > 6) ?Diastolic CHF (BNP 220) 11/27 hypercapnic on abg to use bipap day and night/ high risk without for worsening History of Present Illness History of Present Illness Ms. Schwartz is a 78 yo female with multiple hospitalizations, history of COPD, presenting with worsening shortness of breath, found to have elevated D-Dimer, pneumonia and influenza A positive from her SNF. Pt was seen and examined this morning She was resting in bed without BiPAP this morning, still requiring oxygen therapy via NC She still has some residual mild respiratory distress Discussed with RN ID and Pulmonology consulted. Vitals Vitals Vital Signs Date Time Temp Pulse Resp B/P (MAP) Pulse Ox O2 Delivery O2 Flow Rate FiO2 11/27/18 11:14 97.5 66 20 154/74 (100) 94 Nasal Cannula 3.0 97.5 Physical Exam Physical Exam GENERAL: Sitting on side of bed after using bedside commode HEENT: Oral mucosa moist, no thrush NECK: Supple. LUNGS: Improved aeration, mild labored HEART: S1, S2. ABDOMEN: Soft, bowel sounds present, nontender, nondistended. No rebound, no guarding. EXTREMITIES: No edema, no cyanosis. NEUROLOGIC: , conversant SKIN: Warm, dry, no generalized rash. PIV General: Alert, Oriented X3, Cooperative, mild distress, Other (sleepy) Heart: Regular rate, Normal S1, No murmurs Lungs: Other (a few end exp wheeaing, dull at bases) Abdomen: Normal bowel sounds, Soft, No tenderness Extremities: No clubbing, No cyanosis Skin: No rashes, No significant lesion Labs LABS CHEST AP ONLY CLINICAL INDICATION: HYPOXIA COMPARISON: 11/24/2018 FINDINGS: Patient is rotated to the left side. Heart is mildly enlarged in size. Lungs are hyperinflated with diffuse interstitial opacities. Bibasilar patchy opacity. No pneumothorax. Blunting of the right costophrenic angle. Visualized bony thorax within normal limits. IMPRESSION: 1. Findings COPD with superimposed interstitial pulmonary edema or atypical/viral infection. 2. Bibasilar patchy opacities may be secondary to subsegmental atelectasis, aspiration or pneumonia. 3. Trace right pleural effusion. Electronically signed by: Chandler Murdock DO (11/27/2018 3:52 AM) [facility] [place] [facility] Laboratory Tests Test 11/26/18 15:30 11/26/18 16:39 11/26/18 20:47 11/27/18 03:30 O2 Saturation 96 % (92-99) Arterial Blood pH 7.37 (7.35-7.45) Arterial Blood pCO2 at Patient Temp 54 mmHg (35-46) Arterial Blood pO2 at Patient Temp 88 mmHg (65-108) Arterial Blood HCO3 30 mmol/L (21-28) Arterial Blood Base Excess 4 mmol/L (-3-3) FiO2 32 Glucose (Fingerstick) 274 mg/dL (70-99) 233 mg/dL (70-99) White Blood Count 8.9 x10^3/uL (4.0-11.0) Red Blood Count 3.82 x10^6/uL (3.50-5.40) Hemoglobin 10.0 g/dL (12.0-15.5) Hematocrit 32.1 % (36.0-47.0) Mean Corpuscular Volume 84 fL (79-100) Mean Corpuscular Hemoglobin 26 pg (25-35) Mean Corpuscular Hemoglobin Concent 31 g/dL (31-37) Red Cell Distribution Width 15.7 % (11.5-14.5) Platelet Count 124 x10^3/uL (140-400) Neutrophils (%) (Auto) 86 % (31-73) Lymphocytes (%) (Auto) 9 % (24-48) Monocytes (%) (Auto) 5 % (0-9) Eosinophils (%) (Auto) 0 % (0-3) Basophils (%) (Auto) 0 % (0-3) Neutrophils # (Auto) 7.7 x10^3uL (1.8-7.7) Lymphocytes # (Auto) 0.8 x10^3/uL (1.0-4.8) Monocytes # (Auto) 0.5 x10^3/uL (0.0-1.1) Eosinophils # (Auto) 0.0 x10^3/uL (0.0-0.7) Basophils # (Auto) 0.0 x10^3/uL (0.0-0.2) Sodium Level 141 mmol/L (136-145) Potassium Level 5.5 mmol/L (3.5-5.1) Chloride Level 104 mmol/L (98-107) Carbon Dioxide Level 33 mmol/L (21-32) Anion Gap 4 (6-14) Blood Urea Nitrogen 49 mg/dL (7-20) Creatinine 1.2 mg/dL (0.6-1.0) Estimated GFR (Cockcroft-Gault) 43.2 BUN/Creatinine Ratio 41 (6-20) Glucose Level 200 mg/dL (70-99) Calcium Level 8.3 mg/dL (8.5-10.1) Total Bilirubin 0.3 mg/dL (0.2-1.0) Aspartate Amino Transf (AST/SGOT) 41 U/L (15-37) Alanine Aminotransferase (ALT/SGPT) 45 U/L (14-59) Alkaline Phosphatase 65 U/L (46-116) Total Protein 6.1 g/dL (6.4-8.2) Albumin 1.9 g/dL (3.4-5.0) Albumin/Globulin Ratio 0.5 (1.0-1.7) Test 11/27/18 07:11 Glucose (Fingerstick) 168 mg/dL (70-99) Assessment and Plan Assessmemt and Plan Problems Medical Problems: (1) Elevated d-dimer Status: Acute Comment Review of Relevant I have reviewed the following items [place] (where applicable) has been applied. Labs Laboratory Tests Test 11/25/18 11:50 11/25/18 16:58 11/25/18 20:41 11/26/18 03:35 Glucose (Fingerstick) 255 mg/dL (70-99) 255 mg/dL (70-99) 193 mg/dL (70-99) White Blood Count 8.9 x10^3/uL (4.0-11.0) Red Blood Count 3.65 x10^6/uL (3.50-5.40) Hemoglobin 9.7 g/dL (12.0-15.5) Hematocrit 30.7 % (36.0-47.0) Mean Corpuscular Volume 84 fL (79-100) Mean Corpuscular Hemoglobin 27 pg (25-35) Mean Corpuscular Hemoglobin Concent 32 g/dL (31-37) Red Cell Distribution Width 15.8 % (11.5-14.5) Platelet Count 126 x10^3/uL (140-400) Neutrophils (%) (Auto) 86 % (31-73) Lymphocytes (%) (Auto) 9 % (24-48) Monocytes (%) (Auto) 5 % (0-9) Eosinophils (%) (Auto) 0 % (0-3) Basophils (%) (Auto) 0 % (0-3) Neutrophils # (Auto) 7.7 x10^3uL (1.8-7.7) Lymphocytes # (Auto) 0.8 x10^3/uL (1.0-4.8) Monocytes # (Auto) 0.4 x10^3/uL (0.0-1.1) Eosinophils # (Auto) 0.0 x10^3/uL (0.0-0.7) Basophils # (Auto) 0.0 x10^3/uL (0.0-0.2) Sodium Level 142 mmol/L (136-145) Potassium Level 5.4 mmol/L (3.5-5.1) Chloride Level 106 mmol/L (98-107) Carbon Dioxide Level 30 mmol/L (21-32) Anion Gap 6 (6-14) Blood Urea Nitrogen 50 mg/dL (7-20) Creatinine 1.3 mg/dL (0.6-1.0) Estimated GFR (Cockcroft-Gault) 39.4 BUN/Creatinine Ratio 38 (6-20) Glucose Level 182 mg/dL (70-99) Calcium Level 8.1 mg/dL (8.5-10.1) Total Bilirubin 0.3 mg/dL (0.2-1.0) Aspartate Amino Transf (AST/SGOT) 36 U/L (15-37) Alanine Aminotransferase (ALT/SGPT) 35 U/L (14-59) Alkaline Phosphatase 56 U/L (46-116) Total Protein 5.7 g/dL (6.4-8.2) Albumin 1.8 g/dL (3.4-5.0) Albumin/Globulin Ratio 0.5 (1.0-1.7) Test 11/26/18 07:00 11/26/18 11:20 11/26/18 15:30 11/26/18 16:39 Glucose (Fingerstick) 176 mg/dL (70-99) 230 mg/dL (70-99) 274 mg/dL (70-99) O2 Saturation 96 % (92-99) Arterial Blood pH 7.37 (7.35-7.45) Arterial Blood pCO2 at Patient Temp 54 mmHg (35-46) Arterial Blood pO2 at Patient Temp 88 mmHg (65-108) Arterial Blood HCO3 30 mmol/L (21-28) Arterial Blood Base Excess 4 mmol/L (-3-3) FiO2 32 Test 11/26/18 20:47 11/27/18 03:30 11/27/18 07:11 Glucose (Fingerstick) 233 mg/dL (70-99) 168 mg/dL (70-99) White Blood Count 8.9 x10^3/uL (4.0-11.0) Red Blood Count 3.82 x10^6/uL (3.50-5.40) Hemoglobin 10.0 g/dL (12.0-15.5) Hematocrit 32.1 % (36.0-47.0) Mean Corpuscular Volume 84 fL (79-100) Mean Corpuscular Hemoglobin 26 pg (25-35) Mean Corpuscular Hemoglobin Concent 31 g/dL (31-37) Red Cell Distribution Width 15.7 % (11.5-14.5) Platelet Count 124 x10^3/uL (140-400) Neutrophils (%) (Auto) 86 % (31-73) Lymphocytes (%) (Auto) 9 % (24-48) Monocytes (%) (Auto) 5 % (0-9) Eosinophils (%) (Auto) 0 % (0-3) Basophils (%) (Auto) 0 % (0-3) Neutrophils # (Auto) 7.7 x10^3uL (1.8-7.7) Lymphocytes # (Auto) 0.8 x10^3/uL (1.0-4.8) Monocytes # (Auto) 0.5 x10^3/uL (0.0-1.1) Eosinophils # (Auto) 0.0 x10^3/uL (0.0-0.7) Basophils # (Auto) 0.0 x10^3/uL (0.0-0.2) Sodium Level 141 mmol/L (136-145) Potassium Level 5.5 mmol/L (3.5-5.1) Chloride Level 104 mmol/L (98-107) Carbon Dioxide Level 33 mmol/L (21-32) Anion Gap 4 (6-14) Blood Urea Nitrogen 49 mg/dL (7-20) Creatinine 1.2 mg/dL (0.6-1.0) Estimated GFR (Cockcroft-Gault) 43.2 BUN/Creatinine Ratio 41 (6-20) Glucose Level 200 mg/dL (70-99) Calcium Level 8.3 mg/dL (8.5-10.1) Total Bilirubin 0.3 mg/dL (0.2-1.0) Aspartate Amino Transf (AST/SGOT) 41 U/L (15-37) Alanine Aminotransferase (ALT/SGPT) 45 U/L (14-59) Alkaline Phosphatase 65 U/L (46-116) Total Protein 6.1 g/dL (6.4-8.2) Albumin 1.9 g/dL (3.4-5.0) Albumin/Globulin Ratio 0.5 (1.0-1.7) Laboratory Tests Test 11/26/18 15:30 11/26/18 16:39 11/26/18 20:47 11/27/18 03:30 O2 Saturation 96 % (92-99) Arterial Blood pH 7.37 (7.35-7.45) Arterial Blood pCO2 at Patient Temp 54 mmHg (35-46) Arterial Blood pO2 at Patient Temp 88 mmHg (65-108) Arterial Blood HCO3 30 mmol/L (21-28) Arterial Blood Base Excess 4 mmol/L (-3-3) FiO2 32 Glucose (Fingerstick) 274 mg/dL (70-99) 233 mg/dL (70-99) White Blood Count 8.9 x10^3/uL (4.0-11.0) Red Blood Count 3.82 x10^6/uL (3.50-5.40) Hemoglobin 10.0 g/dL (12.0-15.5) Hematocrit 32.1 % (36.0-47.0) Mean Corpuscular Volume 84 fL (79-100) Mean Corpuscular Hemoglobin 26 pg (25-35) Mean Corpuscular Hemoglobin Concent 31 g/dL (31-37) Red Cell Distribution Width 15.7 % (11.5-14.5) Platelet Count 124 x10^3/uL (140-400) Neutrophils (%) (Auto) 86 % (31-73) Lymphocytes (%) (Auto) 9 % (24-48) Monocytes (%) (Auto) 5 % (0-9) Eosinophils (%) (Auto) 0 % (0-3) Basophils (%) (Auto) 0 % (0-3) Neutrophils # (Auto) 7.7 x10^3uL (1.8-7.7) Lymphocytes # (Auto) 0.8 x10^3/uL (1.0-4.8) Monocytes # (Auto) 0.5 x10^3/uL (0.0-1.1) Eosinophils # (Auto) 0.0 x10^3/uL (0.0-0.7) Basophils # (Auto) 0.0 x10^3/uL (0.0-0.2) Sodium Level 141 mmol/L (136-145) Potassium Level 5.5 mmol/L (3.5-5.1) Chloride Level 104 mmol/L (98-107) Carbon Dioxide Level 33 mmol/L (21-32) Anion Gap 4 (6-14) Blood Urea Nitrogen 49 mg/dL (7-20) Creatinine 1.2 mg/dL (0.6-1.0) Estimated GFR (Cockcroft-Gault) 43.2 BUN/Creatinine Ratio 41 (6-20) Glucose Level 200 mg/dL (70-99) Calcium Level 8.3 mg/dL (8.5-10.1) Total Bilirubin 0.3 mg/dL (0.2-1.0) Aspartate Amino Transf (AST/SGOT) 41 U/L (15-37) Alanine Aminotransferase (ALT/SGPT) 45 U/L (14-59) Alkaline Phosphatase 65 U/L (46-116) Total Protein 6.1 g/dL (6.4-8.2) Albumin 1.9 g/dL (3.4-5.0) Albumin/Globulin Ratio 0.5 (1.0-1.7) Test 11/27/18 07:11 Glucose (Fingerstick) 168 mg/dL (70-99) Microbiology 11/22/18 Blood Culture - Preliminary, Resulted NO GROWTH AFTER 4 DAYS Medications Current Medications Albuterol/ Ipratropium (Duoneb) 3 ml STK-MED ONCE .ROUTE ; Start 11/21/18 at 18: 13; Stop 11/21/18 at 18:14; Status DC Aspirin ([place] Aspirin) 325 mg 1X ONCE PO Last administered on 11/21/18at 19:55 ; Start 11/21/18 at 20:00; Stop 11/21/18 at 20:01; Status DC Ondansetron HCl (Zofran) 4 mg PRN Q8HRS PRN IV NAUSEA/VOMITING; Start 11/21/18 at 21:15; Stop 11/22/18 at 21:14; Status DC Albuterol/ Ipratropium (Duoneb) 3 ml RTQID NEB Last administered on 11/23/18at 07 :44; Start 11/22/18 at 08:00; Stop 11/23/18 at 07:59; Status DC Insulin Human Lispro (HumaLOG) 0-5 UNITS TIDWMEALS SQ Last administered on 11/27at 08:16; Start 11/22/18 at 08:00 Dextrose (Dextrose 50%-Water Syringe) 12.5 gm PRN Q15MIN PRN IV SEE COMMENTS; Start 11/21/18 at 21:15 Enoxaparin Sodium (Lovenox 100mg Syringe) 90 mg 1X ONCE SQ Last administered on 11/21/18at 22:50; Start 11/21/18 at 22:00; Stop 11/21/18 at 22:01; Status DC Albuterol/ Ipratropium (Duoneb) 3 ml 1X ONCE NEB Last administered on at 22:14; Start 11/21/18 at 22:00; Stop 11/21/18 at 22:01; Status DC Budesonide (Pulmicort) 0.5 mg RTBID NEB Last administered on 11/27/18at 07:20; Start 11/21/18 at 23:45 Labetalol HCl (Normodyne Iv Push) 10 mg PRN Q4HRS PRN IVP HYPERTENSION, SEE COMMENTS; Start 11/22/18 at 00:00; Stop 11/23/18 at 07:42; Status DC Lorazepam (Ativan) 0.5 mg PRN Q6HRS PRN IV ANXIETY / AGITATION Last administered on 11/22/18 23:37; Start 11/22/18 at 00:00 Labetalol HCl (Normodyne Iv Push) 20 mg PRN Q6HRS PRN IVP HYPERTENSION, SEE COMMENTS; Start 11/22/18 at 00:00 Lorazepam (Ativan) 0.5 mg PRN Q6HRS PRN IV ANXIETY / AGITATION; Start 11/22/18 at 00:00; Stop 11/22/18 at 14:42; Status DC Acetaminophen (Tylenol) 650 mg PRN TID PRN PO PAIN Last administered on 09:49; Start 11/22/18 at 01:45 Alprazolam (Xanax) 0.25 mg PRN Q6HRS PRN PO ANXIETY / AGITATION Last administered on 11/26/18 22:23; Start 11/22/18 at 01:45 Aspirin (Ecotrin) 81 mg DAILYWBKFT PO Last administered on 11/27/18 08:17; Start 11/22/18 at 08:00 Carvedilol (Coreg) 6.25 mg BIDWMEALS PO Last administered on 11/27/18 08:19; Start 11/22/18 at 08:00 Ferrous Sulfate (Feosol) 325 mg DAILY PO Last administered on 11/27/18 08:17; Start 11/22/18 at 09:00 Guaifenesin (Mucinex) 600 mg BID PO Last administered on 11/27/18 08:25; Start 11/22/18 at 09:00 Albuterol Sulfate (Ventolin Neb Soln) 2.5 mg PRN Q4HRS PRN NEB CONGESTION Last administered on 11/23/18 03:43; Start 11/22/18 at 01:45 Magnesium Hydroxide (Milk Of Magnesia) 2,400 mg PRN Q12HR PRN PO CONSTIPATION; Start 11/22/18 at 01:45 Prednisone (Prednisone) 10 mg DAILY PO Last administered on 11/23/18 08:41; Start 11/22/18 at 09:00; Stop 11/24/18 at 08:29; Status DC Oxymetazoline HCl (Afrin) 1 spray PRN Q2HR PRN NS nose bleeds; Start 11/22/18 at 01:45 Potassium Chloride (Klor-Con) 40 meq DAILY08 PO Last administered on 11/25/18at 09:16; Start 11/22/18 at 08:00 Atorvastatin Calcium (Lipitor) 5 mg QHS PO Last administered on 11/26/18at 21:00 ; Start 11/22/18 at 21:00 Torsemide (Demadex) 40 mg BID92 PO Last administered on 11/22/18at 16:11; Start 11/22/18 at 09:00; Stop 11/23/18 at 07:37; Status DC Morphine Sulfate (Morphine Sulfate) 2 mg PRN Q4HRS PRN IV PAIN Last administered on 11/26/18at 04:06; Start 11/22/18 at 03:15 Piperacillin Sod/ Tazobactam Sod (Zosyn Per Pharmacy) 1 each PRN DAILY PRN MC SEE COMMENTS; Start 11/22/18 at 09:00; Stop 11/24/18 at 11:24; Status DC Piperacillin Sod/ Tazobactam Sod 3.375 gm/Sodium Chloride 50 ml @ 100 mls/hr Q6HRS IV Last administered on 11/24/18at 06:00; Start 11/22/18 at 10:00; Stop 11/24 at 11:24; Status DC Nystatin (Nystop) 1 jaison BID TP Last administered on 11/27/18at 08:28; Start 11/22 at 11:00 Sodium Chloride 1,000 ml @ 250 mls/hr 1X ONCE IV Last administered on at 11:37; Start 11/22/18 at 11:00; Stop 11/22/18 at 14:59; Status DC Oseltamivir Phosphate (Tamiflu) 30 mg BID PO Last administered on 11/24/18at 08: 49; Start 11/22/18 at 12:00; Stop 11/24/18 at 11:22; Status DC Piperacillin Sod/ Tazobactam Sod (Zosyn Per Pharmacy) 1 each PRN DAILY PRN MC SEE COMMENTS; Start 11/22/18 at 12:15; Stop 11/22/18 at 12:24; Status DC Lactobacillus Rhamnosus (Culturelle) 1 cap BID PO Last administered on 08:17; Start 11/22/18 at 21:00 Albuterol/ Ipratropium (Duoneb) 3 ml RTQID NEB Last administered on 11/24/18at 07 :42; Start 11/23/18 at 12:00; Stop 11/24/18 at 08:29; Status DC Sodium Chloride 500 ml @ 500 mls/hr 1X ONCE IV Last administered on 11/23/18at 12:00; Start 11/23/18 at 12:00; Stop 11/23/18 at 12:59; Status DC Albuterol/ Ipratropium (Duoneb) 3 ml Q4HRS NEB Last administered on 11/27/18at 11:12; Start 11/24/18 at 12:00 Methylprednisolone Sodium Succinate (SOLU-Medrol 40MG VIAL) 40 mg Q8HRS IV Last administered on 11/25/18at 06:26; Start 11/24/18 at 08:30; Stop 11/25/18 at 08:52; Status DC Oseltamivir Phosphate (Tamiflu) 30 mg DAILY PO Last administered on 11/27/18 08:18; Start 11/25/18 at 09:00; Stop 11/27/18 at 09:01; Status DC Piperacillin Sod/ Tazobactam Sod 2.25 gm/Sodium Chloride 50 ml @ 100 mls/hr Q8HRS IV Last administered on 11/24/18at 14:51; Start 11/24/18 at 14:00; Stop 11/24 at 14:54; Status DC Piperacillin Sod/ Tazobactam Sod 2.25 gm/Sodium Chloride 50 ml @ 100 mls/hr Q6HRS IV Last administered on 11/26/18at 05:33; Start 11/24/18 at 20:00; Stop 08/06 at 08:59; Status DC Methylprednisolone Sodium Succinate (SOLU-Medrol 40MG VIAL) 40 mg Q12HR IV Last administered on 11/27/18 08:17; Start 11/25/18 at 09:00; Stop 11/27/18 at 10:34; Status DC Amoxicillin/ Clavulanate Potassium (Augmentin 500/ 125mg) 1 tab BID PO Last administered on 3/12/19at 08:17; Start 11/26/18 at 09:00 Methylprednisolone Sodium Succinate (SOLU-Medrol 40MG VIAL) 40 mg QPM IV ; Start 11/27/18 at 18:00 Active Scripts Active Prednisone (Prednisone) 10 Mg Tablet 10 Mg PO UD Take 5 tablets by mouth daily for 2 days, then take 4 tablets by mouth daily for 2 days, then take 3 tablets by mouth daily for 2 days, then take 2 tablets by mouth daily for 2 days, then take 1 tablets by mouth daily for 2 days, then stop. Milk Of Magnesia (Magnesium Hydroxide) 400 Mg/5 Ml Oral.susp 2,400 Mg PO PRN Q12HR PRN 10 Days Reported Potassium Chloride 20 Meq Tablet.er 40 Meq PO DAILY Mucinex (Guaifenesin) 600 Mg Tablet.er 1 Tab PO BID Xanax (Alprazolam) 0.25 Mg Tablet 0.25 Mg PO PRN Q6HRS PRN Afrin (Oxymetazoline Hcl) 30 Ml [place] 30 Ml NS PRN Q2HR PRN Tylenol (Acetaminophen) 325 Mg Tablet 650 Mg PO TID PRN PRN Aspir 81 (Aspirin) 81 Mg Tablet.dr 1 Tab PO DAILY Iron Supplement (Ferrous Sulfate) 325 Mg Tablet 1 Tab PO DAILY Advair 250-50 Diskus (Fluticasone/Salmeterol) 1 Each Disk.w.dev 1 Puff IH BID Duoneb 0.5-3(2.5) Mg/3 Ml (Albuterol/Ipratropium) 3 Ml Ampul.neb 3 Ml IH Q4HRS PRN Pravastatin Sodium 10 Mg Tablet 1 Tab PO QHS Carvedilol (Carvedilol) 6.25 Mg Tablet 1 Tab PO BID Torsemide 20 Mg Tablet 40 Mg PO BID Vitals/I & O Vital Sign - Last 24 Hours 11/26/18 11/26/18 11/26/18 11/26/18 11:54 14:45 16:02 17:30 Temp 98.3 98.3 Pulse 69 69 Resp 20 B/P (MAP) 146/85 (105) 146/85 Pulse Ox 96 93 96 O2 Delivery Nasal Cannula Nasal Cannula Nasal Cannula O2 Flow Rate 3.0 2.0 3.0 11/26/18 11/26/18 11/26/18 11/26/18 19:10 20:00 20:26 23:18 Temp 98.2 97.8 98.2 97.8 Pulse 68 67 Resp 20 22 B/P (MAP) 162/70 (100) 137/63 (87) Pulse Ox 96 95 98 O2 Delivery Nasal Cannula Nasal Cannula Nasal Cannula Nasal Cannula O2 Flow Rate 3.0 3.0 3.0 3.0 11/26/18 11/27/18 11/27/18 11/27/18 23:44 02:53 07:00 07:20 Temp 97.7 97.7 97.7 97.7 Pulse 63 64 Resp 22 24 B/P (MAP) 161/67 (98) 173/83 (113) Pulse Ox 97 96 92 96 O2 Delivery Nasal Cannula Nasal Cannula Nasal Cannula Nasal Cannula O2 Flow Rate 3.0 3.0 3.0 3.0 11/27/18 11/27/18 11/27/18 11/27/18 08:00 08:19 11:12 11:14 Temp 97.5 97.5 Pulse 63 66 Resp 20 B/P (MAP) 173/83 154/74 (100) Pulse Ox 94 94 O2 Delivery Nasal Cannula Nasal Cannula Nasal Cannula O2 Flow Rate 3.0 3.0 3.0 Intake and Output 11/26/18 11/26/18 11/27/18 15:00 23:00 07:00 Intake Total 240 ml 1020 ml 200 ml Output Total 150 ml 400 ml 400 ml Balance 90 ml 620 ml -200 ml Nutrition Consultation Dietary Evaluation: Recommendations by RD: Protein supplementation Comments: REC continue cardiac/ADA diet, add ground meats to aid with chewing while pt doesn't have her dentures REC Ensure TID, will monitor blood sugar Expected Outcomes/Goals: PO intake to meet >75% est needs Malnutrition Findings: Food and Nutrition Intake (Sev: <50% est energy req 5days Weight Status: Obese FAITH BEAN MD Nov 27, 2018 11:34
[2018-11-27 15:00] VITALS: BP 148/70
[2018-11-27 19:45] VITALS: BP 148/89
[2018-11-27] MEDS: ALPRAZolam 0.25 MG TABLET PO PRN (21:50)
[2018-11-27] MEDS: ATORVASTATIN CALCIUM 10 MG TABLET. PO SCH (21:51)
[2018-11-27] MEDS: ACETAMINOPHEN 325 MG TABLET. PO PRN (21:51)
[2018-11-27 22:45] VITALS: BP 141/61
[2018-11-28 03:00] VITALS: BP 133/58
[2018-11-28 03:55] LABS: BASO % 0 % (0-3); EOS % 0 % (0-3); HEMATOCRIT 30.5 % (36.0-47.0); HEMOGLOBIN 9.6 g/dL (12.0-15.5); LYMPH # 0.8 x10^3/uL (1.0-4.8); LYMPH % 10 % (24-48); MEAN CORPUSCULAR HEMOGLOBIN 27 pg (25-35); MEAN CORPUSCULAR HGB CONC 31 g/dL (31-37); MEAN CORPUSCULAR VOLUME 84 fL (79-100); MONO # 0.6 x10^3/uL (0.0-1.1); MONO % 8 % (0-9); NEUT # 6.6 x10^3uL (1.8-7.7); NEUT % 82 % (31-73); PLATELET COUNT 118 x10^3/uL (140-400); RED BLOOD COUNT 3.63 x10^6/uL (3.50-5.40); RED CELL DISTRIBUTION WIDTH 15.2 % (11.5-14.5); WHITE BLOOD COUNT 8.1 x10^3/uL (4.0-11.0)
[2018-11-28] MEDS: IPRATRPIUM/ALBUTEROL 0.5/2.5MG 3 ML NEBU. NEB SCH ×6 (03:55→22:49)
[2018-11-28 04:20] LABS: ALBUMIN 1.8 g/dL (3.4-5.0); ALBUMIN/GLOBULIN RATIO 0.5 (1.0-1.7); CALCIUM 8.1 mg/dL (8.5-10.1); CREATININE 1.2 mg/dL (0.6-1.0); GFR 43.2; POTASSIUM 5.3 mmol/L (3.5-5.1); TOTAL BILIRUBIN 0.3 mg/dL (0.2-1.0); TOTAL PROTEIN 5.7 g/dL (6.4-8.2)
[2018-11-28 07:00] VITALS: BP 169/70
[2018-11-28] MEDS: BUDESONIDE 0.5 MG/2 ML NEBU. NEB SCH ×2 (07:29→19:27)
[2018-11-28] MEDS: ASPIRIN ENTERIC COATED 81 MG TABLET.DR. PO SCH (08:23)
[2018-11-28] MEDS: CARVEDILOL 6.25 MG TABLET. PO SCH ×2 (08:23→17:05)
[2018-11-28] MEDS: AMOXICILLIN/K CLAV 500/125MG TABLET. PO SCH ×2 (08:23→22:41)
[2018-11-28] MEDS: NYSTATIN TOPICAL POWDER 15GM BOTTLE. TP SCH ×2 (08:24→22:44)
[2018-11-28] MEDS: FERROUS SULFATE 325 MG TABLET. PO SCH (08:24)
[2018-11-28] MEDS: LACTOBACILLUS RHAMNOSUS GG 1 CAPSULE. PO SCH ×2 (08:24→22:41)
[2018-11-28] MEDS: INSULIN LISPRO 300 UNITS/3 ML INSULN.PEN. SQ SCH ×3 (08:32→17:10)
--- NOTE | 2018-11-28 09:01 | PDOC ---
Infectious Disease Note Subjective Subjective feeling better, no energy ROS ROS no n/v/d/sob Vital Sign Vital Signs Vital Signs Date Time Temp Pulse Resp B/P (MAP) Pulse Ox O2 Delivery O2 Flow Rate FiO2 11/28/18 08:23 63 169/70 11/28/18 07:29 96 Nasal Cannula 3.0 11/28/18 07:00 97.3 18 97.3 Physical Exam PHYSICAL EXAM GENERAL: Sitting on side of bed after using bedside commode HEENT: Oral mucosa moist, no thrush NECK: Supple. LUNGS: Improved aeration, mild labored HEART: S1, S2. ABDOMEN: Soft, bowel sounds present, nontender, nondistended. No rebound, no guarding. EXTREMITIES: No edema, no cyanosis. NEUROLOGIC: , conversant SKIN: Warm, dry, no generalized rash. PIV Labs Lab Laboratory Tests Test 11/27/18 11:58 11/27/18 16:37 11/27/18 20:46 11/28/18 02:38 Glucose (Fingerstick) 235 mg/dL (70-99) 305 mg/dL (70-99) 200 mg/dL (70-99) White Blood Count 8.1 x10^3/uL (4.0-11.0) Red Blood Count 3.63 x10^6/uL (3.50-5.40) Hemoglobin 9.6 g/dL (12.0-15.5) Hematocrit 30.5 % (36.0-47.0) Mean Corpuscular Volume 84 fL (79-100) Mean Corpuscular Hemoglobin 27 pg (25-35) Mean Corpuscular Hemoglobin Concent 31 g/dL (31-37) Red Cell Distribution Width 15.2 % (11.5-14.5) Platelet Count 118 x10^3/uL (140-400) Neutrophils (%) (Auto) 82 % (31-73) Lymphocytes (%) (Auto) 10 % (24-48) Monocytes (%) (Auto) 8 % (0-9) Eosinophils (%) (Auto) 0 % (0-3) Basophils (%) (Auto) 0 % (0-3) Neutrophils # (Auto) 6.6 x10^3uL (1.8-7.7) Lymphocytes # (Auto) 0.8 x10^3/uL (1.0-4.8) Monocytes # (Auto) 0.6 x10^3/uL (0.0-1.1) Eosinophils # (Auto) 0.0 x10^3/uL (0.0-0.7) Basophils # (Auto) 0.0 x10^3/uL (0.0-0.2) Sodium Level 139 mmol/L (136-145) Potassium Level 5.3 mmol/L (3.5-5.1) Chloride Level 103 mmol/L (98-107) Carbon Dioxide Level 32 mmol/L (21-32) Anion Gap 4 (6-14) Blood Urea Nitrogen 52 mg/dL (7-20) Creatinine 1.2 mg/dL (0.6-1.0) Estimated GFR (Cockcroft-Gault) 43.2 BUN/Creatinine Ratio 43 (6-20) Glucose Level 303 mg/dL (70-99) Calcium Level 8.1 mg/dL (8.5-10.1) Total Bilirubin 0.3 mg/dL (0.2-1.0) Aspartate Amino Transf (AST/SGOT) 29 U/L (15-37) Alanine Aminotransferase (ALT/SGPT) 39 U/L (14-59) Alkaline Phosphatase 67 U/L (46-116) Total Protein 5.7 g/dL (6.4-8.2) Albumin 1.8 g/dL (3.4-5.0) Albumin/Globulin Ratio 0.5 (1.0-1.7) Test 11/28/18 06:54 Glucose (Fingerstick) 199 mg/dL (70-99) Micro Microbiology 11/22/18 Blood Culture - Final, Complete NO GROWTH AFTER 5 DAYS Objective Assessment Sepsis pulm source Febrile improved Influenza A positive 11/22 - tamiflu completed REY - improved Lactic acidosis - better Acute on chronic hypoxic resp failure, improving Elevated D dimer,VQ scan neg for PE COPD on home O2 [facility] resident DM h/o CHF Anemia Doxycycline allergy h/o MRSA nares Plan Plan of Care Cont Augmentin for 5 more days Steroids per Pulm f/u cults Maintain aspiration precautions Supportive care OPAL NORTON MD Nov 28, 2018 09:01
[2018-11-28 10:49] VITALS: BP 147/67
--- NOTE | 2018-11-28 12:18 | PDOC ---
PROGRESS NOTES Chief Complaint Chief Complaint [id number] respiratory failure Sepsis secondary to influenza A, pneumonia 11/27 Mild worsening of right lung base infiltrate/atelectasis and small effusion. Left lung atelectasis at the bases similar. Influenza A Pneumonia, HCAP History of COPD Elevated D dimer [id number] protein-calorie malnutrition Hypothyroidism (TSH > 6) ?Diastolic CHF (BNP 220) 11/27 hypercapnic on abg to use bipap day and night/ high risk without for worsening 11/28 HIGH RISK PT DUE TO NONCOMPLIANCE WITH BIPAP PER MY CHART REVIEW FOR SUDDEN 11/28 soa NOT A LOT BETTER, CONTINUE IV SOLUMEDROL TAPER History of Present Illness History of Present Illness Ms. Schwartz is a 78 yo female with multiple hospitalizations, history of COPD, presenting with worsening shortness of breath, found to have elevated D-Dimer, pneumonia and influenza A positive from her SNF. Pt was seen and examined this morning She was resting in bed without BiPAP this morning, still requiring oxygen therapy via NC She still has some residual mild respiratory distress Discussed with RN ID and Pulmonology consulted. Vitals Vitals Vital Signs Date Time Temp Pulse Resp B/P (MAP) Pulse Ox O2 Delivery O2 Flow Rate FiO2 11/28/18 11:42 94 Nasal Cannula 3.0 11/28/18 10:49 97.9 61 18 147/67 (93) 97.9 Physical Exam Physical Exam GENERAL: Sitting on side of bed after using bedside commode HEENT: Oral mucosa moist, no thrush NECK: Supple. LUNGS: Improved aeration, mild labored HEART: S1, S2. ABDOMEN: Soft, bowel sounds present, nontender, nondistended. No rebound, no guarding. EXTREMITIES: No edema, no cyanosis. NEUROLOGIC: , conversant SKIN: Warm, dry, no generalized rash. PIV General: Alert, Oriented X3, Cooperative, mild distress, Other (sleepy) Heart: Regular rate, Normal S1, No murmurs Lungs: Other (a few end exp wheeaing, dull at bases) Abdomen: Normal bowel sounds, Soft, No tenderness Extremities: No clubbing, No cyanosis Skin: No rashes, No significant lesion Labs LABS Laboratory Tests Test 11/27/18 16:37 11/27/18 20:46 11/28/18 02:38 11/28/18 06:54 Glucose (Fingerstick) 305 mg/dL (70-99) 200 mg/dL (70-99) 199 mg/dL (70-99) White Blood Count 8.1 x10^3/uL (4.0-11.0) Red Blood Count 3.63 x10^6/uL (3.50-5.40) Hemoglobin 9.6 g/dL (12.0-15.5) Hematocrit 30.5 % (36.0-47.0) Mean Corpuscular Volume 84 fL (79-100) Mean Corpuscular Hemoglobin 27 pg (25-35) Mean Corpuscular Hemoglobin Concent 31 g/dL (31-37) Red Cell Distribution Width 15.2 % (11.5-14.5) Platelet Count 118 x10^3/uL (140-400) Neutrophils (%) (Auto) 82 % (31-73) Lymphocytes (%) (Auto) 10 % (24-48) Monocytes (%) (Auto) 8 % (0-9) Eosinophils (%) (Auto) 0 % (0-3) Basophils (%) (Auto) 0 % (0-3) Neutrophils # (Auto) 6.6 x10^3uL (1.8-7.7) Lymphocytes # (Auto) 0.8 x10^3/uL (1.0-4.8) Monocytes # (Auto) 0.6 x10^3/uL (0.0-1.1) Eosinophils # (Auto) 0.0 x10^3/uL (0.0-0.7) Basophils # (Auto) 0.0 x10^3/uL (0.0-0.2) Sodium Level 139 mmol/L (136-145) Potassium Level 5.3 mmol/L (3.5-5.1) Chloride Level 103 mmol/L (98-107) Carbon Dioxide Level 32 mmol/L (21-32) Anion Gap 4 (6-14) Blood Urea Nitrogen 52 mg/dL (7-20) Creatinine 1.2 mg/dL (0.6-1.0) Estimated GFR (Cockcroft-Gault) 43.2 BUN/Creatinine Ratio 43 (6-20) Glucose Level 303 mg/dL (70-99) Calcium Level 8.1 mg/dL (8.5-10.1) Total Bilirubin 0.3 mg/dL (0.2-1.0) Aspartate Amino Transf (AST/SGOT) 29 U/L (15-37) Alanine Aminotransferase (ALT/SGPT) 39 U/L (14-59) Alkaline Phosphatase 67 U/L (46-116) Total Protein 5.7 g/dL (6.4-8.2) Albumin 1.8 g/dL (3.4-5.0) Albumin/Globulin Ratio 0.5 (1.0-1.7) Test 11/28/18 11:30 Glucose (Fingerstick) 183 mg/dL (70-99) Assessment and Plan Assessmemt and Plan Problems Medical Problems: (1) Elevated d-dimer Status: Acute Comment Review of Relevant I have reviewed the following items j[place] (where applicable) has been applied. Labs Laboratory Tests Test 11/26/18 15:30 11/26/18 16:39 11/26/18 20:47 11/27/18 03:30 O2 Saturation 96 % (92-99) Arterial Blood pH 7.37 (7.35-7.45) Arterial Blood pCO2 at Patient Temp 54 mmHg (35-46) Arterial Blood pO2 at Patient Temp 88 mmHg (65-108) Arterial Blood HCO3 30 mmol/L (21-28) Arterial Blood Base Excess 4 mmol/L (-3-3) FiO2 32 Glucose (Fingerstick) 274 mg/dL (70-99) 233 mg/dL (70-99) White Blood Count 8.9 x10^3/uL (4.0-11.0) Red Blood Count 3.82 x10^6/uL (3.50-5.40) Hemoglobin 10.0 g/dL (12.0-15.5) Hematocrit 32.1 % (36.0-47.0) Mean Corpuscular Volume 84 fL (79-100) Mean Corpuscular Hemoglobin 26 pg (25-35) Mean Corpuscular Hemoglobin Concent 31 g/dL (31-37) Red Cell Distribution Width 15.7 % (11.5-14.5) Platelet Count 124 x10^3/uL (140-400) Neutrophils (%) (Auto) 86 % (31-73) Lymphocytes (%) (Auto) 9 % (24-48) Monocytes (%) (Auto) 5 % (0-9) Eosinophils (%) (Auto) 0 % (0-3) Basophils (%) (Auto) 0 % (0-3) Neutrophils # (Auto) 7.7 x10^3uL (1.8-7.7) Lymphocytes # (Auto) 0.8 x10^3/uL (1.0-4.8) Monocytes # (Auto) 0.5 x10^3/uL (0.0-1.1) Eosinophils # (Auto) 0.0 x10^3/uL (0.0-0.7) Basophils # (Auto) 0.0 x10^3/uL (0.0-0.2) Sodium Level 141 mmol/L (136-145) Potassium Level 5.5 mmol/L (3.5-5.1) Chloride Level 104 mmol/L (98-107) Carbon Dioxide Level 33 mmol/L (21-32) Anion Gap 4 (6-14) Blood Urea Nitrogen 49 mg/dL (7-20) Creatinine 1.2 mg/dL (0.6-1.0) Estimated GFR (Cockcroft-Gault) 43.2 BUN/Creatinine Ratio 41 (6-20) Glucose Level 200 mg/dL (70-99) Calcium Level 8.3 mg/dL (8.5-10.1) Total Bilirubin 0.3 mg/dL (0.2-1.0) Aspartate Amino Transf (AST/SGOT) 41 U/L (15-37) Alanine Aminotransferase (ALT/SGPT) 45 U/L (14-59) Alkaline Phosphatase 65 U/L (46-116) Total Protein 6.1 g/dL (6.4-8.2) Albumin 1.9 g/dL (3.4-5.0) Albumin/Globulin Ratio 0.5 (1.0-1.7) Test 11/27/18 07:11 11/27/18 11:58 11/27/18 16:37 11/27/18 20:46 Glucose (Fingerstick) 168 mg/dL (70-99) 235 mg/dL (70-99) 305 mg/dL (70-99) 200 mg/dL (70-99) Test 11/28/18 02:38 11/28/18 06:54 11/28/18 11:30 White Blood Count 8.1 x10^3/uL (4.0-11.0) Red Blood Count 3.63 x10^6/uL (3.50-5.40) Hemoglobin 9.6 g/dL (12.0-15.5) Hematocrit 30.5 % (36.0-47.0) Mean Corpuscular Volume 84 fL (79-100) Mean Corpuscular Hemoglobin 27 pg (25-35) Mean Corpuscular Hemoglobin Concent 31 g/dL (31-37) Red Cell Distribution Width 15.2 % (11.5-14.5) Platelet Count 118 x10^3/uL (140-400) Neutrophils (%) (Auto) 82 % (31-73) Lymphocytes (%) (Auto) 10 % (24-48) Monocytes (%) (Auto) 8 % (0-9) Eosinophils (%) (Auto) 0 % (0-3) Basophils (%) (Auto) 0 % (0-3) Neutrophils # (Auto) 6.6 x10^3uL (1.8-7.7) Lymphocytes # (Auto) 0.8 x10^3/uL (1.0-4.8) Monocytes # (Auto) 0.6 x10^3/uL (0.0-1.1) Eosinophils # (Auto) 0.0 x10^3/uL (0.0-0.7) Basophils # (Auto) 0.0 x10^3/uL (0.0-0.2) Sodium Level 139 mmol/L (136-145) Potassium Level 5.3 mmol/L (3.5-5.1) Chloride Level 103 mmol/L (98-107) Carbon Dioxide Level 32 mmol/L (21-32) Anion Gap 4 (6-14) Blood Urea Nitrogen 52 mg/dL (7-20) Creatinine 1.2 mg/dL (0.6-1.0) Estimated GFR (Cockcroft-Gault) 43.2 BUN/Creatinine Ratio 43 (6-20) Glucose Level 303 mg/dL (70-99) Calcium Level 8.1 mg/dL (8.5-10.1) Total Bilirubin 0.3 mg/dL (0.2-1.0) Aspartate Amino Transf (AST/SGOT) 29 U/L (15-37) Alanine Aminotransferase (ALT/SGPT) 39 U/L (14-59) Alkaline Phosphatase 67 U/L (46-116) Total Protein 5.7 g/dL (6.4-8.2) Albumin 1.8 g/dL (3.4-5.0) Albumin/Globulin Ratio 0.5 (1.0-1.7) Glucose (Fingerstick) 199 mg/dL (70-99) 183 mg/dL (70-99) Laboratory Tests Test 11/27/18 16:37 11/27/18 20:46 11/28/18 02:38 11/28/18 06:54 Glucose (Fingerstick) 305 mg/dL (70-99) 200 mg/dL (70-99) 199 mg/dL (70-99) White Blood Count 8.1 x10^3/uL (4.0-11.0) Red Blood Count 3.63 x10^6/uL (3.50-5.40) Hemoglobin 9.6 g/dL (12.0-15.5) Hematocrit 30.5 % (36.0-47.0) Mean Corpuscular Volume 84 fL (79-100) Mean Corpuscular Hemoglobin 27 pg (25-35) Mean Corpuscular Hemoglobin Concent 31 g/dL (31-37) Red Cell Distribution Width 15.2 % (11.5-14.5) Platelet Count 118 x10^3/uL (140-400) Neutrophils (%) (Auto) 82 % (31-73) Lymphocytes (%) (Auto) 10 % (24-48) Monocytes (%) (Auto) 8 % (0-9) Eosinophils (%) (Auto) 0 % (0-3) Basophils (%) (Auto) 0 % (0-3) Neutrophils # (Auto) 6.6 x10^3uL (1.8-7.7) Lymphocytes # (Auto) 0.8 x10^3/uL (1.0-4.8) Monocytes # (Auto) 0.6 x10^3/uL (0.0-1.1) Eosinophils # (Auto) 0.0 x10^3/uL (0.0-0.7) Basophils # (Auto) 0.0 x10^3/uL (0.0-0.2) Sodium Level 139 mmol/L (136-145) Potassium Level 5.3 mmol/L (3.5-5.1) Chloride Level 103 mmol/L (98-107) Carbon Dioxide Level 32 mmol/L (21-32) Anion Gap 4 (6-14) Blood Urea Nitrogen 52 mg/dL (7-20) Creatinine 1.2 mg/dL (0.6-1.0) Estimated GFR (Cockcroft-Gault) 43.2 BUN/Creatinine Ratio 43 (6-20) Glucose Level 303 mg/dL (70-99) Calcium Level 8.1 mg/dL (8.5-10.1) Total Bilirubin 0.3 mg/dL (0.2-1.0) Aspartate Amino Transf (AST/SGOT) 29 U/L (15-37) Alanine Aminotransferase (ALT/SGPT) 39 U/L (14-59) Alkaline Phosphatase 67 U/L (46-116) Total Protein 5.7 g/dL (6.4-8.2) Albumin 1.8 g/dL (3.4-5.0) Albumin/Globulin Ratio 0.5 (1.0-1.7) Test 11/28/18 11:30 Glucose (Fingerstick) 183 mg/dL (70-99) Microbiology 11/22/18 Blood Culture - Final, Complete NO GROWTH AFTER 5 DAYS Medications Current Medications Albuterol/ Ipratropium (Duoneb) 3 ml STK-MED ONCE .ROUTE ; Start 11/21/18 at 18: 13; Stop 11/21/18 at 18:14; Status DC Aspirin (Zeenshare Aspirin) 325 mg 1X ONCE PO Last administered on 11/21/18at 19:55 ; Start 11/21/18 at 20:00; Stop 11/21/18 at 20:01; Status DC Ondansetron HCl (Zofran) 4 mg PRN Q8HRS PRN IV NAUSEA/VOMITING; Start 11/21/18 at 21:15; Stop 11/22/18 at 21:14; Status DC Albuterol/ Ipratropium (Duoneb) 3 ml RTQID NEB Last administered on 11/23/18at 07 :44; Start 11/22/18 at 08:00; Stop 11/23/18 at 07:59; Status DC Insulin Human Lispro (HumaLOG) 0-5 UNITS TIDWMEALS SQ Last administered on 11/27at 17:42; Start 11/22/18 at 08:00; Stop 11/27/18 at 18:56; Status DC Dextrose (Dextrose 50%-Water Syringe) 12.5 gm PRN Q15MIN PRN IV SEE COMMENTS; Start 11/21/18 at 21:15 Enoxaparin Sodium (Lovenox 100mg Syringe) 90 mg 1X ONCE SQ Last administered on 11/21/18at 22:50; Start 11/21/18 at 22:00; Stop 11/21/18 at 22:01; Status DC Albuterol/ Ipratropium (Duoneb) 3 ml 1X ONCE NEB Last administered on at 22:14; Start 11/21/18 at 22:00; Stop 11/21/18 at 22:01; Status DC Budesonide (Pulmicort) 0.5 mg RTBID NEB Last administered on 11/28/18at 07:29; Start 11/21/18 at 23:45 Labetalol HCl (Normodyne Iv Push) 10 mg PRN Q4HRS PRN IVP HYPERTENSION, SEE COMMENTS; Start 11/22/18 at 00:00; Stop 11/23/18 at 07:42; Status DC Lorazepam (Ativan) 0.5 mg PRN Q6HRS PRN IV ANXIETY / AGITATION Last administered on 11/22/18at 23:37; Start 11/22/18 at 00:00 Labetalol HCl (Normodyne Iv Push) 20 mg PRN Q6HRS PRN IVP HYPERTENSION, SEE COMMENTS; Start 11/22/18 at 00:00 Lorazepam (Ativan) 0.5 mg PRN Q6HRS PRN IV ANXIETY / AGITATION; Start 11/22/18 at 00:00; Stop 11/22/18 at 14:42; Status DC Acetaminophen (Tylenol) 650 mg PRN TID PRN PO PAIN Last administered on at 21:51; Start 11/22/18 at 01:45 Alprazolam (Xanax) 0.25 mg PRN Q6HRS PRN PO ANXIETY / AGITATION Last administered on 11/27/18at 21:50; Start 11/22/18 at 01:45 Aspirin (Ecotrin) 81 mg DAILYWBKFT PO Last administered on 11/28/18 08:23; Start 11/22/18 at 08:00 Carvedilol (Coreg) 6.25 mg BIDWMEALS PO Last administered on 11/28/18 08:23; Start 11/22/18 at 08:00 Ferrous Sulfate (Feosol) 325 mg DAILY PO Last administered on 11/28/18 08:24; Start 11/22/18 at 09:00 Guaifenesin (Mucinex) 600 mg BID PO Last administered on 11/28/18 08:24; Start 11/22/18 at 09:00 Albuterol Sulfate (Ventolin Neb Soln) 2.5 mg PRN Q4HRS PRN NEB CONGESTION Last administered on 11/23/18 03:43; Start 11/22/18 at 01:45 Magnesium Hydroxide (Milk Of Magnesia) 2,400 mg PRN Q12HR PRN PO CONSTIPATION; Start 11/22/18 at 01:45 Prednisone (Prednisone) 10 mg DAILY PO Last administered on 11/23/18 08:41; Start 11/22/18 at 09:00; Stop 11/24/18 at 08:29; Status DC Oxymetazoline HCl (Afrin) 1 spray PRN Q2HR PRN NS nose bleeds; Start 11/22/18 at 01:45 Potassium Chloride (Klor-Con) 40 meq DAILY08 PO Last administered on 11/25/18 09:16; Start 11/22/18 at 08:00; Stop 11/27/18 at 15:42; Status DC Atorvastatin Calcium (Lipitor) 5 mg QHS PO Last administered on 11/27/18 21:51 ; Start 11/22/18 at 21:00 Torsemide (Demadex) 40 mg BID92 PO Last administered on 11/22/18 16:11; Start 11/22/18 at 09:00; Stop 11/23/18 at 07:37; Status DC Morphine Sulfate (Morphine Sulfate) 2 mg PRN Q4HRS PRN IV PAIN Last administered on 11/26/18 04:06; Start 11/22/18 at 03:15 Piperacillin Sod/ Tazobactam Sod (Zosyn Per Pharmacy) 1 each PRN DAILY PRN MC SEE COMMENTS; Start 11/22/18 at 09:00; Stop 11/24/18 at 11:24; Status DC Piperacillin Sod/ Tazobactam Sod 3.375 gm/Sodium Chloride 50 ml @ 100 mls/hr Q6HRS IV Last administered on 11/24/18at 06:00; Start 11/22/18 at 10:00; Stop 11/24 at 11:24; Status DC Nystatin (Nystop) 1 jaison BID TP Last administered on 11/28/18at 08:24; Start 11/22 at 11:00 Sodium Chloride 1,000 ml @ 250 mls/hr 1X ONCE IV Last administered on at 11:37; Start 11/22/18 at 11:00; Stop 11/22/18 at 14:59; Status DC Oseltamivir Phosphate (Tamiflu) 30 mg BID PO Last administered on 11/24/18at 08: 49; Start 11/22/18 at 12:00; Stop 11/24/18 at 11:22; Status DC Piperacillin Sod/ Tazobactam Sod (Zosyn Per Pharmacy) 1 each PRN DAILY PRN MC SEE COMMENTS; Start 11/22/18 at 12:15; Stop 11/22/18 at 12:24; Status DC Lactobacillus Rhamnosus (Culturelle) 1 cap BID PO Last administered on at 08:24; Start 11/22/18 at 21:00 Albuterol/ Ipratropium (Duoneb) 3 ml RTQID NEB Last administered on 11/24/18at 07 :42; Start 11/23/18 at 12:00; Stop 11/24/18 at 08:29; Status DC Sodium Chloride 500 ml @ 500 mls/hr 1X ONCE IV Last administered on 11/23/18at 12:00; Start 11/23/18 at 12:00; Stop 11/23/18 at 12:59; Status DC Albuterol/ Ipratropium (Duoneb) 3 ml Q4HRS NEB Last administered on 11/28/18at 11:42; Start 11/24/18 at 12:00 Methylprednisolone Sodium Succinate (SOLU-Medrol 40MG VIAL) 40 mg Q8HRS IV Last administered on 11/25/18at 06:26; Start 11/24/18 at 08:30; Stop 11/25/18 at 08:52; Status DC Oseltamivir Phosphate (Tamiflu) 30 mg DAILY PO Last administered on 11/27/18at 08:18; Start 11/25/18 at 09:00; Stop 11/27/18 at 09:01; Status DC Piperacillin Sod/ Tazobactam Sod 2.25 gm/Sodium Chloride 50 ml @ 100 mls/hr Q8HRS IV Last administered on 11/24/18at 14:51; Start 11/24/18 at 14:00; Stop 11/24 at 14:54; Status DC Piperacillin Sod/ Tazobactam Sod 2.25 gm/Sodium Chloride 50 ml @ 100 mls/hr Q6HRS IV Last administered on 11/26/18at 05:33; Start 11/24/18 at 20:00; Stop 08/06 at 08:59; Status DC Methylprednisolone Sodium Succinate (SOLU-Medrol 40MG VIAL) 40 mg Q12HR IV Last administered on 11/27/18at 08:17; Start 11/25/18 at 09:00; Stop 11/27/18 at 10:34; Status DC Amoxicillin/ Clavulanate Potassium (Augmentin 500/ 125mg) 1 tab BID PO Last administered on 11/28/18at 08:23; Start 11/26/18 at 09:00 Methylprednisolone Sodium Succinate (SOLU-Medrol 40MG VIAL) 40 mg QPM IV Last administered on 11/27/18at 17:41; Start 11/27/18 at 18:00 Insulin Human Lispro (HumaLOG) 0-9 UNITS TIDWMEALS SQ Last administered on 11/28at 12:17; Start 11/28/18 at 08:00 Active Scripts Active Prednisone (Prednisone) 10 Mg Tablet 10 Mg PO UD Take 5 tablets by mouth daily for 2 days, then take 4 tablets by mouth daily for 2 days, then take 3 tablets by mouth daily for 2 days, then take 2 tablets by mouth daily for 2 days, then take 1 tablets by mouth daily for 2 days, then stop. Milk Of Magnesia (Magnesium Hydroxide) 400 Mg/5 Ml Oral.susp 2,400 Mg PO PRN Q12HR PRN 10 Days Reported Potassium Chloride 20 Meq Tablet.er 40 Meq PO DAILY Mucinex (Guaifenesin) 600 Mg Tablet.er 1 Tab PO BID Xanax (Alprazolam) 0.25 Mg Tablet 0.25 Mg PO PRN Q6HRS PRN Afrin (Oxymetazoline Hcl) 30 Ml [place] 30 Ml NS PRN Q2HR PRN Tylenol (Acetaminophen) 325 Mg Tablet 650 Mg PO TID PRN PRN Aspir 81 (Aspirin) 81 Mg Tablet.dr 1 Tab PO DAILY Iron Supplement (Ferrous Sulfate) 325 Mg Tablet 1 Tab PO DAILY Advair 250-50 Diskus (Fluticasone/Salmeterol) 1 Each Disk.w.dev 1 Puff IH BID Duoneb 0.5-3(2.5) Mg/3 Ml (Albuterol/Ipratropium) 3 Ml Ampul.neb 3 Ml IH Q4HRS PRN Pravastatin Sodium 10 Mg Tablet 1 Tab PO QHS Carvedilol (Carvedilol) 6.25 Mg Tablet 1 Tab PO BID Torsemide 20 Mg Tablet 40 Mg PO BID Vitals/I & O Vital Sign - Last 24 Hours 11/27/18 11/27/18 11/27/18 11/27/18 15:00 15:24 17:41 18:34 Temp 97.8 97.8 Pulse 73 70 Resp 22 B/P (MAP) 148/70 (96) 157/73 Pulse Ox 94 96 96 O2 Delivery Nasal Cannula Nasal Cannula Nasal Cannula O2 Flow Rate 3.0 3.0 3.0 11/27/18 11/27/18 11/27/18 11/28/18 19:45 20:00 22:45 03:00 Temp 98.1 98.0 97.7 98.1 98.0 97.7 Pulse 69 64 59 Resp 20 20 18 B/P (MAP) 148/89 (108) 141/61 (87) 133/58 (83) Pulse Ox 96 94 97 O2 Delivery Nasal Cannula Nasal Cannula Nasal Cannula Nasal Cannula O2 Flow Rate 3.0 3.0 3.0 3.0 11/28/18 11/28/18 11/28/18 11/28/18 07:00 07:29 08:00 08:23 Temp 97.3 97.3 Pulse 63 63 Resp 18 B/P (MAP) 169/70 (103) 169/70 Pulse Ox 93 96 O2 Delivery Nasal Cannula Nasal Cannula Nasal Cannula O2 Flow Rate 3.0 3.0 3.0 11/28/18 11/28/18 10:49 11:42 Temp 97.9 97.9 Pulse 61 Resp 18 B/P (MAP) 147/67 (93) Pulse Ox 96 94 O2 Delivery Nasal Cannula Nasal Cannula O2 Flow Rate 3.0 3.0 Intake and Output 11/27/18 11/27/18 11/28/18 15:00 23:00 07:00 Intake Total 480 ml 480 ml 300 ml Output Total 75 ml 300 ml 225 ml Balance 405 ml 180 ml 75 ml Nutrition Consultation Dietary Evaluation: Recommendations by RD: Protein supplementation Comments: REC continue cardiac/ADA diet, add ground meats to aid with chewing while pt doesn't have her dentures REC continue Ensure changed to bid, will monitor blood sugar offer glucerna if needed and or nepro . Expected Outcomes/Goals: PO intake to meet >75% est needs- goal ongoing Malnutrition Findings: Food and Nutrition Intake (Sev: <50% est energy req 5days Weight Status: Obese FAITH BEAN MD Nov 28, 2018 12:18
--- NOTE | 2018-11-28 12:20 | PDOC ---
PULMONARY PROGRESS NOTES Subjective sob, cough better, no pain, didnt use bipap Vitals Vital Signs Date Time Temp Pulse Resp B/P (MAP) Pulse Ox O2 Delivery O2 Flow Rate FiO2 11/28/18 11:42 94 Nasal Cannula 3.0 11/28/18 10:49 97.9 61 18 147/67 (93) 97.9 ROS: No Nausea, No Chest Pain, No Abdominal Pain, No Increase Cough General: Alert, No acute distress HEENT: Other (nc at perrl nose throat clear) Lungs: Other (a few end exp wheeaing, dull at bases) Cardiovascular: S1, S2 Abdomen: Soft, Non-tender Neuro Exam: Alert Extremities: Other (trace edema) Skin: Warm Labs Laboratory Tests Test 11/26/18 15:30 11/26/18 16:39 11/26/18 20:47 11/27/18 03:30 O2 Saturation 96 % (92-99) Arterial Blood pH 7.37 (7.35-7.45) Arterial Blood pCO2 at Patient Temp 54 mmHg (35-46) Arterial Blood pO2 at Patient Temp 88 mmHg (65-108) Arterial Blood HCO3 30 mmol/L (21-28) Arterial Blood Base Excess 4 mmol/L (-3-3) FiO2 32 Glucose (Fingerstick) 274 mg/dL (70-99) 233 mg/dL (70-99) White Blood Count 8.9 x10^3/uL (4.0-11.0) Red Blood Count 3.82 x10^6/uL (3.50-5.40) Hemoglobin 10.0 g/dL (12.0-15.5) Hematocrit 32.1 % (36.0-47.0) Mean Corpuscular Volume 84 fL (79-100) Mean Corpuscular Hemoglobin 26 pg (25-35) Mean Corpuscular Hemoglobin Concent 31 g/dL (31-37) Red Cell Distribution Width 15.7 % (11.5-14.5) Platelet Count 124 x10^3/uL (140-400) Neutrophils (%) (Auto) 86 % (31-73) Lymphocytes (%) (Auto) 9 % (24-48) Monocytes (%) (Auto) 5 % (0-9) Eosinophils (%) (Auto) 0 % (0-3) Basophils (%) (Auto) 0 % (0-3) Neutrophils # (Auto) 7.7 x10^3uL (1.8-7.7) Lymphocytes # (Auto) 0.8 x10^3/uL (1.0-4.8) Monocytes # (Auto) 0.5 x10^3/uL (0.0-1.1) Eosinophils # (Auto) 0.0 x10^3/uL (0.0-0.7) Basophils # (Auto) 0.0 x10^3/uL (0.0-0.2) Sodium Level 141 mmol/L (136-145) Potassium Level 5.5 mmol/L (3.5-5.1) Chloride Level 104 mmol/L (98-107) Carbon Dioxide Level 33 mmol/L (21-32) Anion Gap 4 (6-14) Blood Urea Nitrogen 49 mg/dL (7-20) Creatinine 1.2 mg/dL (0.6-1.0) Estimated GFR (Cockcroft-Gault) 43.2 BUN/Creatinine Ratio 41 (6-20) Glucose Level 200 mg/dL (70-99) Calcium Level 8.3 mg/dL (8.5-10.1) Total Bilirubin 0.3 mg/dL (0.2-1.0) Aspartate Amino Transf (AST/SGOT) 41 U/L (15-37) Alanine Aminotransferase (ALT/SGPT) 45 U/L (14-59) Alkaline Phosphatase 65 U/L (46-116) Total Protein 6.1 g/dL (6.4-8.2) Albumin 1.9 g/dL (3.4-5.0) Albumin/Globulin Ratio 0.5 (1.0-1.7) Test 11/27/18 07:11 11/27/18 11:58 11/27/18 16:37 11/27/18 20:46 Glucose (Fingerstick) 168 mg/dL (70-99) 235 mg/dL (70-99) 305 mg/dL (70-99) 200 mg/dL (70-99) Test 11/28/18 02:38 11/28/18 06:54 11/28/18 11:30 White Blood Count 8.1 x10^3/uL (4.0-11.0) Red Blood Count 3.63 x10^6/uL (3.50-5.40) Hemoglobin 9.6 g/dL (12.0-15.5) Hematocrit 30.5 % (36.0-47.0) Mean Corpuscular Volume 84 fL (79-100) Mean Corpuscular Hemoglobin 27 pg (25-35) Mean Corpuscular Hemoglobin Concent 31 g/dL (31-37) Red Cell Distribution Width 15.2 % (11.5-14.5) Platelet Count 118 x10^3/uL (140-400) Neutrophils (%) (Auto) 82 % (31-73) Lymphocytes (%) (Auto) 10 % (24-48) Monocytes (%) (Auto) 8 % (0-9) Eosinophils (%) (Auto) 0 % (0-3) Basophils (%) (Auto) 0 % (0-3) Neutrophils # (Auto) 6.6 x10^3uL (1.8-7.7) Lymphocytes # (Auto) 0.8 x10^3/uL (1.0-4.8) Monocytes # (Auto) 0.6 x10^3/uL (0.0-1.1) Eosinophils # (Auto) 0.0 x10^3/uL (0.0-0.7) Basophils # (Auto) 0.0 x10^3/uL (0.0-0.2) Sodium Level 139 mmol/L (136-145) Potassium Level 5.3 mmol/L (3.5-5.1) Chloride Level 103 mmol/L (98-107) Carbon Dioxide Level 32 mmol/L (21-32) Anion Gap 4 (6-14) Blood Urea Nitrogen 52 mg/dL (7-20) Creatinine 1.2 mg/dL (0.6-1.0) Estimated GFR (Cockcroft-Gault) 43.2 BUN/Creatinine Ratio 43 (6-20) Glucose Level 303 mg/dL (70-99) Calcium Level 8.1 mg/dL (8.5-10.1) Total Bilirubin 0.3 mg/dL (0.2-1.0) Aspartate Amino Transf (AST/SGOT) 29 U/L (15-37) Alanine Aminotransferase (ALT/SGPT) 39 U/L (14-59) Alkaline Phosphatase 67 U/L (46-116) Total Protein 5.7 g/dL (6.4-8.2) Albumin 1.8 g/dL (3.4-5.0) Albumin/Globulin Ratio 0.5 (1.0-1.7) Glucose (Fingerstick) 199 mg/dL (70-99) 183 mg/dL (70-99) Laboratory Tests Test 11/27/18 16:37 11/27/18 20:46 11/28/18 02:38 11/28/18 06:54 Glucose (Fingerstick) 305 mg/dL (70-99) 200 mg/dL (70-99) 199 mg/dL (70-99) White Blood Count 8.1 x10^3/uL (4.0-11.0) Red Blood Count 3.63 x10^6/uL (3.50-5.40) Hemoglobin 9.6 g/dL (12.0-15.5) Hematocrit 30.5 % (36.0-47.0) Mean Corpuscular Volume 84 fL (79-100) Mean Corpuscular Hemoglobin 27 pg (25-35) Mean Corpuscular Hemoglobin Concent 31 g/dL (31-37) Red Cell Distribution Width 15.2 % (11.5-14.5) Platelet Count 118 x10^3/uL (140-400) Neutrophils (%) (Auto) 82 % (31-73) Lymphocytes (%) (Auto) 10 % (24-48) Monocytes (%) (Auto) 8 % (0-9) Eosinophils (%) (Auto) 0 % (0-3) Basophils (%) (Auto) 0 % (0-3) Neutrophils # (Auto) 6.6 x10^3uL (1.8-7.7) Lymphocytes # (Auto) 0.8 x10^3/uL (1.0-4.8) Monocytes # (Auto) 0.6 x10^3/uL (0.0-1.1) Eosinophils # (Auto) 0.0 x10^3/uL (0.0-0.7) Basophils # (Auto) 0.0 x10^3/uL (0.0-0.2) Sodium Level 139 mmol/L (136-145) Potassium Level 5.3 mmol/L (3.5-5.1) Chloride Level 103 mmol/L (98-107) Carbon Dioxide Level 32 mmol/L (21-32) Anion Gap 4 (6-14) Blood Urea Nitrogen 52 mg/dL (7-20) Creatinine 1.2 mg/dL (0.6-1.0) Estimated GFR (Cockcroft-Gault) 43.2 BUN/Creatinine Ratio 43 (6-20) Glucose Level 303 mg/dL (70-99) Calcium Level 8.1 mg/dL (8.5-10.1) Total Bilirubin 0.3 mg/dL (0.2-1.0) Aspartate Amino Transf (AST/SGOT) 29 U/L (15-37) Alanine Aminotransferase (ALT/SGPT) 39 U/L (14-59) Alkaline Phosphatase 67 U/L (46-116) Total Protein 5.7 g/dL (6.4-8.2) Albumin 1.8 g/dL (3.4-5.0) Albumin/Globulin Ratio 0.5 (1.0-1.7) Test 11/28/18 11:30 Glucose (Fingerstick) 183 mg/dL (70-99) Medications Active Scripts Medications Dose Route/Sig Max Daily Dose Days Date Category Dose Instructions Potassium Chloride 20 Meq Tablet.er 40 Meq PO DAILY 11/22/18 Reported Mucinex (Guaifenesin) 600 Mg Tablet.er 1 Tab PO BID 11/22/18 Reported Xanax (Alprazolam) 0.25 Mg Tablet 0.25 Mg PO PRN Q6HRS PRN 11/22/18 Reported Afrin (Oxymetazoline Hcl) 30 Ml [place] 30 Ml NS PRN Q2HR PRN 11/22/18 Reported Prednisone (Prednisone) 10 Mg Tablet 10 Mg PO UD 08/29/18 Rx Take 5 tablets by mouth daily for 2 days, then take 4 tablets by mouth daily for 2 days, then take 3 tablets by mouth daily for 2 days, then take 2 tablets by mouth daily for 2 days, then take 1 tablets by mouth daily for 2 days, then stop. Milk Of Magnesia (Magnesium Hydroxide) 400 Mg/5 Ml Oral.susp 2,400 Mg PO PRN Q12HR PRN 10 08/20/18 Rx Tylenol (Acetaminophen) 325 Mg Tablet 650 Mg PO TID PRN PRN 04/11/16 Reported Aspir 81 (Aspirin) 81 Mg Tablet.dr 1 Tab PO DAILY 04/11/16 Reported Iron Supplement (Ferrous Sulfate) 325 Mg Tablet 1 Tab PO DAILY 11/10/15 Reported Advair 250-50 Diskus (Fluticasone/Salmeterol) 1 Each Disk.w.dev 1 Puff IH BID 05/06/15 Reported Duoneb 0.5-3(2.5) Mg/3 Ml (Albuterol/Ipratropium) 3 Ml Ampul.neb 3 Ml IH Q4HRS PRN 05/06/15 Reported Pravastatin Sodium 10 Mg Tablet 1 Tab PO QHS 09/16/14 Reported Carvedilol (Carvedilol) 6.25 Mg Tablet 1 Tab PO BID 09/16/14 Reported Torsemide 20 Mg Tablet 40 Mg PO BID 11/22/18 Reported Comments cxr reviewed Mild worsening of right lung base infiltrate/atelectasis and small effusion. Left lung atelectasis at the bases similar. Impression . ASSESSMENT: 1. Djcis-[id number]-nrguzsl hypercapnic respiratory failure. 2. Positive influenza A. 3. Acute exacerbation of chronic obstructive pulmonary disease. 4. Abnormal x-ray compatible with some atelectasis. 5. History of methicillin-susceptible Staphylococcus aureus bronchitis. 6. Abnormal D-dimer, nonspecific.no PE 7. History of congestive heart failure. 8. sepsis Plan . 1. BiPAP p.r.n. during day cont at night 2. cont abx per id 3. Tamiflu. 4. BD 5. solumedrol taper 6. elevate hob 7. cxr, reviewed 8. repeat ABG compensated rehab discussed w pt and SHERON Ellison MD Nov 28, 2018 12:20
[2018-11-28 14:41] VITALS: BP 145/65
[2018-11-28] MEDS: methylPREDNISolone SOD SUCC PF 40 MG/ML VIAL. IV SCH (17:03)
[2018-11-28 19:00] VITALS: BP 120/58
[2018-11-28] MEDS: ATORVASTATIN CALCIUM 10 MG TABLET. PO SCH (22:40)
[2018-11-28] MEDS: ALPRAZolam 0.25 MG TABLET PO PRN (22:41)
[2018-11-28] MEDS: ACETAMINOPHEN 325 MG TABLET. PO PRN (22:42)
[2018-11-28 23:30] VITALS: BP 149/66
[2018-11-29] MEDS: IPRATRPIUM/ALBUTEROL 0.5/2.5MG 3 ML NEBU. NEB SCH ×3 (02:25→11:44)
[2018-11-29 03:40] VITALS: BP 148/69
[2018-11-29 04:51] LABS: BASO % 0 % (0-3); EOS % 0 % (0-3); HEMATOCRIT 31.3 % (36.0-47.0); HEMOGLOBIN 9.9 g/dL (12.0-15.5); LYMPH # 0.8 x10^3/uL (1.0-4.8); LYMPH % 11 % (24-48); MEAN CORPUSCULAR HEMOGLOBIN 26 pg (25-35); MEAN CORPUSCULAR HGB CONC 32 g/dL (31-37); MEAN CORPUSCULAR VOLUME 84 fL (79-100); MONO # 0.4 x10^3/uL (0.0-1.1); MONO % 6 % (0-9); NEUT # 6.1 x10^3uL (1.8-7.7); NEUT % 84 % (31-73); PLATELET COUNT 132 x10^3/uL (140-400); RED BLOOD COUNT 3.74 x10^6/uL (3.50-5.40); RED CELL DISTRIBUTION WIDTH 14.7 % (11.5-14.5); WHITE BLOOD COUNT 7.3 x10^3/uL (4.0-11.0)
[2018-11-29 05:16] LABS: ALBUMIN 1.9 g/dL (3.4-5.0); ALBUMIN/GLOBULIN RATIO 0.5 (1.0-1.7); CALCIUM 8.3 mg/dL (8.5-10.1); CREATININE 1.1 mg/dL (0.6-1.0); GFR 47.8; TOTAL BILIRUBIN 0.3 mg/dL (0.2-1.0); TOTAL PROTEIN 5.9 g/dL (6.4-8.2)
[2018-11-29 05:18] LABS: POTASSIUM 5.2 mmol/L (3.5-5.1)
[2018-11-29 07:00] VITALS: BP 192/83
[2018-11-29] MEDS: BUDESONIDE 0.5 MG/2 ML NEBU. NEB SCH (07:42)
[2018-11-29] MEDS: INSULIN LISPRO 300 UNITS/3 ML INSULN.PEN. SQ SCH ×2 (08:00→12:00)
--- NOTE | 2018-11-29 08:00 | NUR ---
Wound Care wound care follow up for rash to pannus and under breasts. Pt's rash is now resolved. cleansed area and reapplied nystatin powder. No other wounds found on full skin inspection. WC will sign off at this time
[2018-11-29] MEDS: CARVEDILOL 6.25 MG TABLET. PO SCH (08:09)
[2018-11-29] MEDS: AMOXICILLIN/K CLAV 500/125MG TABLET. PO SCH (08:10)
[2018-11-29] MEDS: LACTOBACILLUS RHAMNOSUS GG 1 CAPSULE. PO SCH (08:10)
[2018-11-29] MEDS: FERROUS SULFATE 325 MG TABLET. PO SCH (08:10)
[2018-11-29] MEDS: ASPIRIN ENTERIC COATED 81 MG TABLET.DR. PO SCH (08:10)
[2018-11-29] MEDS: NYSTATIN TOPICAL POWDER 15GM BOTTLE. TP SCH (08:11)
--- NOTE | 2018-11-29 09:32 | PDOC ---
Infectious Disease Note Subjective Subjective feeling better, no energy ROS ROS no n/v/d/ Vital Sign Vital Signs Vital Signs Date Time Temp Pulse Resp B/P (MAP) Pulse Ox O2 Delivery O2 Flow Rate FiO2 11/29/18 08:09 70 11/29/18 08:00 Nasal Cannula 3.0 11/29/18 07:31 93 11/29/18 07:00 98.0 17 192/83 (119) 98.0 Physical Exam PHYSICAL EXAM GENERAL: Sitting on side of bed after using bedside commode HEENT: Oral mucosa moist, no thrush NECK: Supple. LUNGS: Improved aeration, mild labored HEART: S1, S2. ABDOMEN: Soft, bowel sounds present, nontender, nondistended. No rebound, no guarding. EXTREMITIES: No edema, no cyanosis. NEUROLOGIC: , conversant SKIN: Warm, dry, no generalized rash. PIV Labs Lab Laboratory Tests Test 11/28/18 11:30 11/28/18 16:38 11/28/18 20:46 11/29/18 03:50 Glucose (Fingerstick) 183 mg/dL (70-99) 168 mg/dL (70-99) 323 mg/dL (70-99) White Blood Count 7.3 x10^3/uL (4.0-11.0) Red Blood Count 3.74 x10^6/uL (3.50-5.40) Hemoglobin 9.9 g/dL (12.0-15.5) Hematocrit 31.3 % (36.0-47.0) Mean Corpuscular Volume 84 fL (79-100) Mean Corpuscular Hemoglobin 26 pg (25-35) Mean Corpuscular Hemoglobin Concent 32 g/dL (31-37) Red Cell Distribution Width 14.7 % (11.5-14.5) Platelet Count 132 x10^3/uL (140-400) Neutrophils (%) (Auto) 84 % (31-73) Lymphocytes (%) (Auto) 11 % (24-48) Monocytes (%) (Auto) 6 % (0-9) Eosinophils (%) (Auto) 0 % (0-3) Basophils (%) (Auto) 0 % (0-3) Neutrophils # (Auto) 6.1 x10^3uL (1.8-7.7) Lymphocytes # (Auto) 0.8 x10^3/uL (1.0-4.8) Monocytes # (Auto) 0.4 x10^3/uL (0.0-1.1) Eosinophils # (Auto) 0.0 x10^3/uL (0.0-0.7) Basophils # (Auto) 0.0 x10^3/uL (0.0-0.2) Sodium Level 143 mmol/L (136-145) Potassium Level 5.2 mmol/L (3.5-5.1) Chloride Level 104 mmol/L (98-107) Carbon Dioxide Level 33 mmol/L (21-32) Anion Gap 6 (6-14) Blood Urea Nitrogen 48 mg/dL (7-20) Creatinine 1.1 mg/dL (0.6-1.0) Estimated GFR (Cockcroft-Gault) 47.8 BUN/Creatinine Ratio 44 (6-20) Glucose Level 220 mg/dL (70-99) Calcium Level 8.3 mg/dL (8.5-10.1) Total Bilirubin 0.3 mg/dL (0.2-1.0) Aspartate Amino Transf (AST/SGOT) 23 U/L (15-37) Alanine Aminotransferase (ALT/SGPT) 39 U/L (14-59) Alkaline Phosphatase 69 U/L (46-116) Total Protein 5.9 g/dL (6.4-8.2) Albumin 1.9 g/dL (3.4-5.0) Albumin/Globulin Ratio 0.5 (1.0-1.7) Test 11/29/18 07:38 Glucose (Fingerstick) 152 mg/dL (70-99) Micro Microbiology 11/22/18 Blood Culture - Final, Complete NO GROWTH AFTER 5 DAYS Objective Assessment Sepsis pulm source Febrile improved Influenza A positive 11/22 - tamiflu completed REY - improved Lactic acidosis - better Acute on chronic hypoxic resp failure, improving Elevated D dimer,VQ scan neg for PE COPD on home O2 [facility] resident DM h/o CHF Anemia Doxycycline allergy h/o MRSA nares Plan Plan of Care Cont Augmentin for 5 more days Steroids per Pulm f/u cults Maintain aspiration precautions Supportive care OPAL NORTON MD Nov 29, 2018 09:32
--- NOTE | 2018-11-29 10:42 | PDOC ---
PULMONARY PROGRESS NOTES Subjective no increase soa, weak Vitals Vital Signs Date Time Temp Pulse Resp B/P (MAP) Pulse Ox O2 Delivery O2 Flow Rate FiO2 11/29/18 08:09 70 11/29/18 08:00 Nasal Cannula 3.0 11/29/18 07:31 93 11/29/18 07:00 98.0 17 192/83 (119) 98.0 ROS: No Nausea, No Chest Pain, No Abdominal Pain, No Increase Cough General: Alert, No acute distress HEENT: Other (nc at perrl nose throat clear) Lungs: Other (few rhonchi) Cardiovascular: S1, S2 Abdomen: Soft, Non-tender Neuro Exam: Alert Extremities: Other (trace edema) Skin: Warm Labs Laboratory Tests Test 11/27/18 11:58 11/27/18 16:37 11/27/18 20:46 11/28/18 02:38 Glucose (Fingerstick) 235 mg/dL (70-99) 305 mg/dL (70-99) 200 mg/dL (70-99) White Blood Count 8.1 x10^3/uL (4.0-11.0) Red Blood Count 3.63 x10^6/uL (3.50-5.40) Hemoglobin 9.6 g/dL (12.0-15.5) Hematocrit 30.5 % (36.0-47.0) Mean Corpuscular Volume 84 fL (79-100) Mean Corpuscular Hemoglobin 27 pg (25-35) Mean Corpuscular Hemoglobin Concent 31 g/dL (31-37) Red Cell Distribution Width 15.2 % (11.5-14.5) Platelet Count 118 x10^3/uL (140-400) Neutrophils (%) (Auto) 82 % (31-73) Lymphocytes (%) (Auto) 10 % (24-48) Monocytes (%) (Auto) 8 % (0-9) Eosinophils (%) (Auto) 0 % (0-3) Basophils (%) (Auto) 0 % (0-3) Neutrophils # (Auto) 6.6 x10^3uL (1.8-7.7) Lymphocytes # (Auto) 0.8 x10^3/uL (1.0-4.8) Monocytes # (Auto) 0.6 x10^3/uL (0.0-1.1) Eosinophils # (Auto) 0.0 x10^3/uL (0.0-0.7) Basophils # (Auto) 0.0 x10^3/uL (0.0-0.2) Sodium Level 139 mmol/L (136-145) Potassium Level 5.3 mmol/L (3.5-5.1) Chloride Level 103 mmol/L (98-107) Carbon Dioxide Level 32 mmol/L (21-32) Anion Gap 4 (6-14) Blood Urea Nitrogen 52 mg/dL (7-20) Creatinine 1.2 mg/dL (0.6-1.0) Estimated GFR (Cockcroft-Gault) 43.2 BUN/Creatinine Ratio 43 (6-20) Glucose Level 303 mg/dL (70-99) Calcium Level 8.1 mg/dL (8.5-10.1) Total Bilirubin 0.3 mg/dL (0.2-1.0) Aspartate Amino Transf (AST/SGOT) 29 U/L (15-37) Alanine Aminotransferase (ALT/SGPT) 39 U/L (14-59) Alkaline Phosphatase 67 U/L (46-116) Total Protein 5.7 g/dL (6.4-8.2) Albumin 1.8 g/dL (3.4-5.0) Albumin/Globulin Ratio 0.5 (1.0-1.7) Test 11/28/18 06:54 11/28/18 11:30 11/28/18 16:38 11/28/18 20:46 Glucose (Fingerstick) 199 mg/dL (70-99) 183 mg/dL (70-99) 168 mg/dL (70-99) 323 mg/dL (70-99) Test 11/29/18 03:50 11/29/18 07:38 White Blood Count 7.3 x10^3/uL (4.0-11.0) Red Blood Count 3.74 x10^6/uL (3.50-5.40) Hemoglobin 9.9 g/dL (12.0-15.5) Hematocrit 31.3 % (36.0-47.0) Mean Corpuscular Volume 84 fL (79-100) Mean Corpuscular Hemoglobin 26 pg (25-35) Mean Corpuscular Hemoglobin Concent 32 g/dL (31-37) Red Cell Distribution Width 14.7 % (11.5-14.5) Platelet Count 132 x10^3/uL (140-400) Neutrophils (%) (Auto) 84 % (31-73) Lymphocytes (%) (Auto) 11 % (24-48) Monocytes (%) (Auto) 6 % (0-9) Eosinophils (%) (Auto) 0 % (0-3) Basophils (%) (Auto) 0 % (0-3) Neutrophils # (Auto) 6.1 x10^3uL (1.8-7.7) Lymphocytes # (Auto) 0.8 x10^3/uL (1.0-4.8) Monocytes # (Auto) 0.4 x10^3/uL (0.0-1.1) Eosinophils # (Auto) 0.0 x10^3/uL (0.0-0.7) Basophils # (Auto) 0.0 x10^3/uL (0.0-0.2) Sodium Level 143 mmol/L (136-145) Potassium Level 5.2 mmol/L (3.5-5.1) Chloride Level 104 mmol/L (98-107) Carbon Dioxide Level 33 mmol/L (21-32) Anion Gap 6 (6-14) Blood Urea Nitrogen 48 mg/dL (7-20) Creatinine 1.1 mg/dL (0.6-1.0) Estimated GFR (Cockcroft-Gault) 47.8 BUN/Creatinine Ratio 44 (6-20) Glucose Level 220 mg/dL (70-99) Calcium Level 8.3 mg/dL (8.5-10.1) Total Bilirubin 0.3 mg/dL (0.2-1.0) Aspartate Amino Transf (AST/SGOT) 23 U/L (15-37) Alanine Aminotransferase (ALT/SGPT) 39 U/L (14-59) Alkaline Phosphatase 69 U/L (46-116) Total Protein 5.9 g/dL (6.4-8.2) Albumin 1.9 g/dL (3.4-5.0) Albumin/Globulin Ratio 0.5 (1.0-1.7) Glucose (Fingerstick) 152 mg/dL (70-99) Laboratory Tests Test 11/28/18 11:30 11/28/18 16:38 11/28/18 20:46 11/29/18 03:50 Glucose (Fingerstick) 183 mg/dL (70-99) 168 mg/dL (70-99) 323 mg/dL (70-99) White Blood Count 7.3 x10^3/uL (4.0-11.0) Red Blood Count 3.74 x10^6/uL (3.50-5.40) Hemoglobin 9.9 g/dL (12.0-15.5) Hematocrit 31.3 % (36.0-47.0) Mean Corpuscular Volume 84 fL (79-100) Mean Corpuscular Hemoglobin 26 pg (25-35) Mean Corpuscular Hemoglobin Concent 32 g/dL (31-37) Red Cell Distribution Width 14.7 % (11.5-14.5) Platelet Count 132 x10^3/uL (140-400) Neutrophils (%) (Auto) 84 % (31-73) Lymphocytes (%) (Auto) 11 % (24-48) Monocytes (%) (Auto) 6 % (0-9) Eosinophils (%) (Auto) 0 % (0-3) Basophils (%) (Auto) 0 % (0-3) Neutrophils # (Auto) 6.1 x10^3uL (1.8-7.7) Lymphocytes # (Auto) 0.8 x10^3/uL (1.0-4.8) Monocytes # (Auto) 0.4 x10^3/uL (0.0-1.1) Eosinophils # (Auto) 0.0 x10^3/uL (0.0-0.7) Basophils # (Auto) 0.0 x10^3/uL (0.0-0.2) Sodium Level 143 mmol/L (136-145) Potassium Level 5.2 mmol/L (3.5-5.1) Chloride Level 104 mmol/L (98-107) Carbon Dioxide Level 33 mmol/L (21-32) Anion Gap 6 (6-14) Blood Urea Nitrogen 48 mg/dL (7-20) Creatinine 1.1 mg/dL (0.6-1.0) Estimated GFR (Cockcroft-Gault) 47.8 BUN/Creatinine Ratio 44 (6-20) Glucose Level 220 mg/dL (70-99) Calcium Level 8.3 mg/dL (8.5-10.1) Total Bilirubin 0.3 mg/dL (0.2-1.0) Aspartate Amino Transf (AST/SGOT) 23 U/L (15-37) Alanine Aminotransferase (ALT/SGPT) 39 U/L (14-59) Alkaline Phosphatase 69 U/L (46-116) Total Protein 5.9 g/dL (6.4-8.2) Albumin 1.9 g/dL (3.4-5.0) Albumin/Globulin Ratio 0.5 (1.0-1.7) Test 11/29/18 07:38 Glucose (Fingerstick) 152 mg/dL (70-99) Medications Active Scripts Medications Dose Route/Sig Max Daily Dose Days Date Category Dose Instructions Potassium Chloride 20 Meq Tablet.er 40 Meq PO DAILY 11/22/18 Reported Mucinex (Guaifenesin) 600 Mg Tablet.er 1 Tab PO BID 11/22/18 Reported Xanax (Alprazolam) 0.25 Mg Tablet 0.25 Mg PO PRN Q6HRS PRN 11/22/18 Reported Afrin (Oxymetazoline Hcl) 30 Ml [place] 30 Ml NS PRN Q2HR PRN 11/22/18 Reported Prednisone (Prednisone) 10 Mg Tablet 10 Mg PO UD 08/29/18 Rx Take 5 tablets by mouth daily for 2 days, then take 4 tablets by mouth daily for 2 days, then take 3 tablets by mouth daily for 2 days, then take 2 tablets by mouth daily for 2 days, then take 1 tablets by mouth daily for 2 days, then stop. Milk Of Magnesia (Magnesium Hydroxide) 400 Mg/5 Ml Oral.susp 2,400 Mg PO PRN Q12HR PRN 10 08/20/18 Rx Tylenol (Acetaminophen) 325 Mg Tablet 650 Mg PO TID PRN PRN 04/11/16 Reported Aspir 81 (Aspirin) 81 Mg Tablet.dr 1 Tab PO DAILY 04/11/16 Reported Iron Supplement (Ferrous Sulfate) 325 Mg Tablet 1 Tab PO DAILY 11/10/15 Reported Advair 250-50 Diskus (Fluticasone/Salmeterol) 1 Each Disk.w.dev 1 Puff IH BID 05/06/15 Reported Duoneb 0.5-3(2.5) Mg/3 Ml (Albuterol/Ipratropium) 3 Ml Ampul.neb 3 Ml IH Q4HRS PRN 05/06/15 Reported Pravastatin Sodium 10 Mg Tablet 1 Tab PO QHS 09/16/14 Reported Carvedilol (Carvedilol) 6.25 Mg Tablet 1 Tab PO BID 09/16/14 Reported Torsemide 20 Mg Tablet 40 Mg PO BID 11/22/18 Reported Comments cxr reviewed Mild worsening of right lung base infiltrate/atelectasis and small effusion. Left lung atelectasis at the bases similar. Impression . ASSESSMENT: 1. [id number] hypercapnic respiratory failure. 2. Positive influenza A. 3. Acute exacerbation of chronic obstructive pulmonary disease. 4. Abnormal x-ray compatible with some atelectasis/ ? infiltrates 5. History of methicillin-susceptible Staphylococcus aureus bronchitis. 6. Abnormal D-dimer, nonspecific.no PE 7. History of congestive heart failure. 8. sepsis Plan . 1. BiPAP p.r.n. 2. Now on PO abx per id 3. Tamiflu.DONE 4. BD 5. dc solumedrol . change to PO steroids 6. elevate hob 7. cxr, reviewed 8. repeat ABG compensated rehab per PCP discussed w pt and rn SHERON URENA MD Nov 29, 2018 10:42
--- NOTE | 2018-11-29 10:48 | PDOC ---
PROGRESS NOTES Chief Complaint Chief Complaint Njwfi-if-glmaipu respiratory failure Sepsis secondary to influenza A, pneumonia 11/27 Mild worsening of right lung base infiltrate/atelectasis and small effusion. Left lung atelectasis at the bases similar. Influenza A Pneumonia, HCAP History of COPD Elevated D dimer Mrzssjzd-[id number] protein-calorie malnutrition Hypothyroidism (TSH > 6) ?Diastolic CHF (BNP 220) 11/27 hypercapnic on abg to use bipap day and night/ high risk without for worsening 11/28 HIGH RISK PT DUE TO NONCOMPLIANCE WITH BIPAP PER MY CHART REVIEW FOR SUDDEN 11/28 soa NOT A LOT BETTER, CONTINUE IV SOLUMEDROL TAPER 11/29 on po prednisone to snf bed History of Present Illness History of Present Illness 78 yo female with multiple hospitalizations, history of COPD, presenting with worsening shortness of breath, found to have elevated D-Dimer, pneumonia and influenza A positive from her SNF. Pt was seen and examined this morning She was resting in bed without BiPAP this morning, still requiring oxygen therapy via NC She still has some residual mild respiratory distress Discussed with RN ID and Pulmonology consulted. PO steroids D/C SNF/REHAB Vitals Vitals Vital Signs Date Time Temp Pulse Resp B/P (MAP) Pulse Ox O2 Delivery O2 Flow Rate FiO2 11/29/18 08:09 70 11/29/18 08:00 Nasal Cannula 3.0 11/29/18 07:31 93 11/29/18 07:00 98.0 17 192/83 (119) 98.0 Physical Exam Physical Exam GENERAL: Sitting on side of bed after using bedside commode HEENT: Oral mucosa moist, no thrush NECK: Supple. LUNGS: Improved aeration, mild labored HEART: S1, S2. ABDOMEN: Soft, bowel sounds present, nontender, nondistended. No rebound, no guarding. EXTREMITIES: No edema, no cyanosis. NEUROLOGIC: , conversant SKIN: Warm, dry, no generalized rash. PIV General: Alert, Oriented X3, Cooperative, mild distress, Other (sleepy) Heart: Regular rate, Normal S1, No murmurs Lungs: Other (few rhonchi) Abdomen: Normal bowel sounds, Soft, No tenderness Extremities: No clubbing, No cyanosis Skin: No rashes, No significant lesion Labs LABS Laboratory Tests Test 11/28/18 11:30 11/28/18 16:38 11/28/18 20:46 11/29/18 03:50 Glucose (Fingerstick) 183 mg/dL (70-99) 168 mg/dL (70-99) 323 mg/dL (70-99) White Blood Count 7.3 x10^3/uL (4.0-11.0) Red Blood Count 3.74 x10^6/uL (3.50-5.40) Hemoglobin 9.9 g/dL (12.0-15.5) Hematocrit 31.3 % (36.0-47.0) Mean Corpuscular Volume 84 fL (79-100) Mean Corpuscular Hemoglobin 26 pg (25-35) Mean Corpuscular Hemoglobin Concent 32 g/dL (31-37) Red Cell Distribution Width 14.7 % (11.5-14.5) Platelet Count 132 x10^3/uL (140-400) Neutrophils (%) (Auto) 84 % (31-73) Lymphocytes (%) (Auto) 11 % (24-48) Monocytes (%) (Auto) 6 % (0-9) Eosinophils (%) (Auto) 0 % (0-3) Basophils (%) (Auto) 0 % (0-3) Neutrophils # (Auto) 6.1 x10^3uL (1.8-7.7) Lymphocytes # (Auto) 0.8 x10^3/uL (1.0-4.8) Monocytes # (Auto) 0.4 x10^3/uL (0.0-1.1) Eosinophils # (Auto) 0.0 x10^3/uL (0.0-0.7) Basophils # (Auto) 0.0 x10^3/uL (0.0-0.2) Sodium Level 143 mmol/L (136-145) Potassium Level 5.2 mmol/L (3.5-5.1) Chloride Level 104 mmol/L (98-107) Carbon Dioxide Level 33 mmol/L (21-32) Anion Gap 6 (6-14) Blood Urea Nitrogen 48 mg/dL (7-20) Creatinine 1.1 mg/dL (0.6-1.0) Estimated GFR (Cockcroft-Gault) 47.8 BUN/Creatinine Ratio 44 (6-20) Glucose Level 220 mg/dL (70-99) Calcium Level 8.3 mg/dL (8.5-10.1) Total Bilirubin 0.3 mg/dL (0.2-1.0) Aspartate Amino Transf (AST/SGOT) 23 U/L (15-37) Alanine Aminotransferase (ALT/SGPT) 39 U/L (14-59) Alkaline Phosphatase 69 U/L (46-116) Total Protein 5.9 g/dL (6.4-8.2) Albumin 1.9 g/dL (3.4-5.0) Albumin/Globulin Ratio 0.5 (1.0-1.7) Test 11/29/18 07:38 Glucose (Fingerstick) 152 mg/dL (70-99) Assessment and Plan Assessmemt and Plan Problems Medical Problems: (1) Elevated d-dimer Status: Acute Comment Review of Relevant I have reviewed the following items [place] (where applicable) has been applied. Labs Laboratory Tests Test 11/27/18 11:58 11/27/18 16:37 11/27/18 20:46 11/28/18 02:38 Glucose (Fingerstick) 235 mg/dL (70-99) 305 mg/dL (70-99) 200 mg/dL (70-99) White Blood Count 8.1 x10^3/uL (4.0-11.0) Red Blood Count 3.63 x10^6/uL (3.50-5.40) Hemoglobin 9.6 g/dL (12.0-15.5) Hematocrit 30.5 % (36.0-47.0) Mean Corpuscular Volume 84 fL (79-100) Mean Corpuscular Hemoglobin 27 pg (25-35) Mean Corpuscular Hemoglobin Concent 31 g/dL (31-37) Red Cell Distribution Width 15.2 % (11.5-14.5) Platelet Count 118 x10^3/uL (140-400) Neutrophils (%) (Auto) 82 % (31-73) Lymphocytes (%) (Auto) 10 % (24-48) Monocytes (%) (Auto) 8 % (0-9) Eosinophils (%) (Auto) 0 % (0-3) Basophils (%) (Auto) 0 % (0-3) Neutrophils # (Auto) 6.6 x10^3uL (1.8-7.7) Lymphocytes # (Auto) 0.8 x10^3/uL (1.0-4.8) Monocytes # (Auto) 0.6 x10^3/uL (0.0-1.1) Eosinophils # (Auto) 0.0 x10^3/uL (0.0-0.7) Basophils # (Auto) 0.0 x10^3/uL (0.0-0.2) Sodium Level 139 mmol/L (136-145) Potassium Level 5.3 mmol/L (3.5-5.1) Chloride Level 103 mmol/L (98-107) Carbon Dioxide Level 32 mmol/L (21-32) Anion Gap 4 (6-14) Blood Urea Nitrogen 52 mg/dL (7-20) Creatinine 1.2 mg/dL (0.6-1.0) Estimated GFR (Cockcroft-Gault) 43.2 BUN/Creatinine Ratio 43 (6-20) Glucose Level 303 mg/dL (70-99) Calcium Level 8.1 mg/dL (8.5-10.1) Total Bilirubin 0.3 mg/dL (0.2-1.0) Aspartate Amino Transf (AST/SGOT) 29 U/L (15-37) Alanine Aminotransferase (ALT/SGPT) 39 U/L (14-59) Alkaline Phosphatase 67 U/L (46-116) Total Protein 5.7 g/dL (6.4-8.2) Albumin 1.8 g/dL (3.4-5.0) Albumin/Globulin Ratio 0.5 (1.0-1.7) Test 11/28/18 06:54 11/28/18 11:30 11/28/18 16:38 11/28/18 20:46 Glucose (Fingerstick) 199 mg/dL (70-99) 183 mg/dL (70-99) 168 mg/dL (70-99) 323 mg/dL (70-99) Test 11/29/18 03:50 11/29/18 07:38 White Blood Count 7.3 x10^3/uL (4.0-11.0) Red Blood Count 3.74 x10^6/uL (3.50-5.40) Hemoglobin 9.9 g/dL (12.0-15.5) Hematocrit 31.3 % (36.0-47.0) Mean Corpuscular Volume 84 fL (79-100) Mean Corpuscular Hemoglobin 26 pg (25-35) Mean Corpuscular Hemoglobin Concent 32 g/dL (31-37) Red Cell Distribution Width 14.7 % (11.5-14.5) Platelet Count 132 x10^3/uL (140-400) Neutrophils (%) (Auto) 84 % (31-73) Lymphocytes (%) (Auto) 11 % (24-48) Monocytes (%) (Auto) 6 % (0-9) Eosinophils (%) (Auto) 0 % (0-3) Basophils (%) (Auto) 0 % (0-3) Neutrophils # (Auto) 6.1 x10^3uL (1.8-7.7) Lymphocytes # (Auto) 0.8 x10^3/uL (1.0-4.8) Monocytes # (Auto) 0.4 x10^3/uL (0.0-1.1) Eosinophils # (Auto) 0.0 x10^3/uL (0.0-0.7) Basophils # (Auto) 0.0 x10^3/uL (0.0-0.2) Sodium Level 143 mmol/L (136-145) Potassium Level 5.2 mmol/L (3.5-5.1) Chloride Level 104 mmol/L (98-107) Carbon Dioxide Level 33 mmol/L (21-32) Anion Gap 6 (6-14) Blood Urea Nitrogen 48 mg/dL (7-20) Creatinine 1.1 mg/dL (0.6-1.0) Estimated GFR (Cockcroft-Gault) 47.8 BUN/Creatinine Ratio 44 (6-20) Glucose Level 220 mg/dL (70-99) Calcium Level 8.3 mg/dL (8.5-10.1) Total Bilirubin 0.3 mg/dL (0.2-1.0) Aspartate Amino Transf (AST/SGOT) 23 U/L (15-37) Alanine Aminotransferase (ALT/SGPT) 39 U/L (14-59) Alkaline Phosphatase 69 U/L (46-116) Total Protein 5.9 g/dL (6.4-8.2) Albumin 1.9 g/dL (3.4-5.0) Albumin/Globulin Ratio 0.5 (1.0-1.7) Glucose (Fingerstick) 152 mg/dL (70-99) Laboratory Tests Test 11/28/18 11:30 11/28/18 16:38 11/28/18 20:46 11/29/18 03:50 Glucose (Fingerstick) 183 mg/dL (70-99) 168 mg/dL (70-99) 323 mg/dL (70-99) White Blood Count 7.3 x10^3/uL (4.0-11.0) Red Blood Count 3.74 x10^6/uL (3.50-5.40) Hemoglobin 9.9 g/dL (12.0-15.5) Hematocrit 31.3 % (36.0-47.0) Mean Corpuscular Volume 84 fL (79-100) Mean Corpuscular Hemoglobin 26 pg (25-35) Mean Corpuscular Hemoglobin Concent 32 g/dL (31-37) Red Cell Distribution Width 14.7 % (11.5-14.5) Platelet Count 132 x10^3/uL (140-400) Neutrophils (%) (Auto) 84 % (31-73) Lymphocytes (%) (Auto) 11 % (24-48) Monocytes (%) (Auto) 6 % (0-9) Eosinophils (%) (Auto) 0 % (0-3) Basophils (%) (Auto) 0 % (0-3) Neutrophils # (Auto) 6.1 x10^3uL (1.8-7.7) Lymphocytes # (Auto) 0.8 x10^3/uL (1.0-4.8) Monocytes # (Auto) 0.4 x10^3/uL (0.0-1.1) Eosinophils # (Auto) 0.0 x10^3/uL (0.0-0.7) Basophils # (Auto) 0.0 x10^3/uL (0.0-0.2) Sodium Level 143 mmol/L (136-145) Potassium Level 5.2 mmol/L (3.5-5.1) Chloride Level 104 mmol/L (98-107) Carbon Dioxide Level 33 mmol/L (21-32) Anion Gap 6 (6-14) Blood Urea Nitrogen 48 mg/dL (7-20) Creatinine 1.1 mg/dL (0.6-1.0) Estimated GFR (Cockcroft-Gault) 47.8 BUN/Creatinine Ratio 44 (6-20) Glucose Level 220 mg/dL (70-99) Calcium Level 8.3 mg/dL (8.5-10.1) Total Bilirubin 0.3 mg/dL (0.2-1.0) Aspartate Amino Transf (AST/SGOT) 23 U/L (15-37) Alanine Aminotransferase (ALT/SGPT) 39 U/L (14-59) Alkaline Phosphatase 69 U/L (46-116) Total Protein 5.9 g/dL (6.4-8.2) Albumin 1.9 g/dL (3.4-5.0) Albumin/Globulin Ratio 0.5 (1.0-1.7) Test 11/29/18 07:38 Glucose (Fingerstick) 152 mg/dL (70-99) Microbiology 11/22/18 Blood Culture - Final, Complete NO GROWTH AFTER 5 DAYS Medications Current Medications Albuterol/ Ipratropium (Duoneb) 3 ml STK-MED ONCE .ROUTE ; Start 11/21/18 at 18: 13; Stop 11/21/18 at 18:14; Status DC Aspirin ([email or web address] Aspirin) 325 mg 1X ONCE PO Last administered on 11/21/18at 19:55 ; Start 11/21/18 at 20:00; Stop 11/21/18 at 20:01; Status DC Ondansetron HCl (Zofran) 4 mg PRN Q8HRS PRN IV NAUSEA/VOMITING; Start 11/21/18 at 21:15; Stop 11/22/18 at 21:14; Status DC Albuterol/ Ipratropium (Duoneb) 3 ml RTQID NEB Last administered on 11/23/18at 07 :44; Start 11/22/18 at 08:00; Stop 11/23/18 at 07:59; Status DC Insulin Human Lispro (HumaLOG) 0-5 UNITS TIDWMEALS SQ Last administered on 11/27at 17:42; Start 11/22/18 at 08:00; Stop 11/27/18 at 18:56; Status DC Dextrose (Dextrose 50%-Water Syringe) 12.5 gm PRN Q15MIN PRN IV SEE COMMENTS; Start 11/21/18 at 21:15 Enoxaparin Sodium (Lovenox 100mg Syringe) 90 mg 1X ONCE SQ Last administered on 11/21/18at 22:50; Start 11/21/18 at 22:00; Stop 11/21/18 at 22:01; Status DC Albuterol/ Ipratropium (Duoneb) 3 ml 1X ONCE NEB Last administered on at 22:14; Start 11/21/18 at 22:00; Stop 11/21/18 at 22:01; Status DC Budesonide (Pulmicort) 0.5 mg RTBID NEB Last administered on 11/29/18at 07:42; Start 11/21/18 at 23:45 Labetalol HCl (Normodyne Iv Push) 10 mg PRN Q4HRS PRN IVP HYPERTENSION, SEE COMMENTS; Start 11/22/18 at 00:00; Stop 11/23/18 at 07:42; Status DC Lorazepam (Ativan) 0.5 mg PRN Q6HRS PRN IV ANXIETY / AGITATION Last administered on 11/22/18at 23:37; Start 11/22/18 at 00:00 Labetalol HCl (Normodyne Iv Push) 20 mg PRN Q6HRS PRN IVP HYPERTENSION, SEE COMMENTS; Start 11/22/18 at 00:00 Lorazepam (Ativan) 0.5 mg PRN Q6HRS PRN IV ANXIETY / AGITATION; Start 11/22/18 at 00:00; Stop 11/22/18 at 14:42; Status DC Acetaminophen (Tylenol) 650 mg PRN TID PRN PO PAIN Last administered on at 22:42; Start 11/22/18 at 01:45 Alprazolam (Xanax) 0.25 mg PRN Q6HRS PRN PO ANXIETY / AGITATION Last administered on 11/28/18 22:41; Start 11/22/18 at 01:45 Aspirin (Ecotrin) 81 mg DAILYWBKFT PO Last administered on 11/29/18 08:10; Start 11/22/18 at 08:00 Carvedilol (Coreg) 6.25 mg BIDWMEALS PO Last administered on 11/29/18at 08:09; Start 11/22/18 at 08:00 Ferrous Sulfate (Feosol) 325 mg DAILY PO Last administered on 11/29/18 08:10; Start 11/22/18 at 09:00 Guaifenesin (Mucinex) 600 mg BID PO Last administered on 11/29/18at 08:10; Start 11/22/18 at 09:00 Albuterol Sulfate (Ventolin Neb Soln) 2.5 mg PRN Q4HRS PRN NEB CONGESTION Last administered on 11/23/18at 03:43; Start 11/22/18 at 01:45 Magnesium Hydroxide (Milk Of Magnesia) 2,400 mg PRN Q12HR PRN PO CONSTIPATION; Start 11/22/18 at 01:45 Prednisone (Prednisone) 10 mg DAILY PO Last administered on 11/23/18 08:41; Start 11/22/18 at 09:00; Stop 11/24/18 at 08:29; Status DC Oxymetazoline HCl (Afrin) 1 spray PRN Q2HR PRN NS nose bleeds; Start 11/22/18 at 01:45 Potassium Chloride (Klor-Con) 40 meq DAILY08 PO Last administered on 11/25/18 09:16; Start 11/22/18 at 08:00; Stop 11/27/18 at 15:42; Status DC Atorvastatin Calcium (Lipitor) 5 mg QHS PO Last administered on 11/28/18at 22:40 ; Start 11/22/18 at 21:00 Torsemide (Demadex) 40 mg BID92 PO Last administered on 11/22/18 16:11; Start 11/22/18 at 09:00; Stop 11/23/18 at 07:37; Status DC Morphine Sulfate (Morphine Sulfate) 2 mg PRN Q4HRS PRN IV PAIN Last administered on 11/26/18at 04:06; Start 11/22/18 at 03:15 Piperacillin Sod/ Tazobactam Sod (Zosyn Per Pharmacy) 1 each PRN DAILY PRN MC SEE COMMENTS; Start 11/22/18 at 09:00; Stop 11/24/18 at 11:24; Status DC Piperacillin Sod/ Tazobactam Sod 3.375 gm/Sodium Chloride 50 ml @ 100 mls/hr Q6HRS IV Last administered on 11/24/18at 06:00; Start 11/22/18 at 10:00; Stop 11/24 at 11:24; Status DC Nystatin (Nystop) 1 jaison BID TP Last administered on 11/29/18at 08:11; Start 11/22 at 11:00 Sodium Chloride 1,000 ml @ 250 mls/hr 1X ONCE IV Last administered on at 11:37; Start 11/22/18 at 11:00; Stop 11/22/18 at 14:59; Status DC Oseltamivir Phosphate (Tamiflu) 30 mg BID PO Last administered on 11/24/18at 08: 49; Start 11/22/18 at 12:00; Stop 11/24/18 at 11:22; Status DC Piperacillin Sod/ Tazobactam Sod (Zosyn Per Pharmacy) 1 each PRN DAILY PRN MC SEE COMMENTS; Start 11/22/18 at 12:15; Stop 11/22/18 at 12:24; Status DC Lactobacillus Rhamnosus (Culturelle) 1 cap BID PO Last administered on at 08:10; Start 11/22/18 at 21:00 Albuterol/ Ipratropium (Duoneb) 3 ml RTQID NEB Last administered on 11/24/18at 07 :42; Start 11/23/18 at 12:00; Stop 11/24/18 at 08:29; Status DC Sodium Chloride 500 ml @ 500 mls/hr 1X ONCE IV Last administered on 11/23/18at 12:00; Start 11/23/18 at 12:00; Stop 11/23/18 at 12:59; Status DC Albuterol/ Ipratropium (Duoneb) 3 ml Q4HRS NEB Last administered on 11/29/18at 07:42; Start 11/24/18 at 12:00 Methylprednisolone Sodium Succinate (SOLU-Medrol 40MG VIAL) 40 mg Q8HRS IV Last administered on 11/25/18at 06:26; Start 11/24/18 at 08:30; Stop 11/25/18 at 08:52; Status DC Oseltamivir Phosphate (Tamiflu) 30 mg DAILY PO Last administered on 11/27/18at 08:18; Start 11/25/18 at 09:00; Stop 11/27/18 at 09:01; Status DC Piperacillin Sod/ Tazobactam Sod 2.25 gm/Sodium Chloride 50 ml @ 100 mls/hr Q8HRS IV Last administered on 11/24/18at 14:51; Start 11/24/18 at 14:00; Stop 11/24 at 14:54; Status DC Piperacillin Sod/ Tazobactam Sod 2.25 gm/Sodium Chloride 50 ml @ 100 mls/hr Q6HRS IV Last administered on 11/26/18at 05:33; Start 11/24/18 at 20:00; Stop 08/06 at 08:59; Status DC Methylprednisolone Sodium Succinate (SOLU-Medrol 40MG VIAL) 40 mg Q12HR IV Last administered on 11/27/18at 08:17; Start 11/25/18 at 09:00; Stop 11/27/18 at 10:34; Status DC Amoxicillin/ Clavulanate Potassium (Augmentin 500/ 125mg) 1 tab BID PO Last administered on 11/29/18at 08:10; Start 11/26/18 at 09:00 Methylprednisolone Sodium Succinate (SOLU-Medrol 40MG VIAL) 40 mg QPM IV Last administered on 11/28/18at 17:03; Start 11/27/18 at 18:00; Stop 11/29/18 at 10:40 ; Status DC Insulin Human Lispro (HumaLOG) 0-9 UNITS TIDWMEALS SQ Last administered on 11/28at 17:10; Start 11/28/18 at 08:00 Prednisone (Prednisone) 10 mg DAILY PO ; Start 11/29/18 at 11:00 Active Scripts Active Prednisone (Prednisone) 10 Mg Tablet 10 Mg PO UD Take 5 tablets by mouth daily for 2 days, then take 4 tablets by mouth daily for 2 days, then take 3 tablets by mouth daily for 2 days, then take 2 tablets by mouth daily for 2 days, then take 1 tablets by mouth daily for 2 days, then stop. Milk Of Magnesia (Magnesium Hydroxide) 400 Mg/5 Ml Oral.susp 2,400 Mg PO PRN Q12HR PRN 10 Days Reported Potassium Chloride 20 Meq Tablet.er 40 Meq PO DAILY Mucinex (Guaifenesin) 600 Mg Tablet.er 1 Tab PO BID Xanax (Alprazolam) 0.25 Mg Tablet 0.25 Mg PO PRN Q6HRS PRN Afrin (Oxymetazoline Hcl) 30 Ml [place] 30 Ml NS PRN Q2HR PRN Tylenol (Acetaminophen) 325 Mg Tablet 650 Mg PO TID PRN PRN Aspir 81 (Aspirin) 81 Mg Tablet. 1 Tab PO DAILY Iron Supplement (Ferrous Sulfate) 325 Mg Tablet 1 Tab PO DAILY Advair 250-50 Diskus (Fluticasone/Salmeterol) 1 Each Disk.w.dev 1 Puff IH BID Duoneb 0.5-3(2.5) Mg/3 Ml (Albuterol/Ipratropium) 3 Ml Ampul.neb 3 Ml IH Q4HRS PRN Pravastatin Sodium 10 Mg Tablet 1 Tab PO QHS Carvedilol (Carvedilol) 6.25 Mg Tablet 1 Tab PO BID Torsemide 20 Mg Tablet 40 Mg PO BID Vitals/I & O Vital Sign - Last 24 Hours 11/28/18 11/28/18 11/28/18 11/28/18 10:49 11:42 14:41 16:09 Temp 97.9 98.2 97.9 98.2 Pulse 61 66 Resp 18 20 B/P (MAP) 147/67 (93) 145/65 (91) Pulse Ox 96 94 95 94 O2 Delivery Nasal Cannula Nasal Cannula Nasal Cannula Nasal Cannula O2 Flow Rate 3.0 3.0 3.0 3.0 11/28/18 11/28/18 11/28/18 11/28/18 17:05 19:00 19:28 20:00 Temp 97.9 97.9 Pulse 72 73 Resp 19 B/P (MAP) 125/59 120/58 (78) Pulse Ox 95 94 O2 Delivery Nasal Cannula Nasal Cannula Nasal Cannula O2 Flow Rate 3.0 3.0 3.0 11/28/18 11/28/18 11/29/18 11/29/18 22:49 23:30 03:40 07:00 Temp 97.7 97.6 98.0 97.7 97.6 98.0 Pulse 64 63 65 Resp 17 17 17 B/P (MAP) 149/66 (93) 148/69 (95) 192/83 (119) Pulse Ox 94 94 96 92 O2 Delivery Nasal Cannula Nasal Cannula Nasal Cannula Nasal Cannula O2 Flow Rate 3.0 3.0 2.0 2.0 11/29/18 11/29/1819 07:31 08:00 08:09 Pulse 70 Pulse Ox 93 O2 Delivery Nasal Cannula Nasal Cannula O2 Flow Rate 3.0 3.0 Intake and Output 11/28/18 11/28/18 11/29/18 14:59 22:59 06:59 Intake Total 600 ml 430 ml 700 ml Output Total 200 ml 200 ml Balance 400 ml 230 ml 700 ml Nutrition Consultation Dietary Evaluation: Recommendations by RD: Protein supplementation Comments: REC continue cardiac/ADA diet, add ground meats to aid with chewing while pt doesn't have her dentures REC continue Ensure changed to bid, will monitor blood sugar offer glucerna if needed and or nepro . Expected Outcomes/Goals: PO intake to meet >75% est needs- goal ongoing Malnutrition Findings: Food and Nutrition Intake (Sev: <50% est energy req 5days Weight Status: Obese FAITH BEAN MD Nov 29, 2018 10:48
[2018-11-29 11:00] VITALS: BP 161/68
[2018-11-29] MEDS ORDERED: predniSONE 10 MG TABLET PO SCH (11:00)
[2018-11-29] MEDS ORDERED: AMOX1TAB10 PO (11:14)
[2018-11-29] MEDS ORDERED: LACT1CAP6 PO (11:15)
[2018-11-29] MEDS ORDERED: NYST15PO9 TP (11:16)
[2018-11-29] MEDS ORDERED: PRED1TAB3 PO (11:18)
--- NOTE | 2018-11-29 11:51 | PDOC3 ---
Discharge Summary Date of Admission: Nov 21, 2018 Date of Discharge: Nov 29, 2018 Follow-Up: 1-2 days Admitting Diagnosis comment: Chief Complaint Chief Complaint Wgwwa-[id number] respiratory failure Sepsis secondary to influenza A, pneumonia 11/27 Mild worsening of right lung base infiltrate/atelectasis and small effusion. Left lung atelectasis at the bases similar. Influenza A Pneumonia, HCAP History of COPD Elevated D dimer Wxotlbzo-yw-jodfgh protein-calorie malnutrition Hypothyroidism (TSH > 6) ?Diastolic CHF (BNP 220) 11/27 hypercapnic on abg to use bipap day and night/ high risk without for worsening 11/28 HIGH RISK PT DUE TO NONCOMPLIANCE WITH BIPAP PER MY CHART REVIEW FOR SUDDEN 11/28 soa NOT A LOT BETTER, CONTINUE IV SOLUMEDROL TAPER 11/29 on po prednisone to snf bed History of Present Illness History of Present Illness 78 yo female with multiple hospitalizations, history of COPD, presenting with worsening shortness of breath, found to have elevated D-Dimer, pneumonia and influenza A positive from her SNF. Pt was seen and examined this morning She was resting in bed without BiPAP this morning, still requiring oxygen therapy via NC She still has some residual mild respiratory distress Discussed with RN ID and Pulmonology consulted. PO steroids D/C SNF/REHAB Vitals Vitals Vital Signs Date Time Temp Pulse Resp B/P (MAP) Pulse Ox O2 Delivery O2 Flow Rate FiO2 11/29/18 08:09 70 11/29/18 08:00 Nasal Cannula 3.0 11/29/18 07:31 93 11/29/18 07:00 98.0 17 192/83 (119) 98.0 Physical Exam Physical Exam GENERAL: Sitting on side of bed HEENT: Oral mucosa moist, no thrush NECK: Supple. LUNGS: Improved aeration, not labored HEART: S1, S2. ABDOMEN: Soft, bowel sounds present, nontender, nondistended. No rebound, no guarding. EXTREMITIES: No edema, no cyanosis. NEUROLOGIC: , conversant SKIN: Warm, dry, no generalized rash. PIV General: Alert, Oriented X3, Cooperative, mild distress, Other alert Heart: Regular rate, Normal S1, No murmurs Lungs: Other (few rhonchi) Abdomen: Normal bowel sounds, Soft, No tenderness Extremities: No clubbing, No cyanosis Skin: No rashes, No significant lesion FINAL DIAGNOSIS Problems Medical Problems: (1) Elevated d-dimer Status: Acute Brief Hospital Course Ms. Schwartz is a 78 old [sex] who presented with [ ] CONDITION AT DISCHARGE: Improved Discharge Medications Current Medications Albuterol/ Ipratropium (Duoneb) 3 ml STK-MED ONCE .ROUTE ; Start 11/21/18 at 18: 13; Stop 11/21/18 at 18:14; Status DC Aspirin ([place] Aspirin) 325 mg 1X ONCE PO Last administered on 11/21/18at 19:55 ; Start 11/21/18 at 20:00; Stop 11/21/18 at 20:01; Status DC Ondansetron HCl (Zofran) 4 mg PRN Q8HRS PRN IV NAUSEA/VOMITING; Start 11/21/18 at 21:15; Stop 11/22/18 at 21:14; Status DC Albuterol/ Ipratropium (Duoneb) 3 ml RTQID NEB Last administered on 11/23/18at 07 :44; Start 11/22/18 at 08:00; Stop 11/23/18 at 07:59; Status DC Insulin Human Lispro (HumaLOG) 0-5 UNITS TIDWMEALS SQ Last administered on 11/27at 17:42; Start 11/22/18 at 08:00; Stop 11/27/18 at 18:56; Status DC Dextrose (Dextrose 50%-Water Syringe) 12.5 gm PRN Q15MIN PRN IV SEE COMMENTS; Start 11/21/18 at 21:15 Enoxaparin Sodium (Lovenox 100mg Syringe) 90 mg 1X ONCE SQ Last administered on 11/21/18at 22:50; Start 11/21/18 at 22:00; Stop 11/21/18 at 22:01; Status DC Albuterol/ Ipratropium (Duoneb) 3 ml 1X ONCE NEB Last administered on at 22:14; Start 11/21/18 at 22:00; Stop 11/21/18 at 22:01; Status DC Budesonide (Pulmicort) 0.5 mg RTBID NEB Last administered on 11/29/18at 07:42; Start 11/21/18 at 23:45 Labetalol HCl (Normodyne Iv Push) 10 mg PRN Q4HRS PRN IVP HYPERTENSION, SEE COMMENTS; Start 11/22/18 at 00:00; Stop 11/23/18 at 07:42; Status DC Lorazepam (Ativan) 0.5 mg PRN Q6HRS PRN IV ANXIETY / AGITATION Last administered on 11/22/18 23:37; Start 11/22/18 at 00:00 Labetalol HCl (Normodyne Iv Push) 20 mg PRN Q6HRS PRN IVP HYPERTENSION, SEE COMMENTS; Start 11/22/18 at 00:00 Lorazepam (Ativan) 0.5 mg PRN Q6HRS PRN IV ANXIETY / AGITATION; Start 11/22/18 at 00:00; Stop 11/22/18 at 14:42; Status DC Acetaminophen (Tylenol) 650 mg PRN TID PRN PO PAIN Last administered on 22:42; Start 11/22/18 at 01:45 Alprazolam (Xanax) 0.25 mg PRN Q6HRS PRN PO ANXIETY / AGITATION Last administered on 11/28/18 22:41; Start 11/22/18 at 01:45 Aspirin (Ecotrin) 81 mg DAILYWBKFT PO Last administered on 11/29/18 08:10; Start 11/22/18 at 08:00 Carvedilol (Coreg) 6.25 mg BIDWMEALS PO Last administered on 11/29/18 08:09; Start 11/22/18 at 08:00 Ferrous Sulfate (Feosol) 325 mg DAILY PO Last administered on 11/29/18 08:10; Start 11/22/18 at 09:00 Guaifenesin (Mucinex) 600 mg BID PO Last administered on 11/29/18 08:10; Start 11/22/18 at 09:00 Albuterol Sulfate (Ventolin Neb Soln) 2.5 mg PRN Q4HRS PRN NEB CONGESTION Last administered on 11/23/18 03:43; Start 11/22/18 at 01:45 Magnesium Hydroxide (Milk Of Magnesia) 2,400 mg PRN Q12HR PRN PO CONSTIPATION; Start 11/22/18 at 01:45 Prednisone (Prednisone) 10 mg DAILY PO Last administered on 11/23/18 08:41; Start 11/22/18 at 09:00; Stop 11/24/18 at 08:29; Status DC Oxymetazoline HCl (Afrin) 1 spray PRN Q2HR PRN NS nose bleeds; Start 11/22/18 at 01:45 Potassium Chloride (Klor-Con) 40 meq DAILY08 PO Last administered on 11/25/18at 09:16; Start 11/22/18 at 08:00; Stop 11/27/18 at 15:42; Status DC Atorvastatin Calcium (Lipitor) 5 mg QHS PO Last administered on 11/28/18at 22:40 ; Start 11/22/18 at 21:00 Torsemide (Demadex) 40 mg BID92 PO Last administered on 11/22/18at 16:11; Start 11/22/18 at 09:00; Stop 11/23/18 at 07:37; Status DC Morphine Sulfate (Morphine Sulfate) 2 mg PRN Q4HRS PRN IV PAIN Last administered on 11/26/18at 04:06; Start 11/22/18 at 03:15 Piperacillin Sod/ Tazobactam Sod (Zosyn Per Pharmacy) 1 each PRN DAILY PRN MC SEE COMMENTS; Start 11/22/18 at 09:00; Stop 11/24/18 at 11:24; Status DC Piperacillin Sod/ Tazobactam Sod 3.375 gm/Sodium Chloride 50 ml @ 100 mls/hr Q6HRS IV Last administered on 11/24/18at 06:00; Start 11/22/18 at 10:00; Stop 11/24 at 11:24; Status DC Nystatin (Nystop) 1 jaison BID TP Last administered on 11/29/18at 08:11; Start 11/22 at 11:00 Sodium Chloride 1,000 ml @ 250 mls/hr 1X ONCE IV Last administered on at 11:37; Start 11/22/18 at 11:00; Stop 11/22/18 at 14:59; Status DC Oseltamivir Phosphate (Tamiflu) 30 mg BID PO Last administered on 11/24/18at 08: 49; Start 11/22/18 at 12:00; Stop 11/24/18 at 11:22; Status DC Piperacillin Sod/ Tazobactam Sod (Zosyn Per Pharmacy) 1 each PRN DAILY PRN MC SEE COMMENTS; Start 11/22/18 at 12:15; Stop 11/22/18 at 12:24; Status DC Lactobacillus Rhamnosus (Culturelle) 1 cap BID PO Last administered on at 08:10; Start 11/22/18 at 21:00 Albuterol/ Ipratropium (Duoneb) 3 ml RTQID NEB Last administered on 11/24/18at 07 :42; Start 11/23/18 at 12:00; Stop 11/24/18 at 08:29; Status DC Sodium Chloride 500 ml @ 500 mls/hr 1X ONCE IV Last administered on 11/23/18at 12:00; Start 11/23/18 at 12:00; Stop 11/23/18 at 12:59; Status DC Albuterol/ Ipratropium (Duoneb) 3 ml Q4HRS NEB Last administered on 11/29/18at 07:42; Start 11/24/18 at 12:00 Methylprednisolone Sodium Succinate (SOLU-Medrol 40MG VIAL) 40 mg Q8HRS IV Last administered on 11/25/18at 06:26; Start 11/24/18 at 08:30; Stop 11/25/18 at 08:52; Status DC Oseltamivir Phosphate (Tamiflu) 30 mg DAILY PO Last administered on 11/27/18at 08:18; Start 11/25/18 at 09:00; Stop 11/27/18 at 09:01; Status DC Piperacillin Sod/ Tazobactam Sod 2.25 gm/Sodium Chloride 50 ml @ 100 mls/hr Q8HRS IV Last administered on 11/24/18at 14:51; Start 11/24/18 at 14:00; Stop 11/24 at 14:54; Status DC Piperacillin Sod/ Tazobactam Sod 2.25 gm/Sodium Chloride 50 ml @ 100 mls/hr Q6HRS IV Last administered on 11/26/18at 05:33; Start 11/24/18 at 20:00; Stop 08/06 at 08:59; Status DC Methylprednisolone Sodium Succinate (SOLU-Medrol 40MG VIAL) 40 mg Q12HR IV Last administered on 11/27/18at 08:17; Start 11/25/18 at 09:00; Stop 3/12/19 at 10:34; Status DC Amoxicillin/ Clavulanate Potassium (Augmentin 500/ 125mg) 1 tab BID PO Last administered on 11/29/18at 08:10; Start 11/26/18 at 09:00 Methylprednisolone Sodium Succinate (SOLU-Medrol 40MG VIAL) 40 mg QPM IV Last administered on 11/28/18at 17:03; Start 11/27/18 at 18:00; Stop 11/29/18 at 10:40 ; Status DC Insulin Human Lispro (HumaLOG) 0-9 UNITS TIDWMEALS SQ Last administered on 11/28at 17:10; Start 11/28/18 at 08:00 Prednisone (Prednisone) 10 mg DAILY PO ; Start 11/29/18 at 11:00 Active Scripts Active Milk Of Magnesia (Magnesium Hydroxide) 400 Mg/5 Ml Oral.susp 2,400 Mg PO PRN Q12HR PRN 10 Days Reported Prednisone 1 Mg Tablet 10 Mg PO DAILY 3 Days Nystatin 15 Gm Powder 15 Gm TP BID Probiotic (Lactobacillus Acidophilus) 1 Each Capsule 1 Each PO BID 10 Days Amox Tr-K Clv 500-125 Mg Tab (Amoxicillin/Potassium Clav) 1 Each Tablet 1 Tab PO BID 5 Days Torsemide 20 Mg Tablet 40 Mg PO BID Potassium Chloride 20 Meq Tablet.er 40 Meq PO DAILY Mucinex (Guaifenesin) 600 Mg Tablet.er 1 Tab PO BID Xanax (Alprazolam) 0.25 Mg Tablet 0.25 Mg PO PRN Q6HRS PRN Afrin (Oxymetazoline Hcl) 30 Ml [place] 30 Ml NS PRN Q2HR PRN Tylenol (Acetaminophen) 325 Mg Tablet 650 Mg PO TID PRN PRN Aspir 81 (Aspirin) 81 Mg Tablet.dr 1 Tab PO DAILY Iron Supplement (Ferrous Sulfate) 325 Mg Tablet 1 Tab PO DAILY Advair 250-50 Diskus (Fluticasone/Salmeterol) 1 Each Disk.w.dev 1 Puff IH BID Duoneb 0.5-3(2.5) Mg/3 Ml (Albuterol/Ipratropium) 3 Ml Ampul.neb 3 Ml IH Q4HRS PRN Pravastatin Sodium 10 Mg Tablet 1 Tab PO QHS Carvedilol (Carvedilol) 6.25 Mg Tablet 1 Tab PO BID Vital Signs Vital Signs Date Time Temp Pulse Resp B/P (MAP) Pulse Ox O2 Delivery O2 Flow Rate FiO2 11/29/18 11:34 93 Nasal Cannula 3.0 11/29/18 11:00 97.7 63 19 161/68 (99) 97.7 Labs Laboratory Tests Test 11/27/18 11:58 11/27/18 16:37 11/27/18 20:46 11/28/18 02:38 Glucose (Fingerstick) 235 mg/dL (70-99) 305 mg/dL (70-99) 200 mg/dL (70-99) White Blood Count 8.1 x10^3/uL (4.0-11.0) Red Blood Count 3.63 x10^6/uL (3.50-5.40) Hemoglobin 9.6 g/dL (12.0-15.5) Hematocrit 30.5 % (36.0-47.0) Mean Corpuscular Volume 84 fL (79-100) Mean Corpuscular Hemoglobin 27 pg (25-35) Mean Corpuscular Hemoglobin Concent 31 g/dL (31-37) Red Cell Distribution Width 15.2 % (11.5-14.5) Platelet Count 118 x10^3/uL (140-400) Neutrophils (%) (Auto) 82 % (31-73) Lymphocytes (%) (Auto) 10 % (24-48) Monocytes (%) (Auto) 8 % (0-9) Eosinophils (%) (Auto) 0 % (0-3) Basophils (%) (Auto) 0 % (0-3) Neutrophils # (Auto) 6.6 x10^3uL (1.8-7.7) Lymphocytes # (Auto) 0.8 x10^3/uL (1.0-4.8) Monocytes # (Auto) 0.6 x10^3/uL (0.0-1.1) Eosinophils # (Auto) 0.0 x10^3/uL (0.0-0.7) Basophils # (Auto) 0.0 x10^3/uL (0.0-0.2) Sodium Level 139 mmol/L (136-145) Potassium Level 5.3 mmol/L (3.5-5.1) Chloride Level 103 mmol/L (98-107) Carbon Dioxide Level 32 mmol/L (21-32) Anion Gap 4 (6-14) Blood Urea Nitrogen 52 mg/dL (7-20) Creatinine 1.2 mg/dL (0.6-1.0) Estimated GFR (Cockcroft-Gault) 43.2 BUN/Creatinine Ratio 43 (6-20) Glucose Level 303 mg/dL (70-99) Calcium Level 8.1 mg/dL (8.5-10.1) Total Bilirubin 0.3 mg/dL (0.2-1.0) Aspartate Amino Transf (AST/SGOT) 29 U/L (15-37) Alanine Aminotransferase (ALT/SGPT) 39 U/L (14-59) Alkaline Phosphatase 67 U/L (46-116) Total Protein 5.7 g/dL (6.4-8.2) Albumin 1.8 g/dL (3.4-5.0) Albumin/Globulin Ratio 0.5 (1.0-1.7) Test 11/28/18 06:54 11/28/18 11:30 11/28/18 16:38 11/28/18 20:46 Glucose (Fingerstick) 199 mg/dL (70-99) 183 mg/dL (70-99) 168 mg/dL (70-99) 323 mg/dL (70-99) Test 11/29/18 03:50 11/29/18 07:38 White Blood Count 7.3 x10^3/uL (4.0-11.0) Red Blood Count 3.74 x10^6/uL (3.50-5.40) Hemoglobin 9.9 g/dL (12.0-15.5) Hematocrit 31.3 % (36.0-47.0) Mean Corpuscular Volume 84 fL (79-100) Mean Corpuscular Hemoglobin 26 pg (25-35) Mean Corpuscular Hemoglobin Concent 32 g/dL (31-37) Red Cell Distribution Width 14.7 % (11.5-14.5) Platelet Count 132 x10^3/uL (140-400) Neutrophils (%) (Auto) 84 % (31-73) Lymphocytes (%) (Auto) 11 % (24-48) Monocytes (%) (Auto) 6 % (0-9) Eosinophils (%) (Auto) 0 % (0-3) Basophils (%) (Auto) 0 % (0-3) Neutrophils # (Auto) 6.1 x10^3uL (1.8-7.7) Lymphocytes # (Auto) 0.8 x10^3/uL (1.0-4.8) Monocytes # (Auto) 0.4 x10^3/uL (0.0-1.1) Eosinophils # (Auto) 0.0 x10^3/uL (0.0-0.7) Basophils # (Auto) 0.0 x10^3/uL (0.0-0.2) Sodium Level 143 mmol/L (136-145) Potassium Level 5.2 mmol/L (3.5-5.1) Chloride Level 104 mmol/L (98-107) Carbon Dioxide Level 33 mmol/L (21-32) Anion Gap 6 (6-14) Blood Urea Nitrogen 48 mg/dL (7-20) Creatinine 1.1 mg/dL (0.6-1.0) Estimated GFR (Cockcroft-Gault) 47.8 BUN/Creatinine Ratio 44 (6-20) Glucose Level 220 mg/dL (70-99) Calcium Level 8.3 mg/dL (8.5-10.1) Total Bilirubin 0.3 mg/dL (0.2-1.0) Aspartate Amino Transf (AST/SGOT) 23 U/L (15-37) Alanine Aminotransferase (ALT/SGPT) 39 U/L (14-59) Alkaline Phosphatase 69 U/L (46-116) Total Protein 5.9 g/dL (6.4-8.2) Albumin 1.9 g/dL (3.4-5.0) Albumin/Globulin Ratio 0.5 (1.0-1.7) Glucose (Fingerstick) 152 mg/dL (70-99) Laboratory Tests Test 11/28/18 16:38 11/28/18 20:46 11/29/18 03:50 11/29/18 07:38 Glucose (Fingerstick) 168 mg/dL (70-99) 323 mg/dL (70-99) 152 mg/dL (70-99) White Blood Count 7.3 x10^3/uL (4.0-11.0) Red Blood Count 3.74 x10^6/uL (3.50-5.40) Hemoglobin 9.9 g/dL (12.0-15.5) Hematocrit 31.3 % (36.0-47.0) Mean Corpuscular Volume 84 fL (79-100) Mean Corpuscular Hemoglobin 26 pg (25-35) Mean Corpuscular Hemoglobin Concent 32 g/dL (31-37) Red Cell Distribution Width 14.7 % (11.5-14.5) Platelet Count 132 x10^3/uL (140-400) Neutrophils (%) (Auto) 84 % (31-73) Lymphocytes (%) (Auto) 11 % (24-48) Monocytes (%) (Auto) 6 % (0-9) Eosinophils (%) (Auto) 0 % (0-3) Basophils (%) (Auto) 0 % (0-3) Neutrophils # (Auto) 6.1 x10^3uL (1.8-7.7) Lymphocytes # (Auto) 0.8 x10^3/uL (1.0-4.8) Monocytes # (Auto) 0.4 x10^3/uL (0.0-1.1) Eosinophils # (Auto) 0.0 x10^3/uL (0.0-0.7) Basophils # (Auto) 0.0 x10^3/uL (0.0-0.2) Sodium Level 143 mmol/L (136-145) Potassium Level 5.2 mmol/L (3.5-5.1) Chloride Level 104 mmol/L (98-107) Carbon Dioxide Level 33 mmol/L (21-32) Anion Gap 6 (6-14) Blood Urea Nitrogen 48 mg/dL (7-20) Creatinine 1.1 mg/dL (0.6-1.0) Estimated GFR (Cockcroft-Gault) 47.8 BUN/Creatinine Ratio 44 (6-20) Glucose Level 220 mg/dL (70-99) Calcium Level 8.3 mg/dL (8.5-10.1) Total Bilirubin 0.3 mg/dL (0.2-1.0) Aspartate Amino Transf (AST/SGOT) 23 U/L (15-37) Alanine Aminotransferase (ALT/SGPT) 39 U/L (14-59) Alkaline Phosphatase 69 U/L (46-116) Total Protein 5.9 g/dL (6.4-8.2) Albumin 1.9 g/dL (3.4-5.0) Albumin/Globulin Ratio 0.5 (1.0-1.7) Allergies Allergies Coded Allergies Type Severity Reaction Last Updated Verified doxycycline Allergy Intermediate Rash 02/16/18 Yes I S O L A T I O N *CONTACT* Allergy Unknown 12/12/16 Yes Disposition/Orders: Other (snf bed) Patient Instructions d/c planning 37 min FAITH BEAN MD Nov 29, 2018 11:51
[2018-11-29] MEDS ORDERED: LACT1CAP19 PO (11:52)
--- NOTE | 2018-11-29 11:53 | SNU/HH DC ---
DISCHARGE ORDERS DISCHARGE INFORMATION: FINAL DIAGNOSIS Problems Medical Problems: (1) Elevated d-dimer Status: Acute CONDITION ON DISCHARGE: Stable CODE STATUS: Code Status: Full FCI: SNF STAY <30 DAYS: Yes HOSPICE: HOSPICE: No HOSPICE EVAL & TREAT: No LTAC: ADMIT TO LTAC: No POST DISCHARGE ORDERS: ACTIVITY ORDERS: Activity as tolerated WEIGHT BEARING STATUS: As tolerated DIET AFTER DISCHARGE: Cardiac CHECKS AFTER DISCHARGE: CHECKS AFTER DISCHARGE: Check blood press - daily, Check blood sugar, ac/hs, Weigh Yourself Daily TREATMENT/EQUIPMENT ORDERS: ADAPTIVE EQUIPMENT NEEDED: None, Front wheeled walker RESPIRATORY EQUIPMENT NEEDED: Oxygen Physical Therapy For: Evalulation/Treatment Occupational Therapy For: Evaluation/Treatment Speech Language Pathology For: Evaluation/Treatment DISCHARGE MEDICATIONS: Home Meds Active Scripts Lactobacillus Rhamnosus Gg (CULTURELLE) 1 Each Cap.sprink, 1 CAP PO BID for supplement for 30 Days, #60 CAP Prov:FAITH BEAN MD 11/29/18 Magnesium Hydroxide (MILK OF MAGNESIA) 400 Mg/5 Ml Oral.susp, 2400 MG PO PRN Q12HR PRN for CONSTIPATION for 10 Days, #10 MISC Prov:FAITH BEAN MD 08/20/18 Reported Medications Prednisone (PREDNISONE) 1 Mg Tablet, 10 MG PO DAILY for lung inflammation for 3 Days, #30 TAB 11/29/18 Nystatin (NYSTATIN) 15 Gm Powder, 15 GM TP BID for yeash underbreast and abdomina, MISC 11/29/18 Lactobacillus Acidophilus (PROBIOTIC) 1 Each Capsule, 1 EACH PO BID for while on antibiotics for 10 Days, #20 CAP 11/29/18 Amoxicillin/Potassium Clav (AMOX TR-K CLV 500-125 MG TAB) 1 Each Tablet, 1 TAB PO BID for pneumonia for 5 Days, #10 TAB 0 Refills 11/29/18 Torsemide (TORSEMIDE) 20 Mg Tablet, 40 MG PO BID for chf, TAB 11/22/18 Potassium Chloride (POTASSIUM CHLORIDE) 20 Meq Tablet.er, 40 MEQ PO DAILY for low potassium , TAB.SR 11/22/18 Guaifenesin (MUCINEX) 600 Mg Tablet.er, 1 TAB PO BID for copd, #14 TAB 11/22/18 Alprazolam (XANAX) 0.25 Mg Tablet, 0.25 MG PO PRN Q6HRS PRN for ANXIETY / AGITATION, TAB 0 Refills 3/7/19 Oxymetazoline Hcl (AFRIN) 30 Ml [place], 30 ML NS PRN Q2HR PRN for nose bleeds, SPRAY 11/22/18 Acetaminophen (TYLENOL) 325 Mg Tablet, 650 MG PO TID PRN PRN for PAIN 04/11/16 Aspirin (ASPIR 81) 81 Mg Tablet.dr, 1 TAB PO DAILY, #30 TAB 5 Refills 04/11/16 Ferrous Sulfate (IRON SUPPLEMENT) 325 Mg Tablet, 1 TAB PO DAILY, #30 TAB 10 Refills 11/10/15 Fluticasone/Salmeterol (ADVAIR 250-50 DISKUS) 1 Each Disk.w.dev, 1 PUFF IH BID, #3 INHALER 3 Refills 05/06/15 Ipratropium/Albuterol Sulfate (DUONEB 0.5-3(2.5) MG/3 ML) 3 Ml Ampul.neb, 3 ML IH Q4HRS PRN for CONGESTION 05/06/15 Pravastatin Sodium (PRAVASTATIN SODIUM) 10 Mg Tablet, 1 TAB PO QHS, #30 TAB 5 Refills 09/16/14 Carvedilol (CARVEDILOL ) 6.25 Mg Tablet, 1 TAB PO BID, #180 TAB 1 Refill 09/16/14 FAITH BEAN MD Nov 29, 2018 11:53
--- NOTE | 2018-11-29 12:33 | NUR ---
SS following up with discharge planning. Discharge orders received for [facility], ; fax [phone]. SS phoned and faxed clinical and discharge orders to [facility]. systems requirements planner, Olga Rivero, aiding to schedule transportation for return. Pt's RN notified.
--- NOTE | 2018-11-29 15:29 | NUR ---
Nursing: Report called to Sandra at [facility]. Patient assisted off of unit via wheelchair accompanied by transport. All belongings with patient.
== END 2018-11-29 15:08 | DRG 871 ==
LOC: ER 17:56 → 2 SOUTH 21:00
PROVIDERS: ADMIT Internal Medicine; ATTEND Internal Medicine
PROC: 5A09357 Assistance with Respiratory Ventilation, Less than 24 Consecutive Hours, Continuous Positive Airway Pressure (ICD-10-PCS; principal; 2018-11-21)
PROC: 5A09357 Assistance with Respiratory Ventilation, Less than 24 Consecutive Hours, Continuous Positive Airway Pressure (ICD-10-PCS; 2018-11-22)
PROC: 5A09357 Assistance with Respiratory Ventilation, Less than 24 Consecutive Hours, Continuous Positive Airway Pressure (ICD-10-PCS; 2018-11-23)
PROC: 5A09357 Assistance with Respiratory Ventilation, Less than 24 Consecutive Hours, Continuous Positive Airway Pressure (ICD-10-PCS; 2018-11-25)
PROC: 5A09357 Assistance with Respiratory Ventilation, Less than 24 Consecutive Hours, Continuous Positive Airway Pressure (ICD-10-PCS; 2018-11-26)
DX: A41.9 Sepsis, unspecified organism (principal); J96.21 Acute and chronic respiratory failure with hypoxia; E43 Unspecified severe protein-calorie malnutrition; J10.00 Influenza due to other identified influenza virus with unspecified type of pneumonia; J96.22 Acute and chronic respiratory failure with hypercapnia; I50.32 Chronic diastolic (congestive) heart failure; J44.0 Chronic obstructive pulmonary disease with (acute) lower respiratory infection; J44.1 Chronic obstructive pulmonary disease with (acute) exacerbation; J98.11 Atelectasis; N17.9 Acute kidney failure, unspecified; D64.9 Anemia, unspecified; E03.9 Hypothyroidism, unspecified; E11.9 Type 2 diabetes mellitus without complications; E78.5 Hyperlipidemia, unspecified; I11.0 Hypertensive heart disease with heart failure; I27.81 Cor pulmonale (chronic); Y95 Nosocomial condition; Z82.49 Family history of ischemic heart disease and other diseases of the circulatory system; F41.9 Anxiety disorder, unspecified; Z86.14 Personal history of Methicillin resistant Staphylococcus aureus infection; Z83.3 Family history of diabetes mellitus; Z87.891 Personal history of nicotine dependence; Z88.1 Allergy status to other antibiotic agents; Z90.49 Acquired absence of other specified parts of digestive tract; Z91.19 Patient's noncompliance with other medical treatment and regimen; Z99.81 Dependence on supplemental oxygen; M19.90 Unspecified osteoarthritis, unspecified site; Z88.8 Allergy status to other drugs, medicaments and biological substances
CPT/HCPCS: 36415; 36600; 71045; 78582; 80048; 80053; 80061; 82553; 82805; 82962; 83605; 83690; 83735; 83880; 84484; 85007; 85025; 85027; 85379; 85610; 87040; 87493; 87804; 93005; 94640; 94660; 94760; 96372; 96374; A9540; A9558; J1650; J1815; J2060; J2270; J2543; J2920; J7030; J7040; J7512; J7613; J7620; J7626; 97530; 97535; 99291-25

== ENCOUNTER → 2018-12-03 | Outpatient (CLI) | payer MEDICARE, OTHER ==
[2018-11-29 11:00] VITALS: BP 161/68
[~2018-12-03] MED LIST changes: +ALPR0.25 PO; +AMOX1TAB10 PO; +LACT1CAP19 PO; +LACT1CAP6 PO; +OXYM30SP NS; +POTA20TA82 PO; +PRED1TAB3 PO; +TORS20TA2 PO
[2018-12-03 06:58] LABS: BASO % 0 % (0-3); EOS # 0.1 x10^3/uL (0.0-0.7); EOS % 1 % (0-3); HEMATOCRIT 30.5 % (36.0-47.0); HEMOGLOBIN 9.7 g/dL (12.0-15.5); LYMPH # 1.3 x10^3/uL (1.0-4.8); LYMPH % 13 % (24-48); MEAN CORPUSCULAR HEMOGLOBIN 27 pg (25-35); MEAN CORPUSCULAR HGB CONC 32 g/dL (31-37); MEAN CORPUSCULAR VOLUME 84 fL (79-100); MONO # 0.7 x10^3/uL (0.0-1.1); MONO % 7 % (0-9); NEUT # 7.9 x10^3uL (1.8-7.7); NEUT % 79 % (31-73); PLATELET COUNT 192 x10^3/uL (140-400); RED BLOOD COUNT 3.63 x10^6/uL (3.50-5.40); RED CELL DISTRIBUTION WIDTH 15.6 % (11.5-14.5); WHITE BLOOD COUNT 10.1 x10^3/uL (4.0-11.0)
[2018-12-03 07:03] LABS: ALBUMIN 1.7 g/dL (3.4-5.0); ALBUMIN/GLOBULIN RATIO 0.4 (1.0-1.7); CALCIUM 7.8 mg/dL (8.5-10.1); CREATININE 1.1 mg/dL (0.6-1.0); GFR 47.8; POTASSIUM 3.3 mmol/L (3.5-5.1); TOTAL BILIRUBIN 0.7 mg/dL (0.2-1.0); TOTAL PROTEIN 6.1 g/dL (6.4-8.2)
== END | disposition home or self-care (01) ==
LOC: SPEC 00:14
PROVIDERS: ATTEND Internal Medicine
DX: I13.0 Hypertensive heart and chronic kidney disease with heart failure and stage 1 through stage 4 chronic kidney disease, or unspecified chronic kidney disease (principal); E11.22 Type 2 diabetes mellitus with diabetic chronic kidney disease; N18.3 Chronic kidney disease, stage 3 (moderate); I50.32 Chronic diastolic (congestive) heart failure
CPT/HCPCS: 36415; 80053; 83880; 85025

== ENCOUNTER → 2018-12-24 | Outpatient (CLI) | payer MEDICARE, OTHER ==
[2018-11-29 11:00] VITALS: BP 161/68
[2018-12-24 05:30] LABS: BASO # 0.1 x10^3/uL (0.0-0.2); BASO % 1 % (0-3); EOS # 0.2 x10^3/uL (0.0-0.7); EOS % 2 % (0-3); HEMATOCRIT 32.2 % (36.0-47.0); HEMOGLOBIN 10.4 g/dL (12.0-15.5); LYMPH # 2.8 x10^3/uL (1.0-4.8); LYMPH % 33 % (24-48); MEAN CORPUSCULAR HEMOGLOBIN 27 pg (25-35); MEAN CORPUSCULAR HGB CONC 32 g/dL (31-37); MEAN CORPUSCULAR VOLUME 85 fL (79-100); MONO # 0.7 x10^3/uL (0.0-1.1); MONO % 9 % (0-9); NEUT # 4.7 x10^3uL (1.8-7.7); NEUT % 55 % (31-73); PLATELET COUNT 215 x10^3/uL (140-400); RED BLOOD COUNT 3.81 x10^6/uL (3.50-5.40); RED CELL DISTRIBUTION WIDTH 16.8 % (11.5-14.5); WHITE BLOOD COUNT 8.5 x10^3/uL (4.0-11.0)
[2018-12-24 05:46] LABS: ALBUMIN/GLOBULIN RATIO 0.4 (1.0-1.7); CALCIUM 8.1 mg/dL (8.5-10.1); CREATININE 1.3 mg/dL (0.6-1.0); GFR 39.4; POTASSIUM 3.2 mmol/L (3.5-5.1); TOTAL BILIRUBIN 0.4 mg/dL (0.2-1.0); TOTAL PROTEIN 6.6 g/dL (6.4-8.2)
[2018-12-24 07:27] LABS: % ATYL 1 % (0-0); % BANDS 8 % (0-9); % EOS 3 % (0-5); % LYMPHS 25 % (24-48); % MONOS 8 % (0-10); % MYELOS 4 % (0-0); % SEGS 51 % (35-66)
[2018-12-24 07:34] LABS: PLT ESTIMATE ADEQUATE (ADEQUATE)
[2018-12-24 07:35] LABS: ANISOCYTOSIS SLIGHT; OVALOCYTES FEW; POLYCHROMASIA SLIGHT; TEAR DROP CELLS OCC
== END | disposition home or self-care (01) ==
LOC: SPEC 00:01
PROVIDERS: ATTEND Internal Medicine
DX: I10 Essential (primary) hypertension (principal)
CPT/HCPCS: 36415; 80053; 85007; 85025

== ENCOUNTER 2019-03-17 11:09 | Inpatient (IN) | payer MEDICARE, OTHER ==
[~2019-03-17] VITALS: Ht 154.9 cm; Wt 87.1 kg
[~2019-03-17 11:09] MED LIST changes: +MONT10TA49 PO; -MONT10TA9 PO
--- NOTE | 2019-03-17 11:35 | PHYS DOC ---
Past Medical History Past Medical History: Anemia, COPD, High Cholesterol, Hypertension Additional Past Medical Histor: neuropathy, angina, home ox 3L NC, Past Surgical History: Cholecystectomy Alcohol Use: None Drug Use: None Adult General Chief Complaint Chief Complaint: SHORTNESS OF BREATH HPI HPI Patient is an 79 y/o WF who presents to the ED for evaluation. EMS reports that they were called to the patient's nursing facility, because of shortness of breath with the patient was reported to have an oxygen saturation in the 70s. EMS reported that the patient was having an oxygen saturation in the 80s upon their arrival, which improved to the upper 90s on a nonrebreather. The patient was placed on her home 3 L nasal cannula, which she uses chronically, upon arrival in the emergency department and is maintaining her oxygen saturation in the mid 90s. The patient herself DENIES any symptoms at this time. She states she is always short of breath now than baseline mild cough which is baseline for her. She denies any pain, including any chest pain. She did have an echo in August, which showed an EF of 55-60%. She is not aware nausea, vomiting, diaphoresis, or any productive cough different than her baseline. There are no alleviating or exacerbating factors to her symptoms. However, she states she did not go into protestant this morning, she did not feel up to it, but otherwise is not having any other specific symptoms at this time. Review of Systems Review of Systems Constitutional: Denies fever or chills [] Eyes: Denies change in visual acuity, redness, or eye pain [] HENT: Denies nasal congestion or sore throat [] Respiratory: Denies change in baseline cough or shortness of breath [] Cardiovascular: No additional information not addressed in HPI [] GI: Denies abdominal pain, nausea, vomiting, bloody stools or diarrhea [] : Denies dysuria or hematuria [] Musculoskeletal: Denies back pain or joint pain [] Integument: Denies rash or skin lesions [] Neurologic: Denies headache, focal weakness or sensory changes [] Endocrine: Denies polyuria or polydipsia [] All other systems were reviewed and found to be within normal limits, except as documented in this note. Current Medications Current Medications Current Medications Medications (Trade) Dose Ordered Sig/Eva Start Time Stop Time Status Last Admin Dose Admin Albuterol/ Ipratropium (Duoneb) 3 ml 1X ONCE 03/17/19 11:45 03/17/19 11:46 DC 03/17/19 11:51 3 ML Allergies Allergies Allergies Coded Allergies Type Severity Reaction Last Updated Verified doxycycline Allergy Intermediate Rash 02/16/18 Yes I S O L A T I O N *CONTACT* Allergy Unknown 12/12/16 Yes Physical Exam Physical Exam PHYSICAL EXAM: CONSTITUTIONAL: Well developed, well nourished HEAD: normocephalic, atraumatic EENT: PERRL, EOMI. Conjunctivae normal color, sclerae non-icteric; moist mucous membranes. NECK: Supple, non-tender; no meningismus. LUNGS: There are mildly diminished breath sounds globally, with some scattered crackles, rhonchi bases bilaterally. HEART: Regular rate and rhythm, no murmur CHEST: No deformity; non-tender ABDOMEN: The abdomen is soft, and non-tender, no masses or bruits. EXTREM: Normal ROM; no deformity, no calf tenderness. Normal pulses palpable in all extremities. There is 2+ pitting bilateral pedal edema. SKIN: No rash; no diaphoresis NEURO: Alert; normal speech and cognition; CN's grossly intact; strength grossly intact without focal deficit. BACK: No CVA TTP. Current Patient Data Vital Signs Vital Signs Date Time Temp Pulse Resp B/P (MAP) Pulse Ox O2 Delivery O2 Flow Rate FiO2 03/17/19 13:22 74 18 133/68 (89) 96 Room Air 03/17/19 11:54 3.0 03/17/19 11:17 98.2 98.2 Lab Values Laboratory Tests Test 03/17/19 11:15 03/17/19 12:05 03/17/19 12:37 White Blood Count 8.5 x10^3/uL (4.0-11.0) Red Blood Count 4.72 x10^6/uL (3.50-5.40) Hemoglobin 13.3 g/dL (12.0-15.5) Hematocrit 40.6 % (36.0-47.0) Mean Corpuscular Volume 86 fL (79-100) Mean Corpuscular Hemoglobin 28 pg (25-35) Mean Corpuscular Hemoglobin Concent 33 g/dL (31-37) Red Cell Distribution Width 14.8 % (11.5-14.5) H Platelet Count 215 x10^3/uL (140-400) Neutrophils (%) (Auto) 71 % (31-73) Lymphocytes (%) (Auto) 18 % (24-48) L Monocytes (%) (Auto) 6 % (0-9) Eosinophils (%) (Auto) 4 % (0-3) H Basophils (%) (Auto) 1 % (0-3) Neutrophils # (Auto) 6.1 x10^3uL (1.8-7.7) Lymphocytes # (Auto) 1.5 x10^3/uL (1.0-4.8) Monocytes # (Auto) 0.5 x10^3/uL (0.0-1.1) Eosinophils # (Auto) 0.3 x10^3/uL (0.0-0.7) Basophils # (Auto) 0.1 x10^3/uL (0.0-0.2) Lactic Acid Level 2.4 mmol/L (0.4-2.0) H Troponin I Quantitative < 0.017 ng/mL (0.000-0.055) FA-Dbe-E-Type Natriuretic Peptide 300 pg/mL (0-449) O2 Saturation 95 % (92-99) Arterial Blood pH 7.44 (7.35-7.45) Arterial Blood pCO2 at Patient Temp 50 mmHg (35-46) H Arterial Blood pO2 at Patient Temp 83 mmHg (65-108) Arterial Blood HCO3 33 mmol/L (21-28) H Arterial Blood Base Excess 8 mmol/L (-3-3) H FiO2 40 Sodium Level 142 mmol/L (136-145) Potassium Level 4.2 mmol/L (3.5-5.1) Chloride Level 102 mmol/L (98-107) Carbon Dioxide Level 33 mmol/L (21-32) H Anion Gap 7 (6-14) Blood Urea Nitrogen 37 mg/dL (7-20) H Creatinine 1.4 mg/dL (0.6-1.0) H Estimated GFR (Cockcroft-Gault) 36.1 BUN/Creatinine Ratio 26 (6-20) H Glucose Level 184 mg/dL (70-99) H Calcium Level 8.6 mg/dL (8.5-10.1) Total Bilirubin 0.5 mg/dL (0.2-1.0) Aspartate Amino Transferase (AST) 39 U/L (15-37) H Alanine Aminotransferase (ALT) 30 U/L (14-59) Alkaline Phosphatase 85 U/L (46-116) Total Protein 7.1 g/dL (6.4-8.2) Albumin 2.4 g/dL (3.4-5.0) L Albumin/Globulin Ratio 0.5 (1.0-1.7) L Laboratory Tests 03/17/19 11:15 Laboratory Tests 03/17/19 12:37 EKG EKG [Normal sinus rhythm a rate of 73 beats for minute, normal axis, normal intervals, there are no acute ischemic ST/T changes.] Radiology/Procedures Radiology/Procedures [PROCEDURE: CHEST PA & LATERAL EXAM: CHEST 2 VIEWS. HISTORY: Shortness of breath. COMPARISON: 02/22/2019. FINDINGS: Frontal and lateral views of the chest are obtained. Blunting of the right costophrenic angle and right basilar volume loss are chronic. Airspace opacities and parenchymal scarring in the right greater than left bases have been present at least since CT of 06/03/2018. A spiculated nodule in the right upper lobe on prior CT is not well appreciated currently. There are no clear superimposed acute infiltrates. Calcified mediastinal lymph nodes are likely secondary to old granulomatous disease. There are emphysematous changes in the apices. There is no pneumothorax or clear pleural effusion. The heart is mildly enlarged. There are atherosclerotic calcifications of the aorta. IMPRESSION: 1. Chronic scarring in the right greater than left bases superimposed on emphysema. No clear acute superimposed infiltrate, though sensitivity is low for infection superimposed on the chronic right basilar process. 2. Recommend ongoing CT follow-up of a right upper lobe nodule as per those recommendations. 3. Mild cardiomegaly. ] Course & Med Decision Making Course & Med Decision Making Pertinent Labs and Imaging studies reviewed. (See chart for details) []The patient's condition remained stable. She did get somewhat hypoxic when we sat her up to see if she would be able to ambulate, and thus I think she warrants hospitalization for further management and evaluation of her hypoxia. She does have a history of COPD, but her edema seems to suggest possible CHF etiology. Dragon Disclaimer Dragon Disclaimer This electronic medical record was generated, in whole or in part, using a voice recognition dictation system. Departure Departure Impression: Primary Impression: Dyspnea Disposition: ADMITTED INPATIENT Admitting Physician: ALDA Condition: STABLE Referrals: AMISHA HARDY MD (PCP) NATASHA LIN MD Mar 17, 2019 11:35
[2019-03-17 11:43] LABS: BASO # 0.1 x10^3/uL (0.0-0.2); BASO % 1 % (0-3); EOS # 0.3 x10^3/uL (0.0-0.7); EOS % 4 % (0-3); HEMATOCRIT 40.6 % (36.0-47.0); HEMOGLOBIN 13.3 g/dL (12.0-15.5); LYMPH # 1.5 x10^3/uL (1.0-4.8); LYMPH % 18 % (24-48); MEAN CORPUSCULAR HEMOGLOBIN 28 pg (25-35); MEAN CORPUSCULAR HGB CONC 33 g/dL (31-37); MEAN CORPUSCULAR VOLUME 86 fL (79-100); MONO # 0.5 x10^3/uL (0.0-1.1); MONO % 6 % (0-9); NEUT # 6.1 x10^3uL (1.8-7.7); NEUT % 71 % (31-73); PLATELET COUNT 215 x10^3/uL (140-400); RED BLOOD COUNT 4.72 x10^6/uL (3.50-5.40); RED CELL DISTRIBUTION WIDTH 14.8 % (11.5-14.5); WHITE BLOOD COUNT 8.5 x10^3/uL (4.0-11.0)
[2019-03-17] MEDS ORDERED: IPRATRPIUM/ALBUTEROL 0.5/2.5MG 3 ML NEBU. NEB ONE (11:45)
[2019-03-17 12:13] LABS: BASE EXCESS ABG 8 mmol/L (-3-3); HCO3 ABG 33 mmol/L (21-28); PCO2 ABG 50 mmHg (35-46); PO2 ABG 83 mmHg (65-108); SAT O2 ABG 95 % (92-99)
[2019-03-17 12:16] LABS: FIO2 ABG 40
--- NOTE | 2019-03-17 13:00 | EKG ---
[facility] [address] [place] [address] Test Date: 2019-03-17 Test Time: 11:11:32 Pat Name: ALKA CASTILLO Department: Room: Gender: F [employer] Associate: : 1940 Requested By: NATASHA LIN Order Number: [id number] Reading MD: Measurements Intervals Horatio Rate: 73 P: [place]: QRS: 13 QRSD: 76 T: 59 QT: 376 QTc: 418 Interpretive Statements IRREGULAR RHYTHM, NO P-WAVE FOUND NO SPECIFIC ECG ABNORMALITIES RI6.01 Unconfirmed report No previous ECG available for comparison
[2019-03-17 13:09] LABS: CALCIUM 8.6 mg/dL (8.5-10.1); CREATININE 1.4 mg/dL (0.6-1.0); GFR 36.1; POTASSIUM 4.2 mmol/L (3.5-5.1)
--- NOTE | 2019-03-17 13:09 | RAD ---
EXAM: CHEST 2 VIEWS. HISTORY: Shortness of breath. COMPARISON: 02/22/2019. FINDINGS: Frontal and lateral views of the chest are obtained. Blunting of the right costophrenic angle and right basilar volume loss are chronic. Airspace opacities and parenchymal scarring in the right greater than left bases have been present at least since CT of 06/03/2018. A spiculated nodule in the right upper lobe on prior CT is not well appreciated currently. There are no clear superimposed acute infiltrates. Calcified mediastinal lymph nodes are likely secondary to old granulomatous disease. There are emphysematous changes in the apices. There is no pneumothorax or clear pleural effusion. The heart is mildly enlarged. There are atherosclerotic calcifications of the aorta. IMPRESSION: 1. Chronic scarring in the right greater than left bases superimposed on emphysema. No clear acute superimposed infiltrate, though sensitivity is low for infection superimposed on the chronic right basilar process. 2. Recommend ongoing CT follow-up of a right upper lobe nodule as per those recommendations. 3. Mild cardiomegaly. Electronically signed by: Delisa Chapin MD (03/17/2019 1:06 PM) [facility]
[2019-03-17 13:24] LABS: ALBUMIN 2.4 g/dL (3.4-5.0); ALBUMIN/GLOBULIN RATIO 0.5 (1.0-1.7); TOTAL BILIRUBIN 0.5 mg/dL (0.2-1.0); TOTAL PROTEIN 7.1 g/dL (6.4-8.2)
--- NOTE | 2019-03-17 15:08 | PDOC1 ---
History and Physical Date of Admission Date of Admission DATE: 03/17/19 TIME: 14:51 Identification/Chief Complaint Chief Complaint Shortness of breath Source Source: Patient History of Present Illness History of Present Illness Ms Schwartz is an 78-year-old female w/PMHx CHF and ILD/COPD with multiple admissions to the hospital for the same, the most recent 2 months ago who returns from SNF with worsening shortness of breath with cough. Then she was noted with worsening hypoxia She received 2 breathing treatments prior to arrival which did not help. O2 sat 85 on arrival even on her 3L. At SNF normally on 2L of NCO2, but has been up to 3L on a prior hospital stay. RR mildly increased on 4 L by nasal cannula, no leukocytosis, HR normal, afebrile. EKG obtained in ED shows a regular rhythm with probable p waves before every qrs likely sinus though variable baseline present with a regular rate. ST segments are congruent. Chest x-ray - bilateral pleural plaques are apparent to me. She is very rotated on image making this a difficult read for me. Blood work obtained which shows mild anemia. ProBNP is not elevated. Troponin negative. Past Medical History Cardiovascular: HTN Pulmonary: COPD CENTRAL NERVOUS SYSTEM: Periperal neuropathy GI: No pertinent hx Heme/Onc: Anemia NOS Hepatobiliary: No pertinent hx Psych: No pertinent hx Musculoskeletal: Osteoarthritis Rheumatologic: No pertinent hx Infectious disease: No pertinent hx Renal/: No pertinent hx Past Surgical History Past Surgical History: Cholecystectomy Family History Family History: Coronary Artery Disease Family History: Parent Social History ALCOHOL: none Drugs: None Current Medications Current Medications Current Medications Albuterol/ Ipratropium (Duoneb) 3 ml 1X ONCE NEB Last administered on 03/17/19at 11:51; Start 03/17/19 at 11:45; Stop 03/17/19 at 11:46; Status DC Active Scripts Active Culturelle (Lactobacillus Rhamnosus Gg) 1 Each Cap.sprink 1 Cap PO BID 30 Days Milk Of Magnesia (Magnesium Hydroxide) 400 Mg/5 Ml Oral.susp 2,400 Mg PO PRN Q12HR PRN 10 Days Reported Prednisone 1 Mg Tablet 10 Mg PO DAILY 3 Days Nystatin 15 Gm Powder 15 Gm TP BID Probiotic (Lactobacillus Acidophilus) 1 Each Capsule 1 Each PO BID 10 Days Amox Tr-K Clv 500-125 Mg Tab (Amoxicillin/Potassium Clav) 1 Each Tablet 1 Tab PO BID 5 Days Torsemide 20 Mg Tablet 40 Mg PO BID Potassium Chloride 20 Meq Tablet.er 40 Meq PO DAILY Mucinex (Guaifenesin) 600 Mg Tablet.er 1 Tab PO BID Xanax (Alprazolam) 0.25 Mg Tablet 0.25 Mg PO PRN Q6HRS PRN Afrin (Oxymetazoline Hcl) 30 Ml [place] 30 Ml NS PRN Q2HR PRN Tylenol (Acetaminophen) 325 Mg Tablet 650 Mg PO TID PRN PRN Aspir 81 (Aspirin) 81 Mg Tablet.dr 1 Tab PO DAILY Iron Supplement (Ferrous Sulfate) 325 Mg Tablet 1 Tab PO DAILY Advair 250-50 Diskus (Fluticasone/Salmeterol) 1 Each Disk.w.dev 1 Puff IH BID Duoneb 0.5-3(2.5) Mg/3 Ml (Albuterol/Ipratropium) 3 Ml Ampul.neb 3 Ml IH Q4HRS PRN Pravastatin Sodium 10 Mg Tablet 1 Tab PO QHS Carvedilol (Carvedilol) 6.25 Mg Tablet 1 Tab PO BID Allergies Allergies: Coded Allergies: doxycycline (Verified Allergy, Intermediate, Rash, 02/16/18) rash this admit suspected from doxycycline I S O L A T I O N *CONTACT* (Verified Allergy, Unknown, 12/12/16) +MRSA nasal screen 12/09/16 ROS General: YES: Fatigue, Malaise; No: Chills, Night Sweats, Appetite, Other PSYCHOLOGICAL ROS: No: Anxiety, Behavioral Disorder, Concentration difficultie, Decreased libido, Depression, Disorientation, Hallucinations, Hostility, Irritablity, Memory difficulties, Mood Swings, Obsessive thoughts, Physical abus e, Sexual abuse, Sleep disturbances, Suicidal ideation, Other Eyes: No Blurry vision, No Decreased vision, No Double vision, No Dry eyes, No Excessive tearing, No Eye Pain, No Itchy Eyes, No Loss of vision, No Photophobia, No Scotomata, No Uses contacts, No Uses glasses, No Other HEENT: No: Heacaches, Visual Changes, Hearing change, Nasal congestion, Nasal discharge, Oral lesions, Sinus pain, Sore Throat, Epistaxis, Sneezing, Snoring, Tinnitus, Vertigo, Vocal changes, Other ALLERGY AND IMMUNOLOGY: No: Hives, Insect Bite Sensitivity, Itchy/Watery Eyes, Nasal Congestion, Post Nasal Drip, Seasonal Allergies, Other Hematological and Lymphatic: No: Bleeding Problems, Blood Clots, Blood Transfusions, Brusing, Night Sweats, Pallor, Swollen Lymph Nodes, Other ENDOCRINE: No: Breast Changes, Galactorrhea, Hair Pattern Changes, Hot Flashes, Malaise/lethargy, Mood Swings, Palpitations, Polydipsia/polyuria, Skin Changes, Temperature Intolerance, Unexpected Weight Changes, Other Breast: No New/Changing Breast Lumps, No Nipple changes, No Nipple discharge, No Other Respiratory: YES: Cough, Shortness of breath, SOB with excertion, Tachypnea, Wheezing; No: Hemoptysis, Orthopnea, Pleuritic Pain, Sputum Changes, Stridor, Other Cardiovascular: No Chest Pain, No Palpitations, No Orthopnea, No Paroxysmal Noc. Dyspnea, No Edema, No Lt Headedness, No Other Gastrointestinal: No Nausea, No Vomiting, No Abdominal Pain, No Diarrhea, No Constipation, No Melena, No Hematochezia, No Other Genitourinary: No Dysuria, No Frequency, No Incontinence, No Hematuria, No Retention, No Discharge, No Urgency, No Pain, No Flank Pain, No Other, No , No , No , No , No , No , No Musculoskeletal: No Gait Disturbance, No Joint Pain, No Joint Stiffness, No Joint Swelling, No Muscle Pain, No Muscular Weakness, No Pain In:, No Swelling In:, No Other Neurological: No Behavorial Changes, No Bowel/Bladder ControlChng, No Confusion, No Dizziness, No Gait Disturbance, No Headaches, No Impaired Coord/balance, No Memory Loss, No Numbness/Tingling, No Seizures, No Speech Problems, No Tremors, No Visual Changes, No Weakness, No Other Skin: No Dry Skin, No Eczema, No Hair Changes, No Lumps, No Mole Changes, No Mottling, No Nail Changes, No Pruritus, No Rash, No Skin Lesion Changes, No Other, No Acne Physical Exam General: Alert, Cooperative, No acute distress HEENT: Atraumatic, PERRLA, EOMI, Mucous membr. moist/pink Lungs: Other (Crackles diffusely and wheezes) Heart: S1S2, RRR, no gallops, no murmurs Abdomen: Normal bowel sounds, Soft, No tenderness, No hepatosplenomegaly, No masses Rectal Exam: not examined Extremities: No clubbing, No cyanosis, Normal pulses, No tenderness/swelling, Other (2+ edema) Skin: No rashes, No breakdown, No significant lesion Neuro: Normal speech, Strength at 5/5 X4 ext, Normal tone, Sensation intact, Cranial nerves 3-12 NL, Reflexes 2+ Psych/Mental Status: Mental status NL, Mood NL Vitals Vitals Vital Signs Date Time Temp Pulse Resp B/P (MAP) Pulse Ox O2 Delivery O2 Flow Rate FiO2 03/17/19 13:22 74 18 133/68 (89) 96 Room Air 03/17/19 11:54 3.0 03/17/19 11:17 98.2 98.2 Labs Labs Laboratory Tests Test 03/17/19 11:15 03/17/19 12:05 03/17/19 12:37 White Blood Count 8.5 x10^3/uL (4.0-11.0) Red Blood Count 4.72 x10^6/uL (3.50-5.40) Hemoglobin 13.3 g/dL (12.0-15.5) Hematocrit 40.6 % (36.0-47.0) Mean Corpuscular Volume 86 fL (79-100) Mean Corpuscular Hemoglobin 28 pg (25-35) Mean Corpuscular Hemoglobin Concent 33 g/dL (31-37) Red Cell Distribution Width 14.8 % (11.5-14.5) Platelet Count 215 x10^3/uL (140-400) Neutrophils (%) (Auto) 71 % (31-73) Lymphocytes (%) (Auto) 18 % (24-48) Monocytes (%) (Auto) 6 % (0-9) Eosinophils (%) (Auto) 4 % (0-3) Basophils (%) (Auto) 1 % (0-3) Neutrophils # (Auto) 6.1 x10^3uL (1.8-7.7) Lymphocytes # (Auto) 1.5 x10^3/uL (1.0-4.8) Monocytes # (Auto) 0.5 x10^3/uL (0.0-1.1) Eosinophils # (Auto) 0.3 x10^3/uL (0.0-0.7) Basophils # (Auto) 0.1 x10^3/uL (0.0-0.2) Lactic Acid Level 2.4 mmol/L (0.4-2.0) Troponin I Quantitative < 0.017 ng/mL (0.000-0.055) ZR-Bqf-X-Type Natriuretic Peptide 300 pg/mL (0-449) O2 Saturation 95 % (92-99) Arterial Blood pH 7.44 (7.35-7.45) Arterial Blood pCO2 at Patient Temp 50 mmHg (35-46) Arterial Blood pO2 at Patient Temp 83 mmHg (65-108) Arterial Blood HCO3 33 mmol/L (21-28) Arterial Blood Base Excess 8 mmol/L (-3-3) FiO2 40 Sodium Level 142 mmol/L (136-145) Potassium Level 4.2 mmol/L (3.5-5.1) Chloride Level 102 mmol/L (98-107) Carbon Dioxide Level 33 mmol/L (21-32) Anion Gap 7 (6-14) Blood Urea Nitrogen 37 mg/dL (7-20) Creatinine 1.4 mg/dL (0.6-1.0) Estimated GFR (Cockcroft-Gault) 36.1 BUN/Creatinine Ratio 26 (6-20) Glucose Level 184 mg/dL (70-99) Calcium Level 8.6 mg/dL (8.5-10.1) Total Bilirubin 0.5 mg/dL (0.2-1.0) Aspartate Amino Transf (AST/SGOT) 39 U/L (15-37) Alanine Aminotransferase (ALT/SGPT) 30 U/L (14-59) Alkaline Phosphatase 85 U/L (46-116) Total Protein 7.1 g/dL (6.4-8.2) Albumin 2.4 g/dL (3.4-5.0) Albumin/Globulin Ratio 0.5 (1.0-1.7) Laboratory Tests Test 03/17/19 11:15 03/17/19 12:05 03/17/19 12:37 White Blood Count 8.5 x10^3/uL (4.0-11.0) Red Blood Count 4.72 x10^6/uL (3.50-5.40) Hemoglobin 13.3 g/dL (12.0-15.5) Hematocrit 40.6 % (36.0-47.0) Mean Corpuscular Volume 86 fL (79-100) Mean Corpuscular Hemoglobin 28 pg (25-35) Mean Corpuscular Hemoglobin Concent 33 g/dL (31-37) Red Cell Distribution Width 14.8 % (11.5-14.5) Platelet Count 215 x10^3/uL (140-400) Neutrophils (%) (Auto) 71 % (31-73) Lymphocytes (%) (Auto) 18 % (24-48) Monocytes (%) (Auto) 6 % (0-9) Eosinophils (%) (Auto) 4 % (0-3) Basophils (%) (Auto) 1 % (0-3) Neutrophils # (Auto) 6.1 x10^3uL (1.8-7.7) Lymphocytes # (Auto) 1.5 x10^3/uL (1.0-4.8) Monocytes # (Auto) 0.5 x10^3/uL (0.0-1.1) Eosinophils # (Auto) 0.3 x10^3/uL (0.0-0.7) Basophils # (Auto) 0.1 x10^3/uL (0.0-0.2) Lactic Acid Level 2.4 mmol/L (0.4-2.0) Troponin I Quantitative < 0.017 ng/mL (0.000-0.055) CA-Qqt-Y-Type Natriuretic Peptide 300 pg/mL (0-449) O2 Saturation 95 % (92-99) Arterial Blood pH 7.44 (7.35-7.45) Arterial Blood pCO2 at Patient Temp 50 mmHg (35-46) Arterial Blood pO2 at Patient Temp 83 mmHg (65-108) Arterial Blood HCO3 33 mmol/L (21-28) Arterial Blood Base Excess 8 mmol/L (-3-3) FiO2 40 Sodium Level 142 mmol/L (136-145) Potassium Level 4.2 mmol/L (3.5-5.1) Chloride Level 102 mmol/L (98-107) Carbon Dioxide Level 33 mmol/L (21-32) Anion Gap 7 (6-14) Blood Urea Nitrogen 37 mg/dL (7-20) Creatinine 1.4 mg/dL (0.6-1.0) Estimated GFR (Cockcroft-Gault) 36.1 BUN/Creatinine Ratio 26 (6-20) Glucose Level 184 mg/dL (70-99) Calcium Level 8.6 mg/dL (8.5-10.1) Total Bilirubin 0.5 mg/dL (0.2-1.0) Aspartate Amino Transf (AST/SGOT) 39 U/L (15-37) Alanine Aminotransferase (ALT/SGPT) 30 U/L (14-59) Alkaline Phosphatase 85 U/L (46-116) Total Protein 7.1 g/dL (6.4-8.2) Albumin 2.4 g/dL (3.4-5.0) Albumin/Globulin Ratio 0.5 (1.0-1.7) Images Images CXR - 1. Chronic scarring in the right greater than left bases superimposed on emphysema. No clear acute superimposed infiltrate, though sensitivity is low for infection superimposed on the chronic right basilar process. 2. Recommend ongoing CT follow-up of a right upper lobe nodule as per those recommendations. 3. Mild cardiomegaly. [CTPA 05/2018 - 1. No CT evidence of central pulmonary emboli. 2. Emphysema with pleural-parenchymal scarring 3. 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 4. Bibasilar bronchiectasis, worse on the right, with moderate associated right lower lobe infiltrate suggesting pneumonia. 5. Probable hepatic cirrhosis.] VTE Prophylaxis Ordered VTE Prophylaxis Devices: No VTE Pharmacological Prophylaxi: Yes Assessment/Plan Assessment/Plan A/P: [id number]-qr-aafoqfd respiratory failure related to acute exacerbation of chronic obstructive pulmonary disease and probably xujjq-mw-rvaoldx cor pulmonale. She does have increasing ankle edema and shortness of breath. Nebs, pulmicort. consu lt pulm Abnormal chest x-ray, but appears to be unchanged from previous films. She has parenchymal scarring bilaterally along with left lower lobe atelectasis - Clinically, less likely pneumonia, COPD is likely Lung nodule - needs f/u CT chest per radiology recommendations. Will consult pulm Veygepse-vz-uxihlj protein-calorie malnutrition - has been eating every meal at [facility] Hypothyroidism with mildly increased TSH level > 6 previously, will monitor Chronic Diastolic CHF - improved previously with some gentle diuresis, will cont this though her BNP leads me to believe if she is having CHF it is mild or non- existent at this time. Lower extremity edema - more likely hypoalbumin or lymphedema related than CHF REY - Cr 1.1 last admission, now 1.4. Likely this is vasomotor given her decreased PO intake with her shortness of breath. Will monitor FEN - Cardiac diet PPX - lovenox FULL CODE Inpatient for hypoxic respiratory failure likely multifactorial, will need at least 2 midnights in house KAYE LANDA MD Mar 17, 2019 15:07
[2019-03-17] MEDS ORDERED: NYST100054 PO (16:51)
[2019-03-17] MEDS ORDERED: IPRA3AMP29 NEB (16:51)
[2019-03-17] MEDS ORDERED: ACETAMINOPHEN 325 MG TABLET. PO PRN (17:00)
[2019-03-17] MEDS ORDERED: ENOXAPARIN 30 MG/0.3 ML SYRINGE. SQ SCH (17:00)
[2019-03-17] MEDS ORDERED: ALBUTEROL SULFATE 2.5 MG/3 ML NEBU. NEB PRN (17:00)
[2019-03-17] MEDS ORDERED: MAGNESIUM HYDROXIDE 2,400 MG/30 ML ORAL.SUSP. PO PRN (17:00)
[2019-03-17] MEDS: methylPREDNISolone SOD SUCC PF 40 MG/ML VIAL. IV SCH ×2 (17:55→23:03)
[2019-03-17] MEDS: CARVEDILOL 6.25 MG TABLET. PO SCH (17:56)
[2019-03-17] MEDS: ALBUTEROL SULFATE 2.5 MG/3 ML NEBU. NEB SCH (20:55)
[2019-03-17] MEDS: BUDESONIDE 0.5 MG/2 ML NEBU. NEB SCH (20:55)
[2019-03-17] MEDS ORDERED: NON FORMULARY ITEM (Lactobacillus Acidophilus (Probiotic) 1 EACH) PO SCH (21:00)
[2019-03-17 23:00] VITALS: BP 134/68
[2019-03-17] MEDS: ATORVASTATIN CALCIUM 10 MG TABLET. PO SCH (23:03)
[2019-03-17] MEDS: LACTOBACILLUS RHAMNOSUS GG 1 CAPSULE. PO SCH (23:03)
[2019-03-17] MEDS: NYSTATIN TOPICAL POWDER 15GM BOTTLE. TP SCH (23:03)
[2019-03-18 03:00] VITALS: BP 139/55
[2019-03-18] MEDS: methylPREDNISolone SOD SUCC PF 40 MG/ML VIAL. IV SCH ×4 (06:00→20:44)
[2019-03-18 07:00] VITALS: BP 153/75
[2019-03-18] MEDS: BUDESONIDE 0.5 MG/2 ML NEBU. NEB SCH ×2 (07:51→20:22)
[2019-03-18] MEDS: ALBUTEROL SULFATE 2.5 MG/3 ML NEBU. NEB SCH ×4 (07:51→20:22)
[2019-03-18 08:19] LABS: ALBUMIN 2.3 g/dL (3.4-5.0); CALCIUM 8.4 mg/dL (8.5-10.1); CREATININE 1.2 mg/dL (0.6-1.0); GFR 43.1; PHOSPHORUS 3.6 mg/dL (2.6-4.7); POTASSIUM 4.2 mmol/L (3.5-5.1)
[2019-03-18] MEDS: CARVEDILOL 6.25 MG TABLET. PO SCH ×2 (09:29→18:43)
[2019-03-18] MEDS: POTASSIUM CHLORIDE 20 MEQ TABLET.ER. PO SCH (09:29)
[2019-03-18] MEDS: LACTOBACILLUS RHAMNOSUS GG 1 CAPSULE. PO SCH ×2 (09:29→20:44)
[2019-03-18] MEDS: ASPIRIN ENTERIC COATED 81 MG TABLET.DR. PO SCH (09:30)
[2019-03-18] MEDS: NYSTATIN TOPICAL POWDER 15GM BOTTLE. TP SCH ×2 (09:31→20:47)
--- NOTE | 2019-03-18 09:34 | NUR ---
IP: Pt has been mrsa + since 2017 with most recent on 08/17/18. Pt to be in contact precautions until there are 2 negative screens 7 days apart.
--- NOTE | 2019-03-18 10:44 | PDOC ---
[employer] PROGRESS NOTE Chief Complaint Chief Complaint Resp fail COPD Lung nodules REY CHF History of: Anemia, COPD, High Cholesterol, Hypertension neuropathy, angina, home ox 3L NC, Cholecystectomy History of Present Illness History of Present Illness Pt seen and examined DW RN Pt is A&O Vitals Vitals Vital Signs Date Time Temp Pulse Resp B/P (MAP) Pulse Ox O2 Delivery O2 Flow Rate FiO2 03/18/19 09:29 82 139/55 03/18/19 07:51 95 Nasal Cannula 3.0 03/18/19 03:00 97.9 18 97.9 Physical Exam General: Alert, Cooperative, No acute distress Heart: Regular rate, Normal S1 Lungs: Crackles, Other Abdomen: Normal bowel sounds, Soft, No tenderness, No hepatosplenomegaly, No masses Extremities: No clubbing, No cyanosis, Normal pulses, No tenderness/swelling, Other (2+ edema) Skin: No rashes, No breakdown, No significant lesion Labs Labs: Laboratory Tests Test 03/17/19 11:15 03/17/19 12:05 03/17/19 12:37 03/17/19 15:22 White Blood Count 8.5 x10^3/uL (4.0-11.0) Red Blood Count 4.72 x10^6/uL (3.50-5.40) Hemoglobin 13.3 g/dL (12.0-15.5) Hematocrit 40.6 % (36.0-47.0) Mean Corpuscular Volume 86 fL (79-100) Mean Corpuscular Hemoglobin 28 pg (25-35) Mean Corpuscular Hemoglobin Concent 33 g/dL (31-37) Red Cell Distribution Width 14.8 % (11.5-14.5) Platelet Count 215 x10^3/uL (140-400) Neutrophils (%) (Auto) 71 % (31-73) Lymphocytes (%) (Auto) 18 % (24-48) Monocytes (%) (Auto) 6 % (0-9) Eosinophils (%) (Auto) 4 % (0-3) Basophils (%) (Auto) 1 % (0-3) Neutrophils # (Auto) 6.1 x10^3uL (1.8-7.7) Lymphocytes # (Auto) 1.5 x10^3/uL (1.0-4.8) Monocytes # (Auto) 0.5 x10^3/uL (0.0-1.1) Eosinophils # (Auto) 0.3 x10^3/uL (0.0-0.7) Basophils # (Auto) 0.1 x10^3/uL (0.0-0.2) Lactic Acid Level 2.4 mmol/L (0.4-2.0) 2.6 mmol/L (0.4-2.0) Troponin I Quantitative < 0.017 ng/mL (0.000-0.055) RA-Mpy-A-Type Natriuretic Peptide 300 pg/mL (0-449) O2 Saturation 95 % (92-99) Arterial Blood pH 7.44 (7.35-7.45) Arterial Blood pCO2 at Patient Temp 50 mmHg (35-46) Arterial Blood pO2 at Patient Temp 83 mmHg (65-108) Arterial Blood HCO3 33 mmol/L (21-28) Arterial Blood Base Excess 8 mmol/L (-3-3) FiO2 40 Sodium Level 142 mmol/L (136-145) Potassium Level 4.2 mmol/L (3.5-5.1) Chloride Level 102 mmol/L (98-107) Carbon Dioxide Level 33 mmol/L (21-32) Anion Gap 7 (6-14) Blood Urea Nitrogen 37 mg/dL (7-20) Creatinine 1.4 mg/dL (0.6-1.0) Estimated GFR (Cockcroft-Gault) 36.1 BUN/Creatinine Ratio 26 (6-20) Glucose Level 184 mg/dL (70-99) Calcium Level 8.6 mg/dL (8.5-10.1) Total Bilirubin 0.5 mg/dL (0.2-1.0) Aspartate Amino Transf (AST/SGOT) 39 U/L (15-37) Alanine Aminotransferase (ALT/SGPT) 30 U/L (14-59) Alkaline Phosphatase 85 U/L (46-116) Total Protein 7.1 g/dL (6.4-8.2) Albumin 2.4 g/dL (3.4-5.0) Albumin/Globulin Ratio 0.5 (1.0-1.7) Thyroid Stimulating Hormone (TSH) 3.218 uIU/mL (0.358-3.74) Test 03/18/19 07:45 Sodium Level 141 mmol/L (136-145) Potassium Level 4.2 mmol/L (3.5-5.1) Chloride Level 104 mmol/L (98-107) Carbon Dioxide Level 31 mmol/L (21-32) Anion Gap 6 (6-14) Blood Urea Nitrogen 36 mg/dL (7-20) Creatinine 1.2 mg/dL (0.6-1.0) Estimated GFR (Cockcroft-Gault) 43.1 Glucose Level 278 mg/dL (70-99) Calcium Level 8.4 mg/dL (8.5-10.1) Phosphorus Level 3.6 mg/dL (2.6-4.7) Albumin 2.3 g/dL (3.4-5.0) Review of Systems Review of Systems [place] Co weakness Assessment and Plan Assessmemt and Plan Resp fail COPD Lung nodules REY CHF History of: Anemia, COPD, High Cholesterol, Hypertension neuropathy, angina, home ox 3L NC, Cholecystectomy Plan O2 Nebs Consult pulm PTOT labs Carmen meds Comment Review of Relevant I have reviewed the following items [place] (where applicable) has been applied. Labs Laboratory Tests Test 03/17/19 11:15 03/17/19 12:05 03/17/19 12:37 03/17/19 15:22 White Blood Count 8.5 x10^3/uL (4.0-11.0) Red Blood Count 4.72 x10^6/uL (3.50-5.40) Hemoglobin 13.3 g/dL (12.0-15.5) Hematocrit 40.6 % (36.0-47.0) Mean Corpuscular Volume 86 fL (79-100) Mean Corpuscular Hemoglobin 28 pg (25-35) Mean Corpuscular Hemoglobin Concent 33 g/dL (31-37) Red Cell Distribution Width 14.8 % (11.5-14.5) Platelet Count 215 x10^3/uL (140-400) Neutrophils (%) (Auto) 71 % (31-73) Lymphocytes (%) (Auto) 18 % (24-48) Monocytes (%) (Auto) 6 % (0-9) Eosinophils (%) (Auto) 4 % (0-3) Basophils (%) (Auto) 1 % (0-3) Neutrophils # (Auto) 6.1 x10^3uL (1.8-7.7) Lymphocytes # (Auto) 1.5 x10^3/uL (1.0-4.8) Monocytes # (Auto) 0.5 x10^3/uL (0.0-1.1) Eosinophils # (Auto) 0.3 x10^3/uL (0.0-0.7) Basophils # (Auto) 0.1 x10^3/uL (0.0-0.2) Lactic Acid Level 2.4 mmol/L (0.4-2.0) 2.6 mmol/L (0.4-2.0) Troponin I Quantitative < 0.017 ng/mL (0.000-0.055) JS-Djf-U-Type Natriuretic Peptide 300 pg/mL (0-449) O2 Saturation 95 % (92-99) Arterial Blood pH 7.44 (7.35-7.45) Arterial Blood pCO2 at Patient Temp 50 mmHg (35-46) Arterial Blood pO2 at Patient Temp 83 mmHg (65-108) Arterial Blood HCO3 33 mmol/L (21-28) Arterial Blood Base Excess 8 mmol/L (-3-3) FiO2 40 Sodium Level 142 mmol/L (136-145) Potassium Level 4.2 mmol/L (3.5-5.1) Chloride Level 102 mmol/L (98-107) Carbon Dioxide Level 33 mmol/L (21-32) Anion Gap 7 (6-14) Blood Urea Nitrogen 37 mg/dL (7-20) Creatinine 1.4 mg/dL (0.6-1.0) Estimated GFR (Cockcroft-Gault) 36.1 BUN/Creatinine Ratio 26 (6-20) Glucose Level 184 mg/dL (70-99) Calcium Level 8.6 mg/dL (8.5-10.1) Total Bilirubin 0.5 mg/dL (0.2-1.0) Aspartate Amino Transf (AST/SGOT) 39 U/L (15-37) Alanine Aminotransferase (ALT/SGPT) 30 U/L (14-59) Alkaline Phosphatase 85 U/L (46-116) Total Protein 7.1 g/dL (6.4-8.2) Albumin 2.4 g/dL (3.4-5.0) Albumin/Globulin Ratio 0.5 (1.0-1.7) Thyroid Stimulating Hormone (TSH) 3.218 uIU/mL (0.358-3.74) Test 03/18/19 07:45 Sodium Level 141 mmol/L (136-145) Potassium Level 4.2 mmol/L (3.5-5.1) Chloride Level 104 mmol/L (98-107) Carbon Dioxide Level 31 mmol/L (21-32) Anion Gap 6 (6-14) Blood Urea Nitrogen 36 mg/dL (7-20) Creatinine 1.2 mg/dL (0.6-1.0) Estimated GFR (Cockcroft-Gault) 43.1 Glucose Level 278 mg/dL (70-99) Calcium Level 8.4 mg/dL (8.5-10.1) Phosphorus Level 3.6 mg/dL (2.6-4.7) Albumin 2.3 g/dL (3.4-5.0) Laboratory Tests Test 03/17/19 11:15 03/17/19 12:05 03/17/19 12:37 03/17/19 15:22 White Blood Count 8.5 x10^3/uL (4.0-11.0) Red Blood Count 4.72 x10^6/uL (3.50-5.40) Hemoglobin 13.3 g/dL (12.0-15.5) Hematocrit 40.6 % (36.0-47.0) Mean Corpuscular Volume 86 fL (79-100) Mean Corpuscular Hemoglobin 28 pg (25-35) Mean Corpuscular Hemoglobin Concent 33 g/dL (31-37) Red Cell Distribution Width 14.8 % (11.5-14.5) Platelet Count 215 x10^3/uL (140-400) Neutrophils (%) (Auto) 71 % (31-73) Lymphocytes (%) (Auto) 18 % (24-48) Monocytes (%) (Auto) 6 % (0-9) Eosinophils (%) (Auto) 4 % (0-3) Basophils (%) (Auto) 1 % (0-3) Neutrophils # (Auto) 6.1 x10^3uL (1.8-7.7) Lymphocytes # (Auto) 1.5 x10^3/uL (1.0-4.8) Monocytes # (Auto) 0.5 x10^3/uL (0.0-1.1) Eosinophils # (Auto) 0.3 x10^3/uL (0.0-0.7) Basophils # (Auto) 0.1 x10^3/uL (0.0-0.2) Lactic Acid Level 2.4 mmol/L (0.4-2.0) 2.6 mmol/L (0.4-2.0) Troponin I Quantitative < 0.017 ng/mL (0.000-0.055) FZ-Bdg-M-Type Natriuretic Peptide 300 pg/mL (0-449) O2 Saturation 95 % (92-99) Arterial Blood pH 7.44 (7.35-7.45) Arterial Blood pCO2 at Patient Temp 50 mmHg (35-46) Arterial Blood pO2 at Patient Temp 83 mmHg (65-108) Arterial Blood HCO3 33 mmol/L (21-28) Arterial Blood Base Excess 8 mmol/L (-3-3) FiO2 40 Sodium Level 142 mmol/L (136-145) Potassium Level 4.2 mmol/L (3.5-5.1) Chloride Level 102 mmol/L (98-107) Carbon Dioxide Level 33 mmol/L (21-32) Anion Gap 7 (6-14) Blood Urea Nitrogen 37 mg/dL (7-20) Creatinine 1.4 mg/dL (0.6-1.0) Estimated GFR (Cockcroft-Gault) 36.1 BUN/Creatinine Ratio 26 (6-20) Glucose Level 184 mg/dL (70-99) Calcium Level 8.6 mg/dL (8.5-10.1) Total Bilirubin 0.5 mg/dL (0.2-1.0) Aspartate Amino Transf (AST/SGOT) 39 U/L (15-37) Alanine Aminotransferase (ALT/SGPT) 30 U/L (14-59) Alkaline Phosphatase 85 U/L (46-116) Total Protein 7.1 g/dL (6.4-8.2) Albumin 2.4 g/dL (3.4-5.0) Albumin/Globulin Ratio 0.5 (1.0-1.7) Thyroid Stimulating Hormone (TSH) 3.218 uIU/mL (0.358-3.74) Test 03/18/19 07:45 Sodium Level 141 mmol/L (136-145) Potassium Level 4.2 mmol/L (3.5-5.1) Chloride Level 104 mmol/L (98-107) Carbon Dioxide Level 31 mmol/L (21-32) Anion Gap 6 (6-14) Blood Urea Nitrogen 36 mg/dL (7-20) Creatinine 1.2 mg/dL (0.6-1.0) Estimated GFR (Cockcroft-Gault) 43.1 Glucose Level 278 mg/dL (70-99) Calcium Level 8.4 mg/dL (8.5-10.1) Phosphorus Level 3.6 mg/dL (2.6-4.7) Albumin 2.3 g/dL (3.4-5.0) Medications Current Medications Albuterol/ Ipratropium (Duoneb) 3 ml 1X ONCE NEB Last administered on 03/17/19at 11:51; Start 03/17/19 at 11:45; Stop 03/17/19 at 11:46; Status DC Acetaminophen (Tylenol) 650 mg TID PRN PRN PO PAIN; Start 03/17/19 at 17:00 Alprazolam (Xanax) 0.25 mg PRN Q6HRS PRN PO ANXIETY / AGITATION; Start 03/17/19 at 17:00 Aspirin (Ecotrin) 81 mg DAILY PO Last administered on 03/18/19at 09:30; Start 03/18/19 at 09:00 Carvedilol (Coreg) 6.25 mg BIDWMEALS PO Last administered on 03/18/19 09:29; Start 03/17/19 at 17:00 Guaifenesin (Mucinex) 600 mg BID PO Last administered on 03/18/19 09:30; Start 03/17/19 at 21:00 Albuterol Sulfate (Ventolin Neb Soln) 2.5 mg PRN Q4HRS PRN NEB SHORTNESS OF BREATH; Start 03/17/19 at 17:00 Lactobacillus Rhamnosus (Culturelle) 1 cap BID PO Last administered on 03/18/19at 09:29; Start 03/17/19 at 21:00 Magnesium Hydroxide (Milk Of Magnesia) 2,400 mg PRN Q12HR PRN PO CONSTIPATION; Start 03/17/19 at 17:00 Nystatin (Nystop) 1 rea BID TP Last administered on 03/18/19 09:31; Start 03/17/19 at 21:00 Budesonide (Pulmicort) 0.5 mg RTBID NEB Last administered on 03/18/19 07:51; Start 03/17/19 at 20:00 Non-Formulary Medication (Lactobacillus Acidophilus (Probiotic)) 1 each BID PO ; Start 03/17/19 at 21:00; Status UNV Potassium Chloride (Klor-Con) 40 meq DAILYWBKFT PO Last administered on 03/18/19 09:29; Start 03/18/19 at 08:00 Atorvastatin Calcium (Lipitor) 5 mg QHS PO Last administered on 03/17/19 23:03; Start 03/17/19 at 21:00 Methylprednisolone Sodium Succinate (SOLU-Medrol 40MG VIAL) 40 mg Q8HRS IV Last administered on 03/17/19 23:03; Start 03/17/19 at 17:00 Enoxaparin Sodium (Lovenox 30mg Syringe) 30 mg Q24H SQ Last administered on 03/17/19at 17:55; Start 03/17/19 at 17:00 Albuterol Sulfate (Ventolin Neb Soln) 2.5 mg RTQID NEB Last administered on 03/18/19 07:51; Start 03/17/19 at 20:00 Active Scripts Active Reported Duoneb 0.5-3(2.5) Mg/3 Ml (Albuterol/Ipratropium) 3 Ml Ampul.neb 3 Ml NEB PRN Q4HRS PRN Nystatin 100,000 Unit/1 Ml Oral.susp 1 Rea PO BID Prednisone 1 Mg Tablet 10 Mg PO DAILY 3 Days Probiotic (Lactobacillus Acidophilus) 1 Each Capsule 1 Each PO BID 10 Days Torsemide 20 Mg Tablet 40 Mg PO BID Potassium Chloride 20 Meq Tablet.er 40 Meq PO DAILY Mucinex (Guaifenesin) 600 Mg Tablet.er 1 Tab PO BID Xanax (Alprazolam) 0.25 Mg Tablet 0.25 Mg PO QHS 90 Days Afrin (Oxymetazoline Hcl) 30 Ml [place] 30 Ml NS PRN Q2HR PRN Tylenol (Acetaminophen) 325 Mg Tablet 650 Mg PO PRN Q8HRS PRN 60 Days Aspir 81 (Aspirin) 81 Mg Tablet.dr 1 Tab PO DAILY Iron Supplement (Ferrous Sulfate) 325 Mg Tablet 1 Tab PO DAILY Advair 250-50 Diskus (Fluticasone/Salmeterol) 1 Each Disk.w.dev 1 Puff IH BID Duoneb 0.5-3(2.5) Mg/3 Ml (Albuterol/Ipratropium) 3 Ml Ampul.neb 3 Ml IH QID 90 Days Pravastatin Sodium 10 Mg Tablet 1 Tab PO QHS Carvedilol (Carvedilol) 6.25 Mg Tablet 1 Tab PO BID Vitals/I & O Vital Sign - Last 24 Hours 03/17/19 03/17/19 03/17/19 03/17/19 11:15 11:17 11:52 11:54 Temp 98.2 98.2 Pulse 72 73 Resp 16 20 18 B/P (MAP) 176/67 (103) 176/67 (103) 150/77 (101) Pulse Ox 95 93 94 94 O2 Delivery Room Air Nasal Cannula Room Air Nasal Cannula O2 Flow Rate 3.0 3.0 03/17/19 03/17/19 03/17/19 03/17/19 12:22 12:52 13:22 13:52 Pulse 69 69 74 67 Resp 18 16 18 17 B/P (MAP) 149/60 (89) 148/73 (98) 133/68 (89) 116/64 (81) Pulse Ox 96 96 96 94 O2 Delivery Room Air Room Air Room Air Room Air 03/17/19 03/17/19 03/17/19 03/17/19 14:22 14:52 17:56 18:04 Pulse 76 77 77 Resp 18 18 B/P (MAP) 126/61 (82) 112/82 (92) 112/82 Pulse Ox 94 95 O2 Delivery Room Air Room Air Nasal Cannula O2 Flow Rate 3.0 03/17/19 03/17/19 03/17/19 03/18/19 20:30 20:58 23:00 03:00 Temp 98.5 97.9 98.5 97.9 Pulse 90 82 Resp 20 18 B/P (MAP) 134/68 (90) 139/55 (83) Pulse Ox 93 95 94 O2 Delivery Nasal Cannula Nasal Cannula Nasal Cannula Room Air O2 Flow Rate 3.0 3.0 3.0 03/18/19 03/18/19 07:51 09:29 Pulse 82 B/P (MAP) 139/55 Pulse Ox 95 O2 Delivery Nasal Cannula O2 Flow Rate 3.0 Intake and Output 03/17/19 03/17/19 03/18/19 14:59 22:59 06:59 Intake Total 300 ml 300 ml Output Total 1 ml Balance 299 ml 300 ml ANN MARIE TREVINO III DO Mar 18, 2019 10:44
[2019-03-18 11:00] VITALS: BP 160/77
--- NOTE | 2019-03-18 14:23 | NUR ---
SW following pt for dc planning. Chart reviewed and discussed with RN. SW confirmed with [facility] at [facility], Pt is LTC resident. SW will continue to follow.
[2019-03-18 15:00] VITALS: BP 161/71
--- NOTE | 2019-03-18 15:16 | PDOC ---
PULMONARY PROGRESS NOTES Vitals Vital Signs Date Time Temp Pulse Resp B/P (MAP) Pulse Ox O2 Delivery O2 Flow Rate FiO2 03/18/19 11:40 Nasal Cannula 3.0 03/18/19 11:00 97.4 72 20 160/77 (104) 94 97.4 General: Alert, No acute distress HEENT: Other Lungs: Crackles, Other Cardiovascular: S1, S2 Abdomen: Soft, Non-tender Extremities: Other Labs Laboratory Tests Test 03/17/19 11:15 03/17/19 12:05 03/17/19 12:37 03/17/19 15:22 White Blood Count 8.5 x10^3/uL (4.0-11.0) Red Blood Count 4.72 x10^6/uL (3.50-5.40) Hemoglobin 13.3 g/dL (12.0-15.5) Hematocrit 40.6 % (36.0-47.0) Mean Corpuscular Volume 86 fL (79-100) Mean Corpuscular Hemoglobin 28 pg (25-35) Mean Corpuscular Hemoglobin Concent 33 g/dL (31-37) Red Cell Distribution Width 14.8 % (11.5-14.5) Platelet Count 215 x10^3/uL (140-400) Neutrophils (%) (Auto) 71 % (31-73) Lymphocytes (%) (Auto) 18 % (24-48) Monocytes (%) (Auto) 6 % (0-9) Eosinophils (%) (Auto) 4 % (0-3) Basophils (%) (Auto) 1 % (0-3) Neutrophils # (Auto) 6.1 x10^3uL (1.8-7.7) Lymphocytes # (Auto) 1.5 x10^3/uL (1.0-4.8) Monocytes # (Auto) 0.5 x10^3/uL (0.0-1.1) Eosinophils # (Auto) 0.3 x10^3/uL (0.0-0.7) Basophils # (Auto) 0.1 x10^3/uL (0.0-0.2) Lactic Acid Level 2.4 mmol/L (0.4-2.0) 2.6 mmol/L (0.4-2.0) Troponin I Quantitative < 0.017 ng/mL (0.000-0.055) PZ-Ceh-E-Type Natriuretic Peptide 300 pg/mL (0-449) O2 Saturation 95 % (92-99) Arterial Blood pH 7.44 (7.35-7.45) Arterial Blood pCO2 at Patient Temp 50 mmHg (35-46) Arterial Blood pO2 at Patient Temp 83 mmHg (65-108) Arterial Blood HCO3 33 mmol/L (21-28) Arterial Blood Base Excess 8 mmol/L (-3-3) FiO2 40 Sodium Level 142 mmol/L (136-145) Potassium Level 4.2 mmol/L (3.5-5.1) Chloride Level 102 mmol/L (98-107) Carbon Dioxide Level 33 mmol/L (21-32) Anion Gap 7 (6-14) Blood Urea Nitrogen 37 mg/dL (7-20) Creatinine 1.4 mg/dL (0.6-1.0) Estimated GFR (Cockcroft-Gault) 36.1 BUN/Creatinine Ratio 26 (6-20) Glucose Level 184 mg/dL (70-99) Calcium Level 8.6 mg/dL (8.5-10.1) Total Bilirubin 0.5 mg/dL (0.2-1.0) Aspartate Amino Transf (AST/SGOT) 39 U/L (15-37) Alanine Aminotransferase (ALT/SGPT) 30 U/L (14-59) Alkaline Phosphatase 85 U/L (46-116) Total Protein 7.1 g/dL (6.4-8.2) Albumin 2.4 g/dL (3.4-5.0) Albumin/Globulin Ratio 0.5 (1.0-1.7) Thyroid Stimulating Hormone (TSH) 3.218 uIU/mL (0.358-3.74) Test 03/18/19 07:45 Sodium Level 141 mmol/L (136-145) Potassium Level 4.2 mmol/L (3.5-5.1) Chloride Level 104 mmol/L (98-107) Carbon Dioxide Level 31 mmol/L (21-32) Anion Gap 6 (6-14) Blood Urea Nitrogen 36 mg/dL (7-20) Creatinine 1.2 mg/dL (0.6-1.0) Estimated GFR (Cockcroft-Gault) 43.1 Glucose Level 278 mg/dL (70-99) Calcium Level 8.4 mg/dL (8.5-10.1) Phosphorus Level 3.6 mg/dL (2.6-4.7) Albumin 2.3 g/dL (3.4-5.0) Laboratory Tests Test 03/17/19 15:22 03/18/19 07:45 Lactic Acid Level 2.6 mmol/L (0.4-2.0) Sodium Level 141 mmol/L (136-145) Potassium Level 4.2 mmol/L (3.5-5.1) Chloride Level 104 mmol/L (98-107) Carbon Dioxide Level 31 mmol/L (21-32) Anion Gap 6 (6-14) Blood Urea Nitrogen 36 mg/dL (7-20) Creatinine 1.2 mg/dL (0.6-1.0) Estimated GFR (Cockcroft-Gault) 43.1 Glucose Level 278 mg/dL (70-99) Calcium Level 8.4 mg/dL (8.5-10.1) Phosphorus Level 3.6 mg/dL (2.6-4.7) Albumin 2.3 g/dL (3.4-5.0) Medications Active Scripts Medications Dose Route/Sig Max Daily Dose Days Date Category Duoneb 0.5-3(2.5) Mg/3 Ml (Albuterol/Ipratropium) 3 Ml Ampul.neb 3 Ml NEB PRN Q4HRS PRN 03/17/19 Reported Nystatin 100,000 Unit/1 Ml Oral.susp 1 Rea PO BID 03/17/19 Reported Prednisone 1 Mg Tablet 10 Mg PO DAILY 3 11/29/18 Reported Probiotic (Lactobacillus Acidophilus) 1 Each Capsule 1 Each PO BID 10 11/29/18 Reported Torsemide 20 Mg Tablet 40 Mg PO BID 11/22/18 Reported Potassium Chloride 20 Meq Tablet.er 40 Meq PO DAILY 11/22/18 Reported Mucinex (Guaifenesin) 600 Mg Tablet.er 1 Tab PO BID 11/22/18 Reported Xanax (Alprazolam) 0.25 Mg Tablet 0.25 Mg PO QHS 90 11/22/18 Reported Afrin (Oxymetazoline Hcl) 30 Ml [place] 30 Ml NS PRN Q2HR PRN 11/22/18 Reported Tylenol (Acetaminophen) 325 Mg Tablet 650 Mg PO PRN Q8HRS PRN 60 04/11/16 Reported Aspir 81 (Aspirin) 81 Mg Tablet.dr 1 Tab PO DAILY 04/11/16 Reported Iron Supplement (Ferrous Sulfate) 325 Mg Tablet 1 Tab PO DAILY 11/10/15 Reported Advair 250-50 Diskus (Fluticasone/Salmeterol) 1 Each Disk.w.dev 1 Puff IH BID 05/06/15 Reported Duoneb 0.5-3(2.5) Mg/3 Ml (Albuterol/Ipratropium) 3 Ml Ampul.neb 3 Ml IH QID 90 05/06/15 Reported Pravastatin Sodium 10 Mg Tablet 1 Tab PO QHS 09/16/14 Reported Carvedilol (Carvedilol) 6.25 Mg Tablet 1 Tab PO BID 09/16/14 Reported Impression . NOTE DICTATED WILL REPEAT CT CHEST THANKS NO CLINICAL SIGN OF PNEUMONIA JESSE STRANGE MD Mar 18, 2019 15:16
--- NOTE | 2019-03-18 16:28 | RAD ---
CT CHEST WO CONTRAST Indication: Hypoxemia. Exposure: One or more of the following individualized dose reduction techniques were utilized for this examination: 1. Automated exposure control 2. Adjustment of the mA and/or kV according to patient size 3. Use of iterative reconstruction technique. Technique: Standard imaging without intravenous contrast. Comparison: 06/03/2018 CTA of the chest, although there are technique differences between the 2 exams. FINDINGS: Limited vascular examination without contrast. The aorta is calcified. Ascending aorta measures about 3.6 cm diameter stable. No descending aortic dissection. No significant lymph node enlargement. Limited hilar evaluation however due to the lack of contrast. No dominant thyroid mass. Heart size enlarged with coronary artery calcification. No evidence of significant pleural or pericardial effusion. There is some infiltrate in the right lung base but not as advanced as seen on the previous exam. There is some markings in the right lower lobe in the right upper lobe roughly similar to the previous exam. Somewhat stellate nodular opacity in the superior segment of the right lower lobe measuring about 9 mm, coronal series 5, image 48, appears unchanged since prior study. Somewhat nodular opacity in the left lung base laterally, series 3, image 44, stable since prior study. Reticular markings throughout the left lung also appear roughly similar. Trachea and mainstem bronchi are patent. There is some relative volume loss of the right hemithorax as compared with the left. Degenerative spondylosis. Severe degenerative changes of both shoulders. Scans to the upper abdomen are limited by technique. No definite acute abnormality. There is colonic diverticulosis. IMPRESSION: 1. Somewhat nodular opacities in the left lower lobe and in the right lower lobe are stable since previous exam. 2. Previously seen right lower lobe infiltrate has improved. Demonstrates bilateral reticular opacities and right hemithorax volume loss are stable since the prior exam. Electronically signed by: Finesse Garcia MD (03/18/2019 4:25 PM) [id number]
[2019-03-18] MEDS: ENOXAPARIN 40 MG/0.4 ML SYRINGE. SQ SCH (18:42)
[2019-03-18 19:26] VITALS: BP 142/72
[2019-03-18] MEDS: ATORVASTATIN CALCIUM 10 MG TABLET. PO SCH (20:44)
[2019-03-18 23:59] VITALS: BP 121/68
--- NOTE | 2019-03-19 01:03 | CONS ---
DATE OF CONSULTATION: 03/18/2019 ATTENDING PHYSICIAN: Dr. Munguia. REASON FOR CONSULTATION: The patient seen in pulmonary consultation at the request of Dr. Munguia for possible interstitial lung disease, COPD. HISTORY OF PRESENT ILLNESS: The patient is an 79-year-old that presented with worsening shortness of breath. She was noted to be hypoxic. According to the patient herself, she is not short of breath. She has never smoked, does not wear oxygen at home. An x-ray was obtained, which revealed evidence of interstitial lung disease, obstructive lung disease and some pleural plaques. I was asked to see her in consultation. She normally wears 2 liters of oxygen at the half-way. At times, she has gone up to 3 or 4. She was admitted. I was asked to see her in consultation. When I specifically asked the patient why she came in through the Emergency Room and why she was admitted, she told me she had some abdominal pain. She was not complaining of being short of breath. PAST MEDICAL HISTORY: 1. The patient has never smoked. She has been around multiple fumes and dust particles in the past as [place]. 2. Hypertension. 3. Peripheral neuropathy. 4. Anemia. 5. Osteoarthritis. PAST SURGICAL HISTORY: Cholecystectomy. FAMILY HISTORY: Coronary artery disease. No family history of lung disorders. SOCIAL HISTORY: She has never smoked. Denies any alcohol intake. MEDICATIONS: List was reviewed. REVIEW OF SYSTEMS: CONSTITUTIONAL: No fever or chills. EYES: No change in visual acuity. HEENT: No nasal congestion or sore throat. PULMONARY: As indicated above. CARDIOVASCULAR: No chest pain. No pressure. GASTROINTESTINAL: No nausea, vomiting, diarrhea. GENITOURINARY: No dysuria or frequency. MUSCULOSKELETAL: No localized muscle aches or joint pains. SKIN: No new skin rashes. NEUROLOGIC: No headaches, diplopia or blurred vision. PHYSICAL EXAMINATION: VITAL SIGNS: Stable. O2 saturation currently on 3 liters was greater than 92%. HEENT: Eyes, the sclerae were nonicteric. NECK: Jugular venous distention was not elevated. No lymphadenopathy. CHEST: Full expansion. LUNGS: Adequate airway flow with no significant crackles or wheezes. CARDIOVASCULAR: Regular rate and rhythm with S1, S2, no S3. ABDOMEN: Soft, nontender, nondistended. EXTREMITIES: No clubbing, cyanosis or edema. LABORATORY DATA: Reviewed. Chest x-ray reviewed, some chronic scarring in the right greater than left, mostly in the bases. There was some calcified mediastinal lymph nodes. She had a CT chest, 06/03/2018, revealing a spiculated nodule in the right upper lobe. I reviewed the CT dated 06/03/2018. She had some calcified mediastinal nodes. She had some pleural thickening on the right with some ill-defined infiltrate in the base of the right lung. At that time, she also had some infiltrates on the left. She has not had a CT since then. LABORATORY DATA: Labs were reviewed. White count was normal. Arterial blood gas; pH of 7.44, PaCO2 of 50, paO2 of 83. Electrolytes were noted. BUN was elevated, creatinine was elevated. IMPRESSION: 1. Abnormal x-ray. 2. Acute and chronic hypoxemic respiratory failure. 3. Previous pneumonia. 4. Calcified mediastinal lymph nodes compatible with old granulomatous disease. 5. [id number] protein malnutrition. 6. Hypothyroidism. 7. Acute on chronic diastolic heart failure. 8. Acute kidney injury. PLAN: 1. We will repeat CT chest and compared to the one performed back in 2018. 2. Continue current support and treatment. 3. No clinical symptoms and signs of pneumonia. 4. Continue diuresis. 5. DVT prophylaxis. 6. Steroids. I do appreciate the privilege in sharing this patient's care. JESSE STRANGE MD DR: ELMA/rito JOB#: [id number] / [id number]
[2019-03-19 03:41] VITALS: BP 140/71
[2019-03-19] MEDS: methylPREDNISolone SOD SUCC PF 40 MG/ML VIAL. IV SCH ×3 (06:08→21:50)
[2019-03-19 07:00] VITALS: BP 173/83
[2019-03-19] MEDS: BUDESONIDE 0.5 MG/2 ML NEBU. NEB SCH ×2 (08:00→19:58)
[2019-03-19 08:10] LABS: ALBUMIN 2.2 g/dL (3.4-5.0); CALCIUM 8.4 mg/dL (8.5-10.1); GFR 53.2; PHOSPHORUS 3.9 mg/dL (2.6-4.7); POTASSIUM 4.5 mmol/L (3.5-5.1)
[2019-03-19] MEDS: ASPIRIN ENTERIC COATED 81 MG TABLET.DR. PO SCH (08:15)
[2019-03-19] MEDS: LACTOBACILLUS RHAMNOSUS GG 1 CAPSULE. PO SCH ×2 (08:16→20:29)
[2019-03-19] MEDS: CARVEDILOL 6.25 MG TABLET. PO SCH ×2 (08:16→17:25)
[2019-03-19] MEDS: NYSTATIN TOPICAL POWDER 15GM BOTTLE. TP SCH ×2 (08:16→20:29)
[2019-03-19] MEDS: POTASSIUM CHLORIDE 20 MEQ TABLET.ER. PO SCH (08:16)
[2019-03-19] MEDS: ALBUTEROL SULFATE 2.5 MG/3 ML NEBU. NEB SCH ×4 (08:46→19:58)
--- NOTE | 2019-03-19 08:46 | PDOC ---
PULMONARY PROGRESS NOTES Subjective PT LESS SOA OW COUTH NON PRODUCTIVE Vitals Vital Signs Date Time Temp Pulse Resp B/P (MAP) Pulse Ox O2 Delivery O2 Flow Rate FiO2 03/19/19 08:16 68 173/83 03/19/19 03:41 97.6 16 95 Nasal Cannula 3.0 97.6 ROS: No Nausea, No Chest Pain, No Abdominal Pain General: Alert, No acute distress HEENT: Other Lungs: Crackles, Other Cardiovascular: S1, S2 Abdomen: Soft, Non-tender Neuro Exam: Alert Extremities: Other Labs Laboratory Tests Test 03/17/19 11:15 03/17/19 12:05 03/17/19 12:37 03/17/19 15:22 White Blood Count 8.5 x10^3/uL (4.0-11.0) Red Blood Count 4.72 x10^6/uL (3.50-5.40) Hemoglobin 13.3 g/dL (12.0-15.5) Hematocrit 40.6 % (36.0-47.0) Mean Corpuscular Volume 86 fL (79-100) Mean Corpuscular Hemoglobin 28 pg (25-35) Mean Corpuscular Hemoglobin Concent 33 g/dL (31-37) Red Cell Distribution Width 14.8 % (11.5-14.5) Platelet Count 215 x10^3/uL (140-400) Neutrophils (%) (Auto) 71 % (31-73) Lymphocytes (%) (Auto) 18 % (24-48) Monocytes (%) (Auto) 6 % (0-9) Eosinophils (%) (Auto) 4 % (0-3) Basophils (%) (Auto) 1 % (0-3) Neutrophils # (Auto) 6.1 x10^3uL (1.8-7.7) Lymphocytes # (Auto) 1.5 x10^3/uL (1.0-4.8) Monocytes # (Auto) 0.5 x10^3/uL (0.0-1.1) Eosinophils # (Auto) 0.3 x10^3/uL (0.0-0.7) Basophils # (Auto) 0.1 x10^3/uL (0.0-0.2) Lactic Acid Level 2.4 mmol/L (0.4-2.0) 2.6 mmol/L (0.4-2.0) Troponin I Quantitative < 0.017 ng/mL (0.000-0.055) DC-Cer-C-Type Natriuretic Peptide 300 pg/mL (0-449) O2 Saturation 95 % (92-99) Arterial Blood pH 7.44 (7.35-7.45) Arterial Blood pCO2 at Patient Temp 50 mmHg (35-46) Arterial Blood pO2 at Patient Temp 83 mmHg (65-108) Arterial Blood HCO3 33 mmol/L (21-28) Arterial Blood Base Excess 8 mmol/L (-3-3) FiO2 40 Sodium Level 142 mmol/L (136-145) Potassium Level 4.2 mmol/L (3.5-5.1) Chloride Level 102 mmol/L (98-107) Carbon Dioxide Level 33 mmol/L (21-32) Anion Gap 7 (6-14) Blood Urea Nitrogen 37 mg/dL (7-20) Creatinine 1.4 mg/dL (0.6-1.0) Estimated GFR (Cockcroft-Gault) 36.1 BUN/Creatinine Ratio 26 (6-20) Glucose Level 184 mg/dL (70-99) Calcium Level 8.6 mg/dL (8.5-10.1) Total Bilirubin 0.5 mg/dL (0.2-1.0) Aspartate Amino Transf (AST/SGOT) 39 U/L (15-37) Alanine Aminotransferase (ALT/SGPT) 30 U/L (14-59) Alkaline Phosphatase 85 U/L (46-116) Total Protein 7.1 g/dL (6.4-8.2) Albumin 2.4 g/dL (3.4-5.0) Albumin/Globulin Ratio 0.5 (1.0-1.7) Thyroid Stimulating Hormone (TSH) 3.218 uIU/mL (0.358-3.74) Test 03/18/19 07:45 03/19/19 06:40 Sodium Level 141 mmol/L (136-145) 143 mmol/L (136-145) Potassium Level 4.2 mmol/L (3.5-5.1) 4.5 mmol/L (3.5-5.1) Chloride Level 104 mmol/L (98-107) 106 mmol/L (98-107) Carbon Dioxide Level 31 mmol/L (21-32) 31 mmol/L (21-32) Anion Gap 6 (6-14) 6 (6-14) Blood Urea Nitrogen 36 mg/dL (7-20) 31 mg/dL (7-20) Creatinine 1.2 mg/dL (0.6-1.0) 1.0 mg/dL (0.6-1.0) Estimated GFR (Cockcroft-Gault) 43.1 53.2 Glucose Level 278 mg/dL (70-99) 252 mg/dL (70-99) Calcium Level 8.4 mg/dL (8.5-10.1) 8.4 mg/dL (8.5-10.1) Phosphorus Level 3.6 mg/dL (2.6-4.7) 3.9 mg/dL (2.6-4.7) Albumin 2.3 g/dL (3.4-5.0) 2.2 g/dL (3.4-5.0) Laboratory Tests Test 03/19/19 06:40 Sodium Level 143 mmol/L (136-145) Potassium Level 4.5 mmol/L (3.5-5.1) Chloride Level 106 mmol/L (98-107) Carbon Dioxide Level 31 mmol/L (21-32) Anion Gap 6 (6-14) Blood Urea Nitrogen 31 mg/dL (7-20) Creatinine 1.0 mg/dL (0.6-1.0) Estimated GFR (Cockcroft-Gault) 53.2 Glucose Level 252 mg/dL (70-99) Calcium Level 8.4 mg/dL (8.5-10.1) Phosphorus Level 3.9 mg/dL (2.6-4.7) Albumin 2.2 g/dL (3.4-5.0) Medications Active Scripts Medications Dose Route/Sig Max Daily Dose Days Date Category Duoneb 0.5-3(2.5) Mg/3 Ml (Albuterol/Ipratropium) 3 Ml Ampul.neb 3 Ml NEB PRN Q4HRS PRN 03/17/19 Reported Nystatin 100,000 Unit/1 Ml Oral.susp 1 Rea PO BID 03/17/19 Reported Prednisone 1 Mg Tablet 10 Mg PO DAILY 3 11/29/18 Reported Probiotic (Lactobacillus Acidophilus) 1 Each Capsule 1 Each PO BID 10 11/29/18 Reported Torsemide 20 Mg Tablet 40 Mg PO BID 11/22/18 Reported Potassium Chloride 20 Meq Tablet.er 40 Meq PO DAILY 11/22/18 Reported Mucinex (Guaifenesin) 600 Mg Tablet.er 1 Tab PO BID 11/22/18 Reported Xanax (Alprazolam) 0.25 Mg Tablet 0.25 Mg PO QHS 90 11/22/18 Reported Afrin (Oxymetazoline Hcl) 30 Ml [place] 30 Ml NS PRN Q2HR PRN 11/22/18 Reported Tylenol (Acetaminophen) 325 Mg Tablet 650 Mg PO PRN Q8HRS PRN 60 04/11/16 Reported Aspir 81 (Aspirin) 81 Mg Tablet.dr 1 Tab PO DAILY 04/11/16 Reported Iron Supplement (Ferrous Sulfate) 325 Mg Tablet 1 Tab PO DAILY 11/10/15 Reported Advair 250-50 Diskus (Fluticasone/Salmeterol) 1 Each Disk.w.dev 1 Puff IH BID 05/06/15 Reported Duoneb 0.5-3(2.5) Mg/3 Ml (Albuterol/Ipratropium) 3 Ml Ampul.neb 3 Ml IH QID 90 05/06/15 Reported Pravastatin Sodium 10 Mg Tablet 1 Tab PO QHS 09/16/14 Reported Carvedilol (Carvedilol) 6.25 Mg Tablet 1 Tab PO BID 09/16/14 Reported Impression . IMPRESSION: 1. Abnormal x-ray. 2. Acute and chronic hypoxemic respiratory failure. 3. Previous pneumonia.MRSA 4. Calcified mediastinal lymph nodes compatible with old granulomatous disease. 5. Lvmapcnn-ai-oxhzmx protein malnutrition. 6. Hypothyroidism. 7. Acute on chronic diastolic heart failure. 8. Acute kidney injury. IMPRESSION: 1. Somewhat nodular opacities in the left lower lobe and in the right lower lobe are stable since previous exam. 2. Previously seen right lower lobe infiltrate has improved. Demonstrates bilateral reticular opacities and right hemithorax volume loss are stable since the prior exam. Plan . CONTINUE THE SAME 1. REVIEWED CT WILL MONITOR FOR NOW 2. Continue current support and treatment. 3. No clinical symptoms and signs of pneumonia. 4. Continue diuresis. 5. DVT prophylaxis. 6. Steroids. JESSE STRANGE MD Mar 19, 2019 08:46
--- NOTE | 2019-03-19 10:25 | PDOC ---
[employer] PROGRESS NOTE Chief Complaint Chief Complaint Resp fail COPD Lung nodules REY CHF History of: Anemia, COPD, High Cholesterol, Hypertension neuropathy, angina, home ox 3L NC, Cholecystectomy History of Present Illness History of Present Illness Pt seen and examined DW RN Pt is A&O Vitals Vitals Vital Signs Date Time Temp Pulse Resp B/P (MAP) Pulse Ox O2 Delivery O2 Flow Rate FiO2 03/19/19 08:49 96 Nasal Cannula 3.0 03/19/19 08:16 68 173/83 03/19/19 07:00 98.4 18 98.4 Physical Exam General: Alert, Cooperative, No acute distress Heart: Regular rate, Normal S1 Lungs: Crackles, Other Abdomen: Normal bowel sounds, Soft, No tenderness, No hepatosplenomegaly, No masses Extremities: No clubbing, No cyanosis, Normal pulses, No tenderness/swelling, Other (2+ edema) Skin: No rashes, No breakdown, No significant lesion Labs Labs: Laboratory Tests Test 03/19/19 06:40 Sodium Level 143 mmol/L (136-145) Potassium Level 4.5 mmol/L (3.5-5.1) Chloride Level 106 mmol/L (98-107) Carbon Dioxide Level 31 mmol/L (21-32) Anion Gap 6 (6-14) Blood Urea Nitrogen 31 mg/dL (7-20) Creatinine 1.0 mg/dL (0.6-1.0) Estimated GFR (Cockcroft-Gault) 53.2 Glucose Level 252 mg/dL (70-99) Calcium Level 8.4 mg/dL (8.5-10.1) Phosphorus Level 3.9 mg/dL (2.6-4.7) Albumin 2.2 g/dL (3.4-5.0) Assessment and Plan Assessmemt and Plan Resp fail COPD Lung nodules REY CHF History of: Anemia, COPD, High Cholesterol, Hypertension neuropathy, angina, home ox 3L NC, Cholecystectomy Plan O2 Nebs Pulm following PTOT labs Carmen meds DVT proph Comment Review of Relevant I have reviewed the following items [place] (where applicable) has been applied. Labs Laboratory Tests Test 03/17/19 11:15 03/17/19 12:05 03/17/19 12:37 03/17/19 15:22 White Blood Count 8.5 x10^3/uL (4.0-11.0) Red Blood Count 4.72 x10^6/uL (3.50-5.40) Hemoglobin 13.3 g/dL (12.0-15.5) Hematocrit 40.6 % (36.0-47.0) Mean Corpuscular Volume 86 fL (79-100) Mean Corpuscular Hemoglobin 28 pg (25-35) Mean Corpuscular Hemoglobin Concent 33 g/dL (31-37) Red Cell Distribution Width 14.8 % (11.5-14.5) Platelet Count 215 x10^3/uL (140-400) Neutrophils (%) (Auto) 71 % (31-73) Lymphocytes (%) (Auto) 18 % (24-48) Monocytes (%) (Auto) 6 % (0-9) Eosinophils (%) (Auto) 4 % (0-3) Basophils (%) (Auto) 1 % (0-3) Neutrophils # (Auto) 6.1 x10^3uL (1.8-7.7) Lymphocytes # (Auto) 1.5 x10^3/uL (1.0-4.8) Monocytes # (Auto) 0.5 x10^3/uL (0.0-1.1) Eosinophils # (Auto) 0.3 x10^3/uL (0.0-0.7) Basophils # (Auto) 0.1 x10^3/uL (0.0-0.2) Lactic Acid Level 2.4 mmol/L (0.4-2.0) 2.6 mmol/L (0.4-2.0) Troponin I Quantitative < 0.017 ng/mL (0.000-0.055) UY-Bdj-A-Type Natriuretic Peptide 300 pg/mL (0-449) O2 Saturation 95 % (92-99) Arterial Blood pH 7.44 (7.35-7.45) Arterial Blood pCO2 at Patient Temp 50 mmHg (35-46) Arterial Blood pO2 at Patient Temp 83 mmHg (65-108) Arterial Blood HCO3 33 mmol/L (21-28) Arterial Blood Base Excess 8 mmol/L (-3-3) FiO2 40 Sodium Level 142 mmol/L (136-145) Potassium Level 4.2 mmol/L (3.5-5.1) Chloride Level 102 mmol/L (98-107) Carbon Dioxide Level 33 mmol/L (21-32) Anion Gap 7 (6-14) Blood Urea Nitrogen 37 mg/dL (7-20) Creatinine 1.4 mg/dL (0.6-1.0) Estimated GFR (Cockcroft-Gault) 36.1 BUN/Creatinine Ratio 26 (6-20) Glucose Level 184 mg/dL (70-99) Calcium Level 8.6 mg/dL (8.5-10.1) Total Bilirubin 0.5 mg/dL (0.2-1.0) Aspartate Amino Transf (AST/SGOT) 39 U/L (15-37) Alanine Aminotransferase (ALT/SGPT) 30 U/L (14-59) Alkaline Phosphatase 85 U/L (46-116) Total Protein 7.1 g/dL (6.4-8.2) Albumin 2.4 g/dL (3.4-5.0) Albumin/Globulin Ratio 0.5 (1.0-1.7) Thyroid Stimulating Hormone (TSH) 3.218 uIU/mL (0.358-3.74) Test 03/18/19 07:45 03/19/19 06:40 Sodium Level 141 mmol/L (136-145) 143 mmol/L (136-145) Potassium Level 4.2 mmol/L (3.5-5.1) 4.5 mmol/L (3.5-5.1) Chloride Level 104 mmol/L (98-107) 106 mmol/L (98-107) Carbon Dioxide Level 31 mmol/L (21-32) 31 mmol/L (21-32) Anion Gap 6 (6-14) 6 (6-14) Blood Urea Nitrogen 36 mg/dL (7-20) 31 mg/dL (7-20) Creatinine 1.2 mg/dL (0.6-1.0) 1.0 mg/dL (0.6-1.0) Estimated GFR (Cockcroft-Gault) 43.1 53.2 Glucose Level 278 mg/dL (70-99) 252 mg/dL (70-99) Calcium Level 8.4 mg/dL (8.5-10.1) 8.4 mg/dL (8.5-10.1) Phosphorus Level 3.6 mg/dL (2.6-4.7) 3.9 mg/dL (2.6-4.7) Albumin 2.3 g/dL (3.4-5.0) 2.2 g/dL (3.4-5.0) Laboratory Tests Test 03/19/19 06:40 Sodium Level 143 mmol/L (136-145) Potassium Level 4.5 mmol/L (3.5-5.1) Chloride Level 106 mmol/L (98-107) Carbon Dioxide Level 31 mmol/L (21-32) Anion Gap 6 (6-14) Blood Urea Nitrogen 31 mg/dL (7-20) Creatinine 1.0 mg/dL (0.6-1.0) Estimated GFR (Cockcroft-Gault) 53.2 Glucose Level 252 mg/dL (70-99) Calcium Level 8.4 mg/dL (8.5-10.1) Phosphorus Level 3.9 mg/dL (2.6-4.7) Albumin 2.2 g/dL (3.4-5.0) Medications Current Medications Albuterol/ Ipratropium (Duoneb) 3 ml 1X ONCE NEB Last administered on 03/17/19at 11:51; Start 03/17/19 at 11:45; Stop 03/17/19 at 11:46; Status DC Acetaminophen (Tylenol) 650 mg TID PRN PRN PO PAIN; Start 03/17/19 at 17:00 Alprazolam (Xanax) 0.25 mg PRN Q6HRS PRN PO ANXIETY / AGITATION; Start 03/17/19 at 17:00 Aspirin (Ecotrin) 81 mg DAILY PO Last administered on 03/19/19at 08:15; Start 03/18/19 at 09:00 Carvedilol (Coreg) 6.25 mg BIDWMEALS PO Last administered on 03/19/19at 08:16; Start 03/17/19 at 17:00 Guaifenesin (Mucinex) 600 mg BID PO Last administered on 03/19/19at 08:15; Start 03/17/19 at 21:00 Albuterol Sulfate (Ventolin Neb Soln) 2.5 mg PRN Q4HRS PRN NEB SHORTNESS OF BREATH; Start 03/17/19 at 17:00 Lactobacillus Rhamnosus (Culturelle) 1 cap BID PO Last administered on 7/2/19at 08:16; Start 03/17/19 at 21:00 Magnesium Hydroxide (Milk Of Magnesia) 2,400 mg PRN Q12HR PRN PO CONSTIPATION; Start 03/17/19 at 17:00 Nystatin (Nystop) 1 rea BID TP Last administered on 03/19/19 08:16; Start 03/17/19 at 21:00 Budesonide (Pulmicort) 0.5 mg RTBID NEB Last administered on 03/18/19 20:22; Start 03/17/19 at 20:00 Non-Formulary Medication (Lactobacillus Acidophilus (Probiotic)) 1 each BID PO ; Start 03/17/19 at 21:00; Status UNV Potassium Chloride (Klor-Con) 40 meq DAILYWBKFT PO Last administered on 03/19/19 08:16; Start 03/18/19 at 08:00 Atorvastatin Calcium (Lipitor) 5 mg QHS PO Last administered on 03/18/19 20:44; Start 03/17/19 at 21:00 Methylprednisolone Sodium Succinate (SOLU-Medrol 40MG VIAL) 40 mg Q8HRS IV Last administered on 03/19/19 06:08; Start 03/17/19 at 17:00 Enoxaparin Sodium (Lovenox 30mg Syringe) 30 mg Q24H SQ Last administered on 03/17/19 17:55; Start 03/17/19 at 17:00; Stop 03/18/19 at 10:56; Status DC Albuterol Sulfate (Ventolin Neb Soln) 2.5 mg RTQID NEB Last administered on 08:46; Start 03/17/19 at 20:00 Enoxaparin Sodium (Lovenox 40mg Syringe) 40 mg Q24H SQ Last administered on 03/18/19 18:42; Start 03/18/19 at 17:00 Active Scripts Active Reported Duoneb 0.5-3(2.5) Mg/3 Ml (Albuterol/Ipratropium) 3 Ml Ampul.neb 3 Ml NEB PRN Q4HRS PRN Nystatin 100,000 Unit/1 Ml Oral.susp 1 Rea PO BID Prednisone 1 Mg Tablet 10 Mg PO DAILY 3 Days Probiotic (Lactobacillus Acidophilus) 1 Each Capsule 1 Each PO BID 10 Days Torsemide 20 Mg Tablet 40 Mg PO BID Potassium Chloride 20 Meq Tablet.er 40 Meq PO DAILY Mucinex (Guaifenesin) 600 Mg Tablet.er 1 Tab PO BID Xanax (Alprazolam) 0.25 Mg Tablet 0.25 Mg PO QHS 90 Days Afrin (Oxymetazoline Hcl) 30 Ml [place] 30 Ml NS PRN Q2HR PRN Tylenol (Acetaminophen) 325 Mg Tablet 650 Mg PO PRN Q8HRS PRN 60 Days Aspir 81 (Aspirin) 81 Mg Tablet. 1 Tab PO DAILY Iron Supplement (Ferrous Sulfate) 325 Mg Tablet 1 Tab PO DAILY Advair 250-50 Diskus (Fluticasone/Salmeterol) 1 Each Disk.w.dev 1 Puff IH BID Duoneb 0.5-3(2.5) Mg/3 Ml (Albuterol/Ipratropium) 3 Ml Ampul.neb 3 Ml IH QID 90 Days Pravastatin Sodium 10 Mg Tablet 1 Tab PO QHS Carvedilol (Carvedilol) 6.25 Mg Tablet 1 Tab PO BID Vitals/I & O Vital Sign - Last 24 Hours 03/18/19 03/18/19 03/18/19 03/18/19 11:00 11:40 15:00 16:17 Temp 97.4 97.7 97.4 97.7 Pulse 72 74 Resp 20 20 B/P (MAP) 160/77 (104) 161/71 (101) Pulse Ox 94 91 O2 Delivery Nasal Cannula Nasal Cannula Nasal Cannula Nasal Cannula O2 Flow Rate 3.0 3.0 3.0 3.0 03/18/19 03/18/19 03/18/19 03/18/19 18:43 19:26 20:00 20:22 Temp 98.0 98.0 Pulse 74 73 Resp 16 B/P (MAP) 161/71 142/72 (95) Pulse Ox 95 96 O2 Delivery Nasal Cannula Nasal Cannula Nasal Cannula O2 Flow Rate 3.0 3.0 3.0 03/18/19 03/19/19 03/19/19 03/19/19 23:59 03:41 07:00 08:16 Temp 98.5 97.6 98.4 98.5 97.6 98.4 Pulse 75 74 68 68 Resp 18 16 18 B/P (MAP) 121/68 (85) 140/71 (94) 173/83 (113) 173/83 Pulse Ox 95 95 95 O2 Delivery Nasal Cannula Nasal Cannula Nasal Cannula O2 Flow Rate 3.0 3.0 3.0 03/19/19 03/19/19 08:48 08:49 Pulse Ox 96 96 O2 Delivery Nasal Cannula Nasal Cannula O2 Flow Rate 3.0 3.0 Intake and Output 03/18/19 03/18/19 03/19/19 14:59 22:59 06:59 Intake Total 540 ml 390 ml 200 ml Balance 540 ml 390 ml 200 ml ANN MARIE TREVINO III DO Mar 19, 2019 10:25
[2019-03-19 11:00] VITALS: BP 171/80
[2019-03-19 15:00] VITALS: BP 151/71
[2019-03-19] MEDS: ENOXAPARIN 40 MG/0.4 ML SYRINGE. SQ SCH (17:26)
[2019-03-19 19:59] VITALS: BP_SYST 131
[2019-03-19] MEDS: ATORVASTATIN CALCIUM 10 MG TABLET. PO SCH (20:29)
[2019-03-19 23:38] VITALS: BP 136/48
[2019-03-20 03:56] VITALS: BP 143/54
[2019-03-20] MEDS: methylPREDNISolone SOD SUCC PF 40 MG/ML VIAL. IV SCH ×3 (06:05→21:03)
[2019-03-20] MEDS: ALBUTEROL SULFATE 2.5 MG/3 ML NEBU. NEB SCH ×4 (06:12→20:28)
[2019-03-20] MEDS: BUDESONIDE 0.5 MG/2 ML NEBU. NEB SCH ×2 (06:12→20:28)
[2019-03-20 07:55] VITALS: BP 147/74
[2019-03-20] MEDS: NYSTATIN TOPICAL POWDER 15GM BOTTLE. TP SCH ×2 (09:00→21:14)
[2019-03-20] MEDS: ALPRAZolam 0.25 MG TABLET PO PRN (09:22)
[2019-03-20] MEDS: LACTOBACILLUS RHAMNOSUS GG 1 CAPSULE. PO SCH ×2 (09:22→21:03)
[2019-03-20] MEDS: ASPIRIN ENTERIC COATED 81 MG TABLET.DR. PO SCH (09:22)
[2019-03-20] MEDS: CARVEDILOL 6.25 MG TABLET. PO SCH ×2 (09:23→17:28)
[2019-03-20] MEDS: POTASSIUM CHLORIDE 20 MEQ TABLET.ER. PO SCH (09:24)
--- NOTE | 2019-03-20 10:09 | PDOC ---
PULMONARY PROGRESS NOTES Subjective PT LESS SOA COUTH NON PRODUCTIVE Vitals Vital Signs Date Time Temp Pulse Resp B/P (MAP) Pulse Ox O2 Delivery O2 Flow Rate FiO2 03/20/19 09:23 69 147/74 03/20/19 07:55 97.8 20 95 Nasal Cannula 3.0 97.8 ROS: No Nausea, No Chest Pain, No Abdominal Pain General: Alert, No acute distress HEENT: Other Lungs: Crackles Cardiovascular: S1, S2 Abdomen: Soft, Non-tender Neuro Exam: Alert Extremities: Other Labs Laboratory Tests Test 03/19/19 06:40 03/19/19 07:01 Sodium Level 143 mmol/L (136-145) Potassium Level 4.5 mmol/L (3.5-5.1) Chloride Level 106 mmol/L (98-107) Carbon Dioxide Level 31 mmol/L (21-32) Anion Gap 6 (6-14) Blood Urea Nitrogen 31 mg/dL (7-20) Creatinine 1.0 mg/dL (0.6-1.0) Estimated GFR (Cockcroft-Gault) 53.2 Glucose Level 252 mg/dL (70-99) Calcium Level 8.4 mg/dL (8.5-10.1) Phosphorus Level 3.9 mg/dL (2.6-4.7) Albumin 2.2 g/dL (3.4-5.0) Nasal Screen 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) Medications Active Scripts Medications Dose Route/Sig Max Daily Dose Days Date Category Duoneb 0.5-3(2.5) Mg/3 Ml (Albuterol/Ipratropium) 3 Ml Ampul.neb 3 Ml NEB PRN Q4HRS PRN 03/17/19 Reported Nystatin 100,000 Unit/1 Ml Oral.susp 1 Rea PO BID 03/17/19 Reported Prednisone 1 Mg Tablet 10 Mg PO DAILY 3 11/29/18 Reported Probiotic (Lactobacillus Acidophilus) 1 Each Capsule 1 Each PO BID 10 11/29/18 Reported Torsemide 20 Mg Tablet 40 Mg PO BID 11/22/18 Reported Potassium Chloride 20 Meq Tablet.er 40 Meq PO DAILY 11/22/18 Reported Mucinex (Guaifenesin) 600 Mg Tablet.er 1 Tab PO BID 11/22/18 Reported Xanax (Alprazolam) 0.25 Mg Tablet 0.25 Mg PO QHS 90 11/22/18 Reported Afrin (Oxymetazoline Hcl) 30 Ml [place] 30 Ml NS PRN Q2HR PRN 11/22/18 Reported Tylenol (Acetaminophen) 325 Mg Tablet 650 Mg PO PRN Q8HRS PRN 60 04/11/16 Reported Aspir 81 (Aspirin) 81 Mg Tablet.dr 1 Tab PO DAILY 04/11/16 Reported Iron Supplement (Ferrous Sulfate) 325 Mg Tablet 1 Tab PO DAILY 11/10/15 Reported Advair 250-50 Diskus (Fluticasone/Salmeterol) 1 Each Disk.w.dev 1 Puff IH BID 05/06/15 Reported Duoneb 0.5-3(2.5) Mg/3 Ml (Albuterol/Ipratropium) 3 Ml Ampul.neb 3 Ml IH QID 90 05/06/15 Reported Pravastatin Sodium 10 Mg Tablet 1 Tab PO QHS 09/16/14 Reported Carvedilol (Carvedilol) 6.25 Mg Tablet 1 Tab PO BID 09/16/14 Reported Impression . IMPRESSION: 1. AECOPD 2. Acute and chronic hypoxemic respiratory failure. 3. Previous pneumonia.MRSA 4. Calcified mediastinal lymph nodes compatible with old granulomatous disease. 5. Qfqyslhs-tn-ezednc protein malnutrition. 6. Hypothyroidism. 7. Acute on chronic diastolic heart failure. 8. Acute kidney injury. IMPRESSION: 1. Somewhat nodular opacities in the left lower lobe and in the right lower lobe are stable since previous exam. 2. Previously seen right lower lobe infiltrate has improved. Demonstrates bilateral reticular opacities and right hemithorax volume loss are stable since the prior exam. Plan . CONTINUE THE SAME 1. REVIEWED CT WILL MONITOR FOR NOW 2. Continue current support and treatment. 3. No clinical symptoms and signs of pneumonia. 4. Continue diuresis. 5. DVT prophylaxis. 6. Steroids. SHERON URENA MD Mar 20, 2019 10:09
[2019-03-20 11:00] VITALS: BP 145/68
--- NOTE | 2019-03-20 12:14 | PDOC ---
[employer] PROGRESS NOTE Chief Complaint Chief Complaint Resp fail COPD Lung nodules REY CHF History of: Anemia, COPD, High Cholesterol, Hypertension neuropathy, angina, home ox 3L NC, Cholecystectomy History of Present Illness History of Present Illness [id number] Patient seen and examined She is up in the chair looks a little better than yesterday Reviewed pulmonary's notes Discussed with RN Pt seen and examined DW RN Pt is A&O Vitals/I&O Vitals/I&O: Vital Signs Date Time Temp Pulse Resp B/P (MAP) Pulse Ox O2 Delivery O2 Flow Rate FiO2 03/20/19 12:04 96 Nasal Cannula 3.0 03/20/19 11:00 97.9 69 18 145/68 (93) 97.9 I & O 03/19/19 03/19/19 03/20/19 14:59 22:59 06:59 Intake Total 530 ml 320 ml Balance 530 ml 320 ml Physical Exam General: Alert, Cooperative, No acute distress Heart: Regular rate, Normal S1 Lungs: Crackles Abdomen: Normal bowel sounds, Soft, No tenderness, No hepatosplenomegaly, No masses Extremities: No clubbing, No cyanosis, Normal pulses, No tenderness/swelling, Other (2+ edema) Skin: No rashes, No breakdown, No significant lesion Review of Systems Review of Systems: States she feels better less short of breath Assessment and Plan Assessmemt and Plan Problems Medical Problems: (1) Acute and chronic respiratory failure Status: Acute (2) Acute cor pulmonale Status: Acute (3) Acute exacerbation of chronic obstructive pulmonary disease (COPD) Status: Acute (4) Acute on chronic diastolic HF (heart failure) Status: Acute (5) REY (acute kidney injury) Status: Acute (6) Atelectasis Status: Acute (7) Lower extremity edema Status: Acute (8) Lung nodule Status: Acute (9) Protein-energy malnutrition Resp fail COPD Lung nodules REY CHF History of: Anemia, COPD, High Cholesterol, Hypertension neuropathy, angina, home ox 3L NC, Cholecystectomy Plan Steroids Duo nebs O2 per nasal cannula PT OT Home meds DVT prophylaxis Hope to discharge back to her facility when okay with pulmonary Per pulmonary note please see below Status: Acute 1. Somewhat nodular opacities in the left lower lobe and in the right lower lobe are stable since previous exam. 2. Previously seen right lower lobe infiltrate has improved. Demonstrates bilateral reticular opacities and right hemithorax volume loss are stable since the prior exam. Plan Plan . CONTINUE THE SAME 1. REVIEWED CT WILL MONITOR FOR NOW 2. Continue current support and treatment. 3. No clinical symptoms and signs of pneumonia. 4. Continue diuresis. 5. DVT prophylaxis. 6. Steroids Comment Review of Relevant I have reviewed the following items [place] (where applicable) has been applied. ANN MARIE TREVINO III DO Mar 20, 2019 12:14
--- NOTE | 2019-03-20 14:06 | NUR ---
SW following pt. ASHOK faxed updates to [facility]. Per RN Pulmonary has not signed off today. ASHOK notified Morelia at [facility], pt is a possible dc tomorrow.
[2019-03-20 15:00] VITALS: BP 141/66
[2019-03-20] MEDS: ENOXAPARIN 40 MG/0.4 ML SYRINGE. SQ SCH (17:29)
[2019-03-20 19:56] VITALS: BP 153/76
[2019-03-20] MEDS: ATORVASTATIN CALCIUM 10 MG TABLET. PO SCH (21:02)
[2019-03-20 23:14] VITALS: BP 146/65
[2019-03-21 03:04] VITALS: BP 140/56
[2019-03-21] MEDS: methylPREDNISolone SOD SUCC PF 40 MG/ML VIAL. IV SCH ×3 (05:44→22:26)
[2019-03-21] MEDS: BUDESONIDE 0.5 MG/2 ML NEBU. NEB SCH ×2 (07:58→20:08)
[2019-03-21] MEDS: ALBUTEROL SULFATE 2.5 MG/3 ML NEBU. NEB SCH ×4 (07:58→20:08)
[2019-03-21 07:59] VITALS: BP 174/72
[2019-03-21] MEDS: ASPIRIN ENTERIC COATED 81 MG TABLET.DR. PO SCH (08:43)
[2019-03-21] MEDS: CARVEDILOL 6.25 MG TABLET. PO SCH ×2 (08:43→17:17)
[2019-03-21] MEDS: POTASSIUM CHLORIDE 20 MEQ TABLET.ER. PO SCH (08:44)
[2019-03-21] MEDS: NYSTATIN TOPICAL POWDER 15GM BOTTLE. TP SCH ×2 (08:44→22:30)
[2019-03-21] MEDS: LACTOBACILLUS RHAMNOSUS GG 1 CAPSULE. PO SCH ×2 (08:44→22:26)
--- NOTE | 2019-03-21 10:32 | PDOC ---
[employer] PROGRESS NOTE Chief Complaint Chief Complaint Resp fail COPD Lung nodules REY CHF History of: Anemia, COPD, High Cholesterol, Hypertension neuropathy, angina, home ox 3L NC, Cholecystectomy History of Present Illness History of Present Illness [id number] Patient seen and examined She appears to be a little more short of breath and yesterday On the edge of the bed Discussed with classification case manager chart [id number] Patient seen and examined She is up in the chair looks a little better than yesterday Reviewed pulmonary's notes Discussed with RN Pt seen and examined DW RN Pt is A&O Vitals/I&O Vitals/I&O: Vital Signs Date Time Temp Pulse Resp B/P (MAP) Pulse Ox O2 Delivery O2 Flow Rate FiO2 03/21/19 08:43 67 174/72 03/21/19 08:00 Nasal Cannula 3.0 03/21/19 07:59 98.1 18 95 98.1 I & O 03/20/19 03/20/19 03/21/19 15:00 23:00 07:00 Intake Total 200 ml 700 ml Output Total 300 ml Balance 200 ml 400 ml Physical Exam General: Alert, Cooperative, No acute distress Heart: Regular rate, Normal S1 Lungs: Crackles Abdomen: Normal bowel sounds, Soft, No tenderness, No hepatosplenomegaly, No masses Extremities: No clubbing, No cyanosis, Normal pulses, No tenderness/swelling, Other (2+ edema) Skin: No rashes, No breakdown, No significant lesion Assessment and Plan Assessmemt and Plan Problems Medical Problems: (1) Acute and chronic respiratory failure Status: Acute (2) Acute cor pulmonale Status: Acute (3) Acute exacerbation of chronic obstructive pulmonary disease (COPD) Status: Acute (4) Acute on chronic diastolic HF (heart failure) Status: Acute (5) REY (acute kidney injury) Status: Acute (6) Atelectasis Status: Acute (7) Lower extremity edema Status: Acute (8) Lung nodule Status: Acute (9) Protein-energy malnutrition Status: Acute Resp fail COPD Lung nodules REY CHF History of: Anemia, COPD, High Cholesterol, Hypertension neuropathy, angina, home ox 3L NC, Cholecystectomy Plan Steroids Duo nebs O2 per nasal cannula PT OT Home meds DVT prophylaxis Discharge when okay with pulmonary Comment Review of Relevant I have reviewed the following items [place] (where applicable) has been applied. ANN MARIE TREVINO III DO Mar 21, 2019 10:32
--- NOTE | 2019-03-21 10:49 | PDOC ---
PULMONARY PROGRESS NOTES Subjective PT LESS SOA COUTH NON PRODUCTIVE Vitals Vital Signs Date Time Temp Pulse Resp B/P (MAP) Pulse Ox O2 Delivery O2 Flow Rate FiO2 03/21/19 08:43 67 174/72 03/21/19 08:00 Nasal Cannula 3.0 03/21/19 07:59 98.1 18 95 98.1 ROS: No Nausea, No Chest Pain, No Abdominal Pain General: Alert, No acute distress HEENT: Other Lungs: Crackles Cardiovascular: S1, S2 Abdomen: Soft, Non-tender Neuro Exam: Alert Extremities: Other (2+EDEMA, ANKLE, FEET) Medications Active Scripts Medications Dose Route/Sig Max Daily Dose Days Date Category Duoneb 0.5-3(2.5) Mg/3 Ml (Albuterol/Ipratropium) 3 Ml Ampul.neb 3 Ml NEB PRN Q4HRS PRN 03/17/19 Reported Nystatin 100,000 Unit/1 Ml Oral.susp 1 Rea PO BID 03/17/19 Reported Prednisone 1 Mg Tablet 10 Mg PO DAILY 3 11/29/18 Reported Probiotic (Lactobacillus Acidophilus) 1 Each Capsule 1 Each PO BID 10 11/29/18 Reported Torsemide 20 Mg Tablet 40 Mg PO BID 11/22/18 Reported Potassium Chloride 20 Meq Tablet.er 40 Meq PO DAILY 11/22/18 Reported Mucinex (Guaifenesin) 600 Mg Tablet.er 1 Tab PO BID 11/22/18 Reported Xanax (Alprazolam) 0.25 Mg Tablet 0.25 Mg PO QHS 90 11/22/18 Reported Afrin (Oxymetazoline Hcl) 30 Ml [place] 30 Ml NS PRN Q2HR PRN 11/22/18 Reported Tylenol (Acetaminophen) 325 Mg Tablet 650 Mg PO PRN Q8HRS PRN 60 04/11/16 Reported Aspir 81 (Aspirin) 81 Mg Tablet.dr 1 Tab PO DAILY 04/11/16 Reported Iron Supplement (Ferrous Sulfate) 325 Mg Tablet 1 Tab PO DAILY 11/10/15 Reported Advair 250-50 Diskus (Fluticasone/Salmeterol) 1 Each Disk.w.dev 1 Puff IH BID 05/06/15 Reported Duoneb 0.5-3(2.5) Mg/3 Ml (Albuterol/Ipratropium) 3 Ml Ampul.neb 3 Ml IH QID 90 05/06/15 Reported Pravastatin Sodium 10 Mg Tablet 1 Tab PO QHS 09/16/14 Reported Carvedilol (Carvedilol) 6.25 Mg Tablet 1 Tab PO BID 09/16/14 Reported Impression . IMPRESSION: 1. AECOPD 2. Acute and chronic hypoxemic respiratory failure./ ACUTE ON CHRONIC COR- PULMONALE 3. Previous pneumonia.MRSA 4. Calcified mediastinal lymph nodes compatible with old granulomatous disease. 5. Hddvuoco-aj-ghbwth protein malnutrition. 6. Hypothyroidism. 7. Acute on chronic diastolic heart failure. 8. Acute kidney injury. IMPRESSION: 1. Somewhat nodular opacities in the left lower lobe and in the right lower lobe are stable since previous exam. 2. Previously seen right lower lobe infiltrate has improved. Demonstrates bilateral reticular opacities and right hemithorax volume loss are stable since the prior exam. Plan . CONTINUE THE SAME 1. REVIEWED CT WILL MONITOR FOR NOW 2. Continue current support and treatment. 3. No clinical symptoms and signs of pneumonia. 4. Continue diuresis. 5. DVT prophylaxis. 6. Steroids. SHERON URENA MD Mar 21, 2019 10:49
[2019-03-21] MEDS ORDERED: FUROSEMIDE 40 MG/4 ML VIAL. IVP ONE (11:00)
[2019-03-21 11:25] VITALS: BP 147/75
[2019-03-21 15:00] VITALS: BP 176/85
[2019-03-21] MEDS: ENOXAPARIN 40 MG/0.4 ML SYRINGE. SQ SCH (17:18)
[2019-03-21 19:58] VITALS: BP 144/65
[2019-03-21] MEDS: ATORVASTATIN CALCIUM 10 MG TABLET. PO SCH (22:27)
[2019-03-21 23:45] VITALS: BP 132/48
[2019-03-22 03:45] VITALS: BP 149/61
[2019-03-22] MEDS: methylPREDNISolone SOD SUCC PF 40 MG/ML VIAL. IV SCH ×3 (06:10→21:25)
[2019-03-22 07:00] VITALS: BP 164/73
[2019-03-22] MEDS: ALBUTEROL SULFATE 2.5 MG/3 ML NEBU. NEB SCH ×4 (08:00→19:41)
[2019-03-22] MEDS: BUDESONIDE 0.5 MG/2 ML NEBU. NEB SCH ×2 (08:00→19:41)
[2019-03-22] MEDS: ASPIRIN ENTERIC COATED 81 MG TABLET.DR. PO SCH (08:33)
[2019-03-22] MEDS: CARVEDILOL 6.25 MG TABLET. PO SCH ×2 (08:34→18:04)
[2019-03-22] MEDS: LACTOBACILLUS RHAMNOSUS GG 1 CAPSULE. PO SCH ×2 (08:34→21:26)
[2019-03-22] MEDS: NYSTATIN TOPICAL POWDER 15GM BOTTLE. TP SCH ×2 (08:34→21:26)
[2019-03-22] MEDS: POTASSIUM CHLORIDE 20 MEQ TABLET.ER. PO SCH (08:34)
[2019-03-22 11:00] VITALS: BP 107/76
--- NOTE | 2019-03-22 11:48 | PDOC ---
[employer] PROGRESS NOTE Chief Complaint Chief Complaint Resp fail COPD Lung nodules REY CHF History of: Anemia, COPD, High Cholesterol, Hypertension neuropathy, angina, home ox 3L [place], Cholecystectomy History of Present Illness History of Present Illness [id number] Patient seen and examined She was resting with no apparent distress Awakens easily Discussed with senior scheduler chart [id number] Patient seen and examined She appears to be a little more short of breath and yesterday On the edge of the bed Discussed with senior scheduler chart [id number] Patient seen and examined She is up in the chair looks a little better than yesterday Reviewed pulmonary's notes Discussed with RN Pt seen and examined DW RN Pt is A&O Vitals/I&O Vitals/I&O: Vital Signs Date Time Temp Pulse Resp B/P (MAP) Pulse Ox O2 Delivery O2 Flow Rate FiO2 03/22/19 08:34 65 164/73 03/22/19 08:21 98 Nasal Cannula 3.0 03/22/19 07:00 97.9 18 97.9 I & O 03/21/19 03/21/19 03/22/19 15:00 23:00 07:00 Intake Total 350 ml 150 ml Balance 350 ml 150 ml Physical Exam General: Alert, Cooperative, No acute distress Heart: Regular rate, Normal S1 Lungs: Clear Abdomen: Normal bowel sounds, Soft, No tenderness, No hepatosplenomegaly, No masses Extremities: No clubbing, No cyanosis, Normal pulses, No tenderness/swelling, Other (2+ edema) Skin: No rashes, No breakdown, No significant lesion Review of Systems Review of Systems: No new complaints today Assessment and Plan Assessmemt and Plan Problems Medical Problems: (1) Acute and chronic respiratory failure Status: Acute (2) Acute cor pulmonale Status: Acute (3) Acute exacerbation of chronic obstructive pulmonary disease (COPD) Status: Acute (4) Acute on chronic diastolic HF (heart failure) Status: Acute (5) REY (acute kidney injury) Status: Acute (6) Atelectasis Status: Acute (7) Lower extremity edema Status: Acute (8) Lung nodule Status: Acute (9) Protein-energy malnutrition Status: Acute Resp fail COPD Lung nodules REY CHF History of: Anemia, COPD, High Cholesterol, Hypertension neuropathy, angina, home ox 3L [place], Cholecystectomy Previous pneumonia.MRSA Calcified mediastinal lymph nodes compatible with old granulomatous disease. Dxodusyz-[id number] protein malnutrition. Hypothyroidism Plan Steroids (Solu-Medrol) O2 per nasal cannula Continue to diurese Home meds PT OT if possible Full code DVT prophylaxis Appreciate pulmonary input Long-term prognosis guarded Probable care home on discharge? Comment Review of Relevant I have reviewed the following items [place] (where applicable) has been applied. ANN MARIE TREVINO III DO Mar 22, 2019 11:48
[2019-03-22 15:00] VITALS: BP 157/73
[2019-03-22] MEDS: ENOXAPARIN 40 MG/0.4 ML SYRINGE. SQ SCH (18:04)
[2019-03-22 19:45] VITALS: BP 147/60
[2019-03-22] MEDS: ATORVASTATIN CALCIUM 10 MG TABLET. PO SCH (21:26)
[2019-03-22 22:53] VITALS: BP 151/70
[2019-03-23 03:00] VITALS: BP 160/63
[2019-03-23] MEDS: methylPREDNISolone SOD SUCC PF 40 MG/ML VIAL. IV SCH ×3 (06:25→20:22)
[2019-03-23 07:00] VITALS: BP 160/70
[2019-03-23] MEDS: ALBUTEROL SULFATE 2.5 MG/3 ML NEBU. NEB SCH ×4 (08:11→18:30)
[2019-03-23] MEDS: BUDESONIDE 0.5 MG/2 ML NEBU. NEB SCH ×2 (08:11→18:30)
[2019-03-23] MEDS: ASPIRIN ENTERIC COATED 81 MG TABLET.DR. PO SCH (09:01)
[2019-03-23] MEDS: POTASSIUM CHLORIDE 20 MEQ TABLET.ER. PO SCH (09:01)
[2019-03-23] MEDS: LACTOBACILLUS RHAMNOSUS GG 1 CAPSULE. PO SCH ×2 (09:01→20:20)
[2019-03-23] MEDS: CARVEDILOL 6.25 MG TABLET. PO SCH ×2 (09:02→15:32)
[2019-03-23] MEDS: NYSTATIN TOPICAL POWDER 15GM BOTTLE. TP SCH ×2 (09:02→20:22)
--- NOTE | 2019-03-23 10:23 | PDOC ---
PULMONARY PROGRESS NOTES Subjective has sob, cough better, no pain Vitals Vital Signs Date Time Temp Pulse Resp B/P (MAP) Pulse Ox O2 Delivery O2 Flow Rate FiO2 03/23/19 09:02 69 160/70 03/23/19 08:15 Nasal Cannula 3.0 03/23/19 08:14 96 03/23/19 07:00 97.9 17 97.9 ROS: No Nausea, No Chest Pain, No Abdominal Pain General: Alert, No acute distress HEENT: Other Lungs: Wheezing Cardiovascular: S1, S2 Abdomen: Soft, Non-tender Neuro Exam: Alert Extremities: Other (2+EDEMA, ANKLE, FEET) Skin: Warm Medications Active Scripts Medications Dose Route/Sig Max Daily Dose Days Date Category Duoneb 0.5-3(2.5) Mg/3 Ml (Albuterol/Ipratropium) 3 Ml Ampul.neb 3 Ml NEB PRN Q4HRS PRN 03/17/19 Reported Nystatin 100,000 Unit/1 Ml Oral.susp 1 Rea PO BID 03/17/19 Reported Prednisone 1 Mg Tablet 10 Mg PO DAILY 3 11/29/18 Reported Probiotic (Lactobacillus Acidophilus) 1 Each Capsule 1 Each PO BID 10 11/29/18 Reported Torsemide 20 Mg Tablet 40 Mg PO BID 11/22/18 Reported Potassium Chloride 20 Meq Tablet.er 40 Meq PO DAILY 11/22/18 Reported Mucinex (Guaifenesin) 600 Mg Tablet.er 1 Tab PO BID 11/22/18 Reported Xanax (Alprazolam) 0.25 Mg Tablet 0.25 Mg PO QHS 90 11/22/18 Reported Afrin (Oxymetazoline Hcl) 30 Ml [place] 30 Ml NS PRN Q2HR PRN 11/22/18 Reported Tylenol (Acetaminophen) 325 Mg Tablet 650 Mg PO PRN Q8HRS PRN 60 04/11/16 Reported Aspir 81 (Aspirin) 81 Mg Tablet.dr 1 Tab PO DAILY 04/11/16 Reported Iron Supplement (Ferrous Sulfate) 325 Mg Tablet 1 Tab PO DAILY 11/10/15 Reported Advair 250-50 Diskus (Fluticasone/Salmeterol) 1 Each Disk.w.dev 1 Puff IH BID 05/06/15 Reported Duoneb 0.5-3(2.5) Mg/3 Ml (Albuterol/Ipratropium) 3 Ml Ampul.neb 3 Ml IH QID 90 05/06/15 Reported Pravastatin Sodium 10 Mg Tablet 1 Tab PO QHS 09/16/14 Reported Carvedilol (Carvedilol) 6.25 Mg Tablet 1 Tab PO BID 09/16/14 Reported Impression . IMPRESSION: 1. AECOPD 2. Acute and chronic hypoxemic respiratory failure./ ACUTE ON CHRONIC COR- PULMONALE 3. Previous pneumonia.MRSA 4. Calcified mediastinal lymph nodes compatible with old granulomatous disease. 5. Snxefyfb-bc-nhwvgv protein malnutrition. 6. Hypothyroidism. 7. Acute on chronic diastolic heart failure. 8. Acute kidney injury. IMPRESSION: 1. Somewhat nodular opacities in the left lower lobe and in the right lower lobe are stable since previous exam. 2. Previously seen right lower lobe infiltrate has improved. Demonstrates bilateral reticular opacities and right hemithorax volume loss are stable since the prior exam. Plan . CONTINUE THE SAME 1. REVIEWED CT WILL MONITOR FOR NOW 2. Continue current support and treatment. 3. No clinical symptoms and signs of pneumonia. 4. Continue diuresis. 5. DVT prophylaxis. 6. still wheezing, cont solumedrol 40 q 8hrs 7. increase activity discussed w pt ALAN IYER MD Mar 23, 2019 10:23
[2019-03-23 11:00] VITALS: BP 167/72
--- NOTE | 2019-03-23 11:02 | PDOC ---
PROGRESS NOTES Chief Complaint Chief Complaint impression Resp fail COPD Lung nodules Previously seen right lower lobe infiltrate has improved. Demonstrates bilateral reticular opacities and right hemithorax volume loss are stable REY CHF Doppler and Color Flow revealed mild tricuspid regurgitation.There is moderate pulmonary hypertension.The PA pressure was estimated at 49 mmHg. History of: Anemia, COPD, High Cholesterol, Hypertension neuropathy, angina, home ox 3L [place], Cholecystectomy History of Present Illness History of Present Illness [id number] Patient seen and examined She was resting with no apparent distress Awakens easily Discussed with oceanology teacher chart [id number] Patient seen and examined She appears to be a little more short of breath and yesterday On the edge of the bed Discussed with oceanology teacher chart [id number] Patient seen and examined She is up in the chair looks a little better than yesterday, slow to improve Reviewed pulmonary's notes Discussed with RN echo requested 27 min pt exam, chart review, > 50% of time spent with exam, chart review, pt care coordination Pt seen and examined DW RN Pt is A&O Vitals Vitals Vital Signs Date Time Temp Pulse Resp B/P (MAP) Pulse Ox O2 Delivery O2 Flow Rate FiO2 03/23/19 09:02 69 160/70 03/23/19 08:15 Nasal Cannula 3.0 03/23/19 08:14 96 03/23/19 07:00 97.9 17 97.9 Physical Exam General: Alert, Oriented X3, Cooperative, No acute distress Heart: Regular rate, Normal S1 Lungs: Wheezing Abdomen: Normal bowel sounds, Soft, No tenderness, No hepatosplenomegaly, No masses Extremities: No clubbing, No cyanosis, Normal pulses, No tenderness/swelling, Other (2+ edema) Skin: No rashes, No breakdown, No significant lesion Labs LABS TDI E/Lateral E' 12.1 E/Medial E' 25.2 Tricuspid Valve TR P. Velocity 337cm/s RAP ESTIMATE 3mmHg TR Peak Gr. 46mmHg RVSP 49mmHg Pulmonary Vein S1 Velocity 50.1cm/s D2 Velocity 34.4cm/s LEFT VENTRICLE The left ventricle is normal size. There is normal left ventricular wall thickness. The left ventricular systolic function is normal and the ejection fraction is within normal range. The Ejection Fraction is 55-60%. There is normal LV segmental wall motion. Transmitral Doppler flow pattern is Grade I- abnormal relaxation pattern. RIGHT VENTRICLE The right ventricle is normal size. The right ventricular systolic function is normal. ATRIA The left atrium is mildly dilated. The right atrium size is normal. The interatrial septum is intact with no evidence for an atrial septal defect or patent foramen ovale as noted on 2-D or Doppler imaging. AORTIC VALVE The aortic valve is calcified but opens well. Doppler and Color Flow revealed no significant aortic regurgitation. There is no significant aortic valvular stenosis. MITRAL VALVE The mitral valve is calcified but opens well. There is no evidence of mitral valve prolapse. There is no mitral valve stenosis. Doppler and Color-flow revealed trace to mild mitral regurgitation. TRICUSPID VALVE The tricuspid valve is normal in structure and function. Doppler and Color Flow revealed mild tricuspid regurgitation.There is moderate pulmonary hypertension.The PA pressure was estimated at 49 mmHg. There is no tricuspid valve stenosis. PULMONIC VALVE The pulmonic valve is not well visualized. Doppler and Color Flow revealed no pulmonic valvular regurgitation. There is no pulmonic valvular stenosis. GREAT VESSELS The aortic root is normal in size. The ascending aorta is not well seen. The IVC is normal in size and collapses >50% with inspiration. PERICARDIAL EFFUSION There is no evidence of significant pericardial effusion. Critical Notification Critical Value: No <Conclusion> The left ventricular systolic function is normal and the ejection fraction is within normal range. The Ejection Fraction is 55-60%. There is normal LV segmental wall motion. Doppler and Color Flow revealed mild tricuspid regurgitation.There is moderate pulmonary hypertension.The PA pressure was estimated at 49 mmHg. Signed by : renetta Schwartz Indication: Hypoxemia. Exposure: One or more of the following individualized dose reduction techniques were utilized for this examination: 1. Automated exposure control 2. Adjustment of the mA and/or kV according to patient size 3. Use of iterative reconstruction technique. Technique: Standard imaging without intravenous contrast. Comparison: 06/03/2018 CTA of the chest, although there are technique differences between the 2 exams. FINDINGS: Limited vascular examination without contrast. The aorta is calcified. Ascending aorta measures about 3.6 cm diameter stable. No descending aortic dissection. No significant lymph node enlargement. Limited hilar evaluation however due to the lack of contrast. No dominant thyroid mass. Heart size enlarged with coronary artery calcification. No evidence of significant pleural or pericardial effusion. There is some infiltrate in the right lung base but not as advanced as seen on the previous exam. There is some markings in the right lower lobe in the right upper lobe roughly similar to the previous exam. Somewhat stellate nodular opacity in the superior segment of the right lower lobe measuring about 9 mm, coronal series 5, image 48, appears unchanged since prior study. Somewhat nodular opacity in the left lung base laterally, series 3, image 44, stable since prior study. Reticular markings throughout the left lung also appear roughly similar. Trachea and mainstem bronchi are patent. There is some relative volume loss of the right hemithorax as compared with the left. Degenerative spondylosis. Severe degenerative changes of both shoulders. Scans to the upper abdomen are limited by technique. No definite acute abnormality. There is colonic diverticulosis. IMPRESSION: 1. Somewhat nodular opacities in the left lower lobe and in the right lower lobe are stable since previous exam. 2. Previously seen right lower lobe infiltrate has improved. Demonstrates bilateral reticular opacities and right hemithorax volume loss are stable since the prior exam. Electronically signed by: Finesse Garcia MD (03/18/2019 4:25 PM) [id number] Assessment and Plan Assessmemt and Plan Problems Medical Problems: (1) Acute and chronic respiratory failure Status: Acute (2) Acute cor pulmonale Status: Acute (3) Acute exacerbation of chronic obstructive pulmonary disease (COPD) Status: Acute (4) Acute on chronic diastolic HF (heart failure) Status: Acute (5) REY (acute kidney injury) Status: Acute (6) Atelectasis Status: Acute (7) Lower extremity edema Status: Acute (8) Lung nodule Status: Acute (9) Protein-energy malnutrition Status: Acute Comment Review of Relevant I have reviewed the following items [place] (where applicable) has been applied. Medications Current Medications Albuterol/ Ipratropium (Duoneb) 3 ml 1X ONCE NEB Last administered on 03/17/19 11:51; Start 03/17/19 at 11:45; Stop 03/17/19 at 11:46; Status DC Acetaminophen (Tylenol) 650 mg TID PRN PRN PO PAIN Last administered on 09:22; Start 03/17/19 at 17:00 Alprazolam (Xanax) 0.25 mg PRN Q6HRS PRN PO ANXIETY / AGITATION Last administered on 03/20/19 09:22; Start 03/17/19 at 17:00 Aspirin (Ecotrin) 81 mg DAILY PO Last administered on 03/23/19 09:01; Start 03/18/19 at 09:00 Carvedilol (Coreg) 6.25 mg BIDWMEALS PO Last administered on 03/23/19 09:02; Start 03/17/19 at 17:00 Guaifenesin (Mucinex) 600 mg BID PO Last administered on 03/23/19 09:01; Start 03/17/19 at 21:00 Albuterol Sulfate (Ventolin Neb Soln) 2.5 mg PRN Q4HRS PRN NEB SHORTNESS OF BREATH; Start 03/17/19 at 17:00 Lactobacillus Rhamnosus (Culturelle) 1 cap BID PO Last administered on 03/23/19 09:01; Start 03/17/19 at 21:00 Magnesium Hydroxide (Milk Of Magnesia) 2,400 mg PRN Q12HR PRN PO CONSTIPATION; Start 03/17/19 at 17:00 Nystatin (Nystop) 1 rea BID TP Last administered on 03/23/19 09:02; Start 03/17/19 at 21:00 Budesonide (Pulmicort) 0.5 mg RTBID NEB Last administered on 03/23/19 08:11; Start 03/17/19 at 20:00 Non-Formulary Medication (Lactobacillus Acidophilus (Probiotic)) 1 each BID PO ; Start 03/17/19 at 21:00; Status UNV Potassium Chloride (Klor-Con) 40 meq DAILYWBKFT PO Last administered on 03/23/19 09:01; Start 03/18/19 at 08:00 Atorvastatin Calcium (Lipitor) 5 mg QHS PO Last administered on 03/22/19 21:26; Start 03/17/19 at 21:00 Methylprednisolone Sodium Succinate (SOLU-Medrol 40MG VIAL) 40 mg Q8HRS IV Last administered on 03/23/19 06:25; Start 03/17/19 at 17:00 Enoxaparin Sodium (Lovenox 30mg Syringe) 30 mg Q24H SQ Last administered on 03/17/19at 17:55; Start 03/17/19 at 17:00; Stop 03/18/19 at 10:56; Status DC Albuterol Sulfate (Ventolin Neb Soln) 2.5 mg RTQID NEB Last administered on 03/23/19at 08:11; Start 03/17/19 at 20:00 Enoxaparin Sodium (Lovenox 40mg Syringe) 40 mg Q24H SQ Last administered on 03/22/19at 18:04; Start 03/18/19 at 17:00 Furosemide (Lasix) 40 mg 1X ONCE IVP Last administered on 03/21/19at 11:26; Start 03/21/19 at 11:00; Stop 03/21/19 at 11:01; Status DC Active Scripts Active Reported Duoneb 0.5-3(2.5) Mg/3 Ml (Albuterol/Ipratropium) 3 Ml Ampul.neb 3 Ml NEB PRN Q4HRS PRN Nystatin 100,000 Unit/1 Ml Oral.susp 1 Rea PO BID Prednisone 1 Mg Tablet 10 Mg PO DAILY 3 Days Probiotic (Lactobacillus Acidophilus) 1 Each Capsule 1 Each PO BID 10 Days Torsemide 20 Mg Tablet 40 Mg PO BID Potassium Chloride 20 Meq Tablet.er 40 Meq PO DAILY Mucinex (Guaifenesin) 600 Mg Tablet.er 1 Tab PO BID Xanax (Alprazolam) 0.25 Mg Tablet 0.25 Mg PO QHS 90 Days Afrin (Oxymetazoline Hcl) 30 Ml [place] 30 Ml NS PRN Q2HR PRN Tylenol (Acetaminophen) 325 Mg Tablet 650 Mg PO PRN Q8HRS PRN 60 Days Aspir 81 (Aspirin) 81 Mg Tablet. 1 Tab PO DAILY Iron Supplement (Ferrous Sulfate) 325 Mg Tablet 1 Tab PO DAILY Advair 250-50 Diskus (Fluticasone/Salmeterol) 1 Each Disk.w.dev 1 Puff IH BID Duoneb 0.5-3(2.5) Mg/3 Ml (Albuterol/Ipratropium) 3 Ml Ampul.neb 3 Ml IH QID 90 Days Pravastatin Sodium 10 Mg Tablet 1 Tab PO QHS Carvedilol (Carvedilol) 6.25 Mg Tablet 1 Tab PO BID Vitals/I & O Vital Sign - Last 24 Hours 03/22/19 03/22/19 03/22/19 03/22/19 12:39 15:00 16:36 18:04 Temp 98.0 98.0 Pulse 68 68 Resp 18 B/P (MAP) 157/73 (101) 157/73 Pulse Ox 97 O2 Delivery Nasal Cannula Nasal Cannula Nasal Cannula O2 Flow Rate 3.0 3.0 3.0 03/22/19 03/22/19 03/22/19 03/22/19 19:41 19:43 19:45 20:20 Temp 98.0 98.0 Pulse 66 Resp 16 B/P (MAP) 147/60 (89) Pulse Ox 96 96 98 O2 Delivery Nasal Cannula Nasal Cannula Nasal Cannula Nasal Cannula O2 Flow Rate 3.0 3.0 3.0 3.0 03/22/19 03/23/19 03/23/19 03/23/19 22:53 03:00 07:00 08:14 Temp 98.2 98.1 97.9 98.2 98.1 97.9 Pulse 65 63 69 Resp 16 18 17 B/P (MAP) 151/70 (97) 160/63 (95) 160/70 (100) Pulse Ox 96 92 95 96 O2 Delivery Nasal Cannula Nasal Cannula Nasal Cannula Nasal Cannula O2 Flow Rate 3.0 3.0 3.0 3.0 03/23/19 03/23/19 08:15 09:02 Pulse 69 B/P (MAP) 160/70 O2 Delivery Nasal Cannula O2 Flow Rate 3.0 Intake and Output 03/22/19 03/22/19 03/23/19 14:59 22:59 06:59 Intake Total 120 ml Balance 120 ml FAITH BEAN MD Mar 23, 2019 11:02
[2019-03-23] MEDS ORDERED: DEXTROSE 50% 25 GM / 50ML DISP.SYRIN. IV PRN (12:00)
[2019-03-23] MEDS: INSULIN LISPRO 300 UNITS/3 ML INSULN.PEN. SQ SCH ×2 (13:15→17:06)
[2019-03-23] MEDS ORDERED: FUROSEMIDE 40 MG/4 ML VIAL. IVP ONE (13:30)
[2019-03-23 15:00] VITALS: BP 160/68
[2019-03-23 15:10] LABS: BASE EXCESS COOX 4 mmol/L (-3-3); HCO3 COOX 30 mmol/L (21-28); METHEMOGLOBIN 0.3 % (0.0-1.9); OXYHEMOGLOBIN 95.4 %; PCO2 COOX 54 mmHg (35-46); PO2 COOX 92 mmHg (65-108); SAT O2 COOX 96 % (92-99)
[2019-03-23] MEDS: ENOXAPARIN 40 MG/0.4 ML SYRINGE. SQ SCH (17:01)
[2019-03-23 18:06] LABS: BASO % 0 % (0-3); EOS % 0 % (0-3); HEMATOCRIT 40.1 % (36.0-47.0); HEMOGLOBIN 13.1 g/dL (12.0-15.5); LYMPH # 0.9 x10^3/uL (1.0-4.8); LYMPH % 8 % (24-48); MEAN CORPUSCULAR HEMOGLOBIN 28 pg (25-35); MEAN CORPUSCULAR HGB CONC 33 g/dL (31-37); MEAN CORPUSCULAR VOLUME 85 fL (79-100); MONO # 0.6 x10^3/uL (0.0-1.1); MONO % 6 % (0-9); NEUT # 9.8 x10^3uL (1.8-7.7); NEUT % 86 % (31-73); PLATELET COUNT 211 x10^3/uL (140-400); RED BLOOD COUNT 4.69 x10^6/uL (3.50-5.40); RED CELL DISTRIBUTION WIDTH 14.7 % (11.5-14.5); WHITE BLOOD COUNT 11.4 x10^3/uL (4.0-11.0)
[2019-03-23 18:23] LABS: ALBUMIN 2.6 g/dL (3.4-5.0); ALBUMIN/GLOBULIN RATIO 0.6 (1.0-1.7); CALCIUM 8.4 mg/dL (8.5-10.1); CREATININE 1.4 mg/dL (0.6-1.0); GFR 36.1; POTASSIUM 5.2 mmol/L (3.5-5.1); TOTAL BILIRUBIN 0.4 mg/dL (0.2-1.0); TOTAL PROTEIN 6.8 g/dL (6.4-8.2)
[2019-03-23 19:44] LABS: % BANDS 6 % (0-9); % LYMPHS 4 % (24-48); % METAS 1 % (0-0); % MONOS 2 % (0-10); % SEGS 87 % (35-66); PLT ESTIMATE ADEQUATE (ADEQUATE)
[2019-03-23 19:50] VITALS: BP 103/61
[2019-03-23] MEDS: ATORVASTATIN CALCIUM 10 MG TABLET. PO SCH (20:22)
[2019-03-23] MEDS ORDERED: INSULIN LISPRO 300 UNITS/3 ML INSULN.PEN. SQ ONE (23:00)
[2019-03-23 23:49] VITALS: BP 155/62
[2019-03-24 03:45] VITALS: BP 144/55
[2019-03-24] MEDS: methylPREDNISolone SOD SUCC PF 40 MG/ML VIAL. IV SCH ×2 (05:02→22:05)
[2019-03-24 07:00] VITALS: BP 185/86
[2019-03-24] MEDS: POTASSIUM CHLORIDE 20 MEQ TABLET.ER. PO SCH (08:00)
[2019-03-24] MEDS: BUDESONIDE 0.5 MG/2 ML NEBU. NEB SCH ×2 (08:47→20:00)
[2019-03-24] MEDS: ALBUTEROL SULFATE 2.5 MG/3 ML NEBU. NEB SCH ×4 (08:47→20:00)
[2019-03-24] MEDS: NYSTATIN TOPICAL POWDER 15GM BOTTLE. TP SCH ×2 (09:00→22:07)
--- NOTE | 2019-03-24 09:00 | PDOC ---
PULMONARY PROGRESS NOTES Subjective sob is better, has less cough, no pain Vitals Vital Signs Date Time Temp Pulse Resp B/P (MAP) Pulse Ox O2 Delivery O2 Flow Rate FiO2 03/24/19 08:49 96 Nasal Cannula 3.0 03/24/19 03:45 98.3 64 18 144/55 (84) 98.3 ROS: No Nausea, No Chest Pain, No Abdominal Pain General: Alert, No acute distress HEENT: Other (nc at perrl) Lungs: Crackles Cardiovascular: S1, S2 Abdomen: Soft, Non-tender Neuro Exam: Alert Extremities: Other (2+EDEMA, ANKLE, FEET) Skin: Warm Labs Laboratory Tests Test 03/23/19 11:40 03/23/19 15:00 03/23/19 16:45 03/23/19 17:44 Glucose (Fingerstick) 254 mg/dL (70-99) 307 mg/dL (70-99) O2 Saturation 96 % (92-99) Arterial Blood pH 7.37 (7.35-7.45) Arterial Blood pCO2 at Patient Temp 54 mmHg (35-46) Arterial Blood pO2 at Patient Temp 92 mmHg (65-108) Arterial Blood HCO3 30 mmol/L (21-28) Arterial Blood Base Excess 4 mmol/L (-3-3) Oxyhemoglobin 95.4 % Methemoglobin 0.3 % (0.0-1.9) Carbon Monoxide, Quantitative 0.3 % (0.0-1.9) FiO2 32 White Blood Count 11.4 x10^3/uL (4.0-11.0) Red Blood Count 4.69 x10^6/uL (3.50-5.40) Hemoglobin 13.1 g/dL (12.0-15.5) Hematocrit 40.1 % (36.0-47.0) Mean Corpuscular Volume 85 fL (79-100) Mean Corpuscular Hemoglobin 28 pg (25-35) Mean Corpuscular Hemoglobin Concent 33 g/dL (31-37) Red Cell Distribution Width 14.7 % (11.5-14.5) Platelet Count 211 x10^3/uL (140-400) Neutrophils (%) (Auto) 86 % (31-73) Lymphocytes (%) (Auto) 8 % (24-48) Monocytes (%) (Auto) 6 % (0-9) Eosinophils (%) (Auto) 0 % (0-3) Basophils (%) (Auto) 0 % (0-3) Neutrophils # (Auto) 9.8 x10^3uL (1.8-7.7) Lymphocytes # (Auto) 0.9 x10^3/uL (1.0-4.8) Monocytes # (Auto) 0.6 x10^3/uL (0.0-1.1) Eosinophils # (Auto) 0.0 x10^3/uL (0.0-0.7) Basophils # (Auto) 0.0 x10^3/uL (0.0-0.2) Segmented Neutrophils % 87 % (35-66) Band Neutrophils % 6 % (0-9) Lymphocytes % 4 % (24-48) Monocytes % 2 % (0-10) Metamyelocytes % 1 % (0-0) Platelet Estimate Adequate (ADEQUATE) Sodium Level 136 mmol/L (136-145) Potassium Level 5.2 mmol/L (3.5-5.1) Chloride Level 100 mmol/L (98-107) Carbon Dioxide Level 32 mmol/L (21-32) Anion Gap 4 (6-14) Blood Urea Nitrogen 46 mg/dL (7-20) Creatinine 1.4 mg/dL (0.6-1.0) Estimated GFR (Cockcroft-Gault) 36.1 BUN/Creatinine Ratio 33 (6-20) Glucose Level 330 mg/dL (70-99) Calcium Level 8.4 mg/dL (8.5-10.1) Magnesium Level 2.3 mg/dL (1.8-2.4) Total Bilirubin 0.4 mg/dL (0.2-1.0) Aspartate Amino Transf (AST/SGOT) 18 U/L (15-37) Alanine Aminotransferase (ALT/SGPT) 34 U/L (14-59) Alkaline Phosphatase 72 U/L (46-116) Total Protein 6.8 g/dL (6.4-8.2) Albumin 2.6 g/dL (3.4-5.0) Albumin/Globulin Ratio 0.6 (1.0-1.7) Test 03/23/19 20:16 03/23/19 23:42 03/24/19 04:35 03/24/19 08:23 Glucose (Fingerstick) 308 mg/dL (70-99) 257 mg/dL (70-99) 244 mg/dL (70-99) Potassium Level 4.6 mmol/L (3.5-5.1) Laboratory Tests Test 03/23/19 11:40 03/23/19 15:00 03/23/19 16:45 03/23/19 17:44 Glucose (Fingerstick) 254 mg/dL (70-99) 307 mg/dL (70-99) O2 Saturation 96 % (92-99) Arterial Blood pH 7.37 (7.35-7.45) Arterial Blood pCO2 at Patient Temp 54 mmHg (35-46) Arterial Blood pO2 at Patient Temp 92 mmHg (65-108) Arterial Blood HCO3 30 mmol/L (21-28) Arterial Blood Base Excess 4 mmol/L (-3-3) Oxyhemoglobin 95.4 % Methemoglobin 0.3 % (0.0-1.9) Carbon Monoxide, Quantitative 0.3 % (0.0-1.9) FiO2 32 White Blood Count 11.4 x10^3/uL (4.0-11.0) Red Blood Count 4.69 x10^6/uL (3.50-5.40) Hemoglobin 13.1 g/dL (12.0-15.5) Hematocrit 40.1 % (36.0-47.0) Mean Corpuscular Volume 85 fL (79-100) Mean Corpuscular Hemoglobin 28 pg (25-35) Mean Corpuscular Hemoglobin Concent 33 g/dL (31-37) Red Cell Distribution Width 14.7 % (11.5-14.5) Platelet Count 211 x10^3/uL (140-400) Neutrophils (%) (Auto) 86 % (31-73) Lymphocytes (%) (Auto) 8 % (24-48) Monocytes (%) (Auto) 6 % (0-9) Eosinophils (%) (Auto) 0 % (0-3) Basophils (%) (Auto) 0 % (0-3) Neutrophils # (Auto) 9.8 x10^3uL (1.8-7.7) Lymphocytes # (Auto) 0.9 x10^3/uL (1.0-4.8) Monocytes # (Auto) 0.6 x10^3/uL (0.0-1.1) Eosinophils # (Auto) 0.0 x10^3/uL (0.0-0.7) Basophils # (Auto) 0.0 x10^3/uL (0.0-0.2) Segmented Neutrophils % 87 % (35-66) Band Neutrophils % 6 % (0-9) Lymphocytes % 4 % (24-48) Monocytes % 2 % (0-10) Metamyelocytes % 1 % (0-0) Platelet Estimate Adequate (ADEQUATE) Sodium Level 136 mmol/L (136-145) Potassium Level 5.2 mmol/L (3.5-5.1) Chloride Level 100 mmol/L (98-107) Carbon Dioxide Level 32 mmol/L (21-32) Anion Gap 4 (6-14) Blood Urea Nitrogen 46 mg/dL (7-20) Creatinine 1.4 mg/dL (0.6-1.0) Estimated GFR (Cockcroft-Gault) 36.1 BUN/Creatinine Ratio 33 (6-20) Glucose Level 330 mg/dL (70-99) Calcium Level 8.4 mg/dL (8.5-10.1) Magnesium Level 2.3 mg/dL (1.8-2.4) Total Bilirubin 0.4 mg/dL (0.2-1.0) Aspartate Amino Transf (AST/SGOT) 18 U/L (15-37) Alanine Aminotransferase (ALT/SGPT) 34 U/L (14-59) Alkaline Phosphatase 72 U/L (46-116) Total Protein 6.8 g/dL (6.4-8.2) Albumin 2.6 g/dL (3.4-5.0) Albumin/Globulin Ratio 0.6 (1.0-1.7) Test 03/23/19 20:16 03/23/19 23:42 03/24/19 04:35 03/24/19 08:23 Glucose (Fingerstick) 308 mg/dL (70-99) 257 mg/dL (70-99) 244 mg/dL (70-99) Potassium Level 4.6 mmol/L (3.5-5.1) Medications Active Scripts Medications Dose Route/Sig Max Daily Dose Days Date Category Duoneb 0.5-3(2.5) Mg/3 Ml (Albuterol/Ipratropium) 3 Ml Ampul.neb 3 Ml NEB PRN Q4HRS PRN 03/17/19 Reported Nystatin 100,000 Unit/1 Ml Oral.susp 1 Rea PO BID 03/17/19 Reported Prednisone 1 Mg Tablet 10 Mg PO DAILY 3 11/29/18 Reported Probiotic (Lactobacillus Acidophilus) 1 Each Capsule 1 Each PO BID 10 11/29/18 Reported Torsemide 20 Mg Tablet 40 Mg PO BID 11/22/18 Reported Potassium Chloride 20 Meq Tablet.er 40 Meq PO DAILY 11/22/18 Reported Mucinex (Guaifenesin) 600 Mg Tablet.er 1 Tab PO BID 11/22/18 Reported Xanax (Alprazolam) 0.25 Mg Tablet 0.25 Mg PO QHS 90 11/22/18 Reported Afrin (Oxymetazoline Hcl) 30 Ml [place] 30 Ml NS PRN Q2HR PRN 11/22/18 Reported Tylenol (Acetaminophen) 325 Mg Tablet 650 Mg PO PRN Q8HRS PRN 60 04/11/16 Reported Aspir 81 (Aspirin) 81 Mg Tablet.dr 1 Tab PO DAILY 04/11/16 Reported Iron Supplement (Ferrous Sulfate) 325 Mg Tablet 1 Tab PO DAILY 11/10/15 Reported Advair 250-50 Diskus (Fluticasone/Salmeterol) 1 Each Disk.w.dev 1 Puff IH BID 05/06/15 Reported Duoneb 0.5-3(2.5) Mg/3 Ml (Albuterol/Ipratropium) 3 Ml Ampul.neb 3 Ml IH QID 90 05/06/15 Reported Pravastatin Sodium 10 Mg Tablet 1 Tab PO QHS 09/16/14 Reported Carvedilol (Carvedilol) 6.25 Mg Tablet 1 Tab PO BID 09/16/14 Reported Impression . IMPRESSION: 1. AECOPD 2. Acute and chronic hypoxemic respiratory failure./ ACUTE ON CHRONIC COR- PULMONALE 3. Previous pneumonia.MRSA 4. Calcified mediastinal lymph nodes compatible with old granulomatous disease. 5. Lnfxsymj-[id number] protein malnutrition. 6. Hypothyroidism. 7. Acute on chronic diastolic heart failure. 8. Acute kidney injury. IMPRESSION: 1. Somewhat nodular opacities in the left lower lobe and in the right lower lobe are stable since previous exam. 2. Previously seen right lower lobe infiltrate has improved. Demonstrates bilateral reticular opacities and right hemithorax volume loss are stable since the prior exam. Plan . CONTINUE THE SAME 1. REVIEWED CT WILL MONITOR FOR NOW 2. Continue current support and treatment. 3. No clinical symptoms and signs of pneumonia. 4. Continue diuresis. 5. DVT prophylaxis. 6. change solumedrol to 40 q 12hrs 7. increase activity discussed w ALAN Godinez MD Mar 24, 2019 09:00
[2019-03-24] MEDS: ASPIRIN ENTERIC COATED 81 MG TABLET.DR. PO SCH (09:17)
[2019-03-24] MEDS: CARVEDILOL 6.25 MG TABLET. PO SCH ×2 (09:18→17:00)
[2019-03-24] MEDS: LACTOBACILLUS RHAMNOSUS GG 1 CAPSULE. PO SCH ×2 (09:18→22:12)
[2019-03-24] MEDS: INSULIN LISPRO 300 UNITS/3 ML INSULN.PEN. SQ SCH ×3 (09:24→18:13)
[2019-03-24 11:00] VITALS: BP 151/65
--- NOTE | 2019-03-24 11:01 | PDOC ---
PROGRESS NOTES Chief Complaint Chief Complaint impression Resp fail COPD Lung nodules Previously seen right lower lobe infiltrate has improved. Demonstrates bilateral reticular opacities and right hemithorax volume loss are stable REY CHF Doppler and Color Flow revealed mild tricuspid regurgitation.There is moderate pulmonary hypertension.The PA pressure was estimated at 49 mmHg. History of: Anemia, COPD, High Cholesterol, Hypertension neuropathy, angina, home ox 3L NC, Cholecystectomy History of Present Illness History of Present Illness [id number] Patient seen and examined She was resting with no apparent distress Awakens easily Discussed with bone puller chart [id number] Patient seen and examined She appears to be a little more short of breath and yesterday On the edge of the bed Discussed with bone puller chart [id number] Patient seen and examined She is up in the chair looks a little better than yesterday, slow to improve Reviewed pulmonary's notes Discussed with RN echo requested She is up in the bed, slow to improve Reviewed pulmonary's notes Discussed with RN echo requested, pending 28 min pt exam, chart review, > 50% of time spent with exam, chart review, pt care coordination Pt seen and examined DW RN Pt is A&O Vitals Vitals Vital Signs Date Time Temp Pulse Resp B/P (MAP) Pulse Ox O2 Delivery O2 Flow Rate FiO2 03/24/19 09:18 113 185/86 03/24/19 08:49 96 Nasal Cannula 3.0 03/24/19 07:00 97.7 24 97.7 Physical Exam General: Alert, Oriented X3, Cooperative, No acute distress Heart: Regular rate, Normal S1 Lungs: Crackles Abdomen: Normal bowel sounds, Soft, No tenderness, No hepatosplenomegaly, No masses Extremities: No clubbing, No cyanosis, Normal pulses, No tenderness/swelling, Other (2+ edema) Skin: No rashes, No breakdown, No significant lesion Labs LABS CT CHEST WO CONTRAST Indication: Hypoxemia. Exposure: One or more of the following individualized dose reduction techniques were utilized for this examination: 1. Automated exposure control 2. Adjustment of the mA and/or kV according to patient size 3. Use of iterative reconstruction technique. Technique: Standard imaging without intravenous contrast. Comparison: 06/03/2018 CTA of the chest, although there are technique differences between the 2 exams. FINDINGS: Limited vascular examination without contrast. The aorta is calcified. Ascending aorta measures about 3.6 cm diameter stable. No descending aortic dissection. No significant lymph node enlargement. Limited hilar evaluation however due to the lack of contrast. No dominant thyroid mass. Heart size enlarged with coronary artery calcification. No evidence of significant pleural or pericardial effusion. There is some infiltrate in the right lung base but not as advanced as seen on the previous exam. There is some markings in the right lower lobe in the right upper lobe roughly similar to the previous exam. Somewhat stellate nodular opacity in the superior segment of the right lower lobe measuring about 9 mm, coronal series 5, image 48, appears unchanged since prior study. Somewhat nodular opacity in the left lung base laterally, series 3, image 44, stable since prior study. Reticular markings throughout the left lung also appear roughly similar. Trachea and mainstem bronchi are patent. There is some relative volume loss of the right hemithorax as compared with the left. Degenerative spondylosis. Severe degenerative changes of both shoulders. Scans to the upper abdomen are limited by technique. No definite acute abnormality. There is colonic diverticulosis. IMPRESSION: 1. Somewhat nodular opacities in the left lower lobe and in the right lower lobe are stable since previous exam. 2. Previously seen right lower lobe infiltrate has improved. Demonstrates bilateral reticular opacities and right hemithorax volume loss are stable since the prior exam. Laboratory Tests Test 03/23/19 11:40 03/23/19 15:00 03/23/19 16:45 03/23/19 17:44 Glucose (Fingerstick) 254 mg/dL (70-99) 307 mg/dL (70-99) O2 Saturation 96 % (92-99) Arterial Blood pH 7.37 (7.35-7.45) Arterial Blood pCO2 at Patient Temp 54 mmHg (35-46) Arterial Blood pO2 at Patient Temp 92 mmHg (65-108) Arterial Blood HCO3 30 mmol/L (21-28) Arterial Blood Base Excess 4 mmol/L (-3-3) Oxyhemoglobin 95.4 % Methemoglobin 0.3 % (0.0-1.9) Carbon Monoxide, Quantitative 0.3 % (0.0-1.9) FiO2 32 White Blood Count 11.4 x10^3/uL (4.0-11.0) Red Blood Count 4.69 x10^6/uL (3.50-5.40) Hemoglobin 13.1 g/dL (12.0-15.5) Hematocrit 40.1 % (36.0-47.0) Mean Corpuscular Volume 85 fL (79-100) Mean Corpuscular Hemoglobin 28 pg (25-35) Mean Corpuscular Hemoglobin Concent 33 g/dL (31-37) Red Cell Distribution Width 14.7 % (11.5-14.5) Platelet Count 211 x10^3/uL (140-400) Neutrophils (%) (Auto) 86 % (31-73) Lymphocytes (%) (Auto) 8 % (24-48) Monocytes (%) (Auto) 6 % (0-9) Eosinophils (%) (Auto) 0 % (0-3) Basophils (%) (Auto) 0 % (0-3) Neutrophils # (Auto) 9.8 x10^3uL (1.8-7.7) Lymphocytes # (Auto) 0.9 x10^3/uL (1.0-4.8) Monocytes # (Auto) 0.6 x10^3/uL (0.0-1.1) Eosinophils # (Auto) 0.0 x10^3/uL (0.0-0.7) Basophils # (Auto) 0.0 x10^3/uL (0.0-0.2) Segmented Neutrophils % 87 % (35-66) Band Neutrophils % 6 % (0-9) Lymphocytes % 4 % (24-48) Monocytes % 2 % (0-10) Metamyelocytes % 1 % (0-0) Platelet Estimate Adequate (ADEQUATE) Sodium Level 136 mmol/L (136-145) Potassium Level 5.2 mmol/L (3.5-5.1) Chloride Level 100 mmol/L (98-107) Carbon Dioxide Level 32 mmol/L (21-32) Anion Gap 4 (6-14) Blood Urea Nitrogen 46 mg/dL (7-20) Creatinine 1.4 mg/dL (0.6-1.0) Estimated GFR (Cockcroft-Gault) 36.1 BUN/Creatinine Ratio 33 (6-20) Glucose Level 330 mg/dL (70-99) Calcium Level 8.4 mg/dL (8.5-10.1) Magnesium Level 2.3 mg/dL (1.8-2.4) Total Bilirubin 0.4 mg/dL (0.2-1.0) Aspartate Amino Transf (AST/SGOT) 18 U/L (15-37) Alanine Aminotransferase (ALT/SGPT) 34 U/L (14-59) Alkaline Phosphatase 72 U/L (46-116) Total Protein 6.8 g/dL (6.4-8.2) Albumin 2.6 g/dL (3.4-5.0) Albumin/Globulin Ratio 0.6 (1.0-1.7) Test 03/23/19 20:16 03/23/19 23:42 03/24/19 04:35 03/24/19 08:23 Glucose (Fingerstick) 308 mg/dL (70-99) 257 mg/dL (70-99) 244 mg/dL (70-99) Potassium Level 4.6 mmol/L (3.5-5.1) Assessment and Plan Assessmemt and Plan Problems Medical Problems: (1) Acute and chronic respiratory failure Status: Acute (2) Acute cor pulmonale Status: Acute (3) Acute exacerbation of chronic obstructive pulmonary disease (COPD) Status: Acute (4) Acute on chronic diastolic HF (heart failure) Status: Acute (5) REY (acute kidney injury) Status: Acute (6) Atelectasis Status: Acute (7) Lower extremity edema Status: Acute (8) Lung nodule Status: Acute (9) Protein-energy malnutrition Status: Acute Comment Review of Relevant I have reviewed the following items [place] (where applicable) has been applied. Labs Laboratory Tests Test 03/23/19 11:40 03/23/19 15:00 03/23/19 16:45 03/23/19 17:44 Glucose (Fingerstick) 254 mg/dL (70-99) 307 mg/dL (70-99) O2 Saturation 96 % (92-99) Arterial Blood pH 7.37 (7.35-7.45) Arterial Blood pCO2 at Patient Temp 54 mmHg (35-46) Arterial Blood pO2 at Patient Temp 92 mmHg (65-108) Arterial Blood HCO3 30 mmol/L (21-28) Arterial Blood Base Excess 4 mmol/L (-3-3) Oxyhemoglobin 95.4 % Methemoglobin 0.3 % (0.0-1.9) Carbon Monoxide, Quantitative 0.3 % (0.0-1.9) FiO2 32 White Blood Count 11.4 x10^3/uL (4.0-11.0) Red Blood Count 4.69 x10^6/uL (3.50-5.40) Hemoglobin 13.1 g/dL (12.0-15.5) Hematocrit 40.1 % (36.0-47.0) Mean Corpuscular Volume 85 fL (79-100) Mean Corpuscular Hemoglobin 28 pg (25-35) Mean Corpuscular Hemoglobin Concent 33 g/dL (31-37) Red Cell Distribution Width 14.7 % (11.5-14.5) Platelet Count 211 x10^3/uL (140-400) Neutrophils (%) (Auto) 86 % (31-73) Lymphocytes (%) (Auto) 8 % (24-48) Monocytes (%) (Auto) 6 % (0-9) Eosinophils (%) (Auto) 0 % (0-3) Basophils (%) (Auto) 0 % (0-3) Neutrophils # (Auto) 9.8 x10^3uL (1.8-7.7) Lymphocytes # (Auto) 0.9 x10^3/uL (1.0-4.8) Monocytes # (Auto) 0.6 x10^3/uL (0.0-1.1) Eosinophils # (Auto) 0.0 x10^3/uL (0.0-0.7) Basophils # (Auto) 0.0 x10^3/uL (0.0-0.2) Segmented Neutrophils % 87 % (35-66) Band Neutrophils % 6 % (0-9) Lymphocytes % 4 % (24-48) Monocytes % 2 % (0-10) Metamyelocytes % 1 % (0-0) Platelet Estimate Adequate (ADEQUATE) Sodium Level 136 mmol/L (136-145) Potassium Level 5.2 mmol/L (3.5-5.1) Chloride Level 100 mmol/L (98-107) Carbon Dioxide Level 32 mmol/L (21-32) Anion Gap 4 (6-14) Blood Urea Nitrogen 46 mg/dL (7-20) Creatinine 1.4 mg/dL (0.6-1.0) Estimated GFR (Cockcroft-Gault) 36.1 BUN/Creatinine Ratio 33 (6-20) Glucose Level 330 mg/dL (70-99) Calcium Level 8.4 mg/dL (8.5-10.1) Magnesium Level 2.3 mg/dL (1.8-2.4) Total Bilirubin 0.4 mg/dL (0.2-1.0) Aspartate Amino Transf (AST/SGOT) 18 U/L (15-37) Alanine Aminotransferase (ALT/SGPT) 34 U/L (14-59) Alkaline Phosphatase 72 U/L (46-116) Total Protein 6.8 g/dL (6.4-8.2) Albumin 2.6 g/dL (3.4-5.0) Albumin/Globulin Ratio 0.6 (1.0-1.7) Test 03/23/19 20:16 03/23/19 23:42 03/24/19 04:35 03/24/19 08:23 Glucose (Fingerstick) 308 mg/dL (70-99) 257 mg/dL (70-99) 244 mg/dL (70-99) Potassium Level 4.6 mmol/L (3.5-5.1) Laboratory Tests Test 03/23/19 11:40 03/23/19 15:00 03/23/19 16:45 03/23/19 17:44 Glucose (Fingerstick) 254 mg/dL (70-99) 307 mg/dL (70-99) O2 Saturation 96 % (92-99) Arterial Blood pH 7.37 (7.35-7.45) Arterial Blood pCO2 at Patient Temp 54 mmHg (35-46) Arterial Blood pO2 at Patient Temp 92 mmHg (65-108) Arterial Blood HCO3 30 mmol/L (21-28) Arterial Blood Base Excess 4 mmol/L (-3-3) Oxyhemoglobin 95.4 % Methemoglobin 0.3 % (0.0-1.9) Carbon Monoxide, Quantitative 0.3 % (0.0-1.9) FiO2 32 White Blood Count 11.4 x10^3/uL (4.0-11.0) Red Blood Count 4.69 x10^6/uL (3.50-5.40) Hemoglobin 13.1 g/dL (12.0-15.5) Hematocrit 40.1 % (36.0-47.0) Mean Corpuscular Volume 85 fL (79-100) Mean Corpuscular Hemoglobin 28 pg (25-35) Mean Corpuscular Hemoglobin Concent 33 g/dL (31-37) Red Cell Distribution Width 14.7 % (11.5-14.5) Platelet Count 211 x10^3/uL (140-400) Neutrophils (%) (Auto) 86 % (31-73) Lymphocytes (%) (Auto) 8 % (24-48) Monocytes (%) (Auto) 6 % (0-9) Eosinophils (%) (Auto) 0 % (0-3) Basophils (%) (Auto) 0 % (0-3) Neutrophils # (Auto) 9.8 x10^3uL (1.8-7.7) Lymphocytes # (Auto) 0.9 x10^3/uL (1.0-4.8) Monocytes # (Auto) 0.6 x10^3/uL (0.0-1.1) Eosinophils # (Auto) 0.0 x10^3/uL (0.0-0.7) Basophils # (Auto) 0.0 x10^3/uL (0.0-0.2) Segmented Neutrophils % 87 % (35-66) Band Neutrophils % 6 % (0-9) Lymphocytes % 4 % (24-48) Monocytes % 2 % (0-10) Metamyelocytes % 1 % (0-0) Platelet Estimate Adequate (ADEQUATE) Sodium Level 136 mmol/L (136-145) Potassium Level 5.2 mmol/L (3.5-5.1) Chloride Level 100 mmol/L (98-107) Carbon Dioxide Level 32 mmol/L (21-32) Anion Gap 4 (6-14) Blood Urea Nitrogen 46 mg/dL (7-20) Creatinine 1.4 mg/dL (0.6-1.0) Estimated GFR (Cockcroft-Gault) 36.1 BUN/Creatinine Ratio 33 (6-20) Glucose Level 330 mg/dL (70-99) Calcium Level 8.4 mg/dL (8.5-10.1) Magnesium Level 2.3 mg/dL (1.8-2.4) Total Bilirubin 0.4 mg/dL (0.2-1.0) Aspartate Amino Transf (AST/SGOT) 18 U/L (15-37) Alanine Aminotransferase (ALT/SGPT) 34 U/L (14-59) Alkaline Phosphatase 72 U/L (46-116) Total Protein 6.8 g/dL (6.4-8.2) Albumin 2.6 g/dL (3.4-5.0) Albumin/Globulin Ratio 0.6 (1.0-1.7) Test 03/23/19 20:16 03/23/19 23:42 03/24/19 04:35 03/24/19 08:23 Glucose (Fingerstick) 308 mg/dL (70-99) 257 mg/dL (70-99) 244 mg/dL (70-99) Potassium Level 4.6 mmol/L (3.5-5.1) Medications Current Medications Albuterol/ Ipratropium (Duoneb) 3 ml 1X ONCE NEB Last administered on 03/17/19 11:51; Start 03/17/19 at 11:45; Stop 03/17/19 at 11:46; Status DC Acetaminophen (Tylenol) 650 mg TID PRN PRN PO PAIN Last administered on 03/20/19 09:22; Start 03/17/19 at 17:00 Alprazolam (Xanax) 0.25 mg PRN Q6HRS PRN PO ANXIETY / AGITATION Last administered on 03/20/19 09:22; Start 03/17/19 at 17:00 Aspirin (Ecotrin) 81 mg DAILY PO Last administered on 03/24/19 09:17; Start 03/18/19 at 09:00 Carvedilol (Coreg) 6.25 mg BIDWMEALS PO Last administered on 03/24/19 09:18; Start 03/17/19 at 17:00 Guaifenesin (Mucinex) 600 mg BID PO Last administered on 03/24/19 09:17; Start 03/17/19 at 21:00 Albuterol Sulfate (Ventolin Neb Soln) 2.5 mg PRN Q4HRS PRN NEB SHORTNESS OF BREATH; Start 03/17/19 at 17:00 Lactobacillus Rhamnosus (Culturelle) 1 cap BID PO Last administered on 03/24/19 09:18; Start 03/17/19 at 21:00 Magnesium Hydroxide (Milk Of Magnesia) 2,400 mg PRN Q12HR PRN PO CONSTIPATION; Start 03/17/19 at 17:00 Nystatin (Nystop) 1 rea BID TP Last administered on 03/23/19 09:02; Start 03/17/19 at 21:00 Budesonide (Pulmicort) 0.5 mg RTBID NEB Last administered on 03/24/19at 08:47; Start 03/17/19 at 20:00 Non-Formulary Medication (Lactobacillus Acidophilus (Probiotic)) 1 each BID PO ; Start 03/17/19 at 21:00; Status UNV Potassium Chloride (Klor-Con) 40 meq DAILYWBKFT PO Last administered on 03/23/19 at 09:01; Start 03/18/19 at 08:00; Status Future Hold Atorvastatin Calcium (Lipitor) 5 mg QHS PO Last administered on 03/23/19at 20:22; Start 03/17/19 at 21:00 Methylprednisolone Sodium Succinate (SOLU-Medrol 40MG VIAL) 40 mg Q8HRS IV Last administered on 03/24/19 05:02; Start 03/17/19 at 17:00; Stop 03/24/19 at 09:01; Status DC Enoxaparin Sodium (Lovenox 30mg Syringe) 30 mg Q24H SQ Last administered on 03/17/19at 17:55; Start 03/17/19 at 17:00; Stop 03/18/19 at 10:56; Status DC Albuterol Sulfate (Ventolin Neb Soln) 2.5 mg RTQID NEB Last administered on 03/24/19at 08:47; Start 03/17/19 at 20:00 Enoxaparin Sodium (Lovenox 40mg Syringe) 40 mg Q24H SQ Last administered on 03/23/19at 17:01; Start 03/18/19 at 17:00 Furosemide (Lasix) 40 mg 1X ONCE IVP Last administered on 03/21/19at 11:26; Start 03/21/19 at 11:00; Stop 03/21/19 at 11:01; Status DC Insulin Human Lispro (HumaLOG) 0-5 UNITS TIDWMEALS SQ Last administered on 03/24/19at 09:24; Start 03/23/19 at 12:00 Dextrose (Dextrose 50%-Water Syringe) 12.5 gm PRN Q15MIN PRN IV SEE COMMENTS; Start 03/23/19 at 12:00 Furosemide (Lasix) 40 mg 1X ONCE IVP Last administered on 03/23/19at 15:41; Start 03/23/19 at 13:30; Stop 03/23/19 at 13:31; Status DC Insulin Human Lispro (HumaLOG) 6 units 1X ONCE SQ Last administered on 9at 22:42; Start 03/23/19 at 23:00; Stop 03/23/19 at 23:01; Status DC Methylprednisolone Sodium Succinate (SOLU-Medrol 40MG VIAL) 40 mg Q12HR IV ; Start 03/24/19 at 21:00 Active Scripts Active Reported Duoneb 0.5-3(2.5) Mg/3 Ml (Albuterol/Ipratropium) 3 Ml Ampul.neb 3 Ml NEB PRN Q4HRS PRN Nystatin 100,000 Unit/1 Ml Oral.susp 1 Rea PO BID Prednisone 1 Mg Tablet 10 Mg PO DAILY 3 Days Probiotic (Lactobacillus Acidophilus) 1 Each Capsule 1 Each PO BID 10 Days Torsemide 20 Mg Tablet 40 Mg PO BID Potassium Chloride 20 Meq Tablet.er 40 Meq PO DAILY Mucinex (Guaifenesin) 600 Mg Tablet.er 1 Tab PO BID Xanax (Alprazolam) 0.25 Mg Tablet 0.25 Mg PO QHS 90 Days Afrin (Oxymetazoline Hcl) 30 Ml Justice 30 Ml NS PRN Q2HR PRN Tylenol (Acetaminophen) 325 Mg Tablet 650 Mg PO PRN Q8HRS PRN 60 Days Aspir 81 (Aspirin) 81 Mg Tablet.dr 1 Tab PO DAILY Iron Supplement (Ferrous Sulfate) 325 Mg Tablet 1 Tab PO DAILY Advair 250-50 Diskus (Fluticasone/Salmeterol) 1 Each Disk.w.dev 1 Puff IH BID Duoneb 0.5-3(2.5) Mg/3 Ml (Albuterol/Ipratropium) 3 Ml Ampul.neb 3 Ml IH QID 90 Days Pravastatin Sodium 10 Mg Tablet 1 Tab PO QHS Carvedilol (Carvedilol) 6.25 Mg Tablet 1 Tab PO BID Vitals/I & O Vital Sign - Last 24 Hours 03/23/19 03/23/19 03/23/19 03/23/19 12:42 15:00 16:23 18:30 Temp 98.2 98.2 Pulse 66 Resp 19 B/P (MAP) 160/68 (98) Pulse Ox 96 96 96 96 O2 Delivery Nasal Cannula Nasal Cannula Nasal Cannula Nasal Cannula O2 Flow Rate 3.0 3.0 3.0 3.0 03/23/19 03/23/19 03/23/19 03/24/19 19:50 20:00 23:49 03:45 Temp 97.7 98.0 98.3 97.7 98.0 98.3 Pulse 94 68 64 Resp 18 18 18 B/P (MAP) 103/61 (75) 155/62 (93) 144/55 (84) Pulse Ox 96 95 95 O2 Delivery Nasal Cannula Nasal Cannula Nasal Cannula Nasal Cannula O2 Flow Rate 3.0 3.0 3.0 3.0 03/24/19 03/24/19 03/24/19 03/24/19 07:00 08:00 08:49 09:18 Temp 97.7 97.7 Pulse 24 113 Resp 24 B/P (MAP) 185/86 (119) 185/86 Pulse Ox 94 96 O2 Delivery Nasal Cannula Nasal Cannula Nasal Cannula O2 Flow Rate 3.0 3.0 3.0 Intake and Output 03/23/19 03/23/19 03/24/19 14:59 22:59 06:59 Intake Total 380 ml 230 ml 0 ml Output Total 300 ml Balance 380 ml -70 ml 0 ml FAITH BEAN MD Mar 24, 2019 11:01
--- NOTE | 2019-03-24 12:09 | PDOC2 ---
CONSULT Date of Consult Date of Consult DATE: 03/24/19 TIME: 12:09 Reason for Consult Reason for Consult: Nonsustained ventricular tachycardia Referring Physician Referring Physician: Dr. Sykes Identification/Chief Complaint Chief Complaint Shortness of breath Source Source: Chart review, Patient History of Present Illness Reason for Visit: 79-year-old female with history of COPD and interstitial lung disease with multiple admissions to [facility] for acute on chronic respiratory failure presented with progressive dyspnea and was found to be hypoxic. She was found to have acute on chronic respiratory failure secondary to acute COPD exacerbation and admitted for further management. She was found to have brief nonsustained ventricular tachycardia on telemetry and hence we have been consulted. She denied any palpitations or chest pain as such. She also denied any syncope. Past Medical History Cardiovascular: HTN Pulmonary: COPD CENTRAL NERVOUS SYSTEM: Periperal neuropathy GI: No pertinent hx Heme/Onc: Anemia NOS Hepatobiliary: No pertinent hx Psych: No pertinent hx Musculoskeletal: Osteoarthritis Rheumatologic: No pertinent hx Infectious disease: No pertinent hx Renal/: No pertinent hx Past Surgical History Past Surgical History: Cholecystectomy Family History Family History: Coronary Artery Disease Social History Social History: Parent ALCOHOL: none Drugs: None Lives: with Family Domestic Violence: Neg Current Problem List Problem List Problems Medical Problems: (1) Acute and chronic respiratory failure Status: Acute (2) Acute cor pulmonale Status: Acute (3) Acute exacerbation of chronic obstructive pulmonary disease (COPD) Status: Acute (4) Acute on chronic diastolic HF (heart failure) Status: Acute (5) REY (acute kidney injury) Status: Acute (6) Atelectasis Status: Acute (7) Lower extremity edema Status: Acute (8) Lung nodule Status: Acute (9) Protein-energy malnutrition Status: Acute Current Medications Current Medications Current Medications Albuterol/ Ipratropium (Duoneb) 3 ml 1X ONCE NEB Last administered on 03/17/19at 11:51; Start 03/17/19 at 11:45; Stop 03/17/19 at 11:46; Status DC Acetaminophen (Tylenol) 650 mg TID PRN PRN PO PAIN Last administered on 03/20/19at 09:22; Start 03/17/19 at 17:00 Alprazolam (Xanax) 0.25 mg PRN Q6HRS PRN PO ANXIETY / AGITATION Last administered on 03/20/19at 09:22; Start 03/17/19 at 17:00 Aspirin (Ecotrin) 81 mg DAILY PO Last administered on 03/24/19 09:17; Start 03/18/19 at 09:00 Carvedilol (Coreg) 6.25 mg BIDWMEALS PO Last administered on 03/24/19 09:18; Start 03/17/19 at 17:00 Guaifenesin (Mucinex) 600 mg BID PO Last administered on 03/24/19 09:17; Start 03/17/19 at 21:00 Albuterol Sulfate (Ventolin Neb Soln) 2.5 mg PRN Q4HRS PRN NEB SHORTNESS OF BREATH; Start 03/17/19 at 17:00 Lactobacillus Rhamnosus (Culturelle) 1 cap BID PO Last administered on 03/24/19 09:18; Start 03/17/19 at 21:00 Magnesium Hydroxide (Milk Of Magnesia) 2,400 mg PRN Q12HR PRN PO CONSTIPATION; Start 03/17/19 at 17:00 Nystatin (Nystop) 1 rea BID TP Last administered on 03/23/19 09:02; Start 03/17/19 at 21:00 Budesonide (Pulmicort) 0.5 mg RTBID NEB Last administered on 03/24/19 08:47; Start 03/17/19 at 20:00 Non-Formulary Medication (Lactobacillus Acidophilus (Probiotic)) 1 each BID PO ; Start 03/17/19 at 21:00; Status UNV Potassium Chloride (Klor-Con) 40 meq DAILYWBKFT PO Last administered on 03/23/19 09:01; Start 03/18/19 at 08:00; Status Future hold Atorvastatin Calcium (Lipitor) 5 mg QHS PO Last administered on 03/23/19 20:22; Start 03/17/19 at 21:00 Methylprednisolone Sodium Succinate (SOLU-Medrol 40MG VIAL) 40 mg Q8HRS IV Last administered on 03/24/19 05:02; Start 03/17/19 at 17:00; Stop 03/24/19 at 09:01; Status DC Enoxaparin Sodium (Lovenox 30mg Syringe) 30 mg Q24H SQ Last administered on 03/17/19at 17:55; Start 03/17/19 at 17:00; Stop 03/18/19 at 10:56; Status DC Albuterol Sulfate (Ventolin Neb Soln) 2.5 mg RTQID NEB Last administered on 03/24/19at 08:47; Start 03/17/19 at 20:00 Enoxaparin Sodium (Lovenox 40mg Syringe) 40 mg Q24H SQ Last administered on 03/23/19at 17:01; Start 03/18/19 at 17:00 Furosemide (Lasix) 40 mg 1X ONCE IVP Last administered on 03/21/19at 11:26; Start 03/21/19 at 11:00; Stop 03/21/19 at 11:01; Status DC Insulin Human Lispro (HumaLOG) 0-5 UNITS TIDWMEALS SQ Last administered on 03/24/19at 09:24; Start 03/23/19 at 12:00 Dextrose (Dextrose 50%-Water Syringe) 12.5 gm PRN Q15MIN PRN IV SEE COMMENTS; Start 03/23/19 at 12:00 Furosemide (Lasix) 40 mg 1X ONCE IVP Last administered on 03/23/19at 15:41; Start 03/23/19 at 13:30; Stop 03/23/19 at 13:31; Status DC Insulin Human Lispro (HumaLOG) 6 units 1X ONCE SQ Last administered on 03/23/19at 22:42; Start 03/23/19 at 23:00; Stop 03/23/19 at 23:01; Status DC Methylprednisolone Sodium Succinate (SOLU-Medrol 40MG VIAL) 40 mg Q12HR IV ; Start 03/24/19 at 21:00 Active Scripts Active Reported Duoneb 0.5-3(2.5) Mg/3 Ml (Albuterol/Ipratropium) 3 Ml Ampul.neb 3 Ml NEB PRN Q4HRS PRN Nystatin 100,000 Unit/1 Ml Oral.susp 1 Rea PO BID Prednisone 1 Mg Tablet 10 Mg PO DAILY 3 Days Probiotic (Lactobacillus Acidophilus) 1 Each Capsule 1 Each PO BID 10 Days Torsemide 20 Mg Tablet 40 Mg PO BID Potassium Chloride 20 Meq Tablet.er 40 Meq PO DAILY Mucinex (Guaifenesin) 600 Mg Tablet.er 1 Tab PO BID Xanax (Alprazolam) 0.25 Mg Tablet 0.25 Mg PO QHS 90 Days Afrin (Oxymetazoline Hcl) 30 Ml [place] 30 Ml NS PRN Q2HR PRN Tylenol (Acetaminophen) 325 Mg Tablet 650 Mg PO PRN Q8HRS PRN 60 Days Aspir 81 (Aspirin) 81 Mg Tablet. 1 Tab PO DAILY Iron Supplement (Ferrous Sulfate) 325 Mg Tablet 1 Tab PO DAILY Advair 250-50 Diskus (Fluticasone/Salmeterol) 1 Each Disk.w.dev 1 Puff IH BID Duoneb 0.5-3(2.5) Mg/3 Ml (Albuterol/Ipratropium) 3 Ml Ampul.neb 3 Ml IH QID 90 Days Pravastatin Sodium 10 Mg Tablet 1 Tab PO QHS Carvedilol (Carvedilol) 6.25 Mg Tablet 1 Tab PO BID Allergies Allergies: Coded Allergies: doxycycline (Verified Allergy, Intermediate, Rash, 02/16/18) rash this admit suspected from doxycycline I S O L A T I O N *CONTACT* (Verified Allergy, Unknown, 12/12/16) +MRSA nasal screen 12/09/16 ROS PSYCHOLOGICAL ROS: No: Hallucinations Eyes: No Loss of vision ENDOCRINE: No: Palpitations Respiratory: YES: Shortness of breath; No: Hemoptysis Cardiovascular: No Chest Pain Gastrointestinal: No Vomiting, No Diarrhea Genitourinary: No Hematuria Neurological: No Seizures Skin: No Rash Physical Exam General: Alert HEENT: Atraumatic, PERRLA Lungs: Other (fine crepts bilaterally) Heart: Regular rate Abdomen: Soft, No tenderness Extremities: Other (trace edema) Psych/Mental Status: Mood NL Vitals VITALS Vital Signs Date Time Temp Pulse Resp B/P (MAP) Pulse Ox O2 Delivery O2 Flow Rate FiO2 03/24/19 09:18 113 185/86 03/24/19 08:49 96 Nasal Cannula 3.0 03/24/19 07:00 97.7 24 97.7 Labs Labs Laboratory Tests Test 03/23/19 11:40 03/23/19 15:00 03/23/19 16:45 03/23/19 17:44 Glucose (Fingerstick) 254 mg/dL (70-99) 307 mg/dL (70-99) O2 Saturation 96 % (92-99) Arterial Blood pH 7.37 (7.35-7.45) Arterial Blood pCO2 at Patient Temp 54 mmHg (35-46) Arterial Blood pO2 at Patient Temp 92 mmHg (65-108) Arterial Blood HCO3 30 mmol/L (21-28) Arterial Blood Base Excess 4 mmol/L (-3-3) Oxyhemoglobin 95.4 % Methemoglobin 0.3 % (0.0-1.9) Carbon Monoxide, Quantitative 0.3 % (0.0-1.9) FiO2 32 White Blood Count 11.4 x10^3/uL (4.0-11.0) Red Blood Count 4.69 x10^6/uL (3.50-5.40) Hemoglobin 13.1 g/dL (12.0-15.5) Hematocrit 40.1 % (36.0-47.0) Mean Corpuscular Volume 85 fL (79-100) Mean Corpuscular Hemoglobin 28 pg (25-35) Mean Corpuscular Hemoglobin Concent 33 g/dL (31-37) Red Cell Distribution Width 14.7 % (11.5-14.5) Platelet Count 211 x10^3/uL (140-400) Neutrophils (%) (Auto) 86 % (31-73) Lymphocytes (%) (Auto) 8 % (24-48) Monocytes (%) (Auto) 6 % (0-9) Eosinophils (%) (Auto) 0 % (0-3) Basophils (%) (Auto) 0 % (0-3) Neutrophils # (Auto) 9.8 x10^3uL (1.8-7.7) Lymphocytes # (Auto) 0.9 x10^3/uL (1.0-4.8) Monocytes # (Auto) 0.6 x10^3/uL (0.0-1.1) Eosinophils # (Auto) 0.0 x10^3/uL (0.0-0.7) Basophils # (Auto) 0.0 x10^3/uL (0.0-0.2) Segmented Neutrophils % 87 % (35-66) Band Neutrophils % 6 % (0-9) Lymphocytes % 4 % (24-48) Monocytes % 2 % (0-10) Metamyelocytes % 1 % (0-0) Platelet Estimate Adequate (ADEQUATE) Sodium Level 136 mmol/L (136-145) Potassium Level 5.2 mmol/L (3.5-5.1) Chloride Level 100 mmol/L (98-107) Carbon Dioxide Level 32 mmol/L (21-32) Anion Gap 4 (6-14) Blood Urea Nitrogen 46 mg/dL (7-20) Creatinine 1.4 mg/dL (0.6-1.0) Estimated GFR (Cockcroft-Gault) 36.1 BUN/Creatinine Ratio 33 (6-20) Glucose Level 330 mg/dL (70-99) Calcium Level 8.4 mg/dL (8.5-10.1) Magnesium Level 2.3 mg/dL (1.8-2.4) Total Bilirubin 0.4 mg/dL (0.2-1.0) Aspartate Amino Transf (AST/SGOT) 18 U/L (15-37) Alanine Aminotransferase (ALT/SGPT) 34 U/L (14-59) Alkaline Phosphatase 72 U/L (46-116) Total Protein 6.8 g/dL (6.4-8.2) Albumin 2.6 g/dL (3.4-5.0) Albumin/Globulin Ratio 0.6 (1.0-1.7) Test 03/23/19 20:16 03/23/19 23:42 03/24/19 04:35 03/24/19 08:23 Glucose (Fingerstick) 308 mg/dL (70-99) 257 mg/dL (70-99) 244 mg/dL (70-99) Potassium Level 4.6 mmol/L (3.5-5.1) Laboratory Tests Test 03/23/19 15:00 03/23/19 16:45 03/23/19 17:44 03/23/19 20:16 O2 Saturation 96 % (92-99) Arterial Blood pH 7.37 (7.35-7.45) Arterial Blood pCO2 at Patient Temp 54 mmHg (35-46) Arterial Blood pO2 at Patient Temp 92 mmHg (65-108) Arterial Blood HCO3 30 mmol/L (21-28) Arterial Blood Base Excess 4 mmol/L (-3-3) Oxyhemoglobin 95.4 % Methemoglobin 0.3 % (0.0-1.9) Carbon Monoxide, Quantitative 0.3 % (0.0-1.9) FiO2 32 Glucose (Fingerstick) 307 mg/dL (70-99) 308 mg/dL (70-99) White Blood Count 11.4 x10^3/uL (4.0-11.0) Red Blood Count 4.69 x10^6/uL (3.50-5.40) Hemoglobin 13.1 g/dL (12.0-15.5) Hematocrit 40.1 % (36.0-47.0) Mean Corpuscular Volume 85 fL (79-100) Mean Corpuscular Hemoglobin 28 pg (25-35) Mean Corpuscular Hemoglobin Concent 33 g/dL (31-37) Red Cell Distribution Width 14.7 % (11.5-14.5) Platelet Count 211 x10^3/uL (140-400) Neutrophils (%) (Auto) 86 % (31-73) Lymphocytes (%) (Auto) 8 % (24-48) Monocytes (%) (Auto) 6 % (0-9) Eosinophils (%) (Auto) 0 % (0-3) Basophils (%) (Auto) 0 % (0-3) Neutrophils # (Auto) 9.8 x10^3uL (1.8-7.7) Lymphocytes # (Auto) 0.9 x10^3/uL (1.0-4.8) Monocytes # (Auto) 0.6 x10^3/uL (0.0-1.1) Eosinophils # (Auto) 0.0 x10^3/uL (0.0-0.7) Basophils # (Auto) 0.0 x10^3/uL (0.0-0.2) Segmented Neutrophils % 87 % (35-66) Band Neutrophils % 6 % (0-9) Lymphocytes % 4 % (24-48) Monocytes % 2 % (0-10) Metamyelocytes % 1 % (0-0) Platelet Estimate Adequate (ADEQUATE) Sodium Level 136 mmol/L (136-145) Potassium Level 5.2 mmol/L (3.5-5.1) Chloride Level 100 mmol/L (98-107) Carbon Dioxide Level 32 mmol/L (21-32) Anion Gap 4 (6-14) Blood Urea Nitrogen 46 mg/dL (7-20) Creatinine 1.4 mg/dL (0.6-1.0) Estimated GFR (Cockcroft-Gault) 36.1 BUN/Creatinine Ratio 33 (6-20) Glucose Level 330 mg/dL (70-99) Calcium Level 8.4 mg/dL (8.5-10.1) Magnesium Level 2.3 mg/dL (1.8-2.4) Total Bilirubin 0.4 mg/dL (0.2-1.0) Aspartate Amino Transf (AST/SGOT) 18 U/L (15-37) Alanine Aminotransferase (ALT/SGPT) 34 U/L (14-59) Alkaline Phosphatase 72 U/L (46-116) Total Protein 6.8 g/dL (6.4-8.2) Albumin 2.6 g/dL (3.4-5.0) Albumin/Globulin Ratio 0.6 (1.0-1.7) Test 03/23/19 23:42 03/24/19 04:35 03/24/19 08:23 Glucose (Fingerstick) 257 mg/dL (70-99) 244 mg/dL (70-99) Potassium Level 4.6 mmol/L (3.5-5.1) Assessment/Plan Assessment/Plan 1. Acute on chronic respiratory failure secondary to acute COPD exacerbation and interstitial lung disease. Continue current treatment per pulmonary team. 2. Cardiac arrhythmia: Telemetry showed brief episodes of wide compress tachycardia that was thought to be nonsustained ventricular tachycardia. However this is irregular it could be atrial fibrillation with aberrancy. Since it is very brief, we will observe for now. We will consider event monitor as an outpatient. Recent 2-D echo in August 2018 showed LVEF 55-60%. 3. Chronic diastolic heart failure, clinically well compensated. 4. Hypertension: Controlled. 5. Hyperlipidemia: Continue statin therapy Thank you for your consultation EMRE DANG MD Mar 24, 2019 12:09
[2019-03-24 15:00] VITALS: BP 138/103
[2019-03-24] MEDS ORDERED: FUROSEMIDE 40 MG/4 ML VIAL. IVP ONE (15:00)
[2019-03-24] MEDS: ENOXAPARIN 40 MG/0.4 ML SYRINGE. SQ SCH (18:09)
[2019-03-24 19:50] VITALS: BP 140/71
[2019-03-24] MEDS ORDERED: INSULIN LISPRO 300 UNITS/3 ML INSULN.PEN. SQ ONE (22:00)
[2019-03-24] MEDS: ALPRAZolam 0.25 MG TABLET PO PRN (22:03)
[2019-03-24] MEDS: ATORVASTATIN CALCIUM 10 MG TABLET. PO SCH (22:04)
[2019-03-24 23:50] VITALS: BP 126/41
[2019-03-25 03:15] VITALS: BP 145/68
[2019-03-25 03:53] LABS: BASO % 0 % (0-3); EOS % 0 % (0-3); HEMATOCRIT 37.3 % (36.0-47.0); HEMOGLOBIN 12.2 g/dL (12.0-15.5); LYMPH # 0.8 x10^3/uL (1.0-4.8); LYMPH % 7 % (24-48); MEAN CORPUSCULAR HEMOGLOBIN 28 pg (25-35); MEAN CORPUSCULAR HGB CONC 33 g/dL (31-37); MEAN CORPUSCULAR VOLUME 84 fL (79-100); MONO # 0.4 x10^3/uL (0.0-1.1); MONO % 3 % (0-9); NEUT # 10.1 x10^3uL (1.8-7.7); NEUT % 90 % (31-73); PLATELET COUNT 172 x10^3/uL (140-400); RED BLOOD COUNT 4.43 x10^6/uL (3.50-5.40); RED CELL DISTRIBUTION WIDTH 14.7 % (11.5-14.5); WHITE BLOOD COUNT 11.3 x10^3/uL (4.0-11.0)
[2019-03-25 04:23] LABS: ALBUMIN 2.2 g/dL (3.4-5.0); CALCIUM 8.1 mg/dL (8.5-10.1); GFR 53.2; PHOSPHORUS 3.8 mg/dL (2.6-4.7); POTASSIUM 4.1 mmol/L (3.5-5.1)
[2019-03-25 07:30] VITALS: BP 143/50
[2019-03-25] MEDS: POTASSIUM CHLORIDE 20 MEQ TABLET.ER. PO SCH (08:00)
[2019-03-25] MEDS: BUDESONIDE 0.5 MG/2 ML NEBU. NEB SCH (08:00)
[2019-03-25] MEDS: ALBUTEROL SULFATE 2.5 MG/3 ML NEBU. NEB SCH ×3 (08:00→16:24)
[2019-03-25] MEDS: ASPIRIN ENTERIC COATED 81 MG TABLET.DR. PO SCH (08:30)
[2019-03-25] MEDS: LACTOBACILLUS RHAMNOSUS GG 1 CAPSULE. PO SCH (08:30)
[2019-03-25] MEDS: CARVEDILOL 6.25 MG TABLET. PO SCH ×2 (08:30→16:39)
[2019-03-25] MEDS: methylPREDNISolone SOD SUCC PF 40 MG/ML VIAL. IV SCH (08:31)
[2019-03-25] MEDS: INSULIN LISPRO 300 UNITS/3 ML INSULN.PEN. SQ SCH ×3 (08:36→16:42)
--- NOTE | 2019-03-25 08:46 | PDOC ---
PROGRESS NOTES Chief Complaint Chief Complaint impression Resp fail COPD Lung nodules Previously seen right lower lobe infiltrate has improved. Demonstrates bilateral reticular opacities and right hemithorax volume loss are stable REY CHF Doppler and Color Flow revealed mild tricuspid regurgitation.There is moderate pulmonary hypertension.The PA pressure was estimated at 49 mmHg. History of: Anemia, COPD, High Cholesterol, Hypertension neuropathy, angina, home ox 3L NC, Cholecystectomy History of Present Illness History of Present Illness Ms Schwartz is an 78-year-old female w/PMHx CHF and ILD/COPD with multiple admissions to the hospital for the same, the most recent 2 months ago who returns from SNF with worsening shortness of breath with cough. Then she was noted with worsening hypoxia She received 2 breathing treatments prior to arrival which did not help. O2 sat 85 on arrival even on her 3L. At SNF normally on 2L of NCO2, but has been up to 3L on a prior hospital stay. RR mildly increased on 4 L by nasal cannula, no leukocytosis, HR normal, afebrile. EKG obtained in ED shows a regular rhythm with probable p waves before every qrs likely sinus though variable baseline present with a regular rate. She feels better today, feels like her normal self. D/C to SNF Vitals Vitals Vital Signs Date Time Temp Pulse Resp B/P (MAP) Pulse Ox O2 Delivery O2 Flow Rate FiO2 03/25/19 08:30 71 143/50 03/25/19 08:04 100 Nasal Cannula 3.0 03/25/19 07:30 98.2 20 98.2 Physical Exam General: Alert Heart: Regular rate Lungs: Crackles Abdomen: Soft, No tenderness Extremities: Other (trace edema) Skin: No rashes, No breakdown, No significant lesion Labs LABS Laboratory Tests Test 03/24/19 11:55 03/24/19 17:24 03/24/19 19:12 03/25/19 03:05 Glucose (Fingerstick) 249 mg/dL (70-99) 233 mg/dL (70-99) 279 mg/dL (70-99) White Blood Count 11.3 x10^3/uL (4.0-11.0) Red Blood Count 4.43 x10^6/uL (3.50-5.40) Hemoglobin 12.2 g/dL (12.0-15.5) Hematocrit 37.3 % (36.0-47.0) Mean Corpuscular Volume 84 fL (79-100) Mean Corpuscular Hemoglobin 28 pg (25-35) Mean Corpuscular Hemoglobin Concent 33 g/dL (31-37) Red Cell Distribution Width 14.7 % (11.5-14.5) Platelet Count 172 x10^3/uL (140-400) Neutrophils (%) (Auto) 90 % (31-73) Lymphocytes (%) (Auto) 7 % (24-48) Monocytes (%) (Auto) 3 % (0-9) Eosinophils (%) (Auto) 0 % (0-3) Basophils (%) (Auto) 0 % (0-3) Neutrophils # (Auto) 10.1 x10^3uL (1.8-7.7) Lymphocytes # (Auto) 0.8 x10^3/uL (1.0-4.8) Monocytes # (Auto) 0.4 x10^3/uL (0.0-1.1) Eosinophils # (Auto) 0.0 x10^3/uL (0.0-0.7) Basophils # (Auto) 0.0 x10^3/uL (0.0-0.2) Sodium Level 142 mmol/L (136-145) Potassium Level 4.1 mmol/L (3.5-5.1) Chloride Level 103 mmol/L (98-107) Carbon Dioxide Level 35 mmol/L (21-32) Anion Gap 4 (6-14) Blood Urea Nitrogen 43 mg/dL (7-20) Creatinine 1.0 mg/dL (0.6-1.0) Estimated GFR (Cockcroft-Gault) 53.2 Glucose Level 124 mg/dL (70-99) Calcium Level 8.1 mg/dL (8.5-10.1) Phosphorus Level 3.8 mg/dL (2.6-4.7) Albumin 2.2 g/dL (3.4-5.0) Test 03/25/19 07:26 Glucose (Fingerstick) 218 mg/dL (70-99) Assessment and Plan Assessmemt and Plan Problems Medical Problems: (1) Acute and chronic respiratory failure Status: Acute (2) Acute cor pulmonale Status: Acute (3) Acute exacerbation of chronic obstructive pulmonary disease (COPD) Status: Acute (4) Acute on chronic diastolic HF (heart failure) Status: Acute (5) REY (acute kidney injury) Status: Acute (6) Atelectasis Status: Acute (7) Lower extremity edema Status: Acute (8) Lung nodule Status: Acute (9) Protein-energy malnutrition Status: Acute Comment Review of Relevant I have reviewed the following items [place] (where applicable) has been applied. Labs Laboratory Tests Test 03/23/19 11:40 03/23/19 15:00 03/23/19 16:45 03/23/19 17:44 Glucose (Fingerstick) 254 mg/dL (70-99) 307 mg/dL (70-99) O2 Saturation 96 % (92-99) Arterial Blood pH 7.37 (7.35-7.45) Arterial Blood pCO2 at Patient Temp 54 mmHg (35-46) Arterial Blood pO2 at Patient Temp 92 mmHg (65-108) Arterial Blood HCO3 30 mmol/L (21-28) Arterial Blood Base Excess 4 mmol/L (-3-3) Oxyhemoglobin 95.4 % Methemoglobin 0.3 % (0.0-1.9) Carbon Monoxide, Quantitative 0.3 % (0.0-1.9) FiO2 32 White Blood Count 11.4 x10^3/uL (4.0-11.0) Red Blood Count 4.69 x10^6/uL (3.50-5.40) Hemoglobin 13.1 g/dL (12.0-15.5) Hematocrit 40.1 % (36.0-47.0) Mean Corpuscular Volume 85 fL (79-100) Mean Corpuscular Hemoglobin 28 pg (25-35) Mean Corpuscular Hemoglobin Concent 33 g/dL (31-37) Red Cell Distribution Width 14.7 % (11.5-14.5) Platelet Count 211 x10^3/uL (140-400) Neutrophils (%) (Auto) 86 % (31-73) Lymphocytes (%) (Auto) 8 % (24-48) Monocytes (%) (Auto) 6 % (0-9) Eosinophils (%) (Auto) 0 % (0-3) Basophils (%) (Auto) 0 % (0-3) Neutrophils # (Auto) 9.8 x10^3uL (1.8-7.7) Lymphocytes # (Auto) 0.9 x10^3/uL (1.0-4.8) Monocytes # (Auto) 0.6 x10^3/uL (0.0-1.1) Eosinophils # (Auto) 0.0 x10^3/uL (0.0-0.7) Basophils # (Auto) 0.0 x10^3/uL (0.0-0.2) Segmented Neutrophils % 87 % (35-66) Band Neutrophils % 6 % (0-9) Lymphocytes % 4 % (24-48) Monocytes % 2 % (0-10) Metamyelocytes % 1 % (0-0) Platelet Estimate Adequate (ADEQUATE) Sodium Level 136 mmol/L (136-145) Potassium Level 5.2 mmol/L (3.5-5.1) Chloride Level 100 mmol/L (98-107) Carbon Dioxide Level 32 mmol/L (21-32) Anion Gap 4 (6-14) Blood Urea Nitrogen 46 mg/dL (7-20) Creatinine 1.4 mg/dL (0.6-1.0) Estimated GFR (Cockcroft-Gault) 36.1 BUN/Creatinine Ratio 33 (6-20) Glucose Level 330 mg/dL (70-99) Calcium Level 8.4 mg/dL (8.5-10.1) Magnesium Level 2.3 mg/dL (1.8-2.4) Total Bilirubin 0.4 mg/dL (0.2-1.0) Aspartate Amino Transf (AST/SGOT) 18 U/L (15-37) Alanine Aminotransferase (ALT/SGPT) 34 U/L (14-59) Alkaline Phosphatase 72 U/L (46-116) Total Protein 6.8 g/dL (6.4-8.2) Albumin 2.6 g/dL (3.4-5.0) Albumin/Globulin Ratio 0.6 (1.0-1.7) Test 03/23/19 20:16 03/23/19 23:42 03/24/19 04:35 03/24/19 08:23 Glucose (Fingerstick) 308 mg/dL (70-99) 257 mg/dL (70-99) 244 mg/dL (70-99) Potassium Level 4.6 mmol/L (3.5-5.1) Test 03/24/19 11:55 03/24/19 17:24 03/24/19 19:12 03/25/19 03:05 Glucose (Fingerstick) 249 mg/dL (70-99) 233 mg/dL (70-99) 279 mg/dL (70-99) White Blood Count 11.3 x10^3/uL (4.0-11.0) Red Blood Count 4.43 x10^6/uL (3.50-5.40) Hemoglobin 12.2 g/dL (12.0-15.5) Hematocrit 37.3 % (36.0-47.0) Mean Corpuscular Volume 84 fL (79-100) Mean Corpuscular Hemoglobin 28 pg (25-35) Mean Corpuscular Hemoglobin Concent 33 g/dL (31-37) Red Cell Distribution Width 14.7 % (11.5-14.5) Platelet Count 172 x10^3/uL (140-400) Neutrophils (%) (Auto) 90 % (31-73) Lymphocytes (%) (Auto) 7 % (24-48) Monocytes (%) (Auto) 3 % (0-9) Eosinophils (%) (Auto) 0 % (0-3) Basophils (%) (Auto) 0 % (0-3) Neutrophils # (Auto) 10.1 x10^3uL (1.8-7.7) Lymphocytes # (Auto) 0.8 x10^3/uL (1.0-4.8) Monocytes # (Auto) 0.4 x10^3/uL (0.0-1.1) Eosinophils # (Auto) 0.0 x10^3/uL (0.0-0.7) Basophils # (Auto) 0.0 x10^3/uL (0.0-0.2) Sodium Level 142 mmol/L (136-145) Potassium Level 4.1 mmol/L (3.5-5.1) Chloride Level 103 mmol/L (98-107) Carbon Dioxide Level 35 mmol/L (21-32) Anion Gap 4 (6-14) Blood Urea Nitrogen 43 mg/dL (7-20) Creatinine 1.0 mg/dL (0.6-1.0) Estimated GFR (Cockcroft-Gault) 53.2 Glucose Level 124 mg/dL (70-99) Calcium Level 8.1 mg/dL (8.5-10.1) Phosphorus Level 3.8 mg/dL (2.6-4.7) Albumin 2.2 g/dL (3.4-5.0) Test 03/25/19 07:26 Glucose (Fingerstick) 218 mg/dL (70-99) Laboratory Tests Test 03/24/19 11:55 03/24/19 17:24 03/24/19 19:12 03/25/19 03:05 Glucose (Fingerstick) 249 mg/dL (70-99) 233 mg/dL (70-99) 279 mg/dL (70-99) White Blood Count 11.3 x10^3/uL (4.0-11.0) Red Blood Count 4.43 x10^6/uL (3.50-5.40) Hemoglobin 12.2 g/dL (12.0-15.5) Hematocrit 37.3 % (36.0-47.0) Mean Corpuscular Volume 84 fL (79-100) Mean Corpuscular Hemoglobin 28 pg (25-35) Mean Corpuscular Hemoglobin Concent 33 g/dL (31-37) Red Cell Distribution Width 14.7 % (11.5-14.5) Platelet Count 172 x10^3/uL (140-400) Neutrophils (%) (Auto) 90 % (31-73) Lymphocytes (%) (Auto) 7 % (24-48) Monocytes (%) (Auto) 3 % (0-9) Eosinophils (%) (Auto) 0 % (0-3) Basophils (%) (Auto) 0 % (0-3) Neutrophils # (Auto) 10.1 x10^3uL (1.8-7.7) Lymphocytes # (Auto) 0.8 x10^3/uL (1.0-4.8) Monocytes # (Auto) 0.4 x10^3/uL (0.0-1.1) Eosinophils # (Auto) 0.0 x10^3/uL (0.0-0.7) Basophils # (Auto) 0.0 x10^3/uL (0.0-0.2) Sodium Level 142 mmol/L (136-145) Potassium Level 4.1 mmol/L (3.5-5.1) Chloride Level 103 mmol/L (98-107) Carbon Dioxide Level 35 mmol/L (21-32) Anion Gap 4 (6-14) Blood Urea Nitrogen 43 mg/dL (7-20) Creatinine 1.0 mg/dL (0.6-1.0) Estimated GFR (Cockcroft-Gault) 53.2 Glucose Level 124 mg/dL (70-99) Calcium Level 8.1 mg/dL (8.5-10.1) Phosphorus Level 3.8 mg/dL (2.6-4.7) Albumin 2.2 g/dL (3.4-5.0) Test 03/25/19 07:26 Glucose (Fingerstick) 218 mg/dL (70-99) Medications Current Medications Albuterol/ Ipratropium (Duoneb) 3 ml 1X ONCE NEB Last administered on 03/17/19 11:51; Start 03/17/19 at 11:45; Stop 03/17/19 at 11:46; Status DC Acetaminophen (Tylenol) 650 mg TID PRN PRN PO PAIN Last administered on 03/20/19 09:22; Start 03/17/19 at 17:00 Alprazolam (Xanax) 0.25 mg PRN Q6HRS PRN PO ANXIETY / AGITATION Last administered on 03/24/19 22:03; Start 03/17/19 at 17:00 Aspirin (Ecotrin) 81 mg DAILY PO Last administered on 03/25/19 08:30; Start 03/18/19 at 09:00 Carvedilol (Coreg) 6.25 mg BIDWMEALS PO Last administered on 03/25/19 08:30; Start 03/17/19 at 17:00 Guaifenesin (Mucinex) 600 mg BID PO Last administered on 03/25/19 08:30; Start 03/17/19 at 21:00 Albuterol Sulfate (Ventolin Neb Soln) 2.5 mg PRN Q4HRS PRN NEB SHORTNESS OF BREATH; Start 03/17/19 at 17:00 Lactobacillus Rhamnosus (Culturelle) 1 cap BID PO Last administered on 03/25/19 08:30; Start 03/17/19 at 21:00 Magnesium Hydroxide (Milk Of Magnesia) 2,400 mg PRN Q12HR PRN PO CONSTIPATION; Start 03/17/19 at 17:00 Nystatin (Nystop) 1 rea BID TP Last administered on 03/24/19 22:07; Start 03/17/19 at 21:00 Budesonide (Pulmicort) 0.5 mg RTBID NEB Last administered on 03/25/19 08:00; Start 03/17/19 at 20:00 Non-Formulary Medication (Lactobacillus Acidophilus (Probiotic)) 1 each BID PO ; Start 03/17/19 at 21:00; Status UNV Potassium Chloride (Klor-Con) 40 meq DAILYWBKFT PO Last administered on 03/23/19 09:01; Start 03/18/19 at 08:00; Status Future hold Atorvastatin Calcium (Lipitor) 5 mg QHS PO Last administered on 03/24/19at 22:04; Start 03/17/19 at 21:00 Methylprednisolone Sodium Succinate (SOLU-Medrol 40MG VIAL) 40 mg Q8HRS IV Last administered on 03/24/19at 05:02; Start 03/17/19 at 17:00; Stop 03/24/19 at 09:01; Status DC Enoxaparin Sodium (Lovenox 30mg Syringe) 30 mg Q24H SQ Last administered on 03/17/19at 17:55; Start 03/17/19 at 17:00; Stop 03/18/19 at 10:56; Status DC Albuterol Sulfate (Ventolin Neb Soln) 2.5 mg RTQID NEB Last administered on 03/25/19 08:00; Start 03/17/19 at 20:00 Enoxaparin Sodium (Lovenox 40mg Syringe) 40 mg Q24H SQ Last administered on 03/24/19 18:09; Start 03/18/19 at 17:00 Furosemide (Lasix) 40 mg 1X ONCE IVP Last administered on 03/21/19 11:26; Start 03/21/19 at 11:00; Stop 03/21/19 at 11:01; Status DC Insulin Human Lispro (HumaLOG) 0-5 UNITS TIDWMEALS SQ Last administered on 03/24/19 18:13; Start 03/23/19 at 12:00; Stop 03/24/19 at 21:22; Status DC Dextrose (Dextrose 50%-Water Syringe) 12.5 gm PRN Q15MIN PRN IV SEE COMMENTS; Start 03/23/19 at 12:00 Furosemide (Lasix) 40 mg 1X ONCE IVP Last administered on 03/23/19at 15:41; Start 03/23/19 at 13:30; Stop 03/23/19 at 13:31; Status DC Insulin Human Lispro (HumaLOG) 6 units 1X ONCE SQ Last administered on 03/23/19at 22:42; Start 03/23/19 at 23:00; Stop 03/23/19 at 23:01; Status DC Methylprednisolone Sodium Succinate (SOLU-Medrol 40MG VIAL) 40 mg Q12HR IV Last administered on 03/25/19at 08:31; Start 03/24/19 at 21:00 Furosemide (Lasix) 40 mg 1X ONCE IVP Last administered on 03/24/19at 16:22; Start 03/24/19 at 15:00; Stop 03/24/19 at 15:01; Status DC Insulin Human Lispro (HumaLOG) 0-5 UNITS TIDWMEALHC SQ Last administered on at 08:36; Start 03/25/19 at 08:00 Insulin Human Lispro (HumaLOG) 12 units 1X ONCE SQ Last administered on 03/24/19at 22:10; Start 03/24/19 at 22:00; Stop 03/24/19 at 22:01; Status DC Active Scripts Active Reported Duoneb 0.5-3(2.5) Mg/3 Ml (Albuterol/Ipratropium) 3 Ml Ampul.neb 3 Ml NEB PRN Q4HRS PRN Nystatin 100,000 Unit/1 Ml Oral.susp 1 Rea PO BID Prednisone 1 Mg Tablet 10 Mg PO DAILY 3 Days Probiotic (Lactobacillus Acidophilus) 1 Each Capsule 1 Each PO BID 10 Days Torsemide 20 Mg Tablet 40 Mg PO BID Potassium Chloride 20 Meq Tablet.er 40 Meq PO DAILY Mucinex (Guaifenesin) 600 Mg Tablet.er 1 Tab PO BID Xanax (Alprazolam) 0.25 Mg Tablet 0.25 Mg PO QHS 90 Days Afrin (Oxymetazoline Hcl) 30 Ml [place] 30 Ml NS PRN Q2HR PRN Tylenol (Acetaminophen) 325 Mg Tablet 650 Mg PO PRN Q8HRS PRN 60 Days Aspir 81 (Aspirin) 81 Mg Tablet. 1 Tab PO DAILY Iron Supplement (Ferrous Sulfate) 325 Mg Tablet 1 Tab PO DAILY Advair 250-50 Diskus (Fluticasone/Salmeterol) 1 Each Disk.w.dev 1 Puff IH BID Duoneb 0.5-3(2.5) Mg/3 Ml (Albuterol/Ipratropium) 3 Ml Ampul.neb 3 Ml IH QID 90 Days Pravastatin Sodium 10 Mg Tablet 1 Tab PO QHS Carvedilol (Carvedilol) 6.25 Mg Tablet 1 Tab PO BID Vitals/I & O Vital Sign - Last 24 Hours 03/24/19 03/24/19 03/24/19 03/24/19 08:49 09:18 11:00 13:00 Temp 98.4 98.4 Pulse 113 119 Resp 19 B/P (MAP) 185/86 151/65 (93) Pulse Ox 96 3 97 O2 Delivery Nasal Cannula Nasal Cannula Nasal Cannula O2 Flow Rate 3.0 97.0 3.0 03/24/19 03/24/19 03/24/19 03/24/19 15:00 16:26 19:50 20:00 Temp 97.9 98.0 97.9 98.0 Pulse 65 69 Resp 19 20 B/P (MAP) 138/103 (115) 140/71 (94) Pulse Ox 96 97 94 O2 Delivery Nasal Cannula Nasal Cannula Nasal Cannula Nasal Cannula O2 Flow Rate 3.0 3.0 3.0 3.0 03/24/19 03/24/19 03/25/19 03/25/19 20:32 23:50 03:15 07:30 Temp 98.0 98.2 98.2 98.0 98.2 98.2 Pulse 68 78 71 Resp 20 20 20 B/P (MAP) 126/41 (69) 145/68 (93) 143/50 (81) Pulse Ox 97 96 95 94 O2 Delivery Nasal Cannula Nasal Cannula Nasal Cannula Nasal Cannula O2 Flow Rate 3.0 3.0 3.0 3.0 03/25/19 03/25/19 03/25/19 08:03 08:04 08:30 Pulse 71 B/P (MAP) 143/50 Pulse Ox 100 100 O2 Delivery Nasal Cannula Nasal Cannula O2 Flow Rate 3.0 3.0 Intake and Output 03/24/19 03/24/19 03/25/19 14:59 22:59 06:59 Intake Total 370 ml 100 ml 450 ml Output Total 250 ml Balance 370 ml -150 ml 450 ml KAYE LANDA MD Mar 25, 2019 08:46
[2019-03-25] MEDS: NYSTATIN TOPICAL POWDER 15GM BOTTLE. TP SCH (09:00)
[2019-03-25 11:31] VITALS: BP 138/70
--- NOTE | 2019-03-25 11:35 | SNU/HH DC ---
DISCHARGE ORDERS DISCHARGE INFORMATION: DISCHARGE DATE: Mar 25, 2019 FINAL DIAGNOSIS Problems Medical Problems: (1) Acute and chronic respiratory failure Status: Acute (2) Acute cor pulmonale Status: Acute (3) Acute exacerbation of chronic obstructive pulmonary disease (COPD) Status: Acute (4) Acute on chronic diastolic HF (heart failure) Status: Acute (5) REY (acute kidney injury) Status: Acute (6) Atelectasis Status: Acute (7) Lower extremity edema Status: Acute (8) Lung nodule Status: Acute (9) Protein-energy malnutrition Status: Acute CONDITION ON DISCHARGE: Stable CODE STATUS: Code Status: Full RESIDENTIAL: SNF STAY <30 DAYS: No POST DISCHARGE ORDERS: ACTIVITY ORDERS: No restrictions, Activity as tolerated WEIGHT BEARING STATUS: No restrictions DIET AFTER DISCHARGE: Cardiac WOUND/INCISION CARE: No wound care needed CHECKS AFTER DISCHARGE: CHECKS AFTER DISCHARGE: Check blood press - daily, Check blood sugar, ac/hs, Weigh Yourself Daily FOLLOW-UP: ADDITIONAL FOLLOW-UP: Manish consult for outpatient cardiac event monitor TREATMENT/EQUIPMENT ORDERS: ADAPTIVE EQUIPMENT NEEDED: Walker RESPIRATORY EQUIPMENT NEEDED: Oxygen Speech Language Pathology For: Evaluation/Treatment DISCHARGE MEDICATIONS: Home Meds Reported Medications Ipratropium/Albuterol Sulfate (DUONEB 0.5-3(2.5) MG/3 ML) 3 Ml Ampul.neb, 3 ML NEB PRN Q4HRS PRN for SHORTNESS OF BREATH, EACH 03/17/19 Nystatin (NYSTATIN) 100,000 Unit/1 Ml Oral.susp, 1 LETICIA PO BID for rash, MISC 03/17/19 Prednisone (PREDNISONE) 1 Mg Tablet, 10 MG PO DAILY for lung inflammation for 3 Days, #30 TAB 11/29/18 Lactobacillus Acidophilus (PROBIOTIC) 1 Each Capsule, 1 EACH PO BID for while on antibiotics for 10 Days, #20 CAP 11/29/18 Torsemide (TORSEMIDE) 20 Mg Tablet, 40 MG PO BID for chf, TAB 11/22/18 Potassium Chloride (POTASSIUM CHLORIDE) 20 Meq Tablet.er, 40 MEQ PO DAILY for low potassium , TAB.SR 11/22/18 Guaifenesin (MUCINEX) 600 Mg Tablet.er, 1 TAB PO BID for copd, #14 TAB 11/22/18 Alprazolam (XANAX) 0.25 Mg Tablet, 0.25 MG PO QHS for anxiety for 90 Days, #90 TAB 0 Refills 11/22/18 Oxymetazoline Hcl (AFRIN) 30 Ml [place], 30 ML NS PRN Q2HR PRN for nose bleeds, SPRAY 11/22/18 Acetaminophen (TYLENOL) 325 Mg Tablet, 650 MG PO PRN Q8HRS PRN for PAIN for 60 Days 04/11/16 Aspirin (ASPIR 81) 81 Mg Tablet.dr, 1 TAB PO DAILY, #30 TAB 5 Refills 04/11/16 Ferrous Sulfate (IRON SUPPLEMENT) 325 Mg Tablet, 1 TAB PO DAILY, #30 TAB 10 Refills 11/10/15 Fluticasone/Salmeterol (ADVAIR 250-50 DISKUS) 1 Each Disk.w.dev, 1 PUFF IH BID, #3 INHALER 3 Refills 05/06/15 Ipratropium/Albuterol Sulfate (DUONEB 0.5-3(2.5) MG/3 ML) 3 Ml Ampul.neb, 3 ML IH QID for SOA for 90 Days 05/06/15 Pravastatin Sodium (PRAVASTATIN SODIUM) 10 Mg Tablet, 1 TAB PO QHS, #30 TAB 5 Refills 09/16/14 Carvedilol (CARVEDILOL ) 6.25 Mg Tablet, 1 TAB PO BID, #180 TAB 1 Refill 09/16/14 KAYE LANDA MD Mar 25, 2019 11:35
--- NOTE | 2019-03-25 11:36 | PDOC3 ---
Discharge Summary Visit Information Date of Admission: Mar 17, 2019 Date of Discharge: Mar 25, 2019 Admitting Diagnosis: Hypoxia, COPD exacerbation Final Diagnosis Problems Medical Problems: (1) Acute and chronic respiratory failure Status: Acute (2) Acute cor pulmonale Status: Acute (3) Acute exacerbation of chronic obstructive pulmonary disease (COPD) Status: Acute (4) Acute on chronic diastolic HF (heart failure) Status: Acute (5) REY (acute kidney injury) Status: Acute (6) Atelectasis Status: Acute (7) Lower extremity edema Status: Acute (8) Lung nodule Status: Acute (9) Protein-energy malnutrition Status: Acute Brief Hospital Course Allergies Allergies Coded Allergies Type Severity Reaction Last Updated Verified doxycycline Allergy Intermediate Rash 02/16/18 Yes I S O L A T I O N *CONTACT* Allergy Unknown 12/12/16 Yes Vital Signs Vital Signs Date Time Temp Pulse Resp B/P (MAP) Pulse Ox O2 Delivery O2 Flow Rate FiO2 03/25/19 11:31 98.3 66 20 138/70 (92) 94 Nasal Cannula 3.0 98.3 Lab Results Laboratory Tests Test 03/23/19 11:40 03/23/19 15:00 03/23/19 16:45 03/23/19 17:44 Glucose (Fingerstick) 254 mg/dL (70-99) 307 mg/dL (70-99) O2 Saturation 96 % (92-99) Arterial Blood pH 7.37 (7.35-7.45) Arterial Blood pCO2 at Patient Temp 54 mmHg (35-46) Arterial Blood pO2 at Patient Temp 92 mmHg (65-108) Arterial Blood HCO3 30 mmol/L (21-28) Arterial Blood Base Excess 4 mmol/L (-3-3) Oxyhemoglobin 95.4 % Methemoglobin 0.3 % (0.0-1.9) Carbon Monoxide, Quantitative 0.3 % (0.0-1.9) FiO2 32 White Blood Count 11.4 x10^3/uL (4.0-11.0) Red Blood Count 4.69 x10^6/uL (3.50-5.40) Hemoglobin 13.1 g/dL (12.0-15.5) Hematocrit 40.1 % (36.0-47.0) Mean Corpuscular Volume 85 fL (79-100) Mean Corpuscular Hemoglobin 28 pg (25-35) Mean Corpuscular Hemoglobin Concent 33 g/dL (31-37) Red Cell Distribution Width 14.7 % (11.5-14.5) Platelet Count 211 x10^3/uL (140-400) Neutrophils (%) (Auto) 86 % (31-73) Lymphocytes (%) (Auto) 8 % (24-48) Monocytes (%) (Auto) 6 % (0-9) Eosinophils (%) (Auto) 0 % (0-3) Basophils (%) (Auto) 0 % (0-3) Neutrophils # (Auto) 9.8 x10^3uL (1.8-7.7) Lymphocytes # (Auto) 0.9 x10^3/uL (1.0-4.8) Monocytes # (Auto) 0.6 x10^3/uL (0.0-1.1) Eosinophils # (Auto) 0.0 x10^3/uL (0.0-0.7) Basophils # (Auto) 0.0 x10^3/uL (0.0-0.2) Segmented Neutrophils % 87 % (35-66) Band Neutrophils % 6 % (0-9) Lymphocytes % 4 % (24-48) Monocytes % 2 % (0-10) Metamyelocytes % 1 % (0-0) Platelet Estimate Adequate (ADEQUATE) Sodium Level 136 mmol/L (136-145) Potassium Level 5.2 mmol/L (3.5-5.1) Chloride Level 100 mmol/L (98-107) Carbon Dioxide Level 32 mmol/L (21-32) Anion Gap 4 (6-14) Blood Urea Nitrogen 46 mg/dL (7-20) Creatinine 1.4 mg/dL (0.6-1.0) Estimated GFR (Cockcroft-Gault) 36.1 BUN/Creatinine Ratio 33 (6-20) Glucose Level 330 mg/dL (70-99) Calcium Level 8.4 mg/dL (8.5-10.1) Magnesium Level 2.3 mg/dL (1.8-2.4) Total Bilirubin 0.4 mg/dL (0.2-1.0) Aspartate Amino Transf (AST/SGOT) 18 U/L (15-37) Alanine Aminotransferase (ALT/SGPT) 34 U/L (14-59) Alkaline Phosphatase 72 U/L (46-116) Total Protein 6.8 g/dL (6.4-8.2) Albumin 2.6 g/dL (3.4-5.0) Albumin/Globulin Ratio 0.6 (1.0-1.7) Test 03/23/19 20:16 03/23/19 23:42 03/24/19 04:35 03/24/19 08:23 Glucose (Fingerstick) 308 mg/dL (70-99) 257 mg/dL (70-99) 244 mg/dL (70-99) Potassium Level 4.6 mmol/L (3.5-5.1) Test 03/24/19 11:55 03/24/19 17:24 03/24/19 19:12 03/25/19 03:05 Glucose (Fingerstick) 249 mg/dL (70-99) 233 mg/dL (70-99) 279 mg/dL (70-99) White Blood Count 11.3 x10^3/uL (4.0-11.0) Red Blood Count 4.43 x10^6/uL (3.50-5.40) Hemoglobin 12.2 g/dL (12.0-15.5) Hematocrit 37.3 % (36.0-47.0) Mean Corpuscular Volume 84 fL (79-100) Mean Corpuscular Hemoglobin 28 pg (25-35) Mean Corpuscular Hemoglobin Concent 33 g/dL (31-37) Red Cell Distribution Width 14.7 % (11.5-14.5) Platelet Count 172 x10^3/uL (140-400) Neutrophils (%) (Auto) 90 % (31-73) Lymphocytes (%) (Auto) 7 % (24-48) Monocytes (%) (Auto) 3 % (0-9) Eosinophils (%) (Auto) 0 % (0-3) Basophils (%) (Auto) 0 % (0-3) Neutrophils # (Auto) 10.1 x10^3uL (1.8-7.7) Lymphocytes # (Auto) 0.8 x10^3/uL (1.0-4.8) Monocytes # (Auto) 0.4 x10^3/uL (0.0-1.1) Eosinophils # (Auto) 0.0 x10^3/uL (0.0-0.7) Basophils # (Auto) 0.0 x10^3/uL (0.0-0.2) Sodium Level 142 mmol/L (136-145) Potassium Level 4.1 mmol/L (3.5-5.1) Chloride Level 103 mmol/L (98-107) Carbon Dioxide Level 35 mmol/L (21-32) Anion Gap 4 (6-14) Blood Urea Nitrogen 43 mg/dL (7-20) Creatinine 1.0 mg/dL (0.6-1.0) Estimated GFR (Cockcroft-Gault) 53.2 Glucose Level 124 mg/dL (70-99) Calcium Level 8.1 mg/dL (8.5-10.1) Phosphorus Level 3.8 mg/dL (2.6-4.7) Albumin 2.2 g/dL (3.4-5.0) Test 03/25/19 07:26 03/25/19 11:23 Glucose (Fingerstick) 218 mg/dL (70-99) 176 mg/dL (70-99) Laboratory Tests Test 03/24/19 11:55 03/24/19 17:24 03/24/19 19:12 03/25/19 03:05 Glucose (Fingerstick) 249 mg/dL (70-99) 233 mg/dL (70-99) 279 mg/dL (70-99) White Blood Count 11.3 x10^3/uL (4.0-11.0) Red Blood Count 4.43 x10^6/uL (3.50-5.40) Hemoglobin 12.2 g/dL (12.0-15.5) Hematocrit 37.3 % (36.0-47.0) Mean Corpuscular Volume 84 fL (79-100) Mean Corpuscular Hemoglobin 28 pg (25-35) Mean Corpuscular Hemoglobin Concent 33 g/dL (31-37) Red Cell Distribution Width 14.7 % (11.5-14.5) Platelet Count 172 x10^3/uL (140-400) Neutrophils (%) (Auto) 90 % (31-73) Lymphocytes (%) (Auto) 7 % (24-48) Monocytes (%) (Auto) 3 % (0-9) Eosinophils (%) (Auto) 0 % (0-3) Basophils (%) (Auto) 0 % (0-3) Neutrophils # (Auto) 10.1 x10^3uL (1.8-7.7) Lymphocytes # (Auto) 0.8 x10^3/uL (1.0-4.8) Monocytes # (Auto) 0.4 x10^3/uL (0.0-1.1) Eosinophils # (Auto) 0.0 x10^3/uL (0.0-0.7) Basophils # (Auto) 0.0 x10^3/uL (0.0-0.2) Sodium Level 142 mmol/L (136-145) Potassium Level 4.1 mmol/L (3.5-5.1) Chloride Level 103 mmol/L (98-107) Carbon Dioxide Level 35 mmol/L (21-32) Anion Gap 4 (6-14) Blood Urea Nitrogen 43 mg/dL (7-20) Creatinine 1.0 mg/dL (0.6-1.0) Estimated GFR (Cockcroft-Gault) 53.2 Glucose Level 124 mg/dL (70-99) Calcium Level 8.1 mg/dL (8.5-10.1) Phosphorus Level 3.8 mg/dL (2.6-4.7) Albumin 2.2 g/dL (3.4-5.0) Test 03/25/19 07:26 03/25/19 11:23 Glucose (Fingerstick) 218 mg/dL (70-99) 176 mg/dL (70-99) Brief Hospital Course Ms Schwartz is an 78-year-old female w/PMHx CHF and ILD/COPD with multiple admissions to the hospital for the same, the most recent 2 months ago who returns from SNF with worsening shortness of breath with cough. Then she was noted with worsening hypoxia She received 2 breathing treatments prior to arrival which did not help. O2 sat 85 on arrival even on her 3L. At SNF normally on 2L of NCO2, but has been up to 3L on a prior hospital stay. She was seen by pulmonology and slowly weaned on steroids, nebs and decreased O2 as tolerated. Underwent chest CT: 1. Somewhat nodular opacities in the left lower lobe and in the right lower lobe are stable since previous exam. 2. Previously seen right lower lobe infiltrate has improved. Demonstrates bilateral reticular opacities and right hemithorax volume loss are stable since the prior exam. Seen by cardiology in consultation, underwent Echo - The left ventricular systolic function is normal. The Ejection Fraction is 60-65%. There is normal LV segmental wall motion. Transmitral Doppler flow pattern is Grade I-abnormal relaxation pattern. Trace mitral regurgitation. Mild tricuspid regurgitation. There is mild pulmonary hypertension. The PA pressure was estimated at 33 mmHg. There is no evidence of significant pericardial effusion. 1. Acute on chronic respiratory failure secondary to acute COPD exacerbation and interstitial lung disease. Continue current treatment per pulmonary team. 2. Cardiac arrhythmia: Telemetry showed brief episodes of wide compress tachycardia that was thought to be nonsustained ventricular tachycardia. However this is irregular it could be atrial fibrillation with aberrancy. Since it is very brief, we will observe for now. We will consider event monitor as an outpatient. Recent 2-D echo in August 2018 showed LVEF 55-60%. 3. Chronic diastolic heart failure, clinically well compensated. 4. Hypertension: Controlled. 5. Hyperlipidemia: Continue statin therapy Greater than 30 minutes spent on discharge. Discharge Information Condition at Discharge: Improved Follow Up: Weeks (2) Disposition/Orders: D/C to Another Facility ([facility]) Scheduled Alprazolam (Xanax) 0.25 Mg Tablet, 0.25 MG PO QHS for anxiety for 90 Days, #90 Ref 0 (Reported) Entered as Reported by: Art Joyce on 11/22/18 0148 Last Action: Continued on 03/17/19 165 by KAYE LANDA MD Aspirin (Aspir 81) 81 Mg Tablet.dr, 1 TAB PO DAILY, #30 Ref 5 (Reported) Entered as Reported by: MERCEDES CARDONA on 04/11/162238 Last Action: Continued on 03/17/19 165 by KAYE LANDA MD Carvedilol (Carvedilol ) 6.25 Mg Tablet, 1 TAB PO BID, #180 Ref 1 (Reported) Entered as Reported by: MARTIN MORALES on 09/16/142013 Last Action: Continued on 03/17/19 165 by KAYE LANDA MD Ferrous Sulfate (Iron Supplement) 325 Mg Tablet, 1 TAB PO DAILY, #30 Ref 10 (Reported) Entered as Reported by: Shweta Luevano on 11/10/15 2316 Fluticasone/Salmeterol (Advair 250-50 Diskus) 1 Each Disk.w.dev, 1 PUFF IH BID, #3 Ref 3 (Reported) Entered as Reported by: DE ALEJANDRO on 05/06/15 0636 Last Action: Converted on 03/17/191650 by KAYE LANDA MD Guaifenesin (Mucinex) 600 Mg Tablet.er, 1 TAB PO BID for copd, #14 (Reported) Entered as Reported by: Art Joyce on 11/22/18147 Last Action: Continued on 03/17/191650 by KAYE LANDA MD Ipratropium/Albuterol Sulfate (Duoneb 0.5-3(2.5) Mg/3 Ml) 3 Ml Ampul.neb, 3 ML IH QID for SOA for 90 Days, (Reported) Entered as Reported by: DE ALEJANDRO on 05/06/15 0635 Last Action: Continued on 03/17/191650 by KAYE LANDA MD Lactobacillus Acidophilus (Probiotic) 1 Each Capsule, 1 EACH PO BID for while on antibiotics for 10 Days, #20 (Reported) Entered as Reported by: MARIAM HANEY on 11/29/18 1115 Last Action: Converted on 03/17/191650 by KAYE LANDA MD Nystatin (Nystatin) 100,000 Unit/1 Ml Oral.susp, 1 LETICIA PO BID for rash, (Reported) Entered as Reported by: IMELDA YUNG on 03/17/191650 Last Action: New Order on 03/17/191650 by IMELDA YUNG Potassium Chloride (Potassium Chloride) 20 Meq Tablet.er, 40 MEQ PO DAILY for low potassium , (Reported) Entered as Reported by: Art Joyce on 11/22/18147 Last Action: Converted on 03/17/191650 by KAYE LANDA MD Pravastatin Sodium (Pravastatin Sodium) 10 Mg Tablet, 1 TAB PO QHS, #30 Ref 5 (Reported) Entered as Reported by: MARTIN MORALES on 09/16/142013 Last Action: Converted on 03/17/191650 by KAYE LANDA MD Prednisone (Prednisone) 1 Mg Tablet, 10 MG PO DAILY for lung inflammation for 3 Days, #30 (Reported) Entered as Reported by: MARIAM HANEY on 11/29/18 1118 Torsemide (Torsemide) 20 Mg Tablet, 40 MG PO BID for chf, (Reported) Entered as Reported by: Art Joyce on 11/22/18147 Scheduled PRN Acetaminophen (Tylenol) 325 Mg Tablet, 650 MG PO PRN Q8HRS PRN for PAIN for 60 Days, (Reported) Entered as Reported by: MERCEDES CARDONA on 04/11/160 Last Action: Continued on 03/17/191650 by KAYE LANDA MD Ipratropium/Albuterol Sulfate (Duoneb 0.5-3(2.5) Mg/3 Ml) 3 Ml Ampul.neb, 3 ML NEB PRN Q4HRS PRN for SHORTNESS OF BREATH, (Reported) Entered as Reported by: IMELDA YUNG on 03/17/191650 Last Action: New Order on 03/17/191650 by IMELDA YUNG Oxymetazoline Hcl (Afrin) 30 Ml [place], 30 ML NS PRN Q2HR PRN for nose bleeds, (Reported) Entered as Reported by: Art Joyce on 11/22/18147 KAYE LANDA MD Mar 25, 2019 11:36
--- NOTE | 2019-03-25 11:58 | PDOC ---
PULMONARY PROGRESS NOTES Subjective sob is better, has less cough, no pain Vitals Vital Signs Date Time Temp Pulse Resp B/P (MAP) Pulse Ox O2 Delivery O2 Flow Rate FiO2 03/25/19 11:31 98.3 66 20 138/70 (92) 94 Nasal Cannula 3.0 98.3 ROS: No Nausea, No Chest Pain, No Abdominal Pain General: Alert, No acute distress HEENT: Other (nc at perrl) Lungs: Crackles Cardiovascular: S1, S2 Abdomen: Soft, Non-tender Neuro Exam: Alert Extremities: Other (2+EDEMA, ANKLE, FEET) Skin: Warm Labs Laboratory Tests Test 03/23/19 15:00 03/23/19 16:45 03/23/19 17:44 03/23/19 20:16 O2 Saturation 96 % (92-99) Arterial Blood pH 7.37 (7.35-7.45) Arterial Blood pCO2 at Patient Temp 54 mmHg (35-46) Arterial Blood pO2 at Patient Temp 92 mmHg (65-108) Arterial Blood HCO3 30 mmol/L (21-28) Arterial Blood Base Excess 4 mmol/L (-3-3) Oxyhemoglobin 95.4 % Methemoglobin 0.3 % (0.0-1.9) Carbon Monoxide, Quantitative 0.3 % (0.0-1.9) FiO2 32 Glucose (Fingerstick) 307 mg/dL (70-99) 308 mg/dL (70-99) White Blood Count 11.4 x10^3/uL (4.0-11.0) Red Blood Count 4.69 x10^6/uL (3.50-5.40) Hemoglobin 13.1 g/dL (12.0-15.5) Hematocrit 40.1 % (36.0-47.0) Mean Corpuscular Volume 85 fL (79-100) Mean Corpuscular Hemoglobin 28 pg (25-35) Mean Corpuscular Hemoglobin Concent 33 g/dL (31-37) Red Cell Distribution Width 14.7 % (11.5-14.5) Platelet Count 211 x10^3/uL (140-400) Neutrophils (%) (Auto) 86 % (31-73) Lymphocytes (%) (Auto) 8 % (24-48) Monocytes (%) (Auto) 6 % (0-9) Eosinophils (%) (Auto) 0 % (0-3) Basophils (%) (Auto) 0 % (0-3) Neutrophils # (Auto) 9.8 x10^3uL (1.8-7.7) Lymphocytes # (Auto) 0.9 x10^3/uL (1.0-4.8) Monocytes # (Auto) 0.6 x10^3/uL (0.0-1.1) Eosinophils # (Auto) 0.0 x10^3/uL (0.0-0.7) Basophils # (Auto) 0.0 x10^3/uL (0.0-0.2) Segmented Neutrophils % 87 % (35-66) Band Neutrophils % 6 % (0-9) Lymphocytes % 4 % (24-48) Monocytes % 2 % (0-10) Metamyelocytes % 1 % (0-0) Platelet Estimate Adequate (ADEQUATE) Sodium Level 136 mmol/L (136-145) Potassium Level 5.2 mmol/L (3.5-5.1) Chloride Level 100 mmol/L (98-107) Carbon Dioxide Level 32 mmol/L (21-32) Anion Gap 4 (6-14) Blood Urea Nitrogen 46 mg/dL (7-20) Creatinine 1.4 mg/dL (0.6-1.0) Estimated GFR (Cockcroft-Gault) 36.1 BUN/Creatinine Ratio 33 (6-20) Glucose Level 330 mg/dL (70-99) Calcium Level 8.4 mg/dL (8.5-10.1) Magnesium Level 2.3 mg/dL (1.8-2.4) Total Bilirubin 0.4 mg/dL (0.2-1.0) Aspartate Amino Transf (AST/SGOT) 18 U/L (15-37) Alanine Aminotransferase (ALT/SGPT) 34 U/L (14-59) Alkaline Phosphatase 72 U/L (46-116) Total Protein 6.8 g/dL (6.4-8.2) Albumin 2.6 g/dL (3.4-5.0) Albumin/Globulin Ratio 0.6 (1.0-1.7) Test 03/23/19 23:42 03/24/19 04:35 03/24/19 08:23 03/24/19 11:55 Glucose (Fingerstick) 257 mg/dL (70-99) 244 mg/dL (70-99) 249 mg/dL (70-99) Potassium Level 4.6 mmol/L (3.5-5.1) Test 03/24/19 17:24 03/24/19 19:12 03/25/19 03:05 03/25/19 07:26 Glucose (Fingerstick) 233 mg/dL (70-99) 279 mg/dL (70-99) 218 mg/dL (70-99) White Blood Count 11.3 x10^3/uL (4.0-11.0) Red Blood Count 4.43 x10^6/uL (3.50-5.40) Hemoglobin 12.2 g/dL (12.0-15.5) Hematocrit 37.3 % (36.0-47.0) Mean Corpuscular Volume 84 fL (79-100) Mean Corpuscular Hemoglobin 28 pg (25-35) Mean Corpuscular Hemoglobin Concent 33 g/dL (31-37) Red Cell Distribution Width 14.7 % (11.5-14.5) Platelet Count 172 x10^3/uL (140-400) Neutrophils (%) (Auto) 90 % (31-73) Lymphocytes (%) (Auto) 7 % (24-48) Monocytes (%) (Auto) 3 % (0-9) Eosinophils (%) (Auto) 0 % (0-3) Basophils (%) (Auto) 0 % (0-3) Neutrophils # (Auto) 10.1 x10^3uL (1.8-7.7) Lymphocytes # (Auto) 0.8 x10^3/uL (1.0-4.8) Monocytes # (Auto) 0.4 x10^3/uL (0.0-1.1) Eosinophils # (Auto) 0.0 x10^3/uL (0.0-0.7) Basophils # (Auto) 0.0 x10^3/uL (0.0-0.2) Sodium Level 142 mmol/L (136-145) Potassium Level 4.1 mmol/L (3.5-5.1) Chloride Level 103 mmol/L (98-107) Carbon Dioxide Level 35 mmol/L (21-32) Anion Gap 4 (6-14) Blood Urea Nitrogen 43 mg/dL (7-20) Creatinine 1.0 mg/dL (0.6-1.0) Estimated GFR (Cockcroft-Gault) 53.2 Glucose Level 124 mg/dL (70-99) Calcium Level 8.1 mg/dL (8.5-10.1) Phosphorus Level 3.8 mg/dL (2.6-4.7) Albumin 2.2 g/dL (3.4-5.0) Test 03/25/19 11:23 Glucose (Fingerstick) 176 mg/dL (70-99) Laboratory Tests Test 03/24/19 17:24 03/24/19 19:12 03/25/19 03:05 03/25/19 07:26 Glucose (Fingerstick) 233 mg/dL (70-99) 279 mg/dL (70-99) 218 mg/dL (70-99) White Blood Count 11.3 x10^3/uL (4.0-11.0) Red Blood Count 4.43 x10^6/uL (3.50-5.40) Hemoglobin 12.2 g/dL (12.0-15.5) Hematocrit 37.3 % (36.0-47.0) Mean Corpuscular Volume 84 fL (79-100) Mean Corpuscular Hemoglobin 28 pg (25-35) Mean Corpuscular Hemoglobin Concent 33 g/dL (31-37) Red Cell Distribution Width 14.7 % (11.5-14.5) Platelet Count 172 x10^3/uL (140-400) Neutrophils (%) (Auto) 90 % (31-73) Lymphocytes (%) (Auto) 7 % (24-48) Monocytes (%) (Auto) 3 % (0-9) Eosinophils (%) (Auto) 0 % (0-3) Basophils (%) (Auto) 0 % (0-3) Neutrophils # (Auto) 10.1 x10^3uL (1.8-7.7) Lymphocytes # (Auto) 0.8 x10^3/uL (1.0-4.8) Monocytes # (Auto) 0.4 x10^3/uL (0.0-1.1) Eosinophils # (Auto) 0.0 x10^3/uL (0.0-0.7) Basophils # (Auto) 0.0 x10^3/uL (0.0-0.2) Sodium Level 142 mmol/L (136-145) Potassium Level 4.1 mmol/L (3.5-5.1) Chloride Level 103 mmol/L (98-107) Carbon Dioxide Level 35 mmol/L (21-32) Anion Gap 4 (6-14) Blood Urea Nitrogen 43 mg/dL (7-20) Creatinine 1.0 mg/dL (0.6-1.0) Estimated GFR (Cockcroft-Gault) 53.2 Glucose Level 124 mg/dL (70-99) Calcium Level 8.1 mg/dL (8.5-10.1) Phosphorus Level 3.8 mg/dL (2.6-4.7) Albumin 2.2 g/dL (3.4-5.0) Test 03/25/19 11:23 Glucose (Fingerstick) 176 mg/dL (70-99) Medications Active Scripts Medications Dose Route/Sig Max Daily Dose Days Date Category Duoneb 0.5-3(2.5) Mg/3 Ml (Albuterol/Ipratropium) 3 Ml Ampul.neb 3 Ml NEB PRN Q4HRS PRN 03/17/19 Reported Nystatin 100,000 Unit/1 Ml Oral.susp 1 Rea PO BID 03/17/19 Reported Prednisone 1 Mg Tablet 10 Mg PO DAILY 3 11/29/18 Reported Probiotic (Lactobacillus Acidophilus) 1 Each Capsule 1 Each PO BID 10 11/29/18 Reported Torsemide 20 Mg Tablet 40 Mg PO BID 11/22/18 Reported Potassium Chloride 20 Meq Tablet.er 40 Meq PO DAILY 11/22/18 Reported Mucinex (Guaifenesin) 600 Mg Tablet.er 1 Tab PO BID 11/22/18 Reported Xanax (Alprazolam) 0.25 Mg Tablet 0.25 Mg PO QHS 90 11/22/18 Reported Afrin (Oxymetazoline Hcl) 30 Ml [place] 30 Ml NS PRN Q2HR PRN 11/22/18 Reported Tylenol (Acetaminophen) 325 Mg Tablet 650 Mg PO PRN Q8HRS PRN 60 04/11/16 Reported Aspir 81 (Aspirin) 81 Mg Tablet.dr 1 Tab PO DAILY 04/11/16 Reported Iron Supplement (Ferrous Sulfate) 325 Mg Tablet 1 Tab PO DAILY 11/10/15 Reported Advair 250-50 Diskus (Fluticasone/Salmeterol) 1 Each Disk.w.dev 1 Puff IH BID 05/06/15 Reported Duoneb 0.5-3(2.5) Mg/3 Ml (Albuterol/Ipratropium) 3 Ml Ampul.neb 3 Ml IH QID 90 05/06/15 Reported Pravastatin Sodium 10 Mg Tablet 1 Tab PO QHS 09/16/14 Reported Carvedilol (Carvedilol) 6.25 Mg Tablet 1 Tab PO BID 09/16/14 Reported Impression . IMPRESSION: 1. AECOPD 2. Acute and chronic hypoxemic respiratory failure./ ACUTE ON CHRONIC COR- PULMONALE 3. Previous pneumonia.MRSA 4. Calcified mediastinal lymph nodes compatible with old granulomatous disease. 5. Skiiesgd-dx-mjracv protein malnutrition. 6. Hypothyroidism. 7. Acute on chronic diastolic heart failure. 8. Acute kidney injury. IMPRESSION: 1. Somewhat nodular opacities in the left lower lobe and in the right lower lobe are stable since previous exam. 2. Previously seen right lower lobe infiltrate has improved. Demonstrates bilateral reticular opacities and right hemithorax volume loss are stable since the prior exam. Plan . CONTINUE THE SAME 1. REVIEWED CT WILL MONITOR FOR NOW 2. Continue current support and treatment. 3. No clinical symptoms and signs of pneumonia. 4. Continue diuresis. 5. DVT prophylaxis. 6. change to oral steroids 7. increase activity discussed w pt/ rn yasmani with dc to rehab SHERON URENA MD Mar 25, 2019 11:58
--- NOTE | 2019-03-25 12:52 | NUR ---
SW following pt. Orders faxed to [facility] and pt will transport via central transport w/c van at 1430. RN notified and Packet on chart.
--- NOTE | 2019-03-25 14:15 | PDOC ---
[employer] 03/25/19 1415: CARDIO Progress Notes Date and Time Date of Service 03/25/19 Time of Evaluation 1110 Subjective Subjective: No Chest Pain, No Palpitations, No Dizziness Vitals Vitals Vital Signs Date Time Temp Pulse Resp B/P (MAP) Pulse Ox O2 Delivery O2 Flow Rate FiO2 03/25/19 13:26 100 Nasal Cannula 3.0 03/25/19 11:31 98.3 66 20 138/70 (92) 98.3 Weight Weight [ ] Input and Output Intake and Output Intake and Output 03/25/19 06:59 Intake Total 920 ml Output Total 250 ml Balance 670 ml Intake Oral 920 ml Output Urine Total 250 ml # Voids 8 Laboratory Labs Laboratory Tests Test 03/24/19 17:24 03/24/19 19:12 03/25/19 03:05 03/25/19 07:26 Glucose (Fingerstick) 233 mg/dL (70-99) 279 mg/dL (70-99) 218 mg/dL (70-99) White Blood Count 11.3 x10^3/uL (4.0-11.0) Red Blood Count 4.43 x10^6/uL (3.50-5.40) Hemoglobin 12.2 g/dL (12.0-15.5) Hematocrit 37.3 % (36.0-47.0) Mean Corpuscular Volume 84 fL (79-100) Mean Corpuscular Hemoglobin 28 pg (25-35) Mean Corpuscular Hemoglobin Concent 33 g/dL (31-37) Red Cell Distribution Width 14.7 % (11.5-14.5) Platelet Count 172 x10^3/uL (140-400) Neutrophils (%) (Auto) 90 % (31-73) Lymphocytes (%) (Auto) 7 % (24-48) Monocytes (%) (Auto) 3 % (0-9) Eosinophils (%) (Auto) 0 % (0-3) Basophils (%) (Auto) 0 % (0-3) Neutrophils # (Auto) 10.1 x10^3uL (1.8-7.7) Lymphocytes # (Auto) 0.8 x10^3/uL (1.0-4.8) Monocytes # (Auto) 0.4 x10^3/uL (0.0-1.1) Eosinophils # (Auto) 0.0 x10^3/uL (0.0-0.7) Basophils # (Auto) 0.0 x10^3/uL (0.0-0.2) Sodium Level 142 mmol/L (136-145) Potassium Level 4.1 mmol/L (3.5-5.1) Chloride Level 103 mmol/L (98-107) Carbon Dioxide Level 35 mmol/L (21-32) Anion Gap 4 (6-14) Blood Urea Nitrogen 43 mg/dL (7-20) Creatinine 1.0 mg/dL (0.6-1.0) Estimated GFR (Cockcroft-Gault) 53.2 Glucose Level 124 mg/dL (70-99) Calcium Level 8.1 mg/dL (8.5-10.1) Phosphorus Level 3.8 mg/dL (2.6-4.7) Albumin 2.2 g/dL (3.4-5.0) Test 03/25/19 11:23 Glucose (Fingerstick) 176 mg/dL (70-99) Physical Exam HEENT: Neck Supple W Full Motion Chest: Symmetric LUNGS: Other (diminished bases) Heart: S1S2, RRR, no gallops, no murmurs Abdomen: Soft N/T Extremities: Other (trace LE edema ) Neurology: alert, oriented, follow commands Assessment Assessment 1. Acute on chronic respiratory failure secondary to AE COPD and ILD. 2. Arrhythmia; has brief episode of wide complex tachycardia. Aberrant AFIB versus NSVT. None further on tele. 3. Chronic diastolic heart failure, compensated. LVEF 55-60%. 4. Hypertension: Controlled. 5. Hyperlipidemia: Continue statin therapy Recommendations Continue oral diuretic ASA, statin, BB Unable to have outpatient event monitor as patient resides at nursing facility Supportive care from a CV standpoint. MAT RUEDA MD 03/25/19 3503: CARDIO Progress Notes Plan Plan Pt. seen and examined. Agree with above [employer] SPECIALIST note. Supportive care from CV standpoint. arrhythmia most consistent with SVT with aberrancy. No further monitoring needed. NEDRA WHITE APRN Mar 25, 2019 14:15 MAT RUEDA MD Mar 25, 2019 17:29
--- NOTE | 2019-03-25 15:48 | CARD ---
MR#: [id number] Date of Study: 03/25/2019 Ordering Physician: FAITH BEAN, Referring Physician: KAYE LANDA, Tech: Daisy Avelar, [facility] APPROVED REPORT EXAM: Two-dimensional and M-mode echocardiogram with Doppler and color Doppler. Other Information Quality : Technically LimitedHR: 65bpm Rhythm : NSRTechnically limited study due to body habitus. INDICATION Pulmonary Hypertention 2D DIMENSIONS RVDd2.7 (2.9-3.5cm)Left Atrium(2D)3.4 (1.6-4.0cm) IVSd1.0 (0.7-1.1cm)Aortic Root(2D)2.6 (2.0-3.7cm) LVDd5.0 (3.9-5.9cm)LVOT Diameter1.9 (1.8-2.4cm) PWd0.9 (0.7-1.1cm)LVDs3.2 (2.5-4.0cm) FS (%) 35.7 %SV78.3 ml LVEF(%)64.9 (>50%) Aortic Valve AoV Peak Nikhil.103.4cm/sAoV VTI20.7cm AO Peak GR.4.3mmHgLVOT Peak Nikhil.91.5cm/s AO Mean GR.2mmHgAVA (VMAX)2.50cm2 JAY (VTI)2.50cm2 Mitral Valve MV E Vwjmiivj77.8cm/sMV DECEL [id number] MV A Suxrntjl303.1cm/sE/A Ratio0.7 Pulmonary Valve PV Peak Zuaccfkz039.4cm/s Tricuspid Valve TR P. Kuznokkm399lb/sRAP [id number] TR Peak Gr.49pwXuXEXO76fuXm LEFT VENTRICLE The left ventricle is normal size. There is normal left ventricular wall thickness. The left ventricu lar systolic function is normal. The Ejection Fraction is 60-65%. There is normal LV segmental wall m otion. Transmitral Doppler flow pattern is Grade I-abnormal relaxation pattern. RIGHT VENTRICLE The right ventricle is normal size. There is normal right ventricular wall thickness. The right ventr icular systolic function is normal. ATRIA The left atrium size is normal. The right atrium size is normal. The interatrial septum is intact wit h no evidence for an atrial septal defect or patent foramen ovale as noted on 2-D or Doppler imaging. AORTIC VALVE The aortic valve is probably trileaflet. The aortic valve is not well visualized. Doppler and Color F low revealed no significant aortic regurgitation. There is no significant aortic valvular stenosis. MITRAL VALVE Mitral annular calcification is mild. There is no evidence of mitral valve prolapse. There is no mitr al valve stenosis. Doppler and Color-flow revealed trace mitral regurgitation. TRICUSPID VALVE The tricuspid valve is normal in structure and function. Doppler and Color Flow revealed mild tricusp id regurgitation. There is mild pulmonary hypertension. The PA pressure was estimated at 33 mmHg. The re is no tricuspid valve prolapse or vegetation. There is no tricuspid valve stenosis. PULMONIC VALVE The pulmonic valve is not well visualized. GREAT VESSELS The aortic root is normal in size. The ascending aorta is normal in size. The IVC is normal in size a nd collapses >50% with inspiration. PERICARDIAL EFFUSION There is no evidence of significant pericardial effusion. Critical Notification Critical Value: No <Conclusion> The left ventricular systolic function is normal. The Ejection Fraction is 60-65%. There is normal LV segmental wall motion. Transmitral Doppler flow pattern is Grade I-abnormal relaxation pattern. Trace mitral regurgitation. Mild tricuspid regurgitation. There is mild pulmonary hypertension. The PA pressure was estimated at 33 mmHg. There is no evidence of significant pericardial effusion. Signed by : Todd Hammond, Electronically Approved : 03/25/2019 15:48:04
[2019-03-25 16:39] VITALS: BP 138/70
[2019-03-25] MEDS: ENOXAPARIN 40 MG/0.4 ML SYRINGE. SQ SCH (16:39)
--- NOTE | 2019-03-25 16:43 | NUR ---
Discharge: Pt DC to [facility] by ROSALEE yip accompanied by staff. IV dc'ed no complications. Left with DC packet and follow up. TR called to Irene MALONE. No concerns.
== END 2019-03-25 16:44 | DRG 190 ==
LOC: ER 11:09 → 6 SOUTH 14:50
PROVIDERS: ADMIT Internal Medicine; ATTEND Internal Medicine
DX: J44.1 Chronic obstructive pulmonary disease with (acute) exacerbation (principal); I26.09 Other pulmonary embolism with acute cor pulmonale; J96.21 Acute and chronic respiratory failure with hypoxia; E43 Unspecified severe protein-calorie malnutrition; I50.33 Acute on chronic diastolic (congestive) heart failure; N17.9 Acute kidney failure, unspecified; J98.11 Atelectasis; J84.9 Interstitial pulmonary disease, unspecified; I11.0 Hypertensive heart disease with heart failure; D64.9 Anemia, unspecified; E03.9 Hypothyroidism, unspecified; E78.00 Pure hypercholesterolemia, unspecified; M19.90 Unspecified osteoarthritis, unspecified site; R91.1 Solitary pulmonary nodule; D71 Functional disorders of polymorphonuclear neutrophils; E78.5 Hyperlipidemia, unspecified; I27.20 Pulmonary hypertension, unspecified; Z79.899 Other long term (current) drug therapy; F41.9 Anxiety disorder, unspecified; Z79.51 Long term (current) use of inhaled steroids; Z79.82 Long term (current) use of aspirin; Z82.49 Family history of ischemic heart disease and other diseases of the circulatory system; Z87.01 Personal history of pneumonia (recurrent); Z88.1 Allergy status to other antibiotic agents; I49.9 Cardiac arrhythmia, unspecified; Z68.36 Body mass index [BMI] 36.0-36.9, adult
CPT/HCPCS: 36415; 36600; 71046; 71250; 80053; 80069; 82805; 82962; 83605; 83735; 83880; 84132; 84443; 84484; 85007; 85025; 87641; 93005; 93306; 94640; 94760; J1650; J1815; J1940; J2920; J7613; J7620; J7626; 97110; 97116; 97530; 99285-25

== ENCOUNTER → 2019-03-29 | Outpatient (CLI) | payer MEDICARE, OTHER ==
[2019-03-25 16:39] VITALS: BP 138/70
[~2019-03-29] MED LIST changes: +IPRA3AMP29 NEB; +NYST100054 PO
[2019-03-29 07:29] LABS: BASO % 0 % (0-3); EOS # 0.2 x10^3/uL (0.0-0.7); EOS % 2 % (0-3); HEMATOCRIT 37.2 % (36.0-47.0); HEMOGLOBIN 11.9 g/dL (12.0-15.5); LYMPH % 16 % (24-48); MEAN CORPUSCULAR HEMOGLOBIN 27 pg (25-35); MEAN CORPUSCULAR HGB CONC 32 g/dL (31-37); MEAN CORPUSCULAR VOLUME 85 fL (79-100); MONO % 8 % (0-9); NEUT % 74 % (31-73); PLATELET COUNT 160 x10^3/uL (140-400); RED BLOOD COUNT 4.36 x10^6/uL (3.50-5.40); RED CELL DISTRIBUTION WIDTH 15.1 % (11.5-14.5); WHITE BLOOD COUNT 12.2 x10^3/uL (4.0-11.0)
[2019-03-29 07:43] LABS: ALBUMIN/GLOBULIN RATIO 0.6 (1.0-1.7); CALCIUM 7.7 mg/dL (8.5-10.1); CREATININE 1.3 mg/dL (0.6-1.0); GFR 39.3; POTASSIUM 3.2 mmol/L (3.5-5.1); TOTAL BILIRUBIN 0.9 mg/dL (0.2-1.0); TOTAL PROTEIN 5.5 g/dL (6.4-8.2)
== END | disposition home or self-care (01) ==
LOC: SPEC 07:20
PROVIDERS: ATTEND Internal Medicine
DX: J96.10 Chronic respiratory failure, unspecified whether with hypoxia or hypercapnia (principal)
CPT/HCPCS: 36415; 80053; 83880; 85025

== ENCOUNTER → 2019-04-10 | Outpatient (CLI) | payer MEDICARE, OTHER ==
[2019-03-25 16:39] VITALS: BP 138/70
[2019-04-10 07:39] LABS: BASO # 0.1 x10^3/uL (0.0-0.2); BASO % 1 % (0-3); EOS # 0.2 x10^3/uL (0.0-0.7); EOS % 4 % (0-3); HEMATOCRIT 34.3 % (36.0-47.0); HEMOGLOBIN 11.2 g/dL (12.0-15.5); LYMPH # 1.9 x10^3/uL (1.0-4.8); LYMPH % 31 % (24-48); MEAN CORPUSCULAR HEMOGLOBIN 28 pg (25-35); MEAN CORPUSCULAR HGB CONC 33 g/dL (31-37); MEAN CORPUSCULAR VOLUME 85 fL (79-100); MONO # 0.5 x10^3/uL (0.0-1.1); MONO % 8 % (0-9); NEUT # 3.5 x10^3/uL (1.8-7.7); NEUT % 56 % (31-73); PLATELET COUNT 176 x10^3/uL (140-400); RED BLOOD COUNT 4.05 x10^6/uL (3.50-5.40); RED CELL DISTRIBUTION WIDTH 14.5 % (11.5-14.5); WHITE BLOOD COUNT 6.2 x10^3/uL (4.0-11.0)
[2019-04-10 07:45] LABS: CALCIUM 8.2 mg/dL (8.5-10.1); CREATININE 1.3 mg/dL (0.6-1.0); GFR 39.3; POTASSIUM 3.1 mmol/L (3.5-5.1)
[2019-04-10 09:56] LABS: % BANDS 7 % (0-9); % BASOS 1 % (0-3); % EOS 2 % (0-5); % LYMPHS 25 % (24-48); % METAS 2 % (0-0); % MONOS 4 % (0-10); % SEGS 59 % (35-66); PLT ESTIMATE INCREASED (ADEQUATE)
== END | disposition home or self-care (01) ==
LOC: SPEC 00:03
PROVIDERS: ATTEND Internal Medicine
DX: J96.10 Chronic respiratory failure, unspecified whether with hypoxia or hypercapnia (principal)
CPT/HCPCS: 36415; 80048; 85007; 85025

== ENCOUNTER → 2019-05-18 | Outpatient (CLI) | payer MEDICARE, OTHER ==
[2019-05-19 20:36] LABS: CALCIUM 8.2 mg/dL (8.5-10.1)
[2019-05-19 20:37] LABS: CREATININE 1.2 mg/dL (0.6-1.0); GFR 43.1; POTASSIUM 4.5 mmol/L (3.5-5.1)
== END | disposition home or self-care (01) ==
LOC: SPEC 12:30
PROVIDERS: ATTEND Internal Medicine
DX: I50.9 Heart failure, unspecified (principal)
CPT/HCPCS: 36415; 80048; 83880

== ENCOUNTER → 2019-06-04 | Outpatient (CLI) | payer MEDICARE, OTHER ==
[2019-06-05 01:12] LABS: HEMOGLOBIN A1C 6.7 % (4.8-5.6)
== END | disposition home or self-care (01) ==
LOC: SPEC 00:27
PROVIDERS: ATTEND Internal Medicine
DX: E11.44 Type 2 diabetes mellitus with diabetic amyotrophy (principal)
CPT/HCPCS: 36415; 83036

== ENCOUNTER → 2019-08-02 | Outpatient (CLI) | payer MEDICARE, OTHER | END | disposition home or self-care (01) | LOC: SPEC 00:47 | PROVIDERS: ATTEND Internal Medicine | DX: E11.44 Type 2 diabetes mellitus with diabetic amyotrophy (principal) | CPT/HCPCS: 36415; 84134 ==

== ENCOUNTER → 2019-10-02 | Outpatient (CLI) | payer MEDICARE, OTHER ==
[~2019-10-02] MED LIST changes: -OXYM30SP NS; +OXYM30SP25 NS; +POTA20TA4 PO; -POTA20TA82 PO
[2019-10-02 13:14] LABS: BASO % 0 % (0-3); BILIRUBIN,URINE NEGATIVE (NEG); CLARITY,URINE CLEAR; COLOR,URINE YELLOW; EOS % 0 % (0-3); HEMATOCRIT 41.1 % (36.0-47.0); HEMOGLOBIN 13.2 g/dL (12.0-15.5); LYMPH # 0.8 x10^3/uL (1.0-4.8); LYMPH % 6 % (24-48); MEAN CORPUSCULAR HEMOGLOBIN 28 pg (25-35); MEAN CORPUSCULAR HGB CONC 32 g/dL (31-37); MEAN CORPUSCULAR VOLUME 87 fL (79-100); MONO # 0.4 x10^3/uL (0.0-1.1); MONO % 3 % (0-9); NEUT # 11.8 x10^3/uL (1.8-7.7); NEUT % 91 % (31-73); NITRITE,URINE NEGATIVE (NEG); PH,URINE 5.5; PLATELET COUNT 231 x10^3/uL (140-400); PROTEIN,URINE NEGATIVE (NEG-TRACE); RED BLOOD COUNT 4.71 x10^6/uL (3.50-5.40); UROBILINOGEN,URINE 0.2 mg/dL (0.2 mg/dL); WHITE BLOOD COUNT 13.1 x10^3/uL (4.0-11.0)
[2019-10-02 13:39] LABS: HYALINE CASTS, URINE MODERATE /HPF; SQUAMOUS EPITHELIAL CELL,UR MOD /LPF
[2019-10-02 13:41] LABS: BACTERIA,URINE MODERATE /HPF (0-FEW); WBC,URINE OCC /HPF (0-4)
[2019-10-02 13:46] LABS: ALBUMIN/GLOBULIN RATIO 0.5 (1.0-1.7); CALCIUM 8.2 mg/dL (8.5-10.1); CREATININE 1.2 mg/dL (0.6-1.0); GFR 43.1; POTASSIUM 4.5 mmol/L (3.5-5.1); TOTAL BILIRUBIN 0.8 mg/dL (0.2-1.0)
[2019-10-02 14:01] LABS: % ATYL 3 % (0-0); % BANDS 40 % (0-9); % LYMPHS 3 % (24-48); % MONOS 2 % (0-10); % SEGS 52 % (35-66)
[2019-10-02 14:03] LABS: PLT ESTIMATE ADEQUATE (ADEQUATE); TOXIC VACUOLATION SLIGHT
== END | disposition home or self-care (01) ==
LOC: SPEC 12:46
PROVIDERS: ATTEND Internal Medicine
DX: J96.10 Chronic respiratory failure, unspecified whether with hypoxia or hypercapnia (principal); D64.9 Anemia, unspecified; Z79.899 Other long term (current) drug therapy
CPT/HCPCS: 36415; 80053; 81001; 85007; 85025; 87086; 87186